=== PATIENT | male | born 1950 | race Caucasian/White ===

== ENCOUNTER 2020-06-11 17:30 | Inpatient (IN) | payer MEDICARE, SELFPAY ==
[2020-06-11 18:01] VITALS: BMI 23.7
[2020-06-11 18:13] VITALS: BMI 23.7
[2020-06-11 18:19] VITALS: BP 159/96; PULSE 84; RESP 18; TEMP 36.4; O2SAT 98
[2020-06-11 20:35] VITALS: PULSE 75; RESP 18; O2SAT 95
[2020-06-11] MEDS: Ipratropium/Albuterol Sulfate 3 ML AMPUL.NEB INHALATION (20:35)
[2020-06-11 21:30] VITALS: BP 147/93; PULSE 79; RESP 18; TEMP 37.1; O2SAT 97
[2020-06-11] MEDS: Heparin Injection (Vial) 5,000 UNIT/ML VIAL 5000 UNIT SC (21:37)
[2020-06-11] MEDS: Atorvastatin Calcium 80 MG Tablet PO (21:37)
[2020-06-11 21:43] VITALS: BP 147/93; PULSE 79
[2020-06-11] MEDS: Metoprolol Tartrate 25 MG Tablet 12.5 MG PO (21:43)
[2020-06-12] VITALS (7 sets, daily range): BP systolic 130–146; BP diastolic 87–92; PULSE 68–75; RESP 12–18; TEMP 36.5; O2SAT 94–97
[2020-06-12 05:51] LABS: Hematocrit 41.2 % (40-54); Hemoglobin 13.4 g/dL (13.0-16.5); Mean Corp Hgb Conc 32.5 g/dL (32-36); Mean Corpuscular Hgb 30.7 pg (27.0-32.0); Mean Corpuscular Volume 94.5 fL (80-94); Platelet Count 235 K/mm3 (150-450); RBC Distribution Width CV 12.1 % (11.6-14.6); RBC Distribution Width SD 41.7 fl (35.1-43.9); Red Blood Count 4.36 M/mm3 (4.6-6.2); White Blood Count 5.3 K/mm3 (4.4-11.0)
[2020-06-12] MEDS: Ipratropium/Albuterol Sulfate 3 ML AMPUL.NEB INHALATION ×3 (05:55→18:45)
[2020-06-12] MEDS: Levothyroxine 75 MCG Tablet PO (06:08)
[2020-06-12 06:25] LABS: AST(SGOT) 37 U/L (15-37); Alanine Aminotransfer ALT/SGPT 31 U/L (16-61); Albumin, Serum 2.6 g/dL (3.2-5.0); Alkaline Phosphatase 71 U/L (45-117); Anion Gap 7 (5-15); BUN 12 mg/dL (7-18); BUN/Creat Ratio 13.2 RATIO (10-20); Chloride 110 mmol/L (98-107); Creatinine, Serum 0.91 mg/dL (0.70-1.30); EST Glomerular Filtration Rate 87 mL/min (>60); Est Glom Filt Rate - Afr Amer 105 mL/min (>60); Estimated Creatinine Clearance 84.14 ml/min; Globulin 2.7 g/dL (2.2-4.2); Glucose 83 mg/dL (74-106); Magnesium 1.7 mg/dL (1.6-2.6); Phosphorus 2.7 mg/dL (2.5-4.9); Potassium 3.5 mmol/L (3.5-5.1); Protein, Total 5.3 g/dL (6.4-8.2); Sodium Level 140 mmol/L (136-145); Thyroid Stim Hormone (TSH) 7.11 uIU/mL (0.358-3.74)
[2020-06-12] MEDS: Senna/Docusate Sodium 1 Tablet PO (08:05)
[2020-06-12] MEDS: Metoprolol Tartrate 25 MG Tablet 12.5 MG PO ×2 (08:05→20:09)
[2020-06-12] MEDS: Losartan Potassium 100 MG Tablet PO (08:05)
[2020-06-12] MEDS: Multivitamins,Therapeutic Tablet 1 TABLET PO (08:05)
[2020-06-12] MEDS: Clopidogrel Bisulfate 75 MG Tablet PO (08:05)
[2020-06-12] MEDS: Heparin Injection (Vial) 5,000 UNIT/ML VIAL 5000 UNIT SC ×2 (08:06→20:12)
--- NOTE | 2020-06-12 11:44 | PCM.HP.STD ---
Problem List (1) Hypertension Status: Chronic (2) Hyperlipidemia Status: Acute (3) Chronic anticoagulation Status: Acute (4) COPD (chronic obstructive pulmonary disease) Status: Chronic (5) Left ventricular hypertrophy Status: Acute (6) Debility Status: Acute (7) Paroxysmal atrial fibrillation Status: Acute (8) Mild aortic stenosis Status: Acute (9) Coronary artery disease Status: Acute (10) History of non-ST elevation myocardial infarction (NSTEMI) Status: Chronic Comment: May 2018 (11) History of PTCA 1 Status: Chronic Comment: PTCA/OSCAR in May 2017 (12) Former smoker Status: Acute (13) Snuff user Status: Acute (14) BPH (benign prostatic hyperplasia) Status: Acute History of Present Illness Date of Admission: 06/11/20 Chief Complaint: Debility secondary to 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 Oli Correa is a 69 year old M with a past medical history of hyperlipidemia, hypertension, chronic anticoagulation with apixaban(which he was non-compliant with at the time of most recent CVA), COPD, hypothyroidism, coronary artery disease, embolic TIA in May 2017 (status post PCI) who recently presented to an ED with c/o R side weakness and right side facial droop. He received TPA in the ED and then was transferred to [facility]. Work-up showed acute infarct within the left frontal and left temporal lobes and multiple chronic lacunar infarcts within the bilateral cerebellar hemispheres. A CTA of the head and neck was concerning for possible carotid web versus dissection to the left cervical internal carotid artery. Echocardiogram showed normal left ventricular size and overall function was grossly normal. He had a transesophageal echocardiogram in May 2017 that showed a hypermobile atrial septum but was negative for shunting. LDL was high at 143 and hemoglobin A1c was 5.7. The patient was supposed to be on Eliquis and Plavix but was not taking Eliquis at the time of his most recent stroke. He was transferred to the acute inpt rehab unit at [facility] on 06/11/20 for > 3 hours of therapy daily to restore him at or near his prior level of function. I reviewed the paperwork from [facility]. He will start Apixaban on 06/13/20. Stiven tells me that he got off the Eliquis because the insurance company would not cover it and he thought Plavix did the same thing.......I explained the difference to him. He was also on a steroid inhaler at home but, insurance quit paying for that as well. He has not followed up with his fruit bar maker in quite a while because he was frustrated. His dtr told the SW she thinks he has been taking meds he had left over in the cupboard and that he was out of several medications. Past Medical History Past Medical History (Chronic Problems): Chronic Problems Hypertension (Chronic) COPD (chronic obstructive pulmonary disease) (Chronic) History of non-ST elevation myocardial infarction (NSTEMI) (Chronic) May 2018 History of PTCA 1 (Chronic) PTCA/OSCAR in May 2017 Allergies codeine Adverse Reaction (Verified 06/11/20 18:18) NEEDS FOLLOW-UP Home Medications: Ambulatory Orders Medication Instructions Recorded Albuterol Inhaler [Ventolin Hfa 2 puff INHALATION Q4H PRN PRN 06/11/20 (SP)] Atorvastatin Calcium [Lipitor] 80 mg PO QHS 06/11/20 Clopidogrel Bisulfate [Plavix] 75 mg PO DAILY 06/11/20 Ipratropium/Albuterol Sulfate 3 ml INHALATION Q4H.RT PRN 06/11/20 [Duoneb] Irbesartan [Avapro] 300 mg PO DAILY 06/11/20 Levothyroxine Sodium [Synthroid] 75 mcg PO DAILY 06/11/20 Metoprolol Tartrate [Lopressor 12.5 mg PO BID 06/11/20 (Beta Carlos)] Multivitamin 1 each PO DAILY 06/11/20 Nitroglycerin 0.4 mg SL Q5M PRN 06/11/20 Sennosides/Docusate Sodium 1 each PO BID 06/11/20 [Senna-S 8.6-50 mg Tablet] Surgical History: noncontributory Lives: Alone - private 1 story home Smoking Status: Former smoker - Quit in June 2010 Tobacco Use: Chew - occasional Alcohol: Occasional Drugs: None - *Family History Maternal History Items: No pertinent history - Maternal grandmother had hypertension. Paternal History Items: Heart Disease Review of Systems Constitutional: Denies: Chills, Fever, Weight Change Eyes: Denies: Blurred vision, Vision Change HEENT: Denies: Difficulty Hearing, Difficulty Swallowing, Head Aches, Nasal Congestion, Sinus Congestion, Sinus Drainage, Sore Throat Cardiovascular: Denies: Chest Pain, Edema, Palpitations Respiratory: Reports: Shortness of Breath, Shortness of breath upon exertion, - - he tells me he takes duonebs regularly at home and they definitely help his breathing.......he had PFT's and saw a snuff grinder and screener in the past but, not for some time. Denies: Cough, Shortness of breath at rest, Sputum production Gastrointestinal: Denies: Abdominal Pain, Nausea, Vomiting Genitourinary: Denies: Dysuria, Incontinence, Retention Musculoskeletal: Denies: Joint Pain, Joint Tenderness Skin: Denies: Jaundice, Pruritis, Rash, Wounds Neurological: Reports: Change in Speech, Slurred speech. Denies: Balance problems, Blurred vision, Double vision, Focal weakness, Headaches, Numbness, Tingling, Tremor, Seizures Psychiatric: Denies: Anxiety, Depression, Homicidal Ideations, Suicidal Ideations Endocrine: Reports: - - He has a hx of hypothyroidism. Denies: Change in Body Habitus, Heat/ Cold Intolerance Hematologic/ Lymphatic: Denies: Easy Bruising, Easy Bleeding, Hx of blood clot Unable to obtain accurate/complete ROS d/t: Speech is halting and ROS took quite a long time but I believe it to be acc VTE Information - Inpt Only VTE Present on Admission: No VTE Mechan Device Prophylaxis: Knee High ALEXANDRA Hose VTE Pharm Prophylaxis ordered?: Yes Patient Problems: Active and Suspected Problems Hyperlipidemia (Acute) Chronic anticoagulation (Acute) Left ventricular hypertrophy (Acute) Debility (Acute) Paroxysmal atrial fibrillation (Acute) Mild aortic stenosis (Acute) Coronary artery disease (Acute) Former smoker (Acute) Snuff user (Acute) BPH (benign prostatic hyperplasia) (Acute) - Physical Exam Vitals/I&O's: Vital Signs Temp Pulse Resp BP Pulse Ox 97.7 F L 68 18 146/87 H 94 06/12/20 07:38 06/12/20 08:05 06/12/20 07:38 06/12/20 08:05 06/12/20 07:38 Oxygen Delivery Method Room Air Weight: 179 lb 10.828 oz Body Mass Index (BMI) 23.7 Intake and Output for Last 24 Hours 06/10/20 06/11/20 06/12/20 23:59 23:59 23:59 Intake Total 240 / 480 600 / 600 Output Total 200 / 200 Balance 240 / 480 400 / 400 General: Alert, Cooperative, No apparent distress, Well developed, Well nourished HEENT: Atraumatic, PERRLA, EOMI, Normocephalic Oral: Moist Mucosa, No Gingival or Mucosal Lesions/ Ulcerations, - - many missing teeth Neck: Supple, No JVD, Negative Carotid Bruits, No Nodes, Trachea Midline, - - Carotids have brisk upstroke and good pulse volume bilaterally Lungs: Clear to auscultation, No rhonchi, No wheeze, No rales, Diminished, - - Not tachypneic, no respiratory distress. Cardiovascular: Regular rate, Regular Rhythm, Normal S1, Normal S2, No murmurs, No rub noted, No Gallop Abdomen: Bowel Sounds Present, Soft, Non Tender, Non-Distended, - - No guarding with palpation Extremities: No clubbing, No cyanosis, No edema, No Calf Tenderness Skin: No rashes, No breakdown Musculoskeletal: No Tenderness to Palpation of Joints or Extremities, No Muscle Wasting Neurological: Cranial nerves II-XII grossly intact, Motor Exam 5/5 strength throughout, - - Pupils are equal round reactive to light, extraocular muscles are intact, no visual field cuts. Good strength with no drift in any extremity. He has dysarthria and aphasia. The aphasia is expressive and receptive. Psych/Mental Status: Normal Affect, Appropriate Laboratory Results 06/12/20 05:33: WBC 5.3, RBC 4.36 L, Hgb 13.4, Hct 41.2, MCV 94.5 H, MCH 30.7, MCHC 32.5, RDW Std Deviation 41.7, RDW Coeff of Leyda 12.1, Plt Count 235, MPV 9.0 06/12/20 05:33: Sodium 140, Potassium 3.5, Chloride 110 H, Carbon Dioxide 23.0, Anion Gap 7, BUN 12, Creatinine 0.91, Estim Creat Clear Calc 84.14, Est GFR (MDRD) Af Amer 105, Est GFR (MDRD) Non-Af 87, BUN/Creatinine Ratio 13.2, Glucose 83, Calcium 8.0 L, Phosphorus 2.7, Magnesium 1.7, Total Bilirubin 0.70, AST 37, ALT 31, Alkaline Phosphatase 71, Total Protein 5.3 L, Albumin 2.6 L, Globulin 2.7, Albumin/Globulin Ratio 1.0, TSH 7.11 H Current Medications Acetaminophen (Acetaminophen 325 Mg Tablet) 650 mg PO Q6H PRN PRN PRN Reason: PAIN 1-10 Albuterol Sulfate (Albuterol Sulfate 8 Gm Inhaler (60 Puffs)) 2 puff INHALATION Q4H PRN PRN PRN Reason: WHEEZING Albuterol/Ipratropium (Ipratropium/Albuterol Sulfate 3 Ml Ampul.Neb) 3 ml INHALATION Q4H.RT PRN PRN Reason: WHEEZING Last Admin: 06/12/20 05:55 Dose: 3 ml Documented by: Apixaban (Apixaban 5 Mg Tablet) 5 mg PO BID [facility] Atorvastatin Calcium (Atorvastatin Calcium 80 Mg Tablet) 80 mg PO QHS [facility] Last Admin: 06/11/20 21:37 Dose: 80 mg Documented by: Bisacodyl (Bisacodyl 10 Mg Suppository) 10 mg RC .PRN X 1 PRN PRN Reason: Constipation Clopidogrel Bisulfate (Clopidogrel Bisulfate 75 Mg Tablet) 75 mg PO DAILY [facility] Last Admin: 06/12/20 08:05 Dose: 75 mg Documented by: Heparin Sodium (Porcine) (Heparin Injection (Vial) 5,000 Unit/Ml Vial) 5,000 unit SC Q12 [facility] Last Admin: 06/12/20 08:06 Dose: 5,000 unit Documented by: Levothyroxine Sodium (Levothyroxine 75 Mcg Tablet) 75 mcg PO DAILY@0600 [facility] Last Admin: 06/12/20 06:08 Dose: 75 mcg Documented by: Losartan Potassium (Losartan Potassium 100 Mg Tablet) 100 mg PO DAILY [facility] Last Admin: 06/12/20 08:05 Dose: 100 mg Documented by: Magnesium Hydroxide (Magnesium Hydroxide 30 Ml Udc) 30 ml PO .PRN X 1 PRN PRN Reason: Constipation Metoprolol Tartrate (Metoprolol Tartrate 25 Mg Tablet) 12.5 mg PO BID [facility] Last Admin: 06/12/20 08:05 Dose: 12.5 mg Documented by: Multivitamins (Multivitamins,Therapeutic Tablet) 1 tablet PO DAILY@0800 [facility] Last Admin: 06/12/20 08:05 Dose: 1 tablet Documented by: Nitroglycerin (Nitroglycerin Sl (Ed/Img/Cath) 0.4 Mg Tablet) 0.4 mg SL Q5M PRN PRN Reason: chest pain Senna/Docusate Sodium (Senna/Docusate Sodium 1 Tablet) 1 tablet PO BID [facility] Last Admin: 06/12/20 08:05 Dose: 1 tablet Documented by: Assessment/Plan All Active Problems Hyperlipidemia (Acute) Chronic anticoagulation (Acute) Left ventricular hypertrophy (Acute) Debility (Acute) Paroxysmal atrial fibrillation (Acute) Mild aortic stenosis (Acute) Coronary artery disease (Acute) Former smoker (Acute) Snuff user (Acute) BPH (benign prostatic hyperplasia) (Acute) Impression's 1. Physical debility secondary to ischemic left temporal and left frontal CVAs. He received TPA. 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 PAF 3. HTN - not adequately controlled at presentation to the rehab unit 4. HLD 5. chronic anticoagulation for AF with Eliquis (was non-compliant with eliquis at the time of the CVA because his insurance would not cover this medication.) 6. COPD 7. Hypothyroidism 8. Glucose intolerance with a HGBA1C of 5.7 recently 9. CAD with a hx of PTCA/OSCAR in May of 2017 - has not seen his fruit bar maker in a long time PLAN PT for gait stability OT for ADL's ST for evaluation Analgesics as needed Bowel protocol Fall precautions Assess for Anxiety/Depression GI prophylaxis not necessary - no hx of PUD and denies N/V/epigastric pain/heartburn DVT prophylaxis - not necessary - he is on Eliquis for PAF. Follow up with PCP, cardiology and neurology following DC from Rehab Inpatient E&M: 79535 Init Hosp L3
--- NOTE | 2020-06-12 12:14 | REHABEVAL_ITS ---
Admission Information Primary Diagnosis:: Aphasia/dysarthria and right-sided weakness secondary to recent ischemic CVA left frontal and temporal areas (left MCA distribution). Status Changes from Prescreening?: No changes Identified Actual Problem List:: Self Care Deficit, Ineffective Communication, Know.Dfct/Disease Process, BP, Hypertension, Alteration/ Air Exchange, Alteration-Leisure Activ. Potential Problem List:: DVT, Bleeding, Infection, UTI, Aspiration, Falls, Skin Integrity, Depression Risk of Complications DVT: ALEXANDRA Chisholm, - - he is on Eliquis for PAF at full dose of 5 mg BID Bleeding: Monitor Lab Values, Nursing to Teach Precautions for anti-coagulation therapy., Wound, if applicable, to be assessed every shift., Stroke patients assessed for lethargy or change in status. Infection: Clinical Staff to Monitor for S/S of infection:, S/S of infection include fever, redness, warmth, etc. Urinary Tract Infection: Monitor for frequency, burning, discomfort, or incontinence., Nursing will obtain urine sample for urinalysis and C&S when ordered. Aspiration: Clinical staff will monitor for coughing, drooling, congestion., Speech will evaluate swallowing and dsyphasia., Nursing will monitor patient swallowing during meals. Falls: Patient will be evaluated for Fall Precautions, Patient will be placed on Fall Precautions as indicated per protocol. Skin Breakdown: Nursing will assess skin daily using assessment tool., Nursing will place on Skin Breakdown Precautions as indicated. Pain: Clinical staff will assess patient's pain level per protocol., Medications will be given, if needed, and the pain level reassessed., Other methods: Mas evelyn, distraction, decrease stimulus, etc. used PRN. Plan of Care Patient requires physician specializing in physical medicine and rehab oversight to provide close medical supervision of rehab issues including: Pain Management, Sleep Problems, Bowel and Bladder, Medical and co-morbidity Management, DVT prophylaxis, Rehabilitation Leadership, Coordination of treatment team Patient needs Physical Therapy: For a minimum of 1 hour, At least 5 out of 7 days Patient needs Physical Therapy to improve:: Mobility, Mobility, Mobility, Strengthening, Transfers, Stretching, ROM, Endurance, Stairs, Gait, Balance Patient needs Occupational Therapy: For a minimum of 1 hour, At least 5 out of 7 days Patient needs Occupational Therapy to improve ADL's incl.: Eating, Grooming, Bathing, Dressing, Toileting, Toilet transfers, Community Reintegration, Higher functioning activities, Household tasks, Adaptive Equipment, Splinting, Other activities as determined Patient requires speech therapy: For a minimum of 1 hour, At least 5 out of 7 days Patient requires speech therapy for: Swallowing, Cognition, Language Skills, Compensatory Strategies Patient requires 24/ Rehabilitation Nursing for: Pain Issues, Identifying and preventing risk factors, Monitoring and reporting current medical conditions, Assisting with ambulation, transfer, and all ADL's, Teaching patients about disease process and medications, Family teaching, Providing safe environment, Bowel and Bladder Issues, Skin integrity, Medication Management Patient needs Dairy Lab Technician/ Case Management for: Discharge Planning, Arranging Home Equipment or Services, Family Interventions Patient needs Dietary and Nutrition Services for: Adequate Nutrition, Nutritional Supplements, Nutritional Education Goals Patient will remain: free from falls, or injury at time of discharge. Patient will perform bed mobility at: MOD I level of assist. Patient will complete transfers from bed to chair at: MOD I level of assist. Patient will ambulate: 100 feet, with MOD I assist, with LRD Patient will complete upper body dressing at: MOD I level of assist. Patient will complete lower body dressing at: MOD I level of assist. Patient will complete toileting at: MOD I level of assist. Patient will perform bathing at: MOD I level of assist. Patient will complete grooming at: MOD I level of assist. Patient will complete home management skills at: MOD I level of assist. Patient will achieve: 12 stairs, at MOD I assist Patient will have pain level of: of 3 or less Patient's skin will: remain intact, free from infection. Patient will receive: adequate nutrition. Discharge Planning Pt Prognosis for Sig. Practical Improv. w/in Reasonable Time: Good Estimated Length of stay (days): 14 Anticipated D/C Destination: Home with Outpt Therapy Was Preadmission Assessment Accurate?: Yes
[2020-06-12] MEDS: Potassium Chloride Oral Tablet 20 MEQ 40 MEQ PO (16:57)
[2020-06-12 17:11] LABS: T4 Free Direct 1.07 ng/dL (0.76-1.46)
[2020-06-12] MEDS: Fluticasone/Salmeterol 232-14 Inhaler 1 PUFF INHALATION (20:00)
[2020-06-12] MEDS: Atorvastatin Calcium 80 MG Tablet PO (20:09)
[2020-06-12] MEDS: Magnesium Chloride 64 MG Delay Rel.Tablet 128 MG PO (21:27)
[2020-06-13] VITALS (9 sets, daily range): BP systolic 143–158; BP diastolic 95–100; PULSE 71–89; RESP 16; TEMP 36.4–36.6; O2SAT 93–99
[2020-06-13] MEDS: 0.9% Saline Lock 10 ML Syringe IV (00:21)
[2020-06-13] MEDS: Ipratropium/Albuterol Sulfate 3 ML AMPUL.NEB INHALATION ×4 (06:45→19:15)
[2020-06-13] MEDS: Levothyroxine 75 MCG Tablet PO (06:50)
[2020-06-13] MEDS: Fluticasone/Salmeterol 232-14 Inhaler 1 PUFF INHALATION ×2 (07:40→22:42)
[2020-06-13] MEDS: Metoprolol Tartrate 25 MG Tablet 12.5 MG PO ×2 (07:41→22:40)
[2020-06-13] MEDS: APIXABAN 5 MG TABLET PO ×2 (07:44→22:42)
[2020-06-13] MEDS: Clopidogrel Bisulfate 75 MG Tablet PO (07:44)
[2020-06-13] MEDS: Senna/Docusate Sodium 1 Tablet PO ×2 (07:44→22:42)
[2020-06-13] MEDS: Potassium Chloride Oral Tablet 20 MEQ PO (07:44)
[2020-06-13] MEDS: Magnesium Chloride 64 MG Delay Rel.Tablet 128 MG PO ×2 (07:44→22:42)
[2020-06-13] MEDS: Losartan Potassium 100 MG Tablet PO (07:45)
[2020-06-13] MEDS: Heparin Injection (Vial) 5,000 UNIT/ML VIAL 5000 UNIT SC ×2 (07:45→22:42)
[2020-06-13] MEDS: Multivitamins,Therapeutic Tablet 1 TABLET PO (07:45)
--- NOTE | 2020-06-13 11:06 | NURSING ---
IV assessed at this time and noted to be red, irritated and edematous. This RN d/c's IV at this time. Area noted to be scabbed with irritation around catheter insertion site and small opening around insertion point. Area documented in shift clinical findings.
--- NOTE | 2020-06-13 14:30 | CHAPLAIN ---
Type of Pastoral Visit _x__ Initial Visit ___ Follow-up Visit ___ On-call Visit ___ General Patient Visit ___ Spiritual Assessment ___ Family Conference ___ Bereavement ___ Rapid Response ___ Code Blue ___ Other (describe below) Pastoral Care Referral From _x__ Patient ___ Family ___ Nurse ___ Physician ___ Concrete Handler ___ Social Work Msw ___ Other (describe below) Sacrament/Intervention _x__ Active listening ___ Anointing ___ Jain ___ Bereavement ___ Communion ___ Opal exploration ___ ___ Life review _x__ Prayer ___ Reconciliation ___ Sacrament of Sick _x__ Supportive presence ___ Wedding ___ Other (describe below) Pastoral Comments
--- NOTE | 2020-06-13 16:01 | CASEMGMT ---
Social Work Completed PHQ-9 with pt. Score: 10/27. Pt denied resources. Discussed antidepressant. Pt would like to have conversation with about side effects. Relayed to Explained and provided Stroke Support Group brochure to pt. Offered ongoing assistance. Pt appreciative. Margaret Marcial, LUMBER LOADER CHICKEN DRESSER
[2020-06-13] MEDS: Atorvastatin Calcium 80 MG Tablet PO (22:41)
[2020-06-14] VITALS (9 sets, daily range): BP systolic 140–159; BP diastolic 99–107; PULSE 59–88; RESP 16–18; TEMP 36.3–36.6; O2SAT 94–98
[2020-06-14] MEDS: Levothyroxine 75 MCG Tablet PO (05:00)
[2020-06-14] MEDS: Albuterol Sulfate 8 gm Inhaler (60 puffs) 2 PUFF INHALATION (05:03)
[2020-06-14] MEDS: Ipratropium/Albuterol Sulfate 3 ML AMPUL.NEB INHALATION ×4 (07:11→19:26)
[2020-06-14] MEDS: Losartan Potassium 100 MG Tablet PO (08:07)
[2020-06-14] MEDS: APIXABAN 5 MG TABLET PO ×2 (08:07→21:20)
[2020-06-14] MEDS: Fluticasone/Salmeterol 232-14 Inhaler 1 PUFF INHALATION ×2 (08:07→21:20)
[2020-06-14] MEDS: Potassium Chloride Oral Tablet 20 MEQ PO (08:07)
[2020-06-14] MEDS: Heparin Injection (Vial) 5,000 UNIT/ML VIAL 5000 UNIT SC ×2 (08:07→21:21)
[2020-06-14] MEDS: Multivitamins,Therapeutic Tablet 1 TABLET PO (08:07)
[2020-06-14] MEDS: Metoprolol Tartrate 25 MG Tablet 12.5 MG PO (08:07)
[2020-06-14] MEDS: Clopidogrel Bisulfate 75 MG Tablet PO (08:08)
[2020-06-14] MEDS: Magnesium Chloride 64 MG Delay Rel.Tablet 128 MG PO ×2 (08:08→21:22)
[2020-06-14] MEDS: amLODIPine 5 MG Tablet PO (11:34)
[2020-06-14] MEDS: Metoprolol Tartrate 25 MG Tablet PO ×2 (15:07→21:21)
[2020-06-14] MEDS: Atorvastatin Calcium 80 MG Tablet PO (21:21)
[2020-06-15] VITALS (9 sets, daily range): BP systolic 113–133; BP diastolic 59–99; PULSE 64–86; RESP 16–18; TEMP 36.5–36.6; O2SAT 92–96; BMI 23.7
--- NOTE | 2020-06-15 04:24 | NURSING ---
REVIEWED AND AGREE WITH SPINNING SUPERVISOR'S FUNCTIONAL ASSESSMENT AND HANDOFF CHARTING.
[2020-06-15] MEDS: Levothyroxine 75 MCG Tablet PO (04:58)
[2020-06-15] MEDS: Metoprolol Tartrate 25 MG Tablet PO ×3 (04:58→22:09)
[2020-06-15] MEDS: Ipratropium/Albuterol Sulfate 3 ML AMPUL.NEB INHALATION ×4 (07:00→19:50)
[2020-06-15] MEDS: Fluticasone/Salmeterol 232-14 Inhaler 1 PUFF INHALATION ×2 (07:46→22:08)
[2020-06-15] MEDS: Clopidogrel Bisulfate 75 MG Tablet PO (07:47)
[2020-06-15] MEDS: Multivitamins,Therapeutic Tablet 1 TABLET PO (07:47)
[2020-06-15] MEDS: Losartan Potassium 100 MG Tablet PO (07:47)
[2020-06-15] MEDS: Potassium Chloride Oral Tablet 20 MEQ PO (07:47)
[2020-06-15] MEDS: amLODIPine 5 MG Tablet PO (07:47)
[2020-06-15] MEDS: Heparin Injection (Vial) 5,000 UNIT/ML VIAL 5000 UNIT SC ×2 (07:47→22:09)
[2020-06-15] MEDS: Magnesium Chloride 64 MG Delay Rel.Tablet 128 MG PO ×2 (07:48→22:11)
[2020-06-15] MEDS: APIXABAN 5 MG TABLET PO ×2 (07:48→22:08)
--- NOTE | 2020-06-15 11:25 | PCM.PN.BLA ---
Progress Note Stiven was seen on team rounds today. His daughters participated in a conference call for team rounds. Afebrile VSS-blood pressures are not adequately controlled and diastolics are ranging from 92-107 over the past 3 days. Maintaining appropriate oxygen saturation on RA Oral intake is fair to adequate Discussed with nursing - no problems that need addressed Reviewed the PT/OT/ST notes the ST revealed to me that Stiven said he sometimes wakes himself up with his snoring. When he wakes up in the middle of the night snoring he feels SOB. He does not feel rested in the morning when he gets up. He has never had a sleep study. He has been depressed in the past and after the heart attack he was on an antidepressant but he later discontinued himself. He tells me that he has been reflecting on how he has been feeling and he admits that he has been depressed lately which has likely contributed to him not taking care of himself......he has not been taking his medications and not Following up with his demand planning analyst. Medication list reviewed. alert, appropriate, speech is halting and he has difficulty word finding but we were able to communicate effectively. Lungs - diminished but CTA HRRR, no gallop abd - soft and NT no edema and no calf tenderness. No GRIGGS and no CP or palpitations. Impressions 1. Embolic CVA to the L MCA with stroke in the L temporal and frontal lobes. He received TPA. He is doing very well with PT and OT. 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 2. He has in the past been on chronic anticoagulation with Eliquis but he stopped taking it when the insurance company stopped paying for it and he thought Plavix would do the job. It is not clear to me whether he has ever been diagnosed with AF. his dtr told me he was told he had a PFO but, he later had a CARY and he did not have a PFO but he had aneursymal dilation of the atrial septum. 3. CAD 4. Depression - recurrent 5. aphasia and apraxia We discussed antidepressants and I recommended zoloft because it will treat both anxiety and depression and is generally well tolerated. We discussed the side effects and then his dtr told him that she takes Zoloft and she has no adverse reactions and it helps her. He is agreeable to starting Zoloft. I then discussed MARK and how it can cause depression, chronic fatigue and AF. He is agreeable to having a sleep study post DC. will start applying oxygen at night and see if this helps with the fatigue in the AM. He has agreed to stay the entire time the insurance company has given him to get him as close to his baseline as possible prior to going home for OP ST. 30 day event monitor at [place] and he will follow up with [facility] for his cardiology care. He also requested we recommend a new PCP for him. STROKE Vital Signs/Narrative: Vital Signs Temp Pulse Resp BP Pulse Ox 06/15/20 09:26 98 F 64 16 133/99 H 94 06/15/20 07:47 64 133/99 H Inpatient E&M: 25748 Subs Hosp L2
--- NOTE | 2020-06-15 12:12 | CASEMGMT ---
Social Work IDT met with patient and three dtrs via conference call for Team meeting. Discussed patient's progress in therapy and nursing. Pt progressing well physically. Pt's major deficits are with ST with following directions, needing extra time to process, and expressive aphasia. Explained Medicare approved 14 days with EDC 06/25. The goal is for pt to DC home alone, however, discussed safety in emergency situations and being able to accurately express his speech. Pt agrees and agreeable to remain. Will ReTeam and SW to continue to follow. Margaret Marcial, SUPERVISOR AREA DIRECTOR BUSINESS TRAVEL
[2020-06-15] MEDS: Atorvastatin Calcium 80 MG Tablet PO (22:09)
[2020-06-16] VITALS (9 sets, daily range): BP systolic 117–124; BP diastolic 67–76; PULSE 68–88; RESP 16–18; TEMP 36.6–36.7; O2SAT 95–96; BMI 23.7
[2020-06-16] MEDS: Metoprolol Tartrate 25 MG Tablet PO ×3 (06:51→20:25)
[2020-06-16] MEDS: Levothyroxine 75 MCG Tablet PO (06:51)
[2020-06-16] MEDS: Losartan Potassium 100 MG Tablet PO (09:06)
[2020-06-16] MEDS: Potassium Chloride Oral Tablet 20 MEQ PO (09:06)
[2020-06-16] MEDS: Multivitamins,Therapeutic Tablet 1 TABLET PO (09:06)
[2020-06-16] MEDS: Heparin Injection (Vial) 5,000 UNIT/ML VIAL 5000 UNIT SC ×2 (09:07→20:24)
[2020-06-16] MEDS: APIXABAN 5 MG TABLET PO ×2 (09:07→20:23)
[2020-06-16] MEDS: Magnesium Chloride 64 MG Delay Rel.Tablet 128 MG PO ×2 (09:07→20:25)
[2020-06-16] MEDS: Fluticasone/Salmeterol 232-14 Inhaler 1 PUFF INHALATION ×2 (09:07→20:24)
[2020-06-16] MEDS: Clopidogrel Bisulfate 75 MG Tablet PO (09:07)
[2020-06-16] MEDS: amLODIPine 5 MG Tablet PO (09:07)
[2020-06-16] MEDS: Sertraline 50 MG Tablet PO (09:08)
[2020-06-16] MEDS: Ipratropium/Albuterol Sulfate 3 ML AMPUL.NEB INHALATION ×2 (11:37→19:54)
--- NOTE | 2020-06-16 11:43 | PCM.PN.BLA ---
Progress Note Afebrile VSS-blood pressure is well controlled now with changes in the antihypertensives. Heart rate is within normal limits. Maintaining appropriate oxygen saturation on RA Oral intake is good Discussed with nursing - no problems that need addressed Reviewed the PT/OT/ST notes Medication list reviewed. Stiven states he slept well last night. He denies headache. He started Zoloft this morning and has no complaints at this time. He denies shortness of breath, chest pain, dysuria, abdominal pain, nausea/vomiting. Alert, appropriate, appears comfortable sitting in the recliner watching TV Lungs-clear to auscultation throughout with mild decrease in air exchange Heart-regular rate and rhythm, no murmur, no gallop He has a very large resolving bruise on the lateral chest and right flank. Abdomen-soft, nontender, nondistended, no guarding with palpation No calf tenderness No peripheral edema No rashes, no skin breakdown Walking without an assistive device in the halls Impressions 1. Embolic CVA to the L MCA with stroke in the L temporal and frontal lobes. He received TPA. He is doing very well with PT and OT. 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 2. He has in the past been on chronic anticoagulation with Eliquis but he stopped taking it when the insurance company stopped paying for it and he thought Plavix would do the job. It is not clear to me whether he has ever been diagnosed with AF. his dtr told me he was told he had a PFO but, he later had a CARY and he did not have a PFO but he had aneursymal dilation of the atrial septum. 3. CAD 4. Depression - recurrent 5. aphasia and apraxia 6. snores and wakes himself up at night snoring.....SOB when he wakes up. 7. COPD Continue Zoloft He is now being on Advair every 12 hours for a few days so will discontinue scheduled DuoNeb aerosols but keep them every 4 hours as needed wheezing or shortness of breath. Continue speech therapy Needs a sleep study and PFTs/follow-up with pulmonary medicine following discharge 30-day event monitor at discharge STROKE Vital Signs/Narrative: Vital Signs Temp Pulse Resp BP Pulse Ox 06/16/20 08:07 98 F 68 18 117/76 95 Inpatient E&M: 67462 Subs Hosp L2
[2020-06-16] MEDS: Atorvastatin Calcium 80 MG Tablet PO (20:24)
[2020-06-17] VITALS (7 sets, daily range): BP systolic 135–143; BP diastolic 86–95; PULSE 60–78; RESP 16; TEMP 36.4; O2SAT 94–96; BMI 23.7
[2020-06-17] MEDS: Levothyroxine 75 MCG Tablet PO (05:59)
[2020-06-17] MEDS: Metoprolol Tartrate 25 MG Tablet PO ×3 (06:01→21:44)
[2020-06-17] MEDS: Fluticasone/Salmeterol 232-14 Inhaler 1 PUFF INHALATION ×2 (08:35→21:44)
[2020-06-17] MEDS: Potassium Chloride Oral Tablet 20 MEQ PO (08:35)
[2020-06-17] MEDS: Magnesium Chloride 64 MG Delay Rel.Tablet 128 MG PO ×2 (08:35→21:45)
[2020-06-17] MEDS: amLODIPine 5 MG Tablet PO (08:36)
[2020-06-17] MEDS: Multivitamins,Therapeutic Tablet 1 TABLET PO (08:36)
[2020-06-17] MEDS: APIXABAN 5 MG TABLET PO ×2 (08:37→21:44)
[2020-06-17] MEDS: Losartan Potassium 100 MG Tablet PO (08:37)
[2020-06-17] MEDS: Clopidogrel Bisulfate 75 MG Tablet PO (08:37)
[2020-06-17] MEDS: Sertraline 50 MG Tablet PO (08:37)
[2020-06-17] MEDS: Ipratropium/Albuterol Sulfate 3 ML AMPUL.NEB INHALATION ×2 (12:40→20:30)
[2020-06-17] MEDS: Atorvastatin Calcium 80 MG Tablet PO (21:44)
[2020-06-18] VITALS (7 sets, daily range): BP systolic 120–122; BP diastolic 63–79; PULSE 65–89; RESP 16; TEMP 35.8–37; O2SAT 95–96; BMI 23.7
--- NOTE | 2020-06-18 04:32 | NURSING ---
REVIEWED AND AGREE WITH STOCK CLIPPER'S FUNCTIONAL ASSESSMENT AND HANDOFF CHARTING.
[2020-06-18] MEDS: Levothyroxine 75 MCG Tablet PO (05:55)
[2020-06-18] MEDS: Metoprolol Tartrate 25 MG Tablet PO ×3 (05:55→21:35)
[2020-06-18] MEDS: Ipratropium/Albuterol Sulfate 3 ML AMPUL.NEB INHALATION ×2 (07:30→17:38)
[2020-06-18] MEDS: Potassium Chloride Oral Tablet 20 MEQ PO (08:57)
[2020-06-18] MEDS: Losartan Potassium 100 MG Tablet PO (08:57)
[2020-06-18] MEDS: amLODIPine 5 MG Tablet PO (08:58)
[2020-06-18] MEDS: Magnesium Chloride 64 MG Delay Rel.Tablet 128 MG PO ×2 (08:58→21:35)
[2020-06-18] MEDS: Multivitamins,Therapeutic Tablet 1 TABLET PO (08:59)
[2020-06-18] MEDS: APIXABAN 5 MG TABLET PO ×2 (08:59→21:35)
[2020-06-18] MEDS: Sertraline 50 MG Tablet PO (08:59)
[2020-06-18] MEDS: Fluticasone/Salmeterol 232-14 Inhaler 1 PUFF INHALATION ×2 (09:00→21:35)
[2020-06-18] MEDS: Clopidogrel Bisulfate 75 MG Tablet PO (09:00)
[2020-06-18] MEDS: Atorvastatin Calcium 80 MG Tablet PO (21:35)
[2020-06-19 00:04] VITALS: BMI 23.7
[2020-06-19 06:07] VITALS: BP 131/69; PULSE 66
[2020-06-19] MEDS: Metoprolol Tartrate 25 MG Tablet PO ×3 (06:07→20:48)
[2020-06-19] MEDS: Levothyroxine 75 MCG Tablet PO (06:08)
[2020-06-19] MEDS: Potassium Chloride Oral Tablet 20 MEQ PO (07:45)
[2020-06-19] MEDS: Multivitamins,Therapeutic Tablet 1 TABLET PO (07:45)
[2020-06-19] MEDS: Losartan Potassium 100 MG Tablet PO (07:45)
[2020-06-19] MEDS: Magnesium Chloride 64 MG Delay Rel.Tablet 128 MG PO ×2 (07:46→20:47)
[2020-06-19] MEDS: Clopidogrel Bisulfate 75 MG Tablet PO (07:46)
[2020-06-19] MEDS: amLODIPine 5 MG Tablet PO (07:46)
[2020-06-19] MEDS: Fluticasone/Salmeterol 232-14 Inhaler 1 PUFF INHALATION ×2 (07:46→20:46)
[2020-06-19] MEDS: Sertraline 50 MG Tablet PO (07:48)
[2020-06-19] MEDS: APIXABAN 5 MG TABLET PO ×2 (07:48→20:47)
[2020-06-19 08:36] VITALS: BP 131/69; PULSE 66; RESP 17; TEMP 36.6; O2SAT 95
[2020-06-19 10:00] VITALS: PULSE 71; RESP 16
[2020-06-19] MEDS: Ipratropium/Albuterol Sulfate 3 ML AMPUL.NEB INHALATION (10:00)
--- NOTE | 2020-06-19 10:09 | CASEMGMT ---
Social Work Left message with dtr to discuss DC plans. IDT recommending 23/09 supervision and pt to DC 06/25. Will continue to follow. Margaret Marcial, STAFF CERTIFIED NURSE MIDWIFE POWER EQUIPMENT MECHANICS INSTRUCTOR
--- NOTE | 2020-06-19 13:51 | CASEMGMT ---
Social Work Dtr returned phone call. Discussed DC plans. Inquired about 23/09 supervision at DC. Dtr stated she just quit her job to go back to school multimedia instructional designer, thus, the pt can DC home with her. The times she is not home or available, her sister lives close by and can assist with pt. Inquired about outpatient ST vs C. Dtr able to transport to [facility], [facility]. SW will make referral. Will ReTeam and finalize DC date and plans. Margaret Marcial ,WELDER FITTER APPRENTICE DIRECTOR FURNITURE
[2020-06-19 14:16] VITALS: BP 106/65; PULSE 70
[2020-06-19 14:44] VITALS: BMI 23.7
[2020-06-19 19:34] VITALS: BP 132/84; PULSE 57; RESP 18; TEMP 36.4; O2SAT 95
[2020-06-19] MEDS: Atorvastatin Calcium 80 MG Tablet PO (20:47)
[2020-06-19 20:48] VITALS: BP 132/84; PULSE 57
[2020-06-19 23:10] VITALS: BMI 23.7
[2020-06-20] VITALS (7 sets, daily range): BP systolic 118–129; BP diastolic 63–83; PULSE 60–86; RESP 16–18; TEMP 36.8–36.9; O2SAT 93–99; BMI 23.7
--- NOTE | 2020-06-20 04:46 | NURSING ---
Reviewed and agree with HEAVY EQUIPMENT SERVICE MANAGER documentation and charting.
[2020-06-20] MEDS: Levothyroxine 75 MCG Tablet PO (05:49)
[2020-06-20] MEDS: Metoprolol Tartrate 25 MG Tablet PO ×3 (05:49→20:50)
[2020-06-20] MEDS: Ipratropium/Albuterol Sulfate 3 ML AMPUL.NEB INHALATION ×2 (06:47→16:25)
[2020-06-20] MEDS: Clopidogrel Bisulfate 75 MG Tablet PO (09:14)
[2020-06-20] MEDS: Magnesium Chloride 64 MG Delay Rel.Tablet 128 MG PO ×2 (09:14→20:51)
[2020-06-20] MEDS: APIXABAN 5 MG TABLET PO ×2 (09:14→20:51)
[2020-06-20] MEDS: Potassium Chloride Oral Tablet 20 MEQ PO (09:14)
[2020-06-20] MEDS: Losartan Potassium 100 MG Tablet PO (09:14)
[2020-06-20] MEDS: Multivitamins,Therapeutic Tablet 1 TABLET PO (09:14)
[2020-06-20] MEDS: amLODIPine 5 MG Tablet PO (09:14)
[2020-06-20] MEDS: Fluticasone/Salmeterol 232-14 Inhaler 1 PUFF INHALATION ×2 (09:15→20:50)
[2020-06-20] MEDS: Sertraline 50 MG Tablet PO (09:22)
[2020-06-20] MEDS: Atorvastatin Calcium 80 MG Tablet PO (20:51)
[2020-06-21] VITALS (8 sets, daily range): BP systolic 105–116; BP diastolic 67–80; PULSE 62–69; RESP 16–18; TEMP 36.4–36.8; O2SAT 93–99; BMI 23.7
--- NOTE | 2020-06-21 00:53 | NURSING ---
Reviewed and agree with DIRECTOR OF REIMBURSEMENT documentation and charting.
[2020-06-21] MEDS: Metoprolol Tartrate 25 MG Tablet PO ×3 (05:11→19:47)
[2020-06-21] MEDS: Levothyroxine 75 MCG Tablet PO (05:11)
[2020-06-21] MEDS: Ipratropium/Albuterol Sulfate 3 ML AMPUL.NEB INHALATION ×2 (06:03→14:52)
[2020-06-21] MEDS: Sertraline 50 MG Tablet PO (07:56)
[2020-06-21] MEDS: Multivitamins,Therapeutic Tablet 1 TABLET PO (07:56)
[2020-06-21] MEDS: Magnesium Chloride 64 MG Delay Rel.Tablet 128 MG PO ×2 (07:56→19:48)
[2020-06-21] MEDS: APIXABAN 5 MG TABLET PO ×2 (07:56→19:48)
[2020-06-21] MEDS: Losartan Potassium 100 MG Tablet PO (07:56)
[2020-06-21] MEDS: Clopidogrel Bisulfate 75 MG Tablet PO (07:57)
[2020-06-21] MEDS: Potassium Chloride Oral Tablet 20 MEQ PO (07:57)
[2020-06-21] MEDS: Fluticasone/Salmeterol 232-14 Inhaler 1 PUFF INHALATION ×2 (07:57→19:48)
[2020-06-21] MEDS: amLODIPine 5 MG Tablet PO (07:57)
--- NOTE | 2020-06-21 09:44 | PCM.PN.BLA ---
Progress Note Afebrile VSS-blood pressure is well controlled Maintaining appropriate oxygen saturation on RA Oral intake is good Discussed with nursing - no problems that need addressed Reviewed the PT/OT/ST notes. Doing incredibly well with PT and OT. Has ambulated >2,000 ft on various surfaces with no AD and no LOB. He has ascended and descended 20 steps with no HR and no LOB. He is progressing with ST but having trouble with comprehension yet and leif with numbers per the pt. Medication list reviewed. Denies GRIGGS, N/v/lightheadedness, CP SOB, cough. Sleeping and eating well. Wants things to progress faster but, realizes he is making progress and it is going to take time. Less trouble word finding when having a conversation with me. Alert and oriented X 3. 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 snores loudly and STOP BANG score puts him at high risk for MARK 4. CAD 5. COPD 6. Depression 7. PAF - ? related to untreated sleep apnea? Continue therapy get him scheduled for an OP sleep study post discharge continue therapy Continue the Zoloft - he is tolerating without adverse side effects STROKE Vital Signs/Narrative: Vital Signs Temp Pulse Resp BP Pulse Ox 06/21/20 08:02 97.5 F L 62 16 116/80 93 06/21/20 06:04 65 16 Inpatient E&M: 68213 Subs Hosp L2
[2020-06-21] MEDS: Atorvastatin Calcium 80 MG Tablet PO (19:47)
[2020-06-22 05:22] VITALS: BP 147/82; PULSE 66
[2020-06-22] MEDS: Metoprolol Tartrate 25 MG Tablet PO (05:22)
[2020-06-22] MEDS: Levothyroxine 75 MCG Tablet PO (05:22)
[2020-06-22 06:34] VITALS: PULSE 56; RESP 12
[2020-06-22] MEDS: Ipratropium/Albuterol Sulfate 3 ML AMPUL.NEB INHALATION ×2 (06:34→13:42)
[2020-06-22] MEDS: Losartan Potassium 100 MG Tablet PO (07:50)
[2020-06-22] MEDS: Sertraline 50 MG Tablet PO (07:50)
[2020-06-22] MEDS: Multivitamins,Therapeutic Tablet 1 TABLET PO (07:50)
[2020-06-22] MEDS: Fluticasone/Salmeterol 232-14 Inhaler 1 PUFF INHALATION ×2 (07:50→21:07)
[2020-06-22] MEDS: Potassium Chloride Oral Tablet 20 MEQ PO (07:50)
[2020-06-22] MEDS: amLODIPine 5 MG Tablet PO (07:50)
[2020-06-22] MEDS: Clopidogrel Bisulfate 75 MG Tablet PO (07:50)
[2020-06-22] MEDS: Magnesium Chloride 64 MG Delay Rel.Tablet 128 MG PO ×2 (07:50→21:08)
[2020-06-22] MEDS: APIXABAN 5 MG TABLET PO ×2 (07:50→21:09)
[2020-06-22 07:54] VITALS: BP 147/82; PULSE 64; RESP 16; TEMP 36.2; O2SAT 94
[2020-06-22 09:56] VITALS: BMI 23.7
--- NOTE | 2020-06-22 11:06 | PCM.PN.BLA ---
Progress Note Stiven was seen on TEAM rounds today. His dtr Kailey was present in the room and his other daughters participated by conference call. Afebrile VSS Maintaining appropriate oxygen saturation on RA Oral intake is good He is sleeping well at night Discussed with nursing - no problems that need addressed Reviewed the PT/OT/ST notes Medication list reviewed. Stiven has no complaints today. He is smiling and talkative. He is enunciating much better and has less difficulty with word finding. Lungs - decreased but CTA HRRR - no gallop and no MM abd - soft and NT no edema no rashes and no calf pain Impressions 1. post stroke debility 2. COPD 3. anxiety/depression 4. HTN 5. CAD 6. allergic rhinitis - takes Benadryl frequently in the spring and summer Family asked about tier 2 vs tier 1 drugs......will send a med list down to the retail pharmacy and hve them check for insurance coverage. Try Atrovent nasal spray for rhinitis - I explained to him that antihistamines are a high risk drug on the Beer's criteria and I would prefer trying something topical so it does not interfere with cognition. Plan DC for Friday. He will be staying with Kailey until he is safe to go home by himself. [facility] Schedule an appt with Dr. Lanier to be his new PCP sleep study as OP STROKE Vital Signs/Narrative: Vital Signs Temp Pulse Resp BP Pulse Ox 06/22/20 07:54 97.2 F L 64 16 147/82 H 94 Inpatient E&M: [id number] Subs Hosp L2
--- NOTE | 2020-06-22 12:51 | CASEMGMT ---
Addendum entered by Margaret Marcial 06/23/20 08:49: requested Palliative consult. Referral made to [facility]. Left message with dtr to get address and notify Palliative will contact her to schedule first appt. Original Note: Social Work IDT met with patient and dtr for Team meeting. Discussed patient's progress in therapy and nursing. Pt is progressing well and focusing on ST tasks. Pt is discharging home to dtr's house where he will receive 23/09 supervision. Discussed outpatient ST - pt and dtr requesting [facility]. Referral made for ST. Provided counseling list. No DME needs. IDT agreeable to DC 06/24. Plan: DC to dtr's home 06/24, [facility]
[2020-06-22 13:42] VITALS: PULSE 89; RESP 12
[2020-06-22 21:00] VITALS: BP 101/65; PULSE 69; RESP 18; TEMP 36.1; O2SAT 100; BMI 23.7
[2020-06-22] MEDS: Ipratropium Bromide 0.06% NASAL SPRAY 2 SPRAY NASAL (21:07)
[2020-06-22 21:08] VITALS: BP 124/75; PULSE 65
[2020-06-22] MEDS: Atorvastatin Calcium 80 MG Tablet PO (21:08)
[2020-06-22] MEDS: Metoprolol(XL)Succ 50 MG Tablet PO (21:08)
[2020-06-23] MEDS: Levothyroxine 75 MCG Tablet PO (05:12)
[2020-06-23 05:26] VITALS: PULSE 64; RESP 16
[2020-06-23] MEDS: Ipratropium/Albuterol Sulfate 3 ML AMPUL.NEB INHALATION ×2 (05:26→16:32)
[2020-06-23 05:57] LABS: Anion Gap 6 (5-15); BUN 24 mg/dL (7-18); BUN/Creat Ratio 21.6 RATIO (10-20); Calcium,Total 8.3 mg/dL (8.5-10.1); Chloride 108 mmol/L (98-107); Creatinine, Serum 1.11 mg/dL (0.70-1.30); EST Glomerular Filtration Rate 69 mL/min (>60); Est Glom Filt Rate - Afr Amer 84 mL/min (>60); Estimated Creatinine Clearance 68.98 ml/min; Glucose 88 mg/dL (74-106); Potassium 4.4 mmol/L (3.5-5.1); Sodium Level 137 mmol/L (136-145)
[2020-06-23] MEDS: Clopidogrel Bisulfate 75 MG Tablet PO (07:29)
[2020-06-23] MEDS: Fluticasone/Salmeterol 232-14 Inhaler 1 PUFF INHALATION ×2 (07:29→22:34)
[2020-06-23] MEDS: APIXABAN 5 MG TABLET PO ×2 (07:29→22:36)
[2020-06-23] MEDS: Sertraline 50 MG Tablet 100 MG PO (07:29)
[2020-06-23] MEDS: Potassium Chloride Oral Tablet 20 MEQ PO (07:30)
[2020-06-23] MEDS: Magnesium Chloride 64 MG Delay Rel.Tablet 128 MG PO ×2 (07:30→22:35)
[2020-06-23] MEDS: Ipratropium Bromide 0.06% NASAL SPRAY 2 SPRAY NASAL ×2 (07:30→22:33)
[2020-06-23] MEDS: amLODIPine 5 MG Tablet PO (07:30)
[2020-06-23] MEDS: Multivitamins,Therapeutic Tablet 1 TABLET PO (07:30)
[2020-06-23] MEDS: Losartan Potassium 100 MG Tablet PO (07:30)
[2020-06-23 08:02] VITALS: BP 119/72; PULSE 59; RESP 16; TEMP 37.1; O2SAT 95
[2020-06-23 08:38] VITALS: BMI 23.7
--- NOTE | 2020-06-23 12:48 | PCM.DC ---
- Discharge Diagnoses Current Active Problems: Current Active and Chronic Problems Hypertension (Chronic) Hyperlipidemia (Acute) Chronic anticoagulation (Acute) COPD (chronic obstructive pulmonary disease) (Chronic) Left ventricular hypertrophy (Acute) Debility (Acute) Paroxysmal atrial fibrillation (Acute) Mild aortic stenosis (Acute) Coronary artery disease (Acute) History of non-ST elevation myocardial infarction (NSTEMI) (Chronic) May 2018 History of PTCA 1 (Chronic) PTCA/OSCAR in May 2017 Former smoker (Acute) Snuff user (Acute) BPH (benign prostatic hyperplasia) (Acute) You will use the following diet at home:: Cardiac - low fat and low salt Your food should be the consistency of: Regular Your liquids should be the consistency of: Regular/Thin Discharge Activity: May Not Drive, May Shower, - - Do not operate any heavy machinery or anything that can injure you......like a [employer]. May resume sexual activity in: No Restrictions Weight Bearing Status: Full weight bearing Call your doctor if you observe: Fever of 101 or Higher, Shortness of breath, Dizziness, Fainting spells, Swelling in the ankles, Chest pain, Increased palpitations (irregular heartbeat), Calf discomfort, - - Call your family doctor if any unusual bleeding such as bleeding from the gums, blood from the anus, blood in the urine, nose bleeds, large bruises or bleeding from the vagina if female. Instructions: What Is Atrial Flutter/Atrial Fibrillation?, Mood Swings and Depression After a Stroke, Depression Affects Your Mind and Body, Counseling for Depression, Depression: Tips to Help Yourself, Rivaroxaban Oral tablet Additional Instructions: 1. Do not do anything your daughters consider dangerous....including bungee jumping, hang gliding, parachuting, operating a [employer], etc. If you have any doubt about whether an activity is safe ask Kailey! Consider golfing and fishing more often! 2. It is very important to keep your BP controlled. If you think you are having an adverse reaction to a medication do not stop it.......call your doctor and discuss it. If your insurance quits paying for a medication call your doctor and talk about alternatives. 3. Take the Xarelto at the same time every day. You have to take a loading dose for the first couple weeks and you will be taking 1 pill every 12 hours. After the Loading period is done you will take it once a day. 4. Take care of yourself.....you have a very supportive family who want to see you be around for a long time. You have now had 2 strokes.......let's shoot for no more OK. 5. Drink more water. your lab on Friday shows you are dehydrated and this will decrease the blood flow to the brain and make you feel tired. you have to drink enough water everyday to keep your urine pale yellow. 6. It has been a pleasure getting to know you Ray. If you have any questions after you leave the rehab unit please do not hesitate to call me at [phone] (cell) or [phone] (office). Enjoy life.......you do NOT always have to be productive......go catch fish. I will send a copy of the discharge summary I do to Dr. Lanier. Pending Tests on Discharge: none Allergies/Adverse Reactions: Allergies codeine Adverse Reaction (Verified 06/11/20 18:18) NEEDS FOLLOW-UP Medications to take at Discharge Multivitamin 1 each PO DAILY 06/11/20 Acetaminophen [Tylenol Tablet] 650 mg PO Q6H PRN PRN tablet 06/22/20 Albuterol Inhaler [Ventolin Hfa] 2 puff INHALATION Q4H PRN PRN 30 Days #1 udc 06/22/20 Amlodipine [Norvasc] 5 mg PO DAILY #30 tablet 06/22/20 Atorvastatin Calcium [Lipitor] 80 mg PO QHS #30 tablet 06/22/20 Budesonide/Formoterol 160/4.5 [Symbicort 160-4.5 Mcg Inhaler] 10.2 gm IH Q12H #1 hfa.aer.ad 06/22/20 Clopidogrel Bisulfate [Plavix] 75 mg PO DAILY #30 tablet 06/22/20 Ipratropium [place] 0.06% [ATROVENT NASAL SPRAY (g)] 2 spray NASAL TID #1 bottle 06/22/20 Ipratropium/Albuterol Sulfate [Duoneb] 3 ml INHALATION Q4H.RT PRN #90 06/22/20 Levothyroxine Sodium [Synthroid] 75 mcg PO DAILY #30 tablet 06/22/20 Losartan Potassium [Cozaar] 100 mg PO DAILY #30 tablet 06/22/20 Magnesium Chloride [Slow-Mag] 71.5 mg PO BID #60 tablet.dr 06/22/20 Metoprolol(XL)Succ [Toprol Xl (Beta Carlos)] 50 mg PO QHS #30 tab 06/22/20 Nitroglycerin 0.4 mg SL Q5M PRN #1 bottle 06/22/20 Potassium Chloride Oral Tablet [K-Dur] 20 meq PO DAILYCM #30 tablet 06/22/20 Rivaroxaban [Xarelto] 1 each PO UD #1 tab.ds.pk 06/22/20 Sertraline HCl 100 mg PO DAILY #30 tablet 06/22/20 The following prescriptions were given: Ipratropium [place] 0.06% [ATROVENT NASAL SPRAY (g)] 2 spray NASAL TID #1 bottle Transmission Status: Received by [facility] Losartan Potassium [Cozaar] 100 mg PO DAILY #30 tablet Transmission Status: Received by [facility] Ipratropium/Albuterol Sulfate [Duoneb] 3 ml INHALATION Q4H.RT PRN #90 PRN Reason: Wheezing Potassium Chloride Oral Tablet [K-Dur] 20 meq PO DAILYCM #30 tablet Transmission Status: Received by [facility] Atorvastatin Calcium [Lipitor] 80 mg PO QHS #30 tablet Transmission Status: Received by [facility] Nitroglycerin 0.4 mg SL Q5M PRN #1 bottle PRN Reason: chest pain Transmission Status: Received by [facility] Amlodipine [Norvasc] 5 mg PO DAILY #30 tablet Transmission Status: Received by [facility] Clopidogrel Bisulfate [Plavix] 75 mg PO DAILY #30 tablet Transmission Status: Received by [facility] Sertraline HCl 100 mg PO DAILY #30 tablet Transmission Status: Received by [facility] Magnesium Chloride [Slow-Mag] 71.5 mg PO BID #60 tablet.dr Transmission Status: Received by [facility] Budesonide/Formoterol 160/4.5 [Symbicort 160-4.5 Mcg Inhaler] 10.2 gm IH Q12H #1 hfa.aer.ad Transmission Status: Received by [facility] Levothyroxine Sodium [Synthroid] 75 mcg PO DAILY #30 tablet Transmission Status: Received by [facility] Metoprolol(XL)Succ [Toprol Xl (Beta Carlos)] 50 mg PO QHS #30 tab Transmission Status: Received by [facility] Albuterol Inhaler [Ventolin Hfa] 2 puff INHALATION Q4H PRN PRN 30 Days #1 udc PRN Reason: Wheezing Transmission Status: Received by [facility] Rivaroxaban [Xarelto] 1 each PO UD #1 tab.ds.pk Transmission Status: Received by [facility] Orders to be completed after discharge: Polysomnography [SL] Time Frame: 1 Week, Facility: [facility], Location: [facility] Primary Care Physician: Miquel Chapman MD [Primary Care Provider] - Test Results: Test results from this visit will be discussed in further detail at your follow-up appointment, if applicable. Please Follow Up With: Dr Lanier-PCP When: Friday Please Follow Up With: Dr Ocampo-Pulmonary When: Friday Please Follow Up With: Mark Philip MD (Classifier Tender) When: Friday Please Follow Up With: Dr. Oli Garcia When: Friday Please Follow Up With: Sleep Study When: Friday When: [facility]-Speech therapy Proposed Discharge Date: 06/24/20
--- NOTE | 2020-06-23 13:15 | DS.PCM_ITS ---
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 He received TPA. He has persistent aphasia. Depression Borderline low potassium and magnesium Elevated TSH with a normal T4 Suspected Problems: Obstructive sleep apnea - Secondary Discharge Diagnosis Chronic Problems: Chronic Problems Hypertension (Chronic) COPD (chronic obstructive pulmonary disease) (Chronic) History of non-ST elevation myocardial infarction (NSTEMI) (Chronic) May 2018 History of PTCA 1 (Chronic) PTCA/OSCAR in May 2017 Hyperlipidemia Chronic anticoagulation Left ventricular hypertrophy Paroxysmal atrial fibrillation Mild aortic stenosis Coronary artery disease Former smoker Snuff user BPH (benign prostatic hyperplasia) Hospital Course and Treatment Imaging Results: Laboratory Last Values WBC 5.3 K/mm3 (4.4-11.0) 06/12/20 05:33 RBC 4.36 M/mm3 (4.6-6.2) L 06/12/20 05:33 Hgb 13.4 g/dL (13.0-16.5) 06/12/20 05:33 Hct 41.2 % (40-54) 06/12/20 05:33 MCV 94.5 fL (80-94) H 06/12/20 05:33 MCH 30.7 pg (27.0-32.0) 06/12/20 05:33 MCHC 32.5 g/dL (32-36) 06/12/20 05:33 RDW Std Deviation 41.7 fl (35.1-43.9) 06/12/20 05:33 RDW Coeff of Leyda 12.1 % (11.6-14.6) 06/12/20 05:33 Plt Count 235 K/mm3 (150-450) 06/12/20 05:33 MPV 9.0 fl (6.2-12.0) 06/12/20 05:33 Sodium 137 mmol/L (136-145) 06/23/20 05:30 Potassium 4.4 mmol/L (3.5-5.1) 06/23/20 05:30 Chloride 108 mmol/L (98-107) H 06/23/20 05:30 Carbon Dioxide 23.0 mmol/L (21.0-32.0) 06/23/20 05:30 Anion Gap 6 (5-15) 06/23/20 05:30 BUN 24 mg/dL (7-18) H 06/23/20 05:30 Creatinine 1.11 mg/dL (0.70-1.30) 06/23/20 05:30 Estim Creat Clear Calc 68.98 ml/min 06/23/20 05:30 Est GFR (MDRD) Af Amer 84 mL/min (>60) 06/23/20 05:30 Est GFR (MDRD) Non-Af 69 mL/min (>60) 06/23/20 05:30 BUN/Creatinine Ratio 21.6 RATIO (10-20) H 06/23/20 05:30 Glucose 88 mg/dL (74-106) 06/23/20 05:30 Calcium 8.3 mg/dL (8.5-10.1) L 06/23/20 05:30 Phosphorus 2.7 mg/dL (2.5-4.9) 06/12/20 05:33 Magnesium 2.0 mg/dL (1.6-2.6) 06/23/20 05:30 Total Bilirubin 0.70 mg/dL (0.20-1.00) 06/12/20 05:33 AST 37 U/L (15-37) 06/12/20 05:33 ALT 31 U/L (16-61) 06/12/20 05:33 Alkaline Phosphatase 71 U/L (45-117) 06/12/20 05:33 Total Protein 5.3 g/dL (6.4-8.2) L 06/12/20 05:33 Albumin 2.6 g/dL (3.2-5.0) L 06/12/20 05:33 Globulin 2.7 g/dL (2.2-4.2) 06/12/20 05:33 Albumin/Globulin Ratio 1.0 RATIO (0.9-2.4) 06/12/20 05:33 TSH 7.11 uIU/mL (0.358-3.74) H 06/12/20 05:33 Free T4 1.07 ng/dL (0.76-1.46) 06/12/20 05:33 Palliative care Operations: None Procedures: None Summary of Care Provided: Oli Correa is a 69 year old M with a past medical history of hyperlipidemia, hypertension, chronic anticoagulation with apixaban(which he was non-compliant with at the time of most recent CVA), COPD, hypothyroidism, coronary artery disease, embolic TIA in May 2017 (status post PCI) who recently presented to an ED with c/o R side weakness and right side facial droop. He received TPA in the ED and then was transferred to [facility]. Work-up sh owed acute infarct within the left frontal and left temporal lobes and multiple chronic lacunar infarcts within the bilateral cerebellar hemispheres. A CTA of the head and neck was concerning for possible carotid web versus dissection to the left cervical internal carotid artery. Echocardiogram showed normal left ventricular size and overall function was grossly normal. He had a transesophageal echocardiogram in May 2017 that showed a hypermobile atrial septum but was negative for shunting. LDL was high at 143 and hemoglobin A1c was 5.7. The patient was supposed to be on Eliquis and Plavix but was not taking Eliquis at the time of his most recent stroke because the insurance company would not pay for the Eliquis. He also quit using Advair because insurance did not cover. He was transferred to the acute inpt rehab unit at [facility] on 06/11/20 for > 3 hours of therapy daily to restore him at or near his prior level of function. Stiven had no significant defects in strength on the R side and he did very well with PT/OT from the beginning. His primary deficit is with speech/cognition. 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 He has difficulty reading and with numbers. He will need assistance for medications and for managing his finances at least initially following discharge. He will be staying with his dtr Kailey when he dis charges. Stiven admitted to me that he was feeling depressed prior to the stroke and this certainly may have contributed to non-compliance with medications and with physician follow up. He feels anxious and overwhelmed at times and has trouble venting. He holds everything inside. He went through depression after his NC and was on medication for a brief time but, he never had counselling. He feels driven to be productive and is still working at the age of 69. He was agreeable to starting a medication and he was started on Sertraline 50 mg which he tolerated well. The dose was increased to 100 mg prior to DC. He thinks he will follow up for counselling post DC. Stiven's daughter told me that he snores loudly and Stiven himself says he wakes himself up snoring. His STOP BANG score puts him at high risk for MARK. A requisition for a sleep study was put in for him prior to DC and he is going to follow up with Dr. Oskar Ocampo for COPD and suspected MARK. Stiven is going to follow up with Dr. Sarah Lanier for primary care and with Dr. Garcia for neurology. He will continue to follow up with Dr. Philip for cardiology. Stiven was discharged on 06/24/20 in good condition. He is ambulating > 2,000 feet on various surfaces with no assistive device and no LOB. He can ascend and descend 20 steps in a reciprocal fashion with no hand rails. He is independent with ADL's. Adjusting the Levothyroxine dose to keep the TSH < 3 was deferred to his PCP. I was not sure at admission whether he was consistently taking the thyroid supplement and thought it best to recheck the TSH in 6 weeks after he had consistently been taking the medication to see if the TSH is still elevated. Alert, cooperative, no apparent distress, well-developed, well-nourished, making good eye contact. Mucous membranes are dry and the patient was encouraged to increase his water intake to keep his urine a pale yellow Negative carotid bruits, no JVD Lungs - diminished but CTA H - RRR, no MM appreciated and no gallop abd - soft and NT with no bruits no edema, no cyanosis, no calf tenderness no rashes and no skin breakdown 5/5 strength in all extremities, no ataxia, no visual field cuts, no neglect, + trouble word finding This note was generated with SphereUpation software. It may contain incorrect words, spelling, and punctuation that were not noted in checking the note before signing. Patient Problems: Active and Suspected Problems Hyperlipidemia (Acute) Chronic anticoagulation (Acute) Left ventricular hypertrophy (Acute) Debility (Acute) Paroxysmal atrial fibrillation (Acute) Mild aortic stenosis (Acute) Coronary artery disease (Acute) Former smoker (Acute) Snuff user (Acute) BPH (benign prostatic hyperplasia) (Acute) - Physical Exam Vitals/I&O's: Vital Signs Temp Pulse Resp BP Pulse Ox 98.7 F 59 L 16 119/72 95 06/23/20 08:02 06/23/20 08:02 06/23/20 08:02 06/23/20 08:02 06/23/20 08:02 Oxygen Delivery Method Room Air Weight: 176 lb 2.389 oz Body Mass Index (BMI) 23.7 Intake and Output for Last 24 Hours 06/21/20 06/22/20 06/23/20 23:59 23:59 23:59 Intake Total 1360 / 1360 1340 / 1340 120 / 120 Output Total 350 / 350 250 / 250 Balance 1010 / 1010 1090 / 1090 120 / 120 Laboratory Results 06/23/20 05:30: Sodium 137, Potassium 4.4, Chloride 108 H, Carbon Dioxide 23.0, Anion Gap 6, BUN 24 H, Creatinine 1.11, Estim Creat Clear Calc 68.98, Est GFR (MDRD) Af Amer 84, Est GFR (MDRD) Non-Af 69, BUN/Creatinine Ratio 21.6 H, Glucose 88, Calcium 8.3 L, Magnesium 2.0 Current Medications Acetaminophen (Acetaminophen 325 Mg Tablet) 650 mg PO Q6H PRN PRN PRN Reason: PAIN 1-10 Albuterol/Ipratropium (Ipratropium/Albuterol Sulfate 3 Ml Ampul.Neb) 3 ml INHALATION Q4H PRN PRN PRN Reason: wheeZing/SOB Last Admin: 06/23/20 05:26 Dose: 3 ml Documented by: Amlodipine Besylate (Amlodipine 5 Mg Tablet) 5 mg PO DAILY [facility] Last Admin: 06/23/20 07:30 Dose: 5 mg Documented by: Apixaban (Apixaban 5 Mg Tablet) 5 mg PO BID [facility] Last Admin: 06/23/20 07:29 Dose: 5 mg Documented by: Atorvastatin Calcium (Atorvastatin Calcium 80 Mg Tablet) 80 mg PO QHS [facility] Last Admin: 06/22/20 21:08 Dose: 80 mg Documented by: Bisacodyl (Bisacodyl 10 Mg Suppository) 10 mg RC .PRN X 1 PRN PRN Reason: Constipation Clopidogrel Bisulfate (Clopidogrel Bisulfate 75 Mg Tablet) 75 mg PO DAILY [facility] Last Admin: 06/23/20 07:29 Dose: 75 mg Documented by: Hydralazine HCl (Hydralazine 25 Mg Tablet) 25 mg PO Q4H PRN PRN PRN Reason: systolic >160 diastolic>85 Ipratropium [place] (Ipratropium [place] 0.06% Nasal [place]) 2 spray NASAL BID [facility] Last Admin: 06/23/20 07:30 Dose: 2 spray Documented by: Levothyroxine Sodium (Levothyroxine 75 Mcg Tablet) 75 mcg PO DAILY@0600 [facility] Last Admin: 06/23/20 05:12 Dose: 75 mcg Documented by: Losartan Potassium (Losartan Potassium 100 Mg Tablet) 100 mg PO DAILY [facility] Last Admin: 06/23/20 07:30 Dose: 100 mg Documented by: Magnesium Chloride (Magnesium Chloride 64 Mg Delay Rel.Tablet) 128 mg PO BID [facility] Last Admin: 06/23/20 07:30 Dose: 128 mg Documented by: Magnesium Hydroxide (Magnesium Hydroxide 30 Ml Udc) 30 ml PO .PRN X 1 PRN PRN Reason: Constipation Metoprolol Succinate (Metoprolol(Xl)Succ 50 Mg Tablet) 50 mg PO QHS [facility] Last Admin: 06/22/20 21:08 Dose: 50 mg Documented by: Multivitamins (Multivitamins,Therapeutic Tablet) 1 tablet PO DAILY@0800 [facility] Last Admin: 06/23/20 07:30 Dose: 1 tablet Documented by: Nitroglycerin (Nitroglycerin Sl (Ed/Img/Cath) 0.4 Mg Tablet) 0.4 mg SL Q5M PRN PRN Reason: chest pain Potassium Chloride (Potassium Chloride Oral Tablet 20 Meq) 20 meq PO DAILYCM [facility] Last Admin: 06/23/20 07:30 Dose: 20 meq Documented by: Fluticasone/Salmeterol (Fluticasone/Salmeterol 232-14 Inhaler) 1 puff INHALATION Q12 [facility] Last Admin: 06/23/20 07:29 Dose: 1 puff Documented by: Senna/Docusate Sodium (Senna/Docusate Sodium 1 Tablet) 1 tablet PO BID [facility] Last Admin: 06/23/20 07:34 Dose: Not Given Documented by: Sertraline HCl (Sertraline 50 Mg Tablet) 100 mg PO DAILY [facility] Last Admin: 06/23/20 07:29 Dose: 100 mg Documented by: Sodium Chloride (0.9% Saline Lock 10 Ml Syringe) 10 - 40 ml IV UD PRN PRN Reason: SALINE FLUSH Last Admin: 06/13/20 00:21 Dose: 10 ml Documented by: Discharge Activity: May Not Drive, May Shower, - - Do not operate any heavy machinery or anything that can injure you......like a chain saw. May resume sexual activity in: No Restrictions Weight Bearing Status: Full weight bearing Call your doctor if you observe: Fever of 101 or Higher, Shortness of breath, Dizziness, Fainting spells, Swelling in the ankles, Chest pain, Increased palpitations (irregular heartbeat), Calf discomfort, - - Call your family doctor if any unusual bleeding such as bleeding from the gums, blood from the anus, blood in the urine, nose bleeds, large bruises or bleeding from the vagina if female. Home Medications: Medications to take at Discharge Multivitamin 1 each PO DAILY 06/11/20 Acetaminophen [Tylenol Tablet] 650 mg PO Q6H PRN PRN tablet 06/22/20 Albuterol Inhaler [Ventolin Hfa] 2 puff INHALATION Q4H PRN PRN 30 Days #1 udc 06/22/20 Amlodipine [Norvasc] 5 mg PO DAILY #30 tablet 06/22/20 Atorvastatin Calcium [Lipitor] 80 mg PO QHS #30 tablet 06/22/20 Budesonide/Formoterol 160/4.5 [Symbicort 160-4.5 Mcg Inhaler] 10.2 gm IH Q12H #1 hfa.aer.ad 06/22/20 Clopidogrel Bisulfate [Plavix] 75 mg PO DAILY #30 tablet 06/22/20 Ipratropium [place] 0.06% [ATROVENT NASAL SPRAY (g)] 2 spray NASAL TID #1 bottle 06/22/20 Ipratropium/Albuterol Sulfate [Duoneb] 3 ml INHALATION Q4H.RT PRN #90 06/22/20 Levothyroxine Sodium [Synthroid] 75 mcg PO DAILY #30 tablet 06/22/20 Losartan Potassium [Cozaar] 100 mg PO DAILY #30 tablet 06/22/20 Magnesium Chloride [Slow-Mag] 71.5 mg PO BID #60 tablet.dr 06/22/20 Metoprolol(XL)Succ [Toprol Xl (Beta Carlos)] 50 mg PO QHS #30 tab 06/22/20 Nitroglycerin 0.4 mg SL Q5M PRN #1 bottle 06/22/20 Potassium Chloride Oral Tablet [K-Dur] 20 meq PO DAILYCM #30 tablet 06/22/20 Rivaroxaban [Xarelto] 1 each PO UD #1 tab.ds.pk 06/22/20 Sertraline HCl 100 mg PO DAILY #30 tablet 06/22/20 Following Prescriptions Were Given to Patient: Ipratropium [place] 0.06% [ATROVENT NASAL SPRAY (g)] 2 spray NASAL TID #1 bottle Transmission Status: Received by [facility] Losartan Potassium [Cozaar] 100 mg PO DAILY #30 tablet Transmission Status: Received by [facility] Ipratropium/Albuterol Sulfate [Duoneb] 3 ml INHALATION Q4H.RT PRN #90 PRN Reason: Wheezing Potassium Chloride Oral Tablet [K-Dur] 20 meq PO DAILYCM #30 tablet Transmission Status: Received by [facility] Atorvastatin Calcium [Lipitor] 80 mg PO QHS #30 tablet Transmission Status: Received by [facility] Nitroglycerin 0.4 mg SL Q5M PRN #1 bottle PRN Reason: chest pain Transmission Status: Received by [facility] Amlodipine [Norvasc] 5 mg PO DAILY #30 tablet Transmission Status: Received by [facility] Clopidogrel Bisulfate [Plavix] 75 mg PO DAILY #30 tablet Transmission Status: Received by [facility] Sertraline HCl 100 mg PO DAILY #30 tablet Transmission Status: Received by [facility] Magnesium Chloride [Slow-Mag] 71.5 mg PO BID #60 tablet.dr Transmission Status: Received by [facility] Budesonide/Formoterol 160/4.5 [Symbicort 160-4.5 Mcg Inhaler] 10.2 gm IH Q12H #1 hfa.aer.ad Transmission Status: Received by [facility] Levothyroxine Sodium [Synthroid] 75 mcg PO DAILY #30 tablet Transmission Status: Received by [facility] Metoprolol(XL)Succ [Toprol Xl (Beta Carlos)] 50 mg PO QHS #30 tab Transmission Status: Received by [facility] Albuterol Inhaler [Ventolin Hfa] 2 puff INHALATION Q4H PRN PRN 30 Days #1 udc PRN Reason: Wheezing Transmission Status: Received by [facility] Rivaroxaban [Xarelto] 1 each PO UD #1 tab.ds.pk Transmission Status: Received by [facility] Other Amb Orders: Polysomnography [SL] Time Frame: 1 Week, Facility: [facility], Location: [facility] Primary Care Physician: Miquel Chapman MD [Primary Care Provider] - Please Follow Up With: Dr Lanier-PCP When: Friday Please Follow Up With: Dr Ocampo-Pulmonary When: Friday Please Follow Up With: Mark Philip MD (Assistant Manager Bilingual) When: Friday Please Follow Up With: Dr. Oli Garcia When: Friday Please Follow Up With: Sleep Study When: Friday When: [facility] [place]-Speech therapy Patient Instructions: Rivaroxaban Oral tablet, What Is Atrial Flutter/Atrial Fibrillation?, Mood Swings and Depression After a Stroke, Depression Affects Your Mind and Body, Counseling for Depression, Depression: Tips to Help Yourself Disposition: Home - With outpatient speech therapy at [facility]. No DME needed Minutes spent on discharge:: 40 Patient Condition:: Good Medical Necessity - Tobacco Use Smoking Status: Former smoker Tobacco Use: Cigarettes, - - he now chews Meaningful Use Info Meaningful Use Diagnoses (Choose all that apply): Ischemic CVA - CVA Therapy Assessed for PT,OT and/or ST?: Yes - Ischemic Stroke Antithrombotic order at d/c?: Yes Dx of Atrial fib/flutter?: Yes Anticoagulant at discharge?: Yes Statins at discharge?: Yes Primary Dx Acute Ischemic CVA?: Yes IV tPA ordered during stay?: No Reason IV t-PA not ordered: Treatment not Indicated - he had TPA at initial presentation to ED. Inpatient E&M: 06990 Disch Hosp
[2020-06-23 16:32] VITALS: PULSE 56; RESP 16; O2SAT 95
[2020-06-23 19:36] VITALS: BP 125/64; PULSE 63; RESP 16; TEMP 36.1; O2SAT 97
[2020-06-23 22:35] VITALS: BP 125/64; PULSE 63
[2020-06-23] MEDS: Metoprolol(XL)Succ 50 MG Tablet PO (22:35)
[2020-06-23] MEDS: Atorvastatin Calcium 80 MG Tablet PO (22:36)
[2020-06-24] MEDS: Levothyroxine 75 MCG Tablet PO (06:43)
[2020-06-24 08:01] VITALS: PULSE 75; RESP 12
[2020-06-24] MEDS: Ipratropium/Albuterol Sulfate 3 ML AMPUL.NEB INHALATION (08:01)
[2020-06-24 08:33] VITALS: BP 130/76; PULSE 68; RESP 16; TEMP 36.8; O2SAT 96
[2020-06-24] MEDS: Sertraline 50 MG Tablet 100 MG PO (08:48)
[2020-06-24] MEDS: Clopidogrel Bisulfate 75 MG Tablet PO (08:48)
[2020-06-24] MEDS: Losartan Potassium 100 MG Tablet PO (08:48)
[2020-06-24] MEDS: APIXABAN 5 MG TABLET PO (08:48)
[2020-06-24] MEDS: Magnesium Chloride 64 MG Delay Rel.Tablet 128 MG PO (08:48)
[2020-06-24] MEDS: Fluticasone/Salmeterol 232-14 Inhaler 1 PUFF INHALATION (08:50)
[2020-06-24] MEDS: Potassium Chloride Oral Tablet 20 MEQ PO (08:50)
[2020-06-24] MEDS: Multivitamins,Therapeutic Tablet 1 TABLET PO (08:50)
[2020-06-24] MEDS: amLODIPine 5 MG Tablet PO (08:51)
[2020-06-24] MEDS: Ipratropium Bromide 0.06% NASAL SPRAY 2 SPRAY NASAL (08:53)
--- NOTE | 2020-06-24 10:53 | CASEMGMT ---
SOCIAL WORK Call from Seth with [facility]. Seth reports will be in at 11am to meet with patient. Farhana Lugo, MANAGER [employer], EXECUTIVE ACCOUNT MANAGER
[2020-06-24 11:30] VITALS: BP 130/76; PULSE 68; RESP 16; TEMP 36.8; O2SAT 96; BMI 23.7
--- NOTE | 2020-06-24 11:30 | NURSING ---
Daughter here and patient and her aware of discharge instruct and verbalized understanding. Printed med sheet provided for Xarelto. TERRY at this time.
== END 2020-06-24 11:30 | disposition home or self-care (01) | DRG 57 ==
PROVIDERS: Admitting Provider Internal Medicine; PCP Family Medicine; Visit Provider Internal Medicine
DX: I69.320 Aphasia following cerebral infarction (principal); I69.390 Apraxia following cerebral infarction; I25.2 Old myocardial infarction; I25.10 Atherosclerotic heart disease of native coronary artery without angina pectoris; N40.0 Benign prostatic hyperplasia without lower urinary tract symptoms; E78.5 Hyperlipidemia, unspecified; I10 Essential (primary) hypertension; J44.9 Chronic obstructive pulmonary disease, unspecified; I48.0 Paroxysmal atrial fibrillation; E03.9 Hypothyroidism, unspecified; F17.220 Nicotine dependence, chewing tobacco, uncomplicated; E74.39 Other disorders of intestinal carbohydrate absorption; F32.9 Major depressive disorder, single episode, unspecified; F41.9 Anxiety disorder, unspecified; Z91.14 Patient's other noncompliance with medication regimen; Z79.02 Long term (current) use of antithrombotics/antiplatelets; Z79.899 Other long term (current) drug therapy
CPT/HCPCS: 80048; 80053; 83735; 84100; 84439; 84443; 85027; 92507; 92523; 94640; 97110; 97112; 97116; 97129; 97162; 97166; 97530; 97535; 97803; A4216

== ENCOUNTER → 2020-06-27 20:35 | Outpatient (CLI) | payer MEDICARE, OTHER, SELFPAY ==
[2020-06-21 10:09] VITALS: BMI 23.7
[2020-06-24 11:30] VITALS: BMI 23.7
== END ==
PROVIDERS: PCP Family Medicine; Visit Provider Internal Medicine
DX: R06.83 Snoring (principal); G47.30 Sleep apnea, unspecified; I48.0 Paroxysmal atrial fibrillation; I63.9 Cerebral infarction, unspecified
CPT/HCPCS: 95810

== ENCOUNTER 2020-07-26 11:30 | Outpatient (RCR) | payer MEDICARE, OTHER, SELFPAY ==
[2020-07-04 06:17] VITALS: BMI 23.6
--- NOTE | 2020-07-06 08:34 | HP.SP.AD_ITS ---
History - History Date of Eval: 07/04/20 Date of Onset of Diagnosis: May 2020 Previous speech therapy: Yes Other Relevant Medical History/Diagnoses/Surgery: Patient is a 69 year old M with a past medical history of hyperlipidemia, hypertension, chronic anticoagulation with apixaban(which he was non-compliant with at the time of most recent CVA), COPD, hypothyroidism, coronary artery disease, embolic TIA in May 2017 (status post PCI) who recently presented to an ED with c/o R side weakness and right side facial droop. He received TPA in the ED and then was transferred to [facility]. Work-up showed acute infarct within the left frontal and left temporal lobes and multiple chronic lacunar infarcts within the bilateral cerebellar hemispheres. A CTA of the head and neck was concerning for possible carotid web versus dissection to the left cervical internal carotid artery. Echocardiogram showed normal left ventricular size and overall function was grossly normal. He had a transesophageal echocardiogram in May 2017 that showed a hypermobile atrial septum but was negative for shunting. LDL was high at 143 and hemoglobin A1c was 5.7. The patient was supposed to be on Eliquis and Plavix but was not taking Eliquis at the time of his most recent stroke. He was transferred to the acute inpt rehab unit at [facility] on 06/11/20 for > 3 hours of therapy daily to restore him at or near his prior level of function. Pt. lives at home w/ daughter. Smoking Status: Former smoker Hx Smoking: Yes Hx Smoking Cessation Date: 06/11/10 Hx Tobacco Use: No - Pain Is pain an issue with your current prescribed condition?: No - Personal Visual Assistive Devices: Glasses Patients Living Arrangements: With Family Patient Allergies - Allergies Allergies codeine Adverse Reaction (Verified 07/04/20 12:37) NEEDS FOLLOW-UP Other Impressions - Comments Additional comments -: Patient was accompanied by his daughter. He stated he has made improvement since he was first hospitalized. With management of medication at home, he stated that the first time, his daughter helped him put medication in his pill box. The second time, he did it by himself with his daughter overseeing him. Patient has purchased the computer program for aphasia Advance language therapy and stated some parts he can do and some parts are more difficult. He gets the most frustrated with not being able to get words out, reading comprehension, and his ability to write. Patient stated that he was writing a check and it took him quite awhile how to figure out how to write the word ten. Previous to hospitalization, patient kept his own financial dealings. Daughter is now helping him. He stated he pays most bill by check but pays his phone bill by phone using a credit card. Patient was asked if he is using any of the compensatory strategies for word recall. Patient was able to recall rehearsal strategies independently. He was able to give an example of using one of the strategies. He stated he was having difficulty saying his phone number when trying to leave a phone message so he used his business card to read his phone number off of when he was leaving a message for someone to call him back. History -: Patient participated in one week of skilled ST intervention at [facility] Rehab unit from 06/12/20-06/23/20. Therapy was targeting expressive and receptive aphasia and apraxia of speech. Education re: aphasia vs. apraxia completed ? reviewed cordova features and treatment for each. Handout provided to share w/ family when visiting. The pt was further assessed in cognitive-linguistic abilities for medication and finance management. recommended for the pt for 1:1 supervision for medication management, as well as family supervision for finance management tasks upon discharge home. Pt and family was agreeable. Recommend continued speech therapy to address remaining deficits related to apraxia, expressive and receptive aphasia (reading comprehension and word retrieval), and cognitive linguistic impairments, including medication and finance management (numerical processing). Plan - Plan Plan: Recommend continued skilled speech therapy to address remaining deficits related to apraxia, expressive and receptive aphasia (reading comprehension and word retrieval), and cognitive linguistic impairments, including medication and finance management (numerical processing). - Frequency Frequency: 1x/Week Duration: 6 Months - Prognosis Prognosis: Good - Goal #1-5 Goal #1: Continue to assess expressive receptive aphasia (reading comprehension and word retrieval) and cognitive linguistic impairments. Goal #2: Will utilize learned compensatory strategies (circumlocution, visualization) to assist word retrieval during conversational spech with minimal cueing. Goal #3: Will demonstrate reading comprehension at the sentence and short paragraph level with 80% Goal #4: Will be able to manage medication and banking/financial needs with minimal support from family. Education - Patient has Indicated that the Following Identified Educational Needs: None The Patient has indicated that they have no educational or learning abilities that may effect their care.: Yes - Patient Instruction Patient Education: Treatment Plan Person Taught: Patient, Family Teaching Method: Discussion Response to teaching: Verbalize understanding
--- NOTE | 2020-12-19 16:02 | HP.SP.DC_ITS ---
ST Discharge Summary - Discharged: Discharge: Oli Correa is discharged from [facility] as of October as no further visits were schedule by the patient. He was evaluated on 07/04/20 with a diagnosis of CVA and completed only two visits. Therapy was addressing word finding deficits as well as reading deficits. He was able to read phrases 100%. Sentences were verbally read at 80%. When given a 2-5 sentence paragraph he demonstrated difficulty in reading verbally as well as comprehension issues. He was able to answer basic yes no questions with 70% accuracy. He often had to look at material again (possible recall deficits). Reading is very slow and effortful. Stiven did very well with using strategies independently for word finding deficits. When he hesitates to find a word, it seems a natural pause in conversation. The patient stated he had made good progress since his stroke. Thank you for allowing me to participate in the care of this patient.
== END 2020-07-26 19:00 | disposition home or self-care (01) ==
LOC: SP 11:30
PROVIDERS: PCP Internal Medicine; Referring Provider Internal Medicine; Visit Provider Internal Medicine
DX: I69.320 Aphasia following cerebral infarction (principal); I69.390 Apraxia following cerebral infarction; I10 Essential (primary) hypertension
CPT/HCPCS: 92507; 92523

== ENCOUNTER → 2020-07-26 13:00 | Outpatient (CLI) | payer MEDICARE, OTHER, SELFPAY ==
[2020-07-04 06:17] VITALS: BMI 23.6
[2020-07-11 09:03] VITALS: BMI 23.6
--- NOTE | 2020-07-26 14:10 | PFTCOMP ---
COMPLETE PULMONARY FUNCTION TEST INTERPRETATION Brief HPI: Patient is a 69 year old male, currently under the care of myself, who presents to [facility] for complete pulmonary function tests secondary to diagnosis of COPD. Respiratory therapist reports good effort and reproducible results. Interpretation: Forced expiration spirometry shows a very severe large airways obstructive ventilatory defect with an FEV1 of 35% predicted. There is no significant bronchodilator response by strict ATS criteria. Spirograms are of good quality and plateau slowly, indicating slowly emptying areas of the lungs. The respiratory flow volume loop shows decreased expiratory flow rates at all lung volumes consistent with airway obstruction. Lung volumes by body plethysmography show a decreased total lung capacity at 4.93 L, 68% predicted. All other lung volumes are reduced symmetrically. Diffusion capacity by carbon monoxide is decreased at 69% predicted. The airway resistance is elevated. No previous pulmonary function tests were available for review. Impression: Irreversible very severe mixed ventilatory defect with symmetric reduction diffusing capacity
== END ==
PROVIDERS: PCP Internal Medicine; Referring Provider Internal Medicine Critical Care Medicine; Visit Provider Internal Medicine Critical Care Medicine
DX: J44.9 Chronic obstructive pulmonary disease, unspecified (principal)
CPT/HCPCS: 94060; 94726; 94729

== ENCOUNTER → 2020-08-02 12:16 | Outpatient (CLI) | payer MEDICARE, OTHER, SELFPAY ==
[2020-07-04 06:17] VITALS: BMI 23.6
[2020-07-11 09:03] VITALS: BMI 23.6
[2020-08-02 12:40] VITALS: PULSE 64; PULSE 67; PULSE 75; PULSE 77; PULSE 78; PULSE 79; O2SAT 93; O2SAT 94; O2SAT 95; O2SAT 96; O2SAT 98
--- NOTE | 2020-08-03 07:14 | PCM.PSN.6M ---
PSN 6 Minute Walk Test 6 Minute Walk Test 6 Minute Walk Test: 6 Minute Walk Test PSN:6-Minute Walk Test Start: 08/02/20 12:40 Freq: Status: Active Protocol: [id number].[id number] Document 08/02/20 12:40 NAVNEET (Rec: 08/02/20 12:42 NAVNEET [id number]) 6 Minute Walk Test Date Performed 08/02/20 Time Performed 12:30 Height 6 ft 1 in Weight: 180 lb Weight in Pounds 180.[address]: Oskar Ocampo Assistive device used: None Pre-test Oxygen Delivery Method Room Air Pulse Ox (%) 95 Pulse Rate (60-100 beats/min) 64 Dyspnea Dax Scale (0-10) 0 Exertion Dax Scale (6-20) 6 1st minute Oxygen Delivery Method Room Air Pulse Ox (%) 94 Pulse Rate (60-100 beats/min) 75 2nd minute Oxygen Delivery Method Room Air Pulse Ox (%) 94 Pulse Rate (60-100 beats/min) 77 3rd minute Oxygen Delivery Method Room Air Pulse Ox (%) 98 Pulse Rate (60-100 beats/min) 78 4th minute Oxygen Delivery Method Room Air Pulse Ox (%) 94 Pulse Rate (60-100 beats/min) 79 5th minute Oxygen Delivery Method Room Air Pulse Ox (%) 93 Pulse Rate (60-100 beats/min) 79 6th minute Oxygen Delivery Method Room Air Pulse Ox (%) 95 Pulse Rate (60-100 beats/min) 79 Dyspnea Dax Scale (0-10) 2 Exertion Dax Scale (6-20) 12 Post-test Oxygen Delivery Method Room Air Pulse Ox (%) 96 Pulse Rate (60-100 beats/min) 67 Full Laps Walked 18 Partial Lap, Number of Tiles Walked 28 Total Distance Walked (ft) 1090 Interpretation Interpretation: The patient ambulated 1090 feet over the course of 6 minutes beginning on room air without assistive devices. Pretesting oxygen saturation was noted to be 95% on room air. With ambulation, the mer oxygen saturation was 93%. There was no significant exertional oxygen desaturation. Recommendations Recommendations: There is no indication for the use of supplemental oxygen at this time.
== END ==
PROVIDERS: PCP Internal Medicine; Referring Provider Internal Medicine Critical Care Medicine; Visit Provider Internal Medicine Critical Care Medicine
DX: J44.9 Chronic obstructive pulmonary disease, unspecified (principal)
CPT/HCPCS: 94618

== ENCOUNTER → 2020-10-09 11:18 | Outpatient (CLI) | payer MEDICARE, OTHER, SELFPAY ==
[2020-10-09 10:47] VITALS: BMI 23.8
[2020-10-09 12:04] LABS: Absolute Lymphocyte Count 1.43 X10^3/uL (0.83-4.51); Absolute Neutrophil Count 4.7 X10^3/uL (2.0-7.7); Basophil# 0.04 X10^3/uL; Basophil% 0.6 % (0-1); Eosinophil# 0.11 X10^3/uL; Eosinophils% 1.6 % (0-5); Hematocrit 49.9 % (40-54); Lymphocyte # 1.43 X10^3/ul (0.83-4.51); Lymphocyte % 20.6 % (19-41); Mean Corp Hgb Conc 32.1 g/dL (32-36); Mean Corpuscular Hgb 30.5 pg (27.0-32.0); Mean Platelet Vol. 8.8 fl (6.2-12.0); Monocyte# 0.64 X10^3/uL; Monocyte% 9.2 % (0-10); NRBC Flagged by Analyzer 0 % (0-5); Neutrophil # 4.68 X10^3/uL (2.7-7.7); Neutrophil % 67.6 % (47-70); Platelet Count 252 K/mm3 (150-450); RBC Distribution Width CV 11.8 % (11.6-14.6); RBC Distribution Width SD 40.9 fl (35.1-43.9); Red Blood Count 5.25 M/mm3 (4.6-6.2); White Blood Count 6.9 K/mm3 (4.4-11.0)
[2020-10-09 12:38] LABS: Vitamin D,25 Hydroxy 49.2 ng/mL
[2020-10-09 12:43] LABS: ALB/GLOB Ratio 1.1 RATIO (0.9-2.4); AST(SGOT) 24 U/L (15-37); Alanine Aminotransfer ALT/SGPT 33 U/L (16-61); Albumin, Serum 3.7 g/dL (3.2-5.0); Alkaline Phosphatase 90 U/L (45-117); Anion Gap 3 (5-15); BUN 17 mg/dL (7-18); BUN/Creat Ratio 14.8 RATIO (10-20); Calcium,Total 8.9 mg/dL (8.5-10.1); Chloride 106 mmol/L (98-107); Cholesterol 152 mg/dL (200); Creatinine, Serum 1.15 mg/dL (0.70-1.30); EST Glomerular Filtration Rate 67 mL/min (>60); Est Glom Filt Rate - Afr Amer 80 mL/min (>60); Free T3 2.2 pg/mL (2.18-3.98); Globulin 3.5 g/dL (2.2-4.2); Glucose 93 mg/dL (74-106); High Density Lipoprotein 44 mg/dL; Potassium 4.8 mmol/L (3.5-5.1); Protein, Total 7.2 g/dL (6.4-8.2); Sodium Level 139 mmol/L (136-145); T4 Free Direct 1.03 ng/dL (0.76-1.46); Thyroid Stim Hormone (TSH) 2.45 uIU/mL (0.358-3.74); Triglycerides 113 mg/dL; Very Low Density Lipoprotein 23 mg/dL (5-40)
== END ==
PROVIDERS: PCP Internal Medicine; Referring Provider Internal Medicine; Visit Provider Internal Medicine
DX: E55.9 Vitamin D deficiency, unspecified (principal); N40.0 Benign prostatic hyperplasia without lower urinary tract symptoms; I25.10 Atherosclerotic heart disease of native coronary artery without angina pectoris; I48.0 Paroxysmal atrial fibrillation; J44.9 Chronic obstructive pulmonary disease, unspecified; I10 Essential (primary) hypertension; E78.5 Hyperlipidemia, unspecified; Z12.5 Encounter for screening for malignant neoplasm of prostate
CPT/HCPCS: 36415; 80053; 80061; 82306; 84153; 84439; 84443; 84481; 85025; G0103

== ENCOUNTER → 2020-12-08 12:51 | Outpatient (CLI) | payer MEDICARE, OTHER, SELFPAY ==
[2020-08-08 08:24] VITALS: BMI 23.8
--- NOTE | 2020-12-08 12:53 | CDU_ITS ---
Reason For Study: Report of L ICA web or dissection on D/C summary Rt. Velocities/BP Lt. Velocities/BP Prox CCA 68.2/17.3 cm/sec. Prox CCA 68.4/14.6 cm/sec. Mid CCA 57.8/10.8 cm/sec. Mid CCA 84.9/23.4 cm/sec. Dist CCA 72.1/21.3 cm/sec. Dist CCA 64/17.9 cm/sec. Prox ICA 45.4/16.8 cm/sec. Prox ICA 32.5/10.7 cm/sec. Mid ICA 65.1/24.5 cm/sec. Mid ICA 71.8/28.2 cm/sec. Dist ICA 93.8/33.3 cm/sec. Dist ICA 81.5/28.6 cm/sec. Rt. ICA/CCA = 1.38. Lt. ICA/CCA = 1.19. Prox ECA 72.1/10.8 cm/sec. Prox ECA 50.9/9.1 cm/sec. Rt. Vert. 42.1/10.2 cm/sec. Lt. Vert. 41.9/14.5 cm/sec. Right Extracranial There is heterogeneous, smooth atherosclerotic plaque noted in the right common carotid artery. There is heterogeneous, irregular atherosclerotic plaque noted in the right internal carotid artery. There is intimal thickening but no significant atherosclerotic plaque noted in the right external carotid artery. Antegrade flow is noted in the right vertebral artery. Left Extracranial There is heterogeneous, smooth atherosclerotic plaque noted in the left common carotid artery. There is heterogeneous, irregular atherosclerotic plaque noted in the left internal carotid artery. There is intimal thickening but no significant atherosclerotic plaque noted in the left external carotid artery. Antegrade flow is noted in the left vertebral artery. Procedure This is a Carotid Duplex examination using B-mode, color flow and specral Doppler. Carotid Duplex [id number]. Exam performed in department. VL/Carotid Duplex Ultrasound Interpretation Summary Minimal calcific plaque in the proximal right internal carotid artery with less than 50% stenosis. Less than 50% stenosis right external carotid artery Minimal irregular plaque at the proximal left internal carotid artery with less than 50% stenosis. Less than 50% stenosis left external carotid artery Patent antegrade vertebral arteries bilaterally No left internal carotid web or dissection identified. Ordering Physician: Oli Garcia Referring Physician: Sarah Lanier Performed By: Key Michael RVT
--- NOTE | 2020-12-08 14:17 | CT_ITS ---
STUDY: CT Chest W/O Contrast Injection 12/08/2020 2:58 PM REASON FOR EXAM: Male, 70 years old. restriction on PFT -- please include HRCT images Individualized dose optimization techniques were used for this CT. TECHNIQUE: Transaxial imaging was performed withoutIV contrast material. COMPARISON: None. FINDINGS: There are degenerative changes of the shoulders. There is no pneumothorax. There are scattered blebs and bullae. This can be seen in pulmonary emphysema. There is a 6 mm right lower lobe subpleural nodule. SE:4 IM: 98. Right upper lobe calcified granuloma. There are calcifications of the coronary arteries. Normal mediastinum. Normal hilar regions. Normal pulmonary arteries. There is atherosclerotic calcification of the aortic arch with tortuosity and elongation of the aortic arch and descending thoracic aorta. There are multi-level degenerative changes of the thoracic spine. 15 mm lymph node along the right thalia. CT/Chest without Contrast IMPRESSION: There is a 6 mm right lower lobe subpleural nodule. Fleischner Society Guidelines (MacMahon, et al. Radiology 2017; 284(1):228-43) suggest that no further follow-up is necessary for patients with low or high risk of malignancy. Mild pulmonary emphysema Electronically Signed: Sarabjit Casiano MD at 15:01 EDT , Service support ,
== END ==
PROVIDERS: PCP Internal Medicine; Referring Provider Psychiatry & Neurology Neurology; Visit Provider Psychiatry & Neurology Neurology
DX: I63.512 Cerebral infarction due to unspecified occlusion or stenosis of left middle cerebral artery (principal); I69.322 Dysarthria following cerebral infarction
CPT/HCPCS: 71250; 93880

== ENCOUNTER → 2020-12-20 20:00 | Outpatient (CLI) | payer MEDICARE, OTHER, SELFPAY ==
[2020-07-04 06:17] VITALS: BMI 23.6
== END ==
PROVIDERS: PCP Internal Medicine; Visit Provider Internal Medicine Critical Care Medicine
DX: G47.33 Obstructive sleep apnea (adult) (pediatric) (principal)
CPT/HCPCS: 95811

== ENCOUNTER → 2021-02-16 13:49 | Outpatient (CLI) | payer MEDICARE, OTHER, SELFPAY | PROVIDERS: PCP Internal Medicine; Referring Provider Nurse Practitioner Acute Care; Visit Provider Nurse Practitioner Acute Care | DX: Z46.89 Encounter for fitting and adjustment of other specified devices (principal) | CPT/HCPCS: 94667 ==

== ENCOUNTER 2021-04-09 15:17 | Outpatient (CLI) | payer MEDICARE, OTHER, SELFPAY ==
[2021-04-09 16:55] LABS: Absolute Lymphocyte Count 1.76 X10^3/uL (0.83-4.51); Basophil# 0.04 X10^3/uL; Basophil% 0.5 % (0-1); Eosinophil# 0.07 X10^3/uL; Eosinophils% 0.9 % (0-5); Hematocrit 35.1 % (40-54); Hemoglobin 11.1 g/dL (13.0-16.5); Lymphocyte # 1.76 X10^3/ul (0.83-4.51); Lymphocyte % 23.1 % (19-41); Mean Corp Hgb Conc 31.6 g/dL (32-36); Mean Corpuscular Volume 94.9 fL (80-94); Mean Platelet Vol. 9.2 fl (6.2-12.0); Monocyte# 0.73 X10^3/uL; Monocyte% 9.6 % (0-10); NRBC Flagged by Analyzer 0 % (0-5); Neutrophil # 4.98 X10^3/uL (2.7-7.7); Neutrophil % 65.2 % (47-70); Platelet Count 239 K/mm3 (150-450); RBC Distribution Width CV 13.3 % (11.6-14.6); White Blood Count 7.6 K/mm3 (4.4-11.0)
[2021-04-09 17:04] LABS: Vitamin D,25 Hydroxy 18.7 ng/mL
[2021-04-09 17:14] LABS: AST(SGOT) 35 U/L (15-37); Alanine Aminotransfer ALT/SGPT 36 U/L (16-61); Albumin, Serum 3.3 g/dL (3.2-5.0); Alkaline Phosphatase 81 U/L (45-117); Anion Gap 5 (5-15); BUN 22 mg/dL (7-18); BUN/Creat Ratio 16.5 RATIO (10-20); Calcium,Total 8.6 mg/dL (8.5-10.1); Chloride 106 mmol/L (98-107); Cholesterol 134 mg/dL (200); Creatinine, Serum 1.33 mg/dL (0.70-1.30); EST Glomerular Filtration Rate 56 mL/min (>60); Est Glom Filt Rate - Afr Amer 68 mL/min (>60); Globulin 3.3 g/dL (2.2-4.2); Glucose 87 mg/dL (74-106); High Density Lipoprotein 39 mg/dL; PSA,Total- Diagnostic 6.62 ng/mL (0.0-4.0); Potassium 4.9 mmol/L (3.5-5.1); Protein, Total 6.6 g/dL (6.4-8.2); Sodium Level 138 mmol/L (136-145); Thyroid Stim Hormone (TSH) 3.51 uIU/mL (0.358-3.74); Triglycerides 132 mg/dL; Very Low Density Lipoprotein 26 mg/dL (5-40)
[2021-04-09 17:18] LABS: BNP,B-Type NATRIURETIC PEPTIDE 87.6 pg/mL (0-100)
== END 2021-04-09 23:59 | disposition home or self-care (01) ==
LOC: BIMLAB 15:18
PROVIDERS: PCP Internal Medicine; Referring Provider Internal Medicine; Visit Provider Internal Medicine
DX: I10 Essential (primary) hypertension (principal); J44.9 Chronic obstructive pulmonary disease, unspecified; I77.9 Disorder of arteries and arterioles, unspecified; R97.20 Elevated prostate specific antigen [PSA]; I25.10 Atherosclerotic heart disease of native coronary artery without angina pectoris; I51.7 Cardiomegaly; I35.0 Nonrheumatic aortic (valve) stenosis; E78.5 Hyperlipidemia, unspecified; E03.9 Hypothyroidism, unspecified; Z79.01 Long term (current) use of anticoagulants; Z87.891 Personal history of nicotine dependence
CPT/HCPCS: 36415; 80053; 80061; 82306; 83880; 84153; 84443; 85025

== ENCOUNTER 2021-04-11 12:29 | Outpatient (CLI) | payer MEDICARE, OTHER, SELFPAY ==
--- NOTE | 2021-04-11 12:31 | RAD_ITS ---
EXAM: XR CHEST, 2 VIEWS : 1950 CLINICAL INDICATION: dyspnea TECHNIQUE: Frontal and lateral views of the chest. This report was created using [employer] report generation technology. COMPARISON: None. FINDINGS: LUNGS AND PLEURAL SPACES: Lungs are hyperinflated. No pneumothorax. No effusion. HEART: Unremarkable. Cardiac silhouette not enlarged. MEDIASTINUM: Central airways and mediastinal contour are unremarkable. BONES/JOINTS: Unremarkable. SOFT TISSUES: Unremarkable. RAD/Chest PA and Lateral IMPRESSION: Pulmonary hyperinflation with no acute pulmonary abnormality. at 0248 Reported and signed by: Dami Bee MD Electronically Signed: Dami Bee MD at 2:47 EST ,
== END 2021-04-11 23:59 | disposition home or self-care (01) ==
LOC: MTRAD 12:30
PROVIDERS: PCP Internal Medicine; Referring Provider Internal Medicine; Visit Provider Internal Medicine
DX: I77.9 Disorder of arteries and arterioles, unspecified (principal); J44.9 Chronic obstructive pulmonary disease, unspecified; R97.20 Elevated prostate specific antigen [PSA]; I25.10 Atherosclerotic heart disease of native coronary artery without angina pectoris; I35.0 Nonrheumatic aortic (valve) stenosis; I51.7 Cardiomegaly; E78.5 Hyperlipidemia, unspecified; E03.9 Hypothyroidism, unspecified; R06.00 Dyspnea, unspecified; I11.9 Hypertensive heart disease without heart failure; Z87.891 Personal history of nicotine dependence; Z79.01 Long term (current) use of anticoagulants
CPT/HCPCS: 71046

== ENCOUNTER → 2021-08-24 | Outpatient (CLI) | payer MEDICARE, OTHER, SELFPAY ==
[2021-08-24 10:13] LABS: Absolute Lymphocyte Count 1.39 X10^3/uL (0.83-4.51); Absolute Neutrophil Count 4.4 X10^3/uL (2.0-7.7); Basophil# 0.04 X10^3/uL; Basophil% 0.6 % (0-1); Eosinophils% 1.5 % (0-5); Hematocrit 46.5 % (40-54); Hemoglobin 14.2 g/dL (13.0-16.5); Lymphocyte # 1.39 X10^3/ul (0.83-4.51); Lymphocyte % 20.9 % (19-41); Mean Corp Hgb Conc 30.5 g/dL (32-36); Mean Corpuscular Hgb 25.8 pg (27.0-32.0); Mean Corpuscular Volume 84.4 fL (80-94); Mean Platelet Vol. 8.8 fl (6.2-12.0); Monocyte# 0.66 X10^3/uL; Monocyte% 9.9 % (0-10); NRBC Flagged by Analyzer 0 % (0-5); Neutrophil # 4.44 X10^3/uL (2.7-7.7); Neutrophil % 66.6 % (47-70); Platelet Count 252 K/mm3 (150-450); RBC Distribution Width CV 17.2 % (11.6-14.6); RBC Distribution Width SD 51.9 fl (35.1-43.9); Red Blood Count 5.51 M/mm3 (4.6-6.2); White Blood Count 6.7 K/mm3 (4.4-11.0)
[2021-08-30 22:06] LABS: Aspirgillus flavus Negative (Neg:<1:1); Aspirgillus fumigatus Negative (Neg:<1:1); Aspirgillus niger Negative (Neg:<1:1); Cytoplasmic Ab (C-ANCA) <1:20 titer (Neg:<1:20)
[2021-08-31 02:07] LABS: Alternaria alternata 0.21 kU/L (Class 0/I); Bermuda Grass <0.10 kU/L (Class 0); Bluegrass, Kentucky <0.10 kU/L (Class 0); Cat Hair/Dander, Standard <0.10 kU/L (Class 0); D farinae Mite <0.10 kU/L (Class 0); D pteronyssinus <0.10 kU/L (Class 0); Dog Epithelia <0.10 kU/L (Class 0); Elm, American White <0.10 kU/L (Class 0); Oak, White <0.10 kU/L (Class 0); Plantain, English <0.10 kU/L (Class 0); Ragweed, Short/Common <0.10 kU/L (Class 0)
[2021-08-31 10:09] LABS: Immunoglobulin E 136 IU/mL (6-495); Perinuclear Ab (P-ANCA) <1:20 titer (Neg:<1:20)
[2021-09-01 15:38] LABS: Mouse Urine <0.10 kU/L (Class 0)
== END | disposition home or self-care (01) ==
LOC: PAVLAB 09:28
PROVIDERS: PCP Internal Medicine; Referring Provider Nurse Practitioner Acute Care; Visit Provider Nurse Practitioner Acute Care
DX: J30.9 Allergic rhinitis, unspecified (principal); J44.9 Chronic obstructive pulmonary disease, unspecified; I10 Essential (primary) hypertension
CPT/HCPCS: 36415; 82785; 85025; 86003; 86256; 86606

== ENCOUNTER 2022-02-11 13:48 | Emergency (ER) | payer MEDICARE, OTHER, SELFPAY ==
[2022-02-11 13:50] VITALS: BP 148/101; PULSE 73; RESP 18; TEMP 36.6; O2SAT 98; BMI 26.4
--- NOTE | 2022-02-11 16:17 | RAD_ITS ---
INDICATION: COUGH EXAMINATION/TECHNIQUE: X-RAY - XR Chest 2 Views COMPARISON: 04/11/2021 FINDINGS: LINES/DEVICES: None. LUNGS: No consolidation, edema or effusion. No pneumothorax. MEDIASTINUM AND CARDIOVASCULAR STRUCTURES: Cardiac silhouette not enlarged. Central airways and mediastinal contour are unremarkable. BONES AND SOFT TISSUES: Unremarkable. RAD/Chest PA and Lateral IMPRESSION: No radiographic evidence of acute cardiopulmonary disease. Electronically Signed: Go Sarah MD at 16:43 EST ,
[2022-02-11 16:36] VITALS: PULSE 94; RESP 20; O2SAT 95
--- NOTE | 2022-02-11 16:53 | ED.VIS.DYS ---
HPI <LUCILA Vasquez - Last Filed: 02/11/22 21:57> History of Present Illness Chief Complaint: Cold Sx Narrative Narrative: Patient presents with chest congestion that he has had for the past month. He has a history of COPD. He states his band instrument maker has put him on antibiotics twice but he has found no relief of symptoms. The only relief of symptoms he had was when he was on double the amount of prednisone that he usually is on but his symptoms quickly returned when he resumed his normal dose of prednisone. Patient states he often feels short of breath and he has been frequently coughing up thick white sputum. Patient denies fever, chills, hemoptysis, and chest pain. [facility] <LUCILA Vasquez - Last Filed: 02/11/22 21:57> [facility] Medical History BPH (benign prostatic hyperplasia) Carotid artery disease Cerebrovascular disease Chronic anticoagulation COPD (chronic obstructive pulmonary disease) Coronary artery disease Debility Former smoker History of non-ST elevation myocardial infarction (NSTEMI) History of PTCA 1 Hyperlipidemia Hypertension Left ventricular hypertrophy Mild aortic stenosis Paroxysmal atrial fibrillation Snuff user Stroke Home Medications multivitamin 1 each PO DAILY vitamin 06/11/20 [History Last Taken Unknown] acetaminophen 325 mg tablet 650 mg PO Q6H PRN PRN PAIN 1-10 06/22/20 [Rx Last Taken Unknown] nitroglycerin 0.4 mg sublingual tablet 0.4 mg sublingual Q5M PRN chest pain #1 BOTTLE 06/22/20 [Rx Last Taken Unknown] ipratropium bromide 21 mcg (0.03 %) nasal spray 2 spray intranasal BID 06/29/20 [History Last Taken Unknown] magnesium chloride 71.5 mg (magnesium chloride) tablet,delayed release 71.5 mg PO BID #180 tabs 07/11/20 [Rx Last Taken Unknown] potassium chloride 20 mEq tablet,extended release(part/cryst) 20 meq PO DAILYCM #90 tabs 07/11/20 [Rx Last Taken Unknown] guaifenesin 1,200 mg tablet, extended release 12 hr 1,200 mg PO Q12H #60 tabs 11/22/20 [Rx Last Taken Unknown] PEP device #1 ea 02/16/21 [Rx Last Taken Unknown] benzonatate 100 mg capsule 100 mg PO Q8H PRN 05/22/21 [History Last Taken Unknown] ipratropium 0.5 mg-albuterol 3 mg (2.5 mg base)/3 mL nebulization soln 3 ml inhalation Q4H.RT PRN Wheezing #180 mL 08/23/21 [Rx Last Taken Unknown] fluticasone fur. 100 mcg-umeclid 62.5 mcg-vilant 25 mcg inhalat.powder (Trelegy Ellipta) 1 inh inhalation DAILY #60 ea 09/18/21 [Rx Last Taken Unknown] prednisone 20 mg tablet 60 mg PO QDAY #15 tabs 11/21/21 [Rx Last Taken Unknown] montelukast 10 mg tablet 10 mg PO QPM #90 tabs 11/23/21 [Rx Last Taken Unknown] amoxicillin 875 mg-potassium clavulanate 125 mg tablet 1 tab PO BID #20 tabs 12/20/21 [Rx Last Taken Unknown] amlodipine 5 mg tablet 5 mg PO DAILY #90 tabs 12/24/21 [Rx Last Taken Unknown] atorvastatin 80 mg tablet 80 mg PO QHS cholesterol #90 tabs 12/24/21 [Rx Last Taken Unknown] clopidogrel 75 mg tablet 75 mg PO DAILY blood thinner #90 tabs 12/24/21 [Rx Last Taken Unknown] levothyroxine 75 mcg tablet 75 mcg PO DAILY thyroid #90 tabs 12/24/21 [Rx Last Taken Unknown] losartan 100 mg tablet 100 mg PO DAILY #90 tabs 12/24/21 [Rx Last Taken Unknown] metoprolol succinate 50 mg tablet,extended release 24 hr 50 mg PO QHS #90 TABLETS 12/24/21 [Rx Last Taken Unknown] rivaroxaban 20 mg tablet 20 mg PO DAILY #90 tabs 12/24/21 [Rx Last Taken Unknown] sertraline 100 mg tablet (Zoloft) 100 mg PO DAILY #90 tabs 12/24/21 [Rx Last Taken Unknown] prednisone 10 mg tablet 10 mg PO DAILY #90 tabs 12/28/21 [Rx Last Taken Unknown] albuterol sulfate 90 mcg/actuation aerosol inhaler 2 inh inhalation Q4H PRN PRN Wheezing #8.5 grams 01/16/22 [Rx Last Taken Unknown] prednisone 20 mg tablet 40 mg PO DAILY 7 days #14 tabs 02/11/22 [Rx Last Taken Unknown] Allergy/AdvReac Type Severity Reaction Status Date / Time codeine AdvReac NEEDS Verified 02/11/22 13:50 FOLLOW-UP Family History Other Heart disease Hypertension Surgical History History of heart artery stent Social History Smoking Status: Former smoker quit date: 03/03/05 pack-years: 30 Tobacco: How many years used: 20 alcohol intake: current alcohol intake frequency: holidays/special occasions only substance use type: does not use what type of physical activity do you participate in: none ROS <LUCILA Vasquez - Last Filed: 02/11/22 21:57> ROS ED Constitutional Constitutional ED: Denies chills, fever(s) or sweats Eyes Eyes: Denies blurry vision, change in vision or diplopia ENT ENT ED: Denies nasal congestion, rhinorrhea or sore throat Cardiovascular Cardiovascular: Denies chest pain, palpitations or racing heartbeat Respiratory/Chest Respiratory/Chest: Reports cough, dyspnea and dyspnea on exertion; Denies tachypnea Gastrointestinal Gastrointestinal: Denies abdominal pain, constipation, nausea or vomiting Genitourinary Genitourinary ED: Denies dysuria, hematuria or urinary frequency Musculoskeletal Musculoskeletal: Denies arthralgias, back pain or myalgias Integumentary Denies abscess, Abrasions or rash Neurologic Neurologic: Denies headache(s), paresthesias or weakness Psychiatric Psychiatric: Denies anxiety, depression or suicidal ideation Allergic/Immunologic Allergic/Immunologic ED: Denies mouth swelling or tongue swelling EXAM <LUCILA Vasquez - Last Filed: 02/11/22 21:57> Physical Exam Const Vital Signs: 02/11/22 13:50 02/11/22 16:36 02/11/22 16:38 Temperature 98 F Temperature Source Temporal Pulse Rate 73 94 Respiratory Rate 18 20 H Respiratory Effort Normal Non-Labored Respiratory Depth Normal Respiratory Pattern Tachypnea Blood Pressure 148/101 H Blood Pressure Mean 116 Pulse Ox 98 95 Oxygen Delivery Method Room Air Room Air 02/11/22 17:49 02/11/22 18:53 Temperature Temperature Source Pulse Rate 70 Respiratory Rate 16 Respiratory Effort Respiratory Depth Respiratory Pattern Blood Pressure Blood Pressure Mean Pulse Ox 94 95 Oxygen Delivery Method Room Air Positive well nourished and well developed General Appearance ED: well developed and NAD HEENT Reports moist mucous membranes atraumatic; Negative for tenderness Eyes PERRL and EOMs intact bilaterally Neck no lymphadenopathy, supple, no meningeal signs and no JVD Resp normal respiratory effort and clear to auscultation bilaterally Cardio regular rate and regular rhythm GI non-tender, non-distended and no masses Palpation: soft Back/Spine normal to inspection Extremity normal to inspection Neuro oriented x3, CN's II-XII intact bilaterally and no sensory deficits noted Sensorium / Orientation: alert Speech: speech normal Gait (Neuro): normal gait Motor Exam: strength 5/5 throughout Psych mental status grossly normal Thought Process: normal thought process Skin no wounds and skin turgor normal Lesions: no lesions Rashes: no rashes <Dr. Westley Delcid MD - Last Filed: 02/11/22 18:49> Physical Exam Const Vital Signs: 02/11/22 13:50 02/11/22 16:36 02/11/22 16:38 Temperature 98 F Temperature Source Temporal Pulse Rate 73 94 Respiratory Rate 18 20 H Respiratory Effort Normal Non-Labored Respiratory Depth Normal Respiratory Pattern Tachypnea Blood Pressure 148/101 H Blood Pressure Mean 116 Pulse Ox 98 95 Oxygen Delivery Method Room Air Room Air 02/11/22 17:49 02/11/22 18:53 Temperature Temperature Source Pulse Rate 70 Respiratory Rate 16 Respiratory Effort Respiratory Depth Respiratory Pattern Blood Pressure Blood Pressure Mean Pulse Ox 94 95 Oxygen Delivery Method Room Air MDM <LUCILA Vasquez - Last Filed: 02/11/22 21:57> [facility] Narrative Medical decision making narrative: I have personally performed a face to face assessment of the patient and have reviewed the MODE Note. I performed a substantive portion of the visit including all aspects of the following. My cordova findings include: History is [71-year-old male evaluated with our physician litigation assistant. History of COPD. Complaining of URI symptoms.] Exam is [H EENT exam unremarkable. Moist Riis members. Neck nontender no JVD. Lungs clear to auscultation. No rales, rhonchi or wheezing at this time. Heart regular rhythm no murmur. Abdomen soft nontender. Moving all 4 extremities. Calves are nontender without edema or cords. Neurologically is awake and alert. History and exam consistent with viral syndrome.] Medical Decision Making [viral syndrome. COPD.] Other additions or changes: [None] Patient has been sent home with a prescription for higher dosage of prednisone for his COPD exacerbation. Patient's O2 sat has remained above 95%. He is afebrile and in no acute distress. He is having no respiratory difficulty. I am comfortable with patient discharging home with PCP follow-up. Patient is comfortable with plan. Lab Data Labs: Laboratory Results - last 24 hr 02/11/22 02/11/22 16:55 16:55 WBC 10.2 RBC 5.12 Hgb 15.8 Hct 48.9 MCV 95.5 H MCH 30.9 MCHC 32.3 RDW Std Deviation 46.8 H RDW Coeff of Leyda 13.3 Plt Count 226 MPV 8.7 Immature Gran % (Auto) 1.100 H Neut % (Auto) 84.0 H Lymph % (Auto) 10.4 L [place] % (Auto) 4.2 Eos % (Auto) 0.1 Baso % (Auto) 0.2 Absolute Neuts (auto) 8.6 H Absolute Lymphs (auto) 1.06 Nucleated RBC % 0 Sodium 141 Potassium 3.8 Chloride 106 Carbon Dioxide 28.0 Anion Gap 7 BUN 21 H Creatinine 1.22 Estim Creat Clear Calc 60.94 Est GFR (MDRD) Af Amer 75 Est GFR (MDRD) Non-Af 62 BUN/Creatinine Ratio 17.2 Glucose 77 Calcium 8.9 Radiography Diagnostic Testing: Clinical Impression(s) from Imaging Studies Chest X-Ray 02/11/22 16:17 IMPRESSION: No radiographic evidence of acute cardiopulmonary disease. Electronically Signed: Go Sarah MD at 16:43 EST , Chest x-ray, portable, single view interpreted by attending ED physician and the radiologist shows no acute abnormality. <Dr. Westley Delcid MD - Last Filed: 02/11/22 18:49> MDM MDM Narrative Medical decision making narrative: I have personally performed a face to face assessment of the patient and have reviewed the MODE Note. I performed a substantive portion of the visit including all aspects of the following. My cordova findings include: History is [71-year-old male evaluated with our physician litigation assistant. History of COPD. Complaining of URI symptoms.] Exam is [H EENT exam unremarkable. Moist Riis members. Neck nontender no JVD. Lungs clear to auscultation. No rales, rhonchi or wheezing at this time. Heart regular rhythm no murmur. Abdomen soft nontender. Moving all 4 extremities. Calves are nontender without edema or cords. Neurologically is awake and alert. History and exam consistent with viral syndrome.] Medical Decision Making [viral syndrome. COPD.] Other additions or changes: [None] Lab Data Attestation: I reviewed the patient's lab results. Lab results narrative: CBC unremarkable. White count of 10. H&H of 15 and 48. Electrolytes unremarkable gap of 7 BUN 21 creatinine 1.2. Glucose 77. Chest x-ray negative. Labs: Laboratory Results - last 24 hr 02/11/22 02/11/22 16:55 16:55 WBC 10.2 RBC 5.12 Hgb 15.8 Hct 48.9 MCV 95.5 H MCH 30.9 MCHC 32.3 RDW Std Deviation 46.8 H RDW Coeff of Leyda 13.3 Plt Count 226 MPV 8.7 Immature Gran % (Auto) 1.100 H Neut % (Auto) 84.0 H Lymph % (Auto) 10.4 L [place] % (Auto) 4.2 Eos % (Auto) 0.1 Baso % (Auto) 0.2 Absolute Neuts (auto) 8.6 H Absolute Lymphs (auto) 1.06 Nucleated RBC % 0 Sodium 141 Potassium 3.8 Chloride 106 Carbon Dioxide 28.0 Anion Gap 7 BUN 21 H Creatinine 1.22 Estim Creat Clear Calc 60.94 Est GFR (MDRD) Af Amer 75 Est GFR (MDRD) Non-Af 62 BUN/Creatinine Ratio 17.2 Glucose 77 Calcium 8.9 Radiography Chest X-Ray - ED: 1 View, Read by ED Physician, Read by Radiologist, Heart, Lungs, Mediastinum, Bony Structures, No Acute Disease and Chronic Changes Diagnostic Testing: Clinical Impression(s) from Imaging Studies Chest X-Ray 02/11/22 16:17 IMPRESSION: No radiographic evidence of acute cardiopulmonary disease. Electronically Signed: Go Sarah MD at 16:43 EST Reading Location ID and State: [facility] / [place] Tel , Service support , Chest x-ray, portable, single view interpreted by myself and the radiologist shows no acute abnormality. Discharge Plan Triage Chief Complaint: Cold Sx Other Complaint: Chest Other ED Midlevel Provider: Tabatha Puentes ED Provider: Westley Delcid Dx/Rx/DC Orders Clinical Impression: COPD exacerbation, Viral URI Instructions: COPD: Chronic Coughing Prescriptions: New prednisone 20 mg tablet 40 mg PO DAILY 7 Days Qty: 14 0RF No Action ipratropium bromide 21 mcg (0.03 %) spray,non-aerosol 2 spray intranasal BID Rx Instructions: administer into each nostril guaifenesin 1,200 mg tablet extended release 12hr 1,200 mg PO Q12H Qty: 60 3RF (DME) PEP device See Rx Instructions .ROUTE .MEDSUPPLY Qty: 1 0RF Rx Instructions: with training benzonatate 100 mg capsule 100 mg PO Q8H PRN Label Comments: TAKE 1 TO 2 CAPSULES BY MOUTH EVERY 8 HOURS NEEDED for cough prednisone 20 mg tablet 60 mg PO QDAY Qty: 15 0RF Rx Instructions: administer with food or milk multivitamin 1 EACH tablet 1 each PO DAILY acetaminophen 325 MG tablet 650 mg PO Q6H PRN PRN (Reason: PAIN 1-10) 0RF nitroglycerin 0.4 MG tablet, sublingual 0.4 mg SL Q5M PRN (Reason: chest pain) Qty: 1 0RF potassium chloride 20 mEq tablet,ER particles/crystals 20 meq PO DAILYCM Qty: 90 1RF magnesium chloride 71.5 mg tablet,delayed release (DR/EC) 71.5 mg PO BID Qty: 180 1RF ipratropium-albuterol 0.5 mg-3 mg(2.5 mg base)/3 mL solution for nebulization 3 ml INHALATION Q4H.RT PRN (Reason: Wheezing) Qty: 180 0RF Trelegy Ellipta 100-62.5-25 mcg blister with device 1 inh inhalation DAILY Qty: 60 5RF montelukast 10 mg tablet 10 mg PO QPM Qty: 90 3RF amoxicillin-pot clavulanate 875-125 mg tablet 1 tab PO BID Qty: 20 0RF amlodipine 5 mg tablet 5 mg PO DAILY Qty: 90 3RF atorvastatin 80 mg tablet 80 mg PO QHS Qty: 90 3RF clopidogrel 75 mg tablet 75 mg PO DAILY Qty: 90 3RF levothyroxine 75 mcg tablet 75 mcg PO DAILY Qty: 90 3RF losartan 100 mg tablet 100 mg PO DAILY Qty: 90 3RF metoprolol succinate 50 mg tablet extended release 24 hr 50 mg PO QHS Qty: 90 3RF rivaroxaban 20 mg tablet 20 mg PO DAILY Qty: 90 3RF Rx Instructions: must administer with evening meal sertraline [Zoloft] 100 mg tablet 100 mg PO DAILY Qty: 90 3RF prednisone 10 mg tablet 10 mg PO DAILY Qty: 90 3RF albuterol sulfate 90 mcg/actuation HFA aerosol inhaler 2 inh INHALATION Q4H PRN PRN (Reason: Wheezing) Qty: 8.5 6RF Primary Care Provider: Sarah Lanier Referrals: Sarah Lanier MD [Primary Care Provider] - 5-7 Days Activity Restrictions/Additional Instructions: Please follow-up with band instrument maker. Please return if symptoms worsen. Disposition Disposition: Home, Self Care Discharge Date/Time: 02/11/22 18:58
[2022-02-11 17:07] LABS: Absolute Lymphocyte Count 1.06 X10^3/uL (0.83-4.51); Absolute Neutrophil Count 8.6 X10^3/uL (2.0-7.7); Basophil# 0.02 X10^3/uL; Basophil% 0.2 % (0-1); Eosinophil# 0.01 X10^3/uL; Eosinophils% 0.1 % (0-5); Hematocrit 48.9 % (40-54); Hemoglobin 15.8 g/dL (13.0-16.5); Lymphocyte # 1.06 X10^3/ul (0.83-4.51); Lymphocyte % 10.4 % (19-41); Mean Corp Hgb Conc 32.3 g/dL (32-36); Mean Corpuscular Hgb 30.9 pg (27.0-32.0); Mean Corpuscular Volume 95.5 fL (80-94); Mean Platelet Vol. 8.7 fl (6.2-12.0); Monocyte# 0.43 X10^3/uL; Monocyte% 4.2 % (0-10); NRBC Flagged by Analyzer 0 % (0-5); Neutrophil # 8.59 X10^3/uL (2.7-7.7); Platelet Count 226 K/mm3 (150-450); RBC Distribution Width CV 13.3 % (11.6-14.6); RBC Distribution Width SD 46.8 fl (35.1-43.9); Red Blood Count 5.12 M/mm3 (4.6-6.2); White Blood Count 10.2 K/mm3 (4.4-11.0)
[2022-02-11 17:19] LABS: Anion Gap 7 (5-15); BUN 21 mg/dL (7-18); BUN/Creat Ratio 17.2 RATIO (10-20); Calcium,Total 8.9 mg/dL (8.5-10.1); Chloride 106 mmol/L (98-107); Creatinine, Serum 1.22 mg/dL (0.70-1.30); EST Glomerular Filtration Rate 62 mL/min (>60); Est Glom Filt Rate - Afr Amer 75 mL/min (>60); Estimated Creatinine Clearance 60.94 ml/min; Glucose 77 mg/dL (74-106); Potassium 3.8 mmol/L (3.5-5.1); Sodium Level 141 mmol/L (136-145)
[2022-02-11 17:49] VITALS: PULSE 70; RESP 16; O2SAT 94
[2022-02-11 18:53] VITALS: O2SAT 95
== END 2022-02-11 18:58 | disposition home or self-care (01) ==
PROVIDERS: Physician Assistant; Emergency Provider Emergency Medicine; PCP Internal Medicine; Visit Provider Emergency Medicine
DX: J44.1 Chronic obstructive pulmonary disease with (acute) exacerbation (principal); J06.9 Acute upper respiratory infection, unspecified; I25.10 Atherosclerotic heart disease of native coronary artery without angina pectoris; I25.2 Old myocardial infarction; Z95.5 Presence of coronary angioplasty implant and graft; Z87.891 Personal history of nicotine dependence
CPT/HCPCS: 71046; 80048; 85025; 87428; 99282

== ENCOUNTER → 2022-04-23 | Outpatient (CLI) | payer MEDICARE, OTHER, SELFPAY ==
--- NOTE | 2022-04-23 13:30 | US_ITS ---
INDICATION: Urinary retention -- Need post void residual please EXAMINATION: US Kidney(s) complete (eg, kidneys and bladder) TECHNIQUE: Barragan scale and color doppler images were obtained of the kidneys. COMPARISON: None. FINDINGS: RIGHT KIDNEY: Measures 10.4 cm in length.. There is no hydronephrosis. No shadowing calculus, focal lesion or perinephric collection is demonstrated. LEFT KIDNEY: Measures 10.5 cm in length.. There is no hydronephrosis. No shadowing calculus, focal lesion or perinephric collection is demonstrated. URINARY BLADDER: Trabeculated with multiple diverticula. Postvoid residual of 100 cc. US/Kidney and Bladder IMPRESSION: Trabeculated bladder with multiple diverticuli and a post void residual of 100 cc. This is concerning for chronic bladder outlet obstruction. Electronically Signed: Baron Montes MD at 17:57 EST ,
--- NOTE | 2022-04-23 13:30 | CT_ITS ---
EXAM: CT CHEST WITHOUT INTRAVENOUS CONTRAST CLINICAL INDICATION: 40 pack year history quit 2018 TECHNIQUE: Helically acquired images were obtained of the chest without intravenous contrast. This CT exam was performed using one or more of the following dose reduction techniques: automated exposure control, adjustment of the mA and/or kV according to patient size, and/or use of iterative reconstruction technique. This report was created using [employer] report generation technology. COMPARISON: 12/08/2020 FINDINGS: LUNGS AND PLEURAL SPACES: Benign calcified granuloma in the right upper lobe. Mild diffuse emphysematous changes. 6 mm subpleural nodule in the right lower lobe. No pneumothorax. HEART: Unremarkable. Heart size is normal. No pericardial effusion. Coronary artery calcifications. MEDIASTINUM: Unremarkable. No mediastinal or hilar adenopathy. Esophagus is unremarkable. No hiatal hernia. THYROID: Unremarkable. No thyroid lesions. BONES/JOINTS: Degenerative changes of the spine. No suspicious lytic or blastic abnormality. VASCULATURE: Unremarkable. Thoracic aorta is non-dilated. CT/Low Dose CT Lung Screening IMPRESSION: 1. There is a 6 mm subpleural nodule in the right lower lobe, unchanged compared with 12/08/[address] Screening Reporting T Data System (Lung-RADS) score: 2 - Benign Appearance or Behavior. Recommend continued annual screening with low-dose CT (LDCT) in 12 months. 2. Coronary artery calcifications. Electronically Signed: Sarabjit Humphries MD at 5:41 EST ,
== END | disposition home or self-care (01) ==
LOC: CT 13:27
PROVIDERS: PCP Internal Medicine; Referring Provider Nurse Practitioner Acute Care; Visit Provider Nurse Practitioner Acute Care
DX: Z87.891 Personal history of nicotine dependence (principal); R97.0 Elevated carcinoembryonic antigen [CEA]; R33.9 Retention of urine, unspecified
CPT/HCPCS: 71271; 76770

== ENCOUNTER → 2023-04-16 | Outpatient (CLI) | payer MEDICARE, OTHER, SELFPAY ==
[2023-04-16 16:22] LABS: Absolute Lymphocyte Count 1.54 X10^3/uL (0.83-4.51); Absolute Neutrophil Count 7.7 X10^3/uL (2.0-7.7); Basophil# 0.07 X10^3/uL; Basophil% 0.7 % (0-1); Eosinophil# 0.12 X10^3/uL; Eosinophils% 1.1 % (0-5); Hematocrit 44.8 % (40-54); Hemoglobin 13.8 g/dL (13.0-16.5); Lymphocyte # 1.54 X10^3/ul (0.83-4.51); Lymphocyte % 14.8 % (19-41); Mean Corp Hgb Conc 30.8 g/dL (32-36); Mean Corpuscular Hgb 30.4 pg (27.0-32.0); Mean Corpuscular Volume 98.7 fL (80-94); Monocyte# 0.86 X10^3/uL; Monocyte% 8.2 % (0-10); NRBC Flagged by Analyzer 0 % (0-5); Neutrophil # 7.72 X10^3/uL (2.7-7.7); Platelet Count 272 K/mm3 (150-450); RBC Distribution Width CV 13.7 % (11.6-14.6); RBC Distribution Width SD 49.6 fl (35.1-43.9); Red Blood Count 4.54 M/mm3 (4.6-6.2); White Blood Count 10.4 K/mm3 (4.4-11.0)
[2023-04-16 16:55] LABS: Vitamin B12 303 pg/mL (211-911); Vitamin D,25 Hydroxy 27.3 ng/mL
[2023-04-16 17:03] LABS: ALB/GLOB Ratio 0.8 RATIO (0.9-2.4); AST(SGOT) 34 U/L (15-37); Alanine Aminotransfer ALT/SGPT 54 U/L (16-61); Alkaline Phosphatase 90 U/L (45-117); Anion Gap 6 (5-15); BUN 32 mg/dL (7-18); BUN/Creat Ratio 26.7 RATIO (10-20); Calcium,Total 9.1 mg/dL (8.5-10.1); Chloride 109 mmol/L (98-107); EST Glomerular Filtration Rate 63 mL/min (>60); Est Glom Filt Rate - Afr Amer 76 mL/min (>60); Free T3 2.1 pg/mL (2.18-3.98); Globulin 3.8 g/dL (2.2-4.2); Glucose 82 mg/dL (74-106); Magnesium 2.1 mg/dL (1.6-2.6); PSA,Total - Annual Screen 3.86 ng/mL (0.00-4.00); Potassium 3.8 mmol/L (3.5-5.1); Protein, Total 6.8 g/dL (6.4-8.2); Sodium Level 141 mmol/L (136-145); T4 Free Direct 0.83 ng/dL (0.76-1.46); Thyroid Stim Hormone (TSH) 1.95 uIU/mL (0.358-3.74)
[2023-04-16 17:22] LABS: Hemoglobin A1c 5.7 % (3.8-5.6)
== END | disposition home or self-care (01) ==
LOC: LAB 15:09
PROVIDERS: PCP Internal Medicine; Referring Provider Internal Medicine; Visit Provider Internal Medicine
DX: R33.9 Retention of urine, unspecified (principal); J44.9 Chronic obstructive pulmonary disease, unspecified; I77.9 Disorder of arteries and arterioles, unspecified; J47.9 Bronchiectasis, uncomplicated; E03.9 Hypothyroidism, unspecified; Z87.891 Personal history of nicotine dependence; E78.5 Hyperlipidemia, unspecified; Z79.01 Long term (current) use of anticoagulants; I10 Essential (primary) hypertension; I25.10 Atherosclerotic heart disease of native coronary artery without angina pectoris; Z12.5 Encounter for screening for malignant neoplasm of prostate; E53.8 Deficiency of other specified B group vitamins; E55.9 Vitamin D deficiency, unspecified; R73.9 Hyperglycemia, unspecified
CPT/HCPCS: 36415; 80053; 82306; 82607; 83036; 83735; 84153; 84439; 84443; 84481; 85025; G0103

== ENCOUNTER → 2024-03-31 | Outpatient (CLI) | payer MEDICARE, OTHER, SELFPAY ==
--- NOTE | 2024-03-31 19:02 | CT_ITS ---
PROCEDURE: CHEST WITHOUT CONTRAST REASON FOR EXAM: Cough. Shortness of breath. Chest pain. TECHNIQUE: Chest CT without intravenous contrast at 2.5 mm slice thicknesses. Sagittal and coronal reconstructed images were also obtained. : COMPARISON: CT chest dated 03/17/2023. FINDINGS: CHEST: Lines and tubes: None. Mediastinum: No evidence of mediastinal hemorrhage. Heart: Normal heart size. No pericardial effusion. Mild coronary artery calcifications. Thoracic Aorta: No evidence of acute traumatic aortic injury. Ascending aortic artery diameter measures 4.3 cm. Atherosclerotic calcifications of the aorta. Pulmonary arteries: Unremarkable. Lungs and Airways: Diffuse centrilobular emphysematous changes. 8.5 cm noncalcified micronodule, left lower lobe, axial image 111. 8.5 cm calcified granuloma in the right upper lobe, axial image 43. A noncalcified subpleural micronodule in the right lower lobe, axial image 82. Pleura: No pleural effusion. No pneumothorax. Bones: Multilevel spondylosis. Mild anterior wedging of the T11 and T12 vertebra. Upper abdomen: Small cortical cysts, right kidney. CT/Chest without Contrast IMPRESSION: Severe diffuse centrilobular emphysematous changes. Noncalcified micronodule in the left lower lobe, slightly more prominent when c ompared to the previous study. Consider six-month follow-up for surveillance. Right upper lobe calcified granuloma. Noncalcified subpleural micronodule in the right lower lobe. Fusiform aneurysm of the ascending aorta. Old compression abnormalities of T11 and T12. Small cortical cysts, right kidney. Other nonacute findings detailed above. One or more dose reduction techniques were used (e.g., Automated exposure contr ol, adjustment of the mA and/or kV according to patient size, use of iterative reconstruction technique). Reading Location: [facility]
== END | disposition home or self-care (01) ==
LOC: CT 18:59
PROVIDERS: PCP Internal Medicine; Referring Provider Nurse Practitioner Acute Care; Visit Provider Nurse Practitioner Acute Care
DX: R91.1 Solitary pulmonary nodule (principal)
CPT/HCPCS: 71250

== ENCOUNTER 2024-06-24 11:24 | Outpatient (CLI) | payer MEDICARE, OTHER, SELFPAY ==
[2024-06-24 12:19] LABS: Absolute Lymphocyte Count 1.36 X10^3/uL (0.83-4.51); Absolute Neutrophil Count 4.3 X10^3/uL (2.0-7.7); Basophil# 0.02 X10^3/uL; Basophil% 0.3 % (0-1); Eosinophil# 0.03 X10^3/uL; Eosinophils% 0.5 % (0-5); Hematocrit 45.7 % (40-54); Hemoglobin 14.8 g/dL (13.0-16.5); Lymphocyte # 1.36 X10^3/ul (0.83-4.51); Lymphocyte % 21.6 % (19-41); Mean Corp Hgb Conc 32.4 g/dL (32-36); Mean Corpuscular Hgb 30.4 pg (27.0-32.0); Mean Corpuscular Volume 93.8 fL (80-94); Monocyte# 0.54 X10^3/uL; Monocyte% 8.6 % (0-10); NRBC Flagged by Analyzer 0 % (0-5); Neutrophil # 4.31 X10^3/uL (2.7-7.7); Neutrophil % 68.2 % (47-70); Platelet Count 254 K/mm3 (150-450); RBC Distribution Width CV 13.1 % (11.6-14.6); RBC Distribution Width SD 44.7 fl (35.1-43.9); Red Blood Count 4.87 M/mm3 (4.6-6.2); White Blood Count 6.3 K/mm3 (4.4-11.0)
[2024-06-24 13:13] LABS: ALB/GLOB Ratio 1.3 RATIO (0.9-2.4); AST(SGOT) 21 U/L (<=37); Alanine Aminotransfer ALT/SGPT 13 U/L (<=46); Albumin, Serum 3.5 g/dL (3.4-4.8); Alkaline Phosphatase 89 U/L (40-129); Anion Gap 11 (5-15); BUN 16 mg/dL (4-19); BUN/Creat Ratio 12.8 RATIO (10-20); Calcium,Total 8.6 mg/dL (7.6-11.0); Carbon Dioxide 21.8 mmol/L (21.0-32.0); Chloride 106 mmol/L (98-108); Cholesterol 205 mg/dL (<=200); Creatinine, Serum 1.23 mg/dL (0.70-1.20); EST Glomerular Filtration Rate 61 (>60); Globulin 2.7 g/dL (2.2-4.2); Glucose 93 mg/dL (70-99); High Density Lipoprotein 39 mg/dL; Low Density Lipoprotein Calc. 140 mg/dL; Magnesium 1.9 mg/dL (1.5-2.2); Potassium 4.1 mmol/L (3.3-5.1); Protein, Total 6.2 g/dL (5.9-8.4); Sodium Level 139 mmol/L (133-145); Triglycerides 130 mg/dL; Very Low Density Lipoprotein 26 mg/dL (5-40); cholesterol:hdl ratio screen 5.23
[2024-06-24 13:16] LABS: Free T3 1.9 pg/mL (2.18-3.98); PSA,Total - Annual Screen 2.58 ng/mL (0.02-4.00); Vitamin D,25 Hydroxy 26.3 ng/mL (30-100)
== END 2024-06-24 23:59 | disposition home or self-care (01) ==
LOC: LAB 11:25
PROVIDERS: PCP Internal Medicine; Referring Provider Internal Medicine; Visit Provider Internal Medicine
DX: I48.0 Paroxysmal atrial fibrillation (principal); Z12.5 Encounter for screening for malignant neoplasm of prostate; E55.9 Vitamin D deficiency, unspecified; Z13.220 Encounter for screening for lipoid disorders; E78.5 Hyperlipidemia, unspecified
CPT/HCPCS: 36415; 80053; 80061; 82306; 83735; 84153; 84439; 84443; 84481; 85025; G0103

== ENCOUNTER 2024-10-13 19:58 | Inpatient (IN) | payer MEDICARE, OTHER, SELFPAY ==
--- NOTE | 2024-10-13 20:26 | HP.PCM_ITS ---
HPI - General General Date of Admission: 10/13/24 Date of Service: 10/14/24 Chief Complaint: Here for rehabilitation. HPI Narrative CHERYL DE LA FUENTE, is a 73 Male who presents with followin09/27/[address] [facility]. COPD on 2 liters oxygen at home, HTN, atrial fibrillation on Xarelto, CAD (cath 03/2022) on Plavix, history of CVA. Shortness of breath, lower abdominal pain for 2-3 days, he went to OSH ED and was found to have an infrarenal ruptured AAA. He was transferred to directly to OR for EVAR. Percutaneous closure of right common femoral access and left femoral cutdown and patch angioplasty for repair of left common femoral artery. Patient presented to SICU s/p EVAR, Arrived to the ICU off vasopressors. 09/27/2024 CTA chest/abdomen/pelvis negative for pulmonary embolism. Subsegmental atelectasis in the right middle lobe with volume loss. No pleural effusion. Moderate aortic valve atherosclerotic calcifications and coronary artery atherosclerotic calcifications. Clinical correlation for bicuspid valve or aortic stenosis recommended. . Marked irregularity and outpouching of the infrarenal abdominal aorta measuring 8.0 x 5.2cm axillay with surrounding left retroperitoneal low density hematoma compatible with infrarenal abdominal aortic aneurysm rupture. Small amount of low density free fluid in the dependent portion of the pelvis. Vascular consultation recommended. Prostatomegaly and trabeculated bladder compatible with bladder outlet obstruction. Hydromorphone prn for pain control. Lidoderm patches surrounding surgical incision. PT/OT. NG tube placed for dark red blood emesis. 09/28/2024 Hypotension treated with albumin, 2 units PRBC, and Levo. Endoleak. Indwelling baldwin for bladder outlet obstruction. 09/29/2024 Emergent intubation for acute respiratory failure. 10/02/2024 Extubated. 10/06/2024 C. Diff negative. 10/07/2024 Doppler ultrasound positive right lower extremity dvt, treated with bivalrudin. 10/12/2024 No issues over night, tolerated CPAP overnight. PT/OT for SNF. Start Plavix today, wait to start Xarelto. Lasix 40mg IV for pulmonary edema, weight increase. 10/13/2024 Admit to TCU with debility, here for rehabilitation, strengthening, prior to discharge home alone. PFSH Medical History (Updated 10/13/24 @ 20:[address] Norris Olmedo MD) Cellulitis of right lower extremity Carotid artery disease Cerebrovascular disease Stroke BPH (benign prostatic hyperplasia) Snuff user Former smoker History of PTCA 1 History of non-ST elevation myocardial infarction (NSTEMI) Coronary artery disease Mild aortic stenosis Paroxysmal atrial fibrillation Debility Left ventricular hypertrophy COPD (chronic obstructive pulmonary disease) Chronic anticoagulation Hyperlipidemia Hypertension Home Medications ?Medication ?Instructions ?Recorded ?Last Taken ?Type multivitamin 1 each PO DAILY vitamin 06/01 03/23 Unknown History acetaminophen 325 mg tablet 650 mg (2 x 325 mg) PO Q6H PRN PRN 06/22/20 Unknown Rx PAIN 1-10 nitroglycerin 0.4 mg sublingual 0.4 mg sublingual Q5M PRN chest 06/22/20 Unknown Rx tablet pain #1 BOTTLE PEP device #1 ea 02/16/21 Unknown Rx benzonatate 100 mg capsule 100 mg PO Q8H PRN 05/22/21 Unknown History spironolactone 25 mg tablet 12.5 mg PO DAILY blood pre ssure 04/14/23 Unknown History amlodipine 5 mg tablet 5 mg PO DAILY blood pressure #90 01/20/24 Unknown Rx tabs atorvastatin 80 mg tablet 80 mg PO QHS cholesterol #90 tabs 01/20/24 Unknown Rx clopidogrel 75 mg tablet 75 mg PO DAILY blood thinner #90 01/20/24 Unknown Rx tabs furosemide 20 mg tablet 10 mg (1/2 x 20 mg) PO Q OTH ER DAY 01/20/24 Unknown Rx hypertension #60 tabs levothyroxine 75 mcg tablet 75 mcg PO DAILY thyroid #9 0 tabs 01/20/24 Unknown Rx losartan 100 mg tablet 100 mg PO DAILY #90 tabs Unknown Rx magnesium chloride 71.5 mg 71.5 mg PO BID #180 tabs Unknown Rx (magnesium chloride) tablet,delayed release rivaroxaban 20 mg tablet 20 mg PO DAILY DVT prophylax is #90 01/20/24 Unknown Rx tabs sertraline 100 mg tablet (Zoloft) 100 mg PO DAILY depr ession #90 tabs 01/20/24 Unknown Rx montelukast 10 mg tablet 10 mg PO QPM asthma #90 tabs 03/16/24 Unknown Rx albuterol sulfate 90 mcg/actuation 2 inh inhalation Q4 H PRN PRN 05/24/24 Unknown Rx aerosol inhaler Wheezing #8.5 grams omalizumab 300 mg/2 mL 300 mg (2 mL) subcut Q4W #2 mL 07/14/24 Unknown Rx subcutaneous auto-injector (Xolair) budesonide 1 mg/2 mL suspension 1 mg (2 mL) inhalation BID COPD 08/11/24 Unknown Rx for nebulization #60 mL bisacodyl 5 mg tablet,delayed 10 mg PO DAILY PRN const ipation 10/13/24 Unknown History release (Dulcolax (bisacodyl)) clopidogrel 75 mg tablet (Plavix) 75 mg PO DAILY blood thinner 10/13/24 Unknown History ipratropium 0.5 mg-albuterol 3 mg 3 ml inhalation Q6H PRN wheezing 10/13/24 Unknown History (2.5 mg base)/3 mL nebulization soln metoprolol succinate 50 mg 50 mg PO DAILY blood pressu re 10/13/24 Unknown History tablet,extended release 24 hr pantoprazole 40 mg tablet,delayed 40 mg PO DAILY stoma ch acid 10/13/24 Unknown History release potassium chloride 20 mEq 20 meq PO DAILY supplement 0 10/13/24 Unknown History tablet,extended release(part/cryst) prednisone 10 mg tablet 5 mg PO DAILY COPD 10/13/24 Unknown History tamsulosin 0.4 mg capsule (Flomax) 0.4 mg PO DAILY pro state 10/13/24 Unknown History Allergy/AdvReac Type Severity Reaction Status Date / Time Seasonal Allergies: Uncoded Allergy Congestion Verified 07/14/24 14:56 codeine AdvReac NEEDS Verified 07/14/24 14:56 FOLLOW-UP Family History Other Heart disease Hypertension Surgical History History of sinus surgery History of heart artery stent Social History household members: none Smoking Status: Former smoker quit date: 03/03/05 pack-years: 30 Tobacco: How many years used: 20 alcohol intake: former substance use type: does not use what type of physical activity do you participate in: none ROS Constitutional Constitutional: Reports weakness; Denies chills, fever(s) or weight gain ENT HEENT: Denies headache(s), nasal congestion or nasal discharge Cardiovascular Cardiovascular: Denies chest pain or palpitations Respiratory/Chest Respiratory/Chest: Reports dyspnea, dyspnea on exertion, shortness of breath at rest and shortness of breath with exertion; Denies cough or excessive phlegm production Gastrointestinal Gastrointestinal: Denies abdominal pain, nausea or vomiting Genitourinary Genitourinary: Denies dysuria Musculoskeletal Musculoskeletal: Denies joint pain or joint swelling Integumentary Integumentary: Denies rash or wounds Neurologic Neurologic: Denies focal weakness, numbness or tingling Psychiatric Psychiatric: Denies anxiety, auditory hallucinations, depression, homicidal ideation or suicidal ideation Physical Exam Const alert General Appearance: cooperative HEENT normocephalic Eyes PERRL and EOMs intact bilaterally Neck supple, no JVD and no carotid bruits Resp Auscultation: crackles bilateral and diminished lung sounds bilateral Cardio regular rate and regular rhythm GI normal to inspection, nondistended, normoactive bowel sounds, non-tender and non-distended Extremity normal capillary refill General Extremity: Negative for edema Skin no rashes or lesions noted General Skin Exam: no breakdown Psych affect normal Appearance: appropriate Results Lab / Micro Data 10/14/24 05:15 10/14/24 05:15 Assessment & Plan Assessment/Plan (1) Debility: (2) Ruptured abdominal aortic aneurysm: (3) 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): (4) Acute respiratory failure with hypoxia: (5) Postoperative ileus: (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): (7) DVT (deep venous thrombosis): (8) Atrial fibrillation: (9) COPD (chronic obstructive pulmonary disease): (10) Coronary artery disease: (11) Hypertension: (12) Chronic heart failure with preserved ejection fraction (HFpEF): (13) Hypothyroidism: (14) Asthma: (15) Depression: (16) BPH (benign prostatic hyperplasia): PLAN: Plan 73 year old male with below past medical history hospitalized for ruptured abdominal aortic aneurysm, underwent EVAR, complicated by endoleak, acute respiratory failure requiring reintubation, postoperative ileus, heparin induced thrombocytopenia, right lower extremity dvt, admitted to TCU with debility, here for rehabilitation, strengthening, prior to discharge home alone. * Debility - PT/OT. * Pain - Tylenol 1000mg q6 prn pain (1-10). * Bowel - senna/colace 1 tablet bid, Magnesium citrate 300mL daily prn, Dulcolax 10mg daily prn. * Adult immunization - Administer pneumonia vaccine, covid vaccine, flu vaccine as appropriate. * DVT prophylaxis - Xarelto. * Acute respiratory failure with hypoxia - Chest X-ray. * COPD - Budesonide 1mg neb bid, Duoneb 3mL neb q6 prn, Albuterol 2 puffs q4 prn, Prednisone 5mg daily. * Hypertension - Metoprolol succinate 50mg daily, Amlodipine 5mg daily. * Hyperlipidemia - Atorvastatin 80mg qhs. * Coronary artery disease - Metoprolol succinate 50mg daily, Plavix 75mg daily, NTG 0.4mg sl q5m prn. * Chronic HFpEF - Metoprolol succinate 50mg daily, Aldactone 12.5mg daily, Furosemide 10mg every other day. * Hypothyroidism - Levothyroxine 75mcg daily. * Asthma - Budesonide 1mg neb bid, Duoneb 3mL neb q6 prn, Albuterol 2 puffs q4 prn, Prednisone 5mg daily, Singulair 10mg daily. * GERD - Pantoprazole 40mg daily. * Hypokalemia - KCL 20meq daily. * Atrial fibrillation - Metoprolol succinate 50mg daily, Xarelto 20mg daily. * Right lower extremity dvt - Xarelto 20mg daily. * BPH/urinary retention - Increase Tamsulosin 0.4mg twice daily, add Finasteride 5mg daily, straight cath as needed, indwelling baldwin if straight cath x 3. The following psychotropic medication was present on admission: Sertraline 100mg daily. Psychotropic medication therapy is indicated for a diagnosis of: Major Depression. Based on my clinical evaluation, continuation of the medication is necessary at this time. Gradual dose reduction plan (select one): ____ GDR will be attempted. Will monitor patient symptoms and behaviors in response to GDR. __x__ GRD contraindicated. Reason contraindicated: stable chronic alf use.
[2024-10-13 20:48] VITALS: BMI 23.5
[2024-10-13 21:00] VITALS: BP 123/79; PULSE 82; RESP 18; RESP 21; TEMP 36.5; O2SAT 97; BMI 23.5
[2024-10-13 22:07] VITALS: PULSE 87; RESP 20; O2SAT 92
[2024-10-13 22:59] VITALS: PULSE 84; O2SAT 92
[2024-10-14] VITALS (8 sets, daily range): BP systolic 120; BP diastolic 76; PULSE 71–89; RESP 18–24; TEMP 36.6; O2SAT 93–98
--- NOTE | 2024-10-14 02:10 | NURSING ---
PATIENT ARRIVED ON TCU FLOOR @ 194, PATIENT IS A/O X3, FAMILY (DAUGHTER) AT BEDSIDE. PATIENT HAS NO COMPLAINTS AT THIS TIME. ADMISSION ASSESSMENT COMPLETE AND EVENING MEDICATIONS ADMINISTERED AT APPROX 2200, RESPIRATORY CAME TO FLOOR PER PATIENT AND FAMILY REQUEST FOR BREATHING TREATMENT. BREATHING TREATMENT ADMINISTERED BY RESPIRATORY. VITALS STABLE AND FOLLOWED PULSE 82, O2 97% ON 3L, BP, 123/79, RR 16 NON LABORED BREATHING OR DIFFICULTY BREATHING AT THIS TIME. RESPIRATORY ALSO PROVIDED PATIENT WITH CPAP AND TO BE WORN @HS WITH 3L OF O2 BLED INTO LINE. PATIENT ARRIVED W/ L UPPER PICC AND L WRIST SL, L WRIST SL PULLED, DUE TO BLEEDING CONTINUOUSLY AFTER FLUSH, PRESSURE APPLIED IN ATTEMPT TO STOP THE BLEEDING, THIS NURSE PULLED THE SL IN L WRIST DUE TO BLEEDING, WHEN PRESSURE APPLIED BLEEDING STOPPED, DRY DRESSING APPLIED. ANDER PICC IN PLACE AND FLUSHED, WITH GOOD BLOOD RETURN. PATIENTS DAUGHTER EXPRESSED CONCERNS FOLLOWS:URINARY RETENTION, PATIENT MEDICATIONS, AND 02. ALL CONCERNS ADDRESSED WITH CARE TEAM, AND NOTIFIED. PATIENT HAS WOUNDS TO ANDER PATIENT, PATIENT ASKED THAT DRESSING NOT TO BE REMOVED AND KEPT IN PLACE AT THIS TIME, MEPALEX ON BOTTOM THIS NURSE REMOVED MEPOLEX THERE WAS NO WOUND PRESENT. NO OTHER COMPLAINTS FROM PATIENT AT THIS TIME, PATIENT RESTING IN BED, 3L OF O2 WITH CPAP APPLIED. WILL CONTINUE TO MONITOR.
[2024-10-14 05:52] LABS: Hematocrit 32.1 % (40-54); Hemoglobin 10.2 g/dL (13.0-16.5); Immature Granulocytes Count 0.180 X10^3/uL (0.0-0.0); Mean Corp Hgb Conc 31.8 g/dL (32-36); Mean Corpuscular Volume 91.5 fL (80-94); Mean Platelet Vol. 9.4 fl (6.2-12.0); NRBC Flagged by Analyzer 0 % (0-5); Platelet Count 318 K/mm3 (150-450); RBC Distribution Width CV 16.7 % (11.6-14.6); RBC Distribution Width SD 55.5 fl (35.1-43.9); Red Blood Count 3.51 M/mm3 (4.6-6.2); White Blood Count 7.9 K/mm3 (4.4-11.0)
[2024-10-14 06:20] LABS: Anion Gap 11 (5-15); BUN 20 mg/dL (4-19); BUN/Creat Ratio 23.1 RATIO (10-20); Calcium,Total 8.5 mg/dL (7.6-11.0); Carbon Dioxide 24.5 mmol/L (21.0-32.0); Chloride 103 mmol/L (98-108); Estimated Creatinine Clearance 81.05 ml/min (50-250); Glucose 92 mg/dL (70-99); Potassium 3.7 mmol/L (3.3-5.1)
--- NOTE | 2024-10-14 08:03 | NURSING ---
THIS NURSE PERFORMED A BLADDER SCAN ON PATIENT DUE TO HISTORY OF BLADDER RETENTION AND NO VOIDING THIS SHIFT, BLADDER SCAN RESULT OF 422cc, THIS NURSE AND J[employer] TB PERFORMED A STANDING ORDER OF STRAIGHT CATH WITH AN OUTPUT OF 300cc, PATIENT WAS ALSO INCONTINENT OF URINE PRIOR TO STRAIGHT CATH PROCEDURE. WILL CONTINUE TO MONITOR AND PASSED ALONG IN REPORT TO CONTINUE BLADDER TRIALS.
--- NOTE | 2024-10-14 09:52 | MDS.RN ---
Entry Tracker MDS completed. Resident denies pain.
[2024-10-14] MEDS: Potassium Chloride Oral Tablet 20 MEQ PO (10:07)
[2024-10-14] MEDS: Senna/Docusate Sodium 1 Tablet PO (10:09)
[2024-10-14] MEDS: Metoprolol(XL)Succ 50 MG Tablet PO (10:09)
--- NOTE | 2024-10-14 11:34 | NURSING ---
Reviewed CTA results with Dr. Olmedo via telephone, orders for IS and medrol dose pack. Hold daily dose of prednisone while on dose pack, resume once completed.
[2024-10-14] MEDS: Tuberculin,Purif.prot.deriv. 50 TU/ML Vial 0.1 ML ID (11:37)
[2024-10-14] MEDS: 0.9% Saline Lock 10 ML Syringe IV (11:39)
[2024-10-14] MEDS: MethylPREDNISolone DosePak 4 MG BOX PO ×3 (12:49→21:43)
--- NOTE | 2024-10-14 14:36 | CHAPLAIN ---
Type of Pastoral Visit _x__ Initial Visit ___ Follow-up Visit ___ On-call Visit ___ General Patient Visit ___ Spiritual Assessment ___ Family Conference ___ Bereavement ___ Rapid Response ___ Code Blue ___ Other (describe below) Pastoral Care Referral From _x__ Patient ___ Family ___ Nurse ___ Physician ___ Hematology Oncology Consultant ___ Desktop Support Engineer ___ Other (describe below) Sacrament/Intervention ___ Active listening ___ Anointing ___ Bahai ___ Bereavement ___ Communion ___ Opal exploration ___ ___ Life review _x__ Prayer ___ Reconciliation ___ Sacrament of Sick _x__ Supportive presence ___ Wedding ___ Other (describe below) Pastoral Comments patient was admitted yesterday to TCU; pt is trying to nap and states that he does not feel well; offer of support and making it a brief visit welcomed; pt says for now just say a prayer; offer to return another day for a longer visit
[2024-10-14] MEDS: Albuterol IH (6.7 GM) 1 PUFF INHALER 2 PUFF INHALATION (15:00)
--- NOTE | 2024-10-14 15:54 | NURSING ---
PT DAUGHTER VASILIY ASKING TO SPEAK WITH THE MOUNTER SOUSAPHONES AND . THIS NURSE NOTIFIED BOTH. THIS NURSE ALSO UPDATED DAUGHTER ON TODAYS TESTS AND RESULTS AND HOW PT HAS BEEN DOING THREW THE DAY AND ANSWERED HER QUESTIONS.
--- NOTE | 2024-10-14 16:46 | CASEMGMT ---
Addendum entered by Margaret Marcial 10/14/24 17:02: Addendum: also discussed was pt's advance directives. Dtr provided HCPOA on her phone and this worker reviewed named agents. Pt's dtr Kailey is primary and dtr Ashtyn is secondary. Ashtyn requested clarification to order of decision making since she was in town and Kailey was out of state. SW explained that if there a healthcare decision that needed made when the pt could not make it himself, Kailey would be making that decision. Kailey can defer to Ashtyn d/t Ashtyn being local or more involved in pt's medical care, but legally, that is how the document is written. However, pt elected Ashtyn as primary contact during stay for updates, etc. SW offered if pt elects to complete new advance directives to name Ashtyn as primary agent, this worker can assist. Ashtyn expressed interest in this and agreed for SW to follow up with pt once he is more stable. SW noted. Original Note: Social Work SW met with patient approximately 1030, to complete initial assessment. Introduced self and role, though, pt known to this worker from previous stay. Verified/updated contacts. SW and pt discussed code status and pt wishes to be a full code. SW educated to Medicare benefit and copay coverage. Pt's goal is to return home alone. - Dtr, Ashtyn, present and requested to speak with this worker. SW spoke with dtr 1:1. SW answered multiple questions. Dtr inquired about TCU's ability to properly care for pt's needs. SW educated that pt would not be admitted if TCU cannot care for pt's needs, though, if pt's needs do change and TCU is unable to properly meet pt's needs, this worker will discuss with pt and dtr a transfer to another location that can. SW explained at any time if pt has a change in condition, Dr. Olmedo can order pt to the ED, then the ED Physician would decide if pt needs to be admitted to acute or can return to TCU. Dtr appreciative of that explanation knowing pt has access to a different LOC. SW explored if dtr has concerns currently. Dtr expressed concerns with pt's respiratory status. SW educated that there are respiratory therapists on staff and assisting with pt's care as appropriate. Dtr then inquired about housekeeping and laundry. SW educated that housekeeping cleans the patient's room daily and as needed, and family completes pt's laundry. Dtr inquired about Medicare coverage, which also lead into options for DC and insurance coverage for those options, along with estimated LOS and issuance of DC. SW educated extensively to Medicare coverage, days 1-20 covered at 100%, days 21-100 have a $209.50/copay, that would be billed to the pt at the conclusion of his TCU stay, if the secondary insurance does not cover the copays. Encouraged dtr to contact secondary insurance to inquire about copay coverage. Explained pt must meet skilled criteria with nursing or therapy, noting a decline or plateau are means for DC. If pt is unable to safely return home, i.e. nursing needs, rose mary lift or x2 assist, a SNF is likely recommended and that is an OOP cost, with part B therapies. If pt elects to DC home or recommended to go home, i.e. x1 assist, private duty aides can be hired at an OOP cost, and SW to coordinate skilled HHC or OP therapy, and DME needs. Offered to assist with Medicaid eligibility, but dtr stated pt would be over resources. PORTER discussed refusals with therapy or nursing care, as means for DC. Medicare requires a 3-day notice at minimum for DC, but IDT goal is open communication and ample notice for DC. SW to assist with navigation of DC plans. Dtr appreciative of time and information as she wrote notes of all this worker's explanation. PORTER provided dtr with direct contact information for further assistance. Margaret Marcial MSW ONCOLOGY REGISTRAR
[2024-10-15] VITALS (8 sets, daily range): BP systolic 113; BP diastolic 70; PULSE 79–117; RESP 17–28; TEMP 35.8; O2SAT 90–96
[2024-10-15] MEDS: 0.9% Saline Lock 10 ML Syringe IV ×2 (06:15→15:54)
[2024-10-15] MEDS: Potassium Chloride Oral Tablet 20 MEQ PO (09:28)
[2024-10-15] MEDS: MethylPREDNISolone DosePak 4 MG BOX PO ×4 (09:28→20:25)
[2024-10-15] MEDS: Senna/Docusate Sodium 1 Tablet PO ×2 (09:31→20:29)
[2024-10-15] MEDS: Metoprolol(XL)Succ 50 MG Tablet PO (09:31)
[2024-10-15] MEDS: Albuterol IH (6.7 GM) 1 PUFF INHALER 2 PUFF INHALATION ×2 (11:53→19:31)
--- NOTE | 2024-10-15 12:02 | PHA.CONS_ITS ---
Documented by User: Dyan Holden 10/15/24 12:45 TCU RX Drug Regimen Review Subjective/Objective Subjective/Objective Subjective: TCU Admission. 73 YOM presented to outside ER with SOB and abdominal pain. Hospitalized for ruptured abdominal aortic aneurysm, underwent EVAR, complicated by endoleak, acute respiratory failure requiring reintubation, postoperative ileus, heparin induced thrombocytopenia, right lower extremity dvt. Admitted to TCU with debility for strengthening and rehabilitation. Objective: Allergies Seasonal Allergies: Uncoded Allergy (Verified 07/14/24 14:56) Congestion codeine Adverse Reaction (Verified 07/14/24 14:56) NEEDS FOLLOW-UP Current Medications Generic Name Dose Route Start Last Admin Trade Name Freq PRN Reason Stop Dose Admin Acetaminophen 1,000 mg 10/13/24 21:03 Acetaminophen 500 Mg Tablet PO Q6H PRN PRN PAIN 1-10 Albuterol Sulfate 2 puff 10/13/24 20:36 10/15/24 11:53 Albuterol Ih (6.7 Gm) 1 Puff Inhaler INHALATION 2 puff Q4H PRN PRN Administration Wheezing Albuterol/Ipratropium 3 ml 10/14/24 17:30 10/14/24 19:03 Ipratropium/Albuterol Sulfate 3 Ml Ampul.Neb INHALATION 3 ml Q6H.RT EDILIA Administration Amlodipine Besylate 5 mg 10/14/24 10:00 10/15/24 09:30 Amlodipine 5 Mg Tablet PO 5 mg DAILY EDILIA Administration Protocol Atorvastatin Calcium 80 mg 10/13/24 22:00 10/14/24 21:43 Atorvastatin Calcium 80 Mg Tablet PO 80 mg QHS EDILIA Administration Bisacodyl 10 mg 10/13/24 20:45 Bisacodyl 5 Mg Tablet PO DAILY PRN PRN constipation Budesonide 0.5 mg 10/19/24 17:30 Budesonide Respules 0.5 Mg/2 Ml Ampul.Neb. INHALATION BID.RT EDILIA Calamine/Phenol 1 applic 10/14/24 10:00 10/15/24 09:29 Menthol/Lanolin/Calamine/Znox 113 Gm Tube TOPICAL 1 applic BID EDILIA Administration Protocol Clopidogrel Bisulfate 75 mg 10/14/24 10:00 10/15/24 12:00 Clopidogrel Bisulfate 75 Mg Tablet PO 75 mg DAILY EDILIA Administration Finasteride 5 mg 10/14/24 10:00 10/15/24 09:30 Finasteride 5 Mg Tablet PO 5 mg DAILY EDILIA Administration Furosemide 10 mg 10/15/24 10:00 10/15/24 09:30 Furosemide 20 Mg Tablet PO 10 mg QODAY EDILIA Administration Protocol Levothyroxine Sodium 75 mcg 10/14/24 06:00 10/15/24 06:09 Levothyroxine 75 Mcg Tablet PO 75 mcg DAILY@0600 EDILIA Administration Magnesium Citrate 300 ml 10/13/24 21:02 Magnesium Citrate 300 Ml PO DAILY PRN Constipation Methylprednisolone 4 mg 10/14/24 12:00 10/15/24 12:00 Methylprednisolone Dosepak 4 Mg Box PO 10/19/24 04:59 4 mg 0800,1200,1700 EDILIA Administration Taper Metoprolol Succinate 50 mg 10/14/24 10:00 10/15/24 09:31 Metoprolol(Xl)Succ 50 Mg Tablet PO 50 mg DAILY EDILIA Administration Protocol Montelukast Sodium 10 mg 10/13/24 21:00 10/14/24 21:42 Montelukast 10 Mg Tablet PO 10 mg QPM EDILIA Administration Nitroglycerin 0.4 mg 10/13/24 20:41 Nitroglycerin (Inpatient Use) 0.4 Mg Tab.Subl SL Q5M PRN chest pain Pantoprazole Sodium 40 mg 10/14/24 10:00 10/15/24 09:30 Pantoprazole Sodium 40 Mg Tablet PO 40 mg DAILY EDILIA Administration Potassium Chloride 20 meq 10/14/24 08:00 10/15/24 09:28 Potassium Chloride Oral Tablet 20 Meq PO 20 meq DAILYCM EDILIA Administration Prednisone 5 mg 10/14/24 08:00 10/14/24 10:07 Prednisone 5 Mg Tablet PO 5 mg DAILYCM EDILIA Administration Rivaroxaban 20 mg 10/14/24 17:00 10/14/24 18:06 Rivaroxaban 20 Mg Tablet PO 20 mg DINNER EDILIA Administration Senna/Docusate Sodium 1 tablet 10/13/24 22:00 10/15/24 09:31 Senna/Docusate Sodium 1 Tablet PO 1 tablet BID EDILIA Administration Sertraline HCl 100 mg 10/14/24 10:00 10/15/24 09:31 Sertraline 100 Mg Tablet PO 100 mg DAILY EDILIA Administration Sodium Chloride 10 - 40 ml 10/14/24 10:28 10/15/24 06:15 0.9% Saline Lock 10 Ml Syringe IV 10 ml UD PRN Administration SALINE FLUSH Spironolactone 12.5 mg 10/14/24 08:00 10/15/24 09:27 Spironolactone 25 Mg Tablet PO 12.5 mg DAILYCM EDILIA Administration Protocol Tamsulosin HCl 0.4 mg 10/14/24 10:00 10/15/24 09:29 Tamsulosin Hcl 0.4 Mg Capsule PO 0.4 mg BID EDILIA Administration Tuberculin PPD 0.1 ml 10/21/24 10:00 Tuberculin,Purif.Prot.Deriv. 50 Tu/Ml Vial ID 10/21/24 10:01 X1 ONE Problem List Depression (Acute) Asthma (Acute) Chronic heart failure with preserved ejection fraction (HFpEF) (Acute) Atrial fibrillation (Acute) DVT (deep venous thrombosis) (Acute) Heparin induced thrombocytopenia (HIT) (Acute) Postoperative ileus (Acute) Acute respiratory failure with hypoxia (Acute) 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) (Acute) Ruptured abdominal aortic aneurysm (Acute) Hypothyroidism (Acute) BPH (benign prostatic hyperplasia) (Chronic) Coronary artery disease (Chronic) Debility (Chronic) COPD (chronic obstructive pulmonary disease) (Chronic) Hypertension (Chronic) Vital Signs Temp Pulse Resp BP Pulse Ox O2 Del Method O2 Flow Rate 96.4 F L 80 17 113/70 95 Nasal Cannula 3 10/15/24 09:26 10/15/24 09:31 10/15/24 09:26 10/15/24 09:31 10/15/24 09:26 10/15/24 09:26 10/15/24 09:26 FiO2 32 10/15/24 04:00 Oxygen Flow Rate (L/min) 3 Oxygen Delivery Method Nasal Cannula Weight: 80.853 kg Body Mass Index (BMI) 23.5 Sodium 138 mmol/L (133-145) 10/14/24 05:15 Potassium 3.7 mmol/L (3.3-5.1) 10/14/24 05:15 Chloride 103 mmol/L (98-108) 10/14/24 05:15 Carbon Dioxide 24.5 mmol/L (21.0-32.0) 10/14/24 05:15 Anion Gap 11 (5-15) 10/14/24 05:15 BUN 20 mg/dL (4-19) H 10/14/24 05:15 Creatinine 0.89 mg/dL (0.70-1.20) 10/14/24 05:15 Est GFR (MDRD) Non-Af 90 (>60) 10/14/24 05:15 BUN/Creatinine Ratio 23.1 RATIO (10-20) H 10/14/24 05:15 Glucose 92 mg/dL (70-99) 10/14/24 05:15 Assessment/Plan: 1. Pain: acetaminophen 1000mg PO Q6H PRN pain 1-10. No PRN doses have been given. Last LFTs:06/24/24. Check LFTs if resident develops symptoms of hepatoxicity. Consider monitoring LFTs if patient using > 3 gm/day of acetaminophen for prolonged period. Do not exceed 4000 mg in 24 hours. Please continue to monitor for increased pain and PRN usage. 2. Bowel: senna/docusate 1T PO BID, magnesium citrate 300mL PO daily PRN constipation and bisacodyl 10mg RC daily PRN constipation. No PRN doses have b een given. Last document bowel movement: 10/13/24. Monitor for usage of prn medications, abdominal pain, frequency of bowel movements, diarrhea. Recommend holding bowel regimen if resident develops diarrhea. 3. Hypertension/CAD/chronic HFpEF/atrial fibrillation/RLE DVT: metoprolol succinate 50mg PO daily, clopidogrel 75mg PO daily, amlodipine 5mg PO daily, spironolactone 12.5mg PO daily, rivaroxaban 20mg PO dinner, furosemide 10mg PO every other day and nitroglycerin 0.4mg SL Q5M PRN chest pain. No PRN doses have been given. Please continue to monitor BP (range 113/70-123/79), HR (range 78/89), S/S of bleeding, hemoglobin (last 10.2g/dL), swelling, potassium (last 3.7mmol/L), renal function, chest pain and PRN usage. Unclear if resident should be on typical Xarelto DVT dosing of 15mg BID x 3 weeks followed by 20mg daily. Per H&P resident had bivalrudin in the hospital. 4. Hyperlipidemia: atorvastatin 80mg PO QHS. Please continue to monitor for lipid panel (last 06/24/24), LFTs (last 06/24/24) and muscle pain. 5. Hypothyroidism: levothyroxine 75mcg PO daily. Please continue to monitor TSH (last 06/24/24) and S/S of hypo/hyperthyroidism. 6. Asthma/COPD: budesonide 0.5mg nebulized solution BID (starting after Medrol dose pack complete), Duoneb 3mL nebulized solution Q6H.RT, albuterol MDI 2 puffs Q4H PRN wheezing (2 doses given), Medrol dose pack, prednisone 5mg PO daily (on hold, on Medrol dose pack) and montelukast 10mg PO daily. Please continue to monitor for PRN usage, wheezing, HR, S/S of infection, WBC (last 7.9K/mm3), glucose (last 92mg/dL), increased hunger, agitation. 7. GERD: pantoprazole 40mg PO daily. Monitor for diarrhea (consider possibility of C. diff if develops). Consider serum magnesium level and B12 level with long- term use if indicated. If clinically appropriate, consider dose reduction/weaning of medication due to skilled nursing risks of C. diff and fractures ([place]). 8. Hypokalemia: potassium chloride 20mEq PO daily. Please continue to monitor potassium (last 3.7mmol/L). 9. BPH/urinary retention: tamsulosin 0.4mg PO BID and finasteride 5mg PO daily. Please continue to monitor BP, S/S of BPH/urinary retention, dizziness, GI upset. Assessment/Plan for indications treated with psychotropic medications: 1. Major depression: sertraline 100mg PO daily. Please see physician note regarding GDR. Monitor for diarrhea, nausea, headache, anxiety or drowsiness, suicidal thoughts or behaviors (Boxed Warning), symptoms of bleeding, symptoms of serotonin syndrome (including agitation, confusion, hyperreflexia, rigidity/myoclonus, tremor, tachycardia, tachypnea), sodium levels (last Na =138mmol/L). Monitor for efficacy including resident symptoms, behaviors and indications of distress. Monitor for tolerability including mental status, cognition, excessive sleepiness, withdrawal or decreased participation in activities and decline in physical functioning. Maximize use of nonpharmacologic/behavioral interventions to facilitate dose reduction or discontinuation as appropriate. Please evaluate the appropriateness of GDR unless contraindicated. If appropriate, GDR should be attempted in 2 separate quarters within the first year of use or admission to TCU. If GDR attempted, monitor resident symptoms/behaviors. Medical chart and medication regimen reviewed. The following medication irregularities or issues were identified: None Date Date of Note: 10/15/24 Documented by User: Dr. Norris Olmedo MD 10/15/24 13:06 TCU RX Drug Regimen Review Provider Comments Provider responsibility Provider Comments to Recommendations by Pharmacy Agree
--- NOTE | 2024-10-15 12:03 | NURSING ---
pt up with aides to shower, got very SOB with extertion & care. pt assisted back to room. rescue inhaler given to patient, o2 increased to 6l , pt SPO2 reading 82, RT in room to give breathing treatment, applied c-pap and will come back in about an Hr. to do breathing treatment. O2 increased to 96
--- NOTE | 2024-10-15 15:29 | NURSING ---
pt continues to feel SOB after breathing treatment, pt pulse ox at 3L was 76 increased to 5L pt up to 96% oxygen saturation. belly distended, pt has no complaints. daughter at bedside states pt seems to be struggling to breath, aware. new orders placed. vital signs at this time 92/59 temp 98.2 respirations 20
--- NOTE | 2024-10-15 15:30 | RAD_ITS ---
PROCEDURE: CHEST PA AND LATERAL 10/15/2024 REASON FOR EXAM: SHORTNESS OF BREATH TECHNIQUE: CHEST PA AND LATERAL COMPARISON: Chest x-ray 02/11/2022 FINDINGS: Hardware: Partially visualized endovascular stent graft. Surgical clips are visualized within Heart: Mild stable cardiomegaly. Coronary stents are visualized Mediastinum: There are atherosclerotic calcifications of the thoracic aorta. Lungs: Patchy opacity within right lung base. Calcified granulomas scattered throughout the lungs. Bones: Degenerative changes are identified within the thoracic spine. RAD/Chest PA and Lateral IMPRESSION: Patchy opacity within right lung base concerning for underlying infectious/infl ammatory process. Bilateral pulmonary vascular congestion. Reading Location: [id number]
--- NOTE | 2024-10-15 15:30 | RAD_ITS ---
PROCEDURE: ABDOMEN SINGLE VIEW 10/15/2024 REASON FOR EXAM: ABDOMINAL DISTENTION TECHNIQUE: ABDOMEN SINGLE VIEW FINDINGS: Bowel gas: Mild gaseous distention of small and large bowel loops. Bowel gas pattern appears more suggestive of an abdominal ileus than obstruction. Calcifications: No suspicious calcifications. Bones: There are degenerative changes of the spine. Other: Aortoiliac vascular stent present. RAD/Abdomen Single View IMPRESSION: BOWEL GAS PATTERN MOST SUGGESTIVE OF ILEUS. Reading Location: [facility]
[2024-10-15] MEDS: 0.9% Normal Saline (1000mL) 1,000 ML 999 ML IV (15:54)
[2024-10-15] MEDS: Piperacil/Tazobactam 3.375 GM in 0.9% Normal Saline (50mL MB+) 50 ML IV ×2 (17:12→22:46)
[2024-10-15] MEDS: 0.9% Normal Saline 250 ML IV.SOLN. IV (17:23)
[2024-10-15 17:37] LABS: Hematocrit 32.3 % (40-54); Hemoglobin 10.3 g/dL (13.0-16.5); Immature Granulocytes Count 0.180 X10^3/uL (0.0-0.0); Mean Corp Hgb Conc 31.9 g/dL (32-36); Mean Corpuscular Volume 92.3 fL (80-94); Mean Platelet Vol. 9.0 fl (6.2-12.0); NRBC Flagged by Analyzer 0 % (0-5); POSITIVE DIFFERENTIAL YES; Platelet Count 343 K/mm3 (150-450); RBC Distribution Width CV 16.9 % (11.6-14.6); RBC Distribution Width SD 56.9 fl (35.1-43.9); Red Blood Count 3.50 M/mm3 (4.6-6.2); White Blood Count 19.4 K/mm3 (4.4-11.0)
[2024-10-15 17:58] LABS: Pro- Brain NATRIURETIC PEPTIDE 833 pg/mL (<=1800)
[2024-10-15 18:55] LABS: AST(SGOT) 61 U/L (<=37); Alanine Aminotransfer ALT/SGPT 40 U/L (<=46); Albumin, Serum 3.3 g/dL (3.4-4.8); Alkaline Phosphatase 88 U/L (40-129); Anion Gap 14 (5-15); BUN 24 mg/dL (4-19); BUN/Creat Ratio 21.7 RATIO (10-20); Calcium,Total 8.6 mg/dL (7.6-11.0); Carbon Dioxide 21.0 mmol/L (21.0-32.0); Chloride 103 mmol/L (98-108); Estimated Creatinine Clearance 64.98 ml/min (50-250); Globulin 2.9 g/dL (2.2-4.2); Glucose 108 mg/dL (70-99); Potassium 4.5 mmol/L (3.3-5.1)
[2024-10-15 19:08] LABS: Magnesium 1.9 mg/dL (1.5-2.2)
[2024-10-15] MEDS: 0.9% Normal Saline (1000mL) 1,000 ML 60 ML IV (20:30)
[2024-10-16] VITALS (7 sets, daily range): BP systolic 113–118; BP diastolic 66–70; PULSE 72–86; RESP 18–20; TEMP 36.9–37.1; O2SAT 91–96
[2024-10-16] MEDS: Piperacil/Tazobactam 3.375 GM in 0.9% Normal Saline (50mL MB+) 50 ML IV ×3 (05:41→21:31)
--- NOTE | 2024-10-16 06:37 | CPS ---
Pt declined aerosol & vest, says he is fine this morning.
[2024-10-16 07:37] LABS: Hematocrit 29.3 % (40-54); Hemoglobin 9.3 g/dL (13.0-16.5); Immature Granulocytes Count 0.110 X10^3/uL (0.0-0.0); Mean Corp Hgb Conc 31.7 g/dL (32-36); Mean Corpuscular Volume 91.8 fL (80-94); Mean Platelet Vol. 8.9 fl (6.2-12.0); NRBC Flagged by Analyzer 0 % (0-5); Platelet Count 326 K/mm3 (150-450); RBC Distribution Width CV 16.6 % (11.6-14.6); RBC Distribution Width SD 55.0 fl (35.1-43.9); Red Blood Count 3.19 M/mm3 (4.6-6.2); White Blood Count 15.3 K/mm3 (4.4-11.0)
[2024-10-16 08:03] LABS: Anion Gap 10 (5-15); BUN 24 mg/dL (4-19); BUN/Creat Ratio 23.4 RATIO (10-20); Calcium,Total 8.4 mg/dL (7.6-11.0); Carbon Dioxide 21.5 mmol/L (21.0-32.0); Chloride 105 mmol/L (98-108); Estimated Creatinine Clearance 70.03 ml/min (50-250); Glucose 104 mg/dL (70-99); Potassium 4.1 mmol/L (3.3-5.1)
[2024-10-16] MEDS: MethylPREDNISolone DosePak 4 MG BOX PO ×4 (08:03→20:17)
[2024-10-16] MEDS: Metoprolol(XL)Succ 50 MG Tablet PO (08:05)
[2024-10-16] MEDS: Potassium Chloride Oral Tablet 20 MEQ PO (08:06)
[2024-10-16] MEDS: Na Biphos/Potassium Phosphate PACKET 1 PACKET PO ×2 (12:23→20:19)
[2024-10-16] MEDS: 0.9% Normal Saline (1000mL) 1,000 ML 60 ML IV (12:35)
[2024-10-16] MEDS: Albuterol IH (6.7 GM) 1 PUFF INHALER 2 PUFF INHALATION (13:02)
[2024-10-16] MEDS: Budesonide Respules 0.5 MG/2 ML AMPUL.NEB. INHALATION ×2 (13:15→18:40)
--- NOTE | 2024-10-16 13:44 | NURSING ---
Addendum entered by Radha Jarquin 10/16/24 16:23: Pt had medium, soft bowel movement this afternoon. Received lactulose enema, tolerated well, medium liquid/stool output result. Pt continues with firm, rounded abdomen, reports stomach feels a little better. Original Note: Pt's dtr at bedside, states pt's abdomen appears more distended than yesterday. pt has not had a bowel movement since receiving enema yesterday. Respiratory therapy restarted pt's budesonide nebulized treatments this morning, dtr is stating that pt gets very wheezy if they are not given. Pt continues with incontinent urine episodes, bladder scan 142mL. Continuing void trials. Pt denies pain/discomfort to abdomen and bladder. Called and updated Dr. Olmedo of above information, TORB for lactulose enema, see orders.
[2024-10-16] MEDS: 0.9% Saline Lock 10 ML Syringe IV (17:25)
[2024-10-16] MEDS: Senna/Docusate Sodium 1 Tablet PO (20:16)
--- NOTE | 2024-10-16 22:45 | CPS ---
Pt is refusing to wear his BIPAP for tonight.
[2024-10-17] VITALS (7 sets, daily range): BP systolic 125; BP diastolic 71; PULSE 74–80; RESP 18–24; TEMP 36.6; O2SAT 93–98
[2024-10-17] MEDS: Piperacil/Tazobactam 3.375 GM in 0.9% Normal Saline (50mL MB+) 50 ML IV ×2 (04:55→13:21)
[2024-10-17] MEDS: 0.9% Normal Saline (1000mL) 1,000 ML 60 ML IV (04:55)
[2024-10-17] MEDS: Budesonide Respules 0.5 MG/2 ML AMPUL.NEB. INHALATION ×2 (07:17→18:55)
--- NOTE | 2024-10-17 07:27 | CPS ---
Pt declined doing his Vest Therapy.
[2024-10-17] MEDS: MethylPREDNISolone DosePak 4 MG BOX PO ×3 (08:53→23:56)
[2024-10-17] MEDS: Potassium Chloride Oral Tablet 20 MEQ PO (08:54)
[2024-10-17] MEDS: Senna/Docusate Sodium 1 Tablet PO (09:01)
[2024-10-17] MEDS: Na Biphos/Potassium Phosphate PACKET 1 PACKET PO (09:02)
[2024-10-17] MEDS: Metoprolol(XL)Succ 50 MG Tablet PO (09:03)
--- NOTE | 2024-10-17 11:25 | RAD_ITS ---
PROCEDURE: ABDOMEN SINGLE VIEW 10/17/2024 REASON FOR EXAM: ILEUS TECHNIQUE: ABDOMEN SINGLE VIEW COMPARISON: 10/14/2024 CT. 10/15/2024 radiograph. FINDINGS: Dilated loops of bowel throughout the abdomen which may represent ileus or obstruction. No subdiaphragmatic free air. Aorto bi-iliac stent grafts. RAD/Abdomen Single View IMPRESSION: Diffusely dilated loops of small bowel which may represent ileus versus obstruc tion. Reading Location: [id number]
[2024-10-17] MEDS: Senna/Docusate Sodium 1 Tablet 2 TABLET PO ×2 (11:59→23:57)
[2024-10-17] MEDS: Polyethylene Glycol 3350 17 GM PACKET PO (11:59)
--- NOTE | 2024-10-17 18:30 | NURSING ---
This nurse updated Dr. Olmedo on pt having a large liquid stool. Per Dr. Olmedo wanted a update on patients status. Updated Dr. Olmedo that pt is having abdomen distended, drowsy and per pt he feels like crap. Per Dr. Olmedo send pt to [facility] for Ileus Daughter in room and updated.
[2024-10-18] VITALS (7 sets, daily range): BP systolic 123–156; BP diastolic 76–91; PULSE 72–85; RESP 16–24; TEMP 36.7; O2SAT 94–98; BMI 23.6
[2024-10-18] MEDS: 0.9% Normal Saline (1000mL) 1,000 ML 60 ML IV ×2 (00:05→10:28)
--- NOTE | 2024-10-18 00:18 | NURSING ---
Pt returned from ED at 2340 with no paper work. Nurse from ED called at 2320 to report patient has an UTI, now on Vancomycin. Vanc will be running when patient returns to floor. Patient states he is tired, assessment done on patient. Partial medications were given due to patient being exhausted. Patient denies any other needs ATT. Nurse will administer Zosyn when Vanc is complete
--- NOTE | 2024-10-18 01:00 | CPS ---
Pt refused to wear BIPAP for tonight.
--- NOTE | 2024-10-18 03:49 | NURSING ---
metal fence erector found pt had pulled out his IV and opened a skin tear in his left wrist. Other nurse dressed skin tear wound with DSD. This nurse placed new IV in ANDER. Flushed with 10cc. IV intact, patent and flushed well. Saline locked ATT. Pt changed, repositioned, and resting with eyes closed. Call light and personal belongings within reach.
[2024-10-18] MEDS: Piperacil/Tazobactam 3.375 GM in 0.9% Normal Saline (50mL MB+) 50 ML IV ×3 (05:30→21:43)
--- NOTE | 2024-10-18 08:49 | NURSING ---
Offered covid vaccine, VIS provided. Resident declines.
[2024-10-18] MEDS: MethylPREDNISolone DosePak 4 MG BOX PO ×2 (10:04→21:12)
[2024-10-18] MEDS: Potassium Chloride Oral Tablet 20 MEQ PO (10:04)
[2024-10-18] MEDS: Na Biphos/Potassium Phosphate PACKET 1 PACKET PO ×2 (10:06→21:10)
[2024-10-18] MEDS: Senna/Docusate Sodium 1 Tablet 2 TABLET PO ×2 (10:07→21:11)
[2024-10-18] MEDS: Metoprolol(XL)Succ 50 MG Tablet PO (10:08)
[2024-10-18] MEDS: Albuterol IH (6.7 GM) 1 PUFF INHALER 2 PUFF INHALATION (10:32)
--- NOTE | 2024-10-18 12:46 | NURSING ---
Play Leader Note; Activity Asset: Complete Oli prefers to be called Stiven. Stiven is independent in his choice of daily activities. At this time he prefers family and in room only activities due to his health and his family will bring him items when they visits. He has his smartphone, tv and will read when not resting. Staff will remind him of weekly activities and respect his right to say no.
--- NOTE | 2024-10-18 17:45 | NURSING ---
CALLED AND UPDATED DAUGHTER VASILIY ON NEW ORDERS.
[2024-10-18] MEDS: Budesonide Respules 0.5 MG/2 ML AMPUL.NEB. INHALATION (19:50)
[2024-10-19] VITALS (8 sets, daily range): BP systolic 107; BP diastolic 68; PULSE 67–86; RESP 14–20; TEMP 36.5; O2SAT 94–99
[2024-10-19] MEDS: Piperacil/Tazobactam 3.375 GM in 0.9% Normal Saline (50mL MB+) 50 ML IV ×3 (05:06→21:05)
[2024-10-19] MEDS: Budesonide Respules 0.5 MG/2 ML AMPUL.NEB. INHALATION ×2 (06:50→19:15)
[2024-10-19] MEDS: Potassium Chloride Oral Tablet 20 MEQ PO (10:12)
[2024-10-19] MEDS: Na Biphos/Potassium Phosphate PACKET 1 PACKET PO (10:14)
[2024-10-19] MEDS: Senna/Docusate Sodium 1 Tablet 2 TABLET PO (10:15)
[2024-10-19] MEDS: Metoprolol(XL)Succ 50 MG Tablet PO (10:16)
[2024-10-19] MEDS: 0.9% Saline Lock 10 ML Syringe IV (14:28)
--- NOTE | 2024-10-19 14:29 | NURSING ---
NURSE CALLED TO PT ROOM BY PT DAUGHTER. DAUGHTER STATED HER DAD ELBOW WAS BLEEDING AND THINKS HE HIT IT ON SOME THING. PT ELBOW BLEEDING WITH SMALL SKIN TEAR. ASKED PT WHAT HAPPENED PT STATED HE WASN'T SURE. CLEANED AREA AND APPLIED STERI STRIPS AND DRY DRESSING. RN AWARE.
--- NOTE | 2024-10-19 14:51 | CHAPLAIN ---
Type of Pastoral Visit ___ Initial Visit _x__ Follow-up Visit ___ On-call Visit ___ General Patient Visit ___ Spiritual Assessment ___ Family Conference ___ Bereavement ___ Rapid Response ___ Code Blue ___ Other (describe below) Pastoral Care Referral From _x__ Patient ___ Family ___ Nurse ___ Physician ___ [employer] Manager ___ Pharmacy Clerk ___ Other (describe below) Sacrament/Intervention _x__ Active listening ___ Anointing ___ Yarsani ___ Bereavement ___ Communion ___ Opal exploration ___ ___ Life review _x__ Prayer ___ Reconciliation ___ Sacrament of Sick _x__ Supportive presence ___ Wedding ___ Other (describe below) Pastoral Comments patient is more alert and able to converse since first seen last week; pt is welcoming even though he was having a breathing treatment; pt is also supported by a daughter at this time; pt states that his concerns are about his family and that God would watch over them and keep them; pt asks for prayer;
[2024-10-20] VITALS (8 sets, daily range): BP systolic 103; BP diastolic 70; PULSE 67–86; RESP 16–18; TEMP 36.7; O2SAT 96–98
[2024-10-20] MEDS: Piperacil/Tazobactam 3.375 GM in 0.9% Normal Saline (50mL MB+) 50 ML IV ×2 (05:19→17:42)
[2024-10-20] MEDS: Potassium Chloride Oral Tablet 20 MEQ PO (08:38)
[2024-10-20] MEDS: Metoprolol(XL)Succ 50 MG Tablet PO (08:40)
--- NOTE | 2024-10-20 13:40 | CASEMGMT ---
Social Work IDT met with patient and two dtrs at bedside for care plan meeting. Discussed patient's progress in PT/OT/ST/SN/RDN. Educated to Medicare benefit. Provided pt/family with written communication of insurance process and copay coverage during stay. Pt has been medically compromised and limiting therapy progress. Pt is on new O2 and on IV ATB for asp PNA. Pt continues to meet skilled criteria for ongoing care and educated family to that, per their concerns. SW will continue to assist with DC planning and support. Family very appreciative of care. Margaret Marcial BANKING PIN ADJUSTER ALARM FIELD TECHNICIAN
[2024-10-20] MEDS: Budesonide Respules 0.5 MG/2 ML AMPUL.NEB. INHALATION (19:42)
--- NOTE | 2024-10-20 20:09 | NURSING ---
1400 dose Zosyn administered at 1742, spoke with Allyson in pharmacy. Per Allyson hold 2200 dose and administer next dose of Zosyn at 0600.
[2024-10-20] MEDS: 0.9% Saline Lock 10 ML Syringe IV (23:53)
[2024-10-21] VITALS (8 sets, daily range): BP systolic 107; BP diastolic 68; PULSE 70–80; RESP 14–20; TEMP 36.9; O2SAT 93–99
[2024-10-21] MEDS: 0.9% Saline Lock 10 ML Syringe IV ×2 (05:03→13:23)
[2024-10-21] MEDS: 0.9% Normal Saline 250 ML IV.SOLN. IV (05:03)
[2024-10-21] MEDS: Piperacil/Tazobactam 3.375 GM in 0.9% Normal Saline (50mL MB+) 50 ML IV ×3 (05:14→23:03)
[2024-10-21] MEDS: Budesonide Respules 0.5 MG/2 ML AMPUL.NEB. INHALATION ×2 (06:36→18:55)
[2024-10-21 07:39] LABS: Hematocrit 32.5 % (40-54); Hemoglobin 10.3 g/dL (13.0-16.5); Immature Granulocytes Count 0.210 X10^3/uL (0.0-0.0); Mean Corp Hgb Conc 31.7 g/dL (32-36); Mean Corpuscular Volume 92.1 fL (80-94); Mean Platelet Vol. 8.6 fl (6.2-12.0); NRBC Flagged by Analyzer 0 % (0-5); Platelet Count 244 K/mm3 (150-450); RBC Distribution Width CV 17.1 % (11.6-14.6); RBC Distribution Width SD 56.7 fl (35.1-43.9); Red Blood Count 3.53 M/mm3 (4.6-6.2); White Blood Count 5.3 K/mm3 (4.4-11.0)
[2024-10-21] MEDS: Metoprolol(XL)Succ 50 MG Tablet PO (08:00)
[2024-10-21] MEDS: Potassium Chloride Oral Tablet 20 MEQ PO (08:01)
[2024-10-21 08:14] LABS: Anion Gap 11 (5-15); BUN 12 mg/dL (4-19); BUN/Creat Ratio 13.2 RATIO (10-20); Calcium,Total 7.9 mg/dL (7.6-11.0); Carbon Dioxide 22.1 mmol/L (21.0-32.0); Chloride 106 mmol/L (98-108); Estimated Creatinine Clearance 78.40 ml/min (50-250); Glucose 90 mg/dL (70-99); Potassium 3.4 mmol/L (3.3-5.1)
[2024-10-21] MEDS: Tuberculin,Purif.prot.deriv. 50 TU/ML Vial 0.1 ML ID (09:51)
[2024-10-21] MEDS: Polyethylene Glycol 3350 17 GM PACKET PO (22:46)
[2024-10-21] MEDS: Senna/Docusate Sodium 1 Tablet 2 TABLET PO (22:46)
[2024-10-22] VITALS (8 sets, daily range): BP systolic 127; BP diastolic 83; PULSE 63–79; RESP 16–20; TEMP 36.8; O2SAT 93–99
[2024-10-22] MEDS: Piperacil/Tazobactam 3.375 GM in 0.9% Normal Saline (50mL MB+) 50 ML IV ×2 (06:12→13:42)
[2024-10-22] MEDS: Budesonide Respules 0.5 MG/2 ML AMPUL.NEB. INHALATION (07:50)
--- NOTE | 2024-10-22 09:44 | NURSING ---
WENT INTO PT ROOM AND FOUND PT IV TUBING DISCONNECTED FROM PUMP AND A LARGE AMOUNT OF FLUID ON FLOOR. ASKED PT IF HE KNEW WHAT HAPPENED PT STATED NO. NOTIFIED YOLANDA AND RN. CALLED BOY IN PHARMACY TO SEE IF WE NEEDED TO GIVE ANOTHER DOSE OF ZOSYN BUT DIDNT KNOW HOW MUCH HE GOT FROM THIS LAST ONE. BOY STATED NO JUST GIVE HIS LAST DOSE TODAY. RN AWARE
[2024-10-22] MEDS: 0.9% Saline Lock 10 ML Syringe IV (09:53)
[2024-10-22] MEDS: Potassium Chloride Oral Tablet 20 MEQ PO (10:00)
[2024-10-22] MEDS: Senna/Docusate Sodium 1 Tablet 2 TABLET PO (10:02)
[2024-10-22] MEDS: Metoprolol(XL)Succ 50 MG Tablet PO (10:02)
--- NOTE | 2024-10-22 11:13 | MDS.RN ---
Information for the MDS was obtained from review of the clinical record, interview of resident, staff, and direct observation of resident?s care.
[2024-10-23] VITALS (8 sets, daily range): BP systolic 132; BP diastolic 73; PULSE 64–92; RESP 14–22; TEMP 36.6; O2SAT 93–97
--- NOTE | 2024-10-23 06:41 | CPS ---
Pt declined vest therapy and aerosol, wants to stay on BIPAP.
[2024-10-23] MEDS: Potassium Chloride Oral Tablet 20 MEQ PO (08:34)
[2024-10-23] MEDS: Metoprolol(XL)Succ 50 MG Tablet PO (08:36)
--- NOTE | 2024-10-23 13:22 | CPS ---
Pt decline vest therapy.
--- NOTE | 2024-10-23 19:34 | CPS ---
pt refusing his own vest at this time, pt stated not feeling well today
[2024-10-23] MEDS: Polyethylene Glycol 3350 17 GM PACKET PO (22:52)
[2024-10-23] MEDS: Senna/Docusate Sodium 1 Tablet 2 TABLET PO (22:53)
[2024-10-24] VITALS (8 sets, daily range): BP systolic 125; BP diastolic 80; PULSE 63–72; RESP 16; TEMP 36.8; O2SAT 93–97
[2024-10-24] MEDS: Budesonide Respules 0.5 MG/2 ML AMPUL.NEB. INHALATION ×2 (06:10→20:54)
[2024-10-24] MEDS: Potassium Chloride Oral Tablet 20 MEQ PO (09:09)
[2024-10-24] MEDS: Metoprolol(XL)Succ 50 MG Tablet PO (09:10)
[2024-10-24] MEDS: 0.9% Saline Lock 10 ML Syringe IV (18:17)
[2024-10-25] VITALS (7 sets, daily range): BP systolic 133; BP diastolic 82; PULSE 63–82; RESP 16–21; TEMP 36.9; O2SAT 95–98
[2024-10-25] MEDS: Potassium Chloride Oral Tablet 20 MEQ PO (08:43)
[2024-10-25] MEDS: Metoprolol(XL)Succ 50 MG Tablet PO (08:45)
[2024-10-25] MEDS: Senna/Docusate Sodium 1 Tablet 2 TABLET PO (08:45)
[2024-10-25] MEDS: Budesonide Respules 0.5 MG/2 ML AMPUL.NEB. INHALATION (18:40)
[2024-10-26] VITALS (9 sets, daily range): BP systolic 105; BP diastolic 65; PULSE 68–81; RESP 15–22; TEMP 36.8–37.3; O2SAT 94–97; BMI 22.2
[2024-10-26] MEDS: Budesonide Respules 0.5 MG/2 ML AMPUL.NEB. INHALATION ×2 (07:30→19:44)
[2024-10-26] MEDS: Potassium Chloride Oral Tablet 20 MEQ PO (08:39)
[2024-10-26] MEDS: Metoprolol(XL)Succ 50 MG Tablet PO (08:42)
--- NOTE | 2024-10-27 03:30 | NURSING ---
pt found out of bed standing over trash can urinating into medication cup; urinal was located in trash can. nasal cannula was placed back on patients face and pt was assisted back to bed. pt provided with a new urinal within reach. call light verified to be within reach; education provided to pt regarding use of call light. pt found to be A & O x 1 with baseline being 1 - 2, VSS. PA on and functioning.
[2024-10-27 06:59] VITALS: PULSE 71; RESP 18; O2SAT 97
--- NOTE | 2024-10-27 07:28 | RAD_ITS ---
PROCEDURE: CHEST PA AND LATERAL 10/27/2024 REASON FOR EXAM: COUGH. TECHNIQUE: CHEST PA AND LATERAL COMPARISON: Prior study dated October 15, 2024. FINDINGS: Hardware: None Heart: The heart is nonenlarged. Mediastinum: The mediastinal contour is stable. Lungs: Hyperinflation. There is evidence of patchy density in the right lower lobe with findings suggestive of bronchiectasis and possible chronic scarring. Follow-up recommended. Bones: Degenerative changes are identified within the thoracic spine. RAD/Chest PA and Lateral IMPRESSION: Hyperinflation. Patchy infiltrate in the right lower lobe with evidence of scarring and bronchi ectasis. Reading Location: [facility]
[2024-10-27 07:56] VITALS: BP 127/75; PULSE 77; RESP 17; TEMP 36.7; O2SAT 96
[2024-10-27] MEDS: Potassium Chloride Oral Tablet 20 MEQ PO (08:00)
[2024-10-27 08:02] VITALS: BP 127/75; PULSE 77
[2024-10-27] MEDS: Metoprolol(XL)Succ 50 MG Tablet PO (08:02)
--- NOTE | 2024-10-27 08:26 | CASEMGMT ---
Social Work SW received a VM from dtr, Ashtyn, inquiring about POC meeting time. SW returned phone call to notify the POC is held one time after the patient admits, as explained in the POC meeting last week. However, offered to assist with answering questions. Dtr inquired about updates for pt. Dtr noted she is back to work and only sees pt in the evening. SW explained dtr can call for updates or with questions at anytime. Acknowledged difficulty with change in work schedule. Dtr works for the [employer] system. SW provided updates from PT/OT/ST shared at [facility] yesterday. Pt remains winded after steps and physical activity; 3L of O2 at rest, 5-6L with exertion. ModA for ADLs, CGA for transfers. INPATIENT PHARMACIST explained pt cognitively presents at a higher function than what his abilities truly are, and has difficulty following directions. Dtr agreed she has noticed pt covers things up well. SW confirmed. Dtr stated his cognition is impairment from his previous stroke. SW confirmed, and it is difficult to gauge how much will continue to improve. SW explained although IDT is not ready to set a DC date, currently, the recommendation is 23/09 care for cognitive and physical assistance. Dtr stated although she is back to work, her is at home. SW encouraged dtr to begin having those discussions with pt and family on the DC plan, if pt continues to need assistance at DC. Dtr agreed and appreciative of time and update from this worker. SW will continue to follow. Margaret Marcial [employer] BU[employer]ER [employer] LOAN PROCESSOR
[2024-10-27 17:15] VITALS: O2SAT 99
[2024-10-27 18:33] VITALS: PULSE 83; RESP 18
[2024-10-27] MEDS: Budesonide Respules 0.5 MG/2 ML AMPUL.NEB. INHALATION (18:33)
[2024-10-27] MEDS: Senna/Docusate Sodium 1 Tablet 2 TABLET PO (22:31)
--- NOTE | 2024-10-27 23:00 | CPS ---
Pt refused to wear BiPAP tonight.
[2024-10-28] VITALS (7 sets, daily range): BP systolic 128; BP diastolic 80; PULSE 64–79; RESP 18; TEMP 36.9; O2SAT 94–98
[2024-10-28 05:47] LABS: Hematocrit 35.9 % (40-54); Hemoglobin 11.2 g/dL (13.0-16.5); Immature Granulocytes Count 0.070 X10^3/uL (0.0-0.0); Mean Corp Hgb Conc 31.2 g/dL (32-36); Mean Corpuscular Volume 93.7 fL (80-94); Mean Platelet Vol. 8.9 fl (6.2-12.0); NRBC Flagged by Analyzer 0 % (0-5); Platelet Count 217 K/mm3 (150-450); RBC Distribution Width CV 18.1 % (11.6-14.6); RBC Distribution Width SD 62.2 fl (35.1-43.9); Red Blood Count 3.83 M/mm3 (4.6-6.2); White Blood Count 9.1 K/mm3 (4.4-11.0)
[2024-10-28 06:23] LABS: Anion Gap 8 (5-15); BUN 17 mg/dL (4-19); BUN/Creat Ratio 15.4 RATIO (10-20); Calcium,Total 8.6 mg/dL (7.6-11.0); Carbon Dioxide 26.7 mmol/L (21.0-32.0); Chloride 106 mmol/L (98-108); Estimated Creatinine Clearance 62.47 ml/min (50-250); Glucose 87 mg/dL (70-99); Potassium 3.9 mmol/L (3.3-5.1)
[2024-10-28] MEDS: Budesonide Respules 0.5 MG/2 ML AMPUL.NEB. INHALATION ×2 (06:50→19:25)
[2024-10-28] MEDS: Potassium Chloride Oral Tablet 20 MEQ PO (09:21)
[2024-10-28] MEDS: Metoprolol(XL)Succ 50 MG Tablet PO (09:23)
--- NOTE | 2024-10-28 13:11 | NURSING ---
PT AND DAUGHTER UPDATED ON THE RESULTS OF THE CHEST X-RAY AND NEW ORDER TO START LEVAQUIN PO TILL 11/05/24 DUE TO START OF PNEUMONIA IN RT LOWER LOBE. RN AWARE
--- NOTE | 2024-10-28 16:18 | NURSING ---
THIS NURSE IN [place] HEARD PT ALARM GOING OFF,WENT TO ROOM AND PT JUST MOVING AROUND IN BED. THIS NURSE THEN SAW A LARGE AMOUNT OF BLOOD ON PT GREEN BED PAD AND FITTED SHEET. FOUND PT HAD RETORE OPEN SCAB ON RT ELBOW, ASKED PT WHAT HAPPENED PT STATED HE DIDNT KNOW. CLEANED ELBOW AND APPLIED NEW DRESSING. WITH HELP OF AID CHANGED PT LINEN. RN AWARE,WILL CONTINUE TO MONITOR.
--- NOTE | 2024-10-28 18:59 | NURSING ---
DAUGHTER REQUESTING A GERMAN FOR PT FOR Friday10/30/24 JUST TO GET OUT AND DRIVE PT AROUND AND THEN MAYBE LUNCH. AND PROVIDER EDUCATION SPECIALIST AT 9AM. NOTE LEFT FOR .DAUGHTER ALSO ASKED IF SHE COULD SWITCH THERE OXYGEN TANK FOR ONE OF OURS. THIS NURSE STATED WE WOULD HAVE TO CHECK. RN AWARE
[2024-10-28] MEDS: Senna/Docusate Sodium 1 Tablet 2 TABLET PO (22:29)
[2024-10-29] VITALS (7 sets, daily range): BP systolic 93–136; BP diastolic 64–85; PULSE 72–90; RESP 16–24; TEMP 36.7; O2SAT 82–98
[2024-10-29] MEDS: Potassium Chloride Oral Tablet 20 MEQ PO (09:10)
[2024-10-29] MEDS: Metoprolol(XL)Succ 50 MG Tablet PO (10:18)
--- NOTE | 2024-10-29 12:39 | CPS ---
Pt declined his home Vest therapy.
[2024-10-29] MEDS: Albuterol IH (6.7 GM) 1 PUFF INHALER 2 PUFF INHALATION (19:37)
[2024-10-29] MEDS: Budesonide Respules 0.5 MG/2 ML AMPUL.NEB. INHALATION (19:46)
[2024-10-30 01:44] VITALS: PULSE 72; RESP 16
[2024-10-30] MEDS: Budesonide Respules 0.5 MG/2 ML AMPUL.NEB. INHALATION ×2 (07:20→19:05)
[2024-10-30 07:38] VITALS: PULSE 77; RESP 16; O2SAT 96
[2024-10-30] MEDS: Potassium Chloride Oral Tablet 20 MEQ PO (08:07)
[2024-10-30 08:11] VITALS: BP 107/73; PULSE 77
[2024-10-30] MEDS: Metoprolol(XL)Succ 50 MG Tablet PO (08:11)
[2024-10-30 08:26] VITALS: BP 107/73; PULSE 77; RESP 18; TEMP 36.5; O2SAT 95
--- NOTE | 2024-10-30 08:40 | RAD_ITS ---
PROCEDURE: CHEST PA AND LATERAL 10/30/2024 REASON FOR EXAM: DRY COUGH, MUCOUS. TECHNIQUE: Procedure Code: RADCXR Modality: DX Procedure: CHEST PA AND LATERAL COMPARISON: Chest x-ray 10/27/2024. CTA chest abdominopelvic 10/14/2024. FINDINGS: Hardware: None. Heart: No cardiomegaly. Mediastinum: Unremarkable. Lungs: Persistent airspace opacities in the right lower lobe superior on CT scan. No pleural effusion or pneumothorax. Bones: No acute bony abnormalities. RAD/Chest PA and Lateral IMPRESSION: Again seen is airspace opacity in the right lower lobe similar to CT scan perfo rmed 10/14/2024 which can represent pneumonia or lung cancer. Reading Location: [id number]
[2024-10-30] MEDS: guaiFENesin/D-Methorphan TAB.SR.12H 1 TABLET PO ×2 (08:54→20:44)
--- NOTE | 2024-10-30 10:02 | NURSING ---
Addendum entered by Raquel Marte 10/30/24 10:43: dr olmedo ordered CT scan chest w/out contrast to f/u possible cancer or pneumonia per this AM chest xray results Original Note: Dr Car called requesting that DR Olmedo call him, message sent regarding CXR results. Dr Olmedo aware.
--- NOTE | 2024-10-30 10:38 | NURSING ---
PT LEFT FLOOR AT 1030 BY WHEEL CHAIR AND OXYGEN WITH DAUGHTER FOR GERMAN.
--- NOTE | 2024-10-30 14:13 | NURSING ---
PT RETURNED AT 1400 TO FLOOR BY WHEEL CHAIR WITH OXYGEN AND DAUGHTER. PT STATED HE TOLERATED WELL.
[2024-10-30 14:20] VITALS: PULSE 75; RESP 16
--- NOTE | 2024-10-30 16:00 | NURSING ---
UPDATED PT AND DAUGHTER ON NEW MED CHANGE AND CHEST X-RAY/CT SCAN.
[2024-10-30 19:10] VITALS: PULSE 80; RESP 22; O2SAT 96
[2024-10-31] VITALS (7 sets, daily range): BP systolic 94–107; BP diastolic 57–59; PULSE 62–107; RESP 12–24; TEMP 36.1; O2SAT 91–97
[2024-10-31] MEDS: Budesonide Respules 0.5 MG/2 ML AMPUL.NEB. INHALATION ×2 (07:15→19:08)
[2024-10-31] MEDS: Potassium Chloride Oral Tablet 20 MEQ PO (08:58)
[2024-10-31] MEDS: guaiFENesin/D-Methorphan TAB.SR.12H 1 TABLET PO ×2 (09:02→20:07)
[2024-10-31] MEDS: Metoprolol(XL)Succ 50 MG Tablet PO (10:40)
[2024-11-01] VITALS (8 sets, daily range): BP systolic 86–112; BP diastolic 53–74; PULSE 67–101; RESP 16–18; TEMP 36.4; O2SAT 91–97
[2024-11-01] MEDS: Budesonide Respules 0.5 MG/2 ML AMPUL.NEB. INHALATION ×2 (07:35→19:33)
--- NOTE | 2024-11-01 09:50 | NURSING ---
Addendum entered by Angie Britt 11/01/24 10:15: made aware, ok to hold, plavix, lasix, metoprolol. Original Note: pt had bloody nose while up to bathroom, pt bp reading this am is 86/57.will continue to monitor patient.
[2024-11-01] MEDS: Potassium Chloride Oral Tablet 20 MEQ PO (09:51)
[2024-11-01] MEDS: guaiFENesin/D-Methorphan TAB.SR.12H 1 TABLET PO ×2 (09:53→20:08)
--- NOTE | 2024-11-01 19:36 | CPS ---
Pt refusing vest treatment at this time
[2024-11-02] VITALS (8 sets, daily range): BP systolic 96–109; BP diastolic 67–74; PULSE 77–96; RESP 16–24; TEMP 36.8; O2SAT 93–95; BMI 21.6
[2024-11-02] MEDS: Budesonide Respules 0.5 MG/2 ML AMPUL.NEB. INHALATION ×2 (07:05→18:38)
[2024-11-02] MEDS: Potassium Chloride Oral Tablet 20 MEQ PO (09:15)
[2024-11-02] MEDS: guaiFENesin/D-Methorphan TAB.SR.12H 1 TABLET PO (09:18)
[2024-11-02] MEDS: Metoprolol(XL)Succ 50 MG Tablet PO (11:17)
[2024-11-02] MEDS: Albuterol IH (6.7 GM) 1 PUFF INHALER 2 PUFF INHALATION (11:21)
--- NOTE | 2024-11-02 18:51 | NURSING ---
UPDATED PT AND DAUGHTER ON RESULTS ON THE CT SCAN OF THE CHEST. DAUGHTER HAD QUESTIONS AND THIS NURSE ANSWERED WHAT SHE COULD AND THE REST THIS NURSE STATED TO DAUGHTER THAT HOWIEPLATE PUT IN WORKER WOULD BE ABLE TO HELP HER WITH THE REST OF QUESTIONS. THIS NURSE GAVE THE DAUGHTER SALOME CARD. RN AWARE
--- NOTE | 2024-11-02 22:25 | CPS ---
[2214] Pt. politely refused use of BiPAP tonight. Pt. resting comfortably on 3L NC at this time.
[2024-11-03] VITALS (7 sets, daily range): BP systolic 88–109; BP diastolic 59–70; PULSE 62–90; RESP 16–21; TEMP 36.6; O2SAT 91–98
[2024-11-03] MEDS: Budesonide Respules 0.5 MG/2 ML AMPUL.NEB. INHALATION (07:39)
[2024-11-03] MEDS: Potassium Chloride Oral Tablet 20 MEQ PO (08:31)
[2024-11-03] MEDS: guaiFENesin/D-Methorphan TAB.SR.12H 1 TABLET PO ×2 (08:33→22:04)
--- NOTE | 2024-11-03 08:41 | NURSING ---
pt BP this am os did not give lasix or metoprolol, aware.
[2024-11-03] MEDS: Senna/Docusate Sodium 1 Tablet 2 TABLET PO (22:05)
--- NOTE | 2024-11-04 01:42 | NURSING ---
Written communication left for Dr. Olmedo regarding blood observed in pt's stool.
--- NOTE | 2024-11-04 03:54 | CPS ---
Patient did not want to do his home vest treatment when asked by this FISH FLIPPER
[2024-11-04 07:35] VITALS: PULSE 78; RESP 16; O2SAT 98
[2024-11-04] MEDS: Budesonide Respules 0.5 MG/2 ML AMPUL.NEB. INHALATION ×2 (07:35→18:35)
[2024-11-04 08:52] VITALS: BP 92/60; RESP 18; TEMP 36.7; O2SAT 93
[2024-11-04 08:55] LABS: Hematocrit 33.1 % (40-54); Hemoglobin 10.4 g/dL (13.0-16.5); Immature Granulocytes Count 0.070 X10^3/uL (0.0-0.0); Mean Corp Hgb Conc 31.4 g/dL (32-36); Mean Corpuscular Volume 93.8 fL (80-94); Mean Platelet Vol. 9.1 fl (6.2-12.0); NRBC Flagged by Analyzer 0 % (0-5); Platelet Count 222 K/mm3 (150-450); RBC Distribution Width CV 17.2 % (11.6-14.6); RBC Distribution Width SD 59.0 fl (35.1-43.9); Red Blood Count 3.53 M/mm3 (4.6-6.2); White Blood Count 5.6 K/mm3 (4.4-11.0)
[2024-11-04] MEDS: Potassium Chloride Oral Tablet 20 MEQ PO (09:00)
[2024-11-04] MEDS: guaiFENesin/D-Methorphan TAB.SR.12H 1 TABLET PO ×2 (09:01→21:24)
[2024-11-04 09:02] VITALS: PULSE 78
[2024-11-04 09:23] LABS: Anion Gap 11 (5-15); BUN 18 mg/dL (4-19); BUN/Creat Ratio 17.6 RATIO (10-20); Calcium,Total 8.5 mg/dL (7.6-11.0); Carbon Dioxide 24.4 mmol/L (21.0-32.0); Chloride 106 mmol/L (98-108); Estimated Creatinine Clearance 64.84 ml/min (50-250); Glucose 84 mg/dL (70-99); Potassium 3.6 mmol/L (3.3-5.1)
[2024-11-04 09:54] LABS: Iron 51 ug/dL (65-175); Iron Binding Capacity,Unsat 130 ug/dL (228-428)
[2024-11-04 09:56] LABS: Iron Binding Capacity,Total 181 ug/dL (250-450)
[2024-11-04 13:28] VITALS: PULSE 102; RESP 18
[2024-11-04 18:40] VITALS: PULSE 92; RESP 18; O2SAT 99
[2024-11-05] VITALS (7 sets, daily range): BP systolic 102; BP diastolic 59; PULSE 68–79; RESP 17–20; TEMP 36.7; O2SAT 95–99
[2024-11-05] MEDS: Budesonide Respules 0.5 MG/2 ML AMPUL.NEB. INHALATION ×2 (07:42→19:01)
[2024-11-05 09:22] LABS: Hematocrit 34.3 % (40-54); Hemoglobin 11.1 g/dL (13.0-16.5)
[2024-11-05] MEDS: Potassium Chloride Oral Tablet 20 MEQ PO (09:47)
[2024-11-05] MEDS: Metoprolol(XL)Succ 50 MG Tablet PO (09:49)
[2024-11-05] MEDS: guaiFENesin/D-Methorphan TAB.SR.12H 1 TABLET PO ×2 (09:49→20:06)
--- NOTE | 2024-11-05 13:47 | CASEMGMT ---
Social Work SW received call from dtr, Ashtyn, requesting updates on pt's progress and DC timeframe, along with questions of needs at DC. SW provided update from Kristian a few days ago. Noted pt fatigues greatly with activity, uses 6L of O2 with exertion, mind-modA with toileting and LE care more d/t the fatigue factor. Dtr confirmed nursing notified her of pt having emphysema and pt will need to be on O2 indefinitely. SW to coordinate at time of DC. Dt inquired about need for CPAP or sleep study. SW relayed to nursing to follow up. SW explained to dtr that SHELF STOCKER repeated MOCA and pt scored 15/30, which is an increase from admission score of 8/30, though, still having moderate cognitive impairment and needs assistance with meds/finances and continuous supervision. Dtr confirmed the DC plan is for pt to DC to her house and although she works, her will be home and available to assist. Other family members have offered to assist daily as well. SW explained if pt is set up and toileted, he can be alone for about an hour at a time, so not a true 24/7 care, but nursing reports pt is more confused in the evenings () and pt does need supervision and CGA for physical tasks. Dtr expressed understanding and has no concerns for DC. Dtr is requesting a transport w/c at DC and a more portable O2 tank. SW to investigate and coordinate eligible needs at DC, along with skilled HHC. Dtr appreciative. SW will provide update and DC timeframe next week. Dtr appreciative. SW will continue to follow. Margaret Marcial MSW RIGGER CHIEF
[2024-11-05] MEDS: Albuterol IH (6.7 GM) 1 PUFF INHALER 2 PUFF INHALATION (17:50)
[2024-11-06] VITALS (7 sets, daily range): BP systolic 102; BP diastolic 69; PULSE 68–92; RESP 16–20; TEMP 36.8; O2SAT 92–96
[2024-11-06] MEDS: Budesonide Respules 0.5 MG/2 ML AMPUL.NEB. INHALATION ×2 (07:02→19:01)
[2024-11-06 07:25] LABS: Hematocrit 31.8 % (40-54); Hemoglobin 10.0 g/dL (13.0-16.5)
[2024-11-06] MEDS: Potassium Chloride Oral Tablet 20 MEQ PO (08:52)
[2024-11-06] MEDS: guaiFENesin/D-Methorphan TAB.SR.12H 1 TABLET PO (08:55)
[2024-11-06] MEDS: Metoprolol(XL)Succ 50 MG Tablet PO (08:56)
[2024-11-07] MEDS: Budesonide Respules 0.5 MG/2 ML AMPUL.NEB. INHALATION ×2 (07:18→19:03)
[2024-11-07 07:19] VITALS: PULSE 64; RESP 18; O2SAT 91
[2024-11-07 09:31] VITALS: BP 104/64; PULSE 71; RESP 19; TEMP 36.9; O2SAT 97
[2024-11-07 09:41] VITALS: BP 104/64; PULSE 71
[2024-11-07] MEDS: Metoprolol(XL)Succ 50 MG Tablet PO (09:41)
[2024-11-07] MEDS: Potassium Chloride Oral Tablet 20 MEQ PO (09:41)
[2024-11-07 12:51] VITALS: PULSE 66; RESP 18; O2SAT 96
[2024-11-07 19:03] VITALS: PULSE 79; RESP 20
[2024-11-08 07:40] VITALS: PULSE 65; RESP 18
[2024-11-08] MEDS: Budesonide Respules 0.5 MG/2 ML AMPUL.NEB. INHALATION ×2 (07:40→19:05)
[2024-11-08 08:48] LABS: Hematocrit 33.6 % (40-54); Hemoglobin 10.8 g/dL (13.0-16.5)
[2024-11-08 09:45] VITALS: BP 97/68; PULSE 77; RESP 18; TEMP 36.7; O2SAT 97
[2024-11-08] MEDS: Potassium Chloride Oral Tablet 20 MEQ PO (09:47)
[2024-11-08 13:40] VITALS: PULSE 70; RESP 18
[2024-11-08 16:44] VITALS: O2SAT 94
[2024-11-08 19:05] VITALS: PULSE 80; RESP 18; O2SAT 96
[2024-11-08 20:55] VITALS: RESP 16
--- NOTE | 2024-11-08 20:59 | PN.TCU_ITS ---
Subjective Subjective Patient seen, examined for regulatory visit. His only complaint is dry cough, but I think it is related to his astma/copd. Objective Data Objective Data Vital Signs: Vital Signs Temp Pulse Resp BP Pulse Ox O2 Del Method O2 Flow Rate 98.0 F 70 16 97/68 94 Nasal Cannula 3 11/08/24 09:45 11/08/24 13:40 11/08/24 20:55 11/08/24 09:45 11/08/24 16:44 11/08/24 20:55 11/08/24 20:55 FiO2 32 10/28/24 01:10 Oxygen Flow Rate (L/min) 3 Oxygen Delivery Method Nasal Cannula Weight: 73.981 kg Body Mass Index (BMI) 21.6 Intake & Output: Intake and Output for Last 24 Hours 11/06/24 11/07/24 11/08/24 23:59 23:59 23:59 Intake Total 720 / 720 760 / 760 402 / 402 Balance 720 / 720 760 / 760 402 / 402 Lab / Micro Data 11/08/24 08:15 11/04/24 07:26 Labs: Laboratory Results - last 24 hr 11/08/24 08:15: Hgb 10.8 L, Hct 33.6 L Micro: Microbiology 11/04/24 08:40 Stool Stool Occult Blood (NORMAN) - Final Occult Blood Positive 10/27/24 11:50 Mucosa - Nasopharyngeal Respiratory Panel (PCR) - Final 10/27/24 08:09 Nasal Secretion SARS-CoV-2 Antigen (Rapid) - Final 10/25/24 06:11 Nasal Secretion SARS-CoV-2 Antigen (Rapid) - Final 10/23/24 05:31 Nasal Secretion SARS-CoV-2 Antigen (Rapid) - Final 10/21/24 04:52 Nasal Secretion SARS-CoV-2 Antigen (Rapid) - Final Physical Exam Const alert General Appearance: cooperative HEENT normocephalic Eyes PERRL and EOMs intact bilaterally Neck supple, no JVD and no carotid bruits Resp Auscultation: crackles bilateral and diminished lung sounds bilateral Cardio regular rate and regular rhythm GI normal to inspection, nondistended, normoactive bowel sounds, non-tender and non-distended Extremity normal capillary refill General Extremity: Negative for edema Skin no rashes or lesions noted General Skin Exam: no breakdown Psych affect normal Appearance: appropriate Assessment & Plan Assessment/Plan (1) Debility: (2) Ruptured abdominal aortic aneurysm: (3) 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): (4) Acute respiratory failure with hypoxia: (5) Postoperative ileus: (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): (7) DVT (deep venous thrombosis): (8) Atrial fibrillation: (9) COPD (chronic obstructive pulmonary disease): (10) Coronary artery disease: (11) Hypertension: (12) Chronic heart failure with preserved ejection fraction (HFpEF): (13) Hypothyroidism: (14) Asthma: (15) Depression: (16) BPH (benign prostatic hyperplasia): PLAN: Plan 73 year old male with below past medical history hospitalized for ruptured abdominal aortic aneurysm, underwent EVAR, complicated by endoleak, acute respiratory failure requiring reintubation, postoperative ileus, heparin induced thrombocytopenia, right lower extremity dvt, admitted to TCU with debility, here for rehabilitation, strengthening, prior to discharge home alone. * Debility - PT/OT. * Dysphagia - ST. * Pain - Tylenol 1000mg q6 prn pain (1-10). * Bowel - Miralax 17gm bid, senna/colace 2 tablet bid, Magnesium citrate 300mL daily prn, Dulcolax 10mg daily prn. * Adult immunization - Administer pneumonia vaccine, covid vaccine, flu vaccine as appropriate. * DVT prophylaxis - Xarelto. * COPD - Budesonide 0.5mg neb bid, Duoneb 3mL neb q6 prn, Albuterol 2 puffs q4 prn, Prednisone 5mg daily. * Hypertension - Metoprolol succinate 50mg daily. * Hyperlipidemia - Atorvastatin 80mg qhs. * Coronary artery disease - Metoprolol succinate 50mg daily, Plavix 75mg daily, NTG 0.4mg sl q5m prn. * Chronic HFpEF - Metoprolol succinate 50mg daily, Furosemide 20mg daily. * Hypothyroidism - Levothyroxine 75mcg daily. * Asthma - Budesonide 0.5mg neb bid, Duoneb 3mL neb q6 prn, Albuterol 2 puffs q4 prn, Prednisone 5mg daily, Singulair 10mg daily. * GERD - Pantoprazole 40mg twice daily. * Hypokalemia - KCL 20meq daily. * Atrial fibrillation - Metoprolol succinate 50mg daily, Xarelto 20mg daily. * Right lower extremity dvt - Xarelto 20mg daily. * BPH/urinary retention - Tamsulosin 0.4mg twice daily, Finasteride 5mg daily. * Iron deficiency anemia - Ferrex 150mg daily, Vitamin C 500mg daily. * Skin irritation - Calmoseptine topical bid. The following psychotropic medication was present on admission: Sertraline 100mg daily. Psychotropic medication therapy is indicated for a diagnosis of: Major Depression. Based on my clinical evaluation, continuation of the medication is necessary at this time. Gradual dose reduction plan (select one): ____ GDR will be attempted. Will monitor patient symptoms and behaviors in response to GDR. __x__ GRD contraindicated. Reason contraindicated: stable chronic longterm use. The following psychotropic medication is being started or the dose in being increased: Mirtazapine 7.5mg qhs. Psychotropic medication therapy is indicated for a diagnosis of: Appetite loss. In my professional judgement, medication is necessary because the resident?s symptoms cause significant distress to the resident or a danger to the resident or others. Evaluation for underlying causes including medical illness and pain has been considered. The benefits of the medication are felt to outweigh potential harm. Nonpharmacologic/behavior interventions have been attempted but have not been effective or nonpharmacologic interventions are contraindicated for this patient. Potential benefits and risks of treatment and alternatives have been reviewed with resident/family and the resident/family have accepted psychotropic medication treatment. Please see nursing documentation.
[2024-11-09] VITALS (9 sets, daily range): BP systolic 124; BP diastolic 80; PULSE 70–90; RESP 13–22; TEMP 36.7; O2SAT 93–98; BMI 21.7
[2024-11-09] MEDS: Budesonide Respules 0.5 MG/2 ML AMPUL.NEB. INHALATION ×2 (07:35→19:10)
[2024-11-09] MEDS: Potassium Chloride Oral Tablet 20 MEQ PO (08:55)
[2024-11-09] MEDS: Metoprolol(XL)Succ 50 MG Tablet PO (08:59)
--- NOTE | 2024-11-09 13:12 | RAD_ITS ---
PROCEDURE: CHEST PA AND LATERAL 11/09/2024 REASON FOR EXAM: DRY PAROXYSMAL COUGH. TECHNIQUE: Procedure Code: RADCXR Modality: DX Procedure: CHEST PA AND LATERAL COMPARISON: Available priors FINDINGS: Heart and mediastinum are within normal limits. The lungs are hyperinflated. There is no focal consolidation. A calcified granuloma seen in the right upper lobe. No effusion or pneumothorax seen. Multilevel degenerative changes through the spine. RAD/Chest PA and Lateral IMPRESSION: Hyperinflated lungs. No acute cardiopulmonary process. Reading Location: [facility]
--- NOTE | 2024-11-09 15:19 | CASEMGMT ---
Social Work SW phoned dtr to update that IDT is agreeable to set a DC date for pt next week, pending dtr attending therapy training 11/11 as scheduled to ensure dtr can care for pt at home. Dtr agreeable. Discussed DC needs: skilled HHC PT/OT/ST/SN/GRIGGS/SW. SW offered list of skilled HHC agencies within geographical area, INN with insurance, that include quality and resource data via [employer] guide. Dtr agreed and will be visiting this evening. SW to leave list in pt's room. Dtr requesting transport w/c as she will purchase FWW. SW to also coordinate O2. Pt will follow up with policy change clerks supervisor if a sleep study or CPAP is needed. Dtr expressed understanding and will contact this worker after training to set a DC date. Margaret Marcial MSW WORLD RENOWNED CHEF AND RESTAURANT OWNER
--- NOTE | 2024-11-09 17:35 | NURSING ---
UPDATED PT AND DAUGHTER ON NEW MED ORDERS AND OK FOR GERMAN ON 11/11/24 AT 1600.
[2024-11-09] MEDS: Senna/Docusate Sodium 1 Tablet 2 TABLET PO (20:11)
[2024-11-10] VITALS (7 sets, daily range): BP systolic 109; BP diastolic 69; PULSE 62–89; RESP 16–24; TEMP 36.4; O2SAT 93–97
[2024-11-10] MEDS: Potassium Chloride Oral Tablet 20 MEQ PO (10:16)
[2024-11-10] MEDS: Metoprolol(XL)Succ 50 MG Tablet PO (10:21)
[2024-11-10] MEDS: Budesonide Respules 0.5 MG/2 ML AMPUL.NEB. INHALATION (18:56)
[2024-11-10] MEDS: Senna/Docusate Sodium 1 Tablet 2 TABLET PO (20:01)
[2024-11-11] MEDS: Budesonide Respules 0.5 MG/2 ML AMPUL.NEB. INHALATION ×2 (07:12→21:13)
[2024-11-11 07:35] VITALS: PULSE 72; RESP 18; O2SAT 95
[2024-11-11 07:55] LABS: Hematocrit 34.2 % (40-54); Hemoglobin 10.7 g/dL (13.0-16.5); Immature Granulocytes Count 0.070 X10^3/uL (0.0-0.0); Mean Corp Hgb Conc 31.3 g/dL (32-36); Mean Corpuscular Volume 93.4 fL (80-94); Mean Platelet Vol. 8.7 fl (6.2-12.0); NRBC Flagged by Analyzer 0 % (0-5); Platelet Count 245 K/mm3 (150-450); RBC Distribution Width CV 16.7 % (11.6-14.6); RBC Distribution Width SD 57.3 fl (35.1-43.9); Red Blood Count 3.66 M/mm3 (4.6-6.2); White Blood Count 6.1 K/mm3 (4.4-11.0)
[2024-11-11 08:55] VITALS: BP 99/60; PULSE 70; RESP 17; TEMP 36.9; O2SAT 95
[2024-11-11] MEDS: Potassium Chloride Oral Tablet 20 MEQ PO (09:03)
[2024-11-11 09:04] VITALS: PULSE 70
[2024-11-11] MEDS: Metoprolol(XL)Succ 50 MG Tablet PO (09:04)
[2024-11-11 09:19] LABS: Anion Gap 10 (5-15); BUN 16 mg/dL (4-19); BUN/Creat Ratio 17.8 RATIO (10-20); Calcium,Total 8.3 mg/dL (7.6-11.0); Carbon Dioxide 26.1 mmol/L (21.0-32.0); Chloride 105 mmol/L (98-108); Estimated Creatinine Clearance 72.05 ml/min (50-250); Glucose 84 mg/dL (70-99); Potassium 3.7 mmol/L (3.3-5.1)
[2024-11-11 13:23] VITALS: PULSE 98; RESP 22
[2024-11-11 21:13] VITALS: PULSE 93; RESP 20
[2024-11-12] VITALS (7 sets, daily range): BP systolic 102; BP diastolic 69; PULSE 64–89; RESP 17–20; TEMP 36.8; O2SAT 93–94
[2024-11-12] MEDS: Budesonide Respules 0.5 MG/2 ML AMPUL.NEB. INHALATION (07:40)
[2024-11-12] MEDS: Potassium Chloride Oral Tablet 20 MEQ PO (09:27)
[2024-11-12] MEDS: Metoprolol(XL)Succ 50 MG Tablet PO (09:31)
--- NOTE | 2024-11-12 14:11 | CASEMGMT ---
Social Work SW received a call from dtr requesting to set a DC date for pt. SW inquired about therapy training. Dtr stated it went well and she feels comfortable caring for pt. SW discussed DC date and dtr agreed to 11/18. Discussed DME and HHC needs. Dtr requested transport w/c, hospital bed and O2 through [facility] SW to coordinate and dtr prefers to have DME delivered to her home. SW confirmed skilled HHC needs. Dtr requested another list of options. SW printed and will provide to pt. Dtr to transport after work. - SW spoke with pt to discuss DC 11/18. Pt agreeable. SW issued NOMNC and explained appeal rights. Pt denied appeal. provided skilled HHC list. SW also discussed palliative services as pt has several dx and meets criteria. Educated to services. Pt agreed to speak with dtr on services. SW provided list of providers to choose from if he elects. Pt to notify this worker. - SW sent referral to [facility] via [employer]. Plan: DC to dtr's house 11/18, HHC PT/OT/ST/SN/GRIGGS/PORTER, transport w/c, hospital bed, O2, palliative care Margaret Marcial PSYCHOTHERAPIST COUNSELOR DIRECTOR OF GLOBAL TALENT
--- NOTE | 2024-11-12 14:14 | DS.PCM_ITS ---
Providers Date of Admission: 10/13/24 Primary Care Physician: Dr. Sarah Lanier MD Reason For Visit: COPD, REPTURED INFRARENAL ABDOMINAL AORTIC Diagnosis Discharge Diagnosis (1) Debility: Status: Chronic Code(s): R53.81 - Other malaise (2) Ruptured abdominal aortic aneurysm: Status: Acute Code(s): I71.30 - Abdominal aortic aneurysm, ruptured, unspecified (3) 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): Status: Acute (4) Acute respiratory failure with hypoxia: Status: Acute Code(s): J96.01 - Acute respiratory failure with hypoxia (5) Postoperative ileus: Status: Acute Code(s): K91.89 - Other postprocedural complications and disorders of digestive system; K56.7 - Ileus, unspecified (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): Status: Acute Code(s): D75.829 - Heparin-induced thrombocytopenia, unspecified (7) DVT (deep venous thrombosis): Status: Acute Code(s): I82.409 - Acute embolism and thrombosis of unspecified deep veins of unspecified lower extremity (8) Atrial fibrillation: Status: Acute Code(s): I48.91 - Unspecified atrial fibrillation (9) COPD (chronic obstructive pulmonary disease): Status: Chronic Code(s): J44.9 - Chronic obstructive pulmonary disease, unspecified (10) Coronary artery disease: Status: Chronic Code(s): I25.10 - Atherosclerotic heart disease of [place] coronary artery without angina pectoris (11) Hypertension: Status: Chronic Code(s): I10 - Essential (primary) hypertension (12) Chronic heart failure with preserved ejection fraction (HFpEF): Status: Acute Code(s): I50.32 - Chronic diastolic (congestive) heart failure (13) Hypothyroidism: Status: Acute Code(s): E03.9 - Hypothyroidism, unspecified (14) Asthma: Status: Acute Code(s): J45.909 - Unspecified asthma, uncomplicated (15) Depression: Status: Acute Code(s): F32.A - Depression, unspecified (16) BPH (benign prostatic hyperplasia): Status: Chronic Code(s): N40.0 - Benign prostatic hyperplasia without lower urinary tract symptoms Plan 73 year old male with below past medical history hospitalized for ruptured abdominal aortic aneurysm, underwent EVAR, complicated by endoleak, acute respiratory failure requiring reintubation, postoperative ileus, heparin induced thrombocytopenia, right lower extremity dvt, admitted to TCU with debility, here for rehabilitation, strengthening, prior to discharge home alone. * Debility - PT/OT. * Dysphagia - ST. * Pain - Tylenol 1000mg q6 prn pain (1-10). * Bowel - Miralax 17gm bid, senna/colace 2 tablet bid, Magnesium citrate 300mL daily prn, Dulcolax 10mg daily prn. * Adult immunization - Administer pneumonia vaccine, covid vaccine, flu vaccine as appropriate. * DVT prophylaxis - Xarelto. * COPD - Budesonide 0.5mg neb bid, Duoneb 3mL neb q6 prn, Albuterol 2 puffs q4 prn, Prednisone 5mg daily. * Hypertension - Metoprolol succinate 50mg daily. * Hyperlipidemia - Atorvastatin 80mg qhs. * Coronary artery disease - Metoprolol succinate 50mg daily, Plavix 75mg daily, NTG 0.4mg sl q5m prn. * Chronic HFpEF - Metoprolol succinate 50mg daily, Furosemide 20mg daily. * Hypothyroidism - Levothyroxine 75mcg daily. * Asthma - Budesonide 0.5mg neb bid, Duoneb 3mL neb q6 prn, Albuterol 2 puffs q4 prn, Prednisone 5mg daily, Singulair 10mg daily. * GERD - Pantoprazole 40mg twice daily. * Hypokalemia - KCL 20meq daily. * Atrial fibrillation - Metoprolol succinate 50mg daily, Xarelto 20mg daily. * Right lower extremity dvt - Xarelto 20mg daily. * BPH/urinary retention - Tamsulosin 0.4mg twice daily, Finasteride 5mg daily. * Iron deficiency anemia - Ferrex 150mg daily, Vitamin C 500mg daily. * Skin irritation - Calmoseptine topical bid. The following psychotropic medication was present on admission: Sertraline 100mg daily. Psychotropic medication therapy is indicated for a diagnosis of: Major Depression. Based on my clinical evaluation, continuation of the medication is necessary at this time. Gradual dose reduction plan (select one): ____ GDR will be attempted. Will monitor patient symptoms and behaviors in response to GDR. __x__ GRD contraindicated. Reason contraindicated: stable chronic director long term care use. The following psychotropic medication is being started or the dose in being increased: Mirtazapine 7.5mg qhs. Psychotropic medication therapy is indicated for a diagnosis of: Appetite loss. In my professional judgement, medication is necessary because the resident?s symptoms cause significant distress to the resident or a danger to the resident or others. Evaluation for underlying causes including medical illness and pain has been considered. The benefits of the medication are felt to outweigh potential harm. Nonpharmacologic/behavior interventions have been attempted but have not been effective or nonpharmacologic interventions are contraindicated for this patient. Potential benefits and risks of treatment and alternatives have been reviewed with resident/family and the resident/family have accepted psychotropic medication treatment. Please see nursing documentation. Medications at Discharge Home Medications multivitamin 1 each PO DAILY vitamin 06/11/20 nitroglycerin 0.4 mg sublingual tablet 0.4 mg sublingual Q5M PRN chest pain #1 BOTTLE 06/22/20 PEP device #1 ea 02/16/21 atorvastatin 80 mg tablet 80 mg PO QHS cholesterol #90 tabs 01/20/24 levothyroxine 75 mcg tablet 75 mcg PO DAILY thyroid #90 tabs 01/20/24 magnesium chloride 71.5 mg (magnesium chloride) tablet,delayed release 71.5 mg PO BID #180 tabs 01/20/24 rivaroxaban 20 mg tablet 20 mg PO DAILY DVT prophylaxis #90 tabs 01/20/24 sertraline 100 mg tablet (Zoloft) 100 mg PO DAILY depression #90 tabs 01/20/24 montelukast 10 mg tablet 10 mg PO QPM asthma #90 tabs 03/16/24 albuterol sulfate 90 mcg/actuation aerosol inhaler 2 inh inhalation Q4H PRN PRN Wheezing #8.5 grams 05/24/24 omalizumab 300 mg/2 mL subcutaneous auto-injector (Xolair) 300 mg (2 mL) subcut Q4W #2 mL 07/14/24 clopidogrel 75 mg tablet (Plavix) 75 mg PO DAILY blood thinner 10/13/24 ipratropium 0.5 mg-albuterol 3 mg (2.5 mg base)/3 mL nebulization soln 3 ml inhalation Q6H PRN wheezing 10/13/24 metoprolol succinate 50 mg tablet,extended release 24 hr 50 mg PO DAILY blood pressure 10/13/24 potassium chloride 20 mEq tablet,extended release(part/cryst) 20 meq PO DAILY supplement 10/13/24 prednisone 10 mg tablet 5 mg PO DAILY COPD 10/13/24 OXYGEN - Supplemental ([facility] INFORMATIONAL USE ONLY) 10/20/24 ascorbic acid (vitamin C) 500 mg tablet 500 mg PO 1000 #0 tabs 11/12/24 benzonatate 100 mg capsule 100 mg PO TID #0 caps 11/12/24 budesonide 0.5 mg/2 mL suspension for nebulization 0.5 mg (2 mL) inhalation BID.RT #0 mL 11/12/24 finasteride 5 mg tablet 5 mg PO DAILY 30 days #30 tabs 11/12/24 furosemide 20 mg tablet 20 mg PO DAILY 30 days #30 tabs 11/12/24 mirtazapine 15 mg tablet 7.5 mg (1/2 x 15 mg) PO QHS 30 days #15 tabs 11/12/24 pantoprazole 40 mg tablet,delayed release 40 mg PO BID 30 days #60 tabs 11/12/24 polysaccharide iron complex 150 mg iron capsule (Ferrex) 150 mg PO DAILY 30 days #30 caps 11/12/24 tamsulosin 0.4 mg capsule 0.4 mg PO BID 30 days #60 caps 11/12/24 Hospital Course Operations - (See below.) Procedures None Summary of Care Provided Minutes Spent on Discharge: 35 Hospital Course: 73 year old male with below past medical history hospitalized for ruptured abdominal aortic aneurysm, underwent EVAR, complicated by endoleak, acute respiratory failure requiring reintubation, postoperative ileus, heparin induced thrombocytopenia, right lower extremity dvt, admitted to TCU with debility, here for rehabilitation, strengthening, prior to discharge home alone. Discharge home alone 11/18/2024, [facility] PT/OT/ST/SN/SW/GRIGGS, hospital bed, transport wheelchair. Hospital Bed: Patient requires a hospital bed d/t needing frequent changes in position to alleviate pain, prevent ongoing pressure areas, assist in healing of current pressure areas, prevent aspiration or d/t respiratory condition. DX: COPD, Chronic respiratory failure with hypoxia. Transport Wheelchair: Patient has a mobility limitation that cannot be sufficiently resolved by using a cane or walker. Use of a w/c will improve the participating of ADLs on a regular basis in the home. A caregiver can propel patient safely. Physical Exam Const alert General Appearance: cooperative HEENT normocephalic Eyes PERRL and EOMs intact bilaterally Neck supple, no JVD and no carotid bruits Resp normal respiratory effort, normal air movement and clear to auscultation bilaterally Cardio regular rate and regular rhythm GI normal to inspection, nondistended, normoactive bowel sounds, non-tender and non-distended Extremity normal capillary refill General Extremity: Negative for edema Skin no rashes or lesions noted General Skin Exam: no breakdown Psych affect normal Appearance: appropriate Weight / BMI Weight Weight: 74.571 kg Body Mass Index (BMI) 21.7 ABG / Lab / Microbiology Data 11/11/24 07:06 11/11/24 07:06 Microbiology: Microbiology 11/04/24 08:40 Stool Stool Occult Blood (NORMAN) - Final Occult Blood Positive 10/27/24 11:50 Mucosa - Nasopharyngeal Respiratory Panel (PCR) - Final 10/27/24 08:09 Nasal Secretion SARS-CoV-2 Antigen (Rapid) - Final 10/25/24 06:11 Nasal Secretion SARS-CoV-2 Antigen (Rapid) - Final 10/23/24 05:31 Nasal Secretion SARS-CoV-2 Antigen (Rapid) - Final 10/21/24 04:52 Nasal Secretion SARS-CoV-2 Antigen (Rapid) - Final D/C Instructions Discharge Activity: Return to Normal Activity, May Shower and Use Walker Weight Bearing Status: Weight bearing as tolerated Call your doctor if you observe: Fever of 101 or Higher, Inability to urinate, Inability to have a bowel movement, Shortness of breath, Dizziness, Fainting spells, Swelling in the ankles, Chest pain and Uncontrolled pain DC O2, CPAP, BIPAP Needs Home O2 Discharge instructions: No Additional Instructions: Discharge home alone 11/18/2024, [facility] PT/OT/ST/SN/SW/GRIGGS, hospital bed, transport wheelchair. Hospital Bed: Patient requires a hospital bed d/t needing frequent changes in position to alleviate pain, prevent ongoing pressure areas, assist in healing of current pressure areas, prevent aspiration or d/t respiratory condition. DX: COPD, Chronic respiratory failure with hypoxia. Transport Wheelchair: Patient has a mobility limitation that cannot be sufficiently resolved by using a cane or walker. Use of a w/c will improve the participating of ADLs on a regular basis in the home. A caregiver can propel patient safely. Please Follow Up With: Sarah Lanier When: Within 1 week for TCM. Meaningful Use Info Meaningful Use Meaningful Use Diagnoses (Choose all that apply): None applicable Discharge Plan Admission Admit Date/Time: 10/13/24 19:58 Primary Reason for Your Visit: Debility. Attending Provider: Norris Olmedo Chi Primary Care Provider: Sarah Lanier Instructions Additional Instructions / Restrictions: Discharge home alone 11/18/2024, [facility] PT/OT/ST/SN/SW/GRIGGS, hospital bed, transport wheelchair. Hospital Bed: Patient requires a hospital bed d/t needing frequent changes in position to alleviate pain, prevent ongoing pressure areas, assist in healing of current pressure areas, prevent aspiration or d/t respiratory condition. DX: COPD, Chronic respiratory failure with hypoxia. Transport Wheelchair: Patient has a mobility limitation that cannot be sufficiently resolved by using a cane or walker. Use of a w/c will improve the participating of ADLs on a regular basis in the home. A caregiver can propel patient safely. Discharge Orders/Prescriptions Prescriptions: New ascorbic acid (vitamin C) 500 mg Tablet 500 mg PO 1000 Qty: 0 0RF benzonatate 100 mg Capsule 100 mg PO TID Qty: 0 0RF polysaccharide iron complex [Ferrex 150] 150 mg iron Capsule 150 mg PO DAILY 30 Days Qty: 30 0RF tamsulosin 0.4 mg Capsule 0.4 mg PO BID 30 Days Qty: 60 0RF pantoprazole 40 mg Tablet,Delayed Release (Dr/Ec) 40 mg PO BID 30 Days Qty: 60 0RF budesonide 0.5 mg/2 mL Suspension For Nebulization 0.5 mg inhalation BID.RT Qty: 0 0RF furosemide 20 mg Tablet 20 mg PO DAILY 30 Days Qty: 30 0RF mirtazapine 15 mg Tablet 7.5 mg PO QHS 30 Days Qty: 15 0RF finasteride 5 mg Tablet 5 mg PO DAILY 30 Days Qty: 30 0RF Continued montelukast 10 mg tablet 10 mg PO QPM Qty: 90 3RF Xolair 300 mg/2 mL auto-injector 300 mg subcut Q4W Qty: 2 11RF multivitamin 1 EACH tablet 1 each PO DAILY nitroglycerin 0.4 MG tablet, sublingual 0.4 mg SL Q5M PRN (Reason: chest pain) Qty: 1 0RF clopidogrel [Plavix] 75 mg tablet 75 mg PO DAILY prednisone 10 mg tablet 5 mg PO DAILY ipratropium-albuterol 0.5 mg-3 mg(2.5 mg base)/3 mL solution for nebulization 3 ml inhalation Q6H PRN metoprolol succinate 50 mg tablet extended release 24 hr 50 mg PO DAILY potassium chloride 20 mEq tablet,ER particles/crystals 20 meq PO DAILY Rx Instructions: TAKE 1 TABLET BY MOUTH ONCE DAILY WITH a meal. atorvastatin 80 mg tablet 80 mg PO QHS Qty: 90 3RF levothyroxine 75 mcg tablet 75 mcg PO DAILY Qty: 90 3RF magnesium chloride 71.5 mg tablet,delayed release (DR/EC) 71.5 mg PO BID Qty: 180 1RF rivaroxaban 20 mg tablet 20 mg PO DAILY Qty: 90 3RF Rx Instructions: must administer with evening meal sertraline [Zoloft] 100 mg tablet 100 mg PO DAILY Qty: 90 3RF albuterol sulfate 90 mcg/actuation HFA aerosol inhaler 2 inh INHALATION Q4H PRN PRN (Reason: Wheezing) Qty: 8.5 6RF Discontinued benzonatate 100 mg capsule 100 mg PO Q8H PRN Patient Comments: TAKE 1 TO 2 CAPSULES BY MOUTH EVERY 8 HOURS NEEDED for cough spironolactone 25 mg tablet 12.5 mg PO DAILY acetaminophen 325 MG tablet 650 mg PO Q6H PRN PRN (Reason: PAIN 1-10) 0RF tamsulosin [Flomax] 0.4 mg capsule 0.4 mg PO DAILY bisacodyl [Dulcolax (bisacodyl)] 5 mg tablet,delayed release (DR/EC) 10 mg PO DAILY PRN pantoprazole 40 mg tablet,delayed release (DR/EC) 40 mg PO DAILY amlodipine 5 mg tablet 5 mg PO DAILY Qty: 90 3RF clopidogrel 75 mg tablet 75 mg PO DAILY Qty: 90 3RF furosemide 20 mg tablet 10 mg PO Q OTHER DAY Qty: 60 1RF losartan 100 mg tablet 100 mg PO DAILY Qty: 90 3RF budesonide 1 mg/2 mL suspension for nebulization 1 mg inhalation BID Qty: 60 6RF No Action (DME) PEP device See Rx Instructions .ROUTE .MEDSUPPLY Qty: 1 0RF Rx Instructions: with training (DME) OXYGEN - Supplemental ([facility] INFORMATIONAL USE ONLY) Gas See Rx Instructions .ROUTE Rx Instructions: 2L at rest can increase with exertion Referrals / Follow Up: darnell mosqueda [Other] (pt to go for ct scan at at 130pm needs to be on clear liquid diet 3 hrs prior to test then go to vascular follow up appointment at 2:20 pm ) Sarah Lanier MD [Primary Care Provider] - Within 1 Week (Transition Care Management appointment.) Jyothi Lowery NP, SECONDARY EDUCATION PROFESSOR-C [Med Staff - Adv Practice Prof] - 11/23/24 2:15 pm Disposition Disposition (needs filled in before D/C Order can be placed): Home Health Service
[2024-11-12] MEDS: Albuterol IH (6.7 GM) 1 PUFF INHALER 2 PUFF INHALATION (21:26)
--- NOTE | 2024-11-12 22:42 | CPS ---
[2238] Pt. politely refused use of BiPAP tonight. Pt. resting comfortably on 4L NC.
[2024-11-13] MEDS: Budesonide Respules 0.5 MG/2 ML AMPUL.NEB. INHALATION ×2 (07:40→19:06)
[2024-11-13 11:07] VITALS: BP 105/75; PULSE 69; RESP 17; TEMP 36.3; O2SAT 99
[2024-11-13] MEDS: Potassium Chloride Oral Tablet 20 MEQ PO (11:09)
[2024-11-13 11:12] VITALS: BP 105/75; PULSE 69
[2024-11-13] MEDS: Metoprolol(XL)Succ 50 MG Tablet PO (11:12)
[2024-11-13 13:30] VITALS: PULSE 65; RESP 16; O2SAT 97
--- NOTE | 2024-11-13 13:30 | CPS ---
Patient ready to eat lunch, vest therapy not done.
[2024-11-13 19:06] VITALS: PULSE 85; RESP 22
[2024-11-13 21:26] VITALS: PULSE 71; RESP 18; O2SAT 97
--- NOTE | 2024-11-14 00:22 | NURSING ---
Respiratory therapy approached this nurse reporting moderate amount of blood noted on pt's sheets. Upon assessment, skin tear to R elbow measuring 0.2 cm x 1 cm noted. Skin tear is bleeding. Covered skin tear with gauze. Educated pt to alert staff if gauze becomes saturated with blood. Bed linens changed. Reported incident to pt's primary nurse. Repositioned pt for comfort. Bed pad alarms on and functioning. Pt denies needs for further assistance at this time. Call light within reach.
[2024-11-14] MEDS: Budesonide Respules 0.5 MG/2 ML AMPUL.NEB. INHALATION ×2 (07:30→19:00)
[2024-11-14 10:00] VITALS: PULSE 72; RESP 17; O2SAT 98
[2024-11-14] MEDS: Potassium Chloride Oral Tablet 20 MEQ PO (11:57)
[2024-11-14 12:02] VITALS: BP 105/62; PULSE 72
[2024-11-14] MEDS: Metoprolol(XL)Succ 50 MG Tablet PO (12:02)
[2024-11-14 12:13] VITALS: BP 105/62; PULSE 72; RESP 17; TEMP 36.7; O2SAT 98
[2024-11-14 12:45] VITALS: PULSE 73; RESP 16; O2SAT 95
[2024-11-14 19:00] VITALS: PULSE 74; RESP 22
[2024-11-15] VITALS (8 sets, daily range): BP systolic 136; BP diastolic 79; PULSE 69–92; RESP 16–20; TEMP 36.6; O2SAT 84–99
--- NOTE | 2024-11-15 03:52 | CPS ---
Patient stated he did not want to wear his Bipap tonight
[2024-11-15] MEDS: Budesonide Respules 0.5 MG/2 ML AMPUL.NEB. INHALATION ×2 (06:30→19:05)
[2024-11-15] MEDS: Potassium Chloride Oral Tablet 20 MEQ PO (09:48)
[2024-11-15] MEDS: Metoprolol(XL)Succ 50 MG Tablet PO (09:51)
[2024-11-15] MEDS: Senna/Docusate Sodium 1 Tablet 2 TABLET PO (09:54)
--- NOTE | 2024-11-15 15:06 | CASEMGMT ---
Discharge Planning HH referral sent to [facility], [facility], and [facility]. Jessie Duran DC Planning Asst.
--- NOTE | 2024-11-15 15:29 | CASEMGMT ---
[facility] - PORTER phoned dtr to notify of AOC. PORTER educated HHC agency will contact pt for SOC date date, but typically 2-3 days after DC, pending PCP signing orders. PORTER inquired about palliative care agency. Dtr requested additional explanation. SW provided. Dtr agreed and selected [facility] as AOC. Answered dtr's additional questions. No other needs noted. - PORTER sent email referral to palliative. Margaret Marcial MSW ATTENDANCE OFFICER
[2024-11-16] VITALS (8 sets, daily range): BP systolic 111; BP diastolic 68; PULSE 69–88; RESP 16–24; TEMP 36.8; O2SAT 91–96; BMI 21.8
[2024-11-16] MEDS: Budesonide Respules 0.5 MG/2 ML AMPUL.NEB. INHALATION ×2 (06:50→19:21)
--- NOTE | 2024-11-16 07:06 | CPS ---
Patient refused vest at this time.
[2024-11-16] MEDS: Potassium Chloride Oral Tablet 20 MEQ PO (09:39)
[2024-11-16] MEDS: Metoprolol(XL)Succ 50 MG Tablet PO (09:42)
[2024-11-16] MEDS: Senna/Docusate Sodium 1 Tablet 2 TABLET PO (09:44)
--- NOTE | 2024-11-16 14:13 | NURSING ---
PT DAUGHTER WANTS ON 11/23/24 TO BE CLOSER IN TIME DUE TO TRAVEL AND PT ON OXYGEN AND ASKED TO HAVE TIME CHANGED. THIS NURSE CALLED OFFICE AND GOT VOICE MAIL,LEFT MESSAGE FOR THEM TO CALL TCU.
--- NOTE | 2024-11-16 15:58 | NURSING ---
OFFICE CALLED BACK AND STATED THAT HE IS ONLY IN IN THE MORNINGS AND COULD NOT MAKE HIS APPOINTMENT TIME ANY LATER. WILL UPDATE FAMILY AND PT.
--- NOTE | 2024-11-16 19:38 | NURSING ---
WHILE DOING PT ASSESSMENT THIS NURSE FOUND PT HAD A BRUISE ON HIS RT FOOT. ASKED PT WHAT HAPPENED PT STATED ON HIS GERMAN HE HIT HIS FOOT ON HIS TRUCK. RN AWARE
[2024-11-17] VITALS (7 sets, daily range): BP systolic 102; BP diastolic 66; PULSE 68–85; RESP 16–20; TEMP 36.8; O2SAT 95–98
[2024-11-17] MEDS: Budesonide Respules 0.5 MG/2 ML AMPUL.NEB. INHALATION ×2 (06:45→19:10)
[2024-11-17] MEDS: Potassium Chloride Oral Tablet 20 MEQ PO (08:46)
[2024-11-17] MEDS: Metoprolol(XL)Succ 50 MG Tablet PO (08:47)
[2024-11-17] MEDS: Senna/Docusate Sodium 1 Tablet 2 TABLET PO ×2 (08:52→20:07)
--- NOTE | 2024-11-17 09:31 | CPS ---
patient chose not to do vest
[2024-11-17] MEDS: Albuterol IH (6.7 GM) 1 PUFF INHALER 2 PUFF INHALATION (12:45)
--- NOTE | 2024-11-17 20:24 | CPS ---
Patient refused vest treatment at this time
[2024-11-18 06:50] VITALS: PULSE 75; RESP 20; O2SAT 96
[2024-11-18] MEDS: Budesonide Respules 0.5 MG/2 ML AMPUL.NEB. INHALATION (06:50)
[2024-11-18 07:55] LABS: Hematocrit 36.1 % (40-54); Hemoglobin 11.5 g/dL (13.0-16.5); Immature Granulocytes Count 0.050 X10^3/uL (0.0-0.0); Mean Corp Hgb Conc 31.9 g/dL (32-36); Mean Corpuscular Volume 93.5 fL (80-94); Mean Platelet Vol. 8.6 fl (6.2-12.0); NRBC Flagged by Analyzer 0 % (0-5); Platelet Count 275 K/mm3 (150-450); RBC Distribution Width CV 16.2 % (11.6-14.6); RBC Distribution Width SD 55.7 fl (35.1-43.9); Red Blood Count 3.86 M/mm3 (4.6-6.2); White Blood Count 5.9 K/mm3 (4.4-11.0)
[2024-11-18] MEDS: Potassium Chloride Oral Tablet 20 MEQ PO (07:58)
[2024-11-18 08:00] VITALS: PULSE 92
[2024-11-18] MEDS: Metoprolol(XL)Succ 50 MG Tablet PO (08:00)
[2024-11-18 08:42] LABS: Anion Gap 9 (5-15); BUN 18 mg/dL (4-19); BUN/Creat Ratio 17.3 RATIO (10-20); Calcium,Total 8.6 mg/dL (7.6-11.0); Carbon Dioxide 27.4 mmol/L (21.0-32.0); Chloride 107 mmol/L (98-108); Estimated Creatinine Clearance 64.79 ml/min (50-250); Glucose 93 mg/dL (70-99); Potassium 4.2 mmol/L (3.3-5.1)
--- NOTE | 2024-11-18 11:58 | CASEMGMT ---
Social Work SW completed BIMS () and PHQ-2 () for MDS assessment. Margaret Marcial STEAM SETTER SALES OFFICE COORDINATOR
[2024-11-18 12:12] VITALS: PULSE 79; RESP 18
[2024-11-18 15:48] VITALS: BP 99/62; PULSE 71; RESP 18; TEMP 37; O2SAT 99
== END 2024-11-18 15:52 | disposition home health service (06) | DRG 949 ==
PROVIDERS: Admitting Provider Family Medicine Geriatric Medicine; PCP Internal Medicine; Visit Provider Family Medicine Geriatric Medicine
DX: Z48.812 Encounter for surgical aftercare following surgery on the circulatory system (principal); I71.33 Infrarenal abdominal aortic aneurysm, ruptured; J96.21 Acute and chronic respiratory failure with hypoxia; J18.9 Pneumonia, unspecified organism; E44.1 Mild protein-calorie malnutrition; I82.401 Acute embolism and thrombosis of unspecified deep veins of right lower extremity; J44.0 Chronic obstructive pulmonary disease with (acute) lower respiratory infection; I50.32 Chronic diastolic (congestive) heart failure; K56.7 Ileus, unspecified; J44.1 Chronic obstructive pulmonary disease with (acute) exacerbation; D75.829 Heparin-induced thrombocytopenia, unspecified; I11.0 Hypertensive heart disease with heart failure; E03.9 Hypothyroidism, unspecified; F32.9 Major depressive disorder, single episode, unspecified; I35.0 Nonrheumatic aortic (valve) stenosis; D50.9 Iron deficiency anemia, unspecified; I48.0 Paroxysmal atrial fibrillation; J44.89 Other specified chronic obstructive pulmonary disease; I25.10 Atherosclerotic heart disease of native coronary artery without angina pectoris; K21.9 Gastro-esophageal reflux disease without esophagitis; E78.5 Hyperlipidemia, unspecified; E87.6 Hypokalemia; I95.9 Hypotension, unspecified; Z87.891 Personal history of nicotine dependence; N40.1 Benign prostatic hyperplasia with lower urinary tract symptoms; R33.8 Other retention of urine; Z79.899 Other long term (current) drug therapy; Z79.01 Long term (current) use of anticoagulants; Z79.02 Long term (current) use of antithrombotics/antiplatelets; Z79.890 Hormone replacement therapy; Z68.21 Body mass index [BMI] 21.0-21.9, adult
CPT/HCPCS: 36415; 71046; 74018; 80048; 80053; 82274; 82962; 83540; 83550; 83735; 83880; 84100; 85014; 85018; 85025; 87633; 87811; 92507; 92523; 92526; 92610; 94003; 94640; 94660; 94668; 97110; 97116; 97129; 97162; 97166; 97530; 97535; A4216

== ENCOUNTER → 2024-10-14 | Outpatient (CLI) | payer MEDICARE, OTHER, SELFPAY ==
--- NOTE | 2024-10-14 08:15 | CT_ITS ---
PROCEDURE: CTA CHST, ABD, PEL W AND/OR WO 10/14/2024 REASON FOR EXAM: AAA RUPTURE, ABD DISTENSION, HYPOXIA TECHNIQUE: CTA CHST, ABD, PEL W AND/OR WO coronal and Sagittal reconstruction series were provided. One or more dose reduction techniques were used (e.g., Automated exposure control, adjustment of the mA and/or kV according to patient size, use of iterative reconstruction technique. CONTRAST: Isovue 370 VOLUME: 100 mL RADIATION DOSE SUMMARY: CTDlvol: 13.5 mGy DLP: 1084.25 mGycm COMPARISON: Prior study dated March 31, 2024. FINDINGS: CHEST: Lines and tubes: None Mediastinum: Unremarkable Heart: Coronary artery calcification. Thoracic Aorta: The ascending thoracic aorta as a transverse dimension of 39.5 mm. This measures upper limits of normal. No evidence of pericardial effusion. Lungs and Airways: Hyperinflation. Emphysematous changes. Chronic scarring with bronchiectasis in the right lower lobe. Pleura: Small left pleural effusion with left basilar atelectasis. Bones: Degenerative changes of the spine. ABDOMEN AND PELVIS: Liver: Diffuse fatty infiltration. Gallbladder: Gallbladder is unremarkable. Spleen: Normal size. Pancreas: Normal size without evidence of mass surrounding inflammation or ductal dilation. Adrenals: The adrenal glands are unremarkable. Kidneys: Normal renal sizes. No hydronephrosis. Bladder: Diffuse bladder wall thickening. There is evidence of trabeculation of the bladder wall as well as right-sided diverticula. Prostatic enlargement. Bowel: Colonic diverticulosis without diverticulitis. Vasculature: There is evidence of an infrarenal abdominal aortic aneurysm. There is evidence of prior endoluminal stent grafting. The [place] abdominal aorta measures 7.5 cm in transverse dimension. There is evidence of a large left retroperitoneal hematoma. Rupture of the aortic aneurysm is highly suspected. The endoluminal stent graft is patent. No evidence of endoluminal leak at this time. Bones: Degenerative changes of the spine. Right inguinal hernia containing fat. CT/CTA Chst, Abd, Pel W and/or WO IMPRESSION: Findings suggestive of ruptured infrarenal abdominal aortic aneurysm with a lar ge left retroperitoneal hematoma. Findings as discussed above. Reading Location: [facility]
== END | disposition home or self-care (01) ==
LOC: CT 08:15
PROVIDERS: PCP Internal Medicine; Referring Provider Family Medicine Geriatric Medicine; Visit Provider Family Medicine Geriatric Medicine
DX: I71.30 Abdominal aortic aneurysm, ruptured, unspecified (principal); R09.02 Hypoxemia; R14.0 Abdominal distension (gaseous); R06.02 Shortness of breath
CPT/HCPCS: 71275; 74174; Q9967; A4216

== ENCOUNTER 2024-10-17 19:18 | Emergency (ER) | payer MEDICARE, OTHER, SELFPAY ==
[2024-10-17 19:20] VITALS: BP 125/75; PULSE 71; RESP 16; TEMP 36.7; O2SAT 100
--- NOTE | 2024-10-17 20:32 | CT_ITS ---
PROCEDURE: CT ABDOMEN/PELVIS W IV CONT ONLY 10/17/2024 REASON FOR EXAM: ABDOMINAL PAIN TECHNIQUE: CT ABDOMEN/PELVIS W IV CONT ONLY Coronal and Sagittal reconstruction series were provided. CONTRAST: Isovue 370 VOLUME: 89 mL One or more dose reduction techniques were used (e.g., Automated exposure control, adjustment of the mA and/or kV according to patient size, use of iterative reconstruction technique. RADIATION DOSE SUMMARY: DLP: 1284.5 mGycm COMPARISON: CTA abdomen/pelvis 10/14/2024. FINDINGS: Since 10/14/2024, no significant interval change in the findings of a ruptured infrarenal abdominal aortic aneurysm with a large heterogeneous hematoma collection in the left lower abdominal quadrant/retroperitoneum. Somewhat heterogeneous blood products within the ruptured aneurysm sac and hematoma collection, but no evidence for active arterial contrast extravasation. Prior endovascular stent graft repair which traverses the ruptured aneurysm sac without evidence for active leakage. Patchy areas of dense consolidation in the imaged right posterior lung base likely reflecting pneumonia, similar to prior exam as visualized. Trace bibasilar pleural effusions. Hepatic steatosis. Unremarkable gallbladder. No biliary ductal dilatation. Normal sized spleen. Unremarkable pancreas. Normal adrenal glands. Kidneys are normal in size with symmetric enhancement. No hydronephrosis. Multifocal cortical scarring and/or tiny simple appearing renal cysts. Urinary bladder is irregularly thickened with innumerable bladder wall diverticuli suggestive of chronic infection or neurogenic bladder. Prostate is mildly enlarged and heterogeneous. No evidence of bowel obstruction. Appendix is not definitively identified but there are no pericecal inflammatory changes appreciated. Distal colonic diverticulosis. Wall thickening versus underdistention of the distal rectosigmoid colon may represent colitis. No enlarged abdominopelvic lymph nodes appreciated. No pneumoperitoneum. No acute or aggressive osseous abnormality. Multilevel degenerative changes of the spine. Qualitative osteopenia. Mild generalized subcutaneous edema along the flanks. CT/Abdomen/Pelvis W IV Cont ONLY IMPRESSION: 1. Since 10/14/2024, no significant change in the ruptured infrarenal abdominal aortic aneurysm sac previously repaired with endovascular stent graft, with large left lower quadrant/retroperitoneal hemato ma collection. No evidence for active arterial contrast extravasation. Recommend vascular surgery consult if not already obtai zackary. 2. Patchy airspace consolidation in the right lung base, may represent pneumoni a. Trace bibasilar pleural effusions. 3. Wall thickening versus underdistention of the rectosigmoid colon may represe nt colitis. 4. Marked irregular bladder wall thickening with numerous diverticuli, likely s equelae of either chronic infection or neurogenic bladder. Reading Location: [id number]
--- NOTE | 2024-10-17 20:32 | EDS_ITS ---
HPI HPI - GI History of Present Illness Chief Complaint: Constipation Informant: patient and family Abdominal Pain/Flank Pain Context: Gradual Onset Timing: Continuous Location: Diffuse Worsened by: Nothing Relieved by: Nothing Nausea/Vomiting/Emesis GI Symptom: Negative for Nausea or Vomiting Diarrhea/Melena/Hematochezia GI Symptom: Negative for Diarrhea, Melena or Hematochezia Associated Symptoms Associated Symptoms: Negative for Dysuria, Frequency or Hematuria Narrative Narrative: Patient presents with possible ileus versus bowel obstruction that has been getting progressively worse. Patient had recent abdominal aortic aneurysm repair at [facility]. Patient had a ruptured abdominal aortic aneurysm that was repaired with an endovascular graft. Patient was then transferred to the TCU here at [place] for rehab. Family states the patient has been constipated. Family states patient has been able to have bowel movements with laxatives. Family states that patient's bowel movements have been watery. Patient denies any melena or hematochezia. Patient denies any fevers or chills. PFSH PFS Medical History Cellulitis of right lower extremity Carotid artery disease Cerebrovascular disease Stroke BPH (benign prostatic hyperplasia) Snuff user Former smoker History of PTCA 1 History of non-ST elevation myocardial infarction (NSTEMI) Coronary artery disease Mild aortic stenosis Paroxysmal atrial fibrillation Debility Left ventricular hypertrophy COPD (chronic obstructive pulmonary disease) Chronic anticoagulation Hyperlipidemia Hypertension Home Medications ?Medication ?Instructions ?Recorded ?Last Taken ?Type multivitamin 1 each PO DAILY vitamin 06/01 03/23 Unknown History acetaminophen 325 mg tablet 650 mg (2 x 325 mg) PO Q6H PRN PRN 06/22/20 Unknown Rx PAIN 1-10 nitroglycerin 0.4 mg sublingual 0.4 mg sublingual Q5M PRN chest 06/22/20 Unknown Rx tablet pain #1 BOTTLE PEP device #1 ea 02/16/21 Unknown Rx benzonatate 100 mg capsule 100 mg PO Q8H PRN 05/22/21 Unknown History spironolactone 25 mg tablet 12.5 mg PO DAILY blood pre ssure 04/14/23 Unknown History amlodipine 5 mg tablet 5 mg PO DAILY blood pressure #90 01/20/24 Unknown Rx tabs atorvastatin 80 mg tablet 80 mg PO QHS cholesterol #90 tabs 01/20/24 Unknown Rx clopidogrel 75 mg tablet 75 mg PO DAILY blood thinner #90 01/20/24 Unknown Rx tabs furosemide 20 mg tablet 10 mg (1/2 x 20 mg) PO Q OTH ER DAY 01/20/24 Unknown Rx hypertension #60 tabs levothyroxine 75 mcg tablet 75 mcg PO DAILY thyroid #9 0 tabs 01/20/24 Unknown Rx losartan 100 mg tablet 100 mg PO DAILY #90 tabs Unknown Rx magnesium chloride 71.5 mg 71.5 mg PO BID #180 tabs Unknown Rx (magnesium chloride) tablet,delayed release rivaroxaban 20 mg tablet 20 mg PO DAILY DVT prophylax is #90 01/20/24 Unknown Rx tabs sertraline 100 mg tablet (Zoloft) 100 mg PO DAILY depr ession #90 tabs 01/20/24 Unknown Rx montelukast 10 mg tablet 10 mg PO QPM asthma #90 tabs 03/16/24 Unknown Rx albuterol sulfate 90 mcg/actuation 2 inh inhalation Q4 H PRN PRN 05/24/24 Unknown Rx aerosol inhaler Wheezing #8.5 grams omalizumab 300 mg/2 mL 300 mg (2 mL) subcut Q4W #2 mL 07/14/24 Unknown Rx subcutaneous auto-injector (Xolair) budesonide 1 mg/2 mL suspension 1 mg (2 mL) inhalation BID COPD 08/11/24 Unknown Rx for nebulization #60 mL bisacodyl 5 mg tablet,delayed 10 mg PO DAILY PRN const ipation 10/13/24 Unknown History release (Dulcolax (bisacodyl)) clopidogrel 75 mg tablet (Plavix) 75 mg PO DAILY blood thinner 10/13/24 Unknown History ipratropium 0.5 mg-albuterol 3 mg 3 ml inhalation Q6H PRN wheezing 10/13/24 Unknown History (2.5 mg base)/3 mL nebulization soln metoprolol succinate 50 mg 50 mg PO DAILY blood pressu re 10/13/24 Unknown History tablet,extended release 24 hr pantoprazole 40 mg tablet,delayed 40 mg PO DAILY stoma ch acid 10/13/24 Unknown History release potassium chloride 20 mEq 20 meq PO DAILY supplement 0 10/13/24 Unknown History tablet,extended release(part/cryst) prednisone 10 mg tablet 5 mg PO DAILY COPD 10/13/24 Unknown History tamsulosin 0.4 mg capsule (Flomax) 0.4 mg PO DAILY pro state 10/13/24 Unknown History Allergy/AdvReac Type Severity Reaction Status Date / Time Seasonal Allergies: Uncoded Allergy Congestion Verified 07/14/24 14:56 heparin AdvReac Unknown PT UNSURE Verified 10/17/24 19:29 OF REACTION codeine AdvReac NEEDS Verified 07/14/24 14:56 FOLLOW-UP Family History Other Heart disease Hypertension Surgical History S/P AAA repair History of sinus surgery History of heart artery stent Social History household members: none Smoking Status: Former smoker quit date: 03/03/05 pack-years: 30 Tobacco: How many years used: 20 alcohol intake: former substance use type: does not use what type of physical activity do you participate in: none ROS ROS ED Constitutional Constitutional ED: Denies chills or fever(s) Eyes Eyes: Denies blurry vision or change in vision ENT ENT ED: Denies rhinorrhea or sore throat Cardiovascular Cardiovascular: Denies chest pain or palpitations Respiratory/Chest Respiratory/Chest: Reports dyspnea; Denies cough Gastrointestinal Gastrointestinal: Denies nausea or vomiting Genitourinary Genitourinary ED: Denies dysuria or hematuria Musculoskeletal Musculoskeletal: Reports back pain; Denies neck pain Integumentary Denies abscess or rash Neurologic Neurologic: Denies headache(s) or weakness Allergic/Immunologic Allergic/Immunologic ED: Denies mouth swelling or urticaria EXAM Physical Exam Const Vital Signs: 10/17/24 19:20 10/17/24 21:20 Temperature 98.1 F Temperature Source Oral Pulse Rate 71 72 Respiratory Rate 16 16 Blood Pressure 125/75 H 120/68 Blood Pressure Mean 91 85 Pulse Ox 100 97 Oxygen Delivery Method Nasal Cannula Oxygen Flow Rate (L/min) 2 Positive well nourished and well developed General Appearance ED: well developed and NAD HEENT Reports moist mucous membranes Neck supple and no JVD Resp normal respiratory effort and clear to auscultation bilaterally Cardio regular rate Rhythm: abnormal rhythm irregularly irregular GI Palpation: soft and tender epigastric, LLQ, RLQ, LUQ, RUQ, periumbilical and suprapubic; Negative for guarding or rebound tenderness present Neuro CN's II-XII intact bilaterally, moves all extremities and no sensory deficits noted Sensorium / Orientation: alert Motor Exam: strength 5/5 throughout Psych mental status grossly normal and thought process normal Skin no wounds Skin Narrative: Ankle incisions are healing well. There is no erythema or warmth. There is no signs of any infection. MDM MDM MDM Narrative Medical decision making narrative: Differential diagnosis includes bowel obstruction, perforation, ileus, pneumonia, urinary tract infection, sepsis, colitis, and electrolyte abnormality. CT scan of the abdomen pelvis will be obtained to assess for bowel obstruction, perforation, and ileus. CBC will be obtained to assess for leukocytosis and anemia. Comprehensive metabolic profile will be obtained to assess for hepatic function, renal function, and electrolyte abnormality. Lipase will be obtained to assess for pancreatitis. Serum lactate will be obtained to assess for sepsis. Urinalysis will be obtained to assess for urinary tract infection and hematuria. History & Record Review Additional record(s) reviewed:: Prior outpatient record and Prior labs Lab Data Attestation: I reviewed the patient's lab results. Lab results narrative: CBC was reviewed. There is a mild anemia with a hemoglobin of 9.8 and hematocrit 31.7. This is consistent with previous results. Comprehensive metabolic profile was reviewed and was within normal limits. Serum lactate was reviewed and was less than 1.0. Lipase was reviewed and was slightly elevated at 182. Urinalysis was reviewed. Leukocyte esterase was 500. There are 50-100 white blood cells. There is 3+ bacteria. Labs: Laboratory Results - last 24 hr 10/17/24 10/17/24 20:45 21:25 WBC 8.1 RBC 3.41 L Hgb 9.8 L Hct 31.7 L MCV 93.0 MCH 28.7 MCHC 30.9 L RDW Std Deviation 55.7 H RDW Coeff of Leyda 16.4 H Plt Count 320 MPV 8.7 Immature Gran % (Auto) 0.900 Neut % (Auto) 83.5 H Lymph % (Auto) 7.7 L Boundary % (Auto) 6.6 Eos % (Auto) 1.2 Baso % (Auto) 0.1 Absolute Neuts (auto) 6.8 Absolute Lymphs (auto) 0.62 L Nucleated RBC % 0 Sodium 139 Potassium 4.0 Chloride 107 Carbon Dioxide 21.7 Anion Gap 11 BUN 20 H Creatinine 0.94 Estim Creat Clear Calc 76.74 Est GFR (MDRD) Non-Af 84 BUN/Creatinine Ratio 21.3 H Glucose 91 Lactic Acid < 1.0 Calcium 8.6 Total Bilirubin 1.27 AST 82 H ALT 63 H Alkaline Phosphatase 85 Total Protein 5.7 L Albumin 3.0 L Globulin 2.7 Albumin/Globulin Ratio 1.1 Lipase 182 H Urine Color Yellow Urine Clarity Cloudy Urine pH 6.0 Ur Specific [place] 1.020 Urine Protein 30 H Urine Glucose (UA) Normal Urine Ketones Negative Urine Occult Blood 150 H Urine Nitrite Negative Urine Bilirubin Negative Urine Urobilinogen Normal Ur Leukocyte Esterase 500 H Urine RBC 10-25 SEEN Urine WBC 50-100 SEEN Ur Squamous Epith Cells 0-5 SEEN Ur Renal Epithelial Cell 0-5 SEEN Amorphous Sediment 1+ Urine Bacteria 3+ Urine Mucus 0 SEEN Radiography Diagnostic Testing: Clinical Impression(s) from Imaging Studies Abdomen/Pelvis CT 10/17/24 20:32 IMPRESSION: 1. Since 10/14/2024, no significant change in the ruptured infrarenal abdominal aortic aneurysm sac previously repaired with endovascular stent graft, with large left lower quadrant/retroperitoneal hematoma collection. No evidence for active arterial contrast extravasation. Recommend vascular surgery consult if not already obtained. 2. Patchy airspace consolidation in the right lung base, may represent pneumonia. Trace bibasilar pleural effusions. 3. Wall thickening versus underdistention of the rectosigmoid colon may represent colitis. 4. Marked irregular bladder wall thickening with numerous diverticuli, likely sequelae of either chronic infection or neurogenic bladder. Reading Location: [facility] CT scan of the abdomen and pelvis was obtained. There is no significant change in the ruptured infrarenal abdominal aortic aneurysm that was repaired with endovascular graft, with large left lower quadrant/retroperitoneal hematoma. There is no evidence for active arterial extravasation. There is patchy airspace consolidation in the right lung base. There are trace bilateral pleural effusions. There is wall thickening versus underdistention of the rectosigmoid colon which may represent colitis. There is bladder wall thickening with numerous diverticuli. This was interpreted by the radiologist was also independently reviewed by myself. Treatment and Re-Evaluation :: Patient was given IV fluids. Patient was advised of his findings. Patient is currently on Zosyn for pneumonia. Patient was given a dose of vancomycin here. Urine culture was ordered. Patient was instructed to follow-up with his primary care physician in 3 to 5 days. Patient was instructed to return if worse in any way. Patient understood and was agreeable with the plan. All questions were answered. Discharge Plan Triage Chief Complaint: Constipation ED Provider: Poncho Lira Dx/Rx/DC Orders Clinical Impression: Abdominal pain, Urinary tract infection Prescriptions: No Action (DME) PEP device See Rx Instructions .ROUTE .MEDSUPPLY Qty: 1 0RF Rx Instructions: with training benzonatate 100 mg capsule 100 mg PO Q8H PRN Patient Comments: TAKE 1 TO 2 CAPSULES BY MOUTH EVERY 8 HOURS NEEDED for cough spironolactone 25 mg tablet 12.5 mg PO DAILY montelukast 10 mg tablet 10 mg PO QPM Qty: 90 3RF Xolair 300 mg/2 mL auto-injector 300 mg subcut Q4W Qty: 2 11RF multivitamin 1 EACH tablet 1 each PO DAILY acetaminophen 325 MG tablet 650 mg PO Q6H PRN PRN (Reason: PAIN 1-10) 0RF nitroglycerin 0.4 MG tablet, sublingual 0.4 mg SL Q5M PRN (Reason: chest pain) Qty: 1 0RF tamsulosin [Flomax] 0.4 mg capsule 0.4 mg PO DAILY bisacodyl [Dulcolax (bisacodyl)] 5 mg tablet,delayed release (DR/EC) 10 mg PO DAILY PRN pantoprazole 40 mg tablet,delayed release (DR/EC) 40 mg PO DAILY clopidogrel [Plavix] 75 mg tablet 75 mg PO DAILY prednisone 10 mg tablet 5 mg PO DAILY ipratropium-albuterol 0.5 mg-3 mg(2.5 mg base)/3 mL solution for nebulization 3 ml inhalation Q6H PRN metoprolol succinate 50 mg tablet extended release 24 hr 50 mg PO DAILY potassium chloride 20 mEq tablet,ER particles/crystals 20 meq PO DAILY Rx Instructions: TAKE 1 TABLET BY MOUTH ONCE DAILY WITH a meal. amlodipine 5 mg tablet 5 mg PO DAILY Qty: 90 3RF atorvastatin 80 mg tablet 80 mg PO QHS Qty: 90 3RF clopidogrel 75 mg tablet 75 mg PO DAILY Qty: 90 3RF furosemide 20 mg tablet 10 mg PO Q OTHER DAY Qty: 60 1RF levothyroxine 75 mcg tablet 75 mcg PO DAILY Qty: 90 3RF losartan 100 mg tablet 100 mg PO DAILY Qty: 90 3RF magnesium chloride 71.5 mg tablet,delayed release (DR/EC) 71.5 mg PO BID Qty: 180 1RF rivaroxaban 20 mg tablet 20 mg PO DAILY Qty: 90 3RF Rx Instructions: must administer with evening meal sertraline [Zoloft] 100 mg tablet 100 mg PO DAILY Qty: 90 3RF albuterol sulfate 90 mcg/actuation HFA aerosol inhaler 2 inh INHALATION Q4H PRN PRN (Reason: Wheezing) Qty: 8.5 6RF budesonide 1 mg/2 mL suspension for nebulization 1 mg inhalation BID Qty: 60 6RF Primary Care Provider: Sarah Lanier Referrals: Sarah Lanier MD [Primary Care Provider] - 3-5 Days Norris Olmedo Chi, MD [Med Staff - Active Staff] - 3-5 Days Print Language: Albanian Disposition Disposition: [facility] Facility Discharge Location: [facility] Transitional Care Unit
[2024-10-17 20:39] VITALS: BMI 24.7
--- OUTSIDE RECORDS SUMMARY | 2024-10-17 20:42 | XMS RPT_ITS | CCD ---
Author Organization [facility] CliniSymi Care Team Providers Care Biomass Plant Manager Name Role Phone AIDANMELQUIADES Huang Ava Unavailable Unavailable Surso, Azul Unavailable Unavailable Surso, Azul Unavailable Unavailable Newbill, Sarabjit Jay Admitting Unavailable Newbill, Sarabjit Jay Attending Unavailable Surso, Alejo Primary Care Unavailable Newbill, Sarabjit Jay Admitting Unavailable Newbill, Sarabjit Jay Attending Unavailable Surso, Alejo Primary Care Unavailable Newbill, Sarabjit Jay Admitting Unavailable Newbill, Sarabjit Jay Attending Unavailable Surso, Alejo Primary Care Unavailable Newbill, Sarabjit Jay Admitting Unavailable Newbill, Sarabjit Jay Attending Unavailable Surso, Alejo Primary Care Unavailable Newbill, Sarabjit Jay Admitting Unavailable Newbill, Sarabjit Jay Attending Unavailable Surso, Alejo Primary Care Unavailable Newbill, Sarabjit Jay Admitting Unavailable Newbill, Sarabjit Jay Attending Unavailable Surso, Alejo Primary Care Unavailable Surso, Alejo Unavailable Rivera, Viktoria Unavailable Unavailable Dr. Ashlee Lanier Primary Care Provider Dr. Oskar Ocampo Attending Provider [phone] Dr. Oskar Ocampo Referring Provider Dr. Ashlee Lanier Referring Provider Sebastián COLLECTIONS MANAGER, COLLECTIONS MANAGER-C Jyothi Attending Provider Dr. Ashlee Lanier Primary Care Provider Dr. Ashlee Lanier Referring Provider Sebastián COLLECTIONS MANAGER, COLLECTIONS MANAGER-C Jyothi Attending Provider [phone] Surso, Alejo Primary Care Provider [phone] SURSO, ALEJO Primary Care Unavailable SLEIK, NUBIALEANA ROXANNANURIA Attending Unavailable RENEE NBUIALEANA DACOSTA Admitting Unavailable Azlu Chapman MD Primary Care Provider Yolande SALINAS, Ashlee Preciado [facility] Care Provider Dr. Ashlee Lanier Primary Care Provider Dr. Ashlee Lanier Attending Provider [phone] Dr. Ashlee Lanier Referring Provider Sebastián COLLECTIONS MANAGER, COLLECTIONS MANAGER-C Jyothi Attending Provider Ashlee Lanier MD Primary Care Provider Oskar Ocampo MD Unavailable IDANIA FRAIRE Attending Unavailab ASHLEE Elise Primary Care Unavailable IDANIA FRAIRE Referring Unavailab ASHLEE Elise Primary Care Unavailable IDANIA FRAIRE Referring Unavailab IDANIA Ferreira Attending Unavailab ASHLEE Elise Primary Care Unavailable Ashlee Lanier MD [facility] Care Provider ASHLEE LANIER Primary Care Unavailable IDANIA FRAIRE Attending Unavailab ASHLEE Elise Primary Care Unavailable IDANIA FRAIRE Referring Unavailab Dr. Ashlee Elise MD Primary Care Provider Dr. Ashlee Lanier MD Referring Provider Sebastián ODEN-CJyothi Attending Provider Sebastián ODEN-CJyothi Referring Provider Dr. sAhlee Lanier MD Attending Provider ASHLEE LANIER Primary Care Unavaila MARCIO Dior Attending Unavailable ASHLEE LANIER Primary Care Unavaila ble QUINCY ABEBE Attending Unavailable ASHLEE LANIER Primary Care Unavaila ble VIKTORIA THACKER Attending Unavailable PEREZ, MRINALINI Admitting Unavailable PEREZ, MRINALINI Attending Unavailable MARCIO AHN Referring Unavailable ASHLEE LANIER Primary Care Unavaila Ashlee Gusman Attending Unavailable Yolande, Ashlee Primary Care Unavailable Yolande, Ashlee Referring Unavailable Honorio, Norris Chi Referring Unavailable Honorio, Norris Chi Attending Unavailable Yolande, Ashlee Primary Care Unavailable Yolande, Ashlee Primary Care Unavailable Yolande, Ashlee Referring Unavailable Sebastián COLLECTIONS MANAGER, Jyothi Attending Unavailable Yolande, Ashlee Primary Care Unavailable Yolande, Ashlee Referring Unavailable Sebastián COLLECTIONS MANAGER, Jyothi Attending Unavailable Yolande, Ashlee Referring Unavailable Yolande, Ashlee Primary Care Unavailable Sebastián COLLECTIONS MANAGER, Jyothi Attending Unavailable Yolande, Ashlee Attending Unavailable Yolande, Ashlee Primary Care Unavailable Honorio, Norris Chi Attending Unavailable Honorio, Norris Chi Admitting Unavailable Yolande, Ashlee Primary Care Unavailable Yolande, Ashlee Primary Care Unavailable Sebastián COLLECTIONS MANAGERJyothi Referring Unavailable Sebastián COLLECTIONS MANAGER, Jyothi Attending Unavailable Allergies Allergy Classification Reported Allergen(s) Allergy Type Date of Onset Reaction(s) Facility Opioid Agonists (1 source) Codeine Drug Allergy 8 [facility] (20 sources) Codeine; Translations: [codeine] Drug Allergy 5 Unknown, Other [facility] Repository (4 sources) Seasonal Allergies: Uncoded; Translations: [Seasonal Allergies: Uncoded] Allergy to substance 4 [facility] (1 source) heparin; Translations: [HEPARIN] Drug Allergy 5 [facility] Repository Medications Current Medications Medication Drug Class(es) Dates Sig (Normalized) Sig (Original) acetaminophen 325 mg oral tablet (5 sources) Start: 06-22-2020 take 2 tablets by mouth every six hours as needed for pain Acetaminophen 325 MG tablet Active 650 mg PO EVERY 6 HOURS NEEDED as needed for PAIN -June 22, 2020 12:00am Start: 06-22-2020 take 650 mg by mouth every six hours as needed Acetaminophen Active 650 MG PO EVERY 6 HOURS NEEDED June 21, 2020 11:00pm albuterol 0.83 mg/ml inhalation solution (20 sources) beta2-Adrenergic Agonist Start: 05-24-2022 End: 07-25-2023 albuterol 2.5 mg /3 mL (0.083 %) nebulizer solution USE 1 VIAL VIA NEBULIZER EVERY 4 HOURS NEEDED for SHORTNESS OF BREATH or FOR WHEEZING 02/14/2023 Active Start: 08-23-2021 End: 03-17-2023 Albuterol Sulfate Active 2 I NH INHALATION EVERY 4 HOURS NEEDED 8.5 March 17, 2023 8:50am Start: 03-17-2021 End: 08-03-2022 take 2 puff(s) by inhalation every four hours as needed for wheezing Albuterol (Eqv-ProAir HFA) 90 mcg/inh inhalation aerosol ; 2 puff(s) inhaled every 4 hours, As Needed for wheezing/shortness of breath Quantity: 1 Refills: 4 Ordered: 17-Mar-2021 Viktoria Thacker Start: 17-Mar-2021 End: 03-Aug-2022 Generic Substitution Allowed Comments: Source=Surescripts, Medication=albuterol sulfate HFA 90 mcg/actuation aerosol inhaler, OriginatingSource=[employer] #[id number], OriginatingProvider=Padma Recinos, Duration=17, Refills=4, Date Last Modified/Filled=21-May-2020 Start: 06-11-2020 End: 05-24-2024 Albuterol Sulfate 90 mcg/act uation HFA aerosol inhaler Discontinued 2 NMA INHALATION EVERY 4 HOURS NEEDED as needed for Wheezing 8.5 October 20, 2023 11:37am March 16, 2024 4:23pm Start: 06-11-2020 End: 08-23-2021 take 1 puff(s) by inhalation every four hours as needed Albuterol Sulfate Discontinued 2 PUFF INHALATION EVERY 4 HOURS NEEDED 1 July 11, 2020 3:28pm August 23, 2021 1:40pm Start: 08-18-2009 take 2 puff(s) by in halation every four hours as needed albuterol sulfate(VENTOLIN HFA 90 MCG/ACTUATION AEROSOL INHALER) 2 puffs every 4 hours as needed 0 08/18/2009 Active albuterol Quanti ty: 0 Refills: 0 Ordered: 07-Jan-2019 Ric Melanic Status: Discontinued Generic Substitution Allowed Comment on above: Source=Surescripts, Medication=albuterol sulfate HFA 90 mcg/actuation aerosol inhaler, OriginatingSource=[employer] #[id number], OriginatingProvider=Padma Recinos, Duration=17, Refills=4, Date Last Modified/Filled=21-May-2020 2 puffs every 4 hour s as needed albuterol 0.833 mg/ml / ipratropium bromide 0.167 mg/ml inhalation solution (20 sources) Anticholinergic, beta2-Adrenergic Agonist Start: 3 mL, nebulization, Once, On 09/26/24 at 2320, For 1 dose Start: 09-26-2024 Starting on Amaya n 09/26/24 at 2316, For 1 dose, Created by cabinet override Start: 04-16-2023 End: 05-31-2024 take 1 mL by inhalation every four hours as needed Ipratropium-Albuterol 0.5 mg-3 mg(2.5 mg base)/3 mL solution for nebulization Discontinued 3 mL INHALATION EVERY 4 HOURS NEEDED 180 October 13, 2023 10:12am March 16, 2024 4:23pm Start: 04-16-2023 take 1 mL by inhalat ion every four hours as needed Ipratropium-Albuterol Active 3 ML INHALATION EVERY 4 HOURS NEEDED 180 April 16, 2023 12:00am Start: 03-17-2023 ipratropium-al buteroL (Duo-Neb) nebulizer solution - [employer] Override Pull Start: 03-17-2023 End: 03-18-2023 ipratropium-albuteroL (Duo-N eb) 0.5-2.5 mg/3 mL nebulizer solution 3 mL Start: 03-10-2023 End: 03-09-2024 ipratropium-albuteroL (Duo-N eb) 0.5-2.5 mg/3 mL nebulizer solution Indications: Acute bronchitis, unspecified organism Take 3 mL by nebulization every 6 hours if needed for wheezing. 180 mL 03/10/2023 Active Start: 06-11-2020 End: 05-24-2022 take 1 mL by inhalation every four hours as needed for wheezing Ipratropium-Albuterol 0.5 mg-3 mg(2.5 mg base)/3 mL solution for nebulization Discontinued 3 mL INHALATION EVERY 4 HOURS as needed for Wheezing 180 August 23, 2021 2:40pm May 24, 2022 1:59pm Start: 06-11-2020 End: 05-24-2022 take 1 mL by inhalation every four hours Ipratropium-Albuterol Discontinued 3 ML INHALATION EVERY 4 HOURS 180 August 23, 2021 1:40pm May 24, 2022 12:59pm Comment on above: Inhale 3 mL as instr ucted every 4 hours as needed. amLODIPine 5 mg oral tablet (20 sources) Dihydropyridine Calcium Channel Carlos Start: 06-23-19 End: 01-20-20 amLODIPine (NORVASC) 5 mg tablet Take by mouth. 06/22/2020 Active Comment on above: Take by mouth. amoxicillin 875 mg / clavulanate 125 mg oral tablet (7 sources) Penicillin-class Antibacterial Start: 03-21-19 End: 04-04-19 take 1 tablet by mouth twice daily amoxicillin-pot clavulanate (Augmentin) 875-125 mg tablet Indications: Cellulitis of right lower extremity Take 1 tablet (875 mg) by mouth 2 times a day for 14 days. 28 tablet 0 03/21/2023 04/04/2023 Active Start: 12-20-2021 End: 02-28-2022 Amoxicillin-Pot Clavulanate 875-125 mg tablet Discontinued 1 {tbl} PO TWICE A DAY December 20, 2021 12:00am February 28, 2022 9:14am Start: 12-13-2019 End: 12-19-2019 take 1 tablet by mouth every twelve hours Augmentin 875 mg-125 mg oral tablet ; 1 tab(s) orally every 12 hours Quantity: 14 Refills: 0 Ordered: 13-Dec-2019 Allyson Lomax Start: 13-Dec-2019 End: 19-Dec-2019 Status: Other Generic Substitution Allowed Comments: Finish all this medication unless otherwise directed by prescriber.Take with food or milk. Start: 05-17-2019 End: 05-26-2019 take 1 tablet by mouth twice daily at mealtime amoxicillin-clavulanate 875 mg-125 mg oral tablet ; 875 milligram(s) orally 2 times a day Quantity: 20 Refills: 0 Ordered: 17-May-2019 Sarabjit Oliveira Start: 17-May-2019 End: 26-May-2019 Status: Discontinued Generic Substitution Allowed Comments: Finish all this medication unless otherwise directed by prescriber.Take with food or milk. Comment on above: Finish all this medi cation unless otherwise directed by prescriber.Take with food or milk. atorvastatin 80 mg oral tablet (20 sources) HMG-CoA Reductase Inhibitor Start: 06-12-19 take 1 tablet by mouth once daily at bedtime atorvastatin (LIPITOR) 80 mg tablet 1 tablet by ORAL/FEEDING TUBE route daily at bedtime. 06/11/2020 Active Start: 06-11-2020 End: 01-20-2024 atorvastatin (Lipitor) 80 mg tablet 03/10/2023 Active Comment on above: 1 tablet by ORAL/FEE DING TUBE route daily at bedtime. bacitracin 0.5 unt/mg topical ointment (1 source) Start: 4 bacitracin ointment benzonatate 100 mg oral capsule (6 sources) Non-narcotic Antitussive Start: 2 take 1 capsule by mouth every eight hours as needed Benzonatate 100 mg capsule Active 100 mg PO Q8H as needed May 22, 2021 12:00am Start: 03-17-2021 End: 03-26-2021 take 2 capsules by mouth every eight hours as needed benzonatate 100 mg oral capsule ; 1-2 cap(s) orally every 8 hours, As Needed for cough Quantity: 60 Refills: 0 Ordered: 17-Mar-2021 Viktoria Thacker Start: 17-Mar-2021 End: 26-Mar-2021 Generic Substitution Allowed Comments: May cause drowsiness. Alcohol may intensify this effect. Use care when operating dangerous machinery.Swallow whole. Do not crush. Comment on above: May cause drowsiness . Alcohol may intensify this effect. Use care when operating dangerous machinery.Swallow whole. Do not crush. budesonide 0.125 mg/ml inhalation suspension (17 sources) Corticosteroid Start: 03-05-2024 budesonide (PULMICORT) 0.25 mg/2 mL nebulizer solution Use 2 mL via nebulizer two times a day. 03/05/2024 Active Start: 04-16-2023 End: 03-16-2024 take 1 mg by inhalation twice daily Budesonide 1 mg/2 mL suspension for nebulization Discontinued 1 mg INHALATION TWICE A DAY 120 October 22, 2023 9:53am November 27, 2023 2:28pm Start: 03-18-2023 budesonide (Pu lmicort) 0.5 mg/2 mL nebulizer solution 0.5 mg Start: 04-02-2021 End: 04-13-2021 take 1 mg by inhalation twice daily Budesonide 1 mg/2 mL suspension for nebulization Discontinued 1 mg INHALATION TWICE A DAY 60 April 02, 2021 1:00am April 13, 2021 5:01pm cefTRIAXone 2000 mg injection (2 sources) Cephalosporin Antibacterial Start: 03-21-2023 cefTRIAXone (Rocephin) 2 g IV in dextrose 5% 50 mL Start: 03-17-2023 End: 03-17-2023 cefTRIAXone (Rocephin) 2 g I V in dextrose 5% 50 mL clopidogrel 75 mg oral tablet (20 sources) P2Y12 Platelet Inhibitor Start: 06-15-2018 End: 01-20-2024 take 1 tablet by mouth once daily clopidogrel (PLAVIX) 75 mg tablet Take 1 tablet by mouth once daily. Do NOT stop taking without talking to your blind cleaner. 30 tablet 11 06/15/2018 Active Plavix Quantity: 0 Refills: 0 Ordered: 07-Jan-2019 Bowling, Melanic Status: Discontinued Generic Substitution Allowed Comment on above: Take 1 tablet by richmond once daily. Do NOT stop taking without talking to your blind cleaner. docusate sodium 50 mg / sennosides, correction 8.6 mg oral tablet (19 sources) Start: 06-11-2020 take 1 tablet by mouth twice daily senna-docusate (SENNA-S) 8.6-50 mg per tablet 1 tablet by ORAL/FEEDING TUBE route twice daily. 06/11/2020 Active Start: 06-11-2020 End: 06-22-2020 Sennosides-Docusate Sodium 1 EACH tablet Discontinued 1 NMA PO TWICE A DAY June 11, 2020 12:00am June 22, 2020 11:42am Start: 06-11-2020 End: 06-22-2020 Sennosides-Docusate Sodium D iscontinued 1 EACH PO TWICE A DAY June 10, 2020 11:00pm June 22, 2020 10:42am Comment on above: 1 tablet by ORAL/FEE DING TUBE route twice daily. doxycycline monohydrate 100 mg oral tablet (10 sources) Tetracycline-class Drug Start: End: take 1 tablet by mouth twice daily doxycycline (Adoxa) 100 mg tablet Indications: COPD with exacerbation (Multi) Take 1 tablet (100 mg) by mouth 2 times a day for 7 days. Take with a full glass of water and do not lie down for at least 30 minutes after 14 tablet 11/17/2023 11/24/2023 Active Start: 03-10-2023 End: 03-21-2023 take 1 tablet by mouth twice daily doxycycline (Adoxa) 100 mg tablet Indications: Acute bronchitis, unspecified organism , Cellulitis of left upper extremity Take 1 tablet (100 mg) by mouth 2 times a day for 10 days. Take with a full glass of water and do not lie down for at least 30 minutes after 20 tablet 0 03/10/2023 03/21/2023 Discontinued (Stop Taking at Discharge) Start: 03-08-2022 End: 04-10-2022 take 1 tablet by mouth twice daily Doxycycline Hyclate 100 mg tablet Discontinued 100 mg PO TWICE A DAY March 08, 2022 1:00am April 10, 2022 3:55pm Start: 03-17-2021 End: 03-26-2021 take 1 tablet by mouth twice daily doxycycline monohydrate 100 mg oral tablet ; 1 tab(s) orally 2 times a day x 10 days Quantity: 20 Refills: 0 Ordered: 17-Mar-2021 Viktoria Thacker Start: 17-Mar-2021 End: 26-Mar-2021 Generic Substitution Allowed Comments: Avoid prolonged or excessive exposure to direct and/or artificial sunlight while taking this medication.Do not take this drug if you are .Finish all this medication unless otherwise directed by prescriber.Medication should be taken with plenty of water. Start: 05-04-2020 End: 05-13-2020 take 1 tablet by mouth twice daily doxycycline hyclate 100 mg oral tablet ; 1 tab(s) orally 2 times a day Quantity: 20 Refills: 0 Ordered: 04-May-2020 Mely Ramirez Start: 04-May-2020 End: 13-May-2020 Status: Discontinued Generic Substitution Allowed Comments: Avoid prolonged or excessive exposure to direct and/or artificial sunlight while taking this medication.Do not take this drug if you are .Finish all this medication unless otherwise directed by prescriber.Medication should be taken with plenty of water. Start: 02-23-2020 End: 03-03-2020 take 1 tablet by mouth twice daily doxycycline hyclate 100 mg oral tablet ; 1 tab(s) orally 2 times a day Quantity: 20 Refills: 0 Ordered: 23-Feb-2020 Mely Ramirez Start: 23-Feb-2020 End: 03-Mar-2020 Status: Discontinued Generic Substitution Allowed Comments: Avoid prolonged or excessive exposure to direct and/or artificial sunlight while taking this medication.Do not take this drug if you are .Finish all this medication unless otherwise directed by prescriber.Medication should be taken with plenty of water. Comment on above: Avoid prolonged or e xcessive exposure to direct and/or artificial sunlight while taking this medication.Do not take this drug if you are .Finish all this medication unless otherwise directed by prescriber.Medication should be taken with plenty of water. fluticasone propionate 0.05 mg/actuat metered dose nasal spray (6 sources) Corticosteroid Start: 04-27-2019 fluticasone (Flonase Allergy Relief) 50 mcg/actuation nasal spray Administer into affected nostril(s). 04/27/2019 Active Start: 04-27-2019 fluticasone (F lonase Allergy Relief) 50 mcg/actuation nasal spray Administer into affected nostril(s). 0 04/27/2019 Active formoterol fumarate 0.01 mg/ml inhalation solution (1 source) beta2-Adrenergic Agonist Start: 03-18-2023 formoterol (Perforomist) 20 mcg/2 mL nebulizer solution 20 mcg four factor human prothrombin complex concentrate (Kcentra) 2,134 Units in 80 mL infusion (1 source) Start: 09-27-2024 2,134 Units, intravenous, at 320 mL/hr, Administer over 15 Minutes, Once, On Fri09/27/24 at 0135, For 1 dose, Dose will be adjusted by Pharmacy to within 15% based on the actual factor IX potency of each vial which is variable. Administer at a rate of 0.12 mL/kg/minute (~3 units/kg/min) to a maximum of 8.4 mL/minute (200 units/min)., Provider specialty/service type: Emergency Medicine, Indication for use: DOAC reversal for life-threatening bleed furosemide 20 mg oral tablet (20 sources) Loop Diuretic Start: 02-08-2023 take 0.5 tablet by mouth every other day furosemide (Lasix) 20 mg tablet TAKE ONE-HALF TABLET (10mg) BY MOUTH EVERY OTHER DAY 02/08/2023 Active Start: 05-24-2022 End: 01-20-2024 take 10 mg by mouth every other day Furosemide 20 mg tablet Discontinued 10 mg PO every other day 60 January 17, 2023 4:28pm January 20, 2024 10:35am Start: 05-24-2022 End: 01-17-2023 take 10 mg by mouth every other day Furosemide Active 10 MG PO every other day 60 January 17, 2023 3:28pm Start: 03-29-2022 take 1 tablet by richmond th once daily furosemide (LASIX) 20 mg tablet Take 1 tablet by mouth once daily. 30 tablet 4 03/29/2022 Active Comment on above: Take 1 tablet by richmond th once daily. guaiFENesin 20 mg/ml oral solution (9 sources) Start: 03-19-2023 take 200 mg by mouth every four hours as needed guaiFENesin (Robitussin) 100 mg/5 mL syrup 200 mg Start: 05-24-2022 End: 04-12-2024 take 200 mg by mouth every four hours Guaifenesin 200 mg/5 mL liquid Discontinued 200 mg PO Q4H 473 May 24, 2022 12:00am April 12, 2024 2:32pm Start: 11-22-2020 End: 05-24-2022 take 1 tablet by mouth every twelve hours Guaifenesin 1,200 mg tablet extended release 12hr Discontinued 1200 mg PO Q12H 60 November 22, 2020 12:00am May 24, 2022 2:14pm ipratropium bromide 0.2 mg/ml inhalation solution (18 sources) Anticholinergic Start: 05-24-2022 End: 04-16-2023 ipratropium (Atrovent) 0.02 % nebulizer solution USe contents OF 1 (ONE) vial via nebulizer EVERY 6 HOURS NEEDED for SHORTNESS OF BREATH or FOR WHEEZING 02/14/2023 Active Start: 06-29-2020 End: 04-10-2022 Ipratropium Hooker 21 mcg ( 0.03 %) spray,non-aerosol Discontinued 2 NMA INTRANASAL TWICE A DAY June 29, 2020 12:00am April 10, 2022 3:55pm administer into each nostril Start: 06-29-2020 End: 04-10-2022 take 1 spray(s) nasal route twice daily Ipratropium Hooker Discontinued 2 SPRAY INTRANASAL TWICE A DAY June 28, 2020 11:00pm April 10, 2022 2:55pm administer into each nostril Start: 06-22-2020 End: 06-29-2020 Ipratropium Hooker 1 SPRAY spray,non-aerosol Discontinued 2 NMA NASAL THREE TIMES A DAY June 22, 2020 12:00am June 29, 2020 1:57pm Start: 06-22-2020 End: 06-29-2020 Ipratropium Hooker Disconti nued 2 SPRAY NASAL THREE TIMES A DAY June 21, 2020 11:00pm June 29, 2020 12:57pm lactobacillus acidophilus [id number] unt / pectin 100 mg oral capsule (2 sources) Start: 03-22-2023 End: 04-21-2023 take 1 capsule by mouth once daily lactobacillus acidophilus capsule Indications: Cellulitis of right lower extremity Take 1 capsule by mouth once daily. Do not start before March 22, 2023. 30 capsule 0 03/22/2023 04/21/2023 Active Start: 03-18-2023 lactobacillus acidophilus capsule 1 capsule levothyroxine sodium 0.075 mg oral tablet (20 sources) l-Thyroxine Start: 04-27-2019 End: 01-20-2024 take 1 tablet by mouth once daily levothyroxine (Synthroid, Levoxyl) 75 mcg tablet Take 1 tablet (75 mcg) by mouth once daily. 04/27/2019 Active take 1 tablet by mouth once shameka y levothyroxine 75 mcg (0.075 mg) oral tablet ; 1 tab(s) orally once a day Quantity: 0 Refills: 0 Ordered: 22-Sep-2019 Selma Bland Generic Substitution Allowed levothyroxine Qu antity: 0 Refills: 0 Ordered: 07-Jan-2019 Rajinderling, Melanic Status: Discontinued Generic Substitution Allowed Comment on above: Take 75 mcg by mouth daily before breakfast. losartan potassium 100 mg oral tablet (20 sources) Angiotensin 2 Receptor Carlos Start: 06-22-2020 End: 01-20-2024 losartan (COZAAR) 100 mg tablet 11/16/2020 Active metoprolol tartrate 25 mg oral tablet (20 sources) beta-Adrenergic Carlos Start: 06-06-2022 take 0.5 tablet by mouth once daily metoprolol tartrate, short acting, (LOPRESSOR) 25 mg tablet 0.5 tablets by ORAL/FEEDING TUBE route once daily. 06/06/2022 Active Start: 06-06-2022 take 0.5 tablet by m outh once daily metoprolol tartrate, short acting, (LOPRESSOR) 25 mg tablet 0.5 tablets by ORAL/FEEDING TUBE route once daily. 0 06/06/2022 Active Start: 06-22-2020 End: 01-17-2023 take 50 mg by mouth at bedtime Metoprolol Succinate Ac tive 50 MG PO AT BEDTIME January 17, 2023 3:28pm Start: 06-22-2020 End: 01-20-2024 take 1 tablet by mouth every twenty-four hours at bedtime Metoprolol Succinate 50 mg tablet extended release 24 hr Discontinued 50 mg PO AT BEDTIME January 17, 2023 4:28pm January 20, 2024 10:35am Start: 06-11-2020 End: 06-06-2022 take 0.5 tablet by mouth every twelve hours metoprolol tartrate, short acting, (LOPRESSOR) 25 mg tablet 0.5 tablets by ORAL/FEEDING TUBE route every 12 hours. 0 06/11/2020 06/06/2022 Discontinued Start: 06-11-2020 End: 06-22-2020 Metoprolol Tartrate 25 MG ta blet Discontinued 12.5 mg PO TWICE A DAY June 11, 2020 12:00am June 22, 2020 11:41am Start: 06-11-2020 End: 06-22-2020 take 12.5 mg by mouth twice daily Metoprolol Tartrate Discontinued 12.5 MG PO TWICE A DAY June 10, 2020 11:00pm June 22, 2020 10:41am Comment on above: 0.5 tablets by ORAL/ FEEDING TUBE route every 12 hours. 0.5 tablets by ORAL/ FEEDING TUBE route once daily. montelukast 10 mg oral tablet (20 sources) Leukotriene Receptor Antagonist Start: 04-02-19 End: 03-16-19 25 take 1 tablet by mouth once daily at bedtime montelukast (SINGULAIR) 10 mg tablet Take 10 mg by mouth daily at bedtime. 02/14/2022 Active Comment on above: Take 10 mg by mouth daily at bedtime. Multivitamin 1 EACH tablet (2 sources) Start: 06-12-19 Multivitamin 1 EACH tablet Active 1 NMA PO DAILY June 11, 2020 12:00am Multivitamin preparation (3 sources) Start: 06-12-19 Multivitamin Active 1 EACH PO DAILY June 10, 2020 11:00pm Start: 06-11-2020 Multivitamin A ctive 1 EACH PO DAILY June 11, 2020 12:00am MULTIVITAMIN TAB (14 sources) Start: 08-18-2009 MULTIVITAMIN T AB Take one(1) tablet daily. 0 08/18/2009 Suspended Start: 08-18-2009 MULTIVITAMIN T AB Take one(1) tablet daily. 0 08/18/2009 Active Comment on above: Take one(1) tablet d aily. Omalizumab (Xolair) 300 mg/2 mL auto-injector (1 source) Start: 07-15-19 Omalizumab (Xolair) 300 mg/2 mL auto-injector Active 300 mg SC every 4 weeks 2 July 14, 2024 12:00am 2 ml ondansetron 2 mg/ml injection (1 source) Serotonin-3 Receptor Antagonist Start: 03-19-19 24 take 4 mg intravenously every four hours as needed ondansetron (Zofran) injection 4 mg oxygen (O2) therapy (2 sources) Start: 09-27-19 25 1 Dose, inhalation, As needed, oxygen, Starting on 09/26/24 at 2321, May use oxymask if needed, Device: Nasal Cannula, Rate in liters per minute: 2 LPM, Keep O2 Sat Above: 90% Start: 03-17-2023 oxygen (O2) th erapy PEP device (5 sources) Start: 02-16-2021 PEP device Act sruthi 0 .ROUTE .MEDSUPPLY February 16, 2021 12:00am with training Start: 02-16-2021 PEP device Act sruthi 0 .ROUTE .MEDSUPPLY February 16, 2021 1:00am with training polyethylene glycol 3350 24292 mg powder for oral solution (1 source) Osmotic Laxative Start: 03-18-2023 17 g, oral, D aily, First dose on Fri03/18/23 at 0900 Bowel Regimen - for prevention of constipation. microencapsulated potassium chloride 20 meq extended release oral tablet (20 sources) Start: 06-22-2020 End: 01-20-2024 potassium chloride CR 20 mEq ER tablet 03/10/2023 Active povidone-iodine 75 mg/ml topical solution (2 sources) Antiseptic Start: 03-19-2023 End: 03-28-2023 povidone-iodine (Betadine) 7.5 % solution Indications: Cellulitis of right lower extremity Apply 1 Application topically 4 times a day for 7 days. 14 mL 0 03/21/2023 03/28/2023 Active predniSONE 10 mg oral tablet (20 sources) Start: 07-14-2024 Prednisone 10 mg tablet Active 10 mg PO daily 30 July 14, 2024 12:00am July 25, 2024 12:00am take 4 tabs for three days, then 3 tabs for three days, then 2 tabs for three days, then 1 tab for 3 days Start: 11-17-2023 End: 11-22-2023 take 6 tablets by mouth once daily, then take 5 tablets by mouth once daily, then take 4 tablets by mouth once daily, then take 3 tablets by mouth once daily, then take 2 tablets by mouth once daily, then take 1 tablet by mouth once daily predniSONE (Deltasone) 10 mg tablet Indications: COPD with exacerbation (Multi) Take 6 tablets (60 mg) by mouth once daily for 1 day, THEN 5 tablets (50 mg) once daily for 1 day, THEN 4 tablets (40 mg) once daily for 1 day, THEN 3 tablets (30 mg) once daily for 1 day, THEN 2 tablets (20 mg) once daily for 1 day, THEN 1 tablet (10 mg) once daily for 1 day. 21 tablet 11/17/2023 11/22/2023 Active Start: 03-21-2023 End: 03-29-2023 take 4 tablets by mouth once daily, then take 2 tablets by mouth once daily, then take 1 tablet by mouth once daily predniSONE (Deltasone) 10 mg tablet Indications: COPD (chronic obstructive pulmonary disease) ([facility]) Take 4 tablets (40 mg) by mouth once daily for 3 days, THEN 2 tablets (20 mg) once daily for 3 days, THEN 1 tablet (10 mg) once daily for 3 days. 21 tablet 0 03/21/2023 03/29/2023 Active Start: 03-18-2023 predniSONE (De ltasone) tablet 40 mg Start: 03-10-2023 End: 03-21-2023 take 6 tablets by mouth once daily, then take 5 tablets by mouth once daily, then take 4 tablets by mouth once daily, then take 3 tablets by mouth once daily, then take 2 tablets by mouth once daily, then take 1 tablet by mouth once daily predniSONE (Deltasone) 10 mg tablet Indications: Acute bronchitis, unspecified organism Take 6 tablets (60 mg) by mouth once daily for 1 day, THEN 5 tablets (50 mg) once daily for 1 day, THEN 4 tablets (40 mg) once daily for 1 day, THEN 3 tablets (30 mg) once daily for 1 day, THEN 2 tablets (20 mg) once daily for 1 day, THEN 1 tablet (10 mg) once daily for 1 day. 21 tablet 0 03/10/2023 03/21/2023 Discontinued (Stop Taking at Discharge) Start: 02-11-2022 End: 02-28-2022 take 2 tablets by mouth once daily Prednisone 20 mg tablet Discontinued 40 mg PO DAILY 13 09February 11, 2022 1:00am February 28, 2022 9:15am Start: 02-11-2022 End: 02-28-2022 take 40 mg by mouth once daily Prednisone Discontinued 40 MG PO DAILY 13 09February 11, 2022 12:00am February 28, 2022 8:15am Start: 11-21-2021 End: 02-28-2022 take 3 tablets by mouth once daily at mealtime Prednisone 20 mg tablet Discontinued 60 mg PO daily November 21, 2021 12:00am February 28, 2022 9:15am administer with food or milk Start: 11-21-2021 End: 02-28-2022 take 60 mg by mouth once daily at mealtime Prednisone Discontinued 60 MG PO daily November 20, 2021 11:00pm February 28, 2022 8:15am administer with food or milk Start: 09-20-2021 End: 03-16-2024 take 1 tablet by mouth once daily predniSONE (DELTASONE) 10 mg tablet Take 10 mg by mouth once daily. 12/28/2021 Active Start: 05-22-2021 End: 09-20-2021 take 4 tablets by mouth once daily, then take 3 tablets by mouth once daily, then take 2 tablets by mouth once daily, then take 1 tablet by mouth once daily Prednisone 10 mg tablet Discontinued 10 mg PO DAILY May 22, 2021 12:00am September 20, 2021 11:18am Take 4 tabs PO daily for 3 days, then 3 tabs daily for 3 days, then 2 tabs daily for 3 days, then 1 tab daily for 3 days Start: 03-17-2021 End: 03-19-2021 take 1 tablet by mouth once daily at mealtime predniSONE 20 mg oral tablet ; 1 tab(s) orally once a day x 3 days. Take with food. Quantity: 3 Refills: 0 Ordered: 17-Mar-2021 Viktoria Thacker Start: 17-Mar-2021 End: 19-Mar-2021 Generic Substitution Allowed Comments: It is very important that you take or use this exactly as directed. Do not skip doses or discontinue unless directed by your doctor.Obtain medical advice before taking any non-prescription drugs as some may affect the action of this medication.Take with food or milk. Start: 05-04-2020 End: 05-21-2020 take 1 tablet by mouth once daily at mealtime predniSONE 10 mg oral tablet ; 1 tab(s) orally once a day Quantity: 18 Refills: 0 Ordered: 04-May-2020 Mely Ramirez Start: 04-May-2020 End: 21-May-2020 Status: Other Generic Substitution Allowed Comments: It is very important that you take or use this exactly as directed. Do not skip doses or discontinue unless directed by your doctor.Obtain medical advice before taking any non-prescription drugs as some may affect the action of this medication.Take with food or milk. Start: 12-13-2019 End: 12-17-2019 take 2 tablets by mouth once daily at mealtime predniSONE 20 mg oral tablet ; 2 tab(s) orally once a day Quantity: 10 Refills: 0 Ordered: 13-Dec-2019 Allyson Lomax Start: 13-Dec-2019 End: 17-Dec-2019 Status: Other Generic Substitution Allowed Comments: It is very important that you take or use this exactly as directed. Do not skip doses or discontinue unless directed by your doctor.Obtain medical advice before taking any non-prescription drugs as some may affect the action of this medication.Take with food or milk. Comment on above: It is very important that you take or use this exactly as directed. Do not skip doses or discontinue unless directed by your doctor.Obtain medical advice before taking any non-prescription drugs as some may affect the action of this medication.Take with food or milk. Take 10 mg by mouth once daily. rivaroxaban 20 mg oral tablet (20 sources) Factor Xa Inhibitor Start: 03-18-2023 20 mg, oral, Daily with evening meal, First dose on Fri03/18/23 at 1700 Best administered with food or immediately before tube feedings. If ordered via NG or G-tube route, crush and mix with 50 mL water; give within 4 hours of mixing. Start: 07-11-2020 End: 01-20-2024 take 1 tablet by mouth once daily at dinner rivaroxaban (XARELTO) 20 mg tablet Take 1 tablet by mouth daily with dinner. 11/20/2020 Active Start: 06-22-2020 End: 07-11-2020 Rivaroxaban 1 EACH tablets,d ose pack Discontinued 1 NMA PO DIRECTED June 22, 2020 12:00am July 11, 2020 12:16pm Start: 06-22-2020 End: 07-11-2020 Rivaroxaban Discontinued 1 E ACH PO DIRECTED June 21, 2020 11:00pm July 11, 2020 11:16am Start: 06-22-2020 End: 07-11-2020 Rivaroxaban Discontinued 1 E ACH PO DIRECTED June 22, 2020 12:00am July 11, 2020 12:16pm Comment on above: Take 1 tablet by richmond th daily with dinner. rosuvastatin calcium 20 mg oral tablet (1 source) HMG-CoA Reductase Inhibitor take 1 tablet by mouth once daily rosuvastatin 20 mg oral tablet ; 1 tab(s) orally once a day Quantity: 0 Refills: 0 Ordered: 07-Jan-2019 Vannessa Larios Generic Substitution Allowed sertraline 100 mg oral tablet (20 sources) Serotonin Reuptake Inhibitor Start: 06-23-19 End: 01-20-20 24 sertraline (ZOLOFT) 100 mg tablet 11/16/2020 Active spironolactone 25 mg oral tablet (18 sources) Aldosterone Antagonist Start: 04-14-19 Spironolactone 25 mg tablet Active 12.5 mg PO DAILY April 14, 2023 1:00am Start: 04-14-2023 take 12.5 mg by mout h once daily Spironolactone Active 12.5 MG PO DAILY April 14, 2023 12:00am Start: 03-10-2023 spironolactone (Aldactone) 25 mg tablet 03/10/2023 Active Start: 06-06-2022 End: 09-24-2024 take 0.5 tablet by mouth once daily spironolactone (ALDACTONE) 25 mg tablet Indications: Chronic diastolic CHF (congestive heart failure) (HCC) Take 0.5 tablets by mouth once daily. 45 tablet 3 09/25/2024 Active Comment on above: Take 0.5 tablets by mouth once daily. valsartan 320 mg oral tablet (1 source) Angiotensin 2 Receptor Carlos take 1 tablet by mouth once daily valsartan 320 mg oral tablet ; 1 tab(s) orally once a day Quantity: 0 Refills: 0 Ordered: 22-Sep-2019 Selma Bland Status: Other Generic Substitution Allowed Completed/Discontinued Medications Medication Drug Class(es) Dates Sig (Normalized) Sig (Original) amoxicillin 875 mg oral tablet (1 source) Penicillin-class Antibacterial Start: 01-25-2020 End: 01-31-2020 take 1 tablet by mouth twice daily amoxicillin 875 mg oral tablet ; 1 tab(s) orally 2 times a day Quantity: 14 Refills: 0 Ordered: 25-Jan-2020 Sarabjit Oliveira Start: 25-Jan-2020 End: 31-Jan-2020 Status: Other Generic Substitution Allowed Comments: Finish all this medication unless otherwise directed by prescriber. Comment on above: Finish all this medi cation unless otherwise directed by prescriber. apixaban 5 mg oral tablet (5 sources) Factor Xa Inhibitor Start: 06-29-2020 End: 07-11-2020 take 1 tablet by mouth twice daily Apixaban (Eliquis) 5 mg tablet Discontinued 5 mg PO TWICE A DAY June 29, 2020 12:00am July 11, 2020 12:15pm aspirin 650 mg delayed release oral tablet (2 sources) Platelet Aggregation Inhibitor, Nonsteroidal Anti-inflammatory Drug Start: 03-29-2022 End: 03-29-2022 Aspirin 650 mg EC tablet Take 81 mg by mouth one time only. 0 03/29/2022 03/29/2022 Comment on above: Take 81 mg by mouth one time only. azithromycin 250 mg oral tablet (11 sources) Macrolide Antimicrobial Start: 04-12-2024 End: 04-17-2024 take 1 tablet by mouth once daily Azithromycin 250 mg tablet Discontinued 250 mg PO daily 5 5 April 12, 2024 1:00am April 16, 2024 1:00am April 17, 2024 1:19am Start: 04-03-2024 azithromycin ( Zithromax Z-Jatin) 250 mg tablet Indications: Acute bronchitis, unspecified organism Take 2 tablets by mouth at once on day 1, then 1 tablet once a day on days 2-5. Take with a meal. 6 tablet 04/03/2024 Active Start: 11-21-2021 End: 12-20-2021 take 2-5 tablets by mouth once daily Azithromycin 250 mg tablet Discontinued 0 PO .COMPLEX 6 November 21, 2021 12:00am December 20, 2021 1:47pm take 500 mg today (day 1), then 250 mg for 4 days (days 2-5) PO Start: 01-14-2020 Zithromax Z-Pa k 250 mg oral tablet ; as directed on packeage Quantity: 1 Refills: 0 Ordered: 14-Jan-2020 Sarabjit Oliveira Start: 14-Jan-2020 Status: Other Generic Substitution Allowed Comments: Do not take dairy products, antacids, or iron preparations within one hour of this medication.Finish all this medication unless otherwise directed by prescriber. Start: 12-13-2019 take 1 tablet by richmond once daily Azithromycin 5 Day Dose Pack 250 mg oral tablet ; 1 packet(s) orally once a day Quantity: 1 Refills: 0 Ordered: 13-Dec-2019 Allyson Lomax Start: 13-Dec-2019 Status: Discontinued Generic Substitution Allowed Comments: Do not take dairy products, antacids, or iron preparations within one hour of this medication.Finish all this medication unless otherwise directed by prescriber. Start: 01-07-2019 End: 01-11-2019 Azithromycin 5 Day Dose Pack 250 mg oral tablet ; 250 milligram(s) orally once a day Quantity: 1 Refills: 0 Ordered: 07-Jan-2019 Kimberly Khoury Start: 07-Jan-2019 End: 11-Jan-2019 Status: Discontinued Generic Substitution Allowed Comments: Do not take dairy products, antacids, or iron preparations within one hour of this medication.Finish all this medication unless otherwise directed by prescriber. Comment on above: Do not take dairy pr oducts, antacids, or iron preparations within one hour of this medication.Finish all this medication unless otherwise directed by prescriber. azithromycin (Zithromax) in dextrose 5 % in water (D5W) 250 mL IV 500 mg (1 source) Start: End: azithromycin (Zithromax) in dextrose 5 % in water (D5W) 250 mL IV 500 mg bisacodyl 10 mg rectal suppository (5 sources) Stimulant Laxative Start: End: Bisacodyl 10 mg suppository Discontinued 10 mg RC DAILY as needed June 29, 2020 12:00am July 11, 2020 9:08am brompheniramine maleate 0.4 mg/ml / dextromethorphan hydrobromide 2 mg/ml / pseudoephedrine hydrochloride 6 mg/ml oral solution (1 source) alpha-Adrenergic Agonist, Uncompetitive R-azhnrq-O-aspartate Receptor Antagonist, Sigma-1 Agonist Start: End: take 5 mL by mouth every six hours brompheniramine/pse udoephedrine/dextro methorphan [id number]/5 mL oral syrup ; 5 milliliter(s) orally every 6 hours Quantity: 120 Refills: 0 Ordered: 23-Feb-2020 Mely Ramirez Start: 23-Feb-2020 End: 27-Feb-2020 Status: Other Generic Substitution Allowed Comments: May cause drowsiness. Alcohol may intensify this effect. Use care when operating dangerous machinery.Obtain medical advice before taking any non-prescription drugs as some may affect the action of this medication. Comment on above: May cause drowsiness . Alcohol may intensify this effect. Use care when operating dangerous machinery.Obtain medical advice before taking any non-prescription drugs as some may affect the action of this medication. Budesonide-Formoterol (20 sources) Corticosteroid, beta2-Adrenergic Agonist Start: End: Budesonide-Formoter ol (Symbicort) 160-4.5 mcg/actuation HFA aerosol inhaler Discontinued 2 NMA INHALATION TWICE A DAY 1 April 13, 2021 1:00am April 21, 2021 6:45am administer with spacer, rinse mouth after each use Start: 04-13-2021 End: 04-21-2021 take 1 puff(s) by mouth twice daily Budesonide-Formoterol (Symbicort) 160-4.5 mcg/actuation HFA aerosol inhaler Discontinued 2 PUFF INHALATION TWICE A DAY 1 April 13, 2021 12:00am April 21, 2021 5:45am administer with spacer, rinse mouth after each use Start: 04-13-2021 End: 04-21-2021 take 1 puff(s) by mouth twice daily Budesonide-Formoterol (Symbicort) 160-4.5 mcg/actuation HFA aerosol inhaler Discontinued 2 PUFF INHALATION TWICE A DAY 1 April 13, 2021 1:00am April 21, 2021 6:45am administer with spacer, rinse mouth after each use Start: 03-29-2021 End: 04-02-2021 Budesonide-Formoterol (Symbi leon) 160-4.5 mcg/actuation HFA aerosol inhaler Discontinued 2 NMA INHALATION TWICE A DAY 1 March 29, 2021 4:11pm April 02, 2021 4:00pm administer with spacer, rinse mouth after each use Start: 03-29-2021 End: 04-02-2021 take 1 puff(s) by mouth twice daily Budesonide-Formoterol (Symbicort) 160-4.5 mcg/actuation HFA aerosol inhaler Discontinued 2 PUFF INHALATION TWICE A DAY 1 March 29, 2021 3:11pm April 02, 2021 3:00pm administer with spacer, rinse mouth after each use Start: 03-29-2021 End: 04-02-2021 take 1 puff(s) by mouth twice daily Budesonide-Formoterol (Symbicort) 160-4.5 mcg/actuation HFA aerosol inhaler Discontinued 2 PUFF INHALATION TWICE A DAY 1 March 29, 2021 4:11pm April 02, 2021 4:00pm administer with spacer, rinse mouth after each use Start: 03-20-2021 End: 03-29-2021 Budesonide-Formoterol (Symbi leon) 160-4.5 mcg/actuation HFA aerosol inhaler Discontinued 2 NMA INHALATION TWICE A DAY 1 March 20, 2021 1:00am March 29, 2021 4:12pm administer with spacer, rinse mouth after each use Start: 03-20-2021 End: 03-29-2021 take 1 puff(s) by mouth twice daily Budesonide-Formoterol (Symbicort) 160-4.5 mcg/actuation HFA aerosol inhaler Discontinued 2 PUFF INHALATION TWICE A DAY 1 March 20, 2021 12:00am March 29, 2021 3:12pm administer with spacer, rinse mouth after each use Start: 03-20-2021 End: 03-29-2021 take 1 puff(s) by mouth twice daily Budesonide-Formoterol (Symbicort) 160-4.5 mcg/actuation HFA aerosol inhaler Discontinued 2 PUFF INHALATION TWICE A DAY 1 March 20, 2021 1:00am March 29, 2021 4:12pm administer with spacer, rinse mouth after each use Start: 12-12-2020 End: 02-16-2021 Budesonide-Formoterol 160-4. 5 mcg/actuation HFA aerosol inhaler Discontinued 2 NMA INHALATION December 12, 2020 12:00am February 16, 2021 2:20pm Start: 12-12-2020 End: 02-16-2021 Budesonide-Formoterol Discon tinued 2 INH INHALATION December 11, 2020 11:00pm February 16, 2021 1:20pm Start: 07-11-2020 End: 11-22-2020 Budesonide-Formoterol 160-4. 5 mcg/actuation HFA aerosol inhaler Discontinued 2 NMA INHALATION Q12H 10.2 July 11, 2020 4:29pm November 22, 2020 1:10pm Start: 07-11-2020 End: 11-22-2020 Budesonide-Formoterol Discon tinued 2 INH INHALATION Q12H 10.2 July 11, 2020 3:29pm November 22, 2020 12:10pm Start: 07-11-2020 End: 11-22-2020 Budesonide-Formoterol Discon tinued 2 INH INHALATION Q12H 10.2 July 11, 2020 4:29pm November 22, 2020 1:10pm Start: 06-22-2020 End: 07-11-2020 Budesonide-Formoterol 1 PUFF inhaler Discontinued 10.2 g IH Q12H 1 June 22, 2020 12:00am July 11, 2020 4:32pm Start: 12-13-2019 take 2 puff(s) by [facility] twice daily budesonide-formoterol 160 mcg-4.5 mcg/inh inhalation aerosol ; 2 puff(s) inhaled 2 times a day Quantity: 1 Refills: 0 Ordered: 13-Dec-2019 Allyson Lomax Start: 13-Dec-2019 Status: Other Generic Substitution Allowed Comments: Check with your doctor before becoming .For inhalation only.Rinse mouth thoroughly after use. Comment on above: Check with your doct or before becoming .For inhalation only.Rinse mouth thoroughly after use. Budesonide-Glycopyr- Formoterol (5 sources) Corticosteroid, beta2-Adrenergic Agonist Start: 02-16-2021 End: 03-20-2021 Ontqiblivg-Iqfgcghq-Dohvz terol (Breztri Aerosphere) 160-9-4.8 mcg/actuation HFA aerosol inhaler Discontinued 2 NMA INHALATION TWICE A DAY 10.7 February 16, 2021 1:00am March 20, 2021 9:56am Start: 02-16-2021 End: 03-20-2021 Zsyijavifl-Mtfwjaun-Fxyjolnz ol (Breztri Aerosphere) 160-9-4.8 mcg/actuation HFA aerosol inhaler Discontinued 2 INH INHALATION TWICE A DAY 10.7 February 16, 2021 12:00am March 20, 2021 8:56am Start: 02-16-2021 End: 03-20-2021 Srjcozzgoe-Tdphkqdg-Rokvwpph ol (Breztri Aerosphere) 160-9-4.8 mcg/actuation HFA aerosol inhaler Discontinued 2 INH INHALATION TWICE A DAY 10.7 February 16, 2021 1:00am March 20, 2021 9:56am doxycycline (Vibramycin) in dextrose 5 % in water (D5W) 100 mL IV 100 mg (1 source) Start: 03-18-2023 End: 03-18-2023 take 100 mg intravenously every twelve hours doxycycline (Vibramycin) in dextrose 5 % in water (D5W) 100 mL IV 100 mg 2 ml dupilumab 150 mg/ml auto-injector (5 sources) Interleukin-4 Receptor alpha Antagonist Start: 04-16-2023 End: 03-16-2024 Dupilumab (Dupixent Pen) 300 mg/2 mL pen injector Discontinued 300 mg SC every 2 weeks 4 December 02, 2023 8:46am March 16, 2024 4:22pm Dupilumab 300 mg/2 mL pen injector (2 sources) Start: 12-04-2023 End: 03-16-2024 Dupilumab 300 mg/2 mL pen injector Discontinued 600 mg SC ONCE 4 December 04, 2023 12:00am March 16, 2024 4:22pm as a single dose Fluticasone-Umecli din-Vilanter (20 sources) Anticholinergic, Corticosteroid, beta2-Adrenergic Agonist Start: 04-16-2023 End: 04-16-2023 Fluticasone-Umecl idin-Vilanter (Trelegy Ellipta) 100-62.5-25 mcg blister with device Discontinued 1 NMA INHALATION DAILY 60 April 16, 2023 3:11pm April 16, 2023 3:27pm Start: 04-16-2023 End: 04-16-2023 Tztjiskqkcv-Dwekcyuuy-Jvcyhp er (Trelegy Ellipta) 100-62.5-25 mcg blister with device Discontinued 1 INH INHALATION DAILY 60 April 16, 2023 2:11pm April 16, 2023 2:27pm Start: 04-09-2023 End: 04-16-2023 Vmyfgvycxok-Aqdpbbcjm-Hqbaqf er (Trelegy Ellipta) 100-62.5-25 mcg blister with device Discontinued 1 NMA INHALATION DAILY 60 April 09, 2023 12:44pm April 16, 2023 3:12pm Start: 04-09-2023 End: 04-16-2023 Vwlpqbsuyjv-Hyvstzezb-Oxyusf er (Trelegy Ellipta) 100-62.5-25 mcg blister with device Discontinued 1 INH INHALATION DAILY 60 April 09, 2023 11:44am April 16, 2023 2:12pm Start: 03-10-2023 Trelegy Ellipt a 100-62.5-25 mcg blister with device 03/10/2023 Active Start: 10-08-2022 End: 04-09-2023 Bmxopdrtbth-Qbsbrhwse-Fpqcwk er (Trelegy Ellipta) 100-62.5-25 mcg blister with device Discontinued 1 NMA INHALATION DAILY 60 October 08, 2022 2:00pm April 09, 2023 12:44pm Start: 10-08-2022 End: 04-09-2023 Cupzmergnqu-Gpmhdrcgu-Qgxbpf er (Trelegy Ellipta) 100-62.5-25 mcg blister with device Discontinued 1 INH INHALATION DAILY 60 October 08, 2022 1:00pm April 09, 2023 11:44am Start: 04-11-2022 End: 10-08-2022 Fgbjrhdmaip-Godsuptst-Gkfcdr er (Trelegy Ellipta) 100-62.5-25 mcg blister with device Discontinued 1 NMA INHALATION DAILY 60 April 11, 2022 10:05am October 08, 2022 2:01pm Start: 04-11-2022 End: 10-08-2022 Zlvktujwbbr-Itccxafgi-Nwmcrd er (Trelegy Ellipta) 100-62.5-25 mcg blister with device Discontinued 1 INH INHALATION DAILY 60 April 11, 2022 9:05am October 08, 2022 1:01pm Start: 02-14-2022 End: 03-05-2024 take 1 puff(s) by inhalation once daily TRELEGY ELLIPTA 100-62.5-25 mcg inhalati on powder INHALE 1 PUFF DAILY DIRECTED 02/14/2022 03/05/2024 Discontinued Start: 09-18-2021 End: 04-11-2022 Fxpgslhutrk-Nxlikulyw-Qtkeao er (Trelegy Ellipta) 100-62.5-25 mcg blister with device Discontinued 1 NMA INHALATION DAILY 60 September 18, 2021 8:42am April 11, 2022 10:06am Start: 09-18-2021 End: 04-11-2022 Flovwsuwpwn-Qmvaylkrt-Mkimgr er (Trelegy Ellipta) 100-62.5-25 mcg blister with device Discontinued 1 INH INHALATION DAILY 60 September 18, 2021 7:42am April 11, 2022 9:06am Start: 09-18-2021 Fluticasone-Um eclidin-Vilanter (Trelegy Ellipta) 100-62.5-25 mcg blister with device Active 1 INH INHALATION DAILY 60 September 18, 2021 7:42am Start: 08-23-2021 End: 09-18-2021 Ouxnefkdnin-Jclrmizrs-Cbguue er (Trelegy Ellipta) 100-62.5-25 mcg blister with device Discontinued 1 NMA INHALATION DAILY 60 August 23, 2021 2:40pm September 18, 2021 8:43am Start: 08-23-2021 End: 09-18-2021 Vpozkywehox-Evxxzeiys-Fvivcq er (Trelegy Ellipta) 100-62.5-25 mcg blister with device Discontinued 1 INH INHALATION DAILY 60 August 23, 2021 1:40pm September 18, 2021 7:43am Start: 08-23-2021 Fluticasone-Um eclidin-Vilanter (Trelegy Ellipta) 100-62.5-25 mcg blister with device Active 1 INH INHALATION DAILY 60 August 23, 2021 2:40pm Start: 04-21-2021 End: 08-23-2021 Ybbjamkssxi-Xckykxnvy-Ecsmtb er (Trelegy Ellipta) 100-62.5-25 mcg blister with device Discontinued 1 NMA INHALATION DAILY 60 April 21, 2021 1:00am August 23, 2021 2:40pm Start: 04-21-2021 End: 08-23-2021 Xktdwsyuwsy-Zujqndmet-Xntcmw er (Trelegy Ellipta) 100-62.5-25 mcg blister with device Discontinued 1 INH INHALATION DAILY 60 April 21, 2021 12:00am August 23, 2021 1:40pm Start: 04-21-2021 End: 08-23-2021 Ylapxjkirzc-Lwrfosbhr-Gyhtfw er (Trelegy Ellipta) 100-62.5-25 mcg blister with device Discontinued 1 INH INHALATION DAILY 60 April 21, 2021 1:00am August 23, 2021 2:40pm Comment on above: INHALE 1 PUFF DAILY DIRECTED glycopyrrolate 0.025 mg/ml inhalation solution (5 sources) Start: 04-02-19 End: 04-13-19 take 25 ug by inhalation once daily in the morning Glycopyrrol-Nebuliz er-Accessor (Lonhala Magnair Starter) 25 mcg/mL solution for nebulization Discontinued 1 mL INHALATION TWICE A DAY April 02, 2021 1:00am April 13, 2021 5:01pm administer in the morning and evening at the same times each day hydrALAZINE hydrochloride 25 mg oral tablet (5 sources) Arteriolar Vasodilator Start: 06-30-19 21 End: 07-12-19 21 take 1 tablet by mouth every four hours as needed Hydralazine 25 mg tablet Discontinued 25 mg PO Q4H as needed June 29, 2020 12:00am July 11, 2020 2:52pm hydrogen peroxide 30 mg/ml topical solution (1 source) Start: 03-19-19 24 End: 03-19-19 hydrogen peroxide external solution - Omnicell Override Pull iohexol (OMNIPaque) 350 mg iodine/mL solution 69 mL (1 source) Start: 09-28-19 End: 09-28-19 69 mL, intravenous, Once in imaging, Starting on Fri09/27/24 at 0036, For 1 dose iohexol (OMNIPaque) 350 mg iodine/mL solution 70 mL (1 source) Start: 03-18-19 End: 03-18-19 iohexol (OMNIPaque) 350 mg iodine/mL solution 70 mL iohexol (OMNIPaque) 350 mg iodine/mL solution 74 mL (1 source) Start: 03-17-19 End: 03-17-19 iohexol (OMNIPaque) 350 mg iodine/mL solution 74 mL irbesartan 300 mg oral tablet (7 sources) Angiotensin 2 Receptor Carlos Start: 06-12-19 End: 06-23-19 take 1 tablet by mouth once daily Irbesartan 300 MG tablet Discontinued 300 mg PO DAILY June 11, 2020 12:00am June 22, 2020 11:39am irbesartan Quant ity: 0 Refills: 0 Ordered: 07-Jan-2019 Ric, Melanic Status: Discontinued Generic Substitution Allowed levoFLOXacin 500 mg oral tablet (5 sources) Quinolone Antimicrobial Start: 05-22-2021 End: 09-20-2021 take 1 tablet by mouth every twenty-four hours Levofloxacin 500 mg tablet Discontinued 500 mg PO Q24H May 22, 2021 12:00am September 20, 2021 11:18am magnesium chloride 598 mg delayed release oral tablet (12 sources) Start: 06-22-2020 End: 01-20-2024 take 1 tablet by mouth twice daily Magnesium Chloride 71.5 mg tablet,delayed release (DR/EC) Discontinued 71.5 mg PO TWICE A DAY July 11, 2020 4:31pm January 20, 2024 10:35am magnesium hydroxide 80 mg/ml oral suspension (5 sources) Start: 06-29-2020 End: 07-11-2020 take 1 mL by mouth twice daily as needed Magnesium Hydroxide (Milk Of Magnesia) 400 mg/5 mL suspension Discontinued 15 mL PO TWICE A DAY as needed June 29, 2020 12:00am July 11, 2020 9:08am Start: 06-29-2020 End: 07-11-2020 take 1 mL by mouth twice daily Magnesium Hydroxide (Mi lk Of Magnesia) 400 mg/5 mL suspension Discontinued 15 ML PO TWICE A DAY June 28, 2020 11:00pm May 11th, 2021 8:08am methylPREDNISolone 125 mg injection (1 source) Corticosteroid Start: 03-17-2023 End: 03-17-2023 methylPREDNISolone sod succinate (SOLU-Medrol) injection 125 mg nitroglycerin 0.4 mg sublingual tablet (20 sources) Nitrate Vasodilator Start: 05-28-2017 End: 09-02-2023 Nitroglycerin 0.4 MG tablet, sublingual Discontinued 0.4 mg SL Q5M as needed for chest pain June 11, 2020 12:00am June 22, 2020 11:48am nitroglycerin (N itrostat) 0.4 mg SL tablet DISSOLVE 1 TABLET UNDER THE TONGUE NEEDED FOR CHEST PAIN- MAY REPEAT EVERY 5 MINUTES IF NEEDED ( MAX 3 DOSES.- IF NO RELIEF CALL 911) Active Comment on above: Dissolve 1 tablet un sharon the tongue every 5 minutes as needed. norepinephrine (Levophed) 8 mg in dextrose 5% 250 mL (0.032 mg/mL) infusion (premix) (1 source) Start: 03-18-2023 End: 03-18-2023 norepinephrine (Levophed) 8 mg in dextrose 5% 250 mL (0.032 mg/mL) infusion (premix) perflutren lipid microspheres (Definity) injection 1 mL of dilution (1 source) Start: 03-18-2023 End: 03-18-2023 perflutren lipid microspheres (Definity) injection 1 mL of dilution piperacillin 4000 mg / tazobactam 500 mg injection (2 sources) Penicillin-class Antibacterial, beta Lactamase Inhibitor Start: 09-26-2024 End: 09-27-2024 4.5 g, intravenous, Administer over 0.5 Hours, Once, On 09/26/24 at 2355, For 1 dose, premix bag, Dosing of this medication varies based on severity of illness. Does this patient have sepsis or concern for sepsis (probable or documented infection plus systemic manifestations of infection)? Yes, Suspected Indication (Select all that apply): Pneumonia, Type of Therapy: Empiric, Indications: Pneumonia Start: 03-18-2023 End: 03-21-2023 take 4.5 g intravenously every six hours mxfximocwcyu-wkjzojqkah-gzzixprd (Zosyn) IV 4.5 g sennosides, correction 8.6 mg oral capsule (5 sources) Start: 06-29-2020 End: 07-11-2020 take 1 capsule by mouth twice daily Sennosides (Senna) 8.6 mg capsule Discontinued 8.6 mg PO TWICE A DAY June 29, 2020 12:00am July 11, 2020 9:09am 1000 ml sodium chloride 9 mg/ml injection (7 sources) Start: 09-26-2024 End: 09-27-2024 500 mL, intravenous, at 500 mL/hr, Administer over 1 Hours, Once, On Fri09/27/24 at 0015, For 1 dose Start: 03-17-2023 End: 03-19-2023 sodium chloride 0.9% infusio n Start: 03-17-2023 End: 03-18-2023 sodium chloride 0.9 % bolus 1,000 mL 60 actuat tiotropium 0.0025 mg/actuat inhalation spray (10 sources) Anticholinergic Start: 03-29-2021 End: 04-02-2021 take 2.5 ug by inhalation once daily Tiotropium Hooker (Spiriva Respimat) 2.5 mcg/actuation mist Discontinued 2 NMA INHALATION DAILY March 29, 2021 4:11pm April 02, 2021 4:01pm Start: 03-29-2021 End: 04-02-2021 take 1 puff(s) by inhalation once daily Tiotropium Hooker (Spiriva Respimat) 2.5 mcg/actuation mist Discontinued 2 PUFF INHALATION DAILY March 29, 2021 3:11pm April 02, 2021 3:01pm Start: 03-20-2021 End: 03-29-2021 take 2.5 ug by inhalation once daily Tiotropium Hooker (Spiriva Respimat) 2.5 mcg/actuation mist Discontinued 2 NMA INHALATION DAILY March 20, 2021 1:00am March 29, 2021 4:12pm Start: 03-20-2021 End: 03-29-2021 take 1 puff(s) by inhalation once daily Tiotropium Hooker (Spiriva Respimat) 2.5 mcg/actuation mist Discontinued 2 PUFF INHALATION DAILY March 20, 2021 12:00am March 29, 2021 3:12pm Start: 03-20-2021 End: 01-27-2022 take 1 puff(s) by inhalation once daily Tiotropium Hooker (Spiriva Respimat) 2.5 mcg/actuation mist Discontinued 2 PUFF INHALATION DAILY 4 March 20, 2021 1:00am March 29, 2021 4:12pm Umeclidinium-Vilanterol (5 sources) Anticholinergic, beta2-Adrenergic Agonist Start: 11-22-2020 End: 02-16-2021 Umeclidinium-Vilanterol (Anoro Ellipta) 62.5-25 mcg/actuation blister with device Discontinued 1 NMA INHALATION DAILY 60 November 22, 2020 12:00am February 16, 2021 2:20pm Start: 11-22-2020 End: 02-16-2021 Umeclidinium-Vilanterol (Ano ro Ellipta) 62.5-25 mcg/actuation blister with device Discontinued 1 INH INHALATION DAILY 60 November 21, 2020 11:00pm February 16, 2021 1:20pm Start: 11-22-2020 End: 02-16-2021 Umeclidinium-Vilanterol (Ano ro Ellipta) 62.5-25 mcg/actuation blister with device Discontinued 1 INH INHALATION DAILY 60 November 22, 2020 12:00am February 16, 2021 2:20pm vancomycin (Vancocin) 1,750 mg in dextrose 5 % in water (D5W) 500 mL IV (1 source) Start: 03-20-2023 End: 03-21-2023 vancomycin (Vancocin) 1,750 mg in dextrose 5 % in water (D5W) 500 mL IV vancomycin (Vancocin) in dextrose 5 % water (D5W) 500 mL IV 1,500 mg (1 source) Start: 03-18-2023 End: 03-20-2023 vancomycin (Vancocin) in dextrose 5 % water (D5W) 500 mL IV 1,500 mg Problems Active Problems Problem Classification Problem Date Documented Date Episodic/Chronic Acute bronchitis (2 sources) Acute bronchitis; Translations: [Acute bronchitis, unspecified] 03-10-2023 Episodic Acute cerebrovascular disease (20 sources) Left sided cerebral hemisphere cerebrovascular accident; Translations: [Cerebral infarction due to unspecified occlusion or stenosis of left middle cerebral artery] Onset: 05-30-2017 06-11-2020 Chronic Acute myocardial infarction (20 sources) Myocardial infarction; Translations: [Non-ST elevation (NSTEMI) myocardial infarction] Onset: 05-28-2017 Resolved: 05-28-2017 Chronic Aortic; peripheral; and visceral artery aneurysms (12 sources) Ascending aorta dilatation; Translations: [Thoracic aortic ectasia] Onset: 09-02-2023 09-02-2023 Chronic Asthma (11 sources) Asthma-chronic obstructive pulmonary disease overlap syndrome; Translations: [Asthma-chronic obstructive pulmonary disease overlap syndrome] 02-16-2021 Chronic Comment on above: Chronic prednisone Cardiac and circulatory congenital anomalies (2 sources) Congenital insufficiency of aortic valve; Translations: [Congenital insufficiency of aortic valve] Onset: 05-01-2017 Chronic Cardiac dysrhythmias (20 sources) Paroxysmal atrial fibrillation; Translations: [Paroxysmal atrial fibrillation] Onset: 11-20-2020 Chronic Chronic obstructive pulmonary disease and bronchiectasis (20 sources) Pulmonary emphysema; Translations: [Other emphysema] Onset: 08-18-2009 Resolved: 03-21-2023 03-17-2021 Chronic Comment on above: CT scan of the chest completed on December 08, 2020. Noted is a 6 mm right lower lobe subpleural nodule. Mild pulmonary emphysema. Images were personally reviewed and consistent with bronchiectasis mid to lower lobes. Congestive heart failure; nonhypertensive (20 sources) Diastolic heart failure; Translations: [Unspecified diastolic (congestive) heart failure] Onset: 03-11-2022 Chronic Coronary atherosclerosis and other heart disease (20 sources) History of non-ST segment elevation myocardial infarction; Translations: [Old myocardial infarction] Onset: 06-06-2020 Chronic Comment on above: May 2018 Disorders of lipid metabolism (20 sources) Hyperlipidemia; Translations: [Hyperlipidemia, unspecified] Onset: 05-28-2017 Chronic Essential hypertension (20 sources) Hypertensive disorder; Translations: [Essential (primary) hypertension] Onset: 11-20-2020 Chronic Heart valve disorders (14 sources) Nonrheumatic aortic (valve) insufficiency; Translations: [Nonrheumatic aortic (valve) stenosis] Onset: 05-01-2017 06-29-2020 Chronic Hyperplasia of prostate (6 sources) Benign prostatic hyperplasia; Translations: [Benign prostatic hyperplasia without lower urinary tract symptoms] 06-29-2020 Chronic Malaise and fatigue (7 sources) Asthenia; Translations: [Other malaise] 06-29-2020 Episodic Nutritional deficiencies (1 source) Vitamin D deficiency, unspecified; Translations: [Vitamin D deficiency, unspecified] Onset: 04-12-2024 Chronic Other aftercare (1 source) Encounter for surgical aftercare following surgery on the circulatory system; Translations: [Encounter for surgical aftercare following surgery on the circulatory system] Onset: 10-14-2024 Episodic Other and ill-defined cerebrovascular disease (7 sources) Cerebrovascular disease; Translations: [Cerebrovascular disease, unspecified] 12-12-2020 Chronic Comment on above: Left MCA distributio n stroke 06/2020 Other and ill-defined heart disease (5 sources) Left ventricular hypertrophy; Translations: [Cardiomegaly] 06-29-2020 Chronic Other circulatory disease (5 sources) Disorder of carotid artery; Translations: [Disorder of arteries and arterioles, unspecified] 12-12-2020 Chronic Other circulatory disease (1 source) Disorder of arteries and arterioles, unspecified; Translations: [Disorder of arteries and arterioles, unspecified] Onset: 04-12-2024 Chronic Other circulatory disease (2 sources) Hypotension, unspecified; Translations: [Hypotension, unspecified] Onset: 09-27-2024 Episodic Other lower respiratory disease (1 source) Dyspnea on exertion; Translations: [Shortness of breath] Episodic Other lower respiratory disease (6 sources) Nodule of lung; Translations: [Solitary pulmonary nodule] 03-17-2024 Episodic Other lower respiratory disease (4 sources) Hypoxia; Translations: [Hypoxemia] 07-25-2023 Episodic Other lower respiratory disease (1 source) Hypoxemia; Translations: [Hypoxemia] Onset: 10-14-2024 Episodic Other nervous system disorders (1 source) Difficulty walking; Translations: [Difficulty in walking, not elsewhere classified] 03-21-2023 Chronic Frannie-; endo-; and myocarditis; cardiomyopathy (except that caused by tuberculosis or sexually transmitted disease) (1 source) Cardiomyopathy; Translations: [Other cardiomyopathies] Chronic Peripheral and visceral atherosclerosis (2 sources) Peripheral vascular disease; Translations: [Peripheral vascular disease, unspecified] 03-21-2023 Chronic Residual codes; unclassified (9 sources) Obstructive sleep apnea syndrome; Translations: [Obstructive sleep apnea (adult) (pediatric)] 09-20-2021 Chronic Comment on above: Noncompliant Residual codes; unclassified (4 sources) Obstructive sleep apnea (adult) (pediatric); Translations: [Obstructive sleep apnea (adult)(pediatric)] Onset: 09-27-2024 Chronic Residual codes; unclassified (5 sources) Snuff user; Translations: [Tobacco use] 06-29-2020 Episodic Residual codes; unclassified (2 sources) Localized edema; Translations: [Localized edema] Onset: 09-27-2024 Episodic Respiratory failure; insufficiency; arrest (adult) (2 sources) Acute respiratory failure, unspecified whether with hypoxia or hypercapnia; Translations: [Acute respiratory failure, unspecified whether with hypoxia or hypercapnia] Onset: 09-27-2024 Episodic Septicemia (except in labor) (1 source) Septic shock; Translations: [Sepsis, unspecified organism] 03-18-2023 Episodic Shock (1 source) Shock; Translations: [Shock, unspecified] 03-18-2023 Episodic Skin and subcutaneous tissue infections (6 sources) Cellulitis of left upper limb; Translations: [Cellulitis of left upper limb] 03-10-2023 Episodic Thyroid disorders (7 sources) Hypothyroidism; Translations: [Hypothyroidism, unspecified] Onset: 04-12-2024 04-09-2021 Chronic Unclassified (1 source) Infrarenal abdominal aortic aneurysm, ruptured; Translations: [Infrarenal abdominal aortic aneurysm, ruptured] Onset: 09-27-2024 Unclassified (1 source) Pararenal abdominal aortic aneurysm, ruptured (Multi); Translations: [Pararenal abdominal aortic aneurysm, ruptured (Multi)] Onset: 09-26-2024 Unclassified (1 source) Abdominal aortic aneurysm, without rupture, unspecified; Translations: [Abdominal aortic aneurysm, without rupture, unspecified] Onset: 09-27-2024 Unclassified (1 source) Heparin-induced thrombocytopenia, unspecified (Multi); Translations: [Heparin-induced thrombocytopenia, unspecified (Multi)] Onset: 09-27-2024 Unclassified (1 source) Abdominal aortic aneurysm, ruptured, unspecified; Translations: [Abdominal aortic aneurysm, ruptured, unspecified] Onset: 10-14-2024 Viral infection (1 source) Disease caused by nCoV; Translations: [Other specified viral infection] 03-17-2021 Episodic Viral infection (4 sources) Disease caused by 2018-nCoV 03-17-2021 Comment on above: WORSENING COVID SYMP TOMS Past or Other Problems Problem Classification Problem Date Documented Da te Episodic/Chronic Coronary atherosclerosis and other heart disease (20 sources) Post percutaneous transluminal coronary angioplasty; Translations: [Coronary angioplasty status] Onset: 11-20-2020 11-20-2020 Episodic Diabetes mellitus without complication (1 source) Hyperglycemia, unspecified; Translations: [Hyperglycemia, unspecified] Onset: 04-12-2024 Episodic Genitourinary symptoms and ill-defined conditions (18 sources) Delay when starting to pass urine; Translations: [Hesitancy of micturition] Onset: 05-30-2017 05-30-2017 Episodic Nonspecific chest pain (5 sources) Chest pain; Translations: [Chest pain, unspecified] Onset: 05-27-2017 Resolved: 05-28-2017 05-28-2017 Episodic Other aftercare (14 sources) Long-term current use of anticoagulant; Translations: [USP (current) use of anticoagulants] Onset: 03-04-2023 06-29-2020 Episodic Other aftercare (4 sources) USP (current) use of anticoagulants; Translations: [Long-term (current) use of anticoagulants] Onset: 03-04-2023 04-14-2023 Episodic Other lower respiratory disease (15 sources) Dyspnea; Translations: [Shortness of breath] Onset: 03-11-2022 Episodic Other lower respiratory disease (3 sources) Other forms of dyspnea; Translations: [Dyspnea on exertion] Onset: 03-29-2022 Episodic Other lower respiratory disease (2 sources) Cough; Translations: [Cough] Onset: 04-03-2024 Episodic Other lower respiratory disease (1 source) Solitary pulmonary nodule; Translations: [Solitary pulmonary nodule] Onset: 04-20-2024 Episodic Other screening for suspected conditions (not mental disorders or infectious disease) (6 sources) Raised prostate specific antigen; Translations: [Elevated prostate specific antigen [PSA]] Onset: 04-12-2024 10-13-2020 Episodic Other upper respiratory infections (7 sources) Viral upper respiratory tract infection; Translations: [Acute upper respiratory infection, unspecified] Onset: 11-17-2023 02-19-2022 Episodic Screening and history of mental health and substance abuse codes (7 sources) Ex-smoker; Translations: [Personal history of nicotine dependence] Onset: 04-12-2024 05-24-2022 Episodic Comment on above: 40 pack years quit 1 Unclassified (1 source) Infrarenal abdominal aortic aneurysm, ruptured; Translations: [Infrarenal abdominal aortic aneurysm, ruptured] Onset: 09-26-2024 Unclassified (1 source) Pararenal abdominal aortic aneurysm, ruptured (Multi); Translations: [Pararenal abdominal aortic aneurysm, ruptured (Multi)] Onset: 09-26-2024 Unclassified (1 source) Abdominal aortic aneurysm, without rupture, unspecified; Translations: [Abdominal aortic aneurysm, without rupture, unspecified] Onset: 09-27-2024 Unclassified (1 source) Heparin-induced thrombocytopenia, unspecified (Multi); Translations: [Heparin-induced thrombocytopenia, unspecified (Multi)] Onset: 09-27-2024 Urinary tract infections (14 sources) Urinary tract infectious disease; Translations: [Urinary tract infection, site not specified] Onset: 05-28-2017 05-30-2017 Episodic Results Test Name Value Interpretation Reference Range Facility Abdomen Single Viewon 2024 Abdomen Single View [facility] [address] [place] [id number] Abdomen Single View MR#: [id number] Acct: [id number] Name: CHERYL DE LA FUENTE Jr. Rep #: [id number] : 1950 M 73 From: Galen Schrader MD PCP: Dr. Ashlee Lanier MD Status: ADM IN Study: Abdomen Single View Date of Exam: 10/17/24 Exam# [id number] Ordering Dr: Norris Olmedo MD PROCEDURE: ABDOMEN SINGLE VIEW 10/17/2024 REASON FOR EXAM: ILEUS TECHNIQUE: ABDOMEN SINGLE VIEW COMPARISON: 10/14/2024 CT. 10/15/2024 radiograph. FINDINGS: Dilated loops of bowel throughout the abdomen which may represent ileus or obstruction. No subdiaphragmatic free air. Aorto bi-iliac stent grafts. RAD/Abdomen Single View IMPRESSION: Diffusely dilated loops of small bowel which may represent ileus versus obstruction. Reading Location: [facility] CC: Dr. Ashlee Lanier MD; Dr. Norris Olmedo MD Fiber Locking Supervisor: Signed Normal [facility] Basic Metabolic Profile (BMP )on 10-16-2024 BUN/CRE 23.4 RATIO High 10-20 [facility] Comment on above: Performed By: #### L 100.0100, L500.2500 ####[facility] [address] [place], [address] Calcium [Mass/Vol] 8.4 mg/dL Normal 7.6-11.0 [facility] Comment on above: Performed By: #### L 100.0100, L500.2500 ####[facility] [address] [place], [address] Chloride [Moles/Vol] 105 mmol/L Normal 98-108 [facility] Comment on above: Performed By: #### L 100.0100, L500.2500 ####[facility] [address] [place], [address] CO2 [Moles/Vol] 21.5 mmol/L Normal 21.0-32.0 [facility] Comment on above: Performed By: #### L 100.0100, L500.2500 ####[facility] [address] [place], [address] Creatinine [Mass/Vol] 1.03 mg/dL Normal 0.70-1.20 [facility] Comment on above: Performed By: #### L 100.0100, L500.2500 ####[facility] [address] [place], [address] ECRCL 70.03 ml/min Normal 50-250 [facility] Comment on above: Performed By: #### L 100.0100, L500.2500 ####[facility] [address] [place], [address] GAP 10 Normal 5-15 [facility] Comment on above: Performed By: #### L 100.0100, L500.2500 ####[facility] [address] [place], [address] GFR/1.73 sq M.predicted among non-blacks MDRD (S/P/Bld) [Vol rate/Area] 76 mL/min/{1.73_m2} Normal >60 [facility] Comment on above: Result Comment: mL/m in/1.73m2 CKD-EPI Creatinine Equation (2020) Performed By: #### L 100.0100, L500.2500 ####[facility] [address] [place], [address] Glucose [Mass/Vol] 104 mg/dL High 70-99 [facility] Comment on above: Performed By: #### L 100.0100, L500.2500 ####[facility] [address] [place], [address] Potassium [Moles/Vol] 4.1 mmol/L Normal 3.3-5.1 [facility] Comment on above: Performed By: #### L 100.0100, L500.2500 ####[facility] [address] [place], [address] Sodium [Moles/Vol] 137 mmol/L Normal 133-145 [facility] Comment on above: Performed By: #### L 100.0100, L500.2500 ####[facility] [address] [place], [address] Urea nitrogen [Mass/Vol] 24 mg/dL High -19 [facility] Comment on above: Performed By: #### L 100.0100, L500.2500 ####[facility] [address] [place], [address] CBC W/Diff, Automatedon 10-01 Absolute Lymph 0.80 X10 3/uL Low 0.83-4.51 [facility] Comment on above: Performed By: #### L 100.0100, L500.2500 ####[facility] [address] [place], [address] Absolute Neut 13.5 X10 3/uL High 2.0-7.7 [facility] Comment on above: Performed By: #### L 100.0100, L500.2500 ####[facility] [address] [place], [address] Basophils/100 WBC (Bld) 0.2 % Normal 0-1 [facility] Comment on above: Performed By: #### L 100.0100, L500.2500 ####[facility] [address] [place], [address] Eosinophils/100 WBC (Bld) 0.2 % Normal 0-5 [facility] Comment on above: Performed By: #### L 100.0100, L500.2500 ####[facility] [address] [place], [address] Erythrocyte distribution width (RBC) [Ratio] 16.6 % High 11.6-14.6 [facility] Comment on above: Performed By: #### L 100.0100, L500.2500 ####[facility] [address] [place], [address] Hematocrit (Bld) [Volume fraction] 29.3 % Low 40-54 [facility] Comment on above: Performed By: #### L 100.0100, L500.2500 ####[facility] [address] [place], [address] Hemoglobin (Bld) [Mass/Vol] 9.3 g/dL Low 13.0-16.5 [facility] Comment on above: Performed By: #### L 100.0100, L500.2500 ####[facility] [address] [place], [address] IG% 0.700 Normal 0.0-0.9 [facility] Comment on above: Result Comment: IG% - Immature Granulocytes (promyelocytes, myelocytes and metamyelocytes) > 1% indicates that a LEFT SHIFT is Present. Performed By: #### L 100.0100, L500.2500 ####[facility] [address] [place], [address] Lymphocytes/100 WBC (Bld) 5.2 % Low 19-41 [facility] Comment on above: Performed By: #### L 100.0100, L500.2500 ####[facility] [address] [place], [address] MCH (RBC) [Entitic mass] 29.2 pg Normal 27.0-32.0 [facility] Comment on above: Performed By: #### L 100.0100, L500.2500 ####[facility] [address] [place], [address] MCHC (RBC) [Mass/Vol] 31.7 g/dL Low 32-36 [facility] Comment on above: Performed By: #### L 100.0100, L500.2500 ####[facility] [address] [place], [address] MCV (RBC) [Entitic vol] 91.8 fL Normal 80-94 [facility] Comment on above: Performed By: #### L 100.0100, L500.2500 ####[facility] [address] [place], [address] Monocytes/100 WBC (Bld) 5.3 % Normal 0-10 [facility] Comment on above: Performed By: #### L 100.0100, L500.2500 ####[facility] [address] [place], [address] Neutrophils/100 WBC (Bld) 88.4 % High 47-70 [facility] Comment on above: Performed By: #### L 100.0100, L500.2500 ####[facility] [address] [place], [address] Nucleated RBC (Bld) [#/Vol] 0 10*3/uL Normal 0-5 [facility] Comment on above: Performed By: #### L 100.0100, L500.2500 ####[facility] [address] [place], [address] Platelet mean volume (Bld) [Entitic vol] 8.9 fL Normal 6.2-12.0 [facility] Comment on above: Performed By: #### L 100.0100, L500.2500 ####[facility] [address] [place], [address] Platelets (Bld) [#/Vol] 326 10*3/uL Normal 150-450 [facility] Comment on above: Performed By: #### L 100.0100, L500.2500 ####[facility] [address] [place], [address] RBC (Bld) [#/Vol] 3.19 10*6/uL Low 4.6-6.2 [facility] [facility] Comment on above: Performed By: #### L 100.0100, L500.2500 ####[facility] [address] [place], [address] RDW SD 55.0 fl High 35.1-43.9 [facility] Comment on above: Performed By: #### L 100.0100, L500.2500 ####[facility] [address] [place], [address] WBC (Bld) [#/Vol] 15.3 10*3/uL High 4.4-11.0 [facility] Comment on above: Performed By: #### L 100.0100, L500.2500 ####[facility] [address] [place], [place], [address] Abdomen Single Viewon 2024 Abdomen Single View [facility] Imaging Services [address] [place], [place] [address] Abdomen Single View MR#: [id number] Acct: [id number] Name: CHERYL DE LA FUENTE Jr. Rep #: [id number] : 1950 M 73 From: Stanley Hyatt MD PCP: Dr. Ashlee Lanier MD Status: ADM IN Study: Abdomen Single View Date of Exam: 10/15/24 Exam# [id number] Ordering Dr: Norris Olmedo MD PROCEDURE: ABDOMEN SINGLE VIEW 10/15/2024 REASON FOR EXAM: ABDOMINAL DISTENTION TECHNIQUE: ABDOMEN SINGLE VIEW FINDINGS: Bowel gas: Mild gaseous distention of small and large bowel loops. Bowel gas pattern appears more suggestive of an abdominal ileus than obstruction. Calcifications: No suspicious calcifications. Bones: There are degenerative changes of the spine. Other: Aortoiliac vascular stent present. RAD/Abdomen Single View IMPRESSION: BOWEL GAS PATTERN MOST SUGGESTIVE OF ILEUS. Reading Location: [facility] CC: Dr. Ashlee Lanier MD; Dr. Norris Olmedo MD [employer] Supervisor: Signed Normal [facility] CBC W/Diff, Automatedon 10-01 Absolute Lymph 0.48 X10 3/uL Low 0.83-4.51 [facility] Comment on above: Performed By: #### L 100.0100 ####[facility] [address] [place], [place], [id number] Absolute Neut 17.7 X10 3/uL High 2.0-7.7 [facility] Comment on above: Performed By: #### L 100.0100 ####[facility] [address] [place], [place], [id number] Basophils/100 WBC (Bld) 0.2 % Normal 0-1 [facility] Comment on above: Performed By: #### L 100.0100 ####[facility] [address] [place], [address] Eosinophils/100 WBC (Bld) 0.1 % Normal 0-5 [facility] Comment on above: Performed By: #### L 100.0100 ####[facility] [address] [place], [address] Erythrocyte distribution width (RBC) [Ratio] 16.9 % High 11.6-14.6 [facility] Comment on above: Performed By: #### L 100.0100 ####[facility] [address] [place], [address] Hematocrit (Bld) [Volume fraction] 32.3 % Low 40-54 [facility] Comment on above: Performed By: #### L 100.0100 ####[facility] [address] [place], [address] Hemoglobin (Bld) [Mass/Vol] 10.3 g/dL Low 13.0-16.5 [facility] Comment on above: Performed By: #### L 100.0100 ####[facility] [address] [place], [address] IG% 0.900 Normal 0.0-0.9 [facility] Comment on above: Result Comment: IG% - Immature Granulocytes (promyelocytes, myelocytes and metamyelocytes) > 1% indicates that a LEFT SHIFT is Present. Performed By: #### L 100.0100 ####[facility] [address] [place], [address] Lymphocytes/100 WBC (Bld) 2.5 % Low 19-41 [facility] Comment on above: Performed By: #### L 100.0100 ####[facility] [address] [place], [address] MCH (RBC) [Entitic mass] 29.4 pg Normal 27.0-32.0 [facility] Comment on above: Performed By: #### L 100.0100 ####[facility] [address] [place], [address] MCHC (RBC) [Mass/Vol] 31.9 g/dL Low 32-36 [facility] Comment on above: Performed By: #### L 100.0100 ####[facility] [address] [place], [address] MCV (RBC) [Entitic vol] 92.3 fL Normal 80-94 [facility] Comment on above: Performed By: #### L 100.0100 ####[facility] [address] [place], [address] Monocytes/100 WBC (Bld) 5.0 % Normal 0-10 [facility] Comment on above: Performed By: #### L 100.0100 ####[facility] [address] [place], [address] Neutrophils/100 WBC (Bld) 91.3 % High 47-70 [facility] Comment on above: Performed By: #### L 100.0100 ####[facility] [address] [place], [address] Nucleated RBC (Bld) [#/Vol] 0 10*3/uL Normal 0-5 [facility] Comment on above: Performed By: #### L 100.0100 ####[facility] [address] [place], [address] Platelet mean volume (Bld) [Entitic vol] 9.0 fL Normal 6.2-12.0 [facility] Comment on above: Performed By: #### L 100.0100 ####[facility] [address] [place], [address] Platelets (Bld) [#/Vol] 343 10*3/uL Normal 150-450 [facility] Comment on above: Performed By: #### L 100.0100 ####[facility] [address] [place], [address] RBC (Bld) [#/Vol] 3.50 10*6/uL Low 4.6-6.2 [facility] Comment on above: Performed By: #### L 100.0100 ####[facility] [address] [place], [address] RDW SD 56.9 fl High 35.1-43.9 [facility] Comment on above: Performed By: #### L 100.0100 ####[facility] [address] [place], [address] WBC (Bld) [#/Vol] 19.4 10*3/uL High 4.4-11.0 [facility] Comment on above: Performed By: #### L 100.0100 ####[facility] [address] [place], [address] Absolute Neut Normal 2.0-7.7 [facility] Comment on above: Result Comment: Canc elled via OM: MD Ordered Performed By: #### L 100.0100 ####[facility] [address] [place], [address] HCT Normal 40-54 [facility] Comment on above: Result Comment: Canc elled via OM: MD Ordered Performed By: #### L 100.0100 ####[facility] [address] [place], [address] HGB Normal 13.0-16.5 [facility] Comment on above: Result Comment: Canc mattyed via OM: MD Ordered Performed By: #### L 100.0100 ####[facility] [address] [place], [address] MCH Normal 27.0-32.0 [facility] Comment on above: Result Comment: Canc elled via OM: MD Ordered Performed By: #### L 100.0100 ####[facility] [address] [place], [address] MCHC Normal 32-36 [facility] Comment on above: Result Comment: Canc elled via OM: MD Ordered Performed By: #### L 100.0100 ####[facility] [address] [place], [address] MCV Normal 80-94 [facility] Comment on above: Result Comment: Canc elled via OM: MD Ordered Performed By: #### L 100.0100 ####[facility] [address] [place], [address] NEUT% Normal 47-70 [facility] Comment on above: Result Comment: Canc elled via OM: MD Ordered Performed By: #### L 100.0100 ####[facility] [address] [place], [address] PLT Normal 150-450 [facility] Comment on above: Result Comment: Canc elled via OM: MD Ordered Performed By: #### L 100.0100 ####[facility] [address] [place], [address] RBC Normal 4.6-6.2 [facility] Comment on above: Result Comment: Canc elled via OM: MD Ordered Performed By: #### L 100.0100 ####[facility] [address] [place], [address] RDW CV Normal 11.6-14.6 [facility] Comment on above: Result Comment: Canc elled via OM: MD Ordered Performed By: #### L 100.0100 ####[facility] [address] [place], [address] RDW SD Normal 35.1-43.9 [facility] Comment on above: Result Comment: Canc elled via OM: MD Ordered Performed By: #### L 100.0100 ####[facility] [address] [place], [address] WBC Normal 4.4-11.0 [facility] Comment on above: Result Comment: Canc elled via OM: MD Ordered Performed By: #### L 100.0100 ####[facility] [address] [place], [address] Absolute Neut Normal 2.0-7.7 [facility] Comment on above: Result Comment: Canc elled via OM: Order edited - Discontinuing original order Performed By: #### L 500.4050, L100.0100 ####[facility] [address] [place], [address] HCT Normal 40-54 [facility] Comment on above: Result Comment: Canc elled via OM: Order edited - Discontinuing original order Performed By: #### L 500.4050, L100.0100 ####[facility] [address] [place], [address] HGB Normal 13.0-16.5 [facility] Comment on above: Result Comment: Canc elled via OM: Order edited - Discontinuing original order Performed By: #### L 500.4050, L100.0100 ####[facility] [address] [place], [address] MCH Normal 27.0-32.0 [facility] Comment on above: Result Comment: Canc elled via OM: Order edited - Discontinuing original order Performed By: #### L 500.4050, L100.0100 ####[facility] [address] [place], [address] MCHC Normal 32-36 [facility] Comment on above: Result Comment: Canc elled via OM: Order edited - Discontinuing original order Performed By: #### L 500.4050, L100.0100 ####[facility] [address] [place], [address] MCV Normal 80-94 [facility] Comment on above: Result Comment: Canc elled via OM: Order edited - Discontinuing original order Performed By: #### L 500.4050, L100.0100 ####[facility] [address] [place], [address] NEUT% Normal 47-70 [facility] Comment on above: Result Comment: Canc elled via OM: Order edited - Discontinuing original order Performed By: #### L 500.4050, L100.0100 ####[facility] [address] [place], [address] PLT Normal 150-450 [facility] Comment on above: Result Comment: Canc elled via OM: Order edited - Discontinuing original order Performed By: #### L 500.4050, L100.0100 ####[facility] [address] [place], [address] RBC Normal 4.6-6.2 [facility] Comment on above: Result Comment: Canc elled via OM: Order edited - Discontinuing original order Performed By: #### L 500.4050, L100.0100 ####[facility] [address] [place], [address] RDW CV Normal 11.6-14.6 [facility] Comment on above: Result Comment: Canc elled via OM: Order edited - Discontinuing original order Performed By: #### L 500.4050, L100.0100 ####[facility] [address] [place], [address] RDW SD Normal 35.1-43.9 [facility] Comment on above: Result Comment: Canc elled via OM: Order edited - Discontinuing original order Performed By: #### L 500.4050, L100.0100 ####[facility] [address] [place], [address] WBC Normal 4.4-11.0 [facility] Comment on above: Result Comment: Canc elled via OM: Order edited - Discontinuing original order Performed By: #### L 500.4050, L100.0100 ####[facility] [address] [place], [address] Chest PA and Lateralon 10-15 Chest PA and Lateral [facility] Imaging Services [address] [place] [address] Chest PA and Lateral MR#: [id number] Acct: [id number] Name: CHERYL DE LA FUENTE Jr. Rep #: [id number] : 1950 M 73 From: Carlos Echevarria MD PCP: Dr. Ashlee Lanier MD Status: ADM IN Study: Chest PA and Lateral Date of Exam: 10/15/24 Exam# [id number] Ordering Dr: Norris Olmedo MD PROCEDURE: CHEST PA AND LATERAL 10/15/2024 REASON FOR EXAM: SHORTNESS OF BREATH TECHNIQUE: CHEST PA AND LATERAL COMPARISON: Chest x-ray 02/11/2022 FINDINGS: Hardware: Partially visualized endovascular stent graft. Surgical clips are visualized within Heart: Mild stable cardiomegaly. Coronary stents are visualized Mediastinum: There are atherosclerotic calcifications of the thoracic aorta. Lungs: Patchy opacity within right lung base. Calcified granulomas scattered throughout the lungs. Bones: Degenerative changes are identified within the thoracic spine. RAD/Chest PA and Lateral IMPRESSION: Patchy opacity within right lung base concerning for underlying infectious/inflammato ry process. Bilateral pulmonary vascular congestion. Reading Location: [id number] CC: Dr. Ashlee Lanier MD; Dr. Norris Olmedo MD [employer] Supervisor: Signed Normal [facility] Comprehensive Metabolic Prof ilon 10-15-2024 Albumin [Mass/Vol] 3.3 g/dL Low 3.4-4.8 [facility] Comment on above: Performed By: #### L 501.5200, L501.2300, L500.4050 ####[facility] [address] [place], [address] Albumin/Globulin [Mass ratio] 1.1 {ratio} Normal 0.9-2.4 [facility] Comment on above: Performed By: #### L 501.5200, L501.2300, L500.4050 ####[facility] [address] [place], [address] ALK PHOS 88 U/L Normal 40-129 [facility] Comment on above: Performed By: #### L 501.5200, L501.2300, L500.4050 ####[facility] [address] [place], [address] ALT [Catalytic activity/Vol] 40 U/L Normal <=46 [facility] Comment on above: Performed By: #### L 501.5200, L501.2300, L500.4050 ####[facility] [address] [place], [address] AST [Catalytic activity/Vol] 61 U/L High <=37 [facility] Comment on above: Performed By: #### L 501.5200, L501.2300, L500.4050 ####[facility] [address] [place], [address] Bilirubin [Mass/Vol] 1.53 mg/dL High 0.00-1.30 [facility] Comment on above: Performed By: #### L 501.5200, L501.2300, L500.4050 ####[facility] [address] [place], [address] BUN/CRE 21.7 RATIO High 10-20 [facility] Comment on above: Performed By: #### L 501.5200, L501.2300, L500.4050 ####[facility] [address] [place], [address] Calcium [Mass/Vol] 8.6 mg/dL Normal 7.6-11.0 [facility] Comment on above: Performed By: #### L 501.5200, L501.2300, L500.4050 ####[facility] [address] [place], [address] Chloride [Moles/Vol] 103 mmol/L Normal 98-108 [facility] Comment on above: Performed By: #### L 501.5200, L501.2300, L500.4050 ####[facility] [address] [place], [address] CO2 [Moles/Vol] 21.0 mmol/L Normal 21.0-32.0 [facility] Comment on above: Performed By: #### L 501.5200, L501.2300, L500.4050 ####[facility] [address] [place], [address] Creatinine [Mass/Vol] 1.11 mg/dL Normal 0.70-1.20 [facility] Comment on above: Performed By: #### L 501.5200, L501.2300, L500.4050 ####[facility] [address] [place], [address] ECRCL 64.98 ml/min Normal 50-250 [facility] Comment on above: Performed By: #### L 501.5200, L501.2300, L500.4050 ####[facility] [address] [place], [address] GAP 14 Normal 5-15 [facility] Comment on above: Performed By: #### L 501.5200, L501.2300, L500.4050 ####[facility] [address] [place], [address] GFR/1.73 sq M.predicted among non-blacks MDRD (S/P/Bld) [Vol rate/Area] 69 mL/min/{1.73_m2} Normal >60 [facility] Comment on above: Result Comment: mL/m in/1.73m2 CKD-EPI Creatinine Equation (2020) Performed By: #### L 501.5200, L501.2300, L500.4050 ####[facility] [address] [place], [address] Globulin (S) [Mass/Vol] 2.9 g/dL Normal 2.2-4.2 [facility] Comment on above: Performed By: #### L 501.5200, L501.2300, L500.4050 ####[facility] [address] [place], [address] Glucose [Mass/Vol] 108 mg/dL High 70-99 [facility] Comment on above: Performed By: #### L 501.5200, L501.2300, L500.4050 ####[facility] [address] [place], [address] Potassium [Moles/Vol] 4.5 mmol/L Normal 3.3-5.1 [facility] Comment on above: Performed By: #### L 501.5200, L501.2300, L500.4050 ####[facility] [address] [place], [address] Sodium [Moles/Vol] 138 mmol/L Normal 133-145 [facility] Comment on above: Performed By: #### L 501.5200, L501.2300, L500.4050 ####[facility] [address] [place], [address] T PROT 6.2 g/dL Normal 5.9-8.4 [facility] Comment on above: Performed By: #### L 501.5200, L501.2300, L500.4050 ####[facility] [address] [place], [address] Urea nitrogen [Mass/Vol] 24 mg/dL High 4-19 [facility] Comment on above: Performed By: #### L 501.5200, L501.2300, L500.4050 ####[facility] [address] [place], [address] ALB Normal 3.4-4.8 [facility] Comment on above: Result Comment: DUPL ICATE Performed By: #### L 500.4050 ####[facility] [address] [place], [address] ALK PHOS Normal 40-129 [facility] Comment on above: Result Comment: DUPL ICATE Performed By: #### L 500.4050 ####[facility] [address] [place], [address] ALT Normal <=46 [facility] Comment on above: Result Comment: DUPL ICATE Performed By: #### L 500.4050 ####[facility] [address] [place], [address] AST Normal <=37 [facility] Comment on above: Result Comment: DUPL ICATE Performed By: #### L 500.4050 ####[facility] [address] [place], [address] BUN Normal 4-19 [facility] Comment on above: Result Comment: DUPL ICATE Performed By: #### L 500.4050 ####[facility] [address] [place], [address] BUN/CRE Normal 10-20 [facility] Comment on above: Result Comment: DUPL ICATE Performed By: #### L 500.4050 ####[facility] [address] [place], [address] Calcium Normal 7.6-11.0 [facility] Comment on above: Result Comment: DUPL ICATE Performed By: #### L 500.4050 ####[facility] [address] [place], [address] CL Normal 98-108 [facility] Comment on above: Result Comment: DUPL ICATE Performed By: #### L 500.4050 ####[facility] [address] [place], [address] CO2 Normal 21.0-32.0 [facility] Comment on above: Result Comment: DUPL ICATE Performed By: #### L 500.4050 ####[facility] [address] [place], [address] CREAT,SERUM Normal 0.70-1.20 [facility] Comment on above: Result Comment: DUPL ICATE Performed By: #### L 500.4050 ####[facility] [address] [place], [address] eGFR Normal >60 [facility] Comment on above: Result Comment: DUPL ICATE Performed By: #### L 500.4050 ####[facility] [address] [place], [address] GAP Normal 5-15 [facility] Comment on above: Result Comment: DUPL ICATE Performed By: #### L 500.4050 ####[facility] [address] [place], [address] GLU Normal 70-99 [facility] Comment on above: Result Comment: DUPL ICATE Performed By: #### L 500.4050 ####[facility] [address] [place], [address] Potassium Normal 3.3-5.1 [facility] Comment on above: Result Comment: DUPL ICATE Performed By: #### L 500.4050 ####[facility] [address] [place], [address] T BILI Normal 0.00-1.30 [facility] Comment on above: Result Comment: DUPL ICATE Performed By: #### L 500.4050 ####[facility] [address] [place], [address] T PROT Normal 5.9-8.4 [facility] Comment on above: Result Comment: DUPL ICATE Performed By: #### L 500.4050 ####[facility] [address] [place], [address] Comprehensive Metabolic Profil Normal 133-145 [facility] Comment on above: Result Comment: DUPL ICATE Performed By: #### L 500.4050 ####[facility] [address] [place], [address] ALB Normal 3.4-4.8 [facility] Comment on above: Result Comment: Canc elled via OM: Order edited - Discontinuing original order Performed By: #### L 500.4050, L100.0100 ####[facility] [address] [place], [address] ALK PHOS Normal 40-129 [facility] Comment on above: Result Comment: Canc elled via OM: Order edited - Discontinuing original order Performed By: #### L 500.4050, L100.0100 ####[facility] [address] [place], [address] ALT Normal <=46 [facility] Comment on above: Result Comment: Canc elled via OM: Order edited - Discontinuing original order Performed By: #### L 500.4050, L100.0100 ####[facility] [address] [place], [address] AST Normal <=37 [facility] Comment on above: Result Comment: Canc elled via OM: Order edited - Discontinuing original order Performed By: #### L 500.4050, L100.0100 ####[facility] [address] [place], [address] BUN Normal 4-19 [facility] Comment on above: Result Comment: Canc elled via OM: Order edited - Discontinuing original order Performed By: #### L 500.4050, L100.0100 ####[facility] [address] [place], [address] BUN/CRE Normal 10-20 [facility] Comment on above: Result Comment: Canc elled via OM: Order edited - Discontinuing original order Performed By: #### L 500.4050, L100.0100 ####[facility] [address] [place], [address] Calcium Normal 7.6-11.0 [facility] Comment on above: Result Comment: Canc elled via OM: Order edited - Discontinuing original order Performed By: #### L 500.4050, L100.0100 ####[facility] [address] [place], [address] CL Normal 98-108 [facility] Comment on above: Result Comment: Canc elled via OM: Order edited - Discontinuing original order Performed By: #### L 500.4050, L100.0100 ####[facility] [address] [place], [address] CO2 Normal 21.0-32.0 [facility] Comment on above: Result Comment: Canc elled via OM: Order edited - Discontinuing original order Performed By: #### L 500.4050, L100.0100 ####[facility] [address] [place], [address] CREAT,SERUM Normal 0.70-1.20 [facility] Comment on above: Result Comment: Canc elled via OM: Order edited - Discontinuing original order Performed By: #### L 500.4050, L100.0100 ####[facility] [address] [place], [address] eGFR Normal >60 [facility] Comment on above: Result Comment: Canc elled via OM: Order edited - Discontinuing original order Performed By: #### L 500.4050, L100.0100 ####[facility] [address] [place], [address] GAP Normal 5-15 [facility] Comment on above: Result Comment: Canc elled via OM: Order edited - Discontinuing original order Performed By: #### L 500.4050, L100.0100 ####[facility] [address] [place], [address] GLU Normal 70-99 [facility] Comment on above: Result Comment: Canc elled via OM: Order edited - Discontinuing original order Performed By: #### L 500.4050, L100.0100 ####[facility] [address] [place], [address] Potassium Normal 3.3-5.1 [facility] Comment on above: Result Comment: Canc elled via OM: Order edited - Discontinuing original order Performed By: #### L 500.4050, L100.0100 ####[facility] [address] [place], [address] T BILI Normal 0.00-1.30 [facility] Comment on above: Result Comment: Canc elled via OM: Order edited - Discontinuing original order Performed By: #### L 500.4050, L100.0100 ####[facility] [address] [place], [address] T PROT Normal 5.9-8.4 [facility] Comment on above: Result Comment: Canc elled via OM: Order edited - Discontinuing original order Performed By: #### L 500.4050, L100.0100 ####[facility] [address] [place], [address] Comprehensive Metabolic Profil Normal 133-145 [facility] Comment on above: Result Comment: Canc elled via OM: Order edited - Discontinuing original order Performed By: #### L 500.4050, L100.0100 ####[facility] [address] [place], [address] Magnesiumon 10-15-2024 Magnesium [Mass/Vol] 1.9 mg/dL Normal 1.5-2.2 [facility] Comment on above: Performed By: #### L 501.5200, L501.2300, L500.4050 ####[facility] [address] [place], [address] Phosphoruson 10-15-2024 Phosphate [Mass/Vol] 2.2 mg/dL Low 2.7-4.5 [facility] Comment on above: Performed By: #### L 501.5200, L501.2300, L500.4050 ####[facility] [address] [place], [address] Pro- Brain NATRIURETIC PEPTI Mirna 10-15-2024 Natriuretic peptide B (Bld) [Mass/Vol] 833 pg/mL Normal <=1800 [facility] Comment on above: Result Comment: Hear t Failure Unlikely: < 300 pg/mL Heart Failure Likely < 50 Years: > 450 pg/mL 50-75 Years: > 900 pg/mL >75 Years: > 1800 pg/mL Performed By: #### L 503.7505 ####[facility] [address] [place], [address] Basic Metabolic Profile (BMP )on 10-14-2024 BUN/CRE 23.1 RATIO High 10-20 [facility] Comment on above: Performed By: #### L 100.0100, L500.2500 #### [facility] [address] [place], [address] Calcium [Mass/Vol] 8.5 mg/dL Normal 7.6-11.0 [facility] Comment on above: Performed By: #### L 100.0100, L500.2500 #### [facility] [address] [place], [address] Chloride [Moles/Vol] 103 mmol/L Normal 98-108 [facility] Comment on above: Performed By: #### L 100.0100, L500.2500 #### [facility] [address] [place], [address] CO2 [Moles/Vol] 24.5 mmol/L Normal 21.0-32.0 [facility] Comment on above: Performed By: #### L 100.0100, L500.2500 #### [facility] [address] [place], [address] Creatinine [Mass/Vol] 0.89 mg/dL Normal 0.70-1.20 [facility] Comment on above: Performed By: #### L 100.0100, L500.2500 #### [facility] [address] [place], [address] ECRCL 81.05 ml/min Normal 50-250 [facility] Comment on above: Performed By: #### L 100.0100, L500.2500 #### [facility] [address] [place], [address] GAP 11 Normal 5-15 [facility] Comment on above: Performed By: #### L 100.0100, L500.2500 #### [facility] [address] [place], [address] GFR/1.73 sq M.predicted among non-blacks MDRD (S/P/Bld) [Vol rate/Area] 90 mL/min/{1.73_m2} Normal >60 [facility] Comment on above: Result Comment: mL/m in/1.73m2 CKD-EPI Creatinine Equation (2020) Performed By: #### L 100.0100, L500.2500 #### [facility] [address] [place], [address] Glucose [Mass/Vol] 92 mg/dL Normal 70-99 [facility] Comment on above: Performed By: #### L 100.0100, L500.2500 #### [facility] [address] [place], [address] Potassium [Moles/Vol] 3.7 mmol/L Normal 3.3-5.1 [facility] Comment on above: Performed By: #### L 100.0100, L500.2500 #### [facility] [address] [place], [address] Sodium [Moles/Vol] 138 mmol/L Normal 133-145 [facility] Comment on above: Performed By: #### L 100.0100, L500.2500 #### [facility] [address] [place], [address] Urea nitrogen [Mass/Vol] 20 mg/dL High 4-19 [facility] Comment on above: Performed By: #### L 100.0100, L500.2500 #### [facility] [address] [place], [address] CBC W/Diff, Automatedon 10-01 Absolute Lymph 1.22 X10 3/uL Normal 0.83-4.51 [facility] Comment on above: Performed By: #### L 100.0100, L500.2500 #### [facility] [address] [place], [address] Absolute Neut 5.5 X10 3/uL Normal 2.0-7.7 [facility] Comment on above: Performed By: #### L 100.0100, L500.2500 #### [facility] [address] [place], [address] Basophils/100 WBC (Bld) 0.5 % Normal 0-1 [facility] Comment on above: Performed By: #### L 100.0100, L500.2500 #### [facility] [address] [place], [address] Eosinophils/100 WBC (Bld) 1.9 % Normal 0-5 [facility] Comment on above: Performed By: #### L 100.0100, L500.2500 #### [facility] [address] [place], [address] Erythrocyte distribution width (RBC) [Ratio] 16.7 % High 11.6-14.6 [facility] Comment on above: Performed By: #### L 100.0100, L500.2500 #### [facility] [address] [place], [address] Hematocrit (Bld) [Volume fraction] 32.1 % Low 40-54 [facility] Comment on above: Performed By: #### L 100.0100, L500.2500 #### [facility] [address] [place], [address] Hemoglobin (Bld) [Mass/Vol] 10.2 g/dL Low 13.0-16.5 [facility] Comment on above: Performed By: #### L 100.0100, L500.2500 #### [facility] [address] [place], [address] IG% 2.300 High 0.0-0.9 [facility] Comment on above: Result Comment: IG% - Immature Granulocytes (promyelocytes, myelocytes and metamyelocytes) > 1% indicates that a LEFT SHIFT is Present. Performed By: #### L 100.0100, L500.2500 #### [facility] [address] [place], [address] Lymphocytes/100 WBC (Bld) 15.4 % Low 19-41 [facility] Comment on above: Performed By: #### L 100.0100, L500.2500 #### [facility] [address] [place], [address] MCH (RBC) [Entitic mass] 29.1 pg Normal 27.0-32.0 [facility] Comment on above: Performed By: #### L 100.0100, L500.2500 #### [facility] [address] [place], [address] MCHC (RBC) [Mass/Vol] 31.8 g/dL Low 32-36 [facility] Comment on above: Performed By: #### L 100.0100, L500.2500 #### [facility] [address] [place], [address] MCV (RBC) [Entitic vol] 91.5 fL Normal 80-94 [facility] Comment on above: Performed By: #### L 100.0100, L500.2500 #### [facility] [address] [place], [address] Monocytes/100 WBC (Bld) 10.5 % High 0-10 [facility] Comment on above: Performed By: #### L 100.0100, L500.2500 #### [facility] [address] [place], [address] Neutrophils/100 WBC (Bld) 69.4 % Normal 47-70 [facility] Comment on above: Performed By: #### L 100.0100, L500.2500 #### [facility] [address] [place], [address] Nucleated RBC (Bld) [#/Vol] 0 10*3/uL Normal 0-5 [facility] Comment on above: Performed By: #### L 100.0100, L500.2500 #### [facility] [address] [place], [address] Platelet mean volume (Bld) [Entitic vol] 9.4 fL Normal 6.2-12.0 [facility] Comment on above: Performed By: #### L 100.0100, L500.2500 #### [facility] [address] [place], [address] Platelets (Bld) [#/Vol] 318 10*3/uL Normal 150-450 [facility] Comment on above: Performed By: #### L 100.0100, L500.2500 #### [facility] [address] [place], [address] RBC (Bld) [#/Vol] 3.51 10*6/uL Low 4.6-6.2 [facility] Comment on above: Performed By: #### L 100.0100, L500.2500 #### [facility] [address] [place], [address] RDW SD 55.5 fl High 35.1-43.9 [facility] Comment on above: Performed By: #### L 100.0100, L500.2500 #### [facility] [address] [place], [address] WBC (Bld) [#/Vol] 7.9 10*3/uL Normal 4.4-11.0 [facility] Comment on above: Performed By: #### L 100.0100, L500.2500 #### [facility] [address] [place], [address] CTA Chst, Abd, Pel W and/or WOon 10-14-2024 CTA Chst, Abd, Pel W and/or WO [facility] [address] [place] [address] CTA Chst, Abd, Pel W and/or WO MR#: [id number] Acct: [id number] Name: CHERYL DE LA FUENTE Jr. Rep #: [id number] : 1950 M 73 From: Hal martin MD PCP: Dr. Ashlee Lanier MD Status: REG CLI Study: CTA Chst, Abd, Pel W and/or WO Date of Exam: 0 10/14/24 Exam# [id number] Ordering Dr: Norris Olmedo MD PROCEDURE: CTA CHST, ABD, PEL W AND/OR WO 10/14/2024 REASON FOR EXAM: AAA RUPTURE, ABD DISTENSION, HYPOXIA TECHNIQUE: CTA CHST, ABD, PEL W AND/OR WO coronal and Sagittal reconstruction series were provided. One or more dose reduction techniques were used (e.g., Automated exposure control, adjustment of the mA and/or kV according to patient size, use of iterative reconstruction technique. CONTRAST: Isovue 370 VOLUME: 100 mL RADIATION DOSE SUMMARY: CTDlvol: 13.5 mGy DLP: 1084.25 mGycm COMPARISON: Prior study dated March 31, 2024. FINDINGS: CHEST: Lines and tubes: None Mediastinum: Unremarkable Heart: Coronary artery calcification. Thoracic Aorta: The ascending thoracic aorta as a transverse dimension of 39.5 mm. This measures upper limits of normal. No evidence of pericardial effusion. Lungs and Airways: Hyperinflation. Emphysematous changes. Chronic scarring with bronchiectasis in the right lower lobe. Pleura: Small left pleural effusion with left basilar atelectasis. Bones: Degenerative changes of the spine. ABDOMEN AND PELVIS: Liver: Diffuse fatty infiltration. Gallbladder: Gallbladder is unremarkable. Spleen: Normal size. Pancreas: Normal size without evidence of mass surrounding inflammation or ductal dilation. Adrenals: The adrenal glands are unremarkable. Kidneys: Normal renal sizes. No hydronephrosis. Bladder: Diffuse bladder wall thickening. There is evidence of trabeculation of the bladder wall as well as right-sided diverticula. Prostatic enlargement. Bowel: Colonic diverticulosis without diverticulitis. Vasculature: There is evidence of an infrarenal abdominal aortic aneurysm. There is evidence of prior endoluminal stent grafting. The kaibab abdominal aorta measures 7.5 cm in transverse dimension. There is evidence of a large left retroperitoneal hematoma. Rupture of the aortic aneurysm is highly suspected. The endoluminal stent graft is patent. No evidence of endoluminal leak at this time. Bones: Degenerative changes of the spine. Right inguinal hernia containing fat. CT/CTA Chst, Abd, Pel W and/or WO IMPRESSION: Findings suggestive of ruptured infrarenal abdominal aortic aneurysm with a large left retroperitoneal hematoma. Findings as discussed above. Reading Location: [facility] CC: Dr. Ashlee Lanier MD; Dr. Norris Olmedo MD [employer] Supervisor: Signed Normal [facility] CBC panel Auto (Bld)on 10-13 Erythrocyte distribution width (RBC) [Ratio] 16.7 % High 11.5-14.5 [facility] Comment on above: Performed By: #### 5 8410-2 ####ANNETTE RAMSEYTZVISHNU L ([id number])[facility] ([facility])[address] [place] [address] Hematocrit (Bld) [Volume fraction] 36.3 % Low 41.0-52.0 [facility] Comment on above: Performed By: #### 5 8410-2 ####ANNETTE SCHMOTZER L ([id number])[facility] ([facility])[address] [place] [address] Hemoglobin (Bld) [Mass/Vol] 10.9 g/dL Low 13.5-17.5 [facility] Comment on above: Performed By: #### 5 8410-2 ####ANNETTE YEBOAHMOTZER L ([id number])[facility] ([facility])[address] [place] [address] MCH (RBC) [Entitic mass] 29.3 pg Normal 26.0-34.0 [facility] Comment on above: Performed By: #### 5 8410-2 ####ANNTETE YEBOAHMOTZER L ([id number])[facility] ([facility])[address] [place] [address] MCHC (RBC) [Mass/Vol] 30.0 g/dL Low 32.0-36.0 [facility] Comment on above: Performed By: #### 5 8410-2 ####ANNETTE YEBOAHMOTZER L ([id number])[facility] ([facility])[address] [place] [address] MCV (RBC) [Entitic vol] 98 fL Normal 80-100 [facility] Comment on above: Performed By: #### 5 8410-2 ####ANNETTE Castle ([id number])[facility] ([facility])[id number] [place] [address] Nucleated RBC/100 WBC (Bld) [Ratio] 0.0 /100 WBCs Normal 0.0-0.0 [facility] Comment on above: Performed By: #### 5 8410-2 ####ANNETTE Castle ([id number])[facility] ([facility])[address] [place] [address] Platelets (Bld) [#/Vol] 273 x10*3/uL Normal 150-450 [facility] Comment on above: Performed By: #### 5 8410-2 ####ANNETTE Castle ([id number])[facility] ([facility])[address] [place] [address] RBC (Bld) [#/Vol] 3.72 x10*6/uL Low 4.50-5.90 [facility] Comment on above: Performed By: #### 5 8410-2 ####ANNETTE Castle ([id number])[facility] ([facility])[address] [place] [address] WBC (Bld) [#/Vol] 7.7 x10*3/uL Normal 4.4-11.3 [facility] Comment on above: Performed By: #### 5 8410-2 ####ANNETTE Castle ([id number])[facility] ([facility])[address] [place] [address] Coagulation surface inducedo n 10-13-2024 aPTT Coag (PPP) [Time] 58 s High 26-36 [facility] Comment on above: Order Comment: When two (2) consecutive Activated Partial Thromboplastin Times results obtained 2 hours apart are therapeutic, obtain STAT Activated Partial Thromboplastin Time every a.m. Nursing to release order.The APTT is no longer used for monitoring Unfractionated Heparin Therapy. For monitoring Heparin Therapy, use the Heparin Assay. Performed By: #### 1 4979-9 ####ANNETTE Castle ([id number])[facility] ([facility])[address] [place] [address] Glucose Test strip manual (B ld) [Mass/Vol]on 10-13-2024 Glucose [Mass/Vol] 92 mg/dL Normal 74-99 [facility] Comment on above: Performed By: #### 2 341-6 ####ANNETTE Castle ([id number])[facility] ([facility])[address] [place] [address] Glucose [Mass/Vol] 74 mg/dL Normal 74-99 [facility] Comment on above: Performed By: #### 2 341-6 ####ANNETTE Castle ([id number])[facility] ([facility])[address] [place] [address] Glucose [Mass/Vol] 96 mg/dL Normal 74-99 [facility] Comment on above: Performed By: #### 2 341-6 ####ANNETTE Castle ([id number])[facility] ([facility])[address] [place] [address] Magnesiumon 10-13-2024 Magnesium [Mass/Vol] 2.17 mg/dL Normal 1.60-2.40 [facility] Comment on above: Performed By: #### 1 9123-9 ####ANNETTE Castle ([id number])[facility] ([facility])[address] [place] [address] Renal function 2000 panelon 10-13-2024 Albumin BCP dye [Mass/Vol] 3.3 g/dL Low 3.4-5.0 [facility] Comment on above: Performed By: #### 2 4362-6 ####ANNETTE Castle ([id number])[facility] ([facility])[id number] [place] [address] Anion gap [Moles/Vol] 9 mmol/L Low 10-20 [facility] Comment on above: Performed By: #### 2 4362-6 ####ANNETTE GARCIA L ([id number])[facility] ([facility])[address] [place] [address] Calcium [Mass/Vol] 8.7 mg/dL Normal 8.6-10.6 [facility] Comment on above: Performed By: #### 2 4362-6 ####ANNETTE GARCIA L ([id number])[facility] ([facility])[address] [place] [address] Chloride [Moles/Vol] 103 mmol/L Normal 98-107 [facility] Comment on above: Performed By: #### 2 4362-6 ####ANNETTE GARCIA L ([id number])[facility] ([facility])[address] [place] [address] CO2 [Moles/Vol] 32 mmol/L Normal 21-32 [facility] Comment on above: Performed By: #### 2 4362-6 ####ANNETTE GARCIA L ([id number])[facility] ([facility])[address] [place] [address] Creatinine [Mass/Vol] 0.90 mg/dL Normal 0.50-1.30 [facility] Comment on above: Performed By: #### 2 4362-6 ####ANNETTE GARCIA L ([id number])[facility] ([facility])[address] [place] [address] Glomerular filtration rate 89 mL/min/1.73m*2 Normal >60 [facility] Comment on above: Result Comment: Calc ulations of estimated GFR are performed using the 2020 CKD-EPI Study Refit equation without the race variable for the IDMS-Traceable creatinine methods.https://jasn.asnjournals.org/content// ASN.2040194396 Performed By: #### 2 4362-6 ####ANNETTE GARCIA L ([id number])[facility] ([facility])[address] [place] [address] Glucose [Mass/Vol] 124 mg/dL High 74-99 [facility] Comment on above: Performed By: #### 2 4362-6 ####ANNETTE Castle ([id number])[facility] ([facility])[address] [place] [address] Phosphate [Mass/Vol] 2.1 mg/dL Low 2.5-4.9 [facility] Comment on above: Result Comment: MILD HEMOLYSIS DETECTED. The result may be falsely elevated due to hemolysis or other interferents. Clinical correlation is recommended. Repeat testing may be considered. Performed By: #### 2 4362-6 ####ANNETTE Castle ([id number])[facility] ([facility])[address] [place] [address] Potassium [Moles/Vol] 3.7 mmol/L Normal 3.5-5.3 [facility] Comment on above: Result Comment: MILD HEMOLYSIS DETECTED. The result may be falsely elevated due to hemolysis or other interferents. Clinical correlation is recommended. Repeat testing may be considered. Performed By: #### 2 4362-6 ####ANNETTE Castle ([id number])[facility] ([facility])[address] [place] [address] Sodium [Moles/Vol] 140 mmol/L Normal 136-145 [facility] Comment on above: Performed By: #### 2 4362-6 ####ANNETTE Castle ([id number])[facility] ([facility])[address] [place] [address] Urea nitrogen [Mass/Vol] 22 mg/dL Normal 6-23 [facility] Comment on above: Performed By: #### 2 4362-6 ####ANNETTE Castle ([id number])[facility] ([facility])[address] [place] [address] CBC panel Auto (Bld)on 10-12 Erythrocyte distribution width (RBC) [Ratio] 16.7 % High 11.5-14.5 [facility] Comment on above: Performed By: #### 5 8410-2 ####ANNETTE Castle ([id number])[facility] ([facility])[address] [place] [address] Hematocrit (Bld) [Volume fraction] 33.4 % Low 41.0-52.0 [facility] Comment on above: Performed By: #### 5 8410-2 ####ANNETTE Castle ([id number])[facility] ([facility])[address] [place] [address] Hemoglobin (Bld) [Mass/Vol] 10.4 g/dL Low 13.5-17.5 [facility] Comment on above: Performed By: #### 5 8410-2 ####ANNETTE Castle ([id number])[facility] ([facility])[address] [place] [address] 22904 MCH (RBC) [Entitic mass] 28.8 pg Normal 26.0-34.0 [facility] Comment on above: Performed By: #### 5 8410-2 ####ANNETTE Castle ([id number])[facility] ([facility])[address] [place] [address]328 MCHC (RBC) [Mass/Vol] 31.1 g/dL Low 32.0-36.0 [facility] Comment on above: Performed By: #### 5 8410-2 ####ANNETTE Castle ([id number])[facility] ([facility])[address] [place] [address]20 MCV (RBC) [Entitic vol] 93 fL Normal 80-100 U [facility] Comment on above: Performed By: #### 5 8410-2 ####ANNETTE Castle ([id number])[facility] ([facility])[address] [place] [address] 23628 Nucleated RBC/100 WBC (Bld) [Ratio] 0.0 /100 WBCs Normal 0.0-0.0 [facility] Comment on above: Performed By: #### 5 8410-2 ####ANNETTE Castle ([id number])[facility] ([facility])[address] [place] [address] Platelets (Bld) [#/Vol] 223 x10*3/uL Normal 150-450 [facility] Comment on above: Performed By: #### 5 8410-2 ####ANNETTE Castle ([id number])[facility] ([facility])[address] [place] [address] RBC (Bld) [#/Vol] 3.61 x10*6/uL Low 4.50-5.90 [facility] Comment on above: Performed By: #### 5 8410-2 ####ANNETTE Castle ([id number])[facility] ([facility])[address] [place] [address]005 WBC (Bld) [#/Vol] 9.6 x10*3/uL Normal 4.4-11.3 [facility] Comment on above: Performed By: #### 5 8410-2 ####ANNETTE Castle ([id number])[facility] ([facility])[address] [place] [address]07 Calcium.ionizedon 10-12-2024 Calcium.ionized (Bld) [Moles/Vol] 1.17 mmol/L Normal 1.1-1.33 [facility] Comment on above: Result Comment: The performance characteristics of ionized calcium testedin heparinized plasma or serum have been validated [facility] where testing [facility].Testing on heparinized plasma or serum is not approved bythe FDA; however, such approval is not necessary. Performed By: #### 1 994-3 ####ANNETTE Castle ([id number])[facility] ([facility])[address] [place] [address] 15314 Glucose Test strip manual (B ld) [Mass/Vol]on 10-12-2024 Glucose [Mass/Vol] 106 mg/dL High 74-99 [facility] [facility] Comment on above: Performed By: #### 2 341-6 ####ANNETTE Castle ([id number])[facility] ([facility])[address] [facility] [place] [address] Glucose [Mass/Vol] 80 mg/dL Normal 74-99 [facility] Comment on above: Performed By: #### 2 341-6 ####ANNETTE Castle ([id number])[facility] ([facility])[address] [facility] [place] [address] Glucose [Mass/Vol] 114 mg/dL High 74-99 [facility] Comment on above: Performed By: #### 2 341-6 ####ANNETTE Castle ([id number])[facility] ([facility])[address] [place] [address] Glucose [Mass/Vol] 77 mg/dL Normal 74-99 [facility] Comment on above: Performed By: #### 2 341-6 ####ANNETTE Castle ([id number])[facility] ([facility])[address] [facility] [place] [address] Glucose [Mass/Vol] 88 mg/dL Normal 74-99 [facility] Comment on above: Performed By: #### 2 341-6 ####ANNETTE Castle ([id number])[facility] ([facility])[address] [place] [address] Glucose [Mass/Vol] 97 mg/dL Normal 74-99 [facility] Comment on above: Performed By: #### 2 341-6 ####ANNETTE Castle ([id number])[facility] ([facility])[address] [place] [address] Magnesiumon 10-12-2024 Magnesium [Mass/Vol] 2.03 mg/dL Normal 1.60-2.40 [facility] Comment on above: Performed By: #### 1 9123-9 ####ANNETTE Castle ([id number])[facility] ([facility])[address] [place] [address] PT and aPTT panel Coag (PPP) on 10-12-2024 aPTT Coag (PPP) [Time] 54 s High 26-36 [facility] Comment on above: Order Comment: The A PTT is no longer used for monitoring Unfractionated Heparin Therapy. For monitoring Heparin Therapy, use the Heparin Assay. Performed By: #### 3 4529-8 ####ANNETTE Castle ([id number])[facility] ([facility])[address] [place] [address] INR Coag (PPP) [Relative time] 1.9 High 0.9-1.1 [facility] Comment on above: Order Comment: The A PTT is no longer used for monitoring Unfractionated Heparin Therapy. For monitoring Heparin Therapy, use the Heparin Assay. Performed By: #### 3 4529-8 ####ANNETTE Castle ([id number])[facility] ([facility])[address] [place] [address] PT Coag (PPP) [Time] 20.7 s High 9.8-12.4 [facility] Comment on above: Order Comment: The A PTT is no longer used for monitoring Unfractionated Heparin Therapy. For monitoring Heparin Therapy, use the Heparin Assay. Performed By: #### 3 4529-8 ####ANNETTE Castle ([id number])[facility] ([facility])[address] [place] [address] Renal function 2000 panelon 10-12-2024 Albumin BCP dye [Mass/Vol] 3.1 g/dL Low 3.4-5.0 [facility] Comment on above: Performed By: #### 2 4362-6 ####ANNETTE Castle ([id number])[facility] ([facility])[address] [place] [address] Anion gap [Moles/Vol] 9 mmol/L Low 10-20 [facility] Comment on above: Performed By: #### 2 4362-6 ####ANNETTE Castle ([id number])[facility] ([facility])[address] [place] [address] Calcium [Mass/Vol] 8.3 mg/dL Low 8.6-10.6 [facility] Comment on above: Performed By: #### 2 4362-6 ####ANNETTE GARCIA L ([id number])[facility] ([facility])[address]84 [place] [address] Chloride [Moles/Vol] 103 mmol/L Normal 98-107 [facility] Comment on above: Performed By: #### 2 4362-6 ####ANNETTE RAMSEYTZER L ([id number])[facility] ([facility])[address]761 [place] [address] CO2 [Moles/Vol] 31 mmol/L Normal 21-32 [facility] Comment on above: Performed By: #### 2 4362-6 ####ANNETTE Castle ([id number])[facility] ([facility])[address]66 [place] [address] Creatinine [Mass/Vol] 0.80 mg/dL Normal 0.50-1.30 [facility] Comment on above: Performed By: #### 2 4362-6 ####ANNETTE GARCIA L ([id number])[facility] ([facility])[address]16 [place] [address] Glomerular filtration rate >90 Normal >60 [facility] Comment on above: Result Comment: Calc ulations of estimated GFR are performed using the 2020 CKD-EPI Study Refit equation without the race variable for the IDMS-Traceable creatinine methods.https://jasn.asnjournals.org/content// ASN.2517112475 Performed By: #### 2 4362-6 ####ANNETTE RAMSEYTZVISHNU L ([id number])[facility] ([facility])[address]73 [place] [address] Glucose [Mass/Vol] 91 mg/dL Normal 74-99 [facility] Comment on above: Performed By: #### 2 4362-6 ####ANNETTE YEBOAHMOTZVISHNU L ([id number])[facility] ([facility])[address] [place] [address] Phosphate [Mass/Vol] 2.9 mg/dL Normal 2.5-4.9 [facility] Comment on above: Result Comment: MILD HEMOLYSIS DETECTED. The result may be falsely elevated due to hemolysis or other interferents. Clinical correlation is recommended. Repeat testing may be considered. Performed By: #### 2 4362-6 ####ANNETTE Castle (60796)[facility] ([facility])[address]124 [place] [address] Potassium [Moles/Vol] 3.9 mmol/L Normal 3.5-5.3 [facility] Comment on above: Result Comment: MILD HEMOLYSIS DETECTED. The result may be falsely elevated due to hemolysis or other interferents. Clinical correlation is recommended. Repeat testing may be considered. Performed By: #### 2 4362-6 ####ANNETTE GARCIA L ([id number])[facility] ([facility])[address]85 [place] [address] Sodium [Moles/Vol] 139 mmol/L Normal 136-145 [facility] Comment on above: Performed By: #### 2 4362-6 ####ANNETTE GARCIA L ([id number])[facility] ([facility])[address]193 [place] [address] Urea nitrogen [Mass/Vol] 25 mg/dL High 6-23 [facility] Comment on above: Performed By: #### 2 4362-6 ####ANNETTE GARCIA L ([id number])[facility] ([facility])33071 [place] [address] XR CHEST 1 VIEWon 10-12-2024 XR CHEST 1 VIEW Normal [facility] CBC panel Auto (Bld)on 10-11 Erythrocyte distribution width (RBC) [Ratio] 16.7 % High 11.5-14.5 [facility] Comment on above: Performed By: #### 5 8410-2 ####ANNETTE GARCIA L ([id number])[facility] ([facility])[address]12 [place] [address] Hematocrit (Bld) [Volume fraction] 35.0 % Low 41.0-52.0 [facility] Comment on above: Performed By: #### 5 8410-2 ####ANNETTE Castle (72122)[facility] ([facility])[address]87 [place] [address] Hemoglobin (Bld) [Mass/Vol] 10.7 g/dL Low 13.5-17.5 [facility] Comment on above: Performed By: #### 5 8410-2 ####ANNETTE Castle ([id number])[facility] ([facility])[address]433 [place] [address] MCH (RBC) [Entitic mass] 28.0 pg Normal 26.0-34.0 [facility] Comment on above: Performed By: #### 5 8410-2 ####ANNETTE Castle ([id number])[facility] ([facility])[address] [place] [address] MCHC (RBC) [Mass/Vol] 30.6 g/dL Low 32.0-36.0 [facility] Comment on above: Performed By: #### 5 8410-2 ####ANNETTE Castle (96514)[facility] ([facility])[address]47 [place] [address] MCV (RBC) [Entitic vol] 92 fL Normal 80-100 U [facility] Comment on above: Performed By: #### 5 8410-2 ####ANNETTE Castle ([id number])[facility] ([facility])[address]70 [place] [address] Nucleated RBC/100 WBC (Bld) [Ratio] 0.0 /100 WBCs Normal 0.0-0.0 [facility] Comment on above: Performed By: #### 5 8410-2 ####ANNETTE Castle ([id number])[facility] ([facility])[address]99 [place] [address] Platelets (Bld) [#/Vol] 158 x10*3/uL Normal 150-450 [facility] Comment on above: Performed By: #### 5 8410-2 ####ANNETTE Castle ([id number])[facility] ([facility])[address]83 [place] [address] RBC (Bld) [#/Vol] 3.82 x10*6/uL Low 4.50-5.90 [facility] Comment on above: Performed By: #### 5 8410-2 ####ANNETTE Castle ([id number])[facility] ([facility])[address] [place] [address] WBC (Bld) [#/Vol] 12.3 x10*3/uL High 4.4-11.3 [facility] Comment on above: Performed By: #### 5 8410-2 ####ANNETTE Castle ([id number])[facility] ([facility])[address] [place] [address] Calcium.ionizedon 10-11-2024 Calcium.ionized (Bld) [Moles/Vol] 1.11 mmol/L Normal 1.1-1.33 [facility] Comment on above: Result Comment: The performance characteristics of ionized calcium testedin heparinized plasma or serum have been validated [facility] where [facility].Testing on heparinized plasma or serum is not approved bythe FDA; however, such approval is not necessary. Performed By: #### 1 994-3 ####ANNETTE Castle ([id number])[facility] ([facility])[address] [place] [address] Coagulation surface inducedo n 10-11-2024 aPTT Coag (PPP) [Time] 51 s High 26-36 [facility] Comment on above: Order Comment: Obtai n two hours after any Bivalrudin or Argatroban dosage change. Nursing to release order.The APTT is no longer used for monitoring Unfractionated Heparin Therapy. For monitoring Heparin Therapy, use the Heparin Assay. Performed By: #### 1 4979-9 ####ANNETTE Castle ([id number])[facility] ([facility])[address] [place] [address] aPTT Coag (PPP) [Time] 48 s High 26-36 [facility] Comment on above: Order Comment: Obtai n two hours after any Bivalrudin or Argatroban dosage change. Nursing to release order.The APTT is no longer used for monitoring Unfractionated Heparin Therapy. For monitoring Heparin Therapy, use the Heparin Assay. Performed By: #### 1 4979-9 ####ANNETTE Castle ([id number])[facility] ([facility])[address] [place] [address] Glucose Test strip manual (B ld) [Mass/Vol]on 10-11-2024 Glucose [Mass/Vol] 101 mg/dL High [address] [place] [address] Comment on above: Performed By: #### 2 341-6 ####ANNETTE Castle ([id number])[facility] ([facility])[address] [place] [address] Glucose [Mass/Vol] 100 mg/dL High [address] [place] [address] Comment on above: Performed By: #### 2 341-6 ####ANNETTE Castle ([id number])[facility] ([facility])[address] [place] [address] Glucose [Mass/Vol] 106 mg/dL High [address] [place] [address] Comment on above: Performed By: #### 2 341-6 ####ANNETTE Castle ([id number])[facility] ([facility])[address] [place] [address] Glucose [Mass/Vol] 67 mg/dL Low [address] [place] [address] Comment on above: Performed By: #### 2 341-6 ####ANNETTE Castle ([id number])[facility] ([facility])[address] [place] [address] Glucose [Mass/Vol] 66 mg/dL Low [address] [place] [address] Comment on above: Performed By: #### 2 341-6 ####ANNETTE Castle ([id number])[facility] ([facility])[address]319 [place] [address] Glucose [Mass/Vol] 105 mg/dL High 74-99 [facility] Comment on above: Performed By: #### 2 341-6 ####ANNETTE Castle ([id number])[facility] ([facility])[address]32 [facility] [address] Glucose [Mass/Vol] 109 mg/dL High 74-99 [facility] Comment on above: Performed By: #### 2 341-6 ####ANNETTE Castle ([id number])[facility] ([facility])[address]405 [place] [address] Magnesiumon 10-11-2024 Magnesium [Mass/Vol] 2.07 mg/dL Normal 1.60-2.40 [facility] Comment on above: Performed By: #### 1 9123-9 ####ANNETTE Castle ([id number])[facility] ([facility])[address] [place] [address] PT and aPTT panel Coag (PPP) on 10-11-2024 aPTT Coag (PPP) [Time] 40 s High 26-36 [facility] Comment on above: Order Comment: The A PTT is no longer used for monitoring Unfractionated Heparin Therapy. For monitoring Heparin Therapy, use the Heparin Assay. Performed By: #### 3 4529-8 ####ANNETTE Castle ([id number])[facility] ([facility])[address]841 [place] [address] INR Coag (PPP) [Relative time] 1.8 High 0.9-1.1 [facility] Comment on above: Order Comment: The A PTT is no longer used for monitoring Unfractionated Heparin Therapy. For monitoring Heparin Therapy, use the Heparin Assay. Performed By: #### 3 4529-8 ####ANNETTE Castle ([id number])[facility] ([facility])[address]39 [place] [address] PT Coag (PPP) [Time] 20.1 s High 9.8-12.4 [facility] Comment on above: Order Comment: The A PTT is no longer used for monitoring Unfractionated Heparin Therapy. For monitoring Heparin Therapy, use the Heparin Assay. Performed By: #### 3 4529-8 ####ANNETTE Castle ([id number])[facility] ([facility])[address]93 [place] [address] Renal function 2000 panelon 10-11-2024 Albumin BCP dye [Mass/Vol] 3.2 g/dL Low 3.4-5.0 [facility] Comment on above: Performed By: #### 2 4362-6 ####ANNETTE Castle ([id number])[facility] ([facility])[address]81 [place] [address] Anion gap [Moles/Vol] 11 mmol/L Normal 10-20 [facility] Comment on above: Performed By: #### 2 4362-6 ####ANNETTE Castle ([id number])[facility] ([facility])[address]275 [place] [address] Calcium [Mass/Vol] 8.2 mg/dL Low 8.6-10.6 [facility] Comment on above: Performed By: #### 2 4362-6 ####ANNETTE Castle ([id number])[facility] ([facility])[address]63 [place] [address] Chloride [Moles/Vol] 105 mmol/L Normal 98-107 [facility] Comment on above: Performed By: #### 2 4362-6 ####ANNETTE GARCIA L ([id number])[facility] ([facility])[address]71 [place] [address] CO2 [Moles/Vol] 29 mmol/L Normal 21-32 [facility] Comment on above: Performed By: #### 2 4362-6 ####ANNETTE GARCIA L ([id number])[facility] ([facility])[address]76 [place] [address] Creatinine [Mass/Vol] 0.90 mg/dL Normal 0.50-1.30 [facility] Comment on above: Performed By: #### 2 4362-6 ####ANNETTE Castle ([id number])[facility] ([facility])[address]375 [place] [address] Glomerular filtration rate 89 mL/min/1.73m*2 Normal >60 [facility] Comment on above: Result Comment: Calc ulations of estimated GFR are performed using the 2020 CKD-EPI Study Refit equation without the race variable for the IDMS-Traceable creatinine methods.https://jasn.asnjournals.org/content/early// ASN.9546704056 Performed By: #### 2 4362-6 ####ANNETTE Castle ([id number])[facility] ([facility])59682 [place] [address] Glucose [Mass/Vol] 109 mg/dL High 74-99 [facility] Comment on above: Performed By: #### 2 4362-6 ####ANNETTE Castle ([id number])[facility] ([facility])[address]1944 [place] [address] Phosphate [Mass/Vol] 4.3 mg/dL Normal 2.5-4.9 [facility] Comment on above: Result Comment: MILD HEMOLYSIS DETECTED. The result may be falsely elevated due to hemolysis or other interferents. Clinical correlation is recommended. Repeat testing may be considered. Performed By: #### 2 4362-6 ####ANNETTE Castle ([id number])[facility] ([facility])[address]154 [place] [address] Potassium [Moles/Vol] 4.1 mmol/L Normal 3.5-5.3 [facility] Comment on above: Result Comment: MILD HEMOLYSIS DETECTED. The result may be falsely elevated due to hemolysis or other interferents. Clinical correlation is recommended. Repeat testing may be considered. Performed By: #### 2 4362-6 ####ANNETTE GARCIA L ([id number])[facility] ([facility])[address]89 [place] [address] Sodium [Moles/Vol] 141 mmol/L Normal 136-145 [facility] Comment on above: Performed By: #### 2 4362-6 ####ANNETTE Castle ([id number])[facility] ([facility])[address]216 [place] [address] Urea nitrogen [Mass/Vol] 33 mg/dL High 6-23 [facility] Comment on above: Performed By: #### 2 4362-6 ####ANNETTE Castle ([id number])[facility] ([facility])[address]34 [place] [address] XR CHEST 1 VIEWon 10-11-2024 XR CHEST 1 VIEW Normal [facility] Blood type and Indirect anti body screen panel (Bld)on 10-10-2024 ABO group Nom (Bld) A Normal [facility] Comment on above: Performed By: #### 3 4532-2 ####ANNETTE Castle ([id number])[facility] ([facility])[address] [place] [address] Blood group antibody screen Ql Negative Normal [facility] Comment on above: Performed By: #### 3 4532-2 ####ANNETTE Castle ([id number])[facility] ([facility])[address] [place] [address] D Ag Ql (Bld) Positive Normal [facility] Comment on above: Performed By: #### 3 4532-2 ####ANNETTE Castle ([id number])[facility] ([facility])[address] [place] [address] CBC panel Auto (Bld)on 10-10 Erythrocyte distribution width (RBC) [Ratio] 16.6 % High 11.5-14.5 [facility] Comment on above: Performed By: #### 5 8410-2 ####ANNETTE Castle ([id number])[facility] ([facility])[address]375 [place] [address] Hematocrit (Bld) [Volume fraction] 35.3 % Low 41.0-52.0 [facility] Comment on above: Performed By: #### 5 8410-2 ####ANNETTE Castle ([id number])[facility] ([facility])[address] [place] [address] Hemoglobin (Bld) [Mass/Vol] 11.4 g/dL Low 13.5-17.5 [facility] Comment on above: Performed By: #### 5 8410-2 ####ANNETTE Castle ([id number])[facility] ([facility])[address] [place] [address]489 MCH (RBC) [Entitic mass] 28.9 pg Normal 26.0-34.0 [facility] Comment on above: Performed By: #### 5 8410-2 ####ANNETTE Castle ([id number])[facility] ([facility])[address] [place] [address]85 MCHC (RBC) [Mass/Vol] 32.3 g/dL Normal 32.0-36.0 [facility] Comment on above: Performed By: #### 5 8410-2 ####ANNETTE Castle ([id number])[facility] ([facility])[address] [place] [address] MCV (RBC) [Entitic vol] 90 fL Normal 80-100 U [facility] Comment on above: Performed By: #### 5 8410-2 ####ANNETTE Castle ([id number])[facility] ([facility])[address] [place] [address] 43061 Nucleated RBC/100 WBC (Bld) [Ratio] 0.0 /100 WBCs Normal 0.0-0.0 [facility] Comment on above: Performed By: #### 5 8410-2 ####ANNETTE Castle ([id number])[facility] ([facility])[address] [place] [address] 47265 Platelets (Bld) [#/Vol] 156 x10*3/uL Normal 150-450 [facility] Comment on above: Performed By: #### 5 8410-2 ####ANNETTE Castle ([id number])[facility] ([facility])[address]409 [place] [address] RBC (Bld) [#/Vol] 3.94 x10*6/uL Low 4.50-5.90 [facility] Comment on above: Performed By: #### 5 8410-2 ####ANNETTE Castle ([id number])[facility] ([facility])[address]91 [place] [address] WBC (Bld) [#/Vol] 14.2 x10*3/uL High 4.4-11.3 [facility] Comment on above: Performed By: #### 5 8410-2 ####ANNETTE Castle ([id number])[facility] ([facility])[address] [place] [address]1837 Erythrocyte distribution width (RBC) [Ratio] 16.4 % High 11.5-14.5 [facility] Comment on above: Performed By: #### 5 8410-2 ####ANNETTE Castle ([id number])[facility] ([facility])[address]168 [place] [address] Hematocrit (Bld) [Volume fraction] 34.5 % Low 41.0-52.0 [facility] Comment on above: Performed By: #### 5 8410-2 ####ANNETTE Castle ([id number])[facility] ([facility])[address]31 [place] [address] Hemoglobin (Bld) [Mass/Vol] 10.8 g/dL Low 13.5-17.5 [facility] Comment on above: Performed By: #### 5 8410-2 ####ANNETTE Castle ([id number])[facility] ([facility])18850 [place] [address] MCH (RBC) [Entitic mass] 28.4 pg Normal 26.0-34.0 [facility] Comment on above: Performed By: #### 5 8410-2 ####ANNETTE Castle ([id number])[facility] ([facility])[address]368 [place] [address] MCHC (RBC) [Mass/Vol] 31.3 g/dL Low 32.0-36.0 [facility] Comment on above: Performed By: #### 5 8410-2 ####ANNETTE Castle ([id number])[facility] ([facility])[address]29 [place] [address] MCV (RBC) [Entitic vol] 91 fL Normal 80-100 U [facility] Comment on above: Performed By: #### 5 8410-2 ####ANNETTE Castle ([id number])[facility] ([facility])[address] [place] [address] Nucleated RBC/100 WBC (Bld) [Ratio] 0.0 /100 WBCs Normal 0.0-0.0 [facility] Comment on above: Performed By: #### 5 8410-2 ####ANNETTE Castle ([id number])[facility] ([facility])[address] [place] [address] Platelets (Bld) [#/Vol] 150 x10*3/uL Normal 150-450 [facility] Comment on above: Performed By: #### 5 8410-2 ####ANNETTE Castle ([id number])[facility] [place] [place] [address] RBC (Bld) [#/Vol] 3.80 x10*6/uL Low 4.50-5.90 [facility] Comment on above: Performed By: #### 5 8410-2 ####ANNETTE Castle ([id number])[facility] ([facility] [place])[address] [place] [address] WBC (Bld) [#/Vol] 14.7 x10*3/uL High 4.4-11.3 [facility] Comment on above: Performed By: #### 5 8410-2 ####ANNETTE Castle ([id number])[facility] ([facility] [place])[address] [place] [address] Calcium.ionizedon 10-10-2024 Calcium.ionized (Bld) [Moles/Vol] 1.12 mmol/L Normal 1.1-1.33 [facility] Comment on above: Result Comment: The performance characteristics of ionized calcium testedin heparinized plasma or serum have [facility] where [facility] is performed.Testing on heparinized plasma or serum is not approved bythe FDA; however, such approval is not necessary. Performed By: #### 1 994-3 ####ANNETTE Castle ([id number])[facility] ([facility] [place])[address] [place] [address] Glucose Test strip manual (B ld) [Mass/Vol]on 10-10-2024 Glucose [Mass/Vol] 82 mg/dL Normal 74-99 [facility] Comment on above: Performed By: #### 2 341-6 ####ANNETTE Castle ([id number])[facility] ([facility] [place])[address] [place] [address] Glucose [Mass/Vol] 71 mg/dL Low 74-99 [facility] Comment on above: Performed By: #### 2 341-6 ####ANNETTE Castle ([id number])[facility] ([facility] [place])[address] [place] [address] Glucose [Mass/Vol] 87 mg/dL Normal 7499 [facility] Comment on above: Performed By: #### 2 341-6 ####ANNETTE Castle ([id number])[facility] ([facility] [place])[address] [place] [address] Glucose [Mass/Vol] 123 mg/dL High 74-99 [facility] Comment on above: Performed By: #### 2 341-6 ####ANNETTE Castle ([id number])[facility] ([facility] [place])[address] [place] [address] Glucose [Mass/Vol] 67 mg/dL Low 74-99 [facility] Comment on above: Performed By: #### 2 341-6 ####ANNETTE Castle ([id number])[facility] ([facility] [place])[address] [place] [address] Glucose [Mass/Vol] 100 mg/dL High 74-99 [facility] Comment on above: Performed By: #### 2 341-6 ####ANNETTE Castle ([id number])[facility] ([facility] [place])[address] [place] [address] Glucose [Mass/Vol] 82 mg/dL Normal 74-99 [facility] Comment on above: Performed By: #### 2 341-6 ####ANNETTE Castle ([id number])[facility] ([facility] [place])[address] [place] [address] Magnesiumon 10-10-2024 Magnesium [Mass/Vol] 2.12 mg/dL Normal 1.60-2.40 [facility] Comment on above: Performed By: #### 1 9123-9 ####ANNETTE Castle ([id number])[facility] ([facility] [place])[address] [place] [address] Magnesium [Mass/Vol] 2.19 mg/dL Normal 1.60-2.40 [facility] Comment on above: Performed By: #### 1 9123-9 ####ANNETTE Castle ([id number])[facility] ([facility] [place])[address] [place] [address] PT and aPTT panel Coag (PPP) on 10-10-2024 aPTT Coag (PPP) [Time] 61 s High 26-36 [facility] Comment on above: Order Comment: The A PTT is no longer used for monitoring Unfractionated Heparin Therapy. For monitoring Heparin Therapy, use the Heparin Assay. Performed By: #### 3 4529-8 ####ANNETTE Castle ([id number])[facility] ([facility] [place])[address] [place] [address] INR Coag (PPP) [Relative time] 2.1 High 0.9-1.1 [facility] Comment on above: Order Comment: The A PTT is no longer used for monitoring Unfractionated Heparin Therapy. For monitoring Heparin Therapy, use the Heparin Assay. Performed By: #### 3 4529-8 ####ANNETTE Castle ([id number])[facility] ([facility] [place])[address] [place] [address] PT Coag (PPP) [Time] 22.8 s High 9.8-12.4 [facility] Comment on above: Order Comment: The A PTT is no longer used for monitoring Unfractionated Heparin Therapy. For monitoring Heparin Therapy, use the Heparin Assay. Performed By: #### 3 4529-8 ####ANNETTE Castle ([id number])[facility] ([facility] [place])[address] [place] [address] Renal function 2000 panelon 10-10-2024 Albumin BCP dye [Mass/Vol] 3.4 g/dL Normal 3.4-5.0 [facility] Comment on above: Performed By: #### 2 4362-6 ####ANNETTE GARCIA L ([id number])[facility] ([facility] [place])[address] [place] [address] Anion gap [Moles/Vol] 10 mmol/L Normal 10-20 [facility] Comment on above: Performed By: #### 2 4362-6 ####ANNETTE Castle ([id number])[facility] ([facility] [place])[address] [place] [address] Calcium [Mass/Vol] 7.9 mg/dL Low 8.6-10.6 [facility] Comment on above: Performed By: #### 2 4362-6 ####ANNETTE GARCIA L ([id number])[facility] ([facility] [place])[address] [place] [address] Chloride [Moles/Vol] 106 mmol/L Normal 98-107 [facility] Comment on above: Performed By: #### 2 4362-6 ####ANNETTE GARCIA L ([id number])[facility] ([facility] [place])[address] [place] [address] CO2 [Moles/Vol] 30 mmol/L Normal 21-32 [facility] Comment on above: Performed By: #### 2 4362-6 ####ANNETET GARCIA L ([id number])[facility] ([facility] [place])[address] [place] [address] Creatinine [Mass/Vol] 0.79 mg/dL Normal 0.50-1.30 [facility] Comment on above: Performed By: #### 2 4362-6 ####ANNETTE ELIZABETHER L ([id number])[facility] ([facility] [place])[address] [place] [address] Glomerular filtration rate >90 Normal >60 [facility] Comment on above: Result Comment: Calc ulations of estimated GFR are performed using the 2020 CKD-EPI Study Refit equation without the race variable for the IDMS-Traceable creatinine methods.https://jasn.asnjournals.org/content/early// ASN.3786123960 Performed By: #### 2 4362-6 ####ANNETTE GARCIA L ([id number])[facility] ([facility] [place])[address] [place] [address] Glucose [Mass/Vol] 71 mg/dL Low 74-99 [facility] Comment on above: Performed By: #### 2 4362-6 ####ANNETTE GARCIA L ([id number])[facility] ([facility] [place])[address] [place] [address] Phosphate [Mass/Vol] 2.0 mg/dL Low 2.5-4.9 [facility] Comment on above: Result Comment: MILD HEMOLYSIS DETECTED. The result may be falsely elevated due to hemolysis or other interferents. Clinical correlation is recommended. Repeat testing may be considered. Performed By: #### 2 4362-6 ####ANNETTE YEBOAHMORENATE L ([id number])[facility] ([facility] [place])[address] [place] [address] Potassium [Moles/Vol] 3.7 mmol/L Normal 3.5-5.3 [facility] Comment on above: Result Comment: MILD HEMOLYSIS DETECTED. The result may be falsely elevated due to hemolysis or other interferents. Clinical correlation is recommended. Repeat testing may be considered. Performed By: #### 2 4362-6 ####ANNETTE Castle ([id number])[facility] ([facility] [place])[address] [place] [address] Sodium [Moles/Vol] 142 mmol/L Normal 136-145 [facility] Comment on above: Performed By: #### 2 4362-6 ####ANNETTE Castle ([id number])[facility] ([facility] [place])[address] [place] [address] Urea nitrogen [Mass/Vol] 37 mg/dL High 6-23 [facility] Comment on above: Performed By: #### 2 4362-6 ####ANNETTE Castle ([id number])[facility] ([facility] [place])[address] [place] [address] Albumin BCP dye [Mass/Vol] 3.5 g/dL Normal 3.4-5.0 [facility] Comment on above: Performed By: #### 2 4362-6 ####ANNETTE GARCIA L ([id number])[facility] ([facility] [place])[address] [place] [address] Anion gap [Moles/Vol] 9 mmol/L Low 10-20 [facility] Comment on above: Performed By: #### 2 4362-6 ####ANNETTE GARCIA L ([id number])[facility] ([facility] [place])[address] [place] [address] Calcium [Mass/Vol] 8.2 mg/dL Low 8.6-10.6 [facility] Comment on above: Performed By: #### 2 4362-6 ####ANNETTE GARCIA L ([id number])[facility] ([facility] [place])[address] [place] [address] Chloride [Moles/Vol] 105 mmol/L Normal 98-107 [facility] Comment on above: Performed By: #### 2 4362-6 ####ANNETTE Castle ([id number])[facility] ([facility] [place])[address] [place] [address] CO2 [Moles/Vol] 31 mmol/L Normal 21-32 [facility] Comment on above: Performed By: #### 2 4362-6 ####ANNETTE GARCIA L ([id number])[facility] ([facility] [place])[address] [place] [address] Creatinine [Mass/Vol] 0.99 mg/dL Normal 0.50-1.30 [facility] Comment on above: Performed By: #### 2 4362-6 ####ANNETTE GARCIA L ([id number])[facility] ([facility] [place])[address] [place] [address] Glomerular filtration rate 79 mL/min/1.73m*2 Normal >60 [facility] Comment on above: Result Comment: Calc ulations of estimated GFR are performed using the 2020 CKD-EPI Study Refit equation without the race variable for the IDMS-Traceable creatinine methods.https://jasn.asnjournals.org/content// ASN.0788647909 Performed By: #### 2 4362-6 ####ANNETTE GARCIA L ([id number])[facility] ([facility] [place])[address] [place] [address] Glucose [Mass/Vol] 99 mg/dL Normal 74-99 [facility] Comment on above: Performed By: #### 2 4362-6 ####ANNETTE GARCIA L (53451)[facility] ([facility] [place])[address] [place] [address] Phosphate [Mass/Vol] 2.6 mg/dL Normal 2.5-4.9 [facility] Comment on above: Result Comment: MILD HEMOLYSIS DETECTED. The result may be falsely elevated due to hemolysis or other interferents. Clinical correlation is recommended. Repeat testing may be considered. Performed By: #### 2 4362-6 ####ANNETTE Castle ([id number])[facility] ([facility] [place])[address] [place] [address] Potassium [Moles/Vol] 3.9 mmol/L Normal 3.5-5.3 [facility] Comment on above: Result Comment: MILD HEMOLYSIS DETECTED. The result may be falsely elevated due to hemolysis or other interferents. Clinical correlation is recommended. Repeat testing may be considered. Performed By: #### 2 4362-6 ####ANNETTE Castle ([id number])[facility] ([facility] [place])[address] [place] [address] Sodium [Moles/Vol] 141 mmol/L Normal 136-145 [facility] Comment on above: Performed By: #### 2 4362-6 ####ANNETTE Castle ([id number])[facility] ([facility] [place])[address] [place] [address] Urea nitrogen [Mass/Vol] 39 mg/dL High 6-23 [facility] Comment on above: Performed By: #### 2 4362-6 ####ANNETTE Castle ([id number])[facility] ([facility] [place])[address] [place] [address] CBC panel Auto (Bld)on 10-09 Erythrocyte distribution width (RBC) [Ratio] 16.4 % High 11.5-14.5 [facility] Comment on above: Performed By: #### 5 8410-2 ####ANNETTE Castle ([id number])[facility] ([facility] [place])[address] [place] [address] Hematocrit (Bld) [Volume fraction] 34.1 % Low 41.0-52.0 [facility] Comment on above: Performed By: #### 5 8410-2 ####ANNETTE Castle (86830)[facility] ([facility] [place])[address]69 [place] [address] Hemoglobin (Bld) [Mass/Vol] 10.9 g/dL Low 13.5-17.5 [facility] Comment on above: Performed By: #### 5 8410-2 ####ANNETTE Castle ([id number])[facility] ([facility] [place])[address] [place] [address] MCH (RBC) [Entitic mass] 29.1 pg Normal 26.0-34.0 [facility] Comment on above: Performed By: #### 5 8410-2 ####NANETTE Castle ([id number])[facility] ([facility] [place])[address]84 [place] [address] MCHC (RBC) [Mass/Vol] 32.0 g/dL Normal 32.0-36.0 [facility] Comment on above: Performed By: #### 5 8410-2 ####ANNETTE Castle ([id number])[facility] ([facility] [place])[address] [place] [address] MCV (RBC) [Entitic vol] 91 fL Normal 80-100 [facility] Comment on above: Performed By: #### 5 8410-2 ####ANNETTE Castle (63554)[facility] ([facility] [place])[address] [place] [address] Nucleated RBC/100 WBC (Bld) [Ratio] 0.0 /100 WBCs Normal 0.0-0.0 [facility] Comment on above: Performed By: #### 5 8410-2 ####ANNETTE Castle ([id number])[facility] ([facility] [place])[address]406 [place] [address] Platelets (Bld) [#/Vol] 101 x10*3/uL Low 150-450 [facility] Comment on above: Performed By: #### 5 8410-2 ####ANNETTE Castle ([id number])[facility] ([facility] [place])[address] [place] [address] RBC (Bld) [#/Vol] 3.75 x10*6/uL Low 4.50-5.90 [facility] Comment on above: Performed By: #### 5 8410-2 ####ANNETTE Castle ([id number])[facility] ([facility] [place])[address] [place] [address] WBC (Bld) [#/Vol] 12.2 x10*3/uL High 4.4-11.3 [facility] Comment on above: Performed By: #### 5 8410-2 ####ANNETTE Castle ([id number])[facility] ([facility] [place])[address] [place] [address] Erythrocyte distribution width (RBC) [Ratio] 16.1 % High 11.5-14.5 [facility] Comment on above: Performed By: #### 5 8410-2 ####ANNETTE Castle (24527)[facility] ([facility] [place])[address] [place] [address] Hematocrit (Bld) [Volume fraction] 36.4 % Low 41.0-52.0 [facility] Comment on above: Performed By: #### 5 8410-2 ####ANNETTE Castle (12571)[facility] ([facility] [place])[address] [place] [address] Hemoglobin (Bld) [Mass/Vol] 11.4 g/dL Low 13.5-17.5 [facility] Comment on above: Performed By: #### 5 8410-2 ####ANNETTE Castle ([id number])[facility] ([facility] [place])[address] [place] [address] MCH (RBC) [Entitic mass] 28.9 pg Normal 26.0-34.0 [facility] Comment on above: Performed By: #### 5 8410-2 ####ANNETTE Castle ([id number])[facility] ([facility] [place])[address] [place] [address] MCHC (RBC) [Mass/Vol] 31.3 g/dL Low 32.0-36.0 [facility] Comment on above: Performed By: #### 5 8410-2 ####ANNETTE Castle ([id number])[facility] ([facility] [place])[address] [place] [address] MCV (RBC) [Entitic vol] 92 fL Normal 80-100 U [facility] Comment on above: Performed By: #### 5 8410-2 ####ANNETTE Castle ([id number])[facility] ([facility] [place])[address] [place] [address] 690[address] Nucleated RBC/100 WBC (Bld) [Ratio] 0.0 /100 WBCs Normal 0.0-0.0 [facility] Comment on above: Performed By: #### 5 8410-2 ####ANNETTE Castle ([id number])[facility] ([facility] [place])[address] [place] [address] Platelets (Bld) [#/Vol] 92 x10*3/uL Low 150-450 [facility] Comment on above: Performed By: #### 5 8410-2 ####ANNETTE Castle ([id number])[facility] ([facility] [place])[address] [place] [address] RBC (Bld) [#/Vol] 3.95 x10*6/uL Low 4.50-5.90 [facility] Comment on above: Performed By: #### 5 8410-2 ####ANNETTE Castle ([id number])[facility] ([facility] [place])[address] [place] [address] WBC (Bld) [#/Vol] 13.1 x10*3/uL High 4.4-11.3 [facility] Comment on above: Performed By: #### 5 8410-2 ####ANNETTE Castle ([id number])[facility] ([facility] [place])[address] [place] [address] Calcium.ionizedon 10-09-2024 Calcium.ionized (Bld) [Moles/Vol] 1.16 mmol/L Normal 1.1-1.33 [facility] Comment on above: Result Comment: The performance characteristics of ionized calcium testedin heparinized plasma or serum have [facility].Testing on heparinized plasma or serum is not approved bythe FDA; however, such approval is not necessary. Performed By: #### 1 994-3 ####ANNETTE Castle (14453)[facility] ([facility] [place])[address] [place] [address] Coagulation surface inducedo n 10-09-2024 aPTT Coag (PPP) [Time] 48 s High 26-36 [facility] Comment on above: Order Comment: Obtai n two hours after any Bivalrudin or Argatroban dosage change. Nursing to release order.The APTT is no longer used for monitoring Unfractionated Heparin Therapy. For monitoring Heparin Therapy, use the Heparin Assay. Performed By: #### 1 4979-9 ####ANNETTE Castle ([id number])[facility] ([facility] [place])[address] [place] [address] aPTT Coag (PPP) [Time] 51 s High 26-36 [facility] Comment on above: Order Comment: Obtai n two hours after any Bivalrudin or Argatroban dosage change. Nursing to release order.The APTT is no longer used for monitoring Unfractionated Heparin Therapy. For monitoring Heparin Therapy, use the Heparin Assay. Performed By: #### 1 4979-9 ####ANNETTE Castle ([id number])[facility] ([facility] [place])[address]87 [place] [address] aPTT Coag (PPP) [Time] 46 s High 26-36 [facility] Comment on above: Order Comment: Obtai n two hours after any Bivalrudin or Argatroban dosage change. Nursing to release order.The APTT is no longer used for monitoring Unfractionated Heparin Therapy. For monitoring Heparin Therapy, use the Heparin Assay. Performed By: #### 1 4979-9 ####ANNETTE Castle ([id number])[facility] ([facility])[address]31 [place] [address] aPTT Coag (PPP) [Time] 31 s Normal 26-36 [facility] Comment on above: Order Comment: Obtai n two hours after any Bivalrudin or Argatroban dosage change. Nursing to release order.The APTT is no longer used for monitoring Unfractionated Heparin Therapy. For monitoring Heparin Therapy, use the Heparin Assay. Performed By: #### 1 4979-9 ####ANNETTE Castle ([id number])[facility] ([facility])[address]38 [place] [address] Glucose Test strip manual (B ld) [Mass/Vol]on 10-09-2024 Glucose [Mass/Vol] 134 mg/dL High -[address] [place] [address] Comment on above: Performed By: #### 2 341-6 ####ANNETTE Castle (50536)[facility] ([facility])[address]67 [place] [address] Glucose [Mass/Vol] 121 mg/dL High [address] [place] [address] Comment on above: Performed By: #### 2 341-6 ####ANNETTE Castle ([id number])[facility] ([facility])[address]993 [place] [address] Glucose [Mass/Vol] 123 mg/dL High [address] [place] [address] Comment on above: Performed By: #### 2 341-6 ####ANNETTE Castle ([id number])[facility] ([facility])[address]12 [place] [address] Glucose [Mass/Vol] 93 mg/dL Normal [address] [place] [address] Comment on above: Performed By: #### 2 341-6 ####ANNETTE Castle ([id number])[facility] ([facility])[address]66 [place] [address] Glucose [Mass/Vol] 86 mg/dL Normal [address] [place] [address] Comment on above: Performed By: #### 2 341-6 ####ANNETTE Castle ([id number])[facility] ([facility])[address]606 [place] [address] Magnesiumon 10-09-2024 Magnesium [Mass/Vol] 2.32 mg/dL Normal 1.60-2.40 [facility] Comment on above: Performed By: #### 1 9123-9 ####ANNETTE Castle ([id number])[facility] ([facility])[address]39 [place] [address] Magnesium [Mass/Vol] 2.28 mg/dL Normal 1.60-2.40 [facility] Comment on above: Performed By: #### 1 9123-9 ####ANNETTE Castle ([id number])[facility] ([facility])[address] [place] [address] PT and aPTT panel Coag (PPP) on 10-09-2024 aPTT Coag (PPP) [Time] 33 s Normal 26-36 [facility] Comment on above: Order Comment: The A PTT is no longer used for monitoring Unfractionated Heparin Therapy. For monitoring Heparin Therapy, use the Heparin Assay. Performed By: #### 3 4529-8 ####ANNETTE Castle ([id number])[facility] ([facility])[address] [place] [address] INR Coag (PPP) [Relative time] 1.6 High 0.9-1.1 [facility] Comment on above: Order Comment: The A PTT is no longer used for monitoring Unfractionated Heparin Therapy. For monitoring Heparin Therapy, use the Heparin Assay. Performed By: #### 3 4529-8 ####ANNETTE Castle ([id number])[facility] ([facility])[address] [place] [address]20 PT Coag (PPP) [Time] 18.1 s High 9.8-12.4 [facility] Comment on above: Order Comment: The A PTT is no longer used for monitoring Unfractionated Heparin Therapy. For monitoring Heparin Therapy, use the Heparin Assay. Performed By: #### 3 4529-8 ####ANNETTE Castle ([id number])[facility] ([facility])[address] [place] [address] 52476 Renal function 2000 panelon 10-09-2024 Albumin BCP dye [Mass/Vol] 3.3 g/dL Low 3.4-5.0 [facility] Comment on above: Performed By: #### 2 4362-6 ####ANNETTE Castle ([id number])[facility] ([facility])[address] [place] [address] Anion gap [Moles/Vol] 10 mmol/L Normal 10-20 [facility] Comment on above: Performed By: #### 2 4362-6 ####ANNETTE GARCIA L ([id number])[facility] ([facility])[address] [place] [address] Calcium [Mass/Vol] 8.4 mg/dL Low 8.6-10.6 [facility] Comment on above: Performed By: #### 2 4362-6 ####ANNETTE Castle ([id number])[facility] ([facility])[address] [place], [place] [address] Chloride [Moles/Vol] 104 mmol/L Normal 98-107 [facility] Comment on above: Performed By: #### 2 4362-6 ####ANNETTE GARCIA L ([id number])[facility] ([facility])[address] [place] [address] CO2 [Moles/Vol] 31 mmol/L Normal 21-32 [facility] Comment on above: Performed By: #### 2 4362-6 ####ANNETTE GARCIA L ([id number])[facility] ([facility])[address] [place] [address] Creatinine [Mass/Vol] 1.04 mg/dL Normal 0.50-1.30 [facility] Comment on above: Performed By: #### 2 4362-6 ####ANNETTE RAMSEYTZVISHNU L ([id number])[facility] ([facility])[address] [place] [address] Glomerular filtration rate 75 mL/min/1.73m*2 Normal >60 [facility] Comment on above: Result Comment: Calc ulations of estimated GFR are performed using the 2020 CKD-EPI Study Refit equation without the race variable for the IDMS-Traceable creatinine methods.https://jasn.asnjournals.org/content// ASN.6269079490 Performed By: #### 2 4362-6 ####ANNETTE Castle ([id number])[facility] ([facility])[address] [place] [address] Glucose [Mass/Vol] 131 mg/dL High 74-99 [facility] Comment on above: Performed By: #### 2 4362-6 ####ANNETTE GARCIA L (51061)[facility] ([facility])[address] [place] [address] Phosphate [Mass/Vol] 2.8 mg/dL Normal 2.5-4.9 [facility] Comment on above: Result Comment: MILD HEMOLYSIS DETECTED. The result may be falsely elevated due to hemolysis or other interferents. Clinical correlation is recommended. Repeat testing may be considered. Performed By: #### 2 4362-6 ####ANNETTE Castle ([id number])[facility] ([facility])[address] [place] [address] Potassium [Moles/Vol] 3.9 mmol/L Normal 3.5-5.3 [facility] Comment on above: Result Comment: MILD HEMOLYSIS DETECTED. The result may be falsely elevated due to hemolysis or other interferents. Clinical correlation is recommended. Repeat testing may be considered. Performed By: #### 2 4362-6 ####ANNETTE GARCIA L ([id number])[facility] ([facility])[address] [place] [address] Sodium [Moles/Vol] 141 mmol/L Normal 136-145 [facility] Comment on above: Performed By: #### 2 4362-6 ####ANNETTE GARCIA L ([id number])[facility] ([facility])[address] [place] [address] Urea nitrogen [Mass/Vol] 40 mg/dL High 6-23 [facility] Comment on above: Performed By: #### 2 4362-6 ####ANNETTE Castle (85149)[facility] ([facility])[address] [place] [address] Albumin BCP dye [Mass/Vol] 3.5 g/dL Normal 3.4-5.0 [facility] Comment on above: Performed By: #### 2 4362-6 ####ANNETTE GARCIA L ([id number])[facility] ([facility])[address]63 [place] [address] Anion gap [Moles/Vol] 12 mmol/L Normal 10-20 [facility] Comment on above: Performed By: #### 2 4362-6 ####ANNETTE GARCIA L ([id number])[facility] ([facility])[address] [place] [address] Calcium [Mass/Vol] 8.6 mg/dL Normal 8.6-10.6 [facility] Comment on above: Performed By: #### 2 4362-6 ####ANNETTE GARCIA L (73615)[facility] ([facility])[address] [place] [address] Chloride [Moles/Vol] 104 mmol/L Normal 98-107 [facility] Comment on above: Performed By: #### 2 4362-6 ####ANNETTE GARCIA L ([id number])[facility] ([facility])[address] [place] [address] CO2 [Moles/Vol] 30 mmol/L Normal 21-32 [facility] Comment on above: Performed By: #### 2 4362-6 ####ANNETTE GARCIA L ([id number])[facility] ([facility])[address]88 [place] [address] Creatinine [Mass/Vol] 1.10 mg/dL Normal 0.50-1.30 [facility] Comment on above: Performed By: #### 2 4362-6 ####ANNETTE GARCIA L ([id number])[facility] ([facility])[address] [place] [address] Glomerular filtration rate 70 mL/min/1.73m*2 Normal >60 [facility] Comment on above: Result Comment: Calc ulations of estimated GFR are performed using the 2020 CKD-EPI Study Refit equation without the race variable for the IDMS-Traceable creatinine methods.https://jasn.asnjournals.org/content// ASN.2878850877 Performed By: #### 2 4362-6 ####ANNETTE Castle (84253)[facility] ([facility])[address] [place] [address] Glucose [Mass/Vol] 96 mg/dL Normal 74-99 [facility] Comment on above: Performed By: #### 2 4362-6 ####ANNETTE Castle ([id number])[facility] ([facility])[address]205 [place] [address] Phosphate [Mass/Vol] 3.2 mg/dL Normal 2.5-4.9 [facility] Comment on above: Result Comment: MILD HEMOLYSIS DETECTED. The result may be falsely elevated due to hemolysis or other interferents. Clinical correlation is recommended. Repeat testing may be considered. Performed By: #### 2 4362-6 ####ANNETTE Castle ([id number])[facility] ([facility])[address] [place] [address] Potassium [Moles/Vol] 3.9 mmol/L Normal 3.5-5.3 [facility] Comment on above: Result Comment: MILD HEMOLYSIS DETECTED. The result may be falsely elevated due to hemolysis or other interferents. Clinical correlation is recommended. Repeat testing may be considered. Performed By: #### 2 4362-6 ####ANNETTE Castle ([id number])[facility] ([facility])[address]40 [place] [address] Sodium [Moles/Vol] 142 mmol/L Normal 136-145 [facility] Comment on above: Performed By: #### 2 4362-6 ####ANNETTE Castle (17247)[facility] ([facility])[address]268 [place] [address] Urea nitrogen [Mass/Vol] 43 mg/dL High 6-23 [facility] Comment on above: Performed By: #### 2 4362-6 ####ANNETTE Castle ([id number])[facility] ([facility])[address]551 [place] [address] XR ABDOMEN 1 VIEWon 10-10-19 XR ABDOMEN 1 VIEW Normal [facility] XR CHEST 1 VIEWon 10-09-2024 XR CHEST 1 VIEW Normal [facility] CBC panel Auto (Bld)on 10-08 Erythrocyte distribution width (RBC) [Ratio] 16.3 % High 11.5-14.5 [facility] Comment on above: Performed By: #### 5 8410-2 ####ANNETTE Castle ([id number])[facility] ([facility])[address]31 [place] [address] Hematocrit (Bld) [Volume fraction] 36.3 % Low 41.0-52.0 [facility] Comment on above: Performed By: #### 5 8410-2 ####ANNETTE Castle ([id number])[facility] ([facility])[address]19 [place] [address] Hemoglobin (Bld) [Mass/Vol] 11.5 g/dL Low 13.5-17.5 [facility] Comment on above: Performed By: #### 5 8410-2 ####ANNETTE Castle ([id number])[facility] ([facility])[address]67 [place] [address] MCH (RBC) [Entitic mass] 28.8 pg Normal 26.0-34.0 [facility] Comment on above: Performed By: #### 5 8410-2 ####ANNETTE Castle ([id number])[facility] ([facility])[address]073 [place] [address] MCHC (RBC) [Mass/Vol] 31.7 g/dL Low 32.0-36.0 [facility] Comment on above: Performed By: #### 5 8410-2 ####ANNETTE Castle (01170)[facility] ([facility])[address]17 [place] [address] MCV (RBC) [Entitic vol] 91 fL Normal 80-100 [facility] Comment on above: Performed By: #### 5 8410-2 ####ANNETTE Castle ([id number])[facility] ([facility])[address]003 [place] [address] Nucleated RBC/100 WBC (Bld) [Ratio] 0.0 /100 WBCs Normal 0.0-0.0 [facility] Comment on above: Performed By: #### 5 8410-2 ####ANNETTE Castle (85410)[facility] ([facility])[address] [place] [address] Platelets (Bld) [#/Vol] 71 x10*3/uL Low 150-450 [facility] Comment on above: Performed By: #### 5 8410-2 ####ANNETTE Castle ([id number])[facility] ([facility])[address]207 [place] [address] RBC (Bld) [#/Vol] 3.99 x10*6/uL Low 4.50-5.90 [facility] Comment on above: Performed By: #### 5 8410-2 ####ANNETTE Castle ([id number])[facility] ([facility])[address]35 [place] [address] WBC (Bld) [#/Vol] 13.0 x10*3/uL High 4.4-11.3 [facility] Comment on above: Performed By: #### 5 8410-2 ####ANNETTE Castle ([id number])[facility] ([facility])[address]18 [place] [address] Erythrocyte distribution width (RBC) [Ratio] 16.7 % High 11.5-14.5 [facility] Comment on above: Performed By: #### 5 8410-2 ####ANNETTE Castle (30928)[facility] ([facility])[address]34 [place] [address] Hematocrit (Bld) [Volume fraction] 34.2 % Low 41.0-52.0 [facility] Comment on above: Performed By: #### 5 8410-2 ####ANNETTE Castle ([id number])[facility] ([facility])[address] [place] [address] Hemoglobin (Bld) [Mass/Vol] 10.7 g/dL Low 13.5-17.5 [facility] Comment on above: Performed By: #### 5 8410-2 ####ANNETTE Castle ([id number])[facility] ([facility])[address] [place] [address] MCH (RBC) [Entitic mass] 28.0 pg Normal 26.0-34.0 [facility] Comment on above: Performed By: #### 5 8410-2 ####ANNETTE Castle ([id number])[facility] ([facility])[address] [place] [address] MCHC (RBC) [Mass/Vol] 31.3 g/dL Low 32.0-36.0 [facility] Comment on above: Performed By: #### 5 8410-2 ####ANNETTE Castle (49943)[facility] ([facility])[address] [place] [address] MCV (RBC) [Entitic vol] 90 fL Normal 80-100 [facility] Comment on above: Performed By: #### 5 8410-2 ####ANNETTE Castle (31125)[facility] ([facility])[address] [place] [address] Nucleated RBC/100 WBC (Bld) [Ratio] 0.0 /100 WBCs Normal 0.0-0.0 [facility] Comment on above: Performed By: #### 5 8410-2 ####ANNETTE Castle (32361)[facility] ([facility])[address]476 [place] [address] Platelets (Bld) [#/Vol] 59 x10*3/uL Low 150-450 [facility] Comment on above: Performed By: #### 5 8410-2 ####ANNETTE Castle (91551)[facility] ([facility])[address]13 [place] [address] RBC (Bld) [#/Vol] 3.82 x10*6/uL Low 4.50-5.90 [facility] Comment on above: Performed By: #### 5 8410-2 ####ANNETTE Castle (13729)[facility] ([facility])[address]891 [place] [address] WBC (Bld) [#/Vol] 11.0 x10*3/uL Normal 4.4-11.3 [facility] Comment on above: Performed By: #### 5 8410-2 ####ANNETTE Castle ([id number])[facility] ([facility])[address]425 [place] [address] Calcium.ionizedon 10-08-2024 Calcium.ionized (Bld) [Moles/Vol] 1.15 mmol/L Normal 1.1-1.33 [facility] Comment on above: Result Comment: The performance characteristics of ionized calcium testedin heparinized plasma or serum have been [facility].Testing on heparinized plasma or serum is not [facility] FDA; however, such approval is not necessary. Performed By: #### 1 994-3 ####ANNETTE Castle (35403)[facility] ([facility])[address]77 [place] [address] Calcium.ionized (Bld) [Moles/Vol] 1.16 mmol/L Normal 1.1-1.33 [facility] Comment on above: Result Comment: The performance characteristics of ionized calcium testedin heparinized plasma or serum have been validated by [facility] where [facility] is performed.Testing on heparinized plasma or serum is not approved [facility] FDA; however, such approval is not necessary. Performed By: #### 1 994-3 ####ANNETTE Castle ([id number])[facility] ([facility])[address]059 [place] [address] Glucose Test strip manual (B ld) [Mass/Vol]on 10-08-2024 Glucose [Mass/Vol] 139 mg/dL High [address] [place] [address] Comment on above: Performed By: #### 2 341-6 ####ANNETTE GARCIA L ([id number])[facility] ([facility])[address]85 [place] [address] Glucose [Mass/Vol] 109 mg/dL High [address] [place] [address] Comment on above: Performed By: #### 2 341-6 ####ANNETTE GARCIA L (39118)[facility] ([facility])[address]60 [place] [address] Glucose [Mass/Vol] 104 mg/dL High [address] [place] [address] Comment on above: Performed By: #### 2 341-6 ####ANNETTE GARCIA L (52021)[facility] ([facility])[address]54 [place] [address] Glucose [Mass/Vol] 201 mg/dL High [address] [place] [address] Comment on above: Performed By: #### 2 341-6 ####ANNETTE GARCIA L ([id number])[facility] ([facility])[address]131 [place] [address] Glucose [Mass/Vol] 83 mg/dL Normal [address] [place] [address] Comment on above: Performed By: #### 2 341-6 ####ANNETTE GARCIA L ([id number])[facility] ([facility])[address]998 [place] [address] Glucose [Mass/Vol] 84 mg/dL Normal [address] [place] [address] Comment on above: Performed By: #### 2 341-6 ####ANNETTE GARCIA L ([id number])[facility] ([facility])[address]20 [place] [address] Glucose [Mass/Vol] 99 mg/dL Normal 74-99 [facility] Comment on above: Performed By: #### 2 341-6 ####ANNETTE Castle ([id number])[facility] ([facility])[address]21 [place] [address] Magnesiumon 10-08-2024 Magnesium [Mass/Vol] 2.29 mg/dL Normal 1.60-2.40 [facility] Comment on above: Result Comment: MILD HEMOLYSIS DETECTED. The result may be falsely elevated due to hemolysis or other interferents. Clinical correlation is recommended. Repeat testing may be considered. Performed By: #### 1 9123-9 ####ANNETTE Castle (54043)[facility] ([facility])[address]386 [place] [address] Magnesium [Mass/Vol] 2.25 mg/dL Normal 1.60-2.40 [facility] Comment on above: Performed By: #### 1 9123-9 ####ANNETTE Castle (26327)[facility] ([facility])[address] [place] [address] PT and aPTT panel Coag (PPP) on 10-08-2024 aPTT Coag (PPP) [Time] 47 s High 26-36 [facility] Comment on above: Order Comment: The A PTT is no longer used for monitoring Unfractionated Heparin Therapy. For monitoring Heparin Therapy, use the Heparin Assay. Performed By: #### 3 4529-8 ####ANNETTE Castle ([id number])[facility] ([facility])[address]19 [place] [address] INR Coag (PPP) [Relative time] 1.8 High 0.9-1.1 [facility] Comment on above: Order Comment: The A PTT is no longer used for monitoring Unfractionated Heparin Therapy. For monitoring Heparin Therapy, use the Heparin Assay. Performed By: #### 3 4529-8 ####ANNETTE Castle ([id number])[facility] ([facility])[address] [place] [address] PT Coag (PPP) [Time] 20.2 s High 9.8-12.4 [facility] Comment on above: Order Comment: The A PTT is no longer used for monitoring Unfractionated Heparin Therapy. For monitoring Heparin Therapy, use the Heparin Assay. Performed By: #### 3 4529-8 ####ANNETTE Castle ([id number])[facility] ([facility])[address] [place] [address] Renal function 2000 panelon 10-08-2024 Albumin BCP dye [Mass/Vol] 3.7 g/dL Normal 3.4-5.0 [facility] Comment on above: Performed By: #### 2 4362-6 ####ANNETTE Castle ([id number])[facility] ([facility])[address] [place] [address] Anion gap [Moles/Vol] 13 mmol/L Normal 10-20 [facility] Comment on above: Performed By: #### 2 4362-6 ####ANNETTE Castle ([id number])[facility] ([facility])[address] [place] [address] Calcium [Mass/Vol] 8.4 mg/dL Low 8.6-10.6 [facility] Comment on above: Performed By: #### 2 4362-6 ####ANNETTE Castle ([id number])[facility] ([facility])[address] [place] [address] Chloride [Moles/Vol] 107 mmol/L Normal 98-107 [facility] Comment on above: Performed By: #### 2 4362-6 ####ANNETTE Castle ([id number])[facility] ([facility])[address] [place] [address] CO2 [Moles/Vol] 27 mmol/L Normal 21-32 [facility] Comment on above: Performed By: #### 2 4362-6 ####ANNETTE Castle ([id number])[facility] ([facility])[address]88 [place] [address] Creatinine [Mass/Vol] 1.01 mg/dL Normal 0.50-1.30 [facility] Comment on above: Performed By: #### 2 4362-6 ####ANNETTE Castle ([id number])[facility] ([facility])[address]23 [place] [address] Glomerular filtration rate 78 mL/min/1.73m*2 Normal >60 [facility] Comment on above: Result Comment: Calc ulations of estimated GFR are performed using the 2020 CKD-EPI Study Refit equation without the race variable for the IDMS-Traceable creatinine methods.https://jasn.asnjournals.org/content// ASN.4598242976 Performed By: #### 2 4362-6 ####ANNETTE Castle ([id number])[facility] ([facility])[address]33 [place] [address] Glucose [Mass/Vol] 189 mg/dL High 74-99 [facility] Comment on above: Performed By: #### 2 4362-6 ####ANNETTE Castle (90926)[facility] ([facility])[address]398 [place] [address] Phosphate [Mass/Vol] 2.5 mg/dL Normal 2.5-4.9 [facility] Comment on above: Result Comment: MILD HEMOLYSIS DETECTED. The result may be falsely elevated due to hemolysis or other interferents. Clinical correlation is recommended. Repeat testing may be considered. Performed By: #### 2 4362-6 ####ANNETTE Castle (09277)[facility] ([facility])[address]20 [place] [address] Potassium [Moles/Vol] 4.5 mmol/L Normal 3.5-5.3 [facility] Comment on above: Result Comment: MILD HEMOLYSIS DETECTED. The result may be falsely elevated due to hemolysis or other interferents. Clinical correlation is recommended. Repeat testing may be considered. Performed By: #### 2 4362-6 ####ANNETTE Castle (59748)[facility] ([facility])[address]366 [place] [address] Sodium [Moles/Vol] 142 mmol/L Normal 136-145 [facility] Comment on above: Performed By: #### 2 4362-6 ####ANNETTE Castle (64509)[facility] ([facility])[address]20 [place] [address] Urea nitrogen [Mass/Vol] 44 mg/dL High 6-23 [facility] Comment on above: Performed By: #### 2 4362-6 ####ANNETTE Castle (58790)[facility] ([facility])[address]998 [place] [address] Albumin BCP dye [Mass/Vol] 3.4 g/dL Normal 3.4-5.0 [facility] Comment on above: Performed By: #### 2 4362-6 ####ANNETTE Castle ([id number])[facility] ([facility])[address]018 [place] [address] Anion gap [Moles/Vol] 12 mmol/L Normal 10-20 [facility] Comment on above: Performed By: #### 2 4362-6 ####ANNETTE Castle ([id number])[facility] ([facility])[address]64 [place] [address] Calcium [Mass/Vol] 8.4 mg/dL Low 8.6-10.6 [facility] Comment on above: Performed By: #### 2 4362-6 ####ANNETTE Castle (65331)[facility] ([facility])[address]167 [place] [address] Chloride [Moles/Vol] 108 mmol/L High 98-107 [facility] Comment on above: Performed By: #### 2 4362-6 ####ANNETTE Castle (85003)[facility] ([facility])[address]244 [place] [address] CO2 [Moles/Vol] 30 mmol/L Normal 21-32 [facility] Comment on above: Performed By: #### 2 4362-6 ####ANNETTE ELIZABETHER L (93060)[facility] ([facility])[address]44 [place] [address] Creatinine [Mass/Vol] 1.06 mg/dL Normal 0.50-1.30 [facility] Comment on above: Performed By: #### 2 4362-6 ####ANNETTE ELIZABETHER L ([id number])[facility] ([facility])[address]66 [place] [address] Glomerular filtration rate 73 mL/min/1.73m*2 Normal >60 [facility] Comment on above: Result Comment: Calc ulations of estimated GFR are performed using the 2020 CKD-EPI Study Refit equation without the race variable for the IDMS-Traceable creatinine methods.https://jasn.asnjournals.org/content// ASN.6636617294 Performed By: #### 2 4362-6 ####ANNETTE GARCIA L ([id number])[facility] ([facility])[address]478 [place] [address] Glucose [Mass/Vol] 91 mg/dL Normal 74-99 [facility] Comment on above: Performed By: #### 2 4362-6 ####ANNETTE YEBOAHMOTZER L (69363)[facility] ([facility])[address]22 [place] [address] Phosphate [Mass/Vol] 3.3 mg/dL Normal 2.5-4.9 [facility] Comment on above: Performed By: #### 2 4362-6 ####ANNETTE ELIZABETHER L (70407)[facility] ([facility])[address]64 [place] [address] Potassium [Moles/Vol] 3.5 mmol/L Normal 3.5-5.3 [facility] Comment on above: Performed By: #### 2 4362-6 ####ANNETTE YEBOAHMOTZER L ([id number])[facility] ([facility])[address] [place] [address] Sodium [Moles/Vol] 146 mmol/L High 136-145 [facility] Comment on above: Performed By: #### 2 4362-6 ####ANNETTE Castle ([id number])[facility] ([facility])[address] [address] [place] [address] Urea nitrogen [Mass/Vol] 48 mg/dL High 6-23 [facility] [facility] Comment on above: Performed By: #### 2 4362-6 ####ANNETTE Castle ([id number])[facility] ([facility])[address] [facility] [place] [address] VASC US LOWER EXTREMITY VENO US DUPLEX BILATERALon 10-08-2024 VASC US LOWER EXTREMITY VENOUS DUPLEX BILATERAL Normal [facility] VASC US UPPER EXTREMITY VENO US DUPLEX BILATERALon 10-08-2024 VASC US UPPER EXTREMITY VENOUS DUPLEX BILATERAL Normal [facility] XR ABDOMEN 1 VIEWon 10-09-19 25 XR ABDOMEN 1 VIEW Normal [facility] Blood type and Indirect anti body screen panel (Bld)on 10-07-2024 ABO group Nom (Bld) A Normal [facility] Comment on above: Performed By: #### 3 4532-2 ####ANNETTE Castle ([id number])[facility] ([facility])[address] [place] [address] Blood group antibody screen Ql Negative [facility] Comment on above: Performed By: #### 3 4532-2 ####ANNETTE Castle ([id number])[facility] ([facility])[address] [facility] [address] D Ag Ql (Bld) Positive [facility] Comment on above: Performed By: #### 3 4532-2 ####ANNETET Castle ([id number])[facility] ([facility])[address] [place] [address] CBC panel Auto (Bld)on 10-07 Erythrocyte distribution width (RBC) [Ratio] 16.6 % High 11.5-14.5 [facility] Comment on above: Performed By: #### 5 8410-2 ####ANNETTE Castle ([id number])[facility] ([facility])[address] [place] [address] Hematocrit (Bld) [Volume fraction] 37.7 % Low 41.0-52.0 [facility] Comment on above: Performed By: #### 5 8410-2 ####ANNETTE Castle ([id number])[facility] ([facility])[address] [place] [address] Hemoglobin (Bld) [Mass/Vol] 11.6 g/dL Low 13.5-17.5 [facility] Comment on above: Performed By: #### 5 8410-2 ####ANNETTE Castle ([id number])[facility] ([facility])[address] [place] [address] MCH (RBC) [Entitic mass] 28.2 pg Normal 26.0-34.0 [facility] Comment on above: Performed By: #### 5 8410-2 ####ANNETTE Castle ([id number])[facility] ([facility])[address] [place] [address] MCHC (RBC) [Mass/Vol] 30.8 g/dL Low 32.0-36.0 [facility] Comment on above: Performed By: #### 5 8410-2 ####ANNETTE Castle ([id number])[facility] ([facility])[address] [place] [address] MCV (RBC) [Entitic vol] 92 fL Normal 80-100 U [facility] Comment on above: Performed By: #### 5 8410-2 ####ANNETTE Castle ([id number])[facility] ([facility])[address] [place] [address] Nucleated RBC/100 WBC (Bld) [Ratio] 0.0 /100 WBCs Normal 0.0-0.0 [facility] Comment on above: Performed By: #### 5 8410-2 ####ANNETTE Castle ([id number])[facility] ([facility])[address] [place] [address] Platelets (Bld) [#/Vol] 54 x10*3/uL Low 150-450 [facility] Comment on above: Performed By: #### 5 8410-2 ####ANNETTE Castle ([id number])[facility] ([facility])[address] [place] [address] RBC (Bld) [#/Vol] 4.11 x10*6/uL Low 4.50-5.90 [facility] Comment on above: Performed By: #### 5 8410-2 ####ANNETTE Castle ([id number])[facility] ([facility])[address] [place] [address] WBC (Bld) [#/Vol] 10.8 x10*3/uL Normal 4.4-11.3 [facility] Comment on above: Performed By: #### 5 8410-2 ####ANNETTE Castle ([id number])[facility] ([facility])[address] [place] [address] Erythrocyte distribution width (RBC) [Ratio] 16.7 % High 11.5-14.5 [facility] Comment on above: Performed By: #### 5 8410-2 ####ANNETTE Castle ([id number])[facility] ([facility])[address] [place] [address] Hematocrit (Bld) [Volume fraction] 35.4 % Low 41.0-52.0 [facility] Comment on above: Performed By: #### 5 8410-2 ####ANNETTE GARCIA L ([id number])[facility] ([facility])[address] [place] [address] Hemoglobin (Bld) [Mass/Vol] 10.6 g/dL Low 13.5-17.5 [facility] Comment on above: Performed By: #### 5 8410-2 ####ANNETTE Castle ([id number])[facility] ([facility])[address]276 [place] [address] MCH (RBC) [Entitic mass] 28.0 pg Normal 26.0-34.0 [facility] Comment on above: Performed By: #### 5 8410-2 ####ANNETTE Castle ([id number])[facility] ([facility])[address]70 [place] [address] MCHC (RBC) [Mass/Vol] 29.9 g/dL Low 32.0-36.0 [facility] Comment on above: Performed By: #### 5 8410-2 ####ANNETTE Castle ([id number])[facility] ([facility])[address]37 [place] [address] MCV (RBC) [Entitic vol] 94 fL Normal 80-100 U [facility] Comment on above: Performed By: #### 5 8410-2 ####ANNETTE Castle ([id number])[facility] ([facility])[address]16 [place] [address] Nucleated RBC/100 WBC (Bld) [Ratio] 0.0 /100 WBCs Normal 0.0-0.0 [facility] Comment on above: Performed By: #### 5 8410-2 ####ANNETTE Castle ([id number])[facility] ([facility])[address] [place] [address] Platelets (Bld) [#/Vol] 49 x10*3/uL Low 150-450 [facility] Comment on above: Performed By: #### 5 8410-2 ####ANNETTE Castle ([id number])[facility] ([facility])[address]26 [place] [address] RBC (Bld) [#/Vol] 3.78 x10*6/uL Low 4.50-5.90 [facility] Comment on above: Performed By: #### 5 8410-2 ####ANNETTE Castle ([id number])[facility] ([facility])[address] [place] [address] WBC (Bld) [#/Vol] 11.3 x10*3/uL Normal 4.4-11.3 [facility] Comment on above: Performed By: #### 5 8410-2 ####ANNETTE Castle ([id number])[facility] ([facility])[address] [place] [address] Calcium.ionizedon 10-07-2024 Calcium.ionized (Bld) [Moles/Vol] 1.18 mmol/L Normal 1.1-1.33 [facility] Comment on above: Result Comment: The performance characteristics of ionized calcium testedin heparinized plasma or serum have been validated [facility] where [facility].Testing on heparinized plasma or serum is not approved bythe FDA; however, such approval is not necessary. Performed By: #### 1 994-3 ####ANNETTE Castle (24527)[facility] ([facility])[address] [place] [address] Coagulation surface inducedo n 10-07-2024 aPTT Coag (PPP) [Time] 36 s Normal 26-36 [facility] Comment on above: Order Comment: Obtai n two hours after initiation of Bivalrudin or Argatroban. Nursing to release order.The APTT is no longer used for monitoring Unfractionated Heparin Therapy. For monitoring Heparin Therapy, use the Heparin Assay. Performed By: #### 1 4979-9 ####ANNETTE Castle ([id number])[facility] ([facility])[address] [place] [address] Fibrin D-dimeron 10-07-2024 Fibrin D-dimer FEU (PPP) [Mass/Vol] 778936 ng/mL FEU High <=500 [facility] Comment on above: Order Comment: The D -Dimer assay is reported in ng/mL Fibrinogen Equivalent Units (FEU). The results of this assay should NOT be used for the exclusion of Deep Vein Thrombosis and/or Pulmonary Embolism. Performed By: #### 4 8065-7 ####ANNETTE Castle ([id number])[facility] ([facility])[address] [place] [address] Fibrinogenon 10-07-2024 Fibrinogen Coag (PPP) [Mass/Vol] 259 mg/dL Normal 200-400 [facility] Comment on above: Performed By: #### 3 255-7 ####ANNETTE Castle ([id number])[facility] ([facility])[address] [place] [address] Glucose Test strip manual (B ld) [Mass/Vol]on 10-07-2024 Glucose [Mass/Vol] 142 mg/dL High 74-99 [facility] Comment on above: Performed By: #### 2 341-6 ####ANNETTE Castle ([id number])[facility] ([facility])[address] [place] [address] Glucose [Mass/Vol] 126 mg/dL High [address] [place] [address] Comment on above: Performed By: #### 2 341-6 ####ANNETTE Castle ([id number])[facility] ([facility])[address]779 [place] [address] Glucose [Mass/Vol] 123 mg/dL High [address] [place] [address] Comment on above: Performed By: #### 2 341-6 ####ANNETTE Castle ([id number])[facility] ([facility])[address]242 [place] [address] Glucose [Mass/Vol] 152 mg/dL High [address] [place] [address] Comment on above: Performed By: #### 2 341-6 ####ANNETTE Castle ([id number])[facility] ([facility])[address]893 [place] [address] Glucose [Mass/Vol] 126 mg/dL High [address] [place] [address] Comment on above: Performed By: #### 2 341-6 ####ANNETTE Castle ([id number])[facility] ([facility])[address]74 [place] [address] Glucose [Mass/Vol] 80 mg/dL Normal 74-99 [facility] Comment on above: Performed By: #### 2 341-6 ####ANNETTE Castle ([id number])[facility] ([facility])[address]71 [place] [address] Glucose [Mass/Vol] 142 mg/dL High 74-99 [facility] Comment on above: Performed By: #### 2 341-6 ####ANNETTE Castle ([id number])[facility] ([facility])[address]32 [place] [address] Magnesiumon 10-07-2024 Magnesium [Mass/Vol] 2.27 mg/dL Normal 1.60-2.40 [facility] Comment on above: Performed By: #### 1 9123-9 ####ANNETTE Castle ([id number])[facility] ([facility])[address] [place] [address] PT and aPTT panel Coag (PPP) on 10-07-2024 aPTT Coag (PPP) [Time] 23 s Low 26-36 [facility] Comment on above: Order Comment: The A PTT is no longer used for monitoring Unfractionated Heparin Therapy. For monitoring Heparin Therapy, use the Heparin Assay. Performed By: #### 3 4529-8 ####ANNETTE Castle ([id number])[facility] ([facility])[address] [place] [address] INR Coag (PPP) [Relative time] 1.4 High 0.9-1.1 [facility] Comment on above: Order Comment: The A PTT is no longer used for monitoring Unfractionated Heparin Therapy. For monitoring Heparin Therapy, use the Heparin Assay. Performed By: #### 3 4529-8 ####ANNETTE Castle ([id number])[facility] ([facility])[address]605 [place] [address] PT Coag (PPP) [Time] 15.6 s High 9.8-12.4 [facility] Comment on above: Order Comment: The A PTT is no longer used for monitoring Unfractionated Heparin Therapy. For monitoring Heparin Therapy, use the Heparin Assay. Performed By: #### 3 4529-8 ####ANNETTE Castle ([id number])[facility] ([facility])[address] [place] [address] Renal function 2000 panelon 10-07-2024 Albumin BCP dye [Mass/Vol] 3.4 g/dL Normal 3.4-5.0 [facility] Comment on above: Performed By: #### 2 4362-6 ####ANNETTE Castle ([id number])[facility] ([facility])[address]668 [place] [address] Anion gap [Moles/Vol] 10 mmol/L Normal 10-20 [facility] Comment on above: Performed By: #### 2 4362-6 ####ANNETTE Castle ([id number])[facility] ([facility])[address] [place] [address] Calcium [Mass/Vol] 8.3 mg/dL Low 8.6-10.6 [facility] Comment on above: Performed By: #### 2 4362-6 ####ANNETTE Castle ([id number])[facility] ([facility])[address]66 [place] [address] Chloride [Moles/Vol] 108 mmol/L High 98-107 [facility] Comment on above: Performed By: #### 2 4362-6 ####ANNETTE Castle ([id number])[facility] ([facility])[address]56 [place] [address] CO2 [Moles/Vol] 31 mmol/L Normal 21-32 [facility] Comment on above: Performed By: #### 2 4362-6 ####ANNETTE Castle ([id number])[facility] ([facility])[address]246 [place] [address] Creatinine [Mass/Vol] 0.98 mg/dL Normal 0.50-1.30 [facility] Comment on above: Performed By: #### 2 4362-6 ####ANNETTE Castle ([id number])[facility] ([facility])[address]90 [place] [address] Glomerular filtration rate 80 mL/min/1.73m*2 Normal >60 [facility] Comment on above: Result Comment: Calc ulations of estimated GFR are performed using the 2020 CKD-EPI Study Refit equation without the race variable for the IDMS-Traceable creatinine methods.https://jasn.asnjournals.org/content/early// ASN.0182545003 Performed By: #### 2 4362-6 ####ANNETTE Castle ([id number])[facility] ([facility])[address]24 [place] [address] Glucose [Mass/Vol] 141 mg/dL High 74-99 [facility] Comment on above: Performed By: #### 2 4362-6 ####ANNETTE GARCIA L (90196)[facility] ([facility])[address]33 [place] [address] Phosphate [Mass/Vol] 3.4 mg/dL Normal 2.5-4.9 [facility] Comment on above: Performed By: #### 2 4362-6 ####ANNETTE GARCIA L (24653)[facility] ([facility])[address] [place] [address] Potassium [Moles/Vol] 3.7 mmol/L Normal 3.5-5.3 [facility] Comment on above: Performed By: #### 2 4362-6 ####ANNETTE GARCIA L (75023)[facility] ([facility])[address]076 [place] [address] Sodium [Moles/Vol] 145 mmol/L Normal 136-145 [facility] Comment on above: Performed By: #### 2 4362-6 ####ANNETTE GARCIA L ([id number])[facility] ([facility])[address]24 [place] [address] Urea nitrogen [Mass/Vol] 50 mg/dL High 6-23 [facility] Comment on above: Performed By: #### 2 4362-6 ####ANNETTE Castle ([id number])[facility] ([facility])[address] [place] [address] XR ABDOMEN 1 VIEWon 10-08-19 XR ABDOMEN 1 VIEW Normal [facility] XR CHEST 1 VIEWon 10-07-2024 XR CHEST 1 VIEW Normal [facility] CBC panel Auto (Bld)on 10-06 Erythrocyte distribution width (RBC) [Ratio] 16.4 % High 11.5-14.5 [facility] Comment on above: Performed By: #### 5 8410-2 ####ANNETTE Castle ([id number])[facility] ([facility])[address] [place] [address] Hematocrit (Bld) [Volume fraction] 37.1 % Low 41.0-52.0 [facility] Comment on above: Performed By: #### 5 8410-2 ####ANNETTE Castle ([id number])[facility] ([facility])[address] [place] [address] Hemoglobin (Bld) [Mass/Vol] 11.3 g/dL Low 13.5-17.5 [facility] Comment on above: Performed By: #### 5 8410-2 ####ANNETTE Castle ([id number])[facility] ([facility])[address] [place] [address] 12889 MCH (RBC) [Entitic mass] 28.8 pg Normal 26.0-34.0 [facility] Comment on above: Performed By: #### 5 8410-2 ####ANNETTE Castle ([id number])[facility] ([facility])[address] [place] [address] 13417 MCHC (RBC) [Mass/Vol] 30.5 g/dL Low 32.0-36.0 [facility] Comment on above: Performed By: #### 5 8410-2 ####ANNETTE Castle ([id number])[facility] ([facility])[address]102 [place] [address] MCV (RBC) [Entitic vol] 94 fL Normal 80-100 U [facility] Comment on above: Performed By: #### 5 8410-2 ####ANNETTE Castle ([id number])[facility] ([facility])[address]88 [place] [address] Nucleated RBC/100 WBC (Bld) [Ratio] 0.0 /100 WBCs Normal 0.0-0.0 [facility] Comment on above: Performed By: #### 5 8410-2 ####ANNETTE Caslte (54465)[facility] ([facility])[address] [place] [address] Platelets (Bld) [#/Vol] 50 x10*3/uL Low 150-450 [facility] Comment on above: Performed By: #### 5 8410-2 ####ANNETTE Castle ([id number])[facility] ([facility])[address] [place] [address]90 RBC (Bld) [#/Vol] 3.93 x10*6/uL Low 4.50-5.90 [facility] Comment on above: Performed By: #### 5 8410-2 ####ANNETTE Castle ([id number])[facility] ([facility])[address] [place] [address] 92155 WBC (Bld) [#/Vol] 12.6 x10*3/uL High 4.4-11.3 [facility] Comment on above: Performed By: #### 5 8410-2 ####ANNETTE Castle (03439)[facility] ([facility])[address]098 [place] [address] Erythrocyte distribution width (RBC) [Ratio] 16.7 % High 11.5-14.5 [facility] Comment on above: Performed By: #### 5 8410-2 ####ANNETTE Castle ([id number])[facility] ([facility])[address] [place] [address] Hematocrit (Bld) [Volume fraction] 36.6 % Low 41.0-52.0 [facility] Comment on above: Performed By: #### 5 8410-2 ####ANNETTE Castle (68968)[facility] ([facility])[address]51 [place] [address] Hemoglobin (Bld) [Mass/Vol] 11.2 g/dL Low 13.5-17.5 [facility] Comment on above: Performed By: #### 5 8410-2 ####ANNETTE Castle ([id number])[facility] ([facility])[address]11 [place] [address] MCH (RBC) [Entitic mass] 28.6 pg Normal 26.0-34.0 [facility] Comment on above: Performed By: #### 5 8410-2 ####ANNETTE Castle (23874)[facility] ([facility])[address]38 [place] [address] MCHC (RBC) [Mass/Vol] 30.6 g/dL Low 32.0-36.0 [facility] Comment on above: Performed By: #### 5 8410-2 ####ANNETTE Castle ([id number])[facility] ([facility])[address]80 [place] [address] MCV (RBC) [Entitic vol] 94 fL Normal 80-100 U [facility] Comment on above: Performed By: #### 5 8410-2 ####ANNETTE Castle ([id number])[facility] ([facility])[address]34 [place] [address] Nucleated RBC/100 WBC (Bld) [Ratio] 0.0 /100 WBCs Normal 0.0-0.0 [facility] Comment on above: Performed By: #### 5 8410-2 ####ANNETTE Castle ([id number])[facility] ([facility])[address]63 [place] [address] Platelets (Bld) [#/Vol] 54 x10*3/uL Low 150-450 [facility] Comment on above: Performed By: #### 5 8410-2 ####ANNETTE Castle (31512)[facility] ([facility])[address]44 [place] [address] RBC (Bld) [#/Vol] 3.91 x10*6/uL Low 4.50-5.90 [facility] Comment on above: Performed By: #### 5 8410-2 ####ANNETTE Castle ([id number])[facility] ([facility])[address]371 [place] [address] WBC (Bld) [#/Vol] 11.9 x10*3/uL High 4.4-11.3 [facility] Comment on above: Performed By: #### 5 8410-2 ####ANNETTE Castle (30592)[facility] ([facility])[address]66 [place] [address] Erythrocyte distribution width (RBC) [Ratio] 16.7 % High 11.5-14.5 [facility] Comment on above: Performed By: #### 5 8410-2 ####ANNETTE Castle (98594)[facility] ([facility])[address]367 [place] [address] Hematocrit (Bld) [Volume fraction] 37.3 % Low 41.0-52.0 [facility] Comment on above: Performed By: #### 5 8410-2 ####ANNETTE Castle (78901)[facility] ([facility])[address] [place] [address]190 Hemoglobin (Bld) [Mass/Vol] 11.5 g/dL Low 13.5-17.5 [facility] Comment on above: Performed By: #### 5 8410-2 ####ANNETTE Castle (64691)[facility] ([facility])[address]204 [place] [address] MCH (RBC) [Entitic mass] 28.6 pg Normal 26.0-34.0 [facility] Comment on above: Performed By: #### 5 8410-2 ####ANNETTE Castle (50596)[facility] ([facility])[address]392 [place] [address] MCHC (RBC) [Mass/Vol] 30.8 g/dL Low 32.0-36.0 [facility] Comment on above: Performed By: #### 5 8410-2 ####ANNETTE Castle ([id number])[facility] ([facility])[address]88 [place] [address] MCV (RBC) [Entitic vol] 93 fL Normal 80-100 U [facility] Comment on above: Performed By: #### 5 8410-2 ####ANNETTE Castle ([id number])[facility] ([facility])[address]37 [place] [address] Nucleated RBC/100 WBC (Bld) [Ratio] 0.2 /100 WBCs High 0.0-0.0 [facility] Comment on above: Performed By: #### 5 8410-2 ####ANNETTE Castle ([id number])[facility] ([facility])[address] [place] [address] Platelets (Bld) [#/Vol] Normal U [facility] Comment on above: Result Comment: 54; Platelet count verified by smear review Performed By: #### 5 8410-2 ####ANNETTE Castle ([id number])[facility] ([facility])[address] [place] [address] RBC (Bld) [#/Vol] 4.02 x10*6/uL Low 4.50-5.90 [facility] Comment on above: Performed By: #### 5 8410-2 ####ANNETTE Castle ([id number])[facility] ([facility])[address] [place] [address] WBC (Bld) [#/Vol] 12.3 x10*3/uL High 4.4-11.3 [facility] Comment on above: Performed By: #### 5 8410-2 ####ANNETTE Castle ([id number])[facility] ([facility])[id number] [place] [address] Calcium.ionizedon 10-06-2024 Calcium.ionized (Bld) [Moles/Vol] 1.16 mmol/L Normal 1.1-1.33 [facility] Comment on above: Result Comment: The performance characteristics of ionized calcium testedin heparinized plasma or serum [facility].Testing on heparinized plasma or serum is not [facility] FDA; however, such approval is not necessary. Performed By: #### 1 994-3 ####ANNETTE Castle ([id number])[facility] ([facility])[address] [place] [address] Calcium.ionized (Bld) [Moles/Vol] 1.13 mmol/L Normal 1.1-1.33 [facility] Comment on above: Result Comment: The performance characteristics of ionized calcium testedin heparinized plasma or serum have been [facility].Testing on heparinized plasma or serum is not approved bythe FDA; however, such approval is not necessary. Performed By: #### 1 994-3 ####ANNETTE Castle ([id number])[facility] ([facility])[address] [place] [address] 15582 Clostridioides difficile tox in A+B tcdA+tcdB geneson 10-06-2024 C. difficile toxin A+B tcdA+tcdB genes LOGAN+probe Ql (Stl) Clostridioides difficile toxin A+B tcdA+tcdB genes Not Detected Normal Not Detected [facility] Comment on above: Order Comment: This test is an FDA-cleared real-time PCR assay for detection of toxigenic C. difficile DNA from unprocessed liquid or unformed stool specimens that have not undergone nucleic acid extraction in symptomatic patients with potential C. difficile infection (CDI). A positive result may indicate colonization, and clinical assessment is required for the diagnosis of CDI. This test cannot be performed on formed stools or used as a test of cure, and should not be performed more than once per 7 days. Performed By: #### 8 0685-1 ####ANNETTE GARCIA L ([id number])[facility] ([facility])[address] [place] [address] Glucose Test strip manual (B ld) [Mass/Vol]on 10-06-2024 Glucose [Mass/Vol] 170 mg/dL High [address] [place] [address] Comment on above: Performed By: #### 2 341-6 ####ANNETTE GARCIA L ([id number])[facility] ([facility])[address] [place] [address] Glucose [Mass/Vol] 127 mg/dL High [address] [place] [address] Comment on above: Performed By: #### 2 341-6 ####ANNETTE GARCIA L ([id number])[facility] ([facility])[address] [place] [address] Glucose [Mass/Vol] 197 mg/dL High [address] [place] [address] Comment on above: Performed By: #### 2 341-6 ####ANNETTE GARCIA L ([id number])[facility] ([facility])[address] [place] [address] Glucose [Mass/Vol] 114 mg/dL High [address] [place] [address] Comment on above: Performed By: #### 2 341-6 ####ANNETTE YEBOAHMOTZER L ([id number])[facility] ([facility])[address] [place] [address] Glucose [Mass/Vol] 99 mg/dL Normal -[address] [place] [address] Comment on above: Performed By: #### 2 341-6 ####ANNETTE RAMSEYTZVISHNU L (72211)[facility] ([facility])[address] [place] [address] Glucose [Mass/Vol] 136 mg/dL High [address] [place] [address] Comment on above: Performed By: #### 2 341-6 ####ANNETTE YEBOAHMOTZVISHNU L ([id number])[facility] ([facility])[address] [place] [address] Heparin induced platelet Ab Qn (S)on 10-06-2024 INTERPRETATION FOR ANTI-PLATELET FACTOR 4 ANTIBODY Positive Critically abnormal Negative [facility] Comment on above: Performed By: #### 4 5155-9 ####ANNETTE Castle ([id number])[facility] ([facility])[address] [place] [address] PERCENT INHIBITION 103 Normal [facility] Comment on above: Performed By: #### 4 5155-9 ####ANNETTE GARCIA L ([id number])[facility] ([facility])[address] [place] [address] SERUM AND HI DOSE HEPARIN 0.100 OD Units Normal [facility] Comment on above: Performed By: #### 4 5155-9 ####ANNETTE Castle ([id number])[facility] ([facility])[address] [place] [address] SERUM AND PLATELET FACTOR 4 2.857 OD Units High <0.400 [facility] Comment on above: Performed By: #### 4 5155-9 ####ANNETTE YEBOAHMORENATE Castle (61236)[facility] ([facility])[address] [place] [address] Heparin.unfractionatedon Heparin unfractionated Chromogenic method Qn (PPP) 0.3 IU/mL Normal See Comment Below for Therapeutic Ranges [facility] Comment on above: Order Comment: Obtai n 4 hours after any Heparin dosage change. Nursing to release order.The therapeutic reference range for UFH may be either 0.3-0.6 IU/mL or 0.3-0.7 IU/mL based on the clinical setting for anticoagulant therapy and the associated nomogram used. For Heparin dosing guidelines based on clinical scenario and Heparin Assay results, please refer to local Pharmacy and the [facility] Guidelines for Anticoagulation Therapy available on the [facility] intranet at: [email or web address] Performed By: #### 3 274-8 ####ANNETTE Castle ([id number])[facility] ([facility])[address] [place] [address] Heparin unfractionated Chromogenic method Qn (PPP) 0.4 IU/mL Normal See Comment Below for Therapeutic Ranges [facility] Comment on above: Order Comment: Obtai n 4 hours after any Heparin dosage change. Nursing to release order.The therapeutic reference range for UFH may be either 0.3-0.6 IU/mL or 0.3-0.7 IU/mL based on the clinical setting for anticoagulant therapy and the associated nomogram used. For Heparin dosing guidelines based on clinical scenario and Heparin Assay results, please refer to local Pharmacy and [facility] Guidelines for Anticoagulation Therapy available on the [facility] intranet at: [email or web address] Performed By: #### 3 274-8 ####ANNETTE Castle ([id number])[facility] ([facility])[address] [place] [address] Heparin unfractionated Chromogenic method Qn (PPP) 0.6 IU/mL Normal See Comment Below for Therapeutic Ranges [facility] Comment on above: Order Comment: Obtai n 4 hours after any Heparin dosage change. Nursing to release order.The therapeutic reference range for UFH may be either 0.3-0.6 IU/mL or 0.3-0.7 IU/mL based on the clinical setting for anticoagulant therapy and the associated nomogram used. For Heparin dosing guidelines based on clinical scenario and Heparin Assay results, please refer to local Pharmacy and [facility] Guidelines for Anticoagulation Therapy available on the [facility] intranet at: [email or web address]_Guidelines_[email or web address].aspx Performed By: #### 3 274-8 ####ANNETTE Castle ([id number])[facility] ([facility])[address] [place] [address] Magnesiumon 10-06-2024 Magnesium [Mass/Vol] 2.38 mg/dL Normal 1.60-2.40 [facility] Comment on above: Performed By: #### 1 9123-9 ####ANNETTE Castle ([id number])[facility] ([facility])[address] [place] [address] Magnesium [Mass/Vol] 2.39 mg/dL Normal 1.60-2.40 [facility] Comment on above: Result Comment: MILD HEMOLYSIS DETECTED. The result may be falsely elevated due to hemolysis or other interferents. Clinical correlation is recommended. Repeat testing may be considered. Performed By: #### 1 9123-9 ####ANNETTE Castle ([id number])[facility] ([facility])[address] [place] [address] Observationon 10-06-2024 Osmolality [Osmolality] 316 mosm/kg High 280-300 [facility] Comment on above: Performed By: #### 2 692-2 ####ANNETTE Castle ([id number])[facility] ([facility])[address] [place] [address] PATH REVIEW-ANTI PF4on 10-06 PATH REVIEW-HIT ASSAY SEE COMMENT Normal [facility] Comment on above: Order Comment: Revie wed and approved by LEVON HECK on 10/07/24 at 3:32 PM. Result Comment: Anti -Platelet Factor 4 Antibody is detected by LUIS assay. While a positive reaction obtained using this assay may indicate the presence of a heparin-associated antibody, the detection of such antibodies, however, does not confirm the diagnosis of heparin-induced thrombocytopenia (HIT). If the clinical suspicion for heparin induced thrombocytopenia is high, consider performing the serotonin release assay. These results should be used in conjunction with clinical findings. Clinical correlation is recommended. Performed By: #### P R31 ####ANNETTE Castle ([id number])[facility] ([facility])[address] [place] [address] PT and aPTT panel Coag (PPP) on 10-06-2024 aPTT Coag (PPP) [Time] 39 s High 26-36 [facility] Comment on above: Order Comment: The A PTT is no longer used for monitoring Unfractionated Heparin Therapy. For monitoring Heparin Therapy, use the Heparin Assay. Performed By: #### 3 4529-8 ####ANNETTE Castle ([id number])[facility] ([facility])[address] [place] [address] 18679 INR Coag (PPP) [Relative time] 1.4 High 0.9-1.1 [facility] Comment on above: Order Comment: The A PTT is no longer used for monitoring Unfractionated Heparin Therapy. For monitoring Heparin Therapy, use the Heparin Assay. Performed By: #### 3 4529-8 ####ANNETTE Castle ([id number])[facility] ([facility])[address] [place] [address] PT Coag (PPP) [Time] 15.7 s High 9.8-12.4 [facility] Comment on above: Order Comment: The A PTT is no longer used for monitoring Unfractionated Heparin Therapy. For monitoring Heparin Therapy, use the Heparin Assay. Performed By: #### 3 4529-8 ####ANNETTE Castle ([id number])[facility] ([facility])[address] [place] [address] 21553 Renal function 2000 panelon 10-06-2024 Albumin BCP dye [Mass/Vol] 3.6 g/dL Normal 3.4-5.0 [facility] Comment on above: Performed By: #### 2 4362-6 ####ANNETTE Castle ([id number])[facility] ([facility])[address] [place] [address] Anion gap [Moles/Vol] 11 mmol/L Normal 10-20 [facility] Comment on above: Performed By: #### 2 4362-6 ####ANNETTE Castle ([id number])[facility] ([facility])[address] [place] [address] Calcium [Mass/Vol] 8.7 mg/dL Normal 8.6-10.6 [facility] Comment on above: Performed By: #### 2 4362-6 ####ANNETTE Castle ([id number])[facility] ([facility])[address] [place] [address], [place] [address] Chloride [Moles/Vol] 108 mmol/L High 98-107 [facility] Comment on above: Performed By: #### 2 4362-6 ####ANNETTE Castle ([id number])[facility] ([facility])[address] [place] [address] CO2 [Moles/Vol] 30 mmol/L Normal 21-32 [facility] Comment on above: Performed By: #### 2 4362-6 ####ANNETTE Castle ([id number])[facility] ([facility])[address] [place] [address] Creatinine [Mass/Vol] 1.09 mg/dL Normal 0.50-1.30 [facility] Comment on above: Performed By: #### 2 4362-6 ####ANNETTE Castle ([id number])[facility] ([facility])[address] [place] [address] Glomerular filtration rate 71 mL/min/1.73m*2 Normal >60 [facility] Comment on above: Result Comment: Calc ulations of estimated GFR are performed using the 2020 CKD-EPI Study Refit equation without the race variable for the IDMS-Traceable creatinine methods.https://jasn.asnjournals.org/content// ASN.7836359839 Performed By: #### 2 4362-6 ####ANNETTE Castle ([id number])[facility] ([facility])[address] [place] [address] Glucose [Mass/Vol] 190 mg/dL High 74-99 [facility] Comment on above: Performed By: #### 2 4362-6 ####ANNETTE Castle ([id number])[facility] ([facility])[address] [place] [address] Phosphate [Mass/Vol] 2.8 mg/dL Normal 2.5-4.9 [facility] Comment on above: Performed By: #### 2 4362-6 ####ANNETTE Castle (59101)[facility] ([facility])[address] [place] [address] Potassium [Moles/Vol] 3.8 mmol/L Normal 3.5-5.3 [facility] Comment on above: Performed By: #### 2 4362-6 ####ANNETTE Castle ([id number])[facility] ([facility])[address] [place] [address] Sodium [Moles/Vol] 145 mmol/L Normal 136-145 [facility] Comment on above: Performed By: #### 2 4362-6 ####ANNETTE Castle ([id number])[facility] ([facility])[address] [place] [address] Urea nitrogen [Mass/Vol] 51 mg/dL High 6-23 [facility] Comment on above: Performed By: #### 2 4362-6 ####ANNETTE Castle ([id number])[facility] ([facility])[address] [place] [address] Albumin BCP dye [Mass/Vol] 3.3 g/dL Low 3.4-5.0 [facility] Comment on above: Performed By: #### 2 4362-6 ####ANNETTE Castle ([id number])[facility] ([facility])[address]67 [place] [address] Anion gap [Moles/Vol] 12 mmol/L Normal 10-20 [facility] Comment on above: Performed By: #### 2 4362-6 ####ANNETTE Castle ([id number])[facility] ([facility])[address] [place] [address] Calcium [Mass/Vol] 8.3 mg/dL Low 8.6-10.6 [facility] Comment on above: Performed By: #### 2 4362-6 ####ANNETTE Castle ([id number])[facility] ([facility])[address] [place] [address] Chloride [Moles/Vol] 106 mmol/L Normal 98-107 [facility] Comment on above: Performed By: #### 2 4362-6 ####ANNETTE GARCIA L ([id number])[facility] ([facility])[address] [place] [address] CO2 [Moles/Vol] 31 mmol/L Normal 21-32 [facility] Comment on above: Performed By: #### 2 4362-6 ####ANNETTE GARCIA L ([id number])[facility] ([facility])[address] [place] [address] Creatinine [Mass/Vol] 0.94 mg/dL Normal 0.50-1.30 [facility] Comment on above: Performed By: #### 2 4362-6 ####ANNETTE Castle (68098)[facility] ([facility])[address] [place] [address] Glomerular filtration rate 85 mL/min/1.73m*2 Normal >60 [facility] Comment on above: Result Comment: Calc ulations of estimated GFR are performed using the 2020 CKD-EPI Study Refit equation without the race variable for the IDMS-Traceable creatinine methods.https://jasn.asnjournals.org/content/early/ ASN.0580028207 Performed By: #### 2 4362-6 ####ANNETTE Castle ([id number])[facility] ([facility])[address] [place] [address] Glucose [Mass/Vol] 101 mg/dL High 74-99 [facility] Comment on above: Performed By: #### 2 4362-6 ####ANNETTE GARCIA L ([id number])[facility] ([facility])[address]47 [place] [address] Phosphate [Mass/Vol] 3.9 mg/dL Normal 2.5-4.9 [facility] Comment on above: Result Comment: MILD HEMOLYSIS DETECTED. The result may be falsely elevated due to hemolysis or other interferents. Clinical correlation is recommended. Repeat testing may be considered. Performed By: #### 2 4362-6 ####ANNETTE RAMSEYTZER L ([id number])[facility] ([facility])[address] [place] [address] Potassium [Moles/Vol] 4.9 mmol/L Normal 3.5-5.3 [facility] Comment on above: Result Comment: MILD HEMOLYSIS DETECTED. The result may be falsely elevated due to hemolysis or other interferents. Clinical correlation is recommended. Repeat testing may be considered. Performed By: #### 2 4362-6 ####ANNETTE GARCIA L ([id number])[facility] ([facility])[address] [place] [address] Sodium [Moles/Vol] 144 mmol/L Normal 136-145 [facility] Comment on above: Performed By: #### 2 4362-6 ####ANNETTE RAMSEYTZVISHNU L ([id number])[facility] ([facility])[address] [place] [address] Urea nitrogen [Mass/Vol] 47 mg/dL High 6-23 [facility] Comment on above: Performed By: #### 2 4362-6 ####ANNETTE GARCIA L ([id number])[facility] ([facility])[address] [place] [address] SEROTONIN RELEASE ASSAYon SCAN RESULT See Scanned Result Normal [facility] Comment on above: Performed By: #### S EROR ####EXT NON INTERFACED LABS (BEAKER) (EXLAB)84241 [place] [address] Serotonin release 0.1 IU/mL heparin.unfractionated Qn (S) 100 % [facility] Comment on above: Performed By: #### S EROR ####EXT NON INTERFACED LABS (BEAKER) (EXLAB)58992 [place] [address] Serotonin release 100 IU/mL heparin.unfractionated Qn (S) 1 % Normal [facility] Comment on above: Performed By: #### S EROR ####EXT NON INTERFACED LABS (BEAKER) (EXLAB)[address]81 [place] [address] Serotonin release.heparin.porcine (S) [Interp] Positive Abnormal Negative [facility] Comment on above: Performed By: #### S EROR ####EXT NON INTERFACED LABS (BEAKER) (EXLAB)[address]678 [place] [address] Bacteriaon 10-05-2024 Bacteria identified Cx Nom (U) Abnormal [facility] Comment on above: Performed By: #### 6 30-4 ####ANNETTE Castle ([id number])[facility] ([facility])[address] [place] [address] CBC panel Auto (Bld)on 10-05 Erythrocyte distribution width (RBC) [Ratio] 16.6 % High 11.5-14.5 [facility] Comment on above: Performed By: #### 5 8410-2 ####ANNETTE Castle ([id number])[facility] ([facility])[address] [place] [address] Hematocrit (Bld) [Volume fraction] 42.6 % Normal 41.0-52.0 [facility] Comment on above: Performed By: #### 5 8410-2 ####ANNETTE Castle ([id number])[facility] ([facility])[address] [place] [address] Hemoglobin (Bld) [Mass/Vol] 13.7 g/dL Normal 13.5-17.5 [facility] Comment on above: Performed By: #### 5 8410-2 ####ANNETTE Castle ([id number])[facility] ([facility])[address]186 [place] [address] MCH (RBC) [Entitic mass] 29.0 pg Normal 26.0-34.0 [facility] Comment on above: Performed By: #### 5 8410-2 ####ANNETTE Castle (46645)[facility] ([facility])[address]115 [place] [address] MCHC (RBC) [Mass/Vol] 32.2 g/dL Normal 32.0-36.0 [facility] Comment on above: Performed By: #### 5 8410-2 ####ANNETTE Castle ([id number])[facility] ([facility])[address] [place] [address] MCV (RBC) [Entitic vol] 90 fL Normal 80-100 U [facility] Comment on above: Performed By: #### 5 8410-2 ####ANNETTE Castle ([id number])[facility] ([facility])[address] [place] [address] Nucleated RBC/100 WBC (Bld) [Ratio] 0.1 /100 WBCs High 0.0-0.0 [facility] Comment on above: Performed By: #### 5 8410-2 ####ANNETTE Castle ([id number])[facility] ([facility])[address]81 [place] [address] Platelets (Bld) [#/Vol] 124 x10*3/uL Low 150-450 [facility] Comment on above: Performed By: #### 5 8410-2 ####ANNETTE Castle (75420)[facility] ([facility])[address]71 [place] [address] RBC (Bld) [#/Vol] 4.73 x10*6/uL Normal 4.50-5.90 [facility] Comment on above: Performed By: #### 5 8410-2 ####ANNETTE Castle ([id number])[facility] ([facility])[address]70 [place] [address] WBC (Bld) [#/Vol] 18.4 x10*3/uL High 4.4-11.3 [facility] Comment on above: Performed By: #### 5 8410-2 ####ANNETTE Castle (41503)[facility] ([facility])[address] [place] [address] Erythrocyte distribution width (RBC) [Ratio] 17.0 % High 11.5-14.5 [facility] Comment on above: Performed By: #### 5 8410-2 ####ANNETTE Castle ([id number])[facility] ([facility])[address] [place] [address] Hematocrit (Bld) [Volume fraction] 36.2 % Low 41.0-52.0 [facility] Comment on above: Performed By: #### 5 8410-2 ####ANNETTE Castle ([id number])[facility] ([facility])[address] [place] [address] Hemoglobin (Bld) [Mass/Vol] 11.1 g/dL Low 13.5-17.5 [facility] Comment on above: Performed By: #### 5 8410-2 ####ANNETTE Castle (43999)[facility] ([facility])[address] [place] [address] 28377 MCH (RBC) [Entitic mass] 28.3 pg Normal 26.0-34.0 [facility] Comment on above: Performed By: #### 5 8410-2 ####ANNETTE Castle ([id number])[facility] ([facility])[address] [place] [address] 83931 MCHC (RBC) [Mass/Vol] 30.7 g/dL Low 32.0-36.0 [facility] Comment on above: Performed By: #### 5 8410-2 ####ANNETTE Castle ([id number])[facility] ([facility])[address] [place] [address] MCV (RBC) [Entitic vol] 92 fL Normal 80-100 U [facility] Comment on above: Performed By: #### 5 8410-2 ####ANNETTE Castle ([id number])[facility] ([facility])[address] [place] [address]84[address] Nucleated RBC/100 WBC (Bld) [Ratio] 0.0 /100 WBCs Normal 0.0-0.0 [facility] Comment on above: Performed By: #### 5 8410-2 ####ANNETTE Castle ([id number])[facility] ([facility])[address] [place] [address] Platelets (Bld) [#/Vol] 134 x10*3/uL Low 150-450 [facility] Comment on above: Performed By: #### 5 8410-2 ####ANNETTE Castle ([id number])[facility] ([facility] [facility] [place] [address] RBC (Bld) [#/Vol] 3.92 x10*6/uL Low 4.50-5.90 [facility] Comment on above: Performed By: #### 5 8410-2 ####ANNETTE Castle ([id number])[facility] ([facility])[address] [place] [address] WBC (Bld) [#/Vol] 12.7 x10*3/uL High 4.4-11.3 [facility] Comment on above: Performed By: #### 5 8410-2 ####ANNETTE Castle ([id number])[facility] ([facility])[address] [place] [address] Calcium.ionizedon 10-05-2024 Calcium.ionized (Bld) [Moles/Vol] 1.16 mmol/L Normal 1.1-1.33 [facility] Comment on above: Result Comment: The performance characteristics of ionized calcium testedin heparinized plasma or serum have [facility].Testing on heparinized plasma or serum is not [facility] FDA; however, such approval is not necessary. Performed By: #### 1 994-3 ####ANNETTE Castle ([id number])[facility] ([facility])[address] [place] [address] Calcium.ionized (Bld) [Moles/Vol] 1.18 mmol/L Normal 1.1-1.33 [facility] Comment on above: Result Comment: The performance characteristics of ionized calcium testedin heparinized plasma or serum have been validated [facility] where [facility].Testing on heparinized plasma or serum is not approved bythe FDA; however, such approval is not necessary. Performed By: #### 1 994-3 ####ANNETTE Castle ([id number])[facility] ([facility])[address] [place] [address]171 Coagulation surface inducedo n 10-05-2024 aPTT Coag (PPP) [Time] 30 s Normal 26-36 [facility] Comment on above: Order Comment: Prior to initiating heparin if not obtained in prior 48 hours. Nursing to release order.The APTT is no longer used for monitoring Unfractionated Heparin Therapy. For monitoring Heparin Therapy, use the Heparin Assay. Performed By: #### 1 4979-9 ####ANNETTE Castle ([id number])[facility] ([facility])[address] [place] [address]39[address] Coagulation tissue factor in ducedon 10-05-2024 PT Coag (PPP) [Time] 17.0 s High 9.8-12.4 [facility] Comment on above: Order Comment: If keaton gomez has not had PT + INR in the last 24 hours. Nursing to release order. Performed By: #### 5 902-2 ####ANNETTE Castle ([id number])[facility] ([facility])[address] [place] [address]162 Glucose Test strip manual (B ld) [Mass/Vol]on 10-05-2024 Glucose [Mass/Vol] 197 mg/dL High 74-99 [facility] Comment on above: Performed By: #### 2 341-6 ####ANNETTE Castle ([id number])[facility] ([facility])[address] [place] [address] 39582 Glucose [Mass/Vol] 121 mg/dL High 74-99 [facility] Comment on above: Performed By: #### 2 341-6 ####ANNETTE Castle ([id number])[facility] ([facility])[address] [place] [address] 89482 Glucose [Mass/Vol] 117 mg/dL High 74-99 [facility] Comment on above: Performed By: #### 2 341-6 ####ANNETTE Castle ([id number])[facility] ([facility])[address] [place] [address] Glucose [Mass/Vol] 102 mg/dL High 74-99 [facility] Comment on above: Performed By: #### 2 341-6 ####ANNETTE GARCIA L ([id number])[facility] ([facility])[address] [place] [address] Glucose [Mass/Vol] 102 mg/dL High 74-99 [facility] Comment on above: Performed By: #### 2 341-6 ####ANNETTE Castle ([id number])[facility] ([facility])[address] [place] [address] Heparin.unfractionatedon Heparin unfractionated Chromogenic method Qn (PPP) 0.9 IU/mL Normal See Comment Below for Therapeutic Ranges [facility] Comment on above: Order Comment: Obtai n 4 hours after initiation of heparin infusion. Nursing to release order.The therapeutic reference range for UFH may be either 0.3-0.6 IU/mL or 0.3-0.7 IU/mL based on the clinical setting for anticoagulant therapy and the associated nomogram used. For Heparin dosing guidelines based on clinical scenario and Heparin Assay results, please refer to local Pharmacy and the [facility] Guidelines for Anticoagulation Therapy available on the [facility] intranet at: [email or web address] Performed By: #### 3 274-8 ####ANNETTE Castle ([id number])[facility] ([facility])[address] [place] [address] Magnesiumon 10-05-2024 Magnesium [Mass/Vol] 2.43 mg/dL High 1.60-2.40 [facility] Comment on above: Performed By: #### 1 9123-9 ####ANNETTE Castle ([id number])[facility] ([facility])[address] [place] [address] Magnesium [Mass/Vol] 2.31 mg/dL Normal 1.60-2.40 [facility] Comment on above: Performed By: #### 1 9123-9 ####ANNETTE Castle ([id number])[facility] ([facility])[address] [place] [address] PT Coag (PPP) [Time]on 10-05 INR Coag (PPP) [Relative time] 1.5 High 0.9-1.1 [facility] Comment on above: Order Comment: If keaton gomez has not had PT + INR in the last 24 hours. Nursing to release order. Performed By: #### 5 902-2 ####ANNETTE Castle ([id number])[facility] ([facility])[address] [place] [address] 80044 Renal function 2000 panelon 10-05-2024 Albumin BCP dye [Mass/Vol] 4.0 g/dL Normal 3.4-5.0 [facility] Comment on above: Performed By: #### 2 4362-6 ####ANNETTE Castle ([id number])[facility] ([facility])[address] [place] [address] 75606 Anion gap [Moles/Vol] 15 mmol/L Normal 10-20 [facility] Comment on above: Performed By: #### 2 4362-6 ####ANNETTE Castle ([id number])[facility] ([facility])[address] [place] [address] 38407 Calcium [Mass/Vol] 9.1 mg/dL Normal 8.6-10.6 [facility] Comment on above: Performed By: #### 2 4362-6 ####ANNETTE Castle ([id number])[facility] ([facility])[address] [place] [address] 30006 Chloride [Moles/Vol] 103 mmol/L Normal 98-107 [facility] Comment on above: Performed By: #### 2 4362-6 ####ANNETTE Castle ([id number])[facility] ([facility])[address] [place] [address] CO2 [Moles/Vol] 28 mmol/L Normal 21-32 [facility] Comment on above: Performed By: #### 2 4362-6 ####ANNETTE Castle ([id number])[facility] ([facility])[address] [place] [address] Creatinine [Mass/Vol] 0.83 mg/dL Normal 0.50-1.30 [facility] Comment on above: Performed By: #### 2 4362-6 ####ANNETTE Castle ([id number])[facility] ([facility])[address] [place] [address] Glomerular filtration rate >90 Normal >60 [facility] Comment on above: Result Comment: Calc ulations of estimated GFR are performed using the 2020 CKD-EPI Study Refit equation without the race variable for the IDMS-Traceable creatinine methods.https://jasn.asnjournals.org/content/early// ASN.3859708717 Performed By: #### 2 4362-6 ####ANNETTE Castle ([id number])[facility] ([facility])[address] [place] [address] Glucose [Mass/Vol] 121 mg/dL High 74-99 [facility] Comment on above: Performed By: #### 2 4362-6 ####ANNETTE Castle ([id number])[facility] ([facility])[address] [place] [address] Phosphate [Mass/Vol] 3.3 mg/dL Normal 2.5-4.9 [facility] Comment on above: Performed By: #### 2 4362-6 ####ANNETTE Castle ([id number])[facility] ([facility])[address] [place] [address] Potassium [Moles/Vol] 4.3 mmol/L Normal 3.5-5.3 [facility] Comment on above: Performed By: #### 2 4362-6 ####ANNETTE Castle ([id number])[facility] ([facility])[address] [place] [address] Sodium [Moles/Vol] 142 mmol/L Normal 136-145 [facility] Comment on above: Performed By: #### 2 4362-6 ####ANNETTE Castle ([id number])[facility] ([facility])[address] [place] [address] Urea nitrogen [Mass/Vol] 39 mg/dL High 6-23 [facility] Comment on above: Performed By: #### 2 4362-6 ####ANNETTE Castle ([id number])[facility] ([facility])[address] [place] [address] 77274 Albumin BCP dye [Mass/Vol] 3.4 g/dL Normal 3.4-5.0 [facility] Comment on above: Performed By: #### 2 4362-6 ####ANNETTE Castle ([id number])[facility] ([facility])[address] [place] [address] 09092 Anion gap [Moles/Vol] 13 mmol/L Normal 10-20 [facility] Comment on above: Performed By: #### 2 4362-6 ####ANNETTE GARCIA L ([id number])[facility] ([facility])[address] [place] [address] Calcium [Mass/Vol] 8.7 mg/dL Normal 8.6-10.6 [facility] Comment on above: Performed By: #### 2 4362-6 ####ANNETTE Castle ([id number])[facility] ([facility])[address] [place] [address] 28446 Chloride [Moles/Vol] 106 mmol/L Normal 98-107 [facility] Comment on above: Performed By: #### 2 4362-6 ####ANNETTE GARCIA L ([id number])[facility] ([facility])[address] [place] [address] 48946 CO2 [Moles/Vol] 29 mmol/L Normal 21-32 [facility] Comment on above: Performed By: #### 2 4362-6 ####ANNETTE Castle ([id number])[facility] ([facility])[address] [place] [address] Creatinine [Mass/Vol] 0.78 mg/dL Normal 0.50-1.30 [facility] Comment on above: Performed By: #### 2 4362-6 ####ANNETTE Castle ([id number])[facility] ([facility])[address] [place] [address] Glomerular filtration rate >90 Normal >60 [facility] Comment on above: Result Comment: Calc ulations of estimated GFR are performed using the 2020 CKD-EPI Study Refit equation without the race variable for the IDMS-Traceable creatinine methods.https://jasn.asnjournals.org/content/early// ASN.9039815589 Performed By: #### 2 4362-6 ####ANNETTE Castle ([id number])[facility] ([facility])[address] [place] [address] Glucose [Mass/Vol] 90 mg/dL Normal 74-99 [facility] Comment on above: Performed By: #### 2 4362-6 ####ANNETTE Castle ([id number])[facility] ([facility])[address] [place] [address] Phosphate [Mass/Vol] 2.8 mg/dL Normal 2.5-4.9 [facility] Comment on above: Performed By: #### 2 4362-6 ####ANNETTE Castle (81035)[facility] ([facility])[address] [place] [address] Potassium [Moles/Vol] 3.9 mmol/L Normal 3.5-5.3 [facility] Comment on above: Performed By: #### 2 4362-6 ####ANNETTE Castle ([id number])[facility] ([facility])[address] [place] [address] Sodium [Moles/Vol] 144 mmol/L Normal 136-145 [facility] Comment on above: Performed By: #### 2 4362-6 ####ANNETTE GARCIA L ([id number])[facility] ([facility])[address] [place] [address] Urea nitrogen [Mass/Vol] 40 mg/dL High 6-23 [facility] Comment on above: Performed By: #### 2 4362-6 ####ANNETTE GARCIA L ([id number])[facility] ([facility])[address] [place] [address] Urinalysis complete W Reflex Culture panel (U)on 10-05-2024 Appearance (U) Ex.Turbid Normal Clear [facility] Comment on above: Order Comment: OVER is reported when the result is greater than the clinically reportable range. Performed By: #### 5 8077-9 ####ANNETTE Castle ([id number])[facility] ([facility])[address] [place] [address] Bilirubin (U) [Mass/Vol] Negative Normal NEGATIVE [facility] Comment on above: Order Comment: OVER is reported when the result is greater than the clinically reportable range. Performed By: #### 5 8077-9 ####ANNETTE Castle ([id number])[facility] ([facility])[address] [place] [address] Color (U) Light-[place]ton Normal Light-Yellow, Yellow, Dark-Yellow [facility] Comment on above: Order Comment: OVER is reported when the result is greater than the clinically reportable range. Performed By: #### 5 8077-9 ####ANNETTE GARCIA L ([id number])[facility] ([facility])[address] [place] [address] Glucose Auto test strip (U) [Mass/Vol] Normal Normal Normal [facility] Comment on above: Order Comment: OVER is reported when the result is greater than the clinically reportable range. Performed By: #### 5 8077-9 ####ANNETTE Castle ([id number])[facility] ([facility])[address] [place] [address] Ketones (U) [Mass/Vol] Negative Normal NEGATIVE [facility] on above: Order Comment: OVER is reported when the result is greater than the clinically reportable range. Performed By: #### 5 8077-9 ####ANNETTE GARCIA L ([id number])[facility] ([facility])[address] [place] [address] Leukocyte esterase Auto test strip Ql (U) 500 [place]/uL Abnormal NEGATIVE [facility] Comment on above: Order Comment: OVER is reported when the result is greater than the clinically reportable range. Performed By: #### 5 8077-9 ####ANNETTE Castle ([id number])[facility] ([facility])[address] [place] [address] Nitrite Auto test strip Ql (U) 2+ Abnormal NEGATIVE [facility] Comment on above: Order Comment: OVER is reported when the result is greater than the clinically reportable range. Performed By: #### 5 8077-9 ####ANNETTE Castle ([id number])[facility] ([facility])[address] [place] [address] 39083 pH (U) 6.5 [pH] Normal 5.0, 5.5, 6.0, 6.5, 7.0, 7.5, 8.0 [facility] Comment on above: Order Comment: OVER is reported when the result is greater than the clinically reportable range. Performed By: #### 5 8077-9 ####ANNETTE Castle (65334)[facility] ([facility])[address] [place] [address] Protein (U) [Mass/Vol] 300 (3+) Abnormal NEGAT SRUTHI, 10 (TRACE), 20 (TRACE) [facility] Comment on above: Order Comment: OVER is reported when the result is greater than the clinically reportable range. Performed By: #### 5 8077-9 ####ANNETTE Castle ([id number])[facility] ([facility])[address] [place] [address] RBC (U) [#/Vol] OVER (3+) Abnormal NEGATIVE [facility] Comment on above: Order Comment: OVER is reported when the result is greater than the clinically reportable range. Performed By: #### 5 8077-9 ####ANNETTE Castle (61997)[facility] ([facility])[address] [place] [address] Specific gravity (U) [Rel density] 1.024 Normal 1.005-1.035 [facility] Comment on above: Order Comment: OVER is reported when the result is greater than the clinically reportable range. Performed By: #### 5 8077-9 ####ANNETTE Castle (69003)[facility] ([facility])[address] [place] [address] Urobilinogen (U) [Mass/Vol] Normal Normal Normal [facility] Comment on above: Order Comment: OVER is reported when the result is greater than the clinically reportable range. Performed By: #### 5 8077-9 ####ANNETTE Castle ([id number])[facility] ([facility])[address] [place] [address] Urinalysis microscopic panel Auto Ql (U)on 10-05-2024 Bacteria Auto (Urine sed) [#/Area] 2+ /HPF Abnormal NONE SEEN [facility] Comment on above: Performed By: #### 5 3315-8 ####ANNETTE Castle ([id number])[facility] ([facility])[address] [place] [address] Leukocyte clumps Auto (Urine sed) [#/Area] MANY Normal Reference range not established. [facility] Comment on above: Performed By: #### 5 3315-8 ####ANNETTE Castle ([id number])[facility] ([facility])[address] [place] [address] Mucus Auto (Urine sed) [#/Area] 4+ /LPF Normal Reference range not established. [facility] Comment on above: Performed By: #### 5 3315-8 ####ANNETTE Castle ([id number])[facility] ([facility])[address] [place] [address] 13221 RBC Auto (Urine sed) [#/Area] >20 Abnormal NONE, 1-2, 3-5 [facility] Comment on above: Performed By: #### 5 3315-8 ####ANNETTE Castle ([id number])[facility] ([facility])[address] [place] [address] 00386 WBC Auto (Urine sed) [#/Area] >50 Abnormal 1-5, NONE [facility] Comment on above: Performed By: #### 5 3315-8 ####ANNETTE Castle (65951)[facility] ([facility])[address] [place] [address] 11838 XR ABDOMEN 1 VIEWon 10-06-19 XR ABDOMEN 1 VIEW Normal [facility] XR CHEST 1 VIEWon 10-05-2024 XR CHEST 1 VIEW Normal [facility] CBC panel Auto (Bld)on 10-04 Erythrocyte distribution width (RBC) [Ratio] 17.1 % High 11.5-14.5 [facility] Comment on above: Performed By: #### 5 8410-2 ####ANNETTE Castle ([id number])[facility] ([facility])[address] [place] [address] 96686 Hematocrit (Bld) [Volume fraction] 36.2 % Low 41.0-52.0 [facility] Comment on above: Performed By: #### 5 8410-2 ####ANNETTE Castle ([id number])[facility] ([facility])[address] [place] [address] 89982 Hemoglobin (Bld) [Mass/Vol] 11.6 g/dL Low 13.5-17.5 [facility] Comment on above: Performed By: #### 5 8410-2 ####ANNETTE Castle ([id number])[facility] ([facility])[address] [place] [address] MCH (RBC) [Entitic mass] 28.6 pg Normal 26.0-34.0 [facility] Comment on above: Performed By: #### 5 8410-2 ####ANNETTE Castle ([id number])[facility] ([facility])[address] [place] [address] MCHC (RBC) [Mass/Vol] 32.0 g/dL Normal 32.0-36.0 [facility] Comment on above: Performed By: #### 5 8410-2 ####ANNETTE Castle (64863)[facility] ([facility])[address] [place] [address] MCV (RBC) [Entitic vol] 89 fL Normal 80-100 U [facility] Comment on above: Performed By: #### 5 8410-2 ####ANNETTE Castle ([id number])[facility] ([facility])[address] [place] [address] Nucleated RBC/100 WBC (Bld) [Ratio] 0.2 /100 WBCs High 0.0-0.0 [facility] Comment on above: Performed By: #### 5 8410-2 ####ANNETTE Castle ([id number])[facility] ([facility])[address]44 [place] [address] Platelets (Bld) [#/Vol] 155 x10*3/uL Normal 150-450 [facility] Comment on above: Performed By: #### 5 8410-2 ####ANNETTE Castle ([id number])[facility] ([facility])[address]70 [place] [address] RBC (Bld) [#/Vol] 4.06 x10*6/uL Low 4.50-5.90 [facility] Comment on above: Performed By: #### 5 8410-2 ####ANNETTE Castle (09422)[facility] ([facility])[address]67 [place] [address] WBC (Bld) [#/Vol] 14.3 x10*3/uL High 4.4-11.3 [facility] Comment on above: Performed By: #### 5 8410-2 ####ANNETTE Castle ([id number])[facility] ([facility])[address] [place] [address] Erythrocyte distribution width (RBC) [Ratio] 17.2 % High 11.5-14.5 [facility] Comment on above: Performed By: #### 5 8410-2 ####ANNETTE Castle ([id number])[facility] ([facility])[address] [place] [address] Hematocrit (Bld) [Volume fraction] 31.2 % Low 41.0-52.0 [facility] Comment on above: Performed By: #### 5 8410-2 ####ANNETTE Castle ([id number])[facility] ([facility])[address] [place] [address] 62393 Hemoglobin (Bld) [Mass/Vol] 10.2 g/dL Low 13.5-17.5 [facility] Comment on above: Performed By: #### 5 8410-2 ####ANNETTE Castle (51541)[facility] ([facility])[address] [place] [address] MCH (RBC) [Entitic mass] 28.7 pg Normal 26.0-34.0 [facility] Comment on above: Performed By: #### 5 8410-2 ####ANNETTE Castle ([id number])[facility] ([facility])[address]58 [place] [address] MCHC (RBC) [Mass/Vol] 32.7 g/dL Normal 32.0-36.0 [facility] Comment on above: Performed By: #### 5 8410-2 ####ANNETTE Castle ([id number])[facility] ([facility])[address] [place] [address] MCV (RBC) [Entitic vol] 88 fL Normal 80-100 U [facility] Comment on above: Performed By: #### 5 8410-2 ####ANENTTE Castle ([id number])[facility] ([facility])[address] [place] [address] 30651 Nucleated RBC/100 WBC (Bld) [Ratio] 0.3 /100 WBCs High 0.0-0.0 [facility] Comment on above: Performed By: #### 5 8410-2 ####ANNETTE Castle ([id number])[facility] ([facility])[address] [place] [address] 38798 Platelets (Bld) [#/Vol] 168 x10*3/uL Normal 150-450 [facility] Comment on above: Performed By: #### 5 8410-2 ####ANNETTE Castle ([id number])[facility] ([facility])[address] [place] [address] 32824 RBC (Bld) [#/Vol] 3.55 x10*6/uL Low 4.50-5.90 [facility] Comment on above: Performed By: #### 5 8410-2 ####ANNETTE Castle ([id number])[facility] ([facility])[address] [place] [address] 30833 WBC (Bld) [#/Vol] 10.2 x10*3/uL Normal 4.4-11.3 [facility] Comment on above: Performed By: #### 5 8410-2 ####ANNETTE Castle ([id number])[facility] ([facility])[address] [place] [address]19 Calcium.ionizedon 10-04-2024 Calcium.ionized (Bld) [Moles/Vol] 1.15 mmol/L Normal 1.1-1.33 [facility] Comment on above: Result Comment: The performance characteristics of ionized calcium testedin heparinized plasma or serum have [facility].Testing on heparinized plasma or serum is not approved [facility]; however, such approval is not necessary. Performed By: #### 1 994-3 ####ANNETTE Castle ([id number])[facility] ([facility])[address] [place] [address] Calcium.ionized (Bld) [Moles/Vol] 1.18 mmol/L Normal 1.1-1.33 [facility] Comment on above: Result Comment: The performance characteristics of ionized calcium testedin heparinized plasma or serum have been validated [facility].Testing on heparinized plasma or serum is not approved bythe FDA; however, such approval is not necessary. Performed By: #### 1 994-3 ####ANNETTE Castle ([id number])[facility] ([facility])[address] [place] [address] Gas and Carbon monoxide and Electrolytes panel (BldA)on 10-04-2024 Anion gap 4 (BldA) [Moles/Vol] 12 mmo/L Normal 10-25 [facility] Comment on above: Performed By: #### 9 3685-6 ####ANNETTE Castle ([id number])[facility] ([facility])[address] [place] [address] Base excess Calc (Bld) [Moles/Vol] 1.9 mmol/L Normal -2.0-3.0 [facility] Comment on above: Performed By: #### 9 3685-6 ####ANNETTE Castle ([id number])[facility] ([facility])[address] [place] [address] Calcium.ionized (BldA) [Moles/Vol] 1.19 mmol/L Normal 1.10-1.33 [facility] Comment on above: Performed By: #### 9 3685-6 ####ANNETTE Castle ([id number])[facility] ([facility])[address] [place] [address] Chloride (BldA) [Moles/Vol] 104 mmol/L Normal 98-107 [facility] Comment on above: Performed By: #### 9 3685-6 ####ANNETTE Castle ([id number])[facility] ([facility])[address] [place] [address] CO2 (Bld) [Partial pressure] 41 mm Hg Normal 38-42 [facility] Comment on above: Performed By: #### 9 3685-6 ####ANNETTE Castle ([id number])[facility] ([facility])[address] [place] [address] Glucose [Mass/Vol] 130 mg/dL High 74-99 [facility] Comment on above: Performed By: #### 9 3685-6 ####ANNETTE Castle ([id number])[facility] ([facility])[address] [place] [address] HCO3 (Bld) [Moles/Vol] 26.6 mmol/L High 22.0-26.0 [facility] Comment on above: Performed By: #### 9 3685-6 ####ANNETTE Castle ([id number])[facility] ([facility])[address] [place] [address] Hematocrit Est (Bld) [Volume fraction] 38.0 % Low 41.0-52.0 [facility] Comment on above: Performed By: #### 9 7695-6 ####ANNETTE Castle ([id number])[facility] ([facility])[address] [place] [address] Hemoglobin (Bld) [Mass/Vol] 12.8 g/dL Low 13.5-17.5 [facility] Comment on above: Performed By: #### 9 3685-6 ####ANNETTE Castle ([id number])[facility] ([facility])[address] [place] [address] Inhaled oxygen concentration 40 % Normal [facility] Comment on above: Performed By: #### 9 3685-6 ####ANNETTE Castle ([id number])[facility] ([facility])[address] [place] [address] Lactate (BldA) [Moles/Vol] 0.9 mmol/L Normal 0.4-2.0 [facility] Comment on above: Performed By: #### 9 3685-6 ####ANNETTE Castle ([id number])[facility] ([facility])[address] [place] [address] Oxygen (Bld) [Partial pressure] 65 mm Hg Low 85-95 [facility] Comment on above: Performed By: #### 9 3685-6 ####ANNETTE Castle ([id number])[facility] ([facility])[address] [place] [address]183 Oxyhemoglobin (BldA) [Mass fraction] 91.0 % Low 94.0-98.0 [facility] Comment on above: Performed By: #### 9 3685-6 ####ANNETTE Castle ([id number])[facility] ([facility])[address] [place] [address] pH (Bld) 7.42 [pH] Normal 7.38-7.42 [facility] Comment on above: Performed By: #### 9 3685-6 ####ANNETTE Castle ([id number])[facility] ([facility])[address] [place] [address] 23960 Potassium (BldA) [Moles/Vol] 4.3 mmol/L Normal 3.5-5.3 [facility] Comment on above: Performed By: #### 9 3685-6 ####ANNETTE Castle ([id number])[facility] ([facility])[address] [place] [address] 87322 Sodium (BldA) [Moles/Vol] 138 mmol/L Normal 136-145 [facility] Comment on above: Performed By: #### 9 3685-6 ####ANNETTE Castle ([id number])[facility] ([facility])[address] [place] [address] 87124 Glucose Test strip manual (B ld) [Mass/Vol]on 10-04-2024 Glucose [Mass/Vol] 143 mg/dL High 74-99 [facility] Comment on above: Performed By: #### 2 341-6 ####ANNETTE Castle ([id number])[facility] ([facility])[address] [facility] [address] Glucose [Mass/Vol] 103 mg/dL High 74-99 [facility] Comment on above: Performed By: #### 2 341-6 ####ANNETTE Castle ([id number])[facility] ([facility])[address] [place] [address] Glucose [Mass/Vol] 114 mg/dL High 74-99 [facility] Comment on above: Performed By: #### 2 341-6 ####ANNETTE Castle ([id number])[facility] ([facility])[address] [place] [address] Glucose [Mass/Vol] 96 mg/dL Normal 74-99 [facility] Comment on above: Performed By: #### 2 341-6 ####ANNETTE Castle ([id number])[facility] ([facility])[address] [place] [address] Glucose [Mass/Vol] 85 mg/dL Normal 74-99 [facility] Comment on above: Performed By: #### 2 341-6 ####ANNETTE Castle ([id number])[facility] ([facility])[address] [place] [address] Magnesiumon 10-04-2024 Magnesium [Mass/Vol] 2.50 mg/dL High 1.60-2.40 [facility] Comment on above: Performed By: #### 1 9123-9 ####ANNETTE Castle ([id number])[facility] ([facility])[address] [place] [address] Magnesium [Mass/Vol] 2.52 mg/dL High 1.60-2.40 [facility] Comment on above: Performed By: #### 1 9123-9 ####ANNETTE Castle ([id number])[facility] ([facility])[address] [place] [address] PT and aPTT panel Coag (PPP) on 10-04-2024 aPTT Coag (PPP) [Time] 24 s Low 26-36 [facility] Comment on above: Order Comment: The A PTT is no longer used for monitoring Unfractionated Heparin Therapy. For monitoring Heparin Therapy, use the Heparin Assay. Performed By: #### 3 4529-8 ####ANNETTE Castle ([id number])[facility] ([facility])[address] [place] [address]448 INR Coag (PPP) [Relative time] 1.4 High 0.9-1.1 [facility] Comment on above: Order Comment: The A PTT is no longer used for monitoring Unfractionated Heparin Therapy. For monitoring Heparin Therapy, use the Heparin Assay. Performed By: #### 3 4529-8 ####ANNETTE Castle ([id number])[facility] ([facility])[address] [place] [address] 75863 PT Coag (PPP) [Time] 15.1 s High 9.8-12.4 [facility] Comment on above: Order Comment: The A PTT is no longer used for monitoring Unfractionated Heparin Therapy. For monitoring Heparin Therapy, use the Heparin Assay. Performed By: #### 3 4529-8 ####ANNETTE Castle ([id number])[facility] ([facility])[address] [place] [address] 79349 Renal function 2000 panelon 10-04-2024 Albumin BCP dye [Mass/Vol] 3.9 g/dL Normal 3.4-5.0 [facility] Comment on above: Performed By: #### 2 4362-6 ####ANNETTE Castle ([id number])[facility] ([facility])[address] [place] [address] 94365 Anion gap [Moles/Vol] 14 mmol/L Normal 10-20 [facility] Comment on above: Performed By: #### 2 4362-6 ####ANNETTE Castle ([id number])[facility] ([facility])[address] [place] [address]27[address] Calcium [Mass/Vol] 8.9 mg/dL Normal 8.6-10.6 [facility] Comment on above: Performed By: #### 2 4362-6 ####ANNETTE Castle ([id number])[facility] ([facility])[address] [place] [address] Chloride [Moles/Vol] 104 mmol/L Normal 98-107 [facility] Comment on above: Performed By: #### 2 4362-6 ####ANNETTE GARCIA L ([id number])[facility] ([facility])[address] [place] [address] CO2 [Moles/Vol] 29 mmol/L Normal 21-32 [facility] Comment on above: Performed By: #### 2 4362-6 ####ANNETTE Castle ([id number])[facility] ([facility])[address] [place] [address] Creatinine [Mass/Vol] 0.86 mg/dL Normal 0.50-1.30 [facility] Comment on above: Performed By: #### 2 4362-6 ####ANNETTE Castle ([id number])[facility] ([facility])[address] [place] [address] Glomerular filtration rate 90 mL/min/1.73m*2 Normal >60 [facility] Comment on above: Result Comment: Calc ulations of estimated GFR are performed using the 2020 CKD-EPI Study Refit equation without the race variable for the IDMS-Traceable creatinine methods.https://jasn.asnjournals.org/content/early/ ASN.2559655047 Performed By: #### 2 4362-6 ####ANNETTE Castle (55043)[facility] ([facility])[address] [place] [address] Glucose [Mass/Vol] 88 mg/dL Normal 74-99 [facility] Comment on above: Performed By: #### 2 4362-6 ####ANNETTE Castle ([id number])[facility] ([facility])[address] [place] [address] Phosphate [Mass/Vol] 2.9 mg/dL Normal 2.5-4.9 [facility] Comment on above: Performed By: #### 2 4362-6 ####ANNETTE Castle ([id number])[facility] ([facility])[address] [place] [address] Potassium [Moles/Vol] 3.8 mmol/L Normal 3.5-5.3 [facility] Comment on above: Performed By: #### 2 4362-6 ####ANNETTE Castle ([id number])[facility] ([facility])[address] [place] [address] Sodium [Moles/Vol] 143 mmol/L Normal 136-145 [facility] Comment on above: Performed By: #### 2 4362-6 ####ANNETTE Castle ([id number])[facility] ([facility])[address] [place] [address] Urea nitrogen [Mass/Vol] 40 mg/dL High 6-23 [facility] Comment on above: Performed By: #### 2 4362-6 ####ANNETTE Castle ([id number])[facility] ([facility])[address] [place] [address] Albumin BCP dye [Mass/Vol] 3.5 g/dL Normal 3.4-5.0 [facility] Comment on above: Performed By: #### 2 4362-6 ####ANNETTE Castle ([id number])[facility] ([facility])[address] [place] [address] Anion gap [Moles/Vol] 13 mmol/L Normal 10-20 [facility] Comment on above: Performed By: #### 2 4362-6 ####ANNETTE Castle ([id number])[facility] ([facility])[address] [place] [address] Calcium [Mass/Vol] 8.8 mg/dL Normal 8.6-10.6 [facility] Comment on above: Performed By: #### 2 4362-6 ####ANNETTE RAMSEYTZER L ([id number])[facility] ([facility])[address] [place] [address] Chloride [Moles/Vol] 106 mmol/L Normal 98-107 [facility] Comment on above: Performed By: #### 2 4362-6 ####ANNETTE YEBOAHMOTZER L ([id number])[facility] ([facility])[address] [place] [address] CO2 [Moles/Vol] 30 mmol/L Normal 21-32 [facility] Comment on above: Performed By: #### 2 4362-6 ####ANNETTE GARCIA L ([id number])[facility] ([facility])[address] [place] [address] Creatinine [Mass/Vol] 0.87 mg/dL Normal 0.50-1.30 [facility] Comment on above: Performed By: #### 2 4362-6 ####ANNETTE GARCIA L ([id number])[facility] ([facility])[address]67 [place] [address] Glomerular filtration rate 90 mL/min/1.73m*2 Normal >60 [facility] Comment on above: Result Comment: Calc ulations of estimated GFR are performed using the 2020 CKD-EPI Study Refit equation without the race variable for the IDMS-Traceable creatinine methods.https://jasn.asnjournals.org/content// ASN.4946775790 Performed By: #### 2 4362-6 ####ANNETTE RAMSEYTZVISHNU L ([id number])[facility] ([facility])[address] [place] [address] Glucose [Mass/Vol] 80 mg/dL Normal 74-99 [facility] Comment on above: Performed By: #### 2 4362-6 ####ANNETTE YEBOAHMOTZER L ([id number])[facility] ([facility])[address] [place] [address] Phosphate [Mass/Vol] 3.2 mg/dL Normal 2.5-4.9 [facility] Comment on above: Performed By: #### 2 4362-6 ####ANNETTE GARCIA L (43501)[facility] ([facility])[address] [place] [address] Potassium [Moles/Vol] 3.8 mmol/L Normal 3.5-5.3 [facility] Comment on above: Performed By: #### 2 4362-6 ####ANNETTE GARCIA L (43525)[facility] ([facility])[address] [place] [address]326 Sodium [Moles/Vol] 145 mmol/L Normal 136-145 [facility] Comment on above: Performed By: #### 2 4362-6 ####ANNETTE Castle ([id number])[facility] ([facility])[address] [place] [address] 38188 Urea nitrogen [Mass/Vol] 45 mg/dL High 6-23 [facility] Comment on above: Performed By: #### 2 4362-6 ####ANNETTE Castle ([id number])[facility] ([facility])[address] [place] [address] 16395 Urinalysis complete panel (U )on 10-04-2024 Appearance (U) Ex.Turbid Normal Clear [facility] Comment on above: Performed By: #### 2 4356-8 ####ANNETTE GARCIA L ([id number])[facility] ([facility])[address] [place] [address] 15360 Bilirubin (U) [Mass/Vol] Negative Normal NEGATIVE [facility] Comment on above: Performed By: #### 2 4356-8 ####ANNETTE GARCIA L ([id number])[facility] ([facility])[address] [place] [address] 44661 Color (U) Yellow Normal Light-Yellow, Yellow, Dark-Yellow [facility] Comment on above: Performed By: #### 2 4356-8 ####ANNETTE GARCIA L ([id number])[facility] ([facility])[address] [place] [address] Glucose Auto test strip (U) [Mass/Vol] Normal Normal Normal [facility] Comment on above: Performed By: #### 2 4356-8 ####ANNETTE Castle ([id number])[facility] ([facility])[address] [place] [address] Ketones (U) [Mass/Vol] Negative Normal NEGATIVE [facility] on above: Performed By: #### 2 4356-8 ####ANNETTE Castle ([id number])[facility] ([facility])[address] [place] [address] Leukocyte esterase Auto test strip Ql (U) 500 [place]ow/uL Abnormal NEGATIVE [facility] Comment on above: Performed By: #### 2 4356-8 ####ANNETTE Castle ([id number])[facility] ([facility])[address] [place] [address] Nitrite Auto test strip Ql (U) Negative Normal NEGATIVE [facility] Comment on above: Performed By: #### 2 4356-8 ####ANNETTE Castle ([id number])[facility] ([facility])[address]344 [place] [address] pH (U) 5.5 [pH] Normal 5.0, 5.5, 6.0, 6.5, 7.0, 7.5, 8.0 [facility] Comment on above: Performed By: #### 2 4356-8 ####ANNETTE Castle (55551)[facility] ([facility])[address] [place] [address] Protein (U) [Mass/Vol] 50 (1+) Abnormal NEGAT SRUTHI, 10 (TRACE), 20 (TRACE) [facility] Comment on above: Performed By: #### 2 4356-8 ####ANNETTE Castle ([id number])[facility] ([facility])[address] [place] [address] RBC (U) [#/Vol] 1.0 (3+) Abnormal NEGATIVE [facility] Comment on above: Performed By: #### 2 4356-8 ####ANNETTE Castle ([id number])[facility] ([facility])[address] [place] [address] 21787 Specific gravity (U) [Rel density] 1.019 Normal 1.005-1.035 [facility] Comment on above: Performed By: #### 2 4356-8 ####ANNETTE Castle ([id number])[facility] ([facility])[address] [place] [address] 45373 Urobilinogen (U) [Mass/Vol] 2 (1+) Abnormal Normal [facility] Comment on above: Result Comment: Due to a manufacturing issue, low positive urobilinogen results may be falsely positive. Correlate with urine bilirubin and additional clinical/laboratory findings to assess the risk of hemolytic anemia or liver disease. If clinically indicated, repeat testing with an alternate method is available by contacting the laboratory within 24 hours.Some pigments and medications may cause a false positive urobilinogen. Performed By: #### 2 4356-8 ####ANNETTE Castle ([id number])[facility] ([facility])[address] [place] [address] 28709 Urinalysis microscopic panel Auto Ql (U)on 10-04-2024 Hyaline casts Auto (Urine sed) [#/Area] 1+ /LPF Abnormal NONE [facility] Comment on above: Performed By: #### 5 3315-8 ####ANNETTE Castle ([id number])[facility] ([facility])[address] [place] [address] 39746 Leukocyte clumps Auto (Urine sed) [#/Area] OCCASIONAL Normal Reference range not established. [facility] Comment on above: Performed By: #### 5 3315-8 ####ANNETTE Castle ([id number])[facility] ([facility])[address]85 [place] [address] Mucus Auto (Urine sed) [#/Area] 2+ /LPF Normal Reference range not established. [facility] Comment on above: Performed By: #### 5 3315-8 ####ANNETTE Castle (42001)[facility] ([facility])[address]26 [place] [address] RBC Auto (Urine sed) [#/Area] >20 Abnormal NONE, 1-2, 3-5 [facility] Comment on above: Performed By: #### 5 3315-8 ####ANNETTE Castle ([id number])[facility] ([facility])[address] [place] [address] 30821 WBC Auto (Urine sed) [#/Area] >50 Abnormal 1-5, NONE [facility] Comment on above: Performed By: #### 5 3315-8 ####ANNETTE Castle (25593)[facility] ([facility])[address] [place] [address] 56690 CBC panel Auto (Bld)on 10-03 Erythrocyte distribution width (RBC) [Ratio] 17.6 % High 11.5-14.5 [facility] Comment on above: Performed By: #### 5 8410-2 ####ANNETTE Castle (25286)[facility] ([facility])[address] [place] [address] 25074 Hematocrit (Bld) [Volume fraction] 31.9 % Low 41.0-52.0 [facility] Comment on above: Performed By: #### 5 8410-2 ####ANNETTE Castle ([id number])[facility] ([facility])[address] [place] [address] 32037 Hemoglobin (Bld) [Mass/Vol] 10.2 g/dL Low 13.5-17.5 [facility] Comment on above: Performed By: #### 5 8410-2 ####ANNETTE Castle ([id number])[facility] ([facility])[address] [place] [address] 28307 MCH (RBC) [Entitic mass] 28.2 pg Normal 26.0-34.0 [facility] Comment on above: Performed By: #### 5 8410-2 ####ANNETTE Castle (45757)[facility] ([facility])[address]47 [place] [address] MCHC (RBC) [Mass/Vol] 32.0 g/dL Normal 32.0-36.0 [facility] Comment on above: Performed By: #### 5 8410-2 ####ANNETTE Castle ([id number])[facility] ([facility])[address] [place] [address] MCV (RBC) [Entitic vol] 88 fL Normal 80-100 U [facility] Comment on above: Performed By: #### 5 8410-2 ####ANNETTE Castle ([id number])[facility] ([facility])[address]27 [place] [address] Nucleated RBC/100 WBC (Bld) [Ratio] 0.2 /100 WBCs High 0.0-0.0 [facility] Comment on above: Performed By: #### 5 8410-2 ####ANNETTE Castle (21021)[facility] ([facility])[address]34 [place] [address] Platelets (Bld) [#/Vol] 190 x10*3/uL Normal 150-450 [facility] Comment on above: Performed By: #### 5 8410-2 ####ANNETTE Castle ([id number])[facility] ([facility])[address] [place] [address] RBC (Bld) [#/Vol] 3.62 x10*6/uL Low 4.50-5.90 [facility] Comment on above: Performed By: #### 5 8410-2 ####ANNETTE Castle ([id number])[facility] ([facility])[address] [place] [address] WBC (Bld) [#/Vol] 10.3 x10*3/uL Normal 4.4-11.3 [facility] Comment on above: Performed By: #### 5 8410-2 ####ANNETTE Castle ([id number])[facility] ([facility])[id number] [place] [address] Erythrocyte distribution width (RBC) [Ratio] 17.8 % High 11.5-14.5 [facility] Comment on above: Performed By: #### 5 8410-2 ####ANNETTE Castle ([id number])[facility] ([facility])[address] [place] [address] Hematocrit (Bld) [Volume fraction] 30.8 % Low 41.0-52.0 [facility] Comment on above: Performed By: #### 5 8410-2 ####ANNETTE Castle ([id number])[facility] [facility] ([facility])[address] [place] [address]141 Hemoglobin (Bld) [Mass/Vol] 9.6 g/dL Low 13.5-17.5 [facility] Comment on above: Performed By: #### 5 8410-2 ####ANNETTE Castle ([id number])[facility] ([facility])[address] [place] [address] MCH (RBC) [Entitic mass] 28.8 pg Normal 26.0-34.0 [facility] Comment on above: Performed By: #### 5 8410-2 ####ANNETTE Castle ([id number])[facility] ([facility])[address] [place] [address] MCHC (RBC) [Mass/Vol] 31.2 g/dL Low 32.0-36.0 [facility] Comment on above: Performed By: #### 5 8410-2 ####ANNETTE Castle ([id number])[facility] ([facility])[address] [place] [address] MCV (RBC) [Entitic vol] 93 fL Normal 80-100 [facility] Comment on above: Performed By: #### 5 8410-2 ####ANNETTE Castle ([id number])[facility] ([facility])[address] [place] [address] Nucleated RBC/100 WBC (Bld) [Ratio] 0.4 /100 WBCs High 0.0-0.0 [facility] Comment on above: Performed By: #### 5 8410-2 ####ANNETTE Castle ([id number])[facility] ([facility])[address] [place] [address] Platelets (Bld) [#/Vol] 176 x10*3/uL Normal 150-450 [facility] Comment on above: Performed By: #### 5 8410-2 ####ANNETTE Castle (86247)[facility] ([facility])[address] [place] [address] RBC (Bld) [#/Vol] 3.33 x10*6/uL Low 4.50-5.90 [facility] Comment on above: Performed By: #### 5 8410-2 ####ANNETTE Castle ([id number])[facility] ([facility])[address] [place] [address] 79481 WBC (Bld) [#/Vol] 9.4 x10*3/uL Normal 4.4-11.3 [facility] Comment on above: Performed By: #### 5 8410-2 ####ANNETTE Castle ([id number])[facility] ([facility])[address] [place] [address] 46150 Calcium.ionizedon 10-03-2024 Calcium.ionized (Bld) [Moles/Vol] 1.17 mmol/L Normal 1.1-1.33 [facility] Comment on above: Result Comment: The performance characteristics of ionized calcium testedin heparinized plasma or serum have been [facility].Testing on heparinized plasma or serum is not approved bythe FDA; however, such approval is not necessary. Performed By: #### 1 994-3 ####ANNETTE Castle ([id number])[facility] ([facility])[address] [place] [address] Calcium.ionized (Bld) [Moles/Vol] 1.17 mmol/L Normal 1.1-1.33 [facility] Comment on above: Result Comment: The performance characteristics of ionized calcium testedin heparinized plasma or serum have been validated [facility].Testing on heparinized plasma or serum is not [facility]; however, such approval is not necessary. Performed By: #### 1 994-3 ####ANNETTE Castle ([id number])[facility] ([facility])[address] [place] [address] 68258 Gas and Carbon monoxide and Electrolytes panel (BldA)on 10-03-2024 Anion gap 4 (BldA) [Moles/Vol] 10 mmo/L Normal 10-25 [facility] Comment on above: Performed By: #### 9 3685-6 ####ANNETTE Castle ([id number])[facility] ([facility])[address] [place] [address] Base excess Calc (Bld) [Moles/Vol] 1.0 mmol/L Normal -2.0-3.0 [facility] Comment on above: Performed By: #### 9 3685-6 ####ANNETTE Castle ([id number])[facility] ([facility])[address] [place] [address] 89656 Calcium.ionized (BldA) [Moles/Vol] 1.19 mmol/L Normal 1.10-1.33 [facility] Comment on above: Performed By: #### 9 3685-6 ####ANNETTE Castle (60301)[facility] ([facility])[address] [place] [address]12 Chloride (BldA) [Moles/Vol] 110 mmol/L High 98-107 [facility] Comment on above: Performed By: #### 9 3685-6 ####ANNETTE Castle ([id number])[facility] ([facility])[address] [place] [address] 58384 CO2 (Bld) [Partial pressure] 37 mm Hg Low 38-42 [facility] Comment on above: Performed By: #### 9 3685-6 ####ANNETTE Castle ([id number])[facility] ([facility])[address] [place] [address] Glucose [Mass/Vol] 110 mg/dL High 74-99 [facility] Comment on above: Performed By: #### 9 3685-6 ####ANNETTE Castle ([id number])[facility] ([facility])[address]443 [place] [address] HCO3 (Bld) [Moles/Vol] 25.1 mmol/L Normal 22.0-26.0 [facility] Comment on above: Performed By: #### 9 3685-6 ####ANNETTE Castle (20511)[facility] ([facility])[address]051 [place] [address] Hematocrit Est (Bld) [Volume fraction] 30.0 % Low 41.0-52.0 [facility] Comment on above: Performed By: #### 9 3685-6 ####ANNETTE Castle (35206)[facility] ([facility])[address]25 [place] [address] Hemoglobin (Bld) [Mass/Vol] 10.1 g/dL Low 13.5-17.5 [facility] Comment on above: Performed By: #### 9 3685-6 ####ANNETTE Castle ([id number])[facility] ([facility])[address] [place] [address] Inhaled oxygen concentration 40 % Normal [facility] Comment on above: Performed By: #### 9 3685-6 ####ANNETTE Castle ([id number])[facility] ([facility])[address]23 [place] [address] Lactate (BldA) [Moles/Vol] 0.8 mmol/L Normal 0.4-2.0 [facility] Comment on above: Performed By: #### 9 3685-6 ####ANNETTE Castle ([id number])[facility] ([facility])[address]32 [place] [address] Oxygen (Bld) [Partial pressure] 111 mm Hg High 85-95 [facility] Comment on above: Performed By: #### 9 3685-6 ####ANNETTE Castle ([id number])[facility] ([facility])[address]68 [place] [address] Oxyhemoglobin (BldA) [Mass fraction] 97.4 % Normal 94.0-98.0 [facility] Comment on above: Performed By: #### 9 3685-6 ####ANNETTE Castle ([id number])[facility] ([facility])[address]2020 [place] [address] pH (Bld) 7.44 [pH] High 7.38-7.42 [facility] Comment on above: Performed By: #### 9 3685-6 ####ANNETTE Castle ([id number])[facility] ([facility])[address] [place] [address] 45071 Potassium (BldA) [Moles/Vol] 3.8 mmol/L Normal 3.5-5.3 [facility] Comment on above: Performed By: #### 9 3685-6 ####ANNETTE Castle ([id number])[facility] ([facility])[address] [place] [address] 83599 Sodium (BldA) [Moles/Vol] 141 mmol/L Normal 136-145 [facility] Comment on above: Performed By: #### 9 3685-6 ####ANNETTE Castle ([id number])[facility] ([facility])[address] [place] [address] 40205 Glucose Test strip manual (B ld) [Mass/Vol]on 10-03-2024 Glucose [Mass/Vol] 116 mg/dL High 74-99 [facility] Comment on above: Performed By: #### 2 341-6 ####ANNETTE Castle ([id number])[facility] ([facility])[address]324 [place] [address] Glucose [Mass/Vol] 103 mg/dL High 74-99 [facility] Comment on above: Performed By: #### 2 341-6 ####ANNETTE Castle ([id number])[facility] ([facility])[address] [facility] [address] Glucose [Mass/Vol] 102 mg/dL High 74-99 [facility] Comment on above: Performed By: #### 2 341-6 ####ANNETTE Castle ([id number])[facility] ([facility])[address]11 [place] [address] Glucose [Mass/Vol] 91 mg/dL Normal 74-99 [facility] Comment on above: Performed By: #### 2 341-6 ####ANNETTE Castle ([id number])[facility] ([facility])[address]56 [place] [address] Glucose [Mass/Vol] 98 mg/dL Normal 74-99 [facility] Comment on above: Performed By: #### 2 341-6 ####ANNETTE Castle ([id number])[facility] ([facility])[address]807 [place] [address] Magnesiumon 10-03-2024 Magnesium [Mass/Vol] 2.52 mg/dL High 1.60-2.40 [facility] Comment on above: Performed By: #### 1 9123-9 ####ANNETTE Castle (17634)[facility] ([facility])[address]41 [place] [address] Magnesium [Mass/Vol] 2.66 mg/dL High 1.60-2.40 [facility] Comment on above: Performed By: #### 1 9123-9 ####ANNETTE Castle (48183)[facility] ([facility])[address]38 [place] [address] PT and aPTT panel Coag (PPP) on 10-03-2024 aPTT Coag (PPP) [Time] 24 s Low 26-36 [facility] Comment on above: Order Comment: The A PTT is no longer used for monitoring Unfractionated Heparin Therapy. For monitoring Heparin Therapy, use the Heparin Assay. Performed By: #### 3 4529-8 ####ANNETTE Castle ([id number])[facility] ([facility])[address] [place] [address] 32616 INR Coag (PPP) [Relative time] 1.2 High 0.9-1.1 [facility] Comment on above: Order Comment: The A PTT is no longer used for monitoring Unfractionated Heparin Therapy. For monitoring Heparin Therapy, use the Heparin Assay. Performed By: #### 3 4529-8 ####ANNETTE Castle ([id number])[facility] ([facility])[address] [place] [address] 80268 PT Coag (PPP) [Time] 13.0 s High 9.8-12.4 [facility] Comment on above: Order Comment: The A PTT is no longer used for monitoring Unfractionated Heparin Therapy. For monitoring Heparin Therapy, use the Heparin Assay. Performed By: #### 3 4529-8 ####ANNETTE Castle ([id number])[facility] ([facility])[address] [place] [address] 49150 Renal function 2000 panelon 10-03-2024 Albumin BCP dye [Mass/Vol] 3.7 g/dL Normal 3.4-5.0 [facility] Comment on above: Performed By: #### 2 4362-6 ####ANNETTE Castle ([id number])[facility] ([facility])[address] [place] [address] 99370 Anion gap [Moles/Vol] 16 mmol/L Normal 10-20 [facility] Comment on above: Performed By: #### 2 4362-6 ####ANNETTE Castle ([id number])[facility] ([facility])[address] [place] [address] 28960 Calcium [Mass/Vol] 8.7 mg/dL Normal 8.6-10.6 [facility] Comment on above: Performed By: #### 2 4362-6 ####ANNETTE Castle ([id number])[facility] ([facility])[address]131 [place] [address] Chloride [Moles/Vol] 106 mmol/L Normal 98-107 [facility] Comment on above: Performed By: #### 2 4362-6 ####ANNETTE Castle ([id number])[facility] ([facility])[address] [place] [address] CO2 [Moles/Vol] 27 mmol/L Normal 21-32 [facility] Comment on above: Performed By: #### 2 4362-6 ####ANNETTE Castle ([id number])[facility] ([facility])[address]82 [place] [address] Creatinine [Mass/Vol] 0.97 mg/dL Normal 0.50-1.30 [facility] Comment on above: Performed By: #### 2 4362-6 ####ANNETTE Castle ([id number])[facility] ([facility])[address]32 [place] [address] Glomerular filtration rate 81 mL/min/1.73m*2 Normal >60 [facility] Comment on above: Result Comment: Calc ulations of estimated GFR are performed using the 2020 CKD-EPI Study Refit equation without the race variable for the IDMS-Traceable creatinine methods.https://jasn.asnjournals.org/content// ASN.3682150811 Performed By: #### 2 4362-6 ####ANNETTE Castle ([id number])[facility] ([facility])[address]70 [place] [address] Glucose [Mass/Vol] 95 mg/dL Normal 74-99 [facility] Comment on above: Performed By: #### 2 4362-6 ####ANNETTE Castle (58852)[facility] ([facility])[address]18 [place] [address] Phosphate [Mass/Vol] 3.3 mg/dL Normal 2.5-4.9 [facility] Comment on above: Performed By: #### 2 4362-6 ####ANNETTE Castle (27536)[facility] ([facility])[address]679 [place] [address] Potassium [Moles/Vol] 4.3 mmol/L Normal 3.5-5.3 [facility] Comment on above: Performed By: #### 2 4362-6 ####ANNETTE Castle (03927)[facility] ([facility])[address]243 [place] [address] Sodium [Moles/Vol] 145 mmol/L Normal 136-145 [facility] Comment on above: Performed By: #### 2 436-6 ####ANNETTE Castle ([id number])[facility] ([facility])[address] [place] [address] 81062 Urea nitrogen [Mass/Vol] 44 mg/dL High 6-23 [facility] Comment on above: Performed By: #### 2 436-6 ####ANNETTE Castle (60062)[facility] ([facility])[address]803 [place] [address] Albumin BCP dye [Mass/Vol] 3.6 g/dL Normal 3.4-5.0 [facility] Comment on above: Performed By: #### 2 4362-6 ####ANNETTE Castle (69920)[facility] ([facility])[address]347 [place] [address] Anion gap [Moles/Vol] 14 mmol/L Normal 10-20 [facility] Comment on above: Performed By: #### 2 4362-6 ####ANNETTE Castle ([id number])[facility] ([facility])[address]956 [place] [address] Calcium [Mass/Vol] 8.8 mg/dL Normal 8.6-10.6 [facility] Comment on above: Performed By: #### 2 4362-6 ####ANNETTE Castle (36713)[facility] ([facility])[address]33 [place] [address] Chloride [Moles/Vol] 106 mmol/L Normal 98-107 [facility] Comment on above: Performed By: #### 2 4362-6 ####ANNETTE Castle ([id number])[facility] ([facility])[address]282 [place] [address] CO2 [Moles/Vol] 30 mmol/L Normal 21-32 [facility] Comment on above: Performed By: #### 2 4362-6 ####ANNETTE GARCIA L ([id number])[facility] ([facility])28063 [place] [address] Creatinine [Mass/Vol] 0.95 mg/dL Normal 0.50-1.30 [facility] Comment on above: Performed By: #### 2 4362-6 ####ANNETTE Castle (73761)[facility] ([facility])[address]10 [place] [address] Glomerular filtration rate 83 mL/min/1.73m*2 Normal >60 [facility] Comment on above: Result Comment: Calc ulations of estimated GFR are performed using the 2020 CKD-EPI Study Refit equation without the race variable for the IDMS-Traceable creatinine methods.https://jasn.asnjournals.org/content/early// ASN.2250610411 Performed By: #### 2 4362-6 ####ANNETTE Castle (58384)[facility] ([facility])[address]908 [place] [address] Glucose [Mass/Vol] 94 mg/dL Normal 74-99 [facility] Comment on above: Performed By: #### 2 4362-6 ####ANNETTE Castle (57436)[facility] ([facility])[address]15 [place] [address] Phosphate [Mass/Vol] 3.4 mg/dL Normal 2.5-4.9 [facility] Comment on above: Performed By: #### 2 4362-6 ####ANNETTE Castle (44753)[facility] ([facility])[address]649 [place] [address] Potassium [Moles/Vol] 3.9 mmol/L Normal 3.5-5.3 [facility] Comment on above: Performed By: #### 2 4362-6 ####ANNETTE Castle (04371)[facility] ([facility])[address]18 [facility] [address] Sodium [Moles/Vol] 146 mmol/L High 136-145 [facility] Comment on above: Performed By: #### 2 4362-6 ####ANNETTE Castle (49301)[facility] ([facility])[address]205 [place] [address] Urea nitrogen [Mass/Vol] 44 mg/dL High 6-23 [facility] Comment on above: Performed By: #### 2 4362-6 ####ANNETTE Castle (14991)[facility] ([facility])[address]71 [place] [address] Albumin BCP dye [Mass/Vol] 3.5 g/dL Normal 3.4-5.0 [facility] Comment on above: Performed By: #### 2 4362-6 ####ANNETTE Castle (58984)[facility] ([facility])[address]15 [place] [address] Anion gap [Moles/Vol] 13 mmol/L Normal 10-20 [facility] Comment on above: Performed By: #### 2 4362-6 ####ANNETTE Castle (23491)[facility] ([facility])[address]25 [place] [address] Calcium [Mass/Vol] 9.0 mg/dL Normal 8.6-10.6 [facility] Comment on above: Performed By: #### 2 4362-6 ####ANNETTE Castle (79113)[facility] ([facility])[address]184 [place] [address] Chloride [Moles/Vol] 108 mmol/L High 98-107 [facility] Comment on above: Performed By: #### 2 4362-6 ####ANNETTE Castle (38863)[facility] ([facility])[address]133 [place] [address] CO2 [Moles/Vol] 28 mmol/L Normal 21-32 [facility] Comment on above: Performed By: #### 2 4362-6 ####ANNETTE Castle (17004)[facility] ([facility])[address]32 [place] [address] Creatinine [Mass/Vol] 0.94 mg/dL Normal 0.50-1.30 [facility] Comment on above: Performed By: #### 2 4362-6 ####ANNETTE Castle ([id number])[facility] ([facility])[address]14 [place] [address] Glomerular filtration rate 85 mL/min/1.73m*2 Normal >60 [facility] Comment on above: Result Comment: Calc ulations of estimated GFR are performed using the 2020 CKD-EPI Study Refit equation without the race variable for the IDMS-Traceable creatinine methods.https://jasn.asnjournals.org/content// ASN.4555621025 Performed By: #### 2 4362-6 ####ANNETTE Castle (80975)[facility] ([facility])[address]783 [place] [address] Glucose [Mass/Vol] 110 mg/dL High 74-99 [facility] Comment on above: Performed By: #### 2 4362-6 ####ANNETTE GARCIA L ([id number])[facility] ([facility])[address] [place] [address] Phosphate [Mass/Vol] 3.5 mg/dL Normal 2.5-4.9 [facility] Comment on above: Performed By: #### 2 4362-6 ####ANNETTE GARCIA L (24353)[facility] ([facility])[address]179 [place] [address] Potassium [Moles/Vol] 4.0 mmol/L Normal 3.5-5.3 [facility] Comment on above: Performed By: #### 2 4362-6 ####ANNETTE Castle (90694)[facility] ([facility])[address]32 [place] [address] Sodium [Moles/Vol] 145 mmol/L Normal 136-145 [facility] Comment on above: Performed By: #### 2 4362-6 ####ANNETTE Castle (26990)[facility] ([facility])[address]24 [place] [address] Urea nitrogen [Mass/Vol] 42 mg/dL High 6-23 [facility] Comment on above: Performed By: #### 2 4362-6 ####ANNETTE Castle (27391)[facility] ([facility])[address]26 [place] [address] XR ABDOMEN 1 VIEWon 10-04-19 XR ABDOMEN 1 VIEW Normal [facility] XR CHEST 1 VIEWon 10-03-2024 XR CHEST 1 VIEW Normal [facility] CBC panel Auto (Bld)on 10-02 Erythrocyte distribution width (RBC) [Ratio] 17.9 % High 11.5-14.5 [facility] Comment on above: Performed By: #### 5 8410-2 ####ANNETTE Castle ([id number])[facility] ([facility])[address]873 [place] [address] Hematocrit (Bld) [Volume fraction] 31.2 % Low 41.0-52.0 [facility] Comment on above: Performed By: #### 5 8410-2 ####ANNETTE Castle (20839)[facility] ([facility])[address]21 [place] [address] Hemoglobin (Bld) [Mass/Vol] 9.8 g/dL Low 13.5-17.5 [facility] Comment on above: Performed By: #### 5 8410-2 ####ANNETTE Castle (34304)[facility] ([facility])[address]20 [place] [address] MCH (RBC) [Entitic mass] 28.7 pg Normal 26.0-34.0 [facility] Comment on above: Performed By: #### 5 8410-2 ####ANNETTE Castle (53884)[facility] ([facility])[address]761 [place] [address] MCHC (RBC) [Mass/Vol] 31.4 g/dL Low 32.0-36.0 [facility] Comment on above: Performed By: #### 5 8410-2 ####ANNETTE Castle (34454)[facility] ([facility])[address]957 [place] [address] MCV (RBC) [Entitic vol] 91 fL Normal 80-100 [facility] Comment on above: Performed By: #### 5 8410-2 ####ANNETTE Castle (67661)[facility] ([facility])[address]289 [place] [address] Nucleated RBC/100 WBC (Bld) [Ratio] 0.3 /100 WBCs High 0.0-0.0 [facility] Comment on above: Performed By: #### 5 8410-2 ####ANNETTE Castle ([id number])[facility] ([facility])[address]451 [place] [address] Platelets (Bld) [#/Vol] 172 x10*3/uL Normal 150-450 [facility] Comment on above: Performed By: #### 5 8410-2 ####ANNETTE Castle ([id number])[facility] ([facility])[address] [place] [address] RBC (Bld) [#/Vol] 3.42 x10*6/uL Low 4.50-5.90 [facility] Comment on above: Performed By: #### 5 8410-2 ####ANNETTE Castle ([id number])[facility] ([facility])[address] [place] [address] WBC (Bld) [#/Vol] 8.9 x10*3/uL Normal 4.4-11.3 [facility] Comment on above: Performed By: #### 5 8410-2 ####ANNETTE Castle ([id number])[facility] ([facility])[id number] [place] [id number] Erythrocyte distribution width (RBC) [Ratio] 17.7 % High 11.5-14.5 [facility] Comment on above: Performed By: #### 5 8410-2 ####ANNETTE Castle ([id number])[facility] ([facility])[address] [place] [id number] Hematocrit (Bld) [Volume fraction] 29.0 % Low 41.0-52.0 [facility] Comment on above: Performed By: #### 5 8410-2 ####ANNETTE Castle ([id number])[facility] ([facility])[address] [place] [address] 77929 Hemoglobin (Bld) [Mass/Vol] 9.7 g/dL Low 13.5-17.5 [facility] Comment on above: Performed By: #### 5 8410-2 ####ANNETTE Castle ([id number])[facility] ([facility])[address] [place] [address] 03993 MCH (RBC) [Entitic mass] 28.6 pg Normal 26.0-34.0 [facility] Comment on above: Performed By: #### 5 8410-2 ####ANNETTE Castle ([id number])[facility] ([facility])[address] [place] [address] 78334 MCHC (RBC) [Mass/Vol] 33.4 g/dL Normal 32.0-36.0 [facility] Comment on above: Performed By: #### 5 8410-2 ####ANNETTE Castle ([id number])[facility] ([facility])[address] [place] [address] 83652 MCV (RBC) [Entitic vol] 86 fL Normal 80-100 [facility] Comment on above: Performed By: #### 5 8410-2 ####ANNETTE Castle ([id number])[facility] ([facility])[address] [place] [address] Nucleated RBC/100 WBC (Bld) [Ratio] 0.3 /100 WBCs High 0.0-0.0 [facility] Comment on above: Performed By: #### 5 8410-2 ####ANNETTE Castle ([id number])[facility] ([facility])[address] [place] [address] 45450 Platelets (Bld) [#/Vol] 154 x10*3/uL Normal 150-450 [facility] Comment on above: Performed By: #### 5 8410-2 ####ANNETTE Castle ([id number])[facility] ([facility])[address]80 [place] [address] RBC (Bld) [#/Vol] 3.39 x10*6/uL Low 4.50-5.90 [facility] Comment on above: Performed By: #### 5 8410-2 ####ANNETTE Castle ([id number])[facility] ([facility])[address] [place] [address] 08157 WBC (Bld) [#/Vol] 8.9 x10*3/uL Normal 4.4-11.3 [facility] Comment on above: Performed By: #### 5 8410-2 ####ANNETTE Castle ([id number])[facility] ([facility])[address]66 [place] [address] Erythrocyte distribution width (RBC) [Ratio] 17.9 % High 11.5-14.5 [facility] Comment on above: Performed By: #### 5 8410-2 ####ANNETTE Castle ([id number])[facility] ([facility])67366 [place] [address] Hematocrit (Bld) [Volume fraction] 27.5 % Low 41.0-52.0 [facility] Comment on above: Performed By: #### 5 8410-2 ####ANNETTE Castle ([id number])[facility] ([facility])[address]370 [place] [address] Hemoglobin (Bld) [Mass/Vol] 9.1 g/dL Low 13.5-17.5 [facility] Comment on above: Performed By: #### 5 8410-2 ####ANNETTE Castle ([id number])[facility] ([facility])[address]38 [place] [address] MCH (RBC) [Entitic mass] 28.6 pg Normal 26.0-34.0 [facility] Comment on above: Performed By: #### 5 8410-2 ####ANNETTE Castle ([id number])[facility] ([facility])[address] [place] [address] 43753 MCHC (RBC) [Mass/Vol] 33.1 g/dL Normal 32.0-36.0 [facility] Comment on above: Performed By: #### 5 8410-2 ####ANNETTE Castle ([id number])[facility] ([facility])[address] [place] [address] 02633 MCV (RBC) [Entitic vol] 87 fL Normal 80-100 [facility] Comment on above: Performed By: #### 5 8410-2 ####ANNETTE Castle ([id number])[facility] ([facility])[address]178 [place] [address] Nucleated RBC/100 WBC (Bld) [Ratio] 0.4 /100 WBCs High 0.0-0.0 [facility] Comment on above: Performed By: #### 5 8410-2 ####ANNETTE Castle ([id number])[facility] ([facility])[address]32 [place] [address] Platelets (Bld) [#/Vol] 153 x10*3/uL Normal 150-450 [facility] Comment on above: Performed By: #### 5 8410-2 ####ANNETTE Castle ([id number])[facility] ([facility])87473 [place] [address] RBC (Bld) [#/Vol] 3.18 x10*6/uL Low 4.50-5.90 [facility] Comment on above: Performed By: #### 5 8410-2 ####ANNETTE Castle ([id number])[facility] ([facility])[address]69 [place] [address] WBC (Bld) [#/Vol] 8.1 x10*3/uL Normal 4.4-11.3 [facility] Comment on above: Performed By: #### 5 8410-2 ####ANNETTE Castle ([id number])[facility] ([facility])[address] [place] [address] 81592 Erythrocyte distribution width (RBC) [Ratio] 17.7 % High 11.5-14.5 [facility] Comment on above: Performed By: #### 5 8410-2 ####ANNETTE Castle ([id number])[facility] ([facility])[address] [place] [address] 95060 Hematocrit (Bld) [Volume fraction] 28.0 % Low 41.0-52.0 [facility] Comment on above: Performed By: #### 5 8410-2 ####ANNETTE Castle ([id number])[facility] ([facility])21084 [place] [address] Hemoglobin (Bld) [Mass/Vol] 9.4 g/dL Low 13.5-17.5 [facility] Comment on above: Performed By: #### 5 8410-2 ####ANNETET Castle ([id number])[facility] ([facility])[address] [place] [address] 72462 MCH (RBC) [Entitic mass] 28.7 pg Normal 26.0-34.0 [facility] Comment on above: Performed By: #### 5 8410-2 ####ANNETTE Castle ([id number])[facility] ([facility])[address]3471 [place] [address] MCHC (RBC) [Mass/Vol] 33.6 g/dL Normal 32.0-36.0 [facility] Comment on above: Performed By: #### 5 8410-2 ####ANNETTE Castle ([id number])[facility] ([facility])[address]448 [place] [address] MCV (RBC) [Entitic vol] 86 fL Normal 80-100 [facility] Comment on above: Performed By: #### 5 8410-2 ####ANNETTE Castle (83293)[facility] ([facility])[address]81 [place] [address] Nucleated RBC/100 WBC (Bld) [Ratio] 0.5 /100 WBCs High 0.0-0.0 [facility] Comment on above: Performed By: #### 5 8410-2 ####ANNETTE Castle ([id number])[facility] ([facility])[address]88 [place] [address] Platelets (Bld) [#/Vol] 144 x10*3/uL Low 150-450 [facility] Comment on above: Performed By: #### 5 8410-2 ####ANNETTE Castle ([id number])[facility] ([facility])47403 [place] [address] RBC (Bld) [#/Vol] 3.27 x10*6/uL Low 4.50-5.90 [facility] Comment on above: Performed By: #### 5 8410-2 ####ANNETTE Castle ([id number])[facility] ([facility])85397 [place] [address] WBC (Bld) [#/Vol] 9.4 x10*3/uL Normal 4.4-11.3 [facility] Comment on above: Performed By: #### 5 8410-2 ####ANNETTE Castle ([id number])[facility] ([facility])[address]73 [place] [address] Calcium.ionizedon 10-02-2024 Calcium.ionized (Bld) [Moles/Vol] 1.19 mmol/L Normal 1.1-1.33 [facility] Comment on above: Result Comment: The performance characteristics of ionized calcium testedin heparinized plasma or serum have been [facility] where [facility].Testing on heparinized plasma or serum is not approved bythe FDA; however, such approval is not necessary. Performed By: #### 1 994-3 ####ANNETTE Castle ([id number])[facility] ([facility])[address] [place] [address] 78905 Gas and Carbon monoxide and Electrolytes panel (BldA)on 10-02-2024 Anion gap 4 (BldA) [Moles/Vol] 10 mmo/L Normal 10-25 [facility] Comment on above: Performed By: #### 9 3685-6 ####ANNETTE Castle ([id number])[facility] ([facility])40532 [place] [address] Base excess Calc (Bld) [Moles/Vol] 1.0 mmol/L Normal -2.0-3.0 [facility] Comment on above: Performed By: #### 9 3685-6 ####ANNETTE Castle ([id number])[facility] ([facility])73716 [place] [address] Calcium.ionized (BldA) [Moles/Vol] 1.19 mmol/L Normal 1.10-1.33 [facility] Comment on above: Performed By: #### 9 3685-6 ####ANNETTE Castle ([id number])[facility] ([facility])06492 [place] [address] Chloride (BldA) [Moles/Vol] 109 mmol/L High 98-107 [facility] Comment on above: Performed By: #### 9 3685-6 ####ANNETTE Castle ([id number])[facility] ([facility])50509 [place] [address] CO2 (Bld) [Partial pressure] 37 mm Hg Low 38-42 [facility] Comment on above: Performed By: #### 9 3685-6 ####ANNETTE Castle ([id number])[facility] ([facility])90271 [place] [address] Glucose [Mass/Vol] 116 mg/dL High 74-99 [facility] Comment on above: Performed By: #### 9 3685-6 ####ANNETTE Castle ([id number])[facility] ([facility])86370 [place] [address] HCO3 (Bld) [Moles/Vol] 25.1 mmol/L Normal 22.0-26.0 [facility] Comment on above: Performed By: #### 9 3685-6 ####ANNETTE Castle ([id number])[facility] ([facility])88417 [place] [address] Hematocrit Est (Bld) [Volume fraction] 31.0 % Low 41.0-52.0 [facility] Comment on above: Performed By: #### 9 3685-6 ####ANNETTE Castle ([id number])[facility] ([facility])66880 [place] [address] Hemoglobin (Bld) [Mass/Vol] 10.3 g/dL Low 13.5-17.5 [facility] Comment on above: Performed By: #### 9 3685-6 ####ANNETTE Castle ([id number])[facility] ([facility])88753 [place] [address] Inhaled oxygen concentration 40 % Normal [facility] Comment on above: Performed By: #### 9 3685-6 ####ANNETTE Castle ([id number])[facility] ([facility])28953 [place] [address] Lactate (BldA) [Moles/Vol] 0.8 mmol/L Normal 0.4-2.0 [facility] Comment on above: Performed By: #### 9 3685-6 ####ANNETTE Castle ([id number])[facility] ([facility])97489 [place] [address] Oxygen (Bld) [Partial pressure] 100 mm Hg High 85-95 [facility] Comment on above: Performed By: #### 9 3685-6 ####ANNETTE Castle ([id number])[facility] ([facility])[address] [place] [address] 66748 Oxyhemoglobin (BldA) [Mass fraction] 96.7 % Normal 94.0-98.0 [facility] Comment on above: Performed By: #### 9 3685-6 ####ANNETTE Castle ([id number])[facility] ([facility])[address] [place] [address] 30950 pH (Bld) 7.44 [pH] High 7.38-7.42 [facility] Comment on above: Performed By: #### 9 3685-6 ####ANNETTE Castle ([id number])[facility] ([facility])85341 [place] [address] Potassium (BldA) [Moles/Vol] 4.2 mmol/L Normal 3.5-5.3 [facility] Comment on above: Performed By: #### 9 3685-6 ####ANNETTE Castle ([id number])[facility] ([facility])06242 [place] [address] Sodium (BldA) [Moles/Vol] 140 mmol/L Normal 136-145 [facility] Comment on above: Performed By: #### 9 3685-6 ####ANNETTE Castle ([id number])[facility] ([facility])[address] [place] [address] 05854 Anion gap 4 (BldA) [Moles/Vol] 10 mmo/L Normal 10-25 [facility] Comment on above: Performed By: #### 9 7855-6 ####ANNETTE Castle ([id number])[facility] ([facility])33989 [place] [address] Base excess Calc (Bld) [Moles/Vol] -0.3000 mmol/L Normal -2.0-3.0 [facility] Comment on above: Performed By: #### 9 3685-6 ####ANNETTE Castle (91824)[facility] ([facility])02396 [place] [address] Calcium.ionized (BldA) [Moles/Vol] 1.13 mmol/L Normal 1.10-1.33 [facility] Comment on above: Performed By: #### 9 3685-6 ####ANNETTE Castle (32835)[facility] ([facility])[address] [place] [address] 28020 Chloride (BldA) [Moles/Vol] 107 mmol/L Normal 98-107 [facility] Comment on above: Performed By: #### 9 3685-6 ####ANNETTE Castle ([id number])[facility] ([facility])[address] [place] [address] 87398 CO2 (Bld) [Partial pressure] 37 mm Hg Low 38-42 [facility] Comment on above: Performed By: #### 9 3685-6 ####ANNETTE Castle ([id number])[facility] ([facility])99747 [place] [address] Glucose [Mass/Vol] 111 mg/dL High 74-99 [facility] Comment on above: Performed By: #### 9 3685-6 ####ANNETTE Castle ([id number])[facility] ([facility])[address] [place] [address] 51916 HCO3 (Bld) [Moles/Vol] 24.0 mmol/L Normal 22.0-26.0 [facility] Comment on above: Performed By: #### 9 3685-6 ####ANNETTE Castle (75532)[facility] ([facility])[address] [place] [address] 45882 Hematocrit Est (Bld) [Volume fraction] 34.0 % Low 41.0-52.0 [facility] Comment on above: Performed By: #### 9 8205-6 ####ANNETTE Castle (65278)[facility] ([facility])[address] [place] [address] 96799 Hemoglobin (Bld) [Mass/Vol] 11.4 g/dL Low 13.5-17.5 [facility] Comment on above: Performed By: #### 9 9525-6 ####ANNETTE Castle ([id number])[facility] ([facility])[address] [place] [address] 23902 Inhaled oxygen concentration 35 % Normal [facility] Comment on above: Performed By: #### 9 5875-6 ####ANNETTE Castle (96581)[facility] ([facility])[address] [place] [address] 14454 Lactate (BldA) [Moles/Vol] 1.3 mmol/L Normal 0.4-2.0 [facility] Comment on above: Performed By: #### 9 7745-6 ####ANNETTE Castle ([id number])[facility] ([facility])[address] [place] [address] 99866 Oxygen (Bld) [Partial pressure] 81 mm Hg Low 85-95 [facility] Comment on above: Performed By: #### 9 9155-6 ####ANNETTE Castle ([id number])[facility] ([facility])[address] [place] [address] 98653 Oxyhemoglobin (BldA) [Mass fraction] 95.1 % Normal 94.0-98.0 [facility] Comment on above: Performed By: #### 9 0688-6 ####ANNETTE Castle ([id number])[facility] ([facility])[address] [place] [address] 82150 pH (Bld) 7.42 [pH] Normal 7.38-7.42 [facility] Comment on above: Performed By: #### 9 2723-6 ####ANNETTE Castle ([id number])[facility] ([facility])20291 [place] [address] Potassium (BldA) [Moles/Vol] 3.9 mmol/L Normal 3.5-5.3 [facility] Comment on above: Performed By: #### 9 3685-6 ####ANNETTE Castle (16369)[facility] ([facility])96997 [place] [address] Sodium (BldA) [Moles/Vol] 137 mmol/L Normal 136-145 [facility] Comment on above: Performed By: #### 9 3685-6 ####ANNETTE Castle ([id number])[facility] ([facility])65661 [place] [address] Glucose Test strip manual (B ld) [Mass/Vol]on 10-02-2024 Glucose [Mass/Vol] 122 mg/dL High [address] [place] [address] Comment on above: Performed By: #### 2 341-6 ####ANNETTE Castle (85352)[facility] ([facility])43729 [place] [address] Glucose [Mass/Vol] 116 mg/dL High [address] [place] [address] Comment on above: Performed By: #### 2 341-6 ####ANNETTE Castle (72612)[facility] ([facility])81861 [place] [address] Glucose [Mass/Vol] 128 mg/dL High [address] [place] [address] Comment on above: Performed By: #### 2 341-6 ####ANNETTE Castle ([id number])[facility] ([facility])48629 [place] [address] Glucose [Mass/Vol] 107 mg/dL High [address] [place] [address] Comment on above: Performed By: #### 2 341-6 ####ANNETTE Castle ([id number])[facility] ([facility])39751 [place] [address] Glucose [Mass/Vol] 111 mg/dL High 74-99 [facility] Comment on above: Performed By: #### 2 341-6 ####ANNETTE Castle (94950)[facility] ([facility])60348 [place] [address] Glucose [Mass/Vol] 107 mg/dL High 74-99 [facility] Comment on above: Performed By: #### 2 341-6 ####ANNETTE Castle (06857)[facility] ([facility])81685 [place] [address] Magnesiumon 10-02-2024 Magnesium [Mass/Vol] 2.69 mg/dL High 1.60-2.40 [facility] Comment on above: Performed By: #### 1 9123-9 ####ANNETTE Castle ([id number])[facility] ([facility])[address] [place] [address] 86605 PT and aPTT panel Coag (PPP) on 10-02-2024 aPTT Coag (PPP) [Time] 23 s Low 26-36 [facility] Comment on above: Order Comment: The A PTT is no longer used for monitoring Unfractionated Heparin Therapy. For monitoring Heparin Therapy, use the Heparin Assay. Performed By: #### 3 4529-8 ####ANNETTE Castle (25771)[facility] ([facility])[address]95 [place] [address] INR Coag (PPP) [Relative time] 1.1 Normal 0.9-1.1 [facility] Comment on above: Order Comment: The A PTT is no longer used for monitoring Unfractionated Heparin Therapy. For monitoring Heparin Therapy, use the Heparin Assay. Performed By: #### 3 4529-8 ####ANNETTE Castle ([id number])[facility] ([facility])87503 [place] [address] PT Coag (PPP) [Time] 12.3 s Normal 9.8-12.4 [facility] Comment on above: Order Comment: The A PTT is no longer used for monitoring Unfractionated Heparin Therapy. For monitoring Heparin Therapy, use the Heparin Assay. Performed By: #### 3 4529-8 ####ANNETTE Castle ([id number])[facility] ([facility])49132 [place] [address] Renal function 2000 panelon 10-02-2024 Albumin BCP dye [Mass/Vol] 3.7 g/dL Normal 3.4-5.0 [facility] Comment on above: Performed By: #### 2 4362-6 ####ANNETTE Castle (05905)[facility] ([facility])08045 [place] [address] Anion gap [Moles/Vol] 14 mmol/L Normal 10-20 [facility] Comment on above: Performed By: #### 2 4362-6 ####ANNETTE Castle (68950)[facility] ([facility])22146 [place] [address] Calcium [Mass/Vol] 8.9 mg/dL Normal 8.6-10.6 [facility] Comment on above: Performed By: #### 2 4362-6 ####ANNETTE Castle (84391)[facility] ([facility])19101 [place] [address] Chloride [Moles/Vol] 107 mmol/L Normal 98-107 [facility] Comment on above: Performed By: #### 2 4362-6 ####ANNETTE GARCIA L ([id number])[facility] ([facility])27638 [place] [address] CO2 [Moles/Vol] 25 mmol/L Normal 21-32 [facility] Comment on above: Performed By: #### 2 4362-6 ####ANNETTE GARCIA L ([id number])[facility] ([facility])[address]277 [place] [address] Creatinine [Mass/Vol] 0.91 mg/dL Normal 0.50-1.30 [facility] Comment on above: Performed By: #### 2 4362-6 ####ANNETTE Castle ([id number])[facility] ([facility])[address]82 [place] [address] Glomerular filtration rate 88 mL/min/1.73m*2 Normal >60 [facility] Comment on above: Result Comment: Calc ulations of estimated GFR are performed using the 2020 CKD-EPI Study Refit equation without the race variable for the IDMS-Traceable creatinine methods.https://jasn.asnjournals.org/content/early/ ASN.9334358187 Performed By: #### 2 4362-6 ####ANNETTE Castle ([id number])[facility] ([facility])[address]37 [place] [address] Glucose [Mass/Vol] 105 mg/dL High 74-99 [facility] Comment on above: Performed By: #### 2 4362-6 ####ANNETTE GARCIA L ([id number])[facility] ([facility])[address]25 [place] [address] Phosphate [Mass/Vol] 2.8 mg/dL Normal 2.5-4.9 [facility] Comment on above: Performed By: #### 2 4362-6 ####ANNETTE GARCIA L ([id number])[facility] ([facility])[address] [place] [address] Potassium [Moles/Vol] 4.0 mmol/L Normal 3.5-5.3 [facility] Comment on above: Performed By: #### 2 4362-6 ####ANNETTE GARCIA L ([id number])[facility] ([facility])[address] [place] [address] Sodium [Moles/Vol] 142 mmol/L Normal 136-145 [facility] Comment on above: Performed By: #### 2 4362-6 ####ANNETTE GARCIA L ([id number])[facility] ([facility])[address] [place] [address] Urea nitrogen [Mass/Vol] 32 mg/dL High 6-23 [facility] Comment on above: Performed By: #### 2 4362-6 ####ANNETTE Castle ([id number])[facility] ([facility])[address] [place] [address] XR ABDOMEN 1 VIEWon 10-03-19 XR ABDOMEN 1 VIEW Normal [facility] XR CHEST 1 VIEWon 10-02-2024 XR CHEST 1 VIEW Normal [facility] Blood type and Indirect anti body screen panel (Bld)on 10-01-2024 ABO group Nom (Bld) A Normal [facility] Comment on above: Performed By: #### 3 4532-2 ####ANNETTE Castle ([id number])[facility] ([facility])[id number] [place] [id number] Blood group antibody screen Ql Negative Normal [facility] [facility] Comment on above: Performed By: #### 3 4532-2 ####ANNETTE Castle ([id number])[facility] ([facility])[id number] [place] [address] D Ag Ql (Bld) Positive Normal [facility] Comment on above: Performed By: #### 3 4532-2 ####ANNETTE Castle ([id number])[facility] ([facility])[address] [place] [address] 91157 CBC panel Auto (Bld)on 10-01 Erythrocyte distribution width (RBC) [Ratio] 17.3 % High 11.5-14.5 [facility] Comment on above: Performed By: #### 5 8410-2 ####ANNETTE Castle ([id number])[facility] ([facility])[address] [place] [address] Hematocrit (Bld) [Volume fraction] 27.1 % Low 41.0-52.0 [facility] Comment on above: Performed By: #### 5 8410-2 ####ANNETTE Castle ([id number])[facility] ([facility])[address] [place] [address] Hemoglobin (Bld) [Mass/Vol] 9.4 g/dL Low 13.5-17.5 [facility] Comment on above: Performed By: #### 5 8410-2 ####ANNETTE Castle ([id number])[facility] ([facility])[address] [place] [address] MCH (RBC) [Entitic mass] 29.4 pg Normal 26.0-34.0 [facility] Comment on above: Performed By: #### 5 8410-2 ####ANNETTE Castle ([id number])[facility] ([facility])[address] [place] [address] MCHC (RBC) [Mass/Vol] 34.7 g/dL Normal 32.0-36.0 [facility] Comment on above: Performed By: #### 5 8410-2 ####ANNETTE Castle ([id number])[facility] ([facility])[address] [place] [address] MCV (RBC) [Entitic vol] 85 fL Normal 80-100 [facility] Comment on above: Performed By: #### 5 8410-2 ####ANNETTE Castle ([id number])[facility] ([facility])[address]196 [place] [address] Nucleated RBC/100 WBC (Bld) [Ratio] 0.3 /100 WBCs High 0.0-0.0 [facility] Comment on above: Performed By: #### 5 8410-2 ####ANNETTE Castle ([id number])[facility] ([facility])[address] [place] [address] Platelets (Bld) [#/Vol] 133 x10*3/uL Low 150-450 [facility] Comment on above: Performed By: #### 5 8410-2 ####ANNETTE Castle ([id number])[facility] ([facility])[address] [place] [address] RBC (Bld) [#/Vol] 3.20 x10*6/uL Low 4.50-5.90 [facility] Comment on above: Performed By: #### 5 8410-2 ####ANNETTE Castle ([id number])[facility] ([facility])[address]24 [place] [address] WBC (Bld) [#/Vol] 9.0 x10*3/uL Normal 4.4-11.3 [facility] Comment on above: Performed By: #### 5 8410-2 ####ANNETTE Castle ([id number])[facility] ([facility])[address]368 [place] [address] Erythrocyte distribution width (RBC) [Ratio] 17.8 % High 11.5-14.5 [facility] Comment on above: Performed By: #### 5 8410-2 ####ANNETTE Castle ([id number])[facility] ([facility])[address]84 [place] [address] Hematocrit (Bld) [Volume fraction] 28.2 % Low 41.0-52.0 [facility] Comment on above: Performed By: #### 5 8410-2 ####ANNETTE Castle ([id number])[facility] ([facility])[address] [place] [address] Hemoglobin (Bld) [Mass/Vol] 9.2 g/dL Low 13.5-17.5 [facility] Comment on above: Performed By: #### 5 8410-2 ####ANNETTE Castle ([id number])[facility] ([facility])[address]440 [place] [address] MCH (RBC) [Entitic mass] 28.9 pg Normal 26.0-34.0 [facility] Comment on above: Performed By: #### 5 8410-2 ####ANNETTE Castle ([id number])[facility] ([facility])[address]80 [place] [address] MCHC (RBC) [Mass/Vol] 32.6 g/dL Normal 32.0-36.0 [facility] Comment on above: Performed By: #### 5 8410-2 ####ANNETTE Castle ([id number])[facility] ([facility])[address]19 [place] [address] MCV (RBC) [Entitic vol] 89 fL Normal 80-100 [facility] Comment on above: Performed By: #### 5 8410-2 ####ANNETTE Castle ([id number])[facility] ([facility])[address]23 [place] [address] Nucleated RBC/100 WBC (Bld) [Ratio] 0.4 /100 WBCs High 0.0-0.0 [facility] Comment on above: Performed By: #### 5 8410-2 ####ANNETTE Castle ([id number])[facility] ([facility])[address]559 [place] [address] Platelets (Bld) [#/Vol] 124 x10*3/uL Low 150-450 [facility] Comment on above: Performed By: #### 5 8410-2 ####ANNETTE Castle ([id number])[facility] ([facility])30893 [place] [address] RBC (Bld) [#/Vol] 3.18 x10*6/uL Low 4.50-5.90 [facility] Comment on above: Performed By: #### 5 8410-2 ####ANNETTE Castle ([id number])[facility] ([facility])[address]13 [place] [address] WBC (Bld) [#/Vol] 8.9 x10*3/uL Normal 4.4-11.3 [facility] Comment on above: Performed By: #### 5 8410-2 ####ANNETTE Castle ([id number])[facility] ([facility])[address]309 [place] [address] Erythrocyte distribution width (RBC) [Ratio] 17.5 % High 11.5-14.5 [facility] Comment on above: Performed By: #### 5 8410-2 ####ANNETTE Castle ([id number])[facility] ([facility])34345 [place] [address] Hematocrit (Bld) [Volume fraction] 28.2 % Low 41.0-52.0 [facility] Comment on above: Performed By: #### 5 8410-2 ####ANNETTE Castle ([id number])[facility] ([facility])[address] [place] [address] 18127 Hemoglobin (Bld) [Mass/Vol] 9.1 g/dL Low 13.5-17.5 [facility] Comment on above: Performed By: #### 5 8410-2 ####ANNETTE Castle ([id number])[facility] ([facility])[address] [place] [address] 536[address] MCH (RBC) [Entitic mass] 29.0 pg Normal 26.0-34.0 [facility] Comment on above: Performed By: #### 5 8410-2 ####ANNETTE Castle ([id number])[facility] ([facility])[address] [place] [address]1976 MCHC (RBC) [Mass/Vol] 32.3 g/dL Normal 32.0-36.0 [facility] Comment on above: Performed By: #### 5 8410-2 ####ANNETTE Castle ([id number])[facility] ([facility])[address] [place] [address] 97392 MCV (RBC) [Entitic vol] 90 fL Normal 80-100 [facility] Comment on above: Performed By: #### 5 8410-2 ####ANNETTE Castle ([id number])[facility] ([facility])[address] [place] [address] 80498 Nucleated RBC/100 WBC (Bld) [Ratio] 0.2 /100 WBCs High 0.0-0.0 [facility] Comment on above: Performed By: #### 5 8410-2 ####ANNETTE Castle ([id number])[facility] ([facility])[address]19 [place] [address] Platelets (Bld) [#/Vol] 121 x10*3/uL Low 150-450 [facility] Comment on above: Performed By: #### 5 8410-2 ####ANNETTE Castle ([id number])[facility] ([facility])[address]98 [place] [address] RBC (Bld) [#/Vol] 3.14 x10*6/uL Low 4.50-5.90 [facility] Comment on above: Performed By: #### 5 8410-2 ####ANNETTE Castle ([id number])[facility] ([facility])70647 [place] [address] WBC (Bld) [#/Vol] 8.4 x10*3/uL Normal 4.4-11.3 [facility] Comment on above: Performed By: #### 5 8410-2 ####ANNETTE Castle ([id number])[facility] ([facility])42097 [place] [address] Erythrocyte distribution width (RBC) [Ratio] 17.7 % High 11.5-14.5 [facility] Comment on above: Performed By: #### 5 8410-2 ####ANNETTE Castle ([id number])[facility] ([facility])65469 [place] [address] Hematocrit (Bld) [Volume fraction] 25.4 % Low 41.0-52.0 [facility] Comment on above: Performed By: #### 5 8410-2 ####ANNETTE Castle (19676)[facility] ([facility])[address]74 [place] [address] Hemoglobin (Bld) [Mass/Vol] 7.8 g/dL Low 13.5-17.5 [facility] Comment on above: Performed By: #### 5 8410-2 ####ANNETTE Castle ([id number])[facility] ([facility])32673 [place] [address] MCH (RBC) [Entitic mass] 28.5 pg Normal 26.0-34.0 [facility] Comment on above: Performed By: #### 5 8410-2 ####ANNETTE Castle ([id number])[facility] ([facility])47447 [place] [address] MCHC (RBC) [Mass/Vol] 30.7 g/dL Low 32.0-36.0 [facility] Comment on above: Performed By: #### 5 8410-2 ####ANNETTE Castle ([id number])[facility] ([facility])[address]69 [place] [address] MCV (RBC) [Entitic vol] 93 fL Normal 80-100 [facility] Comment on above: Performed By: #### 5 8410-2 ####ANNETTE Castle ([id number])[facility] ([facility])54274 [place] [address] Nucleated RBC/100 WBC (Bld) [Ratio] 0.0 /100 WBCs Normal 0.0-0.0 [facility] Comment on above: Performed By: #### 5 8410-2 ####ANNETTE Castle (53956)[facility] ([facility])65902 [place] [address] Platelets (Bld) [#/Vol] 107 x10*3/uL Low 150-450 [facility] Comment on above: Performed By: #### 5 8410-2 ####ANNETTE Castle ([id number])[facility] ([facility])28073 [place] [address] RBC (Bld) [#/Vol] 2.74 x10*6/uL Low 4.50-5.90 [facility] Comment on above: Performed By: #### 5 8410-2 ####ANNETTE Castle ([id number])[facility] ([facility])43205 [place] [address] WBC (Bld) [#/Vol] 8.2 x10*3/uL Normal 4.4-11.3 [facility] Comment on above: Performed By: #### 5 8410-2 ####ANNETTE Castle ([id number])[facility] ([facility])[address] [place] [address] ABDOMEN PELVIS WO IV CONT RASTon 10-01-2024 CT ABDOMEN PELVIS WO IV CONTRAST Normal [facility] Calcium.ionizedon 10-01-2024 Calcium.ionized (Bld) [Moles/Vol] 1.21 mmol/L Normal 1.1-1.33 [facility] Comment on above: Result Comment: The performance characteristics of ionized calcium testedin heparinized plasma or serum have [facility].Testing on heparinized plasma or serum is not [facility] FDA; however, such approval is not necessary. Performed By: #### 1 994-3 ####ANNETTE Castle ([id number])[facility] ([facility])[address] [place] [address] 25532 Calcium.ionized (Bld) [Moles/Vol] 1.06 mmol/L Low 1.1-1.33 [facility] Comment on above: Result Comment: The performance characteristics of ionized calcium testedin heparinized plasma or serum have been validated [facility] where [facility] is performed.Testing on heparinized plasma or serum is not approved [facility] FDA; however, such approval is not necessary. Performed By: #### 1 994-3 ####ANNETTE Castle ([id number])[facility] ([facility])[address] [place] [address] 23699 Creatine kinaseon 10-01-2024 CK [Catalytic activity/Vol] 76 U/L Normal 0-325 [facility] Comment on above: Performed By: #### 2 157-6 ####ANNETTE Castle ([id number])[facility] ([facility])[address] [place] [address] 62312 Gas and Carbon monoxide and Electrolytes panel (BldA)on 10-01-2024 Anion gap 4 (BldA) [Moles/Vol] 11 mmo/L Normal 10-25 [facility] Comment on above: Performed By: #### 9 3685-6 ####ANNETTE Castle ([id number])[facility] ([facility])[address]59 [place] [address] Base excess Calc (Bld) [Moles/Vol] 0.6 mmol/L Normal -2.0-3.0 [facility] Comment on above: Performed By: #### 9 3685-6 ####ANNETTE Castle ([id number])[facility] ([facility])66540 [place] [address] Calcium.ionized (BldA) [Moles/Vol] 1.24 mmol/L Normal 1.10-1.33 [facility] Comment on above: Performed By: #### 9 3685-6 ####ANNETTE Castle ([id number])[facility] ([facility])95636 [place] [address] Chloride (BldA) [Moles/Vol] 105 mmol/L Normal 98-107 [facility] Comment on above: Performed By: #### 9 3685-6 ####ANNETTE Castle (77832)[facility] ([facility])[address]99 [place] [address] CO2 (Bld) [Partial pressure] 34 mm Hg Low 38-42 [facility] Comment on above: Performed By: #### 9 3685-6 ####ANNETTE Castle ([id number])[facility] ([facility])42798 [place] [address] Glucose [Mass/Vol] 114 mg/dL High 74-99 [facility] Comment on above: Performed By: #### 9 3685-6 ####ANNETTE Castle ([id number])[facility] ([facility])54015 [place] [address] HCO3 (Bld) [Moles/Vol] 24.2 mmol/L Normal 22.0-26.0 [facility] Comment on above: Performed By: #### 9 3685-6 ####ANNETTE Castle ([id number])[facility] ([facility])22496 [place] [address] Hematocrit Est (Bld) [Volume fraction] 30.0 % Low 41.0-52.0 [facility] Comment on above: Performed By: #### 9 3685-6 ####ANNETTE Castle (96812)[facility] ([facility])13517 [place] [address] Hemoglobin (Bld) [Mass/Vol] 9.9 g/dL Low 13.5-17.5 [facility] Comment on above: Performed By: #### 9 3685-6 ####ANNETTE Castle (35391)[facility] ([facility])[address] [place] [address] 45975 Inhaled oxygen concentration 35 % Normal [facility] Comment on above: Performed By: #### 9 3685-6 ####ANNETTE Castle ([id number])[facility] ([facility])[address] [place] [address] 54947 Lactate (BldA) [Moles/Vol] 1.1 mmol/L Normal 0.4-2.0 [facility] Comment on above: Performed By: #### 9 3685-6 ####ANNETTE Castle (55397)[facility] ([facility])[address] [place] [address] 43567 Oxygen (Bld) [Partial pressure] 78 mm Hg Low 85-95 [facility] Comment on above: Performed By: #### 9 3685-6 ####ANNETTE Castle ([id number])[facility] ([facility])75325 [place] [address] Oxyhemoglobin (BldA) [Mass fraction] 95.6 % Normal 94.0-98.0 [facility] Comment on above: Performed By: #### 9 3685-6 ####ANNETTE Castle ([id number])[facility] ([facility])[address] [place] [address] pH (Bld) 7.46 [pH] High 7.38-7.42 [facility] Comment on above: Performed By: #### 9 3685-6 ####ANNETTE Castle ([id number])[facility] ([facility])[address] [place] [address] 48761 Potassium (BldA) [Moles/Vol] 3.7 mmol/L Normal 3.5-5.3 [facility] Comment on above: Performed By: #### 9 3685-6 ####ANNETTE Castle ([id number])[facility] ([facility])[address] [place] [address] 98910 Sodium (BldA) [Moles/Vol] 136 mmol/L Normal 136-145 [facility] Comment on above: Performed By: #### 9 3685-6 ####ANNETTE Castle ([id number])[facility] ([facility])[address] [place] [address] 45808 Anion gap 4 (BldA) [Moles/Vol] 11 mmo/L Normal 10-25 [facility] Comment on above: Performed By: #### 9 3685-6 ####ANNETTE Castle ([id number])[facility] ([facility])[address] [place] [address] 01549 Base excess Calc (Bld) [Moles/Vol] -1.4000 mmol/L Normal -2.0-3.0 [facility] Comment on above: Performed By: #### 9 3685-6 ####ANNETTE Castle ([id number])[facility] ([facility])[address] [place] [address] 03520 Calcium.ionized (BldA) [Moles/Vol] 1.12 mmol/L Normal 1.10-1.33 [facility] Comment on above: Performed By: #### 9 3685-6 ####ANNETTE Castle ([id number])[facility] ([facility])[address] [place] [address] 28064 Chloride (BldA) [Moles/Vol] 105 mmol/L Normal 98-107 [facility] Comment on above: Performed By: #### 9 3685-6 ####ANNETTE Castle ([id number])[facility] ([facility])99181 [place] [address] CO2 (Bld) [Partial pressure] 34 mm Hg Low 38-42 [facility] Comment on above: Performed By: #### 9 3685-6 ####ANNETTE Castle ([id number])[facility] ([facility])33724 [place] [address] Glucose [Mass/Vol] 144 mg/dL High 74-99 [facility] Comment on above: Performed By: #### 9 3685-6 ####ANNETTE Castle (10268)[facility] ([facility])32391 [place] [address] HCO3 (Bld) [Moles/Vol] 22.6 mmol/L Normal 22.0-26.0 [facility] Comment on above: Performed By: #### 9 3685-6 ####ANNETTE Castle ([id number])[facility] ([facility])44939 [place] [address] Hematocrit Est (Bld) [Volume fraction] 26.0 % Low 41.0-52.0 [facility] Comment on above: Performed By: #### 9 3685-6 ####ANNETTE Castle (09356)[facility] ([facility])22087 [place] [address] Hemoglobin (Bld) [Mass/Vol] 8.5 g/dL Low 13.5-17.5 [facility] Comment on above: Performed By: #### 9 3685-6 ####ANNETTE Castle ([id number])[facility] ([facility])22201 [place] [address] Inhaled oxygen concentration 40 % Normal [facility] Comment on above: Performed By: #### 9 4965-6 ####ANNETTE Castle ([id number])[facility] ([facility])48822 [place] [address] Lactate (BldA) [Moles/Vol] 0.9 mmol/L Normal 0.4-2.0 [facility] Comment on above: Performed By: #### 9 3685-6 ####ANNETTE Castle ([id number])[facility] ([facility])[address] [place] [address] 61992 Oxygen (Bld) [Partial pressure] 87 mm Hg Normal 85-95 [facility] Comment on above: Performed By: #### 9 3685-6 ####ANNETTE Castle ([id number])[facility] ([facility])[address] [place] [address] 22298 Oxyhemoglobin (BldA) [Mass fraction] 96.5 % Normal 94.0-98.0 [facility] Comment on above: Performed By: #### 9 3685-6 ####ANNETTE Castle ([id number])[facility] ([facility])[address] [place] [address] 48426 pH (Bld) 7.43 [pH] High 7.38-7.42 [facility] Comment on above: Performed By: #### 9 7575-6 ####ANNETTE Castle ([id number])[facility] ([facility])[address] [place] [address] 96658 Potassium (BldA) [Moles/Vol] 3.8 mmol/L Normal 3.5-5.3 [facility] Comment on above: Performed By: #### 9 3685-6 ####ANNETTE Castle (47575)[facility] ([facility])[address] [place] [address] 55001 Sodium (BldA) [Moles/Vol] 135 mmol/L Low 136-145 [facility] Comment on above: Performed By: #### 9 3685-6 ####ANNETTE Castle ([id number])[facility] ([facility])[address] [place] [address] 60550 Glucose Test strip manual (B ld) [Mass/Vol]on 10-01-2024 Glucose [Mass/Vol] 104 mg/dL High 74-99 [facility] Comment on above: Performed By: #### 2 341-6 ####ANNETTE Castle ([id number])[facility] ([facility])[address]315 [place] [address] Glucose [Mass/Vol] 110 mg/dL High 74-99 [facility] Comment on above: Performed By: #### 2 341-6 ####ANNETTE Castle ([id number])[facility] ([facility])[address]73 [place] [address] Glucose [Mass/Vol] 112 mg/dL High 74-99 [facility] Comment on above: Performed By: #### 2 341-6 ####ANNETTE Castle (90438)[facility] ([facility])[address]67 [place] [address] Glucose [Mass/Vol] 97 mg/dL Normal 74-99 [facility] Comment on above: Performed By: #### 2 341-6 ####ANNETTE Castle ([id number])[facility] ([facility])[address] [place] [address] Hepatic function 2000 panelo n 10-01-2024 ALP [Catalytic activity/Vol] 33 U/L Normal 33-136 [facility] Comment on above: Performed By: #### 2 4325-3 ####ANNETTE Castle ([id number])[facility] ([facility])[address] [place] [address] ALT With P-5'-P [Catalytic activity/Vol] 11 U/L Normal 10-52 [facility] Comment on above: Result Comment: Jaqueline ents treated with Sulfasalazine may generate falsely decreased results for ALT. Performed By: #### 2 4325-3 ####ANNETTE Castle ([id number])[facility] ([facility])[address] [place] [address] AST With P-5'-P [Catalytic activity/Vol] 14 U/L Normal 9-39 [facility] Comment on above: Performed By: #### 2 4325-3 ####ANNETTE Castle ([id number])[facility] ([facility])[address] [place] [address] Bilirubin [Mass/Vol] 1.3 mg/dL High 0.0-1.2 [facility] Comment on above: Performed By: #### 2 4325-3 ####ANNETTE Castle ([id number])[facility] ([facility])[id number] [place] [id number] Bilirubin.direct [Mass/Vol] 0.5 mg/dL High 0.0-0.3 [facility] Comment on above: Performed By: #### 2 4325-3 ####ANNETTE Castle ([id number])[facility] ([facility])[address] [place] [address] 84765 Protein [Mass/Vol] 5.1 g/dL Low 6.4-8.2 [facility] Comment on above: Performed By: #### 2 4325-3 ####ANNETTE Castle ([id number])[facility] ([facility])[address] [place] [address] Magnesiumon 10-01-2024 Magnesium [Mass/Vol] 2.47 mg/dL High 1.60-2.40 [facility] Comment on above: Performed By: #### 1 9123-9 ####ANNETTE Castle ([id number])[facility] ([facility])[address] [place] [address] Magnesium [Mass/Vol] 2.30 mg/dL Normal 1.60-2.40 [facility] Comment on above: Performed By: #### 1 9123-9 ####ANNETTE Castle ([id number])[facility] ([facility])[address] [place] [address] 97964 PT and aPTT panel Coag (PPP) on 10-01-2024 aPTT Coag (PPP) [Time] 24 s Low 26-36 [facility] Comment on above: Order Comment: The A PTT is no longer used for monitoring Unfractionated Heparin Therapy. For monitoring Heparin Therapy, use the Heparin Assay. Performed By: #### 3 4529-8 ####ANNETTE Castle ([id number])[facility] ([facility])[address] [place] [address] 85834 INR Coag (PPP) [Relative time] 1.3 High 0.9-1.1 [facility] Comment on above: Order Comment: The A PTT is no longer used for monitoring Unfractionated Heparin Therapy. For monitoring Heparin Therapy, use the Heparin Assay. Performed By: #### 3 4529-8 ####ANNETTE Castle ([id number])[facility] ([facility])[address] [place] [address] 48117 PT Coag (PPP) [Time] 14.4 s High 9.8-12.4 [facility] Comment on above: Order Comment: The A PTT is no longer used for monitoring Unfractionated Heparin Therapy. For monitoring Heparin Therapy, use the Heparin Assay. Performed By: #### 3 4529-8 ####ANNETTE Castle ([id number])[facility] ([facility])[address] [place] [address] 25082 Renal function 2000 panelon 10-01-2024 Albumin BCP dye [Mass/Vol] 3.8 g/dL Normal 3.4-5.0 [facility] Comment on above: Performed By: #### 2 4362-6 ####ANNETTE Castle ([id number])[facility] ([facility])[address] [place] [address] 07024 Anion gap [Moles/Vol] 16 mmol/L Normal 10-20 [facility] Comment on above: Performed By: #### 2 4362-6 ####ANNETTE Castle ([id number])[facility] ([facility])[address] [place] [address] 46184 Calcium [Mass/Vol] 8.9 mg/dL Normal 8.6-10.6 [facility] Comment on above: Performed By: #### 2 4362-6 ####ANNETTE Castle ([id number])[facility] ([facility])[address] [place] [address] Chloride [Moles/Vol] 105 mmol/L Normal 98-107 [facility] Comment on above: Performed By: #### 2 4362-6 ####ANNETTE GARCIA L ([id number])[facility] ([facility])[address]83 [place] [address] CO2 [Moles/Vol] 25 mmol/L Normal 21-32 [facility] Comment on above: Performed By: #### 2 4362-6 ####ANNETTE Castle ([id number])[facility] ([facility])[address]99 [place] [address] Creatinine [Mass/Vol] 0.82 mg/dL Normal 0.50-1.30 [facility] Comment on above: Performed By: #### 2 4362-6 ####ANNETTE Castle ([id number])[facility] ([facility])[address]23 [place] [address] Glomerular filtration rate >90 Normal >60 [facility] Comment on above: Result Comment: Calc ulations of estimated GFR are performed using the 2020 CKD-EPI Study Refit equation without the race variable for the IDMS-Traceable creatinine methods.https://jasn.asnjournals.org/content// ASN.2761195224 Performed By: #### 2 4362-6 ####ANNETTE Castle ([id number])[facility] ([facility])[address]35 [place] [address] Glucose [Mass/Vol] 109 mg/dL High 74-99 [facility] Comment on above: Performed By: #### 2 4362-6 ####ANNETTE GARCIA L ([id number])[facility] ([facility])[address] [place] [address] Phosphate [Mass/Vol] 2.3 mg/dL Low 2.5-4.9 [facility] Comment on above: Performed By: #### 2 4362-6 ####ANNETTE Castle ([id number])[facility] ([facility])[address]99 [place] [address] Potassium [Moles/Vol] 3.7 mmol/L Normal 3.5-5.3 [facility] Comment on above: Performed By: #### 2 4362-6 ####ANNETTE Castle ([id number])[facility] ([facility])[address]64 [place] [address] Sodium [Moles/Vol] 142 mmol/L Normal 136-145 [facility] Comment on above: Performed By: #### 2 4362-6 ####ANNETTE Castle ([id number])[facility] ([facility])[address]697 [place] [address] Urea nitrogen [Mass/Vol] 31 mg/dL High 6-23 [facility] Comment on above: Performed By: #### 2 4362-6 ####ANNETTE Castle ([id number])[facility] ([facility])[address]209 [place] [address] Albumin BCP dye [Mass/Vol] 3.7 g/dL Normal 3.4-5.0 [facility] Comment on above: Performed By: #### 2 4362-6 ####ANNETTE Castle ([id number])[facility] ([facility])[address]305 [place] [address] Performed By: #### 2 4325-3 ####ANNETTE Castle ([id number])[facility] ([facility])39546 [place] [address] Anion gap [Moles/Vol] 15 mmol/L Normal 10-20 [facility] Comment on above: Performed By: #### 2 4362-6 ####ANNETTE Castle (65550)[facility] ([facility])[address]69 [place] [address] Calcium [Mass/Vol] 8.2 mg/dL Low 8.6-10.6 [facility] Comment on above: Performed By: #### 2 4362-6 ####ANNETTE Castle ([id number])[facility] ([facility])30251 [place] [address] Chloride [Moles/Vol] 103 mmol/L Normal 98-107 [facility] Comment on above: Performed By: #### 2 4362-6 ####ANNETTE RAMSEYTZVISHNU L (67095)[facility] ([facility])40473 [place] [address] CO2 [Moles/Vol] 23 mmol/L Normal 21-32 [facility] Comment on above: Performed By: #### 2 4362-6 ####ANNETTE Castle ([id number])[facility] ([facility])12282 [place] [address] Creatinine [Mass/Vol] 0.84 mg/dL Normal 0.50-1.30 [facility] Comment on above: Performed By: #### 2 4362-6 ####ANNETTE GARCIA L ([id number])[facility] ([facility])[address]77 [place] [address] Glomerular filtration rate >90 Normal >60 [facility] Comment on above: Result Comment: Calc ulations of estimated GFR are performed using the 2020 CKD-EPI Study Refit equation without the race variable for the IDMS-Traceable creatinine methods.https://jasn.asnjournals.org/content// ASN.4954040253 Performed By: #### 2 4362-6 ####ANNETTE RAMSEYTZVISHNU L (66302)[facility] ([facility])[address]016 [place] [address] Glucose [Mass/Vol] 151 mg/dL High 74-99 [facility] Comment on above: Performed By: #### 2 4362-6 ####ANNETTE YEBOAHMOTZVISHNU L (42607)[facility] ([facility])[address]420 [place] [address] Phosphate [Mass/Vol] 2.5 mg/dL Normal 2.5-4.9 [facility] Comment on above: Performed By: #### 2 4362-6 ####ANNETTE Castle (88660)[facility] ([facility])[address] [place] [address] 25042 Potassium [Moles/Vol] 3.8 mmol/L Normal 3.5-5.3 [facility] Comment on above: Performed By: #### 2 4362-6 ####ANNETTE Castle ([id number])[facility] ([facility])[address] [place] [address] 24388 Sodium [Moles/Vol] 137 mmol/L Normal 136-145 [facility] Comment on above: Performed By: #### 2 4362-6 ####ANNETTE Castle ([id number])[facility] ([facility])[address] [place] [address] 13598 Urea nitrogen [Mass/Vol] 31 mg/dL High 6-23 [facility] Comment on above: Performed By: #### 2 4362-6 ####ANNETTE Castle (37539)[facility] ([facility])[address] [place] [address] 81664 XR CHEST 1 VIEWon 10-01-2024 XR CHEST 1 VIEW Normal [facility] Bacteriaon 09-30-2024 Bacteria identified Respiratory culture Nom (Unsp spec) Abnormal [facility] Comment on above: Performed By: #### 3 2355-0 ####ANNETTE Castle ([id number])[facility] ([facility])[address] [place] [address] 33916 CBC panel Auto (Bld)on 09-30 Erythrocyte distribution width (RBC) [Ratio] 17.2 % High 11.5-14.5 [facility] Comment on above: Performed By: #### 5 8410-2 ####ANNETTE Castle (07007)[facility] ([facility])[address] [place] [address] 28964 Hematocrit (Bld) [Volume fraction] 23.2 % Low 41.0-52.0 [facility] Comment on above: Performed By: #### 5 8410-2 ####ANNETTE Castle ([id number])[facility] ([facility])16902 [place] [address] Hemoglobin (Bld) [Mass/Vol] 7.7 g/dL Low 13.5-17.5 [facility] Comment on above: Performed By: #### 5 8410-2 ####ANNETTE Castle (82712)[facility] ([facility])[address]20 [place] [address] MCH (RBC) [Entitic mass] 28.2 pg Normal 26.0-34.0 [facility] Comment on above: Performed By: #### 5 8410-2 ####ANNETTE Castle ([id number])[facility] ([facility])[address] [place] [address] 72869 MCHC (RBC) [Mass/Vol] 33.2 g/dL Normal 32.0-36.0 [facility] Comment on above: Performed By: #### 5 8410-2 ####ANNETTE Castle ([id number])[facility] ([facility])[address] [place] [address] 09496 MCV (RBC) [Entitic vol] 85 fL Normal 80-100 [facility] Comment on above: Performed By: #### 5 8410-2 ####ANNETTE Castle ([id number])[facility] ([facility])[address] [place] [address] 80057 Nucleated RBC/100 WBC (Bld) [Ratio] 0.3 /100 WBCs High 0.0-0.0 [facility] Comment on above: Performed By: #### 5 8410-2 ####ANNETTE Castle (48599)[facility] ([facility])[address]232 [place] [address] Platelets (Bld) [#/Vol] 132 x10*3/uL Low 150-450 [facility] Comment on above: Performed By: #### 5 8410-2 ####ANNETTE Castle ([id number])[facility] ([facility])[address] [place] [address] 05328 RBC (Bld) [#/Vol] 2.73 x10*6/uL Low 4.50-5.90 [facility] Comment on above: Performed By: #### 5 8410-2 ####ANNETTE Castle (07491)[facility] ([facility])[address] [place] [address] 05852 WBC (Bld) [#/Vol] 10.9 x10*3/uL Normal 4.4-11.3 [facility] Comment on above: Performed By: #### 5 8410-2 ####ANNETTE Castle (85868)[facility] ([facility])[address] [place] [address] 88543 Erythrocyte distribution width (RBC) [Ratio] 18.4 % High 11.5-14.5 [facility] Comment on above: Performed By: #### 5 8410-2 ####ANNETTE Castle ([id number])[facility] ([facility])[address] [place] [address] 90072 Hematocrit (Bld) [Volume fraction] 23.6 % Low 41.0-52.0 [facility] Comment on above: Performed By: #### 5 8410-2 ####ANNETTE Castle ([id number])[facility] ([facility])[address] [place] [address] 79130 Hemoglobin (Bld) [Mass/Vol] 7.6 g/dL Low 13.5-17.5 [facility] Comment on above: Performed By: #### 5 8410-2 ####ANNETTE Castle (67943)[facility] ([facility])[address] [place] [address] 09381 MCH (RBC) [Entitic mass] 28.5 pg Normal 26.0-34.0 [facility] Comment on above: Performed By: #### 5 8410-2 ####ANNETTE Castle (53815)[facility] ([facility])[address]287 [place] [address] MCHC (RBC) [Mass/Vol] 32.2 g/dL Normal 32.0-36.0 [facility] Comment on above: Performed By: #### 5 8410-2 ####ANNETTE Castle (13206)[facility] ([facility])[address]91 [place] [address] MCV (RBC) [Entitic vol] 88 fL Normal 80-100 [facility] Comment on above: Performed By: #### 5 8410-2 ####ANNETTE Castle (77015)[facility] ([facility])[address] [place] [address] 18164 Nucleated RBC/100 WBC (Bld) [Ratio] 0.3 /100 WBCs High 0.0-0.0 [facility] Comment on above: Performed By: #### 5 8410-2 ####ANNETTE Castle (06215)[facility] ([facility])21114 [place] [address] Platelets (Bld) [#/Vol] 139 x10*3/uL Low 150-450 [facility] Comment on above: Performed By: #### 5 8410-2 ####ANNETTE Castle (96715)[facility] ([facility])[address]54 [place] [address] RBC (Bld) [#/Vol] 2.67 x10*6/uL Low 4.50-5.90 [facility] Comment on above: Performed By: #### 5 8410-2 ####ANNETTE Castle (59096)[facility] ([facility])[address]15 [place] [address] WBC (Bld) [#/Vol] 13.2 x10*3/uL High 4.4-11.3 [facility] Comment on above: Performed By: #### 5 8410-2 ####ANNETTE Castle (25397)[facility] ([facility])99164 [place] [address] Erythrocyte distribution width (RBC) [Ratio] 18.3 % High 11.5-14.5 [facility] Comment on above: Performed By: #### 5 8410-2 ####ANNETTE Castle (72453)[facility] ([facility])91996 [place] [address] Hematocrit (Bld) [Volume fraction] 25.2 % Low 41.0-52.0 [facility] Comment on above: Performed By: #### 5 8410-2 ####ANNETTE Castle (87129)[facility] ([facility])[address]65 [place] [address] Hemoglobin (Bld) [Mass/Vol] 8.2 g/dL Low 13.5-17.5 [facility] Comment on above: Performed By: #### 5 8410-2 ####ANNETTE Castle (51998)[facility] ([facility])80305 [place] [address] MCH (RBC) [Entitic mass] 29.3 pg Normal 26.0-34.0 [facility] Comment on above: Performed By: #### 5 8410-2 ####ANNETTE Castle (51106)[facility] ([facility])71096 [place] [address] MCHC (RBC) [Mass/Vol] 32.5 g/dL Normal 32.0-36.0 [facility] Comment on above: Performed By: #### 5 8410-2 ####ANNETTE Castle ([id number])[facility] ([facility])[address]82 [place] [address] MCV (RBC) [Entitic vol] 90 fL Normal 80-100 [facility] Comment on above: Performed By: #### 5 8410-2 ####ANNETTE Castle (23394)[facility] ([facility])[address]66 [place] [address] Nucleated RBC/100 WBC (Bld) [Ratio] 0.2 /100 WBCs High 0.0-0.0 [facility] Comment on above: Performed By: #### 5 8410-2 ####ANNETTE Castle (17244)[facility] ([facility])35096 [place] [address] Platelets (Bld) [#/Vol] 143 x10*3/uL Low 150-450 [facility] Comment on above: Performed By: #### 5 8410-2 ####ANNETTE Castle (48783)[facility] ([facility])24759 [place] [address] RBC (Bld) [#/Vol] 2.80 x10*6/uL Low 4.50-5.90 [facility] Comment on above: Performed By: #### 5 8410-2 ####ANNETTE Castle ([id number])[facility] ([facility])[address]201 [place] [address] WBC (Bld) [#/Vol] 14.3 x10*3/uL High 4.4-11.3 [facility] Comment on above: Performed By: #### 5 8410-2 ####ANNETTE Castle ([id number])[facility] ([facility])[address]01 [place] [address] Calcium.ionizedon 09-30-2024 Calcium.ionized (Bld) [Moles/Vol] 1.11 mmol/L Normal 1.1-1.33 [facility] Comment on above: Result Comment: The performance characteristics of ionized calcium testedin heparinized plasma or serum have been [facility] where [facility].Testing on heparinized plasma or serum is not approved bythe FDA; however, such approval is not necessary. Performed By: #### 1 994-3 ####ANNETTE Castle (22009)[facility] ([facility])[address]452 [place] [address] Gas and Carbon monoxide and Electrolytes panel (BldA)on 09-30-2024 Anion gap 4 (BldA) [Moles/Vol] 10 mmo/L Normal 10-25 [facility] Comment on above: Performed By: #### 9 3685-6 ####ANNETTE Castle ([id number])[facility] ([facility])[address]24 [place] [address] Base excess Calc (Bld) [Moles/Vol] 0.4 mmol/L Normal -2.0-3.0 [facility] Comment on above: Performed By: #### 9 3685-6 ####ANNETTE Castle (81279)[facility] ([facility])62692 [place] [address] Calcium.ionized (BldA) [Moles/Vol] 1.12 mmol/L Normal 1.10-1.33 [facility] Comment on above: Performed By: #### 9 3685-6 ####ANNETTE Castle (09083)[facility] ([facility])38715 [place] [address] Chloride (BldA) [Moles/Vol] 104 mmol/L Normal 98-107 [facility] Comment on above: Performed By: #### 9 3685-6 ####ANNETTE Castle (11889)[facility] ([facility])50187 [place] [address] CO2 (Bld) [Partial pressure] 35 mm Hg Low 38-42 [facility] Comment on above: Performed By: #### 9 3685-6 ####ANNETTE Castle (85814)[facility] ([facility])22282 [place] [address] Glucose [Mass/Vol] 146 mg/dL High 74-99 [facility] Comment on above: Performed By: #### 9 3685-6 ####ANNETTE Castle (12443)[facility] ([facility])[address]24 [place] [address] HCO3 (Bld) [Moles/Vol] 24.3 mmol/L Normal 22.0-26.0 [facility] Comment on above: Performed By: #### 9 3685-6 ####ANNETTE Castle ([id number])[facility] ([facility])[address] [place] [address] 67615 Hematocrit Est (Bld) [Volume fraction] 25.0 % Low 41.0-52.0 [facility] Comment on above: Performed By: #### 9 3685-6 ####ANNETTE Castle ([id number])[facility] ([facility])[address] [place] [address] 72775 Hemoglobin (Bld) [Mass/Vol] 8.3 g/dL Low 13.5-17.5 [facility] Comment on above: Performed By: #### 9 3685-6 ####ANNETTE Castle ([id number])[facility] ([facility])[address] [place] [address] 21931 Inhaled oxygen concentration 40 % Normal [facility] Comment on above: Performed By: #### 9 4905-6 ####ANNETTE Castle ([id number])[facility] ([facility])[address] [place] [address] 30806 Lactate (BldA) [Moles/Vol] 1.0 mmol/L Normal 0.4-2.0 [facility] Comment on above: Performed By: #### 9 3685-6 ####ANNETTE Castle ([id number])[facility] ([facility])[address] [place] [address] 10500 Oxygen (Bld) [Partial pressure] 74 mm Hg Low 85-95 [facility] Comment on above: Performed By: #### 9 3685-6 ####ANNETTE Castle ([id number])[facility] ([facility])[address] [place] [address] 21973 Oxyhemoglobin (BldA) [Mass fraction] 95.8 % Normal 94.0-98.0 [facility] Comment on above: Performed By: #### 9 9785-6 ####ANNETTE Castle ([id number])[facility] ([facility])12267 [place] [address] pH (Bld) 7.45 [pH] High 7.38-7.42 [facility] Comment on above: Performed By: #### 9 3685-6 ####ANNETTE Castle (40702)[facility] ([facility])43719 [place] [address] Potassium (BldA) [Moles/Vol] 3.8 mmol/L Normal 3.5-5.3 [facility] Comment on above: Performed By: #### 9 3685-6 ####ANNETTE Castle ([id number])[facility] ([facility])20709 [place] [address] Sodium (BldA) [Moles/Vol] 134 mmol/L Low 136-145 [facility] Comment on above: Performed By: #### 9 3685-6 ####ANNETTE Castle ([id number])[facility] ([facility])[address] [place] [address] 77506 Glucose Test strip manual (B ld) [Mass/Vol]on 09-30-2024 Glucose [Mass/Vol] 134 mg/dL High [address] [place] [address] Comment on above: Performed By: #### 2 341-6 ####ANNETTE Castle ([id number])[facility] ([facility])[address] [place] [address] Glucose [Mass/Vol] 140 mg/dL High [address] [place] [address] Comment on above: Performed By: #### 2 341-6 ####ANNETTE Castle ([id number])[facility] ([facility])[address] [place] [address] Glucose [Mass/Vol] 135 mg/dL High [address] [place] [address] Comment on above: Performed By: #### 2 341-6 ####ANNETTE Castle ([id number])[facility] ([facility])[address] [place] [address] Glucose [Mass/Vol] 133 mg/dL High 74-99 [facility] Comment on above: Performed By: #### 2 341-6 ####ANNETTE Castle ([id number])[facility] ([facility])[id number] [place] [address] Glucose [Mass/Vol] 146 mg/dL High 74-99 [facility] Comment on above: Performed By: #### 2 341-6 ####ANNETTE Castle ([id number])[facility] ([facility])[id number] [place] [id number] HbA1c (Bld) [Mass fraction]o n 09-30-2024 Average glucose Estimated from glycated hemoglobin (Bld) [Mass/Vol] 100 mg/dL Normal Not Established [facility] Comment on above: Order Comment: Diagn osis of Ifomxhsw-VtifoiJvy-Smsmfunl: < or = 5.6%Increased risk for developing diabetes: 5.7-6.4%Diagnostic of diabetes: > or = 6.5% Performed By: #### 4 548-4 ####ANNETTE Castle ([id number])[facility] ([facility])[address] [place] [address] 83736 Hemoglobin A1c/Hemoglobin.to tiki 09-30-2024 HbA1c (Bld) [Mass fraction] 5.1 % Normal See comment [facility] Comment on above: Order Comment: Diagn osis of Stiiyojm-GdjrhmWnq-Nyovecsh: < or = 5.6%Increased risk for developing diabetes: 5.7-6.4%Diagnostic of diabetes: > or = 6.5% Performed By: #### 4 548-4 ####ANNETTE Castle ([id number])[facility] ([facility])[address] [place] [address] 59384 Magnesiumon 09-30-2024 Magnesium [Mass/Vol] 2.20 mg/dL Normal 1.60-2.40 [facility] Comment on above: Performed By: #### 1 9123-9 ####ANNETTE Castle ([id number])[facility] ([facility])[address] [place] [address] PT and aPTT panel Coag (PPP) on 09-30-2024 aPTT Coag (PPP) [Time] 25 s Low 26-36 [facility] Comment on above: Order Comment: The A PTT is no longer used for monitoring Unfractionated Heparin Therapy. For monitoring Heparin Therapy, use the Heparin Assay. Performed By: #### 3 4529-8 ####ANNETTE Castle ([id number])[facility] ([facility])[address] [place] [address] 17498 INR Coag (PPP) [Relative time] 1.3 High 0.9-1.1 [facility] Comment on above: Order Comment: The A PTT is no longer used for monitoring Unfractionated Heparin Therapy. For monitoring Heparin Therapy, use the Heparin Assay. Performed By: #### 3 4529-8 ####ANNETTE Castle ([id number])[facility] ([facility])[address] [place] [address] 53891 PT Coag (PPP) [Time] 14.0 s High 9.8-12.4 [facility] Comment on above: Order Comment: The A PTT is no longer used for monitoring Unfractionated Heparin Therapy. For monitoring Heparin Therapy, use the Heparin Assay. Performed By: #### 3 4529-8 ####ANNETTE Castle ([id number])[facility] ([facility])[address] [place] [address], [place] [address] aPTT Coag (PPP) [Time] 25 s Low 26-36 [facility] Comment on above: Order Comment: The A PTT is no longer used for monitoring Unfractionated Heparin Therapy. For monitoring Heparin Therapy, use the Heparin Assay. Performed By: #### 3 4529-8 ####ANNETTE RAMSEYTZVISHNU Castle ([id number])[facility] ([facility])[address] [place] [address] 88573 INR Coag (PPP) [Relative time] 1.3 High 0.9-1.1 [facility] Comment on above: Order Comment: The A PTT is no longer used for monitoring Unfractionated Heparin Therapy. For monitoring Heparin Therapy, use the Heparin Assay. Performed By: #### 3 4529-8 ####ANNETTE Castle ([id number])[facility] ([facility])[address] [place] [address] PT Coag (PPP) [Time] 14.6 s High 9.8-12.4 [facility] Comment on above: Order Comment: The A PTT is no longer used for monitoring Unfractionated Heparin Therapy. For monitoring Heparin Therapy, use the Heparin Assay. Performed By: #### 3 4529-8 ####ANNETTE Castle ([id number])[facility] ([facility])[address] [place] [address] Renal function 2000 panelon 09-30-2024 Albumin BCP dye [Mass/Vol] 3.8 g/dL Normal 3.4-5.0 [facility] Comment on above: Performed By: #### 2 4362-6 ####ANNETTE Castle ([id number])[facility] ([facility])[address] [place] [address] Anion gap [Moles/Vol] 13 mmol/L Normal 10-20 [facility] Comment on above: Performed By: #### 2 4362-6 ####ANNETTE Castle ([id number])[facility] ([facility])[address] [place] [address] Calcium [Mass/Vol] 8.5 mg/dL Low 8.6-10.6 [facility] Comment on above: Performed By: #### 2 4362-6 ####ANNETTE Castle ([id number])[facility] ([facility])[address] [place] [address] Chloride [Moles/Vol] 103 mmol/L Normal 98-107 [facility] Comment on above: Performed By: #### 2 4362-6 ####ANNETTE Castle ([id number])[facility] ([facility])[address] [place] [address] CO2 [Moles/Vol] 25 mmol/L Normal 21-32 [facility] Comment on above: Performed By: #### 2 4362-6 ####ANNETTE Castle ([id number])[facility] ([facility])[address] [place] [address] Creatinine [Mass/Vol] 0.89 mg/dL Normal 0.50-1.30 [facility] Comment on above: Performed By: #### 2 4362-6 ####ANNETTE Castle ([id number])[facility] ([facility])[address] [place] [address] Glomerular filtration rate 89 mL/min/1.73m*2 Normal >60 [facility] Comment on above: Result Comment: Calc ulations of estimated GFR are performed using the 2020 CKD-EPI Study Refit equation without the race variable for the IDMS-Traceable creatinine methods.https://jasn.asnjournals.org/content// ASN.0233599347 Performed By: #### 2 4362-6 ####ANNETTE Castle ([id number])[facility] ([facility])[address] [place] [address] Glucose [Mass/Vol] 147 mg/dL High 74-99 [facility] Comment on above: Performed By: #### 2 4362-6 ####ANNETTE Castle ([id number])[facility] ([facility])[address] [place] [address] Phosphate [Mass/Vol] 2.0 mg/dL Low 2.5-4.9 [facility] Comment on above: Performed By: #### 2 4362-6 ####ANNETTE Castle ([id number])[facility] ([facility])[address] [place] [address] Potassium [Moles/Vol] 3.7 mmol/L Normal 3.5-5.3 [facility] Comment on above: Performed By: #### 2 4362-6 ####ANNETTE GARCIA L ([id number])[facility] ([facility])[address]137 [place] [address] Sodium [Moles/Vol] 137 mmol/L Normal 136-145 [facility] Comment on above: Performed By: #### 2 4362-6 ####ANNETTE Castle ([id number])[facility] ([facility])[address]25 [place] [address] Urea nitrogen [Mass/Vol] 29 mg/dL High 6-23 [facility] Comment on above: Performed By: #### 2 4362-6 ####ANNETTE Castle ([id number])[facility] ([facility])[address] [place] [address] Staphylococcus aureus.methic illin resistant isolateon 09-30-2024 MRSA isol Org specific cx Ql (Nose) [facility] Comment on above: Performed By: #### 5 2969-3 ####ANNETTE Castle ([id number])[facility] ([facility])[address] [place] [address] XR ABDOMEN 1 VIEWon 10-01-19 XR ABDOMEN 1 VIEW Normal [facility] Comment on above: Order Comment: RN to release order via task on Brain when patient is ready for x-ray confirmation of NG tube placement. XR CHEST 1 VIEWon 09-30-2024 XR CHEST 1 VIEW Normal [facility] Blood type and Indirect anti body screen panel (Bld)on 09-29-2024 ABO group Nom (Bld) A Normal [facility] Comment on above: Performed By: #### 3 4532-2 ####ANNETTE Castle ([id number])[facility] ([facility])[address] [place] [address] Blood group antibody screen Ql Negative [facility] Comment on above: Performed By: #### 3 4532-2 ####ANNETTE Castle ([id number])[facility] [place] [address] D Ag Ql (Bld) Positive [facility] Comment on above: Performed By: #### 3 4532-2 ####ANNETTE Castle ([id number])[facility] ([facility] [place] [address] CBC panel Auto (Bld)on 09-29 Erythrocyte distribution width (RBC) [Ratio] 18.1 % High 11.5-14.5 [facility] Comment on above: Performed By: #### 5 8410-2 ####ANNETTE Castle ([id number])[facility] ([facility])[address]252 [place] [address] Hematocrit (Bld) [Volume fraction] 24.9 % Low 41.0-52.0 [facility] Comment on above: Performed By: #### 5 8410-2 ####ANNETTE Castle ([id number])[facility] ([facility])[address] [place] [address] 42124 Hemoglobin (Bld) [Mass/Vol] 8.2 g/dL Low 13.5-17.5 [facility] Comment on above: Performed By: #### 5 8410-2 ####ANNETTE Castle ([id number])[facility] ([facility])[address]105 [place] [address] MCH (RBC) [Entitic mass] 28.8 pg Normal 26.0-34.0 [facility] Comment on above: Performed By: #### 5 8410-2 ####ANNETTE Castle ([id number])[facility] ([facility])[address] [place] [address] MCHC (RBC) [Mass/Vol] 32.9 g/dL Normal 32.0-36.0 [facility] Comment on above: Performed By: #### 5 8410-2 ####ANNTETE Castle ([id number])[facility] ([facility])[address]33 [place] [address] MCV (RBC) [Entitic vol] 87 fL Normal 80-100 U [facility] Comment on above: Performed By: #### 5 8410-2 ####ANNETTE Castle ([id number])[facility] ([facility])[address]89 [place] [address] Nucleated RBC/100 WBC (Bld) [Ratio] 0.2 /100 WBCs High 0.0-0.0 [facility] Comment on above: Performed By: #### 5 8410-2 ####ANNETTE Castle ([id number])[facility] ([facility])[address] [place] [address] 14980 Platelets (Bld) [#/Vol] 152 x10*3/uL Normal 150-450 [facility] Comment on above: Performed By: #### 5 8410-2 ####ANNETTE Castle ([id number])[facility] ([facility])[address] [place] [address] 48545 RBC (Bld) [#/Vol] 2.85 x10*6/uL Low 4.50-5.90 [facility] Comment on above: Performed By: #### 5 8410-2 ####ANNETTE Castle ([id number])[facility] ([facility])[address] [place] [address] 61593 WBC (Bld) [#/Vol] 12.6 x10*3/uL High 4.4-11.3 [facility] Comment on above: Performed By: #### 5 8410-2 ####ANNETTE Castle ([id number])[facility] ([facility])[address] [place] [address] 78785 Erythrocyte distribution width (RBC) [Ratio] 17.3 % High 11.5-14.5 [facility] Comment on above: Performed By: #### 5 8410-2 ####ANNETTE Castle ([id number])[facility] ([facility])[address] [place] [address] 27234 Hematocrit (Bld) [Volume fraction] 25.8 % Low 41.0-52.0 [facility] Comment on above: Performed By: #### 5 8410-2 ####ANNETTE Castle ([id number])[facility] ([facility])[address] [place] [address] 93817 Hemoglobin (Bld) [Mass/Vol] 8.4 g/dL Low 13.5-17.5 [facility] Comment on above: Performed By: #### 5 8410-2 ####ANNETTE Castle ([id number])[facility] ([facility])[address]555 [place] [address] MCH (RBC) [Entitic mass] 28.7 pg Normal 26.0-34.0 [facility] Comment on above: Performed By: #### 5 8410-2 ####ANNETTE Castle ([id number])[facility] ([facility])[address] [place] [address] MCHC (RBC) [Mass/Vol] 32.6 g/dL Normal 32.0-36.0 [facility] Comment on above: Performed By: #### 5 8410-2 ####ANNETTE Castle ([id number])[facility] ([facility])[address] [place] [address] 78229 MCV (RBC) [Entitic vol] 88 fL Normal 80-100 U [facility] Comment on above: Performed By: #### 5 8410-2 ####ANNETTE Castle ([id number])[facility] ([facility])[address] [place] [address] 17175 Nucleated RBC/100 WBC (Bld) [Ratio] 0.1 /100 WBCs High 0.0-0.0 [facility] Comment on above: Performed By: #### 5 8410-2 ####ANNETTE Castle ([id number])[facility] ([facility])[address]64 [place] [address] Platelets (Bld) [#/Vol] 140 x10*3/uL Low 150-450 [facility] Comment on above: Performed By: #### 5 8410-2 ####ANNETTE Castle ([id number])[facility] ([facility])[address]697 [place] [address] RBC (Bld) [#/Vol] 2.93 x10*6/uL Low 4.50-5.90 [facility] Comment on above: Performed By: #### 5 8410-2 ####ANNETTE Castle ([id number])[facility] ([facility])[address]863 [place] [address] WBC (Bld) [#/Vol] 15.4 x10*3/uL High 4.4-11.3 [facility] Comment on above: Performed By: #### 5 8410-2 ####ANNETTE Castle ([id number])[facility] ([facility])[address]121 [place] [address] Erythrocyte distribution width (RBC) [Ratio] 15.1 % High 11.5-14.5 [facility] Comment on above: Performed By: #### 5 8410-2 ####ANNETTE Castle ([id number])[facility] ([facility])[address]150 [place] [address] Hematocrit (Bld) [Volume fraction] 23.9 % Low 41.0-52.0 [facility] Comment on above: Performed By: #### 5 8410-2 ####ANNETTE Castle ([id number])[facility] ([facility])[address]97 [place] [address] Hemoglobin (Bld) [Mass/Vol] 7.6 g/dL Low 13.5-17.5 [facility] Comment on above: Performed By: #### 5 8410-2 ####ANNETTE Castle ([id number])[facility] ([facility])[address]193 [place] [address] MCH (RBC) [Entitic mass] 29.7 pg Normal 26.0-34.0 [facility] Comment on above: Performed By: #### 5 8410-2 ####ANNETTE Castle ([id number])[facility] ([facility])[address]82 [place] [address] MCHC (RBC) [Mass/Vol] 31.8 g/dL Low 32.0-36.0 [facility] Comment on above: Performed By: #### 5 8410-2 ####ANNETTE Castle ([id number])[facility] ([facility])[address]409 [place] [address] MCV (RBC) [Entitic vol] 93 fL Normal 80-100 U [facility] Comment on above: Performed By: #### 5 8410-2 ####ANNETTE Castle ([id number])[facility] ([facility])[address] [place] [address] Nucleated RBC/100 WBC (Bld) [Ratio] 0.1 /100 WBCs High 0.0-0.0 [facility] Comment on above: Performed By: #### 5 8410-2 ####ANNETTE Castle ([id number])[facility] ([facility])[address]39 [place] [address] Platelets (Bld) [#/Vol] 162 x10*3/uL Normal 150-450 [facility] Comment on above: Performed By: #### 5 8410-2 ####ANNETTE Castle ([id number])[facility] ([facility])[address]82 [place] [address] RBC (Bld) [#/Vol] 2.56 x10*6/uL Low 4.50-5.90 [facility] Comment on above: Performed By: #### 5 8410-2 ####ANNETTE Castle ([id number])[facility] ([facility])[address]172 [place] [address] WBC (Bld) [#/Vol] 21.4 x10*3/uL High 4.4-11.3 [facility] Comment on above: Performed By: #### 5 8410-2 ####ANNETTE Castle ([id number])[facility] ([facility])[address]251 [place] [address] Erythrocyte distribution width (RBC) [Ratio] 14.7 % High 11.5-14.5 [facility] Comment on above: Performed By: #### 5 8410-2 ####ANNETTE Castle ([id number])[facility] ([facility])[address]04 [place] [address] Hematocrit (Bld) [Volume fraction] 26.3 % Low 41.0-52.0 [facility] Comment on above: Performed By: #### 5 8410-2 ####ANNETTE Castle ([id number])[facility] ([facility])[address] [place] [address] 10753 Hemoglobin (Bld) [Mass/Vol] 8.5 g/dL Low 13.5-17.5 [facility] Comment on above: Performed By: #### 5 8410-2 ####ANNETTE Castle ([id number])[facility] ([facility])[address] [place] [address] 14273 MCH (RBC) [Entitic mass] 29.8 pg Normal 26.0-34.0 [facility] Comment on above: Performed By: #### 5 8410-2 ####ANNETTE Castle ([id number])[facility] ([facility])[address] [place] [address] 12296 MCHC (RBC) [Mass/Vol] 32.3 g/dL Normal 32.0-36.0 [facility] Comment on above: Performed By: #### 5 8410-2 ####ANNETTE Castle ([id number])[facility] ([facility])[address] [place] [address] MCV (RBC) [Entitic vol] 92 fL Normal 80-100 U [facility] Comment on above: Performed By: #### 5 8410-2 ####ANNETTE Castle ([id number])[facility] ([facility])[address] [place] [address] 60297 Nucleated RBC/100 WBC (Bld) [Ratio] 0.0 /100 WBCs Normal 0.0-0.0 [facility] Comment on above: Performed By: #### 5 8410-2 ####ANNETTE Castle ([id number])[facility] ([facility])[address]242 [place] [address] Platelets (Bld) [#/Vol] 156 x10*3/uL Normal 150-450 [facility] Comment on above: Performed By: #### 5 8410-2 ####ANNETTE Castle ([id number])[facility] ([facility])[address]76 [place] [address] RBC (Bld) [#/Vol] 2.85 x10*6/uL Low 4.50-5.90 [facility] Comment on above: Performed By: #### 5 8410-2 ####ANNETTE Castle ([id number])[facility] ([facility])[address]19 [place] [address] WBC (Bld) [#/Vol] 12.1 x10*3/uL High 4.4-11.3 [facility] Comment on above: Performed By: #### 5 8410-2 ####ANNETTE Castle ([id number])[facility] ([facility])[address] [place] [address] CT ANGIO CHEST ABDOMEN PELVI Son 09-29-2024 CT ANGIO CHEST ABDOMEN PELVIS Normal [facility] Calcium.ionizedon 09-29-2024 Calcium.ionized (Bld) [Moles/Vol] 1.07 mmol/L Low 1.1-1.33 [facility] Comment on above: Result Comment: The performance characteristics of ionized calcium testedin heparinized plasma or serum have [facility].Testing on heparinized plasma or serum is not approved bythe FDA; however, such approval is not necessary. Performed By: #### 1 994-3 ####ANNETTE Castle ([id number])[facility] ([facility])[address] [place] [address] Calcium.ionized (Bld) [Moles/Vol] 1.09 mmol/L Low 1.1-1.33 [facility] Comment on above: Result Comment: The performance characteristics of ionized calcium testedin heparinized plasma or serum have been validated [facility].Testing on heparinized plasma or serum is not [facility]; however, such approval is not necessary. Performed By: #### 1 994-3 ####ANNETTE Castle ([id number])[facility] ([facility])[address] [place] [address] 89068 Calcium.ionized (Bld) [Moles/Vol] 1.14 mmol/L Normal 1.1-1.33 [facility] Comment on above: Result Comment: The performance characteristics of ionized calcium testedin heparinized plasma or serum have been validated [facility] is performed.Testing on heparinized plasma or serum is not [facility] FDA; however, such approval is not necessary. Performed By: #### 1 994-3 ####ANNETTE Castle ([id number])[facility] ([facility])[address] [place] [address]376 Fibrinogenon 09-29-2024 Fibrinogen Coag (PPP) [Mass/Vol] 336 mg/dL Normal 200-400 [facility] Comment on above: Performed By: #### 3 255-7 ####ANNETTE Castle ([id number])[facility] ([facility])[address] [place] [address] 62685 Gas and Carbon monoxide and Electrolytes panel (BldA)on 09-29-2024 Anion gap 4 (BldA) [Moles/Vol] 12 mmo/L Normal 10-25 [facility] Comment on above: Performed By: #### 9 3685-6 ####ANNETTE Castle ([id number])[facility] ([facility])[address] [place] [address]9317 Base excess Calc (Bld) [Moles/Vol] -2.0000 mmol/L Normal -2.0-3.0 [facility] Comment on above: Performed By: #### 9 3685-6 ####ANNETTE Castle ([id number])[facility] ([facility])[address] [place] [address] 74284 Calcium.ionized (BldA) [Moles/Vol] 1.07 mmol/L Low 1.10-1.33 [facility] Comment on above: Performed By: #### 9 3685-6 ####ANNETTE Castle ([id number])[facility] ([facility])[address]42 [place] [address] Chloride (BldA) [Moles/Vol] 106 mmol/L Normal 98-107 [facility] Comment on above: Performed By: #### 9 3685-6 ####ANNETTE Castle ([id number])[facility] ([facility])[address]0 [place] [address] CO2 (Bld) [Partial pressure] 34 mm Hg Low 38-42 [facility] Comment on above: Performed By: #### 9 3685-6 ####ANNETTE Castle ([id number])[facility] ([facility])[address] [place] [address] 09081 Glucose [Mass/Vol] 169 mg/dL High 74-99 [facility] Comment on above: Performed By: #### 9 3685-6 ####ANNETTE Castle ([id number])[facility] ([facility])[address]49 [place] [address] HCO3 (Bld) [Moles/Vol] 22.1 mmol/L Normal 22.0-26.0 [facility] Comment on above: Performed By: #### 9 3685-6 ####ANNETTE Castle ([id number])[facility] ([facility])[address] [place] [address] Hematocrit Est (Bld) [Volume fraction] 26.0 % Low 41.0-52.0 [facility] Comment on above: Performed By: #### 9 3685-6 ####ANNETTE Castle ([id number])[facility] ([facility])[address] [place] [address] Hemoglobin (Bld) [Mass/Vol] 8.5 g/dL Low 13.5-17.5 [facility] Comment on above: Performed By: #### 9 3685-6 ####ANNETTE Castle ([id number])[facility] ([facility])[address] [place] [address] Inhaled oxygen concentration 50 % Normal [facility] Comment on above: Performed By: #### 9 3685-6 ####ANNETTE Castle ([id number])[facility] ([facility])[address] [place] [address] Lactate (BldA) [Moles/Vol] 1.2 mmol/L Normal 0.4-2.0 [facility] Comment on above: Performed By: #### 9 3685-6 ####ANNETTE Castle ([id number])[facility] ([facility])[id number] [place] [address] 53645 Oxygen (Bld) [Partial pressure] 96 mm Hg High 85-95 [facility] Comment on above: Performed By: #### 9 3685-6 ####ANNETTE Castle ([id number])[facility] ([facility])[address] [place] [address] 53375 Oxyhemoglobin (BldA) [Mass fraction] 97.2 % Normal 94.0-98.0 [facility] Comment on above: Performed By: #### 9 3685-6 ####ANNETTE Castle ([id number])[facility] ([facility])[address] [place] [address] 63899 pH (Bld) 7.42 [pH] Normal 7.38-7.42 [facility] Comment on above: Performed By: #### 9 7585-6 ####ANNETTE Castle ([id number])[facility] ([facility])[address] [place] [address] 30171 Potassium (BldA) [Moles/Vol] 3.8 mmol/L Normal 3.5-5.3 [facility] Comment on above: Performed By: #### 9 3685-6 ####ANNETTE Castle ([id number])[facility] ([facility])[address] [place] [address] Sodium (BldA) [Moles/Vol] 136 mmol/L Normal 136-145 [facility] Comment on above: Performed By: #### 9 3685-6 ####ANNETTE Castle ([id number])[facility] ([facility])[address] [place] [address] 01396 Anion gap 4 (BldA) [Moles/Vol] 11 mmo/L Normal 10-25 [facility] Comment on above: Performed By: #### 9 3685-6 ####ANNETTE Castle ([id number])[facility] ([facility])[address] [place] [address] 78947 Base excess Calc (Bld) [Moles/Vol] -1.6000 mmol/L Normal -2.0-3.0 [facility] Comment on above: Performed By: #### 9 3685-6 ####ANNETTE Castle ([id number])[facility] ([facility])[address] [place] [address] 68119 Calcium.ionized (BldA) [Moles/Vol] 1.06 mmol/L Low 1.10-1.33 [facility] Comment on above: Performed By: #### 9 3685-6 ####ANNETTE Castle ([id number])[facility] ([facility])[address] [place] [address] 60180 Chloride (BldA) [Moles/Vol] 105 mmol/L Normal 98-107 [facility] Comment on above: Performed By: #### 9 3685-6 ####ANNETTE Castle ([id number])[facility] ([facility])[address] [place] [address] 65353 CO2 (Bld) [Partial pressure] 36 mm Hg Low 38-42 [facility] Comment on above: Performed By: #### 9 3685-6 ####ANNETTE Castle ([id number])[facility] ([facility])[address] [place] [address] 57698 Glucose [Mass/Vol] 169 mg/dL High 74-99 [facility] Comment on above: Performed By: #### 9 3685-6 ####ANNETTE Castle ([id number])[facility] ([facility])[address] [place] [address] HCO3 (Bld) [Moles/Vol] 22.8 mmol/L Normal 22.0-26.0 [facility] Comment on above: Performed By: #### 9 3685-6 ####ANNETTE Castle ([id number])[facility] ([facility])[address] [place] [address] 32259 Hematocrit Est (Bld) [Volume fraction] 25.0 % Low 41.0-52.0 [facility] Comment on above: Performed By: #### 9 3685-6 ####ANNETTE Castle ([id number])[facility] ([facility])[address] [place] [address] 44778 Hemoglobin (Bld) [Mass/Vol] 8.4 g/dL Low 13.5-17.5 [facility] Comment on above: Performed By: #### 9 3685-6 ####ANNETTE Castle ([id number])[facility] ([facility])[address] [place] [address] 79816 Inhaled oxygen concentration 60 % Normal [facility] Comment on above: Performed By: #### 9 3685-6 ####ANNETTE Castle ([id number])[facility] ([facility])[address] [place] [address] 74035 Lactate (BldA) [Moles/Vol] 1.1 mmol/L Normal 0.4-2.0 [facility] Comment on above: Performed By: #### 9 3685-6 ####ANNETTE Castle ([id number])[facility] ([facility])[address] [place] [address] 95634 Oxygen (Bld) [Partial pressure] 163 mm Hg High 85-95 [facility] Comment on above: Performed By: #### 9 3685-6 ####ANNETTE Castle ([id number])[facility] ([facility])[address] [place] [address] 99849 Oxyhemoglobin (BldA) [Mass fraction] 97.7 % Normal 94.0-98.0 [facility] Comment on above: Performed By: #### 9 3685-6 ####ANNETTE Castle ([id number])[facility] ([facility])[address] [place] [address] pH (Bld) 7.41 [pH] Normal 7.38-7.42 [facility] Comment on above: Performed By: #### 9 3685-6 ####ANNETTE Castle ([id number])[facility] ([facility])[address] [place] [address] 61428 Potassium (BldA) [Moles/Vol] 4.0 mmol/L Normal 3.5-5.3 [facility] Comment on above: Performed By: #### 9 3685-6 ####ANNETTE Castle ([id number])[facility] ([facility])[address] [place] [address] 43625 Sodium (BldA) [Moles/Vol] 135 mmol/L Low 136-145 [facility] Comment on above: Performed By: #### 9 3685-6 ####ANNETTE Castle ([id number])[facility] ([facility])[address] [place] [address] 18201 Anion gap 4 (BldA) [Moles/Vol] 13 mmo/L Normal 10-25 [facility] Comment on above: Performed By: #### 9 3685-6 ####ANNETTE Castle ([id number])[facility] ([facility])[address] [place] [address] 64013 Base excess Calc (Bld) [Moles/Vol] -2.5000 mmol/L Low -2.0-3.0 [facility] Comment on above: Performed By: #### 9 3685-6 ####ANNETTE Castle ([id number])[facility] ([facility])[address] [place] [address] 46864 Calcium.ionized (BldA) [Moles/Vol] 1.06 mmol/L Low 1.10-1.33 [facility] Comment on above: Performed By: #### 9 3685-6 ####ANNETTE Castle ([id number])[facility] ([facility])[address] [place] [address] Chloride (BldA) [Moles/Vol] 104 mmol/L Normal 98-107 [facility] Comment on above: Performed By: #### 9 3685-6 ####ANNETTE Castle ([id number])[facility] ([facility])[address] [place] [address] CO2 (Bld) [Partial pressure] 39 mm Hg Normal 38-42 [facility] Comment on above: Performed By: #### 9 3685-6 ####ANNETTE Castle ([id number])[facility] ([facility])[address] [place] [address] Glucose [Mass/Vol] 205 mg/dL High 74-99 [facility] Comment on above: Performed By: #### 9 3685-6 ####ANNETTE Castle ([id number])[facility] ([facility])[address] [place] [address] HCO3 (Bld) [Moles/Vol] 22.5 mmol/L Normal 22.0-26.0 [facility] Comment on above: Performed By: #### 9 3685-6 ####ANNETTE Castle ([id number])[facility] ([facility])[address] [place] [address] Hematocrit Est (Bld) [Volume fraction] 27.0 % Low 41.0-52.0 [facility] Comment on above: Performed By: #### 9 6415-6 ####ANNETTE Castle ([id number])[facility] ([facility])[address] [place] [address] Hemoglobin (Bld) [Mass/Vol] 9.1 g/dL Low 13.5-17.5 [facility] Comment on above: Performed By: #### 9 5325-6 ####ANNETET Castle ([id number])[facility] ([facility])[address] [place] [address] Inhaled oxygen concentration 50 % Normal [facility] Comment on above: Performed By: #### 9 8225-6 ####ANNETTE Castle ([id number])[facility] ([facility])[address] [place] [address] Lactate (BldA) [Moles/Vol] 1.3 mmol/L Normal 0.4-2.0 [facility] Comment on above: Performed By: #### 9 3685-6 ####ANNETTE Castle ([id number])[facility] ([facility])[address] [place] [address] Oxygen (Bld) [Partial pressure] 154 mm Hg High 85-95 [facility] Comment on above: Performed By: #### 9 7475-6 ####ANNETTE Castle ([id number])[facility] ([facility])[address] [place] [address] 70454 Oxyhemoglobin (BldA) [Mass fraction] 97.2 % Normal 94.0-98.0 [facility] Comment on above: Performed By: #### 9 8485-6 ####ANNETTE Castle ([id number])[facility] ([facility])[address] [place] [address] pH (Bld) 7.37 [pH] Low 7.38-7.42 [facility] Comment on above: Performed By: #### 9 1005-6 ####ANNETTE Castle ([id number])[facility] ([facility])[address] [place] [address] Potassium (BldA) [Moles/Vol] 4.1 mmol/L Normal 3.5-5.3 [facility] Comment on above: Performed By: #### 9 8365-6 ####ANNETTE Castle ([id number])[facility] ([facility])[address] [place] [address] Sodium (BldA) [Moles/Vol] 135 mmol/L Low 136-145 [facility] Comment on above: Performed By: #### 9 3685-6 ####ANNETTE Castle ([id number])[facility] ([facility])[address] [place] [address] 56429 Anion gap 4 (BldA) [Moles/Vol] 13 mmo/L Normal 10-25 [facility] Comment on above: Performed By: #### 9 3685-6 ####ANNETTE Castle ([id number])[facility] ([facility])[address] [place] [address] 06560 Base excess Calc (Bld) [Moles/Vol] -4.3000 mmol/L Low -2.0-3.0 [facility] Comment on above: Performed By: #### 9 3685-6 ####ANNETTE Castle ([id number])[facility] ([facility])[address] [place] [address] 98190 Calcium.ionized (BldA) [Moles/Vol] 1.10 mmol/L Normal 1.10-1.33 [facility] Comment on above: Performed By: #### 9 3685-6 ####ANNETTE Castle ([id number])[facility] ([facility])[address] [place] [address] 33297 Chloride (BldA) [Moles/Vol] 105 mmol/L Normal 98-107 [facility] Comment on above: Performed By: #### 9 3685-6 ####ANNETTE Castle ([id number])[facility] ([facility])[address] [place] [address] 59749 CO2 (Bld) [Partial pressure] 49 mm Hg High 38-42 [facility] Comment on above: Performed By: #### 9 3685-6 ####ANNETTE Castle ([id number])[facility] ([facility])[address] [place] [address] 62457 Glucose [Mass/Vol] 204 mg/dL High 74-99 [facility] Comment on above: Performed By: #### 9 3685-6 ####ANNETTE Castle ([id number])[facility] ([facility])[address] [place] [address] HCO3 (Bld) [Moles/Vol] 22.5 mmol/L Normal 22.0-26.0 [facility] Comment on above: Performed By: #### 9 3685-6 ####ANNETTE Castle ([id number])[facility] ([facility])[address] [place] [address] 61353 Hematocrit Est (Bld) [Volume fraction] 25.0 % Low 41.0-52.0 [facility] Comment on above: Performed By: #### 9 3685-6 ####ANNETTE Castle ([id number])[facility] ([facility])[address] [place] [address] 53599 Hemoglobin (Bld) [Mass/Vol] 8.2 g/dL Low 13.5-17.5 [facility] Comment on above: Performed By: #### 9 3685-6 ####ANNETTE Castle ([id number])[facility] ([facility])[address] [place] [address] 59006 Inhaled oxygen concentration 50 % Normal [facility] Comment on above: Performed By: #### 9 3685-6 ####ANNETTE Castle ([id number])[facility] ([facility])[address] [place] [address] 72013 Lactate (BldA) [Moles/Vol] 2.2 mmol/L High 0.4-2.0 [facility] Comment on above: Performed By: #### 9 3685-6 ####ANNETTE Castle ([id number])[facility] ([facility])[address] [place] [address] 19870 Oxygen (Bld) [Partial pressure] 73 mm Hg Low 85-95 [facility] Comment on above: Performed By: #### 9 3685-6 ####ANNETTE Castle ([id number])[facility] ([facility])[address] [place] [address] 77425 Oxyhemoglobin (BldA) [Mass fraction] 94.3 % Normal 94.0-98.0 [facility] Comment on above: Performed By: #### 9 3685-6 ####ANNETTE Castle ([id number])[facility] ([facility])[address] [place] [address] 20539 pH (Bld) 7.27 [pH] Low 7.38-7.42 [facility] Comment on above: Performed By: #### 9 3685-6 ####ANNETTE Castle ([id number])[facility] ([facility])[address] [place] [address] 51063 Potassium (BldA) [Moles/Vol] 4.9 mmol/L Normal 3.5-5.3 [facility] Comment on above: Performed By: #### 9 3685-6 ####ANNETTE Castle ([id number])[facility] ([facility])[address] [place] [address] 38288 Sodium (BldA) [Moles/Vol] 136 mmol/L Normal 136-145 [facility] Comment on above: Performed By: #### 9 3685-6 ####ANNETTE Castle ([id number])[facility] ([facility])[address] [place] [address] 21601 Anion gap 4 (BldA) [Moles/Vol] 17 mmo/L Normal 10-25 [facility] Comment on above: Performed By: #### 9 3685-6 ####ANNETTE Castle ([id number])[facility] ([facility])[address] [place] [address] 57094 Base excess Calc (Bld) [Moles/Vol] -10.71269 mmol/L Low -2.0-3.0 [facility] Comment on above: Performed By: #### 9 3685-6 ####ANNETTE Castle ([id number])[facility] ([facility])[address] [place] [address] 59927 Calcium.ionized (BldA) [Moles/Vol] 1.17 mmol/L Normal 1.10-1.33 [facility] Comment on above: Performed By: #### 9 3685-6 ####ANNETTE Castle ([id number])[facility] ([facility])[address] [place] [address] Chloride (BldA) [Moles/Vol] 106 mmol/L Normal 98-107 [facility] Comment on above: Performed By: #### 9 3685-6 ####ANNETTE Castle ([id number])[facility] ([facility])[address]54 [place] [address] CO2 (Bld) [Partial pressure] 56 mm Hg High 38-42 [facility] Comment on above: Performed By: #### 9 3685-6 ####ANNETTE Castle ([id number])[facility] ([facility])[address] [place] [address] 02558 Glucose [Mass/Vol] 189 mg/dL High 74-99 [facility] Comment on above: Performed By: #### 9 3685-6 ####ANNETTE Castle ([id number])[facility] ([facility])[address]331 [place] [address] HCO3 (Bld) [Moles/Vol] 18.6 mmol/L Low 22.0-26.0 [facility] Comment on above: Performed By: #### 9 3685-6 ####ANNETTE Castle ([id number])[facility] ([facility])[address]77 [place] [address] Hematocrit Est (Bld) [Volume fraction] 26.0 % Low 41.0-52.0 [facility] Comment on above: Performed By: #### 9 3685-6 ####ANNETTE Castle ([id number])[facility] ([facility])[address] [place] [address] 92658 Hemoglobin (Bld) [Mass/Vol] 8.6 g/dL Low 13.5-17.5 [facility] Comment on above: Performed By: #### 9 3685-6 ####ANNETTE Castle ([id number])[facility] ([facility])[address]991 [place] [address] Inhaled oxygen concentration 100 % Normal [facility] Comment on above: Performed By: #### 9 3685-6 ####ANNETTE Castle ([id number])[facility] ([facility])[address]311 [place] [address] Lactate (BldA) [Moles/Vol] 5.4 mmol/L Critically high 0.4-2.0 [facility] Comment on above: Performed By: #### 9 3685-6 ####ANNETTE Castle ([id number])[facility] ([facility])[address]40 [place] [address] Oxygen (Bld) [Partial pressure] 150 mm Hg High 85-95 [facility] Comment on above: Performed By: #### 9 3685-6 ####ANNETTE Castle ([id number])[facility] ([facility])[address] [place] [address] 45837 Oxyhemoglobin (BldA) [Mass fraction] 97.7 % Normal 94.0-98.0 [facility] Comment on above: Performed By: #### 9 2695-6 ####ANNETTE Castle ([id number])[facility] ([facility])[address]505 [place] [address] pH (Bld) 7.13 [pH] Critically low 7.38-7.42 [facility] Comment on above: Performed By: #### 9 3855-6 ####ANNETTE Castle ([id number])[facility] ([facility])[address]78 [place] [address] Potassium (BldA) [Moles/Vol] 4.8 mmol/L Normal 3.5-5.3 [facility] Comment on above: Performed By: #### 9 1015-6 ####ANNETTE Castle ([id number])[facility] ([facility])[address]692 [place] [address] Sodium (BldA) [Moles/Vol] 137 mmol/L Normal 136-145 [facility] Comment on above: Performed By: #### 9 3685-6 ####ANNETTE Castle ([id number])[facility] ([facility])[address] [place] [address] 58457 Anion gap 4 (BldA) [Moles/Vol] 15 mmo/L Normal 10-25 [facility] Comment on above: Performed By: #### 9 3685-6 ####ANNETTE Castle ([id number])[facility] ([facility])[address] [place] [address] 53053 Base excess Calc (Bld) [Moles/Vol] -5.6000 mmol/L Low -2.0-3.0 [facility] Comment on above: Performed By: #### 9 3685-6 ####ANNETTE Castle ([id number])[facility] ([facility])[address] [place] [address] 39760 Calcium.ionized (BldA) [Moles/Vol] 1.17 mmol/L Normal 1.10-1.33 [facility] Comment on above: Performed By: #### 9 3685-6 ####ANNETTE Castle ([id number])[facility] ([facility])[address] [place] [address] 06425 Chloride (BldA) [Moles/Vol] 106 mmol/L Normal 98-107 [facility] Comment on above: Performed By: #### 9 3685-6 ####ANNETTE Castle ([id number])[facility] ([facility])[address] [place] [address] 38719 CO2 (Bld) [Partial pressure] 46 mm Hg High 38-42 [facility] Comment on above: Performed By: #### 9 3685-6 ####ANNETTE Castle ([id number])[facility] ([facility])[address] [place] [address] 41997 Glucose [Mass/Vol] 137 mg/dL High 74-99 [facility] Comment on above: Performed By: #### 9 3685-6 ####ANNETTE Castle ([id number])[facility] ([facility])[address]36 [place] [address] HCO3 (Bld) [Moles/Vol] 21.1 mmol/L Low 22.0-26.0 [facility] Comment on above: Performed By: #### 9 3685-6 ####ANNETTE Castle ([id number])[facility] ([facility])[address] [place] [address] 40411 Hematocrit Est (Bld) [Volume fraction] 27.0 % Low 41.0-52.0 [facility] Comment on above: Performed By: #### 9 3685-6 ####ANNETTE Castle ([id number])[facility] ([facility])[address] [place] [address] 00848 Hemoglobin (Bld) [Mass/Vol] 9.1 g/dL Low 13.5-17.5 [facility] Comment on above: Performed By: #### 9 3685-6 ####ANNETTE Castle ([id number])[facility] ([facility])[address] [place] [address] 03170 Inhaled oxygen concentration 45 % Normal [facility] Comment on above: Performed By: #### 9 3685-6 ####ANNETTE Castle ([id number])[facility] ([facility])[address] [place] [address] 22559 Lactate (BldA) [Moles/Vol] 3.8 mmol/L High 0.4-2.0 [facility] Comment on above: Performed By: #### 9 3685-6 ####ANNETTE GARCIA L ([id number])[facility] ([facility])[address] [place] [address] 21185 Oxygen (Bld) [Partial pressure] 77 mm Hg Low 85-95 [facility] Comment on above: Performed By: #### 9 3685-6 ####ANNETTE Castle ([id number])[facility] ([facility])[address] [place] [address] Oxyhemoglobin (BldA) [Mass fraction] 94.7 % Normal 94.0-98.0 [facility] Comment on above: Performed By: #### 9 3685-6 ####ANNETTE Castle ([id number])[facility] ([facility])[id number] [place] [address] 64840 pH (Bld) 7.27 [pH] Low 7.38-7.42 [facility] Comment on above: Performed By: #### 9 3685-6 ####ANNETTE Castle ([id number])[facility] ([facility])[id number] [place] [address]5579 Potassium (BldA) [Moles/Vol] 4.8 mmol/L Normal 3.5-5.3 [facility] Comment on above: Performed By: #### 9 3685-6 ####ANNETTE Castle ([id number])[facility] ([facility])[id number] [place] [address] 56860 Sodium (BldA) [Moles/Vol] 137 mmol/L Normal 136-145 [facility] Comment on above: Performed By: #### 9 3685-6 ####ANNETTE Castle ([id number])[facility] ([facility])[address] [place] [id number] Anion gap 4 (BldA) [Moles/Vol] 10 mmo/L Normal 10-25 [facility] Comment on above: Performed By: #### 9 3685-6 ####ANNETTE Castle ([id number])[facility] ([facility])[id number] [place] [address]246 Base excess Calc (Bld) [Moles/Vol] -0.8000 mmol/L Normal -2.0-3.0 [facility] [facility] Comment on above: Performed By: #### 9 3685-6 ####ANNETTE Castle ([id number])[facility] ([facility])[address] [place] [address] Calcium.ionized (BldA) [Moles/Vol] 1.13 mmol/L Normal 1.10-1.33 [facility] Comment on above: Performed By: #### 9 3685-6 ####ANNETTE Castle ([id number])[facility] ([facility])[address] [place] [address] Chloride (BldA) [Moles/Vol] 107 mmol/L Normal 98-107 [facility] Comment on above: Performed By: #### 9 3685-6 ####ANNETTE Castle ([id number])[facility] ([facility])[address] [place] [address] CO2 (Bld) [Partial pressure] 34 mm Hg Low 38-42 [facility] Comment on above: Performed By: #### 9 3685-6 ####ANNETTE Castle ([id number])[facility] ([facility])[address] [place] [address]343 Glucose [Mass/Vol] 119 mg/dL High 74-99 [facility] Comment on above: Performed By: #### 9 3685-6 ####ANNETTE Castle ([id number])[facility] ([facility])[address] [place] [address] HCO3 (Bld) [Moles/Vol] 23.1 mmol/L Normal 22.0-26.0 [facility] Comment on above: Performed By: #### 9 3685-6 ####ANNETTE Castle ([id number])[facility] ([facility])[address] [place] [address] Hematocrit Est (Bld) [Volume fraction] 27.0 % Low 41.0-52.0 [facility] Comment on above: Performed By: #### 9 3685-6 ####ANNETTE Castle ([id number])[facility] ([facility])[address] [place] [address]2784 Hemoglobin (Bld) [Mass/Vol] 9.0 g/dL Low 13.5-17.5 [facility] Comment on above: Performed By: #### 9 3685-6 ####ANNETTE Castle ([id number])[facility] ([facility])[address]335 [place] [address] Inhaled oxygen concentration 36 % Normal [facility] Comment on above: Performed By: #### 9 3685-6 ####ANNETTE Csatle ([id number])[facility] ([facility])[address] [place] [address] Lactate (BldA) [Moles/Vol] 0.7 mmol/L Normal 0.4-2.0 [facility] Comment on above: Performed By: #### 9 3685-6 ####ANNETTE Castle ([id number])[facility] ([facility])[address] [place] [address] Oxygen (Bld) [Partial pressure] 66 mm Hg Low 85-95 [facility] Comment on above: Performed By: #### 9 3685-6 ####ANNETTE Castle ([id number])[facility] ([facility])[address]93 [place] [address] Oxyhemoglobin (BldA) [Mass fraction] 93.4 % Low 94.0-98.0 [facility] Comment on above: Performed By: #### 9 2345-6 ####ANNETTE Castle ([id number])[facility] ([facility])[address]332 [place] [address] pH (Bld) 7.44 [pH] High 7.38-7.42 [facility] Comment on above: Performed By: #### 9 4935-6 ####ANNETTE Castle ([id number])[facility] ([facility])[address]992 [place] [address] Potassium (BldA) [Moles/Vol] 3.8 mmol/L Normal 3.5-5.3 [facility] Comment on above: Performed By: #### 9 9845-6 ####ANNETTE Castle ([id number])[facility] ([facility])[address]66 [place] [address] Sodium (BldA) [Moles/Vol] 136 mmol/L Normal 136-145 [facility] Comment on above: Performed By: #### 9 3685-6 ####ANNETTE Castle ([id number])[facility] ([facility])[address]15 [place] [address] Glucose Test strip manual (B ld) [Mass/Vol]on 09-29-2024 Glucose [Mass/Vol] 178 mg/dL High 74-99 [facility] Comment on above: Performed By: #### 2 341-6 ####ANNETTE Castle ([id number])[facility] ([facility])[address]655 [place] [address] Hepatic function 2000 panelo n 09-29-2024 ALP [Catalytic activity/Vol] 38 U/L Normal 33-136 [facility] Comment on above: Performed By: #### 2 4325-3 ####ANNETTE Castle ([id number])[facility] ([facility])[address]503 [place] [address] ALT With P-5'-P [Catalytic activity/Vol] 18 U/L Normal 10-52 [facility] Comment on above: Result Comment: Jaqueline ents treated with Sulfasalazine may generate falsely decreased results for ALT. Performed By: #### 2 4325-3 ####ANNETTE Castle ([id number])[facility] ([facility])[address]878 [place] [address] AST With P-5'-P [Catalytic activity/Vol] 38 U/L Normal 9-39 [facility] Comment on above: Performed By: #### 2 4325-3 ####ANNETTE Castle ([id number])[facility] ([facility])[address]209 [place] [address] Bilirubin [Mass/Vol] 1.6 mg/dL High 0.0-1.2 [facility] Comment on above: Performed By: #### 2 4325-3 ####ANNETTE Castle ([id number])[facility] ([facility])[address]69 [place] [address] Bilirubin.direct [Mass/Vol] 0.7 mg/dL High 0.0-0.3 [facility] Comment on above: Performed By: #### 2 4325-3 ####ANNETTE Castle ([id number])[facility] ([facility])[address]900 [place] [address] Protein [Mass/Vol] 5.3 g/dL Low 6.4-8.2 [facility] Comment on above: Performed By: #### 2 4325-3 ####ANNETTE Castle ([id number])[facility] ([facility])[address] [place] [address] 26266 Magnesiumon 09-29-2024 Magnesium [Mass/Vol] 2.05 mg/dL Normal 1.60-2.40 [facility] Comment on above: Performed By: #### 1 9123-9 ####ANNETTE Castle ([id number])[facility] ([facility])[address] [place] [address] Magnesium [Mass/Vol] 2.12 mg/dL Normal 1.60-2.40 [facility] Comment on above: Performed By: #### 1 9123-9 ####ANNETTE Castle ([id number])[facility] ([facility])[address] [place] [address] 99408 Magnesium [Mass/Vol] 2.03 mg/dL Normal 1.60-2.40 [facility] Comment on above: Performed By: #### 1 9123-9 ####ANNETTE Castle ([id number])[facility] ([facility])[address] [place] [address] PT and aPTT panel Coag (PPP) on 09-29-2024 aPTT Coag (PPP) [Time] 25 s Low 26-36 [facility] Comment on above: Order Comment: The A PTT is no longer used for monitoring Unfractionated Heparin Therapy. For monitoring Heparin Therapy, use the Heparin Assay. Performed By: #### 3 4529-8 ####ANNETTE Castle ([id number])[facility] ([facility])[address] [place] [address] INR Coag (PPP) [Relative time] 1.2 High 0.9-1.1 [facility] Comment on above: Order Comment: The A PTT is no longer used for monitoring Unfractionated Heparin Therapy. For monitoring Heparin Therapy, use the Heparin Assay. Performed By: #### 3 4529-8 ####ANNETTE Castle ([id number])[facility] ([facility])[address] [facility] [address] PT Coag (PPP) [Time] 13.5 s High 9.8-12.4 [facility] Comment on above: Order Comment: The A PTT is no longer used for monitoring Unfractionated Heparin Therapy. For monitoring Heparin Therapy, use the Heparin Assay. Performed By: #### 3 4529-8 ####ANNETTE Castle ([id number])[facility] ([facility])[address] [place] [address] aPTT Coag (PPP) [Time] 24 s Low 26-36 [facility] Comment on above: Order Comment: The A PTT is no longer used for monitoring Unfractionated Heparin Therapy. For monitoring Heparin Therapy, use the Heparin Assay. Performed By: #### 3 4529-8 ####ANNETTE Castle ([id number])[facility] ([facility])[address] [place] [address] INR Coag (PPP) [Relative time] 1.7 High 0.9-1.1 [facility] Comment on above: Order Comment: The A PTT is no longer used for monitoring Unfractionated Heparin Therapy. For monitoring Heparin Therapy, use the Heparin Assay. Performed By: #### 3 4529-8 ####ANNETTE Castle ([id number])[facility] ([facility])[address]65 [place] [address] PT Coag (PPP) [Time] 18.3 s High 9.8-12.4 [facility] Comment on above: Order Comment: The A PTT is no longer used for monitoring Unfractionated Heparin Therapy. For monitoring Heparin Therapy, use the Heparin Assay. Performed By: #### 3 4529-8 ####ANNETTE Castle ([id number])[facility] ([facility])[address] [place] [address] 722[address] aPTT Coag (PPP) [Time] 24 s Low 26-36 [facility] Comment on above: Order Comment: The A PTT is no longer used for monitoring Unfractionated Heparin Therapy. For monitoring Heparin Therapy, use the Heparin Assay. Performed By: #### 3 4529-8 ####ANNETTE RAMSEYTZER L ([id number])[facility] ([facility])[address] [place] [address], [place] [address] INR Coag (PPP) [Relative time] 1.5 High 0.9-1.1 [facility] Comment on above: Order Comment: The A PTT is no longer used for monitoring Unfractionated Heparin Therapy. For monitoring Heparin Therapy, use the Heparin Assay. Performed By: #### 3 4529-8 ####ANNETTE GARCIA L ([id number])[facility] ([facility])[address] [place] [address]127 PT Coag (PPP) [Time] 16.9 s High 9.8-12.4 [facility] Comment on above: Order Comment: The A PTT is no longer used for monitoring Unfractionated Heparin Therapy. For monitoring Heparin Therapy, use the Heparin Assay. Performed By: #### 3 4529-8 ####ANNETTE GARCIA L ([id number])[facility] ([facility])[address]369 [place] [address] aPTT Coag (PPP) [Time] 27 s Normal 26-36 [facility] Comment on above: Order Comment: The A PTT is no longer used for monitoring Unfractionated Heparin Therapy. For monitoring Heparin Therapy, use the Heparin Assay. Performed By: #### 3 4529-8 ####ANNETTE YEBOAHMOTZER L ([id number])[facility] ([facility])[address]1992 [place] [address] INR Coag (PPP) [Relative time] 1.6 High 0.9-1.1 [facility] Comment on above: Order Comment: The A PTT is no longer used for monitoring Unfractionated Heparin Therapy. For monitoring Heparin Therapy, use the Heparin Assay. Performed By: #### 3 4529-8 ####ANNETTE Castle ([id number])[facility] ([facility])[address] [place] [address] 93206 PT Coag (PPP) [Time] 17.7 s High 9.8-12.4 [facility] Comment on above: Order Comment: The A PTT is no longer used for monitoring Unfractionated Heparin Therapy. For monitoring Heparin Therapy, use the Heparin Assay. Performed By: #### 3 4529-8 ####ANNETTE Castle ([id number])[facility] ([facility])[address] [place] [address] Renal function 2000 panelon 09-29-2024 Albumin BCP dye [Mass/Vol] 3.9 g/dL Normal 3.4-5.0 [facility] Comment on above: Performed By: #### 2 4362-6 ####ANNETTE Castle ([id number])[facility] ([facility])[address] [place] [address]647 Anion gap [Moles/Vol] 16 mmol/L Normal 10-20 [facility] Comment on above: Performed By: #### 2 4362-6 ####ANNETTE Castle ([id number])[facility] ([facility])[address] [place] [address] 75560 Calcium [Mass/Vol] 8.2 mg/dL Low 8.6-10.6 [facility] Comment on above: Performed By: #### 2 4362-6 ####ANNETTE Castle ([id number])[facility] ([facility])[address] [place] [address] 93541 Chloride [Moles/Vol] 104 mmol/L Normal 98-107 [facility] Comment on above: Performed By: #### 2 4362-6 ####ANNETTE Castle ([id number])[facility] ([facility])[address] [place] [address] 11886 CO2 [Moles/Vol] 23 mmol/L Normal 21-32 [facility] Comment on above: Performed By: #### 2 4362-6 ####ANNETTE Castle ([id number])[facility] ([facility])[address]503 [place] [address] Creatinine [Mass/Vol] 1.08 mg/dL Normal 0.50-1.30 [facility] Comment on above: Performed By: #### 2 4362-6 ####ANNETTE Castle ([id number])[facility] ([facility])[address]222 [place] [address] Glomerular filtration rate 72 mL/min/1.73m*2 Normal >60 [facility] Comment on above: Result Comment: Calc ulations of estimated GFR are performed using the 2020 CKD-EPI Study Refit equation without the race variable for the IDMS-Traceable creatinine methods.https://jasn.asnjournals.org/content/early/ ASN.3755567158 Performed By: #### 2 4362-6 ####ANNETTE Castle ([id number])[facility] ([facility])[address]45 [place] [address] Glucose [Mass/Vol] 168 mg/dL High 74-99 [facility] Comment on above: Performed By: #### 2 4362-6 ####ANNETTE Castle ([id number])[facility] ([facility])59145 [place] [address] Phosphate [Mass/Vol] 2.8 mg/dL Normal 2.5-4.9 [facility] Comment on above: Performed By: #### 2 4362-6 ####ANNETTE Castle ([id number])[facility] ([facility])[address]804 [place] [address] Potassium [Moles/Vol] 3.9 mmol/L Normal 3.5-5.3 [facility] Comment on above: Performed By: #### 2 4362-6 ####ANNETTE Castle (21035)[facility] ([facility])[address]246 [place] [address] Sodium [Moles/Vol] 139 mmol/L Normal 136-145 [facility] Comment on above: Performed By: #### 2 436-6 ####ANNETTE Castle ([id number])[facility] ([facility])23693 [place] [address] Urea nitrogen [Mass/Vol] 24 mg/dL High 6-23 [facility] Comment on above: Performed By: #### 2 4362-6 ####ANNETTE Castle ([id number])[facility] ([facility])[address]666 [place] [address] Albumin BCP dye [Mass/Vol] 4.0 g/dL Normal 3.4-5.0 [facility] Comment on above: Performed By: #### 2 436-6 ####ANNETTE Castle ([id number])[facility] ([facility])[address]59 [place] [address] Performed By: #### 2 4325-3 ####ANNETTE Castle ([id number])[facility] ([facility])[address]169 [place] [address] Anion gap [Moles/Vol] 17 mmol/L Normal 10-20 [facility] Comment on above: Performed By: #### 2 4362-6 ####ANNETTE Castle ([id number])[facility] ([facility])10975 [place] [address] Calcium [Mass/Vol] 8.0 mg/dL Low 8.6-10.6 [facility] Comment on above: Performed By: #### 2 4362-6 ####ANNETTE Castle ([id number])[facility] ([facility])[address]12 [place] [address] Chloride [Moles/Vol] 103 mmol/L Normal 98-107 [facility] Comment on above: Performed By: #### 2 4362-6 ####ANNETTE Castle ([id number])[facility] ([facility])[address] [facility] [place] [address] CO2 [Moles/Vol] 24 mmol/L Normal 21-32 [facility] Comment on above: Performed By: #### 2 4362-6 ####ANNETTE Castle ([id number])[facility] ([facility])[address] [facility] [address] Creatinine [Mass/Vol] 1.08 mg/dL Normal 0.50-1.30 [facility] Comment on above: Performed By: #### 2 4362-6 ####ANNETTE Castle ([id number])[facility] ([facility])[address] [place] [address] Glomerular filtration rate 72 mL/min/1.73m*2 Normal >60 [facility] Comment on above: Result Comment: Calc ulations of estimated GFR are performed using the 2020 CKD-EPI Study Refit equation without the race variable for the IDMS-Traceable creatinine methods.https://jasn.asnjournals.org/content/early// ASN.3100085281 Performed By: #### 2 4362-6 ####ANNETTE Castle ([id number])[facility] ([facility])[address] [place] [address] Glucose [Mass/Vol] 207 mg/dL High 74-99 [facility] Comment on above: Performed By: #### 2 4362-6 ####ANNETTE Castle ([id number])[facility] ([facility])[address] [facility] [address] Phosphate [Mass/Vol] 4.9 mg/dL Normal 2.5-4.9 [facility] Comment on above: Performed By: #### 2 4362-6 ####ANNETTE Castle ([id number])[facility] ([facility])[address] [facility] [place] [address] Potassium [Moles/Vol] 4.5 mmol/L Normal 3.5-5.3 [facility] Comment on above: Performed By: #### 2 4362-6 ####ANNETTE Castle ([id number])[facility] ([facility])[address]793 [place] [address] Sodium [Moles/Vol] 139 mmol/L Normal 136-145 [facility] Comment on above: Performed By: #### 2 4362-6 ####ANNETTE Castle ([id number])[facility] ([facility])54930 [place] [address] Urea nitrogen [Mass/Vol] 21 mg/dL Normal 6-23 [facility] Comment on above: Performed By: #### 2 4362-6 ####ANNETTE Castle ([id number])[facility] ([facility])[address]89 [place] [address] Albumin BCP dye [Mass/Vol] 3.9 g/dL Normal 3.4-5.0 [facility] Comment on above: Performed By: #### 2 4362-6 ####ANNETTE Castle ([id number])[facility] ([facility])[address]44 [place] [address] Anion gap [Moles/Vol] 13 mmol/L Normal 10-20 [facility] Comment on above: Performed By: #### 2 4362-6 ####ANNETTE Castle ([id number])[facility] ([facility])23770 [place] [address] Calcium [Mass/Vol] 8.3 mg/dL Low 8.6-10.6 [facility] Comment on above: Performed By: #### 2 4362-6 ####ANNETTE Castle ([id number])[facility] ([facility])[address]44 [place] [address] Chloride [Moles/Vol] 105 mmol/L Normal 98-107 [facility] Comment on above: Performed By: #### 2 4362-6 ####ANNETTE Castle ([id number])[facility] ([facility])[address] [place] [address] CO2 [Moles/Vol] 25 mmol/L Normal 21-32 [facility] Comment on above: Performed By: #### 2 4362-6 ####ANNETTE Castle ([id number])[facility] ([facility])[address] [place] [address] Creatinine [Mass/Vol] 0.82 mg/dL Normal 0.50-1.30 [facility] Comment on above: Performed By: #### 2 4362-6 ####ANNETTE Castle ([id number])[facility] ([facility])[address]10 [place] [address] Glomerular filtration rate >90 Normal >60 [facility] Comment on above: Result Comment: Calc ulations of estimated GFR are performed using the 2020 CKD-EPI Study Refit equation without the race variable for the IDMS-Traceable creatinine methods.https://jasn.asnjournals.org/content/early// ASN.8665906957 Performed By: #### 2 4362-6 ####ANNETTE Castle ([id number])[facility] ([facility])[address]175 [place] [address] Glucose [Mass/Vol] 120 mg/dL High 74-99 [facility] Comment on above: Performed By: #### 2 4362-6 ####ANNETTE Castle ([id number])[facility] ([facility])[address]185 [place] [address] Phosphate [Mass/Vol] 1.8 mg/dL Low 2.5-4.9 [facility] Comment on above: Performed By: #### 2 4362-6 ####ANNETTE Castle ([id number])[facility] ([facility])[address]86 [place] [address] Potassium [Moles/Vol] 3.8 mmol/L Normal 3.5-5.3 [facility] Comment on above: Performed By: #### 2 4362-6 ####ANNETTE GARCIA L ([id number])[facility] ([facility])[address]371 [place] [address] Sodium [Moles/Vol] 139 mmol/L Normal 136-145 [facility] Comment on above: Performed By: #### 2 4362-6 ####ANNETTE ELIZABETHER L ([id number])[facility] ([facility])[address]763 [place] [address] Urea nitrogen [Mass/Vol] 18 mg/dL Normal 6-23 [facility] Comment on above: Performed By: #### 2 4362-6 ####ANNETTE GARCIA L ([id number])[facility] ([facility])[address] [place] [address]8623 THROMBOELASTOGRAPH CLOTTING GLOBAL PROFILEon 09-29-2024 Clot angle.kaolin induced 73.0 deg Normal 63.0-78.0 [facility] Comment on above: Performed By: #### P OCTEGLO ####ANNETTE YEBOAHMOTZER L ([id number])[facility] ([facility])[address]62 [place] [address] Clot formation.kaolin induced 1.4 min Normal 0.8-2.1 [facility] Comment on above: Performed By: #### P OCTEGLO ####ANNETTE YEBOAHMOTZER L ([id number])[facility] ([facility])[address]50 [place] [address] Clot initiation.kaolin induced 4.1 min Low 4.6-9.1 [facility] Comment on above: Performed By: #### P OCTEGLO ####ANNETTE YEBOAHMOTZER L ([id number])[facility] ([facility])[address]1993 [place] [address] Clot initiation.kaolin induced^post heparin neutralization 4.1 min Low 4.3-8.3 [facility] Comment on above: Performed By: #### P OCTEGLO ####ANNETTE YEBOAHMOTZER L ([id number])[facility] ([facility])[address]58 [place] [address] Fibrinogen 318 mg/dL Normal 278-581 [facility] Comment on above: Performed By: #### P OCTEGLO ####ANNETTE GARCIA L ([id number])[facility] ([facility])[address]10 [place] [address] Maximum clot strength amplitude.kaolin induced 55.0 mm Normal 52.0-69.0 [facility] Comment on above: Performed By: #### P OCTEGLO ####ANNETTE YEBOAHMOTZER L ([id number])[facility] ([facility])[address] [place] [address] Maximum clot strength amplitude.kaolin+tissue factor induced 57.0 mm Normal 52.0-70.0 [facility] Comment on above: Performed By: #### P OCTEGLO ####ANNETTE YEBOAHMOTZER L ([id number])[facility] ([facility])[address] [place] [address] Maximum clot strength amplitude.tissue factor induced+platelet glycoprotein IIb-IIIa receptor inhibited 17.0 mm Normal 15.0-32.0 [facility] Comment on above: Performed By: #### P OCTEGLO ####ANNETTE Castle ([id number])[facility] ([facility])[address] [place] [address] THROMBOELASTOGRAPH CLOTTING LYSIS PROFILEon 09-29-2024 Clot initiation.kaolin induced 5.5 min Normal 4.6-9.1 [facility] Comment on above: Performed By: #### P OCTEGLY ####ANNETTE GARCIA L ([id number])[facility] ([facility])[address] [place] [address] Maximum clot strength amplitude.kaolin+tissue factor induced 61.0 mm Normal 52.0-70.0 [facility] Comment on above: Performed By: #### P OCTEGLY ####ANNETTE YEBOAHMOTZER L ([id number])[facility] ([facility])[address] [place] [address] Maximum clot strength amplitude.tissue factor induced+platelet glycoprotein IIb-IIIa receptor inhibited 19.0 mm Normal 15.0-32.0 [facility] Comment on above: Performed By: #### P OCTEGLY ####ANNETTE Castle ([id number])[facility] ([facility])[address] [place] [address] Reduction in clot strength.kaolin induced^30M post maximum clot amplitude 2.0 % Normal 0.0-2.6 [facility] Comment on above: Performed By: #### P OCTEGLY ####ANNETTE Castle ([id number])[facility] ([facility])[address] [place] [address] TRANSTHORACIC ECHO (TTE) MONROY ITEDon 09-29-2024 TRANSTHORACIC ECHO (TTE) LIMITED Normal [facility] TSH WITH REFLEX TO FREE T4 I F ABNORMALon 09-29-2024 TSH Qn 0.51 m[IU]/L Normal 0.44-3.98 [facility] Comment on above: Order Comment: TSH t esting is performed using different testing methodology at [facility] than at formerly [facility]. Direct result comparisons should only be made within the same method. Performed By: #### T HYDS ####ANNETTE Castle ([id number])[facility] ([facility])[address] [place] [address]893 XR CHEST 1 VIEWon 09-29-2024 XR CHEST 1 VIEW Normal [facility] CBC panel Auto (Bld)on 09-28 Erythrocyte distribution width (RBC) [Ratio] 14.5 % Normal 11.5-14.5 [facility] Comment on above: Performed By: #### 5 8410-2 ####ANNETTE Castle ([id number])[facility] ([facility])[address] [place] [address] Hematocrit (Bld) [Volume fraction] 28.0 % Low 41.0-52.0 [facility] Comment on above: Performed By: #### 5 8410-2 ####ANNETTE Castle ([id number])[facility] ([facility])[address] [place] [address] Hemoglobin (Bld) [Mass/Vol] 9.1 g/dL Low 13.5-17.5 [facility] Comment on above: Performed By: #### 5 8410-2 ####ANNETTE Castle ([id number])[facility] ([facility])[address] [place] [address] MCH (RBC) [Entitic mass] 29.7 pg Normal 26.0-34.0 [facility] Comment on above: Performed By: #### 5 8410-2 ####ANNETTE Castle ([id number])[facility] ([facility])[address] [place] [address] MCHC (RBC) [Mass/Vol] 32.5 g/dL Normal 32.0-36.0 [facility] Comment on above: Performed By: #### 5 8410-2 ####ANNETTE Castle ([id number])[facility] ([facility])[address] [place] [address] MCV (RBC) [Entitic vol] 92 fL Normal 80-100 U [facility] Comment on above: Performed By: #### 5 8410-2 ####ANNETTE Castle ([id number])[facility] ([facility])[address] [place] [address] Nucleated RBC/100 WBC (Bld) [Ratio] 0.0 /100 WBCs Normal 0.0-0.0 [facility] Comment on above: Performed By: #### 5 8410-2 ####ANNETTE Castle ([id number])[facility] ([facility])[address] [place] [address] Platelets (Bld) [#/Vol] 158 x10*3/uL Normal 150-450 [facility] Comment on above: Performed By: #### 5 8410-2 ####ANNETTE Castle ([id number])[facility] ([facility])[address] [place] [address] RBC (Bld) [#/Vol] 3.06 x10*6/uL Low 4.50-5.90 [facility] Comment on above: Performed By: #### 5 8410-2 ####ANNETTE Castle ([id number])[facility] ([facility])[address] [place] [address] 24432 WBC (Bld) [#/Vol] 13.5 x10*3/uL High 4.4-11.3 [facility] Comment on above: Performed By: #### 5 8410-2 ####ANNETTE Castle ([id number])[facility] ([facility])[address] [place] [address]60 Erythrocyte distribution width (RBC) [Ratio] 14.6 % High 11.5-14.5 [facility] Comment on above: Performed By: #### 5 8410-2 ####ANNETTE Castle ([id number])[facility] ([facility])[address] [place] [address] 29492 Hematocrit (Bld) [Volume fraction] 25.3 % Low 41.0-52.0 [facility] Comment on above: Performed By: #### 5 8410-2 ####ANNETTE Castle ([id number])[facility] ([facility])[address] [place] [address] 96787 Hemoglobin (Bld) [Mass/Vol] 8.4 g/dL Low 13.5-17.5 [facility] Comment on above: Performed By: #### 5 8410-2 ####ANNETTE Castle ([id number])[facility] ([facility])[address] [place] [address] 08625 MCH (RBC) [Entitic mass] 30.1 pg Normal 26.0-34.0 [facility] Comment on above: Performed By: #### 5 8410-2 ####ANNETTE Castle ([id number])[facility] ([facility])[address] [place] [address] 11112 MCHC (RBC) [Mass/Vol] 33.2 g/dL Normal 32.0-36.0 [facility] Comment on above: Performed By: #### 5 8410-2 ####ANNETTE Castle ([id number])[facility] ([facility])[address] [place] [address] MCV (RBC) [Entitic vol] 91 fL Normal 80-100 U [facility] Comment on above: Performed By: #### 5 8410-2 ####ANNETTE Castle ([id number])[facility] ([facility])[address] [place] [address] 59436 Nucleated RBC/100 WBC (Bld) [Ratio] 0.0 /100 WBCs Normal 0.0-0.0 [facility] Comment on above: Performed By: #### 5 8410-2 ####ANNETTE Castle ([id number])[facility] ([facility])[address] [place] [address] 64068 Platelets (Bld) [#/Vol] 142 x10*3/uL Low 150-450 [facility] Comment on above: Performed By: #### 5 8410-2 ####ANNETTE Castle ([id number])[facility] ([facility])[address] [place] [address] 38411 RBC (Bld) [#/Vol] 2.79 x10*6/uL Low 4.50-5.90 [facility] Comment on above: Performed By: #### 5 8410-2 ####ANNETTE Castle ([id number])[facility] ([facility])[address] [place] [address] 32602 WBC (Bld) [#/Vol] 10.7 x10*3/uL Normal 4.4-11.3 [facility] Comment on above: Performed By: #### 5 8410-2 ####ANNETTE GARCIA L ([id number])[facility] ([facility])[address] [place] [address] ANGIO ABDOMEN PELVIS W AN D/OR WO IV IV CONTRASTon 09-28-2024 CT ANGIO ABDOMEN PELVIS W AND/OR WO IV IV CONTRAST Normal [facility] Calcium.ionizedon 09-28-2024 Calcium.ionized (Bld) [Moles/Vol] 1.11 mmol/L Normal 1.1-1.33 [facility] Comment on above: Result Comment: The performance characteristics of ionized calcium testedin heparinized plasma or serum have been validated [facility] where testing is performed.Testing on heparinized plasma or serum is not approved [facility]; however, such approval is not necessary. Performed By: #### 1 994-3 ####ANNETTE Castle ([id number])[facility] ([facility])[address] [place] [address] Glucose Test strip manual (B ld) [Mass/Vol]on 09-28-2024 Glucose [Mass/Vol] 129 mg/dL High [address] [place] [address] Comment on above: Performed By: #### 2 341-6 ####ANNETTE Castle ([id number])[facility] ([facility])[address] [place] [address] Glucose [Mass/Vol] 93 mg/dL Normal [address] [place] [address] Comment on above: Performed By: #### 2 341-6 ####ANNETTE Castle ([id number])[facility] ([facility])[address] [place] [address] Glucose [Mass/Vol] 113 mg/dL High [address] [place] [address] Comment on above: Performed By: #### 2 341-6 ####ANNETTE Castle ([id number])[facility] ([facility])[address]43 [place] [address] Glucose [Mass/Vol] 104 mg/dL High [address] [place] [address] Comment on above: Performed By: #### 2 341-6 ####ANNETTE Castle ([id number])[facility] ([facility])[address]292 [place] [address] Glucose [Mass/Vol] 106 mg/dL High [address] [place] [address] Comment on above: Performed By: #### 2 341-6 ####ANNETTE Castle ([id number])[facility] ([facility])[address] [place] [address] Glucose [Mass/Vol] 83 mg/dL Normal 74-99 [facility] Comment on above: Performed By: #### 2 341-6 ####ANNETTE Castle ([id number])[facility] ([facility])[address]698 [place] [address] Magnesiumon 09-28-2024 Magnesium [Mass/Vol] 2.06 mg/dL Normal 1.60-2.40 [facility] Comment on above: Performed By: #### 1 9123-9 ####ANNETTE Castle ([id number])[facility] ([facility])[address] [place] [address]6047 PT and aPTT panel Coag (PPP) on 09-28-2024 aPTT Coag (PPP) [Time] 28 s Normal 26-36 [facility] Comment on above: Order Comment: The A PTT is no longer used for monitoring Unfractionated Heparin Therapy. For monitoring Heparin Therapy, use the Heparin Assay. Performed By: #### 3 4529-8 ####ANNETTE Castle ([id number])[facility] ([facility])[address] [place] [address] 23917 INR Coag (PPP) [Relative time] 1.7 High 0.9-1.1 [facility] Comment on above: Order Comment: The A PTT is no longer used for monitoring Unfractionated Heparin Therapy. For monitoring Heparin Therapy, use the Heparin Assay. Performed By: #### 3 4529-8 ####ANNETTE Castle ([id number])[facility] ([facility])[address] [place] [address] PT Coag (PPP) [Time] 19.2 s High 9.8-12.4 [facility] Comment on above: Order Comment: The A PTT is no longer used for monitoring Unfractionated Heparin Therapy. For monitoring Heparin Therapy, use the Heparin Assay. Performed By: #### 3 4529-8 ####ANNETTE Castle ([id number])[facility] ([facility])[address]75 [place] [address] Renal function 2000 panelon 09-28-2024 Albumin BCP dye [Mass/Vol] 3.7 g/dL Normal 3.4-5.0 [facility] Comment on above: Performed By: #### 2 4362-6 ####ANNETTE Castle ([id number])[facility] ([facility])[address] [place] [address] Anion gap [Moles/Vol] 14 mmol/L Normal 10-20 [facility] Comment on above: Performed By: #### 2 4362-6 ####ANNETTE Castle (13602)[facility] ([facility])[address]36 [place] [address] Calcium [Mass/Vol] 8.1 mg/dL Low 8.6-10.6 [facility] Comment on above: Performed By: #### 2 4362-6 ####ANNETTE Castle ([id number])[facility] ([facility])[address]17 [place] [address] Chloride [Moles/Vol] 104 mmol/L Normal 98-107 [facility] Comment on above: Performed By: #### 2 4362-6 ####ANNETTE Castle ([id number])[facility] ([facility])[address] [place] [address] CO2 [Moles/Vol] 23 mmol/L Normal 21-32 [facility] Comment on above: Performed By: #### 2 4362-6 ####ANNETTE GARCIA L ([id number])[facility] ([facility])[address]60 [place] [address] Creatinine [Mass/Vol] 0.86 mg/dL Normal 0.50-1.30 [facility] Comment on above: Performed By: #### 2 4362-6 ####ANNETTE Castle ([id number])[facility] ([facility])[address] [place] [address] Glomerular filtration rate 90 mL/min/1.73m*2 Normal >60 [facility] Comment on above: Result Comment: Calc ulations of estimated GFR are performed using the 2020 CKD-EPI Study Refit equation without the race variable for the IDMS-Traceable creatinine methods.https://jasn.asnjournals.org/content// ASN.2587462688 Performed By: #### 2 4362-6 ####ANNETTE Castle ([id number])[facility] ([facility])[address]655 [place] [address] Glucose [Mass/Vol] 111 mg/dL High 74-99 [facility] Comment on above: Performed By: #### 2 4362-6 ####ANNETTE Castle ([id number])[facility] ([facility])[address]149 [place] [address] Phosphate [Mass/Vol] 1.5 mg/dL Low 2.5-4.9 [facility] Comment on above: Performed By: #### 2 4362-6 ####ANNETTE GARCIA L ([id number])[facility] ([facility])[address]91 [place] [address] Potassium [Moles/Vol] 3.8 mmol/L Normal 3.5-5.3 [facility] Comment on above: Performed By: #### 2 4362-6 ####ANNETTE RAMSEYTZVISHNU L ([id number])[facility] ([facility])[address]111 [place] [address] Sodium [Moles/Vol] 137 mmol/L Normal 136-145 [facility] Comment on above: Performed By: #### 2 4362-6 ####ANNETTE GARCIA L ([id number])[facility] ([facility])[address]23 [place] [address] Urea nitrogen [Mass/Vol] 19 mg/dL Normal 6-23 [facility] Comment on above: Performed By: #### 2 4362-6 ####ANNETTE GARCIA L ([id number])[facility] ([facility])[address]56 [place] [address] Albumin BCP dye [Mass/Vol] 3.1 g/dL Low 3.4-5.0 [facility] Comment on above: Performed By: #### 2 4362-6 ####ANNETTE Castle ([id number])[facility] ([facility])[address]77 [place] [address] Anion gap [Moles/Vol] 13 mmol/L Normal 10-20 [facility] Comment on above: Performed By: #### 2 4362-6 ####ANNETTE Castle ([id number])[facility] ([facility])[address]401 [place] [address] Calcium [Mass/Vol] 7.8 mg/dL Low 8.6-10.6 [facility] Comment on above: Performed By: #### 2 4362-6 ####ANNETTE Castle ([id number])[facility] ([facility])[address]57 [place] [address] Chloride [Moles/Vol] 105 mmol/L Normal 98-107 [facility] Comment on above: Performed By: #### 2 4362-6 ####ANNETTE Castle (60289)[facility] ([facility])[address]49 [place] [address] CO2 [Moles/Vol] 24 mmol/L Normal 21-32 [facility] Comment on above: Performed By: #### 2 4362-6 ####ANNETTE Castle ([id number])[facility] ([facility])[address]192 [place] [address] Creatinine [Mass/Vol] 1.03 mg/dL Normal 0.50-1.30 [facility] Comment on above: Performed By: #### 2 4362-6 ####ANNETTE Castle ([id number])[facility] ([facility])[address]651 [place] [address] Glomerular filtration rate 76 mL/min/1.73m*2 Normal >60 [facility] Comment on above: Result Comment: Calc ulations of estimated GFR are performed using the 2020 CKD-EPI Study Refit equation without the race variable for the IDMS-Traceable creatinine methods.https://jasn.asnjournals.org/content// ASN.9730184487 Performed By: #### 2 4362-6 ####ANNETTE Castle (97655)[facility] ([facility])[address]163 [place] [address] Glucose [Mass/Vol] 109 mg/dL High 74-99 [facility] Comment on above: Performed By: #### 2 4362-6 ####ANNETTE Castle (85607)[facility] ([facility])[address]61 [place] [address] Phosphate [Mass/Vol] 2.6 mg/dL Normal 2.5-4.9 [facility] Comment on above: Performed By: #### 2 4362-6 ####ANNETTE GARCIA L ([id number])[facility] ([facility])[address]23 [place] [address] Potassium [Moles/Vol] 3.6 mmol/L Normal 3.5-5.3 [facility] Comment on above: Performed By: #### 2 4362-6 ####ANNETTE GARCIA L ([id number])[facility] ([facility])[address] [place] [address] Sodium [Moles/Vol] 138 mmol/L Normal 136-145 [facility] Comment on above: Performed By: #### 2 4362-6 ####ANNETTE YEBOAHMOTZVISHNU L (81661)[facility] ([facility])[address]323 [place] [address] Urea nitrogen [Mass/Vol] 25 mg/dL High 6-23 [facility] Comment on above: Performed By: #### 2 4362-6 ####ANNETTE YEBOAHMOTZVISHNU L ([id number])[facility] ([facility])[address] [facility] [address] XR CHEST 1 VIEWon 09-28-2024 XR CHEST 1 VIEW Normal [facility] Activated clotting timeon ACT Coag (Bld) 126 s Normal 83-199 [facility] Comment on above: Result Comment: Targ et ACT range will vary based on the patient population, clinical status, and surgical intervention occurring. Performed By: #### 3 184-9 ####ANNETTE Castle ([id number])[facility] ([facility])[address]93 [place] [address] ACT Coag (Bld) 237 s [facility] [address] Comment on above: Result Comment: Targ et ACT range will vary based on the patient population, clinical status, and surgical intervention occurring. Performed By: #### 3 184-9 ####ANNETTE Castle ([id number])[facility] ([facility])[address] [place] [address] ACT Coag (Bld) [address] Comment on above: Result Comment: Targ et ACT range will vary based on the patient population, clinical status, and surgical intervention occurring. Performed By: #### 3 184-9 ####ANNETTE Castle ([id number])[facility] ([facility])[address]857 [place] [address] ACT Coag (Bld) [address] Comment on above: Result Comment: Targ et ACT range will vary based on the patient population, clinical status, and surgical intervention occurring. Performed By: #### 3 184-9 ####ANNETTE GARCIA L ([id number])[facility] ([facility])[address]51 [place] [address] ACT Coag (Bld) [address] Comment on above: Result Comment: Targ et ACT range will vary based on the patient population, clinical status, and surgical intervention occurring. Performed By: #### 3 184-9 ####ANNETTE YEBOAHMOERNATE L ([id number])[facility] ([facility])[address]114 [place] [address] ACT Coag (Bld) 271 s High [address] Comment on above: Result Comment: Targ et ACT range will vary based on the patient population, clinical status, and surgical intervention occurring. Performed By: #### 3 184-9 ####ANNETTE Castle ([id number])[facility] ([facility])[address] [place] [address] ACT Coag (Bld) [address] Comment on above: Result Comment: Targ et ACT range will vary based on the patient population, clinical status, and surgical intervention occurring. Performed By: #### 3 184-9 ####ANNETTE Castle ([id number])[facility] ([facility])[address] [place] [address] ACT Coag (Bld) [address] Comment on above: Result Comment: Targ et ACT range will vary based on the patient population, clinical status, and surgical intervention occurring. Performed By: #### 3 184-9 ####ANNETTE Castle ([id number])[facility] ([facility])[address] [place] [address] 38784 Bacteriaon 09-27-2024 Bacteria identified Cx Nom (Bld) Test: Blood Culture Specimen Source: Peripheral Venipuncture Specimen Type: Blood culture Specimen Date: 09/27/2024 0058 Result Date: 10/01/2024 1200 Result Status: Final result Abnormal: No Resulting Lab: [facility] [address] [place] [address] CULTURE No growth at 4 days - FINAL REPORT Normal [facility] Comment on above: Performed By: #### 4 8065-7 #### VISHNU LEE ([id number]) [facility] ([facility]) [address] [place] [address] Bacteria identified Cx Nom (U) Test: Urine Culture Specimen Source: Clean Catch/Voided Specimen Type: Urine Specimen Date: 09/27/2024 0034 Result Date: 09/28/2024 0806 Result Status: Final result Abnormal: No Resulting Lab: [facility] [address] [facility] [address] CULTURE Growth indicates contamination with periurethral juan a. Repeat culture if clinically indicated. [facility] Comment on above: Performed By: #### 2 4323-8 #### VISHNU LEE ([id number]) [facility] ([facility]) [address] [place] [address] Blood type and Indirect anti body screen panel (Bld)on 09-27-2024 ABO group Nom (Bld) A [facility] Comment on above: Performed By: #### 3 4532-2 ####ANNETTE Castle ([id number])[facility] ([facility])[address] [place] [address] Blood group antibody screen Ql Negative [facility] Comment on above: Performed By: #### 3 4532-2 ####ANNETTE Castle ([id number])[facility] ([facility])[address]355 [place] [address] D Ag Ql (Bld) Positive [facility] Comment on above: Performed By: #### 3 4532-2 ####ANNETTE Castle ([id number])[facility] ([facility])[address] [place] [address] ABO group Nom (Bld) A [facility] Blood group antibody screen Ql Negative [facility] D Ag Ql (Bld) Positive [facility] ABO group Nom (Bld) A [facility] Comment on above: Performed By: #### 4 8065-7 #### VISHNU LEE ([id number]) [facility] ([facility]) [address] [place], [place] [address] Blood group antibody screen Ql Negative [facility] Comment on above: Performed By: #### 4 8065-7 #### VISHNU LEE ([id number]) [facility] ([facility]) [address] [place] [address] D Ag Ql (Bld) Positive Normal [facility] Comment on above: Performed By: #### 4 8065-7 #### VISHNU LEE ([id number]) [facility] HOSPITAL LAB ([facility]) [facility] [place] [address] CBC panel Auto (Bld)on 09-27 Erythrocyte distribution width (RBC) [Ratio] 13.8 % Normal 11.5-14.5 [facility] Comment on above: Performed By: #### 5 8410-2 ####ANNETTE Castle ([id number])[facility] ([facility])[id number] [place] [address] Hematocrit (Bld) [Volume fraction] 27.5 % Low 41.0-52.0 [facility] Comment on above: Performed By: #### 5 8410-2 ####ANNETTE Castle ([id number])[facility] ([facility])[address] [place] [address] Hemoglobin (Bld) [Mass/Vol] 9.3 g/dL Low 13.5-17.5 [facility] Comment on above: Performed By: #### 5 8410-2 ####ANNETTE Castle ([id number])[facility] ([facility])[address] [place] [address] MCH (RBC) [Entitic mass] 30.7 pg Normal 26.0-34.0 [facility] Comment on above: Performed By: #### 5 8410-2 ####ANNETTE Castle ([id number])[facility] ([facility])[address] [place] [address] MCHC (RBC) [Mass/Vol] 33.8 g/dL Normal 32.0-36.0 [facility] Comment on above: Performed By: #### 5 8410-2 ####ANNETTE Castle ([id number])[facility] ([facility])[address] [place] [address] MCV (RBC) [Entitic vol] 91 fL Normal 80-100 U [facility] Comment on above: Performed By: #### 5 8410-2 ####ANNETTE Castle ([id number])[facility] ([facility])[address] [place] [address] Nucleated RBC/100 WBC (Bld) [Ratio] 0.0 /100 WBCs Normal 0.0-0.0 [facility] Comment on above: Performed By: #### 5 8410-2 ####ANNETTE Castle ([id number])[facility] ([facility])[address] [place] [address] Platelets (Bld) [#/Vol] 154 x10*3/uL Normal 150-450 [facility] Comment on above: Performed By: #### 5 8410-2 ####ANNETTE Castle ([id number])[facility] ([facility])[address] [place] [address] RBC (Bld) [#/Vol] 3.03 x10*6/uL Low 4.50-5.90 [facility] Comment on above: Performed By: #### 5 8410-2 ####ANNETTE Castle ([id number])[facility] ([facility])[address] [place] [address] WBC (Bld) [#/Vol] 11.8 x10*3/uL High 4.4-11.3 [facility] Comment on above: Performed By: #### 5 8410-2 ####ANNETTE Castle ([id number])[facility] ([facility])[address] [place] [address] Erythrocyte distribution width (RBC) [Ratio] 14.0 % Normal 11.5-14.5 [facility] Comment on above: Performed By: #### 5 8410-2 ####ANNETTE Castle ([id number])[facility] ([facility])[address] [place] [address] Hematocrit (Bld) [Volume fraction] 24.7 % Low 41.0-52.0 [facility] Comment on above: Performed By: #### 5 8410-2 ####ANNETTE Castle ([id number])[facility] ([facility])[address] [place] [address] Hemoglobin (Bld) [Mass/Vol] 7.8 g/dL Low 13.5-17.5 [facility] Comment on above: Performed By: #### 5 8410-2 ####ANNETTE Castle ([id number])[facility] ([facility])[address] [place] [address] MCH (RBC) [Entitic mass] 29.1 pg Normal 26.0-34.0 [facility] Comment on above: Performed By: #### 5 8410-2 ####ANNETTE Castle ([id number])[facility] ([facility])[address] [place] [address] MCHC (RBC) [Mass/Vol] 31.6 g/dL Low 32.0-36.0 [facility] Comment on above: Performed By: #### 5 8410-2 ####ANNETTE Castle ([id number])[facility] ([facility])[address] [place] [address] MCV (RBC) [Entitic vol] 92 fL Normal 80-100 U [facility] Comment on above: Performed By: #### 5 8410-2 ####ANNETTE Castle ([id number])[facility] ([facility])[address] [place] [address] Nucleated RBC/100 WBC (Bld) [Ratio] 0.0 /100 WBCs Normal 0.0-0.0 [facility] Comment on above: Performed By: #### 5 8410-2 ####ANNETTE Castle ([id number])[facility] ([facility])[address] [place] [address] Platelets (Bld) [#/Vol] 176 x10*3/uL Normal 150-450 [facility] Comment on above: Performed By: #### 5 8410-2 ####ANNETTE Castle ([id number])[facility] ([facility])[address] [place] [address] RBC (Bld) [#/Vol] 2.68 x10*6/uL Low 4.50-5.90 [facility] Comment on above: Performed By: #### 5 8410-2 ####ANNETTE Castle ([id number])[facility] ([facility])[address] [place] [address] WBC (Bld) [#/Vol] 16.0 x10*3/uL High 4.4-11.3 [facility] Comment on above: Performed By: #### 5 8410-2 ####ANNETTE Castle ([id number])[facility] ([facility])[address] [place] [address] Erythrocyte distribution width (RBC) [Ratio] 13.4 % 11.5 - 14.5 % [facility] Hematocrit (Bld) [Volume fraction] 33.5 % Low 41.0 - 52.0 % [facility] Hemoglobin (Bld) [Mass/Vol] 10.5 g/dL Low 13.5 - 17.5 g/dL [facility] Interpretation and review of laboratory results Abnormal [facility] MCH (RBC) [Entitic mass] 29.7 pg 26.0 - 34.0 pg [facility] MCHC (RBC) [Mass/Vol] 31.3 g/dL Low 32.0 - 36.0 g/dL [facility] MCV (RBC) [Entitic vol] 95 fL 80 - 100 fL [facility] Nucleated RBC/100 WBC (Bld) [Ratio] 0.0 % [facility] Platelets (Bld) [#/Vol] 267 10*3/uL [facility] RBC (Bld) [#/Vol] 3.53 10*6/uL Low [facility] WBC (Bld) [#/Vol] 14.9 10*3/uL High [facility] Erythrocyte distribution width (RBC) [Ratio] 13.4 % Normal 11.5-14.5 [facility] Comment on above: Performed By: #### 4 8065-7 #### VISHNU LEE ([id number]) [facility] ([facility]) [address] [place] [address] Hematocrit (Bld) [Volume fraction] 33.5 % Low 41.0-52.0 [facility] Comment on above: Performed By: #### 4 8065-7 #### VISHNU LEE ([id number]) [facility] ([facility]) [address] [place] [address] Hemoglobin (Bld) [Mass/Vol] 10.5 g/dL Low 13.5-17.5 [facility] Comment on above: Performed By: #### 4 8065-7 #### VISHNU LEE ([id number]) [facility] ([facility]) [address] [place] [address] MCH (RBC) [Entitic mass] 29.7 pg Normal 26.0-34.0 [facility] Comment on above: Performed By: #### 4 8065-7 #### VISHNU LEE ([id number]) [facility] ([facility]) [address] [place] [address] MCHC (RBC) [Mass/Vol] 31.3 g/dL Low 32.0-36.0 [facility] Comment on above: Performed By: #### 4 8065-7 #### VISHNU LEE ([id number]) [facility] ([facility]) [address] [place] [address] MCV (RBC) [Entitic vol] 95 fL Normal 80-100 U [facility] Comment on above: Performed By: #### 4 8065-7 #### VISHNU LEE ([id number]) [facility] ([facility]) [address] [place] [address] Nucleated RBC/100 WBC (Bld) [Ratio] 0.0 /100 WBCs Normal 0.0-0.0 [facility] Comment on above: Performed By: #### 4 8065-7 #### VISHNU LEE ([id number]) [facility] ([facility]) [address] [place] [address] Platelets (Bld) [#/Vol] 267 x10*3/uL Normal 150-450 [facility] Comment on above: Performed By: #### 4 8065-7 #### VISNHU VERONICAREJI ([id number]) [facility] ([facility]) [facility] [place] [address] RBC (Bld) [#/Vol] 3.53 x10*6/uL Low 4.50-5.90 [facility] Comment on above: Performed By: #### 4 8065-7 #### VISHNU MARTINREJI ([id number]) [facility] ([facility]) [address] [place] [address] WBC (Bld) [#/Vol] 14.9 x10*3/uL High 4.4-11.3 [facility] Comment on above: Performed By: #### 4 8065-7 #### VISHNU VERONICAREJI ([id number]) [facility] ([facility]) [address] [place] [address] CT ABDOMEN PELVIS W IV CONTR Darnell 09-27-2024 CT ABDOMEN PELVIS W IV CONTRAST Interpreted By: Pavel Blum, STUDY: CT ANGIO CHEST FOR PULMONARY EMBOLISM; CT ABDOMEN PELVIS W IV CONTRAST; 09/27/2024 12:36 am INDICATION: Signs/Symptoms:SOB, elevated D-dimer; Signs/Symptoms:Lower abdominal pain. COMPARISON: Chest CT 03/17/2023. ACCESSION NUMBER(S): [id number]; [id number] ORDERING CLINICIAN: MARCIO AHN TECHNIQUE: Helical data acquisition of the chest was obtained after administration of intravenous contrast as part of pulmonary CT angiography protocol. Subsequently CT abdomen pelvis was obtained in the portal venous phase. Axial contiguous images were reformatted in coronal and sagittal planes. Axial and coronal MIP images were created and reviewed. FINDINGS: POTENTIAL LIMITATIONS OF THE STUDY: Motion and mixing artifact which limits evaluation of the distal branch vessels. HEART AND VESSELS: No discrete filling defects within the main pulmonary artery or its branches. Main pulmonary artery and its branches are normal in caliber. The thoracic aorta is ectatic measuring 3.9 cellular at the level of pulmonary trunk similar to prior. There are moderate aortic valve atherosclerotic calcifications. [id number] coronary artery calcifications are seen.The study is not optimized for evaluation of coronary arteries. The cardiac chambers are not enlarged. No evidence of pericardial effusion. MEDIASTINUM AND BENNY, LOWER NECK AND AXILLA: The visualized thyroid gland is within normal limits. No evidence of thoracic lymphadenopathy by CT criteria. Esophagus appears within normal limits as seen. LUNGS AND AIRWAYS: The trachea and central airways are patent. No endobronchial lesion. There is subsegmental atelectasis in right middle lobe. There is no pleural effusion or pneumothorax. ABDOMEN: There is extensive retroperitoneal fat stranding visualized in the left upper quadrant suspicious for left retroperitoneal hematoma. There is aneurysm and marked irregularity of the abdominal aorta which starts just below the level of the renal arteries and extends caudally, measuring 8.0 cm transversely and 5.6 cm in AP dimension with surrounding retroperitoneal hematoma compatible with aneurysm rupture. Liver, spleen, and pancreas demonstrate normal size and enhancement. No radiopaque gallbladder calculi. No biliary dilatation. Mild cortical scarring of the left kidney. Kidneys otherwise demonstrate normal enhancement. No hydronephrosis or nephrolithiasis. Normal adrenals. Enlarged prostate measuring 5.2 cm transversely. Trabeculated bladder consistent with chronic bladder outlet obstruction. No bowel dilatation or bowel wall thickening. Small hiatal hernia. Normal appendix. Scattered sigmoid diverticulosis without diverticulitis. No lymphadenopathy. Small amount of hypodense free fluid in the dependent portion of the pelvis. No free air. CHEST WALL AND OSSEOUS STRUCTURES: There are no suspicious osseous lesions. There is osteopenia. Mild chronic compression deformities of T12 and T11 vertebral bodies, unchanged. IMPRESSION: 1. No evidence of pulmonary emboli. Subsegmental atelectasis in the right middle lobe with volume loss. No pleural effusion. Moderate aortic valve atherosclerotic calcifications and coronary artery atherosclerotic calcifications. Clinical correlation for bicuspid valve or aortic stenosis recommended. 2. Marked irregularity and outpouching of the infrarenal abdominal aorta measuring 8.0 x 5.2 cm axially with surrounding left retroperitoneal low-density hematoma compatible with infrarenal abdominal aortic aneurysm rupture. Small amount of low-density free fluid in the dependent portion of the pelvis. Vascular consultation recommended. 3. Prostatomegaly and trabeculated bladder compatible with bladder outlet obstruction. Pavel Blum discussed the significance and urgency of this critical finding by EPIC secure chat with MARCIO AHN on 09/27/2024 at 12:59 am. (-RCF-) Findings: See findings. Signed by: Pavel Blum 09/27/2024 1:06 AM Dictation workstation: [id number] [facility] CT ANGIO CHEST FOR PULMONARY EMBOLISMon 09-27-2024 CT ANGIO CHEST FOR PULMONARY EMBOLISM Interpreted By: Pavel Blum, STUDY: CT ANGIO CHEST FOR PULMONARY EMBOLISM; CT ABDOMEN PELVIS W IV CONTRAST; 09/27/2024 12:36 am INDICATION: Signs/Symptoms:SOB, elevated D-dimer; Signs/Symptoms:Lower abdominal pain. COMPARISON: Chest CT 03/17/2023. ACCESSION NUMBER(S): [id number]; [id number] ORDERING CLINICIAN: MARCIO AHN TECHNIQUE: Helical data acquisition of the chest was obtained after administration of intravenous contrast as part of pulmonary CT angiography protocol. Subsequently CT abdomen pelvis was obtained in the portal venous phase. Axial contiguous images were reformatted in coronal and sagittal planes. Axial and coronal MIP images were created and reviewed. FINDINGS: POTENTIAL LIMITATIONS OF THE STUDY: Motion and mixing artifact which limits evaluation of the distal branch vessels. HEART AND VESSELS: No discrete filling defects within the main pulmonary artery or its branches. Main pulmonary artery and its branches are normal in caliber. The thoracic aorta is ectatic measuring 3.9 cellular at the level of pulmonary trunk similar to prior. There are moderate aortic valve atherosclerotic calcifications. [id number] coronary artery calcifications are seen.The study is not optimized for evaluation of coronary arteries. The cardiac chambers are not enlarged. No evidence of pericardial effusion. MEDIASTINUM AND BENNY, LOWER NECK AND AXILLA: The visualized thyroid gland is within normal limits. No evidence of thoracic lymphadenopathy by CT criteria. Esophagus appears within normal limits as seen. LUNGS AND AIRWAYS: The trachea and central airways are patent. No endobronchial lesion. There is subsegmental atelectasis in right middle lobe. There is no pleural effusion or pneumothorax. ABDOMEN: There is extensive retroperitoneal fat stranding visualized in the left upper quadrant suspicious for left retroperitoneal hematoma. There is aneurysm and marked irregularity of the abdominal aorta which starts just below the level of the renal arteries and extends caudally, measuring 8.0 cm transversely and 5.6 cm in AP dimension with surrounding retroperitoneal hematoma compatible with aneurysm rupture. Liver, spleen, and pancreas demonstrate normal size and enhancement. No radiopaque gallbladder calculi. No biliary dilatation. Mild cortical scarring of the left kidney. Kidneys otherwise demonstrate normal enhancement. No hydronephrosis or nephrolithiasis. Normal adrenals. Enlarged prostate measuring 5.2 cm transversely. Trabeculated bladder consistent with chronic bladder outlet obstruction. No bowel dilatation or bowel wall thickening. Small hiatal hernia. Normal appendix. Scattered sigmoid diverticulosis without diverticulitis. No lymphadenopathy. Small amount of hypodense free fluid in the dependent portion of the pelvis. No free air. CHEST WALL AND OSSEOUS STRUCTURES: There are no suspicious osseous lesions. There is osteopenia. Mild chronic compression deformities of T12 and T11 vertebral bodies, unchanged. IMPRESSION: 1. No evidence of pulmonary emboli. Subsegmental atelectasis in the right middle lobe with volume loss. No pleural effusion. Moderate aortic valve atherosclerotic calcifications and coronary artery atherosclerotic calcifications. Clinical correlation for bicuspid valve or aortic stenosis recommended. 2. Marked irregularity and outpouching of the infrarenal abdominal aorta measuring 8.0 x 5.2 cm axially with surrounding left retroperitoneal low-density hematoma compatible with infrarenal abdominal aortic aneurysm rupture. Small amount of low-density free fluid in the dependent portion of the pelvis. Vascular consultation recommended. 3. Prostatomegaly and trabeculated bladder compatible with bladder outlet obstruction. Pavel Blum discussed the significance and urgency of this critical finding by EPIC secure chat with MARCIO AHN on 09/27/2024 at 12:59 am. (-RCF-) Findings: See findings. Signed by: Pavel Blum 09/27/2024 1:06 AM Dictation workstation: [id number] [facility] Calcium.ionizedon 09-27-2024 Calcium.ionized (Bld) [Moles/Vol] 1.04 mmol/L Low 1.1-1.33 [facility] Comment on above: Result Comment: The performance characteristics of ionized calcium testedin heparinized plasma or serum have been validated by [facility] [place] [facility] site where testing is performed.Testing on heparinized plasma or serum is not approved bythe FDA; however, such approval is not necessary. Performed By: #### 1 994-3 ####ANNETTE Castle ([id number])[facility] ([facility])[address] [place] [address] Calcium.ionized (Bld) [Moles/Vol] 1.02 mmol/L Low 1.1-1.33 [facility] Comment on above: Result Comment: The performance characteristics of ionized calcium testedin heparinized plasma or serum have been validated by theindividual laboratory site where testing is performed.Testing on heparinized plasma or serum is not approved bythe FDA; however, such approval is not necessary. Performed By: #### 1 994-3 ####ANNETTE Castle ([id number])[facility] ([facility])[address] [place] [address] FL FLUORO IMAGES NO CHARGEon 09-27-2024 FL FLUORO IMAGES NO CHARGE These images are not reportable by radiology and will not be interpreted by Radiologists. Normal [facility] Fibrinogenon 09-27-2024 Fibrinogen Coag (PPP) [Mass/Vol] 322 mg/dL Normal 200-400 [facility] Comment on above: Performed By: #### 3 255-7 ####ANNETTE Castle ([id number])[facility] ([facility])[address] [place] [address] Gas and Carbon monoxide and Electrolytes panel (BldA)on 09-27-2024 Anion gap 4 (BldA) [Moles/Vol] 11 mmo/L Normal 10-25 [facility] Comment on above: Performed By: #### 9 3685-6 ####ANNETTE Castle ([id number])[facility] ([facility])[address] [place] [address] Base excess Calc (Bld) [Moles/Vol] -0.3000 mmol/L Normal -2.0-3.0 [facility] Comment on above: Performed By: #### 9 3685-6 ####ANNETTE Castle ([id number])[facility] ([facility])[address] [place] [address] Calcium.ionized (BldA) [Moles/Vol] 1.09 mmol/L Low 1.10-1.33 [facility] Comment on above: Performed By: #### 9 3685-6 ####ANNETTE Castle ([id number])[facility] ([facility])[address] [place] [address] Chloride (BldA) [Moles/Vol] 105 mmol/L Normal 98-107 [facility] Comment on above: Performed By: #### 9 3685-6 ####ANNETTE Castle ([id number])[facility] ([facility])[address] [place] [address] CO2 (Bld) [Partial pressure] 37 mm Hg Low 38-42 [facility] Comment on above: Performed By: #### 9 5385-6 ####ANNETTE Castle ([id number])[facility] ([facility])[address] [place] [address] Glucose [Mass/Vol] 86 mg/dL Normal 74-99 [facility] Comment on above: Performed By: #### 9 6305-6 ####ANNETTE Castle ([id number])[facility] ([facility])[address] [place] [address] HCO3 (Bld) [Moles/Vol] 24.0 mmol/L Normal 22.0-26.0 [facility] Comment on above: Performed By: #### 9 4815-6 ####ANNETTE Castle ([id number])[facility] ([facility])[address] [place] [address] Hematocrit Est (Bld) [Volume fraction] 29.0 % Low 41.0-52.0 [facility] Comment on above: Performed By: #### 9 1175-6 ####ANNETTE Castle ([id number])[facility] ([facility])[address] [place] [address] Hemoglobin (Bld) [Mass/Vol] 9.6 g/dL Low 13.5-17.5 [facility] Comment on above: Performed By: #### 9 9385-6 ####ANNETTE Castle ([id number])[facility] ([facility])[address] [place] [address] Inhaled oxygen concentration 37 % Normal [facility] Comment on above: Performed By: #### 9 3685-6 ####ANNETTE Castle ([id number])[facility] ([facility])[address] [place] [address] Lactate (BldA) [Moles/Vol] 0.9 mmol/L Normal 0.4-2.0 [facility] Comment on above: Performed By: #### 9 3685-6 ####ANNETTE Castle ([id number])[facility] ([facility])[address] [place] [address]156 Oxygen (Bld) [Partial pressure] 64 mm Hg Low 85-95 [facility] Comment on above: Performed By: #### 9 3685-6 ####ANNETTE Castle ([id number])[facility] ([facility])[address] [place] [address]994 Oxyhemoglobin (BldA) [Mass fraction] 92.4 % Low 94.0-98.0 [facility] Comment on above: Performed By: #### 9 3685-6 ####ANNETTE Castle ([id number])[facility] ([facility])[address] [place] [address]695 pH (Bld) 7.42 [pH] Normal 7.38-7.42 [facility] Comment on above: Performed By: #### 9 3685-6 ####ANNETTE aCstle ([id number])[facility] ([facility])[address] [place] [address] Potassium (BldA) [Moles/Vol] 3.9 mmol/L Normal 3.5-5.3 [facility] Comment on above: Performed By: #### 9 3685-6 ####ANNETTE Castle ([id number])[facility] ([facility])[address] [place] [address]67[address] Sodium (BldA) [Moles/Vol] 136 mmol/L Normal 136-145 [facility] Comment on above: Performed By: #### 9 3685-6 ####ANNETTE Castle ([id number])[facility] ([facility])[address] [place] [address] Anion gap 4 (BldA) [Moles/Vol] 12 mmo/L Normal 10-25 [facility] Comment on above: Performed By: #### 9 3685-6 ####ANNETTE Castle ([id number])[facility] ([facility])[address] [place] [address] Base excess Calc (Bld) [Moles/Vol] -5.3000 mmol/L Low -2.0-3.0 [facility] Comment on above: Performed By: #### 9 3685-6 ####ANNETTE Castle ([id number])[facility] ([facility])[address] [place] [address] Calcium.ionized (BldA) [Moles/Vol] 1.06 mmol/L Low 1.10-1.33 [facility] Comment on above: Performed By: #### 9 3685-6 ####ANNETTE Castle ([id number])[facility] ([facility])[address] [place] [address] Chloride (BldA) [Moles/Vol] 105 mmol/L Normal 98-107 [facility] Comment on above: Performed By: #### 9 3685-6 ####ANNETTE Castle ([id number])[facility] [place])[address] [place] [address] CO2 (Bld) [Partial pressure] 41 mm Hg Normal 38-42 [facility] Comment on above: Performed By: #### 9 3685-6 ####ANNETTE Castle ([id number])[facility] ([facility] [place])[address] [place] [address] Glucose [Mass/Vol] 183 mg/dL High 74-99 [facility] Comment on above: Performed By: #### 9 3685-6 ####ANNETTE Castle ([id number])[facility] ([facility] [place])[address] [place] [address] HCO3 (Bld) [Moles/Vol] 20.6 mmol/L Low 22.0-26.0 [facility] Comment on above: Performed By: #### 9 3685-6 ####ANNETTE Castle ([id number])[facility] ([facility] [place])[address] [place] [address] Hematocrit Est (Bld) [Volume fraction] 26.0 % Low 41.0-52.0 [facility] Comment on above: Performed By: #### 9 3685-6 ####ANNETTE Castle ([id number])[facility] ([facility] [place])[address] [place] [address] Hemoglobin (Bld) [Mass/Vol] 8.5 g/dL Low 13.5-17.5 [facility] Comment on above: Performed By: #### 9 3685-6 ####ANNETTE Castle ([id number])[facility] ([facility] [place])[address] [place] [address] Inhaled oxygen concentration 52 % Normal [facility] Comment on above: Performed By: #### 9 3685-6 ####ANNETTE Castle ([id number])[facility] ([facility] [place])[address] [place] [address] Lactate (BldA) [Moles/Vol] 2.5 mmol/L High 0.4-2.0 [facility] Comment on above: Performed By: #### 9 3685-6 ####ANNETTE Castle ([id number])[facility] ([facility] [place])[address] [place] [address] Oxygen (Bld) [Partial pressure] 109 mm Hg High 85-95 [facility] Comment on above: Performed By: #### 9 3685-6 ####ANNETTE Castle ([id number])[facility] ([facility] [place])[address] [place] [address] Oxyhemoglobin (BldA) [Mass fraction] 96.8 % Normal 94.0-98.0 [facility] Comment on above: Performed By: #### 9 3685-6 ####ANNETTE Castle ([id number])[facility] ([facility] [place])[address] [place] [address] pH (Bld) 7.31 [pH] Low 7.38-7.42 [facility] Comment on above: Performed By: #### 9 3685-6 ####ANNETTE Castle ([id number])[facility] ([facility] [place])[address] [place] [address] Potassium (BldA) [Moles/Vol] 5.6 mmol/L High 3.5-5.3 [facility] Comment on above: Performed By: #### 9 3685-6 ####ANNETTE Castle ([id number])[facility] ([facility] [place])[address] [place] [address] Sodium (BldA) [Moles/Vol] 132 mmol/L Low 136-145 [facility] Comment on above: Performed By: #### 9 3685-6 ####ANNETTE Castle ([id number])[facility] ([facility] [place])[address] [place] [address] Anion gap 4 (BldA) [Moles/Vol] 10 mmo/L Normal 10-25 [facility] Comment on above: Performed By: #### 9 3685-6 ####ANNETTE Castle ([id number])[facility] ([facility] [place])[address] [place] [address] Base excess Calc (Bld) [Moles/Vol] -7.1000 mmol/L Low -2.0-3.0 [facility] Comment on above: Performed By: #### 9 3685-6 ####ANNETTE Castle ([id number])[facility] ([facility] [place])[address] [place] [address] Calcium.ionized (BldA) [Moles/Vol] 1.07 mmol/L Low 1.10-1.33 [facility] Comment on above: Performed By: #### 9 3685-6 ####ANNETTE Castle ([id number])[facility] ([facility] [place])[address] [place] [address] Chloride (BldA) [Moles/Vol] 106 mmol/L Normal 98-107 [facility] Comment on above: Performed By: #### 9 3685-6 ####ANNETTE Castle ([id number])[facility] ([facility] [place])[address] [place] [address] CO2 (Bld) [Partial pressure] 55 mm Hg High 38-42 [facility] Comment on above: Performed By: #### 9 3685-6 ####ANNETTE Castle ([id number])[facility] ([facility] [place])[address] [place] [address] Glucose [Mass/Vol] 180 mg/dL High 74-99 [facility] Comment on above: Performed By: #### 9 4565-6 ####ANNETTE Castle ([id number])[facility] ([facility] [place])[address] [place] [address] HCO3 (Bld) [Moles/Vol] 20.5 mmol/L Low 22.0-26.0 [facility] Comment on above: Performed By: #### 9 3685-6 ####ANNETTE Castle ([id number])[facility] ([facility] [place])[address] [place] [address] Hematocrit Est (Bld) [Volume fraction] 17.0 % Low 41.0-52.0 [facility] Comment on above: Performed By: #### 9 4085-6 ####ANNETTE Castle (48029)[facility] ([facility] [place])[address]132 [place] [address] Hemoglobin (Bld) [Mass/Vol] 5.6 g/dL Critically low 13.5-17.5 [facility] Comment on above: Performed By: #### 9 0075-6 ####ANNETTE Castle ([id number])[facility] ([facility] [place])[address] [place] [address] Inhaled oxygen concentration 40 % Normal [facility] Comment on above: Performed By: #### 9 3685-6 ####ANNETTE Castle ([id number])[facility] ([facility] [place])[address] [place] [address] Lactate (BldA) [Moles/Vol] 2.4 mmol/L High 0.4-2.0 [facility] Comment on above: Performed By: #### 9 3685-6 ####ANNETTE Castle ([id number])[facility] ([facility] [place])[address] [place] [address] Oxygen (Bld) [Partial pressure] 127 mm Hg High 85-95 [facility] Comment on above: Performed By: #### 9 3685-6 ####ANNETTE Castle ([id number])[facility] ([facility] [place])[address] [place] [address] Oxyhemoglobin (BldA) [Mass fraction] 97.8 % Normal 94.0-98.0 [facility] Comment on above: Performed By: #### 9 3685-6 ####ANNETTE Castle ([id number])[facility] ([facility] [place])[address] [place] [address] pH (Bld) 7.18 [pH] Critically low 7.38-7.42 [facility] Comment on above: Performed By: #### 9 3685-6 ####ANNETTE Castle ([id number])[facility] ([facility] [place])[address] [place] [address] Potassium (BldA) [Moles/Vol] 5.7 mmol/L High 3.5-5.3 [facility] Comment on above: Performed By: #### 9 3685-6 ####ANNETTE Castle ([id number])[facility] ([facility] [place])[address] [place] [address]67 Sodium (BldA) [Moles/Vol] 131 mmol/L Low 136-145 [facility] Comment on above: Performed By: #### 9 3685-6 ####ANNETTE Castle ([id number])[facility] ([facility] [place])[address] [place] [address] Anion gap 4 (BldA) [Moles/Vol] 9 mmo/L Low 10-25 [facility] Comment on above: Performed By: #### 9 3685-6 ####ANNETTE Castle (55843)[facility] ([facility] [place])[address] [place] [address] Base excess Calc (Bld) [Moles/Vol] -3.9000 mmol/L Low -2.0-3.0 [facility] Comment on above: Performed By: #### 9 3685-6 ####ANNETTE Castle (74225)[facility] ([facility] [place])[address] [place] [address]71 Calcium.ionized (BldA) [Moles/Vol] 1.17 mmol/L Normal 1.10-1.33 [facility] Comment on above: Performed By: #### 9 3685-6 ####ANNETTE Castle ([id number])[facility] ([facility] [place])[address] [place] [address]39[address] Chloride (BldA) [Moles/Vol] 107 mmol/L Normal 98-107 [facility] Comment on above: Performed By: #### 9 3685-6 ####ANNETTE Castle (92143)[facility] ([facility] [place])[address]95 [place] [address] CO2 (Bld) [Partial pressure] 34 mm Hg Low 38-42 [facility] Comment on above: Performed By: #### 9 3685-6 ####ANNETTE Castle ([id number])[facility] ([facility] [place])[address] [place] [address]30 Glucose [Mass/Vol] 124 mg/dL High 74-99 [facility] Comment on above: Performed By: #### 9 3685-6 ####ANNETTE Castle ([id number])[facility] ([facility] [place])[address] [place] [address] HCO3 (Bld) [Moles/Vol] 20.6 mmol/L Low 22.0-26.0 [facility] Comment on above: Performed By: #### 9 3685-6 ####ANNETTE Castle ([id number])[facility] ([facility] [place])[address]19 [place] [address] Hematocrit Est (Bld) [Volume fraction] 27.0 % Low 41.0-52.0 [facility] Comment on above: Performed By: #### 9 3685-6 ####ANNETTE Castle ([id number])[facility] ([facility] [place])[address]23 [place] [address] Hemoglobin (Bld) [Mass/Vol] 8.9 g/dL Low 13.5-17.5 [facility] Comment on above: Performed By: #### 9 9485-6 ####ANNETTE Castle ([id number])[facility] ([facility] [place])[address] [place] [address] Lactate (BldA) [Moles/Vol] 1.4 mmol/L Normal 0.4-2.0 [facility] Comment on above: Performed By: #### 9 3685-6 ####ANNETTE Castle (44077)[facility] ([facility] [place])[address] [place] [address] Oxygen (Bld) [Partial pressure] 131 mm Hg High 85-95 [facility] Comment on above: Performed By: #### 9 3685-6 ####ANNETTE Castle (80447)[facility] ([facility] [place])[address] [place] [address] Oxyhemoglobin (BldA) [Mass fraction] 98.0 % Normal 94.0-98.0 [facility] Comment on above: Performed By: #### 9 3685-6 ####ANNETTE Castle ([id number])[facility] ([facility] [place])[address] [place] [address] pH (Bld) 7.39 [pH] Normal 7.38-7.42 [facility] Comment on above: Performed By: #### 9 3685-6 ####ANNETTE Castle (55850)[facility] ([facility] [place])[address]164 [place] [address] Potassium (BldA) [Moles/Vol] 4.6 mmol/L Normal 3.5-5.3 [facility] Comment on above: Performed By: #### 9 3685-6 ####ANNETTE Castle ([id number])[facility] ([facility] [place])[address]99 [place] [address] Sodium (BldA) [Moles/Vol] 132 mmol/L Low 136-145 [facility] Comment on above: Performed By: #### 9 3685-6 ####ANNETTE Castle (70298)[facility] ([facility] [place])[address]016 [place] [address] Glucose Test strip manual (B ld) [Mass/Vol]on 09-27-2024 Glucose [Mass/Vol] 105 mg/dL High 74-99 [facility] Comment on above: Performed By: #### 2 341-6 ####ANNETTE Castle (11149)[facility] ([facility] [place])[address] [place] [address] Glucose [Mass/Vol] 110 mg/dL High 74-99 [facility] Comment on above: Performed By: #### 2 341-6 ####ANNETTE Castle (29943)[facility] ([facility] [place])[address] [place] [address] Lactateon 09-27-2024 Lactate [Moles/Vol] 3.5 mmol/L High 0.4 - 2. 0 mmol/L [facility] Lactate [Moles/Vol] 3.5 mmol/L High 0.4-2.0 [facility] Comment on above: Order Comment: The V TE Exclusion D-Dimer assay is reported in ng/mL Fibrinogen Equivalent Units (FEU). Per assistant child care teacher's instructions for use, a value of less than 500 ng/mL (FEU) may help to exclude DVT or PE in outpatients when the assay is used with a clinical pretest probability assessment.(AEMR must utilize and document eCalc 'Wells Score Deep Vein Thrombosis Risk' for DVT exclusion only. Emergency Department should utilize Guidelines for Emergency Department Use of the VTE Exclusion D-Dimer and Clinical Pretest probability assessment model for DVT or PE exclusion.) Performed By: #### 4 8065-7 #### VISHNU LEE ([id number]) [facility] ([facility]) [address] [place] [address] Lactate [Moles/Vol]on 2024 Interpretation and review of laboratory results Abnormal [facility] Venipuncture immediately after or during the administration of Metamizole may lead to falsely low results. Testing should be performed immediately prior to Metamizole dosing. [facility] Magnesiumon 09-27-2024 Magnesium [Mass/Vol] 2.53 mg/dL High 1.60-2.40 [facility] Comment on above: Performed By: #### 1 9123-9 ####ANNETTE Castle ([id number])[facility] ([facility] [place])[address] [place] [address] Magnesium [Mass/Vol] 1.74 mg/dL Normal 1.60-2.40 [facility] Comment on above: Performed By: #### 1 9123-9 ####ANNETTE Castle ([id number])[facility] ([facility] [place])[address] [place] [address] Natriuretic peptide B [Mass/ Vol]on 09-27-2024 Interpretation and review of laboratory results Normal [facility] Natriuretic peptide B (Bld) [Mass/Vol] 44 pg/mL 0 - 99 pg/mL [facility] <100 pg/mL - Heart failure unlikely 100-299 pg/mL - Intermediate probability of acute heart failure exacerbation. Correlate with clinical context and patient history. >=300 pg/mL - Heart Failure likely. Correlate with clinical context and patient history. BNP testing is performed using different testing methodology at [facility] than at other university [facility]. Direct result comparisons should only be made within the same method. [facility] No Panel Informationon 09-27 1. No evidence of pulmonary emboli. Subsegmental atelectasis in the right middle lobe with volume loss. No pleural effusion. Moderate aortic valve atherosclerotic calcifications and coronary artery atherosclerotic calcifications. Clinical correlation for bicuspid valve or aortic stenosis recommended. 2. Marked irregularity and outpouching of the infrarenal abdominal aorta measuring 8.0 x 5.2 cm axially with surrounding left retroperitoneal low-density hematoma compatible with infrarenal abdominal aortic aneurysm rupture. Small amount of low-density free fluid in the dependent portion of the pelvis. Vascular consultation recommended. 3. Prostatomegaly and trabeculated bladder compatible with bladder outlet obstruction. Pavel Blum discussed the significance and urgency of this critical finding by EPIC secure chat with MARCIO AHN on 09/27/2024 at 12:59 am. (-RCF-) Findings: See findings. Signed by: Pavel Blum 09/27/2024 1:06 AM Dictation workstation: [id number] Interpreted By: Pavel Blum, STUDY: CT ANGIO CHEST FOR PULMONARY EMBOLISM; CT ABDOMEN PELVIS W IV CONTRAST; 09/27/2024 12:36 am INDICATION: Signs/Symptoms:SOB, elevated D-dimer; Signs/Symptoms:Lower abdominal pain. COMPARISON: Chest CT 03/17/2023. ACCESSION NUMBER(S): [id number]; [id number] ORDERING CLINICIAN: MARCIO AHN TECHNIQUE: Helical data acquisition of the chest was obtained after administration of intravenous contrast as part of pulmonary CT angiography protocol. Subsequently CT abdomen pelvis was obtained in the portal venous phase. Axial contiguous images were reformatted in coronal and sagittal planes. Axial and coronal MIP images were created and reviewed. FINDINGS: POTENTIAL LIMITATIONS OF THE STUDY: Motion and mixing artifact which limits evaluation of the distal branch vessels. HEART AND VESSELS: No discrete filling defects within the main pulmonary artery or its branches. Main pulmonary artery and its branches are normal in caliber. The thoracic aorta is ectatic measuring 3.9 cellular at the level of pulmonary trunk similar to prior. There are moderate aortic valve atherosclerotic calcifications. Fonv-co-uxmitihp coronary artery calcifications are seen.The study is not optimized for evaluation of coronary arteries. The cardiac chambers are not enlarged. No evidence of pericardial effusion. MEDIASTINUM AND BENNY, LOWER NECK AND AXILLA: The visualized thyroid gland is within normal limits. No evidence of thoracic lymphadenopathy by CT criteria. Esophagus appears within normal limits as seen. LUNGS AND AIRWAYS: The trachea and central airways are patent. No endobronchial lesion. There is subsegmental atelectasis in right middle lobe. There is no pleural effusion or pneumothorax. ABDOMEN: There is extensive retroperitoneal fat stranding visualized in the left upper quadrant suspicious for left retroperitoneal hematoma. There is aneurysm and marked irregularity of the abdominal aorta which starts just below the level of the renal arteries and extends caudally, measuring 8.0 cm transversely and 5.6 cm in AP dimension with surrounding retroperitoneal hematoma compatible with aneurysm rupture. Liver, spleen, and pancreas demonstrate normal size and enhancement. No radiopaque gallbladder calculi. No biliary dilatation. Mild cortical scarring of the left kidney. Kidneys otherwise demonstrate normal enhancement. No hydronephrosis or nephrolithiasis. Normal adrenals. Enlarged prostate measuring 5.2 cm transversely. Trabeculated bladder consistent with chronic bladder outlet obstruction. No bowel dilatation or bowel wall thickening. Small hiatal hernia. Normal appendix. Scattered sigmoid diverticulosis without diverticulitis. No lymphadenopathy. Small amount of hypodense free fluid in the dependent portion of the pelvis. No free air. CHEST WALL AND OSSEOUS STRUCTURES: There are no suspicious osseous lesions. There is osteopenia. Mild chronic compression deformities of T12 and T11 vertebral bodies, unchanged. [facility] Work Phone: Interpretation and review of laboratory results Abnormal [facility] Radiology Study observation (narrative) [facility] Work Phone: PT and aPTT panel Coag (PPP) on 09-27-2024 aPTT Coag (PPP) [Time] 27 s Normal 26-36 [facility] Comment on above: Order Comment: The A PTT is no longer used for monitoring Unfractionated Heparin Therapy. For monitoring Heparin Therapy, use the Heparin Assay. Performed By: #### 3 4529-8 ####ANNETTE Castle ([id number])[facility] ([facility] [place])[address] [place] [address] INR Coag (PPP) [Relative time] 1.6 High 0.9-1.1 [facility] Comment on above: Order Comment: The A PTT is no longer used for monitoring Unfractionated Heparin Therapy. For monitoring Heparin Therapy, use the Heparin Assay. Performed By: #### 3 4529-8 ####ANNETTE Castle ([id number])[facility] ([facility] [place])[address] [place] [address]20 PT Coag (PPP) [Time] 17.4 s High 9.8-12.4 [facility] Comment on above: Order Comment: The A PTT is no longer used for monitoring Unfractionated Heparin Therapy. For monitoring Heparin Therapy, use the Heparin Assay. Performed By: #### 3 4529-8 ####ANNETTE Castle ([id number])[facility] ([facility] [place])[address] [place] [address] 645[address] aPTT Coag (PPP) [Time] 28 s Normal 26-36 [facility] Comment on above: Order Comment: The A PTT is no longer used for monitoring Unfractionated Heparin Therapy. For monitoring Heparin Therapy, use the Heparin Assay. Performed By: #### 3 4529-8 ####ANNETTE Castle ([id number])[facility] ([facility] [place])[address] [place] [address] 99683 INR Coag (PPP) [Relative time] 1.8 High 0.9-1.1 [facility] Comment on above: Order Comment: The A PTT is no longer used for monitoring Unfractionated Heparin Therapy. For monitoring Heparin Therapy, use the Heparin Assay. Performed By: #### 3 4529-8 ####ANNETTE Castle ([id number])[facility] ([facility])[address] [place] [address] PT Coag (PPP) [Time] 20.3 s High 9.8-12.4 [facility] Comment on above: Order Comment: The A PTT is no longer used for monitoring Unfractionated Heparin Therapy. For monitoring Heparin Therapy, use the Heparin Assay. Performed By: #### 3 4529-8 ####ANNETTE RAMSEYTZVISHNU Castle ([id number])[facility] ([facility])[address] [place] [address] Renal function 2000 panelon 09-27-2024 Albumin BCP dye [Mass/Vol] 3.4 g/dL Normal 3.4-5.0 [facility] Comment on above: Performed By: #### 2 4362-6 ####ANNETTE Castle ([id number])[facility] ([facility])[address] [place] [address] Anion gap [Moles/Vol] 14 mmol/L Normal 10-20 [facility] Comment on above: Performed By: #### 2 4362-6 ####ANNETTE Castle ([id number])[facility] ([facility] [place])[address] [place] [address] Calcium [Mass/Vol] 8.0 mg/dL Low 8.6-10.6 [facility] Comment on above: Performed By: #### 2 4362-6 ####ANNETTE Castle ([id number])[facility] ([facility] [place])[address] [place] [address] Chloride [Moles/Vol] 103 mmol/L Normal 98-107 [facility] Comment on above: Performed By: #### 2 4362-6 ####ANNETTE GARCIA L ([id number])[facility] ([facility])[address] [place] [address] CO2 [Moles/Vol] 25 mmol/L Normal 21-32 [facility] Comment on above: Performed By: #### 2 4362-6 ####ANNETTE GARCIA L ([id number])[facility] ([facility])[address] [place] [address] Creatinine [Mass/Vol] 1.32 mg/dL High 0.50-1.30 [facility] Comment on above: Performed By: #### 2 4362-6 ####ANNETTE Castle ([id number])[facility] ([facility])[address] [place] [address] Glomerular filtration rate 56 mL/min/1.73m*2 Low >60 [facility] Comment on above: Result Comment: Calc ulations of estimated GFR are performed using the 2020 CKD-EPI Study Refit equation without the race variable for the IDMS-Traceable creatinine methods.https://jasn.asnjournals.org/content// ASN.5824647346 Performed By: #### 2 4362-6 ####ANNETTE Castle ([id number])[facility] ([facility])[address] [place] [address] Glucose [Mass/Vol] 90 mg/dL Normal 74-99 [facility] Comment on above: Performed By: #### 2 4362-6 ####ANNETTE GARCIA L ([id number])[facility] ([facility])[address] [place] [address] Phosphate [Mass/Vol] 2.8 mg/dL Normal 2.5-4.9 [facility] Comment on above: Performed By: #### 2 4362-6 ####ANNETTE GARCIA L ([id number])[facility] ([facility])[address] [place] [address] Potassium [Moles/Vol] 3.9 mmol/L Normal 3.5-5.3 [facility] Comment on above: Performed By: #### 2 4362-6 ####ANNETTE GARCIA L ([id number])[facility] ([facility])[address] [place] [address] Sodium [Moles/Vol] 138 mmol/L Normal 136-145 [facility] Comment on above: Performed By: #### 2 4362-6 ####ANNETTE GARCIA L ([id number])[facility] ([facility])[address] [place] [address] Urea nitrogen [Mass/Vol] 24 mg/dL High 6-23 [facility] Comment on above: Performed By: #### 2 4362-6 ####ANNETTE YEBOAHMORENATE L ([id number])[facility] ([facility])[address] [place] [address] Albumin BCP dye [Mass/Vol] 2.6 g/dL Low 3.4-5.0 [facility] Comment on above: Performed By: #### 2 4362-6 ####ANNETTE Castle ([id number])[facility] ([facility])[address] [place] [address] Anion gap [Moles/Vol] 13 mmol/L Normal 10-20 [facility] Comment on above: Performed By: #### 2 4362-6 ####ANNETTE Castle ([id number])[facility] ([facility])[address] [place] [address] Calcium [Mass/Vol] 7.3 mg/dL Low 8.6-10.6 [facility] Comment on above: Performed By: #### 2 4362-6 ####ANNETTE Castle ([id number])[facility] ([facility])[address] [place] [address] Chloride [Moles/Vol] 105 mmol/L Normal 98-107 [facility] Comment on above: Performed By: #### 2 4362-6 ####ANNETTE Castle ([id number])[facility] ([facility])[address] [place] [address] CO2 [Moles/Vol] 22 mmol/L Normal 21-32 [facility] Comment on above: Performed By: #### 2 4362-6 ####ANNETTE Castle ([id number])[facility] ([facility])[address] [place] [address] Creatinine [Mass/Vol] 1.49 mg/dL High 0.50-1.30 [facility] Comment on above: Performed By: #### 2 4362-6 ####ANNETTE Castle ([id number])[facility] ([facility])[address] [place] [address] Glomerular filtration rate 49 mL/min/1.73m*2 Low >60 [facility] Comment on above: Result Comment: Calc ulations of estimated GFR are performed using the 2020 CKD-EPI Study Refit equation without the race variable for the IDMS-Traceable creatinine methods.https://jasn.asnjournals.org/content// ASN.4347584834 Performed By: #### 2 4362-6 ####ANNETTE Castle ([id number])[facility] ([facility])[address] [place] [address] Glucose [Mass/Vol] 173 mg/dL High 74-99 [facility] Comment on above: Performed By: #### 2 4362-6 ####ANNETTE Castle ([id number])[facility] ([facility])[address] [place] [address] Phosphate [Mass/Vol] 5.0 mg/dL High 2.5-4.9 [facility] Comment on above: Performed By: #### 2 4362-6 ####ANNETTE GARCIA L ([id number])[facility] ([facility])[address] [place] [address] Potassium [Moles/Vol] 5.3 mmol/L Normal 3.5-5.3 [facility] Comment on above: Performed By: #### 2 4362-6 ####ANNETTE GARCIA L ([id number])[facility] ([facility])[address] [place] [address] Sodium [Moles/Vol] 135 mmol/L Low 136-145 [facility] Comment on above: Performed By: #### 2 4362-6 ####ANNETTE GARCIA L ([id number])[facility] ([facility])[address] [place] [address] Urea nitrogen [Mass/Vol] 25 mg/dL High 6-23 [facility] Comment on above: Performed By: #### 2 4362-6 ####ANNETTE RAMSEYTZVISHNU L ([id number])[facility] ([facility])[address] [facility] [address] TRANSTHORACIC ECHO (TTE) COM PLETEon 09-27-2024 TRANSTHORACIC ECHO (TTE) COMPLETE Normal [facility] Tropinin I.cardiac panel Hig h sensitivity methodon 09-27-2024 Interpretation and review of laboratory results Normal [facility] Less than 99th percentile of normal range cutoff- Female and children under 18 years old <14 ng/L; Male <21 ng/L: Negative Repeat testing should be performed if clinically indicated. Female and children under 18 years old 14-50 ng/L; Male 21-50 ng/L: Consistent with possible cardiac damage and possible increased clinical risk. Serial measurements may help to assess extent of myocardial damage. >50 ng/L: Consistent with cardiac damage, increased clinical risk and myocardial infarction. Serial measurements may help assess extent of myocardial damage. NOTE: Children less than 1 year old may have higher baseline troponin levels and results should be interpreted in conjunction with the overall clinical context. NOTE: Troponin I testing is performed using a different testing methodology at [facility] than at other [facility]. Direct result comparisons should only be made within the same method. [facility] Interpretation and review of laboratory results Normal [facility] Less than 99th percentile of normal range cutoff- Female and children under 18 years old <14 ng/L; Male <21 ng/L: Negative Repeat testing should be performed if clinically indicated. Female and children under 18 years old 14-50 ng/L; Male 21-50 ng/L: Consistent with possible cardiac damage and possible increased clinical risk. Serial measurements may help to assess extent of myocardial damage. >50 ng/L: Consistent with cardiac damage, increased clinical risk and myocardial infarction. Serial measurements may help assess extent of myocardial damage. NOTE: Children less than 1 year old may have higher baseline troponin levels and results should be interpreted in conjunction with the overall clinical context. NOTE: Troponin I testing is performed using a different testing methodology at [facility] than at other [facility]. Direct result comparisons should only be made within the same method. [facility] Troponin I, High Sensitivity , Initialon 09-27-2024 Tropinin I.cardiac panel High sensitivity method 12 ng/L 0 - 20 ng/L [facility] Troponin I.cardiac panelon 0 09-27-2024 Tropinin I.cardiac panel High sensitivity method 11 ng/L Normal 0-20 [facility] Comment on above: Order Comment: The V TE Exclusion D-Dimer assay is reported in ng/mL Fibrinogen Equivalent Units (FEU). Per assistant child care teacher's instructions for use, a value of less than 500 ng/mL (FEU) may help to exclude DVT or PE in outpatients when the assay is used with a clinical pretest probability assessment.(AEMR must utilize and document eCalc 'Wells Score Deep Vein Thrombosis Risk' for DVT exclusion only. Emergency Department should utilize Guidelines for Emergency Department Use of the VTE Exclusion D-Dimer and Clinical Pretest probability assessment model for DVT or PE exclusion.) Performed By: #### 4 8065-7 #### MARES JESUS ([id number]) [facility] ([facility]) [address] [place] [address] Troponin, High Sensitivity, 1 Houron 09-27-2024 Tropinin I.cardiac panel High sensitivity method 11 ng/L 0 - 20 ng/L [facility] Urinalysis complete W Reflex Culture panel (U)on 09-27-2024 Appearance (U) Turbid Abnormal Clear [facility] Bilirubin (U) [Mass/Vol] Negative NEGATIVE mg/dL [facility] Color (U) Yellow Light-Yellow, Yellow, Dark-Yellow [facility] Glucose Auto test strip (U) [Mass/Vol] Normal Normal mg/dL [facility] Ketones (U) [Mass/Vol] Negative NEGAT SRUTHI mg/dL [facility] Leukocyte esterase Auto test strip Ql (U) 25 Willow/uL Abnormal NEGATIVE [facility] Nitrite Auto test strip Ql (U) Negative NEGATIVE [facility] pH (U) 6.0 [pH] 5.0, 5.5, 6.0, 6.5, 7.0, 7.5, 8.0 [facility] Protein (U) [Mass/Vol] 10 (TRACE) NEGAT SRUTHI, 10 (TRACE), 20 (TRACE) mg/dL [facility] RBC (U) [#/Vol] Negative NEGATIVE mg/dL [facility] Specific gravity (U) [Rel density] 1.025 1.005 - 1.035 [facility] Urobilinogen (U) [Mass/Vol] Normal Normal mg/dL [facility] Appearance (U) Turbid Normal Clear [facility] Comment on above: Performed By: #### 5 8077-9 #### VISHNU LEE ([id number]) [facility] ([facility]) [address] [place] [address] Bilirubin (U) [Mass/Vol] Negative Normal NEGATIVE [facility] Comment on above: Performed By: #### 5 8077-9 #### VISHNU LEE ([id number]) [facility] ([facility]) [address] [place] [address] Color (U) Yellow Normal Light-Yellow, Yellow, Dark-Yellow [facility] Comment on above: Performed By: #### 5 8077-9 #### VISHNU LEE ([id number]) [facility] ([facility]) [address] [place] [address] Glucose Auto test strip (U) [Mass/Vol] Normal Normal Normal [facility] Comment on above: Performed By: #### 5 8077-9 #### VISHNU LEE ([id number]) [facility] ([facility]) [address] [place] [address] Ketones (U) [Mass/Vol] Negative Normal NEGATIVE [facility] Comment on above: Performed By: #### 5 8077-9 #### VISHNU LEE ([id number]) [facility] ([facility]) [address] [place] [address] Leukocyte esterase Auto test strip Ql (U) 25 Willow/uL Abnormal NEGATIVE [facility] Comment on above: Performed By: #### 5 8077-9 #### VISHNU LEE ([id number]) [facility] ([facility]) [address] [place] [address] Nitrite Auto test strip Ql (U) Negative Normal NEGATIVE [facility] Comment on above: Performed By: #### 5 8077-9 #### VISHNU LEE ([id number]) [facility] ([facility]) [address] [place] [address] pH (U) 6.0 [pH] Normal 5.0, 5.5, 6.0, 6.5, 7.0, 7.5, 8.0 [facility] Comment on above: Performed By: #### 5 8077-9 #### VISHNU LEE ([id number]) [facility] ([facility]) [address] [place] [address] Protein (U) [Mass/Vol] 10 (TRACE) Normal NEGAT SRUTHI, 10 (TRACE), 20 (TRACE) [facility] Comment on above: Performed By: #### 5 8077-9 #### VISHNU LEE ([id number]) [facility] ([facility]) [address] [place] [address] RBC (U) [#/Vol] Negative Normal NEGATIVE [facility] Comment on above: Performed By: #### 5 8077-9 #### VISHNU LEE ([id number]) [facility] ([facility]) [address] [place] [address] Specific gravity (U) [Rel density] 1.025 Normal 1.005-1.035 [facility] Comment on above: Performed By: #### 5 8077-9 #### VISHNU LEE ([id number]) [facility] ([facility]) [address] [place] [address] Urobilinogen (U) [Mass/Vol] Normal Normal Normal [facility] Comment on above: Performed By: #### 5 8077-9 #### VISHNU LEE ([id number]) [facility] ([facility]) [address] [place] [address] Urinalysis microscopic panel Auto Ql (U)on 09-27-2024 Bacteria Auto (Urine sed) [#/Area] 1+ Abnormal NONE SEEN /HPF [facility] Crystals.amorphous Computer assisted (U) [#/Area] 1+ NONE, 1+, 2+ /HPF [facility] Hyaline casts Auto (Urine sed) [#/Area] OCCASIONAL Abnormal NONE /LPF [facility] Mucus Auto (Urine sed) [#/Area] FEW Reference range not established. /LPF [facility] RBC Auto (Urine sed) [#/Area] NONE NONE, 1-2, 3-5 /HPF [facility] WBC Auto (Urine sed) [#/Area] 1-5 1-5, NONE /HPF [facility] Bacteria Auto (Urine sed) [#/Area] 1+ /HPF Abnormal NONE SEEN [facility] Comment on above: Performed By: #### 4 8065-7 #### VISHNU LEE ([id number]) [facility] ([facility]) [address] [place] [address] Crystals.amorphous Computer assisted (U) [#/Area] 1+ /HPF Normal NONE, 1+, 2+ [facility] Comment on above: Performed By: #### 4 8065-7 #### VISHNU LEE ([id number]) [facility] ([facility]) [address] [place] [address] Hyaline casts Auto (Urine sed) [#/Area] OCCASIONAL Abnormal NONE [facility] Comment on above: Performed By: #### 4 8065-7 #### VISHNU LEE ([id number]) [facility] ([facility]) [address] [place] [address] Mucus Auto (Urine sed) [#/Area] FEW Normal Reference range not established. [facility] Comment on above: Performed By: #### 4 8065-7 #### VISHNU LEE ([id number]) [facility] ([facility]) [address] [place] [address] RBC Auto (Urine sed) [#/Area] NONE Normal NONE, 1-2, 3-5 [facility] Comment on above: Performed By: #### 4 8065-7 #### VISHNU LEE ([id number]) [facility] ([facility]) [address] [place] [address] WBC Auto (Urine sed) [#/Area] 1-5 Normal 1-5, NONE [facility] Comment on above: Performed By: #### 4 8065-7 #### VISHNU LEE ([id number]) [facility] ([facility]) [address] [place] [address] VERAB/VERIFY ABORHon 025 ABO group Nom (Bld) A Normal [facility] Comment on above: Performed By: #### V ERAB ####ANNETTE Castle ([id number])[facility] ([facility])[address] [place] [address] D Ag Ql (Bld) Positive [facility] Comment on above: Performed By: #### V ERAB ####ANNETTE Castle ([id number])[facility] ([facility])[address] [place] [facility] [address] ABO group Nom (Bld) A Normal [facility] Comment on above: Order Comment: The V TE Exclusion D-Dimer assay is reported in ng/mL Fibrinogen Equivalent Units (FEU). Per assistant child care teacher's instructions for use, a value of less than 500 ng/mL (FEU) may help to exclude DVT or PE in outpatients when the assay is used with a clinical pretest probability assessment.(AEMR must utilize and document eCalc 'Wells Score Deep Vein Thrombosis Risk' for DVT exclusion only. Emergency Department should utilize Guidelines for Emergency Department Use of the VTE Exclusion D-Dimer and Clinical Pretest probability assessment model for DVT or PE exclusion.) Performed By: #### 4 8065-7 #### VISHNU LEE ([id number]) [facility] ([facility]) [address] [place] [address] D Ag Ql (Bld) Positive [facility] Comment on above: Order Comment: The V TE Exclusion D-Dimer assay is reported in ng/mL Fibrinogen Equivalent Units (FEU). Per assistant child care teacher's instructions for use, a value of less than 500 ng/mL (FEU) may help to exclude DVT or PE in outpatients when the assay is used with a clinical pretest probability assessment.(AEMR must utilize and document eCalc 'Wells Score Deep Vein Thrombosis Risk' for DVT exclusion only. Emergency Department should utilize Guidelines for Emergency Department Use of the VTE Exclusion D-Dimer and Clinical Pretest probability assessment model for DVT or PE exclusion.) Performed By: #### 4 8065-7 #### VISHNU LEE ([id number]) [facility] ([facility]) [address] [place] [address] VERIFY ABO/Rh Group Teston 0 09-27-2024 ABO group Nom (Bld) A [facility] D Ag Ql (Bld) Positive [facility] XR ABDOMEN 1 VIEWon 09-28-19 25 XR ABDOMEN 1 VIEW Normal [facility] XR Chest Single viewon 09-27 1. No evidence of acute cardiopulmonary process. Signed by: Pavel Blum 09/27/2024 12:10 AM Dictation workstation: [employer] [id number] Interpreted By: Pavel Blum, STUDY: XR CHEST 1 VIEW; 09/26/2024 11:26 pm INDICATION: Signs/Symptoms:SOB. COMPARISON: Chest radiograph 03/17/2023. ACCESSION NUMBER(S): [id number] ORDERING CLINICIAN: MARCIO AHN FINDINGS: CARDIOMEDIASTINAL SILHOUETTE: Cardiomediastinal silhouette is normal in size and configuration. LUNGS/PLEURA: Unchanged calcified granuloma in the right upper lobe. There are no consolidations.There are no pleural effusions. There is no demonstrated pneumothorax. BONES: No evidence of acute osseous abnormality. [facility] MMODAL Pavel Blum, DO - 09/27/2024 Interpreted By: Pavel Blum, STUDY: XR CHEST 1 VIEW; 09/26/2024 11:26 pm INDICATION: Signs/Symptoms:SOB. COMPARISON: Chest radiograph 03/17/2023. ACCESSION NUMBER(S): [id number] ORDERING CLINICIAN: MARCIO AHN FINDINGS: CARDIOMEDIASTINAL SILHOUETTE: Cardiomediastinal silhouette is normal in size and configuration. LUNGS/PLEURA: Unchanged calcified granuloma in the right upper lobe. There are no consolidations.There are no pleural effusions. There is no demonstrated pneumothorax. BONES: No evidence of acute osseous abnormality. IMPRESSION: 1. No evidence of acute cardiopulmonary process. Signed by: Pavel Blum 09/27/2024 12:10 AM Dictation workstation: [id number] [facility] Work Phone: XR Chest Single viewOrdered By: Pavel Blum on 09-27-2024 [facility] Work Phone: CBC W Auto Differential pane l (Bld)on 09-26-2024 Basophils (Bld) [#/Vol] 0.04 10*3/uL [facility] Basophils/100 WBC (Bld) 0.3 % 0.0 - 2.0 % [facility] Eosinophils (Bld) [#/Vol] 0.07 10*3/uL [facility] Eosinophils/100 WBC (Bld) 0.5 % 0.0 - 6.0 % [facility] Erythrocyte distribution width (RBC) [Ratio] 13.3 % 11.5 - 14.5 % [facility] Hematocrit (Bld) [Volume fraction] 37.5 % Low 41.0 - 52.0 % [facility] Hemoglobin (Bld) [Mass/Vol] 11.7 g/dL Low 13.5 - 17.5 g/dL [facility] Immature granulocytes (Bld) [#/Vol] 0.16 10*3/uL [facility] Immature granulocytes/100 WBC (Bld) 1.1 % High 0.0 - 0.9 % [facility] Comment on above: Immature Granulocyte Count (IG) includes promyelocytes, myelocytes and metamyelocytes but does not include bands. Percent differential counts (%) should be interpreted in the context of the absolute cell counts (cells/UL). Interpretation and review of laboratory results Abnormal [facility] Lymphocytes (Bld) [#/Vol] 1.24 10*3/uL [facility] Lymphocytes/100 WBC (Bld) 8.2 % 13.0 - 44.0 % [facility] MCH (RBC) [Entitic mass] 29.6 pg 26.0 - 34.0 pg [facility] MCHC (RBC) [Mass/Vol] 31.2 g/dL Low 32.0 - 36.0 g/dL [facility] MCV (RBC) [Entitic vol] 95 fL 80 - 100 fL [facility] Monocytes (Bld) [#/Vol] 1.44 10*3/uL High [facility] Monocytes/100 WBC (Bld) 9.5 % 2.0 - 10.0 % [facility] Neutrophils (Bld) [#/Vol] 12.18 10*3/uL High [facility] Comment on above: Percent differential counts (%) should be interpreted in the context of the absolute cell counts (cells/uL). Neutrophils/100 WBC (Bld) 80.4 % 40.0 - 80.0 % [facility] Nucleated RBC/100 WBC (Bld) [Ratio] 0.0 % [facility] Platelets (Bld) [#/Vol] 290 10*3/uL [facility] RBC (Bld) [#/Vol] 3.95 10*6/uL Low [facility] WBC (Bld) [#/Vol] 15.1 10*3/uL [facility] Basophils (Bld) [#/Vol] 0.04 x10*3/uL Normal 0.00-0.10 [facility] Comment on above: Performed By: #### 5 7021-8 #### VISHNU LEE ([id number]) [facility] ([facility]) [address] [place] [address] Basophils/100 WBC (Bld) 0.3 % Normal 0.0-2.0 U [facility] Comment on above: Performed By: #### 5 7021-8 #### VISHNU LEE ([id number]) [facility] ([facility]) [address] [place] [address] Eosinophils (Bld) [#/Vol] 0.07 x10*3/uL Normal 0.00-0.40 [facility] Comment on above: Performed By: #### 5 7021-8 #### VISHNU LEE ([id number]) [facility] ([facility]) [address] [place] [address] 05962 Eosinophils/100 WBC (Bld) 0.5 % Normal 0.0-6.0 [facility] Comment on above: Performed By: #### 5 7021-8 #### VISHNU LEE ([id number]) [facility] ([facility]) [address] [place] [address] 57261 Erythrocyte distribution width (RBC) [Ratio] 13.3 % Normal 11.5-14.5 [facility] Comment on above: Performed By: #### 5 7021-8 #### VISHNU LEE ([id number]) [facility] ([facility]) [address] [place] [address]74 Hematocrit (Bld) [Volume fraction] 37.5 % Low 41.0-52.0 [facility] Comment on above: Performed By: #### 5 7021-8 #### VISHNU ELE ([id number]) [facility] ([facility]) [address] [place] [address] 25594 Hemoglobin (Bld) [Mass/Vol] 11.7 g/dL Low 13.5-17.5 [facility] Comment on above: Performed By: #### 5 7021-8 #### VISHNU LEE ([id number]) [facility] ([facility]) [address] [place] [address] 21139 Immature granulocytes (Bld) [#/Vol] 0.16 x10*3/uL Normal 0.00-0.50 [facility] Comment on above: Performed By: #### 5 7021-8 #### VISHNU LEE ([id number]) [facility] ([facility]) [address] [place] [address] 39053 Immature granulocytes/100 WBC (Bld) 1.1 % High 0.0-0.9 [facility] Comment on above: Result Comment: Cynthia ture Granulocyte Count (IG) includes promyelocytes, myelocytes and metamyelocytes but does not include bands. Percent differential counts (%) should be interpreted in the context of the absolute cell counts (cells/UL). Performed By: #### 5 7021-8 #### VISHNU LEE ([id number]) [facility] ([facility]) [address] [place] [address] 98302 Lymphocytes (Bld) [#/Vol] 1.24 x10*3/uL Normal 0.80-3.00 [facility] Comment on above: Performed By: #### 5 7021-8 #### VISHNU LEE ([id number]) [facility] ([facility]) [address] [place] [address] 00892 Lymphocytes/100 WBC (Bld) 8.2 % Normal 13.0-44.0 [facility] Comment on above: Performed By: #### 5 7021-8 #### VISHNU LEE ([id number]) [facility] ([facility]) [address] [place] [address] 92385 MCH (RBC) [Entitic mass] 29.6 pg Normal 26.0-34.0 [facility] Comment on above: Performed By: #### 5 7021-8 #### VISHNU LEE ([id number]) [facility] ([facility]) [address] [place] [address] 55407 MCHC (RBC) [Mass/Vol] 31.2 g/dL Low 32.0-36.0 [facility] Comment on above: Performed By: #### 5 7021-8 #### VISHNU LEE ([id number]) [facility] ([facility]) [address] [place] [address] 78752 MCV (RBC) [Entitic vol] 95 fL Normal 80-100 U [facility] Comment on above: Performed By: #### 5 7021-8 #### VISHNU LEE ([id number]) [facility] ([facility]) [address] [place] [address] 71779 Monocytes (Bld) [#/Vol] 1.44 x10*3/uL High 0.05-0.80 [facility] Comment on above: Performed By: #### 5 7021-8 #### VISHNU LEE ([id number]) [facility] ([facility]) [address] [place] [address] 56453 Monocytes/100 WBC (Bld) 9.5 % Normal 2.0-10.0 U [facility] Comment on above: Performed By: #### 5 7021-8 #### VISHNU LEE ([id number]) [facility] ([facility]) [address] [place] [address] 62467 Neutrophils (Bld) [#/Vol] 12.18 x10*3/uL High 1.60-5.50 [facility] Comment on above: Result Comment: Perc ent differential counts (%) should be interpreted in the context of the absolute cell counts (cells/uL). Performed By: #### 5 7021-8 #### VISHNU LEE ([id number]) [facility] ([facility]) [address] [place] [address] 22960 Neutrophils/100 WBC (Bld) 80.4 % Normal 40.0-80.0 [facility] Comment on above: Performed By: #### 5 7021-8 #### VISHNU LEE ([id number]) [facility] ([facility]) [address] [place] [address] 32748 Nucleated RBC/100 WBC (Bld) [Ratio] 0.0 /100 WBCs Normal 0.0-0.0 [facility] Comment on above: Performed By: #### 5 7021-8 #### VISHNU LEE ([id number]) [facility] ([facility]) [address] [place] [address] 80192 Platelets (Bld) [#/Vol] 290 x10*3/uL Normal 150-450 [facility] Comment on above: Performed By: #### 5 7021-8 #### VISHNU LEE ([id number]) [facility] ([facility]) [address] [place] [address] 94125 RBC (Bld) [#/Vol] 3.95 x10*6/uL Low 4.50-5.90 [facility] Comment on above: Performed By: #### 5 7021-8 #### VISHNU LEE ([id number]) [facility] ([facility]) [address] [place] [address] 29530 WBC (Bld) [#/Vol] 15.1 x10*3/uL High 4.4-11.3 [facility] Comment on above: Performed By: #### 5 7021-8 #### VISHNU LEE ([id number]) [facility] ([facility]) [address] [place] [address] 76594 Comprehensive metabolic 2000 panelon 09-26-2024 Albumin BCP dye [Mass/Vol] 3.5 g/dL 3.4 - 5.0 g/dL [facility] ALP [Catalytic activity/Vol] 68 U/L 33 - 136 U/L [facility] ALT With P-5'-P [Catalytic activity/Vol] 7 U/L Low 10 - 52 U/L [facility] Comment on above: Patients treated wit h Sulfasalazine may generate falsely decreased results for ALT. Anion gap [Moles/Vol] 16 mmol/L 10 - 2 0 mmol/L [facility] AST With P-5'-P [Catalytic activity/Vol] 11 U/L 9 - 39 U/L [facility] Bilirubin [Mass/Vol] 0.9 mg/dL 0.0 - 1 .2 mg/dL [facility] Calcium [Mass/Vol] 8.7 mg/dL 8.6 - 10. 3 mg/dL [facility] Chloride [Moles/Vol] 102 mmol/L 98 - 10 7 mmol/L [facility] CO2 [Moles/Vol] 22 mmol/L 21 - 32 mmol/L [facility] Creatinine [Mass/Vol] 1.39 mg/dL High 0.50 - 1.30 mg/dL [facility] GFR/1.73 sq M.predicted among non-blacks MDRD (S/P/Bld) [Vol rate/Area] 53 mL/min/{1.73_m2} Low - PINF [facility] Comment on above: Calculations of etelvina mated GFR are performed using the 2020 CKD-EPI Study Refit equation without the race variable for the IDMS-Traceable creatinine methods. https://jasn.asnjournals.org/content/early/ASN.2020 516113 Glucose [Mass/Vol] 173 mg/dL High 74 - 99 mg/dL [facility] Potassium [Moles/Vol] 4.5 mmol/L 3.5 - 5.3 mmol/L [facility] Protein [Mass/Vol] 6.0 g/dL Low 6.4 - 8.2 g/dL [facility] Sodium [Moles/Vol] 135 mmol/L Low 136 - 145 mmol/L [facility] Urea nitrogen [Mass/Vol] 22 mg/dL 6 - 23 mg/dL [facility] Albumin BCP dye [Mass/Vol] 3.5 g/dL Normal 3.4-5.0 [facility] Comment on above: Performed By: #### 2 4323-8 #### VISHNU LEE ([id number]) [facility] ([facility]) [address] [place] [address] ALP [Catalytic activity/Vol] 68 U/L Normal 33-136 [facility] Comment on above: Performed By: #### 2 4323-8 #### VISHNU LEE ([id number]) [facility] ([facility]) [address] [place] [address] ALT With P-5'-P [Catalytic activity/Vol] 7 U/L Low 10-52 [facility] Comment on above: Result Comment: Jaqueline ents treated with Sulfasalazine may generate falsely decreased results for ALT. Performed By: #### 2 4323-8 #### VISHNU LEE ([id number]) [facility] ([facility]) [address] [place] [address] Anion gap [Moles/Vol] 16 mmol/L Normal 10-20 [facility] Comment on above: Performed By: #### 2 432-8 #### VISHNU LEE ([id number]) [facility] ([facility]) [address] [place] [address] AST With P-5'-P [Catalytic activity/Vol] 11 U/L Normal 9-39 [facility] Comment on above: Performed By: #### 2 4323-8 #### VISHNU LEE ([id number]) [facility] ([facility]) [address] [place] [address] Bilirubin [Mass/Vol] 0.9 mg/dL Normal 0.0-1.2 [facility] Comment on above: Performed By: #### 2 4323-8 #### VISHNU LEE ([id number]) [facility] ([facility]) [address] [place] [address] Calcium [Mass/Vol] 8.7 mg/dL Normal 8.6-10.3 [facility] Comment on above: Performed By: #### 2 4323-8 #### VISHNU LEE ([id number]) [facility] ([facility]) [address] [place] [address] Chloride [Moles/Vol] 102 mmol/L Normal 98-107 [facility] Comment on above: Performed By: #### 2 4323-8 #### VISHNU LEE ([id number]) [facility] ([facility]) [address] [place] [address] CO2 [Moles/Vol] 22 mmol/L Normal 21-32 [facility] Comment on above: Performed By: #### 2 4323-8 #### VISHNU LEE ([id number]) [facility] ([facility]) [facility] [place] [address] Creatinine [Mass/Vol] 1.39 mg/dL High 0.50-1.30 [facility] Comment on above: Performed By: #### 2 4323-8 #### VISHNU LEE ([id number]) [facility] ([facility]) [address] [place] [address] 74738 Glomerular filtration rate 53 mL/min/1.73m*2 Low >60 [facility] Comment on above: Result Comment: Calc ulations of estimated GFR are performed using the 2020 CKD-EPI Study Refit equation without the race variable for the IDMS-Traceable creatinine methods. https://jasn.asnjournals.org/content/early//ASN.2020 217669 Performed By: #### 2 4323-8 #### VISHNU LEE ([id number]) [facility] ([facility]) [address] [place] [address] 01740 Glucose [Mass/Vol] 173 mg/dL High 74-99 [facility] Comment on above: Performed By: #### 2 4323-8 #### VISHNU LEE ([id number]) [facility] ([facility]) [address] [place] [address] 58152 Potassium [Moles/Vol] 4.5 mmol/L Normal 3.5-5.3 [facility] Comment on above: Performed By: #### 2 4323-8 #### VISHNU LEE ([id number]) [facility] ([facility]) [address] [place] [address] 74084 Protein [Mass/Vol] 6.0 g/dL Low 6.4-8.2 [facility] Comment on above: Performed By: #### 2 4323-8 #### VISHNU LEE ([id number]) [facility] ([facility]) [address] [place] [address] 27693 Sodium [Moles/Vol] 135 mmol/L Low 136-145 [facility] Comment on above: Performed By: #### 2 4323-8 #### VISHNU LEE ([id number]) [facility] ([facility]) [address] [place] [address] 22614 Urea nitrogen [Mass/Vol] 22 mg/dL Normal 6-23 [facility] Comment on above: Performed By: #### 2 4323-8 #### VISHNU LEE ([id number]) [facility] ([facility]) [address] [place] [address] 41895 D-Dimer, VTE Exclusionon Fibrin D-dimer FEU (PPP) [Mass/Vol] 6938 [facility] ECG 12-LEADon 09-26-2024 ECG 12-LEAD Ventricular Rate 104 Atrial Rate 104 P-R Interval 164 QRS Duration 96 Q-T Interval 320 QTC Calculation(Bazett) 420 P [place] 70 R [place] 32 T [place] 84 QRS Count 18 Q Onset 224 P Onset 142 P Offset 195 T Offset 384 QTC Fredericia 384 Diagnosis Sinus tachycardia Otherwise normal ECG When compared with ECG of 23-SEP-2024 15:52, QRS axis Shifted right Nonspecific T wave abnormality, improved in Anterolateral leads See ED provider note for full interpretation and clinical correlation Confirmed by Talia Causey ([id number]) on 09/27/2024 10:42:30 AM Normal [facility] Fibrin D-dimeron 09-26-2024 Fibrin D-dimer FEU (PPP) [Mass/Vol] 6938 ng/mL FEU High <=500 [facility] Comment on above: Order Comment: The V TE Exclusion D-Dimer assay is reported in ng/mL Fibrinogen Equivalent Units (FEU). Per assistant child care teacher's instructions for use, a value of less than 500 ng/mL (FEU) may help to exclude DVT or PE in outpatients when the assay is used with a clinical pretest probability assessment.(AEMR must utilize and document eCalc 'Wells Score Deep Vein Thrombosis Risk' for DVT exclusion only. Emergency Department should utilize Guidelines for Emergency Department Use of the VTE Exclusion D-Dimer and Clinical Pretest probability assessment model for DVT or PE exclusion.) Performed By: #### 4 8065-7 #### VISHNU LEE ([id number]) [facility] ([facility]) [address] [place] [address] 26471 Fibrin D-dimer FEU (PPP) [Ma ss/Vol]on 09-26-2024 Interpretation and review of laboratory results Abnormal [facility] The VTE Exclusion D-Dimer assay is reported in ng/mL Fibrinogen Equivalent Units (FEU). Per assistant child care teacher's instructions for use, a value of less than 500 ng/mL (FEU) may help to exclude DVT or PE in outpatients when the assay is used with a clinical pretest probability assessment.(AEMR must utilize and document eCalc 'Wells Score Deep Vein Thrombosis Risk' for DVT exclusion only. Emergency Department should utilize Guidelines for Emergency Department Use of the VTE Exclusion D-Dimer and Clinical Pretest probability assessment model for DVT or PE exclusion.) [facility] Lactateon 09-26-2024 Lactate [Moles/Vol] 3.4 mmol/L High 0.4 - 2. 0 mmol/L [facility] Lactate [Moles/Vol] 3.4 mmol/L High 0.4-2.0 [facility] Comment on above: Order Comment: Venip uncture immediately after or during the administration of Metamizole may lead to falsely low results. Testing should be performed immediately prior to Metamizole dosing. Performed By: #### 2 524-7 #### VISHNU LEE ([id number]) [facility] ([facility]) [address] [place] [id number] Lactate [Moles/Vol]on 2024 Venipuncture immediately after or during the administration of Metamizole may lead to falsely low results. Testing should be performed immediately prior to Metamizole dosing. [facility] Lipaseon 09-26-2024 Lipase [Catalytic activity/Vol] 16 U/L 9 - 82 U/L [facility] Lipase [Catalytic activity/V ol]on 09-26-2024 Venipuncture immediately after or during the administration of Metamizole may lead to falsely low results. Testing should be performed immediately prior to Metamizole dosing. [facility] Magnesiumon 09-26-2024 Magnesium [Mass/Vol] 1.98 mg/dL 1.60 - 2.40 mg/dL [facility] Magnesium [Mass/Vol] 1.98 mg/dL Normal 1.60-2.40 [facility] Comment on above: Performed By: #### 1 9123-9 #### VISNHU LEE ([id number]) [facility] ([facility]) [address] [place] [address] Natriuretic peptide B [Mass/ Vol]on 09-26-2024 Natriuretic peptide B (Bld) [Mass/Vol] 44 pg/mL Normal 0-99 [facility] Comment on above: Order Comment: <100 pg/mL - Heart failure unlikely 100-299 pg/mL - Intermediate probability of acute heart failure exacerbation. Correlate with clinical context and patient history. >=300 pg/mL - Heart Failure likely. Correlate with clinical context and patient history. BNP testing is performed using different testing methodology at [facility] than at other [facility]. Direct result comparisons should only be made within the same method. Performed By: #### 3 0934-4 #### VISHNU LEE ([id number]) [facility] ([facility]) [address] [place], [place] [id number] No Panel Informationon 09-26 Interpretation and review of laboratory results Normal [facility] Interpretation and review of laboratory results Abnormal [facility] Triacylglycerol lipaseon Lipase [Catalytic activity/Vol] 16 U/L Normal 9-82 [facility] Comment on above: Order Comment: Venip uncture immediately after or during the administration of Metamizole may lead to falsely low results. Testing should be performed immediately prior to Metamizole dosing. Performed By: #### 3 040-3 #### VISHNU LEE ([id number]) [facility] ([facility]) [address] [place], [place] [id number] Troponin I.cardiac panelon 0 09-26-2024 Tropinin I.cardiac panel High sensitivity method 12 ng/L Normal 0-20 [facility] Comment on above: Order Comment: Less than 99th percentile of normal range cutoff- Female and children under 18 years old <14 ng/L; Male <21 ng/L: Negative Repeat testing should be performed if clinically indicated. Female and children under 18 years old 14-50 ng/L; Male 21-50 ng/L: Consistent with possible cardiac damage and possible increased clinical risk. Serial measurements may help to assess extent of myocardial damage. >50 ng/L: Consistent with cardiac damage, increased clinical risk and myocardial infarction. Serial measurements may help assess extent of myocardial damage. NOTE: Children less than 1 year old may have higher baseline troponin levels and results should be interpreted in conjunction with the overall clinical context. NOTE: Troponin I testing is performed using a different testing methodology at [facility] than at other [facility]. Direct result comparisons should only be made within the same method. Performed By: #### 8 9577-1 #### VISHNU LEE ([id number]) [facility] ([facility]) [address] [place] [address] 56279 XR CHEST 1 VIEWon 09-26-2024 XR CHEST 1 VIEW Interpreted By: Pavel Blum, STUDY: XR CHEST 1 VIEW; 09/26/2024 11:26 pm INDICATION: Signs/Symptoms:SOB. COMPARISON: Chest radiograph 03/17/2023. ACCESSION NUMBER(S): [id number] ORDERING CLINICIAN: MARCIO AHN FINDINGS: CARDIOMEDIASTINAL SILHOUETTE: Cardiomediastinal silhouette is normal in size and configuration. LUNGS/PLEURA: Unchanged calcified granuloma in the right upper lobe. There are no consolidations.There are no pleural effusions. There is no demonstrated pneumothorax. BONES: No evidence of acute osseous abnormality. IMPRESSION: 1. No evidence of acute cardiopulmonary process. Signed by: Pavel Blum 09/27/2024 12:10 AM Dictation workstation: [id number] [facility] XR Chest Single viewon 09-26 Radiology Study observation (narrative) [facility] Work Phone: Pulmonary Visit Reporton Pulmonary Visit Report [facility] [address] [place] [address] OFFICE VISIT Date of Service: 07/14/24 MR#: [id number] Acct: [id number] Name: CHERYL DE LA FUENTE Rep #: [id number] : 1950 Provider: DAVID Lowery Age/Sex: 73/M Location: [facility] [place] Status: Signed Assessment and Plan Assessment and Plan (1) Severe persistent allergic asthma: Status: Acute Plan: Chronically dependent on steroids in addition to nebulized budesonide. He is compliant with Claritin and Singulair. He was previously approved for [employer], however it was too expensive, even with foundation assistance. In reviewing his chart, I noticed that he also has an elevated IgE level with a positive RAST test. I explained to him that placing him on Xolair would reduce the reaction to allergic triggers, ultimately blocking some of the cascade that is causing mucus production. This would be beneficial. Once we get him on Xolair we could slowly wean him off of prednisone. Return to the office in 3 months to evaluate response to therapy. Laboratory Tests 08/24/21 09:50 Alternar. alternata IgE 0.21 H IgE 136 (2) Pulmonary nodule: Status: Chronic Plan: New 5 mm micronodule left lower lobe. Will repeat diagnostic CT of the chest in 3 months. Return to the office after test results are available for review. (3) Asthma-COPD overlap syndrome: Status: Chronic Comment: Chronic prednisone Plan: Stable, no signs of exacerbation of severe asthma/COPD today. No change in maintenance medications, including triple therapy with the use of budesonide and DuoNebs as well as chronic low-dose prednisone. No additional testing at this time. Contact the office with any signs of new or worsening symptoms. Follow-up in 4 months. (4) MARK (obstructive sleep apnea): Status: Chronic Comment: Noncompliant Plan: Noncompliant (5) Bronchiectasis: Status: Chronic Qualifiers: Bronchiectasis type: with acute exacerbation Qualified Code(s): J47.1 - Bronchiectasis with (acute) exacerbation Comment: CT scan of the chest completed on December 08, 2020. Noted is a 6 mm right lower lobe subpleural nodule. Mild pulmonary emphysema. Images were personally reviewed and consistent with bronchiectasis mid to lower lobes. Plan: Continue the use of Acapella. (6) Hypoxia: Status: Chronic Plan: He is using and benefiting from supplemental oxygen. No additional testing at this time. Orders: Orders Chest without Contrast 3 Months R91.1 - Solitary pulmonary nodule Medications: New omalizumab (Xolair) 300 mg (2 mL) subcut Q4W 2 mL 11RF prednisone take 4 tabs for three days, then 3 tabs for three days, then 2 tabs for three days, then 1 tab for 3 days 10 mg PO QDAY 12 days 30 tabs 0RF Plan Details Additional Comments: This note was generated with THE MELT dictation software. It may contain incorrect words, spelling, and punctuation that were not noted in checking the note before signing. Follow Up: 4 Months ([facility]) HPI 4-6 M FU Chief Complaint: Mucus production HPI Comments Details: This patient presents to the office today for follow-up of his asthma/COPD overlap syndrome. He is ambulatory and currently on room air. He is accompanied today by his daughter. He was recently treated for an exacerbation of his COPD by his primary care doctor. He was treated with azithromycin and prednisone taper. He is compliant with budesonide nebulized twice daily. He denies any medication side effect such as sore throat or thrush. He is using DuoNebs twice daily. He is is using Mucinex as needed and Singulair Claritin daily. He is on chronic 10 mg of prednisone daily. He does have shortness of breath that is worse with exertion. He continues with chronic wheezing. He has a cough that is sometimes productive of occasionally but mostly thin clear-colored sputum. Sputum is not thick. It is often copious. He has chest tightness and chest congestion but denies any chest pain or palpitations. He has not had any fever, chills or body aches. He is compliant with supplemental oxygen, using 2 L/min with sleep. He sometimes utilizes supplemental oxygen during the day. Saturations are typically 95%. If you recall, he is a previous smoker. He reports that he quit smoking back in 2007. Test results personally viewed the patient: CT scan of the chest without contrast completed on March 31, 2024 diffuse central lobar emphysema. 0.5 cm noncalcified nodule left lower lobe. 8.5 cm calcified granuloma in the right upper lobe. A noncalcified subpleural micronodule in the right lower lobe. Intake Vital Signs 03/16/24 07:53 07/14/24 08:29 Height 6 ft 1 in 6 ft 1 in Weight: 180 lb BMI 23.7 BP 96/62 Blood Pressure Location Lt brachial Position Sitting R (more content not included)... Normal [facility] Absolute lymphocyte countOrd ered By: Ashlee Lanier on 06-24-2024 Lymphocytes Auto (Unsp spec) [#/Vol] 1.36 10*3/uL 0.83-4.51 [facility] Absolute neutrophil countOrd ered By: Ashlee Lanier on 06-24-2024 Neutrophils (Bld) [#/Vol] 4.3 10*3/uL 2.0-7.7 [facility] Anion gap in Serum or Plasma Ordered By: Ashlee Lanier on 06-24-2024 Anion gap [Moles/Vol] 11 mmol/L 5-15 [facility] Automated lymphocyte count a s percentage of total leukocytesOrdered By: Ashlee Lanier on 06-24-2024 Lymphocytes/100 WBC Auto (Unsp spec) 21.6 % 19-41 [facility] BUN/creatinine ratioOrdered By: Ashlee Lanier on 06-24-2024 Urea nitrogen/Creatinine [Mass ratio] 12.8 mg/mg 10-20 [facility] Basophil percentageOrdered B y: Ashlee Lanier on 06-24-2024 Basophils/100 WBC (Bld) 0.3 % 0-1 [facility] Bilirubin, totalOrdered By: Ashlee Lanier on 06-24-2024 Bilirubin [Mass/Vol] 0.40 mg/dL 0.00-1.30 [facility] CBC W/Diff, Automatedon 04-2 -2024 Absolute Lymph 1.36 X10 3/uL Normal 0.83-4.51 [facility] Comment on above: Performed By: #### L 501.9520, L500.4100, L501.9910, L506.1001, L501.76345, L501.5200, L506.0400, L100.0100, L500.4050 #### [facility] [address] [place], [address] Absolute Neut 4.3 X10 3/uL Normal 2.0-7.7 [facility] Comment on above: Performed By: #### L 501.9520, L500.4100, L501.9910, L506.1001, L501.04678, L501.5200, L506.0400, L100.0100, L500.4050 #### [facility] [address] [place], [place], [id number] (307) Basophils/100 WBC (Bld) 0.3 % Normal 0-1 [facility] Comment on above: Performed By: #### L 501.9520, L500.4100, L501.9910, L506.1001, L501.59701, L501.5200, L506.0400, L100.0100, L500.4050 #### [facility] [address] [place], [place], [phone] ([phone]) Eosinophils/100 WBC (Bld) 0.5 % Normal 0-5 [facility] Comment on above: Performed By: #### L 501.9520, L500.4100, L501.9910, L506.1001, L501.20440, L501.5200, L506.0400, L100.0100, L500.4050 #### [facility] [address] [place], [place], [phone] (396) Erythrocyte distribution width (RBC) [Ratio] 13.1 % Normal 11.6-14.6 [facility] Comment on above: Performed By: #### L 501.9520, L500.4100, L501.9910, L506.1001, L501.03518, L501.5200, L506.0400, L100.0100, L500.4050 #### [facility] [address] [place], [place], [id number] (228) Hematocrit (Bld) [Volume fraction] 45.7 % Normal 40-54 [facility] Comment on above: Performed By: #### L 501.9520, L500.4100, L501.9910, L506.1001, L501.90603, L501.5200, L506.0400, L100.0100, L500.4050 #### [facility] [address] [facility] [place], [place], [phone] (359) Hemoglobin (Bld) [Mass/Vol] 14.8 g/dL Normal 13.0-16.5 [facility] Comment on above: Performed By: #### L 501.9520, L500.4100, L501.9910, L506.1001, L501.86641, L501.5200, L506.0400, L100.0100, L500.4050 #### [facility] [address] [facility] [place], [place], [phone] (737) IG% 0.800 Normal 0.0-0.9 [facility] Comment on above: Result Comment: IG% - Immature Granulocytes (promyelocytes, myelocytes and metamyelocytes) > 1% indicates that a LEFT SHIFT is Present. Performed By: #### L 501.9520, L500.4100, L501.9910, L506.1001, L501.06584, L501.5200, L506.0400, L100.0100, L500.4050 #### [facility] [address] [facility] [place], [place], [phone] (389) Lymphocytes/100 WBC (Bld) 21.6 % Normal 19-41 [facility] Comment on above: Performed By: #### L 501.9520, L500.4100, L501.9910, L506.1001, L501.73023, L501.5200, L506.0400, L100.0100, L500.4050 #### [facility] [address] [place], [address] MCH (RBC) [Entitic mass] 30.4 pg Normal 27.0-32.0 [facility] Comment on above: Performed By: #### L 501.9520, L500.4100, L501.9910, L506.1001, L501.90652, L501.5200, L506.0400, L100.0100, L500.4050 #### [facility] [address] [place], [address] MCHC (RBC) [Mass/Vol] 32.4 g/dL Normal 32-36 [facility] Comment on above: Performed By: #### L 501.9520, L500.4100, L501.9910, L506.1001, L501.24409, L501.5200, L506.0400, L100.0100, L500.4050 #### [facility] [address] [place], [address] MCV (RBC) [Entitic vol] 93.8 fL Normal 80-94 [facility] Comment on above: Performed By: #### L 501.9520, L500.4100, L501.9910, L506.1001, L501.29456, L501.5200, L506.0400, L100.0100, L500.4050 #### [facility] [address] [place], [address] Monocytes/100 WBC (Bld) 8.6 % Normal 0-10 [facility] Comment on above: Performed By: #### L 501.9520, L500.4100, L501.9910, L506.1001, L501.76504, L501.5200, L506.0400, L100.0100, L500.4050 #### [facility] [address] [place], [address] Neutrophils/100 WBC (Bld) 68.2 % Normal 47-70 [facility] Comment on above: Performed By: #### L 501.9520, L500.4100, L501.9910, L506.1001, L501.52408, L501.5200, L506.0400, L100.0100, L500.4050 #### [facility] [address] [facility] [place], [address] Nucleated RBC (Bld) [#/Vol] 0 10*3/uL Normal 0-5 [facility] Comment on above: Performed By: #### L 501.9520, L500.4100, L501.9910, L506.1001, L501.01727, L501.5200, L506.0400, L100.0100, L500.4050 #### [facility] [address] [facility] [place], [address] Platelet mean volume (Bld) [Entitic vol] 9.0 fL Normal 6.2-12.0 [facility] Comment on above: Performed By: #### L 501.9520, L500.4100, L501.9910, L506.1001, L501.96178, L501.5200, L506.0400, L100.0100, L500.4050 #### [facility] [address] [facility] [place], [address] Platelets (Bld) [#/Vol] 254 10*3/uL Normal 150-450 [facility] Comment on above: Performed By: #### L 501.9520, L500.4100, L501.9910, L506.1001, L501.17735, L501.5200, L506.0400, L100.0100, L500.4050 #### [facility] [address] [place], [address] RBC (Bld) [#/Vol] 4.87 10*6/uL Normal 4.6-6.2 [facility] Comment on above: Performed By: #### L 501.9520, L500.4100, L501.9910, L506.1001, L501.96927, L501.5200, L506.0400, L100.0100, L500.4050 #### [facility] [address] [facility] [place], [address] RDW SD 44.7 fl High 35.1-43.9 [facility] Comment on above: Performed By: #### L 501.9520, L500.4100, L501.9910, L506.1001, L501.40240, L501.5200, L506.0400, L100.0100, L500.4050 #### [facility] [address] [facility] [place], [address] WBC (Bld) [#/Vol] 6.3 10*3/uL Normal 4.4-11.0 [facility] Comment on above: Performed By: #### L 501.9520, L500.4100, L501.9910, L506.1001, L501.73982, L501.5200, L506.0400, L100.0100, L500.4050 #### [facility] [address] [facility] [place], [address] Calculated very low density lipoprotein (VLDL) cholesterol measurementOrdered By: Ashlee Lanier on 06-24-2024 Calculated very low density lipoprotein (VLDL) cholesterol measurement 26 mg/dL - [facility] VLDL Cholesterol 26 mg/dL - [facility] Carbon dioxide, total [Moles /volume] in Central venous bloodOrdered By: Ashlee Lanier on 06-24-2024 CO2 [Moles/Vol] 21.8 mmol/L 21.0-32.0 [facility] Chloride assayOrdered By: Marleny Lanier on 06-24-2024 Chloride [Moles/Vol] 106 mmol/L 98-108 [facility] Comprehensive Metabolic Prof ilon 06-24-2024 Albumin [Mass/Vol] 3.5 g/dL Normal 3.4-4.8 [facility] Comment on above: Performed By: #### L 501.9520, L500.4100, L501.9910, L506.1001, L501.55331, L501.5200, L506.0400, L100.0100, L500.4050 #### [facility] [address] [place], [place], [id number] Albumin/Globulin [Mass ratio] 1.3 {ratio} Normal 0.9-2.4 [facility] Comment on above: Performed By: #### L 501.9520, L500.4100, L501.9910, L506.1001, L501.90956, L501.5200, L506.0400, L100.0100, L500.4050 #### [facility] [address] [place], [place], [id number] ALK PHOS 89 U/L Normal 40-129 [facility] Comment on above: Performed By: #### L 501.9520, L500.4100, L501.9910, L506.1001, L501.22995, L501.5200, L506.0400, L100.0100, L500.4050 #### [facility] [address] [place], [address] ALT [Catalytic activity/Vol] 13 U/L Normal <=46 [facility] Comment on above: Performed By: #### L 501.9520, L500.4100, L501.9910, L506.1001, L501.18914, L501.5200, L506.0400, L100.0100, L500.4050 #### [facility] [address] [place], [place], [id number] AST [Catalytic activity/Vol] 21 U/L Normal <=37 [facility] Comment on above: Performed By: #### L 501.9520, L500.4100, L501.9910, L506.1001, L501.29397, L501.5200, L506.0400, L100.0100, L500.4050 #### [facility] [address] [place], [place], [id number] Bilirubin [Mass/Vol] 0.40 mg/dL Normal 0.00-1.30 [facility] Comment on above: Performed By: #### L 501.9520, L500.4100, L501.9910, L506.1001, L501.84742, L501.5200, L506.0400, L100.0100, L500.4050 #### [facility] [address] [place], [place], [id number] BUN/CRE 12.8 RATIO Normal 10-20 [facility] Comment on above: Performed By: #### L 501.9520, L500.4100, L501.9910, L506.1001, L501.13770, L501.5200, L506.0400, L100.0100, L500.4050 #### [facility] [address] [place], [address] Calcium [Mass/Vol] 8.6 mg/dL Normal 7.6-11.0 [facility] Comment on above: Performed By: #### L 501.9520, L500.4100, L501.9910, L506.1001, L501.73819, L501.5200, L506.0400, L100.0100, L500.4050 #### [facility] [address] [place], [address] Chloride [Moles/Vol] 106 mmol/L Normal 98-108 [facility] Comment on above: Performed By: #### L 501.9520, L500.4100, L501.9910, L506.1001, L501.45747, L501.5200, L506.0400, L100.0100, L500.4050 #### [facility] [address] [place], [address] CO2 [Moles/Vol] 21.8 mmol/L Normal 21.0-32.0 [facility] Comment on above: Performed By: #### L 501.9520, L500.4100, L501.9910, L506.1001, L501.48905, L501.5200, L506.0400, L100.0100, L500.4050 #### [facility] [address] [place], [address] Creatinine [Mass/Vol] 1.23 mg/dL High 0.70-1.20 [facility] Comment on above: Performed By: #### L 501.9520, L500.4100, L501.9910, L506.1001, L501.46162, L501.5200, L506.0400, L100.0100, L500.4050 #### [facility] [address] [place], [address] GAP 11 Normal 5-15 [facility] Comment on above: Performed By: #### L 501.9520, L500.4100, L501.9910, L506.1001, L501.13454, L501.5200, L506.0400, L100.0100, L500.4050 #### [facility] [address] [place], [address] GFR/1.73 sq M.predicted among non-blacks MDRD (S/P/Bld) [Vol rate/Area] 61 mL/min/{1.73_m2} Normal >60 [facility] Comment on above: Result Comment: mL/m in/1.73m2 CKD-EPI Creatinine Equation (2020) Performed By: #### L 501.9520, L500.4100, L501.9910, L506.1001, L501.19518, L501.5200, L506.0400, L100.0100, L500.4050 #### [facility] [address] [place], [address] Globulin (S) [Mass/Vol] 2.7 g/dL Normal 2.2-4.2 [facility] Comment on above: Performed By: #### L 501.9520, L500.4100, L501.9910, L506.1001, L501.16242, L501.5200, L506.0400, L100.0100, L500.4050 #### [facility] [address] [place], [address] Glucose [Mass/Vol] 93 mg/dL Normal 70-99 [facility] Comment on above: Performed By: #### L 501.9520, L500.4100, L501.9910, L506.1001, L501.52448, L501.5200, L506.0400, L100.0100, L500.4050 #### [facility] [address] [place], [address] Potassium [Moles/Vol] 4.1 mmol/L Normal 3.3-5.1 [facility] Comment on above: Performed By: #### L 501.9520, L500.4100, L501.9910, L506.1001, L501.53911, L501.5200, L506.0400, L100.0100, L500.4050 #### [facility] [address] [place], [address] Sodium [Moles/Vol] 139 mmol/L Normal 133-145 [facility] Comment on above: Performed By: #### L 501.9520, L500.4100, L501.9910, L506.1001, L501.33533, L501.5200, L506.0400, L100.0100, L500.4050 #### [facility] [address] [place], [place], [id number] T PROT 6.2 g/dL Normal 5.9-8.4 [facility] Comment on above: Performed By: #### L 501.9520, L500.4100, L501.9910, L506.1001, L501.87817, L501.5200, L506.0400, L100.0100, L500.4050 #### [facility] [address] [place], [place], [id number] Urea nitrogen [Mass/Vol] 16 mg/dL Normal 4-19 [facility] Comment on above: Performed By: #### L 501.9520, L500.4100, L501.9910, L506.1001, L501.85639, L501.5200, L506.0400, L100.0100, L500.4050 #### [facility] [address] [place], [place], [id number] Eosinophil percentageOrdered By: Ashlee Lanier on 06-24-2024 Eosinophils/100 WBC (Bld) 0.5 % 0-5 [facility] Erythrocyte distribution wid th (RBC) [Ratio]Ordered By: Ashlee aLnier on 06-24-2024 Erythrocyte distribution width (RBC) [Entitic vol] 44.7 fL High 35.1-43.9 [facility] Erythrocyte distribution wid th ratioOrdered By: Ashlee Lanier on 06-24-2024 Erythrocyte distribution width (RBC) [Ratio] 13.1 % 11.6-14.6 [facility] Erythrocyte distribution wid th standard deviationOrdered By: Ashlee Lanier on 06-24-2024 Erythrocyte distribution width (RBC) [Ratio] 44.7 fl High 35.1-43.9 [facility] Free T3on 06-24-2024 Free T3 [Mass/Vol] 1.9 pg/mL Low 2.18-3.98 [facility] Comment on above: Performed By: #### L 501.9520, L500.4100, L501.9910, L506.1001, L501.14489, L501.5200, L506.0400, L100.0100, L500.4050 #### [facility] [address] [place], [place], [id number] Free B3Smomxbl By: Ashlee lux on 06-24-2024 Free T3 [Mass/Vol] 1.9 pg/mL Low 2.18-3.98 [facility] Free Triiodothyronine (T3) pg/dL 1.9 pg/mL Low 2.18-3.98 [facility] GFR/1.73 sq M.predicted fredy g non-blacks MDRD (S/P/Bld) [Vol rate/Area]Ordered By: Ashlee Lanier on 06-24-2024 Estimated GFR (MDRD) Non-Af Amer 61 >60 [facility] Comment on above: mL/min/1.73m2 CKD-EP I Creatinine Equation (2020) Glomerular filtration rate ( GFR) estimation/1.73 sq m using serum, plasma, or whole bOrdered By: Ashlee Lanier on 06-24-2024 GFR/1.73 sq M.predicted among non-blacks MDRD (S/P/Bld) [Vol rate/Area] 61 mL/min/{1.73_m2} >60 [facility] Comment on above: mL/min/1.73m2 CKD-EP I Creatinine Equation (2020) Hematocrit Auto (Bld) [Volum e fraction]Ordered By: Ashlee Lanier on 06-24-2024 Hematocrit (Bld) [Volume fraction] 45.7 % 40-54 [facility] Hemoglobin measurementOrdere d By: Ashlee Lanier on 06-24-2024 Hemoglobin (Bld) [Mass/Vol] 14.8 g/dL 13.0-16.5 [facility] Immature granulocytes/100 WB C Auto (Bld)Ordered By: Ashlee Lanier on 06-24-2024 Immature granulocytes/100 WBC (Bld) 0.800 % 0.0-0.9 [facility] Comment on above: IG% - Immature Granu locytes (promyelocytes, myelocytes and metamyelocytes) > 1% indicates that a LEFT SHIFT is Present. LDL calc ser/plasOrdered By: Ashlee Lanier on 06-24-2024 Cholesterol in LDL [Mass/Vol] 140 mg/dL [facility] Comment on above: Ksltqcpxwr=955-748 m g/dL & Higher Kivc=460 mg/dL or greater LDL Cholesterol, Calculated 140 mg/dL [facility] Comment on above: Yboucekhus=419-783 m g/dL & Higher Fxbr=578 mg/dL or greater Laboratory - Chemistry and C hemistry - challengeOrdered By: Ashlee Lanier on 06-24-2024 AST [Catalytic activity/Vol] 21 U/L <38 [facility] Lipid Profileon 06-24-2024 CHOL:HDL 5.23 Normal [facility] Comment on above: Performed By: #### L 501.9520, L500.4100, L501.9910, L506.1001, L501.24933, L501.5200, L506.0400, L100.0100, L500.4050 #### [facility] [address] [place], [place], [id number] Cholesterol [Mass/Vol] 205 mg/dL High <=200 [facility] Comment on above: Result Comment: Chol esterol level, Desirable <200 mg/dL Borderline high cholesterol 200-239 mg/dL High cholesterol >=240 mg/dL Recommendations of the NCEP Adult Treatment Panel for the following risk-cutoff thresholds for the [place] population. Performed By: #### L 501.9520, L500.4100, L501.9910, L506.1001, L501.89988, L501.5200, L506.0400, L100.0100, L500.4050 #### [facility] [address] [place], [address] Cholesterol in HDL [Mass/Vol] 39 mg/dL Low [facility] Comment on above: Result Comment: Lucila onal Cholesterol Education Program (NCEP) guidelines: <40 mg/dL: Low HDL-cholesterol (major risk factor for CHD) >= 60 mg/dL: High HDL-cholesterol (negative risk factor for CHD) HDL-cholesterol is affected by a number of factors, e.g. smoking, exercise, hormones, sex and age. Performed By: #### L 501.9520, L500.4100, L501.9910, L506.1001, L501.97888, L501.5200, L506.0400, L100.0100, L500.4050 #### [facility] [address] [place], [address] Cholesterol in LDL [Mass/Vol] 140 mg/dL Normal [facility] Comment on above: Result Comment: Bord cjnjoz=863-866 mg/dL Higher Ccwg=321 mg/dL or greater Performed By: #### L 501.9520, L500.4100, L501.9910, L506.1001, L501.88876, L501.5200, L506.0400, L100.0100, L500.4050 #### [facility] [address] [place], [address] Cholesterol in VLDL [Mass/Vol] 26 mg/dL Normal 5-40 [facility] Comment on above: Performed By: #### L 501.9520, L500.4100, L501.9910, L506.1001, L501.51206, L501.5200, L506.0400, L100.0100, L500.4050 #### [facility] [address] [place], [address] Triglyceride [Mass/Vol] 130 mg/dL Normal [facility] Comment on above: Result Comment: The drugs N-Acetylcysteine and Metamizole may falsely depress this assay. Normal range: <150 mg/dL Borderline High: 150-199 mg/dL High: 200-499 mg/dL Very High: >500 mg/dL Performed By: #### L 501.9520, L500.4100, L501.9910, L506.1001, L501.73272, L501.5200, L506.0400, L100.0100, L500.4050 #### [facility] [address] [place], [address] Lymphocytes Auto (Unsp spec) [#/Vol]Ordered By: Ashlee Lanier on 06-24-2024 Lymphocytes (Bld) [#/Vol] 1.36 10*3/uL 0.83-4.51 [facility] Lymphocytes/100 WBC Auto (Un sp spec)Ordered By: Ashlee Lanier on 06-24-2024 Lymphocytes/100 WBC (Bld) 21.6 % 19-41 [facility] MCV (mean corpuscular volume ) determinationOrdered By: Ashlee Lanier on 06-24-2024 MCV (RBC) [Entitic vol] 93.8 fL 80-94 [facility] Magnesiumon 06-24-2024 Magnesium [Mass/Vol] 1.9 mg/dL Normal 1.5-2.2 [facility] Comment on above: Performed By: #### L 501.9520, L500.4100, L501.9910, L506.1001, L501.20362, L501.5200, L506.0400, L100.0100, L500.4050 #### [facility] [address] [place], [place], [id number] Magnesium (Unsp spec) [Mass/ Vol]Ordered By: Ashlee Lanier on 06-24-2024 Magnesium [Mass/Vol] 1.9 mg/dL 1.5-2.2 [facility] Magnesium measurement (mass/ volume)Ordered By: Ashlee Lanier on 06-24-2024 Magnesium (Unsp spec) [Mass/Vol] 1.9 mg/dL 1.5-2.2 [facility] Mean corpuscular hemoglobin (MCH) determinationOrdered By: Ashlee Lanier on 06-24-2024 MCH (RBC) [Entitic mass] 30.4 pg 27.0-32.0 [facility] Mean corpuscular hemoglobin concentration (MCHC) determinationOrdered By: Ashlee Lanier on 06-24-2024 MCHC (RBC) [Mass/Vol] 32.4 g/dL 32-36 [facility] Mean platelet volume determi nationOrdered By: Ashlee Lanier on 06-24-2024 Platelet mean volume (Bld) [Entitic vol] 9.0 fL 6.2-12.0 [facility] Monocyte percentageOrdered B y: Ashlee Lanier on 06-24-2024 Monocytes/100 WBC (Bld) 8.6 % 0-10 [facility] Neutrophil percentageOrdered By: Ashlee Lanier on 06-24-2024 Neutrophils/100 WBC (Bld) 68.2 % 47-70 [facility] Nucleated red blood cell per centageOrdered By: Ashlee Lanier on 06-24-2024 Nucleated RBC/100 WBC (Bld) [Ratio] 0 % 0-5 [facility] PSA, total screeningOrdered By: Ashlee Lanier on 06-24-2024 Prostate Specific Antigen Screen 2.58 ng/mL 0.02-4.00 [facility] Comment on above: This test was perfor med using the [employer] tPSA method. Measured values of a patient sample can vary depending on the testing procedure used. PSA values determined on patient samples by different testing procedures cannot be used interchangeably. If there is a change in PSA assays while monitoring therapy, sequential testing should be performed to confirm baseline values. PSA,Total - Annual Screenon 06-24-2024 PSA,TOT SCREEN 2.58 ng/mL Normal 0.02-4.00 [facility] Comment on above: Result Comment: This test was performed using the [employer] tPSA method. Measured values of a patient??sample can vary depending on the testing procedure used. PSA values determined on patient samples by different testing procedures cannot be used interchangeably. If there is a change in PSA assays while monitoring therapy, sequential testing should be performed to confirm baseline values. Performed By: #### L 501.9520, L500.4100, L501.9910, L506.1001, L501.70700, L501.5200, L506.0400, L100.0100, L500.4050 ####[facility] [id number] [place], [address] Platelet countOrdered By: Marleny Lanier on 06-24-2024 Platelets (Bld) [#/Vol] 254 10*3/uL 150-450 [facility] Potassium (Unsp spec) [Mass/ Vol]Ordered By: Ashlee Lanier on 06-24-2024 Potassium [Moles/Vol] 4.1 mmol/L 3.3-5.1 [facility] Potassium measurement (mass/ volume)Ordered By: Ashlee Lanier on 06-24-2024 Potassium (Unsp spec) [Mass/Vol] 4.1 mmol/L 3.3-5.1 [facility] RBC Auto (Bld) [#/Vol]Ordere d By: Ashlee Lanier on 06-24-2024 RBC (Bld) [#/Vol] 4.87 10*6/uL 4.6-6.2 [facility] Screening total cholesterol/ high density lipoprotein (HDL) cholesterol ratioOrdered By: Ashlee Lanier on 06-24-2024 Cholesterol.total/Amalia sterol in HDL [Mass ratio] 5.23 {ratio} [facility] Serum creatinine measurement (mass/volume)Ordered By: Ashlee Lanier on 06-24-2024 Creatinine [Mass/Vol] 1.23 mg/dL High 0.70-1.20 [facility] Serum globulin measurementOr dered By: Ashlee Lanier on 06-24-2024 Globulin (S) [Mass/Vol] 2.7 g/dL 2.2-4.2 [facility] Serum glucose measurement (m ass/volume)Ordered By: Ashlee Lanier on 06-24-2024 Glucose [Mass/Vol] 93 mg/dL 70-99 [facility] Serum or plasma alanine malloy otransferase (ALT) measurementOrdered By: Ashlee Lanier on 06-24-2024 ALT [Catalytic activity/Vol] 13 U/L <47 [facility] Serum or plasma albumin lida urement (mass/volume)Ordered By: Ashlee Lanier on 06-24-2024 Albumin [Mass/Vol] 3.5 g/dL 3.4-4.8 [facility] Serum or plasma albumin/glob ulin mass ratioOrdered By: Ashlee Lanier on 06-24-2024 Albumin/Globulin [Mass ratio] 1.3 {ratio} 0.9-2.4 [facility] Serum or plasma alkaline ramin sphatase measurementOrdered By: Ashlee Lanier on 06-24-2024 ALP [Catalytic activity/Vol] 89 U/L 40-129 [facility] Serum or plasma calcium lida urement (mass/volume)Ordered By: Ashlee Lanier on 06-24-2024 Calcium [Mass/Vol] 8.6 mg/dL 7.6-11.0 [facility] Serum or plasma cholesterol in HDL measurement (mass/volume)Ordered By: Ashlee Lanier on 06-24-2024 Cholesterol in HDL [Mass/Vol] 39 mg/dL Low >40 [facility] Comment on above: National Cholesterol Education Program (NCEP) guidelines:<40 mg/dL: Low HDL-cholesterol (major risk factor for CHD)>= 60 mg/dL: High HDL-cholesterol (negative risk factor for CHD)HDL-cholesterol is affected by a number of factors, e.g. smoking, exercise, hormones, sex and age. Serum or plasma cholesterol measurement (mass/volume)Ordered By: Ashlee Lanier on 06-24-2024 Cholesterol [Mass/Vol] 205 mg/dL High <201 [facility] Comment on above: Cholesterol level, D esirable <200 mg/dLBorderline high cholesterol 200-239 mg/dLHigh cholesterol >=240 mg/dLRecommendations of the NCEP Adult Treatment Panel for the following risk-cutoff thresholds for the [place] population. Serum or plasma urea nitroge n measurement (mass/volume)Ordered By: Ashlee Lanier on 06-24-2024 Urea nitrogen [Mass/Vol] 16 mg/dL 4-19 [facility] Sodium levelOrdered By: Page Lanier on 06-24-2024 Sodium [Moles/Vol] 139 mmol/L 133-145 [facility] T4 Free Directon 06-24-2024 T4 FREE DIRECT 1.10 ng/dL Normal 0.76-1.46 [facility] Comment on above: Performed By: #### L 501.9520, L500.4100, L501.9910, L506.1001, L501.69343, L501.5200, L506.0400, L100.0100, L500.4050 ####[facility] [id number] [place], [address] T4 freeOrdered By: Ashlee lux on 06-24-2024 Free T4 [Mass/Vol] 1.10 ng/dL 0.76-1.46 [facility] TSH DL <= 0.005 mIU/L QnOrde red By: Ashlee Lanier on 06-24-2024 Thyroid Stimulating Hormone (TSH) 1.090 uIU/mL 0.300-4.200 [facility] TSH Qn 1.090 uIU/mL 0.300-4.200 [facility] Thyroid Stim Hormone (TSH)on 06-24-2024 TSH 1.090 uIU/mL Normal 0.300-4.200 [facility] Comment on above: Performed By: #### L 501.9520, L500.4100, L501.9910, L506.1001, L501.32427, L501.5200, L506.0400, L100.0100, L500.4050 ####[facility] [id number] [place], [address] Total proteinOrdered By: Nova Lanier on 06-24-2024 Protein [Mass/Vol] 6.2 g/dL 5.9-8.4 [facility] Triglycerides measurementOrd ered By: Ashlee Lanier on 06-24-2024 Triglyceride [Mass/Vol] 130 mg/dL <199 [facility] Comment on above: The drugs N-Acetylcy steine and Metamizole may falsely depress this assay. Normal range: <150 mg/dLBorderline High: 150-199 mg/dLHigh: 200-499 mg/dLVery High: >500 mg/dL Vitamin D, 25-hydroxyOrdered By: Ashlee Lanier on 06-24-2024 Vitamin D 25-Hydroxy 26.3 ng/mL Low 30-100 [facility] Comment on above: Vitamin D StatusDefi ciency: <20 ng/mL (50nmol/L)Insufficiency: 20-30 ng/mL (50-75 nmol/L)Sufficiency: 30-100 ng/mL (75-250 nmol/L)Toxicity: >100 ng/mL (>250 nmol/L) Vitamin D,25 Hydroxyon 06-24 Vitamin D 25-OH 26.3 ng/mL Low 30-100 [facility] Comment on above: Result Comment: Nasrin min D Status Deficiency: <20 ng/mL (50nmol/L) Insufficiency: 20-30 ng/mL (50-75 nmol/L) Sufficiency: 30-100 ng/mL (75-250 nmol/L) Toxicity: >100 ng/mL (>250 nmol/L) Performed By: #### L 501.9520, L500.4100, L501.9910, L506.1001, L501.80158, L501.5200, L506.0400, L100.0100, L500.4050 ####[facility] [id number] [place], [address] White blood cell (WBC) count Ordered By: Ashlee Lanier on 06-24-2024 WBC (Bld) [#/Vol] 6.3 10*3/uL 4.4-11.0 [facility] CNCOon 05-20-2024 CNCO Letter Text Normal [facility] MR/BMS.Lisbeth 04-12-2024 MR/BMS.DENNYS [facility] [address] [place] [address] OFFICE VISIT Date of Service: 04/12/24 MR#: [id number] Acct: [id number] Name: CHERYL DE LA FUENTE Jr. Rep #: [id number] : 1950 Provider: Dr. 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 Accompanied by: Daughter Is patient in pain?: No Allergies Seasonal Allergies: Uncoded Allergy (Verified 04/12/24 13:29) Congestion codeine Adverse Reaction (Verified 04/12/24 13:29) NEEDS FOLLOW-UP Medications ???Medication ???Instructions ???Recorded ???Confirmed ???Type multivitamin 1 each PO DAILY vitamin 06/11/20 0 04/12/24 History acetaminophen 325 mg tablet 650 mg (2 x 325 mg) PO Q6H PRN PRN 06/22/20 04/12/24 Rx PAIN 1-10 nitroglycerin 0.4 mg sublingual 0.4 mg sublingual Q5M PRN chest 04/12/24 Rx tablet pain #1 BOTTLE PEP device #1 ea 02/16/21 04/12/24 Rx benzonatate 100 mg capsule 100 mg PO Q8H PRN 05/22/21 5 History spironolactone 25 mg tablet 12.5 mg PO DAILY 04/14/23 04/12/24 History amlodipine 5 mg tablet 5 mg PO DAILY #90 tabs 01/20/24 Rx atorvastatin 80 mg tablet 80 mg PO QHS cholesterol #90 tabs 01/20/24 04/12/24 Rx clopidogrel 75 mg tablet 75 mg PO DAILY blood thinner #90 1 03/21/23 04/12/24 Rx tabs furosemide 20 mg tablet 10 mg (1/2 x 20 mg) PO Q OTHER DAY 01/20/24 04/12/24 Rx #60 tabs levothyroxine 75 mcg tablet 75 mcg PO DAILY thyroid #90 tabs 1 03/21/23 04/12/24 Rx losartan 100 mg tablet 100 mg PO DAILY #90 tabs 01/20/24 04/12/24 Rx magnesium chloride 71.5 mg 71.5 mg PO BID #180 tabs 01/20/24 04/12/24 Rx (magnesium chloride) tablet,delayed release metoprolol succinate 50 mg 50 mg PO QHS #90 TABLETS 01/20/24 04/12/24 Rx tablet,extended release 24 hr potassium chloride 20 mEq See Rx Instructions .Route 4 04/12/24 Rx tablet,extended release(part/cryst) .COMPLEX #90 tabs rivaroxaban 20 mg tablet 20 mg PO DAILY #90 tabs 01/20/24 0 04/12/24 Rx sertraline 100 mg tablet (Zoloft) 100 mg PO DAILY #90 tabs 01/20/24 04/12/24 Rx albuterol sulfate 90 mcg/actuation 2 inh inhalation Q4H PRN PRN 04/12/24 Rx aerosol inhaler Wheezing #8.5 grams budesonide 1 mg/2 mL suspension 1 mg (2 mL) inhalation BID #60 mL 03/16/24 04/12/24 Rx for nebulization ipratropium 0.5 mg-albuterol 3 mg 3 ml inhalation Q4H PRN #180 mL 0 03/16/24 04/12/24 Rx (2.5 mg base)/3 mL nebulization soln montelukast 10 mg tablet 10 mg PO QPM #90 tabs 03/16/2412/25 Rx prednisone 10 mg tablet 10 mg PO DAILY #90 tabs 03/16/24 0 04/12/24 Rx azithromycin 250 mg tablet 250 mg PO QDAY 5 days #5 tabs 04/0304/12/24 Rx Have you fallen in the past year?: No [facility] History Cellulitis of right lower extremity Carotid artery disease Cerebrovascular disease Stroke BPH (benign prostatic hyperplasia) Snuff user Former smoker History of PTCA 1 History of non-ST elevation myocardial infarction (NSTEMI) Coronary artery disease Mild aortic stenosis Paroxysmal atrial fibrillation Debility Left ventricular hypertrophy COPD (chronic obstructive pulmonary disease) Chronic anticoagulation Hyperlipidemia Hypertension Surgical History History of heart artery stent Family History Other Heart disease Hypertension Social History (Updated 04/12/24 @ 13:34 by Mag Browne RN) Smoking Status: Former smoker quit date: 03/03/05 pack-years: 30 Tobacco: How many years used: 20 alcohol intake: former substance use type: does not use what type of physical activity do you participate in: none HPI HPI Chief Complaint: 1 Y FU Details: CHERYL DE LA FUENTE, is a 73 M who presents to the office today for annual follow-up. 73-year-old gentleman who has a history of COPD, centrilobular emphysema, asthma/COPD overlap syndrome, and follows routinely with pulmonary medicine. He also has CAD, and follows with cardiology regularly at the [facility]. He has hypertension, hyperlipidemia and is on chronic anticoagulation. He has been on long-term prednisone, at 10 mg daily. It has been suggested 80 potentially look at alternatives however he has been re (more content not included)... Normal [facility] Chest without Contraston Chest without Contrast [facility] [address] [place] [address] Chest without Contrast MR#: [id number] Acct: [id number] Name: CHERYL DE LA FUENTE Jr. Rep #: [id number] : 1950 M 73 From: Poncho Stallings MD PCP: Dr. Ashlee Lanier MD Status: REG CLI Study: Chest without Contrast Date of Exam: 03/31/24 Exam# [id number] Ordering Dr: Jyothi Lowery COLLECTIONS MANAGER COLLECTIONS MANAGER-C ADDENDUM by Dr. Poncho Stallings MD on 04/02/24 at 1509 Lungs and airways: Diffuse centrilobular emphysematous changes. A 0.5 cm noncalcified micronodule, left lower lobe, axial image 111. A 0.5 cm calcified granuloma in the right upper lobe, axial image 43. Reading Location: [facility] 04/02/24 1509 Date cc: DAVID Lowery; Dr. Ashlee Lanier MD * Signed PROCEDURE: CHEST WITHOUT CONTRAST REASON FOR EXAM: Cough. Shortness of breath. Chest pain. TECHNIQUE: Chest CT without intravenous contrast at 2.5 mm slice thicknesses. Sagittal and coronal reconstructed images were also obtained. : COMPARISON: CT chest dated 03/17/2023. FINDINGS: CHEST: Lines and tubes: None. Mediastinum: No evidence of mediastinal hemorrhage. Heart: Normal heart size. No pericardial effusion. Mild coronary artery calcifications. Thoracic Aorta: No evidence of acute traumatic aortic injury. Ascending aortic artery diameter measures 4.3 cm. Atherosclerotic calcifications of the aorta. Pulmonary arteries: Unremarkable. Lungs and Airways: Diffuse centrilobular emphysematous changes. 8.5 cm noncalcified micronodule, left lower lobe, axial image 111. 8.5 cm calcified granuloma in the right upper lobe, axial image 43. A noncalcified subpleural micronodule in the right lower lobe, axial image 82. Pleura: No pleural effusion. No pneumothorax. Bones: Multilevel spondylosis. Mild anterior wedging of the T11 and T12 vertebra. Upper abdomen: Small cortical cysts, right kidney. CT/Chest without Contrast IMPRESSION: Severe diffuse centrilobular emphysematous changes. Noncalcified micronodule in the left lower lobe, slightly more prominent when compared to the previous study. Consider six-month follow-up for surveillance. Right upper lobe calcified granuloma. Noncalcified subpleural micronodule in the right lower lobe. Fusiform aneurysm of the ascending aorta. Old compression abnormalities of T11 and T12. Small cortical cysts, right kidney. Other nonacute findings detailed above. One or more dose reduction techniques were used (e.g., Automated exposure control, adjustment of the mA and/or kV according to patient size, use of iterative reconstruction technique). Reading Location: [facility] CC: DAVID Lowery; Dr. Ashlee Lanier MD Fiber Locking Supervisor: Signed Normal [facility] Pulmonary Visit Reporton Pulmonary Visit Report [facility] [place] [address] [place] [address] OFFICE VISIT Date of Service: 03/16/24 MR#: [id number] Acct: [id number] Name: CHERYL DE LA FUENTE Jr. Rep #: [id number] : 1950 Provider: DAVID Lowery Age/Sex: 73/M Location: [facility] Status: Signed Assessment and Plan Assessment and Plan (1) Pulmonary nodule: Status: Chronic Plan: Previously noted 6 mm nodule in the right lower lobe and a high risk patient with a history of smoking. Plan to proceed by monitoring with a diagnostic CT of the chest. If there has been no change, this may be reported to the patient's daughter by phone. If there is increase in size and an additional image or intervention is necessary the patient will be contacted to move up his follow-up visit. (2) Asthma-COPD overlap syndrome: Status: Chronic Comment: Chronic prednisone Plan: Stable, no signs of exacerbation of severe asthma/COPD today. No change in maintenance medications, including triple therapy with the use of budesonide and DuoNebs as well as chronic low-dose prednisone. No additional testing at this time. Contact the office with any signs of new or worsening symptoms. Follow-up in 4 to 6 months. (3) Bronchiectasis: Status: Chronic Qualifiers: Bronchiectasis type: with acute exacerbation Qualified Code(s): J47.1 - Bronchiectasis with (acute) exacerbation Comment: CT scan of the chest completed on December 08, 2020. Noted is a 6 mm right lower lobe subpleural nodule. Mild pulmonary emphysema. Images were personally reviewed and consistent with bronchi ectasis mid to lower lobes. Plan: Continue the use of Acapella. (4) MARK (obstructive sleep apnea): Status: Chronic Comment: Noncompliant Plan: Noncompliant (5) Hypoxia: Status: Chronic Plan: He is using and benefiting from supplemental oxygen. No additional testing at this time. Orders: Orders Chest without Contrast 03/16/24 R91.1 - Solitary pulmonary nodule Medications: Refilled albuterol sulfate 90 mcg/actuation 2 inhalations inhalation Q4H PRN PRN 8.5 grams 6RF Wheezing budesonide 1 mg (2 mL) inhalation BID 60 mL 6RF J44.9 - Chronic obstructive pulmonary disease, unspecified ipratropium-albuterol 0.5 mg-3 mg(2.5 mg base)/3 mL 3 mL inhalation Q4H PRN 180 mL 6RF J44.9 - Chronic obstructive pulmonary disease, unspecified montelukast 10 mg PO QPM 90 tabs 3RF prednisone 10 mg PO DAILY 90 tabs 3RF J44.1 - Chronic obstructive pulmonary disease with (acute) exacerbation Discontinued dupilumab (Dupixent) Discontinued Reason: Pt refuses the test 300 mg (2 mL) subcut Q2W 4 mL 12RF Z87.891 - Personal history of nicotine dependence dupilumab as a single dose Discontinued Reason: Pt refuses the test 600 mg (4 mL) subcut ONCE 4 mL 0RF Plan Details Follow Up: 4 Months ([facility]) HPI 4 M FU Chief Complaint: Routine follow-up HPI Comments Details: This patient presents to the office today for follow-up of his asthma/COPD overlap syndrome. He is ambulatory and currently on room air. He is accompanied today by his daughter. He has not recently been seen in the ED or urgent care for any respiratory illness. He is not required any antibiotics or prednisone for any breathing problems. He is compliant with budesonide nebulized twice daily. He denies any medication side effect such as sore throat or thrush. He is using DuoNebs twice daily. He is is using Mucinex as needed and Singulair daily. He does have shortness of breath that is worse with exertion. He continues with chronic wheezing. He has a cough that is sometimes productive of occasionally but mostly thin clear-colored sputum. He has chest tightness and chest congestion but denies any chest pain or palpitations. He has not had any fever, chills or body aches. He is compliant with supplemental oxygen, using 2 L/min with sleep. If you recall, he is a previous smoker. He reports that he quit smoking back in 2005. If you recall, he was previously ordered Dupixent. Once again, the patient was given thorough instructions on how to set up his first injection. He and his daughter were agreeable with this plan. However, they did not move forward with the responsibilities necessary to get this approved. He prefers to treat his severe asthma with low-dose prednisone. If you recall, this patient had a 6 mm right lower lobe nodule noted on an LDCT from April 23, 2022. Intake Vital Signs 11/27/23 08:25 03/16/24 07:53 Height 6 ft 1 in 6 ft 1 in Weight: 182 lb 180 lb BMI 24.0 23.7 BP 111/78 109/73 Blood Pressure Location Lt brachial Lt brachial Position Sitting Sitting Respiration 16 20 H Pulse 78 71 Pulse Source Monitor Monitor Temp 97.6 F L 97.2 F L Temperature Source Temporal Artery Temporal Artery (more content not included)... Normal [facility] CNOVon 03-05-2024 [facility] Office Visit ([facility] ) CHERYL DE LA FUENTE ([id number]) 1950 Date Time Provider Department 03/05/24 10:20 AM IDANIA FRAIRE During your visit today, we recorded the following information about you: Pulse Blood pressure Weight Height 73/minute 110/66 82.6 kg 1.829 m Idania Fraire DO 03/05/2024 11:05 AM Signed [facility] OUTPATIENT VISIT DATE March 05, 2024 PRIMARY CARE PHYSICIAN: Ashlee Lanier [address] [place] [id number] HISTORY OF PRESENT ILLNESS: Mr. De La Fuente is a 73 year old male. The patient returns for follow-up secondary history of chronic diastolic heart failure, coronary artery disease with previous stenting of the left circumflex, paroxysmal atrial fibrillation on long-term anticoagulation with Xarelto, hypertension, hyperlipidemia, mild aortic stenosis with mild ascending aortic dilatation. He denies chest discomfort, dyspnea proportion usual, orthopnea, paroxysmal after dyspnea, palpitations, near-syncope or syncope. He continues to have dyspnea as result he believes of his COPD. PLAN AND RECOMMENDATIONS: The patient overall appears stable without apparent symptoms that would suggest angina or cardiac decompensation on his current optimal medical therapy. Heart rate, blood pressure and recent cholesterol profile are favorable and the same. We have therefore made no additions or changes. Dietary and lifestyle modification was reemphasized to facilitate risk factor reduction and heart failure prevention. We will look forward to reevaluating him in 6 months time. Vitals: BP 110/66 Pulse 73 Ht 182.9 cm (6') Wt 82.6 kg (182 lb) SpO2 95% BMI 24.68 kg/m? Physical Exam Vitals reviewed. Constitutional: General: He is not in acute distress. Appearance: Normal appearance. He is well-developed. He is not diaphoretic. HENT: Head: Normocephalic and atraumatic. Right Ear: External ear normal. Left Ear: External ear normal. Nose: Nose normal. Eyes: General: No scleral icterus. Right eye: No discharge. Left eye: No discharge. Pupils: Pupils are equal, round, and reactive to light. Neck: Thyroid: No thyromegaly. Vascular: No carotid bruit or JVD. Cardiovascular: Rate and Rhythm: Normal rate and regular rhythm. Heart sounds: Murmur heard. Crescendo decrescendo systolic murmur is present with a grade of 1/6. No friction rub. No gallop. Pulmonary: Effort: Pulmonary effort is normal. No respiratory distress. Breath sounds: Normal breath sounds. No wheezing or rales. Abdominal: General: Bowel sounds are normal. Palpations: Abdomen is soft. Musculoskeletal: General: Normal range of motion. Cervical back: Neck supple. Skin: General: Skin is warm and dry. Capillary Refill: Capillary refill takes less than 2 seconds. Coloration: Skin is not pale. Neurological: Mental Status: He is alert and oriented to person, place, and time. Cranial Nerves: No cranial nerve deficit. Psychiatric: Mood and Affect: Mood normal. Mood is not anxious or depressed. Behavior: Behavior normal. Thought Content: Thought content normal. Judgment: Judgment normal. Review of Systems Constitutional: Negative for activity change, appetite change, fatigue and unexpected weight change. HENT: Negative for ear pain and trouble swallowing. Eyes: Negative for pain and visual disturbance. Respiratory: Positive for cough and shortness of breath. Negative for chest tightness. Cardiovascular: Negative for chest pain, palpitations and leg swelling. Gastrointestinal: Negative for abdominal pain and blood in stool. Endocrine: Negative for cold intolerance and heat intolerance. Genitourinary: Negative for dysuria, hematuria and scrotal swelling. Musculoskeletal: Negative for arthralgias and myalgias. Skin: Negative for pallor and rash. Allergic/Immunologic: Negative for immunocompromised state. Neurological: Negative for dizziness, syncope and light-headedness. Hematological: Negative for adenopathy. Does not bruise/bleed easily. Psychiatric/Behaviora l: Negative for sleep disturbance. The patient is not nervous/anxious. PAST MEDICAL HISTORY Diagnosis Date Asthma CAD (coronary artery disease) Chronic obstructive pulmonary disease (COPD) ([facility]) Diastolic congestive heart failure ([facility]) 03/11/2022 Dyslipidemia Flutter-fibrillation ([facility]) Heart attack ([facility]) Hypertension NSTEMI (non-ST elevated myocardial infarction) ([facility]) 05/2018 Stroke ([facility]) Thyroid disease TIA (transient ischemic attack) PAST SURGICAL HISTORY Procedure Laterality Date CARDIAC CATHETERIZATION HX 05/2017 1 stent Social History Tobacco Use Smoking status: Former Current packs/day: 0.00 Types: Cigarettes Quit date: 03/03/2005 Years since (more content not included)... Normal [facility] Pulmonary Visit Reporton Pulmonary Visit Report [facility] [address] [place] [address] OFFICE VISIT Date of Service: 11/27/23 MR#: [id number] Acct: [id number] Name: CHERYL DE LA FUENTE Jr. Rep #: [id number] : 1950 Provider: DAVID Lowery Age/Sex: 73/M Location: [facility] [place] Status: Signed Assessment and Plan Assessment and Plan (1) Asthma-COPD overlap syndrome: Status: Chronic Plan: I do not believe the patient is a continued exacerbation of his asthma/COPD overlap syndrome. Highly encouraged the patient and his daughter to set up Dupixent injections. I do believe that he would benefit from setting up that initial Dupixent injection and getting compliant with the medication schedule, as discussed at his last office visit. I would ideally like to get him off of chronic prednisone once we can get the Dupixent scheduled and started. Unfortunately, it has been such a long time since this was ordered and approved that the process may need to be repeated. Follow-up in the office in 4 months to evaluate response to therapy. No change in maintenance medications. I do not believe that the patient requires a prednisone burst at this time. The patient requested antibiotics, I explained that there is no indication for antibiotics at this time. (2) Bronchiectasis: Status: Chronic Qualifiers: Bronchiectasis type: with acute exacerbation Qualified Code(s): J47.1 - Bronchiectasis with (acute) exacerbation Comment: CT scan of the chest completed on December 08, 2020. Noted is a 6 mm right lower lobe subpleural nodule. Mild pulmonary emphysema. Images were personally reviewed and consistent with bronchi ectasis mid to lower lobes. Plan: Continue the use of Acapella. (3) MARK (obstructive sleep apnea): Status: Chronic Comment: Noncompliant Plan: Noncompliant (4) Former smoker: Status: Chronic Comment: 40 pack years quit 12/2007 Plan: Does not qualify for LDCT. (5) Hypoxia: Status: Chronic Plan: He is using and benefiting from supplemental oxygen. No additional testing at this time. Medications: Refilled prednisone 10 mg PO DAILY 90 tabs 3RF J44.1 - Chronic obstructive pulmonary disease with (acute) exacerbation budesonide 1 mg (2 mL) inhalation BID 60 mL 6RF J44.9 - Chronic obstructive pulmonary disease, unspecified Plan Details Follow Up: 4 Months ([facility]) HPI 4 M FU Chief Complaint: Routine follow-up HPI Comments Details: This patient presents to the office today for follow-up of his asthma/COPD overlap syndrome. He is ambulatory and currently on room air. He is accompanied today by his daughter. He was recently been seen in the urgent care for any respiratory illness, he was treated with antibiotics and steroids. He was treated with Doxy for 7 days and prednisone for 5 days. If you recall, he is on chronic prednisone taking 10 mg daily. He is compliant with budesonide nebulized twice daily. He denies any medication side effect such as sore throat or thrush. He is using DuoNebs twice daily. He is compliant with Mucinex twice daily and Singulair daily. He continues with albuterol. He does have shortness of breath that is worse with exertion. He has frequent wheezing. He has a cough that is sometimes productive of thick white to clear-colored sputum. He has chest tightness and chest congestion but denies any chest pain or palpitations. He has not had any fever, chills or body aches. He is compliant with supplemental oxygen, using 2 L/min with sleep. If you recall, he is a previous smoker. He reports that he quit smoking back in 2005. If you recall, he was previously ordered Dupixent. On at least 2 occasions it was discussed at length the importance and the benefit of this medication. They have yet to set up his first injection and delivery of additional injections. Intake Vital Signs 07/25/23 08:31 11/27/23 08:25 Height 6 ft 1 in 6 ft 1 in Weight: 182 lb BMI 24.0 BP 111/78 Blood Pressure Location Lt brachial Position Sitting Respiration 16 Pulse 78 Pulse Source Monitor Temp 97.6 F L Temperature Source Temporal Artery Pulse Oximetry (%) 98 Oxygen Delivery Method room air Intake Visit Reasons: 4 M FU Chief Complaint: discuss hospital stay and oxygen DME Vendor: [employer] Accompanied by: Daughter Allergies Seasonal Allergies: Uncoded Allergy (Verified 11/27/23 14:08) Congestion codeine Adverse Reaction (Verified 11/27/23 14:08) NEEDS FOLLOW-UP Medications ???Medication ???Instructions ???Recorded ???Confirmed ???Type multivitamin 1 each PO DAILY vitamin 06/11/20 11/27/23 History acetaminophen 325 mg tablet 650 mg (2 x 325 mg) PO Q6H PRN PRN 06/22/20 11/27/23 Rx PAIN 1-10 nitroglycerin 0.4 mg sublingual 0.4 mg sublingual Q5M PRN chest 06/22/20 11/27/23 Rx (more content not included)... Normal [facility] POCT SARS-COV-2/FLU/RSV PCR SYMPTOMATIC manually resultedon 11-17-2023 FLUAV RNA LOGAN+probe Ql (Resp) Not detected Not Detected [facility] Work Phone: FLUBV RNA LOGAN+probe Ql (Resp) Not detected Not Detected [facility] Work Phone: RSV RNA LOGAN+probe Ql (Resp) Not detected Not Detected [facility] Work Phone: SARS-CoV-2 (COVID-19) RNA LOGAN+probe Ql (Resp) Not detected Not Detected [facility] Work Phone: [facility] Work Phone: CNOVon 09-02-2023 CNOV Office Visit ([facility] ) LEISACHERYL Krystin ([id number]) 1950 Date Time Provider Department 09/02/23 11:20 AM IDANIA FRAIRE During your visit today, we recorded the following information about you: Pulse Blood pressure Weight Height 71/minute 102/68 81.1 kg 1.829 m Idania Fraire DO 09/02/2023 3:55 PM Signed [facility] OUTPATIENT VISIT DATE September 02, 2023 PRIMARY CARE PHYSICIAN: Ashlee Lanier [facility] [place] [id number] HISTORY OF PRESENT ILLNESS: Mr. De La Fuente is a 72 year old male. The patient returns for follow-up secondary history of chronic diastolic heart failure, coronary artery disease with previous stenting of the left circumflex, paroxysmal atrial fibrillation on long-term anticoagulation with Xarelto, hypertension, hyperlipidemia, mild aortic stenosis with mild ascending aortic dilatation. He denies chest discomfort, dyspnea orthopnea, paroxysmal nocturnal dyspnea, palpitations, near-syncope or syncope. He denies GI/ bleeding or melena. PLAN AND RECOMMENDATIONS: The patient remained stable without apparent symptoms that would suggest angina or cardiac decompensation. Heart rate, blood pressure and recent cholesterol profile are favorable his current off medical therapy. We have therefore made no additions or changes. Dietary and lifestyle modification was reemphasized to facilitate risk factor reduction. We will look forward to reevaluating him in 6 months time. Vitals: BP 102/68 Pulse 71 Ht 182.9 cm (6') Wt 81.1 kg (178 lb 12.7 oz) SpO2 99% BMI 24.25 kg/m? Physical Exam Vitals reviewed. Constitutional: General: He is not in acute distress. Appearance: Normal appearance. He is well-developed. He is not diaphoretic. HENT: Head: Normocephalic and atraumatic. Right Ear: External ear normal. Left Ear: External ear normal. Nose: Nose normal. Eyes: General: No scleral icterus. Right eye: No discharge. Left eye: No discharge. Pupils: Pupils are equal, round, and reactive to light. Neck: Thyroid: No thyromegaly. Vascular: No carotid bruit or JVD. Cardiovascular: Rate and Rhythm: Normal rate and regular rhythm. Heart sounds: Murmur heard. Crescendo decrescendo systolic murmur is present with a grade of 1/6. No friction rub. No gallop. Pulmonary: Effort: Pulmonary effort is normal. No respiratory distress. Breath sounds: Normal breath sounds. No wheezing or rales. Abdominal: General: Bowel sounds are normal. Palpations: Abdomen is soft. Musculoskeletal: General: Normal range of motion. Cervical back: Neck supple. Skin: General: Skin is warm and dry. Capillary Refill: Capillary refill takes less than 2 seconds. Coloration: Skin is not pale. Neurological: Mental Status: He is alert and oriented to person, place, and time. Cranial Nerves: No cranial nerve deficit. Psychiatric: Mood and Affect: Mood normal. Mood is not anxious or depressed. Behavior: Behavior normal. Thought Content: Thought content normal. Judgment: Judgment normal. Review of Systems Constitutional: Negative for activity change, appetite change, fatigue and unexpected weight change. HENT: Negative for ear pain and trouble swallowing. Eyes: Negative for pain and visual disturbance. Respiratory: Positive for cough and shortness of breath. Negative for chest tightness. Cardiovascular: Negative for chest pain, palpitations and leg swelling. Gastrointestinal: Negative for abdominal pain and blood in stool. Endocrine: Negative for cold intolerance and heat intolerance. Genitourinary: Negative for dysuria, hematuria and scrotal swelling. Musculoskeletal: Negative for arthralgias and myalgias. Skin: Negative for pallor and rash. Allergic/Immunologic: Negative for immunocompromised state. Neurological: Negative for dizziness, syncope and light-headedness. Hematological: Negative for adenopathy. Does not bruise/bleed easily. Psychiatric/Behaviora l: Negative for sleep disturbance. The patient is not nervous/anxious. PAST MEDICAL HISTORY Diagnosis Date Asthma CAD (coronary artery disease) Chronic obstructive pulmonary disease (COPD) ([facility]) Diastolic congestive heart failure (HCC) 03/11/2022 Dyslipidemia Flutter-fibrillation (HCC) Heart attack (HCC) Hypertension NSTEMI (non-ST elevated myocardial infarction) ([facility]) 05/2018 Stroke ([facility]) Thyroid disease TIA (transient ischemic attack) PAST SURGICAL HISTORY Procedure Laterality Date CARDIAC CATHETERIZATION HX 05/2017 1 stent Social History Tobacco Use Smoking status: Former Types: Cigarettes Quit date: 03/03/2005 Years since quittin.5 Smokeless tobacco: Current Types: Snuff Vaping Use Vaping Use: Never used Substance Use Topics Alc (more content not included)... [facility] 09-02-2023 [facility] Telephone (CARMED) CHERYL DE LA FUENTE ([id number]) 1950 M Date Time Provider Department 09/02/23 IDANIA FRAIRE During your visit today, we recorded the following information about you: Arslan Radford LPN 09/02/2023 1:54 PM Signed Please call daughter Ashtyn, at [phone], to schedule his 6 mo f/u. Lo Disla 09/03/2023 10:23 AM Signed First Attempt- Called pts daughter and left vm to call back to schedule Narda Arias 09/03/2023 10:38 AM Signed Daughter called back and patient was scheduled for 03/08/[address] Fraire. Allergies As of Date: 09/02/2023 Noted Allergy Reaction CODEINE 05/26/2017 16 - Unknown Date Reviewed: 09/02/2023 Reviewed by: Idania Fraire DO - Fully Assessed Reason for Visit: Appointment [[id number]] Cmt: 6 mo f/u Prescriptions as of 09/03/2023 - spironolactone (ALDACTONE) 25 mg tablet Take 0.5 tablets by mouth once daily. - metoprolol tartrate, short acting, (LOPRESSOR) 25 mg tablet 0.5 tablets by ORAL/FEEDING TUBE route once daily. - furosemide (LASIX) 20 mg tablet Take 1 tablet by mouth once daily. - TRELEGY ELLIPTA 100-62.5-25 mcg inhalation powder INHALE 1 PUFF DAILY DIRECTED - montelukast (SINGULAIR) 10 mg tablet Take 10 mg by mouth daily at bedtime. - predniSONE (DELTASONE) 10 mg tablet Take 10 mg by mouth once daily. - amLODIPine (NORVASC) 5 mg tablet Take by mouth. - losartan (COZAAR) 100 mg tablet - sertraline (ZOLOFT) 100 mg tablet - rivaroxaban (XARELTO) 20 mg tablet Take 1 tablet by mouth daily with dinner. - atorvastatin (LIPITOR) 80 mg tablet 1 tablet by ORAL/FEEDING TUBE route daily at bedtime. - senna-docusate (SENNA-S) 8.6-50 mg per tablet 1 tablet by ORAL/FEEDING TUBE route twice daily. - ipratropium-albuterol (DUONEB) 0.5 mg-3 mg(2.5 mg base)/3 mL nebu Inhale 3 mL as instructed every 4 hours as needed. - clopidogrel (PLAVIX) 75 mg tablet Take 1 tablet by mouth once daily. Do NOT stop taking without talking to your blind cleaner. - levothyroxine (SYNTHROID) 75 mcg tablet Take 75 mcg by mouth daily before breakfast. - MULTIVITAMIN TAB Take one(1) tablet daily. - albuterol sulfate(VENTOLIN HFA 90 MCG/ACTUATION AEROSOL INHALER) 2 puffs every 4 hours as needed Problem List As Of Date 09/02/2023 Noted Resolved COPD (chronic obstructive pulmonary disease) (H*08/18/2009 05/28/2017 Stroke (HCC) [I63.9] Primary hypertension [I10] Heart attack (HCC) [I21.9] 05/28/2017 Chronic obstructive pulmonary disease (COPD) (H* 05/28/2017 Chest pain [R07.9] 05/27/2017 05/28/2017 NSTEMI (non-ST elevated myocardial infarction) *05/28/2017 UTI (urinary tract infection) [N39.0] 05/28/2017 HLD (hyperlipidemia) [E78.5] 05/28/2017 CAD (coronary artery disease) [I25.10] Acute CVA (cerebrovascular accident) (HCC) [I63*05/30/2017 Urinary hesitancy [R39.11] 05/30/2017 Paroxysmal atrial fibrillation (HCC) [I48.0] 11/20/2020 Post PTCA [Z98.61] 11/20/2020 SOB (shortness of breath) [R06.02] 03/11/2022 Diastolic congestive heart failure (HCC) [I50.3*03/11/2022 Presence of drug coated stent in left circumfle*03/04/2023 USP current use of anticoagulant [Z79.01] 03/04/2023 Nonrheumatic aortic valve stenosis [I35.0] 09/02/2023 Ascending aorta dilatation (HCC) [I77.810] 09/02/2023 Encounter Status:Closed by LO DISLA on 09/03/23 [facility] ECHOon 07-09-2023 Echocardiography Echocardiography Report: Transthoracic Echo [facility] Date of service: 07/09/2023 1:13:30 PM REPROCESSING ASSOCIATE Ordering physician: IDANIA FRAIRE Indication: Evaluation of known heart failure to guide therapy Technologist: Selma Aguilar Interpreting physician: Nicole Arthur DO PATIENT: Name: MR. CHERYL DE LA FUENTE : 1950 Age: 72 years Gender: M History of coronary artery disease, hypertension, dyslipidemia and arrhythmia. Previous cardiovascular interventions: PCI (2020) Primary rhythm: sinus. Height: 182.90 cm BSA: 2.12 m Weight: 88.70 kg BMI: 26.5 kg/m Heart rate 62 bpm Blood pressure 112/68 mmHg Technically difficult exam due to body habitus. Color Doppler was utilized to interrogate the cardiac valves assessed and spectral Doppler was utilized to determine the flow velocities and pressure gradients reported in this exam. Myocardial strain analysis was performed in this exam to aid in the assessment of cardiac function. MEASUREMENTS: Value Indexed Normal Max aortic dimension 3.9 cm Ao < 3.8 Left atrial volume 34 ml (4ch A-L) 16 ml/m Patricia <= 34 LV ID (diastole) 4.6 cm (2D) 2.19 cm/m LV ID (systole) 3.5 cm (2D) 1.63 cm/m IVS, leaflet tips 1.0 cm (2D) Posterior wall thickness 1.0 cm (2D) Left ventricular mass 163 g (2D) 77 g/m Global peak long strain -15.0 % LV stroke volume 43 ml (2D biplane) LVOT stroke volume 79 ml 37 ml/m LV end diastolic volume 80 ml (2D biplane) 37.7 ml/m 34<=EDVi<75 LV end systolic volume 37 ml (2D biplane) 17.4 ml/m Ejection Fraction 54 % (2D biplane) EF > 52 FINDINGS: LEFT VENTRICLE The left ventricle is normal in size. Left ventricular systolic function is normal. Global LV myocardial strain is borderline abnormal. Grade I left ventricular diastolic dysfunction. Mitral annular lateral E/e': 5.7. Mitral annular septal E/e': 11.6. Wall Motion: The basal inferolateral segment, basal inferior segment, and basal inferoseptal segment are mildly hypokinetic. All remaining scored segments are normal. RIGHT VENTRICLE The right ventricle is normal in size. Right ventricular systolic function is normal. RV systolic tissue Doppler velocity is 10.3 cm/s. Tricuspid annular displacement is 2.0 cm. Estimated right ventricular systolic pressure is likely underestimated due to a weak or incomplete tricuspid regurgitation signal and is, at least, 34 mmHg consistent with normal pulmonary artery pressures. Estimated right atrial pressure is 8 mmHg based on IVC assessment. LEFT ATRIUM The left atrial cavity is normal in size. Pulmonary Veins: The pulmonary venous pattern showed normal systolic flow. RIGHT ATRIUM The right atrial cavity is normal in size. Inferior Vena Cava: The inferior vena cava appears normal measuring 1.7 cm. The vessel decreases less than 50 percent with inspiration. MITRAL VALVE There is mild mitral annular calcification observed posterior. There is mild (1+) mitral valve regurgitation. There is no thickening. The pressure half time is 66 msec. The peak mitral E/A ratio is 0.67. The average mitral E/e' ratio is 8.6. The mitral flow deceleration time is 228 msec. TRICUSPID VALVE The tricuspid valve leaflets are structurally normal. There is trace tricuspid valve regurgitation. AORTIC VALVE There is mild aortic valve stenosis caused by calcified valve and restricted opening. There is mild (1+ - 2+) aortic valve regurgitation. There is moderate thickening. There is moderate calcification. The peak gradient is 23 mmHg (peak velocity = 242.0 cm/s). The mean gradient is 13 mmHg. The LVOT mean velocity is 46.8 cm/s. The LVOT diameter is 2.4 cm. The aortic VTI is 48.1 cm. The mean velocity in the aortic valve is 167.0 cm/s. The dimensionless valve index is 0.36. AV area is 1.64 cm (0.77 cm /m ) by continuity, VTI. The LVOT stroke volume index is 37 ml/m . PULMONIC VALVE The pulmonic valve was not seen or not interrogated. AORTA The visualized aorta is borderline dilated. Measurements - Aortic valve annulus 2.5 cm. Sinus: 3.9 cm. PULMONARY ARTERIES The pulmonary arteries are unseen or not interrogated. INTERATRIAL SEPTUM There is no evidence of intracardiac shunting as detected by Doppler. INTERVENTRICULAR SEPTUM There is no flow through the interventricular septum as detected by Doppler. PERICARDIUM There is no pericardial effusion. There is an epicardial fat pad. CONCLUSIONS: - Technically difficult exam due to body habitus. - Exam indication: Evaluation of known heart failure to guide therapy - The left ventricle is normal in size. Left ventricular systolic function is normal. EF = 54 5% (2D biplane) Grade I left ventricular diastolic dysfunction. - The right ventricle is normal in size. Right ventricular systolic function is normal. - The visualized aorta is borderline dilated with a maximal dimensio (more content not included)... Normal [facility] Absolute lymphocyte countOrd ered By: Ashlee Lanier on 04-16-2023 Lymphocytes Auto (Unsp spec) [#/Vol] 1.54 10*3/uL 0.83-4.51 [facility] Automated lymphocyte count a s percentage of total leukocytesOrdered By: Ashlee Lanier on 04-16-2023 Lymphocytes/100 WBC Auto (Unsp spec) 14.8 % 19-41 [facility] Basophil percentageOrdered B y: Aslhee Lanier on 04-16-2023 Basophils/100 WBC (Bld) 0.7 % 0-1 [facility] Bilirubin [Mass/Vol] 0.40 mg/dL 0.20-1.00 [facility] Comment on above: For patients on eltr ombopag therapy, use of Dimension [place] TBIL is not recommended. Chloride [Moles/Vol] 109 mmol/L 98-107 [facility] Eosinophils/100 WBC (Bld) 1.1 % 0-5 [facility] Glucose [Mass/Vol] 82 mg/dL 74-106 [facility] Hemoglobin (Bld) [Mass/Vol] 13.8 g/dL 13.0-16.5 [facility] Monocytes/100 WBC (Bld) 8.2 % 0-10 [facility] Neutrophils (Bld) [#/Vol] 7.7 10*3/uL 2.0-7.7 [facility] Neutrophils/100 WBC (Bld) 74.0 % 47-70 [facility] Potassium [Moles/Vol] 3.8 mmol/L 3.5-5.1 [facility] Protein [Mass/Vol] 6.8 g/dL 6.4-8.2 [facility] Sodium [Moles/Vol] 141 mmol/L 136-145 [facility] WBC (Bld) [#/Vol] 10.4 10*3/uL 4.4-11.0 [facility] Determination of erythrocyte mean corpuscular volume (MCV)Ordered By: Ashlee Lanier on 04-16-2023 MCV (RBC) [Entitic vol] 98.7 fL 80-94 [facility] Erythrocyte distribution wid th ratioOrdered By: Ashlee Lanier on 04-16-2023 Erythrocyte distribution width (RBC) [Ratio] 13.7 % 11.6-14.6 [facility] Erythrocyte distribution wid th standard deviationOrdered By: Ashlee Lanier on 04-16-2023 Erythrocyte distribution width (RBC) [Entitic vol] 49.6 fL 35.1-43.9 [facility] Hematocrit Auto (Bld) [Volum e fraction]Ordered By: Ashlee Lanier on 04-16-2023 Hematocrit (Bld) [Volume fraction] 44.8 % 40-54 [facility] Immature granulocytes/100 WB C Auto (Bld)Ordered By: Ashlee Lanier on 04-16-2023 Immature granulocytes/100 WBC (Bld) 1.200 % 0.0-0.9 [facility] Comment on above: IG% - Immature Granu locytes (promyelocytes, myelocytes and metamyelocytes) > 1% indicates that a LEFT SHIFT is Present. Laboratory - Chemistry and C hemistry - challengeOrdered By: Ashlee Lanier on 04-16-2023 Albumin/Globulin [Mass ratio] 0.8 {ratio} 0.9-2.4 [facility] ALP [Catalytic activity/Vol] 90 U/L 45-117 [facility] ALT [Catalytic activity/Vol] 54 U/L 16-61 [facility] CO2 [Moles/Vol] 26.0 mmol/L 21.0-32.0 [facility] Cobalamin (Vitamin B12) [Mass/Vol] 303 pg/mL 211-911 [facility] Globulin (S) [Mass/Vol] 3.8 g/dL 2.2-4.2 [facility] Magnesium [Mass/Vol] 2.1 mg/dL 1.6-2.6 [facility] Urea nitrogen/Creatinine [Mass ratio] 26.7 mg/mg 10-20 [facility] Laboratory - Hematology and Cell countsOrdered By: Ashlee Lanier on 04-16-2023 MCH (RBC) [Entitic mass] 30.4 pg 27.0-32.0 [facility] MCHC (RBC) [Mass/Vol] 30.8 g/dL 32-36 [facility] Nucleated RBC/100 WBC (Bld) [Ratio] 0 % 0-5 [facility] Platelet mean volume (Bld) [Entitic vol] 9.0 fL 6.2-12.0 [facility] Platelets (Bld) [#/Vol] 272 10*3/uL 150-450 [facility] No Panel InformationOrdered By: Ashlee Lanier on 04-16-2023 Estimated GFR (MDRD) Amer 76 mL/min >60 [facility] Comment on above: GFR Calc Estimated GFR (MDRD) Non-Af Amer 63 mL/min >60 [facility] Comment on above: Non- GFR Calc Free Triiodothyronine (T3) pg/dL 2.1 pg/mL 2.18-3.98 [facility] Prostate Specific Antigen Screen 3.86 ng/mL 0.00-4.00 [facility] Comment on above: This test was perfor med using the TPSA assay method for the[facility] chemistry system. Values obtained with differentassay methods cannot be used interchangably.When changing PSA assays in the course of monitoring apatient, additional sequential testing should be carriedout to confirm baseline values. Vitamin D 25-Hydroxy 27.3 ng/mL [facility] Comment on above: Vitamin D 25(OH) Sta tus Range Deficiency <20 ng/mL (50nmol/L) Insufficiency 20 - 30 ng/mL (50 - 75 nmol/L) Sufficiency 30 - 100 ng/mL (75 - 250 nmol/L) Toxicity >100 ng/mL (>250 nmol/L) RBC Auto (Bld) [#/Vol]Ordere d By: Ashlee Lanier on 04-16-2023 RBC (Bld) [#/Vol] 4.54 10*6/uL 4.6-6.2 [facility] Serum or plasma calcium lida urement (mass/volume)Ordered By: Ashlee Lanier on 04-16-2023 Calcium [Mass/Vol] 9.1 mg/dL 8.5-10.1 [facility] Serum or plasma creatinine m easurement (mass/volume)Ordered By: Ashlee Lanier on 04-16-2023 Creatinine [Mass/Vol] 1.20 mg/dL 0.70-1.30 [facility] Comment on above: The validity of the calculated GFR & GFRAA in patients over 70 years has not been determined. Clinical correlation is essential. Serum or plasma thyroid stim ulating hormone (TSH) measurement (units/volume)Ordered By: Ashlee Lanier on 04-16-2023 TSH Qn 1.95 uIU/mL 0.358-3.74 [facility] Serum or plasma urea nitroge n measurement (mass/volume)Ordered By: Ashlee Lanier on 04-16-2023 Urea nitrogen [Mass/Vol] 32 mg/dL 7-18 [facility] Thin prep Papanicolaou smear with manual screeningOrdered By: Ashlee Lanier on 04-16-2023 Thin prep Papanicolaou smear with manual screening 3.0 g/dL 3.2-5.0 [facility] Thin prep Papanicolaou smear with manual screening 34 U/L 15-37 [facility] Thin prep Papanicolaou smear with manual screening 6 5-15 [facility] Thin prep Papanicolaou smear with manual screening 0.83 ng/dL 0.76-1.46 [facility] Whole blood hemoglobin A1c/t otal hemoglobin ratio (mass fraction)Ordered By: Ashlee Lanier on 04-16-2023 HbA1c (Bld) [Mass fraction] 5.7 % 3.8-5.6 [facility] Comment on above: Normal < 5.7 % Predi abetic 5.7 - 6.4 % Diabetic >or= 6.5 % Please note range changes. Bacteria identified Cx Nom ( Unsp spec)Ordered By: Krnual Mcdonald on 03-21-2023 Interpretation and review of laboratory results Abnormal [facility] Microscopic observation Gram stain Nom (Unsp spec) No polymorphonuclear leukocytes seen [facility] Microscopic observation Gram stain Nom (Unsp spec) No organisms seen [facility] Routine susceptibility testing is not performed. Streptococcus pyogenes is uniformly susceptible to beta-lactam antibiotics and vancomycin. [facility] Basic metabolic 2000 panelon 03-21-2023 Anion gap [Moles/Vol] 13 mmol/L 10 - 2 0 mmol/L [facility] Calcium [Mass/Vol] 8.4 mg/dL Low 8.6 - 10. 3 mg/dL [facility] Chloride [Moles/Vol] 108 mmol/L High 98 - 10 7 mmol/L [facility] CO2 [Moles/Vol] 22 mmol/L 21 - 32 mmol/L [facility] Creatinine [Mass/Vol] 1.20 mg/dL 0.50 - 1.30 mg/dL [facility] GFR/1.73 sq M.predicted among non-blacks MDRD (S/P/Bld) [Vol rate/Area] 63 mL/min/{1.73_m2} - PINF [facility] Comment on above: Calculations of etelvina mated GFR are performed using the 2021 CKD-EPI Study Refit equation without the race variable for the IDMS-Traceable creatinine methods. https://jasn.asnjournals.org/content/ASN 377797 Glucose [Mass/Vol] 85 mg/dL 74 - 99 mg/dL [facility] Interpretation and review of laboratory results Abnormal [facility] Potassium [Moles/Vol] 3.5 mmol/L 3.5 - 5.3 mmol/L [facility] Sodium [Moles/Vol] 139 mmol/L 136 - 145 mmol/L [facility] Urea nitrogen [Mass/Vol] 23 mg/dL 6 - 23 mg/dL [facility] CBC panel Auto (Bld)on 03-21 Erythrocyte distribution width (RBC) [Ratio] 12.6 % 11.5 - 14.5 % [facility] Hematocrit (Bld) [Volume fraction] 36.2 % Low 41.0 - 52.0 % [facility] Hemoglobin (Bld) [Mass/Vol] 11.3 g/dL Low 13.5 - 17.5 g/dL [facility] Interpretation and review of laboratory results Abnormal [facility] MCH (RBC) [Entitic mass] 30.4 pg 26.0 - 34.0 pg [facility] MCHC (RBC) [Mass/Vol] 31.2 g/dL Low 32.0 - 36.0 g/dL [facility] MCV (RBC) [Entitic vol] 97 fL 80 - 100 fL [facility] Nucleated RBC/100 WBC (Bld) [Ratio] 0.0 % [facility] Platelets (Bld) [#/Vol] 297 10*3/uL [facility] RBC (Bld) [#/Vol] 3.72 10*6/uL Low Unive [facility] WBC (Bld) [#/Vol] 12.6 10*3/uL High [facility] Tissue/Wound Culture/SmearOr dered By: Krunal Mcdonald on 03-21-2023 Bacteria identified Cx Nom (Unsp spec) (1+) Rare Streptococcus pyogenes (Group A Streptococcus) Abnormal [facility] Basic metabolic 2000 panelon 03-20-2023 Anion gap [Moles/Vol] 10 mmol/L 10 - 2 0 mmol/L [facility] Calcium [Mass/Vol] 8.2 mg/dL Low 8.6 - 10. 3 mg/dL [facility] Chloride [Moles/Vol] 110 mmol/L High 98 - 10 7 mmol/L [facility] CO2 [Moles/Vol] 23 mmol/L 21 - 32 mmol/L [facility] Creatinine [Mass/Vol] 0.97 mg/dL 0.50 - 1.30 mg/dL [facility] GFR/1.73 sq M.predicted among non-blacks MDRD (S/P/Bld) [Vol rate/Area] 82 mL/min/{1.73_m2} - PINF [facility] Comment on above: Calculations of etelvina mated GFR are performed using the 2020 CKD-EPI Study Refit equation without the race variable for the IDMS-Traceable creatinine methods. https://jasn.asnjournals.org/content/early//ASN.2020 260422 Glucose [Mass/Vol] 98 mg/dL 74 - 99 mg/dL [facility] Interpretation and review of laboratory results Abnormal [facility] Potassium [Moles/Vol] 3.7 mmol/L 3.5 - 5.3 mmol/L [facility] Sodium [Moles/Vol] 139 mmol/L 136 - 145 mmol/L [facility] Urea nitrogen [Mass/Vol] 24 mg/dL High 6 - 23 mg/dL [facility] CBC panel Auto (Bld)on 03-20 Erythrocyte distribution width (RBC) [Ratio] 12.8 % 11.5 - 14.5 % [facility] Hematocrit (Bld) [Volume fraction] 34.5 % Low 41.0 - 52.0 % [facility] Hemoglobin (Bld) [Mass/Vol] 10.6 g/dL Low 13.5 - 17.5 g/dL [facility] Interpretation and review of laboratory results Abnormal [facility] MCH (RBC) [Entitic mass] 30.1 pg 26.0 - 34.0 pg [facility] MCHC (RBC) [Mass/Vol] 30.7 g/dL Low 32.0 - 36.0 g/dL [facility] MCV (RBC) [Entitic vol] 98 fL 80 - 100 fL [facility] Nucleated RBC/100 WBC (Bld) [Ratio] 0.0 % [facility] Platelets (Bld) [#/Vol] 291 10*3/uL [facility] RBC (Bld) [#/Vol] 3.52 10*6/uL Low [facility] WBC (Bld) [#/Vol] 14.1 10*3/uL High [facility] No Panel Informationon 03-20 [facility] Vancomycin trough [Mass/Vol] on 03-20-2023 Interpretation and review of laboratory results Normal [facility] Vancomycin, Troughon 024 Vancomycin trough [Mass/Vol] 13.3 ug/mL 5.0 - 20.0 ug/mL [facility] Comment on above: Therapeutic Ranges: Peak (all ages): 30.0-40.0 ug/mL Trough (all ages): 10.0-20.0 ug/mL Vancomycin trough concentrations drawn immediately prior to the next dose at steady-state are preferred for concentration-guided monitoring of patients treated with vancomycin. Reference: Am J Health-Syst Pharm. 2020; 77(11):835-864. CBC panel Auto (Bld)on 03-19 Erythrocyte distribution width (RBC) [Ratio] 12.7 % 11.5 - 14.5 % [facility] Hematocrit (Bld) [Volume fraction] 36.0 % Low 41.0 - 52.0 % [facility] Hemoglobin (Bld) [Mass/Vol] 11.4 g/dL Low 13.5 - 17.5 g/dL [facility] Interpretation and review of laboratory results Abnormal [facility] MCH (RBC) [Entitic mass] 30.6 pg 26.0 - 34.0 pg [facility] MCHC (RBC) [Mass/Vol] 31.7 g/dL Low 32.0 - 36.0 g/dL [facility] MCV (RBC) [Entitic vol] 97 fL 80 - 100 fL [facility] Nucleated RBC/100 WBC (Bld) [Ratio] 0.0 % [facility] [facility] Plate[facility] (Bld) [#/Vol] 306 10*3/uL [facility] RBC (Bld) [#/Vol] 3.72 10*6/uL [facility] [#/Vol] 18.8 10*3/uL [facility] 2000 panelon 03-19-2023 Albumin BCP dye [Mass/Vol] 2.9 g/dL Low 3.4 - 5.0 g/dL [facility] ALP [Catalytic activity/Vol] 69 U/L 33 - 136 U/L [facility] ALT With P-5'-P [Catalytic activity/Vol] 26 U/L 10 - 52 U/L [facility] Comment on above: Patients treated wit h Sulfasalazine may generate falsely decreased results for ALT. Anion gap [Moles/Vol] 14 mmol/L 10 - 2 0 mmol/L [facility] AST With P-5'-P [Catalytic activity/Vol] 36 U/L 9 - 39 U/L [facility] Bilirubin [Mass/Vol] 0.5 mg/dL 0.0 - 1 .2 mg/dL [facility] Calcium [Mass/Vol] 8.6 mg/dL 8.6 - 10. 3 mg/dL [facility] Chloride [Moles/Vol] 107 mmol/L 98 - 10 7 mmol/L [facility] CO2 [Moles/Vol] 22 mmol/L 21 - 32 mmol/L [facility] Creatinine [Mass/Vol] 1.17 mg/dL 0.50 - 1.30 mg/dL [facility] GFR/1.73 sq M.predicted among non-blacks MDRD (S/P/Bld) [Vol rate/Area] 65 mL/min/{1.73_m2} - PINF [facility] Comment on above: Calculations of etelvina mated GFR are performed using the 2020 CKD-EPI Study Refit equation without the race variable for the IDMS-Traceable creatinine methods. https://jasn.asnjournals.org/content/early/ASN.2020 744869 Glucose [Mass/Vol] 123 mg/dL High 74 - 99 mg/dL [facility] Interpretation and review of laboratory results Abnormal [facility] Potassium [Moles/Vol] 3.5 mmol/L 3.5 - 5.3 mmol/L [facility] Protein [Mass/Vol] 5.7 g/dL Low 6.4 - 8.2 g/dL [facility] Sodium [Moles/Vol] 139 mmol/L 136 - 145 mmol/L [facility] Urea nitrogen [Mass/Vol] 30 mg/dL High 6 - 23 mg/dL [facility] No Panel Informationon 03-19 1. Areas of subcutaneous edema extends along the lateral aspect of the calf as well as the proximal medial aspect of the calf and along the medial malleolus. No localized collection suggestive of abscess is noted. No underlying bony abnormality suggestive of osteomyelitis are noted. 2. Right popliteal cyst containing multiple loose bodies. MACRO: None Signed by: Jose Juan De Leon 03/19/2023 1:51 PM Dictation workstation: [id number] [facility] Interpreted By: Jose Juan De Leon, STUDY: CT FOOT RIGHT W IV CONTRAST; CT TIBIA FIBULA RIGHT W IV CONTRAST; ; 03/18/2023 4:38 pm INDICATION: Signs/Symptoms:eval infection; Signs/Symptoms:infect ion. Right lower extremity wound with concern for infection, dog scratch dim 3 weeks ago, wound became painful in red 10 days ago. Skin discontinuity along medial posterior right ankle COMPARISON: None. ACCESSION NUMBER(S): [id number]; [id number] ORDERING CLINICIAN: PALOMO FARNSWORTH TECHNIQUE: Intravenous contrast enhanced CT images of the right leg/foot were obtained using 70 mL Omnipaque 350. FINDINGS: The lateral aspect of the right leg has edema/inflammation in the subcutaneous tissue extending inferiorly from the knee joint to the lateral malleolus. The medial aspect of the left lower extremity has ill-defined areas of edema versus cellulitis proximally from the knee to the mid calf with additional area of edema/inflammation in the subcutaneous tissues along the medial malleolus extending nearly to the plantar aspect of the foot. No localized fluid collections within the areas of edema/inflammation suggestive of abscess are noted. The medial aspect of the right knee joint has a 2 cm diameter 5.7 cm length popliteal cyst containing for and possibly 5 calcified loose bodies, the largest 1.3 cm. No intramuscular mass/abscess is noted. The popliteal artery has mixed density plaque with less than 20% stenosis. Three-vessel runoff is present distally with the anterior tibial and posterior tibial vessels crossing into the foot. No fractures or dislocations of the tibia/fibula/foot are noted. No bony erosions suggestive of osteomyelitis are noted. [facility] Jose Juan De Leon MD - 03/19/2023 Interpreted By: Jose Juan De Leon, STUDY: CT FOOT RIGHT W IV CONTRAST; CT TIBIA FIBULA RIGHT W IV CONTRAST; ; 03/18/2023 4:38 pm INDICATION: Signs/Symptoms:eval infection; Signs/Symptoms:infect ion. Right lower extremity wound with concern for infection, dog scratch dim 3 weeks ago, wound became painful in red 10 days ago. Skin discontinuity along medial posterior right ankle COMPARISON: None. ACCESSION NUMBER(S): [id number]; [id number] ORDERING CLINICIAN: PALOMO FARNSWORTH TECHNIQUE: Intravenous contrast enhanced CT images of the right leg/foot were obtained using 70 mL Omnipaque 350. FINDINGS: The lateral aspect of the right leg has edema/inflammation in the subcutaneous tissue extending inferiorly from the knee joint to the lateral malleolus. The medial aspect of the left lower extremity has ill-defined areas of edema versus cellulitis proximally from the knee to the mid calf with additional area of edema/inflammation in the subcutaneous tissues along the medial malleolus extending nearly to the plantar aspect of the foot. No localized fluid collections within the areas of edema/inflammation suggestive of abscess are noted. The medial aspect of the right knee joint has a 2 cm diameter 5.7 cm length popliteal cyst containing for and possibly 5 calcified loose bodies, the largest 1.3 cm. No intramuscular mass/abscess is noted. The popliteal artery has mixed density plaque with less than 20% stenosis. Three-vessel runoff is present distally with the anterior tibial and posterior tibial vessels crossing into the foot. No fractures or dislocations of the tibia/fibula/foot are noted. No bony erosions suggestive of osteomyelitis are noted. IMPRESSION: 1. Areas of subcutaneous edema extends along the lateral aspect of the calf as well as the proximal medial aspect of the calf and along the medial malleolus. No localized collection suggestive of abscess is noted. No underlying bony abnormality suggestive of osteomyelitis are noted. 2. Right popliteal cyst containing multiple loose bodies. MACRO: None Signed by: Jose Juan De Leon 03/19/2023 1:51 PM Dictation workstation: [id number] [facility] Work Phone: 1. No evidence of acute fracture or dislocation. MACRO: None. Signed by: Tariq Zamora 03/19/2023 11:37 AM Dictation workstation: [id number] [facility] Interpreted By: Tariq Zamora, STUDY: XR ANKLE RIGHT 3+ VIEWS; XR TIBIA FIBULA RIGHT 2 VIEWS; XR FOOT RIGHT 3+ VIEWS; 03/18/2023 10:22 pm INDICATION: Signs/Symptoms:infect ion wound , injury; Signs/Symptoms:infect ion. COMPARISON: None. ACCESSION NUMBER(S): [id number]; [id number]; [id number] ORDERING CLINICIAN: LIBERTAD BERKOWITZ TECHNIQUE: Three views each of the right foot and ankle including AP , oblique and lateral projections and four views of the right tibia/fibula including AP and lateral projections were obtained. FINDINGS: Mild soft tissue swelling is seen throughout the right lower leg. There is no evidence of acute fracture or dislocation identified. The joint spaces are well preserved without significant degenerative changes. [facility] Tariq Zamora MD - 03/19/2023 Interpreted By: Tariq Zamora, STUDY: XR ANKLE RIGHT 3+ VIEWS; XR TIBIA FIBULA RIGHT 2 VIEWS; XR FOOT RIGHT 3+ VIEWS; 03/18/2023 10:22 pm INDICATION: Signs/Symptoms:infect ion wound , injury; Signs/Symptoms:infect ion. COMPARISON: None. ACCESSION NUMBER(S): [id number]; [id number]; [id number] ORDERING CLINICIAN: LIBERTAD BERKOWITZ TECHNIQUE: Three views each of the right foot and ankle including AP , oblique and lateral projections and four views of the right tibia/fibula including AP and lateral projections were obtained. FINDINGS: Mild soft tissue swelling is seen throughout the right lower leg. There is no evidence of acute fracture or dislocation identified. The joint spaces are well preserved without significant degenerative changes. IMPRESSION: 1. No evidence of acute fracture or dislocation. MACRO: None. Signed by: Tariq Zamora 03/19/2023 11:37 AM Dictation workstation: [id number] [facility] Work Phone: [facility] No Panel InformationOrdered By: Jose Juan De Leon on 03-19-2023 [facility] Work Phone: No Panel InformationOrdered By: Tariq Zamora on 03-19-2023 [facility] Work Phone: Vancomycin trough [Mass/Vol] on 03-19-2023 Interpretation and review of laboratory results Normal [facility] Vancomycin, Troughon 024 Vancomycin trough [Mass/Vol] 11.5 ug/mL 5.0 - 20.0 ug/mL [facility] Comment on above: Therapeutic Ranges: Peak (all ages): 30.0-40.0 ug/mL Trough (all ages): 10.0-20.0 ug/mL Vancomycin trough concentrations drawn immediately prior to the next dose at steady-state are preferred for concentration-guided monitoring of patients treated with vancomycin. Reference: Am J Health-Syst Pharm. 2020; 77(11):835-864. Vascular US PVR without exer ciseon 03-19-2023 [place] [address] [phone], Vascular Lab Report [facility] US PVR WITHOUT EXERCISE Patient Name: CHERYL DE LA FUENTE [place] Physician: [id number] Terell Odom MD Study Date: 03/19/2023 Ordering Provider: [id number] PALOMO FARNSWORTH MRN/PID: [id number] Fellow: Technologist: James Mandel RVT Date of /Age: 9 1950 / 72 years Technologist 2: Camille Underwood RVT/AB Gender: M Admission Status: Inpatient Location Performed: [facility] Diagnosis/ICD: Peripheral vascular disease, unspecified-I73.9 CPT Codes: 52107 Peripheral artery MARISSA Only CONCLUSIONS: Right Lower PVR: No evidence of arterial occlusive disease in the right lower extremity at rest. Normal digital perfusion noted. Triphasic flow is noted in the right posterior tibial artery, right dorsalis pedis artery and right common femoral artery. Left Lower PVR: No evidence of arterial occlusive disease in the left lower extremity at rest. Normal digital perfusion noted. Triphasic flow is noted in the left dorsalis pedis artery, left common femoral artery and left posterior tibial artery. Imaging & Doppler Findings: RIGHT Lower PVR Pressures Ratios Right Posterior Tibial (Ankle) 176 mmHg 1.26 Right Dorsalis Pedis (Ankle) 178 mmHg 1.27 Right Digit (Great Toe) 111 mmHg 0.79 LEFT Lower PVR Pressures Ratios Left Posterior Tibial (Ankle) 159 mmHg 1.14 Left Dorsalis Pedis (Ankle) 151 mmHg 1.08 Left Digit (Great Toe) 110 mmHg 0.79 Right Left Brachial Pressure 140 mmHg 140 mmHg [id number] Odom MD Final SYNGO Terell Babin MD - 03/19/2023 [place] [address] [phone], Vascular Lab Report VASC US PVR WITHOUT EXERCISE Patient Name: CHERYL Wade Physician: [id number] Terell Odom MD Study Date: 03/19/2023 Ordering Provider: [id number] PALOMO FARNSWORTH MRN/PID: [id number] Fellow: Technologist: James Mandel RVT Date of /Age: 9 1950 / 72 years Technologist 2: Camille Underwood RVPedro/AB Gender: M Admission Status: Inpatient Location Performed: [facility] Diagnosis/ICD: Peripheral vascular disease, unspecified-I73.9 CPT Codes: 42007 Peripheral artery MARISSA Only CONCLUSIONS: Right Lower PVR: No evidence of arterial occlusive disease in the right lower extremity at rest. Normal digital perfusion noted. Triphasic flow is noted in the right posterior tibial artery, right dorsalis pedis artery and right common femoral artery. Left Lower PVR: No evidence of arterial occlusive disease in the left lower extremity at rest. Normal digital perfusion noted. Triphasic flow is noted in the left dorsalis pedis artery, left common femoral artery and left posterior tibial artery. Imaging & Doppler Findings: RIGHT Lower PVR Pressures Ratios Right Posterior Tibial (Ankle) 176 mmHg 1.26 Right Dorsalis Pedis (Ankle) 178 mmHg 1.27 Right Digit (Great Toe) 111 mmHg 0.79 LEFT Lower PVR Pressures Ratios Left Posterior Tibial (Ankle) 159 mmHg 1.14 Left Dorsalis Pedis (Ankle) 151 mmHg 1.08 Left Digit (Great Toe) 110 mmHg 0.79 Right Left Brachial Pressure 140 mmHg 140 mmHg [id number] Terell Odom MD Final [facility] Work Phone: Radiology Study observation (narrative) [facility] Work Phone: Vascular US PVR without exer ciseOrdered By: Terell Schultz on 03-19-2023 [facility] Work Phone: XR Hand - right 3 Viewson 1. No fracture or dislocation. 2. Degenerative changes, as described above. MACRO: None. Signed by: Tariq Zamora 03/19/2023 3:42 PM Dictation workstation: [id number] [facility] Interpreted By: Tariq Zamora, STUDY: XR HAND RIGHT 3+ VIEWS 03/19/2023 1:43 pm INDICATION: Signs/Symptoms:Index finger paranychion COMPARISON: None. ACCESSION NUMBER(S): [id number] ORDERING CLINICIAN: NICOLE REAVES TECHNIQUE: Three views of the right hand including AP, oblique and lateral projections were obtained. FINDINGS: There is no evidence of acute fracture or dislocation identified. Moderate to severe hypertrophic degenerative changes are seen in the 2nd distal interphalangeal joint. [id number] degenerative changes are seen in the 3rd distal interphalangeal joint. Mild degenerative changes are seen in the remaining interphalangeal joints. [facility] Tariq Zamora MD - 03/19/2023 Interpreted By: Tariq Zamora, STUDY: XR HAND RIGHT 3+ VIEWS 03/19/2023 1:43 pm INDICATION: Signs/Symptoms:Index finger paranychion COMPARISON: None. ACCESSION NUMBER(S): [id number] ORDERING CLINICIAN: NICOLE REAVES TECHNIQUE: Three views of the right hand including AP, oblique and lateral projections were obtained. FINDINGS: There is no evidence of acute fracture or dislocation identified. Moderate to severe hypertrophic degenerative changes are seen in the 2nd distal interphalangeal joint. Yfga-[id number]-beixhhqy degenerative changes are seen in the 3rd distal interphalangeal joint. Mild degenerative changes are seen in the remaining interphalangeal joints. IMPRESSION: 1. No fracture or dislocation. 2. Degenerative changes, as described above. MACRO: None. Signed by: Tariq Zamora 03/19/2023 3:42 PM Dictation workstation: [id number] [facility] Work Phone: [facility] Work Phone: Radiology Study observation (narrative) [facility] Work Phone: C-reactive proteinon 024 CRP [Mass/Vol] 15.43 mg/dL High NINF - 1.00 mg/dL [facility] CRP [Mass/Vol]on 03-18-2023 Interpretation and review of laboratory results Abnormal [facility] ECG 12 leadOrdered By: Peace Kramer on 03-18-2023 Atrial Rate 101 BPM [facility] Work Phone: P [place] 55 degrees [facility] Work Phone: P Offset 184 ms [facility] Work Phone: P Onset 134 ms [facility] Work Phone: MN Interval 142 ms [facility] Work Phone: Q Onset 205 ms [facility] Work Phone: QRS Count 17 beats [facility] Work Phone: QRS Duration 108 ms [facility] Work Phone: QT Interval 338 ms [facility] Work Phone: QTC Calculation(Bazett) 438 ms [facility] Work Phone: QTC Fredericia 402 ms [facility] Work Phone: R [place] -4 degrees [facility] Work Phone: T [place] 92 degrees [facility] Work Phone: T Offset 374 ms [facility] Work Phone: Ventricular Rate 101 BPM [facility] Work Phone: [facility] Work Phone: ECG 12 leadon 03-18-2023 Sinus tachycardia Inferior infarct , age undetermined Abnormal ECG When compared with ECG of 06-JUN-2020 10:21, Previous ECG has undetermined rhythm, needs review Inferior infarct is now Present Nonspecific T wave abnormality no longer evident in Inferior leads Nonspecific T wave abnormality has replaced inverted T waves in Lateral leads See ED provider note for full interpretation and clinical correlation Confirmed by Josie Kramer ([id number]) on 03/18/2023 7:08:27 PM [place] Brandi Kramer, WOOD CUTTER-PIPE BENDER - 03/18/2023 Sinus tachycardia Inferior infarct , age undetermined Abnormal ECG When compared with ECG of 06-JUN-2020 10:21, Previous ECG has undetermined rhythm, needs review Inferior infarct is now Present Nonspecific T wave abnormality no longer evident in Inferior leads Nonspecific T wave abnormality has replaced inverted T waves in Lateral leads See ED provider note for full interpretation and clinical correlation Confirmed by Josie Kramer ([id number]) on 03/18/2023 7:08:27 PM [facility] Work Phone: ESR Westergren method (Bld) [Velocity]on 03-18-2023 ESR (Bld) [Velocity] 67 mm/h High 0 - 20 mm/h [facility] Interpretation and review of laboratory results Abnormal [facility] Lactateon 03-18-2023 Lactate [Moles/Vol] 1.0 mmol/L 0.4 - 2. 0 mmol/L [facility] Lactate [Moles/Vol] 2.1 mmol/L High 0.4 - 2. 0 mmol/L [facility] Lactate [Moles/Vol]on 2023 Interpretation and review of laboratory results Normal [facility] Venipuncture immediately after or during the administration of Metamizole may lead to falsely low results. Testing should be performed immediately prior to Metamizole dosing. [facility] Interpretation and review of laboratory results Abnormal [facility] Venipuncture immediately after or during the administration of Metamizole may lead to falsely low results. Testing should be performed immediately prior to Metamizole dosing. [facility] No Panel Informationon 03-18 Radiology Study observation (narrative) [facility] Work Phone: Radiology Study observation (narrative) [facility] Work Phone: ProcalcitoninOrdered By: Thao Bernal on 03-18-2023 Procalcitonin [Mass/Vol] 0.21 ng/mL High NINF - 0.07 ng/mL [facility] Procalcitonin [Mass/Vol]Orde red By: Felipe Bernal on 03-18-2023 Interpretation and review of laboratory results Abnormal [facility] Procalcitonin (PCT) results measured serially can aid in decision-making for antibiotic discontinuation in patients with suspected or confirmed sepsis in conjunction with additional clinical information. Antibiotic discontinuation may be considered with a change in PCT of >80% from the peak result or when PCT falls below 0.50 ng/mL. Procalcitonin results should not be used in isolation but should be interpreted in conjunction with additional clinical and laboratory findings. Procalcitonin results should not be used to guide the initiation of antibiotic therapy. Falsely low PCT values in the presence of bacterial infection may occur in early infection, with atypical pathogens, localized infections, and subacute infectious endocarditis. Falsely elevated results outside of severe bacterial infection/sepsis may be seen in patients with renal failure or insufficiency, severe trauma or padron, recent major abdominal/cardiac surgery, acute multi-organ failure, rarely in patients with medullary thyroid carcinoma and rare neuroendocrine tumors, and non-specific interfering antibodies (heterophile antibodies, rheumatoid factor, human anti-mouse antibodies (HAMA), etc). Performance of the PCT test in pediatric patients (<18yo), women, immunocompromised patients, and patients on immunomodulatory medications has not been evaluated. [facility] Heart TransthoracicOrdere d By: Arnold Otero on 03-18-2023 AV mn grad 3.0 [facility] Work Phone: AV pk grad 5.4 [facility] Work Phone: AV pk siddhartha 1.16 [facility] Work Phone: MV E/A ratio 0.48 [facility] Work Phone: Tricuspid annular plane systolic excursion 2.5 [facility] Work Phone: [facility] Work Phone: [place] [address] [phone], TRANSTHORACIC ECHOCARDIOGRAM REPORT Patient Name: CHERYL Wade Physician: [id number] Arnold Otero MD Study Date: 03/18/2023 Ordering Provider: [id number] PALOMO FARNSWORTH MRN/PID: [id number] Fellow: Nurse: Mariana Zamudio RN Date of /Age: 9 1950 / 72 years 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 No previous echo. Study Detail: The following Echo studies were performed: M-Mode, 2D, Doppler and color flow. Technically challenging study due to poor acoustic windows, patient lying in supine position and body habitus. Definity used as a contrast agent for endocardial border definition. Total contrast used for this procedure was 2 mL via IV push. A bubble study was not performed. The patient was awake. PHYSICIAN INTERPRETATION: Left Ventricle: Left ventricular systolic function was not well visualized. The left ventricular cavity size was not assessed. Left ventricular diastolic filling was not assessed. Left Atrium: The left atrium was not well visualized. Right Ventricle: The right ventricle was not well visualized. Unable to determine right ventricular systolic function. Right Atrium: The right atrium was not well visualized. Aortic Valve: The aortic valve was not well visualized. Aortic valve regurgitation was not assessed. The peak instantaneous gradient of the aortic valve is 5.4 mmHg. The mean gradient of the aortic valve is 3.0 mmHg. Mitral Valve: The mitral valve was not well visualized. Mitral valve regurgitation was not assessed. Tricuspid Valve: The tricuspid valve was not well visualized. Tricuspid regurgitation was not assessed. Pulmonic Valve: The pulmonic valve is not well visualized. The pulmonic valve regurgitation was not well visualized. Pericardium: There is no pericardial effusion noted. Aorta: The aortic root was not well visualized. CONCLUSIONS: 1. Non-diagnostic echocardiogram due to suboptimal image quality. 2. Left ventricular systolic function was not well visualized. QUANTITATIVE DATA SUMMARY: LV DIASTOLIC FUNCTION: Normal Ranges: MV Peak E: 0.54 m/s (0.7-1.2 m/s) MV Peak A: 1.13 m/s (0.42-0.7 m/s) E/A Ratio: 0.48 (1.0-2.2) MITRAL VALVE: Normal Ranges: MV DT: 194 msec (150-240msec) AORTIC VALVE: Normal Ranges: AoV Vmax: 1.16 m/s (<=1.7m/s) AoV Peak P.4 mmHg (<20mmHg) AoV Mean P.0 mmHg (1.7-11.5mmHg) LVOT Max Siddhartha: 0.95 m/s (<=1.1m/s) AoV VTI: 19.90 cm (18-25cm) LVOT VTI: 15.10 cm AoV Dimensionless Index: 0.76 RIGHT VENTRICLE: RV Basal 4.22 cm RV Mid 3.07 cm RV Major 9.0 cm TAPSE: 25.3 mm [id number] Arnold Otero MD Electronically signed on 03/18/2023 at 1:15:53 PM Final Arnold Mitchell MD - 03/18/2023 [place] [address] [phone], TRANSTHORACIC ECHOCARDIOGRAM REPORT Patient Name: CHERYL DE LA FUENTE [place] Physician: [id number] Arnold Otero MD Study Date: 03/18/2023 Ordering Provider: [id number] PALOMO FARNSWORTH MRN/PID: [id number] Fellow: Nurse: Mariana Zamudio RN Date of /Age: 9 1950 / 72 years 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 No previous echo. Study Detail: The following Echo studies were performed: M-Mode, 2D, Doppler and color flow. Technically challenging study due to poor acoustic windows, patient lying in supine position and body habitus. Definity used as a contrast agent for endocardial border definition. Total contrast used for this procedure was 2 mL via IV push. A bubble study was not performed. The patient was awake. PHYSICIAN INTERPRETATION: Left Ventricle: Left ventricular systolic function was not well visualized. The left ventricular cavity size was not assessed. Left ventricular diastolic filling was not assessed. Left Atrium: The left atrium was not well visualized. Right Ventricle: The right ventricle was not well visualized. Unable to determine right ventricular systolic function. Right Atrium: The right atrium was not well visualized. Aortic Valve: The aortic valve was not well visualized. Aortic valve regurgitation was not assessed. The peak instantaneous gradient of the aortic valve is 5.4 mmHg. The mean gradient of the aortic valve is 3.0 mmHg. Mitral Valve: The mitral valve was not well visualized. Mitral valve regurgitation was not assessed. Tricuspid Valve: The tricuspid valve was not well visualized. Tricuspid regurgitation was not assessed. Pulmonic Valve: The pulmonic valve is not well visualized. The pulmonic valve regurgitation was not well visualized. Pericardium: There is no pericardial effusion noted. Aorta: The aortic root was not well visualized. CONCLUSIONS: 1. Non-diagnostic echocardiogram due to suboptimal image quality. 2. Left ventricular systolic function was not well visualized. QUANTITATIVE DATA SUMMARY: LV DIASTOLIC FUNCTION: Normal Ranges: MV Peak E: 0.54 m/s (0.7-1.2 m/s) MV Peak A: 1.13 m/s (0.42-0.7 m/s) E/A Ratio: 0.48 (1.0-2.2) MITRAL VALVE: Normal Ranges: MV DT: 194 msec (150-240msec) AORTIC VALVE: Normal Ranges: AoV Vmax: 1.16 m/s (<=1.7m/s) AoV Peak P.4 mmHg (<20mmHg) AoV Mean P.0 mmHg (1.7-11.5mmHg) LVOT Max Siddhartha: 0.95 m/s (<=1.1m/s) AoV VTI: 19.90 cm (18-25cm) LVOT VTI: 15.10 cm AoV Dimensionless Index: 0.76 RIGHT VENTRICLE: RV Basal 4.22 cm RV Mid 3.07 cm RV Major 9.0 cm TAPSE: 25.3 mm [id number] Arnold Otero MD Electronically signed on 03/18/2023 at 1:15:53 PM Final [facility] Work Phone: CBC W Auto Differential pane l (Brittney)on 03-17-2023 Basophils (Bld) [#/Vol] 0.03 10*3/uL [facility] Basophils/100 WBC (Bld) 0.2 % 0.0 - 2.0 % [facility] Eosinophils (Bld) [#/Vol] 0.01 10*3/uL [facility] Eosinophils/100 WBC (Bld) 0.1 % 0.0 - 6.0 % [facility] Erythrocyte distribution width (RBC) [Ratio] 12.6 % 11.5 - 14.5 % [facility] Hematocrit (Bld) [Volume fraction] 43.8 % 41.0 - 52.0 % [facility] Hemoglobin (Bld) [Mass/Vol] 13.8 g/dL 13.5 - 17.5 g/dL [facility] Immature granulocytes (Bld) [#/Vol] 0.40 10*3/uL [facility] Immature granulocytes/100 WBC (Bld) 2.3 % High 0.0 - 0.9 % [facility] Comment on above: Immature Granulocyte Count (IG) includes promyelocytes, myelocytes and metamyelocytes but does not include bands. Percent differential counts (%) should be interpreted in the context of the absolute cell counts (cells/UL). Interpretation and review of laboratory results Abnormal [facility] Lymphocytes (Bld) [#/Vol] 0.92 10*3/uL [facility] Lymphocytes/100 WBC (Bld) 5.3 % 13.0 - 44.0 % [facility] MCH (RBC) [Entitic mass] 31.0 pg 26.0 - 34.0 pg [facility] MCHC (RBC) [Mass/Vol] 31.5 g/dL Low 32.0 - 36.0 g/dL [facility] MCV (RBC) [Entitic vol] 98 fL 80 - 100 fL [facility] Monocytes (Bld) [#/Vol] 1.06 10*3/uL High [facility] Monocytes/100 WBC (Bld) 6.1 % 2.0 - 10.0 % [facility] Neutrophils (Bld) [#/Vol] 14.82 10*3/uL High [facility] Comment on above: Percent differential counts (%) should be interpreted in the context of the absolute cell counts (cells/uL). Neutrophils/100 WBC (Bld) 86.0 % 40.0 - 80.0 % [facility] Nucleated RBC/100 WBC (Bld) [Ratio] 0.1 % [facility] Platelets (Bld) [#/Vol] 298 10*3/uL [facility] RBC (Bld) [#/Vol] 4.45 10*6/uL [facility] WBC (Bld) [#/Vol] 17.2 10*3/uL [facility] Chest W contrast IV and C T angiogram Pulmonary arteries for pulmonary embolus W contrast Moshe 03-17-2023 No acute pulmonary embolus to the segmental level. Moderate centrilobular emphysematous changes diffusely throughout the lungs Age-indeterminate height loss of the T11 and T12 vertebral bodies. Correlate with point tenderness. Calcifications scattered throughout the spleen which may be seen with sequela of granulomatous disease. 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 MACRO: None. Signed by: Rubén Waller 03/17/2023 11:02 PM Dictation workstation: [id number] [facility]AL Interpreted By: Rubén Waller, STUDY: CT ANGIO CHEST FOR PULMONARY EMBOLISM; 03/17/2023 10:31 pm INDICATION: Signs/Symptoms:dyspne a. COMPARISON: Chest radiograph 03/17/2023 ACCESSION NUMBER(S): [id number] ORDERING CLINICIAN: QUINN CAMARILLO TECHNIQUE: Axial CTA images of the chest after intravenous administration of 74 mL Omnipaque [address] angiographic technique. Coronal and sagittal images are reconstructed. MIP images were created and reviewed. FINDINGS: CHEST WALL AND LOWER NECK: Within normal limits. ABDOMEN: Calcifications scattered throughout the spleen. VASCULAR: AORTA: No aortic aneurysm or dissection. Mild atherosclerotic disease. 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 PULMONARY ARTERY: Normal caliber. No pulmonary embolus to the segmental level. CHEST: HEART: Normal size. No pericardial effusion. There are coronary artery calcifications. MEDIASTINUM AND BENNY: No pathologically enlarged thoracic lymph nodes. LUNG, PLEURA, LARGE AIRWAYS: Moderate centrilobular emphysematous changes diffusely throughout the lungs. Dependent atelectasis. BONES: Age-indeterminate height loss of the T11 and T12 vertebral bodies. [facility] Rubén Waller MD - 03/17/2023 Interpreted By: Rubén Waller, STUDY: CT ANGIO CHEST FOR PULMONARY EMBOLISM; 03/17/2023 10:31 pm INDICATION: Signs/Symptoms:dyspne a. COMPARISON: Chest radiograph 03/17/2023 ACCESSION NUMBER(S): [id number] ORDERING CLINICIAN: QUINN CAMARILLO TECHNIQUE: Axial CTA images of the chest after intravenous administration of 74 mL Omnipaque [address] angiographic technique. Coronal and sagittal images are reconstructed. MIP images were created and reviewed. FINDINGS: CHEST WALL AND LOWER NECK: Within normal limits. ABDOMEN: Calcifications scattered throughout the spleen. VASCULAR: AORTA: No aortic aneurysm or dissection. Mild atherosclerotic disease. 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 PULMONARY ARTERY: Normal caliber. No pulmonary embolus to the segmental level. CHEST: HEART: Normal size. No pericardial effusion. There are coronary artery calcifications. MEDIASTINUM AND BENNY: No pathologically enlarged thoracic lymph nodes. LUNG, PLEURA, LARGE AIRWAYS: Moderate centrilobular emphysematous changes diffusely throughout the lungs. Dependent atelectasis. BONES: Age-indeterminate height loss of the T11 and T12 vertebral bodies. IMPRESSION: No acute pulmonary embolus to the segmental level. Moderate centrilobular emphysematous changes diffusely throughout the lungs Age-indeterminate height loss of the T11 and T12 vertebral bodies. Correlate with point tenderness. Calcifications scattered throughout the spleen which may be seen with sequela of granulomatous disease. 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 MACRO: None. Signed by: Rubén Waller 03/17/2023 11:02 PM Dictation workstation: [id number] [facility] Work Phone: Radiology Study observation (narrative) [facility] Work Phone: CT Chest W contrast IV and C T angiogram Pulmonary arteries for pulmonary embolus W contrast IVOrdered By: Rubén Waller on 03-17-2023 [facility] Work Phone: Comprehensive metabolic 2000 panelon 03-17-2023 Albumin BCP dye [Mass/Vol] 3.3 g/dL Low 3.4 - 5.0 g/dL [facility] ALP [Catalytic activity/Vol] 80 U/L 33 - 136 U/L [facility] ALT With P-5'-P [Catalytic activity/Vol] 18 U/L 10 - 52 U/L [facility] Comment on above: Patients treated wit h Sulfasalazine may generate falsely decreased results for ALT. Anion gap [Moles/Vol] 17 mmol/L 10 - 2 0 mmol/L [facility] AST With P-5'-P [Catalytic activity/Vol] 25 U/L 9 - 39 U/L [facility] Bilirubin [Mass/Vol] 0.7 mg/dL 0.0 - 1 .2 mg/dL [facility] Calcium [Mass/Vol] 9.3 mg/dL 8.6 - 10. 3 mg/dL [facility] Chloride [Moles/Vol] 101 mmol/L 98 - 10 7 mmol/L [facility] CO2 [Moles/Vol] 24 mmol/L 21 - 32 mmol/L [facility] Creatinine [Mass/Vol] 1.38 mg/dL High 0.50 - 1.30 mg/dL [facility] GFR/1.73 sq M.predicted among non-blacks MDRD (S/P/Bld) [Vol rate/Area] 54 mL/min/{1.73_m2} Low - PINF [facility] Comment on above: Calculations of etelvina mated GFR are performed using the 2020 CKD-EPI Study Refit equation without the race variable for the IDMS-Traceable creatinine methods. https://jasn.asnjournals.org/content//ASN.2020 120816 Glucose [Mass/Vol] 111 mg/dL High 74 - 99 mg/dL [facility] Interpretation and review of laboratory results Abnormal [facility] Potassium [Moles/Vol] 3.9 mmol/L 3.5 - 5.3 mmol/L [facility] Protein [Mass/Vol] 6.7 g/dL 6.4 - 8.2 g/dL [facility] Sodium [Moles/Vol] 138 mmol/L 136 - 145 mmol/L [facility] Urea nitrogen [Mass/Vol] 33 mg/dL High 6 - 23 mg/dL [facility] Critical Careon 03-17-2023 Quinn Camarillo DO 03/18/2023 8:01 AM Critical Care Performed by: Qunin Camarillo DO Authorized by: Quinn Camarillo DO Critical care provider statement: Critical care time (minutes): 85 Critical care time was exclusive of: Separately billable procedures and treating other patients Critical care was necessary to treat or prevent imminent or life-threatening deterioration of the following conditions: Sepsis and shock Critical care was time spent personally by me on the following activities: Development of treatment plan with patient or surrogate, obtaining history from patient or surrogate, ordering and performing treatments and interventions, ordering and review of radiographic studies, ordering and review of laboratory studies and re-evaluation of patient's condition I assumed direction of critical care for this patient from another provider in my specialty: no Care discussed with: admitting provider [facility] Work Phone: [facility] Work Phone: FLUAV and FLUBV RNA LOGAN+prob e Nom (Unsp spec)on 03-17-2023 FLUAV RNA LOGAN+probe Ql (Resp) Not detected Not Detected [facility] FLUBV RNA LOGAN+probe Ql (Resp) Not detected Not Detected [facility] This assay is an in vitro diagnostic multiplex nucleic acid amplification test for the detection and discrimination of Influenza A & B from nasopharyngeal specimens, and has been validated for use at [place]. Negative results do not preclude Influenza A/B infections, and should not be used as the sole basis for diagnosis, treatment, or other management decisions. If Influenza A/B and RSV PCR results are negative, testing for Parainfluenza virus, Adenovirus and Metapneumovirus is routinely performed for [facility] pediatric oncology and intensive care inpatients, and is available on other patients by placing an add-on request. [facility] Lactateon 03-17-2023 Lactate [Moles/Vol] 3.4 mmol/L High 0.4 - 2. 0 mmol/L [facility] Lactate [Moles/Vol] 5.1 mmol/L Critically high 0.4 - 2.0 mmol/L [facility] Lactate [Moles/Vol]on 2023 Interpretation and review of laboratory results Abnormal [facility] Venipuncture immediately after or during the administration of Metamizole may lead to falsely low results. Testing should be performed immediately prior to Metamizole dosing. [facility] Interpretation and review of laboratory results Abnormal [facility] Venipuncture immediately after or during the administration of Metamizole may lead to falsely low results. Testing should be performed immediately prior to Metamizole dosing. [facility] Natriuretic peptide B [Mass/ Vol]on 03-17-2023 Interpretation and review of laboratory results Abnormal [facility] Natriuretic peptide B (Bld) [Mass/Vol] 202 pg/mL High 0 - 99 pg/mL [facility] <100 pg/mL - Heart failure unlikely 100-299 pg/mL - Intermediate probability of acute heart failure exacerbation. Correlate with clinical context and patient history. >=300 pg/mL - Heart Failure likely. Correlate with clinical context and patient history. BNP testing is performed using different testing methodology at [facility] than at other [facility]. Direct result comparisons should only be made within the same method. [facility] No Panel Informationon 03-17 Extra Tube Hold for add-ons. [facility] Comment on above: Auto resulted. [facility] Interpretation and review of laboratory results Normal [facility] SARS-CoV-2 (COVID-19) RNA NA A+probe Ql (Resp)on 03-17-2023 This assay has received FDA Emergency Use Authorization (EUA) and is only authorized for the duration of time that circumstances exist to justify the authorization of the emergency use of in vitro diagnostic tests for the detection of SARS-CoV-2 virus and/or diagnosis of COVID-19 infection under section 564(b)(1) of the Act, 21 U.S.C. 360bbb-3(b)(1). This assay is an in vitro diagnostic nucleic acid amplification test for the qualitative detection of SARS-CoV-2 from nasopharyngeal specimens and has been validated for use at [place]. Negative results do not preclude COVID-19 infections and should not be used as the sole basis for diagnosis, treatment, or other management decisions. [facility] SARS-CoV-2 RT PCRon 03-17-19 SARS-CoV-2 (COVID-19) RNA LOGAN+probe Ql (Resp) Not detected Not Detected [facility] Tropinin I.cardiac panel Hig h sensitivity methodon 03-17-2023 Interpretation and review of laboratory results Abnormal [facility] Less than 99th percentile of normal range cutoff- Female and children under 18 years old <14 ng/L; Male <21 ng/L: Negative Repeat testing should be performed if clinically indicated. Female and children under 18 years old 14-50 ng/L; Male 21-50 ng/L: Consistent with possible cardiac damage and possible increased clinical risk. Serial measurements may help to assess extent of myocardial damage. >50 ng/L: Consistent with cardiac damage, increased clinical risk and myocardial infarction. Serial measurements may help assess extent of myocardial damage. NOTE: Children less than 1 year old may have higher baseline troponin levels and results should be interpreted in conjunction with the overall clinical context. NOTE: Troponin I testing is performed using a different testing methodology at [facility] than at [facility]. Direct result comparisons should only be made within the same method. [facility] Interpretation and review of laboratory results Abnormal [facility] Less than 99th percentile of normal range cutoff- Female and children under 18 years old <14 ng/L; Male <21 ng/L: Negative Repeat testing should be performed if clinically indicated. Female and children under 18 years old 14-50 ng/L; Male 21-50 ng/L: Consistent with possible cardiac damage and possible increased clinical risk. Serial measurements may help to assess extent of myocardial damage. >50 ng/L: Consistent with cardiac damage, increased clinical risk and myocardial infarction. Serial measurements may help assess extent of myocardial damage. NOTE: Children less than 1 year old may have higher baseline troponin levels and results should be interpreted in conjunction with the overall clinical context. NOTE: Troponin I testing is performed using a different testing methodology at [facility] than at other [facility]. Direct result comparisons should only be made within the same method. [facility] Troponin I, High Sensitivity on 03-17-2023 Tropinin I.cardiac panel High sensitivity method 33 ng/L High 0 - 20 ng/L [facility] Tropinin I.cardiac panel High sensitivity method 38 ng/L High 0 - 20 ng/L [facility] Urinalysis complete W Reflex Culture panel (U)on 03-17-2023 Appearance (U) Clear Clear [facility] Bilirubin (U) [Mass/Vol] Negative NEGATIVE [facility] Color (U) Straw Straw, Yellow [facility] Glucose Auto test strip (U) [Mass/Vol] Negative NEGATIVE mg/dL [facility] Interpretation and review of laboratory results Abnormal [facility] Interpretation and review of laboratory results Normal [facility] Ketones (U) [Mass/Vol] Negative NEGAT SRUTHI mg/dL [facility] Leukocyte esterase Auto test strip Ql (U) Negative NEGATIVE [facility] Nitrite Auto test strip Ql (U) Negative NEGATIVE [facility] pH (U) 6.0 [pH] 5.0, 5.5, 6.0, 6.5, 7.0, 7.5, 8.0 [facility] Protein (U) [Mass/Vol] Negative NEGAT SRUTHI mg/dL [facility] RBC (U) [#/Vol] SMALL (1+) Abnormal NEGATIVE [facility] RBC Auto (Urine sed) [#/Area] 1-2 NONE, 1-2, 3-5 /HPF [facility] Specific gravity (U) [Rel density] 1.029 1.005 - 1.035 [facility] Urobilinogen (U) [Mass/Vol] mg/dL NINF - 2.0 mg/dL [facility] WBC Auto (Urine sed) [#/Area] NONE 1-5, NONE /HPF [facility] XR Chest Single viewon 03-17 No airspace consolidation or pleural effusion. MACRO: None Signed by: Thanh Paulino 03/17/2023 8:39 PM Dictation workstation: [id number] MMODAL Interpreted By: Thanh Paulino, STUDY: XR CHEST 1 VIEW; 03/17/2023 8:15 pm INDICATION: Signs/Symptoms:cough. COMPARISON: 06/06/2020 ACCESSION NUMBER(S): [id number] ORDERING CLINICIAN: QUINN CAMARILLO FINDINGS: The cardiac silhouette is normal in size. No focal airspace consolidation or pleural effusion. No pneumothorax. MMODAL Thanh Paulino MD - 03/17/2023 Interpreted By: Thanh Paulino, STUDY: XR CHEST 1 VIEW; 03/17/2023 8:15 pm INDICATION: Signs/Symptoms:cough. COMPARISON: 06/06/2020 ACCESSION NUMBER(S): [id number] ORDERING CLINICIAN: QUINN CAMARILLO FINDINGS: The cardiac silhouette is normal in size. No focal airspace consolidation or pleural effusion. No pneumothorax. IMPRESSION: No airspace consolidation or pleural effusion. MACRO: None Signed by: Thanh Paulino 03/17/2023 8:39 PM Dictation workstation: [id number] [facility] Work Phone: Radiology Study observation (narrative) [facility] Work Phone: XR Chest Single viewOrdered By: Thanh Paulino on 03-17-2023 [facility] Work Phone: Basic metabolic 2000 panelon 03-04-2023 Anion gap [Moles/Vol] 14 mmol/L Normal 9-18 [facility] Comment on above: Order Comment: Speci men Type: BLOOD SPECIMEN Ordering Facility: [facility] Address: [address] [place] [address] Performed By: #### 2 4321-2, 30049-9 #### [facility] CLIA [id number] [address] [place] [address] [place] Calcium [Mass/Vol] 9.8 mg/dL Normal 8.5-10.2 [facility] Comment on above: Order Comment: Speci men Type: BLOOD SPECIMEN Ordering Facility: [facility] Address: [address] [place] [address] Performed By: #### 2 4321-2, 97578-4 #### [facility] CLIA [id number] [address] Chloride [Moles/Vol] 103 mmol/L Normal 97-105 [facility] Comment on above: Order Comment: Tila perez Type: BLOOD SPECIMEN Ordering Facility: [facility] Address: [address] [place] [address] Performed By: #### 2 4321-2, 97145-2 #### [facility] CLIA [id number] [address] [place] CO2 [Moles/Vol] 26 mmol/L Normal 22-30 [facility] Comment on above: Order Comment: Tila perez Type: BLOOD SPECIMEN Ordering Facility: [facility] Address: [address] [place] [address] Performed By: #### 2 4321-2, 30072-1 #### [facility] CLIA [id number] [address] Creatinine [Mass/Vol] 1.29 mg/dL High 0.73-1.22 [facility] Comment on above: Order Comment: Tila perez Type: BLOOD SPECIMEN Ordering Facility: [facility] Address: [address] [place] [address] Performed By: #### 2 4321-2, 62521-9 #### [facility] CLIA [id number] [address] Creatinine and Glomerular filtration rate.predicted panel (S/P/Bld) 58 mL/min/1.73m??? Low >=60 [facility] Comment on above: Order Comment: Tila perez Type: BLOOD SPECIMEN Ordering Facility: [facility] Address: [address] [place] [address] Result Comment: Etelvina mated Glomerular Filtration Rate (eGFR) is calculated using the 2020 CKD-EPI creatinine equation. This equation utilizes serum creatinine, sex, and age as parameters. The creatinine assay has traceable calibration to isotope dilution-mass spectrometry. Refer to KDIGO guidelines for clinical interpretation. In patients with unstable renal function, e.g. those with acute kidney injury, the eGFR may not accurately reflect actual GFR. Performed By: #### 2 4321-2, 77064-8 #### [facility] CLIA [id number] [address] [place] [address] [place] Glucose [Mass/Vol] 83 mg/dL Normal 74-99 [facility] Comment on above: Order Comment: Tila perez Type: BLOOD SPECIMEN Ordering Facility: [facility] Address: [address] [place] [address] Result Comment: The [place] [employer] (ADA) provides guidance for cutoff values for fasting glucose and random glucose. The ADA defines fasting as no caloric intake for at least 8 hours. Fasting plasma glucose results between 100 to 125 mg/dL indicate increased risk for diabetes (prediabetes). Fasting plasma glucose results greater than or equal to 126 mg/dL meet the criteria for diagnosis of diabetes. In the absence of unequivocal hyperglycemia, results should be confirmed by repeat testing. In a patient with classic symptoms of hyperglycemia or hyperglycemic crisis, random plasma glucose results greater than or equal to 200 mg/dL meet the criteria for diagnosis of diabetes. Reference: Standards of Medical Care in Diabetes 2016, [place] [employer]. Diabetes Care. 2016.39(Suppl 1). Performed By: #### 2 4321-2, 38365-2 #### [facility] CLIA [id number] [address] [place] [address] [place] Potassium [Moles/Vol] 4.8 mmol/L Normal 3.7-5.1 [facility] Comment on above: Order Comment: Tila perez Type: BLOOD SPECIMEN Ordering Facility: [facility] Address: [address] [place] [address] Performed By: #### 2 4321-2, 62256-8 #### [facility] CLIA [id number] [address] [place] [address] [place] Sodium [Moles/Vol] 143 mmol/L Normal 136-144 [facility] Comment on above: Order Comment: Tila perez Type: BLOOD SPECIMEN Ordering Facility: [facility] Address: [address] [place] [address] Performed By: #### 2 4321-2, 32705-9 #### [facility] CLIA [id number] [address] [place] [address] [place] Urea nitrogen [Mass/Vol] 27 mg/dL High 9-24 [facility] Comment on above: Order Comment: Tila perez Type: BLOOD SPECIMEN Ordering Facility: [facility] Address: [address], [place] [address] Performed By: #### 2 4321-2, 74213-5 #### [facility] CLIA [id number] [address] [place] [address] [place] [facility] CNOVon 03-04-2023 CNOV Office Visit (CARMED ) LEISACHERYL Krystin ([id number]) 1950 M Date Time Provider Department 03/04/23 1:40 PM IDANIA FRAIRE During your visit today, we recorded the following information about you: Pulse Blood pressure Weight 73/minute 112/68 88.7 kg Idania Fraire DO 03/04/2023 2:46 PM Signed [facility] SECTION [facility] CARDIOLOGY [facility] OUTPATIENT VISIT DATE March 04, 2023 HISTORY OF PRESENT ILLNESS: Mr. De La Fuente is a 72 year old male. The patient [facility] due to history of coronary disease and chronic diastolic heart failure. He has prior history of multi-infarct stroke at which time he was found to have atrial fibrillation for which he is now on long-term oral anticoagulation with Xarelto. He presents with his daughter today. He has a chronic cough and dyspnea since his stroke. He has been followed through the heart failure clinic. He denies chest discomfort orthopnea, paroxysmal nocturnal dyspnea, palpitations, near-syncope, syncope, GI/ bleeding or melena. The patient is and lives at home alone. He has grown children and grandchildren. 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 He is a non-smoker, rare drinker. Cardiac risk factors: Age, gender, hypertension, hyperlipidemia, previous tobacco abuse, known CAD Impression: 1. Chronic diastolic heart failure 2. Dyspnea exertion 3. Coronary disease 4. Paroxysmal atrial fibrillation 5. Hypertension 6. Hyperlipidemia 7. Status post drug-eluting stent to the left circumflex 8. Long-term anticoagulation with Xarelto 9. History of COPD PLAN AND RECOMMENDATIONS: The patient appears overall stable from a cardiovascular standpoint but does have a cough and dyspnea occurring with exertion. Catheterization in the past year demonstrated patency of the stent and no significant progression of his coronary disease in other areas. LV systolic function noninvasively was normal but invasively was mildly reduced. Will therefore perform an echocardiogram to reevaluate heart structure and function. We did state that he may double up on his furosemide for a couple days as he notes his dry weight is closer to 180 and he is way past that. Will check labs today in the form of a BMP and BNP. Recent cholesterol profile was not at goal for which we discussed rechecking which we will leave your discretion. If his cholesterol is not to goal, we would recommend either changing to a higher potency statin such as Crestor versus adding Zetia 10 mg daily to his medical regimen. Dietary and lifestyle modification was otherwise reemphasized to facilitate risk factor reduction and heart failure prevention. Will look forward to reevaluating him in 6 months time. Vitals: BP 112/68 Pulse 73 Wt 88.7 kg (195 lb 8.8 oz) SpO2 96% BMI 26.52 kg/m? Physical Exam Vitals reviewed. Constitutional: General: He is not in acute distress. Appearance: Normal appearance. He is well-developed. He is not diaphoretic. HENT: Head: Normocephalic and atraumatic. Right Ear: External ear normal. Left Ear: External ear normal. Nose: Nose normal. Eyes: General: No scleral icterus. Right eye: No discharge. Left eye: No discharge. Pupils: Pupils are equal, round, and reactive to light. Neck: Thyroid: No thyromegaly. Vascular: No carotid bruit or JVD. Cardiovascular: Rate and Rhythm: Normal rate and regular rhythm. Heart sounds: No murmur heard. No friction rub. No gallop. Pulmonary: Effort: Pulmonary effort is normal. No respiratory distress. Breath sounds: Normal breath sounds. No wheezing or rales. Abdominal: General: Bowel sounds are normal. Palpations: Abdomen is soft. Musculoskeletal: General: Normal range of motion. Cervical back: Neck supple. Skin: General: Skin is warm and dry. Capillary Refill: Capillary refill takes less than 2 seconds. Coloration: Skin is not pale. Neurological: Mental Status: He is alert and oriented to person, place, and time. Cranial Nerves: No cranial nerve deficit. Psychiatric: Mood and Affect: Mood normal. Mood is not anxious or depressed. Behavior: Behavior normal. Thought Content: Thought content normal. Judgment: Judgment normal. Review of Systems Constitutional: Negative for activity change, appetite change, fatigue and unexpected weight change. HENT: Negative for ear pain and trouble swallowing. Eyes: Negative for pain and visual disturbance. Respiratory: Positive for cough and shortness of breath. Negative for chest tightness. Cardiovascular: Negative for chest pain, palpitations and leg swelling. Gastrointestinal: Negative for abdominal pain and blood in stool. Endocrine: Negative for cold intolerance and heat intolerance. Genitourinary: Negative for dysuria, hematur (more content not included)... Normal [facility] EKGon 03-04-2023 Electrocardiogram Ventricular Rate : 6 9 BPM Atrial Rate : 69 BPM P-R Interval : 172 ms QRS Duration : 100 ms Q-T Interval : 368 ms QTC Calculation(Bazett) : 394 ms Calculated P [place] : 69 degrees Calculated R [place] : 26 degrees Calculated T [place] : 111 degrees NORMAL SINUS RHYTHM INFERIOR INFARCT , AGE UNDETERMINED ST and T WAVE ABNORMALITY, CONSIDER LATERAL ISCHEMIA ABNORMAL ECG WHEN COMPARED WITH ECG OF 12-NOV-1999 08:45, INFERIOR INFARCT IS NOW PRESENT T WAVE INVERSION NOW EVIDENT IN LATERAL LEADS Confirmed by MD FRAIRE GREGORY () on 03/10/2023 10:37:21 AM Also confirmed by MD FRAIRE GREGORY (), assistant production editor LEIGHTON TOLBERT ([id number]) on 12/18/2023 8:08:08 AM NAME : CHERYL DE LA FUENTE PID : [id number] : 1950 Gender : Male Race : ORD : Procedure Date : Mar 04 2023 13:44:46 Edit Date : Dec 18 2023 08:08:12 Diagnosis: NORMAL SINUS RHYTHM INFERIOR INFARCT , AGE UNDETERMINED ST and T WAVE ABNORMALITY, CONSIDER LATERAL ISCHEMIA ABNORMAL ECG WHEN COMPARED WITH ECG OF 12-NOV-1999 08:45, INFERIOR INFARCT IS NOW PRESENT T WAVE INVERSION NOW EVIDENT IN LATERAL LEADS Confirmed by MD FRAIRE GREGORY () on 03/10/2023 10:37:21 AM Also confirmed by MD FRAIRE GREGORY (), assistant production editor LEIGHTON TOLBERT ([id number]) on 12/18/2023 8:08:08 AM Test Reason : [facility] Overread By : MD FRAIRE GREGORY Edited By : LEIGHTON TOLBERT Referred By : IDANIA FRAIRE Acquired by : , [facility] NT-proBNP SerPl-ncon 03-04 Natriuretic peptide.B prohormone N-Terminal [Mass/Vol] 545 pg/mL High <125 [facility] Comment on above: Order Comment: Speci men Type: BLOOD SPECIMEN Ordering Facility: [facility] Address: [address] [place] [address] Performed By: #### 2 4321-2, 44248-0 #### [facility] CLIA [id number] [address] [place] [address] [place] Progress Noteon 04-18-2022 Progress Note This is the nurse calling from [facility] on behalf of Radha Rooney MD. Upon reviewing your chart, your last Blood pressure reading was BP Readings from Last 1 Encounters: 12/23/19 (!) 170/110 We would like to schedule you for follow up appointment, please call the office back to schedule. If the patient returns the call, please assist in scheduling an appointment within the next 30 days. Patient is not Mychart active. [facility] 04-17-2022 [facility] Telephone (AGCARDHWG ) CHERYL DE LA FUENTE ([id number]) 1950 M Date Time Provider Department 04/17/22 MARK PHILIP AGCARDHWG During your visit today, we recorded the following information about you: Deidre Russo LPN 04/17/2022 2:56 PM Signed Patient's daughter called [facility] to ask that the basic metabolic panel from 04/15/2022 be reviewed? Any recommendations? Deidre Russo, AMBER Sandoval RN 04/23/2022 11:58 AM Signed Daughter Ashtyn calls to report pt is short of breath with and without exertion. She reports increase in abd girth. Pt is unsure of weight gain. Pt's lasix has been on hold since 04/08/22 due to renal insufficiency. BUN and Cr have normalized on 04/15/22 BMP. MURIEL Gonsales APRN.PIPE BENDER 04/23/2022 2:55 PM Addendum I recommend taking 10 lasix mg once daily as needed for shortness of breath, weight gain, abdominal distention. I recommend establishing with the heart failure clinic for lifestyle management of volume: salt restriction, fluid restriction, daily weights, instructions on how to take Lasix as needed, so that we can avoid fluid gain without stressing kidneys. Thank you, Kailey Snow APRN.PIPE BENDER Antoinette Diaz RN 04/23/2022 3:24 PM Signed Spoke to daughter and informed of below. Reviewed CHF diet/ restrictions with her. Voiced understanding. States she will call [facility] and set up appt for CHF clinic. Antoinette Diaz RN Allergies As of Date: 04/17/2022 Noted Allergy Reaction CODEINE 05/26/2017 16 - Unknown Date Reviewed: 03/11/2022 Reviewed by: Mark Philip MD - Fully Assessed Reason for Visit: Patient Question [3889] Primary Visit Diagnosis:NICM (nonischemic cardiomyopathy) ([facility]) [I42.8] Order(s):CONSULT TO CHRONIC CARE [[id number]] Order #: [id number]: 1 Prescriptions as of 04/23/2022 - furosemide (LASIX) 20 mg tablet Take 1 tablet by mouth once daily. - TRELEGY ELLIPTA 100-62.5-25 mcg inhalation powder INHALE 1 PUFF DAILY DIRECTED - montelukast (SINGULAIR) 10 mg tablet Take 10 mg by mouth daily at bedtime. - predniSONE (DELTASONE) 10 mg tablet Take 10 mg by mouth once daily. - nitroglycerin sublingual (NITROSTAT) 0.4 mg SL tablet Dissolve 1 tablet under the tongue every 5 minutes as needed. - amLODIPine (NORVASC) 5 mg tablet Take by mouth. - losartan (COZAAR) 100 mg tablet - sertraline (ZOLOFT) 100 mg tablet - rivaroxaban (XARELTO) 20 mg tablet Take 1 tablet by mouth daily with dinner. - atorvastatin (LIPITOR) 80 mg tablet 1 tablet by ORAL/FEEDING TUBE route daily at bedtime. - senna-docusate (SENNA-S) 8.6-50 mg per tablet 1 tablet by ORAL/FEEDING TUBE route twice daily. - metoprolol tartrate, short acting, (LOPRESSOR) 25 mg tablet 0.5 tablets by ORAL/FEEDING TUBE route every 12 hours. - ipratropium-albuterol (DUONEB) 0.5 mg-3 mg(2.5 mg base)/3 mL nebu Inhale 3 mL as instructed every 4 hours as needed. - clopidogrel (PLAVIX) 75 mg tablet Take 1 tablet by mouth once daily. Do NOT stop taking without talking to your blind cleaner. - levothyroxine (SYNTHROID) 75 mcg tablet Take 75 mcg by mouth daily before breakfast. - MULTIVITAMIN TAB Take one(1) tablet daily. - albuterol sulfate(VENTOLIN HFA 90 MCG/ACTUATION AEROSOL INHALER) 2 puffs every 4 hours as needed Problem List As Of Date 04/17/2022 Noted Resolved COPD (chronic obstructive pulmonary disease) (H*08/18/2009 05/28/2017 Stroke (HCC) [I63.9] Primary hypertension [I10] Heart attack (HCC) [I21.9] 05/28/2017 Chronic obstructive pulmonary disease (COPD) (H* 05/28/2017 Chest pain [R07.9] 05/27/2017 05/28/2017 NSTEMI (non-ST elevated myocardial infarction) *05/28/2017 UTI (urinary tract infection) [N39.0] 05/28/2017 HLD (hyperlipidemia) [E78.5] 05/28/2017 CAD (coronary artery disease) [I25.10] Acute CVA (cerebrovascular accident) ([facility]) [I63*05/30/2017 Urinary hesitancy [R39.11] 05/30/2017 Paroxysmal atrial fibrillation (HCC) [I48.0] 11/20/2020 Post PTCA [Z98.61] 11/20/2020 SOB (shortness of breath) [R06.02] 03/11/2022 Diastolic congestive heart failure (HCC) [I50.3*03/11/2022 Encounter Status:Closed by KAILEY SNOW on 04/23/22 [facility] Tele[facility] (AGCARDPOB ) CHERYL DE LA FUENTE ([id number]) 1950 M Date Time Provider Department 04/08/22 MARK PHILIP AGCARDELIDIA During your visit today, we recorded the following information about you: Destini Sandoval RN 04/08/2022 8:15 AM Signed ----- Message from Mark Philip MD sent at 04/08/2022 8:07 AM EST ----- Call the patient to stop the lasix and BMP in one week renee Sandoval RN 04/08/2022 8:16 AM Signed Spoke with pt. Notified of test results and Dr Philip's recommendations. Pt voices understanding. Destini Sandoval RN Allergies As of Date: 04/08/2022 Noted Allergy Reaction CODEINE 05/26/2017 16 - Unknown Date Reviewed: 03/11/2022 Reviewed by: Mark Philip MD - Fully Assessed Reason for Visit: Results [95] Prescriptions as of 04/08/2022 - furosemide (LASIX) 20 mg tablet Take 1 tablet by mouth once daily. - TRELEGY ELLIPTA 100-62.5-25 mcg inhalation powder INHALE 1 PUFF DAILY DIRECTED - montelukast (SINGULAIR) 10 mg tablet Take 10 mg by mouth daily at bedtime. - predniSONE (DELTASONE) 10 mg tablet Take 10 mg by mouth once daily. - nitroglycerin sublingual (NITROSTAT) 0.4 mg SL tablet Dissolve 1 tablet under the tongue every 5 minutes as needed. - amLODIPine (NORVASC) 5 mg tablet Take by mouth. - losartan (COZAAR) 100 mg tablet - sertraline (ZOLOFT) 100 mg tablet - rivaroxaban (XARELTO) 20 mg tablet Take 1 tablet by mouth daily with dinner. - atorvastatin (LIPITOR) 80 mg tablet 1 tablet by ORAL/FEEDING TUBE route daily at bedtime. - senna-docusate (SENNA-S) 8.6-50 mg per tablet 1 tablet by ORAL/FEEDING TUBE route twice daily. - metoprolol tartrate, short acting, (LOPRESSOR) 25 mg tablet 0.5 tablets by ORAL/FEEDING TUBE route every 12 hours. - ipratropium-albuterol (DUONEB) 0.5 mg-3 mg(2.5 mg base)/3 mL nebu Inhale 3 mL as instructed every 4 hours as needed. - clopidogrel (PLAVIX) 75 mg tablet Take 1 tablet by mouth once daily. Do NOT stop taking without talking to your blind cleaner. - levothyroxine (SYNTHROID) 75 mcg tablet Take 75 mcg by mouth daily before breakfast. - MULTIVITAMIN TAB Take one(1) tablet daily. - albuterol sulfate(VENTOLIN HFA 90 MCG/ACTUATION AEROSOL INHALER) 2 puffs every 4 hours as needed Problem List As Of Date 04/08/2022 Noted Resolved COPD (chronic obstructive pulmonary disease) (H*08/18/2009 05/28/2017 Stroke ([facility]) [I63.9] Primary hypertension [I10] Heart attack (HCC) [I21.9] 05/28/2017 Chronic obstructive pulmonary disease (COPD) (H* 05/28/2017 Chest pain [R07.9] 05/27/2017 05/28/2017 NSTEMI (non-ST elevated myocardial infarction) *05/28/2017 UTI (urinary tract infection) [N39.0] 05/28/2017 HLD (hyperlipidemia) [E78.5] 05/28/2017 CAD (coronary artery disease) [I25.10] Acute CVA (cerebrovascular accident) ([facility]) [I63*05/30/2017 Urinary hesitancy [R39.11] 05/30/2017 Paroxysmal atrial fibrillation ([facility]) [I48.0] 11/20/2020 Post PTCA [Z98.61] 11/20/2020 SOB (shortness of breath) [R06.02] 03/11/2022 Diastolic congestive heart failure (HCC) [I50.3*03/11/2022 Encounter Status:Closed by DESTINI SANDOVAL on 04/08/22 Normal [facility] CARD CATH DIAGNOSTICon 03-29 CARD CATH DIAGNOSTIC Site Id: [facility] Lab #: DEFAULT Study Date: 03/29/2022 Start Time: End Time: Name Duty Mark Philip MD PROC MD 1 Key Bryant PROC SCRUB 1 Zane Ochoa RN PROC CIRC 1 Gideon Robertson RN PROC RECORD 1 Daniel Valencia RT PROC MANAGER MANAGING 1 + + PATIENT INFORMATION + + Name: CHERYL DE LA FUENTE [facility] : 1950 Age: 71 years Gender: Height: 72 in / 183 cm Weight: 182.16 lb / 82.63 kg BMI: 24.71 kg/m BSA: 2.05 m + --------+ CLINICAL HISTORY/INDICATIONS + --------+ Dyspnea and Abnormal ECG. Procedural Status: Elective CAD Presentation: Symptoms Unlikely to be Ischemic Angina Classification (within 2 weeks): No Angina No Heart Failure Clinical History: 71 male with shortness of breath with history of Circumflex stent. for left and right heart cath + + DIAGNOSTIC FINDINGS + + Coronary Anatomy: Left Dominant Injection Site(s): Coronary Artery LMT: _ The LMT is normal. LAD: _ The LAD has mild luminal irregularities. LCX: _ The Circumflex has mild luminal irregularities. Additional Comment: Patent proximal and mid stent. RAMUS: _ Ramus Status: Not Applicable. RCA: _ The RCA has mild luminal irregularities. Additional Comment: non selective angiography small non dominant. Left Ventriculogram:Low normal LV systolic dysfunction with inferior wall hypokinesis LVEF= 50% + + IMPRESSION/PLAN + + Impression:1. Patent Circumflex stent. 2. Mild diffuse CAD. 3. Low normal LV systolic dysfunction . 4. Normal Pulmonary pressure. Recommended Treatment: Medical Therapy. Plan: Medical therapy + + HEMODYNAMICS - XPER + + + +--- ---+-----+-------+--- ---+------+------+ Measurement Name Sys Windy End Windy Mean A Wave V Wave + +--- ---+-----+-------+--- ---+------+------+ AO 162.00 85.00 119.00 + +--- ---+-----+-------+--- ---+------+------+ AO 164.00 81.00 119.00 + +--- ---+-----+-------+--- ---+------+------+ AO 162.00 95.00 117.00 + +--- ---+-----+-------+--- ---+------+------+ AO 160.00 81.00 113.00 + +--- ---+-----+-------+--- ---+------+------+ AO 170.00 91.00 118.00 + +--- ---+-----+-------+--- ---+------+------+ LV 143.00 8.00 21.00 + +--- ---+-----+-------+--- ---+------+------+ LVp 165.00 14.00 26.00 + +--- ---+-----+-------+--- ---+------+------+ AOp 150.00 84.00 110.00 + +--- ---+-----+-------+--- ---+------+------+ RA 8.00 13.00 9.00 + +--- ---+-----+-------+--- ---+------+------+ RV 39.00 6.00 15.00 + +--- ---+-----+-------+--- ---+------+------+ PW 16.00 21.00 19.00 + +--- ---+-----+-------+--- ---+------+------+ PA 35.00 9.00 23.00 + +--- ---+-----+-------+--- ---+------+------+ Oximetry: + -+----+ + -----+---+-----+ Time Site O2 Saturation O2 PO2 HB + -+----+ + -----+---+-----+ 03/29/2022 11:04:38 AM AO 96.00 19.06 14.60 + -+----+ + -----+---+-----+ 03/29/2022 11:04:38 AM RA 65.00 12.91 14.60 + -+----+ + -----+---+-----+ 03/29/2022 11:04:38 AM AO 96.00 19.06 14.60 + -+----+ + -----+---+-----+ 03/29/2022 11:04:38 AM PA 62.00 12.31 14.60 + -+----+ + -----+---+-----+ Cardiac Outputs: +--------+-----+ KEY SV 68.00 +--------+-----+ KEY CO 4.42 +--------+-----+ KEY CI 2.16 +--------+-----+ KEY HR +--------+-----+ MAN CO +--------+-----+ MAN CI +--------+-----+ TD SV 60.60 +--------+-----+ TD CO 3.94 +--------+-----+ TD CI 1.92 +--------+-----+ ANGIO SV +--------+-----+ ANGIO CO +--------+-----+ ANGIO CI +--------+-----+ + + ADVERSE OUTCOME(s)/COMPLICATI ON(s) + + None + + PROCEDURAL & TECHNICAL DETAILS + + Date Time Description 03/29/2022 12:00:00 AM Left Heart Cath 03/29/2022 12:00:00 AM Right Heart Cath *MEDICAL HISTORY* CAD Presentation: Symptoms Unlikely to be Ischemic Angina Classification (within 2 weeks): No Angina No Heart Failure Family History of CAD: Yes Congenital Heart Disease: No Coronary Artery Disease: Yes Dyslipidemia: Yes Hypertension: Yes Myocarditis: No Pericarditis: No Syncope: No Arrhythmia: None Diabetes Mellitu (more content not included)... Normal [facility] HISTORY PHYSICALon HISTORY PHYSICAL HNO ID: [id number] Author: Mark Philip MD Service: Cardiovascular Surgery Author Type: Physician Type: HANDP Filed: 03/29/2022 10:40 AM Note Text: UPDATED HANDP PRE-CARDIAC CATHETERIZATION SERVICE DATE: 03/29/2022 SERVICE TIME: 10:38 PHYSICAL EXAM MUST BE COMPLETED ON ADMISSION The History and Physical (completed in the past 30 days) has been reviewed and the patient has been examined. The contents accurately reflect the patient's condition with the following additions or revisions since the HANDP was completed. Examination indicates no changes. Planned Procedure: Right and Left Heart Cath + Possible PCI Primary Indication for Procedure: Congestive Heart Failure High Risk Features: History of Prior CABG: No History of Prior PCI: Yes: > 12 months Cardiomyopathy: No Anti-ischemic Meds in Past 2 Weeks: Beta blockers Ejection Fraction: 60% from Previous Echo Risk Appropriateness: Angina Class in Past 2 Weeks: Class III - Marked limitation of ordinary physical activity Cardiogenic Shock: NoHeart Failure: None Stress Test Performed: None EKG Assessment: Normal Family History of Premature CAD: Father, age 60 Evaluation for Preop Clearance: Non-Cardiac Surgery, Functional Capacity; >= 4 METS with symptoms, Surgical Risk; Low HISTORY OF BLEEDING: No This HANDP can be found in the attached. SIGNATURE: Mark Philip MD PATIENT NAME: Cheryl De La Fuente DATE: March 29, 2022 TIME: 10:37 AM Normal [facility] No Panel Informationon 03-29 Additional Comments (POCT) Venous 60%-85%; Arterial 95%-98% [facility] Comment (POCT) No anatomical site given %HBO2 ref range [facility] O2 SATURATION (POC)on 2022 %HbO2 (Oxyhemoglobin)(POCT) 96.2 % [facility] Hemoglobin (Bld) [Mass/Vol] 13.2 g/dL Abnormal 13.5 - 17.5 g/dL [facility] %HbO2 (Oxyhemoglobin)(POCT) 62.1 % [facility] Hemoglobin (Bld) [Mass/Vol] 12.5 g/dL Abnormal 13.5 - 17.5 g/dL [facility] %HbO2 (Oxyhemoglobin)(POCT) 17.1 % [facility] Additional Comments (POCT) Venous 60%-85%; Arterial 95%-98% [facility] Comment (POCT) No anatomical site given %HBO2 ref range [facility] Hemoglobin (Bld) [Mass/Vol] 10.0 g/dL Abnormal 13.5 - 17.5 g/dL [facility] %HbO2 (Oxyhemoglobin)(POCT) 64.6 % [facility] Additional Comments (POCT) Venous 60%-85%; Arterial 95%-98% [facility] Comment (POCT) No anatomical site given %HBO2 ref range [facility] Hemoglobin (Bld) [Mass/Vol] 13.2 g/dL Abnormal 13.5 - 17.5 g/dL [facility] Basic metabolic 2000 panelon 03-11-2022 Anion gap [Moles/Vol] 12 mmol/L 9 - 18 mmol/L [facility] Calcium [Mass/Vol] 8.8 mg/dL 8.5 - 10. 2 mg/dL [facility] Chloride [Moles/Vol] 104 mmol/L 97 - 10 5 mmol/L [facility] CO2 [Moles/Vol] 21 mmol/L Low 22 - 30 mmol/L [facility] Creatinine [Mass/Vol] 1.02 mg/dL 0.73 - 1.22 mg/dL [facility] Estimated Glomerular Filtration Rate 78 mL/min/1.73m >=60 mL/min/1.73m [facility] Glucose [Mass/Vol] 90 mg/dL 74 - 99 mg/dL [facility] Potassium [Moles/Vol] 4.1 mmol/L 3.7 - 5.1 mmol/L [facility] Sodium [Moles/Vol] 137 mmol/L 136 - 144 mmol/L [facility] Urea nitrogen [Mass/Vol] 19 mg/dL 9 - 24 mg/dL [facility] CBC panel Auto (Bld)on 03-11 Erythrocyte distribution width (RBC) [Ratio] 12.5 % 11.5 - 15.0 % [facility] Hematocrit (Bld) [Volume fraction] 45.5 % 39.0 - 51.0 % [facility] Hemoglobin (Bld) [Mass/Vol] 14.6 g/dL 13.0 - 17.0 g/dL [facility] MCH (RBC) [Entitic mass] 30.7 pg 26.0 - 34.0 pg [facility] MCHC (RBC) [Mass/Vol] 32.1 g/dL 30.5 - 36.0 g/dL [facility] MCV (RBC) [Entitic vol] 95.6 fL 80.0 - 100.0 fL [facility] Nucleated RBC (Bld) [#/Vol] <0.01 k/uL [facility] Platelet mean volume (Bld) [Entitic vol] 8.5 fL Low 9.0 - 12.7 fL [facility] Platelets (Bld) [#/Vol] 261 10*3/uL 150 - 400 k/uL [facility] RBC (Bld) [#/Vol] 4.76 10*6/uL 4.20 - 6.0 0 m/uL [facility] WBC (Bld) [#/Vol] 6.98 10*3/uL 3.70 - 11. 00 k/uL [facility] CNPNon 03-11-2022 CNPN Telephone [facility] CHERYL DE LA FUENTE ([id number]) 1950 M Date Time Provider Department 03/11/22 MARK PHILIP During your visit today, we recorded the following information about you: Cira Helms [facility] 03/11/2022 11:33 AM Addendum [facility] Renee Sandoval RN 03/11/2022 11:[address] Philip's office visit note: Patient recommended to hold the Xarelto 2 days prior to his procedure MURIEL Gonsales RN 03/11/2022 12:00 PM Signed Called pt. No answer; per recording voicemail full. MURIEL Gonsales RN 03/12/2022 8:30 AM Signed Spoke with pt. He is agreeable to cath 03/29/22. He reports his daughter will call back to go over instructions. MURIEL Gonsales RN 03/13/2022 11:24 AM Signed Spoke with daughter Kailey. She writes down, voices understanding and is agreeable to notify pt of the following instructions: You have been scheduled for a heart cath on fr 03/29/22. Instructions: -You are to report to the Heart and Vascular Entrance at [facility] at the time assigned in a 03/28/22 phone call from the cardiac catheterization technologist staff. Call will be between 2:00-5:00 pm. Arrival time will be between 7:00-9:00 am. -You are to increase water intake day prior to heart cath. You may eat a light snack and drink clear liquids until 3 hours prior to procedure arrival time. -With a sip of water on 03/29/22 morning take: Aspirin 81 mg along with usual morning BP meds- plavix, metoprolol, losartan and amlodipine. Pt may take MDIs. -Hold Xarelto 03/27, 03/28 and 03/29 morning. -Labs done 03/11/22. - You must have someone drive you home from your procedure. You are allowed visitors to come in with you. Everyone is expected to arrive wearing masks. -dental laboratory manager policy is you are not to be alone the first evening. -Any questions or concerns please contact our office at [phone] (opt #3 Nursing). Destini Sandoval RN Allergies As of Date: 03/11/2022 Noted Allergy Reaction CODEINE 05/26/2017 16 - Unknown Date Reviewed: 03/11/2022 Reviewed by: Mark Philip MD - Fully Assessed Reason for Visit: Preparations For Procedures [899] Prescriptions as of 03/13/2022 - TRELEGY ELLIPTA 100-62.5-25 mcg inhalation powder INHALE 1 PUFF DAILY DIRECTED - montelukast (SINGULAIR) 10 mg tablet Take 10 mg by mouth daily at bedtime. - predniSONE (DELTASONE) 10 mg tablet Take 10 mg by mouth once daily. - nitroglycerin sublingual (NITROSTAT) 0.4 mg SL tablet Dissolve 1 tablet under the tongue every 5 minutes as needed. - amLODIPine (NORVASC) 5 mg tablet Take by mouth. - losartan (COZAAR) 100 mg tablet - sertraline (ZOLOFT) 100 mg tablet - rivaroxaban (XARELTO) 20 mg tablet Take 1 tablet by mouth daily with dinner. - atorvastatin (LIPITOR) 80 mg tablet 1 tablet by ORAL/FEEDING TUBE route daily at bedtime. - senna-docusate (SENNA-S) 8.6-50 mg per tablet 1 tablet by ORAL/FEEDING TUBE route twice daily. - metoprolol tartrate, short acting, (LOPRESSOR) 25 mg tablet 0.5 tablets by ORAL/FEEDING TUBE route every 12 hours. - ipratropium-albuterol (DUONEB) 0.5 mg-3 mg(2.5 mg base)/3 mL nebu Inhale 3 mL as instructed every 4 hours as needed. - clopidogrel (PLAVIX) 75 mg tablet Take 1 tablet by mouth once daily. Do NOT stop taking without talking to your blind cleaner. - levothyroxine (SYNTHROID) 75 mcg tablet Take 75 mcg by mouth daily before breakfast. - MULTIVITAMIN TAB Take one(1) tablet daily. - albuterol sulfate(VENTOLIN HFA 90 MCG/ACTUATION AEROSOL INHALER) 2 puffs every 4 hours as needed Problem List As Of Date 03/11/2022 Noted Resolved COPD (chronic obstructive pulmonary disease) (H*08/18/2009 05/28/2017 Stroke (HCC) [I63.9] Primary hypertension [I10] Heart attack (HCC) [I21.9] 05/28/2017 Chronic obstructive pulmonary disease (COPD) (H* 05/28/2017 Chest pain [R07.9] 05/27/2017 05/28/2017 NSTEMI (non-ST elevated myocardial infarction) *05/28/2017 UTI (urinary tract infection) [N39.0] 05/28/2017 HLD (hyperlipidemia) [E78.5] 05/28/2017 CAD (coronary artery disease) [I25.10] Acute CVA (cerebrovascular accident) ([facility]) [I63*05/30/2017 Urinary hesitancy [R39.11] 05/30/2017 Paroxysmal atrial fibrillation (HCC) [I48.0] 11/20/2020 Post PTCA [Z98.61] 11/20/2020 SOB (shortness of breath) [R06.02] 03/11/2022 Diastolic congestive heart failure (HCC) [I50.3*03/11/2022 Encounter Status:Closed by CLAUDIA NAPIER on 03/12/22 [facility] Absolute lymphocyte counton 02-11-2022 Lymphocytes Auto (Unsp spec) [#/Vol] 1.06 10*3/uL 0.83-4.51 [facility] Work Phone: Basophil percentageon 2021 Basophils/100 WBC (Bld) 0.2 % 0-1 [facility] Work Phone: Chloride [Moles/Vol] 106 mmol/L 98-107 [facility] Work [facility]: Eosinophils/100 WBC (Bld) 0.1 % 0-5 [facility] Work Phone: Glucose [Mass/Vol] 77 mg/dL 74-106 [facility] Work Phone: Neutrophils (Bld) [#/Vol] 8.6 10*3/uL 2.0-7.7 [facility] Work Phone: Neutrophils/100 WBC (Bld) 84.0 % 47-70 [facility] Work Phone: Potassium [Moles/Vol] 3.8 mmol/L 3.5-5.1 [facility] Work Phone: Sodium [Moles/Vol] 141 mmol/L 136-145 [facility]: WBC (Bld) [#/Vol] 10.2 10*3/uL 4.4-11.0 [facility] Work Phone: Blood erythrocytes count (nu mber/volume)on 02-11-2022 RBC (Bld) [#/Vol] 5.12 10*6/uL 4.6-6.2 [facility] Work Phone: Blood hemoglobin measurement (mass/volume)on 02-11-2022 Hemoglobin (Bld) [Mass/Vol] 15.8 g/dL 13.0-16.5 [facility] Work Phone: Blood lymphocytes/100 leukoc yteson 02-11-2022 Lymphocytes/100 WBC (Bld) 10.4 % 19-41 [facility] Work Phone: [phone] Blood monocytes/100 leukocyt eson 02-11-2022 Monocytes/100 WBC (Bld) 4.2 % 0-10 [facility] Work Phone: Blood platelet mean volumeon 02-11-2022 Platelet mean volume (Bld) [Entitic vol] 8.7 fL 6.2-12.0 [facility] Work Phone: Determination of erythrocyte mean corpuscular volume (MCV)on 02-11-2022 MCV (RBC) [Entitic vol] 95.5 fL 80-94 [facility] Work Phone: Hematocrit Auto (Bld) [Volum e fraction]on 02-11-2022 Hematocrit (Bld) [Volume fraction] 48.9 % 40-54 [facility] Work Phone: Laboratory - Chemistry and C hemistry - challengeon 02-11-2022 CO2 [Moles/Vol] 28.0 mmol/L 21.0-32.0 [facility] Work Phone: Urea nitrogen/Creatinine [Mass ratio] 17.2 mg/mg 10-20 [facility] Work Phone: Laboratory - Hematology and Cell countson 02-11-2022 Erythrocyte distribution width (RBC) [Entitic vol] 46.8 fL 35.1-43.9 [facility] Work Phone: [phone] Erythrocyte distribution width (RBC) [Ratio] 13.3 % 11.6-14.6 [facility] Work Phone: [phone] Immature granulocytes/100 WBC (Bld) 1.100 % 0.0-0.9 [facility] Work Phone: [phone] Comment on above: IG% - Immature Granu locytes (promyelocytes, myelocytes and metamyelocytes) > 1% indicates that a LEFT SHIFT is Present. MCH (RBC) [Entitic mass] 30.9 pg 27.0-32.0 [facility] Work Phone: Nucleated RBC/100 WBC (Bld) [Ratio] 0 % 0-5 [facility] Work Phone: [phone] MCHC Auto (RBC) [Mass/Vol]on 02-11-2022 MCHC (RBC) [Mass/Vol] 32.3 g/dL 32-36 [facility] Work Phone: No Panel Informationon 02-11 Estimated Creatinine Clearance Calc 60.94 ml/min [facility] Work Phone: [phone] Estimated GFR (MDRD) Amer 75 mL/min >60 [facility] Work Phone: [phone] Comment on above: GFR Calc Estimated GFR (MDRD) Non-Af Amer 62 mL/min >60 [facility] Work Phone: [phone] Comment on above: Non- GFR Calc Platelets bldon 02-11-2022 Platelets (Bld) [#/Vol] 226 10*3/uL 150-450 [facility] Work Phone: [phone] Serum or plasma calcium lida urement (mass/volume)on 02-11-2022 Calcium [Mass/Vol] 8.9 mg/dL 8.5-10.1 [facility] Work Phone: [phone] Serum or plasma creatinine m easurement (mass/volume)on 02-11-2022 Creatinine [Mass/Vol] 1.22 mg/dL 0.70-1.30 [facility] Work Phone: Comment on above: The validity of the calculated GFR & GFRAA in patients over 70 years has not been determined. Clinical correlation is essential. Serum or plasma urea nitroge n measurement (mass/volume)on 02-11-2022 Urea nitrogen [Mass/Vol] 21 mg/dL 7-18 [facility] Work Phone: Thin prep Papanicolaou smear with manual screeningon 02-11-2022 Thin prep Papanicolaou smear with manual screening 7 5-15 [facility] Work Phone: CNPNon 08-27-2021 CNPN Telephone ([facility] ) CHERYL DE LA FUENTE ([id number]) 1950 M Date Time Provider Department 08/27/21 MARK PHILIP AGCARDPORamiro During your visit today, we recorded the following information about you: Silvia Casas 08/27/2021 1:19 PM Signed Rec'd vm from pt - pt's appt w/ Dr. Philip @ [facility] canceled and rescheduled to next March, called for sooner appt @ [facility]. Called pt - nothing sooner @ [facility] available Pt advised he will call [facility] again to see about cancelations Silvia Casas August 27, 2021 1:18 PM Allergies As of Date: 08/27/2021 Noted Allergy Reaction CODEINE 05/26/2017 16 - Unknown Date Reviewed: 01/22/2021 Reviewed by: Dyan Fleming, RT(R) - Partially Assessed Reason for Visit: Appointment [186] Prescriptions as of 08/27/2021 - amLODIPine (NORVASC) 5 mg tablet Take by mouth. - losartan (COZAAR) 100 mg tablet - sertraline (ZOLOFT) 100 mg tablet - rivaroxaban (XARELTO) 20 mg tablet Take 1 tablet by mouth daily with dinner. - atorvastatin (LIPITOR) 80 mg tablet 1 tablet by ORAL/FEEDING TUBE route daily at bedtime. - senna-docusate (SENNA-S) 8.6-50 mg per tablet 1 tablet by ORAL/FEEDING TUBE route twice daily. - metoprolol tartrate, short acting, (LOPRESSOR) 25 mg tablet 0.5 tablets by ORAL/FEEDING TUBE route every 12 hours. - ipratropium-albuterol (DUONEB) 0.5 mg-3 mg(2.5 mg base)/3 mL nebu Inhale 3 mL as instructed every 4 hours as needed. - clopidogrel (PLAVIX) 75 mg tablet Take 1 tablet by mouth once daily. Do NOT stop taking without talking to your blind cleaner. - nitroglycerin sublingual (NITROSTAT) 0.4 mg SL tablet Dissolve 1 tablet under the tongue every 5 minutes as needed. - levothyroxine (SYNTHROID) 75 mcg tablet Take 75 mcg by mouth daily before breakfast. - MULTIVITAMIN TAB Take one(1) tablet daily. - albuterol sulfate(VENTOLIN HFA 90 MCG/ACTUATION AEROSOL INHALER) 2 puffs every 4 hours as needed Problem List As Of Date 08/27/2021 Noted Resolved COPD (chronic obstructive pulmonary disease) (H*08/18/2009 05/28/2017 Stroke (HCC) [I63.9] Primary hypertension [I10] Heart attack (HCC) [I21.9] 05/28/2017 Chronic obstructive pulmonary disease (COPD) (H* 05/28/2017 Chest pain [R07.9] 05/27/2017 05/28/2017 NSTEMI (non-ST elevated myocardial infarction) *05/28/2017 UTI (urinary tract infection) [N39.0] 05/28/2017 HLD (hyperlipidemia) [E78.5] 05/28/2017 CAD (coronary artery disease) [I25.10] Acute CVA (cerebrovascular accident) ([facility]) [I63*05/30/2017 Urinary hesitancy [R39.11] 05/30/2017 Paroxysmal atrial fibrillation (HCC) [I48.0] 11/20/2020 Post PTCA [Z98.61] 11/20/2020 Encounter Status:Closed by SILVIA CASAS on 08/27/21 [facility] Absolute lymphocyte counton 08-24-2021 Lymphocytes Auto (Unsp spec) [#/Vol] 1.39 10*3/uL 0.83-4.51 [facility] Work Phone: Basophil percentageon 2021 Basophils/100 WBC (Bld) 0.6 % 0-1 [facility] Work Phone: Eosinophils/100 WBC (Bld) 1.5 % 0-5 [facility] Work Phone: Neutrophils (Bld) [#/Vol] 4.4 10*3/uL 2.0-7.7 [facility] Work Phone: Neutrophils/100 WBC (Bld) 66.6 % 47-70 [facility] Work Phone: WBC (Bld) [#/Vol] 6.7 10*3/uL 4.4-11.0 [facility] Work Phone: Blood erythrocytes count (nu mber/volume)on 08-24-2021 RBC (Bld) [#/Vol] 5.51 10*6/uL 4.6-6.2 [facility] Work Phone: Blood hemoglobin measurement (mass/volume)on 08-24-2021 Hemoglobin (Bld) [Mass/Vol] 14.2 g/dL 13.0-16.5 [facility] Work Phone: Blood lymphocytes/100 leukoc yteson 08-24-2021 Lymphocytes/100 WBC (Bld) 20.9 % 19-41 [facility] Work Phone: Blood monocytes/100 leukocyt eson 08-24-2021 Monocytes/100 WBC (Bld) 9.9 % 0-10 [facility] Work Phone: Blood platelet mean volumeon 08-24-2021 Platelet mean volume (Bld) [Entitic vol] 8.8 fL 6.2-12.0 [facility] Work Phone: Determination of erythrocyte mean corpuscular volume (MCV)on 08-24-2021 MCV (RBC) [Entitic vol] 84.4 fL 80-94 [facility] Work Phone: Hematocrit Auto (Bld) [Volum e fraction]on 08-24-2021 Hematocrit (Bld) [Volume fraction] 46.5 % 40-54 [facility] Work Phone: Laboratory - Hematology and Cell countson 08-24-2021 Erythrocyte distribution width (RBC) [Entitic vol] 51.9 fL 35.1-43.9 [facility] Work Phone: Erythrocyte distribution width (RBC) [Ratio] 17.2 % 11.6-14.6 [facility] Work Phone: Immature granulocytes/100 WBC (Bld) 0.500 % 0.0-0.9 [facility] Work Phone: Comment on above: IG% - Immature Granu locytes (promyelocytes, myelocytes and metamyelocytes) > 1% indicates that a LEFT SHIFT is Present. MCH (RBC) [Entitic mass] 25.8 pg 27.0-32.0 [facility] Work Phone: Nucleated RBC/100 WBC (Bld) [Ratio] 0 % 0-5 [facility] Work Phone: MCHC Auto (RBC) [Mass/Vol]on 08-24-2021 MCHC (RBC) [Mass/Vol] 30.5 g/dL 32-36 [facility] Work Phone: [phone] Platelets bldon 08-24-2021 Platelets (Bld) [#/Vol] 252 10*3/uL 150-450 [facility] Work Phone: Provider Note - ED v3on 03-03 Provider Note - ED v3 Provider Note: Chart Review: HISTORY OF PRESENTING ILLNESS CHERYL is a 70 year old Male and was seen by me at 17-Mar-2021 15:17. The historian is the patientspouse. Triage Information: Most recent Vital Sign Value Date PAST MEDICAL HISTORY ALLERGIES/INTOLERANCE S: Allergy Allergen: codeine Type: Drug Reaction: Unknown HEALTH HISTORY: History of COPD, HTN, Hypothyroidism, Hyperlipidemia, and CVD. Family history: no pertinent history. Social history: former smoker. Retired. OUTPATIENT MEDICATIONS: Home Medications Review Status for Reconciliation: Complete Med Status: Patient Currently Takes Medications Drug Name: rosuvastatin 20 mg oral tablet Instructions: 1 tab(s) orally once a day Drug Name: levothyroxine 75 mcg (0.075 mg) oral tablet Instructions: 1 tab(s) orally once a day Drug Name: Plavix 75 mg oral tablet Instructions: 1 tab(s) orally once a day Drug Name: Flonase 50 mcg/inh nasal spray Instructions: 1 spray(s) in each nostril once a day Drug Name: irbesartan 300 mg oral tablet Instructions: 1 tab(s) orally once a day Drug Name: metoprolol succinate 50 mg oral tablet, extended release Instructions: 1 tab(s) orally once a day Drug Name: Xarelto 20 mg oral tablet Instructions: 1 tab(s) orally once a day (in the evening) Drug Name: amLODIPine 5 mg oral tablet Instructions: 1 tab(s) orally once a day Drug Name: Albuterol (Eqv-ProAir HFA) 90 mcg/inh inhalation aerosol Instructions: 2 puff(s) inhaled every 4 hours, As Needed for wheezing/shortness of breath Drug Name: doxycycline monohydrate 100 mg oral tablet Instructions: 1 tab(s) orally 2 times a day x 10 days Drug Name: benzonatate 100 mg oral capsule Instructions: 1-2 cap(s) orally every 8 hours, As Needed for cough Drug Name: predniSONE 20 mg oral tablet Instructions: 1 tab(s) orally once a day x 3 days. Take with food. SIGNIFICANT EVENTS: Past Medical History Description:HYPERTENS ION/HYPERCHOLESTEROLE JAUN Description:INACTIVE THYROID Description:CVA Description:COPD Past Surgical History Description:HEART STENTS / SINUS SURGERY Reports also has history of 3 CVAs -last CVA was in 05/2020. CRITICAL CARE VITAL SIGNS: T PRBP SpO2O2(LPM) %FiO2 Method 17-Mar-2021 14:27:[id number] RR 16. Initial SpO2 91%; recheck 97% x2. MDM MDM/ED COURSE: This note was generated with voice recognition software and may contain errors including spelling, grammar, syntax, and misrecognization of what was dictated CHIEF COMPLAINT + home COVID test, cough/wheezing/shortn ess of breath HISTORY OF PRESENT ILLNESS Patient presents today with complaints of fatigue, a sometimes severe productive cough (clear phlegm), wheezing/shortness of breath, nasal congestion/pressure (L side >R), fevers/chills, body aches, and mild diarrhea (no blood or mucus in stool) - sxs started last Friday. He reports he took a home COVID test on Friday and it was positive; is concerned because his symptoms are getting worse and he has a history of emphysema - reports his oxygen typically is 94-95%. He denies any sore throat, ear pain, chest pain, rashes, urinary symptoms, and nausea/vomiting. Denies any current dizziness/lightheaded ness (although he reports has had lightheadedness with changes in position a few days ago); no changes in mental status. No new swelling in legs. Appetite is poor but is able to drink fluids without difficulty; denies any loss of sense of taste/smell. Has been taking Robitussin, Mucinex, hot tea, and albuterol with some temporary improvement in sxs; no other [id number] medications or home remedies for symptom management. Has not received the COVID-19 vaccine. Is a former smoker. His daughter tested + for COVID ~16 days ago. REVIEW OF SYSTEMS 10 systems reviewed negative with exception of history of present illness listed above PHYSICAL EXAMINATION General: Pleasant, well nourished male; alert and oriented; in no acute distress. Appears to be feeling somewhat unwell, but non-toxic appearing. Sitting comfortably on exam table. Non-dyspneic. Eyes: Pupils equal, round and reactive to light. No conjunctival erythema; no scleral icterus. HENT: + frontal, ethmoid, and maxillary sinus tenderness (L>R); + audible nasal congestion. Airway patent, TMs and ear canals clear bilaterally. Nasal mucosa injected and edematous. Oral mucosa moist. Posterior pharynx pink but without vesicles or oropharyngeal exudate aside from PND. Uvula is midline. Managing oral secretions without difficulty. Neck: Supple. Mildly tender, mobile anterior cervical lymphadenopathy bilat. Trachea is midline. Respiratory: Respirations easy and unlabored, Breath sounds equal. Lungs slightly diminished throughout, with few scattered wheezes and rhonchi that do not completely clear with cough; no rales. + harsh, semi-product (more content not included)... Normal [facility] APTTon 06-06-2020 aPTT Coag (Bld) [Time] 28 s Normal 25 - 35 [facility] Comment on above: Result Comment: THE APTT IS NO LONGER USED FOR MONITORING UNFRACTIONATED HEPARIN THERAPY. FOR MONITORING HEPARIN THERAPY, USE THE HEPARIN ASSAY. Performed By: #### A PTT ####[address] [address] CBC AND DIFFERENTIALon 06-06 Basophils (Bld) [#/Vol] 0.00 10*3/uL Normal 0.00 - 0.1 0 [facility] Comment on above: Performed By: #### C BCDF #### [address] [address] Basophils/100 WBC (Bld) 0.6 % Normal 0.0 - 2.0 [facility] Comment on above: Performed By: #### C BCDF #### [address] [address] Eosinophils (Bld) [#/Vol] 0.20 10*3/uL Normal 0.00 - 0.40 [facility] Comment on above: Performed By: #### C BCDF #### [address] [address] Eosinophils/100 WBC (Bld) 3.6 % Normal 0.0 - 6.0 [facility] Comment on above: Performed By: #### C BCDF #### [address] [address] Erythrocyte distribution width (RBC) [Ratio] 13.2 % Normal 11.5 - 14.5 [facility] Comment on above: Performed By: #### C BCDF #### [address] [address] Hematocrit (Bld) [Volume fraction] 46.7 % Normal 41.0 - 52.0 [facility] Comment on above: Performed By: #### C BCDF #### [address] [address] Hemoglobin (Bld) [Mass/Vol] 15.3 g/dL Normal 13.5 - 17.5 [facility] Comment on above: Performed By: #### C BCDF #### [address] [address] Lymphocytes (Bld) [#/Vol] 1.00 10*3/uL Normal 0.80 - 3.00 [facility] Comment on above: Performed By: #### C BCDF #### [address] [address] Lymphocytes/100 WBC (Bld) 19.6 % Normal 13.0 - 44.0 [facility] Comment on above: Performed By: #### C BCDF #### [address] [address] MCHC (RBC) [Mass/Vol] 32.6 g/dL Normal 32.0 - 36.0 [facility] Comment on above: Performed By: #### C BCDF #### [address] [address] MCV (RBC) [Entitic vol] 94 fL Normal 80 - 100 [facility] Comment on above: Performed By: #### C BCDF #### [address] [address] Monocytes (Bld) [#/Vol] 0.50 10*3/uL Normal 0.05 - 0.8 0 [facility] Comment on above: Performed By: #### C BCDF #### [address] [address] Monocytes/100 WBC (Bld) 9.1 % Normal 2.0 - 10.0 [facility] Comment on above: Performed By: #### C BCDF #### [address] [address] Neutrophils (Bld) [#/Vol] 3.60 10*3/uL Normal 1.60 - 5.50 [facility] Comment on above: Result Comment: Perc ent differential counts (%) should be interpreted in the context of the absolute cell counts (cells/L). Performed By: #### C BCDF #### [address] [address] Neutrophils/100 WBC (Bld) 67.1 % Normal 40.0 - 80.0 [facility] Comment on above: Performed By: #### C BCDF #### [address] [address] NUCLEATED RBC 0.2 /100 WBC Normal [facility] Comment on above: Performed By: #### C BCDF #### [address] [address] Platelets (Bld) [#/Vol] 236 10*3/uL Normal 150 - 450 [facility] Comment on above: Performed By: #### C BCDF #### [address] [address] RBC 4.98 x10E12/L Normal 4.50 - 5.90 [facility] Comment on above: Performed By: #### C BCDF #### [address] [address] WBC (Bld) [#/Vol] 5.3 10*3/uL Normal 4.4 - 11.3 [facility] Comment on above: Performed By: #### C BCDF #### [address] [address] CHEST 1 VIEWon 06-06-2020 CHEST 1 VIEW Patient Name: CHERYL DE LA FUENTE STUDY: CHEST 1 VIEW; 06/06/2020 10:56 am INDICATION: CVA. COMPARISON: 09/22/2019 ACCESSION NUMBER(S): [id number] ORDERING CLINICIAN: LATANYA ABEBE FINDINGS: Hyperinflation. Atherosclerotic calcification. No focal infiltrate. Lungs are well inflated IMPRESSION: 1. Hyperinflation. No acute infiltrate. Electronically signed by: AZUL JENKINS MD Normal [facility] COMPREHENSIVE PANELon 2020 Albumin [Mass/Vol] 3.5 g/dL Normal 3.4 - 5.0 [facility] Comment on above: Performed By: #### C MP #### [address] [address] ALP [Catalytic activity/Vol] 56 U/L Normal 33 - 136 [facility] Comment on above: Performed By: #### C MP #### [address] [address] ALT [Catalytic activity/Vol] 12 U/L Normal 10 - 52 [facility] Comment on above: Result Comment: Jaqueline ents treated with Sulfasalazine may generate falsely decreased results for ALT. Performed By: #### C MP #### [address] [address] Anion gap [Moles/Vol] 9 mmol/L Low 10 - 20 [facility] Comment on above: Performed By: #### C MP #### [address] [address] AST [Catalytic activity/Vol] 17 U/L Normal 9 - 39 [facility] Comment on above: Performed By: #### C MP #### [address] [address] Bilirubin [Mass/Vol] 0.6 mg/dL Normal 0.0 - 1.2 [facility] Comment on above: Performed By: #### C MP #### [address] [address] Calcium [Mass/Vol] 8.4 mg/dL Low 8.6 - 10.3 [facility] Comment on above: Performed By: #### C MP #### [address] [address] Chloride [Moles/Vol] 106 mmol/L Normal 98 - 107 [facility] Comment on above: Performed By: #### C MP #### [address] [address] Creatinine [Mass/Vol] 1.08 mg/dL Normal 0.50 - 1.30 [facility] Comment on above: Performed By: #### C MP #### [place] [id number] GFR- AM. >60 Normal >60 [facility] Comment on above: Result Comment: CALC ULATIONS OF ESTIMATED GFR ARE PERFORMED USING THE MDRD STUDY EQUATION FOR THE IDMS-TRACEABLE CREATININE METHODS. CLIN CHEM 2007;53:766-72 Performed By: #### C MP #### [address] [address] GFR-NON AM. >60 Normal >60 [facility] Comment on above: Performed By: #### C MP #### [address] [address] Glucose [Mass/Vol] 93 mg/dL Normal 74 - 99 [facility] Comment on above: Performed By: #### C MP #### [address] [address] HCO3 (Bld) [Moles/Vol] 25 mmol/L Normal 21 - 32 [facility] Comment on above: Performed By: #### C MP #### [address] [address] Potassium [Moles/Vol] 4.1 mmol/L Normal 3.5 - 5.3 [facility] Comment on above: Performed By: #### C MP #### [address] [address] Protein [Mass/Vol] 5.7 g/dL Low 6.4 - 8.2 [facility] Comment on above: Performed By: #### C MP #### [address] [address] Sodium [Moles/Vol] 136 mmol/L Normal 136 - 145 [facility] Comment on above: Performed By: #### C MP #### [address] [address] Urea nitrogen [Mass/Vol] 16 mg/dL Normal 6 - 23 [facility] Comment on above: Performed By: #### C MP #### [address] [address] CORONAVIRUS 2019, SCREEN ASY MPTOMATICon 06-06-2020 SARS-CoV-2 (COVID-19) RNA LOGAN+probe Ql (Unsp spec) Not detected Normal Not Detected [facility] Comment on above: Result Comment: . This test has received FDA Emergency Use Authorization (EUA) and has been verified by [facility]. This test is only authorized for the duration of time that circumstances exist to justify the authorization of the emergency use of in vitro diagnostic tests for the detection of SARS-CoV-2 virus and/or diagnosis of COVID-19 infection under section 564(b)(1) of the Act, 21 U.S.C. 360bbb-3(b)(1), unless the authorization is terminated or revoked sooner. [facility] is certified under CLIA-88 as qualified to perform high complexity testing. Testing is performed in the [facility] laboratory located at [address] [place] [address]. SARS-CoV-2/Flu/RSV Multiplex Test: Fact sheet for providers: https://www.fda.gov/media/337841/download Fact sheet for patients: https://www.fda.gov/media/592724/download Performed By: #### C OVSC #### [place] [address] Lab Specimen Source Nasal, Nasopharyngeal Normal [facility] Comment on above: Performed By: #### C OVSC #### [place] [address] Covid 19 [place] 1 SARS-CoV-2 (COVID-19) RNA LOGAN+probe Ql (Unsp spec) NEGATIVE COVID-19 Test Coronaviruses are common world-wide and are the cause of many common colds. SARS-COV2 is a new coronavirus that began circulating worldwide in 2019 so we are calling it COVID-19. It has been estimated that four out of five patients with COVID-19 will recover at home without the need for medical attention. Symptoms of COVID-19 may include cough, fever, shortness of breath, loss of taste or smell and other flu-like symptoms including chills, sore muscles, sore throat, and headache. Severe illness is more common in older people and people with other health problems such as high blood pressure, obesity, and immune system problems. If the test is positive, you have COVID-19. You will be contacted by the ordering physicians office and instructed to remain on home isolation, in accordance with CDC guidelines. You may also be contacted by the [facility] to see if any of your close contacts may have been exposed to the virus and need to quarantine. If the test is negative, you likely do not have COVID-19 at this time, but you still may have a different illness that can spread to other people (like Influenza, or the Flu) and could still be at risk for getting COVID-19. We recommend that you stay away from other people to limit the spread of illness until your symptoms are improving and you are fever-free for 24 hours without the use of fever lowering medications such as acetaminophen or ibuprofen. No test is 100% accurate so if you are still concerned you may have COVID-19, talk to your doctor about the need to continue to stay away from others. Medicines Unless your provider told you not to use the following: Acetaminophen (Tylenol and others) is generally safe. Anti-inflammatory medications, such as Ibuprofen (Advil or Motrin) or Naproxen (Aleve) can also be used. Qgvr-rln-kascxuw cough and cold medicines can be used according to the instructions on the package. Some ttxz-hgg-qihyfyv medicines also contain acetaminophen. Make sure you are not taking more than your recommended dose. For those not hospitalized, there is no specific treatment available for this illness. Antibiotics do not treat Coronaviruses. Follow-Up Follow up with your doctor by scheduling a virtual visit or consider follow-up at one of our urgent care fever clinics. If you are having difficulty breathing, or are very weak and having difficulty standing, this is a medical emergency. Call 911 or have someone take you to the nearest emergency room immediately. If possible, wear a facemask. Additional guidance from the CDC for patients who tested POSITIVE for COVID-19 How to isolate: Isolate yourself in a specific room at home and limit your contact with others. Use a separate bathroom from other members of the household, when possible. Leave home only to get essential medical care. Do not go to work, school or public areas. Avoid using public transportation, ride-sharing, or taxis. Restrict contact with pets and other animals. If you must care for your pet or be around animals while you are sick, wash your hands before and after your interaction and wear a facemask. Make sure that shared spaces in the home have good airflow, such as by an air conditioner or an opened window, weather permitting. Personal Hygiene Procedures: Wear a face mask when in the same room as other people or pets. If a face mask interferes with your breathing, others should wear a mask when sharing space with you. Frequent hand-washing: wash your hands with soap and water for at least 20 seconds. If soap and water are not available, use alcohol-based hand felt pad cutter. Avoid touching your eyes, nose, and mouth with unwashed hands. Household Hygiene Procedures: Avoid sharing personal household items such as dishes, glassware, cups, eating utensils, towels or bedding with other people or pets in your home. After use, these items should be washed with soap and hot water. Disinfect all high-touch surfaces every day with antibacterial cleaning solutions such as Lysol wipes, bleach, cleansers, etc. High-touch surfaces include tabletops, doorknobs, bathroom fixtures, toilets, phones, keyboards, tablets and bedside tables. Immediately clean any surfaces that may have blood, poop or body fluids on them, using antibacterial cleaning solutions such as Lysol wipes, bleach, cleansers, etc. If clothing or bedding come into contact with blood, poop or body fluids, they should be washed immediately. Follow the directions on the laundry detergent and clothing labels but hot water is recommended when possible. Stopping home isolation precautions: If possible, consult your doctor before stopping home isolation precautions. According to the CDC, you can discontinue home isolation precautions when you have met both of these criteria: Your fever and respiratory symptoms have been gone for 24 lianet (more content not included)... Normal [facility] GLUCOSE-POCTon 06-06-2020 Glucose [Mass/Vol] 78 mg/dL Normal 74 - 99 [facility] Comment on above: Performed By: #### G THOMAS #### [place] [id number] [place] [id number] NR CT BRAIN ATTACK ANGIO HEA D W/O-W CONTRAST AND POST PROCon 06-06-[address] BRAIN ATTACK ANGIO HEAD W/O-W CONTRAST AND POST PROC Patient Name: CHERYL DE LA FUENTE STUDY: NR CT BRAIN ATTACK ANGIO NECK W CONTRAST AND POST PROC; CT BRAIN ATTACK ANGIO HEAD W/O-W CONTRAST AND POST PROC ; 06/06/2020 10:26 am INDICATION: STROKE SX. COMPARISON: None. ACCESSION NUMBER(S): [id number]; [id number] ORDERING CLINICIAN: EVANGELISTA COOK TECHNIQUE: Unenhanced CT images of the head were obtained. Subsequently, 90 cc Omnipaque 350 was administered intravenously and axial images of the head and neck were acquired. Coronal, sagittal, and 3-D reconstructions were provided for review. FINDINGS: CTA HEAD FINDINGS: Anterior circulation: There is narrowing of the superior M2 branch, which may represent an area of stenosis. The bilateral intracranial internal carotid arteries, bilateral carotid terminals, bilateral proximal anterior cerebral arteries are normal. Posterior circulation: Bilateral intracranial vertebral arteries, vertebrobasilar junction, basilar artery and proximal posterior cerebral arteries are normal. CTA NECK FINDINGS: Right carotid vessels: The common carotid artery is normal. Calcified and noncalcified plaque at bifurcation without measurable luminal narrowing.. The internal carotid artery in the neck is normal. There is % stenosis . Left carotid vessels: The common carotid artery is normal. Calcified and noncalcified plaque at the bifurcation without measurable luminal narrowing.. The internal carotid artery in the neck is normal. There is % stenosis . Vertebral vessels: The visualized segments of the cervical vertebral arteries are normal in caliber. IMPRESSION: No measurable carotid or vertebral stenosis Incidental atherosclerotic changes at both bifurcations No evidence of intracranial aneurysm, vascular malformation or branch occlusion. No evidence for significant stenosis or large branch vessel cutoffs of the intracranial vessels. Electronically signed by: DEVIN ALMONET MD [facility] NR CT BRAIN ATTACK ANGIO NEC K W CONTRAST AND POST PROCon 06-06-[address] BRAIN ATTACK ANGIO NECK W CONTRAST AND POST PROC Patient Name: CHERYL DE LA FUENTE STUDY: NR CT BRAIN ATTACK ANGIO NECK W CONTRAST AND POST PROC; CT BRAIN ATTACK ANGIO HEAD W/O-W CONTRAST AND POST PROC ; 06/06/2020 10:26 am INDICATION: STROKE SX. COMPARISON: None. ACCESSION NUMBER(S): [id number]; [id number] ORDERING CLINICIAN: EVANGELISTA COOK TECHNIQUE: Unenhanced CT images of the head were obtained. Subsequently, 90 cc Omnipaque 350 was administered intravenously and axial images of the head and neck were acquired. Coronal, sagittal, and 3-D reconstructions were provided for review. FINDINGS: CTA HEAD FINDINGS: Anterior circulation: There is narrowing of the superior M2 branch, which may represent an area of stenosis. The bilateral intracranial internal carotid arteries, bilateral carotid terminals, bilateral proximal anterior cerebral arteries are normal. Posterior circulation: Bilateral intracranial vertebral arteries, vertebrobasilar junction, basilar artery and proximal posterior cerebral arteries are normal. CTA NECK FINDINGS: Right carotid vessels: The common carotid artery is normal. Calcified and noncalcified plaque at bifurcation without measurable luminal narrowing.. The internal carotid artery in the neck is normal. There is % stenosis . Left carotid vessels: The common carotid artery is normal. Calcified and noncalcified plaque at the bifurcation without measurable luminal narrowing.. The internal carotid artery in the neck is normal. There is % stenosis . Vertebral vessels: The visualized segments of the cervical vertebral arteries are normal in caliber. IMPRESSION: No measurable carotid or vertebral stenosis Incidental atherosclerotic changes at both bifurcations No evidence of intracranial aneurysm, vascular malformation or branch occlusion. No evidence for significant stenosis or large branch vessel cutoffs of the intracranial vessels. Electronically signed by: DEVIN ALMONTE MD Normal [facility] PT/INRon 06-06-2020 PT Coag (PPP) [Time] 14.9 s High 10.1 - 13.3 [facility] Comment on above: Performed By: #### P TINR ####[place] [id number] PT, INR 1.3 High 0.9 - 1.1 [facility] Comment on above: Performed By: #### P TINR ####[place] [id number] Provider Note - ED v2on 04-0 Provider Note - ED v2 Provider Note - ED v2: Chart Review: ED NOTES ED NOTES: Patient arrived via EMS from home with complaint of stroke symptoms. About 8:30 AM it was noted that the patient was okay. He then was found to be not able to speak and having right-sided weakness. Patient has a history of TIA and stroke in the past. He was treated with Eliquis. His last stroke was about 2 years ago. He was treated at [facility]. The patient is unable to give history as he cannot speak. He can indicate no answers. He says he is not having any pain. Daughter was able to provide some history. Apparently the nephew was in the house and found the patient to not be able to speak and have right-sided weakness. Nurse states that his NIH stroke scale was probably about 16 when he got here. On my assessment is 8. HISTORY OF PRESENTING ILLNESS CHERYL is a 69 year old Male and was seen by me at 06-Jun-2020 10:20 for a chief complaint of stroke symptoms (right side facial droop, not able to speak, right side weakness; patient fell at time of symptoms; LKW 0830 this date. STROKE ALERT CALLED DRIVER)(1). Triage Information: Most recent Vital Sign Value Date Temp (F): 97.5 06-06-2020 10:09 Temp (C): 36.3 06-06-2020 10:09 Heart Rate (beats/min): 88 06-06-2020 10:09 Respirations (breaths/min): 24 06-06-2020 10:09 SpO2 (%): 95 06-06-2020 10:09 BP Systolic (mm Hg): 169 06-06-2020 10:09 BP Diastolic (mm Hg): 121 06-06-2020 10:09 PAST MEDICAL HISTORY ATTESTATION: I have reviewed and confirmed nurse's/medic's notes for patient's medications, allergies, and medical, surgical, family and social history ALLERGIES/INTOLERANCE S: Allergy Allergen: codeine Type: Drug Reaction: Unknown HEALTH HISTORY: No documented data. OUTPATIENT MEDICATIONS: Home Medications Review Status for Reconciliation: Complete Med Status: Patient Currently Takes Medications Drug Name: rosuvastatin 20 mg oral tablet Instructions: 1 tab(s) orally once a day Drug Name: levothyroxine 75 mcg (0.075 mg) oral tablet Instructions: 1 tab(s) orally once a day Drug Name: Plavix 75 mg oral tablet Instructions: 1 tab(s) orally once a day Drug Name: Flonase 50 mcg/inh nasal spray Instructions: 1 spray(s) in each nostril once a day Drug Name: irbesartan 300 mg oral tablet Instructions: 1 tab(s) orally once a day Drug Name: Albuterol (Eqv-ProAir HFA) 90 mcg/inh inhalation aerosol Instructions: 2 puff(s) inhaled every 4 hours, As Needed to prevent COPD symptoms Drug Name: lisinopril-hydrochlor othiazide 20 mg-12.5 mg oral tablet Instructions: 1 tab(s) orally once a day Drug Name: Advair Diskus 500 mcg-50 mcg inhalation powder Instructions: 1 puff(s) inhaled 2 times a day Drug Name: Eliquis 5 mg oral tablet Instructions: 1 tab(s) orally 2 times a day SIGNIFICANT EVENTS: Past Medical History Description:HYPERTENS ION/HYPERCHOLESTEROLE JAUN Description:INACTIVE THYROID Description:CVA Description:COPD Past Surgical History Description:HEART STENTS/ SINUS SURGERY REVIEW OF SYSTEMS ROS not obtained due to patient being unable to respond. RESULTS/VITAL SIGNS RESULTS: Recent Lab Results: I have reviewed these laboratory results: Urinalysis 06-Jun-2020 12:43:00 ResultValue Color, Urine Straw Reference Range: STRAW,YELLOW Appearance, Urine CLEAR Specific [place], Urine 1.044 H pH, Urine 6.0 Protein, Urine NEGATIVE Glucose, Urine NEGATIVE Blood, Urine NEGATIVE Ketones, Urine NEGATIVE Bilirubin, Urine NEGATIVE Urobilinogen, Urine <2.0 Nitrite, Urine Negative Leukocyte Esterase, Urine NEGATIVE Coronavirus 2019, Screen Asymptomatic 06-Jun-2020 11:09:00 ResultValue Fluid Source Nasal, Nasopharyngeal Coronavirus 2019,PCR NOT DETECTED Reference Range: Not Detected . This test has received FDA Emergency Use Authorization (EUA) and has been verified by [facility]. This test is only authorized for the duration of time that circum Complete Blood Count + Differential 06-Jun-2020 10:38:00 ResultValue White Blood Cell Count 5.3 Nucleated Erythrocyte Count 0.2 Red Blood Cell Count 4.98 HGB 15.3 HCT 46.7 MCV 94 MCHC 32.6 PLT 236 RDW-CV 13.2 Neutrophil % 67.1 Lymphocyte % 19.6 Monocyte % 9.1 Eosinophil % 3.6 Basophil % 0.6 Neutrophil Count 3.60 Lymphocyte Count 1.00 Monocyte Count 0.50 Eosinophil Count 0.20 Basophil Count 0.00 Comprehensive Metabolic Panel 06-Jun-2020 10:38:00 ResultValue Glucose, Serum 93 NA 136 K 4.1 CL 106 Bicarbonate, Serum 25 Anion Gap, Serum 9 L BUN 16 CREAT 1.08 GFR-Non >60 GFR- >60 Calcium, Serum 8.4 L ALB 3.5 ALKP 56 T Pro 5.7 L T Bili 0.6 Alanine Aminotransferase, Serum 12 Aspartate Transaminase, Serum 17 PT + INR, Plasma 06-Jun-2020 10:38:00 ResultValue Prothrombin Time, Pl (more content not included)... Normal [facility] Risk Screen - Adult Emergenc yon 06-06-2020 Risk Screen - Adult Emergency Preferred Language: Preferred Language: Preferred Language for Discussing Health Care (patient/designee)Fred villa Advanced Directives: Advance Directive/DNRno Family Violence Adult: Abuse Screen: Are you or have you been threatened or abused physically, emotionally, or sexually by anyoneno Learning Assessment (Patient): Learning Assessment (Patient): Patient is Able to be Assessed for Learningno Reason Unable to Assessmentally impaired Learning Assessment (Other Learner): Learning Assessment (Other Learner): Other learner availableno Pressure Injury/TB/Substance: Pressure Injury: Pressure Injury Present on Admissionno Do you have a coughno Admission Risk Screen: Significant IndicatorsComplete CAGE: CAGE: Is this an injured patient at a Trauma Center ([facility]/[place]/[facility]/[place]): no Electronic Signatures: Carey Kapoor (MURIEL) (Signed 06-Jun-2020 10:33) Authored: Preferred Language, Advanced Directives, Family Violence Adult, Learning Assessment (Patient), Learning Assessment (Other Learner), Pressure Injury/TB/Substance, Pressure Injury, CAGE Last Updated: 06-Jun-2020 10:33 by Carey Kapoor (MURIEL) Normal [facility] TROPONIN Ion 06-06-2020 Troponin I.cardiac [Mass/Vol] ng/mL Normal 0.00 - 0.03 [facility] Comment on above: Result Comment: LESS THAN 0.04 NG/ML: NEGATIVE REPEAT TESTING IN THREE TO SIX HOURS IF CLINICALLY INDICATED. 0.04 - 0.5 NG/ML: CONSISTENT WITH POSSIBLE CARDIAC DAMAGE AND POSSIBLE INCREASED CLINICAL RISK. SERIAL MEASUREMENTS MAY HELP ASSESS EXTENT OF MYOCARDIAL DAMAGE. >0.5 NG/ML: CONSISTENT WITH CARDIAC DAMAGE, INCREASED CLINICAL RISK AND MYOCARDIAL INFARCTION. SERIAL MEASUREMENTS MAY HELP ASSESS EXTENT OF MYOCARDIAL DAMAGE. . Note: Troponin I testing is performed using different testing methodology at [facility] than at other [facility] hospitals. Direct result comparisons should only be made within the same method. Performed By: #### T ROP2 #### [place] [id number] [place] [id number] Triage - EDon 06-06-2020 Triage - ED Chart Review: PRIMARY ASSESSMENT Team Activation Team Activated: STROKE Activation Team: prior to arrival by EMS Time of Activation: 06-Jun-2020 10:00 ARRIVAL INFORMATION Mode of Arrival: ambulance Agency: [facility] Agency Name: [facility] with [facility] assist CHIEF COMPLAINT CHERYL DE LA FUENTE is a Male patient with a chief complaint of stroke symptoms (right side facial droop, not able to speak, right side weakness; patient fell at time of symptoms; LKW 0830 this date. STROKE ALERT CALLED DRIVER). Onset of the Complaint: 06-Jun-2020 08:30 Triage Date/Time: 06-Jun-2020 10:09 PREM: 2 Pain Rating (0-10): unable to assess Vital Signs: Temperature: 97.5F ( 36.3C) taken axillary Blood Pressure: 169/121 Mean: Heart Rate: 88 Respiratory Rate: 24 Pulse Oximetry: 95% on room air, no respiratory support. Height: 5 feet 10 inches. 177.8 CM Weight: 180.5 pounds. Calculated 81.9 kg. (stated) Calculated BMI (kg/m2): 25.907 Calculated BSA (m2) 2.01 Shaka Coma Scale: Best Eye Response: (E4) spontaneous Best Motor Response: (M5) localizes pain Best Verbal Response: (V2) incomprehensible speech Shaka Score: 11 Cough lasting greater than 3 weeks: no Patient immunocompromised related to: N/A Allergies: unknown Patient has homicidal thoughts: unable to assess Symptoms Are POSITIVE For: aphasia, ataxia, confusion, facial droop and numbness. Symptoms Are Negative For: diaphoresis, headache, seizure and vomiting. Last Known Well: known Time Last Known Well Date/Time: 06-Jun-2020 08:30 IV tPA administered prior to arrival here: No Brain attack / Stroke alert called: Prior to arrival by EMS Date and Time of Brain Attack / Stroke Alert: 06-Jun-2020 09:45 Stroke / BAT team arrival: 06-Jun-2020 10:[address] Patient taken directly to CT scanner: yes Risk Screens Suicide Risk Screen Scott Risk Screen: unable to assess Scott Risk Screen Del Castillo Fall Scale Screening Unable to assess unable to assess Interventions: Del Castillo Fall Interventions: HIGH INTERVENTIONS *Low and Moderate Interventions Plus: * supervised toileting at all timesoptional: hip protectors (with history of osteoporosis) and optional: floor mats TRAVEL HISTORY Travel History Coronavirus Screening: no exposure or symptoms PAIN Pain Scale Used: TERRENCE Pain Rating (0-10): unable to assess Past Medical History: Past Medical History Reviewedyes Electronic Signatures: Deepika Rhoades (EMT-P) (Signed 06-Jun-2020 10:32) Authored: Quick Triage, Risk Screens, Pain, Chart Review, Scores, Past Medical History Carey Kapoor (RN) (Signed 06-Jun-2020 12:08) Authored: Quick Triage, Pain, Chart Review Last Updated: 06-Jun-2020 12:08 by Carey Kapoor (RN) Normal [facility] URINALYSISon 06-06-2020 Appearance (U) CLEAR Normal CLEAR [facility] Comment on above: Performed By: #### U A #### [place] [address] Bilirubin Ql (U) Negative Normal NEGATIVE [facility] Comment on above: Performed By: #### U A #### [place] [address] Color (U) Straw Normal STRAW,YELLOW [facility] Comment on above: Performed By: #### U A #### [address] [address] Glucose Ql (U) Negative Normal NEGATIVE [facility] Comment on above: Performed By: #### U A #### [address] [address] Hemoglobin Ql (U) Negative [facility]GATIVE [facility] Comment on above: Performed By: #### U A #### [place] [id number] Ketones Ql (U) Negative Normal NEGATIVE [facility] Comment on above: Performed By: #### U A #### [place] [id number] Leukocyte esterase Test strip Ql (U) Negative Normal NEGATIVE [facility] Comment on above: Performed By: #### U A #### [address] [address] Nitrite Ql (U) Negative Normal NEGATIVE [facility] Comment on above: Performed By: #### U A #### [address] [address] pH (U) 6.0 [pH] Normal 5.0 - 8.0 [facility] Comment on above: Performed By: #### U A #### [address] [address] [address] Protein Ql (U) Negative Normal NEGATIVE [facility] Comment on above: Performed By: #### U A #### [address] [address] Specific gravity (U) [Rel density] 1.044 High 1.005 - 1.035 [facility] Comment on above: Performed By: #### U A #### [address] [address] Urobilinogen (U) [Mass/Vol] mg/dL Normal 0.0 - 1.9 [facility] Comment on above: Performed By: #### U A #### [address] [address] CORONAVIRUS 2019 BY PCRon SARS-CoV-2 (COVID-19) RNA LOGAN+probe Ql (Unsp spec) Not detected Normal Not Detected [facility] Comment on above: Result Comment: . This assay is designed to detect the N, ORF1ab and/or S genes of SARS-CoV-2 via nucleic acid amplification. A Negative (NOT DETECTED) result does not preclude 2019-nCoV infection since the adequacy of sample collection and/or low viral burden may result in presence of viral nucleic acids below the clinical sensitivity of this test method. Negative (NOT DETECTED) result should not be used as the sole basis for treatment or other patient management decisions. Rather negative results should be combined with clinical observations, patient history, and epidemiological information to make patient management decisions. Fact sheet for providers: https://www.fda.gov/media/398179/download Fact sheet for patients: https://www.fda.gov/media/156964/download This test has received FDA Emergency Use Authorization (EUA) and has been verified by [facility] ([facility]). This test is only authorized for the duration of time that circumstances exist to justify the authorization of the emergency use of in vitro diagnostic tests for the detection of SARS-CoV-2 virus and/or diagnosis of COVID-19 infection under section 564(b)(1) of the Act, 21 U.S.C. 360bbb-3(b)(1), unless the authorization is terminated or revoked sooner. [facility] is certified under CLIA-88 as qualified to perform high complexity testing. Testing is performed in the [facility] laboratories located at [address] [place] [address]. Performed By: #### C OV19 #### [address] [place] [address] Covid 19 Resultson 1 SARS-CoV-2 (COVID-19) RNA LOGAN+probe Ql (Unsp spec) NEGATIVE COVID-19 Test Coronaviruses are common world-wide and are the cause of many common colds. SARS-COV2 is a new coronavirus that began circulating worldwide in 2019 so we are calling it COVID-19. It has been estimated that four out of five patients with COVID-19 will recover at home without the need for medical attention. Symptoms of COVID-19 include cough, fever, shortness of breath, loss of taste or smell and other flu-like symptoms including chills, sore muscles, sore throat, and headache. Severe illness is more common in older people and people with other health problems such as high blood pressure, obesity, and immune system problems. If the test is positive, you have COVID-19. You will be contacted by the ordering physicians office and instructed to remain on home isolation, in accordance with CDC guidelines. You may also be contacted by the [facility] to see if any of your close contacts may have been exposed to the virus and need to quarantine. If the test is negative, you likely do not have COVID-19 at this time, but you still may have a different illness that can spread to other people (like Influenza, or the Flu) and could still be at risk for getting COVID-19. We recommend that you stay away from other people to limit the spread of illness until your symptoms are improving and you are fever-free for 24 hours without the use of fever lowering medications such as acetaminophen or ibuprofen. No test is 100% accurate so if you are still concerned you may have COVID-19, talk to your doctor about the need to continue to stay away from others. Medicines Acetaminophen (Tylenol and others) is generally safe. Anti-inflammatory medications, such as Ibuprofen (Advil or Motrin) or Naproxen (Aleve) can also be used. Jdxw-drr-ccictai cough and cold medicines can be used according to the instructions on the package. Some uzuu-mki-huqgyvs medicines also contain acetaminophen. Make sure you are not taking more than your recommended dose For those not hospitalized, there is no specific treatment available for this illness. Antibiotics do not treat Coronaviruses. Follow-Up Follow up with your doctor by scheduling a virtual visit or consider follow-up at one of our urgent care fever clinics. If you are having difficulty breathing, or are very weak and having difficulty standing, this is a medical emergency. Call 911 or have someone take you to the nearest emergency room immediately. If possible, wear a facemask. Additional guidance from the CDC for patients who tested POSITIVE for COVID-19 How to isolate: Isolate yourself in a specific room at home and limit your contact with others. Use a separate bathroom from other members of the household, when possible. Leave home only to get essential medical care. Do not go to work, school or public areas. Avoid using public transportation, ride-sharing, or taxis. Restrict contact with pets and other animals. If you must care for your pet or be around animals while you are sick, wash your hands before and after your interaction and wear a facemask. Make sure that shared spaces in the home have good airflow, such as by an air conditioner or an opened window, weather permitting. Personal Hygiene Procedures: Wear a face mask when in the same room as other people or pets. If a face mask interferes with your breathing, others should wear a mask when sharing space with you. Frequent hand-washing: wash your hands with soap and water for at least 20 seconds. If soap and water are not available, use alcohol-based hand felt pad cutter. Avoid touching your eyes, nose, and mouth with unwashed hands. Household Hygiene Procedures: Avoid sharing personal household items such as dishes, glassware, cups, eating utensils, towels or bedding with other people or pets in your home. After use, these items should be washed with soap and hot water. Disinfect all high-touch surfaces every day with antibacterial cleaning solutions such as Lysol wipes, bleach, cleansers, etc. High-touch surfaces include tabletops, doorknobs, bathroom fixtures, toilets, phones, keyboards, tablets and bedside tables. Immediately clean any surfaces that may have blood, poop or body fluids on them, using antibacterial cleaning solutions such as Lysol wipes, bleach, cleansers, etc. If clothing or bedding come into contact with blood, poop or body fluids, they should be washed immediately. Follow the directions on the laundry detergent and clothing labels but hot water is recommended when possible. Stopping home isolation precautions: If possible, consult your doctor before stopping home isolation precautions. According to the CDC, you can discontinue home isolation precautions when you have met both of these criteria: Your fever and respiratory symptoms have been gone for 24 hours without the use of any medicines like ibuprofen (Motrin) (more content not included)... [facility] CORONAVIRUS 2019 BY PCRon DATE OF SYMPTOM ONSET [YYYYMMDD]? [id number] [facility] Comment on above: Performed By: #### C OV19 #### [facility] [address] [place] [id number] Lab Specimen Source Nasal, Nasopharyngeal [facility] Comment on above: Performed By: #### C OV19 #### [facility] [address] [place] [address] Provider Note - ED v2on 03-0 Provider Note - ED v2 Provider Note - ED v2: Chart Review ED NOTES ED NOTES: Patient came in with complaints of head and chest congestion. He also complains of sore throat fatigue, achy body and exposure to illness from his grandson. Son was swabbed for Covid and was and tested negative. HISTORY OF PRESENTING ILLNESS CHERYL is a 69 year old Male and was seen by me at 04-May-2020 13:40. The historian is the patient. Triage Information: Most recent Vital Sign Value Date PAST MEDICAL HISTORY ATTESTATION: I have reviewed and confirmed nurse's/medic's notes for patient's medications, allergies, and medical, surgical, family and social history PSYCHOSOCIAL SCREENING: NO: concerns for safety at home, feelings of depression, feels like hurting others and feels like hurting self ALLERGIES/INTOLERANCE S: Allergy Allergen: codeine Type: Drug Reaction: Unknown HEALTH HISTORY: No documented data. OUTPATIENT MEDICATIONS: Home Medications Review Status for Reconciliation: Complete Med Status: Patient Currently Takes Medications Drug Name: rosuvastatin 20 mg oral tablet Instructions: 1 tab(s) orally once a day Drug Name: levothyroxine 75 mcg (0.075 mg) oral tablet Instructions: 1 tab(s) orally once a day Drug Name: Plavix 75 mg oral tablet Instructions: 1 tab(s) orally once a day Drug Name: Flonase 50 mcg/inh nasal spray Instructions: 1 spray(s) in each nostril once a day Drug Name: irbesartan 300 mg oral tablet Instructions: 1 tab(s) orally once a day Drug Name: doxycycline hyclate 100 mg oral tablet Instructions: 1 tab(s) orally 2 times a day Drug Name: predniSONE 10 mg oral tablet Instructions: 1 tab(s) orally once a day Drug Name: doxycycline hyclate 100 mg oral tablet Instructions: 1 tab(s) orally 2 times a day SIGNIFICANT EVENTS: Past Medical History Description:HYPERTENS ION/HYPERCHOLESTEROLE JAUN Description:INACTIVE THYROID Description:CVA Description:COPD Past Surgical History Description:HEART STENTS/ SINUS SURGERY REVIEW OF SYSTEMS CONSTITUTIONAL: POSITIVE for: malaise ENMT Nose: POSITIVE for: congestion Throat/Neck: POSITIVE for: throat pain RESPIRATORY: POSITIVE for: cough and wheezing INTEGUMENTARY: ( Pinpoint multicolored lesion located on left side of nose.) All other systems reviewed and are negative RESULTS/VITAL SIGNS VITAL SIGNS: T PRBP SpO2O2(LPM) %FiO2 Method 04-May-2020 13:11:[id number] 98 PHYSICAL EXAM CONSTITUTIONAL: Well appearing, well nourished, awake, alert, oriented to person, place, time/situation and in no apparent distress. HENMT: Airway patent, . Nasal mucosa clear. Mouth with normal mucosa. Throat has no vesicles, no oropharyngeal exudates and uvula is midline, erythema noted in back of throat.. Face with no lymph node enlargement. EYES: pupils are accommodating CARDIOVASCULAR: Normal rate, regular rhythm. RESPIRATORY: Breath sounds clear and equal bilaterally and unlabored. Expiratory wheezes noted in bilateral lower lobes. GASTROINTESTINAL: Abdomen soft, non-distended, no rebound, no guarding. Bowel sounds normal in all 4 quadrants. GENITOURINARY: No discharge, no lesions. MUSCULOSKELETAL: Spine appears normal, range of motion is not limited, no muscle or joint tenderness. NEUROLOGICAL: Alert and oriented, no focal deficits, no motor or sensory deficits. SKIN: Skin normal color for race, warm, dry and intact. No evidence of trauma. PSYCHIATRIC: Alert and oriented to person, place, time/situation. normal mood and affect. No apparent risk to self or others. HEME/LYMPH: No cervical adenopathy. CLINICAL IMPRESSION Diagnosis/Annotation: ED Dx Name:Sore throat Code:J02.9 Name:Chest congestion Code:R09.89 Disposition: discharged Type: home ATTESTATION Comments/Additional Findings: Patient was prescribed doxycycline to take twice a day for 10 days. Prescription was also electronically sent for prednisone taper. Covid swab sent. Patient was educated to not take prednisone until Covid result comes back and is negative. Patient educated on supportive therapies to take at home along with doxycycline. Educated patient to quarantine at home until Covid results come back. During assessment small pinpoint multicolored lesion noted to left nostril. 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 patient strongly encouraged to make a dermatology appointment to get lesion assessed. Patient agrees with this care plan to follow-up with drying frame operator for suspicious lesion. CRITICAL CARE TIME Is this a critically ill patient: no Electronic Signatures for Addendum Section: Yaneth Chatterjee ([place]) (Signed Addendum 05-May-2020 09:33) patient called with negative covid results, offers no further questions at this time Electronic Signatures: Sen, (more content not included)... Normal [facility] Basic Panelon 12-09-2018 Calcium [Mass/Vol] 8.7 mg/dL Normal 8.5-10.1 [facility] Comment on above: Performed By: #### L P8 #### [place] [address] CO2 Blood 26 mEq/L Normal 21-32 [facility] Comment on above: Performed By: #### L P8 #### [facility] [address] [place], [place] [address] Creatinine [Mass/Vol] 1.04 mg/dL Normal 0.67-1.17 [facility] Comment on above: Performed By: #### L P8 #### [facility] [address] [place], [place] [address] Glucose [Mass/Vol] 89 mg/dL Normal 70-99 [facility] Comment on above: Performed By: #### L P8 #### [facility] [address] [place] [address] Urea nitrogen [Mass/Vol] 18 mg/dL Normal 7-18 [facility] Comment on above: Performed By: #### L P8 #### [facility] [address] [place] [address] Chloride [Moles/Vol] 101 mmol/L Normal 98-109 [facility] Comment on above: Result Comment: Test ing performed on an Gar i-STAT. Performed By: #### L P8 #### [place] [address] Potassium [Moles/Vol] 3.3 mmol/L Low 3.5-4.9 [facility] Comment on above: Result Comment: Test ing performed on an Gar i-STAT. Performed By: #### L P8 #### [place] [address] Sodium [Moles/Vol] 138 mmol/L Normal 138-146 [facility] Comment on above: Result Comment: Test ing performed on an Gar i-STAT. Performed By: #### L P8 #### [place] [address] Hemogramon 12-09-2018 Erythrocyte distribution width (RBC) [Ratio] 12.1 % Normal 11.5-15.9 [facility] Comment on above: Performed By: #### L CBC #### [place] [address] Hematocrit (Bld) [Volume fraction] 48.7 % Normal 42.0-52.0 [facility] Comment on above: Performed By: #### L CBC #### [facility] [address] [place], [place] [address] Hemoglobin (Bld) [Mass/Vol] 16.2 g/dL Normal 14.0-18.0 [facility] Comment on above: Performed By: #### L CBC #### [facility] [address] [place], [place] [address] MCH (RBC) [Entitic mass] 31.3 pg High 27.0-31.0 [facility] Comment on above: Performed By: #### L CBC #### [facility] [address] [place] [address] MCHC (RBC) [Mass/Vol] 33.3 % Normal 32.0-36.0 [facility] Comment on above: Performed By: #### L CBC #### [facility] [address] [place] [address] MCV (RBC) [Entitic vol] 94.0 fL Normal 80.0-94.0 [facility] Comment on above: Performed By: #### L CBC #### [facility] [address] [place] [address] Platelet mean volume (Bld) [Entitic vol] 9.2 fL Normal 7.1-10.5 [facility] Comment on above: Performed By: #### L CBC #### [facility] [address] [place], [place] [address] Platelets (Bld) [#/Vol] 251 thou/cmm Normal 150-400 [facility] Comment on above: Performed By: #### L CBC #### [facility] [address] [place], [place] [address] RBC (Bld) [#/Vol] 5.18 mil/cmm Normal 4.60-6.20 [facility] Comment on above: Performed By: #### L CBC #### [facility] [address] [place], [place] [address] WBC (Bld) [#/Vol] 7.5 thou/cmm Normal 4.8-10.5 [facility] Comment on above: Performed By: #### L CBC #### [facility] [address] [place] [id number] MDRD eGFRon 12-09-2018 GFR/1.73 sq M predicted among non-blacks MDRD (S/P/Bld) [Vol rate/Area] mL/min/{1.73_m2} Normal >60mL/min/1.7 3m2 [facility] Comment on above: Result Comment: If t he patient is , multiply the result by 1.210. Performed By: #### L GFR #### [facility] [address] [place] [address] Protimeon 12-09-2018 INR Coag (PPP) [Relative time] 1.18 {INR} Normal 0.90-1.30 [facility] Comment on above: Result Comment: Nasrin min K Antagonist (VKA) Therapeutic Range: INR 2 to 3 (Target INR of 2.5) Note: For patients treated with VKA drugs, such as warfarin, the [place] [employer] 2012 Guideline recommends a therapeutic INR range of 2 to 3 (target INR of 2.5). This recommendation includes high-risk patients with antiphospholipid syndrome with previous arterial or venous thromboembolism, current-generation mechanical or bioprosthetic aortic heart valve replacement. Note: Patients with mechanical aortic valve replacement and additional risk factors for thromboembolic events (atrial fibrillation, previous thromboembolism, LV dysfunction, hypercoagulable conditions) or an older generation mechanical AVR (i.e., ball in-Cage) or any mechanical MVR should have a INR therapeutic range of 2.5 to 3.5 target INR of 3). Jg GH, et al. Chest 2012; 141:7S-47S Aundrea RA et al. JACC 2017; 70: 252-289 Performed By: #### L PT #### [facility] [address] [place] [address] PT Coag (PPP) [Time] 12.5 s Normal 9.7-13.0 [facility] Comment on above: Result Comment: . Performed By: #### L PT #### [place] [address] TSHon 12-09-2018 TSH Qn 11.05 uIU/mL High 0.34-4.82 [facility] Comment on above: Performed By: #### L TSH #### [facility] [address] [place], [place] [address] Troponin Ion 12-09-2018 Troponin I.cardiac [Mass/Vol] 0.04 ng/mL Normal <=0.07 [facility] Comment on above: Performed By: #### L TRP #### [facility] [address] [place], [place] [address] Echo Complete w/wo Contrasto n 05-01-2017 Echo Complete w/wo Contrast Patient Name: CHERYL DE LA FUENTE Ultrasound Exam Date/Time 05/01/2017 12:07:21 EST Exam Echo Complete w/wo Contrast Ordering Physician MD YEFRI., MELQUIADES COLIN Accession Number [id number] Reason For Exam bicuspid aortic valve Report TRANSTHORACIC ECHOCARDIOGRAM PATIENT: Cheryl De La Fuente STUDY DATE: 05/01/2017 : 1950 AGE: 66 HT/WT: 185.4 cm (73 86.2 kg in) (189.6 lb) GENDER: M BP: 156 / 110 LOCATION: [facility]IENT [facility] STATUS: *ORDERING PHYSICIAN: * Melquiades Mares MD, [facility] *RN: * Ching Del Angel RN *READING PHYSICIAN: * Melquiades Mares MD, [facility] *SLIP SHEETER: * Sue Benoit --- INDICATIONS: (Q23.1). --- CONCLUSIONS SUMMARY: 1. Left ventricle: Systolic function is normal by visual assessment. The estimated ejection fraction is 55%. 2. Right ventricle: Systolic function is normal. 3. Aortic valve: Not well visualized. A bicuspid morphology cannot be excluded; mildly thickened leaflets. There is no stenosis. There is trivial, less than 1+ regurgitation. --- STUDY DATA: Complete transthoracic echocardiogram. Procedure: Image quality was suboptimal. M-mode, complete 2D, complete spectral Doppler, and color flow Doppler images were acquired and archived for permanent storage and are available for subsequent review. Study status: Routine. Patient status: Outpatient. --- FINDINGS LEFT VENTRICLE: Not well visualized. The cavity size is normal. Wall thickness is mildly increased. There is mild concentric hypertrophy. Systolic function is normal by visual assessment. The estimated ejection fraction is 55%. Cardiac wall motion is otherwise normal. Regional wall motion abnormalities: Suspected hypokinesis of the basal inferior and mid inferolateral myocardium. RIGHT VENTRICLE: Well visualized. The cavity size is normal. Wall thickness is normal. Systolic function is normal. Right ventricular systolic pressure is within the normal range. VENTRICULAR SEPTUM: There is no evidence of a ventricular septal defect. LEFT ATRIUM: Not well visualized. The atrium is normal in size. RIGHT ATRIUM: Well visualized. The atrium is normal in size. ATRIAL SEPTUM: Color Doppler shows no evidence of shunt. Limited views available. MITRAL VALVE: Not well visualized. Mildly calcified annulus. Mildly thickened leaflets. Doppler: There is mild, 1+ regurgitation. AORTIC VALVE: Not well visualized. A bicuspid morphology cannot be excluded; mildly thickened leaflets. Doppler: There is no stenosis. There is trivial, less than 1+ regurgitation. Peak gradient (S): 8 mm Hg. Peak velocity (S): 1.4 m/sec. TRICUSPID VALVE: Not well visualized. Structurally normal valve. Doppler: There is mild, 1+ regurgitation. PULMONIC VALVE: Not well visualized. Structurally normal valve. Doppler: There is trivial, less than 1+ regurgitation. AORTA: The aorta is poorly visualized and normal. PULMONARY ARTERY: Main pulmonary artery: Normal. PERICARDIUM: There is no pericardial effusion. SYSTEMIC VEINS: Inferior vena cava: The vessel is normal. The IVC collapses by greater than 50% with inspiration. --- Measurements Left ventricle Value Reference LV ID, ED 4.7 cm 4.2 - 5.9 LV ID, ES 3.6 cm --------- LV PW thickness, ED (H) 1.3 cm 0.6 - 1.0 LV end-diastolic volume, 1-p A4C 128 ml 67 - 155 LV end-systolic volume, 1-p A4C 50 ml 22 - 58 LV end-diastolic volume, 2-p 126 ml 67 - 155 LV end-systolic volume, 2-p 53 ml 22 - 58 LV ejection fraction, 2-p 58 % >=55 LV E/e', lateral 8.7 --------- LV E/e', medial 14.8 --------- LV E/e', average 10.9 --------- Ventricular septum Value Reference IVS thickness, ED (H) 1.3 cm 0.6 - 1.0 LVOT Value Reference LVOT ID, A-P 2.6 cm --------- LVOT mean velocity, S 0.6 m/sec --------- LVOT VTI, S 18.2 cm --------- LVOT peak gradient, S 3 mm Hg --------- Stroke volume (SV), LVOT DP 93 ml --------- Stroke index (SV/bsa), LVOT DP 44 ml/m2 --------- Aortic valve Value Reference Aortic valve peak velocity, S 1.4 m/sec --------- Aortic peak gradient, S 8 mm Hg --------- Aortic regurg pressure half-time 662 ms --------- Aorta Value Reference Ascending aorta ID, A-P, S 3.5 cm --------- Left atrium Value Reference LA volume/bsa, ES, 2-p 24 ml/m2 --------- Mitral valve Value Reference Mitral E-wave peak velocity 0.6 m/sec --------- Mitral A-wave peak velocity 0.9 m/sec --------- Mitral deceleration time 363 ms --------- Mitral E/A ratio, peak 0.7 --------- Tricuspid valve Value Reference Tricuspid peak RV-RA gradient 27 mm Hg --------- Right atrium Value Reference RA area, ES, A4C 17 cm2 10 - 18 Right ventricle Value Reference RV ID, minor axis, ED, A4C base 2.4 cm 2.4 - 4.2 RV ID, minor axis, ED, A4C mid (H) 3.6 cm 2.0 - 3.5 TAPSE 2.5 cm --------- RV s', lateral, S 0.14 m/sec --------- Legend: (L) and (H) melquiades values outside specified reference range. Electronically signed by Melquiades Mares MD, FACC 05/01/2017 11:53 Final Dictated: 05/02/2017 9:26 am Dictating Physician: MD. MARES FACC, MARK A Signed Date and Time: 05/01/2017 11:53 am Signed by: MD. MARES FACC, MARK A [facility] Influenza virus A and B and SARS-CoV-2 (COVID-19) Ag panel - Upper respiratory specim SARS-CoV-2 (COVID-19) RNA LOGAN+probe Ql (Resp) [facility] Work Phone: Vital Signs Date Time Vital Sign Value Performing Clinician Facility 10-04-2024 17:33-0400 Body temperature 37.0 degrees Celsius [facility] Comment on above: Performed By: #### [id number] ####ANNETTE Castle ([id number])[facility] ([facility])[address] [place] [address] 10-04-2024 17:33-0400 SaO2% (BldA) [Mass fraction] 94 % [facility] Comment on above: Performed By: #### [id number] ####ANNETTE Castle ([id number])[facility] ([facility])[address] [place] [address] 10-03-2024 00:13-0400 Body temperature 37.0 degrees Celsius [facility] Comment on above: Performed By: #### [id number] ####ANNETTE Castle ([id number])[facility] ([facility])[address] [place], [place] [id number] 10-03-2024 00:13-0400 SaO2% (BldA) [Mass fraction] 100 % [facility] Comment on above: Performed By: #### [id number] ####ANNETTE Castle ([id number])[facility] ([facility])[address] [place], [place] [id number] 10-02-2024 14:54-0400 Body temperature 37.0 degrees Celsius [facility] Comment on above: Performed By: #### [id number] ####ANNETTE Castle ([id number])[facility] ([facility])[address] [place] [address] [id number] 10-02-2024 14:54-0400 SaO2% (BldA) [Mass fraction] 99 % [facility] Comment on above: Performed By: #### [id number] ####ANNETTE Castle ([id number])[facility] ([facility])[address] [place] [address] 50184 10-02-2024 12:45-0400 Body temperature 37.0 degrees Celsius [facility] Comment on above: Performed By: #### [id number] ####ANNETTE Castle ([id number])[facility] ([facility])[address] [place] [address] 53329 10-02-2024 12:45-0400 SaO2% (BldA) [Mass fraction] 97 % [facility] Comment on above: Performed By: #### [id number] ####ANNTETE Castle ([id number])[facility] ([facility])[address] [place], [place] [id number] 10-01-2024 12:13-0400 Body temperature 37.0 degrees Celsius [facility] Comment on above: Performed By: #### [id number] ####ANNETTE Castle ([id number])[facility] ([facility])[address] [place] [address] 84523 10-01-2024 12:13-0400 SaO2% (BldA) [Mass fraction] 98 % [facility] Comment on above: Performed By: #### [id number] ####ANNETTE Castle ([id number])[facility] ([facility])[address] [place] [address] 68734 10-01-2024 00:48-0400 Body temperature 37.0 degrees Celsius [facility] Comment on above: Performed By: #### [id number] ####ANNETTE Castle ([id number])[facility] ([facility])[address] [place] [address] 42037 10-01-2024 00:48-0400 SaO2% (BldA) [Mass fraction] 98 % [facility] Comment on above: Performed By: #### [id number] ####ANNETTE Castle ([id number])[facility] ([facility])[address] [place] [address] 09-30-2024 18:18-0400 Body temperature 37.0 degrees Celsius [facility] Comment on above: Performed By: #### [id number] ####ANNETTE Castle ([id number])[facility] ([facility])[address] [place] [address] 09-30-2024 18:18-0400 SaO2% (BldA) [Mass fraction] 98 % [facility] Comment on above: Performed By: #### [id number] ####ANNETTE Castle ([id number])[facility] ([facility])[address] [place] [address] 09-29-2024 23:21-0400 Body temperature 37.0 degrees Celsius [facility] Comment on above: Performed By: #### [id number] ####ANNETTE Castle ([id number])[facility] ([facility])[address] [place] [address] 09-29-2024 23:21-0400 SaO2% (BldA) [Mass fraction] 99 % [facility] Comment on above: Performed By: #### [id number] ####ANNETTE Castle ([id number])[facility] ([facility])[address] [place], [place] [id number] 09-29-2024 20:55-0400 Body temperature 37.0 degrees Celsius [facility] Comment on above: Performed By: #### [id number] ####ANNETTE Castle ([id number])[facility] ([facility])[address] [place], [place] [id number] 09-29-2024 20:55-0400 SaO2% (BldA) [Mass fraction] 100 % [facility] Comment on above: Performed By: #### [id number] ####ANNETTE Castle ([id number])[facility] ([facility])[address] [place] [address] 09-29-2024 13:20-0400 Body temperature 37.0 degrees Celsius [facility] Comment on above: Performed By: #### [id number] ####ANNETTE Castle ([id number])[facility] ([facility])[address] [place] [address] 09-29-2024 13:20-0400 SaO2% (BldA) [Mass fraction] 100 % [facility] Comment on above: Performed By: #### [id number] ####ANNETTE Castle ([id number])[facility] ([facility])[address] [place] [address] 09-29-2024 07:48-0400 Body temperature 37.0 degrees Celsius [facility] Comment on above: Performed By: #### [id number] ####ANNETTE Castle ([id number])[facility] ([facility])[address] [place] [address] 09-29-2024 07:48-0400 SaO2% (BldA) [Mass fraction] 96 % [facility] Comment on above: Performed By: #### [id number] ####ANNETTE Castle ([id number])[facility] ([facility])[address] [place], [place] [id number] 09-29-2024 06:28-0400 Body temperature 37.0 degrees Celus [facility] Comment on above: Performed By: #### [id number] ####ANNETTE Castle ([id number])[facility] ([facility])[address] [place], [place] [id number] 09-29-2024 06:28-0400 SaO2% (BldA) [Mass fraction] 100 % [facility] Comment on above: Performed By: #### [id number] ####ANNETTE Castle ([id number])[facility] ([facility])[address] [place] [address] 09-29-2024 05:57-0400 Body temperature 37.0 degrees Celsius [facility] Comment on above: Performed By: #### [id number] ####ANNETTE Castle ([id number])[facility] ([facility])[address] [place] [address] 09-29-2024 05:57-0400 SaO2% (BldA) [Mass fraction] 97 % [facility] Comment on above: Performed By: #### 24661-8 ####ANNETTE Castle ([id number])[facility] ([facility])[address] [place] [address] 09-29-2024 00:51-0400 Body temperature 37.0 degrees Celsius [facility] Comment on above: Performed By: #### [id number] ####ANNETTE Castle ([id number])[facility] ([facility])[address] [place] [address] 09-29-2024 00:51-0400 SaO2% (BldA) [Mass fraction] 96 % [facility] Comment on above: Performed By: #### [id number] ####ANNETTE Castle ([id number])[facility] ([facility])[address] [place] [address] 09-27-2024 12:53-0400 Body temperature 37.0 degrees Celsius [facility] Comment on above: Performed By: #### 24356-0 ####ANNETTE Castle ([id number])[facility] ([facility])[address] [place] [address] 09-27-2024 12:53-0400 SaO2% (BldA) [Mass fraction] 96 % [facility] Comment on above: Performed By: #### [id number] ####ANENTTE Castle ([id number])[facility] ([facility])[address] [place] [address] 09-27-2024 08:42-0400 Body temperature 37.0 degrees Celsius [facility] Comment on above: Performed By: #### [id number] ####ANNETTE Castle ([id number])[facility] ([facility])[address] [place] [address] 09-27-2024 08:42-0400 SaO2% (BldA) [Mass fraction] 99 % [facility] Comment on above: Performed By: #### [id number] ####ANNETTE Castle ([id number])[facility] ([facility])[address] [place] [address] 09-27-2024 07:34-0400 Body temperature 37.0 degrees Celsius [facility] Comment on above: Performed By: #### [id number] ####ANNETTE Castle ([id number])[facility] ([facility])[address] [place] [address] 09-27-2024 07:34-0400 SaO2% (BldA) [Mass fraction] 99 % [facility] Comment on above: Performed By: #### [id number] ####ANNETTE Castle ([id number])[facility] ([facility])[address] [place] [address] 09-27-2024 05:33-0400 Body temperature 37.0 degrees Celsius [facility] Comment on above: Result Comment: NOTE: Patient Results ar e Not Corrected for Temperature Performed By: #### 9 [id number] ####ANNETTE Castle ([id number])[facility] ([facility])[address] [place] [id number] 09-27-2024 05:33-0400 SaO2% (BldA) [Mass fraction] 100 % [facility] Comment on above: Performed By: #### 14144-4 ####ANNETTE Castle ([id number])[facility] ([facility])[address] [place] [id number] 09-27-2024 03:07-0400 Diastolic blood pressure 75 mm[Hg] Marcio Ahn MD Work Phone: [facility] 09-27-2024 03:07-0400 Heart rate 85 /min Marcio Ahn MD Work Phone: [facility] 09-27-2024 03:07-0400 Respiratory rate 16 /min Marcio Ahn MD Work Phone: [facility] 09-27-2024 03:07-0400 Systolic blood pressure 93 mm[Hg] Marcio Ahn MD Work Phone: [facility] 09-27-2024 03:00-0400 SaO2% (BldA) [Mass fraction] 98 % Marcio Ahn MD Work Phone: [facility] 09-26-2024 23:17-0400 Body height 188 cm Marcio Ahn MD Work Phone: [facility] 09-26-2024 23:17-0400 Body mass index (BMI) [Ratio] 25.04 kg/m2 Marcio Ahn MD Work Phone: [facility] 09-26-2024 23:17-0400 Body temperature 98.8 [degF] Marcio Ahn MD Work Phone: [facility] 09-26-2024 23:17-0400 Body weight 88.45 kg Marcio Ahn MD Work Phone: [facility] 07-14-2024 08:29-0400 Body mass index (BMI) [Ratio] 23.7 kg/m2 Dr. Ashlee Lanier MD Work Phone: [facility] 07-14-2024 08:29-0400 Body temperature 96.7 [degF] Dr. Ashlee Lanier MD Work Phone: [facility] 07-14-2024 08:29-0400 Body weight 81.[address] Ashlee Lanier MD Work Phone: [facility] 07-14-2024 08:29-0400 Diastolic blood pressure 62 mm[Hg] Dr. Ashlee Lanier MD Work Phone: [facility] 07-14-2024 08:29-0400 Heart rate 85 /min Dr. Ashlee Lanier MD Work Phone: [facility] 07-14-2024 08:29-0400 Respiratory rate 16 /min Dr. Ashlee Lanier MD Work Phone: [facility] 07-14-2024 08:29-0400 SaO2% (BldA) [Mass fraction] 99 % Dr. Ashlee Lanier MD Work Phone: [facility] 07-14-2024 08:29-0400 Systolic blood pressure 96 mm[Hg] Dr. Ashlee Lanier MD Work Phone: [facility] 04-12-2024 13:35-0500 Body height 185.[address] Ashlee Lanier MD Work Phone: [facility] 04-12-2024 13:35-0500 Body mass index (BMI) [Ratio] 24.4 kg/m2 Dr. Ashlee Lanier MD Work Phone: [facility] 04-12-2024 13:35-0500 Body temperature 97.8 [degF] Dr. Ashlee Lanier MD Work Phone: [facility] 04-12-2024 13:35-0500 Body weight 83.[address] Ashlee Lanier MD Work Phone: [facility] 04-12-2024 13:35-0500 Diastolic blood pressure 78 mm[Hg] Dr. Ashlee Lanier MD Work Phone: [facility] 04-12-2024 13:35-0500 Heart rate 80 /min Dr. Ashlee Lanier MD Work Phone: [facility] 04-12-2024 13:35-0500 Respiratory rate 16 /min Dr. Ashlee Lanier MD Work Phone: [facility] 04-12-2024 13:35-0500 SaO2% (BldA) [Mass fraction] 95 % Dr. Ashlee Lanier MD Work Phone: [facility] 04-12-2024 13:35-0500 Systolic blood pressure 121 mm[Hg] Dr. Ashlee Lanier MD Work Phone: [facility] 04-03-2024 14:24-0500 Body height 185.1 cm Viktoria Rivera [employer] Work Phone: [phone] [place] [address] 04-03-2024 14:24-0500 Body mass index (BMI) [Ratio] 29.79 kg/m2 Viktoria Rivera [employer] Work Phone: 1(780)865-9632[address] 04-03-2024 14:24-0500 Body temperature 97.59 [degF] Viktoria Rivera [employer] Work Phone: [facility] 04-03-2024 14:24-0500 Body weight 102.06 kg Viktoria Rivera [employer] Work Phone: [facility] 04-03-2024 14:24-0500 Diastolic blood pressure 68 mm[Hg] Viktoria Rivera [employer] Work Phone: [facility] 04-03-2024 14:24-0500 Heart rate 108 /min Viktoria Justiceta [employer] Work Phone: [facility] 04-03-2024 14:24-0500 Respiratory rate 14 /min Viktoria Thacker [employer] Work Phone: [facility] 04-03-2024 14:24-0500 SaO2% (BldA) [Mass fraction] 83 % Viktoria Thacker [employer] Work Phone: [facility] 04-03-2024 14:24-0500 Systolic blood pressure 108 mm[Hg] Viktoria Thacker [employer] Work Phone: [facility] 03-16-2024 07:53-0500 Body mass index (BMI) [Ratio] 23.7 kg/m2 Dr. Ashlee Lanier MD Work Phone: [facility] 03-16-2024 07:53-0500 Body temperature 97.2 [degF] Dr. Ashlee Lanier MD Work Phone: [facility] 03-16-2024 07:53-0500 Body weight 81.[address] Ashlee Lanier MD Work Phone: [facility] 03-16-2024 07:53-0500 Diastolic blood pressure 73 mm[Hg] Dr. Ashlee Lanier MD Work Phone: [facility] 03-16-2024 07:53-0500 Heart rate 71 /min Dr. Ashlee Lanier MD Work Phone: [facility] 03-16-2024 07:53-0500 Respiratory rate 20 /min Dr. Ashlee Lanier MD Work Phone: [facility] 03-16-2024 07:53-0500 SaO2% (BldA) [Mass fraction] 98 % Dr. Ashlee Lanier MD Work Phone: [facility] 03-16-2024 07:53-0500 Systolic blood pressure 109 mm[Hg] Dr. Ashlee Lanier MD Work Phone: [facility] 03-05-2024 10:23-0500 Body height 182.9 cm Idania Fraire DO Work Phone: [facility] 03-05-2024 10:23-0500 Body mass index (BMI) [Ratio] 24.68 kg/m2 Idania Fraire DO Work Phone: [facility] 03-05-2024 10:23-0500 Body weight 82.56 kg Idania Fraire DO Work Phone: [facility] 03-05-2024 10:23-0500 Diastolic blood pressure 66 mm[Hg] Idania Fraire DO Work Phone: [facility] 03-05-2024 10:23-0500 Heart rate 73 /min Idania Fraire DO Work Phone: [facility] 03-05-2024 10:23-0500 SaO2% (BldA) [Mass fraction] 95 % Idania Fraire DO Work Phone: [facility] 03-05-2024 10:23-0500 Systolic blood pressure 110 mm[Hg] Idania Fraire DO Work Phone: [facility] 11-17-2023 16:58-0400 Body height 185.4 cm Quincy Abebe [employer] Work Phone: [facility] 11-17-2023 16:58-0400 Body mass index (BMI) [Ratio] 29.69 kg/m2 Quincy Abebe [employer] Work Phone: [facility] 11-17-2023 16:58-0400 Body temperature 97.5 [degF] Quincy Talleyenicynthia [employer] Work Phone: [facility] 11-17-2023 16:58-0400 Body weight 102.06 kg Quincy Talleyenicynthia [employer] Work Phone: [facility] 11-17-2023 16:58-0400 Diastolic blood pressure 85 mm[Hg] Quincy Talleyenicynthia [employer] Work Phone: [facility] 11-17-2023 16:58-0400 Heart rate 70 /min Quincy Abebe [employer] Work Phone: [facility] 11-17-2023 16:58-0400 Respiratory rate 20 /min Quincy Abebe [employer] Work Phone: [facility] 11-17-2023 16:58-0400 SaO2% (BldA) [Mass fraction] 98 % Quincy Abebe [employer] Work Phone: [facility] 11-17-2023 16:58-0400 Systolic blood pressure 119 mm[Hg] Quincy Abebe [employer] Work Phone: [facility] 09-02-2023 11:45-0400 Body height 182.9 cm Idania Fraire DO Work Phone: [facility] 09-02-2023 11:45-0400 Body mass index (BMI) [Ratio] 24.25 kg/m2 Idania Fraire DO Work Phone: [facility] 09-02-2023 11:45-0400 Body weight 81.1 kg Idania Fraire DO Work Phone: [facility] 09-02-2023 11:45-0400 Diastolic blood pressure 68 mm[Hg] Idania Fraire DO Work Phone: [facility] 09-02-2023 11:45-0400 Heart rate 71 /min Idania Fraire DO Work Phone: [facility] 09-02-2023 11:45-0400 SaO2% (BldA) [Mass fraction] 99 % Idania Fraire DO Work Phone: [facility] 09-02-2023 11:45-0400 Systolic blood pressure 102 mm[Hg] Idania Fraire DO Work Phone: [facility] 04-16-2023 07:48-0500 Body height 185.[address] Ashlee Lanier Work Phone: [facility] 04-16-2023 07:48-0500 Body mass index (BMI) [Ratio] 25 kg/m2 Dr. Ashlee Lanier Work Phone: [facility] 04-16-2023 07:48-0500 Body temperature 98 [degF] Dr. Ashlee Lanier Work Phone: [facility] 04-16-2023 07:48-0500 Body weight 85.[address] Ashlee Lanier Work Phone: [facility] 04-16-2023 07:48-0500 Diastolic blood pressure 75 mm[Hg] Dr. Ashlee Lanier Work Phone: [facility] 04-16-2023 07:48-0500 Heart rate 81 /min Dr. Ashlee Lanier Work Phone: [facility] 04-16-2023 07:48-0500 Respiratory rate 18 /min Dr. Ashlee Lanier Work Phone: [facility] 04-16-2023 07:48-0500 SaO2% (BldA) [Mass fraction] 98 % Dr. Ashlee Lanier Work Phone: [facility] 04-16-2023 07:48-0500 Systolic blood pressure 111 mm[Hg] Dr. Ashlee Lanier Work Phone: [facility] 04-14-2023 08:06-0500 Body mass index (BMI) [Ratio] 25.1 kg/m2 Dr. Ashlee Lanier Work Phone: [facility] 04-14-2023 08:06-0500 Body temperature 97.8 [degF] Dr. Ashlee Lanier Work Phone: [facility] 04-14-2023 08:06-0500 Body weight 86.[address] Ashlee Lanier Work Phone: [facility] 04-14-2023 08:06-0500 Diastolic blood pressure 61 mm[Hg] Dr. Ashlee Lanier Work Phone: [facility] 04-14-2023 08:06-0500 Heart rate 79 /min Dr. Ashlee Lanier Work Phone: [facility] 04-14-2023 08:06-0500 Respiratory rate 16 /min Dr. Ashlee Lanier Work Phone: [facility] 04-14-2023 08:06-0500 SaO2% (BldA) [Mass fraction] 92 % Dr. Ashlee Lanier Work Phone: [facility] 04-14-2023 08:06-0500 Systolic blood pressure 100 mm[Hg] Dr. Ashlee Lanier Work Phone: [facility] 03-21-2023 14:06-0500 SaO2% (BldA) [Mass fraction] 95 % Quinn Camarillo DO Work Phone: [facility] 03-21-2023 07:00-0500 Body temperature 97.7 [degF] Quinn Camarillo DO Work Phone: [facility] 03-21-2023 07:00-0500 Diastolic blood pressure 61 mm[Hg] Quinn Camarillo DO Work Phone: [facility] 03-21-2023 07:00-0500 Heart rate 80 /min Quinn Camarillo DO Work Phone: [facility] 03-21-2023 07:00-0500 Respiratory rate 20 /min Quinn Camarillo DO Work Phone: [facility] 03-21-2023 07:00-0500 Systolic blood pressure 97 mm[Hg] Quinn Camarillo DO Work Phone: [facility] 03-20-2023 06:28-0500 Body mass index (BMI) [Ratio] 26.56 kg/m2 Quinn Camarillo DO Work Phone: [facility] 03-20-2023 06:28-0500 Body weight 91.3 kg Quinn Camarillo DO Work Phone: [facility] 03-18-2023 06:31-0500 Body height 185.4 cm Quinn Camarillo DO Work Phone: [facility] 03-10-2023 17:33-0500 Body height 185.4 cm Quincy Abebe [employer] Work Phone: [facility] 03-10-2023 17:33-0500 Body mass index (BMI) [Ratio] 26.12 kg/m2 Quincy Abebe [employer] Work Phone: [facility] 03-10-2023 17:33-0500 Body temperature 97.39 [degF] Quincy Abebe [employer] Work Phone: [facility] 03-10-2023 17:33-0500 Body weight 89.81 kg Quincy Abebe [employer] Work Phone: [facility] 03-10-2023 17:33-0500 Diastolic blood pressure 74 mm[Hg] Quincy Abebe [employer] Work Phone: [facility] 03-10-2023 17:33-0500 Heart rate 95 /min Quincy Abebe [employer] Work Phone: [facility] 03-10-2023 17:33-0500 Respiratory rate 14 /min Quincy Abebe [employer] Work Phone: [facility] 03-10-2023 17:33-0500 SaO2% (BldA) [Mass fraction] 96 % Quincy Abebe [employer] Work Phone: [facility] 03-10-2023 17:33-0500 Systolic blood pressure 103 mm[Hg] Quincy Abebe [employer] Work Phone: [facility] 06-06-2022 09:41-0400 Body weight 91.63 kg Viktoria Calix [employer] Work Phone: [facility] 06-06-2022 09:41-0400 Diastolic blood pressure 95 mm[Hg] Viktoria Aurin [employer] Work Phone: [facility] 06-06-2022 09:41-0400 Heart rate 65 /min Viktoria Aurin [employer] Work Phone: [facility] 06-06-2022 09:41-0400 SaO2% (BldA) [Mass fraction] 99 % Viktoria Aurin [employer] Work Phone: [facility] 06-06-2022 09:41-0400 Systolic blood pressure 157 mm[Hg] Viktoria Aurin [employer] Work Phone: [facility] 03-29-2022 08:07-0500 Diastolic blood pressure 83 mm[Hg] Mark Philip MD Work Phone: [facility] 03-29-2022 08:07-0500 Heart rate 72 /min Mark Philip MD Work Phone: [facility] 03-29-2022 08:07-0500 SaO2% (BldA) [Mass fraction] 98 % Mark Philip MD Work Phone: [facility] 03-29-2022 08:07-0500 Systolic blood pressure 140 mm[Hg] Mark Philip MD Work Phone: [facility] 02-11-2022 18:53-0500 SaO2% (BldA) [Mass fraction] 95 % Dr. Ashlee Lanier Work Phone: [facility] Work Phone: 02-11-2022 17:49-0500 Heart rate 70 /min Dr. Ashlee Lanier Work Phone: [facility] Work Phone: 02-11-2022 17:49-0500 Respiratory rate 16 /min Dr. Ashlee Lanier Work Phone: [facility] Work Phone: 02-11-2022 13:50-0500 Body height 185.[address] Ashlee Lanier Work Phone: [facility] Work Phone: 02-11-2022 13:50-0500 Body mass index (BMI) [Ratio] 26.4 kg/m2 Dr. Ashlee Lanier Work Phone: [facility] Work Phone: 02-11-2022 13:50-0500 Body temperature 98 [degF] Dr. Ashlee Lanier Work Phone: [facility] Work Phone: 02-11-2022 13:50-0500 Body weight 90.[address] Ashlee Lanier Work Phone: [facility] Work Phone: 02-11-2022 13:50-0500 Diastolic blood pressure 101 mm[Hg] Dr. Ashlee Lanier Work Phone: [facility] Work Phone: 02-11-2022 13:50-0500 Systolic blood pressure 148 mm[Hg] Dr. Ashlee Lanier Work Phone: [facility] Work Phone: 11-21-2021 10:05-0400 Body mass index (BMI) [Ratio] 25.9 kg/m2 Dr. Ashlee Lanier Work Phone: [facility] Work Phone: 11-21-2021 10:05-0400 Body temperature 98 [degF] Dr. Ashlee Lanier Work Phone: [facility] Work Phone: 11-21-2021 10:05-0400 Body weight 89.[address] Ashlee Lanier Work Phone: [facility] Work Phone: 11-21-2021 10:05-0400 Diastolic blood pressure 94 mm[Hg] Dr. Ashlee Lanier Work Phone: [facility] Work Phone: 11-21-2021 10:05-0400 Heart rate 59 /min Dr. Ashlee Lanier Work Phone: [facility] Work Phone: 11-21-2021 10:05-0400 Respiratory rate 18 /min Dr. Ashlee Lanier Work Phone: [facility] Work Phone: 11-21-2021 10:05-0400 SaO2% (BldA) [Mass fraction] 94 % Dr. Ashlee Lanier Work Phone: [facility] Work Phone: 11-21-2021 10:05-0400 Systolic blood pressure 158 mm[Hg] Dr. Ashlee Lanier Work Phone: [facility] Work Phone: 08-24-2021 08:55-0400 Body height 185.[address] Ashlee Lanier Work Phone: [facility] Work Phone: 08-24-2021 08:55-0400 Body mass index (BMI) [Ratio] 25.6 kg/m2 Dr. Ashlee Lanier Work Phone: [facility] Work Phone: 08-24-2021 08:55-0400 Body temperature 97.1 [degF] Dr. Ashlee Lanier Work Phone: [facility] Work Phone: 08-24-2021 08:55-0400 Body weight 88.[address] Ashlee Lanier Work Phone: [facility] Work Phone: 08-24-2021 08:55-0400 Diastolic blood pressure 97 mm[Hg] Dr. Ashlee Lanier Work Phone: [facility] Work Phone: 08-24-2021 08:55-0400 Heart rate 64 /min Dr. Ashlee Lanier Work Phone: [facility] Work Phone: 08-24-2021 08:55-0400 Respiratory rate 18 /min Dr. Ashlee Lanier Work Phone: [facility] Work Phone: 08-24-2021 08:55-0400 SaO2% (BldA) [Mass fraction] 98 % Dr. Ashlee Lanier Work Phone: [facility] Work Phone: 08-24-2021 08:55-0400 Systolic blood pressure 149 mm[Hg] Dr. Ashlee Lanier Work Phone: [facility] Work Phone: 05-22-2021 13:18-0400 Body mass index (BMI) [Ratio] 25.8 kg/m2 Dr. Ashlee Lanier Work Phone: [facility] Work Phone: 05-22-2021 13:18-0400 Body temperature 97.6 [degF] Dr. Ashlee Lanier Work Phone: [facility] Work Phone: 05-22-2021 13:18-0400 Body weight 88.[address] Ashlee Lanier Work Phone: [facility] Work Phone: 05-22-2021 13:18-0400 Diastolic blood pressure 90 mm[Hg] Dr. Ashlee Lanier Work Phone: [facility] Work Phone: 05-22-2021 13:18-0400 Heart rate 68 /min Dr. Ashlee Lanier Work Phone: [facility] Work Phone: 05-22-2021 13:18-0400 Respiratory rate 16 /min Dr. Ashlee Lanier Work Phone: [facility] Work Phone: 05-22-2021 13:18-0400 SaO2% (BldA) [Mass fraction] 93 % Dr. Ashlee Lanier Work Phone: [facility] Work Phone: 05-22-2021 13:18-0400 Systolic blood pressure 141 mm[Hg] Dr. 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 Ashlee Lanier MD Work Phone: [facility] Work Phone: Start: 06-24-2024 End: 06-24-[address] Ashlee Lanier MD -Laboratory Work Phone: Start: 06-24-2024 End: 06-24-[address] Ashlee Lanier MD Work Phone: [facility] Work Phone: Start: 04-12-2024 End: 04-12-[address] Ashlee Lanier MD -[facility] Work Phone: Start: 04-12-2024 End: 04-12-2024 ambulatory Ashleescout Lanier Facility:[facility] Start: 04-03-2024 End: 04-03-2024 Patient encounter procedure Viktoria Andrew Rivera WOOD CUTTER-PIPE BENDER Work Phone: [facility] Comment on above: Acute bronchitis, un specified organism (Primary Dx) Start: 04-03-2024 End: 04-03-2024 [facility] Start: 03-31-2024 End: 03-31-2024 Patient encounter procedure Jyothi HERNANDEZ -Cat Scan, [facility] Work Phone: Start: 03-31-2024 End: 03-31-2024 ambulatory Ashleescout Lanier Facility:[facility] Start: 03-16-2024 End: 03-16-2024 Patient encounter procedure Jyothi HERNANDEZ -[facility] Work Phone: Start: 03-16-2024 End: 03-16-2024 [facility] Start: 03-05-2024 End: 03-05-2024 ambulatory ASHLEE LANIER Facility:[facility] Start: 03-05-2024 End: 03-05-2024 Patient encounter procedure Idania Fraire DO Work Phone: Cardiology Comment on above: 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 (Primary Dx); Paroxysmal atrial fibrillation (HCC); Chronic diastolic CHF (congestive heart failure) (HCC); Primary hypertension; Mixed hyperlipidemia; Presence of drug coated stent in left circumflex coronary artery; 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; Nonrheumatic aortic valve stenosis; Ascending aorta dilatation (HCC) Start: 11-27-2023 End: 11-27-2023 ambulatory [facility] Facility:[facility] Start: 11-17-2023 End: 11-17-2023 Patient encounter procedure Quincy Abebe WOOD CUTTER-PIPE BENDER Work Phone: [facility] Comment on above: COPD with exacerbati on (Multi) (Primary Dx); Acute upper respiratory infection Start: 11-17-2023 End: 11-17-2023 [facility] Start: 09-02-2023 Telephone encounter Idania Fraire DO Work Phone: Cardiology Comment on above: Appointment (6 mo f/ u) Start: 09-02-2023 End: 09-02-2023 ambulatory IDANIA FRAIRE Facility:[facility] Start: 09-02-2023 End: 09-02-2023 Patient encounter procedure Idania Fraire DO Work Phone: Cardiology Comment on above: Chronic diastolic co ngestive heart failure (HCC) (Primary Dx); 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 Ashlee Lanier Work Phone: [facility] Work Phone: Start: 04-16-2023 End: 04-16-[address] Ashlee Lanier Work Phone: [facility] Work Phone: Start: 04-16-2023 End: 04-16-[address] Ashlee Lanier Work Phone: [facility] [place] Work Phone: Start: 04-14-2023 End: 04-14-[address] Ashlee Lanier Work Phone: [facility] Work Phone: Start: 03-17-2023 End: 03-21-2023 Evaluation and management of inpatient Quinn Camarillo DO Work Phone: [facility] Comment on above: COPD (chronic obstru ctive pulmonary disease) (CMS/HCC) (Primary Dx); Shock circulatory (CMS/HCC); Septic shock (CMS/HCC); Cellulitis of right lower extremity; Other specified peripheral vascular diseases (CMS/HCC); Peripheral vascular disease, unspecified (CMS/HCC); Difficulty walking Start: 03-17-2023 Critical care ill/in jured patient init 30-74 min Quinn Camarillo DO Work Phone: [facility] Work Phone: Start: 03-10-2023 End: 03-10-2023 Patient encounter procedure Quincy Abebe APRN-PIPE BENDER Work Phone: [facility] Comment on above: Acute bronchitis, un specified organism (Primary Dx); Cellulitis of left upper extremity Start: 03-04-2023 End: 03-04-2023 ambulatory ASHLEE LANIER Facility:[facility] Start: 03-04-2023 End: 03-04-2023 ambulatory IDANIA FRAIRE Facility:[facility] Start: 01-17-2023 Refill Viktoria Calix WOOD CUTTER.PIPE BENDER Work Phone: Cardiology Start: 06-06-2022 End: 06-06-2022 Patient encounter procedure Viktoria Calix WOOD CUTTER.PIPE BENDER Work Phone: Cardiology Comment on above: Diastolic congestive heart failure, unspecified HF chronicity (HCC) (Primary Dx); Paroxysmal atrial fibrillation (HCC); 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; Primary hypertension; Pure hypercholesterolemia Start: 04-29-2022 Telephone encounter Janel Wref ord WOOD CUTTER.PIPE BENDER Work Phone: Cardiology Comment on above: Appointment Start: 04-17-2022 Telephone encounter Mark Philip MD Work Phone: [facility] Comment on above: Patient Question Start: 04-08-2022 Telephone encounter Mark Philip MD Work Phone: [facility] [place] Comment on above: Results Start: 03-29-2022 End: 03-29-2022 Orders Only Mark Philip MD Work Phone: Cardiology Comment on above: Systolic congestive heart failure, unspecified HF chronicity (HCC) (Primary Dx) Dyspnea on exertion [R06.09] Start: 03-11-2022 Telephone encounter Mark Philip MD Work Phone: [place] [facility] Comment on above: Preparations For Pro cedures Start: 03-11-2022 End: 03-11-2022 Patient encounter procedure Mark Philip MD Work Phone: Cardiology Comment on above: Paroxysmal atrial fi brillation (HCC) (Primary Dx); Primary hypertension; SOB (shortness of breath); Diastolic congestive heart failure, unspecified HF chronicity (HCC); NSTEMI (non-ST elevated myocardial infarction) (HCC); Pure hypercholesterolemia; 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 Ashlee Lanier Work Phone: [facility] Start: 11-21-2021 End: 11-21-[address] Ashlee Lanier Work Phone: [facility] Start: 08-24-2021 End: 08-24-[address] Ashlee Lanier Work Phone: [facility] Start: 05-22-2021 End: 05-22-[address] Ashlee Lanier Work Phone: [facility] Start: 03-17-2021 End: 03-17-2021 Emergency department patient visit Viktoria Thacker [facility] Start: 06-23-2018 End: 06-23-2018 Patient encounter procedure Sarabjit Oliveira Facility:[facility] Start: 05-11-2018 End: 05-11-2018 [facility] Start: 05-05-2018 End: 05-05-2018 [facility] Start: 04-07-2018 End: 04-07-2018 [facility] Start: 08-21-2017 End: 08-22-2017 Patient encounter procedure [facility]it Oliveira [facility] Start: 08-12-2017 End: 08-13-2017 Patient encounter procedure Sarabjit Oliveira Facility:[facility] Start: 05-01-2017 Ambulatory MELQUIADES A ILER [facility] Procedures Date Procedure Procedure Detail Performing Clinician Start: 09-27-2024 VERAB/VERIFY ABORH Marcio Ahn MD Work Phone: Start: 09-27-2024 End: 09-27-2024 Assay of lactate Marcio Ahn MD Work Phone: Start: 09-27-2024 Blood typing serolog ic rh (d) Marcio Ahn MD Work Phone: Start: 09-27-2024 Ct abdomen & pelvis w/contrast material Marcio Ahn MD Work Phone: Start: 09-27-2024 Ct angiography chest w/contrast/noncontrast Marcio Ahn MD Work Phone: Start: 09-27-2024 Urinalysis microscop ic panel - Urine Qualitative by Automated Marcio Ahn MD Work Phone: Start: 09-27-2024 Urnls dip stick/tabl et reagent auto microscopy Marcio Ahn MD Work Phone: Start: 09-26-2024 Comprehensive metabo lic panel Marcio Ahn MD Work Phone: Start: 09-26-2024 Troponin I.cardiac p luz - Serum or Plasma by High sensitivity method Marcio Ahn MD Work Phone: Start: 09-26-2024 Radiologic exam ches t single view Marcio Ahn MD Work Phone: Start: 06-24-2024 Prostate specific an tigen measurement Dr. Ashlee Lanier MD Work Phone: Comment on above: This test was perfor med using the [employer] tPSA method. Measured values of a patient sample can vary depending on the testing procedure used. PSA values determined on patient samples by different testing procedures cannot be used interchangeably. If there is a change in PSA assays while monitoring therapy, sequential testing should be performed to confirm baseline values. Start: 06-24-2024 Vitamin D, 25-hydrox y measurement Dr. Ashlee Lanier MD Work Phone: Comment on above: Vitamin D StatusDefi ciency: <20 ng/mL (50nmol/L)Insufficiency: 20-30 ng/mL (50-75 nmol/L)Sufficiency: 30-100 ng/mL (75-250 nmol/L)Toxicity: >100 ng/mL (>250 nmol/L) Start: 03-31-2024 CT of chest without contrast Dr. Ashlee Lanier MD Work Phone: Start: 11-17-2023 POCT SARS-COV-2/FLU/ RSV PCR SYMPTOMATIC Quincy Abebe WOOD CUTTER-PIPE BENDER Work Phone: Start: 03-21-2023 Basic metabolic pane l calcium total Kelvin Garcias MD Work Phone: Start: 03-20-2023 Basic metabolic pane l calcium total Palomo Farnsworth MD Work Phone: Start: 03-20-2023 Drug screen quantita tive vancomycin Palomo Farnsworth MD Work Phone: Start: 03-19-2023 Non-invasive physiol ogic study extremity 3 levls Palomo Farnsworth MD Work Phone: Start: 03-19-2023 Radex hand minimum 3 views Nicole Reaves MD Work Phone: Start: 03-19-2023 Comprehensive metabo lic panel Palomo Farnsworth MD Work Phone: Start: 03-19-2023 Drug screen quantita tive vancomycin Mihai Barreto DO Work Phone: Start: 03-18-2023 Radiologic examinati on tibia & fibula 2 views Libertad Berkowitz DPM Work Phone: Start: 03-18-2023 Ct lower extremity w/contrast material Palomo Farnsworth MD Work Phone: Start: 03-18-2023 Cul bact xcpt urine blood/stool aerobic isol Palomo Farnsworth MD Work Phone: Start: 03-18-2023 Echo tthrc r-t 2d w/wom-mode compl spec&colr d Palomo Farnsworth MD Work Phone: Start: 03-18-2023 C-reactive protein Charlie Farnsworth MD Work Phone: Start: 03-18-2023 Sedimentation rate r bc automated Palomo Farnsworth MD Work Phone: Start: 03-18-2023 Assay of lactate Palomo Farnsworth MD Work Phone: Start: 03-18-2023 Procalcitonin (pct) Pie leliae Carmelo Garcias MD Work Phone: Start: 03-18-2023 Ecg routine ecg w/le ast 12 lds trcg only w/o i&r Quinn Camarillo DO Work Phone: Start: 03-18-2023 Assay of lactate Deb Andersenasters DO Work Phone: Start: 03-17-2023 Urinalysis complete W Reflex Culture panel - Urine Quinn Camarillo DO Work Phone: Start: 03-17-2023 Urnls dip stick/tabl et reagent auto microscopy Quinn Camarillo DO Work Phone: Start: 03-17-2023 Assay of lactate Deb Camarillo DO Work Phone: Start: 03-17-2023 Ct angiography chest w/contrast/noncontrast Quinn Camarillo DO Work Phone: Start: 03-17-2023 EXTRA TUBES Quinn Camarillo DO Work Phone: Start: 03-17-2023 LIGHT BLUE TOP Quinn Camarillo DO Work Phone: Start: 03-17-2023 SST TOP Quinn Camarillo DO Work Phone: Start: 03-17-2023 End: 03-17-2023 Comprehensive metabolic panel Quinn Camarillo DO Work Phone: Start: 03-17-2023 Culture bacterial bl ood aerobic w/id isolates Quinn Camarillo DO Work Phone: Start: 03-17-2023 Influenza virus A an d B RNA [Identifier] in Unspecified specimen by LOGAN with probe detection Quinn Camarillo DO Work Phone: Start: 03-17-2023 SARS-CoV-2 (COVID-19 ) RNA [Presence] in Respiratory specimen by LOGAN with probe detection Quinn Camarillo DO Work Phone: Start: 03-17-2023 Radiologic exam ches t single view Quinn Camarillo DO Work Phone: Start: 03-29-2022 End: 03-29-2022 O2 SATURATION (POC) Mark Philip MD Work Phone: Start: 03-11-2022 Lipid 1996 panel - S nnamdi or Plasma Viktoria Calix APRN.CNP Work Phone: Start: 02-11-2022 Plain chest X-ray Dr. Pipo Lanier Work Phone: History of percutane ous transluminal coronary angioplasty History of PTCA 1 Dr. Ashlee Lanier Work Phone: Comment on above: PTCA/OSCAR in May 20 SARS-CoV-2 & FLU Ant igen (Rapid) Dr. Ashlee Lanier Work Phone: Plan of Treatment Date Care Activity Detail Author Start: 03-11-2027 Lipid 1996 panel - S nnamdi or Plasma Lipid Screening [facility] Start: 03-11-2027 Lipid panel Lipid Screening [facility] Start: 03-11-2027 LIPID SCREEN LIPID SCREEN [facility] Start: 03-21-2026 Diabetes Screening Diabetes Screenin g [facility] Start: 09-26-2025 Creatinine measurement Creatinine Le siddhartha [facility] Start: 09-26-2025 Diabetes mellitus screening Diabetes Screening [facility] Start: 09-26-2025 Potassium measurement Potassium Leve l [facility] Start: 06-07-2025 LIPID SCREEN LIPID SCREEN [facility] Start: 04-15-2025 DIABETES SCREEN [facility] Start: 04-15-2025 Diabetes Screening Diabetes Screenin g [facility] Start: 04-05-2025 DIABETES SCREEN [facility] Start: 03-11-2025 DIABETES SCREEN [facility]EN [facility] Start: 03-05-2025 BP Controlled (<130/80) BP Controlle d (<130/80) [facility] Start: 03-04-2025 End: 03-04-2025 Patient encounter procedure 03/04/2025 9:30 AM EST Office Visit Cardiology [address] [phone] Kailey Ureña, WOOD CUTTER.PIPE BENDER [address] [id number] DX: 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 Cardiology Comment on above: DX: 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 Start: 11-01-2024 Influenza vaccination Influenza Vacc ine (#1) [facility] Start: 09-25-2024 End: 12-25-2024 Basic metabolic 2000 panel - Serum or Plasma BASIC METABOLIC PANEL Lab Routine Chronic diastolic CHF (congestive heart failure) (HCC) Expected: 09/25/2024, Expires: 12/25/2024 [facility] Work Phone: Comment on above: Expected: 09/25/2024 , Expires: 12/25/2024 Start: 09-02-2024 End: 09-02-2024 Patient encounter procedure 09/02/2024 10:00 AM EDT Office Visit Cardiology [address] [id number] Linnette Livingston, WOOD CUTTER.PIPE BENDER [address], [place] [id number] 6 month follow up Cardiology Comment on above: 6 month follow up Start: 09-01-2024 BP Controlled (<130/80) BP Controlle d (<130/80) [facility] Start: 03-21-2024 Creatinine measurement Creatinine Le siddhartha [facility] Start: 03-21-2024 Potassium measurement Potassium Leve l [facility] Start: 03-18-2024 Echocardiography Echocardiogram [facility] Start: 03-08-2024 End: 03-08-2024 Patient encounter procedure 03/08/2024 9:20 AM EST Office Visit Cardiology [address], [place] [id number] Idania Fraire, [address], [place] [phone] 6 mo follow up Cardiology Comment on above: 6 mo follow up Start: 03-04-2024 BP Controlled (<130/80) BP Controlle d (<130/80) [facility] Start: 03-03-2024 Advance Directive Discussion Advance Directive Discussion [facility] Start: 11-17-2023 End: 11-16-2024 XR Chest 2 Views XR chest 2 views Imaging STAT COPD with exacerbation (Multi) Expected: 11/17/2023, Expires: 11/16/2024 [facility] Service Area Work Phone: Comment on above: Expected: 11/17/2023 , Expires: 11/16/2024 Start: 11-12-2023 RSV High Risk: (Elde rly (60+) or Population) (1 - 1-dose 75+ series) RSV High Risk: (Elderly (60+) or Population) (1 - 1-dose 75+ series) [facility] Start: 11-12-2023 RSV Vaccine (1 - 1-d ose 75+ series) RSV Vaccine (1 - 1-dose 75+ series) [facility] Start: 11-02-2023 Covid-19 Vaccine () Covid-19 Vaccine ( season) [facility] Start: 11-02-2023 Influenza vaccination [facility] Start: 09-02-2023 End: 09-02-2023 Patient encounter procedure 09/02/2023 11:20 AM EDT Office Visit Cardiology [address], [place] [phone] Idania Fraire, [address] [place] [address] 6 months Cardiology Comment on above: 6 months Start: 03-11-2023 Hepatitis B surface antibody level LDL CHOLESTEROL [facility] Start: 03-03-2023 Advance Directive Discussion Advance Directive Discussion [facility] Start: 03-03-2023 Behavioral Health Screening Behavioral Health Screening [facility] Start: 11-01-2022 Covid-19 Vaccine ( season) Covid-19 Vaccine () [facility] Start: 11-01-2022 Influenza vaccination [facility] Start: 06-06-2022 End: 08-06-2022 Basic metabolic 2000 panel - Serum or Plasma BASIC METABOLIC PNL Lab Routine Diastolic congestive heart failure, unspecified HF chronicity (HCC) Paroxysmal atrial fibrillation (HCC) 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 Primary hypertension Expected: 06/06/2022, Expires: 08/06/2022 [facility] Work Phone: Comment on above: Expected: 06/06/2022 , Expires: 08/06/2022 Start: 04-05-2022 End: 06-05-2022 Basic metabolic 2000 panel - Serum or Plasma BASIC METABOLIC PNL Lab Routine Systolic congestive heart failure, unspecified HF chronicity (HCC) Expected: 04/05/2022, Expires: 06/05/2022 [facility] Work Phone: Comment on above: Expected: 04/05/2022 , Expires: 06/05/2022 Start: 03-11-2022 End: 05-11-2022 Lipid 1996 panel - Serum or Plasma [facility] Work Phone: Comment on above: Expected: 03/11/2022 , Expires: 05/11/2022 Start: 03-11-2022 End: 05-11-2022 Natriuretic peptide.B prohormone N-Terminal [Mass/volume] in Serum or Plasma [facility] Work Phone: Comment on above: Expected: 03/11/2022 , Expires: 05/11/2022 Start: 03-03-2022 ADVANCE DIRECTIVE DISCUSSION ADVANCE DIRECTIVE DISCUSSION [facility] Start: 03-03-2022 DEPRESSION ASSESSMENT DEPRESSION ASS ESSMENT [facility] Start: 02-11-2022 [facility] Work Phone: Start: 11-01-2021 Influenza vaccination INFLUENZA (#1) [facility] Start: 08-24-2021 IgE [Units/volume] i n Serum or Plasma [facility] Work Phone: Start: 08-24-2021 [facility] Work Phone: Start: 06-07-2021 Diabetes mellitus screening Diabetes Screening [facility] Start: 06-07-2021 Hepatitis B surface antibody level LDL CHOLESTEROL [facility] Start: 03-28-2016 Shingrix Vaccine (2 of 3) Pichardo grix Vaccine (2 of 3) [facility] Start: 03-28-2016 Zoster Vaccines (2 of 3) Zoster Vacc blu (2 of 3) [facility] Start: 01-31-2014 Medicare Annual Well ness Visit Medicare Annual Wellness Visit [facility] [facility] Start: 2013 Abdominal aortic ane urysm screening Abdominal Aortic Aneurysm (AAA) Screening [facility] Start: 2008 RSV patient s and/or patients aged 60+ years (1 - 1-dose 60+ series) RSV patients and/or patients aged 60+ years (1 - 1-dose 60+ series) [facility] Start: 2008 RSV Vaccine (1 - 1-d ose 60+ series) RSV Vaccine (1 - 1-dose 60+ series) [facility] Start: 1998 SHINGRIX VACCINE (1 of 2) PICHARDO GRIX VACCINE (1 of 2) [facility] Start: 1993 COLOGUARD (FIT-DNA) COLOGUARD (FIT-D NA) [facility] Start: 1993 Colonoscopy COLONOSCOPY [facility] Start: 1993 COLORECTAL CANCER SCREENING COLORECTAL CANCER SCREENING [facility] Start: [address] COLONOGRAPHY [facility] Start: 1993 FECAL OCCULT BLOOD FECAL OCCULT BLOO D [facility] Start: 1993 Screening for malign ant neoplasm of colon [facility] Start: 1993 SIGMOIDOSCOPY SIGMOIDOSCOPY [facility] Start: 1970 DTaP/Tdap/Td Vaccine s (1 - Tdap) DTaP/Tdap/Td Vaccines (1 - Tdap) [facility] Start: 11-12-1967 Urine microalbumin profile [facility] Start: 1966 ANNUAL PCP TEAM CIVIL PROCESS SERVER LINDSAY DISEASE VISIT ANNUAL PCP TEAM CHRONIC DISEASE VISIT [facility] Start: 1966 Anxiety Screening Anxiety Screening [facility] Start: 1966 BP CONTROLLED (<130/80) BP CONTROLLE D (<130/80) [facility] Start: 1966 Depression Screening Depression Scre ening [facility] Start: 1966 HEPATITIS C SCREENING HEPATITIS C [facility] Start: 1966 Hepatitis C screening Hepatitis C [facility] Start: 1954 PNEUMOCOCCAL: 65+ (1 - PCV) PNEUMOCOCCAL: 65+ (1 - PCV) [facility] Start: 1953 COVID-19 Vaccine (#1) COVID-19 Vacci ne (#1) [facility] Start: 05-11-1949 COVID-19 VACCINE (#1) COVID-19 VACCI NE (#1) [facility] Start: 1948 ABDOMINAL AORTIC ANE URYSM SCREENING ABDOMINAL AORTIC ANEURYSM SCREENING [facility] Start: 1948 Abdominal aortic ane urysm screening Abdominal Aortic Aneurysm Screening [facility] Start: 1948 Lipid panel Lipid Panel [facility] Start: 1948 Medicare Annual Well ness Visit Medicare Annual Wellness Visit (AWV) [facility] Start: 1948 Screening for malign ant neoplasm of colon [facility] Start: 1948 Thyroid stimulating hormone measurement TSH Level [facility] Alternaria alternata IgE Ab [Units/volume] in Serum [facility] Work Phone: [place] house dust mite IgE Ab [Units/volume] in Serum [facility] Work Phone: End: 09-27-2024 aPTT in Platelet poor plasma by Coagulation assay APTT Lab STAT STAT (Lab) for 1 Occurrences starting 09/27/2024 until 09/27/2024 [facility] Work Phone: Comment on above: STAT (Lab) for 1 Occ urrences starting 09/27/2024 until 09/27/2024 Bacteria identified in Blood by Culture Blood Culture Microbiology STAT 03/17/2023 8:26 PM EST [facility] Work Phone: End: 09-26-2024 Bacteria identified in Blood by Culture [facility] Work Phone: Comment on above: STAT (Lab) for 1 Occ urrences starting 09/26/2024 until 09/26/2024 End: 09-27-2024 Bacteria identified in Urine by Culture Urine Culture Microbiology Routine Once (Lab) for 1 Occurrences starting 09/27/2024 until 09/27/2024 [facility] Work Phone: Comment on above: Once (Lab) for 1 Occ urrences starting 09/27/2024 until 09/27/2024 Bacteria identified in Urine by Culture Urine Culture Microbiology STAT 09/27/2024 12:34 AM EDT [facility] Work Phone: [place] grass IgE Ab [Units/volume] in Serum [facility] Work Phone: Cat dander IgE Ab [Units/volume] in Serum [facility] Work Phone: Common Ragweed IgE A b [Units/volume] in Serum [facility] Work Phone: CT Chest WO contrast [facility] Dog epithelium IgE A b [Units/volume] in Serum [facility] Work Phone: End: 09-26-2024 ECG 12 lead ECG 12 lead ECG STAT Once for 1 Occurrences starting 09/26/2024 until 09/26/2024 [facility] Service [facility] Work Phone: Comment on above: Once for 1 Occurrenc es starting 09/26/2024 until 09/26/2024 End: 02-21-2023 ECG COMPLETE ECG COMPLETE ECG Routine Paroxysmal atrial fibrillation (HCC) Primary hypertension 1 Occurrences starting 02/21/2022 until 02/21/2023 [facility] Work Phone: Comment on above: 1 Occurrences starti ng 02/21/2022 until 02/21/2023 Electrocardiogram, 12-lead PRN ACS symptoms Electrocardiogram, 12-lead PRN ACS symptoms ECG Routine As needed until discontinued starting 03/18/2023 [facility] Work Phone: Comment on above: As needed until disc ontinued starting 03/18/2023 Electrocardiogram, 12-lead PRN ACS symptoms Electrocardiogram, 12-lead PRN ACS symptoms ECG Routine As needed until discontinued starting 03/18/2023 [facility] Work Phone: Comment on above: As needed until disc ontinued starting 03/18/2023 house dust mite IgE Ab [Units/volume] in Serum [facility] Work Phone: Evasc rpr dplmnt [id number] ndgft REPAIR, ANEURYSM, ENDOVASCULAR Ruptured infrarenal abdominal aortic aneurysm (AAA) Virtual [facility] [place] End: 03-17-2023 Extra Urine Barragan Tube Extra Urine Barragan Tube Lab Timed Once for 1 Occurrences starting 03/17/2023 until 03/17/2023 [facility] Work Phone: Comment on above: Once for 1 Occurrenc es starting 03/17/2023 until 03/17/2023 End: 09-26-2024 Extra Urine Barragan Tube Extra Urine Barragan Tube Lab Timed Once for 1 Occurrences starting 09/26/2024 until 09/26/2024 [facility] Work Phone: Comment on above: Once for 1 Occurrenc es starting 09/26/2024 until 09/26/2024 IgE [Units/volume] i n Serum or Plasma [facility] Work Phone: [place] blue grass IgE Ab [Units/volume] in Serum [facility] Work Phone: Measurement of Aspergillus flavus antibody [facility] Work Phone: Measurement of Aspergillus fumigatus antibody [facility] Work Phone: Measurement of Aspergillus niger antibody [facility] Work Phone: Mouse urine proteins [facility] Work Phone: Neutrophil cytoplasm ic Ab.classic [Units/volume] in Serum [facility] Work Phone: P-ANCA measurement [facility] Work Phone: Patient Education COPD: Chronic Coughing [facility] Work Phone: Patient referral [facility] Work Phone: Plantain (Vietnamese) [facility] Work Phone: End: 09-27-2024 Prothrombin time (PT) Protime-INR Lab STAT STAT (Lab) for 1 Occurrences starting 09/27/2024 until 09/27/2024 [facility] Work Phone: Comment on above: STAT (Lab) for 1 Occ urrences starting 09/27/2024 until 09/27/2024 End: 03-18-2023 Pulse oximetry, continuous Pulse oximetry, continuous Respiratory Care Routine Continuous until discontinued starting 03/18/2023 [facility] Work Phone: Comment on above: Continuous until dis continued starting 03/18/2023 End: 03-18-2023 Respiratory care eval and treat Respiratory care eval and treat Respiratory Care Routine Once for 1 Occurrences starting 03/18/2023 until 03/18/2023 [facility] Work Phone: Comment on above: Once for 1 Occurrenc es starting 03/18/2023 until 03/18/2023 End: 03-29-2022 RIGHT AND LEFT HEART CATHETERIZATION RIGHT AND LEFT HEART CATHETERIZATION BIC Routine One Time for 1 Occurrences starting 03/29/2022 until 03/29/2022 [facility] Work Phone: Comment on above: One Time for 1 Occur rences starting 03/29/2022 until 03/29/2022 End: 03-17-2023 Urinalysis complete W Reflex Culture panel - Urine [facility] Service Area Work Phone: Comment on above: Once (Lab) for 1 Occ urrences starting 03/17/2023 until 03/17/2023 End: 09-26-2024 Urinalysis complete W Reflex Culture panel - Urine [facility] Work Phone: Comment on above: Once (Lab) for 1 Occ urrences starting 09/26/2024 until 09/26/2024 [place] IgE Ab [Units/volume] in Serum [facility] Work Phone: [place] IgE Ab [Units/volume] in Serum [facility] Work Phone: [facility] Immunizations Immunization Date Immunization Notes Care Provider [facility] 12-23-2019 influenza virus vaccine, unspecified formulation Viktoria Calix APRN.CNP Work Phone: [facility] 12-02-[address] Ashlee Lanier Work Phone: [facility] Payers Date Payer Category Payer Self-pay [id number] 2023 Medicare supplementa l policy (as second payer) [employer] [id number] 2018 Unknown 2017 Private Health Insurance [id number] 2017 Unknown [id number] 2014 Medicare 2014 Medicare [id number] 1948 Unknown [id number] [id number]. 2. 1948 Unknown [id number] 2.16840.1.630747.3.579. 2. 1948 Unknown [id number] 2.16840.1.252112.3.579. 2. 1948 Unknown [id number] 2.16840.1.778552.3.579. 2. 1948 Unknown [id number] 2.16840.1.978277.3.579. 2. 1948 Unknown [id number] 2.16.840.1.471765.3.579. 2. 1948 Unknown [id number] 2.16840.1.447656.3.579. 2.1242 1948 Unknown [id number] 2.16.840.1.875009.3.579. 2.1242 1948 Unknown [id number] 2.16840.1.385149.3.579. 2.1242 1948 Unknown [id number] 2.16.840.1.616882.3.579. 2.1245 Unknown [id number] 2.16.840.1.815263.3.579. 2.462 Unknown [id number] 2.16.840.1.718669.3.579. 2.462 Unknown [id number] 2.16.840.1.926618.3.579. 2.462 Unknown [id number] 2.16.840.1.167987.3.579. 2.462 Unknown [id number] 2.16.840.1.501341.3.579. 2.462 Unknown [id number] 2.16.840.1.721120.3.579. 2.462 Unknown [id number] [id number]. 2.462 Unknown [id number] [id number]. 2.462 Social History Date Type Detail Facility [facility] Start: 08-24-2021 End: 04-16-2023 Tobacco smoking consumption unknown [facility] Start: 06-12-2020 Occasional [facility] Start: 06-12-2020 None [facility] Start: 06-12-2020 Alone [facility] Start: 06-24-2020 Cigarettes;- [facility] Start: 1950 Sex Assigned At Male [facility] Start: 03-11-2022 End: 03-05-2024 Tobacco smoking status UTIS Ex-smoker [facility] Work Phone: End: 03-03-2005 History of tobacco use Current smoker [facility] Work Phone: End: 03-03-2005 History of tobacco use Cigarette Smoker [facility] Work Phone: Start: 03-11-2022 End: 03-05-2024 Tobacco use and exposure User of smokeless tobacco [facility] Work Phone: History of tobacco use Snuff User [facility] Work Phone: Start: 03-11-2022 End: 03-05-2024 Alcohol intake Current drinker of alcohol (finding) [facility] Start: 05-26-2017 Alcohol Comment occasional [facility] Start: 1950 Sex Assigned At Not on file [facility] Start: 06-06-2022 End: 09-05-2022 History of Social function [facility] Start: 06-06-2022 End: 09-05-2022 Tobacco use panel [facility] Start: 01-25-2022 National Score (1-100), lower number is lower risk 66 [facility] Start: 03-10-2023 Tobacco smoking status NHIS Never smoked tobacco [facility] Work Phone: Start: 03-10-2023 End: 09-27-2024 Alcohol intake Lifetime non-drinker (finding) [facility] Work Phone: Start: 02-28-2023 End: 04-03-2024 Exposure to SARS-CoV-2 (event) Not sure [facility] How often to you hav e a drink containing alcohol? Never [facility] How hard is it for y ou to pay for the very basics like food, housing, medical care, and heating Not very hard [facility] In the past 12 month s, was there a time when you were not able to pay the mortgage or rent on time? No [facility] Work Phone: Start: 11-07-2023 End: 11-17-2023 Exposure to SARS-CoV-2 (event) Yes [facility] Start: 06-29-2024 Sex Male (finding) [facility] Start: 09-26-2024 Gender identity Identifies as male gender (finding) [facility] Work Phone: Start: 09-26-2024 Sexual orientation Heterosexual (finding) [facility] Work Phone: Goals Date Patient Goal Desired Activity /State Personal health goal Functional Status Date Assessment Result Facility 09-26-2024 Scott - suicide severity rating scale screener - recent [C-SSRS] [facility] Work Phone: 06-11-2020 Are you deaf, or do you have serious difficulty hearing No 06/11/2020 12:55 PM Tori Frankel RN No [facility] 06-11-2020 Are you blind, or do you have serious difficulty seeing, even when wearing glasses No 06/11/2020 12:55 PM Tori Frankel, MURIEL No [facility] 06-11-2020 Do you have serious difficulty walking or climbing stairs Yes 06/11/2020 12:55 PM Tori Frankel, MURIEL Yes [facility] 06-11-2020 Do you have difficul ty dressing or bathing Yes 06/11/2020 12:55 PM Tori Frankel, MURIEL Yes [facility] 06-11-2020 Because of a physica l, mental, or emotional condition, do you have difficulty doing errands alone such as visiting a physician's office or shopping Yes 06/11/2020 12:55 PM Tori Frankel RN Yes [facility] Mental Status Date Assessment Result Facility 06-11-2020 Because of a physica l, mental, or emotional condition, do you have serious difficulty concentrating, remembering, or making decisions Yes 06/11/2020 12:55 PM Tori Frankel RN Yes [facility] Clinical Notes 05-27-2017 to 10-13-2024 Telephone Encounter - Kailey Ureña APRN.[facility] - 09/25/2024 10:54 AM EDTTelephone Encounter - Kailey Ureña APRN.CNP - 09/25/2024 10:54 AM Alfredo Thacker APRN-PIPE BENDER - 04/03/2024 2:20 PM EST Note Date & Type Note Facility 10-13-[address] [facility] Medical Records Department [address] [place] [address] History Physical Exam 10/13/242025 MR#: [id number] Acct: [id number] Name: CHERYL DE LA FUENTE Jr. Rep #: [id number] : 1950 73 From: Norris Olmedo MD PCP: Dr. Ashlee Lanier MD Status:ADM IN Location: [id number] HPI - General General Date of Admission: 10/13/24 Date of Service: 10/14/24 Chief Complaint: Here for rehabilitation. HPI Narrative CHERYL DE LA FUENTE, is a 73 Male who presents with followin09/27/2024 Admit to [facility]. COPD on 2 liters oxygen at home, HTN, atrial fibrillation on Xarelto, CAD (cath 03/2022) on Plavix, history of CVA. Shortness of breath, lower abdominal pain for 2-3 days, he went to OSH ED and was found to have an infrarenal ruptured AAA. He was transferred to directly to OR for EVAR. Percutaneous closure of right common femoral access and left femoral cutdown and patch angioplasty for repair of left common femoral artery. Patient presented to SICU s/p EVAR, Arrived to the ICU off vasopressors. 09/27/2024 CTA chest/abdomen/pelvis negative for pulmonary embolism. Subsegmental atelectasis in the right middle lobe with volume loss. No pleural effusion. Moderate aortic valve atherosclerotic calcifications and coronary artery atherosclerotic calcifications. Clinical correlation for bicuspid valve or aortic stenosis recommended. . Marked irregularity and outpouching of the infrarenal abdominal aorta measuring 8.0 x 5.2cm axillay with surrounding left retroperitoneal low density hematoma compatible with infrarenal abdominal aortic aneurysm rupture. Small amount of low density free fluid in the dependent portion of the pelvis. Vascular consultation recommended. Prostatomegaly and trabeculated bladder compatible with bladder outlet obstruction. Hydromorphone prn for pain control. Lidoderm patches surrounding surgical incision. PT/OT. NG tube placed for dark red blood emesis. 09/28/2024 Hypotension treated with albumin, 2 units PRBC, and Levo. Endoleak. Indwelling baldwin for bladder outlet obstruction. 09/29/2024 Emergent intubation for acute respiratory failure. 10/02/2024 Extubated. 10/06/2024 C. Diff negative. 10/07/2024 Doppler ultrasound positive right lower extremity dvt, treated with bivalrudin. 10/12/2024 No issues over night, tolerated CPAP overnight. PT/OT for SNF. Start Plavix today, wait to start Xarelto. Lasix 40mg IV for pulmonary edema, weight increase. 10/13/2024 Admit to TCU with debility, here for rehabilitation, strengthening, prior to discharge home alone. [facility] Medical History (Updated 10/13/24 @ 20:[address] Norris Olmedo MD) Cellulitis of right lower extremity Carotid artery disease Cerebrovascular disease Stroke BPH (benign prostatic hyperplasia) Snuff user Former smoker History of PTCA 1 History of non-ST elevation myocardial infarction (NSTEMI) Coronary artery disease Mild aortic stenosis Paroxysmal atrial fibrillation Debility Left ventricular hypertrophy COPD (chronic obstructive pulmonary disease) Chronic anticoagulation Hyperlipidemia Hypertension Home Medications ???Medication ???Instructions ???Recorded ???Last Taken ???Type multivitamin 1 each PO DAILY vitamin 06/11/20 U nknown History acetaminophen 325 mg tablet 650 mg (2 x 325 mg) PO Q6H PRN PRN 06/22/20 Unknown Rx PAIN 1-10 nitroglycerin 0.4 mg sublingual 0.4 mg sublingual Q5M PRN chest Unknown Rx tablet pain #1 BOTTLE PEP device #1 ea 02/16/21 Unknown Rx benzonatate 100 mg capsule 100 mg PO Q8H PRN 05/22/21 Unknown History spironolactone 25 mg tablet 12.5 mg PO DAILY blood pressure Unknown History amlodipine 5 mg tablet 5 mg PO DAILY blood pressure #90 1 03/21/23 Unknown Rx tabs atorvastatin 80 mg tablet 80 mg PO QHS cholesterol #90 tabs 01/20/24 Unknown Rx clopidogrel 75 mg tablet 75 mg PO DAILY blood thinner #90 1 03/21/23 Unknown Rx tabs furosemide 20 mg tablet 10 mg (1/2 x 20 mg) PO Q OTHER DAY 01/20/24 Unknown Rx hypertension #60 tabs levothyroxine 75 mcg tablet 75 mcg PO DAILY thyroid #90 tabs 1 03/21/23 Unknown Rx losartan 100 mg tablet 100 mg PO DAILY #90 tabs 01/20/24 Unknown Rx magnesium chloride 71.5 mg 71.5 mg PO BID #180 tabs 01/20/24 Unknown Rx (magnesium chloride) tablet,delayed release rivaroxaban 20 mg tablet 20 mg PO DAILY DVT prophylaxis #90 01/20/24 Unknown Rx tabs sertraline 100 mg tablet (Zoloft) 100 mg PO DAILY depression #90 ta bs 01/20/24 Unknown Rx montelukast 10 mg tablet 10 mg PO QPM asthma #90 tabs 03/16 Unknown Rx albuterol sulfate 90 mcg/actuation 2 inh inhalation Q4H PRN PRN Unknown Rx aerosol inhaler Wheezing #8.5 grams omalizumab 300 mg/2 mL 300 mg (2 mL) subcut Q4W #2 mL Unknown Rx s (more content not included)... [facility] 09-25-2024 Telephone encounter Note Prescription was approved Please let the patient know he is due for updated kidney and potassium check. I placed these orders. These are nonfasting labs. Kailey Ureña APRN.CNP [facility] 09-25-2024 Miscellaneous Notes Prescription was approved Please let the patient know he is due for updated kidney and potassium check. I placed these orders. These are nonfasting labs. Kailey Ureña APRN.CNP [facility] 03/05/24 Darryl NOV 03/04/25 Niranjan Prescription Refill Information The patient has been identified by name and date of : Yes Caregiver verified no other encounters exist for this prescription request: Yes Caregiver confirmed with patient/requestor that no other refills are due, in the near future, with this provider at this time: Yes The last office visit in the department: 03/05/24 Does the patient have a future office visit with this provider/department: Yes Requested Prescriptions Pending Prescriptions Disp Refills spironolactone (ALDACTONE) 25 mg tablet 45 tablet 3 Sig: Take 0.5 tablets by mouth once daily. Isabel Man September 24, 2024 3:13 PM documented in this encounter [facility] 09-24-2024 Telephone encounter Note GAMAL 03/05/24 Darryl SALVADOR 03/04/25 Niranjan [facility] 09-24-2024 Telephone encounter Note Prescription Refill Information The patient has been identified by name and date of : Yes Caregiver verified no other encounters exist for this prescription request: Yes Caregiver confirmed with patient/requestor that no other refills are due, in the near future, with this provider at this time: Yes The last office visit in the department: 03/05/24 Does the patient have a future office visit with this provider/department: Yes Requested Prescriptions Pending Prescriptions Disp Refills spironolactone (ALDACTONE) 25 mg tablet 45 tablet 3 Sig: Take 0.5 tablets by mouth once daily. Isabel Man September 24, 2024 3:13 PM [facility] 04-03-2024 History of Presen t illness Narrative [facility] Viktoria Thacker APRN-PIPE BENDER Visit Note - 04/03/2024 3:18 PM This note was generated with voice recognition software and may contain errors including spelling, grammar, syntax, and misrecognization of what was dictated. Patient: Cheryl De La Fuente, , 73 y.o., male PCP: Ashlee Lanier MD ----- ALLERGIES: Allergies Allergen Reactions Codeine Other and Unknown Irritability CURRENT MEDICATIONS: Current Outpatient Medications Medication Instructions albuterol 2.5 mg /3 mL (0.083 %) nebulizer solution USE 1 VIAL VIA NEBULIZER EVERY 4 HOURS NEEDED for SHORTNESS OF BREATH or FOR WHEEZING amLODIPine (Norvasc) 5 mg tablet 1 tablet, Daily atorvastatin (Lipitor) 80 mg tablet azithromycin (Zithromax Z-Jatin) 250 mg tablet Take 2 tablets by mouth at once on day 1, then 1 tablet once a day on days 2-5. Take with a meal. fluticasone (Flonase Allergy Relief) 50 mcg/actuation nasal spray Administer into affected nostril(s). furosemide (Lasix) 20 mg tablet TAKE ONE-HALF TABLET (10mg) BY MOUTH EVERY OTHER DAY ipratropium (Atrovent) 0.02 % nebulizer solution USe contents OF 1 (ONE) vial via nebulizer EVERY 6 HOURS NEEDED for SHORTNESS OF BREATH or FOR WHEEZING ipratropium-albuteroL (Duo-Neb) 0.5-2.5 mg/3 mL nebulizer solution 3 mL, nebulization, Every 6 hours PRN levothyroxine (Synthroid, Levoxyl) 75 mcg tablet 1 tablet, Daily metoprolol succinate XL (Toprol-XL) 50 mg 24 hr tablet 1 tablet, Daily montelukast (SINGULAIR) 10 mg, Nightly nitroglycerin (Nitrostat) 0.4 mg SL tablet DISSOLVE 1 TABLET UNDER THE TONGUE NEEDED FOR CHEST PAIN- MAY REPEAT EVERY 5 MINUTES IF NEEDED ( MAX 3 DOSES.- IF NO RELIEF CALL 911) Plavix 75 mg tablet 1 tablet, Daily potassium chloride CR 20 mEq ER tablet sertraline (Zoloft) 100 mg tablet spironolactone (Aldactone) 25 mg tablet Trelegy Ellipta 100-62.5-25 mcg blister with device Xarelto 20 mg tablet Take by mouth. ----- PAST MEDICAL HX: Patient Active Problem List Diagnosis (none) - all problems resolved or deleted SURGICAL HX: Past Surgical History: Procedure Laterality Date CORONARY STENT PLACEMENT SINUS SURGERY Bilateral FAMILY HX: No pertinent history. SOCIAL HX: reports that he quit smoking about 19 years ago. His smoking use included cigarettes. His smokeless tobacco use includes snuff. ----- CHIEF COMPLAINT: Chief Complaint Patient presents with Cough Cough, wheezing and SOB x 1 week HISTORY OF PRESENT ILLNESS: The history was obtained from patientRanjan Baird is a 73 y.o. male, who presents with a chief complaint of a productive cough, wheezing, and shortness of breath x 1 week, although later states is following with pulmonology and has been sick for ~2 months. Reports pulmonology started him on a course of antibiotics when sxs initially started, and when he returned with continued symptoms, they did not want to rx additional antibiotics until they reviewed results of a chest CT, which was done earlier this week, but he has not yet received the results of - reports a recent CXR showed a nodule on his lung. Reports he is on daily prednisone (is unsure how much, and dosing not available in viewable records today) - he is requesting a Zpac, I know that's what I need. Reports has been doing home nebulizer treatments 2-3x/day - last treatment was done this AM. Denies any fever/chills, new body aches, runny nose/congestion, sore throat, ear pain, abdominal pain, chest pain, rashes, urinary symptoms, nausea/vomiting, and diarrhea. Denies any lightheadedness or dizziness; no changes in mental status. No swelling in legs. Reports symptoms have gotten worse since onset. Is a former smoker and has history of COPD. Reports he has home supplemental O2 but he only uses it at night. Of note, also has history of CHF. REVIEW OF SYSTEMS: 10 systems reviewed negative with exception of history of present illness as listed above. TODAY'S VITALS: BP 108/68 Pulse 108 Temp 36.4 C (97.6 F) (Temporal) Resp 14 Ht 1.851 m (6' 0.87) Wt 102 kg (225 lb) SpO2 (!) 83% BMI 29.79 kg/m Recheck SpO2: varying, but consistently at ~93% PHYSICAL EXAMINATION: General: Pleasant, well nourished male; alert and oriented; in no acute distress. Sitting comfortably on exam chair. Non-dyspneic. Eyes: Pupils equal, round and reactive to light. No conjunctival erythema; no scleral icterus. HENT: No sinus tenderness; no audible nasal congestion. Airway patent, Bilat TMs unremarkable, ear canals clear/unremarkable bilaterally. Nasal mucosa unremarkable. Oral mucosa moist. Posterior pharynx unremarkable. Uvula is midline. Managing oral secretions without difficulty. No JVD. Neck: Supple. Mildly tender, mobile anterior cervical lymphadenopathy bilat. Trachea is midline. Respiratory: Respirations easy and unlabored, Breath sounds diminished throughout but equal. Lungs with scattered rhonchi and wheezes that do not clear with cough; no rales. Has good air movement throughout. Harsh, semi-productive cough noted- having coughing fits during visit. Mildly-dyspneic with ambulation; able to maintain SpO2. Cardiovascular: Normal rate, Regular rhythm. Normal S1S2. + murmur; no r/g. No peripheral edema. Gastrointestinal: Soft, non-tender, non-distended; no palpable masses or organomegaly. Bowel sounds normoactive. Musculoskeletal: Grossly normal; appropriate for age. Integumentary: Tab, warm, dry, and intact. No rashes or skin discoloration appreciated. Good skin turgor. Neurologic: Alert and oriented, no gross deficits. Cognition and Speech: Oriented, Speech clear and coherent. Psychiatric: Cooperative, Appropriate mood & affect. ----- Medical Decision Making LABORATORY or RADIOLOGICAL IMAGING ORDERS/RESULTS: None IMPRESSION/PLAN: Course: Worsening; stable 1. Acute bronchitis, unspecified organism (Primary) - azithromycin (Zithromax Z-Jatin) 250 mg tablet; Take 2 tablets by mouth at once on day 1, then 1 tablet once a day on days 2-5. Take with a meal. Dispense: 6 tablet; Refill: 0 Due to severity of symptoms today and intermittently low SpO2, strongly encouraged to consider seeking care at the ER - patient not receptive. He also is not receptive to obtaining a CXR or doing a nebulizer treatment in office today. Recent CT scan results not available for review. Patient was able to verbalize clear understanding of my concerns and the risks of delaying evaluation/advanced care, but adamant in his request, I just need another antibiotic. Insists will go to ER tomorrow morning if he is not improving. Stressed importance of following through if sxs worsen at any point (or if he would reconsider). Reluctantly agreed to rx Zithromax, but advised MUST contact pulmonology first thing on Friday if his sxs are not improving and he has not gone to the ER for further evaluation. Also urged to continue respiratory medications (including nebulizer treatments and supplemental O2) as directed by pulmonology- should plan treatment as soon as he gets back home. Instructed to push fluids, rest, and to use appropriate over the counter medications as needed for management of symptoms - plain Mucinex may be helpful. Reviewed instructions for self-isolation and continued monitoring. Reviewed red flags to monitor for, counseled on potential adverse reactions of treatments, expectations for improvement in sxs, and advised to seek care immediately if worsening or if any additional concerns/red flags develop. Patient agreed with plan of care; questions were encouraged and answered. SHRUTHI Nguyen Advanced Practice Provider [facility] documented in this encounter [facility] Work Phone: 03-16-2024 Evaluation note Diagnosis Onset Date Resolution Asthma-COPD overlap syndrome chronic March 16 2:52pm Bronchiectasis chronic March 162024 2:52pm Hypoxia chronic March 16, 2024 2:52pm MARK (obstructive sleep apnea) chronic March 16 2:52pm Pulmonary nodule chronic March 16, 2024 2:52pm Cerebrovascular disease acute F 2024 1:28pm Asthma-COPD overlap syndrome chronic April 12 2 025 1:28pm Chronic anticoagulation chronic F 2024 1:28pm COPD (chronic obstructive pulmonary disease) chronic April 1:28pm Debility chronic April 12, 2024 1:28pm Hyperlipidemia chronic April 032024 1:28pm Hypertension chronic April 1:28pm MARK (obstructive sleep apnea) chronic April 12 2 025 1:28pm Paroxysmal atrial fibrillation chronic April 12 025 1:28pm Pulmonary nodule chronic April 12, 2024 1:28pm Acute exacerbation of chronic obstructive pulmonary disease noneactive April 12, 2024 1:28pm [facility] Work Phone: 1(368) 565-120901-14-2025 Evaluation note* Diagnosis Onset Date Resolution Status Admit Date Asthma-COPD overlap syndrome chronic March 16, 2024 2:52pm Bronchiectasis chronic March 162024 2:52pm Hypoxia chronic March 16, 2024 2:52pm MARK (obstructive sleep apnea) chroni c March 16, 2024 2:52pm Pulmonary nodule chronic March 16, 2024 2:52pm Cerebrovascular disease acute F 2024 1:28pm Asthma-COPD overlap syndrome chronic April 12, 2024 1:28pm Chronic anticoagulation chronic F 2024 1:28pm COPD (chronic obstructive pulmonary disease) chronic April 1:28pm Debility chronic April 12, 2024 1:28pm Hyperlipidemia chronic April 032024 1:28pm Hypertension chronic April 1:28pm MARK (obstructive sleep apnea) chroni c April 12, 2024 1:28pm Paroxysmal atrial fibrillation chron ic April 12, 2024 1:28pm Pulmonary nodule chronic April 12, 2024 1:28pm Acute exacerbation of chroni c obstructive pulmonary disease noneactive Fe 2024 1:28pm Severe persistent allergic asthma acute July 14, 2024 2 :55pm [facility] Work Phone: 1(971) 759-210701-03-2025 NoteHNO ID: [id number] Author: IDANIA FRAIRE, DO Service: ? Author Type: Physician Type: Progress Notes Filed: 03/05/2024 11:05 Note Text: [facility] CARDIOLOGY [facility] OUTPATIENT VISIT DATE March 05, 2024 PRIMARY CARE PHYSICIAN: Ashlee Lanier [address] [address] HISTORY OF PRESENT ILLNESS: Mr. De La Fuente is a 73 year old male. The patient returns for follow-up secondary history of chronic diastolic heart failure, coronary artery disease with previous stenting of the left circumflex, paroxysmal atrial fibrillation on long-term anticoagulation with Xarelto, hypertension, hyperlipidemia, mild aortic stenosis with mild ascending aortic dilatation. He denies chest discomfort, dyspnea proportion usual, orthopnea, paroxysmal after dyspnea, palpitations, near-syncope or syncope. He continues to have dyspnea as result he believes of his COPD. PLAN AND RECOMMENDATIONS: The patient overall appears stable without apparent symptoms that would suggest angina or cardiac decompensation on his current optimal medical therapy. Heart rate, blood pressure and recent cholesterol profile are favorable and the same. We have therefore made no additions or changes. Dietary and lifestyle modification was reemphasized to facilitate risk factor reduction and heart failure prevention. We will look forward to reevaluating him in 6 months time. Vitals: BP 110/66 Pulse 73 Ht 182.9 cm (6') Wt 82.6 kg (182 lb) SpO2 95% BMI 24.68 kg/m? Physical Exam Vitals reviewed. Constitutional: General: He is not in acute distress. Appearance: Normal appearance. He is well-developed. He is not diaphoretic. HENT: Head: Normocephalic and atraumatic. Right Ear: External ear normal. Left Ear: External ear normal. Nose: Nose normal. Eyes: General: No scleral icterus. Right eye: No discharge. Left eye: No discharge. Pupils: Pupils are equal, round, and reactive to light. Neck: Thyroid: No thyromegaly. Vascular: No carotid bruit or JVD. Cardiovascular: Rate and Rhythm: Normal rate and regular rhythm. Heart sounds: Murmur heard. Crescendo decrescendo systolic murmur is present with a grade of 1/6. No friction rub. No gallop. Pulmonary: Effort: Pulmonary effort is normal. No respiratory distress. Breath sounds: Normal breath sounds. No wheezing or rales. Abdominal: General: Bowel sounds are normal. Palpations: Abdomen is soft. Musculoskeletal: General: Normal range of motion. Cervical back: Neck supple. Skin: General: Skin is warm and dry. Capillary Refill: Capillary refill takes less than 2 seconds. Coloration: Skin is not pale. Neurological: Mental Status: He is alert and oriented to person, place, and time. Cranial Nerves: No cranial nerve deficit. Psychiatric: Mood and Affect: Mood normal. Mood is not anxious or depressed. Behavior: Behavior normal. Thought Content: Thought content normal. Judgment: Judgment normal. Review of Systems Constitutional: Negative for activity change, appetite change, fatigue and unexpected weight change. HENT: Negative for ear pain and trouble swallowing. Eyes: Negative for pain and visual disturbance. Respiratory: Positive for cough and shortness of breath. Negative for chest tightness. Cardiovascular: Negative for chest pain, palpitations and leg swelling. Gastrointestinal: Negative for abdominal pain and blood in stool. Endocrine: Negative for cold intolerance and heat intolerance. Genitourinary: Negative for dysuria, hematuria and scrotal swelling. Musculoskeletal: Negative for arthralgias and myalgias. Skin: Negative for pallor and rash. Allergic/Immunologic: Negative for immunocompromised state. Neurological: Negative for dizziness, syncope and light-headedness. Hematological: Negative for adenopathy. Does not bruise/bleed easily. Psychiatric/Behavioral: Negative for sleep disturbance. The patient is not nervous/anxious. PAST MEDICAL HISTORY Diagnosis Date Asthma CAD (coronary artery disease) Chronic obstructive pulmonary disease (COPD) ([facility]) Diastolic congestive heart failure ([facility]) 03/11/2022 Dyslipidemia Flutter-fibrillation ([facility]) Heart attack ([facility]) Hypertension NSTEMI (non-ST elevated myocardial infarction) ([facility]) 05/2018 Stroke ([facility]) Thyroid disease TIA (transient ischemic attack) PAST SURGICAL HISTORY Procedure Laterality Date CARDIAC CATHETERIZATION HX 05/2017 1 stent Social History Tobacco Use Smoking status: Former Current packs/day: 0.00 Types: Cigarettes Quit date: 03/03/2005 Years since quittin.0 Smokeless tobacco: Current Types: Snuff Vaping Use Vaping status: Never Used Substance Use Topics Alcohol use: Yes Comment: occasional Drug use: No FAMILY HISTORY Problem Relation Age of Onset Ischemic Heart Disease Father other (htn) Maternal (more content not included)...[facility] 03-05-2024 History of Present illness Narrative* Idania Fraire DO - 03/05/2024 10:38 AM EST Images from the original note were not included. [facility] OUTPATIENT VISIT DATE March 05, 2024 PRIMARY CARE PHYSICIAN: Ashlee Lanier [address] [address] HISTORY OF PRESENT ILLNESS: Mr. De La Fuente is a 73 year old male. The patient returns for follow-up secondary history of chronic diastolic heart failure, coronary artery disease with previous stenting of the left circumflex, paroxysmal atrial fibrillation on long-term anticoagulation with Xarelto, hypertension, hyperlipidemia, mild aortic stenosis with mild ascending aortic dilatation. He denies chest discomfort, dyspnea proportion usual, orthopnea, paroxysmal after dyspnea, palpitations, near-syncope or syncope. He continues to have dyspnea as result he believes of his COPD. PLAN AND RECOMMENDATIONS: The patient overall appears stable without apparent symptoms that would suggest angina or cardiac decompensation on his current optimal medical therapy. Heart rate, blood pressure and recent cholesterol profile are favorable and the same. We have therefore made no additions or changes. Dietary and lifestyle modification was reemphasized to facilitate risk factor reduction and heart failure prevention. We will look forward to reevaluating him in 6 months time. Vitals: BP 110/66 Pulse 73 Ht 182.9 cm (6') Wt 82.6 kg (182 lb) SpO2 95% BMI 24.68 kg/m Physical Exam Vitals reviewed. Constitutional: General: He is not in acute distress. Appearance: Normal appearance. He is well-developed. He is not diaphoretic. HENT: Head: Normocephalic and atraumatic. Right Ear: External ear normal. Left Ear: External ear normal. Nose: Nose normal. Eyes: General: No scleral icterus. Right eye: No discharge. Left eye: No discharge. Pupils: Pupils are equal, round, and reactive to light. Neck: Thyroid: No thyromegaly. Vascular: No carotid bruit or JVD. Cardiovascular: Rate and Rhythm: Normal rate and regular rhythm. Heart sounds: Murmur heard. Crescendo decrescendo systolic murmur is present with a grade of 1/6. No friction rub. No gallop. Pulmonary: Effort: Pulmonary effort is normal. No respiratory distress. Breath sounds: Normal breath sounds. No wheezing or rales. Abdominal: General: Bowel sounds are normal. Palpations: Abdomen is soft. Musculoskeletal: General: Normal range of motion. Cervical back: Neck supple. Skin: General: Skin is warm and dry. Capillary Refill: Capillary refill takes less than 2 seconds. Coloration: Skin is not pale. Neurological: Mental Status: He is alert and oriented to person, place, and time. Cranial Nerves: No cranial nerve deficit. Psychiatric: Mood and Affect: Mood normal. Mood is not anxious or depressed. Behavior: Behavior normal. Thought Content: Thought content normal. Judgment: Judgment normal. Review of Systems Constitutional: Negative for activity change, appetite change, fatigue and unexpected weight change. HENT: Negative for ear pain and trouble swallowing. Eyes: Negative for pain and visual disturbance. Respiratory: Positive for cough and shortness of breath. Negative for chest tightness. Cardiovascular: Negative for chest pain, palpitations and leg swelling. Gastrointestinal: Negative for abdominal pain and blood in stool. Endocrine: Negative for cold intolerance and heat intolerance. Genitourinary: Negative for dysuria, hematuria and scrotal swelling. Musculoskeletal: Negative for arthralgias and myalgias. Skin: Negative for pallor and rash. Allergic/Immunologic: Negative for immunocompromised state. Neurological: Negative for dizziness, syncope and light-headedness. Hematological: Negative for adenopathy. Does not bruise/bleed easily. Psychiatric/Behavioral: Negative for sleep disturbance. The patient is not nervous/anxious. PAST MEDICAL HISTORY Diagnosis Date Asthma CAD (coronary artery disease) Chronic obstructive pulmonary disease (COPD) ([facility]) Diastolic congestive heart failure ([facility]) 03/11/2022 Dyslipidemia Flutter-fibrillation ([facility]) Heart attack ([facility]) Hypertension NSTEMI (non-ST elevated myocardial infarction) ([facility]) 05/2018 Stroke ([facility]) Thyroid disease TIA (transient ischemic attack) PAST SURGICAL HISTORY Procedure Laterality Date CARDIAC CATHETERIZATION HX 05/2017 1 stent Social History Tobacco Use Smoking status: Former Current packs/day: 0.00 Types: Cigarettes Quit date: 03/03/2005 Years since quittin.0 Smokeless tobacco: Current Types: Snuff Vaping Use Vaping status: Never Used Substance Use Topics Alcohol use: Yes Comment: occasional Drug use: No FAMILY HISTORY Problem Relation Age of Onset Ischemic Heart Disease Father other (htn) Maternal Grandmother ALLERGIES Allergen Reactions Codeine Unknown CURRENT MEDICATIONS: spironolactone (ALDACTONE) 25 mg tablet Take 0.5 tablets by mouth once daily. metoprolol tartrate, short acting, (LOPRESSOR) 25 mg tablet 0.5 tablets by ORAL/FEEDING TUBE route once daily. furosemide (LASIX) 20 mg tablet Take 1 tablet by mouth once daily. TRELEGY ELLIPTA 100-62.5-25 mcg inhalation powder INHALE 1 PUFF DAILY DIRECTED montelukast (SINGULAIR) 10 mg tablet Take 10 mg by mouth daily at bedtime. predniSONE (DELTASONE) 10 mg tablet Take 10 mg by mouth once daily. amLODIPine (NORVASC) 5 mg tablet Take by mouth. losartan (COZAAR) 100 mg tablet sertraline (ZOLOFT) 100 mg tablet rivaroxaban (XARELTO) 20 mg tablet Take 1 tablet by mouth daily with dinner. atorvastatin (LIPITOR) 80 mg tablet 1 tablet by ORAL/FEEDING TUBE route daily at bedtime. senna-docusate (SENNA-S) 8.6-50 mg per tablet 1 tablet by ORAL/FEEDING TUBE route twice daily. ipratropium-albuterol (DUONEB) 0.5 mg-3 mg(2.5 mg base)/3 mL nebu Inhale 3 mL as instructed every 4hours as needed. clopidogrel (PLAVIX) 75 mg tablet Take 1 tablet by mouth once daily. Do NOT stop taking without talking to your blind cleaner. levothyroxine (SYNTHROID) 75 mcg tablet Take 75 mcg by mouth daily before breakfast. MULTIVITAMIN TAB Take one(1) tablet daily. albuterol sulfate(VENTOLIN HFA 90 MCG/ACTUATION AEROSOL INHALER) 2 puffs every 4 hours as needed Idania Fraire DO, FACC, FAC [employer] Estate Agency Licensee, [facility] Real Estate [employer] Licensee, [facility] Cardiac Rehabilitation [employer] Estate [employer] Licensee, [facility] Cardiac Rehabilitation [employer] Licensee, [facility] [employer] Estate Agency Licensee, [facility] Ambulatory Cardiology Clinical Pan Operator Prof[employer] of Medicine, [facility] of Medicine - [facility] Staff Intake Counselor, Pinky Camarena Department of Cardiovascular Medicine/Heart and Vascular [place], [facility] Please note: This note has been produced using speech recognition software and may contain errors related to that system including leonides, punctuation, spelling, words, gender and phrases that may be inappropriate. documented in this encounter[facility]09-16-[facility]24 History of Present illness Narrative* Quincy Abebe APRN-PIPE BENDER - 11/17/2023 4:55 PM EDT 73 y.o. male presents with daughter for evaluation of cough, nasal and chest congestion, and mild SOB for the past 2 weeks. Does have a history of COPD. Does have O2 at home that he has been using more for SOB. No fevers, orthopnea, chest pains, inability to catch breath with rest, n/v/d, abdominalpains or any other associated symptoms. No otc meds for symptoms. Does use daily inhalers as well as nebulizing treatments. No known ill contacts. No other complaints. Vitals: 11/17/23 1658 BP: 119/85 Pulse: 70 Resp: 20 Temp: 36.4 C (97.5 F) SpO2: 98% Allergies Allergen Reactions Codeine Other and Unknown Irritability Medication Documentation Review Audit Reviewed by Yaneth Chatterjee MA ([place]) on 11/17/23 at 1657 Medication Order Taking? Sig Documenting Provider Last Dose Status albuterol 2.5 mg /3 mL (0.083 %) nebulizer solution [id number] Yes USE 1 VIAL VIA NEBULIZER EVERY 4 HOURS NEEDED for SHORTNESS OF BREATH or FOR WHEEZING Historical Provider, Taking Active amLODIPine (Norvasc) 5 mg tablet [id number] Yes Take 1 tablet (5 mg) by mouth once daily. Historical Provider, Taking Active atorvastatin (Lipitor) 80 mg tablet [id number] Yes Historical Provider, Taking Active fluticasone (Flonase Allergy Relief) 50 mcg/actuation nasal spray [id number] Yes Administer into affected nostril(s). Historical Provider, Taking Active furosemide (Lasix) 20 mg tablet [id number] Yes TAKE ONE-HALF TABLET (10mg) BY MOUTH EVERY OTHER DAY Historical Provider, Taking Active ipratropium (Atrovent) 0.02 % nebulizer solution [id number] Yes USe contents OF 1 (ONE) vial via nebulizer EVERY 6 HOURS NEEDED for SHORTNESS OF BREATH or FOR WHEEZING Historical Provider, TakingActive ipratropium-albuteroL (Duo-Neb) 0.5-2.5 mg/3 mL nebulizer solution [id number] Yes Take 3 mL by nebulization every 6 hours if needed for wheezing. Quincy Abebe, WOOD CUTTER-PIPE BENDER Taking Active levothyroxine (Synthroid, Levoxyl) 75 mcg tablet [id number] Yes Take 1 tablet (75 mcg) by mouth once daily. Historical Provider, Taking Active metoprolol succinate XL (Toprol-XL) 50 mg 24 hr tablet [id number] Yes Take 1 tablet (50 mg) by mouth once daily. Historical Provider, Taking Active montelukast (Singulair) 10 mg tablet [id number] Yes Take 1 tablet (10 mg) by mouth once daily at bedtime. Historical Provider, Taking Active nitroglycerin (Nitrostat) 0.4 mg SL tablet [id number] Yes DISSOLVE 1 TABLET UNDER THE TONGUE NEEDED FOR CHEST PAIN- MAY REPEAT EVERY 5 MINUTES IF NEEDED ( MAX 3 DOSES.- IF NO RELIEF CALL 911) Historical Provider, Taking Active Plavix 75 mg tablet [id number] Yes Take 1 tablet (75 mg) by mouth once daily. Historical Provider, Taking Active potassium chloride CR 20 mEq ER tablet [id number] Yes Historical Provider, Taking Active sertraline (Zoloft) 100 mg tablet [id number] Yes Historical Provider, Taking Active spironolactone (Aldactone) 25 mg tablet [id number] Yes Historical Provider, Taking Active Trelegy Ellipta 100-62.5-25 mcg blister with device [id number] Yes Historical Provider, Taking Active Xarelto 20 mg tablet [id number] Yes Take by mouth. Historical Provider, Taking Active Past Medical History: Diagnosis Date Atrial fibrillation (Multi) COPD (chronic obstructive pulmonary disease) (Multi) Coronary artery disease Hypertension Hypothyroidism Stroke (Multi) Past Surgical History: Procedure Laterality Date CORONARY STENT PLACEMENT SINUS SURGERY Bilateral ROS See HPI Physical Exam Vitals and nursing note reviewed. Constitutional: Appearance: Normal appearance. HENT: Head: Normocephalic and atraumatic. Right Ear: Tympanic membrane, ear canal and external ear normal. Left Ear: Tympanic membrane, ear canal and external ear normal. Nose: Nose normal. Mouth/Throat: Mouth: Mucous membranes are moist. Pharynx: Oropharynx is clear. Eyes: Extraocular Movements: Extraocular movements intact. Conjunctiva/sclera: Conjunctivae normal. Pupils: Pupils are equal, round, and reactive to light. Cardiovascular: Rate and Rhythm: Normal rate. Pulmonary: Effort: Pulmonary effort is normal. Breath sounds: Decreased air movement present. Wheezing and rhonchi present. No rales. Skin: General: Skin is warm. Neurological: General: No focal deficit present. Mental Status: He is alert and oriented to person, place, and time. Psychiatric: Mood and Affect: Mood normal. Behavior: Behavior normal. Recent Results (from the past 1 hour(s)) POCT SARS-COV-2/FLU/RSV PCR SYMPTOMATIC manually resulted Collection Time: 11/17/23 5:51 PM Result Value Ref Range POC Coronavirus 2019, PCR Not Detected Not Detected POC Flu A Result Not Detected Not Detected POC Flu B Result Not Detected Not Detected POC RSV PCR Not Detected Not Detected Assessment/Plan/MDM Cheryl was seen today for uri. Diagnoses and all orders for this visit: COPD with exacerbation (Multi) (Primary) - doxycycline (Adoxa) 100 mg tablet; Take 1 tablet (100 mg) by mouth 2 times a day for 7 days. Takewith a full glass of water and do not lie down for at least 30 minutes after - predniSONE (Deltasone) 10 mg tablet; Take 6 tablets (60 mg) by mouth once daily for 1 day, THEN 5tablets (50 mg) once daily for 1 day, THEN 4 tablets (40 mg) once daily for 1 day, THEN 3 tablets (30 mg) once daily for 1 day, THEN 2 tablets (20 mg) once daily for 1 day, THEN 1 tablet (10 mg) oncedaily for 1 day. - XR chest 2 views; Future Acute upper respiratory infection - POCT SARS-COV-2/FLU/RSV PCR SYMPTOMATIC manually resulted Pt states he would like to wait for CXR to see if he improves with medication. Discussed worsening symptoms and when to seek higher level of care. Encouraged Duoneb at least TID if not q4-6 hours PRN. Encouraged pt to continue otc cold remedies PRN, push PO fluids and rest. Patient's clinical presentation is otherwise unremarkable at this time. Patient is discharged with instructions to follow-upwith primary care or seek emergency medical attention for worsening symptoms or any new concerns. I did personally review Cehryl's past medical history, surgical history, social history, as well as family history (when relevant). In this case, I also oversaw the his drug management by reviewing his medication list, allergy list, as well as the medications that I prescribed during the UC courseand/or recommended as an out-patient (including possible OTC medications such as acetaminophen, NSAIDs , etc). After reviewing the items above, I did look at previous medical documentation, such as recent hospitalizations, office visits, and/or recent consultations with PCP/specialist. SDOH: Another factor that I considered in Cheryl's care was his Social Determinants of Health (SDOH). During this UC encounter, he did not have social determinants of health. Those SDOH influencing Cheryl's care are: none Quincy Abebe CNP [facility] [phone] documented [facility] this [facility] Work Phone: [phone] Telephone encounter Note* Telephone Encounter - Narda Arias - 09/03/2023 10:37 AM EDT Daughter called back and patient was scheduled for 03/08/[address] Fraire. [facility]07-03-2024 Miscellaneous Notes* Telephone Encounter - Narda Arias - 09/03/2023 10:37 AM EDT Daughter called back and patient was scheduled for 03/08/[address] Fraire. * Telephone Encounter - Lo Disla - 09/03/2023 10:22 AM EDT First Attempt- Called pts daughter and left vm to call back to schedule * Telephone Encounter - Arslan Radford LPN - 09/02/2023 1:53 PM EDT Please call daughter Ashtyn, at [phone], to schedule his 6 mo f/u. documented in this encounterFire[facility] Telephone encounter Note * Telephone Encounter - Lo Disla - 09/03/2023 10:22 AM EDT First Attempt- Called pts daughter and left vm to call back to schedule [facility]07-02-2024 Telephone encounter Note* Telephone Encounter - Arslan Radford LPN - 09/02/2023 1:53 PM EDT Please call daughter Ashtyn, at [phone], to schedule his 6 mo f/u. [facility]07-02-2024 NoteHNO ID: [id number] Author: IDANIA FRAIRE, DO Service: ? Author Type: Physician Type: Progress Notes Filed: 09/02/2023 15:55 Note Text: [facility] SECTION OF [facility] CARDIOLOGY [facility] OUTPATIENT VISIT DATE September 02, 2023 PRIMARY CARE PHYSICIAN: Ashlee Lanier [address] [address] HISTORY OF PRESENT ILLNESS: Mr. De La Fuente is a 72 year old male. The patient returns for follow-up secondary history of chronic diastolic heart failure, coronary artery disease with previous stenting of the left circumflex, paroxysmal atrial fibrillation on long-term anticoagulation with Xarelto, hypertension, hyperlipidemia, mild aortic stenosis with mild ascending aortic dilatation. He denies chest discomfort, dyspnea orthopnea, paroxysmal nocturnal dyspnea, palpitations, near-syncope or syncope. He denies GI/ bleeding or melena. PLAN AND RECOMMENDATIONS: The patient remained stable without apparent symptoms that would suggest angina or cardiac decompensation. Heart rate, blood pressure and recent cholesterol profile are favorable his current off medical therapy. We have therefore made no additions or changes. Dietary and lifestyle modification was reemphasized to facilitate risk factor reduction. We will look forward to reevaluating him in 6 months time. Vitals: BP 102/68 Pulse 71 Ht 182.9 cm (6') Wt 81.1 kg (178 lb 12.7 oz) SpO2 99% BMI 24.25 kg/m? Physical Exam Vitals reviewed. Constitutional: General: He is not in acute distress. Appearance: Normal appearance. He is well-developed. He is not diaphoretic. HENT: Head: Normocephalic and atraumatic. Right Ear: External ear normal. Left Ear: External ear normal. Nose: Nose normal. Eyes: General: No scleral icterus. Right eye: No discharge. Left eye: No discharge. Pupils: Pupils are equal, round, and reactive to light. Neck: Thyroid: No thyromegaly. Vascular: No carotid bruit or JVD. Cardiovascular: Rate and Rhythm: Normal rate and regular rhythm. Heart sounds: Murmur heard. Crescendo decrescendo systolic murmur is present with a grade of 1/6. No friction rub. No gallop. Pulmonary: Effort: Pulmonary effort is normal. No respiratory distress. Breath sounds: Normal breath sounds. No wheezing or rales. Abdominal: General: Bowel sounds are normal. Palpations: Abdomen is soft. Musculoskeletal: General: Normal range of motion. Cervical back: Neck supple. Skin: General: Skin is warm and dry. Capillary Refill: Capillary refill takes less than 2 seconds. Coloration: Skin is not pale. Neurological: Mental Status: He is alert and oriented to person, place, and time. Cranial Nerves: No cranial nerve deficit. Psychiatric: Mood and Affect: Mood normal. Mood is not anxious or depressed. Behavior: Behavior normal. Thought Content: Thought content normal. Judgment: Judgment normal. Review of Systems Constitutional: Negative for activity change, appetite change, fatigue and unexpected weight change. HENT: Negative for ear pain and trouble swallowing. Eyes: Negative for pain and visual disturbance. Respiratory: Positive for cough and shortness of breath. Negative for chest tightness. Cardiovascular: Negative for chest pain, palpitations and leg swelling. Gastrointestinal: Negative for abdominal pain and blood in stool. Endocrine: Negative for cold intolerance and heat intolerance. Genitourinary: Negative for dysuria, hematuria and scrotal swelling. Musculoskeletal: Negative for arthralgias and myalgias. Skin: Negative for pallor and rash. Allergic/Immunologic: Negative for immunocompromised state. Neurological: Negative for dizziness, syncope and light-headedness. Hematological: Negative for adenopathy. Does not bruise/bleed easily. Psychiatric/Behavioral: Negative for sleep disturbance. The patient is not nervous/anxious. PAST MEDICAL HISTORY Diagnosis Date Asthma CAD (coronary artery disease) Chronic obstructive pulmonary disease (COPD) (HCC) Diastolic congestive heart failure (HCC) 03/11/2022 Dyslipidemia Flutter-fibrillation (HCC) Heart attack (HCC) Hypertension NSTEMI (non-ST elevated myocardial infarction) (HCC) 05/2018 Stroke (HCC) Thyroid disease TIA (transient ischemic attack) PAST SURGICAL HISTORY Procedure Laterality Date CARDIAC CATHETERIZATION HX 05/2017 1 stent Social History Tobacco Use Smoking status: Former Types: Cigarettes Quit date: 03/03/2005 Years since quittin.5 Smokeless tobacco: Current Types: Snuff Vaping Use Vaping Use: Never used Substance Use Topics Alcohol use: Yes Comment: occasional Drug use: No FAMILY HISTORY Problem Relation Age of Onset Ischemic Heart Disease Father other (htn) Maternal Grandmother ALLERGIES Allergen Reactions Codeine Unknown CURRENT MEDICATIONS: spironolactone (ALDACTONE) 25 mg ta (more content not included)...[facility] [id number] History of Present illness Narrative* Idania Fraire, - 09/02/2023 11:49 AM EDT Images from the original note were not included. [facility] OUTPATIENT VISIT DATE September 02, 2023 PRIMARY CARE PHYSICIAN: Ashlee Lanier [facility] [place] [address] HISTORY OF PRESENT ILLNESS: Mr. De La Fuente is a 72 year old male. The patient returns for follow-up secondary history of chronic diastolic heart failure, coronary artery disease with previous stenting of the left circumflex, paroxysmal atrial fibrillation on long-term anticoagulation with Xarelto, hypertension, hyperlipidemia, mild aortic stenosis with mild ascending aortic dilatation. He denies chest discomfort, dyspnea orthopnea, paroxysmal nocturnal dyspnea, palpitations, near- syncope or syncope. He denies GI/ bleeding or melena. PLAN AND RECOMMENDATIONS: The patient remained stable without apparent symptoms that would suggest angina or cardiac decompensation. Heart rate, blood pressure and recent cholesterol profile are favorable his current off medical therapy. We have therefore made no additions or changes. Dietary and lifestyle modification was reemphasized to facilitate risk factor reduction. We will look forward to reevaluating him in 6 months time. Vitals: BP 102/68 Pulse 71 Ht 182.9 cm (6') Wt 81.1 kg (178 lb 12.7 oz) SpO2 99% BMI 24.25 kg/m Physical Exam Vitals reviewed. Constitutional: General: He is not in acute distress. Appearance: Normal appearance. He is well-developed. He is not diaphoretic. HENT: Head: Normocephalic and atraumatic. Right Ear: External ear normal. Left Ear: External ear normal. Nose: Nose normal. Eyes: General: No scleral icterus. Right eye: No discharge. Left eye: No discharge. Pupils: Pupils are equal, round, and reactive to light. Neck: Thyroid: No thyromegaly. Vascular: No carotid bruit or JVD. Cardiovascular: Rate and Rhythm: Normal rate and regular rhythm. Heart sounds: Murmur heard. Crescendo decrescendo systolic murmur is present with a grade of 1/6. No friction rub. No gallop. Pulmonary: Effort: Pulmonary effort is normal. No respiratory distress. Breath sounds: Normal breath sounds. No wheezing or rales. Abdominal: General: Bowel sounds are normal. Palpations: Abdomen is soft. Musculoskeletal: General: Normal range of motion. Cervical back: Neck supple. Skin: General: Skin is warm and dry. Capillary Refill: Capillary refill takes less than 2 seconds. Coloration: Skin is not pale. Neurological: Mental Status: He is alert and oriented to person, place, and time. Cranial Nerves: No cranial nerve deficit. Psychiatric: Mood and Affect: Mood normal. Mood is not anxious or depressed. Behavior: Behavior normal. Thought Content: Thought content normal. Judgment: Judgment normal. Review of Systems Constitutional: Negative for activity change, appetite change, fatigue and unexpected weight change. HENT: Negative for ear pain and trouble swallowing. Eyes: Negative for pain and visual disturbance. Respiratory: Positive for cough and shortness of breath. Negative for chest tightness. Cardiovascular: Negative for chest pain, palpitations and leg swelling. Gastrointestinal: Negative for abdominal pain and blood in stool. Endocrine: Negative for cold intolerance and heat intolerance. Genitourinary: Negative for dysuria, hematuria and scrotal swelling. Musculoskeletal: Negative for arthralgias and myalgias. Skin: Negative for pallor and rash. Allergic/Immunologic: Negative for immunocompromised state. Neurological: Negative for dizziness, syncope and light-headedness. Hematological: Negative for adenopathy. Does not bruise/bleed easily. Psychiatric/Behavioral: Negative for sleep disturbance. The patient is not nervous/anxious. PAST MEDICAL HISTORY Diagnosis Date Asthma CAD (coronary artery disease) Chronic obstructive pulmonary disease (COPD) ([facility]) Diastolic congestive heart failure ([facility]) 03/11/2022 Dyslipidemia Flutter-fibrillation ([facility]) Heart attack ([facility]) Hypertension NSTEMI (non-ST elevated myocardial infarction) ([facility]) 05/2018 Stroke ([facility]) Thyroid disease TIA (transient ischemic attack) PAST SURGICAL HISTORY Procedure Laterality Date CARDIAC CATHETERIZATION HX 05/2017 1 stent Social History Tobacco Use Smoking status: Former Types: Cigarettes Quit date: 03/03/2005 Years since quittin.5 Smokeless tobacco: Current Types: Snuff Vaping Use Vaping Use: Never used Substance Use Topics Alcohol use: Yes Comment: occasional Drug use: No FAMILY HISTORY Problem Relation Age of Onset Ischemic Heart Disease Father other (htn) Maternal Grandmother ALLERGIES Allergen Reactions Codeine Unknown CURRENT MEDICATIONS: spironolactone (ALDACTONE) 25 mg tablet Take 0.5 tablets by mouth once daily. metoprolol tartrate, short acting, (LOPRESSOR) 25 mg tablet 0.5 tablets by ORAL/FEEDING TUBE route once daily. furosemide (LASIX) 20 mg tablet Take 1 tablet by mouth once daily. TRELEGY ELLIPTA 100-62.5-25 mcg inhalation powder INHALE 1 PUFF DAILY DIRECTED montelukast (SINGULAIR) 10 mg tablet Take 10 mg by mouth daily at bedtime. predniSONE (DELTASONE) 10 mg tablet Take 10 mg by mouth once daily. amLODIPine (NORVASC) 5 mg tablet Take by mouth. losartan (COZAAR) 100 mg tablet sertraline (ZOLOFT) 100 mg tablet rivaroxaban (XARELTO) 20 mg tablet Take 1 tablet by mouth daily with dinner. atorvastatin (LIPITOR) 80 mg tablet 1 tablet by ORAL/FEEDING TUBE route daily at bedtime. senna-docusate (SENNA-S) 8.6-50 mg per tablet 1 tablet by ORAL/FEEDING TUBE route twice daily. ipratropium-albuterol (DUONEB) 0.5 mg-3 mg(2.5 mg base)/3 mL nebu Inhale 3 mL as instructed every 4hours as needed. clopidogrel (PLAVIX) 75 mg tablet Take 1 tablet by mouth once daily. Do NOT stop taking without talking to your blind cleaner. levothyroxine (SYNTHROID) 75 mcg tablet Take 75 mcg by mouth daily before breakfast. MULTIVITAMIN TAB Take one(1) tablet daily. albuterol sulfate(VENTOLIN HFA 90 MCG/ACTUATION AEROSOL INHALER) 2 puffs every 4 hours as needed nitroglycerin sublingual (NITROSTAT) 0.4 mg SL tablet Dissolve 1 tablet under the tongue every 5 minutes as needed. Idania Fraire DO, FAC, FAC [employer] Licensee, [facility] Ambulatory Cardiology [employer] Licensee, [facility] Cardiac Rehabilitation [employer] Licensee, [facility] Cardiac Rehabilitation [employer] Licensee, [facility] Cong[facility]ive [facility] Failure [facility] [employer] Licensee, [facility] Ambulatory Cardiology Clinical Pan Operator Profressor of Medicine, [facility] Staff Intake Counselor, Pinky Camarena Department of Cardiovascular Medicine/Heart and Vascular [place], [facility] Please note: This note has been produced using speech recognition software and may contain errors related to that system including leonides, punctuation, spelling, words, gender and phrases that may be inappropriate. documented in this encounterFirelands [facility]01-[facility] Nurse Note* Ramila Sommers RN - 03/21/2023 1:53 PM EST Discharge Note: 03/20/2023 1340 Discharge instructions and pt responsibilities reviewed with pt, pt daughter, and copy given. COPD, cellulitis, new oxygen, education reviewed with pt, pt daughter, andinformation sheets given. Pt and daughter verbalizes understanding of instructions received, verbalizes understanding of when to seek medical attention, denies any home going or personal care needs outside of [facility]. Denies further questions or concerns. Reviewed follow up appts with pt, pt daughter, and verbalizes understanding. Catrina LLAMAS [facility]01-19-2024 Nurse Note* Ramila Sommers RN - 03/21/2023 1:53 PM EST Discharge Note: 03/20/2023 1340 Discharge instructions and pt responsibilities reviewed with pt, pt daughter, and copy given. COPD, cellulitis, new oxygen, education reviewed with pt, pt daughter, andinformation sheets given. Pt and daughter verbalizes understanding of instructions received, verbalizes understanding of when to seek medical attention, denies any home going or personal care needs outside of [facility]. Denies further questions or concerns. Reviewed follow up appts with pt, pt daughter, and verbalizes understanding. Catrina LLAMAS * Antoinette Carrera RN - 03/21/2023 11:00 AM EST Pt daughter at bedside and concerned about walking SPO2 study and wanting to include stairs. Also concerned that patient complained of sudden sharp pain in right leg just above the calf. Dr. Langfordnotified and in to see patient. * Mariana Zamudio RN - 03/20/2023 12:40 PM EST Met with Mr Cheryl De La Fuente in the ICU room 330 and his daughter related to pulmonary rehab. Explained the days and times of the program what it entailed and the length of program. Provided a pulmonary rehab folder which contained all information about the program and contact number for us. I also provided a educational booklet Living with Chronic Obstructive Pulmonary Disease COPD. Patient follows with a medicare compliance auditor Dr Ocampo in [place]. They both deny any further questions at this time. Iexplained to them we will reach out the first week of April. * Selma Gandara RRT - 03/19/2023 9:30 AM EST COPD Education Patient Characteristics: Pt. Laying in bed on and off sleeping pt is wearing 2L NC no distress noted. Comorbidities: Exacerbation last year: Moderate: >= 2 exacerbations or >= 1 exacerbation leading to hospitalization Spirometry: Not recent Date: FVC: ( %) FEV1: ( %) FEV1/FVC: ( %) Uses of Oxygen/CPAP/BIPAP: Prior to this admission pt. Was not requiring any o2 CPAP/BIPAP. Smoking status: Smoker: Former PPY: 40 Quit date: unsure Smoking cessation counseling: Booklet given: Pulmonary physician: yes Name: Dr. Ocampo Date last seen: about 6 months ago Pharmacotherapy: Maintenance medications LABA, LAMA, LABA/LAMA, ICS/LABA, ICS/LAMA, ICS/LABA/LAMA, Name of the medication: Trelegy, Albuterol inhaler, Duoneb Nebulizer's. Prednisone: No Theophylline: No Roflumilast: No Macrolides: No If not on maintenance meds: Consider LAMA or LAMA/LABA Consider ICS (if peripheral eosinophilia >300cells/microl, COPD exacerbation requiring hospitalization, >= 2 moderated COPD exacerbation, History of or concomitant asthma) If low inspiratory force or challenges with inhalers Consider Nebulizers Consider RESPIMAT COPD Education COPD patient education book: Yes Inhaled medication teach-back: Yes RENEA, other videos: Patient demonstrated understanding/teach back method: Yes Home Oxygen Evaluation: Pt. Will need a home oxygen evaluation upon discharge. Even if pt. Weaned to RA at rest Pt. Daughter would like him walked to see if he needs the oxygen with activity. Daughter feels his SOB is most when walking that is why he as been so inactive. Pulmonary Rehabilitation referral: Already attended: When: Info in COPD patient education book Vaccines Influenza: Pneumococcal: COVID 19: Pertussis: Recommendations: Follow up with pulmonary within two weeks of discharge may benefit documented in this [facility] Work Phone: 1(847) 358-444401-19-2024 History of Present illness Narrative* Azul Torres, ElliD - 03/21/2023 1:38 PM EST Medication Education Medication education for Cheryl De La Fuente was provided to the patient and family for the following medication(s): Augmentin Acidophilus Betadine Medication education provided by a Pharmacist: ADR Counseling Medication interactions Dose, frequency, storage How to take and what to do if a dose is missed Proper dose, indication, possible ADRs Benefits of taking the medication Importance of compliance Necessary labs and/or other monitoring Any drug interactions (including OTCs and herbvals)and importance of notifying a healthcare provider of any medication changes Potential duration of therapy Identified potential barriers to education: None Method(s) of Education: Verbal Written materials provided and reviewed An opportunity to ask questions and receive answers was provided. Assessment of understanding the patient and family: 2= meets goals/outcomes Additional Notes (if applicable): - Advised on patient's low BP during admission and to hold the losartan; patient's daughter expressed concern about holding it for a long period of time due to his h/o DE and heart disease --> pharmacist advised to restart tomorrow is desired and to track BP @ home with home monitor, which he will seek to obtain - Encouraged to finish full course of antibiotics so as to reduce the risk of recurrent/resistant infection - Advised to come back to the ED if he develops any worsening redness/swelling or discharge at the wound site, or systemic signs/symptoms of infection (ex. Fever/chills) - Confirmed pharmacy of choice for where new medicines are to be sent ([facility] Azul Torres PharmD, BCPS * Odette Valencia, OIL WELL CABLE TOOL OPERATOR - 03/21/2023 11:45 AM EST SpO2 on room air at rest 91-94%. Walking patient on room air SpO2 87%. Placed on 2L NC while walking SpO2 942-94%. Doctor notified. * Deepika Christianson, PT - 03/21/2023 11:02 AM EST Physical Therapy Physical Therapy Evaluation Patient Name: Cheryl De La Fuente Today's Date: 03/21/2023 Time Calculation Start Time: 945 Stop Time: 957 Time Calculation (min): 12 min Assessment/Plan Skilled PT intervention is indicated due to patient presents with deficits in transfers, gait, stair negotiation, strength, activity tolerance, and safety awareness. Patient may benefit from use of cane for ambulation due to weakness of RLE and gait impairments. Patient educated on importance of getting up and ambulating and frequently up to chair to assist with lung health. He then agreed to getting up to chair with therapy instead of back to bed. Plan to continue with skilled PT intervention to improve strength, mobility, balance and to reduce fall risk. PT Assessment PT Assessment Results: Decreased strength, Decreased endurance, Impaired balance, Decreased mobility, Decreased safety awareness, Decreased skin integrity Rehab Prognosis: Good End of Session Communication: Bedside nurse Assessment Comment: patient would likely benefit from using cane due to RLE weakness and gait deficits End of Session Patient Position: Up in chair IP OR SWING BED PT PLAN Inpatient or Swing Bed: Inpatient PT Plan Treatment/Interventions: Bed mobility, Transfer training, Gait training, Neuromuscular re-education, Strengthening, Endurance training, Therapeutic exercise, Therapeutic activity, Home exercise program PT Plan: Skilled PT PT Frequency: 5 times per week PT Discharge Recommendations: Low intensity level of continued care Equipment Recommended upon Discharge: Straight cane PT Recommended Transfer Status: Stand by assist Subjective General Visit Information: General Reason for Referral: impaired mobility Referred By: Primitivo Past Medical History Relevant to Rehab: stroke wiht R side affect, afib, COPD, CAD, HTN, hypothyroid, former smoker Family/Caregiver Present: No Co-Treatment: OT Co-Treatment Reason: co-eval with OT Jade dugan optimize patient safety Prior to Session Communication: Bedside nurse (per nurse Karen patient hasn't been OOB today) Patient Position Received: Bed, 3 rail up, Alarm on General Comment: patient awake in bed on arrival, agreeable to eval. states he would like to go back to bed after eval and sleep; Home Living: Home Living Home Living Comments: patient typically lives home alone, no device to ambulate with ; plan is for patient to stay with daughter after hospitalization in order for her to assist him wiht his needs Prior Level of Function: Prior Function Per Pt/Caregiver Report Level of [place]: Independent with ADLs and functional transfers, Independent with homemaking with ambulation Precautions: Precautions Medical Precautions: Fall precautions Precautions Comment: wound R index finger with bandaging, cellulitis R leg wiht bandaging Vital Signs: Vital Signs SpO2: 92 % (room air (after short ambulation)) Objective Pain: Pain Assessment Pain Assessment: 0-10 Pain Score: 0 - No pain Cognition: Cognition Overall Cognitive Status: Within Functional Limits General Assessments: Activity Tolerance Endurance: Decreased tolerance for upright activites (gets SOB, coughing to clear chest/throat after ambulation; ambulation in short bouts) Sensation Light Touch: No apparent deficits Strength Strength Comments: RLE: hip flexion=3-/5; knee grossly 3/5 LLE: grossly 4/5 Strength Strength Comments: RLE: hip flexion=3-/5; knee grossly 3/5 LLE: grossly 4/5 Postural Control Postural Control: Within Functional Limits Static Sitting Balance Static Sitting-Balance Support: Bilateral upper extremity supported, Feet supported Static Sitting-Level of Assistance: Independent Dynamic Standing Balance Dynamic Standing-Balance Support: No upper extremity supported Dynamic Standing-Balance: Turning Dynamic Standing-Comments: SBA Functional Assessments: Bed Mobility Bed Mobility: Yes Bed Mobility 1 Bed Mobility 1: Supine to sitting Level of Assistance 1: Independent Transfers Transfer: Yes Transfer 1 Transfer From 1: Sit to, Stand to Transfer to 1: Stand, Sit Technique 1: Sit to stand, Stand to sit Transfer Level of Assistance 1: Close supervision Ambulation/Gait Training Ambulation/Gait Training Performed: Yes Ambulation/Gait Training 1 Surface 1: Level tile Device 1: No device Assistance 1: Close supervision Quality of Gait 1: Decreased step length, Diminished heel strike (wide PATY, no heel strike initial contact or push off terminal stance RLE; weaknes RLE; no trunk rotaiton or arm swing) Comments/Distance (ft) 1: 20', 30' seated rest breaks to catch his breath and due to coughing fits with ambulation Outcome Measures: [facility] Basic Mobility Turning from your back to your side while in a flat bed without using bedrails: None Moving from lying on your back to sitting on the side of a flat bed without using bedrails: None Moving to and from bed to chair (including a wheelchair): A little Standing up from a chair using your arms (e.g. wheelchair or bedside chair): None To walk in hospital room: A little Climbing 3-5 steps with railing: A little Basic Mobility - Total Score: 21 Encounter Problems Encounter Problems (Active) PT Problem PT Goal 1 Start: 03/21/23 Expected End: 04/03/23 Cheryl De La Fuente will transfer sit to and from stand using least restrictive assistive device as appropriate and agreeable to, independently PT Goal 2 Start: 03/21/23 Expected End: 04/03/23 Cheryl De La Fuente will ambulate 150 ft with assistive device as appropriate, level surface, good balance, steady mod Indep PT Goal 3 Start: 03/21/23 Expected End: 04/03/23 Patient will participate in 30 min PT session without fatigue with 2 or less 1 min seated rest breaks Pain - Adult Education Documentation No documentation found. Education Comments No comments found. * Jade Brooks, OT - 03/21/2023 9:47 AM EST Occupational Therapy Evaluation Patient Name: Cheryl De La Fuente Today's Date: 03/21/2023 Time Calculation Start Time: 946 Stop Time: 958 Time Calculation (min): 12 min Assessment: OT Assessment: Pt is 72 year old male admitted for COPD. Pt performing mobility with SBA. Pt would benefit from skilled OT services for additional education and mobility for endurance and energy conservation. Prognosis: Good Evaluation/Treatment Tolerance: Patient limited by fatigue End of Session Communication: Bedside nurse End of Session Patient Position: Up in chair OT Assessment Results: Decreased ADL status, Decreased safe judgment during ADL, Decreased endurance, Decreased functional mobility, Decreased IADLs Prognosis: Good Evaluation/Treatment Tolerance: Patient limited by fatigue Plan: Treatment Interventions: ADL retraining, Functional transfer training, UE strengthening/ROM, Endurance training, Compensatory technique education OT Frequency: 2 times per week OT Discharge Recommendations: Low intensity level of continued care Equipment Recommended upon Discharge: Straight cane (Shower chair) OT Recommended Transfer Status: Assist of 1 Treatment Interventions: ADL retraining, Functional transfer training, UE strengthening/ROM, Endurance training, Compensatory technique education Subjective Current Problem: 1. COPD (chronic obstructive pulmonary disease) (CMS/HCC) CANCELED: Transthoracic Echo (TTE) Complete CANCELED: Transthoracic Echo (TTE) Complete 2. Shock circulatory (CMS/HCC) CANCELED: Transthoracic Echo (TTE) Complete CANCELED: Transthoracic Echo (TTE) Complete 3. Septic shock (CMS/HCC) Transthoracic Echo (TTE) Complete Transthoracic Echo (TTE) Complete 4. Cellulitis of right lower extremity Vascular US PVR without exercise Vascular US PVR without exercise 5. Other specified peripheral vascular diseases (CMS/HCC) Vascular US PVR without exercise Vascular US PVR without exercise 6. Peripheral vascular disease, unspecified (CMS/HCC) Vascular US PVR without exercise 7. Difficulty walking General: General Reason for Referral: COPD Referred By: Primitivo Past Medical History Relevant to Rehab: stroke (residual R side affected), afib, COPD, CAD, HTN, hypothyroid, former smoker Family/Caregiver Present: No Co-Treatment: PT Co-Treatment Reason: to optimize mobility and safety while focusing on discipline specific needs Prior to Session Communication: Bedside nurse Patient Position Received: Bed, 3 rail up, Alarm on General Comment: Pt supine with HOB elevated. RN cleared for OT. Pt agreeable to work with therapy. Precautions: Medical Precautions: Fall precautions Precautions Comment: wound R index finger with bandaging, cellulitis R leg with bandaging Vital Signs: SpO2: 92 % Pain: Pain Assessment Pain Assessment: 0-10 Pain Score: 0 - No pain Objective Cognition: Overall Cognitive Status: Within Functional Limits Orientation Level: Oriented X4 Home Living: Type of Home: House Lives With: Alone Home Living Comments: Planning to stay with daughter following discharge Prior Function: Level of [place]: Independent with ADLs and functional transfers, Independent with homemaking with ambulation ADL Assistance: Independent (Requiring additional time to perform) Homemaking Assistance: Independent Ambulatory Assistance: Independent (no device) IADL History: ADL: Eating Assistance: Independent Grooming Assistance: Stand by (Anticipated) Bathing Assistance: Minimal (Anticipated) UE Dressing Assistance: Stand by (Anticipated) LE Dressing Assistance: Minimal (Anticipated) Toileting Assistance with Device: Minimal (Anticipated) Activity Tolerance: Endurance: Decreased tolerance for upright activites Activity Tolerance Comments: sit>stand x2 without device. Functional mobility for household distance with SBA, incresaed SOB and coughing with mobility. spO2 92% following mobility. Bed Mobility/Transfers: Bed Mobility Bed Mobility: Yes Bed Mobility 1 Bed Mobility 1: Supine to sitting Level of Assistance 1: Independent Transfers Transfer: Yes Transfer 1 Transfer From 1: Sit to, Stand to Transfer to 1: Stand, Sit Technique 1: Sit to stand, Stand to sit Transfer Level of Assistance 1: Close supervision (SBA) Sitting Balance: Standing Balance: Static Standing Balance Static Standing-Balance Support: No upper extremity supported Static Standing-Level of Assistance: Close supervision (SBA) Dynamic Standing Balance Dynamic Standing-Balance Support: No upper extremity supported Dynamic Standing-Comments: SBA Modalities: Vision:Vision - Basic Assessment Current Vision: No visual deficits Sensation: Sensation Comment: Denies numbness or tingling Strength: Strength Comments: BUE WFL ROM; BUE grossly 4/5 Perception: Coordination: Hand Function: Gross Grasp: Functional Coordination: Functional Outcome Measures:[facility] Daily Activity Putting on and taking off regular lower body clothing: A little Bathing (including washing, rinsing, drying): A little Putting on and taking off regular upper body clothing: A little Toileting, which includes using toilet, bedpan or urinal: A little Taking care of personal grooming such as brushing teeth: A little Eating Meals: None Daily Activity - Total Score: 19 Education Documentation Precautions, taught by Jade Guy OT at 03/21/2023 11:06 AM. Learner: Patient Readiness: Acceptance Method: Explanation Response: Verbalizes Understanding ADL Training, taught by Jade Guy OT at 03/21/2023 11:06 AM. Learner: Patient Readiness: Acceptance Method: Explanation Response: Verbalizes Understanding Education Comments No comments found. OP EDUCATION: Goals: Encounter Problems Encounter Problems (Active) ADLs Patient with complete lower body dressing with modified independent level of assistance with PRN adaptive equipment (Progressing) Start: 03/21/23 Expected End: 04/04/23 Patient will complete toileting including hygiene clothing management/hygiene with modified independent level of assistance. (Progressing) Start: 03/21/23 Expected End: 04/04/23 COGNITION/SAFETY Pt able to integrate 1-2 energy conservation techniques into ADL or therapeutic activities without verbal cuing (Progressing) Start: 03/21/23 Expected End: 04/04/23 TRANSFERS Patient will complete functional transfers with least restrictive device with modified independent level of assistance. (Progressing) Start: 03/21/23 Expected End: 04/04/23 * Paige Bhardwaj MD - 03/20/2023 2:13 PM EST Cheryl De La Fuente is a 72 y.o. male on day 2 of admission presenting with COPD (chronic obstructive pulmonary disease) ([facility]). Subjective Seen in room, sitting in chair. Says there is no pain in his leg. No fevers or chills. No other complaints. Right finger is improving with no pain. He does feel generally weak. Per nursing no acute events through the night. Objective Last Recorded Vitals BP 118/77 Pulse 72 Temp 36.6 C (97.9 F) (Temporal) Resp 16 Wt 91.3 kg (201 lb 4.5 oz) SpO2 91% Intake/Output last 3 Shifts: Intake/Output Summary (Last 24 hours) at 03/20/2023 1413 Last data filed at 03/20/2023 1319 Gross per 24 hour Intake 900 ml Output 300 ml Net 600 ml Admission Weight Weight: 89.8 kg (198 lb) (03/17/232000) Daily Weight 03/20/23 : 91.3 kg (201 lb 4.5 oz) Image Results Vascular [place] [id number], Vascular Lab Report [facility] US PVR WITHOUT EXERCISE Patient Name: CHERYL Wade Physician: [id number] Odom MD Study Date: 03/19/2023 Ordering Provider: [id number] PALOMO FARNSWORTH MRN/PID: [id number] Fellow: Technologist: James Mandel RVT Date of /Age: 9 1950 / 72 years Technologist 2: Camille Underwood RVT/AB Gender: M Admission Status: Inpatient Location Performed: [facility] Diagnosis/ICD: Peripheral vascular disease, unspecified-I73.9 CPT Codes: 85956 Peripheral artery MARISSA Only CONCLUSIONS: Right Lower PVR: No evidence of arterial occlusive disease in the right lower extremity at rest. Normal digital perfusion noted. Triphasic flow is noted in the right posterior tibial artery, right dorsalis pedis artery and right common femoral artery. Left Lower PVR: No evidence of arterial occlusive disease in the left lower extremity at rest. Normal digital perfusion noted. Triphasic flow is noted in the left dorsalis pedis artery, left common femoral artery and left posterior tibial artery. Imaging & Doppler Findings: RIGHT Lower PVR Pressures Ratios Right Posterior Tibial (Ankle) 176 mmHg 1.26 Right Dorsalis Pedis (Ankle) 178 mmHg 1.27 Right Digit (Great Toe) 111 mmHg 0.79 LEFT Lower PVR Pressures Ratios Left Posterior Tibial (Ankle) 159 mmHg 1.14 Left Dorsalis Pedis (Ankle) 151 mmHg 1.08 Left Digit (Great Toe) 110 mmHg 0.79 Right Left Brachial Pressure 140 mmHg 140 mmHg [id number] Terell Odom MD Final XR hand right 3+ views Narrative: Interpreted By: Tariq Zamora, STUDY: XR HAND RIGHT 3+ VIEWS 03/19/2023 1:43 pm INDICATION: Signs/Symptoms:Index finger paranychion COMPARISON: None. ACCESSION NUMBER(S): [id number] ORDERING CLINICIAN: NICOLE REAVES TECHNIQUE: Three views of the right hand including AP, oblique and lateral projections were obtained. FINDINGS: There is no evidence of acute fracture or dislocation identified. Moderate to severe hypertrophic degenerative changes are seen in the 2nd distal interphalangeal joint. [id number]-[id number] degenerative changes are seen in the 3rd distal interphalangeal joint. Mild degenerative changes are seen in the remaining interphalangeal joints. Impression: 1. No fracture or dislocation. 2. Degenerative changes, as described above. MACRO: None. Signed by: Tariq Zamora 03/19/2023 3:42 PM Dictation workstation: [id number] CT foot right w IV contrast, CT tibia fibula right w IV contrast Narrative: Interpreted By: Jose Juan De Leon, STUDY: CT FOOT RIGHT W IV CONTRAST; CT TIBIA FIBULA RIGHT W IV CONTRAST; ; 03/18/2023 4:38 pm INDICATION: Signs/Symptoms:eval infection; Signs/Symptoms:infection. Right lower extremity wound with concern for infection, dog scratch dim 3 weeks ago, wound became painful in red 10 days ago. Skin discontinuity along medial posterior right ankle COMPARISON: None. ACCESSION NUMBER(S): [id number]; [id number] ORDERING CLINICIAN: PALOMO FARNSWORTH TECHNIQUE: Intravenous contrast enhanced CT images of the right leg/foot were obtained using 70 mL Omnipaque 350. FINDINGS: The lateral aspect of the right leg has edema/inflammation in the subcutaneous tissue extending inferiorly from the knee joint to the lateral malleolus. The medial aspect of the left lower extremity has ill-defined areas of edema versus cellulitis proximally from the knee to the mid calf with additional area of edema/inflammation in the subcutaneous tissues along the medial malleolus extending nearly to the plantar aspect of the foot. No localized fluid collections within the areas of edema/inflammation suggestive of abscess are noted. The medial aspect of the right knee joint has a 2 cm diameter 5.7 cm length popliteal cyst containing for and possibly 5 calcified loose bodies, the largest 1.3 cm. No intramuscular mass/abscess is noted. The popliteal artery has mixed density plaque with less than 20% stenosis. Three-vessel runoff is present distally with the anterior tibial and posterior tibial vessels crossing into the foot. No fractures or dislocations of the tibia/fibula/foot are noted. No bony erosions suggestive of osteomyelitis are noted. Impression: 1. Areas of subcutaneous edema extends along the lateral aspect of the calf as well as the proximal medial aspect of the calf and along the medial malleolus. No localized collection suggestive of abscess is noted. No underlying bony abnormality suggestive of osteomyelitis are noted. 2. Right popliteal cyst containing multiple loose bodies. MACRO: None Signed by: Jose Juan De Leon 03/19/2023 1:51 PM Dictation workstation: [id number] XR foot right 3+ views, XR ankle right 3+ views, XR tibia fibula right 2 views Narrative: Interpreted By: Tariq Zamora, STUDY: XR ANKLE RIGHT 3+ VIEWS; XR TIBIA FIBULA RIGHT 2 VIEWS; XR FOOT RIGHT 3+ VIEWS; 03/18/2023 10:22 pm INDICATION: Signs/Symptoms:infection wound , injury; Signs/Symptoms:infection. COMPARISON: None. ACCESSION NUMBER(S): [id number]; [id number]; [id number] ORDERING CLINICIAN: LIBERTAD BERKOWITZ TECHNIQUE: Three views each of the right foot and ankle including AP , oblique and lateral projections and four views of the right tibia/fibula including AP and lateral projections were obtained. FINDINGS: Mild soft tissue swelling is seen throughout the right lower leg. There is no evidence of acute fracture or dislocation identified. The joint spaces are well preserved without significant degenerative changes. Impression: 1. No evidence of acute fracture or dislocation. MACRO: None. Signed by: Tariq Zamora 03/19/2023 11:37 AM Dictation workstation: [id number] Physical Exam Gen: NAD, A&O x 3, Well developed HEENT: Normal size, shape; no masses noted in neck, no lymphadenopathy, no tracheal deviation, non-palpable thyroid Neck: Supple.Trachea central.No neck rigidity. Chest: chest symmetry with respirations, no wheezes, crackles CVS: RRR, no rubs Abd: soft, NT/ND, +BS Ext: Right index finger in bandage. No erythema, swelling or tenderness. No Clubbing/Cyanosis/edema, non-tender.Pulse 2+. Homans Negative. Skin: Right lower leg shows wound wrapped in bandage. No discharge. No surrounding erythema. No ecchymosis, necrosis. Neuro: grossly normal Psy: Mood and affect appropriate Assessment/Plan This patient currently has cardiac telemetry ordered; if you would like to modify or discontinue the telemetry order, click here to go to the orders activity to modify/discontinue the order. Principal Problem: COPD (chronic obstructive pulmonary disease) ([facility]/HCC) Right lower leg cellulitis with open wound Acute renal failure Acute respiratory failure with hypoxia Wounds in hands Sinus tachycardia, resolved Severe sepsis with acute renal failure, resolved Generalized weakness Right index finger Paranychion, improving Plan Wound culture shows strep, waiting final results. Can continue with vancomycin or beta-lactam. Home health care consult, wound care management, antibiotics, PT and OT. Continue with oxygen, wean as tolerated. Appreciate input from podiatry. Noninvasive flow normal. Continue on Plavix, statin. Continue on Xarelto. Appreciate orthopedic input, continue with soaking, antibiotics. Improving. Continue with prednisone, Pulmicort, DuoNebs, oxygen. PT, OT. Possible home health. DVT prophylax on Xarelto. CODE STATUS full. Disposition in 1 to 2 days. Total time spent 35 minutes. Paige Langford MD * Libertad Berkowitz DPM - 03/20/2023 1:53 PM EST Cheryl De La Fuente is a 72 y.o. male on day 2 of admission presenting with COPD (chronic obstructive pulmonary disease) ([facility]/HCC). Subjective This patient was seen bedside late this morning for follow-up of right lower extremity cellulitis and wound. Physical Exam Objective Alert and oriented, pleasant Integument: Skin turgor is thin and atrophic without infection, ecchymosis, odor or necrosis. Skin discontinuity is noted medial posterior right ankle with fibrous base. erythema intensity is nearly resolved and also no longer present to the leg. There is fading erythema to the proximal knee area. No purulence on expression. The predebridement cluster is 4.4 x 1.9 x 0.1 cm and postdebridement is 4.5 x 2 x 0.1 cm now with remaining healthy pale granular base and no deep tissue exposure. The wound is taking up approximately 45% of the measured cluster area. There is no induration, bogginess or fluctuance on palpation Vascular: Hair is not present to lower extremities. Lower extremity edema. DP and PT pulses are unknown. Edema right lower extremity is apparent And decreased Neurological: Epicritic sensation is intact via light touch to lower extremities. Negative Babinski. Negative clonus. Musculoskeletal: Active range of motion digits bilateral. Pain on palpation right lower extremity wound decreased. Rectus right ankle and foot REVIEW OF SYSTEMS denies fever, chill, nausea, vomiting Reduced pain to wound right leg denies calf pain or knee pain Last Recorded Vitals Blood pressure 118/77, pulse 72, temperature 36.6 C (97.9 F), temperature source Temporal, resp. rate 16, height 1.854 m (6' 1), weight 91.3 kg (201 lb 4.5 oz), SpO2 93 %. Intake/Output last 3 Shifts: I/O last 3 completed shifts: In: 3345.8 (36.6 mL/kg) [I.V.:2445.8 (26.8 mL/kg); IV Piggyback:900] Out: 750 (8.2 mL/kg) [Urine:750 (0.2 mL/kg/hr)] Weight: 91.[address] scan and x-ray negative for soft tissue emphysema, acute fracture dislocation, or foreign body white blood cell count downtrending to 14.1 lower extremity arterial noninvasive studies no evidence of arterial occlusive disease with normal digital perfusion noted and triphasic flow. Right digit pressure 0.79 right and left 0.79 left. MARISSA right 1.26-1.27 and left 1.14 and 1.08 wound culture: Strep Blood culture: No growth so far Assessment/Plan Principal Problem: COPD (chronic obstructive pulmonary disease) (CMS/HCC) Infection right lower extremity Wound right lower leg Edema right leg I reviewed and discussed the case including diagnostic data. The following care recommendations andintervention was performed: Debridement: Fifteen blade was used to perform excisional debridement including the subcutaneous layer of the aforementioned ulcer(s) to remove non viable, fibrous, hyperkeratotic, and biofilm tissue. Verbal consent was obtained. Hemostasis controlled with pressure. This was tolerated. Applied wound dressing and dressing orders. Continue offloading. Pre and post debridement measurements as noted.Location: right lower leg Dressing care: betadine wet to dry applied. To transition to silver aglinate Offloading: avoid direct pressure at wound Weightbearing status: as tolerated Infection management: Continue broad Spectrum AB (vanc/zosyn). leukocytosis is still noted but downtrending. Cultures with strep. It does not appear that he tissues are involved. Recommend 2 weeks oftransitional antibiotics according to wound culture results. Leukocytosis with multiple likely sources noted (ankle wound, finger wound, pneumonia, others) Vascular work-up: ordered non invasive vascular studies And there are no abnormalities noted. This was reviewed today Edema: elevate, edith wrap Healing optimization and nutrition: karyn nutritional supplement ordered Additional diagnostic data: will follow charts and test results discharge planning: His significant lower extremity clinical improvement is noted. It is okay to discharge from a podiatry standpoint. To follow-up at [facility] in [place] with Dr. Berkowitz in about 1 week after discharge: Call office at [phone]. Please contact if questions. Libertad Berkowitz DPM FACFAS [facility] Contact via [employer] * Nicole Reaves MD - 03/20/2023 7:40 AM EST Cheryl De La Fuente is a 72 y.o. male on day 2 of admission presenting with COPD (chronic obstructive pulmonary disease) ([facility]). Subjective Pt is in a chair this am. Soak had just concluded. Pain is much reduced. Swelling decreasing per patient. Objective Physical Exam Band-Aid C+D Finger less tender to palp Good cap refill distally ROM improving Last Recorded Vitals Blood pressure 118/77, pulse 72, temperature 36.6 C (97.9 F), temperature source Temporal, resp. rate 16, height 1.854 m (6' 1), weight 91.3 kg (201 lb 4.5 oz), SpO2 94 %. Intake/Output last 3 Shifts: I/O last 3 completed shifts: In: 3345.8 (36.6 mL/kg) [I.V.:2445.8 (26.8 mL/kg); IV Piggyback:900] Out: 750 (8.2 mL/kg) [Urine:750 (0.2 mL/kg/hr)] Weight: 91.3 kg Relevant Results Scheduled medications atorvastatin, 80 mg, oral, Nightly bacitracin, , Topical, TID budesonide, 0.5 mg, nebulization, BID clopidogrel, 75 mg, oral, Daily formoterol, 20 mcg, nebulization, BID ipratropium-albuteroL, 3 mL, nebulization, q4h lactobacillus acidophilus, 1 capsule, oral, Daily levothyroxine, 75 mcg, oral, Daily piperacillin-tazobactam, 4.5 g, intravenous, q6h polyethylene glycol, 17 g, oral, Daily potassium chloride CR, 20 mEq, oral, Daily povidone-iodine, 1 Application, Topical, 4x daily predniSONE, 40 mg, oral, Daily rivaroxaban, 20 mg, oral, Daily with evening meal sertraline, 100 mg, oral, Daily vancomycin (Vancocin) 1,750 mg in dextrose 5 % in water (D5W) 500 mL IV, 1,750 mg, intravenous, q24h Continuous medications PRN medications PRN medications: guaiFENesin, ipratropium-albuteroL, ondansetron, oxygen Results for orders placed or performed during the hospital encounter of 03/17/23 (from the past 24 hour(s)) Vancomycin, Trough Result Value Ref Range Vancomycin, Trough 13.3 5.0 - 20.0 ug/mL CBC Result Value Ref Range WBC 14.1 (H) 4.4 - 11.3 x10*3/uL nRBC 0.0 0.0 - 0.0 /100 WBCs RBC 3.52 (L) 4.50 - 5.90 x10*6/uL Hemoglobin 10.6 (L) 13.5 - 17.5 g/dL Hematocrit 34.5 (L) 41.0 - 52.0 % MCV 98 80 - 100 fL MCH 30.1 26.0 - 34.0 pg MCHC 30.7 (L) 32.0 - 36.0 g/dL RDW 12.8 11.5 - 14.5 % Platelets 291 150 - 450 x10*3/uL Basic metabolic panel Result Value Ref Range Glucose 98 74 - 99 mg/dL Sodium 139 136 - 145 mmol/L Potassium 3.7 3.5 - 5.3 mmol/L Chloride 110 (H) 98 - 107 mmol/L Bicarbonate 23 21 - 32 mmol/L Anion Gap 10 10 - 20 mmol/L Urea Nitrogen 24 (H) 6 - 23 mg/dL Creatinine 0.97 0.50 - 1.30 mg/dL eGFR 82 >60 mL/min/1.73m*2 Calcium 8.2 (L) 8.6 - 10.3 mg/dL This patient currently has cardiac telemetry ordered; if you would like to modify or discontinue the telemetry order, click here to go to the orders activity to modify/discontinue the order. Assessment/Plan Principal Problem: COPD (chronic obstructive pulmonary disease) (CMS/HCC) Improving Right index finger Paranychion Cont soaks and ATB's Will follow clinically, however I am out of town until Mon. Am. Please call if any problems. I spent 22 minutes in the professional and overall care of this patient. Nicole Reaves MD * Selma Morales, PharmD - 03/20/2023 7:21 AM EST Vancomycin Dosing by Pharmacy- FOLLOW UP Cheryl De La Fuente is a 72 y.o. year old male who Pharmacy has been consulted for vancomycin dosing for cellulitis, skin and soft tissue. Based on the patient's indication and renal status this patient is being dosed based on a goal AUC of 500-600. Renal function is currently improving. Current vancomycin dose: 1500 mg given every 24 hours Most recent random level: 13.3 mcg/mL Visit Vitals BP 118/77 Pulse 72 Temp 36.6 C (97.9 F) (Temporal) Resp 16 Lab Results Component Value Date CREATININE 0.97 03/20/2023 CREATININE 1.17 03/19/2023 CREATININE 1.38 (H) 03/17/2023 CREATININE 1.08 06/06/2020 CREATININE 1.12 09/22/2019 Patient weight is No results found for: PTWEIGHT No results found for: CULTURE I/O last 3 completed shifts: In: 3345.8 (36.6 mL/kg) [I.V.:2445.8 (26.8 mL/kg); IV Piggyback:900] Out: 750 (8.2 mL/kg) [Urine:750 (0.2 mL/kg/hr)] Weight: 91.3 kg @IOTHISSHIFT@ No results found for: PATIENTTEMP Assessment/Plan Below goal AUC. Orders placed for new vancomcyin regimen of 1750 mg every 24 hours to begin at 1600today. This dosing regimen is predicted by [employer] to result in the following pharmacokinetic parameters: Regimen: 1750 mg IV every 24 hours. Start time: 16:31 on 03/20/2023 Exposure target: AUC24 (range)400-600 mg/L.hr AUC24,ss: 483 mg/L.hr Probability of AUC24 > 400: 82 % Ctrough,ss: 12.8 mg/L Probability of Ctrough,ss > 20: 10 % Probability of nephrotoxicity (Lodise BEBO 2008): 8 % The next level will be not be obtained as scr improved. May be obtained sooner if scr worsens or ifclinically indicated. Will continue to monitor renal function daily while on vancomycin and order serum creatinine at least every 48 hours if not already ordered. Follow for continued vancomycin needs, clinical response, and signs/symptoms of toxicity. Selma Morales PharmD * Palomo Farnsworth MD - 03/19/2023 10:13 PM EST Cheryl De La Fuente is a 72 y.o. male on day 1 of admission presenting with COPD (chronic obstructive pulmonary disease) ([facility]). Subjective Shortness of breath somewhat better Currently hemodynamically stable maintaining vital saturations Cellulitis still improving marked borders Objective Physical Exam General Appearance: AAO x 3, not in acute distress Skin: skin color pink, warm, and dry; no suspicious rashes or lesions Eyes : PERRL, EOM's intact ENT: mucous membranes pink and moist Neck: normocephalic Respiratory: clear heart: regular rate and rhythm. telemetry shows sinus rhythm Abdomen: Nondistended, positive bowel sounds x4, soft, nontender Extremities: no edema, right lower extremity with cellulitis, ulcer, erythema, warmth, tenderness also right hand with index finger swelling with tenderness to palpation, slightly restricted motion, left hand with ulceration skin, dry skin Peripheral pulses: normal x4 extremities Neuro: alert, coherent and conversant, no focal motor deficits Last Recorded Vitals Blood pressure 134/86, pulse 88, temperature 37.1 C (98.8 F), resp. rate 25, height 1.854 m (6' 1), weight 93.5 kg (206 lb 2.1 oz), SpO2 97 %. Intake/Output last 3 Shifts: I/O last 3 completed shifts: In: 5849.3 (62.6 mL/kg) [P.O.:240; I.V.:3909.3 (41.8 mL/kg); IV Piggyback:1700] Out: 500 (5.3 mL/kg) [Urine:500 (0.1 mL/kg/hr)] Weight: 93.5 kg Relevant Results Scheduled medications atorvastatin, 80 mg, oral, Nightly bacitracin, , Topical, TID budesonide, 0.5 mg, nebulization, BID clopidogrel, 75 mg, oral, Daily formoterol, 20 mcg, nebulization, BID ipratropium-albuteroL, 3 mL, nebulization, q4h lactobacillus acidophilus, 1 capsule, oral, Daily levothyroxine, 75 mcg, oral, Daily piperacillin-tazobactam, 4.5 g, intravenous, q6h polyethylene glycol, 17 g, oral, Daily potassium chloride CR, 20 mEq, oral, Daily povidone-iodine, 1 Application, Topical, 4x daily predniSONE, 40 mg, oral, Daily rivaroxaban, 20 mg, oral, Daily with evening meal sertraline, 100 mg, oral, Daily vancomycin, 1,500 mg, intravenous, q24h Continuous medications PRN medications PRN medications: guaiFENesin, ipratropium-albuteroL, ondansetron, oxygen Vascular US PVR without exercise Result Date: 03/19/2023 [place] [id number], Vascular Lab Report VASC US PVR WITHOUT EXERCISE Patient Name: CHERYL Wade Physician: [id number] Terell Schultz MD Study Date: 03/19/2023 Ordering Provider: [id number] PALOMO FARNSWORTH MRN/PID: [id number] Fellow: Technologist: James Mandel RVT Date of /Age: 9 1950 / 72 years Technologist 2: Camille Underwood RVT/AB Gender: M Admission Status: Inpatient Location Performed: [facility] Diagnosis/ICD: Peripheral vasculardisease, 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 Normal digital perfusion noted. Triphasic flow is noted in the right posterior tibial artery, right dorsalis pedis artery and right common femoral artery. Left Lower PVR: No evidence of arterial occlusive disease in the left lower extremity at rest. Normal digital perfusion noted. Triphasic flow is noted in the left dorsalis pedis artery, left common femoral artery and left posterior tibial artery. Imaging & Doppler Findings: RIGHT Lower PVR Pressures Ratios Right Posterior Tibial (Ankle) 176 mmHg 1.26 Right Dorsalis Pedis (Ankle) 178 mmHg 1.27 Right Digit (Great Toe) 111 mmHg 0.79 LEFT Lower PVR Pressures R atios Left Posterior Tibial (Ankle) 159 mmHg 1.14 Left Dorsalis Pedis (Ankle) 151 mmHg 1.08 Left Digit (Great Toe) 110 mmHg 0.79 Right Left Brachial Pressure 140 mmHg 140 mmHg [id number] Terell Odom MD Final XR hand right 3+ views Result Date: 03/19/2023 Interpreted By: Tariq Zamora, STUDY: XR HAND RIGHT 3+ VIEWS 03/19/2023 1:43 pm INDICATION: Signs/Symptoms:Index finger paranychion COMPARISON: None. ACCESSION NUMBER(S): [id number] ORDERING CLINICIAN: NICOLE REAVES TECHNIQUE: Three views of the right hand including AP, oblique and lateral projections were obtained. FINDINGS: There is no evidence of acute fracture or dislocation identified. Moderate to severe hypertrophic degenerative changes are seen in the 2nd distal interphalangeal joint. [id number] degenerative changes are seen in the 3rd distal interphalangeal joint. Mild degenerative changes are seen in the remaining interphalangeal joints. 1. No fracture or dislocation. 2. Degenerative changes, as described above. MACRO: None. Signed by:Tariq Zamora 03/19/2023 3:42 PM Dictation workstation: [id number] CT foot right w IV contrast Result Date: 03/19/2023 Interpreted By: Jose Juan De Leon, STUDY: CT FOOT RIGHT W IV CONTRAST; CT TIBIA FIBULA RIGHT W IV CONTRAST; ; 03/18/2023 4:38 pm INDICATION: Signs/Symptoms:eval infection; Signs/Symptoms:infection. Right lower extremity wound with concern for infection, dog scratch dim 3 weeks ago, wound became painful in red 10 days ago. Skin discontinuity along medial posterior right ankle COMPARISON: None. ACCESSIONNUMBER(S): [id number]; [id number] ORDERING CLINICIAN: PALOMO FARNSWORTH TECHNIQUE: Intravenous contrast enhanced CT images of the right leg/foot were obtained using 70 mL Omnipaque 350. FINDINGS: The lateral aspect of the right leg has edema/inflammation in the subcutaneous tissue extending inferiorlyfrom the knee joint to the lateral malleolus. The medial aspect of the left lower extremity has ill-defined areas of edema versus cellulitis proximally from the knee to the mid calf with additional area of edema/inflammation in the subcutaneous tissues along the medial malleolus extending nearly tothe plantar aspect of the foot. No localized fluid collections within the areas of edema/inflammation suggestive of abscess are noted. The medial aspect of the right knee joint has a 2 cm diameter 5.7 cm length popliteal cyst containing for and possibly 5 calcified loose bodies, the largest 1.3 cm.No intramuscular mass/abscess is noted. The popliteal artery has mixed density plaque with less than 20% stenosis. Three-vessel runoff is present distally with the anterior tibial and posterior tibial vessels crossing into the foot. No fractures or dislocations of the tibia/fibula/foot are noted. No bony erosions suggestive of osteomyelitis are noted. 1. Areas of subcutaneous edema extends along the lateral aspect of the calf as well as the proximalmedial aspect of the calf and along the medial malleolus. No localized collection suggestive of abscess is noted. No underlying bony abnormality suggestive of osteomyelitis are noted. 2. Right popliteal cyst containing multiple loose bodies. MACRO: None Signed by: Jose Juan De Leon 03/19/2023 1:51 PM Dictation workstation: [id number] CT tibia fibula right w IV contrast Result Date: 03/19/2023 Interpreted By: Jose Juan De Leon, STUDY: CT FOOT RIGHT W IV CONTRAST; CT TIBIA FIBULA RIGHT W IV CONTRAST; ; 03/18/2023 4:38 pm INDICATION: Signs/Symptoms:eval infection; Signs/Symptoms:infection. Right lower extremity wound with concern for infection, dog scratch dim 3 weeks ago, wound became painful in red 10 days ago. Skin discontinuity along medial posterior right ankle COMPARISON: None. ACCESSIONNUMBER(S): [id number]; [id number] ORDERING CLINICIAN: PALOMO FARNSWORTH TECHNIQUE: Intravenous contrast enhanced CT images of the right leg/foot were obtained using 70 mL Omnipaque 350. FINDINGS: The lateral aspect of the right leg has edema/inflammation in the subcutaneous tissue extending inferiorlyfrom the knee joint to the lateral malleolus. The medial aspect of the left lower extremity has ill-defined areas of edema versus cellulitis proximally from the knee to the mid calf with additional area of edema/inflammation in the subcutaneous tissues along the medial malleolus extending nearly tothe plantar aspect of the foot. No localized fluid collections within the areas of edema/inflammation suggestive of abscess are noted. The medial aspect of the right knee joint has a 2 cm diameter 5.7 cm length popliteal cyst containing for and possibly 5 calcified loose bodies, the largest 1.3 cm.No intramuscular mass/abscess is noted. The popliteal artery has mixed density plaque with less than 20% stenosis. Three-vessel runoff is present distally with the anterior tibial and posterior tibial vessels crossing into the foot. No fractures or dislocations of the tibia/fibula/foot are noted. No bony erosions suggestive of osteomyelitis are noted. 1. Areas of subcutaneous edema extends along the lateral aspect of the calf as well as the proximalmedial aspect of the calf and along the medial malleolus. No localized collection suggestive of abscess is noted. No underlying bony abnormality suggestive of osteomyelitis are noted. 2. Right popliteal cyst containing multiple loose bodies. MACRO: None Signed by: Jose Juan De Leon 03/19/2023 1:51 PM Dictation workstation: [id number] XR foot right 3+ views Result Date: 03/19/2023 Interpreted By: Traiq Zamora, STUDY: XR ANKLE RIGHT 3+ VIEWS; XR TIBIA FIBULA RIGHT 2 VIEWS; XR FOOT RIGHT 3+ VIEWS; 03/18/2023 10:22 pm INDICATION: Signs/Symptoms:infection wound , injury; Signs/Symptoms:infection. COMPARISON: None. ACCESSION NUMBER(S): [id number]; [id number]; [id number] ORDERING CLINICIAN: LIBERTAD BERKOWITZ TECHNIQUE: Three views each of the right foot and ankle including AP , oblique and lateral projections and four views of the right tibia/fibula including AP and lateral projections were obtained. FINDINGS: Mild soft tissue swelling is seen throughout the right lower leg. There is no evidence of acute fracture or dislocation identified. The joint spaces are well preserved without significant degenerative changes. 1. No evidence of acute fracture or dislocation. MACRO: None. Signed by: Tariq Zamora 03/19/2023 11:37 AM Dictation workstation: [id number] XR ankle right 3+ views Result Date: 03/19/2023 Interpreted By: Tariq Zamora, STUDY: XR ANKLE RIGHT 3+ VIEWS; XR TIBIA FIBULA RIGHT 2 VIEWS; XR FOOT RIGHT 3+ VIEWS; 03/18/2023 10:22 pm INDICATION: Signs/Symptoms:infection wound , injury; Signs/Symptoms:infection. COMPARISON: None. ACCESSION NUMBER(S): [id number]; [id number]; [id number] ORDERING CLINICIAN: LIBERTAD BERKOWITZ TECHNIQUE: Three views each of the right foot and ankle including AP , oblique and lateral projections and four views of the right tibia/fibula including AP and lateral projections were obtained. FINDINGS: Mild soft tissue swelling is seen throughout the right lower leg. There is no evidence of acute fracture or dislocation identified. The joint spaces are well preserved without significant degenerative changes. 1. No evidence of acute fracture or dislocation. MACRO: None. Signed by: Tariq Zamora 03/19/2023 11:37 AM Dictation workstation: [id number] XR tibia fibula right 2 views Result Date: 03/19/2023 Interpreted By: Tariq Zamora, STUDY: XR ANKLE RIGHT 3+ VIEWS; XR TIBIA FIBULA RIGHT 2 VIEWS; XR FOOT RIGHT 3+ VIEWS; 03/18/2023 10:22 pm INDICATION: Signs/Symptoms:infection wound , injury; Signs/Symptoms:infection. COMPARISON: None. ACCESSION NUMBER(S): [id number]; [id number]; [id number] ORDERING CLINICIAN: LIBERTAD BERKOWITZ TECHNIQUE: Three views each of the right foot and ankle including AP , oblique and lateral projections and four views of the right tibia/fibula including AP and lateral projections were obtained. FINDINGS: Mild soft tissue swelling is seen throughout the right lower leg. There is no evidence of acute fracture or dislocation identified. The joint spaces are well preserved without significant degenerative changes. 1. No evidence of acute fracture or dislocation. MACRO: None. Signed by: Tariq Zamora 03/19/2023 11:37 AM Dictation workstation: [id number] ECG 12 lead Result Date: 03/18/2023 Sinus tachycardia Inferior infarct , age undetermined Abnormal ECG When compared with ECG of 06-JUN-2020 10:21, Previous ECG has undetermined rhythm, needs review Inferior infarct is now Present Nonspecific T wave abnormality no longer evident in Inferior leads Nonspecific T wave abnormality has replaced inverted T waves in Lateral leads See ED provider note for full interpretation and clinical correlation Confirmed by Josie Kramer ([id number]) on 03/18/2023 7:08:27 PM Transthoracic Echo (TTE) Complete Result Date: 03/18/2023 [place] [id number], TRANSTHORACIC ECHOCARDIOGRAM REPORT Patient Name: CHERYL Wade Physician: [id number] Otero MD Study Date: 03/18/2023 Ordering Provider: [id number] PALOMO FARNSWORTH MRN/PID: [id number] Fellow: Nurse: Mariana Zamudio RN Date of /Age: 9 1950 / 72 years Beef Farmer: Faye Zimmerman RVT, RCS Gender: M Additional Staff: Height: 185.42 cm Admit Date: 03/17/2023 Weight: 89.81 kg Admission Status: Inpatient - Routine BSA: 2.14 m2 Department Location: [address]-ICU Blood Pressure: 119 /74 mmHg Study Type: TRANSTHORACIC ECHO (TTE) COMPLETE Diagnosis/ICD: Sepsis, unspecified organism-A41.9; Severe sepsis with septic shock-R65.21 Indication: Septic Shock CPT Codes: Echo Limited-25882; Doppler Limited-97676 Patient History: Pertinent History: COPD. No previous echo. Study Detail: The following Echo studies were performed: M-Mode, 2D, Doppler and color flow.Technically challenging study due to poor acoustic windows, patient lying in supine position and body habitus. Definity used as a contrast agent for endocardial border definition. Total contrast usedfor this procedure was 2 mL via IV push. A bubble study was not performed. The patient was awake. PHYSICIAN INTERPRETATION: Left Ventricle: Left ventricular systolic function was not well visualized.The left ventricular cavity size was not assessed. Left ventricular diastolic filling was not assessed. Left Atrium: The left atrium was not well visualized. Right Ventricle: The right ventricle was not well visualized. Unable to determine right ventricular systolic function. Right Atrium: The right atrium was not well visualized. Aortic Valve: The aortic valve was not well visualized. Aortic valve regurgitation was not assessed. The peak instantaneous gradient of the aortic valve is 5.4 mmHg. The mean gradient of the aortic valve is 3.0 mmHg. Mitral Valve: The mitral valve was not well visualized. Mitral valve regurgitation was not assessed. Tricuspid Valve: The tricuspid valve was not well visualized. Tricuspid regurgitation was not assessed. Pulmonic Valve: The pulmonic valve is not well visualized. The pulmonic valve regurgitation was not well visualized. Pericardium: There is no pericardial effusion noted. Aorta: The aortic root was not well visualized. CONCLUSIONS: 1. Non-diagnostic echocardiogram due to suboptimal image quality. 2. Left ventricular systolic function was not well visualized. QUANTITATIVE DATA SUMMARY: LV DIASTOLIC FUNCTION: Normal Ranges: MV Peak E: 0.54 m/s(0.7-1.2 m/s) MV Peak A: 1.13 m/s (0.42-0.7 m/s) E/A Ratio: 0.48 (1.0-2.2) MITRAL VALVE: Normal Ranges: MV DT: 194 msec (150-240msec) AORTIC VALVE: Normal Ranges: AoV Vmax: 1.16 m/s (<=1.7m/s) AoVPeak P.4 mmHg (<20mmHg) AoV Mean P.0 mmHg (1.7-11.5mmHg) LVOT Max Siddhartha: 0.95 m/s (<=1.1m/s) AoV VTI: 19.90 cm (18-25cm) LVOT VTI: 15.10 cm AoV Dimensionless Index: 0.76 RIGHT VENTRICLE: RV Basal 4.22 cm RV Mid 3.07 cm RV Major 9.0 cm TAPSE: 25.3 mm [id number] Arnlod Otero MD Electronically signed on 03/18/2023 at 1:15:[address] angio chest for pulmonary embolism Result Date: 03/17/2023 Interpreted By: Rubén Waller, STUDY: CT ANGIO CHEST FOR PULMONARY EMBOLISM; 03/17/2023 10:31 pmINDICATION: Signs/Symptoms:dyspnea. COMPARISON: Chest radiograph 03/17/2023 ACCESSION NUMBER(S): [id number] ORDERING CLINICIAN: QUINN CAMARILLO TECHNIQUE: Axial CTA images of the chest after intravenous administration of 74 mL Omnip[address] angiographic technique. Coronal and sagittal images are reconstructed. MIP images were created and reviewed. FINDINGS: CHEST WALL AND LOWER NECK:Within normal limits. ABDOMEN: Calcifications scattered throughout the spleen. VASCULAR: AORTA: No aortic aneurysm or dissection. Mild atherosclerotic disease. 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 PULMONARY ARTERY: Normal caliber. No pulmonary embolus to the segmental level. CHEST: HEART: Normal size. No pericardial effusion. There are coronary artery calcifications. MEDIASTINUM AND BENNY: No pathologically enlarged thoracic lymph nodes. LUNG, PLEURA, LARGE AIRWAYS: Moderate centrilobular emphysematous changes diffusely throughout the lungs. Dependent atelectasis. BONES: Age-indeterminate height loss of the T11 and T12 vertebral bodies. No acute pulmonary embolus to the segmental level. Moderate centrilobular emphysematous changes diffusely throughout the lungs Age-indeterminate height loss of the T11 and T12 vertebral bodies. Correlate with point tenderness. Calcifications scattered throughout the spleen which may be seen with sequela of granulomatous disease. 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 MACRO: None. Signed by: Rubén Waller 03/17/2023 11:02 PM Dictation workstation: [id number] Results for orders placed or performed during the hospital encounter of 03/17/23 (from the past 24 hour(s)) CBC Result Value Ref Range WBC 18.8 (H) 4.4 - 11.3 x10*3/uL nRBC 0.0 0.0 - 0.0 /100 WBCs RBC 3.72 (L) 4.50 - 5.90 x10*6/uL Hemoglobin 11.4 (L) 13.5 - 17.5 g/dL Hematocrit 36.0 (L) 41.0 - 52.0 % MCV 97 80 - 100 fL MCH 30.6 26.0 - 34.0 pg MCHC 31.7 (L) 32.0 - 36.0 g/dL RDW 12.7 11.5 - 14.5 % Platelets 306 150 - 450 x10*3/uL Comprehensive metabolic panel Result Value Ref Range Glucose 123 (H) 74 - 99 mg/dL Sodium 139 136 - 145 mmol/L Potassium 3.5 3.5 - 5.3 mmol/L Chloride 107 98 - 107 mmol/L Bicarbonate 22 21 - 32 mmol/L Anion Gap 14 10 - 20 mmol/L Urea Nitrogen 30 (H) 6 - 23 mg/dL Creatinine 1.17 0.50 - 1.30 mg/dL eGFR 65 >60 mL/min/1.73m*2 Calcium 8.6 8.6 - 10.3 mg/dL Albumin 2.9 (L) 3.4 - 5.0 g/dL Alkaline Phosphatase 69 33 - 136 U/L Total Protein 5.7 (L) 6.4 - 8.2 g/dL AST 36 9 - 39 U/L Bilirubin, Total 0.5 0.0 - 1.2 mg/dL ALT 26 10 - 52 U/L Vancomycin, Trough Result Value Ref Range Vancomycin, Trough 11.5 5.0 - 20.0 ug/mL Assessment/Plan Principal Problem: COPD (chronic obstructive pulmonary disease) (CMS/HCC) 72-year-old male with history of hypertension, hyperlipidemia, coronary artery disease, COPD, paroxysmal A-fib, hypothyroidism, CVA presented with right lower extremity cellulitis, wound in hands, LUCAS, sepsis, dehydration, lactic acidosis, COPD exacerbation with acute hypoxemic/hypercapnic respiratory failure EKG sinus tachycardia resolved Severe sepsis with LUCAS resolving Plan Nebs treatments Supplemental oxygen to wean off as tolerated currently on 2 L Off Levophed On vancomycin and Zosyn IV Follow blood and wound cultures Neb treatments Steroids Needs to see dermatology outpatient Check imaging CT with contrast right lower extremity, no abscess and x-ray right foot, ankle and leg with no acute findings Due to hypotension, can check echocardiogram Follow podiatry for local wound care Consider orthopedic evaluation for right index finger wound for possible drainage Elevated CRP and ESR CTA chest with no pulmonary embolism. 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 and follow vascular outpatient Follow vitals and control within reasonable range Echocardiogram no acute findings as such Statins for hyperlipidemia On Plavix Also continue with Xarelto Daily CBC BMP and monitor urine output improving but white count still present Continue home medicines as tolerated Avoid hypotension and nephrotoxic medicines DVT prophylaxis addressed per policy Local skin care Peripheral vascular studies per podiatry not conclusive CT right lower extremity to evaluate any abscess Replete electrolytes as needed On Synthroid for hypothyroidism Overall clinically improving Right index finger paronychia improving on antibiotics and local skin care and no drainage Palomo Farnsworth MD * Selma Mcdonnell DPM - 03/19/2023 4:14 PM EST Reason For Consult Right lower leg wound with infection History Of Present Illness Cheryl De La Fuente is a 72 y.o. male was admitted for pneumonia and lower right extremity wound with concern of infection. He reports his dog scratched him about 3 weeks ago and then it became painful and red about 10 days ago. He denies odor. He had a CT scan done today and has elevated lab infectionmarkers. He denies h/o prior lower extremity wound, claudication, chronic limb swelling or neuropathy. Patient evaluated by telehealth yesterday by . States right lower leg is tender. Feelingtired overall. Past Medical History He has a past medical history of Atrial fibrillation (CMS/HCC), COPD (chronic obstructive pulmonarydisease) (CMS/HCC), Coronary artery disease, Hypertension, Hypothyroidism, and Stroke (CMS/HCC). Surgical History He has a past surgical history that includes Coronary stent placement and Sinus surgery (Bilateral). Social History He reports that he quit smoking about 18 years ago. His smoking use included cigarettes. His smokeless tobacco use includes snuff. He reports that he does not drink alcohol and does not use drugs. Family History Family History No family history on file. Allergies Codeine Review of Systems Denies fever, chills, nausea, vomiting. Denies calf pain Physical Exam Alert and oriented, pleasant Integument: Skin turgor is thin and atrophic without infection, ecchymosis, odor or necrosis. Skin discontinuity is noted medial posterior right ankle with granular well vascularized base and no localized purulence. Erythema is intense and hyperpigmented with increased warmth medial along ankle andmore intensely to lateral lower leg where extends to the knee level. Extension marked per nursing on admission. Vascular: Hair is not present to lower extremities. + Right lower extremity edema. DP and PT pulsesare palpable +2/4. Neurological: Epicritic sensation is intact via light touch to lower extremities equal and symmetrical and lacking with 10 g [place] Suly monofilament. Musculoskeletal: Active range of motion digits bilateral. Pain on palpation right lower extremity wound and right proximal lateral lowerleg. Rectus right ankle and foot Relevant Results CT foot and leg: IMPRESSION: 1. Areas of subcutaneous edema extends along the lateral aspect of the calf as well as the proximal medial aspect of the calf and along the medial malleolus. No localized collection suggestive of abscess is noted. No underlying bony abnormality suggestive of osteomyelitis are noted. 2. Right popliteal cyst containing multiple loose bodies Xray foot, ankle , leg: FINDINGS: Mild soft tissue swelling is seen throughout the right lower leg. There is no evidence of acute fracture or dislocation identified. The joint spaces are well preserved without significant degenerative changes. IMPRESSION: 1. No evidence of acute fracture or dislocation. PVR / MARISSA study: Right Lower PVR: No evidence of arterial occlusive disease in the right lower extremity at rest. Normal digital perfusion noted. Triphasic flow is noted in the right posterior tibialartery, right dorsalis pedis artery and right common femoral artery. Left Lower PVR: No evidence of arterial occlusive disease in the left lower extremity at rest. Normal digital perfusion noted. Triphasic flow is noted in the left dorsalis pedis artery, left common femoral artery and left posterior tibial artery. WBC 18.8, ESR 67, CRP 15.43, GFR 54, Alb 3.3, glu 111 Culture right lower leg wound results pending Blood cultures pending Assessment/Plan I reviewed and discussed the case including diagnostic data. The following care recommendations andintervention was performed: Debridement: not indicated, no concern of underlying abscess Dressing care: xeroform,mepilex border Offloading: avoid direct pressure at wound Weightbearing status: as tolerated Infection management: Continue broad Spectrum AB (vanc/zosyn). CT and XR results pending. Cultures pending. Lab trends will be followed. Leukocytosis with multiple likely sources noted (ankle wound, finger wound, pneumonia, others) Vascular work-up: ordered non invasive vascular studies Edema: elevate, edith wrap Healing optimization and nutrition: karyn nutritional supplement ordered Additional diagnostic data: will follow charts and test results * Mihai Barreto DO - 03/19/2023 12:47 PM EST Cheryl De La Fuente is a 72 y.o. male on day 1 of admission presenting with COPD (chronic obstructive pulmonary disease) ([facility]). Subjective Patient seen and examined at the bedside this morning He is resting comfortably in bed He states that he is actually feeling much improved currently His right leg is wrapped He is still on 2 L of oxygen via nasal cannula but states his breathing is feeling much better Still has some pain in his leg but also improved Objective Vitals 24HR Heart Rate: [75-105] Temp: [36.6 C (97.9 F)-37.3 C (99.1 F)] Resp: [17-22] BP: (104-137)/(73-97) Weight: [93.5 kg (206 lb 2.1 oz)] SpO2: [93 %-96 %] Intake/Output last 3 Shifts: Intake/Output Summary (Last 24 hours) at 03/19/2023 1247 Last data filed at 03/19/2023 1226 Gross per 24 hour Intake 4633.33 ml Output 450 ml Net 4183.33 ml Physical Exam Constitutional: Appearance: Normal appearance. HENT: Head: Normocephalic and atraumatic. Right Ear: External ear normal. Left Ear: External ear normal. Nose: Nose normal. Mouth/Throat: Mouth: Mucous membranes are moist. Pharynx: Oropharynx is clear. Eyes: Extraocular Movements: Extraocular movements intact. Conjunctiva/sclera: Conjunctivae normal. Pupils: Pupils are equal, round, and reactive to light. Cardiovascular: Rate and Rhythm: Normal rate and regular rhythm. Pulmonary: Effort: Pulmonary effort is normal. Breath sounds: Normal breath sounds. Abdominal: General: Abdomen is flat. Palpations: Abdomen is soft. Musculoskeletal: Comments: Right leg where wound is is wrapped Skin: General: Skin is warm and dry. Neurological: General: No focal deficit present. Mental Status: He is alert and oriented to person, place, and time. Psychiatric: Mood and Affect: Mood normal. Behavior: Behavior normal. Relevant Results Scheduled medications atorvastatin, 80 mg, oral, Nightly bacitracin, , Topical, TID budesonide, 0.5 mg, nebulization, BID clopidogrel, 75 mg, oral, Daily formoterol, 20 mcg, nebulization, BID ipratropium-albuteroL, 3 mL, nebulization, q4h lactobacillus acidophilus, 1 capsule, oral, Daily levothyroxine, 75 mcg, oral, Daily piperacillin-tazobactam, 4.5 g, intravenous, q6h polyethylene glycol, 17 g, oral, Daily potassium chloride CR, 20 mEq, oral, Daily predniSONE, 40 mg, oral, Daily rivaroxaban, 20 mg, oral, Daily with evening meal sertraline, 100 mg, oral, Daily vancomycin, 1,500 mg, intravenous, q24h Continuous medications sodium chloride 0.9%, 125 mL/hr, Last Rate: 125 mL/hr (03/19/23 1102) PRN medications PRN medications: ipratropium-albuteroL, ondansetron, oxygen Assessment/Plan This patient currently has cardiac telemetry ordered; if you would like to modify or discontinue the telemetry order, click here to go to the orders activity to modify/discontinue the order. Principal Problem: COPD (chronic obstructive pulmonary disease) ([facility]) Sepsis with source appearing to be skin especially the lower extremity Leukocytosis Acute renal failure: Improving nicely COPD with exacerbation Shortness of breath Plan: At this time his renal function has returned to pretty much normal. He is feeling much improved currently on Vanco and Zosyn White count is still positive Still following cultures and cultures not back as of yet His vitals are stable Will defer rest of management to primary team Please call with any further issues or needs Mihai Barreto DO * Thais Ramos RN - 03/19/2023 10:38 AM EST Met with pt and daughter at bedside. Provided them with the resources or [facility] and [facility] on [facility] for MOW and assistance with utility programs that they may have available also suggested that they look into the HEAP program if heating is an issue. They both denied any issues at this time and were grateful for the guidance. According to care rounds meeting it will be another 24-48hours before discharge. AMPAC24/21. CT to follow. Thais Ramos BSN/RN-TCC * Ayanna Escalante Friday Shruthi Johnston - 03/19/2023 7:29 AM EST Vancomycin Dosing by Pharmacy- FOLLOW UP Cheryl De La Fuente is a 72 y.o. year old male who Pharmacy has been consulted for vancomycin dosing for cellulitis, skin and soft tissue. Based on the patient's indication and renal status this patient is being dosed based on a goal AUC goal 400-600. Renal function is currently stable. Current vancomycin dose: 1500 mg given every 24 hours Most recent random level: 11.5 mcg/mL Visit Vitals BP 117/84 Pulse 94 Temp 36.8 C (98.2 F) (Temporal) Resp 22 Lab Results Component Value Date CREATININE 1.17 03/19/2023 CREATININE 1.38 (H) 03/17/2023 CREATININE 1.08 06/06/2020 CREATININE 1.12 09/22/2019 Patient weight is 90.6 I/O last 3 completed shifts: In: 6803.4 (72.8 mL/kg) [P.O.:240; I.V.:1463.4 (15.7 mL/kg); IV Piggyback:5100] Out: 675 (7.2 mL/kg) [Urine:675 (0.2 mL/kg/hr)] Weight: 93.5 kg @IOTHISSHIFT@ No results found for: PATIENTTEMP Assessment/Plan Within goal AUC range. Continue current vancomycin regimen. This dosing regimen is predicted by [employer] to result in the following pharmacokinetic parameters: Regimen: 1500 mg IV every 24 hours. Start time: 07:16 on 03/19/2023 Exposure target: AUC24 (range)400-600 mg/L.hr AUC24,ss: 497 mg/L.hr Probability of AUC24 > 400: 85 % Ctrough,ss: 14.2 mg/L Probability of Ctrough,ss > 20: 12 % Probability of nephrotoxicity (Lodise BEBO 2008): 9 % The next level will be obtained on 03/20 at 0600. May be obtained sooner if clinically indicated. Will continue to monitor renal function daily while on vancomycin and order serum creatinine at least every 48 hours if not already ordered. Follow for continued vancomycin needs, clinical response, and signs/symptoms of toxicity. Ayanna Johnston RPh * Ayanna Johnston RPh - 03/18/2023 3:03 PM EST Vancomycin Dosing by Pharmacy- INITIAL Cheryl De La Fuente is a 72 y.o. year old male who Pharmacy has been consulted for vancomycin dosing for cellulitis, skin and soft tissue and Sepsis. Based on the patient's indication and renal status this patient will be dosed based on a goal AUC of 500-600. Renal function is currently stable. Visit Vitals BP 125/85 Pulse 98 Temp 37.4 C (99.3 F) (Temporal) Resp (!) 29 Lab Results Component Value Date CREATININE 1.38 (H) 03/17/2023 CREATININE 1.08 06/06/2020 CREATININE 1.12 09/22/2019 Patient weight is No results found for: PTWEIGHT No results found for: CULTURE I/O last 3 completed shifts: In: 4300 (47.5 mL/kg) [IV Piggyback:4300] Out: 175 (1.9 mL/kg) [Urine:175 (0.1 mL/kg/hr)] Weight: 90.6 kg @IOTHISSHIFT@ No results found for: PATIENTTEMP Assessment/Plan Patient will not be given a loading dose. Will initiate vancomycin maintenance, 1500 mg every 24 hours. This dosing regimen is predicted by [employer] to result in the following pharmacokinetic parameters: Regimen: 1500 mg IV every 24 hours. Start time: 16:00 on 03/18/2023 Exposure target: AUC24 (range)400-600 mg/L.hr AUC24,ss: 540 mg/L.hr Probability of AUC24 > 400: 82 % Ctrough,ss: 16.5 mg/L Probability of Ctrough,ss > 20: 31 % Probability of nephrotoxicity (Lodise BEBO 2008): 12 % Follow-up level will be ordered on 03/19 at 0600 unless clinically indicated sooner. Will continue to monitor renal function daily while on vancomycin and order serum creatinine at least every 48 hours if not already ordered. Follow for continued vancomycin needs, clinical response, and signs/symptoms of toxicity. Ayanna Johnston RPh * Thais Ramos RN - 03/18/2023 10:45 AM EST 03/18/23 1050 Discharge Planning Living Arrangements Alone Support Systems Children;Friends/neighbors Assistance Needed No Type of Residence Private residence Number of Stairs to Enter Residence 3 Number of Stairs Within Residence 0 Do you have animals or pets at home? Yes Type of Animals or Pets dog Who is requesting discharge planning? Provider Home or Post Acute Services None Patient expects to be discharged to: Home Does the patient need discharge transport arranged? No Financial Resource Strain How hard is it for you to pay for the very basics like food, housing, medical care, and heating? Not very Housing Stability In the last 12 months, was there a time when you were not able to pay the mortgage or rent on time?N In the last 12 months, how many places have you lived? 1 In the last 12 months, was there a time when you did not have a steady place to sleep or slept in ashelter (including now)? N Transportation Needs In the past 12 months, has lack of transportation kept you from medical appointments or from getting medications? no In the past 12 months, has lack of transportation kept you from meetings, work, or from getting things needed for daily living? No Patient Choice Provider Choice list and CMS website (https://medicare.gov/care-compare#search) for post-acute Quality and Resource Measure Data were provided and reviewed with: Other (Comment) (NA) Patient / Family choosing to utilize agency / facility established prior to hospitalization No Met with pt at the bedside and verified address, phone number and emergency contact information. PCP is Yolande last seen in May 2022 pharmacy is [facility]. [facility]. He pays for a maid monthly. His daughter sets up his pills. Daughter asked about MOW Ne told her to contact the [facility] on aging and they could assist her with this. Pt asked about discounts for seniors on utilities and I inquired with SW and they suggested contacting [facility] [address] I them know that info. Pt is independent and lives alone and feels safe. Plans to return home at discharge. [facility] to follow. Thais Ramos BSN/RN-TCC * Quinn Camarillo DO - 03/17/2023 7:52 PM EST I examined the patient 03/17/2023 11:18 PM Vital Signs:BP 116/78 Pulse 96 Temp 36.3 C (97.3 F) (Temporal) Resp 18 Ht 1.854 m (6' 1) Wt 89.8 kg (198 lb) SpO2 96% BMI 26.12 kg/m Cardiac examination significant for: Regular rate and rhythm Pulmonary examination significant for: Clear lung [place] Capillary refill is: brisk Peripheral Pulse is: 2+ Skin is: Normal I performed a sepsis reperfusion exam at 03/17/2023 11:18 PM documented in this [facility] Work Phone: [phone]) 557-218701-19-2024 Hospital Discharge instructions* Discharge Instr - Other Orders* Ramila Sommers RN - 03/21/2023 12:03 PM EST Images from the original note were not included. Cellulitis (Skin Infection) Discharge Instructions, Adult About this topic Cellulitis is a skin infection. All people have germs on their skin. Most of the time, these germs do not cause a problem. A skin infection means the germs have gotten into the layers of your skin. Germs can enter your body from a cut, scratch, or bite. The infected part gets red, warm, painful, swollen, and irritated. You need antibiotics to treat the infection. It is important to take all of your antibiotics even if you start to feel better. If not, your infection may come back and be more serious than before. What care is needed at home? Ask your doctor what you need to do when you go home. Make sure you ask questions if you do not understand what the doctor says. This way you will know what you need to do. Prop your painful body part on pillows, keeping it above the level of your heart. This may help lessen pain and swelling. Keep your infected area clean and dry. Do not squeeze, scratch, or rub it. You can gently wash the area with soap and water or take a shower. Pat the area dry with a clean towel. Wash your hands before and after you touch your infected area. Do not put an antibiotic ointment on the infected area. Use clean, warm compresses to help ease pain and swelling. Wet a clean wash cloth or small towel with hot water. Put it on the area for 5 to 10 minutes. You can draw a line with a waterproof marker around the red area to see if it is getting bigger or smaller. What follow-up care is needed? Your doctor may ask you to make visits to the office to check on your progress. Be sure to keep these visits. If surgery was needed to drain the infection, your doctor may not stitch the area closed. Keep thisarea clean and covered. If you do have stitches or pia, you will need to have them taken out. Your doctor will often want to do this in 1 to 2 weeks. What drugs may be needed? The doctor may order drugs to: Treat the infection. Finish all of the antibiotics, even if the infection appears to have gone away. Help with pain and swelling Will physical activity be limited? Your activity may be decreased if a leg or arm is infected. It may be painful to move that part of the body. You may not feel well for a few days until the drug to treat the infection starts working. What problems could happen? Infection in the blood. This is sepsis and is very serious. Bone infection Inflammation of the lymph vessels Inflammation of the heart Meningitis Shock Tissue or gangrene What can be done to prevent this health problem? Wear proper clothing and shoes to cover your body and prevent cuts and bruises. Keep your nails trimmed to avoid scratches. Keep skin moisturized. Use lotion that does not have fragrance added to avoid dry, cracked skin. Treat athlete's foot as directed by your doctor. If you have a chronic skin condition, talk with your doctor about how to keep it under the best control. If you have chronic swelling (edema) of an arm or leg, talk with your doctor about how to lower theswelling. Your doctor may want you to wear support stockings. Practice good hygiene. Wash your hands often with soap and water. If you often have fungal infections, ask your doctor if you should be using an antifungal drug to prevent the cellulitis from occurring again. If you scratch or cut your skin, wash the area carefully with soap and water. When do I need to call the doctor? Signs of infection. These include a fever of 100.4 F (38 C) or higher, chills, or wound that will not heal. You have a fever of 100.4 F (38 C) or higher or chills. The area becomes more red, swollen, or painful. The redness or swelling spreads up your leg or arm or to a larger area. The infected area is not better after 3 days of taking antibiotics. Teach Back: Helping You Understand The Teach Back Method helps you understand the information we are giving you. After you talk with the staff, tell them in your own words what you learned. This helps to make sure the staff has described each thing clearly. It also helps to explain things that may have been confusing. Before going home, make sure you can do these: I can tell you about my condition. I can tell you about to care for my wound. I can tell you what I will do if I have swelling, redness, or warmth around my wound. Last Reviewed Date 2020-08-03 documented in this [facility] Work Phone: [phone]) 515-882301-19-2024 Hospital course Narrative* Paige Bhardwaj MD - 03/21/2023 11:39 AM EST Discharge Diagnosis COPD (chronic obstructive pulmonary disease) (CMS/HCC) Right lower leg cellulitis with open wound Acute renal failure Acute respiratory failure with hypoxia Wounds in hands Sinus tachycardia, resolved Severe sepsis with acute renal failure, resolved Generalized weakness Right index finger Paranychion, improving Issues Requiring Follow-Up Generalized weakness Cellulitis. Right lower leg. Discharge Meds Your medication list START taking these medications Instructions Last Dose Given Next Dose Due amoxicillin-pot clavulanate 875-125 mg tablet Commonly known as: Augmentin Take 1 tablet (875 mg) by mouth 2 times a day for 14 days. lactobacillus acidophilus capsule Start taking on: March 22, 2023 Take 1 capsule by mouth once daily. Do not start before March 22, 2023. povidone-iodine 7.5 % solution Commonly known as: Betadine Apply 1 Application topically 4 times a day for 7 days. CHANGE how you take these medications Instructions Last Dose Given Next Dose Due predniSONE 10 mg tablet Commonly known as: Deltasone Start taking on: March 21, 2023 What changed: See the new instructions. Another medication with the same name was removed. Continue taking this medication, and follow the directions you see here. Take 4 tablets (40 mg) by mouth once daily for 3 days, THEN 2 tablets (20 mg) once daily for 3 days, THEN 1 tablet (10 mg) once daily for 3 days. CONTINUE taking these medications Instructions Last Dose Given Next Dose Due albuterol 2.5 mg /3 mL (0.083 %) nebulizer solution amLODIPine 5 mg tablet Commonly known as: Norvasc atorvastatin 80 mg tablet Commonly known as: Lipitor Flonase Allergy Relief 50 mcg/actuation nasal spray Generic drug: fluticasone furosemide 20 mg tablet Commonly known as: Lasix ipratropium 0.02 % nebulizer solution Commonly known as: Atrovent ipratropium-albuteroL 0.5-2.5 mg/3 mL nebulizer solution Commonly known as: Duo-Neb Take 3 mL by nebulization every 6 hours if needed for wheezing. levothyroxine 75 mcg tablet Commonly known as: Synthroid, Levoxyl metoprolol succinate XL 50 mg 24 hr tablet Commonly known as: Toprol-XL montelukast 10 mg tablet Commonly known as: Singulair nitroglycerin 0.4 mg SL tablet Commonly known as: Nitrostat Plavix 75 mg tablet Generic drug: clopidogrel potassium chloride CR 20 mEq ER tablet Commonly known as: Klor-Con M20 sertraline 100 mg tablet Commonly known as: Zoloft spironolactone 25 mg tablet Commonly known as: Aldactone Trelegy Ellipta 100-62.5-25 mcg blister with device Generic drug: cjuqduqkqku-kvgcmcgrg-zgpjiodm Xarelto 20 mg tablet Generic drug: rivaroxaban STOP taking these medications doxycycline 100 mg tablet Commonly known as: Adoxa losartan 100 mg tablet Commonly known as: Cozaar Where to Get Your Medications These medications were sent to [id number] - [place], [place] [address] [id number] [facility] [address] amoxicillin-pot clavulanate 875-125 mg tablet lactobacillus acidophilus capsule povidone-iodine 7.5 % solution predniSONE 10 mg tablet Test Results Pending At Discharge Pending Labs Order Current Status Extra Urine Barragan Tube Collected (03/17/23 2873) Urinalysis with Reflex Culture and Microscopic In process Blood Culture Preliminary result Blood Culture Preliminary result Hospital Course 72 y.o. male presenting with shortness of breath, wheezing for 2 weeks and was evaluated at urgent care a week ago treated for pneumonia with doxycycline but still having cough with greenish sputum and shortness of breath found to be hypoxic on room air. No oxygen use at home. Wounds on right indexfinger, right lower extremity leg and left hand. Has been wearing gloves in hands lately may have caused friction rub to dry skin but denies any trauma or puncture nail.. Right leg was scratched by his dog but no bite and no active bleeding but has ulceration with redness pain and mild swelling. Denies any fever chills or nausea vomiting diarrhea. Patient dropped pressure was found to be hypotensive and started on Levophed after giving IV fluids. No headache focal weakness. No back pain flank pain hematuria or dysuria. Cellulitis right lower extremity. Denies any smoking currently. No claudication. Denies any exertional dyspnea or paroxysmal nocturnal dyspnea or orthopnea. No chest pain or palpitations. No joint pains as such. He was treated with IV vancomycin and Zosyn for right lower leg cellulitis with wound. Podiatry wasconsulted, seen patient, noninvasive vascular studies were normal. Wound cultures came back with Streptococcus. Blood cultures negative. Patient also had a CT with contrast of right lower extremity showed no abscess, and x-ray of the foot, ankle and leg with no acute findings. He had a vascular studies which showed no evidence of arterial occlusive disease in the right lower extremity. Also no occlusive disease on the left side. Patient already on Xarelto from home. Patient was switched to oralAugmentin 875 mg twice a day for 14 days at the time of discharge. Patient also has a wound which she has been managed by the podiatry and wound care. Patient will have a wound care continued by homehealth care. Patient also came with sepsis initially secondary due to above, improved with sepsis protocol management. His acute renal failure can be attributed to his sepsis along with his home medications including losartan. Patient was seen by nephrology, appreciate his input. Patient creatinine improved andstabilized. Patient's blood pressures have been running little on the lower side, will hold his home losartan and follow-up with primary in a clinic visit. Will continue with his amlodipine. Patient also came with acute COPD exacerbation with acute hypoxic/hypercapnic respiratory failure, was given supplemental oxygen during hospitalization. Currently he is only requiring oxygen with exertion, will set up with home oxygen as needed. Has a history of chronic A-fib, rate control with beta-blockers, will continue with Xarelto for anticoagulation. Has a history of coronary artery disease with history of CVA in the past, continue with aspirin, Plavix and high dose statins. Echocardiogram was done which showed normal preserved left ventricular function no acute wall motion abnormalities. Pertinent Physical Exam At Time of Discharge Physical Exam Gen: NAD, A&O x 3, Well developed HEENT: Normal size, shape; no masses noted in neck, no lymphadenopathy, no tracheal deviation, non-palpable thyroid Neck: Supple.Trachea central.No neck rigidity. Chest: chest symmetry with respirations, no wheezes, crackles CVS: RRR, no rubs Abd: soft, NT/ND, +BS Ext: Right index finger in bandage. No erythema, swelling or tenderness. No Clubbing/Cyanosis/edema, non-tender.Pulse 2+. Homans Negative. Skin: Right lower leg shows wound wrapped in bandage. No discharge. No surrounding erythema. No ecchymosis, necrosis. Neuro: grossly normal Psy: Mood and affect appropriate Outpatient Follow-Up Follow-up with podiatry in 2 weeks. Follow-up with PCP in 1 week. Total discharge time 35 minutes. Paige Langford MD documented in this [facility] Work Phone: 1(696) 787-919301-19-2024 Miscellaneous Notes* Care Plan - Mary Herrmann RN - 03/21/2023 11:05 AM EST Care Transitions: Patient reviewed during care round meeting this AM. Pharmacy looking into medications to discharge home with; IV ATB vs oral. Spoke to daughter Ashtyn @ [phone] and received an email from her with [facility] agency [employer]. Will send referral to [facility] per choice through [facility]. Verified patient will be discharging to daughter home @ [address] [place] [address] in [place]. Mary Herrmann RN/TCC - [phone] Per secure chat with Pharmacist Savannah Reece [facility] patient will discharge on oral ATB instead of IV ATB. Will notify [facility] and daughter. Care team to follow for [facility] acceptance. Mary Herrmann RN/TCC - [phone] Received a call from Karen Hernandez liaison for [facility]. Stated they are able to provide services. Will keep them updated for ADOD. Will update pt and daughter. Mary Herrmann RN/TCC * Care Plan - Mary Herrmann RN - 03/20/2023 1:25 PM EST Care Transitions: Patient reviewed during care round meeting this AM and is not medically ready fordischarge today. Met with patient and daughter Ashtyn Carbajal @ bedside. Discussed discharge plan andpatient possibly needing IV ATB vs oral ATB. Daughter states patient will be staying with her for ashort time after discharge. Her address is [address] [place] [id number]. Discussed going home with daughter to her house and the benefit of [facility] services. Patient and daughter agreeable. [facility] agency list provided. Daughter will let this TCC or SW know an agency choice after she reviews them. Daughter stated he also has difficulty with medication co-pays at times. Discussed the [facility] program and services they provide including medication support. Patient and daughter agreeable to a referral for the [facility] program. Internal referral placed. IMM explained, patient signed and copy given. Original in chart. Voiced understanding. Care team to follow for [facility] agency choice and referral. Mary Herrmann RN/TCC * Care Plan - Renetta Chaparro RN - 03/20/2023 6:29 AM EST The patient's goals for the shift include The clinical goals for the shift include sleep well all night, he was successful * Care Plan - Selma Marie RN - 03/19/2023 5:42 AM EST The patient's goals for the shift include The clinical goals for the shift include pt will rest comfortably during this shift * Care Plan - Carey Drake RN - 03/18/2023 6:17 PM EST Problem: Skin Goal: Decreased wound size/increased tissue granulation at next dressing change Outcome: Progressing Goal: Participates in plan/prevention/treatment measures Outcome: Progressing Goal: Prevent/manage excess moisture Outcome: Progressing Goal: Prevent/minimize sheer/friction injuries Outcome: Progressing Goal: Promote/optimize nutrition Outcome: Progressing Goal: Promote skin healing Outcome: Progressing Problem: Respiratory Goal: Minimize anxiety/maximize coping throughout shift Outcome: Progressing Goal: Minimal/no exertional discomfort or dyspnea this shift Outcome: Progressing Goal: No signs of respiratory distress (eg. Use of accessory muscles. Peds grunting) Outcome: Progressing Goal: Verbalize decreased shortness of breath this shift Outcome: Progressing Goal: Wean oxygen to maintain O2 saturation per order/standard this shift Outcome: Progressing Problem: Fall/Injury Goal: Not fall by end of shift Outcome: Progressing Goal: Be free from injury by end of the shift Outcome: Progressing Goal: Verbalize understanding of personal risk factors for fall in the hospital Outcome: Progressing Goal: Pace activities to prevent fatigue by end of the shift Outcome: Progressing The patient's goals for the shift include maintain an spo2 greater than 92% The clinical goals for the shift include tolerate weaning of levo and oxygen throughout shift Over the shift, the patient did make progress toward the following goals. * Care Plan - Terese Montez RN - 03/18/2023 6:50 AM EST The clinical goals for the shift include Wean off levophed and oxygen by the end of shift Over the shift, Pt continue to be on oxygen and levophed. Pt not in distress. Vital signs currentlystable. documented in this [facility] Work Phone: 1(356) 532-702201-19-2024 Plan of care note* Care Plan - Mary Herrmann RN - 03/21/2023 11:05 AM EST Care Transitions: Patient reviewed during care round meeting this AM. Pharmacy looking into medications to discharge home with; IV ATB vs oral. Spoke to oswald Chamorro @ [phone] and received an email from her with [facility] agency [employer]. Will send referral to [facility] per choice through [facility]. Verified patient will be discharging to daughter home @ [address] [place] [address] [address] [place]. Mary Herrmann RN/TCC - [phone] Per secure chat with Pharmacist Savannah Reece [facility] patient will discharge on oral ATB instead of IV ATB. Will notify [facility] and daughter. Care team to follow for [facility] acceptance. Mary Herrmann RN/TCC - [phone] Received a call from Karen Hernandez liaison for [facility]. Stated they are able to provide services. Will keep them updated for ADOD. Will update pt and daughter. Mary Herrmann RN/TCC [facility]01-19-2024 Nurse Note* Antoinette Carrera RN - 03/21/2023 11:00 AM EST Pt daughter at bedside and concerned about walking SPO2 study and wanting to include stairs. Also concerned that patient complained of sudden sharp pain in right leg just above the calf. Dr. Langfordnotified and in to see patient. [facility]01-18-2024 Plan of care note* Care Plan - Mary Herrmann RN - 03/20/2023 1:25 PM EST Care Transitions: Patient reviewed during care round meeting this AM and is not medically ready fordischarge today. Met with patient and daughter Ashtyn Carbajal @ bedside. Discussed discharge plan andpatient possibly needing IV ATB vs oral ATB. Daughter states patient will be staying with her for ashort time after discharge. Her address is [address] [place] [address]. Discussed going home with daughter to her house and the benefit of [facility] services. Patient and daughter agreeable. [facility] agency list provided. Daughter will let this [facility] or SW know an agency choice after she reviews them. Daughter stated he also has difficulty with medication co-pays at times. Discussed the [facility] program and services they provide including medication support. Patient and daughter agreeable to a referral for the [facility] program. Internal referral placed. IMM explained, patient signed and copy given. Original in chart. Voiced understanding. Care team to follow for [facility] agency choice and referral. Mary Herrmann RN/TCC [facility] Work Phone: [phone]) 229-667001-18-2024 Nurse Note* Mariana Zamudio RN - 03/20/2023 12:40 PM EST Met with Mr Cheryl De La Fuente in the ICU room 330 and his daughter related to pulmonary rehab. Explained the days and times of the program what it entailed and the length of program. Provided a pulmonary rehab folder which contained all information about the program and contact number for us. I also provided a educational booklet Living with Chronic Obstructive Pulmonary Disease COPD. Patient follows with a medicare compliance auditor Dr Ocampo in [place]. They both deny any further questions at this time. Iexplained to them we will reach out the first week of April. [facility]01-18-2024 Plan of care note* Care Plan - Renetta Chaparro RN - 03/20/2023 6:29 AM EST The patient's goals for the shift include The clinical goals for the shift include sleep well all night, he was successful [facility]01-17-2024 Consult note* Nicole Reaves MD - 03/19/2023 1:31 PM EST Reason For Consult Right Index finger paranychion History Of Present Illness Cheryl De La Fuente is a 72 y.o. male presenting with right index finger paranychion. Seen with his daughter helping with the H PI. They say that he developed this infection and they were treated with Epsom salts soaks. At 1 point it drained some pus. The daughter says that it is improved and the patient states that he is having less pain and it is improved. He does have swelling around the base of the nail and then on the ulnar side. There are some discoloration of the skin on the ulnar side but it does appear to be viable. He denies any history of trauma. Past Medical History He has a past medical history of Atrial fibrillation (CMS/HCC), COPD (chronic obstructive pulmonarydisease) (CMS/HCC), Coronary artery disease, Hypertension, Hypothyroidism, and Stroke (CMS/HCC). Surgical History He has a past surgical history that includes Coronary stent placement and Sinus surgery (Bilateral). Social History He reports that he quit smoking about 18 years ago. His smoking use included cigarettes. His smokeless tobacco use includes snuff. He reports that he does not drink alcohol and does not use drugs. Family History No family history on file. Allergies Codeine Review of Systems Refer to the medical H&P Physical Exam Right hand index finger Redness around the nailbed especially at the base of the bed and then on the ulnar aspect. There issome discoloration along the ulnar aspect skin next to the nailbed. This appears viable. The pulp space is supple and nontender he has good capillary refill otherwise. The flexor tendons are supple and nontender. He is able to make a full fist and straighten it properly with no pain. He has no Knievel signs. Last Recorded Vitals Blood pressure 123/78, pulse 78, temperature 36.6 C (97.9 F), temperature source Temporal, resp. rate 18, height 1.854 m (6' 1), weight 93.5 kg (206 lb 2.1 oz), SpO2 95 %. Relevant Results Scheduled medications atorvastatin, 80 mg, oral, Nightly bacitracin, , Topical, TID budesonide, 0.5 mg, nebulization, BID clopidogrel, 75 mg, oral, Daily formoterol, 20 mcg, nebulization, BID ipratropium-albuteroL, 3 mL, nebulization, q4h lactobacillus acidophilus, 1 capsule, oral, Daily levothyroxine, 75 mcg, oral, Daily piperacillin-tazobactam, 4.5 g, intravenous, q6h polyethylene glycol, 17 g, oral, Daily potassium chloride CR, 20 mEq, oral, Daily predniSONE, 40 mg, oral, Daily rivaroxaban, 20 mg, oral, Daily with evening meal sertraline, 100 mg, oral, Daily vancomycin, 1,500 mg, intravenous, q24h Continuous medications PRN medications PRN medications: ipratropium-albuteroL, ondansetron, oxygen Results for orders placed or performed during the hospital encounter of 03/17/23 (from the past 24 hour(s)) CBC Result Value Ref Range WBC 18.8 (H) 4.4 - 11.3 x10*3/uL nRBC 0.0 0.0 - 0.0 /100 WBCs RBC 3.72 (L) 4.50 - 5.90 x10*6/uL Hemoglobin 11.4 (L) 13.5 - 17.5 g/dL Hematocrit 36.0 (L) 41.0 - 52.0 % MCV 97 80 - 100 fL MCH 30.6 26.0 - 34.0 pg MCHC 31.7 (L) 32.0 - 36.0 g/dL RDW 12.7 11.5 - 14.5 % Platelets 306 150 - 450 x10*3/uL Comprehensive metabolic panel Result Value Ref Range Glucose 123 (H) 74 - 99 mg/dL Sodium 139 136 - 145 mmol/L Potassium 3.5 3.5 - 5.3 mmol/L Chloride 107 98 - 107 mmol/L Bicarbonate 22 21 - 32 mmol/L Anion Gap 14 10 - 20 mmol/L Urea Nitrogen 30 (H) 6 - 23 mg/dL Creatinine 1.17 0.50 - 1.30 mg/dL eGFR 65 >60 mL/min/1.73m*2 Calcium 8.6 8.6 - 10.3 mg/dL Albumin 2.9 (L) 3.4 - 5.0 g/dL Alkaline Phosphatase 69 33 - 136 U/L Total Protein 5.7 (L) 6.4 - 8.2 g/dL AST 36 9 - 39 U/L Bilirubin, Total 0.5 0.0 - 1.2 mg/dL ALT 26 10 - 52 U/L Vancomycin, Trough Result Value Ref Range Vancomycin, Trough 11.5 5.0 - 20.0 ug/mL Assessment/Plan Right index finger partially treated paronychia. Patient is on antibiotics. He and his daughter believe this is beginning to heal. I will start him on soaks third a third of third hydrogen peroxide, Betadine, and warm saline. Willdo this 15 to 20 minutes 4 times a day. We can get him into a light dressing in between. As long asit continues to heal clinically no intervention is necessary. The area of soft tissue swelling at the base is supple and minimally tender to palpation. There is no drainage and it does not appear to have purulence. Nicole Reaves MD [facility] Work Phone: [phone] 323-946801-17-2024 Consult note* Nicole Reaves MD - 03/19/2023 1:31 PM EST Reason For Consult Right Index finger paranychion History Of Present Illness Cheryl De La Fuente is a 72 y.o. male presenting with right index finger paranychion. Seen with his daughter helping with the H PI. They say that he developed this infection and they were treated with Epsom salts soaks. At 1 point it drained some pus. The daughter says that it is improved and the patient states that he is having less pain and it is improved. He does have swelling around the base of the nail and then on the ulnar side. There are some discoloration of the skin on the ulnar side but it does appear to be viable. He denies any history of trauma. Past Medical History He has a past medical history of Atrial fibrillation (CMS/HCC), COPD (chronic obstructive pulmonarydisease) (CMS/HCC), Coronary artery disease, Hypertension, Hypothyroidism, and Stroke (CMS/HCC). Surgical History He has a past surgical history that includes Coronary stent placement and Sinus surgery (Bilateral). Social History He reports that he quit smoking about 18 years ago. His smoking use included cigarettes. His smokeless tobacco use includes snuff. He reports that he does not drink alcohol and does not use drugs. Family History No family history on file. Allergies Codeine Review of Systems Refer to the medical H&P Physical Exam Right hand index finger Redness around the nailbed especially at the base of the bed and then on the ulnar aspect. There issome discoloration along the ulnar aspect skin next to the nailbed. This appears viable. The pulp space is supple and nontender he has good capillary refill otherwise. The flexor tendons are supple and nontender. He is able to make a full fist and straighten it properly with no pain. He has no Knievel signs. Last Recorded Vitals Blood pressure 123/78, pulse 78, temperature 36.6 C (97.9 F), temperature source Temporal, resp. rate 18, height 1.854 m (6' 1), weight 93.5 kg (206 lb 2.1 oz), SpO2 95 %. Relevant Results Scheduled medications atorvastatin, 80 mg, oral, Nightly bacitracin, , Topical, TID budesonide, 0.5 mg, nebulization, BID clopidogrel, 75 mg, oral, Daily formoterol, 20 mcg, nebulization, BID ipratropium-albuteroL, 3 mL, nebulization, q4h lactobacillus acidophilus, 1 capsule, oral, Daily levothyroxine, 75 mcg, oral, Daily piperacillin-tazobactam, 4.5 g, intravenous, q6h polyethylene glycol, 17 g, oral, Daily potassium chloride CR, 20 mEq, oral, Daily predniSONE, 40 mg, oral, Daily rivaroxaban, 20 mg, oral, Daily with evening meal sertraline, 100 mg, oral, Daily vancomycin, 1,500 mg, intravenous, q24h Continuous medications PRN medications PRN medications: ipratropium-albuteroL, ondansetron, oxygen Results for orders placed or performed during the hospital encounter of 03/17/23 (from the past 24 hour(s)) CBC Result Value Ref Range WBC 18.8 (H) 4.4 - 11.3 x10*3/uL nRBC 0.0 0.0 - 0.0 /100 WBCs RBC 3.72 (L) 4.50 - 5.90 x10*6/uL Hemoglobin 11.4 (L) 13.5 - 17.5 g/dL Hematocrit 36.0 (L) 41.0 - 52.0 % MCV 97 80 - 100 fL MCH 30.6 26.0 - 34.0 pg MCHC 31.7 (L) 32.0 - 36.0 g/dL RDW 12.7 11.5 - 14.5 % Platelets 306 150 - 450 x10*3/uL Comprehensive metabolic panel Result Value Ref Range Glucose 123 (H) 74 - 99 mg/dL Sodium 139 136 - 145 mmol/L Potassium 3.5 3.5 - 5.3 mmol/L Chloride 107 98 - 107 mmol/L Bicarbonate 22 21 - 32 mmol/L Anion Gap 14 10 - 20 mmol/L Urea Nitrogen 30 (H) 6 - 23 mg/dL Creatinine 1.17 0.50 - 1.30 mg/dL eGFR 65 >60 mL/min/1.73m*2 Calcium 8.6 8.6 - 10.3 mg/dL Albumin 2.9 (L) 3.4 - 5.0 g/dL Alkaline Phosphatase 69 33 - 136 U/L Total Protein 5.7 (L) 6.4 - 8.2 g/dL AST 36 9 - 39 U/L Bilirubin, Total 0.5 0.0 - 1.2 mg/dL ALT 26 10 - 52 U/L Vancomycin, Trough Result Value Ref Range Vancomycin, Trough 11.5 5.0 - 20.0 ug/mL Assessment/Plan Right index finger partially treated paronychia. Patient is on antibiotics. He and his daughter believe this is beginning to heal. I will start him on soaks third a third of third hydrogen peroxide, Betadine, and warm saline. Willdo this 15 to 20 minutes 4 times a day. We can get him into a light dressing in between. As long asit continues to heal clinically no intervention is necessary. The area of soft tissue swelling at the base is supple and minimally tender to palpation. There is no drainage and it does not appear to have purulence. Nicole Reaves MD * Libertad Berkowitz, ARMANDO - 03/18/2023 8:51 PM EST Consults Reason For Consult Right lower leg wound with infection History Of Present Illness Cheryl De La Fuente is a 72 y.o. male was admitted for pneumonia and lower right extremity wound with concern of infection. He reports his dog scratched him about 3 weeks ago and then it became painful and red about 10 days ago. He denies odor. He had a CT scan done today and has elevated lab infectionmarkers. He denies h/o prior lower extremity wound, claudication, chronic limb swelling or neuropathy. He consents to telehealth visit and his nurse is present during the exam on [facility]. Past Medical History He has a past medical history of Atrial fibrillation ([facility]), COPD (chronic obstructive pulmonarydisease) ([facility]), Coronary artery disease, Hypertension, Hypothyroidism, and Stroke (CMS/HCC). Surgical History He has a past surgical history that includes Coronary stent placement and Sinus surgery (Bilateral). Social History He reports that he quit smoking about 18 years ago. His smoking use included cigarettes. His smokeless tobacco use includes snuff. He reports that he does not drink alcohol and does not use drugs. Family History No family history on file. Allergies Codeine Review of Systems Denies fever, chills, nausea, vomiting. Denies calf pain Physical Exam Alert and oriented, pleasant -- telehealth exam assisted with nurse Integument: Skin turgor is thin and atrophic without infection, ecchymosis, odor or necrosis. Skin discontinuity is noted medial posterior right ankle with fibrous base and possible localized purulence. Erythema is intense and hyperpigmented to ankle and extends to the knee level. Vascular: Hair is not present to lower extremities. Lower extremity edema. DP and PT pulses are unknown. Edema right lower extremity is apparent Neurological: Epicritic sensation is intact via light touch to lower extremities equal and symmetrical and lacking with 10 g [place] Suly monofilament. Negative Babinski. Negative clonus. Musculoskeletal: Active range of motion digits bilateral. Pain on palpation right lower extremity wound. Rectus right ankle and foot Last Recorded Vitals Blood pressure 125/81, pulse 92, temperature 37.2 C (99 F), resp. rate 20, height 1.854 m (6' 1), weight 90.6 kg (199 lb 11.8 oz), SpO2 94 %. Relevant Results CT foot and leg pending Xray foot, ankle , leg right pending WBC 17.2, ESR 67, CRP 15.43, GFR 54, Alb 3.3, glu 111 Culture right lower leg wound results pending Blood cultures pending TTE non diagnostic with left ventricular function not well visualized Assessment/Plan I reviewed and discussed the case including diagnostic data. The following care recommendations andintervention was performed: Debridement: will be considered at follow up visit Dressing care: betadine wet to dry Offloading: avoid direct pressure at wound Weightbearing status: as tolerated Infection management: Continue broad Spectrum AB (vanc/zosyn). CT and XR results pending. Cultures pending. Lab trends will be followed. Leukocytosis with multiple likely sources noted (ankle wound, finger wound, pneumonia, others) Vascular work-up: ordered non invasive vascular studies Edema: elevate, edith wrap Healing optimization and nutrition: karyn nutritional supplement ordered Additional diagnostic data: will follow charts and test results Thanks for the consult. Please contact if questions. Podiatry team will follow while in house. ARMANDO Peña [facility] Contact via [employer] I performed this visit using real time telehealth tools including [email or web address] connection between my location and the patient's location. Prior to initiating the services, I obtained patient's verbal consent to perform this visit using telehealth tools and answered all the questions the patient had about the telehealth interaction. The patient has been explained that this is an interactive (audio / video) telehealth encounter and what that consists of. The patient understands and wishes to proceed. The patient understands the limitations of being examined in the remote setting. The physical exam is based on patient reported information and obtained through peripheral. Date consent obtained: 03-18-23 Reason for telehealth visit: different locations, need to place timely orders and plan Originating site (patient location): [facility] room 330 Distant site (provider location): [facility], [place] Start time of encounter: 20:58 End time of encounter: 21:06 The minutes spent with this patient are noted, over half of which was spent in counseling and coordination of care (55 min) * Mihai Barreto DO - 03/18/2023 1:57 PM ESTAssociated Order(s): IP CONSULT TO PERSONAL PROTECTION SPECIALIST; IP CONSULT TO NEPHROLOGY Reason For Consult Respiratory failure History Of Present Illness Cehryl De La Fuente is a 72 y.o. male presenting with shortness of breath. He presented to the emergency room secondary to shortness of breath that has been going on for 2 weeks. He recently saw urgent care and was diagnosed with pneumonia and was given doxycycline as an outpatient. He does have a cough. He denies fevers chills or sweats. He does have a history of COPD hedoes not use home oxygen. He was admitted to the hospital secondary to COPD with hypoxia This a.m. he states that he is feeling a little bit better currently He states that since admission he has felt fairly decent He denies cough or sputum production States that he has stopped abusing nicotine Past Medical History He has a past medical history of Atrial fibrillation ([facility]), COPD (chronic obstructive pulmonarydisease) (CMS/[facility]), Coronary artery disease, Hypertension, Hypothyroidism, and Stroke (CMS/HCC). Surgical History He has a past surgical history that includes Coronary stent placement and Sinus surgery (Bilateral). Social History He reports that he quit smoking about 18 years ago. His smoking use included cigarettes. His smokeless tobacco use includes snuff. He reports that he does not drink alcohol and does not use drugs. Family History No family history on file. Allergies Codeine Review of Systems A full 10 point review of systems was obtained is negative except HPI as above Physical Exam Physical Exam Constitutional: Appearance: Normal appearance. HENT: Head: Normocephalic and atraumatic. Right Ear: External ear normal. Left Ear: External ear normal. Nose: Nose normal. Mouth/Throat: Mouth: Mucous membranes are moist. Pharynx: Oropharynx is clear. Eyes: Extraocular Movements: Extraocular movements intact. Conjunctiva/sclera: Conjunctivae normal. Pupils: Pupils are equal, round, and reactive to light. Cardiovascular: Rate and Rhythm: Normal rate and regular rhythm. Pulmonary: Effort: Pulmonary effort is normal. Breath sounds: Wheezing and rhonchi present. Abdominal: General: Abdomen is flat. Palpations: Abdomen is soft. Skin: General: Skin is warm and dry. Findings: Erythema and lesion present. Comments: Left hand has an ulceration of the skin His right lower extremity also has an ulceration with redness and erythema Neurological: General: No focal deficit present. Mental Status: He is alert and oriented to person, place, and time. Psychiatric: Mood and Affect: Mood normal. Behavior: Behavior normal. I&O 24HR Intake/Output Summary (Last 24 hours) at 03/18/2023 1357 Last data filed at 03/18/2023 1340 Gross per 24 hour Intake 4665.94 ml Output 225 ml Net 4440.94 ml Vitals 24HR Heart Rate: [75-105] Temp: [36.3 C (97.3 F)-37.4 C (99.3 F)] Resp: [16-29] BP: (85-138)/(52-104) Height: [185.4 cm (6' 1)] Weight: [89.8 kg (198 lb)-90.6 kg (199 lb 11.8 oz)] SpO2: [94 %-97 %] Scheduled medications atorvastatin, 80 mg, oral, Nightly bacitracin, , Topical, TID budesonide, 0.5 mg, nebulization, BID clopidogrel, 75 mg, oral, Daily doxycycline, 100 mg, intravenous, q12h formoterol, 20 mcg, nebulization, BID ipratropium-albuteroL, 3 mL, nebulization, q4h levothyroxine, 75 mcg, oral, Daily piperacillin-tazobactam, 4.5 g, intravenous, q6h polyethylene glycol, 17 g, oral, Daily potassium chloride CR, 20 mEq, oral, Daily predniSONE, 40 mg, oral, Daily rivaroxaban, 20 mg, oral, Daily with evening meal sertraline, 100 mg, oral, Daily Continuous medications norepinephrine, 0.01-1 mcg/kg/min, Last Rate: Stopped (03/18/23 1230) sodium chloride 0.9%, 125 mL/hr, Last Rate: 125 mL/hr (03/18/23 1317) PRN medications PRN medications: ipratropium-albuteroL, oxygen Relevant Results Reviewed lab results and imaging studies Assessment/Plan Sepsis with source appearing to be skin especially the lower extremity Leukocytosis Acute renal failure COPD with exacerbation Shortness of breath Lactic acidosis that has now resolved Plan: At this time he has blood cultures and wound cultures pending He is currently on Zosyn and doxycycline I am going to change the doxycycline to vancomycin until we have cultures back He has evidence of sepsis he was already on doxycycline as an outpatient so we will change to vancomycin He is on breathing treatments Continue breathing treatments as he is on for now We will have to watch cultures closely He is on oral prednisone which I will leave He does have evidence of elevated inflammatory markers We will continue to follow wounds and cultures closely Thanks for the consult Principal Problem: COPD (chronic obstructive pulmonary disease) ([facility]) Mihai Barreto DO documented in this [facility] Work Phone: [phone] 103-153001-17-2024 Nurse Note* Selma Gandara RRT - 03/19/2023 9:30 AM EST COPD Education Patient Characteristics: Pt. Laying in bed on and off sleeping pt is wearing 2L NC no distress noted. Comorbidities: Exacerbation last year: Moderate: >= 2 exacerbations or >= 1 exacerbation leading to hospitalization Spirometry: Not recent Date: FVC: ( %) FEV1: ( %) FEV1/FVC: ( %) Uses of Oxygen/CPAP/BIPAP: Prior to this admission pt. Was not requiring any o2 CPAP/BIPAP. Smoking status: Smoker: Former PPY: 40 Quit date: unsure Smoking cessation counseling: Booklet given: Pulmonary physician: yes Name: Dr. Ocampo Date last seen: about 6 months ago Pharmacotherapy: Maintenance medications LABA, LAMA, LABA/LAMA, ICS/LABA, ICS/LAMA, ICS/LABA/LAMA, Name of the medication: Trelegy, Albuterol inhaler, Duoneb Nebulizer's. Prednisone: No Theophylline: No Roflumilast: No Macrolides: No If not on maintenance meds: Consider LAMA or LAMA/LABA Consider ICS (if peripheral eosinophilia >300cells/microl, COPD exacerbation requiring hospitalization, >= 2 moderated COPD exacerbation, History of or concomitant asthma) If low inspiratory force or challenges with inhalers Consider Nebulizers Consider RESPIMAT COPD Education COPD patient education book: Yes Inhaled medication teach-back: Yes RENEA, other videos: Patient demonstrated understanding/teach back method: Yes Home Oxygen Evaluation: Pt. Will need a home oxygen evaluation upon discharge. Even if pt. Weaned to RA at rest Pt. Daughter would like him walked to see if he needs the oxygen with activity. Daughter feels his SOB is most when walking that is why he as been so inactive. Pulmonary Rehabilitation referral: Already attended: When: Info in COPD patient education book Vaccines Influenza: Pneumococcal: COVID 19: Pertussis: Recommendations: Follow up with pulmonary within two weeks of discharge may benefit [facility]01-17-2024 Plan of care note* Care Plan - Selma Marie RN - 03/19/2023 5:42 AM EST The patient's goals for the shift include The clinical goals for the shift include pt will rest comfortably during this shift [facility]01-16-2024 History and physical note* Palomo Farnsworth MD - 03/18/2023 10:25 PM EST History Of Present Illness Cheryl De La Fuente is a 72 y.o. male presenting with shortness of breath, wheezing for 2 weeks and wasevaluated at urgent care a week ago treated for pneumonia with doxycycline but still having cough with greenish sputum and shortness of breath found to be hypoxic on room air. No oxygen use at home. Wounds on right index finger, right lower extremity leg and left hand. Has been wearing gloves in hands lately may have caused friction rub to dry skin but denies any trauma or puncture nail.. Right leg was scratched by his dog but no bite and no active bleeding but has ulceration with redness pain and mild swelling. Denies any fever chills or nausea vomiting diarrhea. Patient dropped pressure wasfound to be hypotensive and started on Levophed after giving IV fluids. No headache focal weakness.No back pain flank pain hematuria or dysuria. Cellulitis right lower extremity. Denies any smoking currently. No claudication. Denies any exertional dyspnea or paroxysmal nocturnal dyspnea or orthopnea. No chest pain or palpitations. No joint pains as such. Past Medical History Past Medical History: Diagnosis Date Atrial fibrillation (CMS/HCC) COPD (chronic obstructive pulmonary disease) (CMS/HCC) Coronary artery disease Hypertension Hypothyroidism Stroke (CMS/HCC) Hyperlipidemia And as above Surgical History Past Surgical History: Procedure Laterality Date CORONARY STENT PLACEMENT SINUS SURGERY Bilateral Social History He reports that he quit smoking about 18 years ago. His smoking use included cigarettes. His smokeless tobacco use includes snuff. He reports that he does not drink alcohol and does not use drugs. Family History Coronary artery disease and CVA Allergies Codeine Review of Systems All other 12 point review of systems negative except HPI Physical Exam General Appearance: AAO x 3, not in acute distress Skin: skin color pink, warm, and dry; no suspicious rashes or lesions Eyes : PERRL, EOM's intact ENT: mucous membranes pink and moist Neck: normocephalic Respiratory: Wheezing heart: regular rate and rhythm. telemetry shows sinus rhythm Abdomen: Nondistended, positive bowel sounds x4, soft, nontender Extremities: no edema, right lower extremity with cellulitis, electrolyte, ulcer, erythema, warmth,tenderness also right hand with index finger swelling with tenderness to palpation, slightly restricted motion, left hand with ulceration skin, dry skin Peripheral pulses: normal x4 extremities Neuro: alert, coherent and conversant, no focal motor deficits Last Recorded Vitals Blood pressure 125/81, pulse 92, temperature 37.2 C (99 F), resp. rate 20, height 1.854 m (6' 1), weight 90.6 kg (199 lb 11.8 oz), SpO2 94 %. Relevant Results Scheduled medications atorvastatin, 80 mg, oral, Nightly bacitracin, , Topical, TID budesonide, 0.5 mg, nebulization, BID clopidogrel, 75 mg, oral, Daily formoterol, 20 mcg, nebulization, BID ipratropium-albuteroL, 3 mL, nebulization, q4h lactobacillus acidophilus, 1 capsule, oral, Daily levothyroxine, 75 mcg, oral, Daily piperacillin-tazobactam, 4.5 g, intravenous, q6h polyethylene glycol, 17 g, oral, Daily potassium chloride CR, 20 mEq, oral, Daily predniSONE, 40 mg, oral, Daily rivaroxaban, 20 mg, oral, Daily with evening meal sertraline, 100 mg, oral, Daily vancomycin, 1,500 mg, intravenous, q24h Continuous medications sodium chloride 0.9%, 125 mL/hr, Last Rate: 125 mL/hr (03/18/231815) PRN medications PRN medications: ipratropium-albuteroL, oxygen ECG 12 lead Result Date: 03/18/2023 Sinus tachycardia Inferior infarct , age undetermined Abnormal ECG When compared with ECG of 06-JUN-2020 10:21, Previous ECG has undetermined rhythm, needs review Inferior infarct is now Present Nonspecific T wave abnormality no longer evident in Inferior leads Nonspecific T wave abnormality has replaced inverted T waves in Lateral leads See ED provider note for full interpretation and clinical correlation Confirmed by Josie Kramer ([id number]) on 03/18/2023 7:08:27 PM Transthoracic Echo (TTE) Complete Result Date: 03/18/2023 [place] [address] [phone], TRANSTHORACIC ECHOCARDIOGRAM REPORT Patient Name: CHERYL Wade Physician: [id number] Otero MD Study Date: 03/18/2023 Ordering Provider: [id number] PALOMO FARNSWORTH MRN/PID: [id number] Fellow: Nurse: Mariana Zamudio RN Date of /Age: 9 1950 / 72 years Beef Farmer: Faye Zimmerman RVT, RCS Gender: M Additional Staff: Height: 185.42 cm Admit Date: 03/17/2023 Weight: 89.81 kg Admission Status: Inpatient - Routine BSA: 2.14 m2 Department Location: [address]-ICU Blood Pressure: 119 /74 mmHg Study Type: TRANSTHORACIC ECHO (TTE) COMPLETE Diagnosis/ICD: Sepsis, unspecified organism-A41.9; Severe sepsis with septic shock-R65.21 Indication: Septic Shock CPT Codes: Echo Limited-82312; Doppler Limited-62078 Patient History: Pertinent History: COPD. No previous echo. Study Detail: The following Echo studies were performed: M-Mode, 2D, Doppler and color flow.Technically challenging study due to poor acoustic windows, patient lying in supine position and body habitus. Definity used as a contrast agent for endocardial border definition. Total contrast usedfor this procedure was 2 mL via IV push. A bubble study was not performed. The patient was awake. PHYSICIAN INTERPRETATION: Left Ventricle: Left ventricular systolic function was not well visualized.The left ventricular cavity size was not assessed. Left ventricular diastolic filling was not assessed. Left Atrium: The left atrium was not well visualized. Right Ventricle: The right ventricle was not well visualized. Unable to determine right ventricular systolic function. Right Atrium: The right atrium was not well visualized. Aortic Valve: The aortic valve was not well visualized. Aortic valve regurgitation was not assessed. The peak instantaneous gradient of the aortic valve is 5.4 mmHg. The mean gradient of the aortic valve is 3.0 mmHg. Mitral Valve: The mitral valve was not well visualized. Mitral valve regurgitation was not assessed. Tricuspid Valve: The tricuspid valve was not well visualized. Tricuspid regurgitation was not assessed. Pulmonic Valve: The pulmonic valve is not well visualized. The pulmonic valve regurgitation was not well visualized. Pericardium: There is no pericardial effusion noted. Aorta: The aortic root was not well visualized. CONCLUSIONS: 1. Non-diagnostic echocardiogram due to suboptimal image quality. 2. Left ventricular systolic function was not well visualized. QUANTITATIVE DATA SUMMARY: LV DIASTOLIC FUNCTION: Normal Ranges: MV Peak E: 0.54 m/s(0.7-1.2 m/s) MV Peak A: 1.13 m/s (0.42-0.7 m/s) E/A Ratio: 0.48 (1.0-2.2) MITRAL VALVE: Normal Ranges: MV DT: 194 msec (150-240msec) AORTIC VALVE: Normal Ranges: AoV Vmax: 1.16 m/s (<=1.7m/s) AoVPeak P.4 mmHg (<20mmHg) AoV Mean P.0 mmHg (1.7-11.5mmHg) LVOT Max Siddhartha: 0.95 m/s (<=1.1m/s) AoV VTI: 19.90 cm (18-25cm) LVOT VTI: 15.10 cm AoV Dimensionless Index: 0.76 RIGHT VENTRICLE: RV Basal 4.22 cm RV Mid 3.07 cm RV Major 9.0 cm TAPSE: 25.3 mm [id number] Arnold Otero MD Electronically signed on 03/18/2023 at 1:15:53 PM Final MN-XR CHEST 1 VIEW IMPORT Result Date: 03/18/2023 Images were obtained outside of [facility] CT-CT ANGIO CHEST FOR PULMONARY EMBOLISM IMPORT Result Date: 03/18/2023 Images were obtained outside of [facility] CT angio chest for pulmonary embolism Result Date: 03/17/2023 Interpreted By: Rubén Waller, STUDY: CT ANGIO CHEST FOR PULMONARY EMBOLISM; 03/17/2023 10:31 pmINDICATION: Signs/Symptoms:dyspnea. COMPARISON: Chest radiograph 03/17/2023 ACCESSION NUMBER(S): [id number] ORDERING CLINICIAN: QUINN CAMARILLO TECHNIQUE: Axial CTA images of the chest after intravenous administration of 74 mL Omnipaque [address] angiographic technique. Coronal and sagittal images are reconstructed. MIP images were created and reviewed. FINDINGS: CHEST WALL AND LOWER NECK:Within normal limits. ABDOMEN: Calcifications scattered throughout the spleen. VASCULAR: AORTA: No aortic aneurysm or dissection. Mild atherosclerotic disease. 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 PULMONARY ARTERY: Normal caliber. No pulmonary embolus to the segmental level. CHEST: HEART: Normal size. No pericardial effusion. There are coronary artery calcifications. MEDIASTINUM AND BENNY: No pathologically enlarged thoracic lymph nodes. LUNG, PLEURA, LARGE AIRWAYS: Moderate centrilobular emphysematous changes diffusely throughout the lungs. Dependent atelectasis. BONES: Age-indeterminate height loss of the T11 and T12 vertebral bodies. No acute pulmonary embolus to the segmental level. Moderate centrilobular emphysematous changes diffusely throughout the lungs Age-indeterminate height loss of the T11 and T12 vertebral bodies. Correlate with point tenderness. Calcifications scattered throughout the spleen which may be seen with sequela of granulomatous disease. 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 MACRO: None. Signed by: Rubén Waller 03/17/2023 11:02 PM Dictation workstation: [id number] XR chest 1 view Result Date: 03/17/2023 Interpreted By: Thanh Paulino, STUDY: XR CHEST 1 VIEW; 03/17/2023 8:15 pm INDICATION: Signs/Symptoms:cough. COMPARISON: 06/06/2020 ACCESSION NUMBER(S): [id number] ORDERING CLINICIAN: QUINN CAMARILLOFINDINGS: The cardiac silhouette is normal in size. No focal airspace consolidation or pleural effus ion. No pneumothorax. No airspace consolidation or pleural effusion. MACRO: None Signed by: Thanh Paulino 03/17/2023 8:39 PM Dictation workstation: [id number] Results for orders placed or performed during the hospital encounter of 03/17/23 (from the past 24 hour(s)) Lactate Result Value Ref Range Lactate 3.4 (H) 0.4 - 2.0 mmol/L Urinalysis with Reflex Culture and Microscopic Result Value Ref Range Color, Urine Straw Straw, Yellow Appearance, Urine Clear Clear Specific [place], Urine 1.029 1.005 - 1.035 pH, Urine 6.0 5.0, 5.5, 6.0, 6.5, 7.0, 7.5, 8.0 Protein, Urine NEGATIVE NEGATIVE mg/dL Glucose, Urine NEGATIVE NEGATIVE mg/dL Blood, Urine SMALL (1+) (A) NEGATIVE Ketones, Urine NEGATIVE NEGATIVE mg/dL Bilirubin, Urine NEGATIVE NEGATIVE Urobilinogen, Urine <2.0 <2.0 mg/dL Nitrite, Urine NEGATIVE NEGATIVE Leukocyte Esterase, Urine NEGATIVE NEGATIVE Urinalysis Microscopic Result Value Ref Range WBC, Urine NONE 1-5, NONE /HPF RBC, Urine 1-2 NONE, 1-2, 3-5 /HPF Lactate Result Value Ref Range Lactate 2.1 (H) 0.4 - 2.0 mmol/L ECG 12 lead Result Value Ref Range Ventricular Rate 101 BPM Atrial Rate 101 BPM MN Interval 142 ms QRS Duration 108 ms QT Interval 338 ms QTC Calculation(Bazett) 438 ms P [place] 55 degrees R [place] -4 degrees T [place] 92 degrees QRS Count 17 beats Q Onset 205 ms P Onset 134 ms P Offset 184 ms T Offset 374 ms QTC Fredericia 402 ms Procalcitonin Result Value Ref Range Procalcitonin 0.21 (H) <=0.07 ng/mL Lactate Result Value Ref Range Lactate 1.0 0.4 - 2.0 mmol/L Sedimentation rate, automated Result Value Ref Range Sedimentation Rate 67 (H) 0 - 20 mm/h C-reactive protein Result Value Ref Range C-Reactive Protein 15.43 (H) <1.00 mg/dL Transthoracic Echo (TTE) Complete Result Value Ref Range MV E/A ratio 0.48 AV pk siddhartha 1.16 AV mn grad 3.0 Tricuspid annular plane systolic excursion 2.5 AV pk grad 5.4 Assessment/Plan Principal Problem: COPD (chronic obstructive pulmonary disease) ([facility]) 72-year-old male with history of hypertension, hyperlipidemia, coronary artery disease, COPD, paroxysmal A-fib, hypothyroidism, CVA presented with right lower extremity cellulitis, wound in hands, LUCAS, sepsis, dehydration, lactic acidosis, COPD exacerbation with acute hypoxemic/hypercapnic respiratory failure EKG sinus tachycardia Severe sepsis with LUCAS Plan Nebs treatments Supplemental oxygen to wean off as tolerated On Levophed and keep MAP above 65 On vancomycin and Zosyn IV Follow blood and wound cultures Neb treatments Steroids Needs to see dermatology outpatient Check imaging CT with contrast right lower extremity Due to hypotension, can check echocardiogram Follow podiatry for local wound care Consider orthopedic evaluation for right index finger wound for possible drainage ESR CRP CTA chest with no pulmonary embolism. 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 and follow vascular outpatient Follow vitals and control within reasonable range Echocardiogram Trend lactate until normal Hold pressure medicines Statins for hyperlipidemia On Plavix Also continue with Xarelto Daily CBC BMP and monitor urine output Continue home medicines as tolerated Avoid hypotension and nephrotoxic medicines DVT prophylaxis addressed per policy Local skin care Peripheral vascular studies per podiatry CT right lower extremity to evaluate any abscess Critical care time spent in managing patient excluding billable procedures greater than 50 minutes High risk of clinical deterioration during cardiopulmonary arrest and multiorgan failure due to aforementioned reasons Cardiopulmonary monitoring and follow vitals Monitor clinical response Replete electrolytes as needed On Synthroid for hypothyroidism Palomo Farnsworth MD [facility] Work Phone: [phone] History and physical note* Palomo Farnsworth MD - 03/18/2023 10:25 PM EST History Of Present Illness Cheryl De La Fuente is a 72 y.o. male presenting with shortness of breath, wheezing for 2 weeks and wasevaluated at urgent care a week ago treated for pneumonia with doxycycline but still having cough with greenish sputum and shortness of breath found to be hypoxic on room air. No oxygen use at home. Wounds on right index finger, right lower extremity leg and left hand. Has been wearing gloves in hands lately may have caused friction rub to dry skin but denies any trauma or puncture nail.. Right leg was scratched by his dog but no bite and no active bleeding but has ulceration with redness pain and mild swelling. Denies any fever chills or nausea vomiting diarrhea. Patient dropped pressure wasfound to be hypotensive and started on Levophed after giving IV fluids. No headache focal weakness.No back pain flank pain hematuria or dysuria. Cellulitis right lower extremity. Denies any smoking currently. No claudication. Denies any exertional dyspnea or paroxysmal nocturnal dyspnea or orthopnea. No chest pain or palpitations. No joint pains as such. Past Medical History Past Medical History: Diagnosis Date Atrial fibrillation (CMS/HCC) COPD (chronic obstructive pulmonary disease) (CMS/HCC) Coronary artery disease Hypertension Hypothyroidism Stroke (CMS/HCC) Hyperlipidemia And as above Surgical History Past Surgical History: Procedure Laterality Date CORONARY STENT PLACEMENT SINUS SURGERY Bilateral Social History He reports that he quit smoking about 18 years ago. His smoking use included cigarettes. His smokeless tobacco use includes snuff. He reports that he does not drink alcohol and does not use drugs. Family History Coronary artery disease and CVA Allergies Codeine Review of Systems All other 12 point review of systems negative except HPI Physical Exam General Appearance: AAO x 3, not in acute distress Skin: skin color pink, warm, and dry; no suspicious rashes or lesions Eyes : PERRL, EOM's intact ENT: mucous membranes pink and moist Neck: normocephalic Respiratory: Wheezing heart: regular rate and rhythm. telemetry shows sinus rhythm Abdomen: Nondistended, positive bowel sounds x4, soft, nontender Extremities: no edema, right lower extremity with cellulitis, electrolyte, ulcer, erythema, warmth,tenderness also right hand with index finger swelling with tenderness to palpation, slightly restricted motion, left hand with ulceration skin, dry skin Peripheral pulses: normal x4 extremities Neuro: alert, coherent and conversant, no focal motor deficits Last Recorded Vitals Blood pressure 125/81, pulse 92, temperature 37.2 C (99 F), resp. rate 20, height 1.854 m (6' 1), weight 90.6 kg (199 lb 11.8 oz), SpO2 94 %. Relevant Results Scheduled medications atorvastatin, 80 mg, oral, Nightly bacitracin, , Topical, TID budesonide, 0.5 mg, nebulization, BID clopidogrel, 75 mg, oral, Daily formoterol, 20 mcg, nebulization, BID ipratropium-albuteroL, 3 mL, nebulization, q4h lactobacillus acidophilus, 1 capsule, oral, Daily levothyroxine, 75 mcg, oral, Daily piperacillin-tazobactam, 4.5 g, intravenous, q6h polyethylene glycol, 17 g, oral, Daily potassium chloride CR, 20 mEq, oral, Daily predniSONE, 40 mg, oral, Daily rivaroxaban, 20 mg, oral, Daily with evening meal sertraline, 100 mg, oral, Daily vancomycin, 1,500 mg, intravenous, q24h Continuous medications sodium chloride 0.9%, 125 mL/hr, Last Rate: 125 mL/hr (03/18/231815) PRN medications PRN medications: ipratropium-albuteroL, oxygen ECG 12 lead Result Date: 03/18/2023 Sinus tachycardia Inferior infarct , age undetermined Abnormal ECG When compared with ECG of 06-JUN-2020 10:21, Previous ECG has undetermined rhythm, needs review Inferior infarct is now Present Nonspecific T wave abnormality no longer evident in Inferior leads Nonspecific T wave abnormality has replaced inverted T waves in Lateral leads See ED provider note for full interpretation and clinical correlation Confirmed by Josie Kramer ([id number]) on 03/18/2023 7:08:27 PM Transthoracic Echo (TTE) Complete Result Date: 03/18/2023 [place] [id number], TRANSTHORACIC ECHOCARDIOGRAM REPORT Patient Name: CHERYL DE LA FUENTE Reading Physician: [id number] Otero MD Study Date: 03/18/2023 Ordering Provider: [id number] PALOMO FARNSWORTH MRN/PID: [id number] Fellow: Nurse: Mariana Zamudio RN Date of /Age: 9 1950 / 72 years 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 No previous echo. Study Detail: The following Echo studies were performed: M-Mode, 2D, Doppler and color flow.Technically challenging study due to poor acoustic windows, patient lying in supine position and body habitus. Definity used as a contrast agent for endocardial border definition. Total contrast usedfor this procedure was 2 mL via IV push. A bubble study was not performed. The patient was awake. PHYSICIAN INTERPRETATION: Left Ventricle: Left ventricular systolic function was not well visualized.The left ventricular cavity size was not assessed. Left ventricular diastolic filling was not assessed. Left Atrium: The left atrium was not well visualized. Right Ventricle: The right ventricle was not well visualized. Unable to determine right ventricular systolic function. Right Atrium: The right atrium was not well visualized. Aortic Valve: The aortic valve was not well visualized. Aortic valve regurgitation was not assessed. The peak instantaneous gradient of the aortic valve is 5.4 mmHg. The mean gradient of the aortic valve is 3.0 mmHg. Mitral Valve: The mitral valve was not well visualized. Mitral valve regurgitation was not assessed. Tricuspid Valve: The tricuspid valve was not well visualized. Tricuspid regurgitation was not assessed. Pulmonic Valve: The pulmonic valve is not well visualized. The pulmonic valve regurgitation was not well visualized. Pericardium: There is no pericardial effusion noted. Aorta: The aortic root was not well visualized. CONCLUSIONS: 1. Non-diagnostic echocardiogram due to suboptimal image quality. 2. Left ventricular systolic function was not well visualized. QUANTITATIVE DATA SUMMARY: LV DIASTOLIC FUNCTION: Normal Ranges: MV Peak E: 0.54 m/s(0.7-1.2 m/s) MV Peak A: 1.13 m/s (0.42-0.7 m/s) E/A Ratio: 0.48 (1.0-2.2) MITRAL VALVE: Normal Ranges: MV DT: 194 msec (150-240msec) AORTIC VALVE: Normal Ranges: AoV Vmax: 1.16 m/s (<=1.7m/s) AoVPeak P.4 mmHg (<20mmHg) AoV Mean P.0 mmHg (1.7-11.5mmHg) LVOT Max Siddhartha: 0.95 m/s (<=1.1m/s) AoV VTI: 19.90 cm (18-25cm) LVOT VTI: 15.10 cm AoV Dimensionless Index: 0.76 RIGHT VENTRICLE: RV Basal 4.22 cm RV Mid 3.07 cm RV Major 9.0 cm TAPSE: 25.3 mm [id number] Arnold Otero MD Electronically signed on 03/18/2023 at 1:15:53 PM Final MN-XR CHEST 1 VIEW IMPORT Result Date: 03/18/2023 Images were obtained outside of [facility] CT-CT ANGIO CHEST FOR PULMONARY EMBOLISM IMPORT Result Date: 03/18/2023 Images were obtained outside of [facility] CT angio chest for pulmonary embolism Result Date: 03/17/2023 Interpreted By: Rubén Waller, STUDY: CT ANGIO CHEST FOR PULMONARY EMBOLISM; 03/17/2023 10:31 pmINDICATION: Signs/Symptoms:dyspnea. COMPARISON: Chest radiograph 03/17/2023 ACCESSION NUMBER(S): [id number] ORDERING CLINICIAN: QUINN CAMARILLO TECHNIQUE: Axial CTA images of the chest after intravenous administration of 74 mL Omnipaque [address] angiographic technique. Coronal and sagittal images are reconstructed. MIP images were created and reviewed. FINDINGS: CHEST WALL AND LOWER NECK:Within normal limits. ABDOMEN: Calcifications scattered throughout the spleen. VASCULAR: AORTA: No aortic aneurysm or dissection. Mild atherosclerotic disease. 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 PULMONARY ARTERY: Normal caliber. No pulmonary embolus to the segmental level. CHEST: HEART: Normal size. No pericardial effusion. There are coronary artery calcifications. MEDIASTINUM AND BENNY: No pathologically enlarged thoracic lymph nodes. LUNG, PLEURA, LARGE AIRWAYS: Moderate centrilobular emphysematous changes diffusely throughout the lungs. Dependent atelectasis. BONES: Age-indeterminate height loss of the T11 and T12 vertebral bodies. No acute pulmonary embolus to the segmental level. Moderate centrilobular emphysematous changes diffusely throughout the lungs Age-indeterminate height loss of the T11 and T12 vertebral bodies. Correlate with point tenderness. Calcifications scattered throughout the spleen which may be seen with sequela of granulomatous disease. 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 MACRO: None. Signed by: Rubén Waller 03/17/2023 11:02 PM Dictation workstation: [id number] XR chest 1 view Result Date: 03/17/2023 Interpreted By: Thanh Paulino, STUDY: XR CHEST 1 VIEW; 03/17/2023 8:15 pm INDICATION: Signs/Symptoms:cough. COMPARISON: 06/06/2020 ACCESSION NUMBER(S): [id number] ORDERING CLINICIAN: QUINN LING: The cardiac silhouette is normal in size. No focal airspace consolidation or pleural effus ion. No pneumothorax. No airspace consolidation or pleural effusion. MACRO: None Signed by: Thanh Paulino 03/17/2023 8:39 PM Dictation workstation: [id number] Results for orders placed or performed during the hospital encounter of 03/17/23 (from the past 24 hour(s)) Lactate Result Value Ref Range Lactate 3.4 (H) 0.4 - 2.0 mmol/L Urinalysis with Reflex Culture and Microscopic Result Value Ref Range Color, Urine Straw Straw, Yellow Appearance, Urine Clear Clear Specific [place], Urine 1.029 1.005 - 1.035 pH, Urine 6.0 5.0, 5.5, 6.0, 6.5, 7.0, 7.5, 8.0 Protein, Urine NEGATIVE NEGATIVE mg/dL Glucose, Urine NEGATIVE NEGATIVE mg/dL Blood, Urine SMALL (1+) (A) NEGATIVE Ketones, Urine NEGATIVE NEGATIVE mg/dL Bilirubin, Urine NEGATIVE NEGATIVE Urobilinogen, Urine <2.0 <2.0 mg/dL Nitrite, Urine NEGATIVE NEGATIVE Leukocyte Esterase, Urine NEGATIVE NEGATIVE Urinalysis Microscopic Result Value Ref Range WBC, Urine NONE 1-5, NONE /HPF RBC, Urine 1-2 NONE, 1-2, 3-5 /HPF Lactate Result Value Ref Range Lactate 2.1 (H) 0.4 - 2.0 mmol/L ECG 12 lead Result Value Ref Range Ventricular Rate 101 BPM Atrial Rate 101 BPM MN Interval 142 ms QRS Duration 108 ms QT Interval 338 ms QTC Calculation(Bazett) 438 ms P [place] 55 degrees R [place] -4 degrees T [place] 92 degrees QRS Count 17 beats Q Onset 205 ms P Onset 134 ms P Offset 184 ms T Offset 374 ms QTC Fredericia 402 ms Procalcitonin Result Value Ref Range Procalcitonin 0.21 (H) <=0.07 ng/mL Lactate Result Value Ref Range Lactate 1.0 0.4 - 2.0 mmol/L Sedimentation rate, automated Result Value Ref Range Sedimentation Rate 67 (H) 0 - 20 mm/h C-reactive protein Result Value Ref Range C-Reactive Protein 15.43 (H) <1.00 mg/dL Transthoracic Echo (TTE) Complete Result Value Ref Range MV E/A ratio 0.48 AV pk siddhartha 1.16 AV mn grad 3.0 Tricuspid annular plane systolic excursion 2.5 AV pk grad 5.4 Assessment/Plan Principal Problem: COPD (chronic obstructive pulmonary disease) ([facility]) 72-year-old male with history of hypertension, hyperlipidemia, coronary artery disease, COPD, paroxysmal A-fib, hypothyroidism, CVA presented with right lower extremity cellulitis, wound in hands, LUCAS, sepsis, dehydration, lactic acidosis, COPD exacerbation with acute hypoxemic/hypercapnic respiratory failure EKG sinus tachycardia Severe sepsis with LUCAS Plan Nebs treatments Supplemental oxygen to wean off as tolerated On Levophed and keep MAP above 65 On vancomycin and Zosyn IV Follow blood and wound cultures Neb treatments Steroids Needs to see dermatology outpatient Check imaging CT with contrast right lower extremity Due to hypotension, can check echocardiogram Follow podiatry for local wound care Consider orthopedic evaluation for right index finger wound for possible drainage ESR CRP CTA chest with no pulmonary embolism. 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 and follow vascular outpatient Follow vitals and control within reasonable range Echocardiogram Trend lactate until normal Hold pressure medicines Statins for hyperlipidemia On Plavix Also continue with Xarelto Daily CBC BMP and monitor urine output Continue home medicines as tolerated Avoid hypotension and nephrotoxic medicines DVT prophylaxis addressed per policy Local skin care Peripheral vascular studies per podiatry CT right lower extremity to evaluate any abscess Critical care time spent in managing patient excluding billable procedures greater than 50 minutes High risk of clinical deterioration during cardiopulmonary arrest and multiorgan failure due to aforementioned reasons Cardiopulmonary monitoring and follow vitals Monitor clinical response Replete electrolytes as needed On Synthroid for hypothyroidism Palomo Farnsworth MD * Kelvin Garcias MD - 03/18/2023 7:34 AM EST History Of Present Illness Cheryl De La Fuente is a 72 y.o. male Was called by the EMS to the emergency room for 2 weeks history of progressively worsening shortness of breath. When the squad arrived, it was noted that patient hada saturation oxygen of 83%. On presentation to the ER; blood pressure 135/87, respiratory rate 16, afebrile, and heart rate 85. Pertinent findings on blood workup; WBC count 17,200, creatinine 1.38, BUN 33, albumin 3.3, lactic acid 5.1. BNP 202. Urinalysis did not show any significant findings. COVID-19 and influenza came back negative. 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 While in the emergency room, patient's blood pressure startedto drop requiring IV fluids followed by initiation of Levophed. Patient was also given Solu-Medrol,DuoNebs, ceftriaxone, azithromycin, and then admitted to the medical service for further investigation and management. Upon encounter now, patient reports feeling better. Still having a cough. No fever or chills. Stillhaving shortness of breath but not as severe as before. No nausea or vomiting. On 03/10/2023, patient went to the urgent care and was given a prescription of doxycycline for pneumonia. He did take the medication but without clinical improvement. Still feeling chest congestion. ROS 10 systems were reviewed and were negative except for those noted in the history of present illness. Past Medical History Past Medical History: Diagnosis Date Atrial fibrillation (CMS/HCC) COPD (chronic obstructive pulmonary disease) (CMS/HCC) Coronary artery disease Hypertension Hypothyroidism Stroke (CMS/[facility]) Pertinent medical history also documented in my below narrative Surgical History Past Surgical History: Procedure Laterality Date CORONARY STENT PLACEMENT SINUS SURGERY Bilateral Pertinent surgical history also documented in my below narrative Social History He reports that he quit smoking about 18 years ago. His smoking use included cigarettes. His smokeless tobacco use includes snuff. He reports that he does not drink alcohol and does not use drugs. Family History No family history on file. Allergies Codeine Medications Prior to Admission Medication Sig Dispense Refill Last Dose albuterol 2.5 mg /3 mL (0.083 %) nebulizer solution USE 1 VIAL VIA NEBULIZER EVERY 4 HOURS NEEDED for SHORTNESS OF BREATH or FOR WHEEZING Unknown amLODIPine (Norvasc) 5 mg tablet Take 1 tablet (5 mg) by mouth once daily. 03/17/2023 at 1600 atorvastatin (Lipitor) 80 mg tablet 03/17/2023 at 2345 doxycycline (Adoxa) 100 mg tablet Take 1 tablet (100 mg) by mouth 2 times a day for 10 days. Take with a full glass of water and do not lie down for at least 30 minutes after 20 tablet 0 03/17/2023 [id number] fluticasone (Flonase Allergy Relief) 50 mcg/actuation nasal spray Administer into affected nostril(s). Unknown furosemide (Lasix) 20 mg tablet TAKE ONE-HALF TABLET (10mg) BY MOUTH EVERY OTHER DAY 03/17/2023 at 1600 ipratropium (Atrovent) 0.02 % nebulizer solution USe contents OF 1 (ONE) vial via nebulizer EVERY 6HOURS NEEDED for SHORTNESS OF BREATH or FOR WHEEZING Unknown ipratropium-albuteroL (Duo-Neb) 0.5-2.5 mg/3 mL nebulizer solution Take 3 mL by nebulization every 6 hours if needed for wheezing. 180 mL 0 Unknown levothyroxine (Synthroid, Levoxyl) 75 mcg tablet Take 1 tablet (75 mcg) by mouth once daily. 03/17/2023 at 1600 losartan (Cozaar) 100 mg tablet 03/17/2023 at 1600 metoprolol succinate XL (Toprol-XL) 50 mg 24 hr tablet Take 1 tablet (50 mg) by mouth once daily. Unknown montelukast (Singulair) 10 mg tablet Take 1 tablet (10 mg) by mouth once daily at bedtime. 03/17/2023 at 2345 nitroglycerin (Nitrostat) 0.4 mg SL tablet DISSOLVE 1 TABLET UNDER THE TONGUE NEEDED FOR CHEST PAIN- MAY REPEAT EVERY 5 MINUTES IF NEEDED ( MAX 3 DOSES.- IF NO RELIEF CALL 911) Unknown Plavix 75 mg tablet Take 1 tablet (75 mg) by mouth once daily. 03/17/2023 at 1600 potassium chloride CR 20 mEq ER tablet Unknown predniSONE (Deltasone) 10 mg tablet Take 1 tablet (10 mg) by mouth once daily. 03/17/2023 at 1600 [] predniSONE (Deltasone) 10 mg tablet Take 6 tablets (60 mg) by mouth once daily for 1 day,THEN 5 tablets (50 mg) once daily for 1 day, THEN 4 tablets (40 mg) once daily for 1 day, THEN 3 tablets (30 mg) once daily for 1 day, THEN 2 tablets (20 mg) once daily for 1 day, THEN 1 tablet (10 mg) once daily for 1 day. 21 tablet 0 sertraline (Zoloft) 100 mg tablet 03/17/2023 at 1600 spironolactone (Aldactone) 25 mg tablet 03/17/2023 at 1600 Trelegy Ellipta 100-62.5-25 mcg blister with device Unknown Xarelto 20 mg tablet Take by mouth. 03/17/2023 at 2345 Last Recorded Vitals Blood pressure 110/71, pulse 82, temperature 36.3 C (97.3 F), temperature source Temporal, resp. rate 20, height 1.854 m (6' 1), weight 90.6 kg (199 lb 11.8 oz), SpO2 97 %. Physical Exam Constitutional: General: He is not in acute distress. Appearance: He is ill-appearing. Comments: Awake alert and oriented x3 HENT: Mouth/Throat: Pharynx: Oropharynx is clear. Eyes: Pupils: Pupils are equal, round, and reactive to light. Cardiovascular: Rate and Rhythm: Normal rate and regular rhythm. Heart sounds: Normal heart sounds. Pulmonary: Effort: No respiratory distress. Breath sounds: Wheezing and rhonchi present. Abdominal: General: Abdomen is flat. Bowel sounds are normal. There is no distension. Palpations: Abdomen is soft. Tenderness: There is no abdominal tenderness. Musculoskeletal: General: No swelling. Skin: Comments: Left dorsal hand skin ulceration. ight lower extremity erythema with warmth and tenderness and ulceration. Neurological: General: No focal deficit present. Psychiatric: Mood and Affect: Mood normal. Behavior: Behavior normal. Thought Content: Thought content normal. Judgment: Judgment normal. Relevant Results Results for orders placed or performed during the hospital encounter of 03/17/23 (from the past 24 hour(s)) Influenza A, and B PCR Result Value Ref Range Flu A Result Not Detected Not Detected Flu B Result Not Detected Not Detected SARS-CoV-2 RT PCR Result Value Ref Range Coronavirus 2019, PCR Not Detected Not Detected CBC and Auto Differential Result Value Ref Range WBC 17.2 (H) 4.4 - 11.3 x10*3/uL nRBC 0.1 (H) 0.0 - 0.0 /100 WBCs RBC 4.45 (L) 4.50 - 5.90 x10*6/uL Hemoglobin 13.8 13.5 - 17.5 g/dL Hematocrit 43.8 41.0 - 52.0 % MCV 98 80 - 100 fL MCH 31.0 26.0 - 34.0 pg MCHC 31.5 (L) 32.0 - 36.0 g/dL RDW 12.6 11.5 - 14.5 % Platelets 298 150 - 450 x10*3/uL Neutrophils % 86.0 40.0 - 80.0 % Immature Granulocytes %, Automated 2.3 (H) 0.0 - 0.9 % Lymphocytes % 5.3 13.0 - 44.0 % Monocytes % 6.1 2.0 - 10.0 % Eosinophils % 0.1 0.0 - 6.0 % Basophils % 0.2 0.0 - 2.0 % Neutrophils Absolute 14.82 (H) 1.60 - 5.50 x10*3/uL Immature Granulocytes Absolute, Automated 0.40 0.00 - 0.50 x10*3/uL Lymphocytes Absolute 0.92 0.80 - 3.00 x10*3/uL Monocytes Absolute 1.06 (H) 0.05 - 0.80 x10*3/uL Eosinophils Absolute 0.01 0.00 - 0.40 x10*3/uL Basophils Absolute 0.03 0.00 - 0.10 x10*3/uL Comprehensive Metabolic Panel Result Value Ref Range Glucose 111 (H) 74 - 99 mg/dL Sodium 138 136 - 145 mmol/L Potassium 3.9 3.5 - 5.3 mmol/L Chloride 101 98 - 107 mmol/L Bicarbonate 24 21 - 32 mmol/L Anion Gap 17 10 - 20 mmol/L Urea Nitrogen 33 (H) 6 - 23 mg/dL Creatinine 1.38 (H) 0.50 - 1.30 mg/dL eGFR 54 (L) >60 mL/min/1.73m*2 Calcium 9.3 8.6 - 10.3 mg/dL Albumin 3.3 (L) 3.4 - 5.0 g/dL Alkaline Phosphatase 80 33 - 136 U/L Total Protein 6.7 6.4 - 8.2 g/dL AST 25 9 - 39 U/L Bilirubin, Total 0.7 0.0 - 1.2 mg/dL ALT 18 10 - 52 U/L Lactate Result Value Ref Range Lactate 5.1 (HH) 0.4 - 2.0 mmol/L Blood Culture Specimen: Peripheral Venipuncture; Blood culture Result Value Ref Range Blood Culture Loaded on Instrument - Culture in progress Blood Culture Specimen: Peripheral Venipuncture; Blood culture Result Value Ref Range Blood Culture Loaded on Instrument - Culture in progress Troponin I, High Sensitivity Result Value Ref Range Troponin I, High Sensitivity 38 (H) 0 - 20 ng/L B-Type Natriuretic Peptide Result Value Ref Range BNP 202 (H) 0 - 99 pg/mL Light Blue Top Result Value Ref Range Extra Tube Hold for add-ons. SST TOP Result Value Ref Range Extra Tube Hold for add-ons. Troponin I, High Sensitivity Result Value Ref Range Troponin I, High Sensitivity 33 (H) 0 - 20 ng/L Lactate Result Value Ref Range Lactate 3.4 (H) 0.4 - 2.0 mmol/L Urinalysis with Reflex Culture and Microscopic Result Value Ref Range Color, Urine Straw Straw, Yellow Appearance, Urine Clear Clear Specific [place], Urine 1.029 1.005 - 1.035 pH, Urine 6.0 5.0, 5.5, 6.0, 6.5, 7.0, 7.5, 8.0 Protein, Urine NEGATIVE NEGATIVE mg/dL Glucose, Urine NEGATIVE NEGATIVE mg/dL Blood, Urine SMALL (1+) (A) NEGATIVE Ketones, Urine NEGATIVE NEGATIVE mg/dL Bilirubin, Urine NEGATIVE NEGATIVE Urobilinogen, Urine <2.0 <2.0 mg/dL Nitrite, Urine NEGATIVE NEGATIVE Leukocyte Esterase, Urine NEGATIVE NEGATIVE Urinalysis Microscopic Result Value Ref Range WBC, Urine NONE 1-5, NONE /HPF RBC, Urine 1-2 NONE, 1-2, 3-5 /HPF Lactate Result Value Ref Range Lactate 2.1 (H) 0.4 - 2.0 mmol/L ECG 12 lead Result Value Ref Range Ventricular Rate 101 BPM Atrial Rate 101 BPM MN Interval 142 ms QRS Duration 108 ms QT Interval 338 ms QTC Calculation(Bazett) 438 ms P [place] 55 degrees R [place] -4 degrees T [place] 92 degrees QRS Count 17 beats Q Onset 205 ms P Onset 134 ms P Offset 184 ms T Offset 374 ms QTC Fredericia 402 ms ECG 12 lead Result Date: 03/18/2023 Sinus tachycardia Inferior infarct , age undetermined Abnormal ECG When compared with ECG of 06-JUN-2020 10:21, Previous ECG has undetermined rhythm, needs review Inferior infarct is now Present Nonspecific T wave abnormality no longer evident in Inferior leads Nonspecific T wave abnormality has replaced inverted T waves in Lateral leads CT angio chest for pulmonary embolism Result Date: 03/17/2023 Interpreted By: Rubén Waller, STUDY: CT ANGIO CHEST FOR PULMONARY EMBOLISM; 03/17/2023 10:31 pmINDICATION: Signs/Symptoms:dyspnea. COMPARISON: Chest radiograph 03/17/2023 ACCESSION NUMBER(S): [id number] ORDERING CLINICIAN: QUINN CAMARILLO TECHNIQUE: Axial CTA images of the chest after intravenous administration of 74 mL Omnipaque [address] angiographic technique. Coronal and sagittal images are reconstructed. MIP images were created and reviewed. FINDINGS: CHEST WALL AND LOWER NECK:Within normal limits. ABDOMEN: Calcifications scattered throughout the spleen. VASCULAR: AORTA: No aortic aneurysm or dissection. Mild atherosclerotic disease. 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 PULMONARY ARTERY: Normal caliber. No pulmonary embolus to the segmental level. CHEST: HEART: Normal size. No pericardial effusion. There are coronary artery calcifications. MEDIASTINUM AND BENNY: No pathologically enlarged thoracic lymph nodes. LUNG, PLEURA, LARGE AIRWAYS: Moderate centrilobular emphysematous changes diffusely throughout the lungs. Dependent atelectasis. BONES: Age-indeterminate height loss of the T11 and T12 vertebral bodies. No acute pulmonary embolus to the segmental level. Moderate centrilobular emphysematous changes diffusely throughout the lungs Age-indeterminate height loss of the T11 and T12 vertebral bodies. Correlate with point tenderness. Calcifications scattered throughout the spleen which may be seen with sequela of granulomatous disease. 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 MACRO: None. Signed by: Rubén Waller 03/17/2023 11:02 PM Dictation workstation: [id number] XR chest 1 view Result Date: 03/17/2023 Interpreted By: Thanh Paulino, STUDY: XR CHEST 1 VIEW; 03/17/2023 8:15 pm INDICATION: Signs/Symptoms:cough. COMPARISON: 06/06/2020 ACCESSION NUMBER(S): [id number] ORDERING CLINICIAN: QUINN LING: The cardiac silhouette is normal in size. No focal airspace consolidation or pleural effus ion. No pneumothorax. No airspace consolidation or pleural effusion. MACRO: None Signed by: Thanh Paulino 03/17/2023 8:39 PM Dictation workstation: [id number] Assessment/Plan 72-year-old male, smoker, with a past medical history of coronary artery disease s/p cardiac stentsplacement, right lower extremity cellulitis, nicotine dependence, diastolic CHF, paroxysmal atrial fibrillation, hypertension, hyperlipidemia, CVA, TIA, and COPD and who was diagnosed with pneumonia around a week ago and given a prescription of doxycycline, now presenting to the emergency room for progressively worsening shortness of breath despite taking the antibiotics. Patient was found to have an acute hypoxemic respiratory failure associated with leukocytosis, hypotension, lactic acidosis.On physical exam, he was noted to have a left hand skin ulceration. And he has right lower extremity erythema with warmth and tenderness and ulceration. Admit patient to the intensive care unit. Telemetry and vital signs monitoring. Continue treating with the IV Zosyn and IV doxycycline. Consult critical care. Continue with IV fluids. Continue with the Levophed. Nebulizer treatments. Continue with the current dose of oral prednisone. Resume home medications SCDs for DVT prophylaxis Full code I have reviewed and evaluated the most recent data and results, personally examined the patient, and formulated the plan of care as presented above. Patient is at-risk for clinically significant deterioration / failure due to the above mentioned dysfunctional, unstable organ systems and requires continued critical care treatment. I have personally identified and managed all complex critical care issues to prevent aforementioned clinical deterioration. 60 minutes were spent in the critical care management of the patient excluding billable procedures (This note was generated with voice recognition software and may contain errors including spelling,grammar, syntax and misrecognition of what was dictated, that are not fully corrected) Kelvin Garcias MD [facility] Work Phone: [phone] Consult note* Libertad Berkowitz DPM - 03/18/2023 8:51 PM EST Consults Reason For Consult Right lower leg wound with infection History Of Present Illness Cheryl De La Fuente is a 72 y.o. male was admitted for pneumonia and lower right extremity wound with concern of infection. He reports his dog scratched him about 3 weeks ago and then it became painful and red about 10 days ago. He denies odor. He had a CT scan done today and has elevated lab infectionmarkers. He denies h/o prior lower extremity wound, claudication, chronic limb swelling or neuropathy. He consents to telehealth visit and his nurse is present during the exam on [facility]. Past Medical History He has a past medical history of Atrial fibrillation ([facility]), COPD (chronic obstructive pulmonarydisease) (CMS/[facility]), Coronary artery disease, Hypertension, Hypothyroidism, and Stroke (CMS/HCC). Surgical History He has a past surgical history that includes Coronary stent placement and Sinus surgery (Bilateral). Social History He reports that he quit smoking about 18 years ago. His smoking use included cigarettes. His smokeless tobacco use includes snuff. He reports that he does not drink alcohol and does not use drugs. Family History No family history on file. Allergies Codeine Review of Systems Denies fever, chills, nausea, vomiting. Denies calf pain Physical Exam Alert and oriented, pleasant -- telehealth exam assisted with nurse Integument: Skin turgor is thin and atrophic without infection, ecchymosis, odor or necrosis. Skin discontinuity is noted medial posterior right ankle with fibrous base and possible localized purulence. Erythema is intense and hyperpigmented to ankle and extends to the knee level. Vascular: Hair is not present to lower extremities. Lower extremity edema. DP and PT pulses are unknown. Edema right lower extremity is apparent Neurological: Epicritic sensation is intact via light touch to lower extremities equal and symmetrical and lacking with 10 g [place] Suly monofilament. Negative Babinski. Negative clonus. Musculoskeletal: Active range of motion digits bilateral. Pain on palpation right lower extremity wound. Rectus right ankle and foot Last Recorded Vitals Blood pressure 125/81, pulse 92, temperature 37.2 C (99 F), resp. rate 20, height 1.854 m (6' 1), weight 90.6 kg (199 lb 11.8 oz), SpO2 94 %. Relevant Results CT foot and leg pending Xray foot, ankle , leg right pending WBC 17.2, ESR 67, CRP 15.43, GFR 54, Alb 3.3, glu 111 Culture right lower leg wound results pending Blood cultures pending TTE non diagnostic with left ventricular function not well visualized Assessment/Plan I reviewed and discussed the case including diagnostic data. The following care recommendations andintervention was performed: Debridement: will be considered at follow up visit Dressing care: betadine wet to dry Offloading: avoid direct pressure at wound Weightbearing status: as tolerated Infection management: Continue broad Spectrum AB (vanc/zosyn). CT and XR results pending. Cultures pending. Lab trends will be followed. Leukocytosis with multiple likely sources noted (ankle wound, finger wound, pneumonia, others) Vascular work-up: ordered non invasive vascular studies Edema: elevate, edith wrap Healing optimization and nutrition: karyn nutritional supplement ordered Additional diagnostic data: will follow charts and test results Thanks for the consult. Please contact if questions. Podiatry team will follow while in house. ARMANDO Peña [facility] Contact via [employer] I performed this visit using real time telehealth tools including [email or web address] connection between my location and the patient's location. Prior to initiating the services, I obtained patient's verbal consent to perform this visit using telehealth tools and answered all the questions the patient had about the telehealth interaction. The patient has been explained that this is an interactive (audio / video) telehealth encounter and what that consists of. The patient understands and wishes to proceed. The patient understands the limitations of being examined in the remote setting. The physical exam is based on patient reported information and obtained through peripheral. Date consent obtained: 03-18-23 Reason for telehealth visit: different locations, need to place timely orders and plan Originating site (patient location): [facility] room 330 Distant site (provider location): [facility], [place] Start time of encounter: 20:58 End time of encounter: 21:06 The minutes spent with this patient are noted, over half of which was spent in counseling and coordination of care (55 min) [facility] Work Phone: [phone]) 517-748201-16-2024 Plan of care note* Care Plan - Carey Drake RN - 03/18/2023 6:17 PM EST Problem: Skin Goal: Decreased wound size/increased tissue granulation at next dressing change Outcome: Progressing Goal: Participates in plan/prevention/treatment measures Outcome: Progressing Goal: Prevent/manage excess moisture Outcome: Progressing Goal: Prevent/minimize sheer/friction injuries Outcome: Progressing Goal: Promote/optimize nutrition Outcome: Progressing Goal: Promote skin healing Outcome: Progressing Problem: Respiratory Goal: Minimize anxiety/maximize coping throughout shift Outcome: Progressing Goal: Minimal/no exertional discomfort or dyspnea this shift Outcome: Progressing Goal: No signs of respiratory distress (eg. Use of accessory muscles. Peds grunting) Outcome: Progressing Goal: Verbalize decreased shortness of breath this shift Outcome: Progressing Goal: Wean oxygen to maintain O2 saturation per order/standard this shift Outcome: Progressing Problem: Fall/Injury Goal: Not fall by end of shift Outcome: Progressing Goal: Be free from injury by end of the shift Outcome: Progressing Goal: Verbalize understanding of personal risk factors for fall in the hospital Outcome: Progressing Goal: Pace activities to prevent fatigue by end of the shift Outcome: Progressing The patient's goals for the shift include maintain an spo2 greater than 92% The clinical goals for the shift include tolerate weaning of levo and oxygen throughout shift Over the shift, the patient did make progress toward the following goals. [facility]01-16-2024 Consult note* Mihai Barreto, - 03/18/2023 1:57 PM ESTAssociated Order(s): IP CONSULT TO PERSONAL PROTECTION SPECIALIST; IP CONSULT TO NEPHROLOGY Reason For Consult Respiratory failure History Of Present Illness Cheryl De La Fuente is a 72 y.o. male presenting with shortness of breath. He presented to the emergency room secondary to shortness of breath that has been going on for 2 weeks. He recently saw urgent care and was diagnosed with pneumonia and was given doxycycline as an outpatient. He does have a cough. He denies fevers chills or sweats. He does have a history of COPD hedoes not use home oxygen. He was admitted to the hospital secondary to COPD with hypoxia This a.m. he states that he is feeling a little bit better currently He states that since admission he has felt fairly decent He denies cough or sputum production States that he has stopped abusing nicotine Past Medical History He has a past medical history of Atrial fibrillation ([facility]), COPD (chronic obstructive pulmonarydisease) ([facility]), Coronary artery disease, Hypertension, Hypothyroidism, and Stroke ([facility]). Surgical History He has a past surgical history that includes Coronary stent placement and Sinus surgery (Bilateral). Social History He reports that he quit smoking about 18 years ago. His smoking use included cigarettes. His smokeless tobacco use includes snuff. He reports that he does not drink alcohol and does not use drugs. Family History No family history on file. Allergies Codeine Review of Systems A full 10 point review of systems was obtained is negative except HPI as above Physical Exam Physical Exam Constitutional: Appearance: Normal appearance. HENT: Head: Normocephalic and atraumatic. Right Ear: External ear normal. Left Ear: External ear normal. Nose: Nose normal. Mouth/Throat: Mouth: Mucous membranes are moist. Pharynx: Oropharynx is clear. Eyes: Extraocular Movements: Extraocular movements intact. Conjunctiva/sclera: Conjunctivae normal. Pupils: Pupils are equal, round, and reactive to light. Cardiovascular: Rate and Rhythm: Normal rate and regular rhythm. Pulmonary: Effort: Pulmonary effort is normal. Breath sounds: Wheezing and rhonchi present. Abdominal: General: Abdomen is flat. Palpations: Abdomen is soft. Skin: General: Skin is warm and dry. Findings: Erythema and lesion present. Comments: Left hand has an ulceration of the skin His right lower extremity also has an ulceration with redness and erythema Neurological: General: No focal deficit present. Mental Status: He is alert and oriented to person, place, and time. Psychiatric: Mood and Affect: Mood normal. Behavior: Behavior normal. I&O 24HR Intake/Output Summary (Last 24 hours) at 03/18/2023 1357 Last data filed at 03/18/2023 1340 Gross per 24 hour Intake 4665.94 ml Output 225 ml Net 4440.94 ml Vitals 24HR Heart Rate: [75-105] Temp: [36.3 C (97.3 F)-37.4 C (99.3 F)] Resp: [16-29] BP: (85-138)/(52-104) Height: [185.4 cm (6' 1)] Weight: [89.8 kg (198 lb)-90.6 kg (199 lb 11.8 oz)] SpO2: [94 %-97 %] Scheduled medications atorvastatin, 80 mg, oral, Nightly bacitracin, , Topical, TID budesonide, 0.5 mg, nebulization, BID clopidogrel, 75 mg, oral, Daily doxycycline, 100 mg, intravenous, q12h formoterol, 20 mcg, nebulization, BID ipratropium-albuteroL, 3 mL, nebulization, q4h levothyroxine, 75 mcg, oral, Daily piperacillin-tazobactam, 4.5 g, intravenous, q6h polyethylene glycol, 17 g, oral, Daily potassium chloride CR, 20 mEq, oral, Daily predniSONE, 40 mg, oral, Daily rivaroxaban, 20 mg, oral, Daily with evening meal sertraline, 100 mg, oral, Daily Continuous medications norepinephrine, 0.01-1 mcg/kg/min, Last Rate: Stopped (03/18/23 1230) sodium chloride 0.9%, 125 mL/hr, Last Rate: 125 mL/hr (03/18/23 1317) PRN medications PRN medications: ipratropium-albuteroL, oxygen Relevant Results Reviewed lab results and imaging studies Assessment/Plan Sepsis with source appearing to be skin especially the lower extremity Leukocytosis Acute renal failure COPD with exacerbation Shortness of breath Lactic acidosis that has now resolved Plan: At this time he has blood cultures and wound cultures pending He is currently on Zosyn and doxycycline I am going to change the doxycycline to vancomycin until we have cultures back He has evidence of sepsis he was already on doxycycline as an outpatient so we will change to vancomycin He is on breathing treatments Continue breathing treatments as he is on for now We will have to watch cultures closely He is on oral prednisone which I will leave He does have evidence of elevated inflammatory markers We will continue to follow wounds and cultures closely Thanks for the consult Principal Problem: COPD (chronic obstructive pulmonary disease) ([facility]) Mihai Barreto DO [facility] Work Phone: [phone] History and physical note* Kelvin Garcias MD - 03/18/2023 7:34 AM EST History Of Present Illness Cheryl De La Fuente is a 72 y.o. male Was called by the EMS to the emergency room for 2 weeks history of progressively worsening shortness of breath. When the squad arrived, it was noted that patient hada saturation oxygen of 83%. On presentation to the ER; blood pressure 135/87, respiratory rate 16, afebrile, and heart rate 85. Pertinent findings on blood workup; WBC count 17,200, creatinine 1.38, BUN 33, albumin 3.3, lactic acid 5.1. BNP 202. Urinalysis did not show any significant findings. COVID-19 and influenza came back negative. 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 While in the emergency room, patient's blood pressure startedto drop requiring IV fluids followed by initiation of Levophed. Patient was also given Solu-Medrol,DuoNebs, ceftriaxone, azithromycin, and then admitted to the medical service for further investigation and management. Upon encounter now, patient reports feeling better. Still having a cough. No fever or chills. Stillhaving shortness of breath but not as severe as before. No nausea or vomiting. On 03/10/2023, patient went to the urgent care and was given a prescription of doxycycline for pneumonia. He did take the medication but without clinical improvement. Still feeling chest congestion. ROS 10 systems were reviewed and were negative except for those noted in the history of present illness. Past Medical History Past Medical History: Diagnosis Date Atrial fibrillation ([facility]) COPD (chronic obstructive pulmonary disease) ([facility]) Coronary artery disease Hypertension Hypothyroidism Stroke ([facility]) Pertinent medical history also documented in my below narrative Surgical History Past Surgical History: Procedure Laterality Date CORONARY STENT PLACEMENT SINUS SURGERY Bilateral Pertinent surgical history also documented in my below narrative Social History He reports that he quit smoking about 18 years ago. His smoking use included cigarettes. His smokeless tobacco use includes snuff. He reports that he does not drink alcohol and does not use drugs. Family History No family history on file. Allergies Codeine Medications Prior to Admission Medication Sig Dispense Refill Last Dose albuterol 2.5 mg /3 mL (0.083 %) nebulizer solution USE 1 VIAL VIA NEBULIZER EVERY 4 HOURS NEEDED for SHORTNESS OF BREATH or FOR WHEEZING Unknown amLODIPine (Norvasc) 5 mg tablet Take 1 tablet (5 mg) by mouth once daily. 03/17/2023 at 1600 atorvastatin (Lipitor) 80 mg tablet 03/17/2023 at 2345 doxycycline (Adoxa) 100 mg tablet Take 1 tablet (100 mg) by mouth 2 times a day for 10 days. Take with a full glass of water and do not lie down for at least 30 minutes after 20 tablet 0 03/17/2023 [id number] fluticasone (Flonase Allergy Relief) 50 mcg/actuation nasal spray Administer into affected nostril(s). Unknown furosemide (Lasix) 20 mg tablet TAKE ONE-HALF TABLET (10mg) BY MOUTH EVERY OTHER DAY 03/17/2023 at 1600 ipratropium (Atrovent) 0.02 % nebulizer solution USe contents OF 1 (ONE) vial via nebulizer EVERY 6HOURS NEEDED for SHORTNESS OF BREATH or FOR WHEEZING Unknown ipratropium-albuteroL (Duo-Neb) 0.5-2.5 mg/3 mL nebulizer solution Take 3 mL by nebulization every 6 hours if needed for wheezing. 180 mL 0 Unknown levothyroxine (Synthroid, Levoxyl) 75 mcg tablet Take 1 tablet (75 mcg) by mouth once daily. 03/17/2023 at 1600 losartan (Cozaar) 100 mg tablet 03/17/2023 at 1600 metoprolol succinate XL (Toprol-XL) 50 mg 24 hr tablet Take 1 tablet (50 mg) by mouth once daily. Unknown montelukast (Singulair) 10 mg tablet Take 1 tablet (10 mg) by mouth once daily at bedtime. 03/17/2023 at 2345 nitroglycerin (Nitrostat) 0.4 mg SL tablet DISSOLVE 1 TABLET UNDER THE TONGUE NEEDED FOR CHEST PAIN- MAY REPEAT EVERY 5 MINUTES IF NEEDED ( MAX 3 DOSES.- IF NO RELIEF CALL 911) Unknown Plavix 75 mg tablet Take 1 tablet (75 mg) by mouth once daily. 03/17/2023 at 1600 potassium chloride CR 20 mEq ER tablet Unknown predniSONE (Deltasone) 10 mg tablet Take 1 tablet (10 mg) by mouth once daily. 03/17/2023 at 1600 [] predniSONE (Deltasone) 10 mg tablet Take 6 tablets (60 mg) by mouth once daily for 1 day,THEN 5 tablets (50 mg) once daily for 1 day, THEN 4 tablets (40 mg) once daily for 1 day, THEN 3 tablets (30 mg) once daily for 1 day, THEN 2 tablets (20 mg) once daily for 1 day, THEN 1 tablet (10 mg) once daily for 1 day. 21 tablet 0 sertraline (Zoloft) 100 mg tablet 03/17/2023 at 1600 spironolactone (Aldactone) 25 mg tablet 03/17/2023 at 1600 Trelegy Ellipta 100-62.5-25 mcg blister with device Unknown Xarelto 20 mg tablet Take by mouth. 03/17/2023 at 2345 Last Recorded Vitals Blood pressure 110/71, pulse 82, temperature 36.3 C (97.3 F), temperature source Temporal, resp. rate 20, height 1.854 m (6' 1), weight 90.6 kg (199 lb 11.8 oz), SpO2 97 %. Physical Exam Constitutional: General: He is not in acute distress. Appearance: He is ill-appearing. Comments: Awake alert and oriented x3 HENT: Mouth/Throat: Pharynx: Oropharynx is clear. Eyes: Pupils: Pupils are equal, round, and reactive to light. Cardiovascular: Rate and Rhythm: Normal rate and regular rhythm. Heart sounds: Normal heart sounds. Pulmonary: Effort: No respiratory distress. Breath sounds: Wheezing and rhonchi present. Abdominal: General: Abdomen is flat. Bowel sounds are normal. There is no distension. Palpations: Abdomen is soft. Tenderness: There is no abdominal tenderness. Musculoskeletal: General: No swelling. Skin: Comments: Left dorsal hand skin ulceration. ight lower extremity erythema with warmth and tenderness and ulceration. Neurological: General: No focal deficit present. Psychiatric: Mood and Affect: Mood normal. Behavior: Behavior normal. Thought Content: Thought content normal. Judgment: Judgment normal. Relevant Results Results for orders placed or performed during the hospital encounter of 03/17/23 (from the past 24 hour(s)) Influenza A, and B PCR Result Value Ref Range Flu A Result Not Detected Not Detected Flu B Result Not Detected Not Detected SARS-CoV-2 RT PCR Result Value Ref Range Coronavirus 2019, PCR Not Detected Not Detected CBC and Auto Differential Result Value Ref Range WBC 17.2 (H) 4.4 - 11.3 x10*3/uL nRBC 0.1 (H) 0.0 - 0.0 /100 WBCs RBC 4.45 (L) 4.50 - 5.90 x10*6/uL Hemoglobin 13.8 13.5 - 17.5 g/dL Hematocrit 43.8 41.0 - 52.0 % MCV 98 80 - 100 fL MCH 31.0 26.0 - 34.0 pg MCHC 31.5 (L) 32.0 - 36.0 g/dL RDW 12.6 11.5 - 14.5 % Platelets 298 150 - 450 x10*3/uL Neutrophils % 86.0 40.0 - 80.0 % Immature Granulocytes %, Automated 2.3 (H) 0.0 - 0.9 % Lymphocytes % 5.3 13.0 - 44.0 % Monocytes % 6.1 2.0 - 10.0 % Eosinophils % 0.1 0.0 - 6.0 % Basophils % 0.2 0.0 - 2.0 % Neutrophils Absolute 14.82 (H) 1.60 - 5.50 x10*3/uL Immature Granulocytes Absolute, Automated 0.40 0.00 - 0.50 x10*3/uL Lymphocytes Absolute 0.92 0.80 - 3.00 x10*3/uL Monocytes Absolute 1.06 (H) 0.05 - 0.80 x10*3/uL Eosinophils Absolute 0.01 0.00 - 0.40 x10*3/uL Basophils Absolute 0.03 0.00 - 0.10 x10*3/uL Comprehensive Metabolic Panel Result Value Ref Range Glucose 111 (H) 74 - 99 mg/dL Sodium 138 136 - 145 mmol/L Potassium 3.9 3.5 - 5.3 mmol/L Chloride 101 98 - 107 mmol/L Bicarbonate 24 21 - 32 mmol/L Anion Gap 17 10 - 20 mmol/L Urea Nitrogen 33 (H) 6 - 23 mg/dL Creatinine 1.38 (H) 0.50 - 1.30 mg/dL eGFR 54 (L) >60 mL/min/1.73m*2 Calcium 9.3 8.6 - 10.3 mg/dL Albumin 3.3 (L) 3.4 - 5.0 g/dL Alkaline Phosphatase 80 33 - 136 U/L Total Protein 6.7 6.4 - 8.2 g/dL AST 25 9 - 39 U/L Bilirubin, Total 0.7 0.0 - 1.2 mg/dL ALT 18 10 - 52 U/L Lactate Result Value Ref Range Lactate 5.1 (HH) 0.4 - 2.0 mmol/L Blood Culture Specimen: Peripheral Venipuncture; Blood culture Result Value Ref Range Blood Culture Loaded on Instrument - Culture in progress Blood Culture Specimen: Peripheral Venipuncture; Blood culture Result Value Ref Range Blood Culture Loaded on Instrument - Culture in progress Troponin I, High Sensitivity Result Value Ref Range Troponin I, High Sensitivity 38 (H) 0 - 20 ng/L B-Type Natriuretic Peptide Result Value Ref Range BNP 202 (H) 0 - 99 pg/mL Light Blue Top Result Value Ref Range Extra Tube Hold for add-ons. SST TOP Result Value Ref Range Extra Tube Hold for add-ons. Troponin I, High Sensitivity Result Value Ref Range Troponin I, High Sensitivity 33 (H) 0 - 20 ng/L Lactate Result Value Ref Range Lactate 3.4 (H) 0.4 - 2.0 mmol/L Urinalysis with Reflex Culture and Microscopic Result Value Ref Range Color, Urine Straw Straw, Yellow Appearance, Urine Clear Clear Specific [place], Urine 1.029 1.005 - 1.035 pH, Urine 6.0 5.0, 5.5, 6.0, 6.5, 7.0, 7.5, 8.0 Protein, Urine NEGATIVE NEGATIVE mg/dL Glucose, Urine NEGATIVE NEGATIVE mg/dL Blood, Urine SMALL (1+) (A) NEGATIVE Ketones, Urine NEGATIVE NEGATIVE mg/dL Bilirubin, Urine NEGATIVE NEGATIVE Urobilinogen, Urine <2.0 <2.0 mg/dL Nitrite, Urine NEGATIVE NEGATIVE Leukocyte Esterase, Urine NEGATIVE NEGATIVE Urinalysis Microscopic Result Value Ref Range WBC, Urine NONE 1-5, NONE /HPF RBC, Urine 1-2 NONE, 1-2, 3-5 /HPF Lactate Result Value Ref Range Lactate 2.1 (H) 0.4 - 2.0 mmol/L ECG 12 lead Result Value Ref Range Ventricular Rate 101 BPM Atrial Rate 101 BPM MN Interval 142 ms QRS Duration 108 ms QT Interval 338 ms QTC Calculation(Bazett) 438 ms P [place] 55 degrees R [place] -4 degrees T [place] 92 degrees QRS Count 17 beats Q Onset 205 ms P Onset 134 ms P Offset 184 ms T Offset 374 ms QTC Fredericia 402 ms ECG 12 lead Result Date: 03/18/2023 Sinus tachycardia Inferior infarct , age undetermined Abnormal ECG When compared with ECG of 06-JUN-2020 10:21, Previous ECG has undetermined rhythm, needs review Inferior infarct is now Present Nonspecific T wave abnormality no longer evident in Inferior leads Nonspecific T wave abnormality has replaced inverted T waves in Lateral leads CT angio chest for pulmonary embolism Result Date: 03/17/2023 Interpreted By: Rubén Waller, STUDY: CT ANGIO CHEST FOR PULMONARY EMBOLISM; 03/17/2023 10:31 pmINDICATION: Signs/Symptoms:dyspnea. COMPARISON: Chest radiograph 03/17/2023 ACCESSION NUMBER(S): [id number] ORDERING CLINICIAN: QUINN CAMARILLO TECHNIQUE: Axial CTA images of the chest after intravenous administration of 74 mL Omnipaque [address] angiographic technique. Coronal and sagittal images are reconstructed. MIP images were created and reviewed. FINDINGS: CHEST WALL AND LOWER NECK:Within normal limits. ABDOMEN: Calcifications scattered throughout the spleen. VASCULAR: AORTA: No aortic aneurysm or dissection. Mild atherosclerotic disease. 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 PULMONARY ARTERY: Normal caliber. No pulmonary embolus to the segmental level. CHEST: HEART: Normal size. No pericardial effusion. There are coronary artery calcifications. MEDIASTINUM AND BENNY: No pathologically enlarged thoracic lymph nodes. LUNG, PLEURA, LARGE AIRWAYS: Moderate centrilobular emphysematous changes diffusely throughout the lungs. Dependent atelectasis. BONES: Age-indeterminate height loss of the T11 and T12 vertebral bodies. No acute pulmonary embolus to the segmental level. Moderate centrilobular emphysematous changes diffusely throughout the lungs Age-indeterminate height loss of the T11 and T12 vertebral bodies. Correlate with point tenderness. Calcifications scattered throughout the spleen which may be seen with sequela of granulomatous disease. 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 MACRO: None. Signed by: Rubén Waller 03/17/2023 11:02 PM Dictation workstation: [id number] XR chest 1 view Result Date: 03/17/2023 Interpreted By: Thanh Paulino, STUDY: XR CHEST 1 VIEW; 03/17/2023 8:15 pm INDICATION: Signs/Symptoms:cough. COMPARISON: 06/06/2020 ACCESSION NUMBER(S): [id number] ORDERING CLINICIAN: QUINN LING: The cardiac silhouette is normal in size. No focal airspace consolidation or pleural effus ion. No pneumothorax. No airspace consolidation or pleural effusion. MACRO: None Signed by: Thanh Paulino 03/17/2023 8:39 PM Dictation workstation: [id number] Assessment/Plan 72-year-old male, smoker, with a past medical history of coronary artery disease s/p cardiac stentsplacement, right lower extremity cellulitis, nicotine dependence, diastolic CHF, paroxysmal atrial fibrillation, hypertension, hyperlipidemia, CVA, TIA, and COPD and who was diagnosed with pneumonia around a week ago and given a prescription of doxycycline, now presenting to the emergency room for progressively worsening shortness of breath despite taking the antibiotics. Patient was found to have an acute hypoxemic respiratory failure associated with leukocytosis, hypotension, lactic acidosis.On physical exam, he was noted to have a left hand skin ulceration. And he has right lower extremity erythema with warmth and tenderness and ulceration. Admit patient to the intensive care unit. Telemetry and vital signs monitoring. Continue treating with the IV Zosyn and IV doxycycline. Consult critical care. Continue with IV fluids. Continue with the Levophed. Nebulizer treatments. Continue with the current dose of oral prednisone. Resume home medications SCDs for DVT prophylaxis Full code I have reviewed and evaluated the most recent data and results, personally examined the patient, and formulated the plan of care as presented above. Patient is at-risk for clinically significant deterioration / failure due to the above mentioned dysfunctional, unstable organ systems and requires continued critical care treatment. I have personally identified and managed all complex critical care issues to prevent aforementioned clinical deterioration. 60 minutes were spent in the critical care management of the patient excluding billable procedures (This note was generated with voice recognition software and may contain errors including spelling,grammar, syntax and misrecognition of what was dictated, that are not fully corrected) Kelvin Garcias MD [facility] Work Phone: [phone] 106-517901-16-2024 Plan of care note* Care Plan - Terese Montez RN - 03/18/2023 6:50 AM EST The clinical goals for the shift include Wean off levophed and oxygen by the end of shift Over the shift, Pt continue to be on oxygen and levophed. Pt not in distress. Vital signs currentlystable. [facility] Work Phone: [phone]) 591-899601-15-2024 Emergency department Note* Quinn Camarillo DO - 03/17/2023 7:52 PM ESTAssociated Order(s): ECG 12 lead; Critical Care HPI Chief Complaint Patient presents with Shortness of Breath Patient to ED via wheelchair with c/o shortness of breath x 2 weeks. Evaluated at Urgent Care on 03/10/23, dx pneumonia and Rx doxycycline. 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 + cough. Denies fever. Hx COPD, does not have home oxygen. Also c/o wounds right index finger, right lower leg and left hand. Limitations to History: None HPI: 72-year-old male presents with concern for cough and shortness of breath. Patient was seen 1 week ago at urgent care and treated with doxycycline secondary to concern for pneumonia. Patient alsohas a cellulitis to his right lower extremity that extends to his knee. Patient also has a wound tohis left hand. Patient does have a history of COPD which is not oxygen dependent. States his cough has been productive of greenish sputum. Denies any chest pain, nausea, vomiting, abdominal pain, urinary symptoms. Additional History Obtained from: Family at the bedside. Physical Exam: VS: As documented in the triage note and EMR flowsheet from this visit were reviewed. Appearance: Alert. cooperative, in no acute distress. Skin: Purulent drainage from ulceration with surrounding cellulitis to the right lower extremity. Ulceration to left dorsal hand. Eyes: PERRLA, EOMs intact, Conjunctiva pink with no redness or exudates. HENT: Normocephalic, atraumatic. Nares patent. No intraoral lesions. Neck: Supple, without meningismus. Trachea at midline. No lymphadenopathy. Pulmonary: Clear bilaterally with good chest wall excursion. No rales, rhonchi or wheezing. No accessory muscle use or stridor. Cardiac: Tachycardic and regular rhythm, no rubs, murmurs, or gallops. Abdomen: Abdomen is soft, nontender, and nondistended. No palpable organomegaly. No rebound or guarding. No CVA tenderness. Nonsurgical abdomen Genitourinary: Exam deferred. Musculoskeletal: Full range of motion. Pulses full and equal. No cyanosis, clubbing, or edema. Neurological: Cranial nerves are grossly intact, grossly normal sensation, no weakness, no focal findings identified. Psychiatric: Appropriate mood and affect. Briscoe Coma Scale Score: 15 Patient History No past medical history on file. No past surgical history on file. No family history on file. Social History Tobacco Use Smoking status: Never Smokeless tobacco: Current Types: Snuff Substance Use Topics Alcohol use: Never Drug use: Never Physical Exam ED Triage Vitals [03/17/232000] Temp Heart Rate Resp BP 36.3 C (97.3 F) 102 26 107/74 SpO2 Temp Source Heart Rate Source Patient Position 95 % Temporal Monitor Lying BP Location FiO2 (%) Left arm -- Physical Exam ED Course & [facility] ED Course as of 03/18/23 08FriMar 18, 2023 0024 Patient accepted to [facility] by Dr. Guevara. Awaiting bed. [CL] 0337 Persistent hypotension following 4 L NS. Peripheral levophed will be started to manage blood pressure. [CL] ED Course User Index [CL] Quinn Camarillo DO Diagnoses as of 03/18/23 0801 COPD (chronic obstructive pulmonary disease) ([facility]) Septic shock ([facility]) Cellulitis of right lower extremity Medical Decision Making Labs Reviewed CBC WITH AUTO DIFFERENTIAL - Abnormal WBC 17.2 (*) nRBC 0.1 (*) RBC 4.45 (*) Hemoglobin 13.8 Hematocrit 43.8 MCV 98 MCH 31.0 MCHC 31.5 (*) RDW 12.6 Platelets 298 Neutrophils % 86.0 Immature Granulocytes %, Automated 2.3 (*) Lymphocytes % 5.3 Monocytes % 6.1 Eosinophils % 0.1 Basophils % 0.2 Neutrophils Absolute 14.82 (*) Immature Granulocytes Absolute, Au* 0.40 Lymphocytes Absolute 0.92 Monocytes Absolute 1.06 (*) Eosinophils Absolute 0.01 Basophils Absolute 0.03 COMPREHENSIVE METABOLIC PANEL - Abnormal Glucose 111 (*) Sodium 138 Potassium 3.9 Chloride 101 Bicarbonate 24 Anion Gap 17 Urea Nitrogen 33 (*) Creatinine 1.38 (*) eGFR 54 (*) Calcium 9.3 Albumin 3.3 (*) Alkaline Phosphatase 80 Total Protein 6.7 AST 25 Bilirubin, Total 0.7 ALT 18 LACTATE - Abnormal Lactate 5.1 (*) Narrative: Venipuncture immediately after or during the administration of Metamizole may lead to falsely low results. Testing should be performed immediately prior to Metamizole dosing. TROPONIN I, HIGH SENSITIVITY - Abnormal Troponin I, High Sensitivity 38 (*) Narrative: Less than 99th percentile of normal range cutoff- Female and children under 18 years old <14 ng/L; Male <21 ng/L: Negative Repeat testing should be performed if clinically indicated. Female and children under 18 years old 14-50 ng/L; Male 21-50 ng/L: Consistent with possible cardiac damage and possible increased clinical risk. Serial measurements may help to assess extent of myocardial damage. >50 ng/L: Consistent with cardiac damage, increased clinical risk and myocardial infarction. Serial measurements may help assess extent of myocardial damage. NOTE: Children less than 1 year old may have higher baseline troponin levels and results should be interpreted in conjunction with the overall clinical context. NOTE: Troponin I testing is performed using a different testing methodology at [facility] than at other [facility]. Direct result comparisons should only be made within the same method. B-TYPE NATRIURETIC PEPTIDE - Abnormal BNP 202 (*) Narrative: <100 pg/mL - Heart failure unlikely 100-299 pg/mL - Intermediate probability of acute heart failure exacerbation. Correlate with clinical context and patient history. >=300 pg/mL - Heart Failure likely. Correlate with clinical context and patient history. BNP testing is performed using different testing methodology at [facility] than at other [facility]. Direct result comparisons should only be made within the same method. LACTATE - Abnormal Lactate 3.4 (*) Narrative: Venipuncture immediately after or during the administration of Metamizole may lead to falsely low results. Testing should be performed immediately prior to Metamizole dosing. TROPONIN I, HIGH SENSITIVITY - Abnormal Troponin I, High Sensitivity 33 (*) Narrative: Less than 99th percentile of normal range cutoff- Female and children under 18 years old <14 ng/L; Male <21 ng/L: Negative Repeat testing should be performed if clinically indicated. Female and children under 18 years old 14-50 ng/L; Male 21-50 ng/L: Consistent with possible cardiac damage and possible increased clinical risk. Serial measurements may help to assess extent of myocardial damage. >50 ng/L: Consistent with cardiac damage, increased clinical risk and myocardial infarction. Serial measurements may help assess extent of myocardial damage. NOTE: Children less than 1 year old may have higher baseline troponin levels and results should be interpreted in conjunction with the overall clinical context. NOTE: Troponin I testing is performed using a different testing methodology at [facility] than at formerly [facility]. Direct result comparisons should only be made within the same method. INFLUENZA A AND B PCR - Normal Flu A Result Flu B Result Narrative: This assay is an in vitro diagnostic multiplex nucleic acid amplification test for the detection and discrimination of Influenza A & B from nasopharyngeal specimens, and has been validated for use at [place]. Negative results do not preclude Influenza A/B infections, and should not be used as the sole basis for diagnosis, treatment, or other management decisions. If Influenza A/B and RSV PCR results are negative, testing for Parainfluenza virus, Adenovirus and Metapneumovirus is routinely performed for [facility] pediatric oncology and intensive care inpatients, and is available on other patients by placing an add-on request. SARS-COV-2 PCR, SYMPTOMATIC - Normal Coronavirus 2019, PCR Narrative: This assay has received FDA Emergency Use Authorization (EUA) and is only authorized forthe duration of time that circumstances exist to justify the authorization of the emergency use of in vitro diagnostic tests for the detection of SARS-CoV-2 virus and/or diagnosis of COVID-19 infection under section 564(b)(1) of the Act, 21 U.S.C. 360bbb-3(b)(1). This assay is an in vitro diagnostic nucleic acid amplification test for the qualitative detection of SARS-CoV-2 from nasopharyngeal specimens and has been validated for use at [place]. Negative results do not preclude COVID-19 infections and should not be used as the sole basis for diagnosis, treatment, or other management decisions. BLOOD CULTURE BLOOD CULTURE URINALYSIS WITH REFLEX CULTURE AND MICROSCOPIC Narrative: The following orders were created for panel order Urinalysis with Reflex Culture and Microscopic. Procedure Abnormality Status --------- ------ Urinalysis with Reflex C...[[id number]] Extra Urine Barragan Tube[[id number]] Please view results for these tests on the individual orders. URINALYSIS WITH REFLEX CULTURE AND MICROSCOPIC EXTRA URINE BARRAGAN TUBE LACTATE CT angio chest for pulmonary embolism Final Result No acute pulmonary embolus to the segmental level. Moderate centrilobular emphysematous changes diffusely throughout the lungs Age-indeterminate height loss of the T11 and T12 vertebral bodies. Correlate with point tenderness. Calcifications scattered throughout the spleen which may be seen with sequela of granulomatous disease. 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 MACRO: None. Signed by: Rubén Waller 03/17/2023 11:02 PM Dictation workstation: [id number] XR chest 1 view Final Result No airspace consolidation or pleural effusion. MACRO: None Signed by: Thanh Paulino 03/17/2023 8:39 PM Dictation workstation: [id number] Medical Decision Making: Patient appears well nontoxic. No respiratory distress. Chest x-ray clear. 17,000 white blood cell count. Lactate elevated at 5.1. CTA performed which shows no evidence of pulmonary embolism or pneumonia. Evidence of acute renal insufficiency with a creatinine of 1.38. Patient treated with broad-spectrum antibiotics as well as 30 mL/kg fluid bolus. A total of 3 L were given to meet the requirement of 2700 mL. Lactate improved to 3.4. Patient will be started on maintenance fluids. Patient also was treated with aerosol breathing treatment as well as intravenous Solu-Medrol. Patient again becamehypotensive and treated with another 1 L of normal saline. Blood pressure improved for short periodand became hypotensive again. Peripheral Levophed started. Blood pressure improved. Patient initially planned for transfer to [facility] given lack of bed capacity at [facility]. However ICU bed is available and given the patient's vasopressor requirement he will be admitted to our intensive care unit. Stable at time of admission. Differential Diagnoses Considered: COPD exacerbation, volume depletion, pneumonia, ACS, electrolyteabnormality Independent Interpretation of Studies: I independently interpreted: Chest x-ray shows no evidence of pneumothorax or pneumonia. CTA without central pulmonary embolism. Escalation of Care: Appropriate for admission to the intensive care unit. Discussion of Management with Other Providers: I discussed the patient/results with: Admitting hospitalist. Procedure ECG 12 lead Performed by: Quinn Camarillo DO Authorized by: Quinn Camarillo DO ECG interpreted by ED Physician in the absence of a blind cleaner: yes Comments: EKG interpreted by Dr. Quinn Camarillo: Sinus tachycardia at a rate of 101 bpm. MN interval 142 ms. QTc of [address] changes. Critical Care Performed by: Quinn Camarillo DO Authorized by: Quinn Camarillo DO Critical care provider statement: Critical care time (minutes): 85 Critical care time was exclusive of: Separately billable procedures and treating other patients Critical care was necessary to treat or prevent imminent or life-threatening deterioration of the following conditions: Sepsis and shock Critical care was time spent personally by me on the following activities: Development of treatmentplan with patient or surrogate, obtaining history from patient or surrogate, ordering and performing treatments and interventions, ordering and review of radiographic studies, ordering and review of laboratory studies and re-evaluation of patient's condition I assumed direction of critical care for this patient from another provider in my specialty: no Care discussed with: admitting provider Quinn Camarillo DO 03/18/23 0801 documented in this [facility] Work Phone: [phone] Physician Emergency department Note* Quinn Camarillo DO - 03/17/2023 7:52 PM ESTAssociated Order(s): ECG 12 lead; Critical Care HPI Chief Complaint Patient presents with Shortness of Breath Patient to ED via wheelchair with c/o shortness of breath x 2 weeks. Evaluated at Urgent Care on 03/10/23, dx pneumonia and Rx doxycycline. 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 + cough. Denies fever. Hx COPD, does not have home oxygen. Also c/o wounds right index finger, right lower leg and left hand. Limitations to History: None HPI: 72-year-old male presents with concern for cough and shortness of breath. Patient was seen 1 week ago at urgent care and treated with doxycycline secondary to concern for pneumonia. Patient alsohas a cellulitis to his right lower extremity that extends to his knee. Patient also has a wound tohis left hand. Patient does have a history of COPD which is not oxygen dependent. States his cough has been productive of greenish sputum. Denies any chest pain, nausea, vomiting, abdominal pain, urinary symptoms. Additional History Obtained from: Family at the bedside. Physical Exam: VS: As documented in the triage note and EMR flowsheet from this visit were reviewed. Appearance: Alert. cooperative, in no acute distress. Skin: Purulent drainage from ulceration with surrounding cellulitis to the right lower extremity. Ulceration to left dorsal hand. Eyes: PERRLA, EOMs intact, Conjunctiva pink with no redness or exudates. HENT: Normocephalic, atraumatic. Nares patent. No intraoral lesions. Neck: Supple, without meningismus. Trachea at midline. No lymphadenopathy. Pulmonary: Clear bilaterally with good chest wall excursion. No rales, rhonchi or wheezing. No accessory muscle use or stridor. Cardiac: Tachycardic and regular rhythm, no rubs, murmurs, or gallops. Abdomen: Abdomen is soft, nontender, and nondistended. No palpable organomegaly. No rebound or guarding. No CVA tenderness. Nonsurgical abdomen Genitourinary: Exam deferred. Musculoskeletal: Full range of motion. Pulses full and equal. No cyanosis, clubbing, or edema. Neurological: Cranial nerves are grossly intact, grossly normal sensation, no weakness, no focal findings identified. Psychiatric: Appropriate mood and affect. Briscoe Coma Scale Score: 15 Patient History No past medical history on file. No past surgical history on file. No family history on file. Social History Tobacco Use Smoking status: Never Smokeless tobacco: Current Types: Snuff Substance Use Topics Alcohol use: Never Drug use: Never Physical Exam ED Triage Vitals [03/17/232000] Temp Heart Rate Resp BP 36.3 C (97.3 F) 102 26 107/74 SpO2 Temp Source Heart Rate Source Patient Position 95 % Temporal Monitor Lying BP Location FiO2 (%) Left arm -- Physical Exam ED Course & [facility] ED Course as of 03/18/23 08FriMar 18, 2023 0024 Patient accepted to [facility] by Dr. Guevara. Awaiting bed. [CL] 0337 Persistent hypotension following 4 L NS. Peripheral levophed will be started to manage blood pressure. [CL] ED Course User Index [CL] Quinn D Lemnay, Diagnoses as of 03/18/23 0801 COPD (chronic obstructive pulmonary disease) (CMS/HCC) Septic shock (CMS/[facility]) Cellulitis of right lower extremity Medical Decision Making Labs Reviewed CBC WITH AUTO DIFFERENTIAL - Abnormal WBC 17.2 (*) nRBC 0.1 (*) RBC 4.45 (*) Hemoglobin 13.8 Hematocrit 43.8 MCV 98 MCH 31.0 MCHC 31.5 (*) RDW 12.6 Platelets 298 Neutrophils % 86.0 Immature Granulocytes %, Automated 2.3 (*) Lymphocytes % 5.3 Monocytes % 6.1 Eosinophils % 0.1 Basophils % 0.2 Neutrophils Absolute 14.82 (*) Immature Granulocytes Absolute, Au* 0.40 Lymphocytes Absolute 0.92 Monocytes Absolute 1.06 (*) Eosinophils Absolute 0.01 Basophils Absolute 0.03 COMPREHENSIVE METABOLIC PANEL - Abnormal Glucose 111 (*) Sodium 138 Potassium 3.9 Chloride 101 Bicarbonate 24 Anion Gap 17 Urea Nitrogen 33 (*) Creatinine 1.38 (*) eGFR 54 (*) Calcium 9.3 Albumin 3.3 (*) Alkaline Phosphatase 80 Total Protein 6.7 AST 25 Bilirubin, Total 0.7 ALT 18 LACTATE - Abnormal Lactate 5.1 (*) Narrative: Venipuncture immediately after or during the administration of Metamizole may lead to falsely low results. Testing should be performed immediately prior to Metamizole dosing. TROPONIN I, HIGH SENSITIVITY - Abnormal Troponin I, High Sensitivity 38 (*) Narrative: Less than 99th percentile of normal range cutoff- Female and children under 18 years old <14 ng/L; Male <21 ng/L: Negative Repeat testing should be performed if clinically indicated. Female and children under 18 years old 14-50 ng/L; Male 21-50 ng/L: Consistent with possible cardiac damage and possible increased clinical risk. Serial measurements may help to assess extent of myocardial damage. >50 ng/L: Consistent with cardiac damage, increased clinical risk and myocardial infarction. Serial measurements may help assess extent of myocardial damage. NOTE: Children less than 1 year old may have higher baseline troponin levels and results should be interpreted in conjunction with the overall clinical context. NOTE: Troponin I testing is performed using a different testing methodology at [facility] than at [facility]. Direct result comparisons should only be made within the same method. B-TYPE NATRIURETIC PEPTIDE - Abnormal BNP 202 (*) Narrative: <100 pg/mL - Heart failure unlikely 100-299 pg/mL - Intermediate probability of acute heart failure exacerbation. Correlate with clinical context and patient history. >=300 pg/mL - Heart Failure likely. Correlate with clinical context and patient history. BNP testing is performed using different testing methodology at [facility] than at other [facility]. Direct result comparisons should only be made within the same method. LACTATE - Abnormal Lactate 3.4 (*) Narrative: Venipuncture immediately after or during the administration of Metamizole may lead to falsely low results. Testing should be performed immediately prior to Metamizole dosing. TROPONIN I, HIGH SENSITIVITY - Abnormal Troponin I, High Sensitivity 33 (*) Narrative: Less than 99th percentile of normal range cutoff- Female and children under 18 years old <14 ng/L; Male <21 ng/L: Negative Repeat testing should be performed if clinically indicated. Female and children under 18 years old 14-50 ng/L; Male 21-50 ng/L: Consistent with possible cardiac damage and possible increased clinical risk. Serial measurements may help to assess extent of myocardial damage. >50 ng/L: Consistent with cardiac damage, increased clinical risk and myocardial infarction. Serial measurements may help assess extent of myocardial damage. NOTE: Children less than 1 year old may have higher baseline troponin levels and results should be interpreted in conjunction with the overall clinical context. NOTE: Troponin I testing is performed using a different testing methodology at [facility] than at other [facility]. Direct result comparisons should only be made within the same method. INFLUENZA A AND B PCR - Normal Flu A Result Flu B Result Narrative: This assay is an in vitro diagnostic multiplex nucleic acid amplification test for the detection and discrimination of Influenza A & B from nasopharyngeal specimens, and has been validated for use at [place]. Negative results do not preclude Influenza A/B infections, and should not be used as the sole basis for diagnosis, treatment, or other management decisions. If Influenza A/B and RSV PCR results are negative, testing for Parainfluenza virus, Adenovirus and Metapneumovirus is routinely performed for [facility] pediatric oncology and intensive care inpatients, and is available on other patients by placing an add-on request. SARS-COV-2 PCR, SYMPTOMATIC - Normal Coronavirus 2019, PCR Narrative: This assay has received FDA Emergency Use Authorization (EUA) and is only authorized forthe duration of time that circumstances exist to justify the authorization of the emergency use of in vitro diagnostic tests for the detection of SARS-CoV-2 virus and/or diagnosis of COVID-19 infection under section 564(b)(1) of the Act, 21 U.S.C. 360bbb-3(b)(1). This assay is an in vitro diagnostic nucleic acid amplification test for the qualitative detection of SARS-CoV-2 from nasopharyngeal specimens and has been validated for use at [place]. Negative results do not preclude COVID-19 infections and should not be used as the sole basis for diagnosis, treatment, or other management decisions. BLOOD CULTURE BLOOD CULTURE URINALYSIS WITH REFLEX CULTURE AND MICROSCOPIC Narrative: The following orders were created for panel order Urinalysis with Reflex Culture and Microscopic. Procedure Abnormality Status --------- ------ Urinalysis with Reflex C...[[id number]] Extra Urine Barragan Tube[[id number]] Please view results for these tests on the individual orders. URINALYSIS WITH REFLEX CULTURE AND MICROSCOPIC EXTRA URINE BARRAGAN TUBE LACTATE CT angio chest for pulmonary embolism Final Result No acute pulmonary embolus to the segmental level. Moderate centrilobular emphysematous changes diffusely throughout the lungs Age-indeterminate height loss of the T11 and T12 vertebral bodies. Correlate with point tenderness. Calcifications scattered throughout the spleen which may be seen with sequela of granulomatous disease. 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 MACRO: None. Signed by: Rubén Waller 03/17/2023 11:02 PM Dictation workstation: [id number] XR chest 1 view Final Result No airspace consolidation or pleural effusion. MACRO: None Signed by: Thanh Paulino 03/17/2023 8:39 PM Dictation workstation: [id number] Medical Decision Making: Patient appears well nontoxic. No respiratory distress. Chest x-ray clear. 17,000 white blood cell count. Lactate elevated at 5.1. CTA performed which shows no evidence of pulmonary embolism or pneumonia. Evidence of acute renal insufficiency with a creatinine of 1.38. Patient treated with broad-spectrum antibiotics as well as 30 mL/kg fluid bolus. A total of 3 L were given to meet the requirement of 2700 mL. Lactate improved to 3.4. Patient will be started on maintenance fluids. Patient also was treated with aerosol breathing treatment as well as intravenous Solu-Medrol. Patient again becamehypotensive and treated with another 1 L of normal saline. Blood pressure improved for short periodand became hypotensive again. Peripheral Levophed started. Blood pressure improved. Patient initially planned for transfer to [facility] given lack of bed capacity at [facility]. However ICU bed is available and given the patient's vasopressor requirement he will be admitted to our intensive care unit. Stable at time of admission. Differential Diagnoses Considered: COPD exacerbation, volume depletion, pneumonia, ACS, electrolyteabnormality Independent Interpretation of Studies: I independently interpreted: Chest x-ray shows no evidence of pneumothorax or pneumonia. CTA without central pulmonary embolism. Escalation of Care: Appropriate for admission to the intensive care unit. Discussion of Management with Other Providers: I discussed the patient/results with: Admitting hospitalist. Procedure ECG 12 lead Performed by: Quinn Camarillo DO Authorized by: Quinn Camarillo DO ECG interpreted by ED Physician in the absence of a blind cleaner: yes Comments: EKG interpreted by Dr. Quinn Camarillo: Sinus tachycardia at a rate of 101 bpm. MN interval 142 ms. QTc of [address] changes. Critical Care Performed by: Quinn Camarillo DO Authorized by: Quinn Camarillo DO Critical care provider statement: Critical care time (minutes): 85 Critical care time was exclusive of: Separately billable procedures and treating other patients Critical care was necessary to treat or prevent imminent or life-threatening deterioration of the following conditions: Sepsis and shock Critical care was time spent personally by me on the following activities: Development of treatmentplan with patient or surrogate, obtaining history from patient or surrogate, ordering and performing treatments and interventions, ordering and review of radiographic studies, ordering and review of laboratory studies and re-evaluation of patient's condition I assumed direction of critical care for this patient from another provider in my specialty: no Care discussed with: admitting provider Quinn Camarillo DO 03/18/23 08 [facility] Work Phone: 1(336) 655-137401-08-2024 History of Present illness Narrative* Quincy Abebe, WOOD CUTTER-PIPE BENDER - 03/10/2023 5:20 PM EST 72 y.o. male presents with daughter for evaluation of cough, chest congestion, wheezing for the past month. Also bumped left hand and right ankle while walking and has noticed progressing wound that is not healing. Has a history of COPD. Takes prednisone and Trelegy inhaler daily. Has been using albuterol nebulizer without much improvement. Denies fever, chest pains, n/v/d. Has been cleansing wound with betadine solution. Vitals: 03/10/23 1733 BP: 103/74 Pulse: 95 Resp: 14 Temp: 36.3 C (97.4 F) SpO2: 96% Allergies Allergen Reactions Codeine Other and Unknown Irritability Medication Documentation Review Audit Reviewed by Kailey Ballard MA ([place]) on 03/10/23 at 1730 Medication Order Taking? Sig Documenting Provider Last Dose Status albuterol 2.5 mg /3 mL (0.083 %) nebulizer solution [id number] Yes USE 1 VIAL VIA NEBULIZER EVERY 4 HOURS NEEDED for SHORTNESS OF BREATH or FOR WHEEZING Historical Provider, Taking Active amLODIPine (Norvasc) 5 mg tablet [id number] Yes Take 1 tablet (5 mg) by mouth once daily. Historical Provider, Taking Active atorvastatin (Lipitor) 80 mg tablet [id number] Yes Historical Provider, Taking Active fluticasone (Flonase Allergy Relief) 50 mcg/actuation nasal spray [id number] Yes Administer into affected nostril(s). Historical Provider, Taking Active furosemide (Lasix) 20 mg tablet [id number] Yes TAKE ONE-HALF TABLET (10mg) BY MOUTH EVERY OTHER DAY Historical Provider, Taking Active ipratropium (Atrovent) 0.02 % nebulizer solution [id number] Yes USe contents OF 1 (ONE) vial via nebulizer EVERY 6 HOURS NEEDED for SHORTNESS OF BREATH or FOR WHEEZING Historical Provider, TakingActive levothyroxine (Synthroid, Levoxyl) 75 mcg tablet [id number] Yes Take 1 tablet (75 mcg) by mouth once daily. Historical Provider, Taking Active losartan (Cozaar) 100 mg tablet [id number] Yes Historical Provider, Taking Active metoprolol succinate XL (Toprol-XL) 50 mg 24 hr tablet [id number] Yes Take 1 tablet (50 mg) by mouth once daily. Historical Provider, Taking Active nitroglycerin (Nitrostat) 0.4 mg SL tablet [id number] Yes DISSOLVE 1 TABLET UNDER THE TONGUE NEEDED FOR CHEST PAIN- MAY REPEAT EVERY 5 MINUTES IF NEEDED ( MAX 3 DOSES.- IF NO RELIEF CALL 911) Historical Provider, Taking Active Plavix 75 mg tablet [id number] Yes Take 1 tablet (75 mg) by mouth once daily. Historical Provider, Taking Active potassium chloride CR 20 mEq ER tablet [id number] Yes Historical Provider, Taking Active predniSONE (Deltasone) 10 mg tablet [id number] Yes Take 1 tablet (10 mg) by mouth once daily. Historical Provider, Taking Active sertraline (Zoloft) 100 mg tablet [id number] Yes Historical Provider, Taking Active spironolactone (Aldactone) 25 mg tablet [id number] Yes Historical Provider, Taking Active Trelegy Ellipta 100-62.5-25 mcg blister with device [id number] Yes Historical Provider, Taking Active Xarelto 20 mg tablet [id number] Yes Take by mouth. Historical Provider, Taking Active History reviewed. No pertinent past medical history. History reviewed. No pertinent surgical history. ROS See HPI Physical Exam Vitals reviewed. Constitutional: General: He is not in acute distress. Appearance: He is ill-appearing (mildly). He is not toxic-appearing or diaphoretic. HENT: Head: Normocephalic and atraumatic. Right Ear: Tympanic membrane, ear canal and external ear normal. Left Ear: Tympanic membrane, ear canal and external ear normal. Nose: Congestion present. Mouth/Throat: Mouth: Mucous membranes are moist. Pharynx: Oropharynx is clear. Eyes: Conjunctiva/sclera: Conjunctivae normal. Pupils: Pupils are equal, round, and reactive to light. Cardiovascular: Rate and Rhythm: Normal rate. Pulmonary: Breath sounds: Wheezing and rhonchi present. Comments: Decreased air movement bilaterally, moist cough during exam Lymphadenopathy: Cervical: No cervical adenopathy. Skin: General: Skin is warm and dry. Findings: Lesion (paryonchia to right first finger medial aspect of nail bed) and wound (left dorsal aspect of hand abrasion with surrounding erythema and mild serous drainage, right medial lower legwith abrasion with surrounding erythema, mild edema and serous drainage, no streaking.) present. Neurological: General: No focal deficit present. Mental Status: He is alert and oriented to person, place, and time. Psychiatric: Mood and Affect: Mood normal. Behavior: Behavior normal. Assessment/Plan/MDM Cheryl was seen today for uri and wound check. Diagnoses and all orders for this visit: Acute bronchitis, unspecified organism (Primary) - Discontinue: doxycycline (Adoxa) 100 mg tablet; Take 1 tablet (100 mg) by mouth 2 times a day for7 days. Take with a full glass of water and do not lie down for at least 30 minutes after - predniSONE (Deltasone) 10 mg tablet; Take 6 tablets (60 mg) by mouth once daily for 1 day, THEN 5tablets (50 mg) once daily for 1 day, THEN 4 tablets (40 mg) once daily for 1 day, THEN 3 tablets (30 mg) once daily for 1 day, THEN 2 tablets (20 mg) once daily for 1 day, THEN 1 tablet (10 mg) oncedaily for 1 day. - ipratropium-albuteroL (Duo-Neb) 0.5-2.5 mg/3 mL nebulizer solution; Take 3 mL by nebulization every 6 hours if needed for wheezing. - doxycycline (Adoxa) 100 mg tablet; Take 1 tablet (100 mg) by mouth 2 times a day for 10 days. Take with a full glass of water and do not lie down for at least 30 minutes after Cellulitis of left upper extremity - Discontinue: doxycycline (Adoxa) 100 mg tablet; Take 1 tablet (100 mg) by mouth 2 times a day for7 days. Take with a full glass of water and do not lie down for at least 30 minutes after - doxycycline (Adoxa) 100 mg tablet; Take 1 tablet (100 mg) by mouth 2 times a day for 10 days. Take with a full glass of water and do not lie down for at least 30 minutes after Encouraged pt to follow up with PCP to ensure improvement in symptoms and wound check. Encouraged to continue cleansing wounds with betadine solution once daily and apply DSD for protection with activity. Patient's clinical presentation is otherwise unremarkable at this time. Patient is discharged with instructions to follow-up with primary care or seek emergency medical attention for worsening sy mptoms or any new concerns. Quincy Abebe CNP [facility] [phone] documented in this [facility] Work Phone: 1(649) 217-616601-02-2024 NoteHNO ID: [id number] Author: Idania Fraire, DO Service: ? Author Type: Physician Type: Progress Notes Filed: 03/04/2023 2:46 PM Note Text: [facility] CARDIOLOGY [facility] OUTPATIENT VISIT DATE March 04, 2023 HISTORY OF PRESENT ILLNESS: Mr. De La Fuente is a 72 year old male. The patient presents to [facility] care due to history of coronary disease and chronic diastolic heart failure. He has prior history of multi-infarct stroke at which time he was found to have atrial fibrillation for which he is now on long-term oral anticoagulation with Xarelto. He presents with his daughter today. He has a chronic cough and dyspnea since his stroke. He has been followed through the heart failure clinic. He denies chest discomfort orthopnea, paroxysmal nocturnal dyspnea, palpitations, near-syncope, syncope, GI/ bleeding or melena. The patient is and lives at home alone. He has grown children and grandchildren. 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 He is a non-smoker, rare drinker. Cardiac risk factors: Age, gender, hypertension, hyperlipidemia, previous tobacco abuse, known CAD Impression: 1. Chronic diastolic heart failure 2. Dyspnea exertion 3. Coronary disease 4. Paroxysmal atrial fibrillation 5. Hypertension 6. Hyperlipidemia 7. Status post drug-eluting stent to the left circumflex 8. Long-term anticoagulation with Xarelto 9. History of COPD PLAN AND RECOMMENDATIONS: The patient appears overall stable from a cardiovascular standpoint but does have a cough and dyspnea occurring with exertion. Catheterization in the past year demonstrated patency of the stent and no significant progression of his coronary disease in other areas. LV systolic function noninvasively was normal but invasively was mildly reduced. Will therefore perform an echocardiogram to reevaluate heart structure and function. We did state that he may double up on his furosemide for a couple days as he notes his dry weight is closer to 180 and he is way past that. Will check labs today in the form of a BMP and BNP. Recent cholesterol profile was not at goal for which we discussed rechecking which we will leave your discretion. If his cholesterol is not to goal, we would recommend either changing to a higher potency statin such as Crestor versus adding Zetia 10 mg daily to his medical regimen. Dietary and lifestyle modification was otherwise reemphasized to facilitate risk factor reduction and heart failure prevention. Will look forward to reevaluating him in 6 months time. Vitals: BP 112/68 Pulse 73 Wt 88.7 kg (195 lb 8.8 oz) SpO2 96% BMI 26.52 kg/m? Physical Exam Vitals reviewed. Constitutional: General: He is not in acute distress. Appearance: Normal appearance. He is well-developed. He is not diaphoretic. HENT: Head: Normocephalic and atraumatic. Right Ear: External ear normal. Left Ear: External ear normal. Nose: Nose normal. Eyes: General: No scleral icterus. Right eye: No discharge. Left eye: No discharge. Pupils: Pupils are equal, round, and reactive to light. Neck: Thyroid: No thyromegaly. Vascular: No carotid bruit or JVD. Cardiovascular: Rate and Rhythm: Normal rate and regular rhythm. Heart sounds: No murmur heard. No friction rub. No gallop. Pulmonary: Effort: Pulmonary effort is normal. No respiratory distress. Breath sounds: Normal breath sounds. No wheezing or rales. Abdominal: General: Bowel sounds are normal. Palpations: Abdomen is soft. Musculoskeletal: General: Normal range of motion. Cervical back: Neck supple. Skin: General: Skin is warm and dry. Capillary Refill: Capillary refill takes less than 2 seconds. Coloration: Skin is not pale. Neurological: Mental Status: He is alert and oriented to person, place, and time. Cranial Nerves: No cranial nerve deficit. Psychiatric: Mood and Affect: Mood normal. Mood is not anxious or depressed. Behavior: Behavior normal. Thought Content: Thought content normal. Judgment: Judgment normal. Review of Systems Constitutional: Negative for activity change, appetite change, fatigue and unexpected weight change. HENT: Negative for ear pain and trouble swallowing. Eyes: Negative for pain and visual disturbance. Respiratory: Positive for cough and shortness of breath. Negative for chest tightness. Cardiovascular: Negative for chest pain, palpitations and leg swelling. Gastrointestinal: Negative for abdominal pain and blood in stool. Endocrine: Negative for cold intolerance and heat intolerance. Genitourinary: Negative for dysuria, hematuria and scrotal swelling. Musculoskeletal: Negative for arthralgias and myalgias. Skin: Negative for pallor and rash. Allergic/Immunologic: Negative for immunocompromised state. Neurological: Negative for dizziness, syncope and light-heade (more content not included)...[id number] Instructions* Patient Instructions* Viktoria Calix APRN.CNP - 06/06/2022 9:24 AM EDT Continue current medications as prescribed. Please start taking 12.5 mg spironolactone (1/2 tablet)in the morning once a day. Continue taking lasix 10 mg every other day. Repeat BMP 2 weeks. Please record blood pressure and heart rate 2-3 hours after morning medications. Weigh yourself every day in the morning. Will reach out to cardiology to schedule future appt. 2. Weigh yourself daily. Call me if your weight increases by 3-4 pounds in a 1-4 day period of time. 3. Continue low salt (2000 mg per day) diet. 4. Be as active as you are able. If you get tired, just stop and rest for a while. 5. Come back and see me on September 05 at 1000. If you have any question or concern, you can call me at [phone]. My colleague is Janel Aldair and she can be reached at [phone]. I am out of the office from 06/07-06/18. documented in this [facility]Fire[facility] History of Present illness Narrative* Viktoria Calix APRN.CNP - 06/06/2022 9:00 AM EDT Images from the original note were not included. [facility] Failure [facility] OUTPATIENT VISIT DATE June 06, 2022 OUTPATIENT VISIT TYPE NEW PRIMARY CARE PHYSICIAN: Azul Chapman MD REFERRING PHYSICIAN: No referring provider defined for this encounter. CHIEF COMPLAINT: Patient presents with: Breathing Problem Leg Edema HISTORY OF PRESENT ILLNESS: Cheryl De La Fuente is a 71 year old male who presents today for an initial visit to the Heart Failure Clinic. The patient is established with Dr. Philip and was last seen in office 03/11. Past medical history is significant for TIA, thyroid disease, NSTEMI, stroke, hypertension, congestive heart failure, coronary artery disease, asthma, chronic obstructive pulmonary disease. The patient has had 1 hospital admissions in the past 12 months. Admission was on 03/14 for diagnostic heart cath. Was seen by Dr. Philip in office on 03/11 for management of atrial fibrillation. Patient reported feeling short of breath on exertion along with experiencing collin swelling. Furthermore, reported exertional angina suggested to be from progressing coronary artery disease. He was scheduled for diagnostic heart cath to further explore vascular status. He underwent diagnostic cath on 03/14 which showed lownormal LV systolic dysfunction, mild diffuse coronary artery disease and normal pulmonary pressures. Medical management was recommended. Today, the patient reports feeling short of breath mostly on exertion. He presents to appt with family member. He often experiences wheezing. Feels unsteady when walking. This occurs all of the time.Denies falling. Denies dizziness or lightheadedness. Denies chest pain. Reports palpitations that occur a couple of times a day and last a few seconds. States he also feels increased shortness of breath during episodes of palpitations. Daughter states she was told to give her father only 10 mg of lasix as needed. After his heart cathwith Dr. Philip, he was instructed to hold lasix; however, he was restarted on this due to symptoms but at the 10 mg dose. His daughter started giving this to him every other day. This was started endoapril. The patient states he did feel better on the 20 mg lasix however, new medications havebeen added to his regimen. Uses his albuterol inhaler 3-4 times a day that he says does help him feel better. He does take prednisone daily for inflammation in his lungs. Takes 10 mg prednisone daily. Follows with his Telephone Information Supervisor regularly. States he has also worn the same size of pants since he was 14. After his stroke, his pants do not fit the same and has had to increase size. His stroke was 2 years ago. Has trouble looking numbers, expressive aphasia and unsteady gait since stroke. States his blood pressure was high at the time. Of note, has not followed with neurology for some time. IMPRESSION: NYHA Functional Class: I Stage: C heart failure Cheryl De La Fuente is a 71 year-old male who presents to the heart failure clinic to establish care. He appears minimally hypervolemic on examination. Will add 12.5 mg spironolactone once a day to regimen to optimize GDMT. Will also have him take 12.5 mg metoprolol twice a day instead of in the morning together. Instructed patient to monitor BP and HR along with weights daily. Educated on low sodiumdiet and fluid restriction. Advised the patient to call the office with any questions or concerns. Reviewed plan of care with patient and family member. All questions answered at this time. PLAN AND RECOMMENDATIONS: ASSESSMENT/PLAN: 1. Diastolic congestive heart failure, unspecified HF chronicity (HCC) - ICD9: 428.30, 428.0, ICD10: I50.30 (primary diagnosis) - daily weights, call office if weight increases 3-4 lbs in a 1-4 day period -2 gm low sodium diet -activity as tolerated, rest breaks as needed -continue 10 mg lasix every other day -start 12.5 mg spironolactone once a day -repeat BMP in 2 weeks -schedule appt with cardiology -follow up in HF Clinic in August 2. Paroxysmal atrial fibrillation (HCC) - ICD9: 427.31, ICD10: I48.0 -CHADSVASc 6 (age, HTN, HF, CAD, TIA) -continue metoprolol for rate control -HR 65 bpm during office visit -continue xarelto for stroke prophylaxis 3. 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- ICD9: 414.01, ICD10: I25.10 4. Primary hypertension - ICD9: 401.9, ICD10: I10 -BP suboptimal during visit 157/95 mmHg (has not taken morning meds) -encourage DASH/low sodium diet -encourage exercise with rest breaks as needed -goal BP <130/80 mmHg -continue home BP monitoring 5. Pure hypercholesterolemia - ICD9: 272.0, ICD10: E78.00 -continue atorvastatin Follow up appointment with to be scheduled PAST MEDICAL HISTORY Diagnosis Date Asthma CAD (coronary artery disease) Chronic obstructive pulmonary disease (COPD) ([facility]) Diastolic congestive heart failure (HCC) 03/11/2022 Dyslipidemia Flutter-fibrillation Heart attack (HCC) Hypertension NSTEMI (non-ST elevated myocardial infarction) ([facility]) 05/2018 Stroke ([facility]) Thyroid disease TIA (transient ischemic attack) PAST SURGICAL HISTORY Procedure Laterality Date CARDIAC CATHETERIZATION HX 05/2017 1 stent Social History Tobacco Use Smoking status: Former Types: Cigarettes Quit date: 03/03/2005 Years since quittin.2 Smokeless tobacco: Current Types: Snuff Substance Use Topics Alcohol use: Yes Comment: occasional Drug use: No FAMILY HISTORY Problem Relation Age of Onset Ischemic Heart Disease Father other (htn) Maternal Grandmother ALLERGIES Allergen Reactions Codeine Unknown CURRENT MEDICATIONS: Current Outpatient Medications Medication Sig Dispense Refill furosemide (LASIX) 20 mg tablet Take 1 tablet by mouth once daily. 30 tablet 4 TRELEGY ELLIPTA 100-62.5-25 mcg inhalation powder INHALE 1 PUFF DAILY DIRECTED montelukast (SINGULAIR) 10 mg tablet Take 10 mg by mouth daily at bedtime. predniSONE (DELTASONE) 10 mg tablet Take 10 mg by mouth once daily. nitroglycerin sublingual (NITROSTAT) 0.4 mg SL tablet Dissolve 1 tablet under the tongue every 5 minutes as needed. 25 tablet 1 amLODIPine (NORVASC) 5 mg tablet Take by mouth. losartan (COZAAR) 100 mg tablet sertraline (ZOLOFT) 100 mg tablet rivaroxaban (XARELTO) 20 mg tablet Take 1 tablet by mouth daily with dinner. atorvastatin (LIPITOR) 80 mg tablet 1 tablet by ORAL/FEEDING TUBE route daily at bedtime. senna-docusate (SENNA-S) 8.6-50 mg per tablet 1 tablet by ORAL/FEEDING TUBE route twice daily. (Patient not taking: Reported on 11/20/2020 ) metoprolol tartrate, short acting, (LOPRESSOR) 25 mg tablet 0.5 tablets by ORAL/FEEDING TUBE route every 12 hours. ipratropium-albuterol (DUONEB) 0.5 mg-3 mg(2.5 mg base)/3 mL nebu Inhale 3 mL as instructed every 4hours as needed. clopidogrel (PLAVIX) 75 mg tablet Take 1 tablet by mouth once daily. Do NOT stop taking without talking to your blind cleaner. 30 tablet 11 levothyroxine (SYNTHROID) 75 mcg tablet Take 75 mcg by mouth daily before breakfast. MULTIVITAMIN TAB Take one(1) tablet daily. 0 albuterol sulfate(VENTOLIN HFA 90 MCG/ACTUATION AEROSOL INHALER) 2 puffs every 4 hours as needed 0 No current facility-administered medications for this visit. REVIEW OF SYSTEMS: GENERAL: Negative for: Weight loss or gain, Fever or Chills, Weakness and Sleep difficulties. HEENT: Negative for: Headache, Impaired Vision, Glasses, Hearing Impairment, Ringing in Ears, Nosebleeds, Poor Dental Care, Bleeding Gums and Dentures. NECK: Negative for: Swelling, Pain, Stiffness RESPIRATORY: Positive for: Cough and Shortness of breath GASTROINTESTINAL: Negative for: Trouble swallowing, Heartburn, Change in bowel habits, Blood in stool, Dark black stools MUSCULOSKELETAL: Negtive for: Muscle or joint pain, stiffness, Joint swelling NEUROLOGIC/PSYCHIATRIC: Negative for: Weakness, Paralysis, Numbness, Tingling, Tremor, Nervousness or anxiety, Depressed mood, Memory loss SKIN: Negative for: Rash, Itching HEMATOLOGICAL/LYMPHATIC: Positive for: Easy bruising and Easy bleeding ENDOCRINE: Negative for: Heat or Cold Intolerance, Excessive Sweating, Frequent Urination, FrequentThirst PHYSICAL EXAMINATION: BP 157/95 Pulse 65 Wt 91.6 kg (202 lb) SpO2 99% BMI 27.40 kg/m General: Normal exam, no distress, accompanied by family Skin: No clubbing, no cyanosis. Eyes: Extra ocular movements intact Neck: Neck veins are not distended Lungs: Chest clear to auscultation; diminished BL Heart: Rhythm: regular rate and rhythm, Rate: bradycardia, no murmur Abdomen: Normal, Bowel Sounds: Present Extremities: Normal exam of the extremities Peripheral Pulses: Normal CARDIOVASCULAR MEDICINE TESTING: LABS 04/15/2022: Latest Reference Range & Units 04/15/22 16:26 Sodium 136 - 144 mmol/L 136 Potassium 3.7 - 5.1 mmol/L 4.0 Chloride 97 - 105 mmol/L 103 CO2 22 - 30 mmol/L 21 (L) BUN 9 - 24 mg/dL 23 Creatinine 0.73 - 1.22 mg/dL 1.06 Glucose 74 - 99 mg/dL 91 Calcium 8.5 - 10.2 mg/dL 8.4 (L) Anion Gap 9 - 18 mmol/L 12 eGFR >=60 mL/min/1.73m 74 (L): Data is abnormally low ECHO 06/07/2020: CONCLUSIONS: - Technically difficult exam due to suboptimal positioning and body habitus. - Exam indication: Sustained atrial fibrillation - The left ventricle is normal in size. There is mild concentric left ventricular hypertrophy. Definity contrast used for endocardial border detection. Indeterminate left ventricular diastolic dysfunction due to inconsistent or technically suboptimal data. Technically difficult study despite the use of LV contrast. Overall function appears grossly normal. - The right ventricle is normal in size. Right ventricular systolic function is normal. - AV cusp anatomy not well visualized. Limited images. There is mild aortic valve stenosis. - Exam was compared with the prior echocardiographic exam performed on 06/02/17 ([facility]). Stress Test Pharm 01/22/2021: CONCLUSIONS: 1. SPECT Perfusion Study: Abnormal. 2. There is no scintigraphic evidence for inducible ischemia. 3. There is a large (>20%) fixed perfusion defect in the LCX territory. 4. Left ventricle is normal in size. The left ventricle systolic function is normal. 5. Right ventricle is normal in size. The right ventricle systolic function is normal. 6. This is a low risk scan. Gated Stress FBP LVEF % 57 I have personally reviewed the Laboratory Testing and Echocardiogram. COUNSELING: We discussed the following non-pharmacological measures during this visit: Smoking and alcohol abstinence/cessation, if applicable Dietary and medication compliance Monitoring daily weights and blood pressures Exercise regimen When to call our office Heart Failure Education Booklet: HF education reviewed today and materials given to patient. Reviewed HF Zones sheet and patient was given all contact information for HF Clinic. Discussed etiology ofheart failure, importance of daily weights, fluid and fluid management, signs and symptoms of heartfailure exacerbation, and activity guidelines. Reviewed 2g low sodium diet and the role sodium plays in the management of heart failure. Reviewed all current medications and the importance these medications play in management of heart failure. Discussed when to call clinic and when ED visit would be warranted. Patient states understanding of education. All questions were answered. Medications reconciled at end of visit: yes I spent 60 minutes in this visit, with more than 50% of the time devoted to patient counseling. SIGNATURE: Viktoria Calix APRN.CNP PATIENT NAME: Cheryl De La Fuente DATE: June 06, 2022 TIME: 8:18 AM documented in this encounterFirelands Regional [facility]02-27-2023 Miscellaneous Notes* Telephone Encounter - Janel Quinetros APRN.CNP - 04/29/2022 12:41 PM EST Called and spoke with Mr. De La Fuente. He states that he could not make an appointment for HF Clinic atthis time. He wrote down contact information and reports he will call to schedule once he talks with family. Janel Quinteros APRN.CNP documented in this encounterFirelands Regional Medical [facility]02-21-2023 Miscellaneous Notes* Telephone Encounter - Antoinette Diaz RN - 04/23/2022 3:22 PM EST Spoke to daughter and informed of below. Reviewed CHF diet/ restrictions with her. Voiced understanding. States she will call [facility] and set up appt for CHF clinic. Antoinette Diaz RN * Telephone Encounter - Kailey Snow APRN.CNP - 04/23/2022 2:50 PM EST I recommend taking 10 lasix mg once daily as needed for shortness of breath, weight gain, abdominaldistention. I recommend establishing with the heart failure clinic for lifestyle management of volume: salt restriction, fluid restriction, daily weights, instructions on how to take Lasix as needed,so that we can avoid fluid gain without stressing kidneys. Thank you, Kailey E. Hannah, WOOD CUTTER.PIPE BENDER * Telephone Encounter - Destini Sandoval RN - 04/23/2022 11:52 AM EST Daughter Ashtyn calls to report pt is short of breath with and without exertion. She reports increase in abd girth. Pt is unsure of weight gain. Pt's lasix has been on hold since 04/08/22 due to renal insufficiency. BUN and Cr have normalized on 04/15/22 BMP. Destini Sandoval RN * Telephone Encounter - Deidre Russo LPN - 04/17/2022 2:54 PM EST Patient's daughter called [facility] to ask that the basic metabolic panel from 04/15/2022 be reviewed? Any recommendations? Deidre Russo LPN documented in this encounterFirelands [facility]02-06-2023 Miscellaneous Notes* Telephone Encounter - Destini Sandoval RN - 04/08/2022 8:16 AM EST Spoke with pt. Notified of test results and Dr Philip's recommendations. Pt voices understanding. Destini Sandoval RN * Telephone Encounter - Destini Sandoval RN - 04/08/2022 8:15 AM EST ----- Message from Mark Philip MD sent at 04/08/2022 8:07 AM EST ----- Call the patient to stop the lasix and BMP in one week renee documented in this encounterFirelands Regional Medical [facility]01-27-2023 NoteHNO ID: [id number] Author: Mark Philip MD Service: Cardiovascular Surgery Author Type: Physician Type: Procedures Filed: 03/29/2022 12:55 PM Note Text: LEFT HEART CATHETERIZATION PROCEDURE NOTE Surgery/Procedure Date: 03/29/2022 Referring Physician: Clinical History: This is a 71 year old male with history of Circumflex stent for coronary angiography and right heart cath. Consent: Informed consent was obtained after the risks, benefits, and alternatives to and of this procedure were discussed in detail with the patient. Procedure in Detail: The patient was brought to the cardiac catheterization laboratory, prepped and draped in the usual sterile fashion. Anxiolysis was achieved with intravenous and intravenous benadryl. Local anesthesia was achieved over the groin with 1% lidocaine. A pre-flushed 6-Cameroonian sheath was inserted into the femoral artery via the Seldinger technique without complications. Retrograde percutaneous diagnostic coronary angiography and left ventriculography were performed using a Cynthia left 4 catheter, a 3-D RC catheter, and an angled pigtail catheter. There were no complications of the procedure. Findings: Angiography: LEFT MAIN: Normal . LEFT CIRCUMFLEX: Patent Stent with mild disease. Dominant LEFT ANTERIOR DESCENDING: Mild disease. RIGHT CORONARY ARTERY: Small non dominant. LEFT VENTRICULOGRAPHY: Mild to moderate LVD LVEF 40% Inferior wall severe hypokinesis . Right heart cath : RA 13/9 mean 8 RV 39/8 mean 15 PW 21/19 mean 16 PA 35/9 mean 23 Impression: Moderate LV systolic dysfunction Patent Circumflex stent. Diffuse CAD. Mildly elevated LVEDP At this point, the procedure was terminated. All diagnostic wires and catheters were removed. Recommendations: 1. Daily aspirin indefinitely 2. DAPT. 3. Statin use 4. Secondary cardiac prevention measures. 5. Add lasix. SIGNATURE: Mark Philip MD PATIENT NAME: Cheryl De La Fuente DATE: March 29, 2022 TIME: 12:34 [facility]01-27-2023 Procedure note* Mark Philip MD - 03/29/2022 12:34 PM EST LEFT HEART CATHETERIZATION PROCEDURE NOTE Surgery/Procedure Date: 03/29/2022 Referring Physician: Clinical History: This is a 71 year old male with history of Circumflex stent for coronary angiography and right heart cath. Consent: Informed consent was obtained after the risks, benefits, and alternatives to and of this procedure were discussed in detail with the patient. Procedure in Detail: The patient was brought to the cardiac catheterization laboratory, prepped anddraped in the usual sterile fashion. Anxiolysis was achieved with intravenous and intravenous benadryl. Local anesthesia was achieved over the groin with 1% lidocaine. A pre-flushed 6-Cameroonian sheath was inserted into the femoral artery via the Seldinger technique without complications. Retrograde percutaneous diagnostic coronary angiography and left ventriculography were performed using a Cynthia left 4 catheter, a 3-D RC catheter, and an angled pigtail catheter. There were no complications of the procedure. Findings: Angiography: LEFT MAIN: Normal . LEFT CIRCUMFLEX: Patent Stent with mild disease. Dominant LEFT ANTERIOR DESCENDING: Mild disease. RIGHT CORONARY ARTERY: Small non dominant. LEFT VENTRICULOGRAPHY: Mild to moderate LVD LVEF 40% Inferior wall severe hypokinesis . Right heart cath : RA 13/9 mean 8 RV 39/8 mean 15 PW 21/19 mean 16 PA 35/9 mean 23 Impression: Moderate LV systolic dysfunction Patent Circumflex stent. Diffuse CAD. Mildly elevated LVEDP At this point, the procedure was terminated. All diagnostic wires and catheters were removed. Recommendations: 1. Daily aspirin indefinitely 2. DAPT. 3. Statin use 4. Secondary cardiac prevention measures. 5. Add lasix. SIGNATURE: Mark Philip MD PATIENT NAME: Cheryl De La Fuente DATE: March 29, 2022 TIME: 12:34 PM documented in this encounterFirelands Regional Medical [facility]01-27-2023 History and physical note * Mark Philip MD - 03/29/2022 10:37 AM EST UPDATED H&P PRE-CARDIAC CATHETERIZATION SERVICE DATE: 03/29/2022 SERVICE TIME: 10:38 PHYSICAL EXAM MUST BE COMPLETED ON ADMISSION The History and Physical (completed in the past 30 days) has been reviewed and the patient has beenexamined. The contents accurately reflect the patient's condition with the following additions or revisions since the H&P was completed. Examination indicates no changes. Planned Procedure: Right and Left Heart Cath + Possible PCI Primary Indication for Procedure: Congestive Heart Failure High Risk Features: History of Prior CABG: No History of Prior PCI: Yes: > 12 months Cardiomyopathy: No Anti-ischemic Meds in Past 2 Weeks: Beta blockers Ejection Fraction: 60% from Previous Echo Risk Appropriateness: Angina Class in Past 2 Weeks: Class III - Marked limitation of ordinary physical activity Cardiogenic Shock: NoHeart Failure: None Stress Test Performed: None EKG Assessment: Normal Family History of Premature CAD: Father, age 60 Evaluation for Preop Clearance: Non-Cardiac Surgery, Functional Capacity; >= 4 METS with symptoms, Surgical Risk; Low HISTORY OF BLEEDING: No This H&P can be found in the attached. SIGNATURE: Mark Philip MD PATIENT NAME: Cheryl De La Fuente DATE: March 29, 2022 TIME: 10:37 AM documented in this encounterFirelands Regional Medical [facility]01-10-2023 Miscellaneous Notes* Telephone Encounter - Destini Sandoval RN - 03/12/2022 8:27 AM EST Spoke with pt. He is agreeable to cath 03/29/22. He reports his daughter will call back to go over instructions. Destini Sandoval RN * Telephone Encounter - Destini Sandoval RN - 03/11/2022 11:59 AM EST Called pt. No answer; per recording voicemail full. Destini Sandoval RN * Telephone Encounter - Destini Sandoval RN - 03/11/2022 11:[address] Philip's office visit note: Patient recommended to hold the Xarelto 2 days prior to his procedure Destini Sandoval RN * Telephone Encounter - Cira Helms [facility] - 03/11/2022 11:31 AM EST Schedule R&LHC on 03/29/[address] Philip documented in this encounterFirelands Regional Medical [facility]01-09-2023 History of Present illness Narrative* Mark Philip MD - 03/11/2022 10:01 AM EST Images from the original note were not included. Mark Philip MD Interventional Cardiology [facility] [address] [place], [place] [address] [phone] Chief Complaint Patient presents with: Follow Up HISTORY OF PRESENT ILLNESS: Mr. De La uFente is a 71 year old male seen in my office today for assessment management of coronary artery disease patient had longstanding history of chronic obstructive airway disease with prior history of non-ST segment elevation myocardial infarction's with angioplasty of the circumflex with drug-eluting stent in 2012 He comes in today he is not feeling very well worsening shortness of breath with exertion with swelling in both legs with weight gain Symptoms suggestive congestive heart failure possible exertional angina due to progression of his coronary artery disease and his COPD Last stress test was done January 2021 shows large circumflex defect scar with preserved LV function Cardiac Risk Factors age (male over 45, female over 55), hyperlipidemia, history of smoking, hypertension, family history of CAD PAST MEDICAL HISTORY Diagnosis Date Asthma CAD (coronary artery disease) Chronic obstructive pulmonary disease (COPD) ([facility]) Diastolic congestive heart failure (HCC) 03/11/2022 Dyslipidemia Flutter-fibrillation Heart attack ([facility]) Hypertension NSTEMI (non-ST elevated myocardial infarction) ([facility]) 05/2018 Stroke ([facility]) Thyroid disease TIA (transient ischemic attack) PAST SURGICAL HISTORY Procedure Laterality Date CARDIAC CATHETERIZATION HX 05/2017 1 stent FAMILY HISTORY Problem Relation Age of Onset Ischemic Heart Disease Father other (htn) Maternal Grandmother Social History Tobacco Use Smoking status: Former Types: Cigarettes Quit date: 03/03/2005 Years since quittin.0 Smokeless tobacco: Current Types: Snuff Substance Use Topics Alcohol use: Yes Comment: occasional Drug use: No ALLERGIES Allergen Reactions Codeine Unknown Medications: Current Outpatient Medications Medication Sig Dispense Refill TRELEGY ELLIPTA 100-62.5-25 mcg inhalation powder INHALE 1 PUFF DAILY DIRECTED montelukast (SINGULAIR) 10 mg tablet Take 10 mg by mouth daily at bedtime. predniSONE (DELTASONE) 10 mg tablet Take 10 mg by mouth once daily. amLODIPine (NORVASC) 5 mg tablet Take by mouth. losartan (COZAAR) 100 mg tablet sertraline (ZOLOFT) 100 mg tablet rivaroxaban (XARELTO) 20 mg tablet Take 1 tablet by mouth daily with dinner. atorvastatin (LIPITOR) 80 mg tablet 1 tablet by ORAL/FEEDING TUBE route daily at bedtime. metoprolol tartrate, short acting, (LOPRESSOR) 25 mg tablet 0.5 tablets by ORAL/FEEDING TUBE route every 12 hours. ipratropium-albuterol (DUONEB) 0.5 mg-3 mg(2.5 mg base)/3 mL nebu Inhale 3 mL as instructed every 4hours as needed. clopidogrel (PLAVIX) 75 mg tablet Take 1 tablet by mouth once daily. Do NOT stop taking without talking to your blind cleaner. 30 tablet 11 levothyroxine (SYNTHROID) 75 mcg tablet Take 75 mcg by mouth daily before breakfast. MULTIVITAMIN TAB Take one(1) tablet daily. 0 albuterol sulfate(VENTOLIN HFA 90 MCG/ACTUATION AEROSOL INHALER) 2 puffs every 4 hours as needed 0 nitroglycerin sublingual (NITROSTAT) 0.4 mg SL tablet Dissolve 1 tablet under the tongue every 5 minutes as needed. 25 tablet 1 senna-docusate (SENNA-S) 8.6-50 mg per tablet 1 tablet by ORAL/FEEDING TUBE route twice daily. (Patient not taking: Reported on 11/20/2020 ) No current facility-administered medications for this visit. Review of Systems Constitutional: Negative for chills, diaphoresis, fever, malaise/fatigue and weight loss. HENT: Negative for congestion, ear discharge, ear pain, hearing loss, nosebleeds, sinus pain, sore throat and tinnitus. Eyes: Negative for blurred vision, double vision, photophobia, pain, discharge and redness. Respiratory: Positive for shortness of breath. Negative for cough, hemoptysis, sputum production, wheezing and stridor. Cardiovascular: Positive for chest pain and leg swelling. Negative for palpitations, orthopnea, claudication and PND. Gastrointestinal: Negative for abdominal pain, blood in stool, constipation, diarrhea, heartburn, melena, nausea and vomiting. Genitourinary: Negative for dysuria, flank pain, frequency, hematuria and urgency. Musculoskeletal: Negative for back pain, falls, joint pain, myalgias and neck pain. Skin: Negative for itching and rash. Neurological: Negative for dizziness, tingling, tremors, sensory change, speech change, focal weakness, seizures, loss of consciousness, weakness and headaches. Endo/Heme/Allergies: Negative for environmental allergies and polydipsia. Does not bruise/bleed easily. Psychiatric/Behavioral: Negative for depression, hallucinations, memory loss, substance abuse and suicidal ideas. The patient is not nervous/anxious and does not have insomnia. Physical Examination: Vitals:There were no vitals taken for this visit. Last 2 Encounter Wt Readings: Date: Wt: 11/20/2020 82.6 kg (182 lb) 06/06/2020 82 kg (180 lb 12.4 oz) Physical Exam Constitutional: General: He is not in acute distress. Appearance: He is not diaphoretic. HENT: Head: Normocephalic and atraumatic. Right Ear: External ear normal. Left Ear: External ear normal. Nose: Nose normal. Mouth/Throat: Pharynx: Oropharynx is clear. Eyes: General: Right eye: No discharge. Left eye: No discharge. Conjunctiva/sclera: Conjunctivae normal. Pupils: Pupils are equal, round, and reactive to light. Cardiovascular: Rate and Rhythm: Normal rate and regular rhythm. Heart sounds: Normal heart sounds, S1 normal and S2 normal. No murmur heard. No friction rub. No gallop. No S3 or S4 sounds. Pulmonary: Effort: Pulmonary effort is normal. No respiratory distress. Breath sounds: Normal breath sounds. No wheezing or rales. Chest: Chest wall: No tenderness. Musculoskeletal: General: Normal range of motion. Cervical back: Normal range of motion and neck supple. Skin: General: Skin is warm and dry. Neurological: Mental Status: He is alert and oriented to person, place, and time. Psychiatric: Mood and Affect: Mood normal. Behavior: Behavior normal. Thought Content: Thought content normal. Judgment: Judgment normal. Pertinent Labs: CBC: Hemoglobin (g/dL) Date Value 06/11/2020 13.0 02/24/2013 15.1 HGB (g/dL) Date Value 12/09/2018 16.2 Hematocrit (%) Date Value 06/11/2020 40.0 12/09/2018 48.7 WBC Date Value 06/11/2020 5.02 k/uL 12/09/2018 7.5 thou/cmm Platelet Count Date Value 06/11/2020 220 k/uL 12/09/2018 251 thou/cmm BMP: Glucose (mg/dL) Date Value 06/11/2020 92 12/09/2018 89 Potassium Date Value 06/11/2020 3.5 mmol/L 12/09/2018 3.3 mEq/L Sodium Date Value 06/11/2020 140 mmol/L 12/09/2018 138 mEq/L Chloride Date Value 06/11/2020 109 mmol/L 12/09/2018 101 mEq/L CO2 Date Value 06/11/2020 22 mmol/L 12/09/2018 26 mEq/L Creatinine (mg/dL) Date Value 06/11/2020 0.96 12/09/2018 1.04 BUN (mg/dL) Date Value 06/11/2020 11 12/09/2018 18 Anion Gap Date Value 06/11/2020 9 mmol/L 06/01/2017 9 Calcium (mg/dL) Date Value 12/09/2018 8.7 Calcium, Total (mg/dL) Date Value 06/11/2020 7.8 INR: Lipid Profile: Cholesterol, Total Date Value Ref Range Status 06/07/2020 204 (H) <200 mg/dL Final Comment: <200 mg/dL, Desirable 200-239 mg/dL, Borderline high >239 mg/dL, High HDL Cholesterol Date Value Ref Range Status 06/07/2020 39 (L) >39 mg/dL Final Comment: 40-59 mg/dL, Acceptable >59 mg/dL, High: Negative risk factor for coronary heart disease <40 mg/dL, Low: Positive risk factor for coronary heart disease LDL Cholesterol Date Value Ref Range Status 06/07/2020 143 (H) <100 mg/dL Final Comment: <100 mg/dL, Optimal 100-129 mg/dL, Near optimal/above optimal 130-159 mg/dL, Borderline high 160-189 mg/dL, High >189 mg/dL, Very high Secondary prevention optimal LDL Cholesterol levels are recommended to be < 70 mg/dL Triglyceride Date Value Ref Range Status 06/07/2020 109 <150 mg/dL Final Comment: <150 mg/dL, Normal 150-199 mg/dL, Borderline high 200-499 mg/dL, High >499 mg/dL, Very high Hemoglobin A1C: No results found for: HGBA1C TSH: No results found for: TSHREFL Prior Cardiac Testing EKG Assessment and Plan: 71 years old gentleman with worsening exertional dyspnea with prior history of COPD and coronary artery disease with angioplasty Coronary artery disease Status post angioplasty of the circumflex in 2012 his exertional shortness of breath potentially could be due to angina equivalent progression of his coronary artery disease and recommending proceeding with left and right heart cath for assessment of his pulmonary pressures and the coronary anatomyand patency of the stent 2. Congestive heart failure Symptoms developed over the last couple of few months including swelling of the legs shortness of breath exertional dyspnea and weight gain suggest of diastolic congestive heart failure Proceed with right heart cath Patient recommended to hold the Xarelto 2 days prior to his procedure We will proceed with a left and right heart cath risk-benefit alternative this procedure was explained to the patient agreeable to proceed right radial access for left heart cath right antecubital for his right heart cath Follow up plannin months Electronically signed by Mark Philip MD on March 11, 2022, 10:01 AM The above note was partially created using a dictation recognition software. A reasonable attempt has been made to correct any errors. documented in this encounterFirelands Regional Medical [facility]03-27-2018 History of Past illness Narrative* Problem Noted Date Resolved Date Chest pain 05/27/2017 05/28/2017 COPD (chronic obstructive pulmonary disease) 05/28/2017 Heart attack 05/28/2017 Chronic obstructive pulmonary disease (COPD) 05/28/2017 documented as of this encounter (statuses as of 03/11/2022) [facility] History of Past illness Narrative* Problem Noted Date Resolved Date Chest pain 05/27/2017 05/28/2017 COPD (chronic obstructive pulmonary disease) 05/28/2017 Heart attack 05/28/2017 Chronic obstructive pulmonary disease (COPD) 05/28/2017 documented as of this encounter (statuses as of 03/12/2022) [place] [id number] History of Past illness Narrative* Problem Noted Date Resolved Date Chest pain 05/27/2017 05/28/2017 COPD (chronic obstructive pulmonary disease) 05/28/2017 Heart attack 05/28/2017 Chronic obstructive pulmonary disease (COPD) 05/28/2017 documented as of this encounter (statuses as of 03/29/2022) [address] History of Past illness Narrative* Problem Noted Date Resolved Date Chest pain 05/27/2017 05/28/2017 COPD (chronic obstructive pulmonary disease) 05/28/2017 Heart attack 05/28/2017 Chronic obstructive pulmonary disease (COPD) 05/28/2017 documented as of this encounter (statuses as of 03/30/2022) [address]27[address]2018 History of Past illness Narrative* Problem Noted Date Resolved Date Chest pain 05/27/2017 05/28/2017 COPD (chronic obstructive pulmonary disease) 05/28/2017 Heart attack 05/28/2017 Chronic obstructive pulmonary disease (COPD) 05/28/2017 documented as of this encounter (statuses as of 04/08/2022) [address]2018 History of Past illness Narrative* Problem Noted Date Resolved Date Chest pain 05/27/2017 05/28/2017 COPD (chronic obstructive pulmonary disease) 05/28/2017 Heart attack 05/28/2017 Chronic obstructive pulmonary disease (COPD) 05/28/2017 documented as of this encounter (statuses as of 04/23/2022) [address] History of Past illness Narrative* Problem Noted Date Resolved Date Chest pain 05/27/2017 05/28/2017 COPD (chronic obstructive pulmonary disease) 05/28/2017 Heart attack 05/28/2017 Chronic obstructive pulmonary disease (COPD) 05/28/2017 documented as of this encounter (statuses as of 04/29/2022) [address] History of Past illness Narrative* Problem Noted Date Resolved Date Chest pain 05/27/2017 05/28/2017 COPD (chronic obstructive pulmonary disease) 05/28/2017 Heart attack 05/28/2017 Chronic obstructive pulmonary disease (COPD) 05/28/2017 documented as of this encounter (statuses as of 06/06/2022) [facility] History of Past illness Narrative* Problem Noted Date Diagnosed Date Resolved Date Chest pain 05/27/2017 05/28/2017 COPD (chronic obstructive pulmonary disease) 0 05/28/2017 Heart attack 05/28/2017 Chronic obstructive pulmonary disease (COPD) 05/28/2017 documented as of this encounter (statuses as of 01/17/2023) [facility] CampusEvalunemours foundation [facility]* Diagnosis Onset Date Resolution Status Bronchiectasis acute MARK (obstructive sleep apnea) acute Asthma-COPD overlap syndrome chronic Asthma-COPD overlap syndrome [facility] Work Phone: evaluation note* Diagnosis Onset Date Resolution Status Bronchiectasis acute Asthma-COPD overlap syndrome [facility] Work Phone: evaluation note* Diagnosis Paroxysmal atrial fibrillation (HCC)- Primary Atrial fibrillation Primary hypertension Unspecified essential hypertension SOB (shortness of breath) Shortness of breath Diastolic congestive heart failure, unspecified HF chronicity ([facility]) NSTEMI (non-ST elevated myocardial infarction) ([facility]) Acute myocardial infarction, subendocardial infarction, episode of care unspecified Pure hypercholesterolemia 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 Dyspnea on exertion Other dyspnea and respiratory abnormality [facility] Diagnosis Systolic congestive heart failure, unspecified HF chronicity (HCC)- Primary [facility] in this encounter [facility]* Diagnosis Short of breath on exertion [R06.02 (ICD-10-CM)]- Primary Shortness of breath [facility]* Diagnosis NICM (nonischemic cardiomyopathy) ([facility])- Primary Other primary cardiomyopathies documented in this encounter [facility]* Diagnosis Diastolic congestive heart failure, unspecified HF chronicity (HCC)- Primary Paroxysmal atrial fibrillation (HCC) Atrial fibrillation 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 Primary hypertension Unspecified essential hypertension Pure hypercholesterolemia documented in this [facility]* Diagnosis Acute bronchitis, unspecified organism- Primary Cellulitis of left upper extremity documented in this encounter [facility] Work Phone: Evaluation note* Diagnosis COPD (chronic obstructive pulmonary disease) ([facility]/HCC)- Primary Chronic airway obstruction, not elsewhere classified COPD (chronic obstructive pulmonary disease) ([facility]/HCC) Chronic airway obstruction, not elsewhere classified Shock circulatory ([facility]) Unspecified shock Septic shock (CMS/HCC) Cellulitis of right lower extremity Other specified peripheral vascular diseases ([facility]) Peripheral vascular disease, unspecified ([facility]) Peripheral vascular disease, unspecified Difficulty walking Difficulty in walking documented in this encounter [facility] Work Phone: Evaluation note* Diagnosis Onset Date Resolution Status Cellulitis of right lower extremity acute Hypothyroidism acute MARK (obstructive sleep apnea) acute Asthma-COPD overlap syndrome chronic BPH (benign prostatic hyperplasia) chronic Bronchiectasis chronic 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 COPD (chronic obstructive pulmonary disease) chronic Coronary artery disease 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 Former smoker chronic Hyperlipidemia chronic Hypertension chronic Asthma-COPD overlap syndrome chronic Bronchiectasis [facility] Work Phone: Evaluation note* Diagnosis Chronic diastolic congestive heart failure (HCC)- Primary Chronic diastolic heart failure 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 Paroxysmal atrial fibrillation (HCC) Atrial fibrillation Primary hypertension Unspecified essential hypertension Mixed hyperlipidemia Presence of drug coated stent in left circumflex coronary artery Postsurgical percutaneous transluminal coronary angioplasty status USP current use of anticoagulant Long-term (current) use of anticoagulants Nonrheumatic aortic valve stenosis Aortic valve disorders Ascending aorta dilatation (HCC) Thoracic aortic ectasia [facility]* Diagnosis COPD with exacerbation (Multi)- Primary Acute upper respiratory infection Acute upper respiratory infections of unspecified site documented in this encounter [facility] Work Phone: Evaluation note* Diagnosis Stroke (HCC)- Primary Unspecified cerebral artery occlusion with cerebral infarction Cerebrovascular accident (CVA) due to embolism of cerebral artery (HCC) 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 HLD (hyperlipidemia) Other and unspecified hyperlipidemia CAD (coronary artery disease) Coronary atherosclerosis of unspecified type of vessel, kaibab or graft 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- Primary Paroxysmal atrial fibrillation (HCC) Atrial fibrillation Chronic diastolic CHF (congestive heart failure) (HCC) Chronic diastolic heart failure Primary hypertension Unspecified essential hypertension Mixed hyperlipidemia Presence of drug coated stent in left circumflex coronary artery Postsurgical percutaneous transluminal coronary angioplasty 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 Long-term (current) use of anticoagulants Nonrheumatic aortic valve stenosis Aortic valve disorders Ascending aorta dilatation (HCC) Thoracic aortic ectasia documented [facility] this encounter [facility]* Diagnosis Acute bronchitis, unspecified organism- Primary documented in this encounter [facility] Work Phone: Evaluation note* Diagnosis Ruptured infrarenal abdominal aortic aneurysm (AAA)- Primary Ruptured pararenal abdominal aortic aneurysm (AAA) (Multi) documented in this encounter [facility] Work Phone: Evaluation note* Diagnosis Stroke (HCC)- Primary Unspecified cerebral artery occlusion with cerebral infarction Cerebrovascular accident (CVA) due to embolism of cerebral artery (HCC) 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 HLD (hyperlipidemia) Other and unspecified hyperlipidemia CAD (coronary artery disease) Coronary atherosclerosis of unspecified type of vessel, kaibab or graft 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- Primary Chronic diastolic CHF (congestive heart failure) (HCC) Chronic diastolic heart failure [facility] Additional Instructions Please follow-up with medicare compliance auditor. Please return if symptoms worsen.[facility] Work Phone: Reason for referral (narrative)* Outpatient Procedure (Routine) - Closed Specialty Diagnoses / Procedures Referred By Contac t [facility]erred [facility] Diagnoses Paroxysmal atrial fibrillation (HCC) Primary hypertension Procedures ECG COMPLETE ECG ROUTINE ECG W/LEAST 12 LDS W/I&R Mark Philip MD [address] [place] [address] [facility] [address] [place] [address] Referral ID Status Reason Start Date Expiration Date V isits Requested Visits Authorized [id number] Closed Auto-Generate d Referral 02/21/2022 02/21/2023 1 1 [facility] for referral (narrative)No reason for referral information availableWMiddletown [facility] Work Phone: Summary Purpose Family History No Family History Records Found Relationship Condition Age at Onset Recorded Date/T elaine Not Specified Cardiac disease Unknown Hypertension Unknown Advance Directives No Advanced Directives Records Found Advance Directive Response Recorded Date/ Time Living Will Yes June 12, 2020 4:34pm Power of Heavy Forging Machine Operator Yes June 12 4:34pm Advance Directive Response Recorded Date/ Time Name of Medical Power of Heavy Forging Machine Operator recalled February 11, 2022 4:37pm Living Will Yes February 11 4:37pm Power of Heavy Forging Machine Operator Yes February 11, 2022 4:37pm Latest Code Status on File Code Status Date Activated Date Inactivated Comments Full Code 03/18/2023 8:49 AM Question Answer Comments Plan of Care: Code Status Discussion Not Compl eted Decision Maker: Provider Rationale: Patient condition do es not warrant discussion Advance Directive Response Recorded Date/ Time Living Will Yes February 11 4:37pm Power of Heavy Forging Machine Operator Yes February 11, 2022 4:37pm Date Activated Date Inactivated Comments 03/18/2023 8:49 AM Question Answer Comments Plan of Care: Code Status Discussion Not Compl eted Decision Maker: Provider Rationale: Patient condition does not warra nt discussion Date Activated Date Inactivated Comments 03/18/2023 8:49 AM Question Answer Comments Plan of Care: Code Status Discussion Not Compl eted Decision Maker: Provider Rationale: Patient condition does not warra nt discussion Advance Directive Response Recorded Date/ Time Living Will Yes February 11 5:37pm Do you have a Healthcare Power of Heavy Forging Machine Operator? Yes February 11, 2022 5:37pm Chief Complaint and Reason for Visit Chief Complaint 3 M FU 6 M FU Reason for Visit Bronchiectasis MARK (obstructive sleep apnea) Asthma-COPD overlap syndrome Asthma-COPD overlap syndrome Chief Complaint 2 M FU congestion Reason for Visit Bronchiectasis Asthma-COPD overlap syndrome Chief Complaint 1 Y FU 6 M FU Reason for Visit Cellulitis of right lower extremity Hypothyroidism MARK (obstructive sleep apnea) Asthma-COPD overlap syndrome BPH (benign prostatic hyperplasia) Bronchiectasis Chronic anticoagulation COPD (chronic obstructive pulmonary disease) Coronary artery disease Former smoker Hyperlipidemia Hypertension Asthma-COPD overlap syndrome Bronchiectasis Chief Complaint Admit Date 4 M FU March 16, 2024 2 :52pm Solitary pulmonary nodule March 31, 2024 6:55pm 1 Y FU April 12, 2024 1:28pm Reason for Visit Admit Date Asthma-COPD overlap syndrome March 2:52pm Bronchiectasis March 16, 2024 2 :52pm Hypoxia March 16, 2024 2 :52pm MARK (obstructive sleep apnea) March 162024 2:52pm Pulmonary nodule March 16, 2024 2 :52pm Cerebrovascular disease April 12 2 025 1:28pm Asthma-COPD overlap syndrome April 122024 1:28pm Chronic anticoagulation April 12 2 025 1:28pm COPD (chronic obstructive pulmonary dise ase) April 12, 2024 1:28pm Debility April 12, 2024 1:28pm Hyperlipidemia April 12, 2024 1:28pm Hypertension April 12, 2024 1:28pm MARK (obstructive sleep apnea) April 032024 1:28pm Paroxysmal atrial fibrillation April 12, 2024 1:28pm Pulmonary nodule April 12, 2024 1:28pm Acute exacerbation of chroni c obstructive pulmonary disease April 12, 2024 1:28pm Chief Complaint Admit Date 4 M FU March 16, 2024 2 :52pm Solitary pulmonary nodule March 31, 2024 6:55pm 1 Y FU April 12, 2024 1:28pm 4-6 M FU July 14, 2024 2:55p m Reason for Visit Admit Date Asthma-COPD overlap syndrome March 2:52pm Bronchiectasis March 16, 2024 2 :52pm Hypoxia March 16, 2024 2 :52pm MARK (obstructive sleep apnea) March 162024 2:52pm Pulmonary nodule March 16, 2024 2 :52pm Cerebrovascular disease April 12 2 025 1:28pm Asthma-COPD overlap syndrome April 122024 1:28pm Chronic anticoagulation April 12 2 025 1:28pm COPD (chronic obstructive pulmonary dise ase) April 12, 2024 1:28pm Debility April 12, 2024 1:28pm Hyperlipidemia April 12, 2024 1:28pm Hypertension April 12, 2024 1:28pm MARK (obstructive sleep apnea) April 032024 1:28pm Paroxysmal atrial fibrillation April 12, 2024 1:28pm Pulmonary nodule April 12, 2024 1:28pm Acute exacerbation of chroni c obstructive pulmonary disease April 12, 2024 1:28pm Severe persistent allergic asthma July 142024 2:55pm Medications Administered Section Inactive Administered Medications - up to 3 most recent administrations Medication Order MAR Action Action Date Dose Rate Site heparin 1,000 Units in D5W 250 mL 1,000 Units, INTRA-ARTERIAL, ONE TIME, 1 dose, Starting on Fri03/29/22 at 0801, Until 03/30/22 at 0303, NOW (EMERGENT PROCEDURE) FOR MENTAL HEALTH WORKER USE ONLY, Intraprocedure heparin 3,000 Units in NaCl 0.9% 500 mL irrigation 3,000 Units, IRRIGATION, ONE TIME, 1 dose, Starting on Fri03/29/22 at 0801, Until 03/30/22 at 0303, NOW (EMERGENT PROCEDURE) FOR MENTAL HEALTH WORKER USE ONLY For Irrigation Use Only, Intraprocedure Reason for Referral Specialty Diagnoses / Procedures Referred By Anika soria Referred To Contact Home Health Services Diagnoses COPD (chronic obstructive pulmonary disease) ([facility]) Cellulitis of right lower extremity Difficulty walking Paige Langford MD [address] [place] [address] Non-Certified [facility] [place] [address] Referral ID Status Reason Start Date Expiration Date Visits Requested Visits Authorized [id number] Canceled Specialty Services Required 03/21/2023 03/20/2024 999 999 Specialty Diagnoses / Procedures Referred By Anika soria Referred To Contact Radiology Diagnoses COPD with exacerbation (Multi) Procedures XR chest 2 views Quincy Abebe, WOOD CUTTER-PIPE BENDER [address] [place] [address] Referral ID Status Reason Start Date Expiration Date Visits Requested Visits Authorized [id number] Authorized Perform Procedure 11/17/2023 11/16/2024 1 1 Additional Source Comments (unrecognized sect ion and content) No Status Records FoundNo Status Records FoundNo Status Records FoundNo Status Records FoundNo Status Records FoundNo Status Records FoundNo Status Records FoundNo Status Records FoundNo Status Records FoundNo Status Records FoundNo Status Records FoundNo Status Records Found INFORMATION SOURCE (unrecogn ized section and content) DATE CREATED AUTHOR 08/22/2017 [facility] DATE CREATED AUTHOR AUTHOR'S ORGANIZ ATION 06/24/2018 [facility] DATE CREATED AUTHOR AUTHOR'S ORGANIZ ATION 12/09/2018 [facility] DATE CREATED AUTHOR AUTHOR'S ORGANIZ ATION 03/21/2021 [facility] DATE CREATED AUTHOR AUTHOR'S ORGANIZ ATION 04/19/2022 [facility] DATE CREATED AUTHOR AUTHOR'S ORGANIZ ATION 04/24/2022 [facility] DATE CREATED AUTHOR AUTHOR'S ORGANIZ ATION 12/20/2023 [facility] DATE CREATED AUTHOR AUTHOR'S ORGANIZ ATION 05/22/2024 [facility] DATE CREATED AUTHOR AUTHOR'S ORGANIZ ATION 09/28/2024 [facility] DATE CREATED AUTHOR AUTHOR'S ORGANIZ ATION 10/01/2024 [facility] DATE CREATED AUTHOR AUTHOR'S ORGANIZ ATION 10/14/2024 [facility] DATE CREATED AUTHOR AUTHOR'S ORGANIZ ATION 10/17/2024 [facility] <item> Privacy Markings (unrecogniz ed section and content) Section Author: Karen Abraham PROHIBITION ON REDISCLOSURE OF CONFIDENTIAL INFORMATION This notice accompanies a disclosure of information concerning a client made to you with the consent of such client. Goals (unrecognized section and content) Goals may be documented in a n alternate sectionGoals may be documented in an alternate sectionGoals may be documented in an alternate sectionGoals may be documented in an alternate sectionGoals may be documented in an alternate section Source Comments (unrecognize d section and content) In the event this informatio n is protected by the Federal Confidentiality of Alcohol and Drug Abuse Patient Records regulations: The Federal rules restrict any use of the information to criminally investigate or prosecute any alcohol or drug abuse patient.[facility] the event this information is protected by the Federal Confidentiality of Alcohol and Drug Abuse Patient Records regulations: The Federal rules restrict any use of the information to criminally investigate or prosecute any alcohol or drug abuse patient.[facility] the event this information is protected by the Federal Confidentiality of Alcohol and Drug Abuse Patient Records regulations: The Federal rules restrict any use of the information to criminally investigate or prosecute any alcohol or drug abuse patient.[facility] the event this information is protected by the Federal Confidentiality of Alcohol and Drug Abuse Patient Records regulations: The Federal rules restrict any use of the information to criminally investigate or prosecute any alcohol or drug abuse patient.[facility] the event this information is protected by the Federal Confidentiality of Alcohol and Drug Abuse Patient Records regulations: The Federal rules restrict any use of the information to criminally investigate or prosecute any alcohol or drug abuse patient.[facility] the event this information is protected by the Federal Confidentiality of Alcohol and Drug Abuse Patient Records regulations: The Federal rules restrict any use of the information to criminally investigate or prosecute any alcohol or drug abuse patient.[facility] the event this information is protected by the Federal Confidentiality of Alcohol and Drug Abuse Patient Records regulations: The Federal rules restrict any use of the information to criminally investigate or prosecute any alcohol or drug abuse patient.[facility] Campus[facility] the event this information is protected by the Federal Confidentiality of Alcohol and Drug Abuse Patient Records regulations: The Federal rules restrict any use of the information to criminally investigate or prosecute any alcohol or drug abuse patient.[facility] the event this information is protected by the Federal Confidentiality of Alcohol and Drug Abuse Patient Records regulations: The Federal rules restrict any use of the information to criminally investigate or prosecute any alcohol or drug abuse patient.[facility] Campus[facility] the event this information is protected by the Federal Confidentiality of Alcohol and Drug Abuse Patient Records regulations: The Federal rules restrict any use of the information to criminally investigate or prosecute any alcohol or drug abuse patient.[facility] the event this information is protected by the Federal Confidentiality of Alcohol and Drug Abuse Patient Records regulations: The Federal rules restrict any use of the information to criminally investigate or prosecute any alcohol or drug abuse patient.[facility] Campus[facility] the event this information is protected by the Federal Confidentiality of Alcohol and Drug Abuse Patient Records regulations: The Federal rules restrict any use of the information to criminally investigate or prosecute any alcohol or drug abuse patient.[facility] Campus[facility] the event this information is protected by the Federal Confidentiality of Alcohol and Drug Abuse Patient Records regulations: The Federal rules restrict any use of the information to criminally investigate or prosecute any alcohol or drug abuse patient.[facility] Campus[facility] the event this information is protected by the Federal Confidentiality of Alcohol and Drug Abuse Patient Records regulations: The Federal rules restrict any use of the information to criminally investigate or prosecute any alcohol or drug abuse patient.[facility] Reason for Visit (unrecogniz ed section and content) Reason Comments Follow Up Reason Onset Date Comments Preparations For Procedures 03/11/2022 Reason Comments Results Reason Comments Patient Question Reason Comments Appointment Reason Comments Breathing Problem Leg Edema Reason Comments URI Wound Check WOUND CHECK ON LEFT HAND AND RIGHT FINGER AND LEG X 1 WEEK, TROUBLE BREATHING CONGESTION, SINUS PRESSURE, COUGH X 2 WEEK Reason Comments Shortness of [facility]ath [facility]ness of breath x 2 weeks. Evaluated at Urgent Care on 03/10/23, dx pneumonia and Rx doxycycline. 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 + cough. Denies fever. Hx COPD, does not have home oxygen. Also c/o wounds right index finger, right lower leg and left hand. Specialty Diagnoses / Procedures Referred By Contac t Referred To Contact Diagnoses COPD (chronic obstructive pulmonary disease) ([facility]) Procedures Inpatient Admission Kelvin Stern MD [address] [place] [address] [facility] [address] [place] [address] Referral ID Status Reason Start Date Expiration Date Visits Re quested Visits Authorized 1 1 Reason Comments Follow Up Room 1 Reason Comments Appointment 6 mo f/u Reason Comments URI COUGH,SOB, WATERY CH EST, CHEST CONGESTION x 10 DAYS Reason Comments Follow Up Follow upHx of strok e, HTN, NSTEMI, HLD, CAD, CVA, PAF, CHF, LCA stent, ascending aorta dilatationECHO 07/09/2023ECG 03/17/2023No current cardiac concerns Reason Comments Cough Cough, wheezing and SOB x 1 week Reason Comments Shortness of Breath Abdominal Pain 2-3 days of SOB not relieved with home duonebs, Hx COPD (Nocturnal 2L chronically) Additionally states he's had lower abd. Pain x1 day with increased frequency Reason Comments Refill Request Care Teams (unrecognized sec tion and content) Biomass Plant Manager Relationship Specialty Start Date End Date Azul Chapman PCP - General Family Medicine 05/26/17 Biomass Plant Manager Relationship Specialty Start Date End Date Azul Chapman PCP - General Family Medicine 05/26/17 Biomass Plant Manager Relationship Specialty Start Date End Date Azul Chapman PCP - General Family Medicine 05/26/17 Biomass Plant Manager Relationship Specialty Start Date End Date Azul Chapman PCP - General Family Medicine 05/26/17 Biomass Plant Manager Relationship Specialty Start Date End Date Azul Chapman PCP - General Family Medicine 05/26/17 Biomass Plant Manager Relationship Specialty Start Date End Date Azul Chapman PCP - General Family Medicine 05/26/17 Biomass Plant Manager Relationship Specialty Start Date End Date Azul Chapman PCP - General Family Medicine 05/26/17 Biomass Plant Manager Relationship Specialty Start Date End Date Azul Chapman PCP - General Family Medicine 05/26/17 Biomass Plant Manager Relationship Specialty Start Date End Date Azul Chapman MD [address] [place] [address] PCP - General 03/03/18 Biomass Plant Manager Relationship Specialty Start Date End Date Ashlee Lanier MD [address] [facility] [address] [place] [address] PCP - General Internal Medicine 03/17/23 Team Status: Active Member Role Status Dates Dr. Ashlee Lanier MD Primary Care Provider Active Team Status: Inactive Member Role Status Dates Dr. Ashlee Lanier MD Primary Care Provider, Attendi ng Provider Active Team Status: Inactive Member Role Status Dates Dr. Ashlee Lanier MD Primary Care Provider, Referri ng Provider Active Jyothi Lowery COLLECTIONS MANAGER, COLLECTIONS MANAGER-C Attending Provider Active Team Status: Inactive Member Role Status Dates Dr. Ashlee Lanier MD Primary Care Pro vider, Attending Provider, Referring Provider Active Biomass Plant Manager Relationship Specialty Start Date End Date Ashlee Lanier MD [address] [facility] [address] [place] [address] PCP - General Internal Medicine 03/04/23 Oskar Ocampo MD [address] [facility] [place] [address] Pulmonary Disease 03/04/23 Biomass Plant Manager Relationship Specialty Start Date End Date Ashlee Lanier MD [address] [facility] [address] [place] [address] PCP - General Internal Medicine 03/04/23 Oskar Ocampo MD [address] [place] [address] Pulmonary Disease 03/04/23 Biomass Plant Manager Relationship Specialty Start Date End Date Ashlee Lanier MD [address] [facility] [address] [place] [address] PCP - General Internal Medicine 03/04/23 Oskar Ocampo MD [address] [place] [address] Pulmonary Disease 03/04/23 Biomass Plant Manager Relationship Specialty Start Date End Date Ashlee Lanier MD [address] [place] [address] PCP - General Internal Medicine 11/17/23 Biomass Plant Manager Relationship Specialty Start Date End Date Ashlee Lanier MD [address] [address] [place] [address] PCP - General Internal Medicine 03/04/23 Oskar Ocampo MD [address] [place] [address] Pulmonary Disease 03/04/23 Biomass Plant Manager Relationship Specialty Start Date End Date Ashlee Lanier MD [address] [place] [address] PCP - General Internal Medicine 11/17/23 Team Status: Inactive Member Role Status Dates Dr. Ashlee Lanier MD Primary Care Provider Active Start: March 16, 2024 End: March 16, 2024 Dr. Ashlee Lanier MD Referring Provider Active Start: March 16, 2024 End: March 16, 2024 Jyothi Lowery COLLECTIONS MANAGER, COLLECTIONS MANAGER-C Attending Provider Active Start: March 16, 2024 End: March 16, 2024 Team Status: Inactive Member Role Status Dates Dr. Ashlee Lanier MD Primary Care Provider Active Start: March 31, 2024 End: March 31, 2024 Jyothi Lowery COLLECTIONS MANAGER, COLLECTIONS MANAGER-C Attending Provider Active Start: March 31, 2024 End: March 31, 2024 Jyothi Lowery COLLECTIONS MANAGER, COLLECTIONS MANAGER-C Referring Provider Active Start: March 31, 2024 End: March 31, 2024 Team Status: Inactive Member Role Status Dates Dr. Ashlee Lanier MD Primary Care Provider Active Start: April 12, 2024 End: April 12, 2024 Dr. Ashlee Lanier MD Attending Provider Active Start: April 12, 2024 End: April 12, 2024 Team Status: Inactive Member Role Status Dates Dr. Ashlee Lanier MD Primary Care Provider Active Start: June 24, 2024 End: June 24, 2024 Dr. Ashlee Lanier MD Attending Provider Active Start: June 24, 2024 End: June 24, 2024 Dr. Ashlee Lanier MD Referring Provider Active Start: June 24, 2024 End: June 24, 2024 Team Status: Inactive Member Role Status Dates Dr. Ashlee Lanier MD Primary Care Provider Active Start: July 14, 2024 End: July 14, 2024 Dr. Ashlee Lanier MD Referring Provider Active Start: July 14, 2024 End: July 14, 2024 Jyothi Lowery COLLECTIONS MANAGER, COLLECTIONS MANAGER-C Attending Provider Active Start: July 14, 2024 End: July 14, 2024 Biomass Plant Manager Relationship Specialty Start Date End Date Ashlee Lanier MD [address] [place], [place] [id number] PCP - General Internal Medicine 11/17/23 Biomass Plant Manager Relationship Specialty Start Date End Date Ashlee Lanier MD [address] [id number] PCP - General Internal Medicine 03/04/23 Oskar Ocampo MD [address] [facility] [place] [address] Pulmonary Disease 03/04/23 Scheduled Active and Recently Administ ered Medications (unrecognized section and content) Medication Order 03/27/2022 03/28/2022 03/29/2022 heparin 1,000 Units in D5W 250 mL 1,000 Units, INTRA-ARTERIAL, ONE TIME, 1 dose, Starting on Fri03/29/22 at 0801, Until 03/30/22 at 0303, NOW (EMERGENT PROCEDURE) FOR MENTAL HEALTH WORKER USE ONLY, Intraprocedure heparin 3,000 Units in NaCl 0.9% 500 mL irrigation 3,000 Units, IRRIGATION, ONE TIME, 1 dose, Starting on Fri03/29/22 at 0801, Until 03/30/22 at 0303, NOW (EMERGENT PROCEDURE) FOR MENTAL HEALTH WORKER USE ONLY For Irrigation Use Only, Intraprocedure Scheduled Medication Order 03/19/2023 03/20/2023 03/21/2023 atorvastatin (Lipitor) tablet 80 mg 80 mg, oral, Nightly, First dose on Fri03/18/23 at 2100 2044 (Given - Provider: Key Perera RN) 1839 (MAR Hold - Provider: Automatic Transfer Provider - Reason: Unreviewed Transfer Orders)2013 (MAR Unhold - Provider: Kelvin Garcias MD)2030 (Given - Provider: Claudia Warren RN) 2100 (Due) bacitracin ointment Topical, 3 times daily, First dose on Fri03/18/23 at 1145, Apply to wounds 0950 (Given - Provider: Renetta Zapata RN)1631 (Given - Provider: Renetta Zapata RN - Comment: workflow)2044 (Given - Provider: Key Perera RN) 0906 (Given - Provider: Renetta Zapata RN)1611 (Given - Provider: Renetta Zapata RN)2030 (Given - Provider: Claudia Warren RN) 0917 (Given - Provider: Antoinette Carrera RN)1500 (Due)2100 (Due) budesonide (Pulmicort) 0.5 mg/2 mL nebulizer solution 0.5 mg 0.5 mg, nebulization, 2 times daily RT, First dose on Fri03/18/23 at 0900, Rinse mouth with water after use to reduce aftertaste and incidence of candidiasis. Do not swallow. 0757 (Given - Provider: Janet Hutton RRT)1905 (Given - Provider: Any Potter RRT) 0801 (Given - Provider: Janet Hutton RRT - Comment: given)1815 (Given - Provider: Any Potter RRT)183 (MAR Hold - Provider: Automatic Transfer Provider - Reason: Unreviewed Transfer Orders)2013 ([facility] Unhold - Provider: Kelvin Garcias MD) 0559 (Given - Provider: Odette Valencia RRT)1800 (Due - Provider: Odette Valencia RRT) cefTRIAXone (Rocephin) 2 g IV in dextrose 5% 50 mL 2 g, intravenous, at 100 mL/hr, Administer over 30 Minutes, Every 24 hours, First dose on Fri03/21/23 at 1200, premix bag, Suspected Indication (Select all that apply): Cellulitis, Skin and Soft Tissue, Type of Therapy: Definitive, Based on Culture, Coverage (Select all that apply): Streptococcus 1251 (New Bag - Provider: Antoinette Carrera RN)1321 (Stopped - Provider: Antoinette Carrera RN) clopidogrel (Plavix) tablet 75 mg 75 mg, oral, Daily, First dose on Fri03/18/23 at 0900 0950 (Given - Provider: Renetta Zapata RN) 0904 (Given - Provider: Renetta Zapata RN)183 (MAR Hold - Provider: Automatic Transfer Provider - Reason: Unreviewed Transfer Orders)2013 ([facility] Unhold - Provider: Kelvin Garcias MD) 0917 (Given - Provider: Antoinette Carrera RN) formoterol (Perforomist) 20 mcg/2 mL nebulizer solution 20 mcg 20 mcg, nebulization, 2 times daily RT, First dose on Fri03/18/23 at 0900 1019 (Given - Provider: Janet Hutton RRT - Comment: give this med seperate from duoneb)1915 (Given - Provider: Any Potter RRT) 0759 (Given - Provider: Janet Hutton RRT)1807 (Given - Provider: Any Potter OIL WELL CABLE TOOL OPERATOR)1839 (MAY Hold - Provider: Automatic Transfer Provider - Reason: Unreviewed Transfer Orders)2013 ([facility]Y Unhold - Provider: Kelvin Garcias MD) 0559 (Given - Provider: Odette Valencia, HIMANSHU)1800 (Due - Provider: Odette Valencia, HIMANSHU) ipratropium-albuteroL (Duo-Neb) 0.5-2.5 mg/3 mL nebulizer solution 3 mL 3 mL, nebulization, Every 4 hours RT, First dose (after last modification) on Fri03/18/23 at 1500 0214 (Given - Provider: Idania Cadet, HIMANSHU)0743 (Given - Provider: Janet Hutton OIL WELL CABLE TOOL OPERATOR)1125 (Given - Provider: Daina Mcbride RN)1546 (Given - Provider: Janet Hutton OIL WELL CABLE TOOL OPERATOR)2000 (Not Given - Provider: Any Potter RRT - Reason: Other - Comment: perforomist given instead)2234 (Given - Provider: Any Potter RRT) 0215 (Given - Provider: Kajal An RRT)0626 (Given - Provider: Janet Hutton OIL WELL CABLE TOOL OPERATOR)1017 (Given - Provider: Janet Hutton OIL WELL CABLE TOOL OPERATOR)1406 (Given - Provider: Janet Hutton RRT)1800 (Not Given - Provider: Any Potter RRT - Reason: Contraindicated - Comment: perforomist given instead)1839 (MAY Hold - Provider: Automatic Transfer Provider - Reason: Unreviewed Transfer Orders)2013 (MAY Unhold - Provider: Kelvin Garcias MD)2229 (Given - Provider: Lj Germain RRT) 0208 (Given - Provider: Lj Germain RRT)0600 (Not Given - Provider: Odette Valencia RRT - Reason: Other - Comment: perforomist and pulmicort given in place of)0931 (Given - Provider: Odette Valencia RRT)1406 (Given - Provider: Odette Valencia RRT)1800 (Due - Provider: Any Potter RRT)2200 (Due - Provider: Any Potter RRT) lactobacillus acidophilus capsule 1 capsule 1 capsule, oral, Daily, First dose on Fri03/18/23 at 1715 0950 (Given - Provider: Renetta Zapata RN) 0904 (Given - Provider: Renetta Zapata RN)183 (MAY Hold - Provider: Automatic Transfer Provider - Reason: Unreviewed Transfer Orders)2013 ([facility] Unhold - Provider: Kelvin Garcias MD) 0917 (Given - Provider: Antoinette Carrera RN) levothyroxine (Synthroid, Levoxyl) tablet 75 mcg 75 mcg, oral, Daily, First dose on Fri03/18/23 at 0900 0950 (Given - Provider: Renetta Zapata RN) 0904 (Given - Provider: Renetta Zapata RN)183 (MAY Hold - Provider: Automatic Transfer Provider - Reason: Unreviewed Transfer Orders)2013 (MAY Unhold - Provider: Kelvin Garcias MD) 09 (Given - Provider: Antoinette Carrera RN) piperacillin-tazobactam -dextrose (Zosyn) IV 4.5 g (CANCELED) 4.5 g, intravenous, at 200 mL/hr, Administer over 0.5 Hours, Every 6 hours, First dose on Fri03/18/23 at 1145, premix bag, Dosing of this medication varies based on severity of illness. Does this patient have sepsis or concern for sepsis (probable or documented infection plus systemic manifestations of infection)? Yes, Suspected Indication (Select all that apply): Cellulitis, Skin and Soft Tissue 0007 (New Bag - Provider: Selma Marie RN)0037 (Stopped - Provider: Selma Marie RN)0456 (New Bag - Provider: Selma Marie RN)0526 (Stopped - Provider: Selma Marie RN)1226 (New Bag - Provider: Renetta Zapata RN)1256 (Stopped - Provider: Renetta Zapata RN)1826 (New Bag - Provider: Renetta Zapata, MURIEL)1856 (Stopped - Provider: Renetta Zapata, MURIEL)2304 (New Bag - Provider: Renetta Chaparro, MURIEL)2334 (Stopped - Provider: Renetta Chaparro, MURIEL) 0457 (New Bag - Provider: Renetta Chaparro, MURIEL)0527 (Stopped - Provider: Renetta Chaparro RN)1249 (New Bag - Provider: Renetta Zapata RN - Comment: workflow)1319 (Stopped - Provider: Renetta Zapata RN)1830 (New Bag - Provider: Renetta Zapata RN)1900 (Stopped - Provider: Renetta Zapata RN)2344 (New Bag - Provider: Claudia Warren RN) 0014 (Stopped - Provider: Claudia Warren RN)0535 (New Bag - Provider: Claudia Warren RN)0605 (Stopped - Provider: Claduia Warren RN) polyethylene glycol (Glycolax, Miralax) packet 17 g 17 g, oral, Daily, First dose on Fri03/18/23 at 0900, Bowel Regimen - for prevention of constipation. 0900 (Not Given - Provider: Renetta Zapata RN - Reason: Patient/family refused) 0900 (Not Given - Provider: Renetta Zapata RN - Reason: Patient/family refused)183 (MAR Hold - Provider: Automatic Transfer Provider - Reason: Unreviewed Transfer Orders)2013 ([facility] Unhold - Provider: Kelvin Garcias MD) 0900 (Not Given - Provider: Antoinette Carrera RN - Reason: Patient/family refused) potassium chloride CR (Klor-Con M20) ER tablet 20 mEq 20 mEq, oral, Daily, First dose on Fri03/18/23 at 0900, Best given with food and plenty of water to minimize gastric irritation. Do not crush or chew. 0950 (Given - Provider: Renetta Zapata RN) 0904 (Given - Provider: Renetta Zapata RN)183 (MAR Hold - Provider: Automatic Transfer Provider - Reason: Unreviewed Transfer Orders)2013 (MAR Unhold - Provider: Kelvin Garcias MD) 0917 (Given - Provider: Antoinette Carrera RN) povidone-iodine (Betadine) 7.5 % soap 1 Application 1 Application, Topical, 4 times daily, First dose on Fri03/19/23 at 1700, Right Index Finger Soaks 1/3 H2O2, 1/3 Betadine, 1/3 warm saline. Soak and swish for 20 minutes. QID. Light dry sterile dressing. 182 (Given - Provider: Renetta Zapata RN)2043 (Given - Provider: Key Perera RN) 0700 (Given - Provider: Renetta Zapata RN)1250 (Given - Provider: Renetta Zapata RN)1800 (Given - Provider: Renetta Zapata RN)2030 (Given - Provider: Claudia Warren RN) 0617 (Given - Provider: Claudia Warren RN)1426 (Given - Provider: Antoinette Carrera RN)1700 (Due)2100 (Due) predniSONE (Deltasone) tablet 40 mg 40 mg, oral, Daily, First dose on Fri03/18/23 at 0900 0950 (Given - Provider: Renetta Zapata RN) 0904 (Given - Provider: Renetta Zapata RN) 0916 (Given - Provider: Antoinette Carrera RN) rivaroxaban (Xarelto) tablet 20 mg 20 mg, oral, Daily with evening meal, First dose on Fri03/18/23 at 1700, Best administered with food or immediately before tube feedings. If ordered via NG or G-tube route, crush and mix with 50 mL water; give within 4 hours of mixing. 1658 (Given - Provider: Renetta Zapata RN) 1712 (Given - Provider: Renetta Zapata RN)1839 (MAY Hold - Provider: Automatic Transfer Provider - Reason: Unreviewed Transfer Orders)2013 (MAY Unhold - Provider: Kelvin Garcias MD) 1700 (Due) sertraline (Zoloft) tablet 100 mg 100 mg, oral, Daily, First dose on Fri03/18/23 at 0900 0950 (Given - Provider: Renetta Zapata RN) 0904 (Given - Provider: Renetta Zapata RN)1839 (MAY Hold - Provider: Automatic Transfer Provider - Reason: Unreviewed Transfer Orders)2013 (MAY Unhold - Provider: Kelvin Garcias MD) 0917 (Given - Provider: Antoinette Carrera RN) vancomycin (Vancocin) 1,750 mg in dextrose 5 % in water (D5W) 500 mL IV (CANCELED) 1,750 mg, intravenous, at 285.7 mL/hr, Administer over 105 Minutes, Every 24 hours, First dose on Roxann 03/20/23 at 1600, Dosing of this medication varies based on severity of illness. Does this patient have sepsis or concern for sepsis (probable or documented infection plus systemic manifestations of infection)? Yes, Suspected Indication (Select all that apply): Cellulitis, Skin and Soft Tissue 1615 (New Bag - Provider: Renetta Zapata RN)1800 (Stopped - Provider: Renetta Zapata RN) vancomycin (Vancocin) in dextrose 5 % water (D5W) 500 mL IV 1,500 mg (CANCELED) 1,500 mg, intravenous, at 333.3 mL/hr, Administer over 90 Minutes, Every 24 hours, First dose on Fri03/18/23 at 1600, Suspected Indication (Select all that apply): Cellulitis, Skin and Soft Tissue, Type of Therapy: Empiric 1631 (New Bag - Provider: Renetta Zapata RN)1801 (Stopped - Provider: Renetta Zapata RN) Continuous Medication Order 03/19/2023 03/20/2023 03/21/2023 sodium chloride 0.9% infusion (CANCELED) 125 mL/hr, intravenous, Continuous, Starting on Fri03/17/23 at 2320 1102 (New Bag - Provider: Renetta Zapata RN)1350 (Stopped - Provider: Renetta Zapata RN) PRN Medication Order 03/19/2023 03/20/2023 03/21/2023 guaiFENesin (Robitussin) 100 mg/5 mL syrup 200 mg 200 mg, oral, Every 4 hours PRN, congestion, Starting on Fri03/19/23 at 1642 1658 (Given - Provider: Renetta Zapata RN) 1224 (Given - Provider: Abner Garcia RN)1839 (MAY Hold - Provider: Automatic Transfer Provider - Reason: Unreviewed Transfer Orders)2013 ([facility] Unhold - Provider: Kelvin Garcias MD)2046 (Given - Provider: Claudia Warren, MURIEL) 0418 (Given - Provider: Claudia Warren RN) ipratropium-albuteroL (Duo-Neb) 0.5-2.5 mg/3 mL nebulizer solution 3 mL 3 mL, nebulization, Every 2 hour PRN, wheezing, shortness of breath, Starting on Fri03/18/23 at 1348 1839 (MAY Hold - Provider: Automatic Transfer Provider - Reason: Unreviewed Transfer Orders)2013 ([facility] Unhold - Provider: Kelvin Garcias MD) 0031 (Given - Provider: Lj Germain, OIL WELL CABLE TOOL OPERATOR)1206 (Given - Provider: Odette Valencia, OIL WELL CABLE TOOL OPERATOR) ondansetron (Zofran) injection 4 mg 4 mg, intravenous, Every 4 hours PRN, nausea/vomiting, first line, Starting on Fri03/19/23 at 0125, When administering via IV Push, administer over 3-5 minutes. 0142 (Given - Provider: Selma Marie RN) 1839 (MAR Hold - Provider: Automatic Transfer Provider - Reason: Unreviewed Transfer Orders)2013 (MAR Unhold - Provider: Kelvin Garcias MD) oxygen (O2) therapy inhalation, Continuous PRN - O2/gases, other, Starting on Fri03/17/23 at 2227, Device: Nasal Cannula, Rate in liters per minute: Other, Custom Value: 1-6 0216 (Start - Provider: Idania Cadet, OIL WELL CABLE TOOL OPERATOR)0745 (Rate/Dose Verify - Provider: Janet Hutton RRT)1023 (Rate/Dose Verify - Provider: Janet Hutton RRT)1129 (Rate/Dose Verify - Provider: Daina Mcbride RN)1130 (Rate/Dose Verify - Provider: Daina Mcbride RN)1933 (Rate/Dose Verify - Provider: Any Potter, OIL WELL CABLE TOOL OPERATOR) 0215 (Rate/Dose Verify - Provider: Kajal An, OIL WELL CABLE TOOL OPERATOR)0628 (Rate/Dose Verify - Provider: Janet Hutton, OIL WELL CABLE TOOL OPERATOR)1017 (Rate/Dose Verify - Provider: Janet Hutton, OIL WELL CABLE TOOL OPERATOR)1409 (Rate/Dose Verify - Provider: Janet Hutton RRT) 0559 (Stopped - Provider: Odette Valencia, OIL WELL CABLE TOOL OPERATOR) No Frequency Medication Order 03/19/2023 03/20/2023 03/21/2023 hydrogen peroxide external solution - Omnicell Override Pull (COMPLETED) Starting on Fri03/19/23 at 1608, For 1 dose, Created by cabinet override 183 (Given - Provider: Renetta Zapata RN - Comment: given with wound care per orders from Dr. Reaves) Scheduled Medication Order 09/25/2024 09/26/2024 09/27/2024 four factor human prothrombin complex concentrate (Kcentra) 2,134 Units in 80 mL infusion 2,134 Units, intravenous, at 320 mL/hr, Administer over 15 Minutes, Once, On Fri09/27/24 at 0135, For 1 dose, Dose will be adjusted by Pharmacy to within 15% based on the actual factor IX potency of each vial which is variable. Administer at a rate of 0.12 mL/kg/minute (~3 units/kg/min) to a maximum of 8.4 mL/minute (200 units/min)., Provider specialty/service type: Emergency Medicine, Indication for use: DOAC reversal for life-threatening bleed 013 (Due)0205 (Rate/Dose Verify - Provider: Melquiades Juárez RN)0249 (Stopped - Provider: Margarito Felton RN) iohexol (OMNIPaque) 350 mg iodine/mL solution 69 mL (COMPLETED) 69 mL, intravenous, Once in imaging, Starting on Fri09/27/24 at 0036, For 1 dose 0039 (Given - Provid er: Melissa Brewer) ipratropium-albuteroL (Duo-Neb) 0.5-2.5 mg/3 mL nebulizer solution 3 mL (COMPLETED) 3 mL, nebulization, Once, On Fri09/26/24 at 2320, For 1 dose 2318 (Given - Provider: Lj Germain, OIL WELL CABLE TOOL OPERATOR) piperacillin-tazobactam (Zosyn) 4.5 g in dextrose (iso) IV 100 mL (COMPLETED) 4.5 g, intravenous, Administer over 0.5 Hours, Once, On Fri09/26/24 at 2355, For 1 dose, premix bag, Dosing of this medication varies based on severity of illness. Does this patient have sepsis or concern for sepsis (probable or documented infection plus systemic manifestations of infection)? Yes, Suspected Indication (Select all that apply): Pneumonia, Type of Therapy: Empiric, Indications: Pneumonia 005 (New Bag - Provider: Kiera Murillo RN - Comment: was in CT then issues getting cultures)005 (Restarted - Provider: Kiera Murillo RN)014 (Stopped - Provider: Kiera Murillo RN) sodium chloride 0.9 % bolus 500 mL (COMPLETED) 500 mL, intravenous, at 500 mL/hr, Administer over 1 Hours, Once, On 7/27/25 at 2320, For 1 dose 2327 (New Bag - Provider: Kiera Murillo, MURIEL) 0100 (Stopped - Provider: Kiera Murillo RN) sodium chloride 0.9 % bolus 500 mL (COMPLETED) 500 mL, intravenous, at 500 mL/hr, Administer over 1 Hours, Once, On Fri09/27/24 at 0015, For 1 dose 0102 (New Bag - Provider: Kiera Murillo, RN)0143 (Stopped - Provider: Kiera Murillo RN) PRN Medication Order 09/25/2024 09/26/2024 09/27/2024 oxygen (O2) therapy 1 Dose, inhalation, As needed, oxygen, Starting on Fri09/26/24 at 2321, May use oxymask if needed, Device: Nasal Cannula, Rate in liters per minute: 2 LPM, Keep O2 Sat Above: 90% 232 (Start - Provider: Lj Germain, OIL WELL CABLE TOOL OPERATOR) No Frequency Medication Order 09/25/2024 09/26/2024 09/27/2024 four factor human prothrombin complex concentrate (Kcentra) inj 1,000 unit (800-1240 unit) - Omnicell Override Pull Starting on Fri09/27/24 at 0115, For 1 dose, Created by cabinet override 0120 (Due) FOR RECORDS PERTAINING TO PATIENTS WHO ARE OR HAVE BEEN ENROLLED IN A CHEMICAL DEPENDENCY/SUBSTANCEABUSE PROGRAM, SOME INFORMATION MAY BE OMITTED. This clinical summary was aggregated from multiple sources. Caution should be exercised in using it in the provision of clinical care. This summary normalizes information from multiple sources, and as a consequence, information in this document may materially change the coding, format and clinical context of patient data. In addition, data may be omitted in some cases. CLINICAL DECISIONS SHOULD BE BASED ON THE PRIMARY CLINICAL RECORDS. Recommend [facility]. provides no warranty or guarantee of the accuracy or completeness of information in this document.
[2024-10-17] MEDS: 0.9% Normal Saline (1000mL) 1,000 ML 999 ML IV (20:50)
[2024-10-17 21:02] LABS: Hematocrit 31.7 % (40-54); Hemoglobin 9.8 g/dL (13.0-16.5); Immature Granulocytes Count 0.070 X10^3/uL (0.0-0.0); Mean Corp Hgb Conc 30.9 g/dL (32-36); Mean Corpuscular Volume 93.0 fL (80-94); Mean Platelet Vol. 8.7 fl (6.2-12.0); NRBC Flagged by Analyzer 0 % (0-5); Platelet Count 320 K/mm3 (150-450); RBC Distribution Width CV 16.4 % (11.6-14.6); RBC Distribution Width SD 55.7 fl (35.1-43.9); Red Blood Count 3.41 M/mm3 (4.6-6.2); White Blood Count 8.1 K/mm3 (4.4-11.0)
[2024-10-17 21:20] VITALS: BP 120/68; PULSE 72; RESP 16; O2SAT 97
[2024-10-17 21:24] LABS: AST(SGOT) 82 U/L (<=37); Alanine Aminotransfer ALT/SGPT 63 U/L (<=46); Albumin, Serum 3.0 g/dL (3.4-4.8); Alkaline Phosphatase 85 U/L (40-129); Anion Gap 11 (5-15); BUN 20 mg/dL (4-19); BUN/Creat Ratio 21.3 RATIO (10-20); Calcium,Total 8.6 mg/dL (7.6-11.0); Carbon Dioxide 21.7 mmol/L (21.0-32.0); Chloride 107 mmol/L (98-108); Estimated Creatinine Clearance 76.74 ml/min (50-250); Globulin 2.7 g/dL (2.2-4.2); Glucose 91 mg/dL (70-99); Lipase 182 U/L (13-75); Potassium 4.0 mmol/L (3.3-5.1)
[2024-10-17 21:30] LABS: Mucous, Urine 0 SEEN /hpf (<or=2+)
[2024-10-17 21:36] LABS: Color, Urine Yellow (Yellow); Glucose, Dipstick Normal (Normal); Ketone-Dipstick Negative (Negative); Leukocyte Esterase-Dipstick 500 /ul (Negative); Nitrite-Dipstick Negative (Negative); Occult Blood-Urine 150 /ul (Negative); Protein-Dipstick 30 mg/dl (Negative); Specific Gravity, Urine 1.020 (1.002-1.030); Urine Bilirubin Dipstick Negative (Negative)
[2024-10-17 21:51] LABS: Red Blood Cells-Urine 10-25 SEEN /hpf (0-5); Squamous Epithelial Cells - UA 0-5 SEEN /hpf (0-5)
[2024-10-17 23:00] VITALS: BP 138/78; PULSE 77; RESP 16; O2SAT 98
[2024-10-17] MEDS: Vancomycin HCl 2,000 MG in 0.9% Normal Saline (500mL Bag) 500 ML 250 MG IV (23:15)
[2024-10-17 23:19] VITALS: BP 132/88; PULSE 76; RESP 16; TEMP 36.6; O2SAT 98
== END 2024-10-17 23:32 | disposition skilled nursing facility (03) ==
PROVIDERS: Emergency Provider Emergency Medicine; PCP Internal Medicine; Visit Provider Emergency Medicine
DX: N39.0 Urinary tract infection, site not specified (principal); J44.9 Chronic obstructive pulmonary disease, unspecified; I48.0 Paroxysmal atrial fibrillation; R10.84 Generalized abdominal pain; I10 Essential (primary) hypertension; Z79.02 Long term (current) use of antithrombotics/antiplatelets; Z79.899 Other long term (current) drug therapy; Z87.891 Personal history of nicotine dependence
CPT/HCPCS: 74177; 80053; 81001; 83605; 83690; 85025; 87086; 87088; 96361; 96365; 99282; Q9967; A4216

== ENCOUNTER → 2024-10-30 | Outpatient (CLI) | payer MEDICARE, OTHER, SELFPAY ==
--- OUTSIDE RECORDS SUMMARY | 2024-10-30 10:53 | XMS RPT_ITS | CCD ---
Author Organization [facility] Care Team Providers Care Event Staff Name Role Phone AIDANMELQUIADES Huang Ava Unavailable Unavailable Surso, Miquel Unavailable Unavailable Surso, Miquel Unavailable Unavailable Newbill, Sarabjit Jay Admitting Unavailable [...] Care Provider Dr. Oskar Ocampo Attending Provider Dr. Oskar Ocampo Referring Provider Dr. Ashlee Lanier Referring Provider Sebastián BOWLING ALLEY MECHANIC, BOWLING ALLEY MECHANIC-C Jyothi Attending Provider Dr. Ashlee Lanier Primary Care Provider Dr. Ashlee Lanier Referring Provider Sebastián BOWLING ALLEY MECHANIC, BOWLING ALLEY MECHANIC-C Jyothi Attending Provider Surso, Alejo Primary Care Provider [phone] SURSO, ALEJO Primary Care Unavailable SLEIK, KHALED MELNURIA Attending Unavailable TRINYRODOLFOMARKNURIA Admitting Unavailable Miquel Chapman MD Primary Care Provider Chaya SALINAS, Ashlee Pichardo Primary Care Provider Dr. Ashlee Lanier Primary Care Provider Dr. Ashlee Lanier Attending Provider Dr. Ashlee Lanier Referring Provider Sebastián BOWLING ALLEY MECHANIC, BOWLING ALLEY MECHANIC-C Jyothi Attending Provider Ashlee Lanier MD Primary Care Provider Oskar Ocampo MD Unavailable IDANIA FRAIRE Attending Unavailab ASHLEE Elise Primary Care Unavailable IDANIA FRAIRE Referring Unavailab ASHLEE Elise Primary Care Unavailable IDANIA FRAIRE Referring Unavailab IDANIA Ferreira Attending Unavailab ASHLEE Elise Primary Care Unavailable Ashlee Lanier MD Primary Care Provider ASHLEE LANIER Primary Care Unavailable IDANIA FRAIRE Attending Unavailab ASHLEE Elise Primary Care Unavailable IDANIA FRAIRE Referring Unavailab Dr. Ashlee Elise MD Primary Care Provider Dr. Ashlee Lanier MD Referring Provider Sebastián BOWLING ALLEY MECHANIC-CJyothi Attending Provider Sebastián ODEN-CJyothi Referring Provider Dr. Ashlee Lanier MD Attending Provider ASHLEE LANIER Primary Care Unavaila MATTHEW Dior Attending Unavailable ASHLEE LANIER Primary Care Unavaila ble MANUEL ABEBE Attending Unavailable ASHLEE LANIER Primary Care Unavaila ble VIKTORIA THACKER Attending Unavailable Dr. Ashlee Lanier MD Primary Care Provider [phone] Dr. Ashlee Lanier MD Attending Provider Dr. Ashlee Lanier MD Referring Provider Sebastián BOWLING ALLEY MECHANIC-C, Jyothi Attending Provider Honorio SALINAS, Dr. Norris Ortiz Admit Provider Honorio SALINAS, Dr. Norris Ortiz Attending Provider Dr. Norris Olmedo MD, Chi Referring Provider Dr. Poncho Lira DO Emergency Provider [phone] PEREZ, MRINALINI Admitting Unavailable PEREZ, MRINALINI Attending Unavailable ARTURO, MATTHEW W Referring Unavailable CHAYA, ASHLEE KYLEE Primary Care Unavaila ble Chaya, Ashlee Referring Unavailable Lowery BOWLING ALLEY MECHANIC, Jyothi Attending Unavailable Chaya, Ashlee Primary Care Unavailable Chaya, Ashlee Primary Care Unavailable Chaya, Ashlee Attending Unavailable Chaya, Ashlee Referring Unavailable Lowery BOWLING ALLEY MECHANIC, Jyothi Attending Unavailable Chaya, Ashlee Primary Care Unavailable Lowery BOWLING ALLEY MECHANIC, Jyothi Attending Unavailable Chaya, Ashlee Referring Unavailable Chaya, Ashlee Primary Care Unavailable Chaya, Ashlee Primary Care Unavailable Honorio, Norris Chi Admitting Unavailable Honorio, Norris Chi Attending Unavailable Chaya, Ashlee Primary Care Unavailable Honorio, Norris Chi Attending Unavailable Honorio, Norris Chi Referring Unavailable Lowery BOWLING ALLEY MECHANIC, Jyothi Attending Unavailable Lowery BOWLING ALLEY MECHANIC, Jyothi Referring Unavailable Chaya, Ashlee Primary Care Unavailable Chaya, Ashlee Referring Unavailable Chaya, Ashlee Primary Care Unavailable Chaya, Ashlee Attending Unavailable Chaya, Ashlee Primary Care Unavailable Poncho Lira Attending Unavailable Allergies Allergy Classification Reported Allergen(s) Allergy Type Date of Onset Reaction(s) Facility Opioid Agonists (1 source) Codeine Drug Allergy 05-27-19 18 Unknown [facility] (20 sources) Codeine; Translations: [codeine] Drug Allergy 09-08-19 15 Unknown, Other [facility] (6 sources) Seasonal Allergies: Uncoded; Translations: [Seasonal Allergies: Uncoded] Allergy to substance 04-16-19 24 Congestion [facility] (3 sources) heparin; Translations: [HEPARIN] Drug Allergy 10-08-19 25 PT UNSURE OF REACTION [facility] Comment on above: heparin induced thro mbocytopenia (1 source) heparin Drug Allergy 10-18-19 [facility] Repository Medications Current Medications Medication Drug Class(es) Dates Sig (Normalized) Sig (Original) acetaminophen 325 mg oral tablet (7 sources) Start: 06-22-2020 take 2 tablets by mouth every six hours as needed for pain Acetaminophen 325 MG tablet Active 650 mg PO EVERY 6 HOURS NEEDED as needed for PAIN 1-10 0 June 22, 2020 12:00am Start: 06-22-2020 take 650 mg by mouth every six hours as needed Acetaminophen Active 650 MG PO EVERY 6 HOURS NEEDED June 21, 2020 11:00pm albuterol 0.833 mg/ml / ipratropium bromide 0.167 mg/ml inhalation solution (20 sources) Anticholinergic, beta2-Adrenergic Agonist Start: 10-13-2024 take 1 mL by inhalation every six hours as needed Ipratropium-Albuterol 0.5 mg-3 mg(2.5 mg base)/3 mL solution for nebulization Active 3 mL INHALATION EVERY 6 HOURS NEEDED October 13, 2024 12:00am wheezing Start: 09-26-2024 3 mL, nebuliza tion, Once, On 09/26/24 at 2320, For 1 dose Start: 09-26-2024 Starting on Amaya n 09/26/24 at 2316, For 1 dose, Created by cabinet override Start: 04-16-2023 End: 10-13-2024 take 1 mL by inhalation every four hours as needed Ipratropium-Albuterol 0.5 mg-3 mg(2.5 mg base)/3 mL solution for nebulization Discontinued 3 mL INHALATION EVERY 4 HOURS NEEDED 180 May 31, 2024 9:46am October 13, 2024 8:36pm Asthma-chronic obstructive pulmonary disease overlap syndrome Chronic obstructive pulmonary disease, unspecified Start: 04-16-2023 take 1 mL by inhalat [...] 4 HOURS as needed for Wheezing 180 0 August 23, 2021 2:40pm May 24, 2022 1:59pm Start: 06-11-2020 End: 05-24-2022 take 1 mL by inhalation every four hours Ipratropium-Albuterol Discontinued 3 ML INHALATION EVERY 4 HOURS 180 August 23, 2021 1:40pm May 24, 2022 12:59pm Comment on above: Inhale 3 mL as instr ucted every 4 hours as needed. amoxicillin 875 mg / clavulanate 125 mg oral tablet (9 sources) Penicillin-class Antibacterial Start: 4 End: 4 take 1 tablet by mouth twice daily amoxicillin-pot clavulanate (Augmentin) 875-125 mg tablet Indications: Cellulitis of right lower extremity Take 1 tablet (875 mg) by mouth 2 times a day for 14 days. 28 tablet 0 03/21/2023 04/04/2023 Active Start: 12-20-2021 End: 02-28-2022 Amoxicillin-Pot Clavulanate 875-125 mg tablet Discontinued 1 {tbl} PO TWICE A DAY 20 December 20, 2021 12:00am February 28, 2022 [...] day Quantity: 20 Refills: 0 Ordered: 17-May-2019 KamleshOsmel juniorn Start: 17-May-2019 End: 26-May-2019 Status: Discontinued Generic Substitution Allowed Comments: Finish all this medication unless otherwise directed by prescriber.Take with food or milk. Comment on above: Finish all this medi cation unless otherwise directed by prescriber.Take with food or milk. bacitracin 0.5 unt/mg topical ointment (1 source) Start: 03-18-19 bacitracin ointment benzonatate 100 mg oral capsule (8 sources) Non-narcotic Antitussive Start: 05-23-19 take 1 capsule by mouth every eight hours as needed Benzonatate 100 mg capsule Active 100 mg PO Q8H as needed May 22, 2021 12:00am Start: 03-17-2021 End: 03-26-2021 take 2 capsules by mouth every eight hours as needed benzonatate 100 mg oral capsule ; 1-2 cap(s) orally every 8 hours, As Needed for cough Quantity: 60 Refills: 0 Ordered: 17-Mar-2021 Matt Thackern Start: 17-Mar-2021 End: 26-Mar-2021 Generic Substitution Allowed Comments: May cause drowsiness. Alcohol may intensify this effect. Use care when operating dangerous machinery.Swallow whole. Do not crush. Comment on above: May cause drowsiness . Alcohol may intensify this effect. Use care when operating dangerous machinery.Swallow whole. Do not crush. bisacodyl 5 mg delayed release oral tablet (9 sources) Stimulant Laxative Start: 10-14-19 take 2 tablets by mouth once daily as needed Bisacodyl (Dulcolax (Bisacodyl)) 5 mg tablet,delayed release (DR/EC) Active 10 mg PO DAILY NEEDED October 13, 2024 12:00am constipation Start: 06-29-2020 End: 07-11-2020 Bisacodyl 10 mg suppository Discontinued 10 mg RC DAILY as needed June 29, 2020 12:00am July 11, 2020 9:08am cefTRIAXone 2000 mg injection (2 sources) Cephalosporin Antibacterial Start: 03-21-2023 cefTRIAXone (Rocephin) 2 g IV in dextrose 5% 50 mL Start: 03-17-2023 End: 03-17-2023 cefTRIAXone (Rocephin) 2 g I V in dextrose 5% 50 mL docusate sodium 50 mg / sennosides, [facility] 8.6 mg oral tablet (20 sources) Start: 06-11-2020 take 1 tablet by mouth twice daily senna-docusate (SENNA-S) 8.6-50 mg per tablet 1 tablet by ORAL/FEEDING TUBE route twice daily. 06/11/2020 Active Start: 06-11-2020 End: 06-22-2020 Sennosides-Docusate Sodium 1 EACH tablet Discontinued 1 NMA PO TWICE A DAY June 11, 2020 12:00am June 22, 2020 11:42am stool softener Start: 06-11-2020 End: 06-22-2020 Sennosides-Docusate Sodium D iscontinued 1 EACH PO TWICE A DAY June 10, 2020 11:00pm June 22, 2020 10:42am Comment on above: 1 tablet by ORAL/FEE DING TUBE route twice daily. doxycycline monohydrate 100 mg oral tablet (12 sources) Tetracycline-class Drug Start: End: take 1 [...] Discontinued 100 mg PO TWICE A DAY 20 0 March 08, 2022 1:00am April 10, 2022 [...] 10 mg PO every other day 60 1 January 17, 2023 4:28pm January 20, 2024 [...] once daily. guaiFENesin 20 mg/ml oral solution (13 sources) Start: 03-19-2023 take 200 mg by [...] 22, 2020 12:00am May 24, 2022 2:14pm lactobacillus acidophilus [id number] unt / pectin 100 mg oral capsule (2 sources) Start: 03-22-2023 End: 04-21-2023 take 1 capsule by mouth once daily lactobacillus acidophilus capsule Indications: Cellulitis of right lower extremity Take 1 capsule by mouth once daily. Do not start before March 22, 2023. 30 capsule 0 03/22/2023 04/21/2023 Active Start: 03-18-2023 lactobacillus acidophilus capsule 1 capsule 24 hr metoprolol succinate 50 mg extended release oral tablet (20 sources) beta-Adrenergic Carlos Start: 10-13-2024 take 1 tablet by mouth once daily Metoprolol Succinate 50 mg tablet extended release 24 hr Active 50 mg PO DAILY October 13, 2024 12:00am blood pressure Start: 06-06-2022 take 0.5 tablet by m outh once daily metoprolol tartrate, short acting, (LOPRESSOR) 25 mg tablet 0.5 tablets by ORAL/FEEDING TUBE route once daily. 06/06/2022 Active Start: 06-06-2022 take 0.5 tablet by m outh once daily metoprolol tartrate, short acting, (LOPRESSOR) 25 mg tablet 0.5 tablets by ORAL/FEEDING TUBE route once daily. 0 06/06/2022 Active Start: 06-22-2020 End: 01-17-2023 take 1 tablet by mouth at bedtime Metoprolol Succinate 50 MG tablet Discontinued 50 mg PO AT BEDTIME 30 0 June 22, 2020 12:00am July 11, 2020 4:32pm Start: 06-22-2020 End: 10-13-2024 take 1 tablet by mouth every twenty-four hours at bedtime Metoprolol Succinate 50 mg tablet extended release 24 hr Discontinued 50 mg PO AT BEDTIME 90 3 January 20, 2024 10:34am October 13, 2024 8:36pm Start: 06-11-2020 End: 06-06-2022 take 0.5 tablet by mouth every twelve hours metoprolol tartrate, short acting, (LOPRESSOR) 25 mg tablet 0.5 tablets by ORAL/FEEDING TUBE route every 12 hours. 0 06/11/2020 06/06/2022 Discontinued Start: 06-11-2020 End: 06-22-2020 Metoprolol Tartrate 25 MG ta blet Discontinued 12.5 mg PO TWICE A DAY June 11, 2020 12:00am June 22, 2020 11:41am bp Start: 06-11-2020 End: 06-22-2020 take 12.5 mg by mouth twice daily Metoprolol Tartrate Discontinued 12.5 MG PO TWICE A DAY June 10, 2020 11:00pm June 22, 2020 10:41am Comment on above: 0.5 tablets by ORAL/ FEEDING TUBE route every 12 hours. 0.5 tablets by ORAL/ FEEDING TUBE route once daily. Multivitamin 1 EACH tablet (4 sources) Start: 06-11-2020 Multivitamin 1 EACH tablet Active 1 NMA PO DAILY June 11, 2020 12:00am vitamin Start: 06-11-2020 Multivitamin 1 EACH tablet Active 1 NMA PO DAILY June 11, 2020 12:00am Multivitamin preparation (3 sources) Start: 06-11-2020 Multivitamin A ctive 1 EACH PO DAILY June 10, 2020 11:00pm Start: 06-11-2020 Multivitamin A ctive 1 EACH PO DAILY June 11, 2020 12:00am MULTIVITAMIN TAB (14 sources) Start: 08-18-2009 MULTIVITAMIN T AB Take one(1) tablet daily. 0 08/18/2009 Suspended Start: 08-18-2009 MULTIVITAMIN T AB Take one(1) tablet daily. 0 08/18/2009 Active Comment on above: Take one(1) tablet d aily. Omalizumab (Xolair) 300 mg/2 mL auto-injector (3 sources) Start: 07-14-2024 Omalizumab (Xolair) 300 mg/2 mL auto-injector Active 300 mg SC every 4 weeks 2 July 14, 2024 12:00am Start: 07-14-2024 Omalizumab (Xo lair) 300 mg/2 mL auto-injector Active 300 mg SC every 4 weeks July 14, 2024 12:00am 2 ml ondansetron 2 mg/ml injection (1 source) Serotonin-3 Receptor Antagonist Start: 03-19-2023 take 4 mg intravenously every four hours as needed ondansetron (Zofran) injection 4 mg oxygen (O2) therapy (2 sources) Start: 09-26-2024 1 Dose, inhalation, As needed, oxygen, Starting on 09/26/24 at 2321, May use oxymask if needed, Device: Nasal Cannula, Rate in liters per minute: 2 LPM, Keep O2 Sat Above: 90% Start: 03-17-2023 oxygen (O2) th erapy Oxygen - Supplemental ([facility] Use Only) gas (1 source) Start: 10-20-2024 Oxygen - Supplemental ([facility] Use Only) gas Active 0 .ROUTE October 20, 2024 12:00am copd 2L at rest can increase with exertion pantoprazole 40 mg delayed release oral tablet (2 sources) Proton Pump Inhibitor Start: 10-13-2024 take 1 tablet by mouth once daily Pantoprazole 40 mg tablet,delayed release (DR/EC) Active 40 mg PO DAILY October 13, 2024 12:00am stomach acid PEP device (7 sources) Start: 02-16-2021 PEP device Act seun 0 .ROUTE .MEDSUPPLY 1 0 February 16, 2021 1:00am Bronchiectasis, uncomplicated with training Start: 02-16-2021 PEP device Act seun 0 .ROUTE .MEDSUPPLY 1 February 16, 2021 12:00am with training Start: 02-16-2021 PEP device Act seun 0 .ROUTE .MEDSUPPLY February 16, 2021 1:00am with training polyethylene glycol [id number] mg powder for oral solution (1 source) Osmotic Laxative Start: 03-18-2023 17 g, oral, D qianay, First dose on Fri03/18/23 at 0900 Bowel Regimen - for prevention of constipation. povidone-iodine 75 mg/ml topical solution (2 sources) Antiseptic Start: 03-19-2023 End: 03-28-2023 povidone-iodine (Betadine) 7.5 % solution Indications: Cellulitis of right lower extremity Apply 1 Application topically 4 times a day for 7 days. 14 mL 0 03/21/2023 03/28/2023 Active predniSONE 10 mg oral tablet (20 sources) Start: 10-13-2024 take 5 mg by mouth once daily Prednisone 10 mg tablet Active 5 mg PO DAILY October 13, 2024 12:00am COPD Start: 07-14-2024 End: 07-26-2024 Prednisone 10 mg tablet Discontinued 10 mg PO daily 30 12 July 14, 2024 12:00am July 25, 2024 12:00am July 26, 2024 12:07am take 4 tabs for three days, then [...] tablet Indications: COPD (chronic obstructive pulmonary disease) ([facility]) Take 4 tablets (40 mg) by mouth [...] mg tablet Discontinued 40 mg PO DAILY 14 February 11, 2022 1:00am February 28, 2022 9:15am [...] with food or milk Start: 09-20-2021 End: 10-13-2024 take 1 tablet by mouth once daily Prednisone 10 mg tablet Discontinued 10 mg PO DAILY 90 November 19, 2022 8:26am November 27, 2023 2:28pm Obstructive chronic bronchitis with exacerbation Chronic obstructive pulmonary disease with (acute) exacerbation Start: 05-22-2021 End: 09-20-2021 take 4 tablets by mouth once daily, then take 3 tablets by mouth once daily, then take 2 tablets by mouth once daily, then take 1 tablet by mouth once daily Prednisone 10 mg tablet Discontinued 10 mg PO DAILY 30 May 22, 2021 12:00am September 20, 2021 11:18am Asthma-chronic obstructive pulmonary disease overlap syndrome Obstructive chronic bronchitis with exacerbation Chronic obstructive pulmonary disease, unspecified Chronic obstructive pulmonary disease with (acute) exacerbation Take 4 tabs PO daily for 3 [...] tablet by mouth once daily at dinner Rivaroxaban 20 mg tablet Discontinued 20 mg PO DAILY 90 3 January 17, 2023 4:29pm January 20, 2024 10:35am must administer with evening meal Start: 06-22-2020 End: 07-11-2020 Rivaroxaban 1 EACH tablets,d ose pack Discontinued 1 NMA PO DIRECTED June 22, 2020 12:00am July 11, 2020 12:16pm Start: 06-22-2020 End: 07-11-2020 Rivaroxaban 1 EACH [...] Ordered: 07-Jan-2019 Vannessa Larios Generic Substitution Allowed spironolactone 25 mg oral tablet (20 sources) Aldosterone Antagonist Start: 04-14-19 Spironolactone 25 mg tablet Active 12.5 mg PO DAILY April 14, 2023 1:00am blood pressure Start: 04-14-2023 take 12.5 mg by mout [...] Take 0.5 tablets by mouth once daily. tamsulosin hydrochloride 0.4 mg oral capsule (2 sources) alpha-Adrenergic Carlos Start: 10-14-19 take 1 capsule by mouth once daily Tamsulosin (Flomax) 0.4 mg capsule Active 0.4 mg PO DAILY October 13, 2024 12:00am prostate valsartan 320 mg oral tablet (1 source) Angiotensin 2 Receptor Carlos take 1 tablet by mouth once daily valsartan 320 mg oral tablet ; 1 tab(s) orally once a day Quantity: 0 Refills: 0 Ordered: 22-Sep-2019 Selma Bland Status: Other Generic Substitution Allowed Completed/Discontinued Medications Medication Drug Class(es) Dates Sig (Normalized) Sig (Original) [id number] 200 actuat albuterol 0.09 mg/actuat metered dose inhaler (20 sources) beta2-Adrenergic Agonist Start: 05-24-2022 End: 07-25-2023 take 2.5 mg by inhalation every four hours as needed for wheezing Albuterol Sulfate 2.5 mg /3 mL (0.083 %) solution for nebulization Discontinued 2.5 mg INHALATION Q4H as needed for Sob &/Or Wheezing 180 3 May 15, 2023 11:14am July 25, 2023 2:29pm Start: 08-23-2021 End: 03-17-2023 Albuterol Sulfate Active [...] Medication=albuterol sulfate HFA 90 mcg/actuation aerosol inhaler, OriginatingSource=[employer] #[employer], OriginatingProvider=Padma Recinos, Duration=17, Refills=4, Date [...] PUFF INHALATION EVERY 4 HOURS NEEDED 1 30 July 11, 2020 3:28pm August 23, 2021 1:40pm Start: 08-18-2009 take 2 puff(s) by in halation every four hours as needed albuterol sulfate(VENTOLIN HFA 90 MCG/ACTUATION AEROSOL INHALER) 2 puffs every 4 hours as needed 0 08/18/2009 Active albuterol Quanti ty: 0 Refills: 0 Ordered: 07-Jan-2019 Flavio Lariossteve Status: Discontinued Generic Substitution Allowed Comment on above: Source=[employer], Medication=albuterol sulfate HFA 90 mcg/actuation aerosol inhaler, OriginatingSource=[employer] [facility], OriginatingProvider=Padma Recinos, Duration=17, Refills=4, Date Last Modified/Filled=21-May-2020 2 puffs every 4 hour s as needed amLODIPine 5 mg oral tablet (20 sources) Dihydropyridine Calcium Channel Carlos Start : 06-22 End: 01-19 take 1 tablet by mouth once daily Amlodipine 5 mg tablet Discontinued 5 mg PO DAILY 90 3 January 17, 2023 4:28pm January 20, 2024 10:35am Comment on above: Take by mouth. amoxicillin 875 mg oral tablet (1 source) Penicillin-class Antibacterial Start : 01-24 End: 01-30 take 1 tablet by mouth twice daily amoxicillin 875 mg oral tablet ; 1 tab(s) orally 2 times a day Quantity: 14 Refills: 0 Ordered: 25-Jan-2020 TeeOsmeln Start: 25-Jan-2020 End: 31-Jan-2020 Status: Other Generic Substitution Allowed Comments: Finish all this medication unless otherwise directed by prescriber. Comment on above: Finish all this medi cation unless otherwise directed by prescriber. apixaban 5 mg oral tablet (7 sources) Factor Xa Inhibitor Start : 06-29 End: 07-11 take 1 tablet by mouth twice daily Apixaban (Eliquis) 5 mg tablet Discontinued 5 mg PO TWICE A DAY June 29, 2020 12:00am July 11, 2020 12:15pm aspirin 650 mg delayed release oral tablet (2 sources) Platelet Aggregation Inhibitor, Nonsteroidal Anti-inflammatory Drug Start : 03-29 End: 03-29 Aspirin 650 mg EC tablet Take 81 mg by mouth one time only. 0 03/29/2022 03/29/2022 Comment on above: Take 81 mg by mouth one time only. atorvastatin 80 mg oral tablet (20 sources) HMG-CoA Reductase Inhibitor Start : 06-11 take 1 tablet by mouth once daily at bedtime atorvastatin (LIPITOR) 80 mg tablet 1 tablet by ORAL/FEEDING TUBE route daily at bedtime. 06/11/2020 Active Start: 06-11-2020 End: 01-20-2024 take 1 tablet by mouth at bedtime Atorvastatin 80 mg tablet Discontinued 80 mg PO AT BEDTIME 90 3 January 17, 2023 4:28pm January 20, 2024 10:35am cholesterol Comment on above: 1 tablet by ORAL/FEE DING TUBE route daily at bedtime. azithromycin 250 mg oral tablet (15 sources) Macrolide Antimicrobial Start: 04-12-19 End: 04-17-19 take 1 tablet by mouth once daily Azithromycin 250 mg tablet Discontinued 250 mg PO daily 5 5 0 April 12, 2024 1:00am April 16, 2024 1:00am April 17, 2024 1:19am Acute exacerbation of chronic obstructive pulmonary disease Chronic obstructive pulmonary disease with (acute) exacerbation Start: 04-03-2024 azithromycin ( Zithromax Z-Jatin) 250 mg tablet Indications: Acute bronchitis, unspecified organism Take 2 tablets by mouth at once on day 1, then 1 tablet once a day on days 2-5. Take with a meal. 6 tablet 04/03/2024 Active Start: 11-21-2021 End: 12-20-2021 take 2-5 tablets by mouth once daily Azithromycin 250 mg tablet Discontinued 0 PO .COMPLEX 6 0 November 21, 2021 12:00am December 20, 2021 [...] water (D5W) 250 mL IV 500 mg brompheniramine maleate 0.4 mg/ml / dextromethorphan hydrobromide 2 mg/ml / pseudoephedrine hydrochloride 6 mg/ml oral solution (1 source) alpha-Adrenergic Agonist, Uncompetitive D-avxtwg-Y-aspartate Receptor Antagonist, Sigma-1 Agonist Start: End: take 5 mL by mouth every six hours brompheniramine/pse udoephedrine/dextro methorphan [id number]/5 mL oral syrup ; 5 milliliter(s) orally [...] may affect the action of this medication. budesonide 0.5 mg/ml inhalation suspension (20 sources) Corticosteroid Start: budesonide (PULMICORT) 0.25 mg/2 mL nebulizer solution Use 2 mL via nebulizer two times a day. 03/05/2024 Active Start: 04-16-2023 End: 08-11-2024 take 1 mg by inhalation twice daily Budesonide 1 mg/2 mL suspension for nebulization Discontinued 1 mg INHALATION TWICE A DAY 120 6 October 22, 2023 9:53am November 27, 2023 2:28pm Chronic obstructive pulmonary disease, unspecified Start: 03-18-2023 budesonide (Pu lmicort) 0.5 mg/2 mL nebulizer solution 0.5 mg Start: 04-02-2021 End: 04-13-2021 take 1 mg by inhalation twice daily Budesonide 1 mg/2 mL suspension for nebulization Discontinued 1 mg INHALATION TWICE A DAY 60 6 April 02, 2021 1:00am April 13, 2021 5:01pm Chronic obstructive pulmonary disease, unspecified Budesonide-Formoterol (20 sources) Corticosteroid, beta2-Adrenergic Agonist Start: 04-13-2021 End: 04-21-2021 Budesonide-Formoterol (Symbicort) 160-4.5 mcg/actuation HFA aerosol inhaler Discontinued 2 NMA INHALATION TWICE A DAY 1 3 April 13, 2021 1:00am April 21, 2021 6:45am administer with spacer, rinse mouth after each use Start: 04-13-2021 End: 04-21-2021 Budesonide-Formoterol (Symbi leon) 160-4.5 mcg/actuation HFA aerosol inhaler Discontinued 2 NMA INHALATION TWICE A DAY 1 April 13, 2021 1:00am April 21, 2021 6:45am administer with spacer, rinse mouth after each use Start: 04-13-2021 End: 04-21-2021 take 1 puff(s) by mouth twice daily Budesonide-Formoterol (Symbicort) 160-4. 5 mcg/actuation HFA aerosol inhaler Discontinued 2 PUFF INHALATION TWICE A DAY 1 April 13, 2021 12:00am April 21, 2021 5:45am administer with spacer, rinse mouth after each use Start: 04-13-2021 End: 04-21-2021 take 1 puff(s) by mouth twice daily Budesonide-Formoterol (Symbicort) 160-4. 5 mcg/actuation HFA aerosol inhaler Discontinued 2 PUFF [...] puff(s) by mouth twice daily Budesonide-Formoterol (Symbicort) 160-4. 5 mcg/actuation HFA aerosol inhaler Discontinued 2 PUFF INHALATION TWICE A DAY 1 March 29, 2021 3:11pm April 02, 2021 3:00pm administer with spacer, rinse mouth after each use Start: 03-29-2021 End: 04-02-2021 take 1 puff(s) by mouth twice daily Budesonide-Formoterol (Symbicort) 160-4. 5 mcg/actuation HFA aerosol inhaler Discontinued 2 PUFF INHALATION TWICE A DAY 1 March 29, 2021 4:11pm April 02, 2021 4:00pm administer with spacer, rinse mouth after each use Start: 03-20-2021 End: 03-29-2021 Budesonide-Formoterol (Symbi leon) 160-4.5 mcg/actuation HFA aerosol inhaler Discontinued 2 NMA INHALATION TWICE A DAY 1 3 March 20, 2021 1:00am March 29, 2021 [...] puff(s) by mouth twice daily Budesonide-Formoterol (Symbicort) 160-4. 5 mcg/actuation HFA aerosol inhaler Discontinued 2 PUFF INHALATION TWICE A DAY 1 March 20, 2021 12:00am March 29, 2021 3:12pm administer with spacer, rinse mouth after each use Start: 03-20-2021 End: 03-29-2021 take 1 puff(s) by mouth twice daily Budesonide-Formoterol (Symbicort) 160-4. 5 mcg/actuation HFA aerosol inhaler Discontinued 2 PUFF INHALATION TWICE A DAY 1 March 20, 2021 1:00am March 29, 2021 4:12pm administer with spacer, rinse mouth after each use Start: 12-12-2020 End: 02-16-2021 Budesonide-Formoterol 160-4. 5 mcg/actuation HFA aerosol inhaler Discontinued 2 NMA INHALATION Q12H December 12, 2020 12:00am February 16, 2021 2:20pm Start: 12-12-2020 End: 02-16-2021 Budesonide-Formoterol Discon tinued 2 INH INHALATION Q12H December 11, 2020 11:00pm February 16, 2021 1:20pm Start: 07-11-2020 End: 11-22-2020 Budesonide-Formoterol 160-4. 5 mcg/actuation HFA aerosol inhaler Discontinued 2 NMA INHALATION Q12H 10.2 5 July 11, 2020 4:29pm November 22, 2020 1:10pm Start: 07-11-2020 End: 11-22-2020 Budesonide-Formoterol 160-4. 5 [...] inhaler Discontinued 10.2 g IH Q12H 1 0 June 22, 2020 12:00am July 11, 2020 4:32pm Start: 12-13-2019 take 2 puff[facility] daily budesonide-formoterol 160 mcg-4.5 mcg/in h inhalation aerosol ; 2 puff(s) inhaled 2 times a day Quantity: 1 Refills: 0 Ordered: 13-Dec-2019 Allyson Lomax Start: 13-Dec-2019 Status: Other Generic Substitution Allowed Comments: Check with your doctor before becoming .For inhalation only.Rinse mouth thoroughly after use. Comment on above: Check with your doct or before becoming .For inhalation only.Rinse mouth thoroughly after use. Budesonide-Glycopyr- Formoterol (7 sources) Corticosteroid, beta2-Adrenergic Agonist Start: 02-16-2021 End: 03-20-2021 Ohhupayfis-Xaxvmduq-Ocdii terol (Breztri Aerosphere) 160-9-4.8 mcg/actuation HFA aerosol inhaler Discontinued 2 NMA INHALATION TWICE A DAY 10.7 6 February 16, 2021 1:00am March 20, 2021 9:56am Start: 02-16-2021 End: 03-20-2021 Gefutanspd-Rqrcspzn-Upqznqco ol (Breztri Aerosphere) 160-9-4.8 mcg/actuation HFA aerosol inhaler Discontinued 2 NMA INHALATION TWICE A DAY 10.7 February 16, 2021 1:00am March 20, 2021 9:56am Start: 02-16-2021 End: 03-20-2021 Rnaqllieoc-Okxmsgap-Hgzeyqer ol (Breztri Aerosphere) 160-9-4.8 mcg/actuation HFA aerosol inhaler Discontinued 2 INH INHALATION TWICE A DAY 10.7 February 16, 2021 12:00am March 20, 2021 8:56am Start: 02-16-2021 End: 03-20-2021 Vydvsgeosp-Ofjpufzr-Cqexwtmj ol (Breztri Aerosphere) 160-9-4.8 mcg/actuation HFA aerosol inhaler Discontinued 2 INH INHALATION TWICE A DAY 10.7 February 16, 2021 1:00am March 20, 2021 9:56am clopidogrel 75 mg oral tablet (20 sources) [id number] Platelet Inhibitor Start: 06-15-2018 End: 01-20-2024 take 1 tablet by mouth once daily Clopidogrel 75 mg tablet Discontinued 75 mg PO DAILY 90 January 17, 2023 4:28pm January 20, 2024 10:35am blood thinner Plavix Quantity: 0 Refills: 0 Ordered: 07-Jan-2019 Ric Melansteve Status: Discontinued Generic Substitution Allowed Comment on above: Take 1 tablet by richmond th once daily. 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 doxycycline (Vibramycin) in dextrose 5 % in water (D5W) 100 mL IV 100 mg (1 source) Start: End: take 100 mg intravenously every twelve hours doxycycline (Vibramycin) in dextrose 5 % in water (D5W) 100 mL IV 100 mg 2 ml dupilumab 150 mg/ml auto-injector (9 sources) Interleukin-4 Receptor alpha Antagonist Start: End: Dupilumab (Dupixent Pen) 300 mg/2 mL pen injector Discontinued 300 mg SC every 2 weeks 4 December 02, 2023 8:46am March 16, 2024 4:22pm Former smoker Personal history of nicotine dependence Dupilumab 300 mg/2 mL pen injector (4 sources) Start: 024 End: Dupilumab 300 mg/2 mL pen injector Discontinued 600 mg SC ONCE 4 December 04, 2023 12:00am March 16, 2024 4:22pm as a single dose Start: 12-04-2023 End: 03-16-2024 Dupilumab 300 mg/2 mL pen in jector Discontinued 600 mg SC ONCE December 04, 2023 12:00am March 16, 2024 4:22pm as a single dose Racslmannjq-Zeudfrwid-Xixwrv er (20 sources) Anticholinergic, Corticosteroid, beta2-Adrenergic Agonist Start: 04-16-2023 End: 04-16-2023 Ennuglpbugf-Jmzrajhyc-Gblpeb er (Trelegy Ellipta) 100-62.5-25 mcg blister with device Discontinued 1 NMA INHALATION DAILY 60 5 April 16, 2023 3:11pm April 16, 2023 3:27pm Start: 04-16-2023 End: 04-16-2023 Enlavftopyu-Yestihcws-Otyklr er (Trelegy Ellipta) 100-62.5-25 mcg blister with device Discontinued 1 NMA INHALATION DAILY 60 April 16, 2023 3:11pm April 16, 2023 3:27pm Start: 04-16-2023 End: 04-16-2023 Pfnhlodyijf-Qxpqhztnh-Nzpjwt er (Trelegy Ellipta) 100-62.5-25 mcg blister with device Discontinued 1 INH INHALATION DAILY 60 April 16, 2023 2:11pm April 16, 2023 2:27pm Start: 04-09-2023 End: 04-16-2023 Uzlptisxicn-Hzvpjtfyv-Mypexl er (Trelegy Ellipta) 100-62.5-25 mcg blister with device Discontinued 1 NMA INHALATION DAILY 60 5 April 09, 2023 12:44pm April 16, 2023 3:12pm Start: 04-09-2023 End: 04-16-2023 Qslxkkampdd-Aoabzwebg-Xkexms er (Trelegy Ellipta) 100-62.5-25 mcg blister with device Discontinued 1 NMA INHALATION DAILY 60 April 09, 2023 12:44pm April 16, 2023 3:12pm Start: 04-09-2023 End: 04-16-2023 Jrkcvxujkan-Faqlnnrob-Ltcbfo er (Trelegy Ellipta) 100-62.5-25 mcg blister with device Discontinued 1 INH INHALATION DAILY 60 April 09, 2023 11:44am April 16, 2023 2:12pm Start: 03-10-2023 Trelegy Ellipt a 100-62.5-25 mcg blister with device 03/10/2023 Active Start: 10-08-2022 End: 04-09-2023 Nfrsavpxhpg-Tgsyuspza-Nhxpee er (Trelegy Ellipta) 100-62.5-25 mcg blister with device Discontinued 1 NMA INHALATION DAILY 60 5 October 08, 2022 2:00pm April 09, 2023 12:44pm Start: 10-08-2022 End: 04-09-2023 Oxodipjpbzl-Klnnqltkt-Kddlpm er (Trelegy Ellipta) 100-62.5-25 mcg blister with device Discontinued 1 NMA INHALATION DAILY 60 October 08, 2022 2:00pm April 09, 2023 12:44pm Start: 10-08-2022 End: 04-09-2023 Xyzjhlinsmp-Exemoflur-Dbguow er (Trelegy Ellipta) 100-62.5-25 mcg blister with device Discontinued 1 INH INHALATION DAILY 60 October 08, 2022 1:00pm April 09, 2023 11:44am Start: 04-11-2022 End: 10-08-2022 Ahwlnvvfmhe-Zgrzgapng-Xvgrxs er (Trelegy Ellipta) 100-62.5-25 mcg blister with device Discontinued 1 NMA INHALATION DAILY 60 April 11, 2022 10:05am October 08, 2022 2:01pm Start: 04-11-2022 End: 10-08-2022 Ksttspabiqh-Sxeuadlcj-Ucddun er (Trelegy Ellipta) 100-62.5-25 mcg blister with device Discontinued 1 NMA INHALATION DAILY 60 April 11, 2022 10:05am October 08, 2022 2:01pm Start: 04-11-2022 End: 10-08-2022 Yeoneoeszsv-Tapqdmppm-Qikuez er (Trelegy Ellipta) 100-62.5-25 mcg blister with device Discontinued 1 INH INHALATION DAILY 60 April 11, 2022 9:05am October 08, 2022 1:01pm Start: 02-14-2022 End: 03-05-2024 take 1 puff(s) by inhalation once daily TRELEGY ELLIPTA 100-62.5-25 mcg inhalati on powder INHALE 1 PUFF DAILY DIRECTED 02/14/2022 03/05/2024 Discontinued Start: 09-18-2021 End: 04-11-2022 Xbqksnzrcuj-Qdaxnxiax-Wzghhg er (Trelegy Ellipta) 100-62.5-25 mcg blister with device Discontinued 1 NMA INHALATION DAILY 60 5 September 18, 2021 8:42am April 11, 2022 10:06am Start: 09-18-2021 End: 04-11-2022 Mduzhuzxmit-Bcfnosafj-Hpboby er (Trelegy Ellipta) 100-62.5-25 mcg blister with device Discontinued 1 NMA INHALATION DAILY 60 September 18, 2021 8:42am April 11, 2022 10:06am Start: 09-18-2021 End: 04-11-2022 Uuwhwovczkx-Buwqsubfo-Xqcwbc er (Trelegy Ellipta) 100-62.5-25 mcg blister with device Discontinued 1 INH INHALATION DAILY 60 September 18, 2021 7:42am April 11, 2022 9:06am Start: 09-18-2021 Fluticasone-Um eclidin-Vilanter (Trelegy Ellipta) 100-62.5-25 mcg blister with device Active 1 INH INHALATION DAILY 60 September 18, 2021 7:42am Start: 08-23-2021 End: 09-18-2021 Enyhkdytshy-Ryozpkhii-Iaavvl er (Trelegy Ellipta) 100-62.5-25 mcg blister with device Discontinued 1 NMA INHALATION DAILY 60 0 August 23, 2021 2:40pm September 18, 2021 8:43am Start: 08-23-2021 End: 09-18-2021 Wqwfglfquzf-Mrykhohya-Qorzid er (Trelegy Ellipta) 100-62.5-25 mcg blister with device Discontinued 1 NMA INHALATION DAILY 60 August 23, 2021 2:40pm September 18, 2021 8:43am Start: 08-23-2021 End: 09-18-2021 Kcpvwlermdn-Vrvwobxfg-Uulrtq er (Trelegy Ellipta) 100-62.5-25 mcg blister with device Discontinued 1 INH INHALATION DAILY 60 August 23, 2021 1:40pm September 18, 2021 7:43am Start: 08-23-2021 Fluticasone-Um eclidin-Vilanter (Trelegy Ellipta) 100-62.5-25 mcg blister with device Active 1 INH INHALATION DAILY 60 August 23, 2021 2:40pm Start: 04-21-2021 End: 08-23-2021 Ubibitspvqq-Ephpgpmlr-Khvyzo er (Trelegy Ellipta) 100-62.5-25 mcg blister with device Discontinued 1 NMA INHALATION DAILY 60 3 April 21, 2021 1:00am August 23, 2021 2:40pm Start: 04-21-2021 End: 08-23-2021 Vpqlsqhlqgt-Dmwuqiuej-Enhfca er (Trelegy Ellipta) 100-62.5-25 mcg blister with device Discontinued 1 NMA INHALATION DAILY 60 April 21, 2021 1:00am August 23, 2021 2:40pm Start: 04-21-2021 End: 08-23-2021 Bicrkhvrihn-Bhhpujwph-Bkgttc er (Trelegy Ellipta) 100-62.5-25 mcg blister with device Discontinued 1 INH INHALATION DAILY 60 April 21, 2021 12:00am August 23, 2021 1:40pm Start: 04-21-2021 End: 08-23-2021 Loepkijfsxr-Agvedhhte-Lkmubo er (Trelegy Ellipta) 100-62.5-25 mcg blister with device Discontinued 1 INH INHALATION DAILY 60 April 21, 2021 1:00am August 23, 2021 2:40pm Comment on above: INHALE 1 PUFF DAILY DIRECTED glycopyrrolate 0.025 mg/ml inhalation solution (7 sources) Start: End: take 25 ug by inhalation once daily in the morning Glycopyrrol-Nebuli zer-Accessor (Lonhala Magnair Starter) 25 mcg/mL solution for nebulization Discontinued 1 mL INHALATION TWICE A DAY 60 April 02, 2021 1:00am April 13, 2021 5:01pm administer in the morning and evening at the same times each day hydrALAZINE hydrochloride 25 mg oral tablet (7 sources) Arteriolar Vasodilator Start: End: take 1 tablet by mouth every four hours as needed Hydralazine 25 mg tablet Discontinued 25 mg PO Q4H as needed June 29, 2020 12:00am July 11, 2020 2:52pm hydrogen peroxide 30 mg/ml topical solution (1 source) Start: End: hydrogen peroxide external solution - Omnicell Override Pull iohexol (OMNIPaque) 350 mg iodine/mL solution 69 mL (1 source) Start: End: 69 mL, intravenous, Once in imaging, Starting on Fri09/27/24 at 0036, For 1 dose iohexol (OMNIPaque) 350 mg iodine/mL solution 70 mL (1 source) Start: End: iohexol (OMNIPaque) 350 mg iodine/mL solution 70 mL iohexol (OMNIPaque) 350 mg iodine/mL solution 74 mL (1 source) Start: End: iohexol (OMNIPaque) 350 mg iodine/mL solution 74 mL ipratropium bromide 0.2 mg/ml inhalation solution (20 sources) Anticholinergic Start: End: take 1 mL by inhalation every six hours as needed for wheezing Ipratropium [place] 0.02 % solution Discontinued 2.5 mL INHALATION EVERY 6 HOURS as needed for shortness of breath or wheezing 150 6 May 24, 2022 12:00am April 16, 2023 3:27pm Start: 06-29-2020 End: 04-10-2022 Ipratropium [place] 21 mcg ( 0.03 %) spray,non-aerosol Discontinued 2 NMA INTRANASAL TWICE A DAY June 29, 2020 12:00am April 10, 2022 3:55pm administer into each nostril Start: 06-29-2020 End: 04-10-2022 take 1 spray(s) nasal route twice daily Ipratropium [place] Discontinued 2 SPRAY INTRANASAL TWICE A DAY June 28, 2020 11:00pm April 10, 2022 2:55pm administer into each nostril Start: 06-22-2020 End: 06-29-2020 Ipratropium [place] 1 SPRAY spray,non-aerosol Discontinued 2 NMA NASAL THREE TIMES A DAY 1 June 22, 2020 12:00am June 29, 2020 1:57pm Start: 06-22-2020 End: 06-29-2020 Ipratropium [place] Disconti nued 2 SPRAY NASAL THREE TIMES A DAY 1 June 21, 2020 11:00pm June 29, 2020 12:57pm irbesartan 300 mg oral tablet (9 sources) Angiotensin 2 Receptor Carlos Start: 06-11-2020 End: 06-22-2020 take 1 tablet by mouth once daily Irbesartan 300 MG tablet Discontinued 300 mg PO DAILY June 11, 2020 12:00am June 22, 2020 11:39am bp irbesartan Quant ity: 0 Refills: 0 Ordered: 07-Jan-2019 Bowling, Melanic Status: Discontinued Generic Substitution Allowed levoFLOXacin 500 mg oral tablet (7 sources) Quinolone Antimicrobial Start: 05-22-2021 End: 09-20-2021 take 1 tablet by mouth every twenty-four hours Levofloxacin 500 mg tablet Discontinued 500 mg PO Q24H 7 0 May 22, 2021 12:00am September 20, 2021 11:18am Asthma-chronic obstructive pulmonary disease overlap syndrome Chronic obstructive pulmonary disease, unspecified levothyroxine sodium 0.075 mg oral tablet (20 sources) l-Thyroxine Start: 04-27-2019 End: 01-20-2024 take 1 tablet by mouth once daily Levothyroxine 75 mcg tablet Discontinued 75 ug PO DAILY 90 3 January 17, 2023 4:28pm January 20, 2024 10:35am thyroid take 1 tablet by mouth once shameka y levothyroxine 75 mcg (0.075 mg) oral tablet ; 1 tab(s) orally once a day Quantity: 0 Refills: 0 Ordered: 22-Sep-2019 Selma Bland Generic Substitution Allowed levothyroxine Qu antity: 0 Refills: 0 Ordered: 07-Jan-2019 Bowling, Melanic Status: Discontinued Generic Substitution Allowed Comment on above: Take 75 mcg by mouth daily before breakfast. losartan potassium 100 mg oral tablet (20 sources) Angiotensin 2 Receptor Carlos Start: End: 4 take 1 tablet by mouth once daily Losartan 100 mg tablet Discontinued 100 mg PO DAILY 90 3 January 17, 2023 4:28pm January 20, 2024 10:35am magnesium chloride 598 mg delayed release oral tablet (18 sources) Start: End: 4 take 1 tablet by mouth twice daily Magnesium Chloride 71.5 mg tablet,delayed release (DR/EC) Discontinued 71.5 mg PO TWICE A DAY 180 July 11, 2020 4:31pm January 20, 2024 10:35am magnesium hydroxide 80 mg/ml oral suspension (7 sources) Start: End: take 1 mL by mouth twice daily [...] TWICE A DAY June 28, 2020 11:00pm July 11, 2020 8:08am methylPREDNISolone 125 mg injection (1 source) Corticosteroid Start: 03-17-2023 End: 03-17-2023 methylPREDNISolone sod succinate (SOLU-Medrol) injection 125 mg montelukast 10 mg oral tablet (20 sources) Leukotriene Receptor Antagonist Start: 04-02-2021 End: 03-16-2024 take 1 tablet by mouth once daily in the evening Montelukast 10 mg tablet Discontinued 10 mg PO EVERY EVENING 90 3 December 01, 2023 8:31am March 16, 2024 4:23pm Comment on above: Take 10 mg by mouth daily at bedtime. nitroglycerin 0.4 mg sublingual tablet (20 sources) [...] take 4.5 g intravenously every six hours jeltkhhpkvpc-tjgatgkndw-qacqiblw (Zosyn) IV 4.5 g microencapsulated potassium chloride 20 meq extended release oral tablet (20 sources) Start: 06-22-2020 End: 10-13-2024 take 1 tablet by mouth once daily at mealtime Potassium Chloride 20 mEq tablet,ER particles/crystals Discontinued 0 .ROUTE .COMPLEX 90 January 20, 2024 10:35am October 13, 2024 8:36pm TAKE 1 TABLET BY MOUTH ONCE DAILY WITH a meal. sennosides, [facility] 8.6 mg oral capsule (7 sources) Start: 06-29-2020 End: 07-11-2020 take 1 capsule by mouth twice daily Sennosides (Senna) 8.6 mg capsule Discontinued 8.6 mg PO TWICE A DAY June 29, 2020 12:00am July 11, 2020 9:09am sertraline 100 mg oral tablet (20 sources) Serotonin Reuptake Inhibitor Start: 06-22-2020 End: 01-20-2024 take 1 tablet by mouth once daily Sertraline (Zoloft) 100 mg tablet Discontinued 100 mg PO DAILY 90 January 17, 2023 4:29pm January 20, 2024 10:35am 1000 ml sodium chloride 9 mg/ml injection (7 sources) Start: 09-26-2024 End: 09-27-2024 500 mL, intravenous, at 500 mL/hr, Administer over 1 Hours, Once, On Fri09/27/24 at 0015, For 1 dose Start: 03-17-2023 End: 03-19-2023 sodium chloride 0.9% infusio n Start: 03-17-2023 End: 03-18-2023 sodium chloride 0.9 % bolus 1,000 mL 60 actuat tiotropium 0.0025 mg/actuat inhalation spray (14 sources) Anticholinergic Start: 03-29-2021 End: 04-02-2021 take 2.5 ug by inhalation once daily Tiotropium [place] (Spiriva Respimat) 2.5 mcg/actuation mist Discontinued 2 NMA INHALATION DAILY 4 March 29, 2021 4:11pm April 02, 2021 4:01pm Start: 03-29-2021 End: 04-02-2021 take 1 puff(s) by inhalation once daily Tiotropium [place] (Spiriva Respimat) 2.5 mcg/actuation mist Discontinued 2 PUFF INHALATION DAILY March 29, 2021 3:11pm April 02, 2021 3:01pm Start: 03-20-2021 End: 03-29-2021 take 2.5 ug by inhalation once daily Tiotropium [place] (Spiriva Respimat) 2.5 mcg/actuation mist Discontinued 2 NMA INHALATION DAILY 4 3 March 20, 2021 1:00am March 29, 2021 4:12pm Start: 03-20-2021 End: 03-29-2021 take 2.5 ug by inhalation once daily Tiotropium [place] (Spiriva Respimat) 2.5 mcg/actuation mist Discontinued 2 NMA INHALATION DAILY March 20, 2021 1:00am March 29, 2021 4:12pm Start: 03-20-2021 End: 03-29-2021 take 1 puff(s) by inhalation once daily Tiotropium [place] (Spiriva Respimat) 2.5 mcg/actuation mist Discontinued 2 PUFF INHALATION DAILY March 20, 2021 12:00am March 29, 2021 3:12pm Start: 03-20-2021 End: 03-29-2021 take 1 puff(s) by inhalation once daily Tiotropium [place] (Spiriva Respimat) 2.5 mcg/actuation mist Discontinued 2 PUFF INHALATION DAILY March 20, 2021 1:00am March 29, 2021 4:12pm Umeclidinium-Vilanterol (7 sources) Anticholinergic, beta2-Adrenergic Agonist Start: 11-22-2020 End: 02-16-2021 Umeclidinium-Vilanterol (Anoro Ellipta) 62.5-25 mcg/actuation blister with device Discontinued 1 NMA INHALATION DAILY 60 6 November 22, 2020 12:00am February 16, 2021 2:20pm Chronic obstructive pulmonary disease, unspecified Start: 11-22-2020 End: 02-16-2021 Umeclidinium-Vilanterol (Ano ro [...] Active Problems Problem Classification Problem Date Documented Da te Episodic/Chronic Abdominal pain (2 sources) Abdominal pain; Translations: [Unspecified abdominal pain] 10-17-2024 Episodic Acute bronchitis (2 sources) Acute bronchitis; Translations: [...] Chronic Aortic; peripheral; and visceral artery aneurysms (16 sources) Ascending aorta dilatation; Translations: [Thoracic aortic ectasia] Onset: 09-02-2023 09-02-2023 Chronic Asthma (20 sources) Asthma-chronic obstructive pulmonary disease overlap syndrome; Translations: [Asthma-chronic obstructive pulmonary disease overlap syndrome] Onset: 10-27-2024 02-16-2021 Chronic Comment on above: Chronic prednisone [...] consistent with bronchiectasis mid to lower lobes. Coagulation and hemorrhagic disorders (4 sources) Heparin-induced thrombocytopenia; Translations: [Heparin-induced thrombocytopenia] 10-13-2024 Chronic Complications of surgical procedures or medical care (5 sources) Postoperative ileus; Translations: [Other postprocedural complications and disorders of digestive system] Onset: 10-27-2024 10-13-2024 Episodic Congestive heart failure; nonhypertensive (20 sources) Diastolic [...] hypertension] Onset: 11-20-2020 Chronic Heart valve disorders (16 sources) Nonrheumatic aortic (valve) insufficiency; Translations: [Nonrheumatic aortic (valve) stenosis] Onset: 05-01-2017 06-29-2020 Chronic Hyperplasia of prostate (11 sources) Benign prostatic hyperplasia; Translations: [Benign prostatic hyperplasia without lower urinary tract symptoms] Onset: 10-27-2024 06-29-2020 Chronic Intestinal obstruction without hernia (1 source) Ileus, unspecified; Translations: [Ileus, unspecified] Onset: 10-27-2024 Episodic Malaise and fatigue (12 sources) Asthenia; Translations: [Other malaise] Onset: 10-27-2024 06-29-2020 Episodic Mood disorders (4 sources) Depressive disorder; Translations: [Depression] 10-13-2024 Chronic Mood disorders (1 source) Mood disorders; Translations: [Depression, unspecified] Onset: 10-27-2024 Nutritional deficiencies (1 source) Vitamin D deficiency, unspecified; Translations: [Vitamin D deficiency, unspecified] Onset: 04-12-2024 Chronic Other aftercare (16 sources) Long-term current use of anticoagulant; Translations: [senior living (current) use of anticoagulants] Onset: 03-04-2023 06-29-2020 Episodic Other aftercare (1 source) Encounter for surgical aftercare following surgery on the circulatory system; Translations: [Encounter for surgical aftercare following surgery on the circulatory system] Onset: 10-27-2024 Episodic Other and ill-defined cerebrovascular disease (9 sources) Cerebrovascular disease; Translations: [Cerebrovascular disease, unspecified] 12-12-2020 Chronic Comment on above: Left MCA distributio n stroke 06/2020 Other and ill-defined heart disease (7 sources) Left ventricular hypertrophy; Translations: [Cardiomegaly] 06-29-2020 Chronic Other circulatory disease (7 sources) Disorder of carotid artery; Translations: [Disorder of arteries and arterioles, unspecified] 12-12-2020 Chronic Other circulatory disease (1 source) Disorder of arteries and arterioles, unspecified; Translations: [Disorder of arteries and arterioles, unspecified] Onset: 04-12-2024 Chronic Other circulatory disease (2 sources) Hypotension, unspecified; Translations: [Hypotension, unspecified] Onset: 09-27-2024 Episodic Other gastrointestinal disorders (1 source) Constipation, unspecified; Translations: [Constipation, unspecified] Onset: 10-21-2024 Episodic Other lower respiratory disease (1 source) Dyspnea on exertion; Translations: [Shortness of breath] Episodic Other lower respiratory disease (10 sources) Nodule of lung; Translations: [Solitary pulmonary nodule] 03-17-2024 Episodic Other lower respiratory disease (8 sources) Hypoxia; Translations: [Hypoxemia] 07-25-2023 Episodic Other nervous system disorders (1 source) Difficulty walking; Translations: [Difficulty in walking, not elsewhere classified] 03-21-2023 Chronic Other upper respiratory infections (9 sources) Viral upper respiratory tract infection; Translations: [Acute upper respiratory infection, unspecified] Onset: 11-17-2023 02-19-2022 Episodic Frannie-; endo-; and myocarditis; cardiomyopathy (except that caused by tuberculosis or sexually transmitted disease) (1 source) Cardiomyopathy; Translations: [Other cardiomyopathies] Chronic Peripheral and visceral atherosclerosis (2 sources) Peripheral vascular disease; Translations: [Peripheral vascular disease, unspecified] 03-21-2023 Chronic Phlebitis; thrombophlebitis and thromboembolism (5 sources) Deep venous thrombosis; Translations: [Acute embolism and thrombosis of unspecified deep veins of unspecified lower extremity] Onset: 10-27-2024 10-13-2024 Episodic Residual codes; unclassified (13 sources) Obstructive sleep apnea syndrome; Translations: [Obstructive sleep apnea (adult) (pediatric)] 09-20-2021 Chronic Comment on above: Noncompliant Residual codes; unclassified (4 sources) Obstructive sleep apnea (adult) (pediatric); Translations: [Obstructive sleep apnea (adult)(pediatric)] Onset: 09-27-2024 Chronic Residual codes; unclassified (7 sources) Snuff user; Translations: [Tobacco use] 06-29-2020 Episodic Residual codes; unclassified (2 sources) Localized edema; Translations: [Localized edema] Onset: 09-27-2024 Episodic Respiratory failure; insufficiency; arrest (adult) (7 sources) Acute respiratory failure; Translations: [Acute respiratory failure with hypoxia] Onset: 09-27-2024 10-13-2024 Episodic Septicemia (except in labor) (1 source) Septic shock; Translations: [Sepsis, unspecified organism] 03-18-2023 Episodic Shock (1 source) Shock; Translations: [Shock, unspecified] 03-18-2023 Episodic Skin and subcutaneous tissue infections (8 sources) Cellulitis of left upper limb; Translations: [Cellulitis of left upper limb] 03-10-2023 Episodic Thyroid disorders (12 sources) Hypothyroidism; Translations: [Hypothyroidism, unspecified] Onset: 04-12-2024 04-09-2021 Chronic Unclassified (1 source) Infrarenal abdominal aortic aneurysm, ruptured; Translations: [Infrarenal abdominal aortic aneurysm, ruptured] Onset: 09-27-2024 Unclassified (1 source) Pararenal abdominal aortic aneurysm, ruptured (Multi); Translations: [Pararenal abdominal aortic aneurysm, ruptured (Multi)] Onset: 09-26-2024 Unclassified (4 sources) 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) 10-13-2024 Unclassified (1 source) Abdominal aortic aneurysm, without rupture, unspecified; Translations: [Abdominal aortic aneurysm, without rupture, unspecified] Onset: 09-27-2024 Unclassified (1 source) Heparin-induced thrombocytopenia, unspecified (Multi); Translations: [Heparin-induced thrombocytopenia, unspecified (Multi)] Onset: 09-27-2024 Unclassified (2 sources) Abdominal aortic aneurysm, ruptured, unspecified; Translations: [Abdominal aortic aneurysm, ruptured, unspecified] Onset: 10-21-2024 Unclassified (1 source) Heparin-induced thrombocytopenia, unspecified; Translations: [Heparin-induced thrombocytopenia, unspecified] Onset: 10-27-2024 Urinary tract infections (16 sources) Urinary tract infectious disease; Translations: [Urinary tract infection, site not specified] Onset: 05-28-2017 05-30-2017 Episodic Viral infection (1 source) Disease caused by 2019-nCoV; Translations: [Other specified viral infection] 03-17-2021 Episodic Viral infection (4 sources) Disease caused by 2019-nCoV 03-17-2021 Comment on above: WORSENING COVID SYMP TOMS Past or Other Problems Problem Classification Problem Date Documented Da te Episodic/Chronic Coronary atherosclerosis and other heart disease (20 sources) Post percutaneous transluminal coronary angioplasty; Translations: [Coronary angioplasty status] Onset: 11-20-2020 11-20-2020 Episodic Diabetes mellitus without complication (1 source) Hyperglycemia, unspecified; Translations: [Hyperglycemia, unspecified] Onset: 04-12-2024 Episodic Genitourinary symptoms and ill-defined conditions (20 sources) Delay when starting to pass urine; Translations: [Hesitancy of micturition] Onset: 05-30-2017 05-30-2017 Episodic Nonspecific chest pain (5 sources) Chest pain; Translations: [Chest pain, unspecified] Onset: 05-27-2017 Resolved: 05-28-2017 05-28-2017 Episodic Other aftercare (4 sources) 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; Translations: [Long-term (current) [...] conditions (not mental disorders or infectious disease) (8 sources) Raised prostate specific antigen; Translations: [Elevated prostate specific antigen [PSA]] Onset: 04-12-2024 10-13-2020 Episodic Screening and history of mental health and substance abuse codes (9 sources) Ex-smoker; Translations: [Personal history of nicotine [...] Translations: [Heparin-induced thrombocytopenia, unspecified (Multi)] Onset: 09-27-2024 Results Test Name Value Interpretation Reference Range Facility Basic Metabolic Profile (BMP )on 10-28-2024 BUN/CRE 15.4 RATIO Normal 10-20 [facility] Comment on above: Performed By: #### L 503.6005 #### [facility] [address] [place], [place], [id number] Calcium [Mass/Vol] 8.6 mg/dL Normal 7.6-11.0 [facility] Comment on above: Performed By: #### L 503.6005 #### [facility] [address] [place], [place], [address] Chloride [Moles/Vol] 106 mmol/L Normal 98-108 [facility] Comment on above: Performed By: #### L 503.6005 #### [facility] [address] [place], [address] CO2 [Moles/Vol] 26.7 mmol/L Normal 21.0-32.0 [facility] Comment on above: Performed By: #### L 503.6005 #### [facility] [address] [place], [address] Creatinine [Mass/Vol] 1.10 mg/dL Normal 0.70-1.20 [facility] Comment on above: Performed By: #### L 503.6005 #### [facility] [address] [place], [address] ECRCL 62.47 ml/min Normal 50-250 [facility] Comment on above: Performed By: #### L 503.6005 #### [facility] [address] [place], [address] GAP 8 Normal 5-15 [facility] Comment on above: Performed By: #### L 503.6005 #### [facility] [address] [place], [address] GFR/1.73 sq M.predicted among non-blacks MDRD (S/P/Bld) [Vol rate/Area] 70 mL/min/{1.73_m2} Normal >60 [facility] Comment on above: Result Comment: mL/m in/1.73m2 CKD-EPI Creatinine Equation (2020) Performed By: #### L 503.6005 #### [facility] [address] [place], [address] Glucose [Mass/Vol] 87 mg/dL Normal 70-99 [facility] Comment on above: Performed By: #### L 503.6005 #### [facility] [address] [place], [address] Potassium [Moles/Vol] 3.9 mmol/L Normal 3.3-5.1 [facility] Comment on above: Performed By: #### L 503.6005 #### [facility] [address] [place], [address] Sodium [Moles/Vol] 141 mmol/L Normal 133-145 [facility] Comment on above: Performed By: #### L 503.6005 #### [facility] [address] [place], [address] Urea nitrogen [Mass/Vol] 17 mg/dL Normal 4-19 [facility] Comment on above: Performed By: #### L 503.6005 #### [facility] [address] [place], [address] CBC W/Diff, Automatedon 10-02 Absolute Lymph 1.50 X10 3/uL Normal 0.83-4.51 [facility] Comment on above: Performed By: #### L 503.6005 #### [facility] [address] [place], [address] Absolute Neut 6.6 X10 3/uL Normal 2.0-7.7 [facility] Comment on above: Performed By: #### L 503.6005 #### [facility] [address] [place], [address] Basophils/100 WBC (Bld) 0.2 % Normal 0-1 [facility] Comment on above: Performed By: #### L 503.6005 #### [facility] [address] [place], [address] Eosinophils/100 WBC (Bld) 2.8 % Normal 0-5 [facility] Comment on above: Performed By: #### L 503.6005 #### [facility] [address] [place], [address] Erythrocyte distribution width (RBC) [Ratio] 18.1 % High 11.6-14.6 [facility] Comment on above: Performed By: #### L 503.6005 #### [facility] [address] [place], [address] Hematocrit (Bld) [Volume fraction] 35.9 % Low 40-54 [facility] Comment on above: Performed By: #### L 503.6005 #### [facility] [address] [place], [address] Hemoglobin (Bld) [Mass/Vol] 11.2 g/dL Low 13.0-16.5 [facility] Comment on above: Performed By: #### L 503.6005 #### [facility] [address] [place], [address] IG% 0.800 Normal 0.0-0.9 [facility] Comment on above: Result Comment: IG% - Immature Granulocytes (promyelocytes, myelocytes and metamyelocytes) > 1% indicates that a LEFT SHIFT is Present. Performed By: #### L 503.6005 #### [facility] [address] [place], [address] Lymphocytes/100 WBC (Bld) 16.5 % Low 19-41 [facility] Comment on above: Performed By: #### L 503.6005 #### [facility] [address] [place], [address] MCH (RBC) [Entitic mass] 29.2 pg Normal 27.0-32.0 [facility] Comment on above: Performed By: #### L 503.6005 #### [facility] [address] [place], [address] MCHC (RBC) [Mass/Vol] 31.2 g/dL Low 32-36 [facility] Comment on above: Performed By: #### L 503.6005 #### [facility] [address] [place], [address] MCV (RBC) [Entitic vol] 93.7 fL Normal 80-94 [facility] Comment on above: Performed By: #### L 503.6005 #### [facility] [address] [place], [address] Monocytes/100 WBC (Bld) 6.9 % Normal 0-10 [facility] Comment on above: Performed By: #### L 503.6005 #### [facility] [address] [place], [address] Neutrophils/100 WBC (Bld) 72.8 % High 47-70 [facility] Comment on above: Performed By: #### L 503.6005 #### [facility] [address] [place], [address] Nucleated RBC (Bld) [#/Vol] 0 10*3/uL Normal 0-5 [facility] Comment on above: Performed By: #### L 503.6005 #### [facility] [address] [place], [address] Platelet mean volume (Bld) [Entitic vol] 8.9 fL Normal 6.2-12.0 [facility] Comment on above: Performed By: #### L 503.6005 #### [facility] [address] [place], [address] Platelets (Bld) [#/Vol] 217 10*3/uL Normal 150-450 [facility] Comment on above: Performed By: #### L 503.6005 #### [facility] [address] [place], [address] RBC (Bld) [#/Vol] 3.83 10*6/uL Low 4.6-6.2 [facility] Comment on above: Performed By: #### L 503.6005 #### [facility] [address] [place], [address] RDW SD 62.2 fl High 35.1-43.9 [facility] Comment on above: Performed By: #### L 503.6005 #### [facility] [address] [place], [address] WBC (Bld) [#/Vol] 9.1 10*3/uL Normal 4.4-11.0 [facility] Comment on above: Performed By: #### L 503.6005 #### [facility] [address] [place], [address] COVID 19 AG RAPID (RN BEAR T)on 10-27-2024 SARS-CoV-2 (COVID-19) RNA LOGAN+probe Ql (Unsp spec) *Negative results from patients with symptom onset beyond five days should be treated as presumptive and confirmed by a molecular assay if clinically necessary. Negative results should not be used as the sole basis for treatment or for patient management. SARS-CoV-2 Ag Resp Ql IA.rapid *Positive results do not differentiate between SARS-CoV and SARS-CoV-2. If differentiation of the specific SARS virus is desired an additional sample and an additional order is required. SARS-CoV-2 Ag Resp Ql IA.rapid * This test has not been FDA cleared or approved; the test has been authorized by FDA under an Emergency Use Authorization (EAU) for use by laboratories certified under CLIA that meet the requirements to perform moderate, high, or waived complexity tests. SARS-CoV-2 Ag Resp Ql IA.rapid Normal Reference Range: Negative SARS-CoV-2 (COVID 19) Negative RAPID METHOD BinaxNow COVID19 Ag Card Normal [facility] Comment on above: Performed By: #### L 100.0100, L501.2450, L500.4050 #### [facility] [address] [place], [address] Chest PA and Lateralon 10-27 Chest PA and Lateral [facility] [address] [place] [address] Chest PA and Lateral MR#: [id number] Acct: [id number] Name: OLI DE LA FUENTE Jr. Rep #: [id number] : [id number] M 73 From: Hal martin MD PCP: Dr. Ashlee Lanier MD Status: ADM IN Study: Chest PA and Lateral Date of Exam: 10/27/24 Exam# [id number] Ordering Dr: Norris Olmedo MD PROCEDURE: CHEST PA AND LATERAL 10/27/2024 REASON FOR EXAM: COUGH. TECHNIQUE: CHEST PA AND LATERAL COMPARISON: Prior study dated October 15, 2024. FINDINGS: Hardware: None Heart: The heart is nonenlarged. Mediastinum: The mediastinal contour is stable. Lungs: Hyperinflation. There is evidence of patchy density in the right lower lobe with findings suggestive of bronchiectasis and possible chronic scarring. Follow-up recommended. Bones: Degenerative changes are identified within the thoracic spine. RAD/Chest PA and Lateral IMPRESSION: Hyperinflation. Patchy infiltrate in the right lower lobe with evidence of scarring and bronchiectasis. Reading Location: [id number] CC: Dr. Ashlee Lanier MD; Dr. Norris Olmedo MD Therapeutic Strategy Lead: Signed Normal [facility] RESPIRATORY PANEL MOLECULARo n 10-27-2024 RP PANEL Normal Reference Range = Not Detected Resp path DNA+RNA Pnl Resp LOGAN+probe Nucleic acid amplification test method ADENOVIRUS Not Detected INFLUENZA A Not Detected INFLUENZA A (SUBTYPE H1) Not Detected INFLUENZA A (SUBTYPE H3) Not Detected INFLUENZA B Not Detected HUMAN METAPHNEUMO Not Detected PARAINFLUENZA 1 Not Detected PARAINFLUENZA 2 Not Detected PARAINFLUENZA 3 Not Detected PARAINFLUENZA 4 Not Detected RHINOVIRUS Not Detected RSV A Not Detected RSV B Not Detected Normal [facility] Comment on above: Performed By: #### L 503.6005 #### [facility] [address] [place], [address] COVID 19 AG RAPID (RN ANGELY Soria)on 10-25-2024 SARS-CoV-2 (COVID-19) RNA LOGAN+probe Ql (Unsp spec) *Negative results from patients with symptom onset beyond five days should be treated as presumptive and confirmed by a molecular assay if clinically necessary. Negative results should not be used as the sole basis for treatment or for patient management. SARS-CoV-2 Ag Resp Ql IA.rapid *Positive results do not differentiate between SARS-CoV and SARS-CoV-2. If differentiation of the specific SARS virus is desired an additional sample and an additional order is required. SARS-CoV-2 Ag Resp Ql IA.rapid * This test has not been FDA cleared or approved; the test has been authorized by FDA under an Emergency Use Authorization (EAU) for use by laboratories certified under CLIA that meet the requirements to perform moderate, high, or waived complexity tests. SARS-CoV-2 Ag Resp Ql IA.rapid Normal Reference Range: Negative SARS-CoV-2 (COVID 19) Negative RAPID METHOD BinaxNow COVID19 Ag Card [facility] Comment on above: Performed By: #### L 100.0100, L501.2450, L500.4050 #### [facility] [address] [place] [address]. [place], [address] COVID 19 AG RAPID (RN COLLE T)on 10-23-2024 SARS-CoV-2 (COVID-19) RNA LOGAN+probe Ql (Unsp spec) *Negative results from patients with symptom onset beyond five days should be treated as presumptive and confirmed by a molecular assay if clinically necessary. Negative results should not be used as the sole basis for treatment or for patient management. SARS-CoV-2 Ag Resp Ql IA.rapid *Positive results do not differentiate between SARS-CoV and SARS-CoV-2. If differentiation of the specific SARS virus is desired an additional sample and an additional order is required. SARS-CoV-2 Ag Resp Ql IA.rapid * This test has not been FDA cleared or approved; the test has been authorized by FDA under an Emergency Use Authorization (EAU) for use by laboratories certified under CLIA that meet the requirements to perform moderate, high, or waived complexity tests. SARS-CoV-2 Ag Resp Ql IA.rapid Normal Reference Range: Negative SARS-CoV-2 (COVID 19) Negative RAPID METHOD BinaxNow COVID19 Ag Card [facility] Comment on above: Performed By: #### L 100.0100, L501.2450, L500.4050 #### [facility] [address] [place], [address] Absolute lymphocyte countOrd ered By: Norris Olmedo on 10-21-2024 Lymphocytes Auto (Unsp spec) [#/Vol] 1.16 10*3/uL 0.83-4.51 [facility] Absolute neutrophil countOrd ered By: Norris Martelok on 10-21-2024 Neutrophils (Bld) [#/Vol] 3.2 10*3/uL 2.0-7.7 [facility] Anion gap in Serum or Plasma Ordered By: Norris Honorio on 10-21-2024 Anion gap [Moles/Vol] 11 mmol/L - [facility] Automated lymphocyte count a s percentage of total leukocytesOrdered By: Norris Martelok on 10-21-2024 Lymphocytes/100 WBC Auto (Unsp spec) 22.0 % [facility] BUN/creatinine ratioOrdered By: Norris Honorio on 10-21-2024 Urea nitrogen/Creatinine [Mass ratio] 13.2 mg/mg - [facility] Basic Metabolic Profile (BMP )on 10-21-2024 BUN/CRE 13.2 RATIO Normal - [facility] Comment on above: Performed By: #### L 100.0100, L501.2450, L500.4050 #### [facility] [address] [place], [address] Calcium [Mass/Vol] 7.9 mg/dL Normal 7.6-11.0 [facility] Comment on above: Performed By: #### L 100.0100, L501.2450, L500.4050 #### [facility] [address] [place], [address] Chloride [Moles/Vol] 106 mmol/L Normal 98-108 [facility] Comment on above: Performed By: #### L 100.0100, L501.2450, L500.4050 #### [facility] [address] [place], [address] CO2 [Moles/Vol] 22.1 mmol/L Normal 21.0-32.0 [facility] Comment on above: Performed By: #### L 100.0100, L501.2450, L500.4050 #### [facility] [address] [place], [address] Creatinine [Mass/Vol] 0.92 mg/dL Normal 0.70-1.20 [facility] Comment on above: Performed By: #### L 100.0100, L501.2450, L500.4050 #### [facility] [address] [place], [address] ECRCL 78.40 ml/min Normal 50-250 [facility] Comment on above: Performed By: #### L 100.0100, L501.2450, L500.4050 #### [facility] [address] [place], [address] GAP 11 Normal 5-15 [facility] Comment on above: Performed By: #### L 100.0100, L501.2450, L500.4050 #### [facility] [address] [place], [address] GFR/1.73 sq M.predicted among non-blacks MDRD (S/P/Bld) [Vol rate/Area] 87 mL/min/{1.73_m2} Normal >60 [facility] Comment on above: Result Comment: mL/m in/1.73m2 CKD-EPI Creatinine Equation (2020) Performed By: #### L 100.0100, L501.2450, L500.4050 #### [facility] [address] [place], [address] Glucose [Mass/Vol] 90 mg/dL Normal 70-99 [facility] Comment on above: Performed By: #### L 100.0100, L501.2450, L500.4050 #### [facility] [address] [place], [address] Potassium [Moles/Vol] 3.4 mmol/L Normal 3.3-5.1 [facility] Comment on above: Performed By: #### L 100.0100, L501.2450, L500.4050 #### [facility] [address] [place], [address] Sodium [Moles/Vol] 138 mmol/L Normal 133-145 [facility] Comment on above: Performed By: #### L 100.0100, L501.2450, L500.4050 #### [facility] [address] [place], [address] Urea nitrogen [Mass/Vol] 12 mg/dL Normal 4-19 [facility] Comment on above: Performed By: #### L 100.0100, L501.2450, L500.4050 #### [facility] [address] [place], [address] Basophil percentageOrdered B y: Norris Olmedo on 10-21-2024 Basophils/100 WBC (Bld) 0.4 % 0-1 [facility] CBC W/Diff, Automatedon 08 Absolute Lymph 1.16 X10 3/uL Normal 0.83-4.51 [facility] Comment on above: Performed By: #### L 100.0100, L501.2450, L500.4050 #### [facility] [address] [place], [address] Absolute Neut 3.2 X10 3/uL Normal 2.0-7.7 [facility] Comment on above: Performed By: #### L 100.0100, L501.2450, L500.4050 #### [facility] [address] [place], [address] Basophils/100 WBC (Bld) 0.4 % Normal 0-1 [facility] Comment on above: Performed By: #### L 100.0100, L501.2450, L500.4050 #### [facility] [address] [place], [address] Eosinophils/100 WBC (Bld) 2.7 % Normal 0-5 [facility] Comment on above: Performed By: #### L 100.0100, L501.2450, L500.4050 #### [facility] [address] [place], [address] Erythrocyte distribution width (RBC) [Ratio] 17.1 % High 11.6-14.6 [facility] Comment on above: Performed By: #### L 100.0100, L501.2450, L500.4050 #### [facility] [address] [place], [address] Hematocrit (Bld) [Volume fraction] 32.5 % Low 40-54 [facility] Comment on above: Performed By: #### L 100.0100, L501.2450, L500.4050 #### [facility] [address] [place], [address] Hemoglobin (Bld) [Mass/Vol] 10.3 g/dL Low 13.0-16.5 [facility] Comment on above: Performed By: #### L 100.0100, L501.2450, L500.4050 #### [facility] [address] [place], [address] IG% 4.000 High 0.0-0.9 [facility] Comment on above: Result Comment: IG% - Immature Granulocytes (promyelocytes, myelocytes and metamyelocytes) > 1% indicates that a LEFT SHIFT is Present. Performed By: #### L 100.0100, L501.2450, L500.4050 #### [facility] [address] [place], [address] Lymphocytes/100 WBC (Bld) 22.0 % Normal 19-41 [facility] Comment on above: Performed By: #### L 100.0100, L501.2450, L500.4050 #### [facility] [address] [place], [address] MCH (RBC) [Entitic mass] 29.2 pg Normal 27.0-32.0 [facility] Comment on above: Performed By: #### L 100.0100, L501.2450, L500.4050 #### [facility] [address] [place], [address] MCHC (RBC) [Mass/Vol] 31.7 g/dL Low 32-36 [facility] Comment on above: Performed By: #### L 100.0100, L501.2450, L500.4050 #### [facility] [address] [place], [address] MCV (RBC) [Entitic vol] 92.1 fL Normal 80-94 [facility] Comment on above: Performed By: #### L 100.0100, L501.2450, L500.4050 #### [facility] [address] [place], [address] Monocytes/100 WBC (Bld) 10.0 % Normal 0-10 [facility] Comment on above: Performed By: #### L 100.0100, L501.2450, L500.4050 #### [facility] [address] [place], [address] Neutrophils/100 WBC (Bld) 60.9 % Normal 47-70 [facility] Comment on above: Performed By: #### L 100.0100, L501.2450, L500.4050 #### [facility] [address] [place], [address] Nucleated RBC (Bld) [#/Vol] 0 10*3/uL Normal 0-5 [facility] Comment on above: Performed By: #### L 100.0100, L501.2450, L500.4050 #### [facility] [address] [place], [address] Platelet mean volume (Bld) [Entitic vol] 8.6 fL Normal 6.2-12.0 [facility] Comment on above: Performed By: #### L 100.0100, L501.2450, L500.4050 #### [facility] [address] [place], [address] Platelets (Bld) [#/Vol] 244 10*3/uL Normal 150-450 [facility] Comment on above: Performed By: #### L 100.0100, L501.2450, L500.4050 #### [facility] [address] [place], [address] RBC (Bld) [#/Vol] 3.53 10*6/uL Low 4.6-6.2 [facility] Comment on above: Performed By: #### L 100.0100, L501.2450, L500.4050 #### [facility] [address] [place], [address] RDW SD 56.7 fl High 35.1-43.9 [facility] Comment on above: Performed By: #### L 100.0100, L501.2450, L500.4050 #### [facility] [address] [place], [address] WBC (Bld) [#/Vol] 5.3 10*3/uL Normal 4.4-11.0 [facility] Comment on above: Performed By: #### L 100.0100, L501.2450, L500.4050 #### [facility] [address] [place], [place], [address] COVID 19 AG RAPID (RN COLLETigre T)on 10-21-2024 SARS-CoV-2 (COVID-19) RNA LOGAN+probe Ql (Unsp spec) *Negative results from patients with symptom onset beyond five days should be treated as presumptive and confirmed by a molecular assay if clinically necessary. Negative results should not be used as the sole basis for treatment or for patient management. SARS-CoV-2 Ag Resp Ql IA.rapid *Positive results do not differentiate between SARS-CoV and SARS-CoV-2. If differentiation of the specific SARS virus is desired an additional sample and an additional order is required. SARS-CoV-2 Ag Resp Ql IA.rapid * This test has not been FDA cleared or approved; the test has been authorized by FDA under an Emergency Use Authorization (EAU) for use by laboratories certified under CLIA that meet the requirements to perform moderate, high, or waived complexity tests. SARS-CoV-2 Ag Resp Ql IA.rapid Normal Reference Range: Negative SARS-CoV-2 (COVID 19) Negative RAPID METHOD [employer] COVID19 Ag Card Normal [facility] Comment on above: Performed By: #### L 100.0100, L501.2450, L500.4050 #### [facility] [address] [place], [address] COVID-19 virus antigen assay Ordered By: Norris Olmedo on 10-21-2024 SARS-CoV-2 (COVID-19) Ag IA.rapid Ql (Resp) [facility] Carbon dioxide, total [Moles /volume] in Central venous bloodOrdered By: Norris Olmedo on 10-21-2024 CO2 [Moles/Vol] 22.1 mmol/L 21.0-32.0 [facility] Chloride assayOrdered By: Garcia Olmedo on 10-21-2024 Chloride [Moles/Vol] 106 mmol/L 98-108 [facility] Eosinophil percentageOrdered By: Norris Olmedo on 10-21-2024 Eosinophils/100 WBC (Bld) 2.7 % 0-5 [facility] Erythrocyte distribution wid th ratioOrdered By: Norris Olmedo on 10-21-2024 Erythrocyte distribution width (RBC) [Ratio] 17.1 % High 11.6-14.6 [facility] Erythrocyte distribution wid th standard deviationOrdered By: Norris Olmedo on 10-21-2024 Erythrocyte distribution width (RBC) [Ratio] 56.7 fl High 35.1-43.9 [facility] Glomerular filtration rate ( GFR) estimation/1.73 sq m using serum, plasma, or whole bOrdered By: Norris Olmedo 10-21-2024 GFR/1.73 sq M.predicted among non-blacks MDRD (S/P/Bld) [Vol rate/Area] 87 mL/min/{1.73_m2} >60 [facility] Comment on above: mL/min/1.73m2 CKD-EP I Creatinine Equation (2020) Hematocrit Auto (Bld) [Volum e fraction]Ordered By: Norris Olmedo 10-21-2024 Hematocrit (Bld) [Volume fraction] 32.5 % Low 40-54 [facility] Hemoglobin measurementOrdere d By: Norris Olmedo 10-21-2024 Hemoglobin (Bld) [Mass/Vol] 10.3 g/dL Low 13.0-16.5 [facility] Immature granulocytes/100 WB C Auto (Bld)Ordered By: Norris Olmedo 10-21-2024 Immature granulocytes/100 WBC (Bld) 4.000 % High 0.0-0.9 [facility] Comment on above: IG% - Immature Granu locytes (promyelocytes, myelocytes and metamyelocytes) > 1% indicates that a LEFT SHIFT is Present. MCV (mean corpuscular volume ) determinationOrdered By: Norris Olmedo 10-21-2024 MCV (RBC) [Entitic vol] 92.1 fL 80-94 [facility] Mean corpuscular hemoglobin (MCH) determinationOrdered By: Norris Olmedo 10-21-2024 MCH (RBC) [Entitic mass] 29.2 pg 27.0-32.0 [facility] Mean corpuscular hemoglobin concentration (MCHC) determinationOrdered By: Norris Olmedo 10-21-2024 MCHC (RBC) [Mass/Vol] 31.7 g/dL Low 32-36 [facility] Mean platelet volume determi nationOrdered By: Norris Olmedo 10-21-2024 Platelet mean volume (Bld) [Entitic vol] 8.6 fL 6.2-12.0 [facility] Monocyte percentageOrdered B y: Norris Olmedo on 10-21-2024 Monocytes/100 WBC (Bld) 10.0 % 0-10 [facility] Neutrophil percentageOrdered By: Norris Olmedo on 10-21-2024 Neutrophils/100 WBC (Bld) 60.9 % 47-70 [facility] Nucleated red blood cell per centageOrdered By: Norris Olmedo on 10-21-2024 Nucleated RBC/100 WBC (Bld) [Ratio] 0 % 0-5 [facility] Platelet countOrdered By: Garcia Olmedo on 10-21-2024 Platelets (Bld) [#/Vol] 244 10*3/uL 150-450 [facility] Potassium measurement (mass/ volume)Ordered By: Norris Olmedo on 10-21-2024 Potassium (Unsp spec) [Mass/Vol] 3.4 mmol/L 3.3-5.1 [facility] RBC Auto (Bld) [#/Vol]Ordere d By: Norris Olmedo on 10-21-2024 RBC (Bld) [#/Vol] 3.53 10*6/uL Low 4.6-6.2 [facility] Serum creatinine measurement (mass/volume)Ordered By: Norris Olmedo on 10-21-2024 Creatinine [Mass/Vol] 0.92 mg/dL 0.70-1.20 [facility] Serum glucose measurement (m ass/volume)Ordered By: Norris Olmedo on 10-21-2024 Glucose [Mass/Vol] 90 mg/dL 70-99 [facility] Serum or plasma calcium lida urement (mass/volume)Ordered By: Norris Olmedo on 10-21-2024 Calcium [Mass/Vol] 7.9 mg/dL 7.6-11.0 [facility] Serum or plasma urea nitroge n measurement (mass/volume)Ordered By: Norris Olmedo on 10-21-2024 Urea nitrogen [Mass/Vol] 12 mg/dL 4-19 [facility] Sodium levelOrdered By: Norris Olmedo 10-21-2024 Sodium [Moles/Vol] 138 mmol/L 133-145 [facility] White blood cell (WBC) count Ordered By: Norris Olmedo on 10-21-2024 WBC (Bld) [#/Vol] 5.3 10*3/uL 4.4-11.0 [facility] Urine Cultureon 10-19-2024 URC Below infection level. Mixed Gram Pos Gram Neg Org [place] Count 1000-10,000 MIXC Mixed contaminants. Submit a new specimen if indicated. Normal [facility] Comment on above: Performed By: #### L 100.0100, L501.2450, L500.4050 #### [facility] [address] [place], [address] Abdomen Single Viewon 2024 Abdomen Single View [facility] [address] [place] [address] Abdomen Single View MR#: [id number] Acct: [id number] Name: OLI DE LA FUENTE JrRanjan Rep #: [id number] : 1950 M 73 From: Galen Schrader MD PCP: Dr. Ashlee Lanier MD Status: ADM IN Study: Abdomen Single View Date of Exam: 10/17/24 Exam# [id number] Ordering Dr: Norris Olmedo MD PROCEDURE: ABDOMEN SINGLE VIEW 10/17/2024 REASON FOR EXAM: ILEUS TECHNIQUE: ABDOMEN SINGLE VIEW COMPARISON: 10/14/2024 CT. 10/15/2024 radiograph. FINDINGS: Dilated loops of bowel throughout the abdomen which may represent ileus or obstruction. No subdiaphragmatic free air. Aorto bi-iliac stent grafts. RAD/Abdomen Single View IMPRESSION: Diffusely dilated loops of small bowel which may represent ileus versus obstruction. Reading Location: [id number] CC: Dr. Ashlee Lanier MD; Dr. Norris Olmedo MD Therapeutic Strategy Lead: Signed Normal [facility] Abdomen/Pelvis W IV Cont ONL Yon 10-17-2024 Abdomen/Pelvis W IV Cont ONLY [facility] [address] [place], [place] [id number] Abdomen/Pelvis W IV Cont ONLY MR#: [id number] Acct: [id number] Name: OLI DE LA FUENTE Jr. Rep #: [id number] : 1950 M 73 From: Guilherme Carranza MD PCP: Dr. Ashlee Lanier MD Status: REG ER Study: Abdomen/Pelvis W IV Cont ONLY Date of Exam: Exam# [id number] Ordering Dr: Poncho Lira DO PROCEDURE: CT ABDOMEN/PELVIS W IV CONT ONLY 10/17/2024 REASON FOR EXAM: ABDOMINAL PAIN TECHNIQUE: CT ABDOMEN/PELVIS W IV CONT ONLY Coronal and Sagittal reconstruction series were provided. CONTRAST: Isovue 370 VOLUME: 89 mL One or more dose reduction techniques were used (e.g., Automated exposure control, adjustment of the mA and/or kV according to patient size, use of iterative reconstruction technique. RADIATION DOSE SUMMARY: DLP: 1284.5 mGycm COMPARISON: CTA abdomen/pelvis 10/14/2024. FINDINGS: Since 10/14/2024, no significant interval change in the findings of a ruptured infrarenal abdominal aortic aneurysm with a large heterogeneous hematoma collection in the left lower abdominal quadrant/retroperiton eum. Somewhat heterogeneous blood products within the ruptured aneurysm sac and hematoma collection, but no evidence for active arterial contrast extravasation. Prior endovascular stent graft repair which traverses the ruptured aneurysm sac without evidence for active leakage. Patchy areas of dense consolidation in the imaged right posterior lung base likely reflecting pneumonia, similar to prior exam as visualized. Trace bibasilar pleural effusions. Hepatic steatosis. Unremarkable gallbladder. No biliary ductal dilatation. Normal sized spleen. Unremarkable pancreas. Normal adrenal glands. Kidneys are normal in size with symmetric enhancement. No hydronephrosis. Multifocal cortical scarring and/or tiny simple appearing renal cysts. Urinary bladder is irregularly thickened with innumerable bladder wall diverticuli suggestive of chronic infection or neurogenic bladder. Prostate is mildly enlarged and heterogeneous. No evidence of bowel obstruction. Appendix is not definitively identified but there are no pericecal inflammatory changes appreciated. Distal colonic diverticulosis. Wall thickening versus underdistention of the distal rectosigmoid colon may represent colitis. No enlarged abdominopelvic lymph nodes appreciated. No pneumoperitoneum. No acute or aggressive osseous abnormality. Multilevel degenerative changes of the spine. Qualitative osteopenia. Mild generalized subcutaneous edema along the flanks. CT/Abdomen/Pelvis W IV Cont ONLY IMPRESSION: 1. Since 10/14/2024, no significant change in the ruptured infrarenal abdominal aortic aneurysm sac previously repaired with endovascular stent graft, with large left lower quadrant/retroperiton eal hematoma collection. No evidence for active arterial contrast extravasation. Recommend vascular surgery consult if not already obtained. 2. Patchy airspace consolidation in the right lung base, may represent pneumonia. Trace bibasilar pleural effusions. 3. Wall thickening versus underdistention of the rectosigmoid colon may represent colitis. 4. Marked irregular bladder wall thickening with numerous diverticuli, likely sequelae of either chronic infection or neurogenic bladder. Reading Location: [facility] CC: Dr. Poncho Lira DO; Dr. Ashlee Lanier MD Therapeutic Strategy Lead: Signed Normal [facility] Absolute lymphocyte countOrd ered By: Poncho Lira on 10-17-2024 Lymphocytes Auto (Unsp spec) [#/Vol] 0.62 10*3/uL Low 0.83-4.51 [facility] Absolute neutrophil countOrd ered By: Poncho Lira on 10-17-2024 Neutrophils (Bld) [#/Vol] 6.8 10*3/uL 2.0-7.7 [facility] Amorphous sediment detection in urine sediment by light microscopyOrdered By: Poncho Lira on 10-17-2024 Amorphous sediment LM Ql (Urine sed) 1+ [facility] Anion gap in Serum or Plasma Ordered By: Poncho Lira on 10-17-2024 Anion gap [Moles/Vol] 11 mmol/L 5-15 [facility] Automated lymphocyte count a s percentage of total leukocytesOrdered By: Poncho Lira on 10-17-2024 Lymphocytes/100 WBC Auto (Unsp spec) 7.7 % Low 19-41 [facility] BUN/creatinine ratioOrdered By: Poncho Lira on 10-17-2024 Urea nitrogen/Creatinine [Mass ratio] 21.3 mg/mg High 10-20 [facility] Basophil percentageOrdered B y: Poncho Lira on 10-17-2024 Basophils/100 WBC (Bld) 0.1 % 0-1 [facility] Bilirubin Test strip Ql (U)O rdered By: Poncho Lira on 10-17-2024 Bilirubin Ql (U) Negative Negative [facility] Bilirubin, totalOrdered By: Poncho Lira on 10-17-2024 Bilirubin [Mass/Vol] 1.27 mg/dL 0.00-1.30 [facility] CBC W/Diff, Automatedon 10-01 Absolute Lymph 0.62 X10 3/uL Low 0.83-4.51 [facility] Comment on above: Performed By: #### L 100.0100, L501.2450, L500.4050 #### [facility] [address] [place], [address] Absolute Neut 6.8 X10 3/uL Normal 2.0-7.7 [facility] Comment on above: Performed By: #### L 100.0100, L501.2450, L500.4050 #### [facility] [address] [place], [address] Basophils/100 WBC (Bld) 0.1 % Normal 0-1 [facility] Comment on above: Performed By: #### L 100.0100, L501.2450, L500.4050 #### [facility] [address] [place], [address] Eosinophils/100 WBC (Bld) 1.2 % Normal 0-5 [facility] Comment on above: Performed By: #### L 100.0100, L501.2450, L500.4050 #### [facility] [address] [place], [address] Erythrocyte distribution width (RBC) [Ratio] 16.4 % High 11.6-14.6 [facility] Comment on above: Performed By: #### L 100.0100, L501.2450, L500.4050 #### [facility] [address] [place], [address] Hematocrit (Bld) [Volume fraction] 31.7 % Low 40-54 [facility] Comment on above: Performed By: #### L 100.0100, L501.2450, L500.4050 #### [facility] [address] [place], [address] Hemoglobin (Bld) [Mass/Vol] 9.8 g/dL Low 13.0-16.5 [facility] Comment on above: Performed By: #### L 100.0100, L501.2450, L500.4050 #### [facility] [address] [place], [address] IG% 0.900 Normal 0.0-0.9 [facility] Comment on above: Result Comment: IG% - Immature Granulocytes (promyelocytes, myelocytes and metamyelocytes) > 1% indicates that a LEFT SHIFT is Present. Performed By: #### L 100.0100, L501.2450, L500.4050 #### [facility] [address] [place], [address] Lymphocytes/100 WBC (Bld) 7.7 % Low 19-41 [facility] Comment on above: Performed By: #### L 100.0100, L501.2450, L500.4050 #### [facility] [address] [place], [address] MCH (RBC) [Entitic mass] 28.7 pg Normal 27.0-32.0 [facility] Comment on above: Performed By: #### L 100.0100, L501.2450, L500.4050 #### [facility] [address] [place], [address] MCHC (RBC) [Mass/Vol] 30.9 g/dL Low 32-36 [facility] Comment on above: Performed By: #### L 100.0100, L501.2450, L500.4050 #### [facility] [address] [place], [address] MCV (RBC) [Entitic vol] 93.0 fL Normal 80-94 [facility] Comment on above: Performed By: #### L 100.0100, L501.2450, L500.4050 #### [facility] [address] [place], [address] Monocytes/100 WBC (Bld) 6.6 % Normal 0-10 [facility] Comment on above: Performed By: #### L 100.0100, L501.2450, L500.4050 #### [facility] [address] [place], [address] Neutrophils/100 WBC (Bld) 83.5 % High 47-70 [facility] Comment on above: Performed By: #### L 100.0100, L501.2450, L500.4050 #### [facility] [address] [place], [address] Nucleated RBC (Bld) [#/Vol] 0 10*3/uL Normal 0-5 [facility] Comment on above: Performed By: #### L 100.0100, L501.2450, L500.4050 #### [facility] [address] [place], [address] Platelet mean volume (Bld) [Entitic vol] 8.7 fL Normal 6.2-12.0 [facility] Comment on above: Performed By: #### L 100.0100, L501.2450, L500.4050 #### [facility] [address] [place], [address] Platelets (Bld) [#/Vol] 320 10*3/uL Normal 150-450 [facility] Comment on above: Performed By: #### L 100.0100, L501.2450, L500.4050 #### [facility] [address] [place], [address] RBC (Bld) [#/Vol] 3.41 10*6/uL Low 4.6-6.2 [facility] Comment on above: Performed By: #### L 100.0100, L501.2450, L500.4050 #### [facility] [address] [place], [address] RDW SD 55.7 fl High 35.1-43.9 [facility] Comment on above: Performed By: #### L 100.0100, L501.2450, L500.4050 #### [facility] [address] [place], [address] WBC (Bld) [#/Vol] 8.1 10*3/uL Normal 4.4-11.0 [facility] Comment on above: Performed By: #### L 100.0100, L501.2450, L500.4050 #### [facility] [address] [place], [address] Carbon dioxide, total [Moles /volume] in Central venous bloodOrdered By: Poncho Lira on 10-17-2024 CO2 [Moles/Vol] 21.7 mmol/L 21.0-32.0 [facility] Chloride assayOrdered By: Vishnu Lira on 10-17-2024 Chloride [Moles/Vol] 107 mmol/L 98-108 [facility] Comprehensive Metabolic Prof ilon 10-17-2024 Albumin [Mass/Vol] 3.0 g/dL Low 3.4-4.8 [facility] Comment on above: Performed By: #### L 100.0100, L501.2450, L500.4050 #### [facility] [address] [place], [address] Albumin/Globulin [Mass ratio] 1.1 {ratio} Normal 0.9-2.4 [facility] Comment on above: Performed By: #### L 100.0100, L501.2450, L500.4050 #### [facility] [address] [place], [address] ALK PHOS 85 U/L Normal 40-129 [facility] Comment on above: Performed By: #### L 100.0100, L501.2450, L500.4050 #### [facility] [address] [place], [address] ALT [Catalytic activity/Vol] 63 U/L High <=46 [facility] Comment on above: Performed By: #### L 100.0100, L501.2450, L500.4050 #### [facility] [address] [place], [address] AST [Catalytic activity/Vol] 82 U/L High <=37 [facility] Comment on above: Performed By: #### L 100.0100, L501.2450, L500.4050 #### [facility] [address] [place], [address] Bilirubin [Mass/Vol] 1.27 mg/dL Normal 0.00-1.30 [facility] Comment on above: Performed By: #### L 100.0100, L501.2450, L500.4050 #### [facility] [address] [place], [address] BUN/CRE 21.3 RATIO High 10-20 [facility] Comment on above: Performed By: #### L 100.0100, L501.2450, L500.4050 #### [facility] [address] [place], [address] Calcium [Mass/Vol] 8.6 mg/dL Normal 7.6-11.0 [facility] Comment on above: Performed By: #### L 100.0100, L501.2450, L500.4050 #### [facility] [address] [place], [address] Chloride [Moles/Vol] 107 mmol/L Normal 98-108 [facility] Comment on above: Performed By: #### L 100.0100, L501.2450, L500.4050 #### [facility] [address] [place], [address] CO2 [Moles/Vol] 21.7 mmol/L Normal 21.0-32.0 [facility] Comment on above: Performed By: #### L 100.0100, L501.2450, L500.4050 #### [facility] [address] [place], [address] Creatinine [Mass/Vol] 0.94 mg/dL Normal 0.70-1.20 [facility] Comment on above: Performed By: #### L 100.0100, L501.2450, L500.4050 #### [facility] [address] [place], [address] ECRCL 76.74 ml/min Normal 50-250 [facility] Comment on above: Performed By: #### L 100.0100, L501.2450, L500.4050 #### [facility] [address] [place], [address] GAP 11 Normal 5-15 [facility] Comment on above: Performed By: #### L 100.0100, L501.2450, L500.4050 #### [facility] [address] [place], [address] GFR/1.73 sq M.predicted among non-blacks MDRD (S/P/Bld) [Vol rate/Area] 84 mL/min/{1.73_m2} Normal >60 [facility] Comment on above: Result Comment: mL/m in/1.73m2 CKD-EPI Creatinine Equation (2020) Performed By: #### L 100.0100, L501.2450, L500.4050 #### [facility] [address] [place], [address] Globulin (S) [Mass/Vol] 2.7 g/dL Normal 2.2-4.2 [facility] Comment on above: Performed By: #### L 100.0100, L501.2450, L500.4050 #### [facility] [address] [place], [address] Glucose [Mass/Vol] 91 mg/dL Normal 70-99 [facility] Comment on above: Performed By: #### L 100.0100, L501.2450, L500.4050 #### [facility] [address] [place], [address] Potassium [Moles/Vol] 4.0 mmol/L Normal 3.3-5.1 [facility] Comment on above: Performed By: #### L 100.0100, L501.2450, L500.4050 #### [facility] [address] [place], [address] Sodium [Moles/Vol] 139 mmol/L Normal 133-145 [facility] Comment on above: Performed By: #### L 100.0100, L501.2450, L500.4050 #### [facility] [address] [place], [address] T PROT 5.7 g/dL Low 5.9-8.4 [facility] Comment on above: Performed By: #### L 100.0100, L501.2450, L500.4050 #### [facility] [address] [place], [address] Urea nitrogen [Mass/Vol] 20 mg/dL High 4-19 [facility] Comment on above: Performed By: #### L 100.0100, L501.2450, L500.4050 #### [facility] [address] [place], [address] Emergency Department Summary on 10-17-2024 Emergency Department Summary [facility] Medical Records Department [address] [place] [address] Emergency Department Summary 10/17/24 MR#: [id number] Acct: [id number] Name: OLI DE LA FUENTE Jr. Rep #: [id number] : 1950 73 From: Poncho Lira DO PCP: Dr. Ashlee Lanier MD Status:DEP ER Location: ED HPI HPI - GI History of Present Illness Chief Complaint: Constipation Informant: patient and family Abdominal Pain/Flank Pain Context: Gradual Onset Timing: Continuous Location: Diffuse Worsened by: Nothing Relieved by: Nothing Nausea/Vomiting/Emesi s GI Symptom: Negative for Nausea or Vomiting Diarrhea/Melena/Hemat ochezia GI Symptom: Negative for Diarrhea, Melena or Hematochezia Associated Symptoms Associated Symptoms: Negative for Dysuria, Frequency or Hematuria Narrative Narrative: Patient presents with possible ileus versus bowel obstruction that has been getting progressively worse. Patient had recent abdominal aortic aneurysm repair at [facility]. Patient had a ruptured abdominal aortic aneurysm that was repaired with an endovascular graft. Patient was then transferred to the TCU here at [place] for rehab. Family states the patient has been constipated. Family states patient has been able to have bowel movements with laxatives. Family states that patient's bowel movements have been watery. Patient denies any melena or hematochezia. Patient denies any fevers or chills. [facility] Medical History Cellulitis of right lower extremity [...] mL) subcut Q4W #2 mL Unknown Rx subcutaneous auto-injector (Xolair) budesonide 1 mg/2 mL suspension 1 mg (2 mL) inhalation BID COPD Unknown Rx for nebulization #60 mL bisacodyl 5 mg tablet,delayed 10 mg PO DAILY PRN constipation Unknown History release (Dulcolax (bisacodyl)) clopidogrel 75 mg tablet (Plavix) 75 mg PO DAILY blood thinner 10/01 05/25 Unknown History ipratropium 0.5 mg-albuterol 3 mg 3 ml inhalation Q6H PRN wheezing 10/13/24 Unknown History (2.5 mg base)/3 mL nebulization soln metoprolol succinate 50 mg 50 mg PO DAILY blood pressure 10/01 05/25 Unknown History tablet,extended release 24 hr pantoprazole 40 mg tablet,delayed 40 mg PO DAILY stomach acid 10/13 Unknown History release potassium chloride 20 mEq 20 meq PO DAILY supplement 5 Unknown History tablet,extended release(part/cryst) prednisone 10 mg tablet 5 mg PO DAILY COPD 10/13/24 Unknow n History tamsulosin 0.4 mg capsule (Flomax) 0.4 mg PO DAILY prostate 5 Unknown History Allergy/AdvReac Type Severity Reaction Status Date / Time Seasonal Allergies: Uncoded Allergy Congestion Verified (more content not included)... Normal [facility] Eosinophil percentageOrdered By: Poncho Lira on 10-17-2024 Eosinophils/100 WBC (Bld) 1.2 % 0-5 [facility] Erythrocyte distribution wid th ratioOrdered By: Poncho Lira on 10-17-2024 Erythrocyte distribution width (RBC) [Ratio] 16.4 % High 11.6-14.6 [facility] Erythrocyte distribution wid th standard deviationOrdered By: Poncho Lira on 10-17-2024 Erythrocyte distribution width (RBC) [Ratio] 55.7 fl High 35.1-43.9 [facility] Glomerular filtration rate ( GFR) estimation/1.73 sq m using serum, plasma, or whole bOrdered By: Poncho Lira on 10-17-2024 GFR/1.73 sq M.predicted among non-blacks MDRD (S/P/Bld) [Vol rate/Area] 84 mL/min/{1.73_m2} >60 [facility] Comment on above: mL/min/1.73m2 CKD-EP I Creatinine Equation (2020) Hematocrit Auto (Bld) [Volum e fraction]Ordered By: Poncho Lira on 10-17-2024 Hematocrit (Bld) [Volume fraction] 31.7 % Low 40-54 [facility] Hemoglobin measurementOrdere d By: Poncho Lira on 10-17-2024 Hemoglobin (Bld) [Mass/Vol] 9.8 g/dL Low 13.0-16.5 [facility] Immature granulocytes/100 WB C Auto (Bld)Ordered By: Poncho Lira on 10-17-2024 Immature granulocytes/100 WBC (Bld) 0.900 % 0.0-0.9 [facility] Comment on above: IG% - Immature Granu locytes (promyelocytes, myelocytes and metamyelocytes) > 1% indicates that a LEFT SHIFT is Present. Ketones Test strip Ql (U)Ord ered By: Poncho Lira on 10-17-2024 Ketones Ql (U) Negative Negative [facility] Laboratory - Chemistry and C hemistry - challengeOrdered By: Poncho Lira on 10-17-2024 AST [Catalytic activity/Vol] 82 U/L High <38 [facility] Lactic Acidon 10-17-2024 Lactate [Moles/Vol] mmol/L Normal 0.0-2.0 [facility] Comment on above: Order Comment: Y Performed By: #### L 503.6005 #### [facility] [address] [place], [address] Lactic acid measurementOrder ed By: Poncho Lira on 10-17-2024 Lactate [Moles/Vol] mmol/L 0.0-2.0 [facility] Lipaseon 10-17-2024 Lipase [Catalytic activity/Vol] 182 U/L High 13-75 [facility] Comment on above: Result Comment: Plea note: LIPASE revised reference range effective 22. New Lipase methodology. Expected to produce lower values than the previous assay method. NEW Reference Range: 13 - 75 U/L Performed By: #### L 100.0100, L501.2450, L500.4050 #### [facility] [address] [place], [place], [id number] Lipase measurementOrdered By : Poncho Lira on 10-17-2024 Lipase [Catalytic activity/Vol] 182 U/L High 13-75 [facility] Comment on above: Please note:LIPASE r evised reference range effective 22. New Lipase methodology. Expected to produce lower values than the previous assay method. NEW Reference Range: 13 - 75 U/L MCV (mean corpuscular volume ) determinationOrdered By: Poncho Lira on 10-17-2024 MCV (RBC) [Entitic vol] 93.0 fL 80-94 [facility] Mean corpuscular hemoglobin (MCH) determinationOrdered By: Poncho Lira on 10-17-2024 MCH (RBC) [Entitic mass] 28.7 pg 27.0-32.0 [facility] Mean corpuscular hemoglobin concentration (MCHC) determinationOrdered By: Poncho Lira on 10-17-2024 MCHC (RBC) [Mass/Vol] 30.9 g/dL Low 32-36 [facility] Mean platelet volume determi nationOrdered By: Poncho Lira on 10-17-2024 Platelet mean volume (Bld) [Entitic vol] 8.7 fL 6.2-12.0 [facility] Microscopic analysis of urin e for red blood cells (RBC)Ordered By: Poncho Lira on 10-17-2024 Microscopic analysis of urine for red blood cells (RBC) 10-25 SEEN /hpf 0-5 [facility] Monocyte percentageOrdered B y: Poncho Lira on 10-17-2024 Monocytes/100 WBC (Bld) 6.6 % 0-10 [facility] Mucus LM Ql (Urine sed)Order ed By: Poncho Lira on 10-17-2024 Mucus Ql (Urine sed) 0 SEEN /hpf [facility] Neutrophil percentageOrdered By: Poncho Lira on 10-17-2024 Neutrophils/100 WBC (Bld) 83.5 % High 47-70 [facility] Nitrite Test strip Ql (U)Ord ered By: Poncho Lira on 10-17-2024 Nitrite Ql (U) Negative Negative [facility] Nucleated red blood cell per centageOrdered By: Poncho Lira on 10-17-2024 Nucleated RBC/100 WBC (Bld) [Ratio] 0 % 0-5 [facility] Platelet countOrdered By: Vishnu Lira on 10-17-2024 Platelets (Bld) [#/Vol] 320 10*3/uL 150-450 [facility] Potassium measurement (mass/ volume)Ordered By: Poncho Lira on 10-17-2024 Potassium (Unsp spec) [Mass/Vol] 4.0 mmol/L 3.3-5.1 [facility] Protein Test strip Ql (U)Ord ered By: Poncho Lira on 10-17-2024 Protein Ql (U) 30 mg/dl High Negative [facility] RBC Auto (Bld) [#/Vol]Ordere d By: Poncho Lira on 10-17-2024 RBC (Bld) [#/Vol] 3.41 10*6/uL Low 4.6-6.2 [facility] Serum creatinine measurement (mass/volume)Ordered By: Poncho Lira on 10-17-2024 Creatinine [Mass/Vol] 0.94 mg/dL 0.70-1.20 [facility] Serum globulin measurementOr dered By: Poncho Lira on 10-17-2024 Globulin (S) [Mass/Vol] 2.7 g/dL 2.2-4.2 [facility] Serum glucose measurement (m ass/volume)Ordered By: Poncho Lira on 10-17-2024 Glucose [Mass/Vol] 91 mg/dL 70-99 [facility] Serum or plasma alanine malloy otransferase (ALT) measurementOrdered By: Poncho Lira on 10-17-2024 ALT [Catalytic activity/Vol] 63 U/L High <47 [facility] Serum or plasma albumin lida urement (mass/volume)Ordered By: Poncho Lira on 10-17-2024 Albumin [Mass/Vol] 3.0 g/dL Low 3.4-4.8 [facility] Serum or plasma albumin/glob ulin mass ratioOrdered By: Poncho Lira 10-17-2024 Albumin/Globulin [Mass ratio] 1.1 {ratio} 0.9-2.4 [facility] Serum or plasma alkaline ramin sphatase measurementOrdered By: Poncho Lira on 10-17-2024 ALP [Catalytic activity/Vol] 85 U/L 40-129 [facility] Serum or plasma calcium lida urement (mass/volume)Ordered By: Poncho Lira on 10-17-2024 Calcium [Mass/Vol] 8.6 mg/dL 7.6-11.0 [facility] Serum or plasma urea nitroge n measurement (mass/volume)Ordered By: Poncho Lira on 10-17-2024 Urea nitrogen [Mass/Vol] 20 mg/dL High 4-19 [facility] Sodium levelOrdered By: Poncho Lira on 10-17-2024 Sodium [Moles/Vol] 139 mmol/L 133-145 [facility] Squamous epithelial cells de tection in urine sediment by light microscopyOrdered By: Poncho Lira on 10-17-2024 Epithelial cells.squamous LM Ql (Urine sed) 0-5 SEEN /hpf 0-5 [facility] Total proteinOrdered By: oSnia Lira on 10-17-2024 Protein [Mass/Vol] 5.7 g/dL Low 5.9-8.4 [facility] Urinalysis, Completeon 10-17 AMORPHOUS 1+ Normal [facility] Comment on above: Order Comment: CLEAN CATCH Performed By: #### L 100.0100, L501.2450, L500.4050 #### [facility] [address] [place], [address] BACTERIA 3+ /hpf Normal None Seen [facility] Comment on above: Order Comment: CLEAN CATCH Performed By: #### L 100.0100, L501.2450, L500.4050 #### [facility] [address] [place], [address] EPI,RENAL 0-5 SEEN Normal 0-5 [facility] Comment on above: Order Comment: CLEAN CATCH Performed By: #### L 100.0100, L501.2450, L500.4050 #### [facility] [address] [place], [address] EPI,SQUAMOUS 0-5 SEEN Normal 0-5 [facility] Comment on above: Order Comment: CLEAN CATCH Performed By: #### L 100.0100, L501.2450, L500.4050 #### [facility] [address] [place], [address] RBC 10-25 SEEN Normal 0-5 [facility] Comment on above: Order Comment: CLEAN CATCH Performed By: #### L 100.0100, L501.2450, L500.4050 #### [facility] [address] [place], [address] WBC 50-100 SEEN Normal 0-5 [facility] Comment on above: Order Comment: CLEAN CATCH Performed By: #### L 100.0100, L501.2450, L500.4050 #### [facility] [address] [place], [address] Mucus Ql (Urine sed) 0 SEEN Normal [facility] Comment on above: Order Comment: CLEAN CATCH Performed By: #### L 100.0100, L501.2450, L500.4050 #### [facility] [address] [place], [address] Urine clarityOrdered By: Sonia Lira on 10-17-2024 Clarity (U) Cloudy Clear [facility] Urine color determinationOrd ered By: Poncho Lira on 10-17-2024 Color (U) Yellow Yellow [facility] Urine cultureOrdered By: Sonia Lira on 10-17-2024 Bacteria identified Cx Nom (U) Mixed Gram Pos & Gram Neg Org Abnormal [facility] Urine glucose detectionOrder ed By: Poncho Lira on 10-17-2024 Glucose Ql (U) Normal mg/dl Normal [facility] Urine leukocyte esterase det ection by dipstickOrdered By: Poncho Lira on 10-17-2024 Leukocyte esterase Test strip Ql (U) 500 /ul High Negative [facility] Urine pHOrdered By: Poncho gerber on 10-17-2024 pH (U) 6.0 [pH] 5.0 - 8.0 [facility] Urine sediment bacteria coun t by microscopy (number/high power field)Ordered By: Poncho Lira on 10-17-2024 Bacteria LM.HPF (Urine sed) [#/Area] 3 /[HPF] None Seen [facility] Urine sediment renal epithel ial cell count by microscopy (number/high power field)Ordered By: Poncho Lira on 10-17-2024 Epithelial cells.renal LM.HPF (Urine sed) [#/Area] 0 /[HPF] 0-5 [facility] Urine specific gravity measu rementOrdered By: Poncho Lira on 10-17-2024 Specific gravity (U) [Rel density] 1.020 1.002-1.030 [facility] Urine urobilinogen measureme ntOrdered By: Poncho Lira on 10-17-2024 Urobilinogen Ql (U) Normal mg/dl Normal [facility] White blood cell (WBC) count Ordered By: Poncho Lira on 10-17-2024 WBC (Bld) [#/Vol] 8.1 10*3/uL 4.4-11.0 [facility] White blood cell countOrdere d By: Poncho Lira on 10-17-2024 White blood cell count 50-100 SEEN /hpf 0-5 [facility] Absolute lymphocyte countOrd ered By: Norris Olmedo on 10-16-2024 Lymphocytes Auto (Unsp spec) [#/Vol] 0.80 10*3/uL Low 0.83-4.51 [facility] Absolute neutrophil countOrd ered By: Norris Olmedo on 10-16-2024 Neutrophils (Bld) [#/Vol] 13.5 10*3/uL High 2.0-7.7 [facility] Anion gap in Serum or Plasma Ordered By: Norris Olmedo on 10-16-2024 Anion gap [Moles/Vol] 10 mmol/L 5-15 [facility] Automated lymphocyte count a s percentage of total leukocytesOrdered By: Norris Olmedo on 10-16-2024 Lymphocytes/100 WBC Auto (Unsp spec) 5.2 % Low 19-41 [facility] BUN/creatinine ratioOrdered By: Norris Olmedo on 10-16-2024 Urea nitrogen/Creatinine [Mass ratio] 23.4 mg/mg High 10-20 [facility] Basic Metabolic Profile (BMP )on 10-16-2024 BUN/CRE 23.4 RATIO High 10-20 [facility] Comment on above: Performed By: #### L 100.0100, L500.2500 #### [facility] [address] [place], [address] Calcium [Mass/Vol] 8.4 mg/dL Normal 7.6-11.0 [facility] Comment on above: Performed By: #### L 100.0100, L500.2500 #### [facility] [address] [place], [address] Chloride [Moles/Vol] 105 mmol/L Normal 98-108 [facility] Comment on above: Performed By: #### L 100.0100, L500.2500 #### [facility] [address] [place], [address] CO2 [Moles/Vol] 21.5 mmol/L Normal 21.0-32.0 [facility] Comment on above: Performed By: #### L 100.0100, L500.2500 #### [facility] [address] [place], [address] Creatinine [Mass/Vol] 1.03 mg/dL Normal 0.70-1.20 [facility] Comment on above: Performed By: #### L 100.0100, L500.2500 #### [facility] [address] [place], [address] ECRCL 70.03 ml/min Normal 50-250 [facility] Comment on above: Performed By: #### L 100.0100, L500.2500 #### [facility] [address] [place], [address] GAP 10 Normal 5-15 [facility] Comment on above: Performed By: #### L 100.0100, L500.2500 #### [facility] [address] [place], [address] GFR/1.73 sq M.predicted among non-blacks MDRD (S/P/Bld) [Vol rate/Area] 76 mL/min/{1.73_m2} Normal >60 [facility] Comment on above: Result Comment: mL/m in/1.73m2 CKD-EPI Creatinine Equation (2020) Performed By: #### L 100.0100, L500.2500 #### [facility] [address] [place], [address] Glucose [Mass/Vol] 104 mg/dL High 70-99 [facility] Comment on above: Performed By: #### L 100.0100, L500.2500 #### [facility] [address] [place], [address] Potassium [Moles/Vol] 4.1 mmol/L Normal 3.3-5.1 [facility] Comment on above: Performed By: #### L 100.0100, L500.2500 #### [facility] [address] [place], [address] Sodium [Moles/Vol] 137 mmol/L Normal 133-145 [facility] Comment on above: Performed By: #### L 100.0100, L500.2500 #### [facility] [address] [place], [address] Urea nitrogen [Mass/Vol] 24 mg/dL High 4-19 [facility] Comment on above: Performed By: #### L 100.0100, L500.2500 #### [facility] [address] [place], [address] Basophil percentageOrdered B y: Norris Honorio on 10-16-2024 Basophils/100 WBC (Bld) 0.2 % 0-1 [facility] CBC W/Diff, Automatedon 10-01 Absolute Lymph 0.80 X10 3/uL Low 0.83-4.51 [facility] Comment on above: Performed By: #### L 100.0100, L500.2500 #### [facility] [address] [place], [address] Absolute Neut 13.5 X10 3/uL High 2.0-7.7 [facility] Comment on above: Performed By: #### L 100.0100, L500.2500 #### [facility] [address] [place], [address] Basophils/100 WBC (Bld) 0.2 % Normal 0-1 [facility] Comment on above: Performed By: #### L 100.0100, L500.2500 #### [facility] [address] [place], [address] Eosinophils/100 WBC (Bld) 0.2 % Normal 0-5 [facility] Comment on above: Performed By: #### L 100.0100, L500.2500 #### [facility] [address] [place], [address] Erythrocyte distribution width (RBC) [Ratio] 16.6 % High 11.6-14.6 [facility] Comment on above: Performed By: #### L 100.0100, L500.2500 #### [facility] [address] [place], [address] Hematocrit (Bld) [Volume fraction] 29.3 % Low 40-54 [facility] Comment on above: Performed By: #### L 100.0100, L500.2500 #### [facility] [address] [place], [address] Hemoglobin (Bld) [Mass/Vol] 9.3 g/dL Low 13.0-16.5 [facility] Comment on above: Performed By: #### L 100.0100, L500.2500 #### [facility] [address] [place], [address] IG% 0.700 Normal 0.0-0.9 [facility] Comment on above: Result Comment: IG% - Immature Granulocytes (promyelocytes, myelocytes and metamyelocytes) > 1% indicates that a LEFT SHIFT is Present. Performed By: #### L 100.0100, L500.2500 #### [facility] [address] [place], [address] Lymphocytes/100 WBC (Bld) 5.2 % Low 19-41 [facility] Comment on above: Performed By: #### L 100.0100, L500.2500 #### [facility] [address] [place], [address] MCH (RBC) [Entitic mass] 29.2 pg Normal 27.0-32.0 [facility] Comment on above: Performed By: #### L 100.0100, L500.2500 #### [facility] [address] [place], [address] MCHC (RBC) [Mass/Vol] 31.7 g/dL Low 32-36 [facility] Comment on above: Performed By: #### L 100.0100, L500.2500 #### [facility] [address] [place], [address] MCV (RBC) [Entitic vol] 91.8 fL Normal 80-94 [facility] Comment on above: Performed By: #### L 100.0100, L500.2500 #### [facility] [address] [place], [address] Monocytes/100 WBC (Bld) 5.3 % Normal 0-10 [facility] Comment on above: Performed By: #### L 100.0100, L500.2500 #### [facility] [address] [place], [address] Neutrophils/100 WBC (Bld) 88.4 % High 47-70 [facility] Comment on above: Performed By: #### L 100.0100, L500.2500 #### [facility] [address] [place], [address] Nucleated RBC (Bld) [#/Vol] 0 10*3/uL Normal 0-5 [facility] Comment on above: Performed By: #### L 100.0100, L500.2500 #### [facility] [address] [place], [address] Platelet mean volume (Bld) [Entitic vol] 8.9 fL Normal 6.2-12.0 [facility] Comment on above: Performed By: #### L 100.0100, L500.2500 #### [facility] [address] [place], [address] Platelets (Bld) [#/Vol] 326 10*3/uL Normal 150-450 [facility] Comment on above: Performed By: #### L 100.0100, L500.2500 #### [facility] [address] [place], [address] RBC (Bld) [#/Vol] 3.19 10*6/uL Low 4.6-6.2 [facility] Comment on above: Performed By: #### L 100.0100, L500.2500 #### [facility] [address] [place], [address] RDW SD 55.0 fl High 35.1-43.9 [facility] Comment on above: Performed By: #### L 100.0100, L500.2500 #### [facility] [address] [place], [address] WBC (Bld) [#/Vol] 15.3 10*3/uL High 4.4-11.0 [facility] Comment on above: Performed By: #### L 100.0100, L500.2500 #### [facility] [address] [place], [address] Carbon dioxide, total [Moles /volume] in Central venous bloodOrdered By: Norris Olmedo on 10-16-2024 CO2 [Moles/Vol] 21.5 mmol/L 21.0-32.0 [facility] Chloride assayOrdered By: Garcia Olmedo on 10-16-2024 Chloride [Moles/Vol] 105 mmol/L 98-108 [facility] Eosinophil percentageOrdered By: Norris Olmedo 10-16-2024 Eosinophils/100 WBC (Bld) 0.2 % 0-5 [facility] Erythrocyte distribution wid th ratioOrdered By: Norris Olmedo 10-16-2024 Erythrocyte distribution width (RBC) [Ratio] 16.6 % High 11.6-14.6 [facility] Erythrocyte distribution wid th standard deviationOrdered By: Norris Olmedo 10-16-2024 Erythrocyte distribution width (RBC) [Ratio] 55.0 fl High 35.1-43.9 [facility] Glomerular filtration rate ( GFR) estimation/1.73 sq m using serum, plasma, or whole bOrdered By: Norris Olmedo 10-16-2024 GFR/1.73 sq M.predicted among non-blacks MDRD (S/P/Bld) [Vol rate/Area] 76 mL/min/{1.73_m2} >60 [facility] Comment on above: mL/min/1.73m2 CKD-EP I Creatinine Equation (2020) Hematocrit Auto (Bld) [Volum e fraction]Ordered By: Norris Olmedo 10-16-2024 Hematocrit (Bld) [Volume fraction] 29.3 % Low 40-54 [facility] Hemoglobin measurementOrdere d By: Norris Olmedo 10-16-2024 Hemoglobin (Bld) [Mass/Vol] 9.3 g/dL Low 13.0-16.5 [facility] Immature granulocytes/100 WB C Auto (Bld)Ordered By: Norris Olmedo 10-16-2024 Immature granulocytes/100 WBC (Bld) 0.700 % 0.0-0.9 [facility] Comment on above: IG% - Immature Granu locytes (promyelocytes, myelocytes and metamyelocytes) > 1% indicates that a LEFT SHIFT is Present. MCV (mean corpuscular volume ) determinationOrdered By: Norris Olmedo 10-16-2024 MCV (RBC) [Entitic vol] 91.8 fL 80-94 [facility] Mean corpuscular hemoglobin (MCH) determinationOrdered By: Norris Olmedo on 10-16-2024 MCH (RBC) [Entitic mass] 29.2 pg 27.0-32.0 [facility] Mean corpuscular hemoglobin concentration (MCHC) determinationOrdered By: Norris Olmedo on 10-16-2024 MCHC (RBC) [Mass/Vol] 31.7 g/dL Low 32-36 [facility] Mean platelet volume determi nationOrdered By: Norris Olmedo on 10-16-2024 Platelet mean volume (Bld) [Entitic vol] 8.9 fL 6.2-12.0 [facility] Monocyte percentageOrdered B y: Norris Olmedo on 10-16-2024 Monocytes/100 WBC (Bld) 5.3 % 0-10 [facility] Neutrophil percentageOrdered By: Norris Olmedo on 10-16-2024 Neutrophils/100 WBC (Bld) 88.4 % High 47-70 [facility] Nucleated red blood cell per centageOrdered By: Norris Olmedo on 10-16-2024 Nucleated RBC/100 WBC (Bld) [Ratio] 0 % 0-5 [facility] Platelet countOrdered By: Garcia Olmedo on 10-16-2024 Platelets (Bld) [#/Vol] 326 10*3/uL 150-450 [facility] Potassium measurement (mass/ volume)Ordered By: Norris Olmedo on 10-16-2024 Potassium (Unsp spec) [Mass/Vol] 4.1 mmol/L 3.3-5.1 [facility] RBC Auto (Bld) [#/Vol]Ordere d By: Norris Olmedo on 10-16-2024 RBC (Bld) [#/Vol] 3.19 10*6/uL Low 4.6-6.2 [facility] Serum creatinine measurement (mass/volume)Ordered By: Norris Olmedo on 10-16-2024 Creatinine [Mass/Vol] 1.03 mg/dL 0.70-1.20 [facility] Serum glucose measurement (m ass/volume)Ordered By: Norris Olmedo on 10-16-2024 Glucose [Mass/Vol] 104 mg/dL High 70-99 [facility] Serum or plasma calcium lida urement (mass/volume)Ordered By: Norris Olmedo on 10-16-2024 Calcium [Mass/Vol] 8.4 mg/dL 7.6-11.0 [facility] Serum or plasma urea nitroge n measurement (mass/volume)Ordered By: Norris Olmedo on 10-16-2024 Urea nitrogen [Mass/Vol] 24 mg/dL High 4-19 [facility] Sodium levelOrdered By: Norris Olmedo on 10-16-2024 Sodium [Moles/Vol] 137 mmol/L 133-145 [facility] White blood cell (WBC) count Ordered By: Norris Olmedo on 10-16-2024 WBC (Bld) [#/Vol] 15.3 10*3/uL High 4.4-11.0 [facility] Abdomen Single Viewon 2024 Abdomen Single View [facility] [address] [place] [id number] Abdomen Single View MR#: [id number] Acct: [id number] Name: OLI DE LA FUENTE Jr. Rep #: [id number] : 1950 M 73 From: Stanley Hyatt MD PCP: Dr. Ashlee Lanier MD Status: ADM IN Study: Abdomen Single View Date of Exam: 10/15/24 Exam# [id number] Ordering Dr: Norris Olmedo MD PROCEDURE: ABDOMEN [...] PATTERN MOST SUGGESTIVE OF ILEUS. Reading Location: [facility] CC: Dr. Ashlee Lanier MD; Dr. Norris Olmedo MD Therapeutic Strategy Lead: Signed Normal [facility] Bilirubin, totalOrdered By: Norris Olmedo on 10-15-2024 Bilirubin [Mass/Vol] 1.53 mg/dL High 0.00-1.30 [facility] CBC W/Diff, Automatedon 10-01 Absolute Lymph 0.48 X10 3/uL Low 0.83-4.51 [facility] Comment on above: Performed By: #### L 100.0100 #### [facility] [address] [place], [address] Absolute Neut 17.7 X10 3/uL High 2.0-7.7 [facility] Comment on above: Performed By: #### L 100.0100 #### [facility] [address] [place], [address] Basophils/100 WBC (Bld) 0.2 % Normal 0-1 [facility] Comment on above: Performed By: #### L 100.0100 #### [facility] [address] [place], [address] Eosinophils/100 WBC (Bld) 0.1 % Normal 0-5 [facility] Comment on above: Performed By: #### L 100.0100 #### [facility] [address] [place], [address] Erythrocyte distribution width (RBC) [Ratio] 16.9 % High 11.6-14.6 [facility] Comment on above: Performed By: #### L 100.0100 #### [facility] [address] [place], [address] Hematocrit (Bld) [Volume fraction] 32.3 % Low 40-54 [facility] Comment on above: Performed By: #### L 100.0100 #### [facility] [address] [place], [address] Hemoglobin (Bld) [Mass/Vol] 10.3 g/dL Low 13.0-16.5 [facility] Comment on above: Performed By: #### L 100.0100 #### [facility] [address] [place], [address] IG% 0.900 Normal 0.0-0.9 [facility] Comment on above: Result Comment: IG% - Immature Granulocytes (promyelocytes, myelocytes and metamyelocytes) > 1% indicates that a LEFT SHIFT is Present. Performed By: #### L 100.0100 #### [facility] [address] [place], [address] Lymphocytes/100 WBC (Bld) 2.5 % Low 19-41 [facility] Comment on above: Performed By: #### L 100.0100 #### [facility] [address] [place], [address] MCH (RBC) [Entitic mass] 29.4 pg Normal 27.0-32.0 [facility] Comment on above: Performed By: #### L 100.0100 #### [facility] [address] [place], [address] MCHC (RBC) [Mass/Vol] 31.9 g/dL Low 32-36 [facility] Comment on above: Performed By: #### L 100.0100 #### [facility] [address] [place], [address] MCV (RBC) [Entitic vol] 92.3 fL Normal 80-94 [facility] Comment on above: Performed By: #### L 100.0100 #### [facility] [address] [place], [address] Monocytes/100 WBC (Bld) 5.0 % Normal 0-10 [facility] Comment on above: Performed By: #### L 100.0100 #### [facility] [address] [place], [address] Neutrophils/100 WBC (Bld) 91.3 % High 47-70 [facility] Comment on above: Performed By: #### L 100.0100 #### [facility] [address] [place], [address] Nucleated RBC (Bld) [#/Vol] 0 10*3/uL Normal 0-5 [facility] Comment on above: Performed By: #### L 100.0100 #### [facility] [address] [place], [address] Platelet mean volume (Bld) [Entitic vol] 9.0 fL Normal 6.2-12.0 [facility] Comment on above: Performed By: #### L 100.0100 #### [facility] [address] [place], [address] Platelets (Bld) [#/Vol] 343 10*3/uL Normal 150-450 [facility] Comment on above: Performed By: #### L 100.0100 #### [facility] [address] [place], [address] RBC (Bld) [#/Vol] 3.50 10*6/uL Low 4.6-6.2 [facility] Comment on above: Performed By: #### L 100.0100 #### [facility] [address] [place], [address] RDW SD 56.9 fl High 35.1-43.9 [facility] Comment on above: Performed By: #### L 100.0100 #### [facility] [address] [place], [address] WBC (Bld) [#/Vol] 19.4 10*3/uL High 4.4-11.0 [facility] Comment on above: Performed By: #### L 100.0100 #### [facility] [address] [place], [address] Absolute Neut Normal 2.0-7.7 [facility] Comment on above: Result Comment: Canc elled via OM: MD Ordered Performed By: #### L 100.0100 #### [facility] [address] [place], [address] HCT Normal 40-54 [facility] Comment on above: Result Comment: Canc elled via OM: MD Ordered Performed By: #### L 100.0100 #### [facility] [address] [place], [address] HGB Normal 13.0-16.5 [facility] Comment on above: Result Comment: Canc elled via OM: MD Ordered Performed By: #### L 100.0100 #### [facility] [address] [place], [address] MCH Normal 27.0-32.0 [facility] Comment on above: Result Comment: Canc elled via OM: MD Ordered Performed By: #### L 100.0100 #### [facility] [address] [place], [address] MCHC Normal 32-36 [facility] Comment on above: Result Comment: Canc elled via OM: MD Ordered Performed By: #### L 100.0100 #### [facility] [address] [place], [address] MCV Normal 80-94 [facility] Comment on above: Result Comment: Canc elled via OM: MD Ordered Performed By: #### L 100.0100 #### [facility] [address] [place], [address] NEUT% Normal 47-70 [facility] Comment on above: Result Comment: Canc elled via OM: MD Ordered Performed By: #### L 100.0100 #### [facility] [address] [place], [address] PLT Normal 150-450 [facility] Comment on above: Result Comment: Canc elled via OM: MD Ordered Performed By: #### L 100.0100 #### [facility] [address] [place], [address] RBC Normal 4.6-6.2 [facility] Comment on above: Result Comment: Canc elled via OM: MD Ordered Performed By: #### L 100.0100 #### [facility] [address] [place], [address] RDW CV Normal 11.6-14.6 [facility] Comment on above: Result Comment: Canc elled via OM: MD Ordered Performed By: #### L 100.0100 #### [facility] [address] [place], [address] RDW SD Normal 35.1-43.9 [facility] Comment on above: Result Comment: Canc elled via OM: MD Ordered Performed By: #### L 100.0100 #### [facility] [address] [place], [address] WBC Normal 4.4-11.0 [facility] Comment on above: Result Comment: Canc elled via OM: MD Ordered Performed By: #### L 100.0100 #### [facility] [address] [place], [address] Absolute Neut Normal 2.0-7.7 [facility] Comment on above: Result Comment: Canc elled via OM: Order edited - Discontinuing original order Performed By: #### L 100.0100 #### [facility] [address] [place], [address] HCT Normal 40-54 [facility] Comment on above: Result Comment: Canc elled via OM: Order edited - Discontinuing original order Performed By: #### L 100.0100 #### [facility] [address] [place], [address] HGB Normal 13.0-16.5 [facility] Comment on above: Result Comment: Canc elled via OM: Order edited - Discontinuing original order Performed By: #### L 100.0100 #### [facility] [address] [place], [address] MCH Normal 27.0-32.0 [facility] Comment on above: Result Comment: Canc elled via OM: Order edited - Discontinuing original order Performed By: #### L 100.0100 #### [facility] [address] [place], [address] MCHC Normal 32-36 [facility] Comment on above: Result Comment: Canc elled via OM: Order edited - Discontinuing original order Performed By: #### L 100.0100 #### [facility] [address] [place], [address] MCV Normal 80-94 [facility] Comment on above: Result Comment: Canc elled via OM: Order edited - Discontinuing original order Performed By: #### L 100.0100 #### [facility] [address] [place], [address] NEUT% Normal 47-70 [facility] Comment on above: Result Comment: Canc elled via OM: Order edited - Discontinuing original order Performed By: #### L 100.0100 #### [facility] [address] [place], [address] PLT Normal 150-450 [facility] Comment on above: Result Comment: Canc elled via OM: Order edited - Discontinuing original order Performed By: #### L 100.0100 #### [facility] [address] [place], [address] RBC Normal 4.6-6.2 [facility] Comment on above: Result Comment: Canc elled via OM: Order edited - Discontinuing original order Performed By: #### L 100.0100 #### [facility] [address] [place], [address] RDW CV Normal 11.6-14.6 [facility] Comment on above: Result Comment: Canc elled via OM: Order edited - Discontinuing original order Performed By: #### L 100.0100 #### [facility] [address] [place], [address] RDW SD Normal 35.1-43.9 [facility] Comment on above: Result Comment: Canc elled via OM: Order edited - Discontinuing original order Performed By: #### L 100.0100 #### [facility] [address] [place], [address] WBC Normal 4.4-11.0 [facility] Comment on above: Result Comment: Canc elled via OM: Order edited - Discontinuing original order Performed By: #### L 100.0100 #### [facility] [address] [place], [address] Chest PA and Lateralon 10-15 Chest PA and Lateral [facility] [address] [place] [address] Chest PA and Lateral MR#: [id number] Acct: [id number] Name: OLI DE LA FUENTE Jr. Rep #: [id number] : [id number] M 73 From: Carlos Echevarria MD PCP: Dr. Ashlee Lanier MD Status: ADM IN Study: Chest PA and Lateral Date of Exam: 10/15/24 Exam# [id number] Ordering Dr: Norris Olmedo MD PROCEDURE: CHEST [...] process. Bilateral pulmonary vascular congestion. Reading Location: [id number] CC: Dr. Ashlee Lanier MD; Dr. Norris Olmedo MD Therapeutic Strategy Lead: Signed Normal [facility] Comprehensive Metabolic Prof ilon 10-15-2024 Albumin [Mass/Vol] 3.3 g/dL Low 3.4-4.8 [facility] Comment on above: Performed By: #### L 500.4050, L501.5200, L501.2300 #### [facility] [address] [place], [address] Albumin/Globulin [Mass ratio] 1.1 {ratio} Normal 0.9-2.4 [facility] Comment on above: Performed By: #### L 500.4050, L501.5200, L501.2300 #### [facility] [address] [place], [address] ALK PHOS 88 U/L Normal 40-129 [facility] Comment on above: Performed By: #### L 500.4050, L501.5200, L501.2300 #### [facility] [address] [place], [address] ALT [Catalytic activity/Vol] 40 U/L Normal <=46 [facility] Comment on above: Performed By: #### L 500.4050, L501.5200, L501.2300 #### [facility] [address] [place], [address] AST [Catalytic activity/Vol] 61 U/L High <=37 [facility] Comment on above: Performed By: #### L 500.4050, L501.5200, L501.2300 #### [facility] [address] [place], [address] Bilirubin [Mass/Vol] 1.53 mg/dL High 0.00-1.30 [facility] Comment on above: Performed By: #### L 500.4050, L501.5200, L501.2300 #### [facility] [address] [place], [address] BUN/CRE 21.7 RATIO High 10-20 [facility] Comment on above: Performed By: #### L 500.4050, L501.5200, L501.2300 #### [facility] [address] [place], [address] Calcium [Mass/Vol] 8.6 mg/dL Normal 7.6-11.0 [facility] Comment on above: Performed By: #### L 500.4050, L501.5200, L501.2300 #### [facility] [address] [place], [address] Chloride [Moles/Vol] 103 mmol/L Normal 98-108 [facility] Comment on above: Performed By: #### L 500.4050, L501.5200, L501.2300 #### [facility] [address] [place], [address] CO2 [Moles/Vol] 21.0 mmol/L Normal 21.0-32.0 [facility] Comment on above: Performed By: #### L 500.4050, L501.5200, L501.2300 #### [facility] [address] [place], [address] Creatinine [Mass/Vol] 1.11 mg/dL Normal 0.70-1.20 [facility] Comment on above: Performed By: #### L 500.4050, L501.5200, L501.2300 #### [facility] [address] [place], [address] ECRCL 64.98 ml/min Normal 50-250 [facility] Comment on above: Performed By: #### L 500.4050, L501.5200, L501.2300 #### [facility] [address] [place], [address] GAP 14 Normal 5-15 [facility] Comment on above: Performed By: #### L 500.4050, L501.5200, L501.2300 #### [facility] [address] [place], [address] GFR/1.73 sq M.predicted among non-blacks MDRD (S/P/Bld) [Vol rate/Area] 69 mL/min/{1.73_m2} Normal >60 [facility] Comment on above: Result Comment: mL/m in/1.73m2 CKD-EPI Creatinine Equation (2020) Performed By: #### L 500.4050, L501.5200, L501.2300 #### [facility] [address] [place], [address] Globulin (S) [Mass/Vol] 2.9 g/dL Normal 2.2-4.2 [facility] Comment on above: Performed By: #### L 500.4050, L501.5200, L501.2300 #### [facility] [address] [place], [address] Glucose [Mass/Vol] 108 mg/dL High 70-99 [facility] Comment on above: Performed By: #### L 500.4050, L501.5200, L501.2300 #### [facility] [address] [place], [address] Potassium [Moles/Vol] 4.5 mmol/L Normal 3.3-5.1 [facility] Comment on above: Performed By: #### L 500.4050, L501.5200, L501.2300 #### [facility] [address] [place], [address] Sodium [Moles/Vol] 138 mmol/L Normal 133-145 [facility] Comment on above: Performed By: #### L 500.4050, L501.5200, L501.2300 #### [facility] [address] [place], [address] T PROT 6.2 g/dL Normal 5.9-8.4 [facility] Comment on above: Performed By: #### L 500.4050, L501.5200, L501.2300 #### [facility] [address] [place], [address] Urea nitrogen [Mass/Vol] 24 mg/dL High 4-19 [facility] Comment on above: Performed By: #### L 500.4050, L501.5200, L501.2300 #### [facility] [address] [place], [address] ALB Normal 3.4-4.8 [facility] Comment on above: Result Comment: DUPL ICATE Performed By: #### L 100.0100, L501.2450, L500.4050 #### [facility] [address] [place], [address] ALK PHOS Normal 40-129 [facility] Comment on above: Result Comment: DUPL ICATE Performed By: #### L 100.0100, L501.2450, L500.4050 #### [facility] [address] [place], [address] ALT Normal <=46 [facility] Comment on above: Result Comment: DUPL ICATE Performed By: #### L 100.0100, L501.2450, L500.4050 #### [facility] [address] [place], [address] AST Normal <=37 [facility] Comment on above: Result Comment: DUPL ICATE Performed By: #### L 100.0100, L501.2450, L500.4050 #### [facility] [address] [place], [address] BUN Normal 4-19 [facility] Comment on above: Result Comment: DUPL ICATE Performed By: #### L 100.0100, L501.2450, L500.4050 #### [facility] [address] [place], [address] BUN/CRE Normal 10-20 [facility] Comment on above: Result Comment: DUPL ICATE Performed By: #### L 100.0100, L501.2450, L500.4050 #### [facility] [address] [place], [address] Calcium Normal 7.6-11.0 [facility] Comment on above: Result Comment: DUPL ICATE Performed By: #### L 100.0100, L501.2450, L500.4050 #### [facility] [address] [place], [address] CL Normal 98-108 [facility] Comment on above: Result Comment: DUPL ICATE Performed By: #### L 100.0100, L501.2450, L500.4050 #### [facility] [address] [place], [address] CO2 Normal 21.0-32.0 [facility] Comment on above: Result Comment: DUPL ICATE Performed By: #### L 100.0100, L501.2450, L500.4050 #### [facility] [address] [place], [address] CREAT,SERUM Normal 0.70-1.20 [facility] Comment on above: Result Comment: DUPL ICATE Performed By: #### L 100.0100, L501.2450, L500.4050 #### [facility] [address] [place], [address] eGFR Normal >60 [facility] Comment on above: Result Comment: DUPL ICATE Performed By: #### L 100.0100, L501.2450, L500.4050 #### [facility] [address] [place], [address] GAP Normal 5-15 [facility] Comment on above: Result Comment: DUPL ICATE Performed By: #### L 100.0100, L501.2450, L500.4050 #### [facility] [address] [place], [address] GLU Normal 70-99 [facility] Comment on above: Result Comment: DUPL ICATE Performed By: #### L 100.0100, L501.2450, L500.4050 #### [facility] [address] [place], [address] Potassium Normal 3.3-5.1 [facility] Comment on above: Result Comment: DUPL ICATE Performed By: #### L 100.0100, L501.2450, L500.4050 #### [facility] [address] [place], [address] T BILI Normal 0.00-1.30 [facility] Comment on above: Result Comment: DUPL ICATE Performed By: #### L 100.0100, L501.2450, L500.4050 #### [facility] [address] [place], [address] T PROT Normal 5.9-8.4 [facility] Comment on above: Result Comment: DUPL ICATE Performed By: #### L 100.0100, L501.2450, L500.4050 #### [facility] [address] [place], [address] Comprehensive Metabolic Profil Normal 133-145 [facility] Comment on above: Result Comment: DUPL ICATE Performed By: #### L 100.0100, L501.2450, L500.4050 #### [facility] [address] [place], [address] ALB Normal 3.4-4.8 [facility] Comment on above: Result Comment: Canc elled via OM: Order edited - Discontinuing original order Performed By: #### L 100.0100 #### [facility] [address] [place], [address] ALK PHOS Normal 40-129 [facility] Comment on above: Result Comment: Canc elled via OM: Order edited - Discontinuing original order Performed By: #### L 100.0100 #### [facility] [address] [place], [address] ALT Normal <=46 [facility] Comment on above: Result Comment: Canc elled via OM: Order edited - Discontinuing original order Performed By: #### L 100.0100 #### [facility] [address] [place], [address] AST Normal <=37 [facility] Comment on above: Result Comment: Canc elled via OM: Order edited - Discontinuing original order Performed By: #### L 100.0100 #### [facility] [address] [place], [address] BUN Normal 4-19 [facility] Comment on above: Result Comment: Canc elled via OM: Order edited - Discontinuing original order Performed By: #### L 100.0100 #### [facility] [address] [place], [address] BUN/CRE Normal 10-20 [facility] Comment on above: Result Comment: Canc elled via OM: Order edited - Discontinuing original order Performed By: #### L 100.0100 #### [facility] [address] [place], [address] Calcium Normal 7.6-11.0 [facility] Comment on above: Result Comment: Canc elled via OM: Order edited - Discontinuing original order Performed By: #### L 100.0100 #### [facility] [address] [place], [address] CL Normal 98-108 [facility] Comment on above: Result Comment: Canc elled via OM: Order edited - Discontinuing original order Performed By: #### L 100.0100 #### [facility] [address] [place], [address] CO2 Normal 21.0-32.0 [facility] Comment on above: Result Comment: Canc elled via OM: Order edited - Discontinuing original order Performed By: #### L 100.0100 #### [facility] [address] [place], [address] CREAT,SERUM Normal 0.70-1.20 [facility] Comment on above: Result Comment: Canc elled via OM: Order edited - Discontinuing original order Performed By: #### L 100.0100 #### [facility] [address] [place], [address] eGFR Normal >60 [facility] Comment on above: Result Comment: Canc elled via OM: Order edited - Discontinuing original order Performed By: #### L 100.0100 #### [facility] [address] [place], [address] GAP Normal 5-15 [facility] Comment on above: Result Comment: Canc elled via OM: Order edited - Discontinuing original order Performed By: #### L 100.0100 #### [facility] [address] [place], [address] GLU Normal 70-99 [facility] Comment on above: Result Comment: Canc elled via OM: Order edited - Discontinuing original order Performed By: #### L 100.0100 #### [facility] [address] [place], [address] Potassium Normal 3.3-5.1 [facility] Comment on above: Result Comment: Canc elled via OM: Order edited - Discontinuing original order Performed By: #### L 100.0100 #### [facility] [address] [place], [address] T BILI Normal 0.00-1.30 [facility] Comment on above: Result Comment: Canc elled via OM: Order edited - Discontinuing original order Performed By: #### L 100.0100 #### [facility] [address] [place], [address] T PROT Normal 5.9-8.4 [facility] Comment on above: Result Comment: Canc elled via OM: Order edited - Discontinuing original order Performed By: #### L 100.0100 #### [facility] [address] [place], [address] Comprehensive Metabolic Profil Normal 133-145 [facility] Comment on above: Result Comment: Canc elled via OM: Order edited - Discontinuing original order Performed By: #### L 100.0100 #### [facility] [address] [place], [address] Laboratory - Chemistry and C hemistry - challengeOrdered By: Norris Olmedo on 10-15-2024 AST [Catalytic activity/Vol] 61 U/L High <38 [facility] Magnesiumon 10-15-2024 Magnesium [Mass/Vol] 1.9 mg/dL Normal 1.5-2.2 [facility] Comment on above: Performed By: #### L 100.0100 #### [facility] [address] [place], [address] Magnesium measurement (mass/ volume)Ordered By: Norris Olmedo on 10-15-2024 Magnesium (Unsp spec) [Mass/Vol] 1.9 mg/dL 1.5-2.2 [facility] Natriuretic peptide.B prohor chivo N-Terminal [Mass/volume] in Serum or PlasmaOrdered By: Norris Olmedo 10-15-2024 Natriuretic peptide.B prohormone N-Terminal [Mass/Vol] 833 pg/mL <1800 [facility] Comment on above: Heart Failure Unlike ly: < 300 pg/mLHeart Failure Likely< 50 Years: > 450 pg/mL50-75 Years: > 900 pg/mL>75 Years: > 1800 pg/mL Phosphoruson 10-15-2024 Phosphate [Mass/Vol] 2.2 mg/dL Low 2.7-4.5 [facility] Comment on above: Performed By: #### L 500.4050, L501.5200, L501.2300 #### [facility] [address] [place], [place], [address] Pro- Brain NATRIURETIC PEPTI Mirna 10-15-2024 Natriuretic peptide B (Bld) [Mass/Vol] 833 pg/mL Normal <=1800 [facility] Comment on above: Result Comment: Hear t Failure Unlikely: < 300 pg/mL Heart Failure Likely < 50 Years: > 450 pg/mL 50-75 Years: > 900 pg/mL >75 Years: > 1800 pg/mL Performed By: #### L 503.7505 #### [facility] [address] [place], [place], [address] Serum globulin measurementOr dered By: Norris Olmedo on 10-15-2024 Globulin (S) [Mass/Vol] 2.9 g/dL 2.2-4.2 [facility] Serum or plasma alanine malloy otransferase (ALT) measurementOrdered By: Norris Olmedo 10-15-2024 ALT [Catalytic activity/Vol] 40 U/L <47 [facility] Serum or plasma albumin lida urement (mass/volume)Ordered By: Norris Olmedo 10-15-2024 Albumin [Mass/Vol] 3.3 g/dL Low 3.4-4.8 [facility] Serum or plasma albumin/glob ulin mass ratioOrdered By: Norris Olmedo on 10-15-2024 Albumin/Globulin [Mass ratio] 1.1 {ratio} 0.9-2.4 [facility] Serum or plasma alkaline ramin sphatase measurementOrdered By: Norris Olmedo on 10-15-2024 ALP [Catalytic activity/Vol] 88 U/L 40-129 [facility] Total proteinOrdered By: Norris Olmedo on 10-15-2024 Protein [Mass/Vol] 6.2 g/dL 5.9-8.4 [facility] Basic Metabolic Profile (BMP )on 10-14-2024 BUN/CRE 23.1 RATIO High 10-20 [facility] Comment on above: Performed By: #### L 100.0100 #### [facility] [address] [place], [address] Calcium [Mass/Vol] 8.5 mg/dL Normal 7.6-11.0 [facility] Comment on above: Performed By: #### L 100.0100 #### [facility] [address] [place], [address] Chloride [Moles/Vol] 103 mmol/L Normal 98-108 [facility] Comment on above: Performed By: #### L 100.0100 #### [facility] [address] [place], [address] CO2 [Moles/Vol] 24.5 mmol/L Normal 21.0-32.0 [facility] Comment on above: Performed By: #### L 100.0100 #### [facility] [address] [place], [address] Creatinine [Mass/Vol] 0.89 mg/dL Normal 0.70-1.20 [facility] Comment on above: Performed By: #### L 100.0100 #### [facility] [address] [place], [address] ECRCL 81.05 ml/min Normal 50-250 [facility] Comment on above: Performed By: #### L 100.0100 #### [facility] [address] [place], [address] GAP 11 Normal 5-15 [facility] Comment on above: Performed By: #### L 100.0100 #### [facility] [address] [place], [address] GFR/1.73 sq M.predicted among non-blacks MDRD (S/P/Bld) [Vol rate/Area] 90 mL/min/{1.73_m2} Normal >60 [facility] Comment on above: Result Comment: mL/m in/1.73m2 CKD-EPI Creatinine Equation (2020) Performed By: #### L 100.0100 #### [facility] [address] [place], [address] Glucose [Mass/Vol] 92 mg/dL Normal 70-99 [facility] Comment on above: Performed By: #### L 100.0100 #### [facility] [address] [place], [address] Potassium [Moles/Vol] 3.7 mmol/L Normal 3.3-5.1 [facility] Comment on above: Performed By: #### L 100.0100 #### [facility] [address] [place], [address] Sodium [Moles/Vol] 138 mmol/L Normal 133-145 [facility] Comment on above: Performed By: #### L 100.0100 #### [facility] [address] [place], [address] Urea nitrogen [Mass/Vol] 20 mg/dL High 4-19 [facility] Comment on above: Performed By: #### L 100.0100 #### [facility] [address] [place], [address] CBC W/Diff, Automatedon 10-01 Absolute Lymph 1.22 X10 3/uL Normal 0.83-4.51 [facility] Comment on above: Performed By: #### L 100.0100 #### [facility] [address] [place], [address] Absolute Neut 5.5 X10 3/uL Normal 2.0-7.7 [facility] Comment on above: Performed By: #### L 100.0100 #### [facility] [address] [place], [address] Basophils/100 WBC (Bld) 0.5 % Normal 0-1 [facility] Comment on above: Performed By: #### L 100.0100 #### [facility] [address] [place], [address] Eosinophils/100 WBC (Bld) 1.9 % Normal 0-5 [facility] Comment on above: Performed By: #### L 100.0100 #### [facility] [address] [place], [address] Erythrocyte distribution width (RBC) [Ratio] 16.7 % High 11.6-14.6 [facility] Comment on above: Performed By: #### L 100.0100 #### [facility] [address] [place], [address] Hematocrit (Bld) [Volume fraction] 32.1 % Low 40-54 [facility] Comment on above: Performed By: #### L 100.0100 #### [facility] [address] [place], [address] Hemoglobin (Bld) [Mass/Vol] 10.2 g/dL Low 13.0-16.5 [facility] Comment on above: Performed By: #### L 100.0100 #### [facility] [address] [place], [address] IG% 2.300 High 0.0-0.9 [facility] Comment on above: Result Comment: IG% - Immature Granulocytes (promyelocytes, myelocytes and metamyelocytes) > 1% indicates that a LEFT SHIFT is Present. Performed By: #### L 100.0100 #### [facility] [address] [place], [address] Lymphocytes/100 WBC (Bld) 15.4 % Low 19-41 [facility] Comment on above: Performed By: #### L 100.0100 #### [facility] [address] [place], [address] MCH (RBC) [Entitic mass] 29.1 pg Normal 27.0-32.0 [facility] Comment on above: Performed By: #### L 100.0100 #### [facility] [address] [place], [address] MCHC (RBC) [Mass/Vol] 31.8 g/dL Low 32-36 [facility] Comment on above: Performed By: #### L 100.0100 #### [facility] [address] [place], [address] MCV (RBC) [Entitic vol] 91.5 fL Normal 80-94 [facility] Comment on above: Performed By: #### L 100.0100 #### [facility] [address] [place], [address] Monocytes/100 WBC (Bld) 10.5 % High 0-10 [facility] Comment on above: Performed By: #### L 100.0100 #### [facility] [address] [place], [address] Neutrophils/100 WBC (Bld) 69.4 % Normal 47-70 [facility] Comment on above: Performed By: #### L 100.0100 #### [facility] [address] [place], [address] Nucleated RBC (Bld) [#/Vol] 0 10*3/uL Normal 0-5 [facility] Comment on above: Performed By: #### L 100.0100 #### [facility] [address] [place], [address] Platelet mean volume (Bld) [Entitic vol] 9.4 fL Normal 6.2-12.0 [facility] Comment on above: Performed By: #### L 100.0100 #### [facility] [address] [place], [address] Platelets (Bld) [#/Vol] 318 10*3/uL Normal 150-450 [facility] Comment on above: Performed By: #### L 100.0100 #### [facility] [address] [place], [address] RBC (Bld) [#/Vol] 3.51 10*6/uL Low 4.6-6.2 [facility] Comment on above: Performed By: #### L 100.0100 #### [facility] [address] [place], [address] RDW SD 55.5 fl High 35.1-43.9 [facility] Comment on above: Performed By: #### L 100.0100 #### [facility] [address] [place], [address] WBC (Bld) [#/Vol] 7.9 10*3/uL Normal 4.4-11.0 [facility] Comment on above: Performed By: #### L 100.0100 #### [facility] [address] [place], [address] CTA Chst, Abd, Pel W and/or WOon 10-14-2024 CTA Chst, Abd, Pel W and/or WO [facility] [address] [place] [address] CTA Chst, Abd, Pel W and/or WO MR#: [id number] Acct: [id number] Name: OLI DE LA FUENTE Jr. Rep #: [id number] : 1950 M 73 From: Hal martin MD PCP: Dr. Ashlee Lanier MD Status: REG CLI Study: CTA Chst, Abd, Pel W and/or WO Date of Exam: 0 10/14/24 Exam# [id number] Ordering Dr: Norris Olmedo MD PROCEDURE: CTA [...] evidence of prior endoluminal stent grafting. The [place] abdominal aorta measures 7.5 cm in transverse [...] hematoma. Findings as discussed above. Reading Location: [facility] CC: Dr. Ashlee Lanier MD; Dr. Norris Olmedo MD Therapeutic Strategy Lead: Signed Normal [facility] CBC panel Auto (Bld)on 10-13 Erythrocyte distribution width (RBC) [Ratio] 16.7 % High 11.5-14.5 [facility] Comment on above: Performed By: #### 5 8410-2 ####ANNETTE Foss ([id number])[facility])[address] [place] [address] Hematocrit (Bld) [Volume fraction] 36.3 % Low 41.0-52.0 [facility] Comment on above: Performed By: #### 5 8410-2 ####ANNETTE Foss ([id number])[facility])[address] [place] [address] Hemoglobin (Bld) [Mass/Vol] 10.9 g/dL Low 13.5-17.5 [facility] Comment on above: Performed By: #### 5 8410-2 ####ANNETTE GARCIA L ([id number])[facility])[address] [place] [address] MCH (RBC) [Entitic mass] 29.3 pg Normal 26.0-34.0 [facility] Comment on above: Performed By: #### 5 8410-2 ####ANNETTE GARCIA L ([id number])[facility])[address] [place] [address] MCHC (RBC) [Mass/Vol] 30.0 g/dL Low 32.0-36.0 [facility] Comment on above: Performed By: #### 5 8410-2 ####ANNETTE Foss ([id number])[facility])[address] [place] [address] MCV (RBC) [Entitic vol] 98 fL Normal 80-100 [facility] Comment on above: Performed By: #### 5 8410-2 ####ANNETTE Foss ([id number])[facility])[address] [place] [address] Nucleated RBC/100 WBC (Bld) [Ratio] 0.0 /100 WBCs Normal 0.0-0.0 [facility] Comment on above: Performed By: #### 5 8410-2 ####ANNETTE Foss ([id number])[facility])[address] [place] [address] Platelets (Bld) [#/Vol] 273 x10*3/uL Normal 150-450 [facility] Comment on above: Performed By: #### 5 8410-2 ####ANNETTE Foss ([id number])[facility])[address] [place] [address] RBC (Bld) [#/Vol] 3.72 x10*6/uL Low 4.50-5.90 [facility] Comment on above: Performed By: #### 5 8410-2 ####ANNETTE Foss ([id number])[facility])[address] [place] [address] WBC (Bld) [#/Vol] 7.7 x10*3/uL Normal 4.4-11.3 [facility] Comment on above: Performed By: #### 5 8410-2 ####ANENTTE Foss ([id number])[facility])[address] [place] [address] Coagulation surface inducedo n 10-13-2024 aPTT Coag (PPP) [Time] 58 s High 26-36 [facility] Comment on above: Order Comment: When two (2) consecutive Activated Partial Thromboplastin Times results obtained 2 hours apart are therapeutic, obtain STAT Activated Partial Thromboplastin Time every a.m. Nursing to release order.The APTT is no longer used for monitoring Unfractionated Heparin Therapy. For monitoring Heparin Therapy, use the Heparin Assay. Performed By: #### 1 4979-9 ####ANNETTE Foss ([id number])[facility])[id number] [place] [address] Glucose Test strip manual (B ld) [Mass/Vol]on 10-13-2024 Glucose [Mass/Vol] 92 mg/dL Normal 74-99 [facility] Comment on above: Performed By: #### 2 341-6 ####ANNETTE Foss ([id number])[facility])[address] [place] [address] Glucose [Mass/Vol] 74 mg/dL Normal 74-99 [facility] Comment on above: Performed By: #### 2 341-6 ####ANNETTE Foss ([id number])[facility])[address] [place] [address] Glucose [Mass/Vol] 96 mg/dL Normal 74-99 [facility] Comment on above: Performed By: #### 2 341-6 ####ANNETTE Foss ([id number])[facility])[address] [place] [address] Magnesiumon 10-13-2024 Magnesium [Mass/Vol] 2.17 mg/dL Normal 1.60-2.40 [facility] Comment on above: Performed By: #### 1 9123-9 ####ANNETTE Foss ([id number])[facility])[address] [place] [address] Renal function 2000 panelon 10-13-2024 Albumin BCP dye [Mass/Vol] 3.3 g/dL Low 3.4-5.0 [facility] Comment on above: Performed By: #### 2 4362-6 ####ANNETTE Foss ([id number])[facility])[address] [place] [address] Anion gap [Moles/Vol] 9 mmol/L Low 10-20 [facility] Comment on above: Performed By: #### 2 4362-6 ####ANNETTE RAMSEYTZER L ([id number])[facility])[address] [place] [address] Calcium [Mass/Vol] 8.7 mg/dL Normal 8.6-10.6 [facility] Comment on above: Performed By: #### 2 4362-6 ####ANNETTE RAMSEYTZER L ([id number])[facility])[address] [place] [address] Chloride [Moles/Vol] 103 mmol/L Normal 98-107 [facility] Comment on above: Performed By: #### 2 4362-6 ####ANNETTE YEBOAHMOTZER L ([id number])[facility])[address] [place] [address] CO2 [Moles/Vol] 32 mmol/L Normal 21-32 [facility] Comment on above: Performed By: #### 2 4362-6 ####ANNETTE YEBOAHMOTZER L ([id number])[facility])[address] [place] [address] Creatinine [Mass/Vol] 0.90 mg/dL Normal 0.50-1.30 [facility] Comment on above: Performed By: #### 2 4362-6 ####ANENTTE YEBOAHMOTZER L ([id number])[facility])[address] [place] [address] Glomerular filtration rate 89 mL/min/1.73m*2 Normal >60 [facility] Comment on above: Result Comment: Calc ulations of estimated GFR are performed using the 2020 CKD-EPI Study Refit equation without the race variable for the IDMS-Traceable creatinine methods.https://jasn.asnjournals.org/content// ASN.3318118177 Performed By: #### 2 4362-6 ####ANNETTE Foss ([id number])[facility])[address] [place] [address] Glucose [Mass/Vol] 124 mg/dL High 74-99 [facility] Comment on above: Performed By: #### 2 4362-6 ####ANNETTE GARCIA L ([id number])[facility])[address] [place] [address] Phosphate [Mass/Vol] 2.1 mg/dL Low 2.5-4.9 [facility] Comment on above: Result Comment: MILD HEMOLYSIS DETECTED. The result may be falsely elevated due to hemolysis or other interferents. Clinical correlation is recommended. Repeat testing may be considered. Performed By: #### 2 4362-6 ####ANNETTE Foss ([id number])[facility])[address] [place] [address] Potassium [Moles/Vol] 3.7 mmol/L Normal 3.5-5.3 [facility] Comment on above: Result Comment: MILD HEMOLYSIS DETECTED. The result may be falsely elevated due to hemolysis or other interferents. Clinical correlation is recommended. Repeat testing may be considered. Performed By: #### 2 4362-6 ####ANNETTE Foss ([id number])[facility])[address] [place] [address] Sodium [Moles/Vol] 140 mmol/L Normal 136-145 [facility] Comment on above: Performed By: #### 2 4362-6 ####ANNETTE GARCIA L ([id number])[facility])[address] [place] [address] Urea nitrogen [Mass/Vol] 22 mg/dL Normal 6-23 [facility] Comment on above: Performed By: #### 2 4362-6 ####ANNETTE GARCIA L ([id number])[facility])[address] [place] [address] CBC panel Auto (Bld)on 10-12 Erythrocyte distribution width (RBC) [Ratio] 16.7 % High 11.5-14.5 [facility] Comment on above: Performed By: #### 5 8410-2 ####ANNETTE Foss ([id number])[facility])[address] [place] [address] Hematocrit (Bld) [Volume fraction] 33.4 % Low 41.0-52.0 [facility] Comment on above: Performed By: #### 5 8410-2 ####ANNETTE Foss ([id number])[facility])[address] [place] [address] Hemoglobin (Bld) [Mass/Vol] 10.4 g/dL Low 13.5-17.5 [facility] Comment on above: Performed By: #### 5 8410-2 ####ANNETTE Foss ([id number])[facility])[address] [place] [address] MCH (RBC) [Entitic mass] 28.8 pg Normal 26.0-34.0 [facility] Comment on above: Performed By: #### 5 8410-2 ####ANNETTE Foss ([id number])[facility])[address] [place] [address] MCHC (RBC) [Mass/Vol] 31.1 g/dL Low 32.0-36.0 [facility] Comment on above: Performed By: #### 5 8410-2 ####ANNETTE Foss ([id number])[facility])[address] [place] [address] MCV (RBC) [Entitic vol] 93 fL Normal 80-100 [facility] Comment on above: Performed By: #### 5 8410-2 ####ANNETTE Foss ([id number])[facility])[address] [place] [address] Nucleated RBC/100 WBC (Bld) [Ratio] 0.0 /100 WBCs Normal 0.0-0.0 [facility] Comment on above: Performed By: #### 5 8410-2 ####ANNETTE Foss ([id number])[facility])[id number] [place] [address] Platelets (Bld) [#/Vol] 223 x10*3/uL Normal 150-450 [facility] Comment on above: Performed By: #### 5 8410-2 ####ANNETTE Foss ([id number])[facility])[address] [place] [address] RBC (Bld) [#/Vol] 3.61 x10*6/uL Low 4.50-5.90 [facility] Comment on above: Performed By: #### 5 8410-2 ####ANNETTE Foss ([id number])[facility])[address] [place] [address] WBC (Bld) [#/Vol] 9.6 x10*3/uL Normal 4.4-11.3 [facility] Comment on above: Performed By: #### 5 8410-2 ####ANNETTE Foss ([id number])[facility])[id number] [place] [address] Calcium.ionizedon 10-12-2024 Calcium.ionized (Bld) [Moles/Vol] 1.17 mmol/L Normal 1.1-1.33 [facility] Comment on above: Result Comment: The performance characteristics of ionized calcium testedin heparinized plasma or serum have been validated [facility].Testing on heparinized plasma or serum is not approved bythe FDA; however, such approval is not necessary. Performed By: #### 1 994-3 ####ANNETTE Foss ([id number])[facility])[address] [place] [address] Glucose Test strip manual (B ld) [Mass/Vol]on 10-12-2024 Glucose [Mass/Vol] 106 mg/dL High 74-99 [facility] Comment on above: Performed By: #### 2 341-6 ####ANNETTE Foss ([id number])[facility])[address] [place] [address] Glucose [Mass/Vol] 80 mg/dL Normal 74-99 [facility] Comment on above: Performed By: #### 2 341-6 ####ANNETTE Foss ([id number])[facility])[address] [place] [address] Glucose [Mass/Vol] 114 mg/dL High 74-99 [facility] Comment on above: Performed By: #### 2 341-6 ####ANNETTE Foss ([id number])[facility])[address] [place] [address] Glucose [Mass/Vol] 77 mg/dL Normal 74-99 [facility] Comment on above: Performed By: #### 2 341-6 ####ANNETTE Foss ([id number])[facility])[address] [place] [address] Glucose [Mass/Vol] 88 mg/dL Normal 74-99 [facility] Comment on above: Performed By: #### 2 341-6 ####ANNETTE Foss ([id number])[facility])[address] [place] [address] Glucose [Mass/Vol] 97 mg/dL Normal 74-99 [facility] Comment on above: Performed By: #### 2 341-6 ####ANNETTE Foss ([id number])[facility])[address] [place] [address] Magnesiumon 10-12-2024 Magnesium [Mass/Vol] 2.03 mg/dL Normal 1.60-2.40 [facility] Comment on above: Performed By: #### 1 9123-9 ####ANNETTE Foss ([id number])[facility])[address] [place] [address] PT and aPTT panel Coag (PPP) on 10-12-2024 aPTT Coag (PPP) [Time] 54 s High 26-36 [facility] Comment on above: Order Comment: The A PTT is no longer used for monitoring Unfractionated Heparin Therapy. For monitoring Heparin Therapy, use the Heparin Assay. Performed By: #### 3 4529-8 ####ANNETTE Foss ([id number])[facility])[id number] [place] [address] INR Coag (PPP) [Relative time] 1.9 High 0.9-1.1 [facility] Comment on above: Order Comment: The A PTT is no longer used for monitoring Unfractionated Heparin Therapy. For monitoring Heparin Therapy, use the Heparin Assay. Performed By: #### 3 4529-8 ####ANNETTE Foss ([id number])[facility] ([facility])[id number] [place] [address] 37820 PT Coag (PPP) [Time] 20.7 s High 9.8-12.4 [facility] Comment on above: Order Comment: The A PTT is no longer used for monitoring Unfractionated Heparin Therapy. For monitoring Heparin Therapy, use the Heparin Assay. Performed By: #### 3 4529-8 ####ANNETTE Foss ([id number])[facility] ([facility])[id number] [place] [address] 70861 Renal function 2000 panelon 10-12-2024 Albumin BCP dye [Mass/Vol] 3.1 g/dL Low 3.4-5.0 [facility] Comment on above: Performed By: #### 2 4362-6 ####ANNETTE Foss ([id number])[facility] ([facility])[address] [place] [address] 41521 Anion gap [Moles/Vol] 9 mmol/L Low 10-20 [facility] Comment on above: Performed By: #### 2 4362-6 ####ANNETTE Foss ([id number])[facility] ([facility])[address] [place] [address] Calcium [Mass/Vol] 8.3 mg/dL Low 8.6-10.6 [facility] Comment on above: Performed By: #### 2 4362-6 ####ANNETTE Foss ([id number])[facility] ([facility])[address] [place] [address] Chloride [Moles/Vol] 103 mmol/L Normal 98-107 [facility] Comment on above: Performed By: #### 2 4362-6 ####ANNETTE GARCIA L ([id number])[facility] ([facility])[address] [place] [address] CO2 [Moles/Vol] 31 mmol/L Normal 21-32 [facility] Comment on above: Performed By: #### 2 4362-6 ####ANNETTE Foss ([id number])[facility] ([facility])[address] [place] [address] Creatinine [Mass/Vol] 0.80 mg/dL Normal 0.50-1.30 [facility] Comment on above: Performed By: #### 2 4362-6 ####ANNETTE GARCIA L ([id number])[facility] ([facility])[address] [place] [address] Glomerular filtration rate >90 Normal >60 [facility] Comment on above: Result Comment: Calc ulations of estimated GFR are performed using the 2020 CKD-EPI Study Refit equation without the race variable for the IDMS-Traceable creatinine methods.https://jasn.asnjournals.org/content// ASN.3358461127 Performed By: #### 2 4362-6 ####ANNETTE GARCIA L ([id number])[facility] ([facility])[address] [place] [address] Glucose [Mass/Vol] 91 mg/dL Normal 74-99 [facility] Comment on above: Performed By: #### 2 4362-6 ####ANNETTE Foss ([id number])[facility] ([facility])[address] [place] [address] Phosphate [Mass/Vol] 2.9 mg/dL Normal 2.5-4.9 [facility] Comment on above: Result Comment: MILD HEMOLYSIS DETECTED. The result may be falsely elevated due to hemolysis or other interferents. Clinical correlation is recommended. Repeat testing may be considered. Performed By: #### 2 4362-6 ####ANNETTE Foss ([id number])[facility] ([facility])[address] [place] [address] Potassium [Moles/Vol] 3.9 mmol/L Normal 3.5-5.3 [facility] Comment on above: Result Comment: MILD HEMOLYSIS DETECTED. The result may be falsely elevated due to hemolysis or other interferents. Clinical correlation is recommended. Repeat testing may be considered. Performed By: #### 2 4362-6 ####ANNETTE Foss (85868)[facility] ([facility])[address] [place] [address] Sodium [Moles/Vol] 139 mmol/L Normal 136-145 [facility] Comment on above: Performed By: #### 2 4362-6 ####ANNETTE oFss ([id number])[facility] ([facility])[address] [place] [address] Urea nitrogen [Mass/Vol] 25 mg/dL High 6-23 [facility] Comment on above: Performed By: #### 2 4362-6 ####ANNETTE Foss ([id number])[facility] ([facility])[address] [place] [address] XR CHEST 1 VIEWon 10-12-2024 XR CHEST 1 VIEW Normal [facility] CBC panel Auto (Bld)on 10-11 Erythrocyte distribution width (RBC) [Ratio] 16.7 % High 11.5-14.5 [facility] Comment on above: Performed By: #### 5 8410-2 ####ANNETTE Foss ([id number])[facility] ([facility])[address] [place] [address] Hematocrit (Bld) [Volume fraction] 35.0 % Low 41.0-52.0 [facility] Comment on above: Performed By: #### 5 8410-2 ####ANNETTE Foss ([id number])[facility] ([facility])[address] [place] [address] 57856 Hemoglobin (Bld) [Mass/Vol] 10.7 g/dL Low 13.5-17.5 [facility] Comment on above: Performed By: #### 5 8410-2 ####ANNETTE Foss ([id number])[facility] ([facility])[address] [place] [address] 15510 MCH (RBC) [Entitic mass] 28.0 pg Normal 26.0-34.0 [facility] Comment on above: Performed By: #### 5 8410-2 ####ANNETTE Foss ([id number])[facility] ([facility])[address] [place] [address] 78734 MCHC (RBC) [Mass/Vol] 30.6 g/dL Low 32.0-36.0 [facility] Comment on above: Performed By: #### 5 8410-2 ####ANNETTE Foss ([id number])[facility] ([facility])[address] [place] [address] 55368 MCV (RBC) [Entitic vol] 92 fL Normal 80-100 [facility] Comment on above: Performed By: #### 5 8410-2 ####ANNETTE Foss ([id number])[facility] ([facility])[address] [place] [address] 46899 Nucleated RBC/100 WBC (Bld) [Ratio] 0.0 /100 WBCs Normal 0.0-0.0 [facility] Comment on above: Performed By: #### 5 8410-2 ####ANNETTE Foss ([id number])[facility] ([facility])[address] [place] [address] 84202 Platelets (Bld) [#/Vol] 158 x10*3/uL Normal 150-450 [facility] Comment on above: Performed By: #### 5 8410-2 ####ANNETTE Foss ([id number])[facility] ([facility])[address] [place] [address] RBC (Bld) [#/Vol] 3.82 x10*6/uL Low 4.50-5.90 [facility] Comment on above: Performed By: #### 5 8410-2 ####ANNETTE Foss ([id number])[facility] ([facility])[address] [place] [address] WBC (Bld) [#/Vol] 12.3 x10*3/uL High 4.4-11.3 [facility] Comment on above: Performed By: #### 5 8410-2 ####ANNETTE Foss ([id number])[facility] ([facility])[address] [place] [address] 87427 Calcium.ionizedon 10-11-2024 Calcium.ionized (Bld) [Moles/Vol] 1.11 mmol/L Normal 1.1-1.33 [facility] Comment on above: Result Comment: The performance characteristics of ionized calcium testedin heparinized plasma or serum have been validated [facility].Testing on heparinized plasma or serum is not approved bythe FDA; however, such approval is not necessary. Performed By: #### 1 994-3 ####ANNETTE Foss ([id number])[facility] ([facility])[address] [place] [address] Coagulation surface inducedo n 10-11-2024 aPTT Coag (PPP) [Time] 51 s High 26-36 [facility] Comment on above: Order Comment: Obtai n two hours after any Bivalrudin or Argatroban dosage change. Nursing to release order.The APTT is no longer used for monitoring Unfractionated Heparin Therapy. For monitoring Heparin Therapy, use the Heparin Assay. Performed By: #### 1 4979-9 ####ANNETTE Foss ([id number])[facility] ([facility])[address] [place] [address] aPTT Coag (PPP) [Time] 48 s High 26-36 [facility] Comment on above: Order Comment: Obtai n two hours after any Bivalrudin or Argatroban dosage change. Nursing to release order.The APTT is no longer used for monitoring Unfractionated Heparin Therapy. For monitoring Heparin Therapy, use the Heparin Assay. Performed By: #### 1 4979-9 ####ANNETTE Foss ([id number])[facility] ([facility])[address] [place] [address] Glucose Test strip manual (B ld) [Mass/Vol]on 10-11-2024 Glucose [Mass/Vol] 101 mg/dL High 74-99 [facility] Comment on above: Performed By: #### 2 341-6 ####ANNETTE Foss ([id number])[facility] ([facility])[address] [place] [address] Glucose [Mass/Vol] 100 mg/dL High 74-99 [facility] Comment on above: Performed By: #### 2 341-6 ####ANNETTE Foss ([id number])[facility] ([facility])[address] [place] [address] Glucose [Mass/Vol] 106 mg/dL High 74-99 [facility] Comment on above: Performed By: #### 2 341-6 ####ANNETTE Foss ([id number])[facility] ([facility])[address] [place] [address] Glucose [Mass/Vol] 67 mg/dL Low 74-99 [facility] Comment on above: Performed By: #### 2 341-6 ####ANNETTE Foss ([id number])[facility] ([facility])[address] [place] [address] Glucose [Mass/Vol] 66 mg/dL Low 74-99 [facility] Comment on above: Performed By: #### 2 341-6 ####ANNETTE Foss ([id number])[facility] ([facility])[address] [place] [address] Glucose [Mass/Vol] 105 mg/dL High 74-99 [facility] Comment on above: Performed By: #### 2 341-6 ####ANNETTE Foss ([id number])[facility] ([facility])[address] [place] [address] Glucose [Mass/Vol] 109 mg/dL High 74-99 [facility] Comment on above: Performed By: #### 2 341-6 ####ANNETTE Foss ([id number])[facility] ([facility])[address] [place] [address] 09490 Magnesiumon 10-11-2024 Magnesium [Mass/Vol] 2.07 mg/dL Normal 1.60-2.40 [facility] Comment on above: Performed By: #### 1 9123-9 ####ANNETTE Foss ([id number])[facility] ([facility])[address] [place] [address] 87261 PT and aPTT panel Coag (PPP) on 10-11-2024 aPTT Coag (PPP) [Time] 40 s High 26-36 [facility] Comment on above: Order Comment: The A PTT is no longer used for monitoring Unfractionated Heparin Therapy. For monitoring Heparin Therapy, use the Heparin Assay. Performed By: #### 3 4529-8 ####ANNETTE Foss ([id number])[facility] ([facility])[address] [place] [address] INR Coag (PPP) [Relative time] 1.8 High 0.9-1.1 [facility] Comment on above: Order Comment: The A PTT is no longer used for monitoring Unfractionated Heparin Therapy. For monitoring Heparin Therapy, use the Heparin Assay. Performed By: #### 3 4529-8 ####ANNETTE Foss ([id number])[facility] ([facility])[address] [place] [address] 54823 PT Coag (PPP) [Time] 20.1 s High 9.8-12.4 [facility] Comment on above: Order Comment: The A PTT is no longer used for monitoring Unfractionated Heparin Therapy. For monitoring Heparin Therapy, use the Heparin Assay. Performed By: #### 3 4529-8 ####ANNETTE Foss ([id number])[facility] ([facility])[address] [place] [address] Renal function 2000 panelon 10-11-2024 Albumin BCP dye [Mass/Vol] 3.2 g/dL Low 3.4-5.0 [facility] Comment on above: Performed By: #### 2 4362-6 ####ANNETTE Foss ([id number])[facility] ([facility])[address] [place] [address] Anion gap [Moles/Vol] 11 mmol/L Normal 10-20 [facility] Comment on above: Performed By: #### 2 4362-6 ####ANNETTE Foss ([id number])[facility] ([facility])[address] [place] [address] Calcium [Mass/Vol] 8.2 mg/dL Low 8.6-10.6 [facility] Comment on above: Performed By: #### 2 4362-6 ####ANNETTE Foss (54459)[facility] ([facility])[address] [place] [address] Chloride [Moles/Vol] 105 mmol/L Normal 98-107 [facility] Comment on above: Performed By: #### 2 4362-6 ####ANNETTE GARCIA L ([id number])[facility] ([facility])[address] [place] [address] CO2 [Moles/Vol] 29 mmol/L Normal 21-32 [facility] Comment on above: Performed By: #### 2 4362-6 ####ANNETTE Foss ([id number])[facility] ([facility])[address] [place] [address] Creatinine [Mass/Vol] 0.90 mg/dL Normal 0.50-1.30 [facility] Comment on above: Performed By: #### 2 4362-6 ####ANNETTE Foss ([id number])[facility] ([facility])[address] [place] [address] Glomerular filtration rate 89 mL/min/1.73m*2 Normal >60 [facility] Comment on above: Result Comment: Calc ulations of estimated GFR are performed using the 2020 CKD-EPI Study Refit equation without the race variable for the IDMS-Traceable creatinine methods.https://jasn.asnjournals.org/content/early/ ASN.7816620033 Performed By: #### 2 4362-6 ####ANNETTE Foss ([id number])[facility] ([facility])[address] [place] [address] Glucose [Mass/Vol] 109 mg/dL High 74-99 [facility] Comment on above: Performed By: #### 2 4362-6 ####ANNETTE Foss (26143)[facility] ([facility])[address] [place] [address] Phosphate [Mass/Vol] 4.3 mg/dL Normal 2.5-4.9 [facility] Comment on above: Result Comment: MILD HEMOLYSIS DETECTED. The result may be falsely elevated due to hemolysis or other interferents. Clinical correlation is recommended. Repeat testing may be considered. Performed By: #### 2 4362-6 ####ANNETTE GARCIA L (15014)[facility] ([facility])[address] [place] [address] Potassium [Moles/Vol] 4.1 mmol/L Normal 3.5-5.3 [facility] Comment on above: Result Comment: MILD HEMOLYSIS DETECTED. The result may be falsely elevated due to hemolysis or other interferents. Clinical correlation is recommended. Repeat testing may be considered. Performed By: #### 2 4362-6 ####ANNETTE Foss ([id number])[facility] ([facility])[address] [place] [address] Sodium [Moles/Vol] 141 mmol/L Normal 136-145 [facility] Comment on above: Performed By: #### 2 4362-6 ####ANNETTE Foss ([id number])[facility] ([facility])[address] [place] [address] Urea nitrogen [Mass/Vol] 33 mg/dL High 6-23 [facility] Comment on above: Performed By: #### 2 4362-6 ####ANNETTE Foss ([id number])[facility] ([facility])[address] [place] [address] XR CHEST 1 VIEWon 10-11-2024 XR CHEST 1 VIEW Normal [facility] Blood type and Indirect anti body screen panel (Bld)on 10-10-2024 ABO group Nom (Bld) A Normal [facility] Comment on above: Performed By: #### 3 4532-2 ####ANNETTE Foss ([id number])[facility] ([facility])[address] [place] [address] Blood group antibody screen Ql Negative [facility] Comment on above: Performed By: #### 3 4532-2 ####ANNETTE Foss ([id number])[facility] ([facility])[address] [place] [address] D Ag Ql (Bld) Positive [facility] Comment on above: Performed By: #### 3 4532-2 ####ANNETTE Foss ([id number])[facility] ([facility])[address] [place] [address] CBC panel Auto (Bld)on 10-10 Erythrocyte distribution width (RBC) [Ratio] 16.6 % High 11.5-14.5 [facility] Comment on above: Performed By: #### 5 8410-2 ####ANNETTE Foss ([id number])[facility] ([facility])[address] [place] [address] Hematocrit (Bld) [Volume fraction] 35.3 % Low 41.0-52.0 [facility] Comment on above: Performed By: #### 5 8410-2 ####ANNETTE Foss ([id number])[facility] ([facility])[address] [place] [address] Hemoglobin (Bld) [Mass/Vol] 11.4 g/dL Low 13.5-17.5 [facility] Comment on above: Performed By: #### 5 8410-2 ####ANNETTE Foss ([id number])[facility] ([facility])[address] [place] [address] 98240 MCH (RBC) [Entitic mass] 28.9 pg Normal 26.0-34.0 [facility] Comment on above: Performed By: #### 5 8410-2 ####ANNETTE Foss ([id number])[facility] ([facility])[address] [place] [address] 36322 MCHC (RBC) [Mass/Vol] 32.3 g/dL Normal 32.0-36.0 [facility] Comment on above: Performed By: #### 5 8410-2 ####ANNETTE Foss ([id number])[facility] ([facility])[address] [place] [address] 65335 MCV (RBC) [Entitic vol] 90 fL Normal 80-100 [facility] Comment on above: Performed By: #### 5 8410-2 ####ANNETTE Foss ([id number])[facility] ([facility])[address] [place] [address] 63894 Nucleated RBC/100 WBC (Bld) [Ratio] 0.0 /100 WBCs Normal 0.0-0.0 [facility] Comment on above: Performed By: #### 5 8410-2 ####ANNETTE Foss ([id number])[facility] ([facility])[address] [place] [address] 11284 Platelets (Bld) [#/Vol] 156 x10*3/uL Normal 150-450 [facility] Comment on above: Performed By: #### 5 8410-2 ####ANNETTE Foss ([id number])[facility] ([facility])[address] [place] [address] 73684 RBC (Bld) [#/Vol] 3.94 x10*6/uL Low 4.50-5.90 [facility] Comment on above: Performed By: #### 5 8410-2 ####ANNETTE Foss ([id number])[facility] ([facility])[address] [place] [address] 13277 WBC (Bld) [#/Vol] 14.2 x10*3/uL High 4.4-11.3 [facility] Comment on above: Performed By: #### 5 8410-2 ####ANNETTE Foss ([id number])[facility] ([facility])[address] [place] [address] 16283 Erythrocyte distribution width (RBC) [Ratio] 16.4 % High 11.5-14.5 [facility] Comment on above: Performed By: #### 5 8410-2 ####ANNETTE Foss ([id number])[facility] ([facility])[address] [place] [address] 99384 Hematocrit (Bld) [Volume fraction] 34.5 % Low 41.0-52.0 [facility] Comment on above: Performed By: #### 5 8410-2 ####ANNETTE Foss ([id number])[facility] ([facility])[address] [place] [address] 35065 Hemoglobin (Bld) [Mass/Vol] 10.8 g/dL Low 13.5-17.5 [facility] Comment on above: Performed By: #### 5 8410-2 ####ANNETTE Foss (47354)[facility] ([facility])[address] [place] [address] 72710 MCH (RBC) [Entitic mass] 28.4 pg Normal 26.0-34.0 [facility] Comment on above: Performed By: #### 5 8410-2 ####ANNETTE Foss ([id number])[facility] ([facility])[address] [place] [address] MCHC (RBC) [Mass/Vol] 31.3 g/dL Low 32.0-36.0 [facility] Comment on above: Performed By: #### 5 8410-2 ####ANNETTE Foss ([id number])[facility] ([facility])[address] [place] [address] MCV (RBC) [Entitic vol] 91 fL Normal 80-100 [facility] Comment on above: Performed By: #### 5 8410-2 ####ANNETTE Foss (49053)[facility] ([facility])[address] [place] [address] 57134 Nucleated RBC/100 WBC (Bld) [Ratio] 0.0 /100 WBCs Normal 0.0-0.0 [facility] Comment on above: Performed By: #### 5 8410-2 ####ANNETTE Foss (60871)[facility] ([facility])[address] [place] [address] Platelets (Bld) [#/Vol] 150 x10*3/uL Normal 150-450 [facility] Comment on above: Performed By: #### 5 8410-2 ####ANNETTE Foss ([id number])[facility] ([facility])[address] [place] [address] RBC (Bld) [#/Vol] 3.80 x10*6/uL Low 4.50-5.90 [facility] Comment on above: Performed By: #### 5 8410-2 ####ANNETTE Foss ([id number])[facility] ([facility])[address] [place] [address] WBC (Bld) [#/Vol] 14.7 x10*3/uL High 4.4-11.3 [facility] Comment on above: Performed By: #### 5 8410-2 ####ANNETTE Foss ([id number])[facility] ([facility])[address] [place] [address] Calcium.ionizedon 10-10-2024 Calcium.ionized (Bld) [Moles/Vol] 1.12 mmol/L Normal 1.1-1.33 [facility] Comment on above: Result Comment: The performance characteristics of ionized calcium testedin heparinized plasma or serum have been validated by [facility] is [facility].Testing on heparinized plasma or serum is not approved [facility]; however, such approval is not necessary. Performed By: #### 1 994-3 ####ANNETTE Foss ([id number])[facility] ([facility])[address] [place] [address] 11055 Glucose Test strip manual (B ld) [Mass/Vol]on 10-10-2024 Glucose [Mass/Vol] 82 mg/dL Normal 74-99 [facility] Comment on above: Performed By: #### 2 341-6 ####ANNETTE Foss ([id number])[facility] ([facility])[address] [place] [address] Glucose [Mass/Vol] 71 mg/dL Low -99 [facility] Comment on above: Performed By: #### 2 341-6 ####ANNETTE Foss ([id number])[facility] ([facility])[address] [place] [address] Glucose [Mass/Vol] 87 mg/dL Normal 74-99 [facility] Comment on above: Performed By: #### 2 341-6 ####ANNETTE Foss ([id number])[facility] ([facility])[address] [place] [address] 95858 Glucose [Mass/Vol] 123 mg/dL High 74-99 [facility] Comment on above: Performed By: #### 2 341-6 ####ANNETTE Foss (54392)[facility] ([facility])[address] [place] [address] Glucose [Mass/Vol] 67 mg/dL Low 74-99 [facility] Comment on above: Performed By: #### 2 341-6 ####ANNETTE Foss ([id number])[facility] ([facility])[address] [place] [address] Glucose [Mass/Vol] 100 mg/dL High 74-99 [facility] Comment on above: Performed By: #### 2 341-6 ####ANNETTE Foss ([id number])[facility] ([facility])[address] [place] [address] Glucose [Mass/Vol] 82 mg/dL Normal 74-99 [facility] Comment on above: Performed By: #### 2 341-6 ####ANNETTE Foss ([id number])[facility] ([facility])[address] [place] [address] Magnesiumon 10-10-2024 Magnesium [Mass/Vol] 2.12 mg/dL Normal 1.60-2.40 [facility] Comment on above: Performed By: #### 1 9123-9 ####ANNETTE Foss (78026)[facility] ([facility])[address] [place] [address] Magnesium [Mass/Vol] 2.19 mg/dL Normal 1.60-2.40 [facility] Comment on above: Performed By: #### 1 9123-9 ####ANNETTE Foss ([id number])[facility] ([facility])[address] [place] [address] PT and aPTT panel Coag (PPP) on 10-10-2024 aPTT Coag (PPP) [Time] 61 s High 26-36 [facility] Comment on above: Order Comment: The A PTT is no longer used for monitoring Unfractionated Heparin Therapy. For monitoring Heparin Therapy, use the Heparin Assay. Performed By: #### 3 4529-8 ####ANNETTE Foss ([id number])[facility] ([facility])[address] [place] [address] INR Coag (PPP) [Relative time] 2.1 High 0.9-1.1 [facility] Comment on above: Order Comment: The A PTT is no longer used for monitoring Unfractionated Heparin Therapy. For monitoring Heparin Therapy, use the Heparin Assay. Performed By: #### 3 4529-8 ####ANNETTE Foss ([id number])[facility] ([facility])[id number] [place] [address] PT Coag (PPP) [Time] 22.8 s High 9.8-12.4 [facility] Comment on above: Order Comment: The A PTT is no longer used for monitoring Unfractionated Heparin Therapy. For monitoring Heparin Therapy, use the Heparin Assay. Performed By: #### 3 4529-8 ####ANNETTE Foss ([id number])[facility] ([facility])[address] [place] [id number] Renal function 2000 panelon 10-10-2024 Albumin BCP dye [Mass/Vol] 3.4 g/dL Normal 3.4-5.0 [facility] Comment on above: Performed By: #### 2 4362-6 ####ANNETTE Foss ([id number])[facility] ([facility])[id number] [place] [address] Anion gap [Moles/Vol] 10 mmol/L Normal 10-20 [facility] Comment on above: Performed By: #### 2 4362-6 ####ANNETTE Foss ([id number])[facility] ([facility])[id number] [place] [address] Calcium [Mass/Vol] 7.9 mg/dL Low 8.6-10.6 [facility] Comment on above: Performed By: #### 2 4362-6 ####ANNETTE Foss ([id number])[facility] ([facility])[id number] [place] [address] Chloride [Moles/Vol] 106 mmol/L Normal 98-107 [facility] Comment on above: Performed By: #### 2 4362-6 ####ANNETTE GARCIA L ([id number])[facility] ([facility])[address] [place] [address] CO2 [Moles/Vol] 30 mmol/L Normal 21-32 [facility] Comment on above: Performed By: #### 2 4362-6 ####ANNETTE GARCIA L ([id number])[facility] ([facility])[address] [place] [address] Creatinine [Mass/Vol] 0.79 mg/dL Normal 0.50-1.30 [facility] Comment on above: Performed By: #### 2 4362-6 ####ANNETTE GARCIA L ([id number])[facility] ([facility])[address] [place] [address] Glomerular filtration rate >90 Normal >60 [facility] Comment on above: Result Comment: Calc ulations of estimated GFR are performed using the 2020 CKD-EPI Study Refit equation without the race variable for the IDMS-Traceable creatinine methods.https://jasn.asnjournals.org/content// ASN.2000298593 Performed By: #### 2 4362-6 ####ANNETTE Foss ([id number])[facility] ([facility])[address] [place] [address] Glucose [Mass/Vol] 71 mg/dL Low 74-99 [facility] Comment on above: Performed By: #### 2 4362-6 ####ANNETTE GARCIA L ([id number])[facility] ([facility])[address] [place] [address] Phosphate [Mass/Vol] 2.0 mg/dL Low 2.5-4.9 [facility] Comment on above: Result Comment: MILD HEMOLYSIS DETECTED. The result may be falsely elevated due to hemolysis or other interferents. Clinical correlation is recommended. Repeat testing may be considered. Performed By: #### 2 4362-6 ####ANNETTE Foss ([id number])[facility] ([facility])[address] [place] [address] Potassium [Moles/Vol] 3.7 mmol/L Normal 3.5-5.3 [facility] Comment on above: Result Comment: MILD HEMOLYSIS DETECTED. The result may be falsely elevated due to hemolysis or other interferents. Clinical correlation is recommended. Repeat testing may be considered. Performed By: #### 2 4362-6 ####ANNETTE GARCIA L ([id number])[facility] ([facility])[address] [place] [address] Sodium [Moles/Vol] 142 mmol/L Normal 136-145 [facility] Comment on above: Performed By: #### 2 4362-6 ####ANNETTE GARCIA L ([id number])[facility] ([facility])[address] [place] [address] Urea nitrogen [Mass/Vol] 37 mg/dL High 6-23 [facility] Comment on above: Performed By: #### 2 4362-6 ####ANNETTE GARCIA L ([id number])[facility] ([facility])[address] [place] [address] Albumin BCP dye [Mass/Vol] 3.5 g/dL Normal 3.4-5.0 [facility] Comment on above: Performed By: #### 2 4362-6 ####ANNETTE ELIZABETHER L ([id number])[facility] ([facility])[address] [place] [address] Anion gap [Moles/Vol] 9 mmol/L Low 10-20 [facility] Comment on above: Performed By: #### 2 4362-6 ####ANNETTE ELIZABETHER L (36092)[facility] ([facility])[address] [place] [address] Calcium [Mass/Vol] 8.2 mg/dL Low 8.6-10.6 [facility] Comment on above: Performed By: #### 2 4362-6 ####ANNETTE YEBOAHMOERIER L ([id number])[facility] ([facility])[address] [place] [address] Chloride [Moles/Vol] 105 mmol/L Normal 98-107 [facility] Comment on above: Performed By: #### 2 4362-6 ####ANNETTE ELIZABETHER L ([id number])[facility] ([facility])[address] [place] [address] CO2 [Moles/Vol] 31 mmol/L Normal 21-32 [facility] Comment on above: Performed By: #### 2 4362-6 ####ANNETTE GARCIA L ([id number])[facility] ([facility])[address] [place] [address] Creatinine [Mass/Vol] 0.99 mg/dL Normal 0.50-1.30 [facility] Comment on above: Performed By: #### 2 4362-6 ####ANNETTE GARCIA L ([id number])[facility] ([facility])[address] [place] [address] Glomerular filtration rate 79 mL/min/1.73m*2 Normal >60 [facility] Comment on above: Result Comment: Calc ulations of estimated GFR are performed using the 2020 CKD-EPI Study Refit equation without the race variable for the IDMS-Traceable creatinine methods.https://jasn.asnjournals.org/content// ASN.4341254801 Performed By: #### 2 4362-6 ####ANNETTE GARCIA L ([id number])[facility] ([facility])[address] [place] [address] Glucose [Mass/Vol] 99 mg/dL Normal 74-99 [facility] Comment on above: Performed By: #### 2 4362-6 ####ANNETTE GARCIA L ([id number])[facility] ([facility])[address] [place] [address] Phosphate [Mass/Vol] 2.6 mg/dL Normal 2.5-4.9 [facility] Comment on above: Result Comment: MILD HEMOLYSIS DETECTED. The result may be falsely elevated due to hemolysis or other interferents. Clinical correlation is recommended. Repeat testing may be considered. Performed By: #### 2 4362-6 ####ANNETTE Foss ([id number])[facility] ([facility])[address] [place] [address] Potassium [Moles/Vol] 3.9 mmol/L Normal 3.5-5.3 [facility] Comment on above: Result Comment: MILD HEMOLYSIS DETECTED. The result may be falsely elevated due to hemolysis or other interferents. Clinical correlation is recommended. Repeat testing may be considered. Performed By: #### 2 4362-6 ####ANNETTE Foss ([id number])[facility] ([facility])[address] [place] [address] Sodium [Moles/Vol] 141 mmol/L Normal 136-145 [facility] Comment on above: Performed By: #### 2 4362-6 ####ANNETTE Foss ([id number])[facility] ([facility])[address] [place] [address]6839 Urea nitrogen [Mass/Vol] 39 mg/dL High 6-23 [facility] Comment on above: Performed By: #### 2 4362-6 ####ANNETTE Foss ([id number])[facility] ([facility])[address] [place] [address] 909[address] CBC panel Auto (Bld)on 10-09 Erythrocyte distribution width (RBC) [Ratio] 16.4 % High 11.5-14.5 [facility] Comment on above: Performed By: #### 5 8410-2 ####ANNETTE Foss ([id number])[facility] ([facility])[address] [place] [address] Hematocrit (Bld) [Volume fraction] 34.1 % Low 41.0-52.0 [facility] Comment on above: Performed By: #### 5 8410-2 ####ANNETTE Foss ([id number])[facility] ([facility])[address] [place] [address] Hemoglobin (Bld) [Mass/Vol] 10.9 g/dL Low 13.5-17.5 [facility] Comment on above: Performed By: #### 5 8410-2 ####ANNETTE Foss ([id number])[facility] ([facility])[address] [place] [address] MCH (RBC) [Entitic mass] 29.1 pg Normal 26.0-34.0 [facility] Comment on above: Performed By: #### 5 8410-2 ####ANNETTE Foss ([id number])[facility] ([facility])[address] [place] [address] MCHC (RBC) [Mass/Vol] 32.0 g/dL Normal 32.0-36.0 [facility] Comment on above: Performed By: #### 5 8410-2 ####ANNETTE Foss ([id number])[facility] ([facility])[address] [place] [address] MCV (RBC) [Entitic vol] 91 fL Normal 80-100 [facility] Comment on above: Performed By: #### 5 8410-2 ####ANNETTE Foss (50507)[facility] ([facility])[address] [place] [address] 57665 Nucleated RBC/100 WBC (Bld) [Ratio] 0.0 /100 WBCs Normal 0.0-0.0 [facility] Comment on above: Performed By: #### 5 8410-2 ####ANNETTE Foss (80914)[facility] ([facility])[address] [place] [address] Platelets (Bld) [#/Vol] 101 x10*3/uL Low 150-450 [facility] Comment on above: Performed By: #### 5 8410-2 ####ANNETTE Foss (32714)[facility] ([facility])[address] [place] [address] RBC (Bld) [#/Vol] 3.75 x10*6/uL Low 4.50-5.90 [facility] Comment on above: Performed By: #### 5 8410-2 ####ANNETTE Foss ([id number])[facility] ([facility])[address] [place] [address] WBC (Bld) [#/Vol] 12.2 x10*3/uL High 4.4-11.3 [facility] Comment on above: Performed By: #### 5 8410-2 ####ANNETTE Foss ([id number])[facility] ([facility])[address] [place] [address] Erythrocyte distribution width (RBC) [Ratio] 16.1 % High 11.5-14.5 [facility] Comment on above: Performed By: #### 5 8410-2 ####ANNETTE Foss (39607)[facility] ([facility])[address] [place] [address] Hematocrit (Bld) [Volume fraction] 36.4 % Low 41.0-52.0 [facility] Comment on above: Performed By: #### 5 8410-2 ####ANNETTE Foss (95126)[facility] ([facility])[address] [place] [address] Hemoglobin (Bld) [Mass/Vol] 11.4 g/dL Low 13.5-17.5 [facility] Comment on above: Performed By: #### 5 8410-2 ####ANNETTE Foss ([id number])[facility] ([facility])[address] [place] [address] MCH (RBC) [Entitic mass] 28.9 pg Normal 26.0-34.0 [facility] Comment on above: Performed By: #### 5 8410-2 ####ANNETTE Foss ([id number])[facility] ([facility])[address] [place] [address] MCHC (RBC) [Mass/Vol] 31.3 g/dL Low 32.0-36.0 [facility] Comment on above: Performed By: #### 5 8410-2 ####ANNETTE Foss ([id number])[facility] ([facility])[address] [place] [address]74 MCV (RBC) [Entitic vol] 92 fL Normal 80-100 [facility] Comment on above: Performed By: #### 5 8410-2 ####ANNETTE Foss ([id number])[facility] ([facility])[address] [place] [address] 60536 Nucleated RBC/100 WBC (Bld) [Ratio] 0.0 /100 WBCs Normal 0.0-0.0 [facility] Comment on above: Performed By: #### 5 8410-2 ####ANNETTE Foss ([id number])[facility] ([facility])[address] [place] [address] 48201 Platelets (Bld) [#/Vol] 92 x10*3/uL Low 150-450 [facility] Comment on above: Performed By: #### 5 8410-2 ####ANNETTE Foss ([id number])[facility] ([facility])[address] [place] [address] 75543 RBC (Bld) [#/Vol] 3.95 x10*6/uL Low 4.50-5.90 [facility] Comment on above: Performed By: #### 5 8410-2 ####ANNETTE Foss ([id number])[facility] ([facility])[address] [place] [address]376 WBC (Bld) [#/Vol] 13.1 x10*3/uL High 4.4-11.3 [facility] Comment on above: Performed By: #### 5 8410-2 ####ANNTETE Foss ([id number])[facility] ([facility])[address] [place] [address]01 Calcium.ionizedon 10-09-2024 Calcium.ionized (Bld) [Moles/Vol] 1.16 mmol/L Normal 1.1-1.33 [facility] Comment on above: Result Comment: The performance characteristics of ionized calcium testedin heparinized plasma or serum have been validated [facility].Testing on heparinized plasma or serum is not approved bythe FDA; however, such approval is not necessary. Performed By: #### 1 994-3 ####ANNETTE Foss ([id number])[facility] ([facility])[address] [place] [address] Coagulation surface inducedo n 10-09-2024 aPTT Coag (PPP) [Time] 48 s High 26-36 [facility] Comment on above: Order Comment: Obtai n two hours after any Bivalrudin or Argatroban dosage change. Nursing to release order.The APTT is no longer used for monitoring Unfractionated Heparin Therapy. For monitoring Heparin Therapy, use the Heparin Assay. Performed By: #### 1 4979-9 ####ANNETTE Foss ([id number])[facility] ([facility])[address] [place] [address] 689[address] aPTT Coag (PPP) [Time] 51 s High 26-36 [facility] Comment on above: Order Comment: Obtai n two hours after any Bivalrudin or Argatroban dosage change. Nursing to release order.The APTT is no longer used for monitoring Unfractionated Heparin Therapy. For monitoring Heparin Therapy, use the Heparin Assay. Performed By: #### 1 4979-9 ####ANNETTE Foss ([id number])[facility] ([facility])[address] [place] [address] 73301 aPTT Coag (PPP) [Time] 46 s High 26-36 [facility] Comment on above: Order Comment: Obtai n two hours after any Bivalrudin or Argatroban dosage change. Nursing to release order.The APTT is no longer used for monitoring Unfractionated Heparin Therapy. For monitoring Heparin Therapy, use the Heparin Assay. Performed By: #### 1 4979-9 ####ANNETTE Foss ([id number])[facility] ([facility])[address] [place] [address] 01969 aPTT Coag (PPP) [Time] 31 s Normal 26-36 [facility] Comment on above: Order Comment: Obtai n two hours after any Bivalrudin or Argatroban dosage change. Nursing to release order.The APTT is no longer used for monitoring Unfractionated Heparin Therapy. For monitoring Heparin Therapy, use the Heparin Assay. Performed By: #### 1 4979-9 ####ANNETTE Foss ([id number])[facility] ([facility])[address] [place] [address] 48782 Glucose Test strip manual (B ld) [Mass/Vol]on 10-09-2024 Glucose [Mass/Vol] 134 mg/dL High [address] [place] [address] Comment on above: Performed By: #### 2 341-6 ####ANNETTE Foss ([id number])[facility] ([facility])[address] [place] [address] 59668 Glucose [Mass/Vol] 121 mg/dL High [address] [place] [address] Comment on above: Performed By: #### 2 341-6 ####ANNETTE Foss ([id number])[facility] ([facility])[address] [place] [address] Glucose [Mass/Vol] 123 mg/dL High [address] [place] [address] Comment on above: Performed By: #### 2 341-6 ####ANNETTE Foss ([id number])[facility] ([facility])[address] [place] [address] Glucose [Mass/Vol] 93 mg/dL Normal [address] [place] [address] Comment on above: Performed By: #### 2 341-6 ####ANNETTE Foss ([id number])[facility] ([facility])[address] [place] [address] Glucose [Mass/Vol] 86 mg/dL Normal [address] [place] [address] Comment on above: Performed By: #### 2 341-6 ####ANNETTE Foss ([id number])[facility] ([facility])[address] [place] [address] Magnesiumon 10-09-2024 Magnesium [Mass/Vol] 2.32 mg/dL Normal 1.60-2.40 [facility] Comment on above: Performed By: #### 1 9123-9 ####ANNETTE Foss ([id number])[facility] ([facility])[address] [place] [address] Magnesium [Mass/Vol] 2.28 mg/dL Normal 1.60-2.40 [facility] Comment on above: Performed By: #### 1 9123-9 ####ANNETTE Foss ([id number])[facility] ([facility])[address] [place] [address]85[address] PT and aPTT panel Coag (PPP) on 10-09-2024 aPTT Coag (PPP) [Time] 33 s Normal 26-36 [facility] Comment on above: Order Comment: The A PTT is no longer used for monitoring Unfractionated Heparin Therapy. For monitoring Heparin Therapy, use the Heparin Assay. Performed By: #### 3 4529-8 ####ANNETTE Foss ([id number])[facility] ([facility])[address] [place] [address] 35433 INR Coag (PPP) [Relative time] 1.6 High 0.9-1.1 [facility] Comment on above: Order Comment: The A PTT is no longer used for monitoring Unfractionated Heparin Therapy. For monitoring Heparin Therapy, use the Heparin Assay. Performed By: #### 3 4529-8 ####ANNETTE Foss ([id number])[facility] ([facility])[address] [place] [address] 79818 PT Coag (PPP) [Time] 18.1 s High 9.8-12.4 [facility] Comment on above: Order Comment: The A PTT is no longer used for monitoring Unfractionated Heparin Therapy. For monitoring Heparin Therapy, use the Heparin Assay. Performed By: #### 3 4529-8 ####ANNETTE Foss ([id number])[facility] ([facility])[address] [place] [address] Renal function 2000 panelon 10-09-2024 Albumin BCP dye [Mass/Vol] 3.3 g/dL Low 3.4-5.0 [facility] Comment on above: Performed By: #### 2 4362-6 ####ANNETTE Foss ([id number])[facility])[address] [place] [address] Anion gap [Moles/Vol] 10 mmol/L Normal 10-20 [facility] Comment on above: Performed By: #### 2 4362-6 ####ANNETTE Foss ([id number])[facility])[address] [place] [address] Calcium [Mass/Vol] 8.4 mg/dL Low 8.6-10.6 [facility] Comment on above: Performed By: #### 2 4362-6 ####ANNETTE Foss ([id number])[facility] ([facility])[address] [place] [address] Chloride [Moles/Vol] 104 mmol/L Normal 98-107 [facility] Comment on above: Performed By: #### 2 4362-6 ####ANNETTE Foss ([id number])[facility])[address] [place] [address] CO2 [Moles/Vol] 31 mmol/L Normal 21-32 [facility] Comment on above: Performed By: #### 2 4362-6 ####ANNETTE GARCIA L ([id number])[facility])[address] [place] [address] Creatinine [Mass/Vol] 1.04 mg/dL Normal 0.50-1.30 [facility] Comment on above: Performed By: #### 2 4362-6 ####ANNETTE Foss ([id number])[facility] ([facility])[address] [place] [address] Glomerular filtration rate 75 mL/min/1.73m*2 Normal >60 [facility] Comment on above: Result Comment: Calc ulations of estimated GFR are performed using the 2020 CKD-EPI Study Refit equation without the race variable for the IDMS-Traceable creatinine methods.https://jasn.asnjournals.org/content/early// ASN.0474981305 Performed By: #### 2 4362-6 ####ANNETTE Foss ([id number])[facility] ([facility])[address] [place] [address] Glucose [Mass/Vol] 131 mg/dL High 74-99 [facility] Comment on above: Performed By: #### 2 4362-6 ####ANNETTE Foss ([id number])[facility] ([facility])[address] [place] [address] Phosphate [Mass/Vol] 2.8 mg/dL Normal 2.5-4.9 [facility] Comment on above: Result Comment: MILD HEMOLYSIS DETECTED. The result may be falsely elevated due to hemolysis or other interferents. Clinical correlation is recommended. Repeat testing may be considered. Performed By: #### 2 4362-6 ####ANNETTE Foss ([id number])[facility] ([facility])[address] [place] [address] Potassium [Moles/Vol] 3.9 mmol/L Normal 3.5-5.3 [facility] Comment on above: Result Comment: MILD HEMOLYSIS DETECTED. The result may be falsely elevated due to hemolysis or other interferents. Clinical correlation is recommended. Repeat testing may be considered. Performed By: #### 2 4362-6 ####ANNETTE RAMSEYTZVISHNU L (58283)[facility] ([facility])[address] [place] [address] Sodium [Moles/Vol] 141 mmol/L Normal 136-145 [facility] Comment on above: Performed By: #### 2 4362-6 ####ANNETTE GARCIA L ([id number])[facility])[address] [place] [address] Urea nitrogen [Mass/Vol] 40 mg/dL High 6-23 [facility] Comment on above: Performed By: #### 2 4362-6 ####ANNETTE Foss ([id number])[facility])[address] [place] [address] Albumin BCP dye [Mass/Vol] 3.5 g/dL Normal 3.4-5.0 [facility] Comment on above: Performed By: #### 2 4362-6 ####ANNETTE Foss ([id number])[facility])[address] [place] [address] Anion gap [Moles/Vol] 12 mmol/L Normal 10-20 [facility] Comment on above: Performed By: #### 2 4362-6 ####ANNETTE Foss ([id number])[facility])[address] [place] [address] Calcium [Mass/Vol] 8.6 mg/dL Normal 8.6-10.6 [facility] Comment on above: Performed By: #### 2 4362-6 ####ANNETTE Foss ([id number])[facility] ([facility])[address] [place] [address] Chloride [Moles/Vol] 104 mmol/L Normal 98-107 [facility] Comment on above: Performed By: #### 2 4362-6 ####ANNETTE Foss ([id number])[facility] ([facility])[address] [place] [address] CO2 [Moles/Vol] 30 mmol/L Normal 21-32 [facility] Comment on above: Performed By: #### 2 4362-6 ####ANNETTE Foss ([id number])[facility])[address] [place] [address] Creatinine [Mass/Vol] 1.10 mg/dL Normal 0.50-1.30 [facility] Comment on above: Performed By: #### 2 4362-6 ####ANNETTE GARCIA L ([id number])[facility] ([facility])[address] [place] [address] Glomerular filtration rate 70 mL/min/1.73m*2 Normal >60 [facility] Comment on above: Result Comment: Calc ulations of estimated GFR are performed using the 2020 CKD-EPI Study Refit equation without the race variable for the IDMS-Traceable creatinine methods.https://jasn.asnjournals.org/content/early// ASN.3223584998 Performed By: #### 2 4362-6 ####ANNETTE GARCIA L ([id number])[facility])[address] [place] [address] Glucose [Mass/Vol] 96 mg/dL Normal 74-99 [facility] Comment on above: Performed By: #### 2 4362-6 ####ANNETTE GARCIA L ([id number])[facility])[address] [place] [address] Phosphate [Mass/Vol] 3.2 mg/dL Normal 2.5-4.9 [facility] Comment on above: Result Comment: MILD HEMOLYSIS DETECTED. The result may be falsely elevated due to hemolysis or other interferents. Clinical correlation is recommended. Repeat testing may be considered. Performed By: #### 2 4362-6 ####ANNETTE ELIZABETHER L ([id number])[facility] ([facility])[address] [place] [address] Potassium [Moles/Vol] 3.9 mmol/L Normal 3.5-5.3 [facility] Comment on above: Result Comment: MILD HEMOLYSIS DETECTED. The result may be falsely elevated due to hemolysis or other interferents. Clinical correlation is recommended. Repeat testing may be considered. Performed By: #### 2 4362-6 ####ANNETTE YEBOAHMOTZER L (08331)[facility] ([facility])[address] [place] [address] Sodium [Moles/Vol] 142 mmol/L Normal 136-145 [facility] Comment on above: Performed By: #### 2 4362-6 ####ANNETTE Foss ([id number])[facility])[address] [place] [address] Urea nitrogen [Mass/Vol] 43 mg/dL High 6-23 [facility] Comment on above: Performed By: #### 2 4362-6 ####ANNETTE Foss ([id number])[facility] ([facility])[id number] [place] [address] XR ABDOMEN 1 VIEWon 10-10-19 XR ABDOMEN 1 VIEW Normal [facility] XR CHEST 1 VIEWon 10-09-2024 XR CHEST 1 VIEW Normal [facility] CBC panel Auto (Bld)on 10-08 Erythrocyte distribution width (RBC) [Ratio] 16.3 % High 11.5-14.5 [facility] Comment on above: Performed By: #### 5 8410-2 ####ANNETTE Foss ([id number])[facility] ([facility])[id number] [place] [address] Hematocrit (Bld) [Volume fraction] 36.3 % Low 41.0-52.0 [facility] Comment on above: Performed By: #### 5 8410-2 ####ANNETTE Foss ([id number])[facility] ([facility])[address] [place] [address] Hemoglobin (Bld) [Mass/Vol] 11.5 g/dL Low 13.5-17.5 [facility] Comment on above: Performed By: #### 5 8410-2 ####ANNETTE Foss ([id number])[facility] ([facility])[address] [place] [address] MCH (RBC) [Entitic mass] 28.8 pg Normal 26.0-34.0 [facility] Comment on above: Performed By: #### 5 8410-2 ####ANNETTE Foss ([id number])[facility] ([facility])[id number] [place] [address] MCHC (RBC) [Mass/Vol] 31.7 g/dL Low 32.0-36.0 [facility] Comment on above: Performed By: #### 5 8410-2 ####ANNETTE Foss ([id number])[facility] ([facility])[address] [place] [address] MCV (RBC) [Entitic vol] 91 fL Normal 80-100 [facility] Comment on above: Performed By: #### 5 8410-2 ####ANNETTE Foss ([id number])[facility] ([facility])[address] [place] [address] Nucleated RBC/100 WBC (Bld) [Ratio] 0.0 /100 WBCs Normal 0.0-0.0 [facility] Comment on above: Performed By: #### 5 8410-2 ####ANNETTE Foss ([id number])[facility] ([facility])[address] [place] [address] Platelets (Bld) [#/Vol] 71 x10*3/uL Low 150-450 [facility] Comment on above: Performed By: #### 5 8410-2 ####ANNETTE Foss ([id number])[facility] ([facility])[address] [place] [address] RBC (Bld) [#/Vol] 3.99 x10*6/uL Low 4.50-5.90 [facility] Comment on above: Performed By: #### 5 8410-2 ####ANNETTE Foss ([id number])[facility] ([facility])[address] [place] [address] WBC (Bld) [#/Vol] 13.0 x10*3/uL High 4.4-11.3 [facility] Comment on above: Performed By: #### 5 8410-2 ####ANNETTE Foss ([id number])[facility] ([facility])[address] [place] [address] Erythrocyte distribution width (RBC) [Ratio] 16.7 % High 11.5-14.5 [facility] Comment on above: Performed By: #### 5 8410-2 ####ANNETTE Foss ([id number])[facility] ([facility])[address] [place] [address] Hematocrit (Bld) [Volume fraction] 34.2 % Low 41.0-52.0 [facility] Comment on above: Performed By: #### 5 8410-2 ####ANNETTE Foss ([id number])[facility] ([facility])[address] [place] [address] Hemoglobin (Bld) [Mass/Vol] 10.7 g/dL Low 13.5-17.5 [facility] Comment on above: Performed By: #### 5 8410-2 ####ANNETTE Foss ([id number])[facility] ([facility])[address] [place] [address] MCH (RBC) [Entitic mass] 28.0 pg Normal 26.0-34.0 [facility] Comment on above: Performed By: #### 5 8410-2 ####ANNETTE Foss ([id number])[facility] ([facility])[address] [place] [address] MCHC (RBC) [Mass/Vol] 31.3 g/dL Low 32.0-36.0 [facility] Comment on above: Performed By: #### 5 8410-2 ####ANNETTE Foss ([id number])[facility] ([facility])[address] [place] [address] MCV (RBC) [Entitic vol] 90 fL Normal 80-100 [facility] Comment on above: Performed By: #### 5 8410-2 ####ANNETTE Foss ([id number])[facility] ([facility])[address] [place] [address] Nucleated RBC/100 WBC (Bld) [Ratio] 0.0 /100 WBCs Normal 0.0-0.0 [facility] Comment on above: Performed By: #### 5 8410-2 ####ANNETTE Foss ([id number])[facility] ([facility])[address] [place] [address] Platelets (Bld) [#/Vol] 59 x10*3/uL Low 150-450 [facility] Comment on above: Performed By: #### 5 8410-2 ####ANNETTE Foss ([id number])[facility] ([facility])[address] [place] [address] RBC (Bld) [#/Vol] 3.82 x10*6/uL Low 4.50-5.90 [facility] Comment on above: Performed By: #### 5 8410-2 ####ANNETTE Foss ([id number])[facility] ([facility])[address] [place] [address] WBC (Bld) [#/Vol] 11.0 x10*3/uL Normal 4.4-11.3 [facility] Comment on above: Performed By: #### 5 8410-2 ####ANNETTE Foss ([id number])[facility] ([facility])[address] [place] [address] Calcium.ionizedon 10-08-2024 Calcium.ionized (Bld) [Moles/Vol] 1.15 mmol/L Normal 1.1-1.33 [facility] Comment on above: Result Comment: The performance characteristics of ionized calcium testedin heparinized plasma or serum have been [facility].Testing on heparinized plasma or serum [facility]; however, such approval is not necessary. Performed By: #### 1 994-3 ####ANNETTE Foss ([id number])[facility] ([facility])[address] [place] [address] Calcium.ionized (Bld) [Moles/Vol] 1.16 mmol/L Normal 1.1-1.33 [facility] Comment on above: Result Comment: The performance characteristics of ionized calcium testedin heparinized plasma or serum have been validated [facility].Testing on heparinized plasma or serum is not approved bythe FDA; however, such approval is not necessary. Performed By: #### 1 994-3 ####ANNETTE Foss ([id number])[facility] ([facility])[address] [place] [address] Glucose Test strip manual (B ld) [Mass/Vol]on 10-08-2024 Glucose [Mass/Vol] 139 mg/dL High [address] [place] [address] Comment on above: Performed By: #### 2 341-6 ####ANNETTE Foss ([id number])[facility] ([facility])[address] [place] [address] Glucose [Mass/Vol] 109 mg/dL High [address] [place] [address] Comment on above: Performed By: #### 2 341-6 ####ANNETTE Foss ([id number])[facility] ([facility])[address] [place] [address] Glucose [Mass/Vol] 104 mg/dL High [address] [place] [address] Comment on above: Performed By: #### 2 341-6 ####ANNETTE Foss (76051)[facility] ([facility])[address] [place] [address] Glucose [Mass/Vol] 201 mg/dL High [address] [place] [address] Comment on above: Performed By: #### 2 341-6 ####ANNETTE Foss ([id number])[facility] ([facility])[address] [place] [address] Glucose [Mass/Vol] 83 mg/dL Normal [address] [place] [address] Comment on above: Performed By: #### 2 341-6 ####ANNETTE Foss ([id number])[facility] ([facility])[address] [place] [address] Glucose [Mass/Vol] 84 mg/dL Normal [address] [place] [address] Comment on above: Performed By: #### 2 341-6 ####ANNETTE Foss ([id number])[facility] ([facility])[address] [place] [address] Glucose [Mass/Vol] 99 mg/dL Normal 74-99 [facility] Comment on above: Performed By: #### 2 341-6 ####ANNETTE Foss ([id number])[facility] ([facility])[address] [place] [address] Magnesiumon 10-08-2024 Magnesium [Mass/Vol] 2.29 mg/dL Normal 1.60-2.40 [facility] Comment on above: Result Comment: MILD HEMOLYSIS DETECTED. The result may be falsely elevated due to hemolysis or other interferents. Clinical correlation is recommended. Repeat testing may be considered. Performed By: #### 1 9123-9 ####ANNETTE Foss ([id number])[facility] ([facility])[address] [place] [address] Magnesium [Mass/Vol] 2.25 mg/dL Normal 1.60-2.40 [facility] Comment on above: Performed By: #### 1 9123-9 ####ANNETTE Foss ([id number])[facility] ([facility])[address] [place] [address] PT and aPTT panel Coag (PPP) on 10-08-2024 aPTT Coag (PPP) [Time] 47 s High 26-36 [facility] Comment on above: Order Comment: The A PTT is no longer used for monitoring Unfractionated Heparin Therapy. For monitoring Heparin Therapy, use the Heparin Assay. Performed By: #### 3 4529-8 ####ANNETTE Foss ([id number])[facility] ([facility])[address] [place] [address] INR Coag (PPP) [Relative time] 1.8 High 0.9-1.1 [facility] Comment on above: Order Comment: The A PTT is no longer used for monitoring Unfractionated Heparin Therapy. For monitoring Heparin Therapy, use the Heparin Assay. Performed By: #### 3 4529-8 ####ANNETTE Foss ([id number])[facility] ([facility])[address] [place] [address] PT Coag (PPP) [Time] 20.2 s High 9.8-12.4 [facility] Comment on above: Order Comment: The A PTT is no longer used for monitoring Unfractionated Heparin Therapy. For monitoring Heparin Therapy, use the Heparin Assay. Performed By: #### 3 4529-8 ####ANNETTE Foss ([id number])[facility] ([facility])[address] [place] [address] Renal function 2000 panelon 10-08-2024 Albumin BCP dye [Mass/Vol] 3.7 g/dL Normal 3.4-5.0 [facility] Comment on above: Performed By: #### 2 4362-6 ####ANNETTE Foss ([id number])[facility] ([facility])[address] [place] [address] Anion gap [Moles/Vol] 13 mmol/L Normal 10-20 [facility] Comment on above: Performed By: #### 2 4362-6 ####ANNETTE Foss ([id number])[facility] ([facility])[address] [place] [address] Calcium [Mass/Vol] 8.4 mg/dL Low 8.6-10.6 [facility] Comment on above: Performed By: #### 2 4362-6 ####ANNETTE Foss ([id number])[facility] ([facility])[address] [place] [address] Chloride [Moles/Vol] 107 mmol/L Normal 98-107 [facility] Comment on above: Performed By: #### 2 4362-6 ####ANNETTE Foss ([id number])[facility] ([facility])[address] [place] [address] CO2 [Moles/Vol] 27 mmol/L Normal 21-32 [facility] Comment on above: Performed By: #### 2 4362-6 ####ANNETTE GARCIA L ([id number])[facility])[address] [place] [address] Creatinine [Mass/Vol] 1.01 mg/dL Normal 0.50-1.30 [facility] Comment on above: Performed By: #### 2 4362-6 ####ANNETTE GARCIA L ([id number])[facility] ([facility])[address] [place] [address] Glomerular filtration rate 78 mL/min/1.73m*2 Normal >60 [facility] Comment on above: Result Comment: Calc ulations of estimated GFR are performed using the 2020 CKD-EPI Study Refit equation without the race variable for the IDMS-Traceable creatinine methods.https://jasn.asnjournals.org/content/early// ASN.9199767086 Performed By: #### 2 4362-6 ####ANNETTE GARCIA L ([id number])[facility] ([facility])[address] [place] [address] Glucose [Mass/Vol] 189 mg/dL High 74-99 [facility] Comment on above: Performed By: #### 2 4362-6 ####ANNETTE GARCIA L ([id number])[facility] ([facility])[address] [place] [address] Phosphate [Mass/Vol] 2.5 mg/dL Normal 2.5-4.9 [facility] Comment on above: Result Comment: MILD HEMOLYSIS DETECTED. The result may be falsely elevated due to hemolysis or other interferents. Clinical correlation is recommended. Repeat testing may be considered. Performed By: #### 2 4362-6 ####ANNETTE GARCIA L ([id number])[facility] ([facility])[address] [place] [address] Potassium [Moles/Vol] 4.5 mmol/L Normal 3.5-5.3 [facility] Comment on above: Result Comment: MILD HEMOLYSIS DETECTED. The result may be falsely elevated due to hemolysis or other interferents. Clinical correlation is recommended. Repeat testing may be considered. Performed By: #### 2 4362-6 ####ANNETTE Foss ([id number])[facility] ([facility])[address] [place] [address] Sodium [Moles/Vol] 142 mmol/L Normal 136-145 [facility] Comment on above: Performed By: #### 2 4362-6 ####ANNETTE Foss ([id number])[facility] ([facility])[address] [place] [address] Urea nitrogen [Mass/Vol] 44 mg/dL High 6-23 [facility] Comment on above: Performed By: #### 2 4362-6 ####ANNETTE Foss ([id number])[facility] ([facility])[address] [place] [address] Albumin BCP dye [Mass/Vol] 3.4 g/dL Normal 3.4-5.0 [facility] Comment on above: Performed By: #### 2 4362-6 ####ANNETTE Foss ([id number])[facility] ([facility])[address] [place] [address] Anion gap [Moles/Vol] 12 mmol/L Normal 10-20 [facility] Comment on above: Performed By: #### 2 4362-6 ####ANNETTE Foss ([id number])[facility] ([facility])[address] [place] [address] Calcium [Mass/Vol] 8.4 mg/dL Low 8.6-10.6 [facility] Comment on above: Performed By: #### 2 4362-6 ####ANNETTE Foss ([id number])[facility] ([facility])[address] [place] [address] Chloride [Moles/Vol] 108 mmol/L High 98-107 [facility] Comment on above: Performed By: #### 2 4362-6 ####ANNETTE Foss ([id number])[facility] ([facility])[address] [place] [address] CO2 [Moles/Vol] 30 mmol/L Normal 21-32 [facility] Comment on above: Performed By: #### 2 4362-6 ####ANNETTE Foss ([id number])[facility] ([facility])[address] [place] [address] Creatinine [Mass/Vol] 1.06 mg/dL Normal 0.50-1.30 [facility] Comment on above: Performed By: #### 2 4362-6 ####ANNETTE Foss ([id number])[facility] ([facility])[address] [place] [address] Glomerular filtration rate 73 mL/min/1.73m*2 Normal >60 [facility] Comment on above: Result Comment: Calc ulations of estimated GFR are performed using the 2020 CKD-EPI Study Refit equation without the race variable for the IDMS-Traceable creatinine methods.https://jasn.asnjournals.org/content/early// ASN.8848200243 Performed By: #### 2 4362-6 ####ANNETTE Foss ([id number])[facility])[address] [place] [address] Glucose [Mass/Vol] 91 mg/dL Normal 74-99 [facility] Comment on above: Performed By: #### 2 4362-6 ####ANNETTE Foss ([id number])[facility] ([facility])[address] [place] [address] Phosphate [Mass/Vol] 3.3 mg/dL Normal 2.5-4.9 [facility] Comment on above: Performed By: #### 2 4362-6 ####ANNETTE GARCIA L ([id number])[facility])[address] [place] [address] Potassium [Moles/Vol] 3.5 mmol/L Normal 3.5-5.3 [facility] Comment on above: Performed By: #### 2 4362-6 ####ANNETTE Foss ([id number])[facility] ([facility])[address] [place] [address] Sodium [Moles/Vol] 146 mmol/L High 136-145 [facility] Comment on above: Performed By: #### 2 4362-6 ####ANNETTE Foss ([id number])[facility])[address] [place] [address] Urea nitrogen [Mass/Vol] 48 mg/dL High 6-23 [facility] Comment on above: Performed By: #### 2 4362-6 ####ANNETTE Foss ([id number])[facility] ([facility])[address] [place] [address] VASC US LOWER EXTREMITY VENO US DUPLEX BILATERALon 10-08-2024 VASC US LOWER EXTREMITY VENOUS DUPLEX BILATERAL Normal [facility] VASC US UPPER EXTREMITY VENO US DUPLEX BILATERALon 10-08-2024 VASC US UPPER EXTREMITY VENOUS DUPLEX BILATERAL Normal [facility] XR ABDOMEN 1 VIEWon 10-09-19 25 XR ABDOMEN 1 VIEW Normal [facility] Blood type and Indirect anti body screen panel (Bld)on 10-07-2024 ABO group Nom (Bld) A Normal [facility] Comment on above: Performed By: #### 3 4532-2 ####ANNETTE Foss ([id number])[facility] ([facility])[address] [place] [address] Blood group antibody screen Ql Negative [facility] Comment on above: Performed By: #### 3 4532-2 ####ANNETTE Foss ([id number])[facility] ([facility])[address] [place] [address] D Ag Ql (Bld) Positive [facility] Comment on above: Performed By: #### 3 4532-2 ####ANNETTE Foss ([id number])[facility] ([facility])[address] [place] [address] CBC panel Auto (Bld)on 10-07 Erythrocyte distribution width (RBC) [Ratio] 16.6 % High 11.5-14.5 [facility] Comment on above: Performed By: #### 5 8410-2 ####ANNETTE Foss ([id number])[facility] ([facility])[address] [place] [address] Hematocrit (Bld) [Volume fraction] 37.7 % Low 41.0-52.0 [facility] Comment on above: Performed By: #### 5 8410-2 ####ANNETTE Foss ([id number])[facility] ([facility])[address] [place] [address] Hemoglobin (Bld) [Mass/Vol] 11.6 g/dL Low 13.5-17.5 [facility] Comment on above: Performed By: #### 5 8410-2 ####ANNETTE Foss (83534)[facility] ([facility])[address] [place] [address] MCH (RBC) [Entitic mass] 28.2 pg Normal 26.0-34.0 [facility] Comment on above: Performed By: #### 5 8410-2 ####ANNETTE Foss ([id number])[facility] ([facility])[address] [place] [address] MCHC (RBC) [Mass/Vol] 30.8 g/dL Low 32.0-36.0 [facility] Comment on above: Performed By: #### 5 8410-2 ####ANNETTE Foss ([id number])[facility] ([facility])[address] [place] [address] MCV (RBC) [Entitic vol] 92 fL Normal 80-100 [facility] Comment on above: Performed By: #### 5 8410-2 ####ANNETTE Foss (33137)[facility] ([facility])[address] [place] [address] Nucleated RBC/100 WBC (Bld) [Ratio] 0.0 /100 WBCs Normal 0.0-0.0 [facility] Comment on above: Performed By: #### 5 8410-2 ####ANNETTE Foss (14290)[facility] ([facility])[address] [place] [address] Platelets (Bld) [#/Vol] 54 x10*3/uL Low 150-450 [facility] Comment on above: Performed By: #### 5 8410-2 ####ANNETTE Foss ([id number])[facility] ([facility])[address] [place] [address] RBC (Bld) [#/Vol] 4.11 x10*6/uL Low 4.50-5.90 [facility] Comment on above: Performed By: #### 5 8410-2 ####ANNETTE Foss (85489)[facility] ([facility])[address] [place] [address] WBC (Bld) [#/Vol] 10.8 x10*3/uL Normal 4.4-11.3 [facility] Comment on above: Performed By: #### 5 8410-2 ####ANNETTE Foss (75266)[facility] ([facility])[address] [place] [address] Erythrocyte distribution width (RBC) [Ratio] 16.7 % High 11.5-14.5 [facility] Comment on above: Performed By: #### 5 8410-2 ####ANNETTE Foss (87381)[facility] ([facility])[address] [place] [address] Hematocrit (Bld) [Volume fraction] 35.4 % Low 41.0-52.0 [facility] Comment on above: Performed By: #### 5 8410-2 ####ANNETTE Foss (49525)[facility] ([facility])[address] [place] [address] Hemoglobin (Bld) [Mass/Vol] 10.6 g/dL Low 13.5-17.5 [facility] Comment on above: Performed By: #### 5 8410-2 ####ANNETTE Foss (82309)[facility] ([facility])[address] [place] [address] MCH (RBC) [Entitic mass] 28.0 pg Normal 26.0-34.0 [facility] Comment on above: Performed By: #### 5 8410-2 ####ANNETTE Foss (84310)[facility] ([facility])[address] [place] [address] MCHC (RBC) [Mass/Vol] 29.9 g/dL Low 32.0-36.0 [facility] Comment on above: Performed By: #### 5 8410-2 ####ANNETTE Foss (74496)[facility] ([facility])[address] [place] [address] MCV (RBC) [Entitic vol] 94 fL Normal 80-100 [facility] Comment on above: Performed By: #### 5 8410-2 ####ANNETTE Foss (15426)[facility] ([facility])[address] [place] [address] Nucleated RBC/100 WBC (Bld) [Ratio] 0.0 /100 WBCs Normal 0.0-0.0 [facility] Comment on above: Performed By: #### 5 8410-2 ####ANNETTE Foss (56599)[facility] ([facility])[address] [place] [address] Platelets (Bld) [#/Vol] 49 x10*3/uL Low 150-450 [facility] Comment on above: Performed By: #### 5 8410-2 ####ANNETTE Foss (37178)[facility] ([facility])[address] [place] [address] RBC (Bld) [#/Vol] 3.78 x10*6/uL Low 4.50-5.90 [facility] Comment on above: Performed By: #### 5 8410-2 ####ANNETTE Foss ([id number])[facility] ([facility])[address] [place] [address] WBC (Bld) [#/Vol] 11.3 x10*3/uL Normal 4.4-11.3 [facility] Comment on above: Performed By: #### 5 8410-2 ####ANNETTE Foss ([id number])[facility] ([facility])[address] [place] [address] Calcium.ionizedon 10-07-2024 Calcium.ionized (Bld) [Moles/Vol] 1.18 mmol/L Normal 1.1-1.33 [facility] Comment on above: Result Comment: The performance characteristics of ionized calcium testedin heparinized plasma or serum have been validated [facility].Testing on heparinized plasma or serum is not approved bythe FDA; however, such approval is not necessary. Performed By: #### 1 994-3 ####ANNETTE Foss ([id number])[facility] ([facility])[address] [place] [address] Coagulation surface inducedo n 10-07-2024 aPTT Coag (PPP) [Time] 36 s Normal 26-36 [facility] Comment on above: Order Comment: Obtai n two hours after initiation of Bivalrudin or Argatroban. Nursing to release order.The APTT is no longer used for monitoring Unfractionated Heparin Therapy. For monitoring Heparin Therapy, use the Heparin Assay. Performed By: #### 1 4979-9 ####ANNETTE Foss ([id number])[facility] ([facility])[address] [place] [address] 41931 Fibrin D-dimeron 10-07-2024 Fibrin D-dimer FEU (PPP) [Mass/Vol] 478246 ng/mL FEU High <=500 [facility] Comment on above: Order Comment: The D -Dimer assay is reported in ng/mL Fibrinogen Equivalent Units (FEU). The results of this assay should NOT be used for the exclusion of Deep Vein Thrombosis and/or Pulmonary Embolism. Performed By: #### 4 8065-7 ####ANNETTE Foss ([id number])[facility] ([facility])[address] [place] [address] Fibrinogenon 10-07-2024 Fibrinogen Coag (PPP) [Mass/Vol] 259 mg/dL Normal 200-400 [facility] Comment on above: Performed By: #### 3 255-7 ####ANNETTE Foss (65074)[facility] ([facility])[address] [place] [address] Glucose Test strip manual (B ld) [Mass/Vol]on 10-07-2024 Glucose [Mass/Vol] 142 mg/dL High [address] [place] [address] Comment on above: Performed By: #### 2 341-6 ####ANNETTE Foss ([id number])[facility] ([facility])[address] [place] [address] Glucose [Mass/Vol] 126 mg/dL High [address] [place] [address] Comment on above: Performed By: #### 2 341-6 ####ANNETTE Foss ([id number])[facility] ([facility])[address] [place] [address] Glucose [Mass/Vol] 123 mg/dL High [address] [place] [address] Comment on above: Performed By: #### 2 341-6 ####ANNETTE Foss ([id number])[facility] ([facility])[address] [place] [address] Glucose [Mass/Vol] 152 mg/dL High [address] [place] [address] Comment on above: Performed By: #### 2 341-6 ####ANNETTE Foss ([id number])[facility] ([facility])[address] [place] [address] Glucose [Mass/Vol] 126 mg/dL High [address] [place] [address] Comment on above: Performed By: #### 2 341-6 ####ANNETTE Foss ([id number])[facility] ([facility])[address] [facility] [place] [address] Glucose [Mass/Vol] 80 mg/dL Normal 74-99 [facility] Comment on above: Performed By: #### 2 341-6 ####ANNETTE Foss ([id number])[facility] ([facility])[address] [place] [address] Glucose [Mass/Vol] 142 mg/dL High 74-99 [facility] Comment on above: Performed By: #### 2 341-6 ####ANNETTE Foss ([id number])[facility] ([facility])[address] [place] [address] Magnesiumon 10-07-2024 Magnesium [Mass/Vol] 2.27 mg/dL Normal 1.60-2.40 [facility] Comment on above: Performed By: #### 1 9123-9 ####ANNETTE Foss ([id number])[facility] ([facility])[address] [place] [address] PT and aPTT panel Coag (PPP) on 10-07-2024 aPTT Coag (PPP) [Time] 23 s Low 26-36 [facility] Comment on above: Order Comment: The A PTT is no longer used for monitoring Unfractionated Heparin Therapy. For monitoring Heparin Therapy, use the Heparin Assay. Performed By: #### 3 4529-8 ####ANNETTE Foss ([id number])[facility] ([facility])[address] [place] [address] INR Coag (PPP) [Relative time] 1.4 High 0.9-1.1 [facility] Comment on above: Order Comment: The A PTT is no longer used for monitoring Unfractionated Heparin Therapy. For monitoring Heparin Therapy, use the Heparin Assay. Performed By: #### 3 4529-8 ####ANNETTE Foss ([id number])[facility] ([facility])[address] [facility] [place] [address] PT Coag (PPP) [Time] 15.6 s High 9.8-12.4 [facility] Comment on above: Order Comment: The A PTT is no longer used for monitoring Unfractionated Heparin Therapy. For monitoring Heparin Therapy, use the Heparin Assay. Performed By: #### 3 4529-8 ####ANNETTE Foss ([id number])[facility] ([facility])[address] [place] [address] Renal function 2000 panelon 10-07-2024 Albumin BCP dye [Mass/Vol] 3.4 g/dL Normal 3.4-5.0 [facility] Comment on above: Performed By: #### 2 4362-6 ####ANNETTE Foss ([id number])[facility])[address] [place] [address] Anion gap [Moles/Vol] 10 mmol/L Normal 10-20 [facility] Comment on above: Performed By: #### 2 4362-6 ####ANNETTE Foss ([id number])[facility] ([facility])[address] [place] [address] Calcium [Mass/Vol] 8.3 mg/dL Low 8.6-10.6 [facility] Comment on above: Performed By: #### 2 4362-6 ####ANNETTE Foss ([id number])[facility])[address] [place] [address] Chloride [Moles/Vol] 108 mmol/L High 98-107 [facility] Comment on above: Performed By: #### 2 4362-6 ####ANNETTE Foss ([id number])[facility])[address] [place] [address] CO2 [Moles/Vol] 31 mmol/L Normal 21-32 [facility] Comment on above: Performed By: #### 2 4362-6 ####ANNETTE Foss ([id number])[facility])[address] [place] [address] Creatinine [Mass/Vol] 0.98 mg/dL Normal 0.50-1.30 [facility] Comment on above: Performed By: #### 2 4362-6 ####ANNETTE Foss (91403)[facility])[address] [place] [address] Glomerular filtration rate 80 mL/min/1.73m*2 Normal >60 [facility] Comment on above: Result Comment: Calc ulations of estimated GFR are performed using the 2020 CKD-EPI Study Refit equation without the race variable for the IDMS-Traceable creatinine methods.https://jasn.asnjournals.org/content/early// ASN.1775995610 Performed By: #### 2 4362-6 ####ANNETTE Foss (08007)[facility])[address] [place] [address] Glucose [Mass/Vol] 141 mg/dL High 74-99 [facility] Comment on above: Performed By: #### 2 4362-6 ####ANNETTE Foss ([id number])[facility])[address] [place] [address] Phosphate [Mass/Vol] 3.4 mg/dL Normal 2.5-4.9 [facility] Comment on above: Performed By: #### 2 4362-6 ####ANNETTE Foss ([id number])[facility])[address] [place] [address] Potassium [Moles/Vol] 3.7 mmol/L Normal 3.5-5.3 [facility] Comment on above: Performed By: #### 2 4362-6 ####ANNETTE GARCIA L (88401)[facility])[address] [place] [address] Sodium [Moles/Vol] 145 mmol/L Normal 136-145 [facility] Comment on above: Performed By: #### 2 4362-6 ####ANNETTE Foss (00527)[facility])[address] [place] [address] Urea nitrogen [Mass/Vol] 50 mg/dL High 6-23 [facility] Comment on above: Performed By: #### 2 4362-6 ####ANNETTE Foss (43131)[facility])[address] [place] [address] XR ABDOMEN 1 VIEWon 10-08-19 XR ABDOMEN 1 VIEW Normal [facility] XR CHEST 1 VIEWon 10-07-2024 XR CHEST 1 VIEW Normal [facility] CBC panel Auto (Bld)on 10-06 Erythrocyte distribution width (RBC) [Ratio] 16.4 % High 11.5-14.5 [facility] Comment on above: Performed By: #### 5 8410-2 ####ANNETTE Foss ([id number])[facility])[address] [place] [address] Hematocrit (Bld) [Volume fraction] 37.1 % Low 41.0-52.0 [facility] Comment on above: Performed By: #### 5 8410-2 ####ANNETTE Foss (35217)[facility])[address] [place] [address] Hemoglobin (Bld) [Mass/Vol] 11.3 g/dL Low 13.5-17.5 [facility] Comment on above: Performed By: #### 5 8410-2 ####ANNETTE Foss ([id number])[facility])[address] [place] [address] MCH (RBC) [Entitic mass] 28.8 pg Normal 26.0-34.0 [facility] Comment on above: Performed By: #### 5 8410-2 ####ANNETTE Foss (55229)[facility])[address] [place] [address] MCHC (RBC) [Mass/Vol] 30.5 g/dL Low 32.0-36.0 [facility] Comment on above: Performed By: #### 5 8410-2 ####ANNETTE Foss (32865)[facility])[address] [place] [address] MCV (RBC) [Entitic vol] 94 fL Normal 80-100 [facility] Comment on above: Performed By: #### 5 8410-2 ####ANNETTE Foss (87858)[facility])[address] [place] [address] Nucleated RBC/100 WBC (Bld) [Ratio] 0.0 /100 WBCs Normal 0.0-0.0 [facility] Comment on above: Performed By: #### 5 8410-2 ####ANNETTE Foss (46440)[facility])[address] [place] [address] Platelets (Bld) [#/Vol] 50 x10*3/uL Low 150-450 [facility] Comment on above: Performed By: #### 5 8410-2 ####ANNETTE Foss (92498)[facility])[address] [place] [address] RBC (Bld) [#/Vol] 3.93 x10*6/uL Low 4.50-5.90 [facility] Comment on above: Performed By: #### 5 8410-2 ####ANNETTE Foss (87466)[facility])[address] [place] [address] WBC (Bld) [#/Vol] 12.6 x10*3/uL High 4.4-11.3 [facility] Comment on above: Performed By: #### 5 8410-2 ####ANNETTE Foss (72933)[facility])[address] [place] [address] Erythrocyte distribution width (RBC) [Ratio] 16.7 % High 11.5-14.5 [facility] Comment on above: Performed By: #### 5 8410-2 ####ANNETTE Foss ([id number])[facility])[address] [place] [address] Hematocrit (Bld) [Volume fraction] 36.6 % Low 41.0-52.0 [facility] Comment on above: Performed By: #### 5 8410-2 ####ANNETTE Foss ([id number])[facility])[address] [place] [address] Hemoglobin (Bld) [Mass/Vol] 11.2 g/dL Low 13.5-17.5 [facility] Comment on above: Performed By: #### 5 8410-2 ####ANNETTE Foss (30894)[facility])[address] [place] [address] MCH (RBC) [Entitic mass] 28.6 pg Normal 26.0-34.0 [facility] Comment on above: Performed By: #### 5 8410-2 ####ANNETTE Foss (82506)[facility])[address] [place] [address] MCHC (RBC) [Mass/Vol] 30.6 g/dL Low 32.0-36.0 [facility] Comment on above: Performed By: #### 5 8410-2 ####ANNETTE Foss ([id number])[facility])[address] [place] [address] MCV (RBC) [Entitic vol] 94 fL Normal 80-100 [facility] Comment on above: Performed By: #### 5 8410-2 ####ANNETTE Foss (33530)[facility])[address] [place] [address] Nucleated RBC/100 WBC (Bld) [Ratio] 0.0 /100 WBCs Normal 0.0-0.0 [facility] Comment on above: Performed By: #### 5 8410-2 ####ANNETTE Foss (88677)[facility])[address] [place] [address] Platelets (Bld) [#/Vol] 54 x10*3/uL Low 150-450 [facility] Comment on above: Performed By: #### 5 8410-2 ####ANNETTE Foss (52973)[facility])[address] [place] [address] RBC (Bld) [#/Vol] 3.91 x10*6/uL Low 4.50-5.90 [facility] Comment on above: Performed By: #### 5 8410-2 ####ANNETTE Foss ([id number])[facility])[address] [place] [address] WBC (Bld) [#/Vol] 11.9 x10*3/uL High 4.4-11.3 [facility] Comment on above: Performed By: #### 5 8410-2 ####ANNETTE Foss (62609)[facility])[address] [place] [address] Erythrocyte distribution width (RBC) [Ratio] 16.7 % High 11.5-14.5 [facility] Comment on above: Performed By: #### 5 8410-2 ####ANNETTE Foss (16254)[facility])[address] [place] [address] Hematocrit (Bld) [Volume fraction] 37.3 % Low 41.0-52.0 [facility] Comment on above: Performed By: #### 5 8410-2 ####ANNETTE Foss (93559)[facility])[address] [place] [address] Hemoglobin (Bld) [Mass/Vol] 11.5 g/dL Low 13.5-17.5 [facility] Comment on above: Performed By: #### 5 8410-2 ####ANNETTE Foss (78039)[facility])[address] [place] [address] MCH (RBC) [Entitic mass] 28.6 pg Normal 26.0-34.0 [facility] Comment on above: Performed By: #### 5 8410-2 ####ANNETTE Foss (66775)[facility])[address] [place] [address] MCHC (RBC) [Mass/Vol] 30.8 g/dL Low 32.0-36.0 [facility] Comment on above: Performed By: #### 5 8410-2 ####ANNETTE Foss (65954)[facility])[address] [place] [address] MCV (RBC) [Entitic vol] 93 fL Normal 80-100 [facility] Comment on above: Performed By: #### 5 8410-2 ####ANNETTE Foss (12423)[facility])[address] [place] [address] Nucleated RBC/100 WBC (Bld) [Ratio] 0.2 /100 WBCs High 0.0-0.0 [facility] Comment on above: Performed By: #### 5 8410-2 ####ANNETTE Foss (79454)[facility])[address] [place] [address] Platelets (Bld) [#/Vol] Normal [facility] Comment on above: Result Comment: 54; Platelet count verified by smear review Performed By: #### 5 8410-2 ####ANNETTE Foss (66216)[facility])[address] [place] [address] RBC (Bld) [#/Vol] 4.02 x10*6/uL Low 4.50-5.90 [facility] Comment on above: Performed By: #### 5 8410-2 ####ANNETTE Foss (15510)[facility])[address] [place] [address] WBC (Bld) [#/Vol] 12.3 x10*3/uL High 4.4-11.3 [facility] Comment on above: Performed By: #### 5 8410-2 ####ANNETTE Foss (73478)[facility] ([facility])[address] [place] [address] Calcium.ionizedon 10-06-2024 Calcium.ionized (Bld) [Moles/Vol] 1.16 mmol/L Normal 1.1-1.33 [facility] Comment on above: Result Comment: The performance characteristics of ionized calcium testedin heparinized plasma or serum have been [facility].Testing on heparinized plasma or serum [facility] FDA; however, such approval is not necessary. Performed By: #### 1 994-3 ####ANNETTE Foss (19904)[facility] ([facility])[address] [place] [address] Calcium.ionized (Bld) [Moles/Vol] 1.13 mmol/L Normal 1.1-1.33 [facility] Comment on above: Result Comment: The performance characteristics of ionized calcium testedin heparinized plasma or serum have been validated [facility].Testing on heparinized plasma or serum is not approved bythe FDA; however, such approval is not necessary. Performed By: #### 1 994-3 ####ANNETTE Foss (92806)[facility] ([facility])[address] [place] [address] Clostridioides difficile tox in A+B tcdA+tcdB geneson 10-06-2024 C. difficile toxin A+B tcdA+tcdB genes LOGAN+probe Ql (Stl) Clostridioides difficile toxin A+B tcdA+tcdB genes Not Detected Normal Not Detected [facility] Comment on above: Order Comment: This test [...] days. Performed By: #### 8 0685-1 ####ANNETTE Foss (67632)[facility])[address] [place] [address] Glucose Test strip manual (B ld) [Mass/Vol]on 10-06-2024 Glucose [Mass/Vol] 170 mg/dL High [address] [place] [address] Comment on above: Performed By: #### 2 341-6 ####ANNETTE Foss (30225)[facility])[address] [place] [address] Glucose [Mass/Vol] 127 mg/dL High [address] [place] [address] Comment on above: Performed By: #### 2 341-6 ####ANNETTE Foss (12054)[facility])[address] [place] [address] Glucose [Mass/Vol] 197 mg/dL High [address] [place] [address] Comment on above: Performed By: #### 2 341-6 ####ANNETTE Foss (03318)[facility])[address] [place] [address] Glucose [Mass/Vol] 114 mg/dL High [address] [place] [address] Comment on above: Performed By: #### 2 341-6 ####ANNETTE Foss (60528)[facility])[address] [facility] [place] [address] Glucose [Mass/Vol] 99 mg/dL Normal -[address] [place] [address] Comment on above: Performed By: #### 2 341-6 ####ANNETTE Foss (35040)[facility])[address] [place] [address] Glucose [Mass/Vol] 136 mg/dL High [address] [place] [address] Comment on above: Performed By: #### 2 341-6 ####ANNETTE Foss (24532)[facility])[address] [place] [address] Heparin induced platelet Ab Qn (S)on 10-06-2024 INTERPRETATION FOR ANTI-PLATELET FACTOR 4 ANTIBODY Positive Critically abnormal Negative [facility] Comment on above: Performed By: #### 4 5155-9 ####ANNETTE Foss ([id number])[facility])[address] [place] [address] PERCENT INHIBITION 103 Normal [facility] Comment on above: Performed By: #### 4 5155-9 ####ANNETTE Foss (58401)[facility])[address] [place] [address] SERUM AND HI DOSE HEPARIN 0.[address] [facility] Comment on above: Performed By: #### 4 5155-9 ####ANNETTE Foss (40964)[facility])[address] [place] [address] SERUM AND PLATELET FACTOR 4 2.857 OD Units High <0.400 [facility] Comment on above: Performed By: #### 4 5155-9 ####ANNETTE Foss (29724)[facility])[address] [place] [address] Heparin.unfractionatedon Heparin unfractionated Chromogenic method Qn (PPP) 0.3 IU/mL Normal See Comment Below for Therapeutic Ranges [facility] Comment on above: Order Comment: Obtai [...] please refer to local Pharmacy and the [facility] Guidelines for Anticoagulation Therapy available on the [facility] intranet at: [email or web address]_Guidelines_[email or web address].aspx Performed By: #### 3 274-8 ####ANNETTE Foss (16114)[facility])[address] [place] [address] Heparin unfractionated Chromogenic method Qn (PPP) 0.4 IU/mL Normal See Comment Below for Therapeutic Ranges [facility] Comment on above: Order Comment: Obtai [...] please refer to local Pharmacy and the [facility] Guidelines for Anticoagulation Therapy available on the [facility] intranet at: [email or web address]_Guidelines_[email or web address].aspx Performed By: #### 3 274-8 ####ANNETTE Foss (38218)[facility])[address] [place] [address] Heparin unfractionated Chromogenic method Qn (PPP) 0.6 IU/mL Normal See Comment Below for Therapeutic Ranges [facility] Comment on above: Order Comment: Obtai [...] please refer to local Pharmacy and the [facility] Guidelines for Anticoagulation Therapy available on the [facility] intranet at: [email or web address] [email or web address]_Guidelines_for_[email or web address].aspx Performed By: #### 3 274-8 ####ANNETTE Foss ([id number])[facility])[address] [place] [address] Magnesiumon 10-06-2024 Magnesium [Mass/Vol] 2.38 mg/dL Normal 1.60-2.40 [facility] Comment on above: Performed By: #### 1 9123-9 ####ANNETTE Foss (31176)[facility])[address] [place] [address] Magnesium [Mass/Vol] 2.39 mg/dL Normal 1.60-2.40 [facility] Comment on above: Result Comment: MILD HEMOLYSIS DETECTED. The result may be falsely elevated due to hemolysis or other interferents. Clinical correlation is recommended. Repeat testing may be considered. Performed By: #### 1 9123-9 ####ANNETTE Foss (34059)[facility])[address] [place] [address] Observationon 10-06-2024 Osmolality [Osmolality] 316 mosm/kg High 280-300 [facility] Comment on above: Performed By: #### 2 692-2 ####ANNETTE Foss (15055)[facility])[address] [place] [address] PATH REVIEW-ANTI PF4on 10-06 PATH REVIEW-HIT ASSAY SEE COMMENT Normal [facility] Comment on above: Order Comment: Revie [...] recommended. Performed By: #### P R31 ####ANNETTE Foss (73836)[facility])[address] [place] [address] PT and aPTT panel Coag (PPP) on 10-06-2024 aPTT Coag (PPP) [Time] 39 s High 26-36 [facility] Comment on above: Order Comment: The A PTT is no longer used for monitoring Unfractionated Heparin Therapy. For monitoring Heparin Therapy, use the Heparin Assay. Performed By: #### 3 4529-8 ####ANNETTE Foss (46361)[facility])[address] [place] [address]8565 INR Coag (PPP) [Relative time] 1.4 High 0.9-1.1 [facility] Comment on above: Order Comment: The A PTT is no longer used for monitoring Unfractionated Heparin Therapy. For monitoring Heparin Therapy, use the Heparin Assay. Performed By: #### 3 4529-8 ####ANNETTE Foss ([id number])[facility])[address] [place] [address] 715[address] PT Coag (PPP) [Time] 15.7 s High 9.8-12.4 [facility] Comment on above: Order Comment: The A PTT is no longer used for monitoring Unfractionated Heparin Therapy. For monitoring Heparin Therapy, use the Heparin Assay. Performed By: #### 3 4529-8 ####ANNETTE Foss (69757)[facility])[address] [place] [address] Renal function 2000 panelon 10-06-2024 Albumin BCP dye [Mass/Vol] 3.6 g/dL Normal 3.4-5.0 [facility] Comment on above: Performed By: #### 2 4362-6 ####ANNETTE Foss (91942)[facility])[address] [place] [address] Anion gap [Moles/Vol] 11 mmol/L Normal 10-20 [facility] Comment on above: Performed By: #### 2 4362-6 ####ANNETTE Foss ([id number])[facility])[address] [place] [address] Calcium [Mass/Vol] 8.7 mg/dL Normal 8.6-10.6 [facility] Comment on above: Performed By: #### 2 4362-6 ####ANNETTE Foss (79260)[facility])[address] [place] [address] Chloride [Moles/Vol] 108 mmol/L High 98-107 [facility] Comment on above: Performed By: #### 2 4362-6 ####ANNETTE GARCIA L (16456)[facility])[address] [place] [address] CO2 [Moles/Vol] 30 mmol/L Normal 21-32 [facility] Comment on above: Performed By: #### 2 4362-6 ####ANNETTE Foss (48621)[facility])[address] [place] [address] Creatinine [Mass/Vol] 1.09 mg/dL Normal 0.50-1.30 [facility] Comment on above: Performed By: #### 2 4362-6 ####ANNETTE Foss (06722)[facility])[address] [place] [address] Glomerular filtration rate 71 mL/min/1.73m*2 Normal >60 [facility] Comment on above: Result Comment: Calc ulations of estimated GFR are performed using the 2020 CKD-EPI Study Refit equation without the race variable for the IDMS-Traceable creatinine methods.https://jasn.asnjournals.org/content// ASN.0869371425 Performed By: #### 2 4362-6 ####ANNETTE Foss ([id number])[facility])[address] [place] [address] Glucose [Mass/Vol] 190 mg/dL High 74-99 [facility] Comment on above: Performed By: #### 2 4362-6 ####ANNETTE GARCIA L (31914)[facility])[address] [place] [address] Phosphate [Mass/Vol] 2.8 mg/dL Normal 2.5-4.9 [facility] Comment on above: Performed By: #### 2 4362-6 ####ANNETTE Foss (28388)[facility])[address] [place] [address] Potassium [Moles/Vol] 3.8 mmol/L Normal 3.5-5.3 [facility] Comment on above: Performed By: #### 2 4362-6 ####ANNETTE Foss (20884)[facility])[address] [place] [address] Sodium [Moles/Vol] 145 mmol/L Normal 136-145 [facility] Comment on above: Performed By: #### 2 4362-6 ####ANNETTE Foss (37532)[facility])[address] [place] [address] Urea nitrogen [Mass/Vol] 51 mg/dL High 6-23 [facility] Comment on above: Performed By: #### 2 4362-6 ####ANNETTE Foss ([id number])[facility])[address] [place] [address] Albumin BCP dye [Mass/Vol] 3.3 g/dL Low 3.4-5.0 [facility] Comment on above: Performed By: #### 2 4362-6 ####ANNETTE Foss ([id number])[facility])[address] [place] [address] Anion gap [Moles/Vol] 12 mmol/L Normal 10-20 [facility] Comment on above: Performed By: #### 2 4362-6 ####ANNETTE Foss (93248)[facility])[address] [place] [address] Calcium [Mass/Vol] 8.3 mg/dL Low 8.6-10.6 [facility] Comment on above: Performed By: #### 2 4362-6 ####ANNETTE Foss (86289)[facility])[address] [place] [address] Chloride [Moles/Vol] 106 mmol/L Normal 98-107 [facility] Comment on above: Performed By: #### 2 4362-6 ####ANNETTE Foss (14414)[facility] ([facility])[address] [place] [address] CO2 [Moles/Vol] 31 mmol/L Normal 21-32 [facility] Comment on above: Performed By: #### 2 4362-6 ####ANNETTE Foss ([id number])[facility] ([facility])[address] [place] [address] Creatinine [Mass/Vol] 0.94 mg/dL Normal 0.50-1.30 [facility] Comment on above: Performed By: #### 2 4362-6 ####ANNETTE Foss ([id number])[facility] ([facility])[address] [place] [address] Glomerular filtration rate 85 mL/min/1.73m*2 Normal >60 [facility] Comment on above: Result Comment: Calc ulations of estimated GFR are performed using the 2020 CKD-EPI Study Refit equation without the race variable for the IDMS-Traceable creatinine methods.https://jasn.asnjournals.org/content// ASN.6409661493 Performed By: #### 2 4362-6 ####ANNETTE Foss ([id number])[facility] ([facility])[address] [place] [address] Glucose [Mass/Vol] 101 mg/dL High 74-99 [facility] Comment on above: Performed By: #### 2 4362-6 ####ANNETTE Foss ([id number])[facility] ([facility])[address] [place] [address] Phosphate [Mass/Vol] 3.9 mg/dL Normal 2.5-4.9 [facility] Comment on above: Result Comment: MILD HEMOLYSIS DETECTED. The result may be falsely elevated due to hemolysis or other interferents. Clinical correlation is recommended. Repeat testing may be considered. Performed By: #### 2 4362-6 ####ANNETTE Foss ([id number])[facility] ([facility])[address] [place] [address] Potassium [Moles/Vol] 4.9 mmol/L Normal 3.5-5.3 [facility] Comment on above: Result Comment: MILD HEMOLYSIS DETECTED. The result may be falsely elevated due to hemolysis or other interferents. Clinical correlation is recommended. Repeat testing may be considered. Performed By: #### 2 4362-6 ####ANNETTE Foss ([id number])[facility] ([facility])[address] [place] [address] Sodium [Moles/Vol] 144 mmol/L Normal 136-145 [facility] Comment on above: Performed By: #### 2 4362-6 ####ANNETTE Foss ([id number])[facility] ([facility])[address] [place] [address] Urea nitrogen [Mass/Vol] 47 mg/dL High 6-23 [facility] Comment on above: Performed By: #### 2 4362-6 ####ANNETTE Foss ([id number])[facility] ([facility])[address] [facility] [place] [address] SEROTONIN RELEASE ASSAYon SCAN RESULT See Scanned Result Normal [facility] Comment on above: Performed By: #### S EROR ####[facility]AC[facility] (BEAKER) (EX[facility])[address] [place] [address] Serotonin release 0.1 IU/mL heparin.unfractionated Qn (S) 100 % [facility] Comment on above: Performed By: #### S EROR ####EXT NON INTERFACED [facility] (BEAKER) (EXLAB)[address] [place] [address] Serotonin release 100 IU/mL heparin.unfractionated Qn (S) 1 % Normal [facility] Comment on above: Performed By: #### S EROR ####EXT NON INTERFACED [facility] (BEAKER) (EX[facility])[address] [place] [address] Serotonin release.heparin.porcine (S) [Interp] Positive Abnormal Negative [facility] Comment on above: Performed By: #### S EROR ####EXT NON INTERFACED [facility] (BEAKER) (EX[facility])[address] [place] [address] Bacteriaon 10-05-2024 Bacteria identified Cx Nom (U) Abnormal [facility] Comment on above: Performed By: #### 6 30-4 ####ANNETTE Foss ([id number])[facility] ([facility])[address] [place], [place] [address] CBC panel Auto (Bld)on 10-05 Erythrocyte distribution width (RBC) [Ratio] 16.6 % High 11.5-14.5 [facility] Comment on above: Performed By: #### 5 8410-2 ####ANNETTE Foss (62752)[facility] ([facility])[address] [place] [address] Hematocrit (Bld) [Volume fraction] 42.6 % Normal 41.0-52.0 [facility] Comment on above: Performed By: #### 5 8410-2 ####ANNETTE Foss ([id number])[facility] ([facility])[address] [place] [address] Hemoglobin (Bld) [Mass/Vol] 13.7 g/dL Normal 13.5-17.5 [facility] Comment on above: Performed By: #### 5 8410-2 ####ANNETTE Foss ([id number])[facility] ([facility])[address] [place] [address] 40471 MCH (RBC) [Entitic mass] 29.0 pg Normal 26.0-34.0 [facility] Comment on above: Performed By: #### 5 8410-2 ####ANNETTE Foss ([id number])[facility] ([facility])[address] [place] [address] MCHC (RBC) [Mass/Vol] 32.2 g/dL Normal 32.0-36.0 [facility] Comment on above: Performed By: #### 5 8410-2 ####ANNETTE Foss ([id number])[facility] ([facility])[address] [place] [address] MCV (RBC) [Entitic vol] 90 fL Normal 80-100 [facility] Comment on above: Performed By: #### 5 8410-2 ####ANNETTE Foss ([id number])[facility] ([facility])[address] [place] [address] 38867 Nucleated RBC/100 WBC (Bld) [Ratio] 0.1 /100 WBCs High 0.0-0.0 [facility] Comment on above: Performed By: #### 5 8410-2 ####ANNETTE Foss ([id number])[facility] ([facility])[address] [place] [address] Platelets (Bld) [#/Vol] 124 x10*3/uL Low 150-450 [facility] Comment on above: Performed By: #### 5 8410-2 ####ANNETTE Foss (54105)[facility] ([facility])[address] [place] [address] RBC (Bld) [#/Vol] 4.73 x10*6/uL Normal 4.50-5.90 [facility] Comment on above: Performed By: #### 5 8410-2 ####ANNETTE Foss ([id number])[facility] ([facility])[address] [place] [address] WBC (Bld) [#/Vol] 18.4 x10*3/uL High 4.4-11.3 [facility] Comment on above: Performed By: #### 5 8410-2 ####ANNETTE Foss (97011)[facility] ([facility])[address] [place] [address] Erythrocyte distribution width (RBC) [Ratio] 17.0 % High 11.5-14.5 [facility] Comment on above: Performed By: #### 5 8410-2 ####ANNETTE Foss (18083)[facility] ([facility])[address] [place] [address] Hematocrit (Bld) [Volume fraction] 36.2 % Low 41.0-52.0 [facility] Comment on above: Performed By: #### 5 8410-2 ####ANNETTE Foss ([id number])[facility] ([facility])[address] [place] [address] Hemoglobin (Bld) [Mass/Vol] 11.1 g/dL Low 13.5-17.5 [facility] Comment on above: Performed By: #### 5 8410-2 ####ANNETTE Foss (47538)[facility] ([facility])[address] [place] [address]15 MCH (RBC) [Entitic mass] 28.3 pg Normal 26.0-34.0 [facility] Comment on above: Performed By: #### 5 8410-2 ####ANNETTE Foss (08101)[facility] ([facility])[address] [place] [address] MCHC (RBC) [Mass/Vol] 30.7 g/dL Low 32.0-36.0 [facility] Comment on above: Performed By: #### 5 8410-2 ####ANNETTE Foss ([id number])[facility] ([facility])[address] [place] [address] MCV (RBC) [Entitic vol] 92 fL Normal 80-100 [facility] Comment on above: Performed By: #### 5 8410-2 ####ANNETTE Foss (63295)[facility] ([facility])[address] [place] [address] Nucleated RBC/100 WBC (Bld) [Ratio] 0.0 /100 WBCs Normal 0.0-0.0 [facility] Comment on above: Performed By: #### 5 8410-2 ####ANNETTE Foss (72909)[facility] ([facility])[address] [place] [address] Platelets (Bld) [#/Vol] 134 x10*3/uL Low 150-450 [facility] Comment on above: Performed By: #### 5 8410-2 ####ANNETTE Foss ([id number])[facility] ([facility])[address] [place] [address] 14716 RBC (Bld) [#/Vol] 3.92 x10*6/uL Low 4.50-5.90 [facility] Comment on above: Performed By: #### 5 8410-2 ####ANNETTE Foss ([id number])[facility] ([facility])[address] [place] [address]48 WBC (Bld) [#/Vol] 12.7 x10*3/uL High 4.4-11.3 [facility] Comment on above: Performed By: #### 5 8410-2 ####ANNETTE Foss ([id number])[facility] ([facility])[address] [place] [address]106 Calcium.ionizedon 10-05-2024 Calcium.ionized (Bld) [Moles/Vol] 1.16 mmol/L Normal 1.1-1.33 [facility] Comment on above: Result Comment: The performance characteristics of ionized calcium testedin heparinized plasma or serum have [facility].Testing on heparinized plasma or serum is not approved bythe FDA; however, such approval is not necessary. Performed By: #### 1 994-3 ####ANNETTE Foss (45102)[facility] ([facility])[address] [place] [address] 24017 Calcium.ionized (Bld) [Moles/Vol] 1.18 mmol/L Normal 1.1-1.33 [facility] Comment on above: Result Comment: The performance characteristics of ionized calcium testedin heparinized plasma or serum have been validated [facility].Testing on heparinized plasma or serum is not approved bythe FDA; however, such approval is not necessary. Performed By: #### 1 994-3 ####ANNETTE Foss (15053)[facility] ([facility])[address] [place] [address] 23910 Coagulation surface inducedo n 10-05-2024 aPTT Coag (PPP) [Time] 30 s Normal 26-36 [facility] Comment on above: Order Comment: Prior to initiating heparin if not obtained in prior 48 hours. Nursing to release order.The APTT is no longer used for monitoring Unfractionated Heparin Therapy. For monitoring Heparin Therapy, use the Heparin Assay. Performed By: #### 1 4979-9 ####ANNETTE Foss ([id number])[facility] ([facility])[address] [place] [address]392 Coagulation tissue factor in ducedon 10-05-2024 PT Coag (PPP) [Time] 17.0 s High 9.8-12.4 [facility] Comment on above: Order Comment: If keaton gomez has not had PT + INR in the last 24 hours. Nursing to release order. Performed By: #### 5 902-2 ####ANNETTE Foss ([id number])[facility] ([facility])[address] [place] [address]249 Glucose Test strip manual (B ld) [Mass/Vol]on 10-05-2024 Glucose [Mass/Vol] 197 mg/dL High 74-99 [facility] Comment on above: Performed By: #### 2 341-6 ####ANNETTE Foss ([id number])[facility] ([facility])[address] [place] [address]117 Glucose [Mass/Vol] 121 mg/dL High 74-99 [facility] Comment on above: Performed By: #### 2 341-6 ####ANNETTE Foss ([id number])[facility] ([facility])[address] [place] [address] Glucose [Mass/Vol] 117 mg/dL High 74-99 [facility] Comment on above: Performed By: #### 2 341-6 ####ANNETTE Foss ([id number])[facility] ([facility])[address] [place] [address] Glucose [Mass/Vol] 102 mg/dL High 74-99 [facility] Comment on above: Performed By: #### 2 341-6 ####ANNETTE Foss ([id number])[facility] ([facility])[address] [place] [address] Glucose [Mass/Vol] 102 mg/dL High 74-99 [facility] Comment on above: Performed By: #### 2 341-6 ####ANNETTE Foss ([id number])[facility] ([facility])[address] [place] [address] Heparin.unfractionatedon Heparin unfractionated Chromogenic method Qn (PPP) 0.9 IU/mL Normal See Comment Below for Therapeutic Ranges [facility] Comment on above: Order Comment: Obtai [...] please refer to local Pharmacy and the [facility] Guidelines for Anticoagulation Therapy available on the [facility] intranet at: [email or web address] Performed By: #### 3 274-8 ####ANNETTE Foss ([id number])[facility] ([facility])[address] [place] [address] Magnesiumon 10-05-2024 Magnesium [Mass/Vol] 2.43 mg/dL High 1.60-2.40 [facility] Comment on above: Performed By: #### 1 9123-9 ####ANNETTE Foss (94683)[facility] ([facility])[address] [place] [address] Magnesium [Mass/Vol] 2.31 mg/dL Normal 1.60-2.40 [facility] Comment on above: Performed By: #### 1 9123-9 ####ANNETTE Foss (66276)[facility] ([facility])[address] [place] [address] PT Coag (PPP) [Time]on 10-05 INR Coag (PPP) [Relative time] 1.5 High 0.9-1.1 [facility] Comment on above: Order Comment: If keaton gomez has not had PT + INR in the last 24 hours. Nursing to release order. Performed By: #### 5 902-2 ####ANNETTE Foss (80039)[facility] ([facility])[address] [place] [address] Renal function 2000 panelon 10-05-2024 Albumin BCP dye [Mass/Vol] 4.0 g/dL Normal 3.4-5.0 [facility] Comment on above: Performed By: #### 2 4362-6 ####ANNETTE Foss (90438)[facility] ([facility])[address] [place] [address] Anion gap [Moles/Vol] 15 mmol/L Normal 10-20 [facility] Comment on above: Performed By: #### 2 4362-6 ####ANNETTE Foss (89763)[facility] ([facility])[address] [place] [address] Calcium [Mass/Vol] 9.1 mg/dL Normal 8.6-10.6 [facility] Comment on above: Performed By: #### 2 4362-6 ####ANNETTE Foss (50875)[facility] ([facility])[address] [place] [address] Chloride [Moles/Vol] 103 mmol/L Normal 98-107 [facility] Comment on above: Performed By: #### 2 4362-6 ####ANNETTE Foss ([id number])[facility] ([facility])[address] [place] [address] CO2 [Moles/Vol] 28 mmol/L Normal 21-32 [facility] Comment on above: Performed By: #### 2 4362-6 ####ANNETTE GARCIA L ([id number])[facility] ([facility])[address] [place] [address] Creatinine [Mass/Vol] 0.83 mg/dL Normal 0.50-1.30 [facility] Comment on above: Performed By: #### 2 4362-6 ####ANNETTE Foss (74829)[facility] ([facility])[address] [place] [address] Glomerular filtration rate >90 Normal >60 [facility] Comment on above: Result Comment: Calc ulations of estimated GFR are performed using the 2020 CKD-EPI Study Refit equation without the race variable for the IDMS-Traceable creatinine methods.https://jasn.asnjournals.org/content// ASN.0746969990 Performed By: #### 2 4362-6 ####ANNETTE Foss ([id number])[facility] ([facility])[address] [place] [address] Glucose [Mass/Vol] 121 mg/dL High 74-99 [facility] Comment on above: Performed By: #### 2 4362-6 ####ANNETTE GARCIA L (11751)[facility] ([facility])[address] [place] [address] Phosphate [Mass/Vol] 3.3 mg/dL Normal 2.5-4.9 [facility] Comment on above: Performed By: #### 2 4362-6 ####ANNETTE GARCIA L (58490)[facility] ([facility])[address] [place] [address] Potassium [Moles/Vol] 4.3 mmol/L Normal 3.5-5.3 [facility] Comment on above: Performed By: #### 2 4362-6 ####ANNETTE Foss ([id number])[facility] ([facility])[address] [place] [address] Sodium [Moles/Vol] 142 mmol/L Normal 136-145 [facility] Comment on above: Performed By: #### 2 4362-6 ####ANNETTE Foss (88240)[facility] ([facility])[address] [place] [address] Urea nitrogen [Mass/Vol] 39 mg/dL High 6-23 [facility] Comment on above: Performed By: #### 2 4362-6 ####ANNETTE Foss (18053)[facility] ([facility])[address] [place] [address] Albumin BCP dye [Mass/Vol] 3.4 g/dL Normal 3.4-5.0 [facility] Comment on above: Performed By: #### 2 4362-6 ####ANNETTE Foss ([id number])[facility] ([facility])[address] [place] [address] Anion gap [Moles/Vol] 13 mmol/L Normal 10-20 [facility] Comment on above: Performed By: #### 2 4362-6 ####ANNETTE Foss ([id number])[facility] ([facility])[address] [place] [address] Calcium [Mass/Vol] 8.7 mg/dL Normal 8.6-10.6 [facility] Comment on above: Performed By: #### 2 4362-6 ####ANNETTE Foss (59497)[facility] ([facility])[address] [place] [address] Chloride [Moles/Vol] 106 mmol/L Normal 98-107 [facility] Comment on above: Performed By: #### 2 4362-6 ####ANNETTE Foss (89240)[facility] ([facility])[address] [place] [address] CO2 [Moles/Vol] 29 mmol/L Normal 21-32 [facility] Comment on above: Performed By: #### 2 4362-6 ####ANNETTE Foss (45228)[facility] ([facility])[address] [place] [address] Creatinine [Mass/Vol] 0.78 mg/dL Normal 0.50-1.30 [facility] Comment on above: Performed By: #### 2 4362-6 ####ANNETTE Foss (95133)[facility] ([facility])[address] [place] [address] Glomerular filtration rate >90 Normal >60 [facility] Comment on above: Result Comment: Calc ulations of estimated GFR are performed using the 2020 CKD-EPI Study Refit equation without the race variable for the IDMS-Traceable creatinine methods.https://jasn.asnjournals.org/content// ASN.7769103346 Performed By: #### 2 4362-6 ####ANNETTE Foss (18100)[facility] ([facility])[address] [place] [address] Glucose [Mass/Vol] 90 mg/dL Normal 74-99 [facility] Comment on above: Performed By: #### 2 4362-6 ####ANNETTE Foss (81259)[facility] ([facility])[address] [place] [address] Phosphate [Mass/Vol] 2.8 mg/dL Normal 2.5-4.9 [facility] Comment on above: Performed By: #### 2 4362-6 ####ANNETTE Foss (41027)[facility] ([facility])[address] [place] [address] Potassium [Moles/Vol] 3.9 mmol/L Normal 3.5-5.3 [facility] Comment on above: Performed By: #### 2 4362-6 ####ANNETTE Foss ([id number])[facility] ([facility])[address] [place] [address] Sodium [Moles/Vol] 144 mmol/L Normal 136-145 [facility] Comment on above: Performed By: #### 2 4362-6 ####ANNETTE Foss ([id number])[facility] ([facility])[address] [place] [address] 15068 Urea nitrogen [Mass/Vol] 40 mg/dL High 6- [facility] Comment on above: Performed By: #### 2 4362-6 ####ANNETTE Foss (92033)[facility] ([facility])[address] [place] [address] 24367 Urinalysis complete W Reflex Culture panel (U)on 10-05-2024 Appearance (U) Ex.Turbid Normal Clear [facility] Comment on above: Order Comment: OVER is reported when the result is greater than the clinically reportable range. Performed By: #### 5 8077-9 ####ANNETTE Foss ([id number])[facility] ([facility])[address] [place] [address] 39377 Bilirubin (U) [Mass/Vol] Negative Normal NEGATIVE [facility] Comment on above: Order Comment: OVER is reported when the result is greater than the clinically reportable range. Performed By: #### 5 8077-9 ####ANNETTE Foss ([id number])[facility] ([facility])[address] [place] [address] Color (U) Light-[place] Normal Light-Yellow, Yellow, Dark-Yellow [facility] Comment on above: Order Comment: OVER is reported when the result is greater than the clinically reportable range. Performed By: #### 5 8077-9 ####ANNETTE Foss (56031)[facility] ([facility])[address] [place] [address] Glucose Auto test strip (U) [Mass/Vol] Normal Normal Normal [facility] Comment on above: Order Comment: OVER is reported when the result is greater than the clinically reportable range. Performed By: #### 5 8077-9 ####ANNETTE Foss (55603)[facility] ([facility])[address] [place] [address] Ketones (U) [Mass/Vol] Negative Normal NEGATIVE [facility]: Order Comment: OVER is reported when the result is greater than the clinically reportable range. Performed By: #### 5 8077-9 ####ANNETTE GARCIA L ([id number])[facility] ([facility])[address] [place] [address] Leukocyte esterase Auto test strip Ql (U) 500 [place]/uL Abnormal NEGATIVE [facility] Comment on above: Order Comment: OVER is reported when the result is greater than the clinically reportable range. Performed By: #### 5 8077-9 ####ANNETTE GARCIA L (93794)[facility] ([facility])[address] [place] [address] Nitrite Auto test strip Ql (U) 2+ Abnormal NEGATIVE [facility] Comment on above: Order Comment: OVER is reported when the result is greater than the clinically reportable range. Performed By: #### 5 8077-9 ####ANNETTE Foss (95772)[facility] ([facility])[address] [place] [address] pH (U) 6.5 [pH] Normal 5.0, 5.5, 6.0, 6.5, 7.0, 7.5, 8.0 [facility] Comment on above: Order Comment: OVER is reported when the result is greater than the clinically reportable range. Performed By: #### 5 8077-9 ####ANNETTE GARCIA L (64268)[facility] ([facility])[address] [place] [address] Protein (U) [Mass/Vol] 300 (3+) Abnormal NEGAT SEUN, 10 (TRACE), 20 (TRACE) [facility] Comment on above: Order Comment: OVER is reported when the result is greater than the clinically reportable range. Performed By: #### 5 8077-9 ####ANNETTE ELIZABETHER L (96633)[facility] ([facility])[address] [place] [address] 10989 RBC (U) [#/Vol] OVER (3+) Abnormal NEGATIVE [facility] Comment on above: Order Comment: OVER is reported when the result is greater than the clinically reportable range. Performed By: #### 5 8077-9 ####ANNETTE RAMSEYTZER L (92636)[facility] ([facility])[address] [place] [address] 59138 Specific gravity (U) [Rel density] 1.024 Normal 1.005-1.035 [facility] Comment on above: Order Comment: OVER is reported when the result is greater than the clinically reportable range. Performed By: #### 5 8077-9 ####ANNETTE RAMSEYTZER L (53369)[facility] ([facility])[address] [place] [address] 62387 Urobilinogen (U) [Mass/Vol] Normal Normal Normal [facility] Comment on above: Order Comment: OVER is reported when the result is greater than the clinically reportable range. Performed By: #### 5 8077-9 ####ANNETTE ELIZABETHER L (71516)[facility] ([facility])[address] [place] [address] 73609 Urinalysis microscopic panel Auto Ql (U)on 10-05-2024 Bacteria Auto (Urine sed) [#/Area] 2+ /HPF Abnormal NONE SEEN [facility] Comment on above: Performed By: #### 5 3315-8 ####ANNETTE RAMSEYTZER L (89030)[facility] ([facility])[address] [place] [address] 61635 Leukocyte clumps Auto (Urine sed) [#/Area] MANY Normal Reference range not established. [facility] Comment on above: Performed By: #### 5 3315-8 ####ANNETTE YEBOAHMOTZER L (03909)[facility] ([facility])[address] [place] [address] Mucus Auto (Urine sed) [#/Area] 4+ /LPF Normal Reference range not established. [facility] Comment on above: Performed By: #### 5 3315-8 ####ANNETTE Foss (19984)[facility] ([facility])[address] [place] [address] 61843 RBC Auto (Urine sed) [#/Area] >20 Abnormal NONE, 1-2, 3-5 [facility] Comment on above: Performed By: #### 5 3315-8 ####ANNETTE Foss ([id number])[facility] ([facility])[address] [place] [address] 24022 WBC Auto (Urine sed) [#/Area] >50 Abnormal 1-5, NONE [facility] Comment on above: Performed By: #### 5 3315-8 ####ANNETTE Foss ([id number])[facility] ([facility])[address] [place] [address] 97139 XR ABDOMEN 1 VIEWon 10-06-19 XR ABDOMEN 1 VIEW Normal [facility] XR CHEST 1 VIEWon 10-05-2024 XR CHEST 1 VIEW Normal [facility] CBC panel Auto (Bld)on 10-04 Erythrocyte distribution width (RBC) [Ratio] 17.1 % High 11.5-14.5 [facility] Comment on above: Performed By: #### 5 8410-2 ####ANNETTE Foss ([id number])[facility] ([facility])[address] [place] [address] 46476 Hematocrit (Bld) [Volume fraction] 36.2 % Low 41.0-52.0 [facility] Comment on above: Performed By: #### 5 8410-2 ####ANNETTE Foss ([id number])[facility] ([facility])[id number] [place] [address]33 Hemoglobin (Bld) [Mass/Vol] 11.6 g/dL Low 13.5-17.5 [facility] Comment on above: Performed By: #### 5 8410-2 ####ANNETTE Foss ([id number])[facility] ([facility])[address] [place] [address] MCH (RBC) [Entitic mass] 28.6 pg Normal 26.0-34.0 [facility] Comment on above: Performed By: #### 5 8410-2 ####ANNETTE Foss ([id number])[facility] ([facility])[address] [place] [address] MCHC (RBC) [Mass/Vol] 32.0 g/dL Normal 32.0-36.0 [facility] Comment on above: Performed By: #### 5 8410-2 ####ANNETTE Foss ([id number])[facility] ([facility])[address] [place] [address] MCV (RBC) [Entitic vol] 89 fL Normal 80-100 [facility] Comment on above: Performed By: #### 5 8410-2 ####ANNETTE Foss ([id number])[facility] ([facility])[address] [place] [address] Nucleated RBC/100 WBC (Bld) [Ratio] 0.2 /100 WBCs High 0.0-0.0 [facility] Comment on above: Performed By: #### 5 8410-2 ####ANNETTE Foss ([id number])[facility] ([facility])[address] [place] [address] Platelets (Bld) [#/Vol] 155 x10*3/uL Normal 150-450 [facility] Comment on above: Performed By: #### 5 8410-2 ####ANNETTE Foss ([id number])[facility] ([facility])[address] [place] [address] RBC (Bld) [#/Vol] 4.06 x10*6/uL Low 4.50-5.90 [facility] Comment on above: Performed By: #### 5 8410-2 ####ANNETTE Foss ([id number])[facility] ([facility])[address] [place] [address] WBC (Bld) [#/Vol] 14.3 x10*3/uL High 4.4-11.3 [facility] Comment on above: Performed By: #### 5 8410-2 ####ANNETTE Foss ([id number])[facility] ([facility])[address] [place] [address] Erythrocyte distribution width (RBC) [Ratio] 17.2 % High 11.5-14.5 [facility] Comment on above: Performed By: #### 5 8410-2 ####ANNETTE Foss ([id number])[facility] ([facility])[address] [place] [address] 86176 Hematocrit (Bld) [Volume fraction] 31.2 % Low 41.0-52.0 [facility] Comment on above: Performed By: #### 5 8410-2 ####ANNETTE Foss ([id number])[facility] ([facility])[address] [place] [address] 20463 Hemoglobin (Bld) [Mass/Vol] 10.2 g/dL Low 13.5-17.5 [facility] Comment on above: Performed By: #### 5 8410-2 ####ANNETTE Foss ([id number])[facility] ([facility])[address] [place] [address] MCH (RBC) [Entitic mass] 28.7 pg Normal 26.0-34.0 [facility] Comment on above: Performed By: #### 5 8410-2 ####ANNETTE Foss ([id number])[facility] ([facility])[address] [place] [address] MCHC (RBC) [Mass/Vol] 32.7 g/dL Normal 32.0-36.0 [facility] Comment on above: Performed By: #### 5 8410-2 ####ANNETTE Foss ([id number])[facility] ([facility])[address] [place] [address] MCV (RBC) [Entitic vol] 88 fL Normal 80-100 [facility] Comment on above: Performed By: #### 5 8410-2 ####ANNETTE Foss ([id number])[facility] ([facility])[address] [place] [address] 67798 Nucleated RBC/100 WBC (Bld) [Ratio] 0.3 /100 WBCs High 0.0-0.0 [facility] Comment on above: Performed By: #### 5 8410-2 ####ANNETTE Foss ([id number])[facility] ([facility])[address] [place] [address] 60534 Platelets (Bld) [#/Vol] 168 x10*3/uL Normal 150-450 [facility] Comment on above: Performed By: #### 5 8410-2 ####ANNETTE Foss ([id number])[facility] ([facility])[address] [place] [address] 50653 RBC (Bld) [#/Vol] 3.55 x10*6/uL Low 4.50-5.90 [facility] Comment on above: Performed By: #### 5 8410-2 ####ANNETTE Foss ([id number])[facility])[address] [place] [address] 44865 WBC (Bld) [#/Vol] 10.2 x10*3/uL Normal 4.4-11.3 [facility] Comment on above: Performed By: #### 5 8410-2 ####ANNETTE Foss ([id number])[facility] ([facility])[address] [place] [address] Calcium.ionizedon 10-04-2024 Calcium.ionized (Bld) [Moles/Vol] 1.15 mmol/L Normal 1.1-1.33 [facility] Comment on above: Result Comment: The performance characteristics of ionized calcium testedin heparinized plasma or serum have been validated [facility].Testing on heparinized plasma or serum is [facility]; however, such approval is not necessary. Performed By: #### 1 994-3 ####ANNETTE Foss ([id number])[facility] ([facility])[address] [place] [address] 85974 Calcium.ionized (Bld) [Moles/Vol] 1.18 mmol/L Normal 1.1-1.33 [facility] Comment on above: Result Comment: The performance characteristics of ionized calcium testedin heparinized plasma or serum have been validated [facility].Testing on heparinized plasma or serum is not [facility]; however, such approval is not necessary. Performed By: #### 1 994-3 ####ANNETTE Foss ([id number])[facility] ([facility])[address] [place] [address] 69176 Gas and Carbon monoxide and Electrolytes panel (BldA)on 10-04-2024 Anion gap 4 (BldA) [Moles/Vol] 12 mmo/L Normal 10-25 [facility] Comment on above: Performed By: #### 9 3685-6 ####ANNETTE Foss ([id number])[facility])[address] [place] [address] 08381 Base excess Calc (Bld) [Moles/Vol] 1.9 mmol/L Normal -2.0-3.0 [facility] Comment on above: Performed By: #### 9 3685-6 ####ANNETTE Foss ([id number])[facility])[address] [place] [address] 36685 Calcium.ionized (BldA) [Moles/Vol] 1.19 mmol/L Normal 1.10-1.33 [facility] Comment on above: Performed By: #### 9 3685-6 ####ANNETTE Foss ([id number])[facility])[address] [place] [address] Chloride (BldA) [Moles/Vol] 104 mmol/L Normal 98-107 [facility] Comment on above: Performed By: #### 9 3685-6 ####ANNETTE Foss ([id number])[facility])[address] [place] [address] CO2 (Bld) [Partial pressure] 41 mm Hg Normal 38-42 [facility] Comment on above: Performed By: #### 9 3685-6 ####ANNETTE Foss ([id number])[facility])[address] [place] [address] 71805 Glucose [Mass/Vol] 130 mg/dL High 74-99 [facility] Comment on above: Performed By: #### 9 3685-6 ####ANNETTE Foss ([id number])[facility])[address] [place] [address] 71608 HCO3 (Bld) [Moles/Vol] 26.6 mmol/L High 22.0-26.0 [facility] Comment on above: Performed By: #### 9 3685-6 ####ANNETTE Foss ([id number])[facility])[address] [place] [address] 21480 Hematocrit Est (Bld) [Volume fraction] 38.0 % Low 41.0-52.0 [facility] Comment on above: Performed By: #### 9 3685-6 ####ANNETTE Foss ([id number])[facility])[address] [place] [address] Hemoglobin (Bld) [Mass/Vol] 12.8 g/dL Low 13.5-17.5 [facility] Comment on above: Performed By: #### 9 3685-6 ####ANNETTE Foss ([id number])[facility])[address] [place] [address] 75902 Inhaled oxygen concentration 40 % Normal [facility] Comment on above: Performed By: #### 9 3685-6 ####ANNETTE GARCIA L ([id number])[facility])[address] [place] [address] 72410 Lactate (BldA) [Moles/Vol] 0.9 mmol/L Normal 0.4-2.0 [facility] Comment on above: Performed By: #### 9 3685-6 ####ANNETTE Foss ([id number])[facility])[address] [place] [address] 41952 Oxygen (Bld) [Partial pressure] 65 mm Hg Low 85-95 [facility] Comment on above: Performed By: #### 9 3685-6 ####ANNETTE Foss ([id number])[facility])[address] [place] [address] 55615 Oxyhemoglobin (BldA) [Mass fraction] 91.0 % Low 94.0-98.0 [facility] Comment on above: Performed By: #### 9 3685-6 ####ANNETTE Foss ([id number])[facility] ([facility])[address] [place] [address] 54952 pH (Bld) 7.42 [pH] Normal 7.38-7.42 [facility] Comment on above: Performed By: #### 9 3685-6 ####ANNETTE Foss ([id number])[facility] ([facility])[address] [place] [address] 33646 Potassium (BldA) [Moles/Vol] 4.3 mmol/L Normal 3.5-5.3 [facility] Comment on above: Performed By: #### 9 3685-6 ####ANNETTE Foss ([id number])[facility])[address] [place] [address] 95850 Sodium (BldA) [Moles/Vol] 138 mmol/L Normal 136-145 [facility] Comment on above: Performed By: #### 9 3685-6 ####ANNETTE Foss ([id number])[facility] ([facility])[address] [place] [address] 35738 Glucose Test strip manual (B ld) [Mass/Vol]on 10-04-2024 Glucose [Mass/Vol] 143 mg/dL High 74-99 [facility] Comment on above: Performed By: #### 2 341-6 ####ANNETTE Foss ([id number])[facility])[address] [facility] [place] [address] Glucose [Mass/Vol] 103 mg/dL High 74-99 [facility] Comment on above: Performed By: #### 2 341-6 ####ANNETTE Foss ([id number])[facility])[address] [place] [address] Glucose [Mass/Vol] 114 mg/dL High 74-99 [facility] Comment on above: Performed By: #### 2 341-6 ####ANNETTE Foss ([id number])[facility])[address] [place] [address] Glucose [Mass/Vol] 96 mg/dL Normal 74-99 [facility] Comment on above: Performed By: #### 2 341-6 ####ANNETTE Foss ([id number])[facility])[address] [place] [address] Glucose [Mass/Vol] 85 mg/dL Normal 74-99 [facility] Comment on above: Performed By: #### 2 341-6 ####ANNETTE Foss ([id number])[facility])[address] [place] [address] Magnesiumon 10-04-2024 Magnesium [Mass/Vol] 2.50 mg/dL High 1.60-2.40 [facility] Comment on above: Performed By: #### 1 9123-9 ####ANNETTE Foss ([id number])[facility])[address] [place] [address] Magnesium [Mass/Vol] 2.52 mg/dL High 1.60-2.40 [facility] Comment on above: Performed By: #### 1 9123-9 ####ANNETTE Foss ([id number])[facility])[address] [place] [address] 82899 PT and aPTT panel Coag (PPP) on 10-04-2024 aPTT Coag (PPP) [Time] 24 s Low 26-36 [facility] Comment on above: Order Comment: The A PTT is no longer used for monitoring Unfractionated Heparin Therapy. For monitoring Heparin Therapy, use the Heparin Assay. Performed By: #### 3 4529-8 ####ANNETTE Foss ([id number])[facility] ([facility])[address] [place] [address] 99572 INR Coag (PPP) [Relative time] 1.4 High 0.9-1.1 [facility] Comment on above: Order Comment: The A PTT is no longer used for monitoring Unfractionated Heparin Therapy. For monitoring Heparin Therapy, use the Heparin Assay. Performed By: #### 3 4529-8 ####ANNETTE Foss ([id number])[facility] ([facility])[address] [place] [address] 37321 PT Coag (PPP) [Time] 15.1 s High 9.8-12.4 [facility] Comment on above: Order Comment: The A PTT is no longer used for monitoring Unfractionated Heparin Therapy. For monitoring Heparin Therapy, use the Heparin Assay. Performed By: #### 3 4529-8 ####ANNETTE Foss ([id number])[facility] ([facility])[address] [place] [address] 46574 Renal function 2000 panelon 10-04-2024 Albumin BCP dye [Mass/Vol] 3.9 g/dL Normal 3.4-5.0 [facility] Comment on above: Performed By: #### 2 4362-6 ####ANNETTE Foss ([id number])[facility] ([facility])[address] [place] [address] 12424 Anion gap [Moles/Vol] 14 mmol/L Normal 10-20 [facility] Comment on above: Performed By: #### 2 4362-6 ####ANNETTE Foss (27556)[facility] ([facility])[address] [place] [address] Calcium [Mass/Vol] 8.9 mg/dL Normal 8.6-10.6 [facility] Comment on above: Performed By: #### 2 4362-6 ####ANNETTE Foss ([id number])[facility] ([facility])[address] [place] [address] Chloride [Moles/Vol] 104 mmol/L Normal 98-107 [facility] Comment on above: Performed By: #### 2 4362-6 ####ANNETTE GARCIA L (10727)[facility])[address] [place] [address] CO2 [Moles/Vol] 29 mmol/L Normal 21-32 [facility] Comment on above: Performed By: #### 2 4362-6 ####ANNETTE AGRCIA L ([id number])[facility])[address] [place] [address] Creatinine [Mass/Vol] 0.86 mg/dL Normal 0.50-1.30 [facility] Comment on above: Performed By: #### 2 4362-6 ####ANNETTE GARCIA L (82921)[facility])[address] [place] [address] Glomerular filtration rate 90 mL/min/1.73m*2 Normal >60 [facility] Comment on above: Result Comment: Calc ulations of estimated GFR are performed using the 2020 CKD-EPI Study Refit equation without the race variable for the IDMS-Traceable creatinine methods.https://jasn.asnjournals.org/content// ASN.4126362570 Performed By: #### 2 4362-6 ####ANNETTE GARCIA L ([id number])[facility] ([facility])[address] [place] [address] Glucose [Mass/Vol] 88 mg/dL Normal 74-99 [facility] Comment on above: Performed By: #### 2 4362-6 ####ANNETTE Foss ([id number])[facility])[address] [place] [address] Phosphate [Mass/Vol] 2.9 mg/dL Normal 2.5-4.9 [facility] Comment on above: Performed By: #### 2 4362-6 ####ANNETTE Foss (33709)[facility])[address] [place] [address] Potassium [Moles/Vol] 3.8 mmol/L Normal 3.5-5.3 [facility] Comment on above: Performed By: #### 2 4362-6 ####ANNETTE Foss ([id number])[facility])[address] [place] [address] Sodium [Moles/Vol] 143 mmol/L Normal 136-145 [facility] Comment on above: Performed By: #### 2 4362-6 ####ANNETTE Foss (78893)[facility])[address] [place] [address] Urea nitrogen [Mass/Vol] 40 mg/dL High 6-23 [facility] Comment on above: Performed By: #### 2 4362-6 ####ANNETTE Foss ([id number])[facility])[address] [place] [address] Albumin BCP dye [Mass/Vol] 3.5 g/dL Normal 3.4-5.0 [facility] Comment on above: Performed By: #### 2 4362-6 ####ANNETTE GARCIA L ([id number])[facility])[address] [place] [address] Anion gap [Moles/Vol] 13 mmol/L Normal 10-20 [facility] Comment on above: Performed By: #### 2 4362-6 ####ANNETTE GARCIA L (79899)[facility])[address] [place] [address] Calcium [Mass/Vol] 8.8 mg/dL Normal 8.6-10.6 [facility] Comment on above: Performed By: #### 2 4362-6 ####ANNETTE Foss (05367)[facility])[address] [place] [address] Chloride [Moles/Vol] 106 mmol/L Normal 98-107 [facility] Comment on above: Performed By: #### 2 4362-6 ####ANNETTE Foss (69343)[facility])[address] [place] [address] CO2 [Moles/Vol] 30 mmol/L Normal 21-32 [facility] Comment on above: Performed By: #### 2 4362-6 ####ANNETTE Foss (27451)[facility])[address] [place] [address] Creatinine [Mass/Vol] 0.87 mg/dL Normal 0.50-1.30 [facility] Comment on above: Performed By: #### 2 4362-6 ####ANNETTE Foss (69587)[facility])[address] [place] [address] Glomerular filtration rate 90 mL/min/1.73m*2 Normal >60 [facility] Comment on above: Result Comment: Calc ulations of estimated GFR are performed using the 2020 CKD-EPI Study Refit equation without the race variable for the IDMS-Traceable creatinine methods.https://jasn.asnjournals.org/content// ASN.4269423771 Performed By: #### 2 4362-6 ####ANNETTE Foss ([id number])[facility])[address] [place] [address] Glucose [Mass/Vol] 80 mg/dL Normal 74-99 [facility] Comment on above: Performed By: #### 2 4362-6 ####ANNETTE Foss ([id number])[facility])[address] [place] [address] Phosphate [Mass/Vol] 3.2 mg/dL Normal 2.5-4.9 [facility] Comment on above: Performed By: #### 2 4362-6 ####ANNETTE Foss ([id number])[facility])[address] [place] [address] Potassium [Moles/Vol] 3.8 mmol/L Normal 3.5-5.3 [facility] Comment on above: Performed By: #### 2 4362-6 ####ANNETTE Foss ([id number])[facility])[address] [place] [address] Sodium [Moles/Vol] 145 mmol/L Normal 136-145 [facility] Comment on above: Performed By: #### 2 4362-6 ####ANNETTE Foss (47871)[facility])[address] [place] [address] Urea nitrogen [Mass/Vol] 45 mg/dL High 6-23 [facility] Comment on above: Performed By: #### 2 4362-6 ####ANNETTE Foss ([id number])[facility])[address] [place] [address] Urinalysis complete panel (U )on 10-04-2024 Appearance (U) Ex.Turbid Normal Clear [facility] Comment on above: Performed By: #### 2 4356-8 ####ANNETTE GARCIA L (37305)[facility])[address] [place] [address] Bilirubin (U) [Mass/Vol] Negative Normal NEGATIVE [facility] Comment on above: Performed By: #### 2 4356-8 ####ANNETTE GARCIA L (86118)[facility])[address] [facility] [place] [address] Color (U) Yellow Normal Light-Yellow, Yellow, Dark-Yellow [facility] Comment on above: Performed By: #### 2 4356-8 ####ANNETTE Foss (13267)[facility])[address] [place] [address] Glucose Auto test strip (U) [Mass/Vol] Normal Normal Normal [facility] Comment on above: Performed By: #### 2 4356-8 ####ANNETTE Foss ([id number])[facility])[address] [facility] [place] [address] Ketones (U) [Mass/Vol] Negative Normal NEGATIVE [facility]: Performed By: #### 2 4356-8 ####ANNETTE Foss (95953)[facility])[address] [facility] [place] [address] Leukocyte esterase Auto test strip Ql (U) 500 Willow/uL Abnormal NEGATIVE [facility] Comment on above: Performed By: #### 2 4356-8 ####ANNETTE Foss (60711)[facility])[address] [facility] [place] [address] Nitrite Auto test strip Ql (U) Negative Normal NEGATIVE [facility] Comment on above: Performed By: #### 2 4356-8 ####ANNETTE Foss ([id number])[facility])[address] [facility] [place] [address] pH (U) 5.5 [pH] Normal 5.0, 5.5, 6.0, 6.5, 7.0, 7.5, 8.0 [facility] Comment on above: Performed By: #### 2 4356-8 ####ANNETTE Foss (60370)[facility])[address] [place] [address] Protein (U) [Mass/Vol] 50 (1+) Abnormal NEGAT SEUN, 10 (TRACE), 20 (TRACE) [facility] Comment on above: Performed By: #### 2 4356-8 ####ANNETTE Foss ([id number])[facility])[address] [place] [address] RBC (U) [#/Vol] 1.0 (3+) Abnormal NEGATIVE [facility] Comment on above: Performed By: #### 2 4356-8 ####ANNETTE Foss (25817)[facility])[address] [place] [address] Specific gravity (U) [Rel density] 1.019 Normal 1.005-1.035 [facility] Comment on above: Performed By: #### 2 4356-8 ####ANNETTE RAMSEYTZER L (76106)[facility])[address] [place] [address] Urobilinogen (U) [Mass/Vol] 2 (1+) Abnormal Normal [facility] Comment on above: Result Comment: Due to [...] urobilinogen. Performed By: #### 2 4356-8 ####ANNETTE Foss (23329)[facility])[address] [place] [address] Urinalysis microscopic panel Auto Ql (U)on 10-04-2024 Hyaline casts Auto (Urine sed) [#/Area] 1+ /LPF Abnormal NONE [facility] Comment on above: Performed By: #### 5 3315-8 ####ANNETTE Foss ([id number])[facility])[address] [place] [address] Leukocyte clumps Auto (Urine sed) [#/Area] OCCASIONAL Normal Reference range not established. [facility] Comment on above: Performed By: #### 5 3315-8 ####ANNETTE Foss (25076)[facility])[address] [place] [address] Mucus Auto (Urine sed) [#/Area] 2+ /LPF Normal Reference range not established. [facility] Comment on above: Performed By: #### 5 3315-8 ####ANNETTE Foss (18173)[facility])[address] [place] [address] RBC Auto (Urine sed) [#/Area] >20 Abnormal NONE, 1-2, 3-5 [facility] Comment on above: Performed By: #### 5 3315-8 ####ANNETTE Foss (72110)[facility])[address] [place] [address] WBC Auto (Urine sed) [#/Area] >50 Abnormal 1-5, NONE [facility] Comment on above: Performed By: #### 5 3315-8 ####ANNETTE Foss (57015)[facility] ([facility])[address] [place] [address] 40702 CBC panel Auto (Bld)on 10-03 Erythrocyte distribution width (RBC) [Ratio] 17.6 % High 11.5-14.5 [facility] Comment on above: Performed By: #### 5 8410-2 ####ANNETTE Foss ([id number])[facility])[address] [place] [address] Hematocrit (Bld) [Volume fraction] 31.9 % Low 41.0-52.0 [facility] Comment on above: Performed By: #### 5 8410-2 ####ANNETTE Foss (50690)[facility])[address] [place] [address] Hemoglobin (Bld) [Mass/Vol] 10.2 g/dL Low 13.5-17.5 [facility] Comment on above: Performed By: #### 5 8410-2 ####ANNETTE Foss ([id number])[facility])[address] [place] [address] MCH (RBC) [Entitic mass] 28.2 pg Normal 26.0-34.0 [facility] Comment on above: Performed By: #### 5 8410-2 ####ANNETTE Foss ([id number])[facility])[address] [place] [address] MCHC (RBC) [Mass/Vol] 32.0 g/dL Normal 32.0-36.0 [facility] Comment on above: Performed By: #### 5 8410-2 ####ANNETTE Foss ([id number])[facility])[address] [place] [address] MCV (RBC) [Entitic vol] 88 fL Normal 80-100 [facility] Comment on above: Performed By: #### 5 8410-2 ####ANNETTE Foss ([id number])[facility] ([facility])[address] [place] [address] Nucleated RBC/100 WBC (Bld) [Ratio] 0.2 /100 WBCs High 0.0-0.0 [facility] Comment on above: Performed By: #### 5 8410-2 ####ANNETTE Foss ([id number])[facility] ([facility])[address] [place] [address] Platelets (Bld) [#/Vol] 190 x10*3/uL Normal 150-450 [facility] Comment on above: Performed By: #### 5 8410-2 ####ANNETTE Foss ([id number])[facility] ([facility])[address] [place] [address] RBC (Bld) [#/Vol] 3.62 x10*6/uL Low 4.50-5.90 [facility] Comment on above: Performed By: #### 5 8410-2 ####ANNETTE Foss ([id number])[facility] ([facility])[address] [place] [address] WBC (Bld) [#/Vol] 10.3 x10*3/uL Normal 4.4-11.3 [facility] Comment on above: Performed By: #### 5 8410-2 ####ANNETTE Foss ([id number])[facility] ([facility])[id number] [place] [address] Erythrocyte distribution width (RBC) [Ratio] 17.8 % High 11.5-14.5 [facility] Comment on above: Performed By: #### 5 8410-2 ####ANNETTE Foss ([id number])[facility] ([facility])[id number] [place] [address] Hematocrit (Bld) [Volume fraction] 30.8 % Low 41.0-52.0 [facility] Comment on above: Performed By: #### 5 8410-2 ####ANNETTE Foss ([id number])[facility] ([facility])[address] [place] [address] Hemoglobin (Bld) [Mass/Vol] 9.6 g/dL Low 13.5-17.5 [facility] Comment on above: Performed By: #### 5 8410-2 ####ANNETTE Foss ([id number])[facility] ([facility])[id number] [place] [address] MCH (RBC) [Entitic mass] 28.8 pg Normal 26.0-34.0 [facility] Comment on above: Performed By: #### 5 8410-2 ####ANNETTE Foss ([id number])[facility] ([facility])[id number] [place] [address] MCHC (RBC) [Mass/Vol] 31.2 g/dL Low 32.0-36.0 [facility] Comment on above: Performed By: #### 5 8410-2 ####ANNETTE Foss ([id number])[facility] ([facility])[id number] [place] [address] MCV (RBC) [Entitic vol] 93 fL Normal 80-100 [facility] Comment on above: Performed By: #### 5 8410-2 ####ANNETTE Foss ([id number])[facility] ([facility])[address] [place] [address] Nucleated RBC/100 WBC (Bld) [Ratio] 0.4 /100 WBCs High 0.0-0.0 [facility] Comment on above: Performed By: #### 5 8410-2 ####ANNETTE Foss ([id number])[facility] [facility])[id number] [place] [address] 55990 Platelets (Bld) [#/Vol] 176 x10*3/uL Normal 150-450 [facility] Comment on above: Performed By: #### 5 8410-2 ####ANNETTE Foss ([id number])[facility])[address] [place] [address] 34231 RBC (Bld) [#/Vol] 3.33 x10*6/uL Low 4.50-5.90 [facility] Comment on above: Performed By: #### 5 8410-2 ####ANNETTE Foss ([id number])[facility] ([facility])[address] [place] [address] 54894 WBC (Bld) [#/Vol] 9.4 x10*3/uL Normal 4.4-11.3 [facility] Comment on above: Performed By: #### 5 8410-2 ####ANNETTE Foss ([id number])[facility])[address] [place] [address] 03173 Calcium.ionizedon 10-03-2024 Calcium.ionized (Bld) [Moles/Vol] 1.17 mmol/L Normal 1.1-1.33 [facility] Comment on above: Result Comment: The performance characteristics of ionized calcium testedin heparinized plasma or serum have been [facility].Testing on [facility]ized plasma or [facility]; however, such approval is not necessary. Performed By: #### 1 994-3 ####ANNETTE Foss ([id number])[facility])[address] [place] [address] Calcium.ionized (Bld) [Moles/Vol] 1.17 mmol/L Normal 1.1-1.33 [facility] Comment on above: Result Comment: The performance characteristics of ionized calcium testedin heparinized plasma or serum have been validated [facility].Testing on heparinized plasma or serum is not approved bythe [facility]; however, such approval is not necessary. Performed By: #### 1 994-3 ####ANNETTE Foss ([id number])[facility])[address] [place] [address] Gas and Carbon monoxide and Electrolytes panel (BldA)on 10-03-2024 Anion gap 4 (BldA) [Moles/Vol] 10 mmo/L Normal 10-25 [facility] Comment on above: Performed By: #### 9 3685-6 ####ANNETTE Foss ([id number])[facility])[address] [place] [address] Base excess Calc (Bld) [Moles/Vol] 1.0 mmol/L Normal -2.0-3.0 [facility] Comment on above: Performed By: #### 9 3685-6 ####ANNETTE Foss ([id number])[facility])[address] [place] [address] Calcium.ionized (BldA) [Moles/Vol] 1.19 mmol/L Normal 1.10-1.33 [facility] Comment on above: Performed By: #### 9 3685-6 ####ANNETTE Foss ([id number])[facility])[address] [place] [address] Chloride (BldA) [Moles/Vol] 110 mmol/L High 98-107 [facility] Comment on above: Performed By: #### 9 3685-6 ####ANNETTE Foss ([id number])[facility])[address] [place] [address] CO2 (Bld) [Partial pressure] 37 mm Hg Low 38-42 [facility] Comment on above: Performed By: #### 9 3685-6 ####ANNETTE Foss ([id number])[facility])[address] [place] [address] Glucose [Mass/Vol] 110 mg/dL High 74-99 [facility] Comment on above: Performed By: #### 9 3685-6 ####ANNETTE Foss ([id number])[facility])[address] [place] [address] 59673 HCO3 (Bld) [Moles/Vol] 25.1 mmol/L Normal 22.0-26.0 [facility] Comment on above: Performed By: #### 9 3685-6 ####ANNETTE Foss ([id number])[facility])[address] [place] [address] 48675 Hematocrit Est (Bld) [Volume fraction] 30.0 % Low 41.0-52.0 [facility] Comment on above: Performed By: #### 9 3685-6 ####ANNETTE Foss ([id number])[facility])[address] [place] [address] Hemoglobin (Bld) [Mass/Vol] 10.1 g/dL Low 13.5-17.5 [facility] Comment on above: Performed By: #### 9 3685-6 ####ANNETTE Foss ([id number])[facility])[address] [place] [address] 29101 Inhaled oxygen concentration 40 % Normal [facility] Comment on above: Performed By: #### 9 3685-6 ####ANNETTE Foss ([id number])[facility])[address] [place] [address] Lactate (BldA) [Moles/Vol] 0.8 mmol/L Normal 0.4-2.0 [facility] Comment on above: Performed By: #### 9 3685-6 ####ANNETTE Foss ([id number])[facility])[address] [place] [address] Oxygen (Bld) [Partial pressure] 111 mm Hg High 85-95 [facility] Comment on above: Performed By: #### 9 3685-6 ####ANNETTE Foss (26559)[facility])[address] [place] [address] Oxyhemoglobin (BldA) [Mass fraction] 97.4 % Normal 94.0-98.0 [facility] Comment on above: Performed By: #### 9 3685-6 ####ANNETTE Foss ([id number])[facility])[address] [place] [address] 48878 pH (Bld) 7.44 [pH] High 7.38-7.42 [facility] Comment on above: Performed By: #### 9 3685-6 ####ANNETTE Foss ([id number])[facility])[address] [place] [address] 79218 Potassium (BldA) [Moles/Vol] 3.8 mmol/L Normal 3.5-5.3 [facility] Comment on above: Performed By: #### 9 3685-6 ####ANNETTE Foss (48951)[facility])[address] [place] [address] 04091 Sodium (BldA) [Moles/Vol] 141 mmol/L Normal 136-145 [facility] Comment on above: Performed By: #### 9 3685-6 ####ANNETTE Foss (50559)[facility])[address] [place] [address] 83291 Glucose Test strip manual (B ld) [Mass/Vol]on 10-03-2024 Glucose [Mass/Vol] 116 mg/dL High 74-99 [facility] Comment on above: Performed By: #### 2 341-6 ####ANNETTE Foss ([id number])[facility])[address] [place] [address], [place] [address] Glucose [Mass/Vol] 103 mg/dL High 74-99 [facility] Comment on above: Performed By: #### 2 341-6 ####ANNETTE Foss ([id number])[facility])[address] [place] [address] Glucose [Mass/Vol] 102 mg/dL High 74-99 [facility] Comment on above: Performed By: #### 2 341-6 ####ANNETTE Foss ([id number])[facility])[address] [facility] [place] [address] Glucose [Mass/Vol] 91 mg/dL Normal 74-99 [facility] Comment on above: Performed By: #### 2 341-6 ####ANNETTE Foss ([id number])[facility])[address] [place] [address] Glucose [Mass/Vol] 98 mg/dL Normal 74-99 [facility] Comment on above: Performed By: #### 2 341-6 ####ANNETTE Foss ([id number])[facility])[address] [facility] [place] [address] Magnesiumon 10-03-2024 Magnesium [Mass/Vol] 2.52 mg/dL High 1.60-2.40 [facility] Comment on above: Performed By: #### 1 9123-9 ####ANNETTE Foss ([id number])[facility])[address] [place] [address] Magnesium [Mass/Vol] 2.66 mg/dL High 1.60-2.40 [facility] Comment on above: Performed By: #### 1 9123-9 ####ANNETTE Foss ([id number])[facility])[address] [facility] [place] [address] PT and aPTT panel Coag (PPP) on 10-03-2024 aPTT Coag (PPP) [Time] 24 s Low 26-36 [facility] Comment on above: Order Comment: The A PTT is no longer used for monitoring Unfractionated Heparin Therapy. For monitoring Heparin Therapy, use the Heparin Assay. Performed By: #### 3 4529-8 ####ANNETTE Foss ([id number])[facility])[address] [place] [address] 28184 INR Coag (PPP) [Relative time] 1.2 High 0.9-1.1 [facility] Comment on above: Order Comment: The A PTT is no longer used for monitoring Unfractionated Heparin Therapy. For monitoring Heparin Therapy, use the Heparin Assay. Performed By: #### 3 4529-8 ####ANNETTE Foss ([id number])[facility])[address] [place] [address] 15104 PT Coag (PPP) [Time] 13.0 s High 9.8-12.4 [facility] Comment on above: Order Comment: The A PTT is no longer used for monitoring Unfractionated Heparin Therapy. For monitoring Heparin Therapy, use the Heparin Assay. Performed By: #### 3 4529-8 ####ANNETTE Foss ([id number])[facility])[address] [place] [address] 30167 Renal function 2000 panelon 10-03-2024 Albumin BCP dye [Mass/Vol] 3.7 g/dL Normal 3.4-5.0 [facility] Comment on above: Performed By: #### 2 4362-6 ####ANNETTE Foss ([id number])[facility])[address] [place] [address] 37134 Anion gap [Moles/Vol] 16 mmol/L Normal 10-20 [facility] Comment on above: Performed By: #### 2 4362-6 ####ANNETTE Foss ([id number])[facility])[address] [place] [address] 55034 Calcium [Mass/Vol] 8.7 mg/dL Normal 8.6-10.6 [facility] Comment on above: Performed By: #### 2 4362-6 ####ANNETTE Foss ([id number])[facility])[address] [place] [address] Chloride [Moles/Vol] 106 mmol/L Normal 98-107 [facility] Comment on above: Performed By: #### 2 4362-6 ####ANNETTE GARCIA L ([id number])[facility])[address] [place] [address] CO2 [Moles/Vol] 27 mmol/L Normal 21-32 [facility] Comment on above: Performed By: #### 2 4362-6 ####ANNETTE GARCIA L (58402)[facility])[address] [place] [address] Creatinine [Mass/Vol] 0.97 mg/dL Normal 0.50-1.30 [facility] Comment on above: Performed By: #### 2 4362-6 ####ANNETTE GARCIA L ([id number])[facility])[address] [place] [address] Glomerular filtration rate 81 mL/min/1.73m*2 Normal >60 [facility] Comment on above: Result Comment: Calc ulations of estimated GFR are performed using the 2020 CKD-EPI Study Refit equation without the race variable for the IDMS-Traceable creatinine methods.https://jasn.asnjournals.org/content// ASN.7546916671 Performed By: #### 2 4362-6 ####ANNETTE GARCIA L ([id number])[facility])[address] [place] [address] Glucose [Mass/Vol] 95 mg/dL Normal 74-99 [facility] Comment on above: Performed By: #### 2 4362-6 ####ANNETTE GARCIA L (43052)[facility])[address] [place] [address] Phosphate [Mass/Vol] 3.3 mg/dL Normal 2.5-4.9 [facility] Comment on above: Performed By: #### 2 4362-6 ####ANNETTE Foss (36012)[facility])[address] [place] [address] Potassium [Moles/Vol] 4.3 mmol/L Normal 3.5-5.3 [facility] Comment on above: Performed By: #### 2 4362-6 ####ANNETTE Foss ([id number])[facility])[address] [place] [address] Sodium [Moles/Vol] 145 mmol/L Normal 136-145 [facility] Comment on above: Performed By: #### 2 4362-6 ####ANNETTE Foss (29804)[facility])[address] [place] [address] Urea nitrogen [Mass/Vol] 44 mg/dL High 6-23 [facility] Comment on above: Performed By: #### 2 4362-6 ####ANNETTE Foss ([id number])[facility])[address] [place] [address] Albumin BCP dye [Mass/Vol] 3.6 g/dL Normal 3.4-5.0 [facility] Comment on above: Performed By: #### 2 4362-6 ####ANNETTE Foss (39206)[facility])[address] [place] [address] Anion gap [Moles/Vol] 14 mmol/L Normal 10-20 [facility] Comment on above: Performed By: #### 2 4362-6 ####ANNETTE Foss (52420)[facility])[address] [place] [address] Calcium [Mass/Vol] 8.8 mg/dL Normal 8.6-10.6 [facility] Comment on above: Performed By: #### 2 4362-6 ####ANNETTE Foss (66447)[facility])[address] [place] [address] Chloride [Moles/Vol] 106 mmol/L Normal 98-107 [facility] Comment on above: Performed By: #### 2 4362-6 ####ANNETTE GARCIA L (48008)[facility])[address] [place] [address] CO2 [Moles/Vol] 30 mmol/L Normal 21-32 [facility] Comment on above: Performed By: #### 2 4362-6 ####ANNETTE Foss ([id number])[facility])[address] [place] [address] Creatinine [Mass/Vol] 0.95 mg/dL Normal 0.50-1.30 [facility] Comment on above: Performed By: #### 2 4362-6 ####ANNETTE Foss (47030)[facility])[address] [place] [address] Glomerular filtration rate 83 mL/min/1.73m*2 Normal >60 [facility] Comment on above: Result Comment: Calc ulations of estimated GFR are performed using the 2020 CKD-EPI Study Refit equation without the race variable for the IDMS-Traceable creatinine methods.https://jasn.asnjournals.org/content// ASN.7479767286 Performed By: #### 2 4362-6 ####ANNETTE Foss (20698)[facility])[address] [place] [address] Glucose [Mass/Vol] 94 mg/dL Normal 74-99 [facility] Comment on above: Performed By: #### 2 4362-6 ####ANNETTE GARCIA L (98082)[facility])[address] [place] [address] Phosphate [Mass/Vol] 3.4 mg/dL Normal 2.5-4.9 [facility] Comment on above: Performed By: #### 2 4362-6 ####ANNETTE Fsos (91453)[facility])[address] [place] [address] Potassium [Moles/Vol] 3.9 mmol/L Normal 3.5-5.3 [facility] Comment on above: Performed By: #### 2 4362-6 ####ANNETTE Foss (70704)[facility])[address] [place] [address] Sodium [Moles/Vol] 146 mmol/L High 136-145 [facility] Comment on above: Performed By: #### 2 4362-6 ####ANNETTE Foss (94396)[facility])[address] [place] [address] Urea nitrogen [Mass/Vol] 44 mg/dL High 6-23 [facility] Comment on above: Performed By: #### 2 436-6 ####ANNETTE Foss ([id number])[facility])[address] [place] [address] Albumin BCP dye [Mass/Vol] 3.5 g/dL Normal 3.4-5.0 [facility] Comment on above: Performed By: #### 2 4362-6 ####ANNETTE Foss (78058)[facility])[address] [place] [address] Anion gap [Moles/Vol] 13 mmol/L Normal 10-20 [facility] Comment on above: Performed By: #### 2 4362-6 ####ANNETTE Foss (90176)[facility])[address] [place] [address] Calcium [Mass/Vol] 9.0 mg/dL Normal 8.6-10.6 [facility] Comment on above: Performed By: #### 2 4362-6 ####ANNETTE Foss (04173)[facility])[address] [place] [address] Chloride [Moles/Vol] 108 mmol/L High 98-107 [facility] Comment on above: Performed By: #### 2 4362-6 ####ANNETTE GARCIA L ([id number])[facility])[address] [place] [address] CO2 [Moles/Vol] 28 mmol/L Normal 21-32 [facility] Comment on above: Performed By: #### 2 4362-6 ####ANNETTE Foss (77265)[facility])[address] [place] [address] Creatinine [Mass/Vol] 0.94 mg/dL Normal 0.50-1.30 [facility] Comment on above: Performed By: #### 2 4362-6 ####ANNETTE Foss (77788)[facility])[address] [place] [address] Glomerular filtration rate 85 mL/min/1.73m*2 Normal >60 [facility] Comment on above: Result Comment: Calc ulations of estimated GFR are performed using the 2020 CKD-EPI Study Refit equation without the race variable for the IDMS-Traceable creatinine methods.https://jasn.asnjournals.org/content/early/ ASN.4945675402 Performed By: #### 2 4362-6 ####ANNETTE Foss (27295)[facility])[address] [place] [address] Glucose [Mass/Vol] 110 mg/dL High 74-99 [facility] Comment on above: Performed By: #### 2 4362-6 ####ANNETTE Foss ([id number])[facility])[address] [place] [address] Phosphate [Mass/Vol] 3.5 mg/dL Normal 2.5-4.9 [facility] Comment on above: Performed By: #### 2 4362-6 ####ANNETTE Foss (28472)[facility])[address] [place] [address] Potassium [Moles/Vol] 4.0 mmol/L Normal 3.5-5.3 [facility] Comment on above: Performed By: #### 2 4362-6 ####ANNETTE Foss (35702)[facility])[address] [place] [address] Sodium [Moles/Vol] 145 mmol/L Normal 136-145 [facility] Comment on above: Performed By: #### 2 4362-6 ####ANNETTE Foss (38990)[facility])[address] [place] [address] Urea nitrogen [Mass/Vol] 42 mg/dL High 6-23 [facility] Comment on above: Performed By: #### 2 4362-6 ####ANNETTE Foss (48179)[facility])[address] [place] [address] 68559 XR ABDOMEN 1 VIEWon 10-04-19 XR ABDOMEN 1 VIEW Normal [facility] XR CHEST 1 VIEWon 10-03-2024 XR CHEST 1 VIEW Normal [facility] CBC panel Auto (Bld)on 10-02 Erythrocyte distribution width (RBC) [Ratio] 17.9 % High 11.5-14.5 [facility] Comment on above: Performed By: #### 5 8410-2 ####ANNETTE Foss (32505)[facility])[address] [place] [address] Hematocrit (Bld) [Volume fraction] 31.2 % Low 41.0-52.0 [facility] Comment on above: Performed By: #### 5 8410-2 ####ANNETTE Foss (41011)[facility])[address] [place] [address] Hemoglobin (Bld) [Mass/Vol] 9.8 g/dL Low 13.5-17.5 [facility] Comment on above: Performed By: #### 5 8410-2 ####ANNETTE Foss (85456)[facility])[address] [place] [address] MCH (RBC) [Entitic mass] 28.7 pg Normal 26.0-34.0 [facility] Comment on above: Performed By: #### 5 8410-2 ####ANNETTE Foss ([id number])[facility])[address] [place] [address] 52031 MCHC (RBC) [Mass/Vol] 31.4 g/dL Low 32.0-36.0 [facility] Comment on above: Performed By: #### 5 8410-2 ####ANNETTE Foss ([id number])[facility])[address] [place] [address] 33169 MCV (RBC) [Entitic vol] 91 fL Normal 80-100 [facility] Comment on above: Performed By: #### 5 8410-2 ####ANNETTE Foss (88783)[facility])[address] [place] [address] 50666 Nucleated RBC/100 WBC (Bld) [Ratio] 0.3 /100 WBCs High 0.0-0.0 [facility] Comment on above: Performed By: #### 5 8410-2 ####ANNETTE Foss (20383)[facility])[address] [place] [address] 92601 Platelets (Bld) [#/Vol] 172 x10*3/uL Normal 150-450 [facility] Comment on above: Performed By: #### 5 8410-2 ####ANNETTE Foss (35288)[facility])[address] [place] [address] 17805 RBC (Bld) [#/Vol] 3.42 x10*6/uL Low 4.50-5.90 [facility] Comment on above: Performed By: #### 5 8410-2 ####ANNETTE Foss (51868)[facility])[address] [place] [address] WBC (Bld) [#/Vol] 8.9 x10*3/uL Normal 4.4-11.3 [facility] Comment on above: Performed By: #### 5 8410-2 ####ANNETTE Foss ([id number])[facility])[address] [place] [address] 62231 Erythrocyte distribution width (RBC) [Ratio] 17.7 % High 11.5-14.5 [facility] Comment on above: Performed By: #### 5 8410-2 ####ANNETTE Foss (63101)[facility])[address] [place] [address] 30422 Hematocrit (Bld) [Volume fraction] 29.0 % Low 41.0-52.0 [facility] Comment on above: Performed By: #### 5 8410-2 ####ANNETTE Foss (30730)[facility])[address] [place] [address] Hemoglobin (Bld) [Mass/Vol] 9.7 g/dL Low 13.5-17.5 [facility] Comment on above: Performed By: #### 5 8410-2 ####ANNETTE Foss ([id number])[facility])[address] [place] [address] MCH (RBC) [Entitic mass] 28.6 pg Normal 26.0-34.0 [facility] Comment on above: Performed By: #### 5 8410-2 ####ANNETTE Foss (13243)[facility])[address] [place] [address] MCHC (RBC) [Mass/Vol] 33.4 g/dL Normal 32.0-36.0 [facility] Comment on above: Performed By: #### 5 8410-2 ####ANNETTE Foss (93608)[facility])[address] [place] [address] MCV (RBC) [Entitic vol] 86 fL Normal 80-100 [facility] Comment on above: Performed By: #### 5 8410-2 ####ANNETTE Foss (66893)[facility])[address] [place] [address] Nucleated RBC/100 WBC (Bld) [Ratio] 0.3 /100 WBCs High 0.0-0.0 [facility] Comment on above: Performed By: #### 5 8410-2 ####ANNETTE Foss (59160)[facility])[address] [place] [address] Platelets (Bld) [#/Vol] 154 x10*3/uL Normal 150-450 [facility] Comment on above: Performed By: #### 5 8410-2 ####ANNETTE Foss (85556)[facility])[address] [place] [address] RBC (Bld) [#/Vol] 3.39 x10*6/uL Low 4.50-5.90 [facility] Comment on above: Performed By: #### 5 8410-2 ####ANNETTE Foss ([id number])[facility] ([facility])[address] [place] [address] WBC (Bld) [#/Vol] 8.9 x10*3/uL Normal 4.4-11.3 [facility] Comment on above: Performed By: #### 5 8410-2 ####ANNETTE Foss ([id number])[facility] ([facility])[address] [place] [address] Erythrocyte distribution width (RBC) [Ratio] 17.9 % High 11.5-14.5 [facility] Comment on above: Performed By: #### 5 8410-2 ####ANNETTE Foss ([id number])[facility] ([facility])[address] [place] [address] Hematocrit (Bld) [Volume fraction] 27.5 % Low 41.0-52.0 [facility] Comment on above: Performed By: #### 5 8410-2 ####ANNETTE Foss ([id number])[facility] ([facility])[id number] [place] [address] Hemoglobin (Bld) [Mass/Vol] 9.1 g/dL Low 13.5-17.5 [facility] Comment on above: Performed By: #### 5 8410-2 ####ANNETTE Foss ([id number])[facility] ([facility])[address] [place] [address] MCH (RBC) [Entitic mass] 28.6 pg Normal 26.0-34.0 [facility] Comment on above: Performed By: #### 5 8410-2 ####ANNETTE Foss ([id number])[facility] ([facility])[address] [place] [address] MCHC (RBC) [Mass/Vol] 33.1 g/dL Normal 32.0-36.0 [facility] Comment on above: Performed By: #### 5 8410-2 ####ANNETTE Foss ([id number])[facility] ([facility])[id number] [place] [address] MCV (RBC) [Entitic vol] 87 fL Normal 80-100 [facility] Comment on above: Performed By: #### 5 8410-2 ####ANNETTE Foss ([id number])[facility] ([facility])[address] [place] [address] Nucleated RBC/100 WBC (Bld) [Ratio] 0.4 /100 WBCs High 0.0-0.0 [facility] Comment on above: Performed By: #### 5 8410-2 ####ANNETTE Foss ([id number])[facility] ([facility])[id number] [place] [address] Platelets (Bld) [#/Vol] 153 x10*3/uL Normal 150-450 [facility] Comment on above: Performed By: #### 5 8410-2 ####ANNETTE Foss ([id number])[facility] ([facility])[id number] [place] [address] RBC (Bld) [#/Vol] 3.18 x10*6/uL Low 4.50-5.90 [facility] Comment on above: Performed By: #### 5 8410-2 ####ANNETTE Foss ([id number])[facility] ([facility])[id number] [place] [address] WBC (Bld) [#/Vol] 8.1 x10*3/uL Normal 4.4-11.3 [facility] Comment on above: Performed By: #### 5 8410-2 ####ANNETTE Foss ([id number])[facility] ([facility])[id number] [place] [address] 44104 Erythrocyte distribution width (RBC) [Ratio] 17.7 % High 11.5-14.5 [facility] Comment on above: Performed By: #### 5 8410-2 ####ANNETTE Foss ([id number])[facility] ([facility])[id number] [place] [address] 99182 Hematocrit (Bld) [Volume fraction] 28.0 % Low 41.0-52.0 [facility] Comment on above: Performed By: #### 5 8410-2 ####ANNETTE Foss ([id number])[facility] ([facility])[address] [place] [address] 84829 Hemoglobin (Bld) [Mass/Vol] 9.4 g/dL Low 13.5-17.5 [facility] Comment on above: Performed By: #### 5 8410-2 ####ANNETTE Foss ([id number])[facility] ([facility])[address] [place] [address] MCH (RBC) [Entitic mass] 28.7 pg Normal 26.0-34.0 [facility] Comment on above: Performed By: #### 5 8410-2 ####ANNETTE Foss ([id number])[facility] ([facility])[address] [place] [address] MCHC (RBC) [Mass/Vol] 33.6 g/dL Normal 32.0-36.0 [facility] Comment on above: Performed By: #### 5 8410-2 ####ANNETTE Foss ([id number])[facility] ([facility])[address] [place] [address] MCV (RBC) [Entitic vol] 86 fL Normal 80-100 [facility] Comment on above: Performed By: #### 5 8410-2 ####ANNETTE Foss ([id number])[facility] ([facility])[address] [place] [address] Nucleated RBC/100 WBC (Bld) [Ratio] 0.5 /100 WBCs High 0.0-0.0 [facility] Comment on above: Performed By: #### 5 8410-2 ####ANNETTE Foss ([id number])[facility] ([facility])[address] [place] [address] Platelets (Bld) [#/Vol] 144 x10*3/uL Low 150-450 [facility] Comment on above: Performed By: #### 5 8410-2 ####ANNETTE Foss ([id number])[facility] ([facility])[address] [place] [address] RBC (Bld) [#/Vol] 3.27 x10*6/uL Low 4.50-5.90 [facility] Comment on above: Performed By: #### 5 8410-2 ####ANNETTE Foss ([id number])[facility] ([facility])[address] [place] [address] WBC (Bld) [#/Vol] 9.4 x10*3/uL Normal 4.4-11.3 [facility] Comment on above: Performed By: #### 5 8410-2 ####ANNETTE Foss ([id number])[facility] ([facility])[id number] [place] [address] 34910 Calcium.ionizedon 10-02-2024 Calcium.ionized (Bld) [Moles/Vol] 1.19 mmol/L Normal 1.1-1.33 [facility] Comment on above: Result Comment: The performance characteristics of ionized calcium testedin heparinized plasma or serum have [facility].Testing on heparinized plasma or serum [facility] FDA; however, such approval is not necessary. Performed By: #### 1 994-3 ####ANNETTE Foss ([id number])[facility] ([facility])[id number] [place] [address] 30530 Gas and Carbon monoxide and Electrolytes panel (BldA)on 10-02-2024 Anion gap 4 (BldA) [Moles/Vol] 10 mmo/L Normal 10-25 [facility] Comment on above: Performed By: #### 9 3685-6 ####ANNETTE Foss ([id number])[facility] ([facility])[address] [place] [address] 36748 Base excess Calc (Bld) [Moles/Vol] 1.0 mmol/L Normal -2.0-3.0 [facility] Comment on above: Performed By: #### 9 3685-6 ####ANNETTE Foss ([id number])[facility] ([facility])[id number] [place] [address] 63985 Calcium.ionized (BldA) [Moles/Vol] 1.19 mmol/L Normal 1.10-1.33 [facility] Comment on above: Performed By: #### 9 3685-6 ####ANNETTE Foss ([id number])[facility] ([facility])[address] [place] [address] 48318 Chloride (BldA) [Moles/Vol] 109 mmol/L High 98-107 [facility] Comment on above: Performed By: #### 9 3685-6 ####ANNETTE Foss ([id number])[facility])[address] [place] [address] CO2 (Bld) [Partial pressure] 37 mm Hg Low 38-42 [facility] Comment on above: Performed By: #### 9 3685-6 ####ANNETTE Foss ([id number])[facility])[address] [place] [address] Glucose [Mass/Vol] 116 mg/dL High 74-99 [facility] Comment on above: Performed By: #### 9 3685-6 ####ANNETTE Foss ([id number])[facility] ([facility])[address] [place] [address] 82798 HCO3 (Bld) [Moles/Vol] 25.1 mmol/L Normal 22.0-26.0 [facility] Comment on above: Performed By: #### 9 0575-6 ####ANNETTE Foss ([id number])[facility] ([facility])[address] [place] [address] Hematocrit Est (Bld) [Volume fraction] 31.0 % Low 41.0-52.0 [facility] Comment on above: Performed By: #### 9 3685-6 ####ANNETTE Foss ([id number])[facility])[address] [place] [address] Hemoglobin (Bld) [Mass/Vol] 10.3 g/dL Low 13.5-17.5 [facility] Comment on above: Performed By: #### 9 3685-6 ####ANNETTE Foss ([id number])[facility] ([facility])[address] [place] [address] 92105 Inhaled oxygen concentration 40 % Normal [facility] Comment on above: Performed By: #### 9 3685-6 ####ANNETTE Foss ([id number])[facility])[address] [place] [address] 97037 Lactate (BldA) [Moles/Vol] 0.8 mmol/L Normal 0.4-2.0 [facility] Comment on above: Performed By: #### 9 3685-6 ####ANNETTE Foss ([id number])[facility] ([facility])[address] [place] [address] Oxygen (Bld) [Partial pressure] 100 mm Hg High 85-95 [facility] Comment on above: Performed By: #### 9 3685-6 ####ANNETTE Foss (76331)[facility] ([facility])[address] [place] [address] Oxyhemoglobin (BldA) [Mass fraction] 96.7 % Normal 94.0-98.0 [facility] Comment on above: Performed By: #### 9 3685-6 ####ANNETTE Foss ([id number])[facility] ([facility])[address] [place] [address] pH (Bld) 7.44 [pH] High 7.38-7.42 [facility] Comment on above: Performed By: #### 9 3685-6 ####ANNETTE Foss ([id number])[facility] ([facility])[address] [place] [address] Potassium (BldA) [Moles/Vol] 4.2 mmol/L Normal 3.5-5.3 [facility] Comment on above: Performed By: #### 9 3685-6 ####ANNETTE Foss (47263)[facility] ([facility])[address] [place] [address] Sodium (BldA) [Moles/Vol] 140 mmol/L Normal 136-145 [facility] Comment on above: Performed By: #### 9 3685-6 ####ANNETTE Foss ([id number])[facility] ([facility])[address] [place] [address] Anion gap 4 (BldA) [Moles/Vol] 10 mmo/L Normal 10-25 [facility] Comment on above: Performed By: #### 9 3685-6 ####ANNETTE Foss ([id number])[facility] ([facility])[address] [place] [address] Base excess Calc (Bld) [Moles/Vol] -0.3000 mmol/L Normal -2.0-3.0 [facility] Comment on above: Performed By: #### 9 3685-6 ####ANNETTE Foss ([id number])[facility] ([facility])[address] [place] [address] Calcium.ionized (BldA) [Moles/Vol] 1.13 mmol/L Normal 1.10-1.33 [facility] Comment on above: Performed By: #### 9 3685-6 ####ANNETTE Foss ([id number])[facility] ([facility])[address] [place] [address] Chloride (BldA) [Moles/Vol] 107 mmol/L Normal 98-107 [facility] Comment on above: Performed By: #### 9 3685-6 ####ANNETTE Foss ([id number])[facility] ([facility])[address] [place] [address] CO2 (Bld) [Partial pressure] 37 mm Hg Low 38-42 [facility] Comment on above: Performed By: #### 9 3685-6 ####ANNETTE Foss ([id number])[facility] ([facility])[address] [place] [address] Glucose [Mass/Vol] 111 mg/dL High 74-99 [facility] Comment on above: Performed By: #### 9 3685-6 ####ANNETTE Foss ([id number])[facility] ([facility])[address] [place] [address] HCO3 (Bld) [Moles/Vol] 24.0 mmol/L Normal 22.0-26.0 [facility] Comment on above: Performed By: #### 9 3685-6 ####ANNETTE Foss (83451)[facility] ([facility])[address] [place] [address] Hematocrit Est (Bld) [Volume fraction] 34.0 % Low 41.0-52.0 [facility] Comment on above: Performed By: #### 9 3685-6 ####ANNETTE Foss (55656)[facility] ([facility])[address] [place] [address] Hemoglobin (Bld) [Mass/Vol] 11.4 g/dL Low 13.5-17.5 [facility] Comment on above: Performed By: #### 9 2945-6 ####ANNETTE Foss (80134)[facility] ([facility])[address] [place] [address] Inhaled oxygen concentration 35 % Normal [facility] Comment on above: Performed By: #### 9 9575-6 ####ANNETTE Foss (96556)[facility] ([facility])[address] [place] [address] Lactate (BldA) [Moles/Vol] 1.3 mmol/L Normal 0.4-2.0 [facility] Comment on above: Performed By: #### 9 3795-6 ####ANNETTE Foss ([id number])[facility] ([facility])[address] [place] [address] Oxygen (Bld) [Partial pressure] 81 mm Hg Low 85-95 [facility] Comment on above: Performed By: #### 9 3685-6 ####ANNETTE Foss (46268)[facility] ([facility])[address] [place] [address] Oxyhemoglobin (BldA) [Mass fraction] 95.1 % Normal 94.0-98.0 [facility] Comment on above: Performed By: #### 9 1125-6 ####ANNETTE Foss (76592)[facility] ([facility])[address] [place] [address] pH (Bld) 7.42 [pH] Normal 7.38-7.42 [facility] Comment on above: Performed By: #### 9 3685-6 ####ANNETTE Foss (44199)[facility] ([facility])[address] [place] [address] Potassium (BldA) [Moles/Vol] 3.9 mmol/L Normal 3.5-5.3 [facility] Comment on above: Performed By: #### 9 3685-6 ####ANNETTE Foss ([id number])[facility] ([facility])[address] [place] [address] Sodium (BldA) [Moles/Vol] 137 mmol/L Normal 136-145 [facility] Comment on above: Performed By: #### 9 3685-6 ####ANNETTE Foss ([id number])[facility] ([facility])[address] [place] [address] 15274 Glucose Test strip manual (B ld) [Mass/Vol]on 10-02-2024 Glucose [Mass/Vol] 122 mg/dL High [address] [place] [address] Comment on above: Performed By: #### 2 341-6 ####ANNETTE Foss ([id number])[facility] ([facility])[address] [place] [address] Glucose [Mass/Vol] 116 mg/dL High [address] [place] [address] Comment on above: Performed By: #### 2 341-6 ####ANNETTE Foss ([id number])[facility] ([facility])[address] [place] [address] Glucose [Mass/Vol] 128 mg/dL High [address] [place] [address] Comment on above: Performed By: #### 2 341-6 ####ANNETTE Foss ([id number])[facility] ([facility])[address] [place] [address] 93035 Glucose [Mass/Vol] 107 mg/dL High [address] [place] [address] Comment on above: Performed By: #### 2 341-6 ####ANNETTE Foss ([id number])[facility] ([facility])[address] [facility] [place] [address] Glucose [Mass/Vol] 111 mg/dL High 74-99 [facility] Comment on above: Performed By: #### 2 341-6 ####ANNETTE Foss (02473)[facility] ([facility])[address] [facility] [place] [address] Glucose [Mass/Vol] 107 mg/dL High 74-99 [facility] Comment on above: Performed By: #### 2 341-6 ####ANNETTE Foss ([id number])[facility] ([facility])[address] [place] [address] Magnesiumon 10-02-2024 Magnesium [Mass/Vol] 2.69 mg/dL High 1.60-2.40 [facility] Comment on above: Performed By: #### 1 9123-9 ####ANNETTE Foss ([id number])[facility] ([facility])[address] [place] [address] PT and aPTT panel Coag (PPP) on 10-02-2024 aPTT Coag (PPP) [Time] 23 s Low 26-36 [facility] Comment on above: Order Comment: The A PTT is no longer used for monitoring Unfractionated Heparin Therapy. For monitoring Heparin Therapy, use the Heparin Assay. Performed By: #### 3 4529-8 ####ANNETTE Foss ([id number])[facility] ([facility])[address] [place] [address] INR Coag (PPP) [Relative time] 1.1 Normal 0.9-1.1 [facility] Comment on above: Order Comment: The A PTT is no longer used for monitoring Unfractionated Heparin Therapy. For monitoring Heparin Therapy, use the Heparin Assay. Performed By: #### 3 4529-8 ####ANNETTE Foss ([id number])[facility] ([facility])[address] [facility] [place] [address] PT Coag (PPP) [Time] 12.3 s Normal 9.8-12.4 [facility] Comment on above: Order Comment: The A PTT is no longer used for monitoring Unfractionated Heparin Therapy. For monitoring Heparin Therapy, use the Heparin Assay. Performed By: #### 3 4529-8 ####ANNETTE Foss (78453)[facility] ([facility])[address] [place] [address] Renal function 2000 panelon 10-02-2024 Albumin BCP dye [Mass/Vol] 3.7 g/dL Normal 3.4-5.0 [facility] Comment on above: Performed By: #### 2 4362-6 ####ANNETTE Foss ([id number])[facility] ([facility])[address] [place] [address] Anion gap [Moles/Vol] 14 mmol/L Normal 10-20 [facility] Comment on above: Performed By: #### 2 4362-6 ####ANNETTE Foss (35391)[facility] ([facility])[address] [place] [address] Calcium [Mass/Vol] 8.9 mg/dL Normal 8.6-10.6 [facility] Comment on above: Performed By: #### 2 4362-6 ####ANNETTE Foss (76705)[facility] ([facility])[address] [place] [address] Chloride [Moles/Vol] 107 mmol/L Normal 98-107 [facility] Comment on above: Performed By: #### 2 4362-6 ####ANNETTE Foss ([id number])[facility] ([facility])[address] [place] [address] CO2 [Moles/Vol] 25 mmol/L Normal 21-32 [facility] Comment on above: Performed By: #### 2 4362-6 ####ANNETTE Foss (94057)[facility] ([facility])[address] [place] [address] Creatinine [Mass/Vol] 0.91 mg/dL Normal 0.50-1.30 [facility] Comment on above: Performed By: #### 2 4362-6 ####ANNETTE Foss (85506)[facility] ([facility])[address] [place] [address] Glomerular filtration rate 88 mL/min/1.73m*2 Normal >60 [facility] Comment on above: Result Comment: Calc ulations of estimated GFR are performed using the 2020 CKD-EPI Study Refit equation without the race variable for the IDMS-Traceable creatinine methods.https://jasn.asnjournals.org/content// ASN.7366989269 Performed By: #### 2 4362-6 ####ANNETTE Foss (75351)[facility] ([facility])[address] [place] [address] Glucose [Mass/Vol] 105 mg/dL High 74-99 [facility] Comment on above: Performed By: #### 2 4362-6 ####ANNETTE Foss ([id number])[facility] ([facility])[address] [place] [address] Phosphate [Mass/Vol] 2.8 mg/dL Normal 2.5-4.9 [facility] Comment on above: Performed By: #### 2 4362-6 ####ANNETTE Foss (85010)[facility] ([facility])[address] [place] [address] Potassium [Moles/Vol] 4.0 mmol/L Normal 3.5-5.3 [facility] Comment on above: Performed By: #### 2 4362-6 ####ANNETTE GARCIA L ([id number])[facility] ([facility])[address] [place] [address] Sodium [Moles/Vol] 142 mmol/L Normal 136-145 [facility] Comment on above: Performed By: #### 2 4362-6 ####ANNETTE Foss (04344)[facility] ([facility])[address] [place] [address] Urea nitrogen [Mass/Vol] 32 mg/dL High 6-23 [facility] Comment on above: Performed By: #### 2 4362-6 ####ANNETTE Foss ([id number])[facility] ([facility])[address] [place] [address]83 XR ABDOMEN 1 VIEWon 10-03-19 XR ABDOMEN 1 VIEW Normal [facility] XR CHEST 1 VIEWon 10-02-2024 XR CHEST 1 VIEW Normal [facility] Blood type and Indirect anti body screen panel (Bld)on 10-01-2024 ABO group Nom (Bld) A Normal [facility] Comment on above: Performed By: #### 3 4532-2 ####ANNETTE Foss ([id number])[facility] ([facility])[address] [place] [address] Blood group antibody screen Ql Negative [facility] Comment on above: Performed By: #### 3 4532-2 ####ANNETTE Foss ([id number])[facility] ([facility])[address] [place] [address] 67968 D Ag Ql (Bld) Positive [facility] Comment on above: Performed By: #### 3 4532-2 ####ANNETTE Foss ([id number])[facility] ([facility])[address] [place] [address] 7[address] CBC panel Auto (Bld)on 10-01 Erythrocyte distribution width (RBC) [Ratio] 17.3 % High 11.5-14.5 [facility] Comment on above: Performed By: #### 5 8410-2 ####ANNETTE Foss (73334)[facility] ([facility])[address] [place] [address] 14398 Hematocrit (Bld) [Volume fraction] 27.1 % Low 41.0-52.0 [facility] Comment on above: Performed By: #### 5 8410-2 ####ANNETTE Foss ([id number])[facility] ([facility])[address] [place] [address] Hemoglobin (Bld) [Mass/Vol] 9.4 g/dL Low 13.5-17.5 [facility] Comment on above: Performed By: #### 5 8410-2 ####ANNETTE Foss (73928)[facility] ([facility])[address] [place] [address] MCH (RBC) [Entitic mass] 29.4 pg Normal 26.0-34.0 [facility] Comment on above: Performed By: #### 5 8410-2 ####ANNETTE Foss (13497)[facility] ([facility])[address] [place] [address] 31666 MCHC (RBC) [Mass/Vol] 34.7 g/dL Normal 32.0-36.0 [facility] Comment on above: Performed By: #### 5 8410-2 ####ANNETTE Foss (84297)[facility] ([facility])[address] [place] [address] MCV (RBC) [Entitic vol] 85 fL Normal 80-100 [facility] Comment on above: Performed By: #### 5 8410-2 ####ANNETTE Foss (45712)[facility] ([facility])[address] [place] [address] Nucleated RBC/100 WBC (Bld) [Ratio] 0.3 /100 WBCs High 0.0-0.0 [facility] Comment on above: Performed By: #### 5 8410-2 ####ANNETTE Foss ([id number])[facility] ([facility])[address] [place] [address] Platelets (Bld) [#/Vol] 133 x10*3/uL Low 150-450 [facility] Comment on above: Performed By: #### 5 8410-2 ####ANNETTE Foss ([id number])[facility] ([facility])[address] [place] [address] RBC (Bld) [#/Vol] 3.20 x10*6/uL Low 4.50-5.90 [facility] Comment on above: Performed By: #### 5 8410-2 ####ANNETTE Foss ([id number])[facility] ([facility])[address] [place] [address] WBC (Bld) [#/Vol] 9.0 x10*3/uL Normal 4.4-11.3 [facility] Comment on above: Performed By: #### 5 8410-2 ####ANNETTE Foss ([id number])[facility] ([facility])[address] [place] [address] 02909 Erythrocyte distribution width (RBC) [Ratio] 17.8 % High 11.5-14.5 [facility] Comment on above: Performed By: #### 5 8410-2 ####ANNETTE Foss (98035)[facility] ([facility])[address] [place] [address]6079 Hematocrit (Bld) [Volume fraction] 28.2 % Low 41.0-52.0 [facility] Comment on above: Performed By: #### 5 8410-2 ####ANNETTE Foss (46863)[facility] ([facility])[address] [place] [address] 13035 Hemoglobin (Bld) [Mass/Vol] 9.2 g/dL Low 13.5-17.5 [facility] Comment on above: Performed By: #### 5 8410-2 ####ANNETTE Foss (57811)[facility] ([facility])[address] [place] [address] MCH (RBC) [Entitic mass] 28.9 pg Normal 26.0-34.0 [facility] Comment on above: Performed By: #### 5 8410-2 ####ANNETTE Foss (48876)[facility] ([facility])[address] [place] [address] 48822 MCHC (RBC) [Mass/Vol] 32.6 g/dL Normal 32.0-36.0 [facility] Comment on above: Performed By: #### 5 8410-2 ####ANNETTE Foss ([id number])[facility] ([facility])[address] [place] [address] MCV (RBC) [Entitic vol] 89 fL Normal 80-100 [facility] Comment on above: Performed By: #### 5 8410-2 ####ANNETTE Foss ([id number])[facility] ([facility])[address] [place] [address] 54940 Nucleated RBC/100 WBC (Bld) [Ratio] 0.4 /100 WBCs High 0.0-0.0 [facility] Comment on above: Performed By: #### 5 8410-2 ####ANNETTE Foss (50903)[facility] ([facility])[address] [place] [address] Platelets (Bld) [#/Vol] 124 x10*3/uL Low 150-450 [facility] Comment on above: Performed By: #### 5 8410-2 ####ANNETTE Foss ([id number])[facility] ([facility])[id number] [place] [address] 24265 RBC (Bld) [#/Vol] 3.18 x10*6/uL Low 4.50-5.90 [facility] Comment on above: Performed By: #### 5 8410-2 ####ANNETTE Foss ([id number])[facility] ([facility])[id number] [place] [address] WBC (Bld) [#/Vol] 8.9 x10*3/uL Normal 4.4-11.3 [facility] Comment on above: Performed By: #### 5 8410-2 ####ANNETTE Foss ([id number])[facility] ([facility])[address] [place] [address] Erythrocyte distribution width (RBC) [Ratio] 17.5 % High 11.5-14.5 [facility] Comment on above: Performed By: #### 5 8410-2 ####ANNETTE Foss ([id number])[facility] ([facility])[address] [place] [address] Hematocrit (Bld) [Volume fraction] 28.2 % Low 41.0-52.0 [facility] Comment on above: Performed By: #### 5 8410-2 ####ANNETTE Foss ([id number])[facility] ([facility])[address] [place] [address] Hemoglobin (Bld) [Mass/Vol] 9.1 g/dL Low 13.5-17.5 [facility] Comment on above: Performed By: #### 5 8410-2 ####ANNETTE Foss ([id number])[facility] ([facility])[address] [place] [address] MCH (RBC) [Entitic mass] 29.0 pg Normal 26.0-34.0 [facility] Comment on above: Performed By: #### 5 8410-2 ####ANNETTE Foss ([id number])[facility] ([facility])[address] [place] [address] MCHC (RBC) [Mass/Vol] 32.3 g/dL Normal 32.0-36.0 [facility] Comment on above: Performed By: #### 5 8410-2 ####ANNETTE Foss ([id number])[facility] ([facility])[address] [place] [address] MCV (RBC) [Entitic vol] 90 fL Normal 80-100 [facility] Comment on above: Performed By: #### 5 8410-2 ####ANNETTE Foss ([id number])[facility] ([facility])[address] [place] [address] Nucleated RBC/100 WBC (Bld) [Ratio] 0.2 /100 WBCs High 0.0-0.0 [facility] Comment on above: Performed By: #### 5 8410-2 ####ANNETTE Foss ([id number])[facility] ([facility])[address] [place] [address] Platelets (Bld) [#/Vol] 121 x10*3/uL Low 150-450 [facility] Comment on above: Performed By: #### 5 8410-2 ####ANNETTE Foss ([id number])[facility] ([facility])[id number] [place] [address]69[address] RBC (Bld) [#/Vol] 3.14 x10*6/uL Low 4.50-5.90 [facility] Comment on above: Performed By: #### 5 8410-2 ####ANNETTE Foss ([id number])[facility] ([facility])[id number] [place] [address]23[address] WBC (Bld) [#/Vol] 8.4 x10*3/uL Normal 4.4-11.3 [facility] Comment on above: Performed By: #### 5 8410-2 ####ANNETTE Foss ([id number])[facility] ([facility])[id number] [place] [address] Erythrocyte distribution width (RBC) [Ratio] 17.7 % High 11.5-14.5 [facility] Comment on above: Performed By: #### 5 8410-2 ####ANNETTE Foss ([id number])[facility] ([facility])[id number] [place] [address] 18624 Hematocrit (Bld) [Volume fraction] 25.4 % Low 41.0-52.0 [facility] Comment on above: Performed By: #### 5 8410-2 ####ANNETTE Foss ([id number])[facility] ([facility])[id number] [place] [address] 50127 Hemoglobin (Bld) [Mass/Vol] 7.8 g/dL Low 13.5-17.5 [facility] Comment on above: Performed By: #### 5 8410-2 ####ANNETTE Foss ([id number])[facility] ([facility])[address] [place] [address] MCH (RBC) [Entitic mass] 28.5 pg Normal 26.0-34.0 [facility] Comment on above: Performed By: #### 5 8410-2 ####ANNETTE Foss ([id number])[facility] ([facility])[address] [place] [address] MCHC (RBC) [Mass/Vol] 30.7 g/dL Low 32.0-36.0 [facility] Comment on above: Performed By: #### 5 8410-2 ####ANNETTE Foss ([id number])[facility] ([facility])[address] [place] [address] MCV (RBC) [Entitic vol] 93 fL Normal 80-100 [facility] Comment on above: Performed By: #### 5 8410-2 ####ANNETTE Foss ([id number])[facility] ([facility])[address] [place] [address] Nucleated RBC/100 WBC (Bld) [Ratio] 0.0 /100 WBCs Normal 0.0-0.0 [facility] Comment on above: Performed By: #### 5 8410-2 ####ANNETTE Foss ([id number])[facility] ([facility])[address] [place] [address] Platelets (Bld) [#/Vol] 107 x10*3/uL Low 150-450 [facility] Comment on above: Performed By: #### 5 8410-2 ####ANNETTE Foss (77020)[facility] ([facility])[address] [place] [address] RBC (Bld) [#/Vol] 2.74 x10*6/uL Low 4.50-5.90 [facility] Comment on above: Performed By: #### 5 8410-2 ####ANNETTE Foss ([id number])[facility] ([facility])[address] [place] [address] WBC (Bld) [#/Vol] 8.2 x10*3/uL Normal 4.4-11.3 [facility] Comment on above: Performed By: #### 5 8410-2 ####ANNETTE Foss ([id number])[facility] ([facility])[address] [place] [address] CT ABDOMEN PELVIS WO IV CONT RASTon 10-01-2024 CT ABDOMEN PELVIS WO IV CONTRAST Normal [facility] Calcium.ionizedon 10-01-2024 Calcium.ionized (Bld) [Moles/Vol] 1.21 mmol/L Normal 1.1-1.33 [facility] Comment on above: Result Comment: The performance characteristics of ionized calcium testedin heparinized plasma or serum have [facility].Testing on heparinized plasma or serum [facility]; however, such approval is not necessary. Performed By: #### 1 994-3 ####ANNETTE Foss ([id number])[facility] ([facility])[address] [place] [address] 40719 Calcium.ionized (Bld) [Moles/Vol] 1.06 mmol/L Low 1.1-1.33 [facility] Comment on above: Result Comment: The performance characteristics of ionized calcium testedin heparinized plasma or serum have been validated [facility].Testing on heparinized plasma or serum is not [facility] FDA; however, such approval is not necessary. Performed By: #### 1 994-3 ####ANNETTE Foss (20945)[facility] ([facility])[address] [place] [address] Creatine kinaseon 10-01-2024 CK [Catalytic activity/Vol] 76 U/L Normal 0-325 [facility] Comment on above: Performed By: #### 2 157-6 ####ANNETTE Foss ([id number])[facility] ([facility])[address] [place] [address] 18785 Gas and Carbon monoxide and Electrolytes panel (BldA)on 10-01-2024 Anion gap 4 (BldA) [Moles/Vol] 11 mmo/L Normal 10-25 [facility] Comment on above: Performed By: #### 9 3685-6 ####ANNETTE Foss ([id number])[facility] ([facility])[address] [place] [address] Base excess Calc (Bld) [Moles/Vol] 0.6 mmol/L Normal -2.0-3.0 [facility] Comment on above: Performed By: #### 9 3685-6 ####ANNETTE Foss ([id number])[facility] ([facility])[address] [place] [address] Calcium.ionized (BldA) [Moles/Vol] 1.24 mmol/L Normal 1.10-1.33 [facility] Comment on above: Performed By: #### 9 3685-6 ####ANNETTE Foss ([id number])[facility] ([facility])[address] [place] [address] Chloride (BldA) [Moles/Vol] 105 mmol/L Normal 98-107 [facility] Comment on above: Performed By: #### 9 3685-6 ####ANNETTE Foss ([id number])[facility] ([facility])[address] [place] [address] CO2 (Bld) [Partial pressure] 34 mm Hg Low 38-42 [facility] Comment on above: Performed By: #### 9 3685-6 ####ANNETTE Foss ([id number])[facility] ([facility])[address] [place] [address] Glucose [Mass/Vol] 114 mg/dL High 74-99 [facility] Comment on above: Performed By: #### 9 3685-6 ####ANNETTE Foss ([id number])[facility] ([facility])[address] [place] [address] HCO3 (Bld) [Moles/Vol] 24.2 mmol/L Normal 22.0-26.0 [facility] Comment on above: Performed By: #### 9 3685-6 ####ANNETTE Foss ([id number])[facility] ([facility])[address] [place] [address] 09081 Hematocrit Est (Bld) [Volume fraction] 30.0 % Low 41.0-52.0 [facility] Comment on above: Performed By: #### 9 3685-6 ####ANNETTE Foss ([id number])[facility] ([facility])[address] [place] [address] 56381 Hemoglobin (Bld) [Mass/Vol] 9.9 g/dL Low 13.5-17.5 [facility] Comment on above: Performed By: #### 9 3685-6 ####ANNETTE Foss ([id number])[facility] ([facility])[address] [place] [address] 26070 Inhaled oxygen concentration 35 % Normal [facility] Comment on above: Performed By: #### 9 2055-6 ####ANNETTE Foss ([id number])[facility] ([facility])[address] [place] [address] 86529 Lactate (BldA) [Moles/Vol] 1.1 mmol/L Normal 0.4-2.0 [facility] Comment on above: Performed By: #### 9 3685-6 ####ANNETTE Foss ([id number])[facility] ([facility])[address] [place] [address] 17014 Oxygen (Bld) [Partial pressure] 78 mm Hg Low 85-95 [facility] Comment on above: Performed By: #### 9 3685-6 ####ANNETTE Foss ([id number])[facility] ([facility])[address] [place] [address] 47565 Oxyhemoglobin (BldA) [Mass fraction] 95.6 % Normal 94.0-98.0 [facility] Comment on above: Performed By: #### 9 7455-6 ####ANNETTE Foss ([id number])[facility] ([facility])[address] [place] [address] pH (Bld) 7.46 [pH] High 7.38-7.42 [facility] Comment on above: Performed By: #### 9 3685-6 ####ANNETTE Foss ([id number])[facility] ([facility])[address] [place] [address] 72125 Potassium (BldA) [Moles/Vol] 3.7 mmol/L Normal 3.5-5.3 [facility] Comment on above: Performed By: #### 9 3685-6 ####ANNETTE Foss (49402)[facility] ([facility])[address] [place] [address] 93562 Sodium (BldA) [Moles/Vol] 136 mmol/L Normal 136-145 [facility] Comment on above: Performed By: #### 9 3685-6 ####ANNETTE Foss ([id number])[facility] ([facility])[address] [place] [address] 65970 Anion gap 4 (BldA) [Moles/Vol] 11 mmo/L Normal 10-25 [facility] Comment on above: Performed By: #### 9 3685-6 ####ANNETTE Foss ([id number])[facility] ([facility])[address] [place] [address] 50466 Base excess Calc (Bld) [Moles/Vol] -1.4000 mmol/L Normal -2.0-3.0 [facility] Comment on above: Performed By: #### 9 3685-6 ####ANENTTE Foss (49120)[facility] ([facility])[address] [place] [address] 40467 Calcium.ionized (BldA) [Moles/Vol] 1.12 mmol/L Normal 1.10-1.33 [facility] Comment on above: Performed By: #### 9 3685-6 ####ANNETTE Foss ([id number])[facility] ([facility])[address] [place] [address] Chloride (BldA) [Moles/Vol] 105 mmol/L Normal 98-107 [facility] Comment on above: Performed By: #### 9 3685-6 ####ANNETTE Foss ([id number])[facility])[address] [place] [address] CO2 (Bld) [Partial pressure] 34 mm Hg Low 38-42 [facility] Comment on above: Performed By: #### 9 3685-6 ####ANNETTE GARCIA L (62200)[facility] ([facility])[address] [place] [address] Glucose [Mass/Vol] 144 mg/dL High 74-99 [facility] Comment on above: Performed By: #### 9 3685-6 ####ANNETTE GARCIA L (81009)[facility] ([facility])[address] [place] [address] HCO3 (Bld) [Moles/Vol] 22.6 mmol/L Normal 22.0-26.0 [facility] Comment on above: Performed By: #### 9 3685-6 ####ANNETTE GARCIA L ([id number])[facility] ([facility])[address] [place] [address] Hematocrit Est (Bld) [Volume fraction] 26.0 % Low 41.0-52.0 [facility] Comment on above: Performed By: #### 9 3685-6 ####ANNETTE GARCIA L ([id number])[facility] ([facility])[address] [place] [address] Hemoglobin (Bld) [Mass/Vol] 8.5 g/dL Low 13.5-17.5 [facility] Comment on above: Performed By: #### 9 3685-6 ####ANNETTE GARCIA L (47064)[facility] ([facility])[address] [place] [address] Inhaled oxygen concentration 40 % Normal [facility] Comment on above: Performed By: #### 9 3685-6 ####ANNETTE Foss (28242)[facility] ([facility])[address] [place] [address] Lactate (BldA) [Moles/Vol] 0.9 mmol/L Normal 0.4-2.0 [facility] Comment on above: Performed By: #### 9 3685-6 ####ANNETTE Foss (30584)[facility] ([facility])[address] [place] [address] Oxygen (Bld) [Partial pressure] 87 mm Hg Normal 85-95 [facility] Comment on above: Performed By: #### 9 3685-6 ####ANNETTE Foss (43460)[facility] ([facility])[address] [place] [address] 37965 Oxyhemoglobin (BldA) [Mass fraction] 96.5 % Normal 94.0-98.0 [facility] Comment on above: Performed By: #### 9 8195-6 ####ANNETTE Foss ([id number])[facility] ([facility])[address] [place] [address] pH (Bld) 7.43 [pH] High 7.38-7.42 [facility] Comment on above: Performed By: #### 9 3685-6 ####ANNETTE Foss (77494)[facility] ([facility])[address] [place] [address] Potassium (BldA) [Moles/Vol] 3.8 mmol/L Normal 3.5-5.3 [facility] Comment on above: Performed By: #### 9 3685-6 ####ANNETTE Foss ([id number])[facility] ([facility])[address] [place] [address] Sodium (BldA) [Moles/Vol] 135 mmol/L Low 136-145 [facility] Comment on above: Performed By: #### 9 5255-6 ####ANNETTE Foss ([id number])[facility] ([facility])[address] [place] [address] Glucose Test strip manual (B ld) [Mass/Vol]on 10-01-2024 Glucose [Mass/Vol] 104 mg/dL High 74-99 [facility] Comment on above: Performed By: #### 2 341-6 ####ANNETTE Foss ([id number])[facility] ([facility])[address] [place] [address] Glucose [Mass/Vol] 110 mg/dL High 74-99 [facility] Comment on above: Performed By: #### 2 341-6 ####ANNETTE Foss ([id number])[facility] ([facility])[address] [place] [address] 50223 Glucose [Mass/Vol] 112 mg/dL High 74-99 [facility] Comment on above: Performed By: #### 2 341-6 ####ANNETTE Foss ([id number])[facility] ([facility])[address] [place] [address] 67870 Glucose [Mass/Vol] 97 mg/dL Normal -99 [facility] Comment on above: Performed By: #### 2 341-6 ####ANNETTE Foss ([id number])[facility] ([facility])[address] [place] [address] 56350 Hepatic function 2000 panelo n 10-01-2024 ALP [Catalytic activity/Vol] 33 U/L Normal 33-136 [facility] Comment on above: Performed By: #### 2 4325-3 ####ANNETTE Foss ([id number])[facility] ([facility])[address] [place] [address] ALT With P-5'-P [Catalytic activity/Vol] 11 U/L Normal 10-52 [facility] Comment on above: Result Comment: Jaqueline ents treated with Sulfasalazine may generate falsely decreased results for ALT. Performed By: #### 2 4325-3 ####ANNETTE Foss (57392)[facility] ([facility])[address] [facility] [place] [address] AST With P-5'-P [Catalytic activity/Vol] 14 U/L Normal 9-39 [facility] Comment on above: Performed By: #### 2 4325-3 ####ANNETTE Foss ([id number])[facility] ([facility])[address] [facility] [place] [address] Bilirubin [Mass/Vol] 1.3 mg/dL High 0.0-1.2 [facility] Comment on above: Performed By: #### 2 4325-3 ####ANNETTE Foss (55804)[facility] ([facility])[address] [place] [address] Bilirubin.direct [Mass/Vol] 0.5 mg/dL High 0.0-0.3 [facility] Comment on above: Performed By: #### 2 4325-3 ####ANNETTE Foss ([id number])[facility] ([facility])[address] [place] [address] Protein [Mass/Vol] 5.1 g/dL Low 6.4-8.2 [facility] Comment on above: Performed By: #### 2 4325-3 ####ANNETTE Foss ([id number])[facility] ([facility])[address] [place] [address] Magnesiumon 10-01-2024 Magnesium [Mass/Vol] 2.47 mg/dL High 1.60-2.40 [facility] Comment on above: Performed By: #### 1 9123-9 ####ANNETTE Foss ([id number])[facility] ([facility])[address] [place] [address] Magnesium [Mass/Vol] 2.30 mg/dL Normal 1.60-2.40 [facility] Comment on above: Performed By: #### 1 9123-9 ####ANNETTE Foss ([id number])[facility] ([facility])[address] [place] [address] PT and aPTT panel Coag (PPP) on 10-01-2024 aPTT Coag (PPP) [Time] 24 s Low 26-36 Un [facility] Comment on above: Order Comment: The A PTT is no longer used for monitoring Unfractionated Heparin Therapy. For monitoring Heparin Therapy, use the Heparin Assay. Performed By: #### 3 4529-8 ####ANNETTE Foss (41206)[facility] ([facility])[address] [place] [address] 73445 INR Coag (PPP) [Relative time] 1.3 High 0.9-1.1 [facility] Comment on above: Order Comment: The A PTT is no longer used for monitoring Unfractionated Heparin Therapy. For monitoring Heparin Therapy, use the Heparin Assay. Performed By: #### 3 4529-8 ####ANNETTE Foss (09386)[facility] ([facility])[address] [place] [address] 11215 PT Coag (PPP) [Time] 14.4 s High 9.8-12.4 [facility] Comment on above: Order Comment: The A PTT is no longer used for monitoring Unfractionated Heparin Therapy. For monitoring Heparin Therapy, use the Heparin Assay. Performed By: #### 3 4529-8 ####ANNETTE Foss ([id number])[facility] ([facility])[address] [place] [address] 78820 Renal function 2000 panelon 10-01-2024 Albumin BCP dye [Mass/Vol] 3.8 g/dL Normal 3.4-5.0 [facility] Comment on above: Performed By: #### 2 4362-6 ####ANNETTE Foss ([id number])[facility] ([facility])[address] [place] [address] 49703 Anion gap [Moles/Vol] 16 mmol/L Normal 10-20 [facility] Comment on above: Performed By: #### 2 4362-6 ####ANNETTE Foss (86607)[facility] ([facility])[address] [place] [address] 97279 Calcium [Mass/Vol] 8.9 mg/dL Normal 8.6-10.6 [facility] Comment on above: Performed By: #### 2 4362-6 ####ANNETTE GARCIA L ([id number])[facility] ([facility])[address] [place] [address] Chloride [Moles/Vol] 105 mmol/L Normal 98-107 [facility] Comment on above: Performed By: #### 2 4362-6 ####ANNETTE GARCIA L (28930)[facility])[address] [place] [address] CO2 [Moles/Vol] 25 mmol/L Normal 21-32 [facility] Comment on above: Performed By: #### 2 4362-6 ####ANNETTE GARCIA L ([id number])[facility] ([facility])[address] [place] [address] Creatinine [Mass/Vol] 0.82 mg/dL Normal 0.50-1.30 [facility] Comment on above: Performed By: #### 2 4362-6 ####ANNETTE GARCIA L (37395)[facility] ([facility])[address] [place] [address] Glomerular filtration rate >90 Normal >60 [facility] Comment on above: Result Comment: Calc ulations of estimated GFR are performed using the 2020 CKD-EPI Study Refit equation without the race variable for the IDMS-Traceable creatinine methods.https://jasn.asnjournals.org/content/early// ASN.2912893229 Performed By: #### 2 4362-6 ####ANNETTE GARCIA L (26715)[facility] ([facility])[address] [place] [address] Glucose [Mass/Vol] 109 mg/dL High 74-99 [facility] Comment on above: Performed By: #### 2 4362-6 ####ANNETTE GARCIA L (63815)[facility] ([facility])[address] [place] [address] Phosphate [Mass/Vol] 2.3 mg/dL Low 2.5-4.9 [facility] Comment on above: Performed By: #### 2 4362-6 ####ANNETTE Foss ([id number])[facility] ([facility])[address] [place] [address] Potassium [Moles/Vol] 3.7 mmol/L Normal 3.5-5.3 [facility] Comment on above: Performed By: #### 2 4362-6 ####ANNETTE Foss (24648)[facility])[address] [place] [address] Sodium [Moles/Vol] 142 mmol/L Normal 136-145 [facility] Comment on above: Performed By: #### 2 4362-6 ####ANNETTE Foss (70202)[facility])[address] [place] [address] Urea nitrogen [Mass/Vol] 31 mg/dL High 6-23 [facility] Comment on above: Performed By: #### 2 4362-6 ####ANNETTE Foss (65120)[facility] ([facility])[address] [place] [address] Albumin BCP dye [Mass/Vol] 3.7 g/dL Normal 3.4-5.0 [facility] Comment on above: Performed By: #### 2 4362-6 ####ANNETTE Foss (74228)[facility] ([facility])[address] [place] [address] Performed By: #### 2 4325-3 ####ANNETTE Foss (53766)[facility] ([facility])[address] [place] [address] Anion gap [Moles/Vol] 15 mmol/L Normal 10-20 [facility] Comment on above: Performed By: #### 2 4362-6 ####ANNETTE Foss (80590)[facility] ([facility])[address] [place] [address] Calcium [Mass/Vol] 8.2 mg/dL Low 8.6-10.6 [facility] Comment on above: Performed By: #### 2 4362-6 ####ANNETTE Foss (10027)[facility])[address] [place] [address] Chloride [Moles/Vol] 103 mmol/L Normal 98-107 [facility] Comment on above: Performed By: #### 2 4362-6 ####ANNETTE GARCIA L (37527)[facility] ([facility])[address] [place] [address] CO2 [Moles/Vol] 23 mmol/L Normal 21-32 [facility] Comment on above: Performed By: #### 2 4362-6 ####ANNETTE Foss ([id number])[facility] ([facility])[address] [place] [address] Creatinine [Mass/Vol] 0.84 mg/dL Normal 0.50-1.30 [facility] Comment on above: Performed By: #### 2 4362-6 ####ANNETTE GARCIA L (57944)[facility] ([facility])[address] [place] [address] Glomerular filtration rate >90 Normal >60 [facility] Comment on above: Result Comment: Calc ulations of estimated GFR are performed using the 2020 CKD-EPI Study Refit equation without the race variable for the IDMS-Traceable creatinine methods.https://jasn.asnjournals.org/content// ASN.8853886239 Performed By: #### 2 4362-6 ####ANNETTE GARCIA L (94597)[facility] ([facility])[address] [place] [address] Glucose [Mass/Vol] 151 mg/dL High 74-99 [facility] Comment on above: Performed By: #### 2 4362-6 ####ANNETTE Foss (70769)[facility] ([facility])[address] [place] [address] Phosphate [Mass/Vol] 2.5 mg/dL Normal 2.5-4.9 [facility] Comment on above: Performed By: #### 2 4362-6 ####ANNETTE Foss (56362)[facility] ([facility])[address] [place] [address] Potassium [Moles/Vol] 3.8 mmol/L Normal 3.5-5.3 [facility] Comment on above: Performed By: #### 2 4362-6 ####ANNETTE Foss (25295)[facility] ([facility])[address] [place] [address] Sodium [Moles/Vol] 137 mmol/L Normal 136-145 [facility] Comment on above: Performed By: #### 2 4362-6 ####ANNETTE Foss (94721)[facility] ([facility])[address] [place] [address] Urea nitrogen [Mass/Vol] 31 mg/dL High 6-23 [facility] Comment on above: Performed By: #### 2 4362-6 ####ANNETTE Foss ([id number])[facility] ([facility])[address] [place] [address] XR CHEST 1 VIEWon 10-01-2024 XR CHEST 1 VIEW Normal [facility] Bacteriaon 09-30-2024 Bacteria identified Respiratory culture Nom (Unsp spec) Abnormal [facility] Comment on above: Performed By: #### 3 2355-0 ####ANNETTE Foss (18603)[facility] ([facility])[address] [place] [address] CBC panel Auto (Bld)on 09-30 Erythrocyte distribution width (RBC) [Ratio] 17.2 % High 11.5-14.5 [facility] Comment on above: Performed By: #### 5 8410-2 ####ANNETTE Foss ([id number])[facility] ([facility])[address] [place] [address] Hematocrit (Bld) [Volume fraction] 23.2 % Low 41.0-52.0 [facility] Comment on above: Performed By: #### 5 8410-2 ####ANNETTE Foss ([id number])[facility] ([facility])[address] [place] [address] Hemoglobin (Bld) [Mass/Vol] 7.7 g/dL Low 13.5-17.5 [facility] Comment on above: Performed By: #### 5 8410-2 ####ANNETTE Foss ([id number])[facility] ([facility])[id number] [place] [address] 29477 MCH (RBC) [Entitic mass] 28.2 pg Normal 26.0-34.0 [facility] Comment on above: Performed By: #### 5 8410-2 ####ANNETTE Foss ([id number])[facility] ([facility])[id number] [place] [address] 12489 MCHC (RBC) [Mass/Vol] 33.2 g/dL Normal 32.0-36.0 [facility] Comment on above: Performed By: #### 5 8410-2 ####ANNETTE Foss ([id number])[facility] ([facility])[id number] [place] [address] 14920 MCV (RBC) [Entitic vol] 85 fL Normal 80-100 [facility] Comment on above: Performed By: #### 5 8410-2 ####ANNETTE Foss ([id number])[facility] ([facility])[id number] [place] [address] 90935 Nucleated RBC/100 WBC (Bld) [Ratio] 0.3 /100 WBCs High 0.0-0.0 [facility] Comment on above: Performed By: #### 5 8410-2 ####ANNETTE Foss ([id number])[facility] ([facility])[id number] [place] [address] 53354 Platelets (Bld) [#/Vol] 132 x10*3/uL Low 150-450 [facility] Comment on above: Performed By: #### 5 8410-2 ####ANNETTE Foss ([id number])[facility] ([facility])[address] [place] [address] RBC (Bld) [#/Vol] 2.73 x10*6/uL Low 4.50-5.90 [facility] Comment on above: Performed By: #### 5 8410-2 ####ANNETTE Foss ([id number])[facility] ([facility])[id number] [place] [address] 82003 WBC (Bld) [#/Vol] 10.9 x10*3/uL Normal 4.4-11.3 [facility] Comment on above: Performed By: #### 5 8410-2 ####ANNETTE Foss ([id number])[facility] ([facility])[id number] [place] [address] 82027 Erythrocyte distribution width (RBC) [Ratio] 18.4 % High 11.5-14.5 [facility] Comment on above: Performed By: #### 5 8410-2 ####ANNETTE Foss ([id number])[facility] ([facility])[address] [place] [address] Hematocrit (Bld) [Volume fraction] 23.6 % Low 41.0-52.0 [facility] Comment on above: Performed By: #### 5 8410-2 ####ANNETTE Foss ([id number])[facility] ([facility])[address] [place] [address] Hemoglobin (Bld) [Mass/Vol] 7.6 g/dL Low 13.5-17.5 [facility] Comment on above: Performed By: #### 5 8410-2 ####ANNETTE Foss ([id number])[facility] ([facility])[address] [place] [address] MCH (RBC) [Entitic mass] 28.5 pg Normal 26.0-34.0 [facility] Comment on above: Performed By: #### 5 8410-2 ####ANNETTE Foss ([id number])[facility] ([facility])[address] [place] [address] MCHC (RBC) [Mass/Vol] 32.2 g/dL Normal 32.0-36.0 [facility] Comment on above: Performed By: #### 5 8410-2 ####ANNETTE Foss ([id number])[facility] ([facility])[address] [place] [address] MCV (RBC) [Entitic vol] 88 fL Normal 80-100 [facility] Comment on above: Performed By: #### 5 8410-2 ####ANNETTE Foss ([id number])[facility] ([facility])[address] [place] [address] Nucleated RBC/100 WBC (Bld) [Ratio] 0.3 /100 WBCs High 0.0-0.0 [facility] Comment on above: Performed By: #### 5 8410-2 ####ANNETTE Foss ([id number])[facility] ([facility])[address] [place] [address] Platelets (Bld) [#/Vol] 139 x10*3/uL Low 150-450 [facility] Comment on above: Performed By: #### 5 8410-2 ####ANNETTE Foss (88589)[facility] ([facility])[address] [place] [address] RBC (Bld) [#/Vol] 2.67 x10*6/uL Low 4.50-5.90 [facility] Comment on above: Performed By: #### 5 8410-2 ####ANNETTE Foss ([id number])[facility] ([facility])[address] [place] [address] WBC (Bld) [#/Vol] 13.2 x10*3/uL High 4.4-11.3 [facility] Comment on above: Performed By: #### 5 8410-2 ####ANNETTE Foss ([id number])[facility] ([facility])[address] [place] [address] Erythrocyte distribution width (RBC) [Ratio] 18.3 % High 11.5-14.5 [facility] Comment on above: Performed By: #### 5 8410-2 ####ANNETTE Foss ([id number])[facility] ([facility])[address] [place] [address] Hematocrit (Bld) [Volume fraction] 25.2 % Low 41.0-52.0 [facility] Comment on above: Performed By: #### 5 8410-2 ####ANNETTE Foss ([id number])[facility] ([facility])[address] [place] [address] Hemoglobin (Bld) [Mass/Vol] 8.2 g/dL Low 13.5-17.5 [facility] Comment on above: Performed By: #### 5 8410-2 ####ANNETTE Foss ([id number])[facility] ([facility])[address] [place] [address] MCH (RBC) [Entitic mass] 29.3 pg Normal 26.0-34.0 [facility] Comment on above: Performed By: #### 5 8410-2 ####ANNETTE Foss ([id number])[facility] ([facility])[address] [place] [address] MCHC (RBC) [Mass/Vol] 32.5 g/dL Normal 32.0-36.0 [facility] Comment on above: Performed By: #### 5 8410-2 ####ANNETTE Foss ([id number])[facility] ([facility])[address] [place] [address] MCV (RBC) [Entitic vol] 90 fL Normal 80-100 [facility] Comment on above: Performed By: #### 5 8410-2 ####ANNETTE Foss ([id number])[facility] ([facility])[address] [place] [address]78 Nucleated RBC/100 WBC (Bld) [Ratio] 0.2 /100 WBCs High 0.0-0.0 [facility] Comment on above: Performed By: #### 5 8410-2 ####ANNETTE Foss ([id number])[facility] ([facility])[address] [place] [address] Platelets (Bld) [#/Vol] 143 x10*3/uL Low 150-450 [facility] Comment on above: Performed By: #### 5 8410-2 ####ANNETTE Foss ([id number])[facility] ([facility])[address] [place] [address] RBC (Bld) [#/Vol] 2.80 x10*6/uL Low 4.50-5.90 [facility] Comment on above: Performed By: #### 5 8410-2 ####ANNETTE Foss ([id number])[facility] ([facility])[address] [place] [address] WBC (Bld) [#/Vol] 14.3 x10*3/uL High 4.4-11.3 [facility] Comment on above: Performed By: #### 5 8410-2 ####ANNETTE Foss ([id number])[facility] ([facility])[address] [place] [address] Calcium.ionizedon 09-30-2024 Calcium.ionized (Bld) [Moles/Vol] 1.11 mmol/L Normal 1.1-1.33 [facility] Comment on above: Result Comment: The performance characteristics of ionized calcium testedin heparinized plasma or serum have been validated [facility].Testing on heparinized plasma or serum is not approved [facility]; however, such approval is not necessary. Performed By: #### 1 994-3 ####ANNETTE Foss ([id number])[facility] ([facility])[address] [place] [address] Gas and Carbon monoxide and Electrolytes panel (BldA)on 09-30-2024 Anion gap 4 (BldA) [Moles/Vol] 10 mmo/L Normal 10-25 [facility] Comment on above: Performed By: #### 9 3685-6 ####ANNETTE Foss ([id number])[facility] ([facility])[address] [place] [address] Base excess Calc (Bld) [Moles/Vol] 0.4 mmol/L Normal -2.0-3.0 [facility] Comment on above: Performed By: #### 9 3685-6 ####ANNETTE Foss ([id number])[facility] ([facility])[address] [place] [address] Calcium.ionized (BldA) [Moles/Vol] 1.12 mmol/L Normal 1.10-1.33 [facility] Comment on above: Performed By: #### 9 3685-6 ####ANNETTE Foss (04254)[facility] ([facility])[address] [place] [address] Chloride (BldA) [Moles/Vol] 104 mmol/L Normal 98-107 [facility] Comment on above: Performed By: #### 9 3685-6 ####ANNETTE Foss ([id number])[facility] ([facility])[address] [place] [address] CO2 (Bld) [Partial pressure] 35 mm Hg Low 38-42 [facility] Comment on above: Performed By: #### 9 3685-6 ####ANNETTE Foss ([id number])[facility] ([facility])[address] [place] [address]77 Glucose [Mass/Vol] 146 mg/dL High 74-99 [facility] Comment on above: Performed By: #### 9 3685-6 ####ANNETTE Foss ([id number])[facility] ([facility])[address] [place] [address] HCO3 (Bld) [Moles/Vol] 24.3 mmol/L Normal 22.0-26.0 [facility] Comment on above: Performed By: #### 9 3685-6 ####ANNETTE Foss ([id number])[facility] ([facility])[address] [place] [address] Hematocrit Est (Bld) [Volume fraction] 25.0 % Low 41.0-52.0 [facility] Comment on above: Performed By: #### 9 3685-6 ####ANNETTE Foss ([id number])[facility] ([facility])[address] [place] [address] Hemoglobin (Bld) [Mass/Vol] 8.3 g/dL Low 13.5-17.5 [facility] Comment on above: Performed By: #### 9 3685-6 ####ANNETTE Foss ([id number])[facility] ([facility])[address] [place] [address] Inhaled oxygen concentration 40 % Normal [facility] Comment on above: Performed By: #### 9 3685-6 ####ANNETTE Foss ([id number])[facility] ([facility])[address] [place] [address] Lactate (BldA) [Moles/Vol] 1.0 mmol/L Normal 0.4-2.0 [facility] Comment on above: Performed By: #### 9 3685-6 ####ANNETTE Foss (92149)[facility] ([facility])[address] [place] [address] Oxygen (Bld) [Partial pressure] 74 mm Hg Low 85-95 [facility] Comment on above: Performed By: #### 9 3685-6 ####ANNETTE Foss ([id number])[facility] ([facility])[address] [place] [address] Oxyhemoglobin (BldA) [Mass fraction] 95.8 % Normal 94.0-98.0 [facility] Comment on above: Performed By: #### 9 3685-6 ####ANNETTE Foss ([id number])[facility] ([facility])[address] [place] [address] pH (Bld) 7.45 [pH] High 7.38-7.42 [facility] Comment on above: Performed By: #### 9 3685-6 ####ANNETTE Foss ([id number])[facility] ([facility])[address] [place] [address] Potassium (BldA) [Moles/Vol] 3.8 mmol/L Normal 3.5-5.3 [facility] Comment on above: Performed By: #### 9 3685-6 ####ANNETTE Foss ([id number])[facility] ([facility])[address] [place] [address]80[address] Sodium (BldA) [Moles/Vol] 134 mmol/L Low 136-145 [facility] Comment on above: Performed By: #### 9 3685-6 ####ANNETTE Foss ([id number])[facility] ([facility])[address] [place] [address] Glucose Test strip manual (B ld) [Mass/Vol]on 09-30-2024 Glucose [Mass/Vol] 134 mg/dL High 74-99 [facility] Comment on above: Performed By: #### 2 341-6 ####ANNETTE Foss ([id number])[facility] ([facility])[address] [place] [address] Glucose [Mass/Vol] 140 mg/dL High 74-99 [facility] Comment on above: Performed By: #### 2 341-6 ####ANNETTE Foss ([id number])[facility] ([facility])[address] [place] [address] Glucose [Mass/Vol] 135 mg/dL High 74-99 [facility] Comment on above: Performed By: #### 2 341-6 ####ANNETTE Foss ([id number])[facility] ([facility])[address] [place] [address] Glucose [Mass/Vol] 133 mg/dL High 74-99 [facility] Comment on above: Performed By: #### 2 341-6 ####ANNETTE Foss ([id number])[facility] ([facility])[address] [place] [address] Glucose [Mass/Vol] 146 mg/dL High 74-99 [facility] Comment on above: Performed By: #### 2 341-6 ####ANNETTE Foss ([id number])[facility] ([facility])[address] [place] [address] HbA1c (Bld) [Mass fraction]o n 09-30-2024 Average glucose Estimated from glycated hemoglobin (Bld) [Mass/Vol] 100 mg/dL Normal Not Established [facility] Comment on above: Order Comment: Diagn osis of Zcchvage-GgpiseAef-Oukxdrwo: < or = 5.6%Increased risk for developing diabetes: 5.7-6.4%Diagnostic of diabetes: > or = 6.5% Performed By: #### 4 548-4 ####ANNETTE Foss ([id number])[facility] ([facility])[address] [place] [address] Hemoglobin A1c/Hemoglobin.to tiki 09-30-2024 HbA1c (Bld) [Mass fraction] 5.1 % Normal See comment [facility] Comment on above: Order Comment: Diagn osis of Zkbmvmjr-XlnwrkUlo-Giqqqqcq: < or = 5.6%Increased risk for developing diabetes: 5.7-6.4%Diagnostic of diabetes: > or = 6.5% Performed By: #### 4 548-4 ####ANNETTE Foss (35098)[facility] ([facility])[address] [place] [address] Magnesiumon 09-30-2024 Magnesium [Mass/Vol] 2.20 mg/dL Normal 1.60-2.40 [facility] Comment on above: Performed By: #### 1 9123-9 ####ANNETTE Foss ([id number])[facility] ([facility])[address] [place] [address] PT and aPTT panel Coag (PPP) on 09-30-2024 aPTT Coag (PPP) [Time] 25 s Low 26-36 [facility] Comment on above: Order Comment: The A PTT is no longer used for monitoring Unfractionated Heparin Therapy. For monitoring Heparin Therapy, use the Heparin Assay. Performed By: #### 3 4529-8 ####ANNETTE Foss (21061)[facility] ([facility])[address] [place] [address] 89766 INR Coag (PPP) [Relative time] 1.3 High 0.9-1.1 [facility] Comment on above: Order Comment: The A PTT is no longer used for monitoring Unfractionated Heparin Therapy. For monitoring Heparin Therapy, use the Heparin Assay. Performed By: #### 3 4529-8 ####ANNETTE Foss (22289)[facility] ([facility])[address] [place] [address] 57968 PT Coag (PPP) [Time] 14.0 s High 9.8-12.4 [facility] Comment on above: Order Comment: The A PTT is no longer used for monitoring Unfractionated Heparin Therapy. For monitoring Heparin Therapy, use the Heparin Assay. Performed By: #### 3 4529-8 ####ANNETTE Foss ([id number])[facility] ([facility])[address] [place] [address]25 aPTT Coag (PPP) [Time] 25 s Low 26-36 [facility] Comment on above: Order Comment: The A PTT is no longer used for monitoring Unfractionated Heparin Therapy. For monitoring Heparin Therapy, use the Heparin Assay. Performed By: #### 3 4529-8 ####ANNETTE RAMSEYTZVISHNU Foss (73844)[facility] ([facility])[address] [facility] [place] [address] INR Coag (PPP) [Relative time] 1.3 High 0.9-1.1 [facility] Comment on above: Order Comment: The A PTT is no longer used for monitoring Unfractionated Heparin Therapy. For monitoring Heparin Therapy, use the Heparin Assay. Performed By: #### 3 4529-8 ####ANNETTE Foss ([id number])[facility] ([facility])[address] [place] [address] 89982 PT Coag (PPP) [Time] 14.6 s High 9.8-12.4 [facility] Comment on above: Order Comment: The A PTT is no longer used for monitoring Unfractionated Heparin Therapy. For monitoring Heparin Therapy, use the Heparin Assay. Performed By: #### 3 4529-8 ####ANNETTE Foss ([id number])[facility] ([facility])[address] [place] [address] 16764 Renal function 2000 panelon 09-30-2024 Albumin BCP dye [Mass/Vol] 3.8 g/dL Normal 3.4-5.0 [facility] Comment on above: Performed By: #### 2 4362-6 ####ANNETTE Foss ([id number])[facility] ([facility])[address] [place] [address] 27811 Anion gap [Moles/Vol] 13 mmol/L Normal 10-20 [facility] Comment on above: Performed By: #### 2 4362-6 ####ANNETTE Foss ([id number])[facility] ([facility])[address] [place] [address] Calcium [Mass/Vol] 8.5 mg/dL Low 8.6-10.6 [facility] Comment on above: Performed By: #### 2 4362-6 ####ANNETTE RAMSEYTZVISHNU L (95603)[facility] ([facility])[address] [place] [address] Chloride [Moles/Vol] 103 mmol/L Normal 98-107 [facility] Comment on above: Performed By: #### 2 4362-6 ####ANNETTE GARCIA L ([id number])[facility] ([facility])[address] [place] [address] 29359 CO2 [Moles/Vol] 25 mmol/L Normal 21-32 [facility] Comment on above: Performed By: #### 2 4362-6 ####ANNETTE Foss ([id number])[facility] ([facility])[address] [place] [address] Creatinine [Mass/Vol] 0.89 mg/dL Normal 0.50-1.30 [facility] Comment on above: Performed By: #### 2 4362-6 ####ANNETTE Foss ([id number])[facility] ([facility])[address] [place] [address] Glomerular filtration rate 89 mL/min/1.73m*2 Normal >60 [facility] Comment on above: Result Comment: Calc ulations of estimated GFR are performed using the 2020 CKD-EPI Study Refit equation without the race variable for the IDMS-Traceable creatinine methods.https://jasn.asnjournals.org/content/early// ASN.5387577771 Performed By: #### 2 4362-6 ####ANNETTE Foss ([id number])[facility] ([facility])[address] [place] [address] Glucose [Mass/Vol] 147 mg/dL High 74-99 [facility] Comment on above: Performed By: #### 2 4362-6 ####ANNETTE Foss ([id number])[facility] ([facility])[address] [place] [address] Phosphate [Mass/Vol] 2.0 mg/dL Low 2.5-4.9 [facility] Comment on above: Performed By: #### 2 4362-6 ####ANNETTE Foss ([id number])[facility] ([facility])[address] [place] [address] Potassium [Moles/Vol] 3.7 mmol/L Normal 3.5-5.3 [facility] Comment on above: Performed By: #### 2 4362-6 ####ANNETTE Foss ([id number])[facility] ([facility])[address] [place] [address] Sodium [Moles/Vol] 137 mmol/L Normal 136-145 [facility] Comment on above: Performed By: #### 2 4362-6 ####ANNETTE Foss (10253)[facility] ([facility])[address] [place] [address] Urea nitrogen [Mass/Vol] 29 mg/dL High 6-23 [facility] Comment on above: Performed By: #### 2 4362-6 ####ANNETTE Foss ([id number])[facility] ([facility])[address] [place] [address] 93763 Staphylococcus aureus.methic illin resistant isolateon 09-30-2024 MRSA isol Org specific cx Ql (Nose) [facility] Comment on above: Performed By: #### 5 2969-3 ####ANNETTE Foss ([id number])[facility] ([facility])[address] [place] [address] XR ABDOMEN 1 VIEWon 10-01-19 XR ABDOMEN 1 VIEW [facility] Comment on above: Order Comment: RN to release order via task on Brain when patient is ready for x-ray confirmation of NG tube placement. XR CHEST 1 VIEWon 09-30-2024 XR CHEST 1 VIEW Normal [facility] Blood type and Indirect anti body screen panel (Bld)on 09-29-2024 ABO group Nom (Bld) A Normal [facility] Comment on above: Performed By: #### 3 4532-2 ####ANNETTE Foss ([id number])[facility] ([facility])[address] [place] [address] Blood group antibody screen Ql Negative [facility] Comment on above: Performed By: #### 3 4532-2 ####ANNETTE Foss ([id number])[facility] ([facility])[address] [place] [address] D Ag Ql (Bld) Positive Normal [facility] Comment on above: Performed By: #### 3 4532-2 ####ANNETTE Foss ([id number])[facility] ([facility])[address] [place] [address] 14[address] CBC panel Auto (Bld)on 09-29 Erythrocyte distribution width (RBC) [Ratio] 18.1 % High 11.5-14.5 [facility] Comment on above: Performed By: #### 5 8410-2 ####ANNETTE Foss ([id number])[facility] ([facility])[address] [place] [address] Hematocrit (Bld) [Volume fraction] 24.9 % Low 41.0-52.0 [facility] Comment on above: Performed By: #### 5 8410-2 ####ANNETTE Foss (44094)[facility] ([facility])[address] [place] [address] Hemoglobin (Bld) [Mass/Vol] 8.2 g/dL Low 13.5-17.5 [facility] Comment on above: Performed By: #### 5 8410-2 ####ANNETTE Foss (38397)[facility] ([facility])[address] [place] [address] MCH (RBC) [Entitic mass] 28.8 pg Normal 26.0-34.0 [facility] Comment on above: Performed By: #### 5 8410-2 ####ANNETTE Foss ([id number])[facility] ([facility])[address] [place] [address] MCHC (RBC) [Mass/Vol] 32.9 g/dL Normal 32.0-36.0 [facility] Comment on above: Performed By: #### 5 8410-2 ####ANNETTE Foss ([id number])[facility] ([facility])[address] [place] [address] MCV (RBC) [Entitic vol] 87 fL Normal 80-100 [facility] Comment on above: Performed By: #### 5 8410-2 ####ANNETTE Foss (77425)[facility] ([facility])[address] [place] [address] Nucleated RBC/100 WBC (Bld) [Ratio] 0.2 /100 WBCs High 0.0-0.0 [facility] Comment on above: Performed By: #### 5 8410-2 ####ANNETTE Foss ([id number])[facility] ([facility])[address] [place] [address] 20101 Platelets (Bld) [#/Vol] 152 x10*3/uL Normal 150-450 [facility] Comment on above: Performed By: #### 5 8410-2 ####ANNETTE Foss ([id number])[facility] ([facility])[address] [place] [address] 26735 RBC (Bld) [#/Vol] 2.85 x10*6/uL Low 4.50-5.90 [facility] Comment on above: Performed By: #### 5 8410-2 ####ANNETTE Foss ([id number])[facility] ([facility])[address] [place] [address] 56891 WBC (Bld) [#/Vol] 12.6 x10*3/uL High 4.4-11.3 [facility] Comment on above: Performed By: #### 5 8410-2 ####ANNETTE Foss ([id number])[facility] ([facility])[address] [place] [address] 53810 Erythrocyte distribution width (RBC) [Ratio] 17.3 % High 11.5-14.5 [facility] Comment on above: Performed By: #### 5 8410-2 ####ANNETTE Foss ([id number])[facility] ([facility])[address] [place] [address] 30667 Hematocrit (Bld) [Volume fraction] 25.8 % Low 41.0-52.0 [facility] Comment on above: Performed By: #### 5 8410-2 ####ANNETTE Foss (64731)[facility] ([facility])[address] [place] [address] Hemoglobin (Bld) [Mass/Vol] 8.4 g/dL Low 13.5-17.5 [facility] Comment on above: Performed By: #### 5 8410-2 ####ANNETTE Foss (94039)[facility] ([facility])[address] [place] [address] 93508 MCH (RBC) [Entitic mass] 28.7 pg Normal 26.0-34.0 [facility] Comment on above: Performed By: #### 5 8410-2 ####ANNETTE Foss ([id number])[facility] ([facility])[address] [place] [address] 94789 MCHC (RBC) [Mass/Vol] 32.6 g/dL Normal 32.0-36.0 [facility] Comment on above: Performed By: #### 5 8410-2 ####ANNETTE Foss ([id number])[facility] ([facility])[address] [place] [address] 39150 MCV (RBC) [Entitic vol] 88 fL Normal 80-100 [facility] Comment on above: Performed By: #### 5 8410-2 ####ANNETTE Foss ([id number])[facility] ([facility])[address] [place] [address] 97166 Nucleated RBC/100 WBC (Bld) [Ratio] 0.1 /100 WBCs High 0.0-0.0 [facility] Comment on above: Performed By: #### 5 8410-2 ####ANNETTE Foss ([id number])[facility] ([facility])[address] [place] [address] 83988 Platelets (Bld) [#/Vol] 140 x10*3/uL Low 150-450 [facility] Comment on above: Performed By: #### 5 8410-2 ####ANNETTE Foss ([id number])[facility] ([facility])[address] [place] [address] RBC (Bld) [#/Vol] 2.93 x10*6/uL Low 4.50-5.90 [facility] Comment on above: Performed By: #### 5 8410-2 ####ANNETTE Foss ([id number])[facility] ([facility])[address] [place] [address] WBC (Bld) [#/Vol] 15.4 x10*3/uL High 4.4-11.3 [facility] Comment on above: Performed By: #### 5 8410-2 ####ANNETTE Foss ([id number])[facility] ([facility])[id number] [place] [address] 92967 Erythrocyte distribution width (RBC) [Ratio] 15.1 % High 11.5-14.5 [facility] Comment on above: Performed By: #### 5 8410-2 ####ANNETTE Foss ([id number])[facility] ([facility])[id number] [place] [address]11[address] Hematocrit (Bld) [Volume fraction] 23.9 % Low 41.0-52.0 [facility] Comment on above: Performed By: #### 5 8410-2 ####ANNETTE Foss ([id number])[facility] ([facility])[address] [place] [address] Hemoglobin (Bld) [Mass/Vol] 7.6 g/dL Low 13.5-17.5 [facility] Comment on above: Performed By: #### 5 8410-2 ####ANNETTE Foss ([id number])[facility] ([facility])[address] [place] [address] MCH (RBC) [Entitic mass] 29.7 pg Normal 26.0-34.0 [facility] Comment on above: Performed By: #### 5 8410-2 ####ANNETTE Foss ([id number])[facility] ([facility])[id number] [place] [address] MCHC (RBC) [Mass/Vol] 31.8 g/dL Low 32.0-36.0 [facility] Comment on above: Performed By: #### 5 8410-2 ####ANNETTE Foss ([id number])[facility] ([facility])[address] [place] [address] MCV (RBC) [Entitic vol] 93 fL Normal 80-100 [facility] Comment on above: Performed By: #### 5 8410-2 ####ANNETTE Foss ([id number])[facility] ([facility])[address] [place] [address] Nucleated RBC/100 WBC (Bld) [Ratio] 0.1 /100 WBCs High 0.0-0.0 [facility] Comment on above: Performed By: #### 5 8410-2 ####ANNETTE Foss ([id number])[facility] ([facility])[address] [place] [address] Platelets (Bld) [#/Vol] 162 x10*3/uL Normal 150-450 [facility] Comment on above: Performed By: #### 5 8410-2 ####ANNETTE Foss ([id number])[facility] ([facility])[address] [place] [address] RBC (Bld) [#/Vol] 2.56 x10*6/uL Low 4.50-5.90 [facility] Comment on above: Performed By: #### 5 8410-2 ####ANNETTE Foss ([id number])[facility] ([facility])[address] [place] [address] WBC (Bld) [#/Vol] 21.4 x10*3/uL High 4.4-11.3 [facility] Comment on above: Performed By: #### 5 8410-2 ####ANNETTE Foss ([id number])[facility] [facility] ([facility])[address] [place] [address] Erythrocyte distribution width (RBC) [Ratio] 14.7 % High 11.5-14.5 [facility] Comment on above: Performed By: #### 5 8410-2 ####ANNETTE Foss ([id number])[facility] ([facility])[address] [place] [address] Hematocrit (Bld) [Volume fraction] 26.3 % Low 41.0-52.0 [facility] Comment on above: Performed By: #### 5 8410-2 ####ANNETTE Foss ([id number])[facility] ([facility])[address] [place] [address] Hemoglobin (Bld) [Mass/Vol] 8.5 g/dL Low 13.5-17.5 [facility] Comment on above: Performed By: #### 5 8410-2 ####ANNETTE Foss ([id number])[facility] ([facility])[address] [place] [address] MCH (RBC) [Entitic mass] 29.8 pg Normal 26.0-34.0 [facility] Comment on above: Performed By: #### 5 8410-2 ####ANNETTE Foss ([id number])[facility] ([facility])[address] [place] [address] MCHC (RBC) [Mass/Vol] 32.3 g/dL Normal 32.0-36.0 [facility] Comment on above: Performed By: #### 5 8410-2 ####ANNETTE Foss ([id number])[facility] ([facility])[address] [place] [address] MCV (RBC) [Entitic vol] 92 fL Normal 80-100 [facility] Comment on above: Performed By: #### 5 8410-2 ####ANNETTE Foss ([id number])[facility] ([facility])[address] [place] [address] Nucleated RBC/100 WBC (Bld) [Ratio] 0.0 /100 WBCs Normal 0.0-0.0 [facility] Comment on above: Performed By: #### 5 8410-2 ####ANNETTE Foss ([id number])[facility] ([facility])[address] [place] [address] Platelets (Bld) [#/Vol] 156 x10*3/uL Normal 150-450 [facility] Comment on above: Performed By: #### 5 8410-2 ####ANNETTE Foss ([id number])[facility] ([facility])[address] [place] [address] RBC (Bld) [#/Vol] 2.85 x10*6/uL Low 4.50-5.90 [facility] Comment on above: Performed By: #### 5 8410-2 ####ANNETTE Foss ([id number])[facility] ([facility])[address] [place] [address] WBC (Bld) [#/Vol] 12.1 x10*3/uL High 4.4-11.3 [facility] Comment on above: Performed By: #### 5 8410-2 ####ANNETTE Foss ([id number])[facility] ([facility])[address] [place] [address] ANGIO CHEST ABDOMEN PELVI Son 09-29-2024 CT ANGIO CHEST ABDOMEN PELVIS Normal [facility] Calcium.ionizedon 09-29-2024 Calcium.ionized (Bld) [Moles/Vol] 1.07 mmol/L Low 1.1-1.33 [facility] Comment on above: Result Comment: The performance characteristics of ionized calcium testedin heparinized plasma or serum have been validated [facility].Testing on heparinized plasma or serum [facility]; however, such approval is not necessary. Performed By: #### 1 994-3 ####ANNETTE Foss ([id number])[facility] ([facility])[address] [place] [address] Calcium.ionized (Bld) [Moles/Vol] 1.09 mmol/L Low 1.1-1.33 [facility] Comment on above: Result Comment: The performance characteristics of ionized calcium testedin heparinized plasma or serum have been validated [facility].Testing on heparinized plasma or serum is not approved [facility] FDA; however, such approval is not necessary. Performed By: #### 1 994-3 ####ANNETTE Foss ([id number])[facility] ([facility])[address] [place] [address] Calcium.ionized (Bld) [Moles/Vol] 1.14 mmol/L Normal 1.1-1.33 [facility] Comment on above: Result Comment: The performance characteristics of ionized calcium testedin heparinized plasma or serum have been validated [facility].Testing on heparinized plasma or serum is not approved [facility] FDA; however, such approval is not necessary. Performed By: #### 1 994-3 ####ANNETTE Foss ([id number])[facility] ([facility])[id number] [place] [address] Fibrinogenon 09-29-2024 Fibrinogen Coag (PPP) [Mass/Vol] 336 mg/dL Normal 200-400 [facility] Comment on above: Performed By: #### 3 255-7 ####ANNETTE Foss ([id number])[facility] ([facility])[address] [place] [address]86[address] Gas and Carbon monoxide and Electrolytes panel (BldA)on 09-29-2024 Anion gap 4 (BldA) [Moles/Vol] 12 mmo/L Normal 10-25 [facility] Comment on above: Performed By: #### 9 3685-6 ####ANNETTE Foss ([id number])[facility] ([facility])[address] [place] [address] 26645 Base excess Calc (Bld) [Moles/Vol] -2.0000 mmol/L Normal -2.0-3.0 [facility] Comment on above: Performed By: #### 9 3685-6 ####ANNETTE Foss (73400)[facility] ([facility])[address] [place] [address] Calcium.ionized (BldA) [Moles/Vol] 1.07 mmol/L Low 1.10-1.33 [facility] Comment on above: Performed By: #### 9 3685-6 ####ANNETTE Foss (68459)[facility])[address] [place] [address] Chloride (BldA) [Moles/Vol] 106 mmol/L Normal 98-107 [facility] Comment on above: Performed By: #### 9 3685-6 ####ANNETTE Foss ([id number])[facility] ([facility])[address] [place] [address]37 CO2 (Bld) [Partial pressure] 34 mm Hg Low 38-42 [facility] Comment on above: Performed By: #### 9 3685-6 ####ANNETTE Foss ([id number])[facility] ([facility])[address] [place] [address] 15612 Glucose [Mass/Vol] 169 mg/dL High 74-99 [facility] Comment on above: Performed By: #### 9 3685-6 ####ANNETTE Foss ([id number])[facility] ([facility])[address] [place] [address] 91758 HCO3 (Bld) [Moles/Vol] 22.1 mmol/L Normal 22.0-26.0 [facility] Comment on above: Performed By: #### 9 3685-6 ####ANNETTE Foss (64839)[facility] ([facility])[address] [place] [address] Hematocrit Est (Bld) [Volume fraction] 26.0 % Low 41.0-52.0 [facility] Comment on above: Performed By: #### 9 3685-6 ####ANNETTE Foss ([id number])[facility] ([facility])[address] [place] [address]3369 Hemoglobin (Bld) [Mass/Vol] 8.5 g/dL Low 13.5-17.5 [facility] Comment on above: Performed By: #### 9 3685-6 ####ANNETTE Foss ([id number])[facility] ([facility])[address] [place] [address] Inhaled oxygen concentration 50 % Normal [facility] Comment on above: Performed By: #### 9 1125-6 ####ANNETTE Foss ([id number])[facility] ([facility])[address] [place] [address] 87116 Lactate (BldA) [Moles/Vol] 1.2 mmol/L Normal 0.4-2.0 [facility] Comment on above: Performed By: #### 9 32056 ####ANNETTE Foss (13600)[facility] ([facility])[address] [place] [address] 75072 Oxygen (Bld) [Partial pressure] 96 mm Hg High 85-95 [facility] Comment on above: Performed By: #### 9 0751-6 ####ANNETTE Foss ([id number])[facility] ([facility])[address] [place] [address] Oxyhemoglobin (BldA) [Mass fraction] 97.2 % Normal 94.0-98.0 [facility] Comment on above: Performed By: #### 9 0625-6 ####ANNETTE Foss ([id number])[facility] ([facility])[address] [place] [address] pH (Bld) 7.42 [pH] Normal 7.38-7.42 [facility] Comment on above: Performed By: #### 9 4215-6 ####ANNETTE Foss (40435)[facility] ([facility])[address] [place] [address] 18224 Potassium (BldA) [Moles/Vol] 3.8 mmol/L Normal 3.5-5.3 [facility] Comment on above: Performed By: #### 9 5366-6 ####ANNETTE Foss (76400)[facility] ([facility])[address] [place] [address] Sodium (BldA) [Moles/Vol] 136 mmol/L Normal 136-145 [facility] Comment on above: Performed By: #### 9 3685-6 ####ANNETTE Foss (19671)[facility] ([facility])[address] [place] [address] Anion gap 4 (BldA) [Moles/Vol] 11 mmo/L Normal 10-25 [facility] Comment on above: Performed By: #### 9 3685-6 ####ANNETTE Foss (28920)[facility] ([facility])[address] [place] [address] 92450 Base excess Calc (Bld) [Moles/Vol] -1.6000 mmol/L Normal -2.0-3.0 [facility] Comment on above: Performed By: #### 9 3685-6 ####ANNETTE Foss (46540)[facility] ([facility])[address] [place] [address] 16435 Calcium.ionized (BldA) [Moles/Vol] 1.06 mmol/L Low 1.10-1.33 [facility] Comment on above: Performed By: #### 9 3685-6 ####ANNETTE Foss (76330)[facility] ([facility])[address] [place] [address] Chloride (BldA) [Moles/Vol] 105 mmol/L Normal 98-107 [facility] Comment on above: Performed By: #### 9 3685-6 ####ANNETTE Foss ([id number])[facility] ([facility])[address] [place] [address] CO2 (Bld) [Partial pressure] 36 mm Hg Low 38-42 [facility] Comment on above: Performed By: #### 9 3685-6 ####ANNETTE Foss (90315)[facility] ([facility])[address] [place] [address] 76895 Glucose [Mass/Vol] 169 mg/dL High 74-99 [facility] Comment on above: Performed By: #### 9 3685-6 ####ANNETTE Foss (06541)[facility] ([facility])[address] [place] [address] HCO3 (Bld) [Moles/Vol] 22.8 mmol/L Normal 22.0-26.0 [facility] Comment on above: Performed By: #### 9 3685-6 ####ANNETTE Foss (50523)[facility] ([facility])[address] [place] [address] Hematocrit Est (Bld) [Volume fraction] 25.0 % Low 41.0-52.0 [facility] Comment on above: Performed By: #### 9 3685-6 ####ANNETTE Foss (53284)[facility] ([facility])[address] [place] [address] Hemoglobin (Bld) [Mass/Vol] 8.4 g/dL Low 13.5-17.5 [facility] Comment on above: Performed By: #### 9 2215-6 ####ANNETTE Foss (46214)[facility] ([facility])[address] [place] [address] Inhaled oxygen concentration 60 % Normal [facility] Comment on above: Performed By: #### 9 8875-6 ####ANNETTE Foss (93806)[facility] ([facility])[address] [place] [address] Lactate (BldA) [Moles/Vol] 1.1 mmol/L Normal 0.4-2.0 [facility] Comment on above: Performed By: #### 9 0925-6 ####ANNETTE Foss (28895)[facility] ([facility])[address] [place] [address] Oxygen (Bld) [Partial pressure] 163 mm Hg High 85-95 [facility] Comment on above: Performed By: #### 9 0735-6 ####ANNETTE Foss (17946)[facility] ([facility])[address] [place] [address] Oxyhemoglobin (BldA) [Mass fraction] 97.7 % Normal 94.0-98.0 [facility] Comment on above: Performed By: #### 9 3685-6 ####ANNETTE Foss (63981)[facility] ([facility])[address] [place] [address] pH (Bld) 7.41 [pH] Normal 7.38-7.42 [facility] Comment on above: Performed By: #### 9 3685-6 ####ANNETTE Foss (91530)[facility] ([facility])[address] [place] [address] 83554 Potassium (BldA) [Moles/Vol] 4.0 mmol/L Normal 3.5-5.3 [facility] Comment on above: Performed By: #### 9 0865-6 ####ANNETTE Foss (75889)[facility] ([facility])[address] [place] [address] Sodium (BldA) [Moles/Vol] 135 mmol/L Low 136-145 [facility] Comment on above: Performed By: #### 9 5975-6 ####ANNETTE Foss (44970)[facility] ([facility])[address] [place] [address] Anion gap 4 (BldA) [Moles/Vol] 13 mmo/L Normal 10-25 [facility] Comment on above: Performed By: #### 9 3685-6 ####ANNETTE Foss (89803)[facility] ([facility])[address] [place] [address] Base excess Calc (Bld) [Moles/Vol] -2.5000 mmol/L Low -2.0-3.0 [facility] Comment on above: Performed By: #### 9 8545-6 ####ANNETTE Foss (98943)[facility] ([facility])[address] [place] [address] Calcium.ionized (BldA) [Moles/Vol] 1.06 mmol/L Low 1.10-1.33 [facility] Comment on above: Performed By: #### 9 3685-6 ####ANNETTE Foss (14717)[facility] ([facility])[address] [place] [address] Chloride (BldA) [Moles/Vol] 104 mmol/L Normal 98-107 [facility] Comment on above: Performed By: #### 9 3685-6 ####ANNETTE Foss (11096)[facility] ([facility])[address] [place] [address] 81181 CO2 (Bld) [Partial pressure] 39 mm Hg Normal 38-42 [facility] Comment on above: Performed By: #### 9 9995-6 ####ANNETTE Foss (86681)[facility] ([facility])[address] [place] [address] 93878 Glucose [Mass/Vol] 205 mg/dL High 74-99 [facility] Comment on above: Performed By: #### 9 9755-6 ####ANNETTE Foss (11254)[facility] ([facility])[address] [place] [address] 11353 HCO3 (Bld) [Moles/Vol] 22.5 mmol/L Normal 22.0-26.0 [facility] Comment on above: Performed By: #### 9 5155-6 ####ANNETTE Foss (63361)[facility] ([facility])[address] [place] [address] Hematocrit Est (Bld) [Volume fraction] 27.0 % Low 41.0-52.0 [facility] Comment on above: Performed By: #### 9 3685-6 ####ANNETTE Foss (10969)[facility] ([facility])[address] [place] [address] Hemoglobin (Bld) [Mass/Vol] 9.1 g/dL Low 13.5-17.5 [facility] Comment on above: Performed By: #### 9 3685-6 ####ANNETTE Foss (84378)[facility] ([facility])[address] [place] [address] 02463 Inhaled oxygen concentration 50 % Normal [facility] Comment on above: Performed By: #### 9 3685-6 ####ANNETTE Foss (25284)[facility] ([facility])[address] [place] [address] 72371 Lactate (BldA) [Moles/Vol] 1.3 mmol/L Normal 0.4-2.0 [facility] Comment on above: Performed By: #### 9 1145-6 ####ANNETTE Foss ([id number])[facility] ([facility])[address] [place] [address] 75207 Oxygen (Bld) [Partial pressure] 154 mm Hg High 85-95 [facility] Comment on above: Performed By: #### 9 7945-6 ####ANNETTE Foss (40644)[facility] ([facility])[address] [place] [address] 81573 Oxyhemoglobin (BldA) [Mass fraction] 97.2 % Normal 94.0-98.0 [facility] Comment on above: Performed By: #### 9 3685-6 ####ANNETTE Foss (56688)[facility] ([facility])[address] [place] [address] 35392 pH (Bld) 7.37 [pH] Low 7.38-7.42 [facility] Comment on above: Performed By: #### 9 3685-6 ####ANNETTE Foss (09702)[facility] ([facility])[address] [place] [address] 19777 Potassium (BldA) [Moles/Vol] 4.1 mmol/L Normal 3.5-5.3 [facility] Comment on above: Performed By: #### 9 8805-6 ####ANNETTE Foss (89545)[facility] ([facility])[address] [place] [address] Sodium (BldA) [Moles/Vol] 135 mmol/L Low 136-145 [facility] Comment on above: Performed By: #### 9 3685-6 ####ANNETTE Foss (51103)[facility] ([facility])[address] [place] [address] 04551 Anion gap 4 (BldA) [Moles/Vol] 13 mmo/L Normal 10-25 [facility] Comment on above: Performed By: #### 9 3685-6 ####ANNETTE Foss (73146)[facility] ([facility])[address] [place] [address] 44210 Base excess Calc (Bld) [Moles/Vol] -4.3000 mmol/L Low -2.0-3.0 [facility] Comment on above: Performed By: #### 9 3685-6 ####ANNETTE Foss (44473)[facility] ([facility])[address] [place] [address] 27722 Calcium.ionized (BldA) [Moles/Vol] 1.10 mmol/L Normal 1.10-1.33 [facility] Comment on above: Performed By: #### 9 3685-6 ####ANNETTE Foss (35601)[facility] ([facility])[address] [place] [address] 93930 Chloride (BldA) [Moles/Vol] 105 mmol/L Normal 98-107 [facility] Comment on above: Performed By: #### 9 3685-6 ####ANNETTE Foss (83618)[facility] ([facility])[address] [place] [address] CO2 (Bld) [Partial pressure] 49 mm Hg High 38-42 [facility] Comment on above: Performed By: #### 9 3685-6 ####ANNETTE Foss (02579)[facility] ([facility])[address] [place] [address] 73172 Glucose [Mass/Vol] 204 mg/dL High 74-99 [facility] Comment on above: Performed By: #### 9 3685-6 ####ANNETTE Foss (52345)[facility] ([facility])[address] [place] [address] HCO3 (Bld) [Moles/Vol] 22.5 mmol/L Normal 22.0-26.0 [facility] Comment on above: Performed By: #### 9 3685-6 ####ANNETTE Foss (50164)[facility] ([facility])[address] [place] [address] Hematocrit Est (Bld) [Volume fraction] 25.0 % Low 41.0-52.0 [facility] Comment on above: Performed By: #### 9 3685-6 ####ANNETTE Foss (34520)[facility] ([facility])[address] [place] [address] Hemoglobin (Bld) [Mass/Vol] 8.2 g/dL Low 13.5-17.5 [facility] Comment on above: Performed By: #### 9 7805-6 ####ANNETTE Foss (65472)[facility] ([facility])[address] [place] [address] Inhaled oxygen concentration 50 % Normal [facility] Comment on above: Performed By: #### 9 3945-6 ####ANNETTE Foss (16877)[facility] ([facility])[address] [place] [address] Lactate (BldA) [Moles/Vol] 2.2 mmol/L High 0.4-2.0 [facility] Comment on above: Performed By: #### 9 9405-6 ####ANNETTE Foss (16120)[facility] ([facility])[address] [place] [address] Oxygen (Bld) [Partial pressure] 73 mm Hg Low 85-95 [facility] Comment on above: Performed By: #### 9 7495-6 ####ANNETTE Foss (98480)[facility] ([facility])[address] [place] [address] Oxyhemoglobin (BldA) [Mass fraction] 94.3 % Normal 94.0-98.0 [facility] Comment on above: Performed By: #### 9 3685-6 ####ANNETTE Foss (85455)[facility] ([facility])[address] [place] [address] pH (Bld) 7.27 [pH] Low 7.38-7.42 [facility] Comment on above: Performed By: #### 9 3685-6 ####ANNETTE Foss (74668)[facility] ([facility])[address] [place] [address] 20170 Potassium (BldA) [Moles/Vol] 4.9 mmol/L Normal 3.5-5.3 [facility] Comment on above: Performed By: #### 9 8695-6 ####ANNETTE Foss (86346)[facility] ([facility])[address] [place] [address] Sodium (BldA) [Moles/Vol] 136 mmol/L Normal 136-145 [facility] Comment on above: Performed By: #### 9 3685-6 ####ANNETTE Foss (06757)[facility] ([facility])[address] [place] [address] 22455 Anion gap 4 (BldA) [Moles/Vol] 17 mmo/L Normal 10-25 [facility] Comment on above: Performed By: #### 9 3685-6 ####ANNETTE Foss (16130)[facility] ([facility])[address] [place] [address] Base excess Calc (Bld) [Moles/Vol] -10.50578 mmol/L Low -2.0-3.0 [facility] Comment on above: Performed By: #### 9 3685-6 ####ANNETTE Foss (10242)[facility] ([facility])[address] [place] [address] Calcium.ionized (BldA) [Moles/Vol] 1.17 mmol/L Normal 1.10-1.33 [facility] Comment on above: Performed By: #### 9 3685-6 ####ANNETTE Foss (91302)[facility] ([facility])[address] [place] [address] Chloride (BldA) [Moles/Vol] 106 mmol/L Normal 98-107 [facility] Comment on above: Performed By: #### 9 3685-6 ####ANNETTE Foss ([id number])[facility] ([facility])[address] [place] [address] 55794 CO2 (Bld) [Partial pressure] 56 mm Hg High 38-42 [facility] Comment on above: Performed By: #### 9 3685-6 ####ANNETTE Foss (92804)[facility] ([facility])[address] [place] [address] 68004 Glucose [Mass/Vol] 189 mg/dL High 74-99 [facility] Comment on above: Performed By: #### 9 6995-6 ####ANNETTE Foss (00957)[facility] ([facility])[address] [place] [address] 86980 HCO3 (Bld) [Moles/Vol] 18.6 mmol/L Low 22.0-26.0 [facility] Comment on above: Performed By: #### 9 5975-6 ####ANNETTE Foss (65651)[facility] ([facility])[address] [place] [address] 55882 Hematocrit Est (Bld) [Volume fraction] 26.0 % Low 41.0-52.0 [facility] Comment on above: Performed By: #### 9 3685-6 ####ANNETTE Foss ([id number])[facility] ([facility])[id number] [place] [address] 45329 Hemoglobin (Bld) [Mass/Vol] 8.6 g/dL Low 13.5-17.5 [facility] Comment on above: Performed By: #### 9 3685-6 ####ANNETTE Foss ([id number])[facility] ([facility])[id number] [place] [address] 37357 Inhaled oxygen concentration 100 % Normal [facility] Comment on above: Performed By: #### 9 3685-6 ####ANNETTE Foss ([id number])[facility] ([facility])[id number] [place] [address] 77428 Lactate (BldA) [Moles/Vol] 5.4 mmol/L Critically high 0.4-2.0 [facility] Comment on above: Performed By: #### 9 4165-6 ####ANNETTE Foss ([id number])[facility] ([facility])[id number] [place] [address] 00904 Oxygen (Bld) [Partial pressure] 150 mm Hg High 85-95 [facility] Comment on above: Performed By: #### 9 9465-6 ####ANNETTE Foss ([id number])[facility] ([facility])[id number] [place] [address] 95570 Oxyhemoglobin (BldA) [Mass fraction] 97.7 % Normal 94.0-98.0 [facility] Comment on above: Performed By: #### 9 4075-6 ####ANNETTE Foss ([id number])[facility] ([facility])[id number] [place] [address] 54834 pH (Bld) 7.13 [pH] Critically low 7.38-7.42 [facility] Comment on above: Performed By: #### 9 9015-6 ####ANNETTE Foss ([id number])[facility] ([facility])[id number] [place] [address] 16184 Potassium (BldA) [Moles/Vol] 4.8 mmol/L Normal 3.5-5.3 [facility] Comment on above: Performed By: #### 9 [id number] ####ANNETTE Foss ([id number])[facility] ([facility])[address] [place] [address] Sodium (BldA) [Moles/Vol] 137 mmol/L Normal 136-145 [facility] Comment on above: Performed By: #### 9 3685-6 ####ANNETTE Foss ([id number])[facility] ([facility])[address] [place] [address] Anion gap 4 (BldA) [Moles/Vol] 15 mmo/L Normal 10-25 [facility] Comment on above: Performed By: #### 9 3685-6 ####ANNETTE Foss ([id number])[facility] ([facility])[id number] [place] [address] 16600 Base excess Calc (Bld) [Moles/Vol] -5.6000 mmol/L Low -2.0-3.0 [facility] Comment on above: Performed By: #### 9 3685-6 ####ANNETTE Foss ([id number])[facility] ([facility])[id number] [place] [address] 82386 Calcium.ionized (BldA) [Moles/Vol] 1.17 mmol/L Normal 1.10-1.33 [facility] Comment on above: Performed By: #### 9 3685-6 ####ANNETTE Foss ([id number])[facility] ([facility])[id number] [place] [address] 03986 Chloride (BldA) [Moles/Vol] 106 mmol/L Normal 98-107 [facility] Comment on above: Performed By: #### 9 3685-6 ####ANNETTE Foss ([id number])[facility] ([facility])[address] [place] [address] CO2 (Bld) [Partial pressure] 46 mm Hg High 38-42 [facility] Comment on above: Performed By: #### 9 3685-6 ####ANNETTE Foss ([id number])[facility] ([facility])[id number] [place] [address] 46004 Glucose [Mass/Vol] 137 mg/dL High 74-99 [facility] Comment on above: Performed By: #### 9 3685-6 ####ANNETTE Foss ([id number])[facility] ([facility])[address] [place] [address] HCO3 (Bld) [Moles/Vol] 21.1 mmol/L Low 22.0-26.0 [facility] Comment on above: Performed By: #### 9 3685-6 ####ANNETTE Foss ([id number])[facility] ([facility])[address] [place] [address] Hematocrit Est (Bld) [Volume fraction] 27.0 % Low 41.0-52.0 [facility] Comment on above: Performed By: #### 9 3685-6 ####ANNETTE Foss ([id number])[facility] ([facility])[address] [place] [address] Hemoglobin (Bld) [Mass/Vol] 9.1 g/dL Low 13.5-17.5 [facility] Comment on above: Performed By: #### 9 8575-6 ####ANNETTE Foss ([id number])[facility] ([facility])[address] [place] [address] Inhaled oxygen concentration 45 % Normal [facility] Comment on above: Performed By: #### 9 8725-6 ####ANNETTE Foss ([id number])[facility] ([facility])[address] [place] [address] Lactate (BldA) [Moles/Vol] 3.8 mmol/L High 0.4-2.0 [facility] Comment on above: Performed By: #### 9 7995-6 ####ANNETTE Foss ([id number])[facility] ([facility])[address] [place] [address] Oxygen (Bld) [Partial pressure] 77 mm Hg Low 85-95 [facility] Comment on above: Performed By: #### 9 1015-6 ####ANNETTE Foss ([id number])[facility] ([facility])[address] [place] [address] Oxyhemoglobin (BldA) [Mass fraction] 94.7 % Normal 94.0-98.0 [facility] Comment on above: Performed By: #### 9 3685-6 ####ANNETTE Foss ([id number])[facility] ([facility])[address] [place] [address] pH (Bld) 7.27 [pH] Low 7.38-7.42 [facility] Comment on above: Performed By: #### 9 3685-6 ####ANNETTE Foss ([id number])[facility] ([facility])[address] [place] [address] Potassium (BldA) [Moles/Vol] 4.8 mmol/L Normal 3.5-5.3 [facility] Comment on above: Performed By: #### 9 3685-6 ####ANNETTE Foss ([id number])[facility] ([facility])[address] [place] [address] Sodium (BldA) [Moles/Vol] 137 mmol/L Normal 136-145 [facility] Comment on above: Performed By: #### 9 3685-6 ####ANNETTE Foss ([id number])[facility] ([facility])[address] [place] [address] Anion gap 4 (BldA) [Moles/Vol] 10 mmo/L Normal 10-25 [facility] Comment on above: Performed By: #### 9 3685-6 ####ANNETTE Foss ([id number])[facility] ([facility])[address] [place] [address] Base excess Calc (Bld) [Moles/Vol] -0.8000 mmol/L Normal -2.0-3.0 [facility] Comment on above: Performed By: #### 9 3685-6 ####ANNETTE Foss ([id number])[facility] ([facility])[address] [place] [address] Calcium.ionized (BldA) [Moles/Vol] 1.13 mmol/L Normal 1.10-1.33 [facility] Comment on above: Performed By: #### 9 3685-6 ####ANNETTE Foss ([id number])[facility] ([facility])[address] [place] [address] Chloride (BldA) [Moles/Vol] 107 mmol/L Normal 98-107 [facility] Comment on above: Performed By: #### 9 3685-6 ####ANNETTE Foss ([id number])[facility])[address] [place] [address] CO2 (Bld) [Partial pressure] 34 mm Hg Low 38-42 [facility] Comment on above: Performed By: #### 9 3685-6 ####ANNETTE Foss ([id number])[facility])[address] [place] [address] Glucose [Mass/Vol] 119 mg/dL High 74-99 [facility] Comment on above: Performed By: #### 9 5515-6 ####ANNETTE Foss ([id number])[facility] ([facility])[address] [place] [address]38[address] HCO3 (Bld) [Moles/Vol] 23.1 mmol/L Normal 22.0-26.0 [facility] Comment on above: Performed By: #### 9 3685-6 ####ANNETTE Foss ([id number])[facility] ([facility])[address] [place] [address] Hematocrit Est (Bld) [Volume fraction] 27.0 % Low 41.0-52.0 [facility] Comment on above: Performed By: #### 9 3685-6 ####ANNETTE Foss ([id number])[facility] ([facility])[address] [place] [address]81 Hemoglobin (Bld) [Mass/Vol] 9.0 g/dL Low 13.5-17.5 [facility] Comment on above: Performed By: #### 9 3685-6 ####ANNETTE Foss ([id number])[facility] ([facility])[address] [place] [address] Inhaled oxygen concentration 36 % Normal [facility] Comment on above: Performed By: #### 9 3685-6 ####ANNETTE Foss ([id number])[facility] ([facility])[address] [place] [address] 38981 Lactate (BldA) [Moles/Vol] 0.7 mmol/L Normal 0.4-2.0 [facility] Comment on above: Performed By: #### 9 3685-6 ####ANNETTE Foss ([id number])[facility] ([facility])[address] [place] [address] Oxygen (Bld) [Partial pressure] 66 mm Hg Low 85-95 [facility] Comment on above: Performed By: #### 9 3685-6 ####ANNETTE Foss ([id number])[facility] ([facility])[address] [place] [address] Oxyhemoglobin (BldA) [Mass fraction] 93.4 % Low 94.0-98.0 [facility] Comment on above: Performed By: #### 9 3685-6 ####ANNETTE Foss ([id number])[facility] ([facility])[address] [place] [address]375 pH (Bld) 7.44 [pH] High 7.38-7.42 [facility] Comment on above: Performed By: #### 9 3685-6 ####ANNETTE Foss ([id number])[facility] ([facility])[address] [place] [address] Potassium (BldA) [Moles/Vol] 3.8 mmol/L Normal 3.5-5.3 [facility] Comment on above: Performed By: #### 9 7665-6 ####ANNETTE Foss ([id number])[facility] ([facility])[address] [place] [address] Sodium (BldA) [Moles/Vol] 136 mmol/L Normal 136-145 [facility] Comment on above: Performed By: #### 9 3685-6 ####ANNETTE Foss ([id number])[facility] ([facility])[address] [place] [address] Glucose Test strip manual (B ld) [Mass/Vol]on 09-29-2024 Glucose [Mass/Vol] 178 mg/dL High 74-99 [facility] Comment on above: Performed By: #### 2 341-6 ####ANNETTE Foss ([id number])[facility] ([facility])[address] [place] [address] Hepatic function 2000 panelo n 09-29-2024 ALP [Catalytic activity/Vol] 38 U/L Normal 33-136 [facility] Comment on above: Performed By: #### 2 4325-3 ####ANNETTE Foss ([id number])[facility] ([facility])[address] [place] [address] ALT With P-5'-P [Catalytic activity/Vol] 18 U/L Normal 10-52 [facility] Comment on above: Result Comment: Jaqueline ents treated with Sulfasalazine may generate falsely decreased results for ALT. Performed By: #### 2 4325-3 ####ANNETTE Foss ([id number])[facility] ([facility])[address] [place] [address] AST With P-5'-P [Catalytic activity/Vol] 38 U/L Normal 9-39 [facility] Comment on above: Performed By: #### 2 4325-3 ####ANNETTE Foss ([id number])[facility])[address] [place] [address] Bilirubin [Mass/Vol] 1.6 mg/dL High 0.0-1.2 [facility] Comment on above: Performed By: #### 2 4325-3 ####ANNETTE Foss ([id number])[facility] ([facility])[address] [place] [address] Bilirubin.direct [Mass/Vol] 0.7 mg/dL High 0.0-0.3 [facility] Comment on above: Performed By: #### 2 4325-3 ####ANNETTE Foss ([id number])[facility] ([facility])[address] [place] [address] Protein [Mass/Vol] 5.3 g/dL Low 6.4-8.2 [facility] Comment on above: Performed By: #### 2 4325-3 ####ANNETTE Foss ([id number])[facility] ([facility])[address] [place] [address] Magnesiumon 09-29-2024 Magnesium [Mass/Vol] 2.05 mg/dL Normal 1.60-2.40 [facility] Comment on above: Performed By: #### 1 9123-9 ####ANNETTE Foss ([id number])[facility] ([facility])[address] [place] [address] Magnesium [Mass/Vol] 2.12 mg/dL Normal 1.60-2.40 [facility] Comment on above: Performed By: #### 1 9123-9 ####ANNETTE Foss ([id number])[facility] ([facility])[address] [place] [address] Magnesium [Mass/Vol] 2.03 mg/dL Normal 1.60-2.40 [facility] Comment on above: Performed By: #### 1 9123-9 ####ANNETTE Foss ([id number])[facility] ([facility])[address] [place] [address] PT and aPTT panel Coag (PPP) on 09-29-2024 aPTT Coag (PPP) [Time] 25 s Low 26-36 [facility] Comment on above: Order Comment: The A PTT is no longer used for monitoring Unfractionated Heparin Therapy. For monitoring Heparin Therapy, use the Heparin Assay. Performed By: #### 3 4529-8 ####ANNETTE Foss ([id number])[facility] ([facility])[address] [facility] [place] [address] INR Coag (PPP) [Relative time] 1.2 High 0.9-1.1 [facility] Comment on above: Order Comment: The A PTT is no longer used for monitoring Unfractionated Heparin Therapy. For monitoring Heparin Therapy, use the Heparin Assay. Performed By: #### 3 4529-8 ####ANNETTE ELIZABETHER L ([id number])[facility] ([facility])[address] [facility] [place] [address] PT Coag (PPP) [Time] 13.5 s High 9.8-12.4 [facility] Comment on above: Order Comment: The A PTT is no longer used for monitoring Unfractionated Heparin Therapy. For monitoring Heparin Therapy, use the Heparin Assay. Performed By: #### 3 4529-8 ####ANNETTE RAMSEYTZVISHNU L ([id number])[facility] ([facility])[address] [facility] [place] [address] aPTT Coag (PPP) [Time] 24 s Low 26-36 [facility] Comment on above: Order Comment: The A PTT is no longer used for monitoring Unfractionated Heparin Therapy. For monitoring Heparin Therapy, use the Heparin Assay. Performed By: #### 3 4529-8 ####ANNETTE Foss ([id number])[facility] ([facility])[address] [facility] [place] [address] INR Coag (PPP) [Relative time] 1.7 High 0.9-1.1 [facility] Comment on above: Order Comment: The A PTT is no longer used for monitoring Unfractionated Heparin Therapy. For monitoring Heparin Therapy, use the Heparin Assay. Performed By: #### 3 4529-8 ####ANNETTE YEBOAHMOTZER L ([id number])[facility] ([facility])[address] [facility] [place] [address] PT Coag (PPP) [Time] 18.3 s High 9.8-12.4 [facility] Comment on above: Order Comment: The A PTT is no longer used for monitoring Unfractionated Heparin Therapy. For monitoring Heparin Therapy, use the Heparin Assay. Performed By: #### 3 4529-8 ####ANNETTE Foss ([id number])[facility] ([facility])[address] [place] [address] 13707 aPTT Coag (PPP) [Time] 24 s Low 26-36 [facility] Comment on above: Order Comment: The A PTT is no longer used for monitoring Unfractionated Heparin Therapy. For monitoring Heparin Therapy, use the Heparin Assay. Performed By: #### 3 4529-8 ####ANNETTE Foss ([id number])[facility] ([facility])[address] [place] [address] INR Coag (PPP) [Relative time] 1.5 High 0.9-1.1 [facility] Comment on above: Order Comment: The A PTT is no longer used for monitoring Unfractionated Heparin Therapy. For monitoring Heparin Therapy, use the Heparin Assay. Performed By: #### 3 4529-8 ####ANNETTE Foss ([id number])[facility] ([facility])[address] [place] [address] 6[address] PT Coag (PPP) [Time] 16.9 s High 9.8-12.4 [facility] Comment on above: Order Comment: The A PTT is no longer used for monitoring Unfractionated Heparin Therapy. For monitoring Heparin Therapy, use the Heparin Assay. Performed By: #### 3 4529-8 ####ANNETTE Foss ([id number])[facility] ([facility])[address] [place] [address] 88474 aPTT Coag (PPP) [Time] 27 s Normal 26-36 [facility] Comment on above: Order Comment: The A PTT is no longer used for monitoring Unfractionated Heparin Therapy. For monitoring Heparin Therapy, use the Heparin Assay. Performed By: #### 3 4529-8 ####ANNETTE RAMSEYTZVISHNU Foss ([id number])[facility] ([facility])[address] [place] [address] 7[address]34 INR Coag (PPP) [Relative time] 1.6 High 0.9-1.1 [facility] Comment on above: Order Comment: The A PTT is no longer used for monitoring Unfractionated Heparin Therapy. For monitoring Heparin Therapy, use the Heparin Assay. Performed By: #### 3 4529-8 ####ANNETTE Foss ([id number])[facility] ([facility])[address] [place] [address] 88553 PT Coag (PPP) [Time] 17.7 s High 9.8-12.4 [facility] Comment on above: Order Comment: The A PTT is no longer used for monitoring Unfractionated Heparin Therapy. For monitoring Heparin Therapy, use the Heparin Assay. Performed By: #### 3 4529-8 ####ANNETTE Foss ([id number])[facility] ([facility])[address] [place] [address] 98302 Renal function 2000 panelon 09-29-2024 Albumin BCP dye [Mass/Vol] 3.9 g/dL Normal 3.4-5.0 [facility] Comment on above: Performed By: #### 2 4362-6 ####ANNETTE Foss ([id number])[facility] ([facility])[address] [place] [address] 27162 Anion gap [Moles/Vol] 16 mmol/L Normal 10-20 [facility] Comment on above: Performed By: #### 2 4362-6 ####ANNETTE Foss ([id number])[facility])[address] [place] [address] 11540 Calcium [Mass/Vol] 8.2 mg/dL Low 8.6-10.6 [facility] Comment on above: Performed By: #### 2 4362-6 ####ANNETTE Foss ([id number])[facility] ([facility])[address] [place] [address] 32680 Chloride [Moles/Vol] 104 mmol/L Normal 98-107 [facility] Comment on above: Performed By: #### 2 4362-6 ####ANNETTE Foss ([id number])[facility] ([facility])[address] [place] [address] CO2 [Moles/Vol] 23 mmol/L Normal 21-32 [facility] Comment on above: Performed By: #### 2 4362-6 ####ANNETTE Foss ([id number])[facility] ([facility])[address] [place] [address] Creatinine [Mass/Vol] 1.08 mg/dL Normal 0.50-1.30 [facility] Comment on above: Performed By: #### 2 4362-6 ####ANNETET Foss (43560)[facility] ([facility])[address] [place] [address] Glomerular filtration rate 72 mL/min/1.73m*2 Normal >60 [facility] Comment on above: Result Comment: Calc ulations of estimated GFR are performed using the 2020 CKD-EPI Study Refit equation without the race variable for the IDMS-Traceable creatinine methods.https://jasn.asnjournals.org/content// ASN.9084603711 Performed By: #### 2 4362-6 ####ANNETTE Foss ([id number])[facility] ([facility])[address] [place] [address] Glucose [Mass/Vol] 168 mg/dL High 74-99 [facility] Comment on above: Performed By: #### 2 4362-6 ####ANNETTE Foss ([id number])[facility] ([facility])[address] [place] [address] Phosphate [Mass/Vol] 2.8 mg/dL Normal 2.5-4.9 [facility] Comment on above: Performed By: #### 2 4362-6 ####ANNETTE Foss (15662)[facility] ([facility])[address] [place] [address] Potassium [Moles/Vol] 3.9 mmol/L Normal 3.5-5.3 [facility] Comment on above: Performed By: #### 2 4362-6 ####ANNETTE Foss ([id number])[facility] ([facility])[address] [place] [address] Sodium [Moles/Vol] 139 mmol/L Normal 136-145 [facility] Comment on above: Performed By: #### 2 4362-6 ####ANNETTE Foss ([id number])[facility])[address] [place] [address] Urea nitrogen [Mass/Vol] 24 mg/dL High 6-23 [facility] Comment on above: Performed By: #### 2 4362-6 ####ANNETTE Foss ([id number])[facility] ([facility])[address] [place] [address] 71982 Albumin BCP dye [Mass/Vol] 4.0 g/dL Normal 3.4-5.0 [facility] Comment on above: Performed By: #### 2 4362-6 ####ANNETTE Foss ([id number])[facility])[address] [place] [address] Performed By: #### 2 4325-3 ####ANNETTE Foss ([id number])[facility] ([facility])[address] [place] [address] Anion gap [Moles/Vol] 17 mmol/L Normal 10-20 [facility] Comment on above: Performed By: #### 2 4362-6 ####ANNETTE GARCIA L (65905)[facility] ([facility])[address] [place] [address] Calcium [Mass/Vol] 8.0 mg/dL Low 8.6-10.6 [facility] Comment on above: Performed By: #### 2 4362-6 ####ANNETTE GARCIA L ([id number])[facility] ([facility])[address] [place] [address] Chloride [Moles/Vol] 103 mmol/L Normal 98-107 [facility] Comment on above: Performed By: #### 2 4362-6 ####ANNETTE Foss ([id number])[facility])[address] [place] [address] CO2 [Moles/Vol] 24 mmol/L Normal 21-32 [facility] Comment on above: Performed By: #### 2 4362-6 ####ANNETTE Foss ([id number])[facility])[address] [place] [address] Creatinine [Mass/Vol] 1.08 mg/dL Normal 0.50-1.30 [facility] Comment on above: Performed By: #### 2 4362-6 ####ANNETTE Foss ([id number])[facility] ([facility])[address] [place] [address] Glomerular filtration rate 72 mL/min/1.73m*2 Normal >60 [facility] Comment on above: Result Comment: Calc ulations of estimated GFR are performed using the 2020 CKD-EPI Study Refit equation without the race variable for the IDMS-Traceable creatinine methods.https://jasn.asnjournals.org/content/early// ASN.8773962631 Performed By: #### 2 4362-6 ####ANNETTE Foss ([id number])[facility])[address] [place] [address] Glucose [Mass/Vol] 207 mg/dL High 74-99 [facility] Comment on above: Performed By: #### 2 4362-6 ####ANNETTE Foss ([id number])[facility])[address] [place] [address] Phosphate [Mass/Vol] 4.9 mg/dL Normal 2.5-4.9 [facility] Comment on above: Performed By: #### 2 4362-6 ####ANNETTE Foss ([id number])[facility])[address] [place] [address] Potassium [Moles/Vol] 4.5 mmol/L Normal 3.5-5.3 [facility] Comment on above: Performed By: #### 2 4362-6 ####ANNETTE Foss ([id number])[facility])[address] [place] [address] Sodium [Moles/Vol] 139 mmol/L Normal 136-145 [facility] Comment on above: Performed By: #### 2 4362-6 ####ANNETTE Foss ([id number])[facility])[address] [place] [address] Urea nitrogen [Mass/Vol] 21 mg/dL Normal 6-23 [facility] Comment on above: Performed By: #### 2 4362-6 ####ANNETTE Foss ([id number])[facility])[address] [place] [address] Albumin BCP dye [Mass/Vol] 3.9 g/dL Normal 3.4-5.0 [facility] Comment on above: Performed By: #### 2 4362-6 ####ANNETTE Foss (80281)[facility])[address] [place] [address] Anion gap [Moles/Vol] 13 mmol/L Normal 10-20 [facility] Comment on above: Performed By: #### 2 4362-6 ####ANNETTE Foss (07474)[facility])[address] [place] [address] Calcium [Mass/Vol] 8.3 mg/dL Low 8.6-10.6 [facility] Comment on above: Performed By: #### 2 4362-6 ####ANNETTE Foss (99382)[facility])[address] [place] [address] Chloride [Moles/Vol] 105 mmol/L Normal 98-107 [facility] Comment on above: Performed By: #### 2 4362-6 ####ANNETTE Foss ([id number])[facility])[address] [place] [address] CO2 [Moles/Vol] 25 mmol/L Normal 21-32 [facility] Comment on above: Performed By: #### 2 4362-6 ####ANNETTE Foss ([id number])[facility])[address] [place] [address] Creatinine [Mass/Vol] 0.82 mg/dL Normal 0.50-1.30 [facility] Comment on above: Performed By: #### 2 4362-6 ####ANNETTE Foss (71086)[facility] ([facility])[address] [place] [address] Glomerular filtration rate >90 Normal >60 [facility] Comment on above: Result Comment: Calc ulations of estimated GFR are performed using the 2020 CKD-EPI Study Refit equation without the race variable for the IDMS-Traceable creatinine methods.https://jasn.asnjournals.org/content/early/ ASN.5525782555 Performed By: #### 2 4362-6 ####ANNETTE Foss ([id number])[facility])[address] [place] [address] Glucose [Mass/Vol] 120 mg/dL High 74-99 [facility] Comment on above: Performed By: #### 2 4362-6 ####ANNETTE GARCIA L ([id number])[facility])[address] [place] [address] Phosphate [Mass/Vol] 1.8 mg/dL Low 2.5-4.9 [facility] Comment on above: Performed By: #### 2 4362-6 ####ANNETTE GARCIA L ([id number])[facility])[address] [place] [address] Potassium [Moles/Vol] 3.8 mmol/L Normal 3.5-5.3 [facility] Comment on above: Performed By: #### 2 4362-6 ####ANNETTE Foss ([id number])[facility])[address] [place] [address] Sodium [Moles/Vol] 139 mmol/L Normal 136-145 [facility] Comment on above: Performed By: #### 2 4362-6 ####ANNETTE Foss ([id number])[facility])[address] [place] [address] Urea nitrogen [Mass/Vol] 18 mg/dL Normal 6-23 [facility] Comment on above: Performed By: #### 2 4362-6 ####ANNETTE Foss ([id number])[facility] ([facility])[id number] [place] [address] THROMBOELASTOGRAPH CLOTTING GLOBAL PROFILEon 09-29-2024 Clot angle.kaolin induced 73.0 deg Normal 63.0-78.0 [facility] Comment on above: Performed By: #### P OCTEGLO ####ANNETTE Foss ([id number])[facility] ([facility])[address] [place] [address] Clot formation.kaolin induced 1.4 min Normal 0.8-2.1 [facility] Comment on above: Performed By: #### P OCTEGLO ####ANNETTE Foss ([id number])[facility] ([facility])[address] [place] [address] Clot initiation.kaolin induced 4.1 min Low 4.6-9.1 [facility] Comment on above: Performed By: #### P OCTEGLO ####ANNETTE Foss ([id number])[facility] ([facility])[address] [place] [address] Clot initiation.kaolin induced^post heparin neutralization 4.1 min Low 4.3-8.3 [facility] Comment on above: Performed By: #### P OCTEGLO ####ANNETTE SCHMOTZER L ([id number])[facility] ([facility])[address] [place] [address] Fibrinogen 318 mg/dL Normal 278-581 [facility] Comment on above: Performed By: #### P OCTEGLO ####ANNETTE SCHMOTZER L ([id number])[facility] ([facility])[id number] [place] [address]78 Maximum clot strength amplitude.kaolin induced 55.0 mm Normal 52.0-69.0 [facility] Comment on above: Performed By: #### P OCTEGLO ####ANNETTE SCHMOTZER L ([id number])[facility] ([facility])[address] [place] [address] Maximum clot strength amplitude.kaolin+tissue factor induced 57.0 mm Normal 52.0-70.0 [facility] Comment on above: Performed By: #### P OCTEGLO ####ANNETTE SCHMOTZER L ([id number])[facility] ([facility])[id number] [place] [address]64 Maximum clot strength amplitude.tissue factor induced+platelet glycoprotein IIb-IIIa receptor inhibited 17.0 mm Normal 15.0-32.0 [facility] Comment on above: Performed By: #### P OCTEGLO ####ANNETTE YEBOAHMOTZER L ([id number])[facility] ([facility])[address] [place] [address] 10193 THROMBOELASTOGRAPH CLOTTING LYSIS PROFILEon 09-29-2024 Clot initiation.kaolin induced 5.5 min Normal 4.6-9.1 [facility] Comment on above: Performed By: #### P OCTEGLY ####ANNETTE SCHMOTZER L ([id number])[facility] ([facility])[id number] [place] [address]351 Maximum clot strength amplitude.kaolin+tissue factor induced 61.0 mm Normal 52.0-70.0 [facility] Comment on above: Performed By: #### P OCTEGLY ####ANNETTE YEBOAHMOTZER L ([id number])[facility] ([facility])[address] [place] 9758906 Maximum clot strength amplitude.tissue factor induced+platelet glycoprotein IIb-IIIa receptor inhibited 19.0 mm Normal 15.0-32.0 [facility] Comment on above: Performed By: #### P OCTEGLY ####ANNETTE Foss ([id number])[facility] ([facility])[address] [place] [address] Reduction in clot strength.kaolin induced^30M post maximum clot amplitude 2.0 % Normal 0.0-2.6 [facility] Comment on above: Performed By: #### P OCTEGLY ####ANNETTE Foss ([id number])[facility] ([facility])[address] [place], [place] [address] TRANSTHORACIC ECHO (TTE) MONROY ITEDon 09-29-2024 TRANSTHORACIC ECHO (TTE) LIMITED Normal [facility] TSH WITH REFLEX TO FREE T4 I F ABNORMALon 09-29-2024 TSH Qn 0.51 m[IU]/L Normal 0.44-3.98 [facility] Comment on above: Order Comment: TSH t esting is performed using different testing methodology at [facility] than at other [facility]. Direct result comparisons should only be made within the same method. Performed By: #### T FRANSICO ####ANNETTE Foss ([id number])[facility] ([facility])[address] [place], [place] [address] XR CHEST 1 VIEWon 09-29-2024 XR CHEST 1 VIEW Normal [facility] CBC panel Auto (Bld)on 09-28 Erythrocyte distribution width (RBC) [Ratio] 14.5 % Normal 11.5-14.5 [facility] Comment on above: Performed By: #### 5 8410-2 ####ANNETTE Foss ([id number])[facility] ([facility])[address] [place], [place] [address] Hematocrit (Bld) [Volume fraction] 28.0 % Low 41.0-52.0 [facility] Comment on above: Performed By: #### 5 8410-2 ####ANNETTE Foss ([id number])[facility] ([facility])[address] [place] [address] Hemoglobin (Bld) [Mass/Vol] 9.1 g/dL Low 13.5-17.5 [facility] Comment on above: Performed By: #### 5 8410-2 ####ANNETTE Foss ([id number])[facility] ([facility])[address] [place] [address] MCH (RBC) [Entitic mass] 29.7 pg Normal 26.0-34.0 [facility] Comment on above: Performed By: #### 5 8410-2 ####ANNETTE Foss ([id number])[facility] ([facility])[address] [place] [address] MCHC (RBC) [Mass/Vol] 32.5 g/dL Normal 32.0-36.0 [facility] Comment on above: Performed By: #### 5 8410-2 ####ANNETTE Foss ([id number])[facility] ([facility])[address] [place] [address] MCV (RBC) [Entitic vol] 92 fL Normal 80-100 [facility] Comment on above: Performed By: #### 5 8410-2 ####ANNETTE Foss ([id number])[facility] ([facility])[address] [place] [address] Nucleated RBC/100 WBC (Bld) [Ratio] 0.0 /100 WBCs Normal 0.0-0.0 [facility] Comment on above: Performed By: #### 5 8410-2 ####ANNETTE Foss ([id number])[facility] ([facility])[address] [place] [address] Platelets (Bld) [#/Vol] 158 x10*3/uL Normal 150-450 [facility] Comment on above: Performed By: #### 5 8410-2 ####ANNETTE Foss ([id number])[facility] ([facility])[address] [place] [address] RBC (Bld) [#/Vol] 3.06 x10*6/uL Low 4.50-5.90 [facility] Comment on above: Performed By: #### 5 8410-2 ####ANNETTE Foss ([id number])[facility] ([facility])[address] [place] [address]90 WBC (Bld) [#/Vol] 13.5 x10*3/uL High 4.4-11.3 [facility] Comment on above: Performed By: #### 5 8410-2 ####ANNETTE Foss ([id number])[facility] ([facility])[address] [place] [address]2691 Erythrocyte distribution width (RBC) [Ratio] 14.6 % High 11.5-14.5 [facility] Comment on above: Performed By: #### 5 8410-2 ####ANNETTE Foss ([id number])[facility] ([facility])[address] [place] [address] Hematocrit (Bld) [Volume fraction] 25.3 % Low 41.0-52.0 [facility] Comment on above: Performed By: #### 5 8410-2 ####ANNETTE Foss ([id number])[facility] ([facility])[address] [place] [address]561 Hemoglobin (Bld) [Mass/Vol] 8.4 g/dL Low 13.5-17.5 [facility] Comment on above: Performed By: #### 5 8410-2 ####ANNETTE Foss ([id number])[facility] ([facility])[address] [place] [address] 17295 MCH (RBC) [Entitic mass] 30.1 pg Normal 26.0-34.0 [facility] Comment on above: Performed By: #### 5 8410-2 ####ANNETTE Foss ([id number])[facility] ([facility])[address] [place] [address] 81883 MCHC (RBC) [Mass/Vol] 33.2 g/dL Normal 32.0-36.0 [facility] Comment on above: Performed By: #### 5 8410-2 ####ANNETTE Foss ([id number])[facility] ([facility])[address] [place] [address] MCV (RBC) [Entitic vol] 91 fL Normal 80-100 [facility] Comment on above: Performed By: #### 5 8410-2 ####ANNETTE Foss ([id number])[facility] ([facility])[address] [place] [address] 48075 Nucleated RBC/100 WBC (Bld) [Ratio] 0.0 /100 WBCs Normal 0.0-0.0 [facility] Comment on above: Performed By: #### 5 8410-2 ####ANNETTE Foss ([id number])[facility] ([facility])[address] [place] [address] Platelets (Bld) [#/Vol] 142 x10*3/uL Low 150-450 [facility] Comment on above: Performed By: #### 5 8410-2 ####ANNETTE Foss ([id number])[facility] ([facility])[address] [place] [address] 13645 RBC (Bld) [#/Vol] 2.79 x10*6/uL Low 4.50-5.90 [facility] Comment on above: Performed By: #### 5 8410-2 ####ANNETTE Foss ([id number])[facility] ([facility])[address] [place] [address] 39760 WBC (Bld) [#/Vol] 10.7 x10*3/uL Normal 4.4-11.3 [facility] Comment on above: Performed By: #### 5 8410-2 ####ANNETTE Foss ([id number])[facility] ([facility])[address] [place] [address] CT ANGIO ABDOMEN PELVIS W AN D/OR WO IV IV CONTRASTon 09-28-2024 CT ANGIO ABDOMEN PELVIS W AND/OR WO IV IV CONTRAST Normal [facility] Calcium.ionizedon 09-28-2024 Calcium.ionized (Bld) [Moles/Vol] 1.11 mmol/L Normal 1.1-1.33 [facility] Comment on above: Result Comment: The performance characteristics of ionized calcium testedin heparinized plasma or serum have been validated [facility].Testing on heparinized plasma or serum is not approved bythe FDA; however, such approval is not necessary. Performed By: #### 1 994-3 ####ANNETTE Foss ([id number])[facility] ([facility])[address] [place] [address] Glucose Test strip manual (B ld) [Mass/Vol]on 09-28-2024 Glucose [Mass/Vol] 129 mg/dL High [address] [place] [address] Comment on above: Performed By: #### 2 341-6 ####ANNETTE Foss ([id number])[facility] ([facility])[address] [place] [address] Glucose [Mass/Vol] 93 mg/dL Normal [address] [place] [address] Comment on above: Performed By: #### 2 341-6 ####ANNETTE oFss ([id number])[facility] ([facility])[address] [place] [address] Glucose [Mass/Vol] 113 mg/dL High [address] [place] [address] Comment on above: Performed By: #### 2 341-6 ####ANNETTE Foss ([id number])[facility] ([facility])[address] [place] [address] Glucose [Mass/Vol] 104 mg/dL High [address] [place] [address] Comment on above: Performed By: #### 2 341-6 ####ANNETTE Foss ([id number])[facility] ([facility])[address] [place] [address] Glucose [Mass/Vol] 106 mg/dL High 74-99 [facility] Comment on above: Performed By: #### 2 341-6 ####ANNETTE Foss ([id number])[facility])[address] [place] [address] Glucose [Mass/Vol] 83 mg/dL Normal 74-99 [facility] Comment on above: Performed By: #### 2 341-6 ####ANNETTE Foss ([id number])[facility] ([facility])[address] [place] [address] 96218 Magnesiumon 09-28-2024 Magnesium [Mass/Vol] 2.06 mg/dL Normal 1.60-2.40 [facility] Comment on above: Performed By: #### 1 9123-9 ####ANNETTE Foss ([id number])[facility] ([facility])[address] [place] [address] 839[address] PT and aPTT panel Coag (PPP) on 09-28-2024 aPTT Coag (PPP) [Time] 28 s Normal 26-36 [facility] Comment on above: Order Comment: The A PTT is no longer used for monitoring Unfractionated Heparin Therapy. For monitoring Heparin Therapy, use the Heparin Assay. Performed By: #### 3 4529-8 ####ANNETTE Foss ([id number])[facility] ([facility])[address] [place] [address] 81132 INR Coag (PPP) [Relative time] 1.7 High 0.9-1.1 [facility] Comment on above: Order Comment: The A PTT is no longer used for monitoring Unfractionated Heparin Therapy. For monitoring Heparin Therapy, use the Heparin Assay. Performed By: #### 3 4529-8 ####ANNETTE Foss ([id number])[facility] ([facility])[address] [place] [address] PT Coag (PPP) [Time] 19.2 s High 9.8-12.4 [facility] Comment on above: Order Comment: The A PTT is no longer used for monitoring Unfractionated Heparin Therapy. For monitoring Heparin Therapy, use the Heparin Assay. Performed By: #### 3 4529-8 ####ANNETTE Foss ([id number])[facility] ([facility])[address] [place] [address] Renal function 2000 panelon 09-28-2024 Albumin BCP dye [Mass/Vol] 3.7 g/dL Normal 3.4-5.0 [facility] Comment on above: Performed By: #### 2 4362-6 ####ANNETTE Foss ([id number])[facility] ([facility])[address] [place] [address] Anion gap [Moles/Vol] 14 mmol/L Normal 10-20 [facility] Comment on above: Performed By: #### 2 4362-6 ####ANNETTE Foss (64663)[facility] ([facility])[address] [place] [address] Calcium [Mass/Vol] 8.1 mg/dL Low 8.6-10.6 [facility] Comment on above: Performed By: #### 2 4362-6 ####ANNETTE Foss ([id number])[facility] ([facility])[address] [place] [address] Chloride [Moles/Vol] 104 mmol/L Normal 98-107 [facility] Comment on above: Performed By: #### 2 4362-6 ####ANNETTE Foss ([id number])[facility] ([facility])[address] [place] [address] CO2 [Moles/Vol] 23 mmol/L Normal 21-32 [facility] Comment on above: Performed By: #### 2 4362-6 ####ANNETTE Foss ([id number])[facility] ([facility])[address] [place] [address] Creatinine [Mass/Vol] 0.86 mg/dL Normal 0.50-1.30 [facility] Comment on above: Performed By: #### 2 4362-6 ####ANNETTE Foss ([id number])[facility] ([facility])[address] [place] [address] Glomerular filtration rate 90 mL/min/1.73m*2 Normal >60 [facility] Comment on above: Result Comment: Calc ulations of estimated GFR are performed using the 2020 CKD-EPI Study Refit equation without the race variable for the IDMS-Traceable creatinine methods.https://jasn.asnjournals.org/content/early/ ASN.6409463305 Performed By: #### 2 4362-6 ####ANNETTE Foss ([id number])[facility] ([facility])[address] [place] [address] Glucose [Mass/Vol] 111 mg/dL High 74-99 [facility] Comment on above: Performed By: #### 2 4362-6 ####ANNETTE Foss ([id number])[facility] ([facility])[address] [place] [address] Phosphate [Mass/Vol] 1.5 mg/dL Low 2.5-4.9 [facility] Comment on above: Performed By: #### 2 4362-6 ####ANNETTE GARCIA L (85015)[facility])[address] [place] [address] Potassium [Moles/Vol] 3.8 mmol/L Normal 3.5-5.3 [facility] Comment on above: Performed By: #### 2 4362-6 ####ANNETTE GARCIA L ([id number])[facility])[address] [place] [address] Sodium [Moles/Vol] 137 mmol/L Normal 136-145 [facility] Comment on above: Performed By: #### 2 4362-6 ####ANNETTE GARCIA L ([id number])[facility])[address] [facility] [place] [address] Urea nitrogen [Mass/Vol] 19 mg/dL Normal 6-23 [facility] Comment on above: Performed By: #### 2 4362-6 ####ANNETTE Foss ([id number])[facility])[address] [place] [address] Albumin BCP dye [Mass/Vol] 3.1 g/dL Low 3.4-5.0 [facility] Comment on above: Performed By: #### 2 4362-6 ####ANNETTE Foss ([id number])[facility])[address] [place] [address] Anion gap [Moles/Vol] 13 mmol/L Normal 10-20 [facility] Comment on above: Performed By: #### 2 4362-6 ####ANNETTE Foss ([id number])[facility])[address] [place] [address] Calcium [Mass/Vol] 7.8 mg/dL Low 8.6-10.6 [facility] Comment on above: Performed By: #### 2 4362-6 ####ANNETTE Foss ([id number])[facility])[address] [place] [address] Chloride [Moles/Vol] 105 mmol/L Normal 98-107 [facility] Comment on above: Performed By: #### 2 4362-6 ####ANNETTE GARCIA L ([id number])[facility])[address] [place] [address] CO2 [Moles/Vol] 24 mmol/L Normal 21-32 [facility] Comment on above: Performed By: #### 2 4362-6 ####ANNETTE GARCIA L (76095)[facility])[address] [place] [address] Creatinine [Mass/Vol] 1.03 mg/dL Normal 0.50-1.30 [facility] Comment on above: Performed By: #### 2 4362-6 ####ANNETTE GARCIA L ([id number])[facility])[address] [place] [address] Glomerular filtration rate 76 mL/min/1.73m*2 Normal >60 [facility] Comment on above: Result Comment: Calc ulations of estimated GFR are performed using the 2020 CKD-EPI Study Refit equation without the race variable for the IDMS-Traceable creatinine methods.https://jasn.asnjournals.org/content// ASN.3187855070 Performed By: #### 2 4362-6 ####ANNETTE Foss ([id number])[facility] ([facility])[address] [place] [address] Glucose [Mass/Vol] 109 mg/dL High 74-99 [facility] Comment on above: Performed By: #### 2 4362-6 ####ANNETTE Foss ([id number])[facility])[address] [place] [address] Phosphate [Mass/Vol] 2.6 mg/dL Normal 2.5-4.9 [facility] Comment on above: Performed By: #### 2 4362-6 ####ANNETTE Foss ([id number])[facility])[address] [place] [address] Potassium [Moles/Vol] 3.6 mmol/L Normal 3.5-5.3 [facility] Comment on above: Performed By: #### 2 4362-6 ####ANNETTE GARCIA L ([id number])[facility])[address] [place] [address] Sodium [Moles/Vol] 138 mmol/L Normal 136-145 [facility] Comment on above: Performed By: #### 2 4362-6 ####ANNETTE Foss ([id number])[facility])[address] [place] [address] Urea nitrogen [Mass/Vol] 25 mg/dL High 6-23 [facility] Comment on above: Performed By: #### 2 4362-6 ####ANNETTE Foss ([id number])[facility])[address] [facility] [place] [address] XR CHEST 1 VIEWon 09-28-2024 XR CHEST 1 VIEW Normal [facility] Activated clotting timeon ACT Coag (Bld) [address] [facility] Comment on above: Result Comment: Targ et ACT range will vary based on the patient population, clinical status, and surgical intervention occurring. Performed By: #### 3 184-9 ####ANNETTE Foss ([id number])[facility] ([facility])[address] [place] [address] ACT Coag (Bld) [address] Comment on above: Result Comment: Targ et ACT range will vary based on the patient population, clinical status, and surgical intervention occurring. Performed By: #### 3 184-9 ####ANNETTE Foss ([id number])[facility] ([facility])[address] [place] [address] ACT Coag (Bld) [address] Comment on above: Result Comment: Targ et ACT range will vary based on the patient population, clinical status, and surgical intervention occurring. Performed By: #### 3 184-9 ####ANNETTE Foss ([id number])[facility] ([facility])[address] [place] [address] ACT Coag (Bld) [address] Comment on above: Result Comment: Targ et ACT range will vary based on the patient population, clinical status, and surgical intervention occurring. Performed By: #### 3 184-9 ####ANNETTE Foss ([id number])[facility])[address] [place] [address] ACT Coag (Bld) [address] Comment on above: Result Comment: Targ et ACT range will vary based on the patient population, clinical status, and surgical intervention occurring. Performed By: #### 3 184-9 ####ANNETTE Foss ([id number])[facility] ([facility])[address] [place] [address] ACT Coag (Bld) [address] Comment on above: Result Comment: Targ et ACT range will vary based on the patient population, clinical status, and surgical intervention occurring. Performed By: #### 3 184-9 ####ANNETTE Foss ([id number])[facility] ([facility])[address] [place] [address] ACT Coag (Bld) [address] Comment on above: Result Comment: Targ et ACT range will vary based on the patient population, clinical status, and surgical intervention occurring. Performed By: #### 3 184-9 ####ANNETTE Foss ([id number])[facility] ([facility])[address] [place] [address] ACT Coag (Bld) [address] Comment on above: Result Comment: Targ et ACT range will vary based on the patient population, clinical status, and surgical intervention occurring. Performed By: #### 3 184-9 ####ANNETTE Foss ([id number])[facility] ([facility])[address] [place] [address] 61680 Bacteriaon 09-27-2024 Bacteria identified Cx Nom (Bld) Test: Blood Culture Specimen Source: Peripheral Venipuncture Specimen Type: Blood culture Specimen Date: 09/27/2024 0058 Result Date: 10/01/2024 1200 Result Status: Final result Abnormal: No Resulting Lab: [facility] [address] [place] [address] CULTURE No growth at 4 days - FINAL REPORT [facility] Comment on above: Performed By: #### 4 8065-7 #### MARES JESUS ([id number]) [facility] ([facility]) [address] [place] [address] Bacteria identified Cx Nom (U) Test: Urine Culture Specimen Source: Clean Catch/Voided Specimen Type: Urine Specimen Date: 09/27/202433 Result Date: 09/28/2024805 Result Status: Final result Abnormal: No Resulting Lab: [facility] [address] [place], [place] [address] CULTURE Growth indicates contamination with periurethral juan a. Repeat culture if clinically indicated. [facility] Comment on above: Performed By: #### 2 4323-8 #### VISHNU LEE ([id number]) [facility] ([facility]) [address] [place] [address] Blood type and Indirect anti body screen panel (Bld)on 09-27-2024 ABO group Nom (Bld) A [facility] Comment on above: Performed By: #### 3 4532-2 ####ANNETTE Foss ([id number])[facility] ([facility])[address] [place], [place] [address] Blood group antibody screen Ql Negative [facility] Comment on above: Performed By: #### 3 4532-2 ####ANNETTE Foss ([id number])[facility] ([facility])[address] [place], [place] [address] D Ag Ql (Bld) Positive [facility] Comment on above: Performed By: #### 3 4532-2 ####ANNETTE Foss ([id number])[facility] ([facility])[address] [place], [place] [address] ABO group Nom (Bld) A [facility] Blood group antibody screen Ql Negative [facility] D Ag Ql (Bld) Positive [facility] ABO group Nom (Bld) A [facility] Comment on above: Performed By: #### 4 8065-7 #### VISHNU LEE ([id number]) [facility] ([facility]) [address] [place], [place] [address] Blood group antibody screen Ql Negative [facility] Comment on above: Performed By: #### 4 8065-7 #### VISHNU LEE ([id number]) [facility] ([facility]) [address] [place] [address]88[address] D Ag Ql (Bld) Positive Normal [facility] Comment on above: Performed By: #### 4 8065-7 #### VISHNU LEE ([id number]) [facility] ([facility]) [address] [place], [place] [address] CBC panel Auto (Bld)on 09-27 Erythrocyte distribution width (RBC) [Ratio] 13.8 % Normal 11.5-14.5 [facility] Comment on above: Performed By: #### 5 8410-2 ####ANNETTE Foss ([id number])[facility] ([facility])[address] [place] [address] Hematocrit (Bld) [Volume fraction] 27.5 % Low 41.0-52.0 [facility] Comment on above: Performed By: #### 5 8410-2 ####ANNETTE Foss ([id number])[facility] ([facility])[address] [place] [address]94[address] Hemoglobin (Bld) [Mass/Vol] 9.3 g/dL Low 13.5-17.5 [facility] Comment on above: Performed By: #### 5 8410-2 ####ANNETTE Foss ([id number])[facility] ([facility])[address] [place] [address] 34042 MCH (RBC) [Entitic mass] 30.7 pg Normal 26.0-34.0 [facility] Comment on above: Performed By: #### 5 8410-2 ####ANNETTE Foss ([id number])[facility] ([facility])[address] [place] [address] 30660 MCHC (RBC) [Mass/Vol] 33.8 g/dL Normal 32.0-36.0 [facility] Comment on above: Performed By: #### 5 8410-2 ####ANNETTE Foss ([id number])[facility] ([facility])[address] [place] [address] MCV (RBC) [Entitic vol] 91 fL Normal 80-100 [facility] Comment on above: Performed By: #### 5 8410-2 ####ANNETTE Foss ([id number])[facility] ([facility])[id number] [place] [address] 99633 Nucleated RBC/100 WBC (Bld) [Ratio] 0.0 /100 WBCs Normal 0.0-0.0 [facility] Comment on above: Performed By: #### 5 8410-2 ####ANNETTE Foss ([id number])[facility] ([facility])[id number] [place] [address] [id number] Platelets (Bld) [#/Vol] 154 x10*3/uL Normal 150-450 [facility] Comment on above: Performed By: #### 5 8410-2 ####ANNETTE Foss ([id number])[facility] ([facility])[id number] [place] [address] 38483 RBC (Bld) [#/Vol] 3.03 x10*6/uL Low 4.50-5.90 [facility] Comment on above: Performed By: #### 5 8410-2 ####ANNETTE Foss ([id number])[facility] ([facility])[id number] [place] [address] 87855 WBC (Bld) [#/Vol] 11.8 x10*3/uL High 4.4-11.3 [facility] Comment on above: Performed By: #### 5 8410-2 ####ANNETTE Foss ([id number])[facility] ([facility])[id number] [place] [address] 00470 Erythrocyte distribution width (RBC) [Ratio] 14.0 % Normal 11.5-14.5 [facility] Comment on above: Performed By: #### 5 8410-2 ####ANNETTE Foss ([id number])[facility] ([facility])[address] [place] [address] Hematocrit (Bld) [Volume fraction] 24.7 % Low 41.0-52.0 [facility] Comment on above: Performed By: #### 5 8410-2 ####ANNETTE Foss ([id number])[facility] ([facility])[address] [place] [address] Hemoglobin (Bld) [Mass/Vol] 7.8 g/dL Low 13.5-17.5 [facility] Comment on above: Performed By: #### 5 8410-2 ####ANNETTE Foss ([id number])[facility] ([facility])[address] [place] [address] MCH (RBC) [Entitic mass] 29.1 pg Normal 26.0-34.0 [facility] Comment on above: Performed By: #### 5 8410-2 ####ANNETTE Foss ([id number])[facility] ([facility])[address] [place] [address] MCHC (RBC) [Mass/Vol] 31.6 g/dL Low 32.0-36.0 [facility] Comment on above: Performed By: #### 5 8410-2 ####ANNETTE Foss ([id number])[facility] ([facility])[address] [place] [address] MCV (RBC) [Entitic vol] 92 fL Normal 80-100 [facility] Comment on above: Performed By: #### 5 8410-2 ####ANNETTE Foss ([id number])[facility] ([facility])[address] [place] [address] Nucleated RBC/100 WBC (Bld) [Ratio] 0.0 /100 WBCs Normal 0.0-0.0 [facility] Comment on above: Performed By: #### 5 8410-2 ####ANNETTE Foss ([id number])[facility] ([facility])[address] [place] [address] Platelets (Bld) [#/Vol] 176 x10*3/uL Normal 150-450 [facility] Comment on above: Performed By: #### 5 8410-2 ####ANNETTE Foss (06269)[facility] ([facility])[address] [place] [address] RBC (Bld) [#/Vol] 2.68 x10*6/uL Low 4.50-5.90 [facility] Comment on above: Performed By: #### 5 8410-2 ####ANNETTE Foss (35059)[facility] ([facility])[address] [place] [address] WBC (Bld) [#/Vol] 16.0 x10*3/uL High 4.4-11.3 [facility] Comment on above: Performed By: #### 5 8410-2 ####ANNETTE Foss ([id number])[facility] ([facility])[address] [place] [address] Erythrocyte distribution width (RBC) [Ratio] 13.4 % 11.5 - 14.5 % [facility] Hematocrit (Bld) [Volume fraction] 33.5 % Low 41.0 - 52.0 % [facility] Hemoglobin (Bld) [Mass/Vol] 10.5 g/dL Low 13.5 - 17.5 g/dL [facility] Interpretation and review of laboratory results Abnormal [facility] MCH (RBC) [Entitic mass] 29.7 pg 26.0 - 34.0 pg [facility] MCHC (RBC) [Mass/Vol] 31.3 g/dL Low 32.0 - 36.0 g/dL [facility] MCV (RBC) [Entitic vol] 95 fL 80 - 100 fL [facility] Nucleated RBC/100 WBC (Bld) [Ratio] 0.0 % [facility] Platelets (Bld) [#/Vol] 267 10*3/uL [facility] RBC (Bld) [#/Vol] 3.53 10*6/uL Low [facility] WBC (Bld) [#/Vol] 14.9 10*3/uL High [facility] Erythrocyte distribution width (RBC) [Ratio] 13.4 % Normal 11.5-14.5 [facility] Comment on above: Performed By: #### 4 8065-7 #### VISHNU LEE ([id number]) [facility] ([facility]) [address] [place] [address] Hematocrit (Bld) [Volume fraction] 33.5 % Low 41.0-52.0 [facility] Comment on above: Performed By: #### 4 8065-7 #### VISHNU LEE ([id number]) [facility] ([facility]) [address] [place] [address] Hemoglobin (Bld) [Mass/Vol] 10.5 g/dL Low 13.5-17.5 [facility] Comment on above: Performed By: #### 4 8065-7 #### VISHNU LEE ([id number]) [facility] ([facility]) [address] [place] [address] MCH (RBC) [Entitic mass] 29.7 pg Normal 26.0-34.0 [facility] Comment on above: Performed By: #### 4 8065-7 #### VISHNU LEE ([id number]) [facility] ([facility]) [address] [place] [address] MCHC (RBC) [Mass/Vol] 31.3 g/dL Low 32.0-36.0 [facility] Comment on above: Performed By: #### 4 8065-7 #### VISHNU LEE ([id number]) [facility] ([facility]) [address] [place] [address] MCV (RBC) [Entitic vol] 95 fL Normal 80-100 [facility] Comment on above: Performed By: #### 4 8065-7 #### VISHNU LEE ([id number]) [facility] ([facility]) [address] [place] [address] Nucleated RBC/100 WBC (Bld) [Ratio] 0.0 /100 WBCs Normal 0.0-0.0 [facility] Comment on above: Performed By: #### 4 8065-7 #### VISHNU LEE ([id number]) [facility] ([facility]) [address] [place] [address] Platelets (Bld) [#/Vol] 267 x10*3/uL Normal 150-450 [facility] Comment on above: Performed By: #### 4 8065-7 #### VISHNU LEE ([id number]) [facility] ([facility]) [address] [place] [address] RBC (Bld) [#/Vol] 3.53 x10*6/uL Low 4.50-5.90 [facility] Comment on above: Performed By: #### 4 8065-7 #### VISHNU LEE (58353) [facility] ([facility]) [address] [place] [address] WBC (Bld) [#/Vol] 14.9 x10*3/uL High 4.4-11.3 [facility] Comment on above: Performed By: #### 4 8065-7 #### VISHNU LEE ([id number]) [facility] ([facility]) [address] [place] [address] CT ABDOMEN PELVIS W IV CONTR Darnell 09-27-2024 CT ABDOMEN PELVIS W IV CONTRAST Interpreted By: Pavel Blum, STUDY: CT ANGIO CHEST FOR PULMONARY EMBOLISM; CT ABDOMEN PELVIS W IV CONTRAST; 09/27/2024 12:36 am INDICATION: Signs/Symptoms:SOB, elevated D-dimer; Signs/Symptoms:Lower abdominal pain. COMPARISON: Chest CT 03/17/2023. ACCESSION NUMBER(S): [id number]; [id number] ORDERING CLINICIAN: MATTHEW AHN TECHNIQUE: Helical data acquisition of the [...] There are moderate aortic valve atherosclerotic calcifications. Rbfs-ev-lbquhlzk coronary artery calcifications are seen.The study is [...] critical finding by EPIC secure chat with MATTHEW AHN on 09/27/2024 at 12:59 am. (-RCF-) Findings: See findings. Signed by: Pavel Blum 09/27/2024 1:06 AM Dictation workstation: [id number] [facility] CT ANGIO CHEST FOR PULMONARY EMBOLISMon 09-27-2024 CT ANGIO CHEST FOR PULMONARY EMBOLISM Interpreted By: Pavel Blum, STUDY: CT ANGIO CHEST FOR PULMONARY EMBOLISM; CT ABDOMEN PELVIS W IV CONTRAST; 09/27/2024 12:36 am INDICATION: Signs/Symptoms:SOB, elevated D-dimer; Signs/Symptoms:Lower abdominal pain. COMPARISON: Chest CT 03/17/2023. ACCESSION NUMBER(S): [id number]; [id number] ORDERING CLINICIAN: MATTHEW AHN TECHNIQUE: Helical data acquisition of the [...] There are moderate aortic valve atherosclerotic calcifications. Jnnk-lq-qmkmyjuh coronary artery calcifications are seen.The study is [...] critical finding by EPIC secure chat with MATTHEW AHN on 09/27/2024 at 12:59 am. (-RCF-) Findings: See findings. Signed by: Pavel Blum 09/27/2024 1:06 AM Dictation workstation: [id number] [facility] Calcium.ionizedon 09-27-2024 Calcium.ionized (Bld) [Moles/Vol] 1.04 mmol/L Low 1.1-1.33 [facility] Comment on above: Result Comment: The performance characteristics of ionized calcium testedin heparinized plasma or serum have [facility].Testing on heparinized plasma or serum is not approved bythe FDA; however, such approval is not necessary. Performed By: #### 1 994-3 ####ANNETTE Foss ([id number])[facility] ([facility])[address] [place] [address] Calcium.ionized (Bld) [Moles/Vol] 1.02 mmol/L Low 1.1-1.33 [facility] Comment on above: Result Comment: The performance characteristics of ionized calcium testedin heparinized plasma or serum have [facility].Testing on [facility]ized plasma or serum [facility] FDA; however, such approval is not necessary. Performed By: #### 1 994-3 ####ANNETTE Foss ([id number])[facility] ([facility])[address] [place] [address] [place] FLUORO IMAGES NO CHARGEon 09-27-2024 FL FLUORO IMAGES NO CHARGE These images are not reportable by radiology and will not be interpreted by Radiologists. Normal [facility] Fibrinogenon 09-27-2024 Fibrinogen Coag (PPP) [Mass/Vol] 322 mg/dL Normal 200-400 [facility] Comment on above: Performed By: #### 3 255-7 ####ANNETTE Foss ([id number])[facility] ([facility])[address] [place] [address] Gas and Carbon monoxide and Electrolytes panel (BldA)on 09-27-2024 Anion gap 4 (BldA) [Moles/Vol] 11 mmo/L Normal 10-25 [facility] Comment on above: Performed By: #### 9 3685-6 ####ANNETTE Foss ([id number])[facility] ([facility])[address] [place] [address] Base excess Calc (Bld) [Moles/Vol] -0.3000 mmol/L Normal -2.0-3.0 [facility] Comment on above: Performed By: #### 9 3685-6 ####ANNETTE Foss (75745)[facility] ([facility])[address] [place] [address] Calcium.ionized (BldA) [Moles/Vol] 1.09 mmol/L Low 1.10-1.33 [facility] Comment on above: Performed By: #### 9 3685-6 ####ANNETTE Foss (05846)[facility] ([facility])[address] [place] [address] Chloride (BldA) [Moles/Vol] 105 mmol/L Normal 98-107 [facility] Comment on above: Performed By: #### 9 3685-6 ####ANNTETE Foss ([id number])[facility] ([facility])[address] [place] [address] CO2 (Bld) [Partial pressure] 37 mm Hg Low 38-42 [facility] Comment on above: Performed By: #### 9 3685-6 ####ANNETTE Foss (96273)[facility] ([facility])[address] [place] [address] Glucose [Mass/Vol] 86 mg/dL Normal 74-99 [facility] Comment on above: Performed By: #### 9 3685-6 ####ANNETTE Foss ([id number])[facility] ([facility])[address] [place] [address] HCO3 (Bld) [Moles/Vol] 24.0 mmol/L Normal 22.0-26.0 [facility] Comment on above: Performed By: #### 9 3685-6 ####ANNETTE Foss (17970)[facility] ([facility])[address] [place] [address] Hematocrit Est (Bld) [Volume fraction] 29.0 % Low 41.0-52.0 [facility] Comment on above: Performed By: #### 9 3685-6 ####ANNETTE Foss (28939)[facility] ([facility])[address] [place] [address] Hemoglobin (Bld) [Mass/Vol] 9.6 g/dL Low 13.5-17.5 [facility] Comment on above: Performed By: #### 9 3685-6 ####ANNETTE Foss (60865)[facility] ([facility])[address] [place] [address] Inhaled oxygen concentration 37 % Normal [facility] Comment on above: Performed By: #### 9 3685-6 ####ANNETTE Foss (60617)[facility] ([facility])[address] [place] [address] Lactate (BldA) [Moles/Vol] 0.9 mmol/L Normal 0.4-2.0 [facility] Comment on above: Performed By: #### 9 7635-6 ####ANNETTE Foss (35060)[facility] ([facility])[address] [place] [address] Oxygen (Bld) [Partial pressure] 64 mm Hg Low 85-95 [facility] Comment on above: Performed By: #### 9 3975-6 ####ANNETTE Foss (13360)[facility] ([facility])[address] [place] [address] Oxyhemoglobin (BldA) [Mass fraction] 92.4 % Low 94.0-98.0 [facility] Comment on above: Performed By: #### 9 0285-6 ####ANNETTE Foss (86671)[facility] ([facility])[address] [place] [address]62 pH (Bld) 7.42 [pH] Normal 7.38-7.42 [facility] Comment on above: Performed By: #### 9 9485-6 ####ANNETTE Foss (69429)[facility] ([facility])[address] [place] [address] Potassium (BldA) [Moles/Vol] 3.9 mmol/L Normal 3.5-5.3 [facility] Comment on above: Performed By: #### 9 3035-6 ####ANNETTE Foss (53826)[facility] ([facility])[address] [place] [address]65 Sodium (BldA) [Moles/Vol] 136 mmol/L Normal 136-145 [facility] Comment on above: Performed By: #### 9 3685-6 ####ANNETTE Foss (63698)[facility] ([facility])[address] [place] [address] Anion gap 4 (BldA) [Moles/Vol] 12 mmo/L Normal 10-25 [facility] Comment on above: Performed By: #### 9 3685-6 ####ANNETTE Foss (36535)[facility] ([facility])[address] [place] [address] Base excess Calc (Bld) [Moles/Vol] -5.3000 mmol/L Low -2.0-3.0 [facility] Comment on above: Performed By: #### 9 3685-6 ####ANNETTE Foss (62948)[facility] ([facility])[address] [place] [address] Calcium.ionized (BldA) [Moles/Vol] 1.06 mmol/L Low 1.10-1.33 [facility] Comment on above: Performed By: #### 9 3685-6 ####ANNETTE Foss (48397)[facility] ([facility])[address] [place] [address] Chloride (BldA) [Moles/Vol] 105 mmol/L Normal 98-107 [facility] Comment on above: Performed By: #### 9 3685-6 ####ANNETTE Foss (87672)[facility] ([facility])[address] [place] [address] CO2 (Bld) [Partial pressure] 41 mm Hg Normal 38-42 [facility] Comment on above: Performed By: #### 9 3685-6 ####ANNETTE Foss (78339)[facility] ([facility])[address] [place] [address] Glucose [Mass/Vol] 183 mg/dL High 74-99 [facility] Comment on above: Performed By: #### 9 7615-6 ####ANNETTE Foss (77443)[facility] ([facility])[address] [place] [address] HCO3 (Bld) [Moles/Vol] 20.6 mmol/L Low 22.0-26.0 [facility] Comment on above: Performed By: #### 9 1785-6 ####ANNETTE Foss (36639)[facility] ([facility])[address] [place] [address] Hematocrit Est (Bld) [Volume fraction] 26.0 % Low 41.0-52.0 [facility] Comment on above: Performed By: #### 9 9655-6 ####ANNETTE Foss ([id number])[facility] ([facility])[address] [place] [address]43 Hemoglobin (Bld) [Mass/Vol] 8.5 g/dL Low 13.5-17.5 [facility] Comment on above: Performed By: #### 9 9685-6 ####ANNETTE Foss (33682)[facility] ([facility])[address] [place] [address] 96412 Inhaled oxygen concentration 52 % Normal [facility] Comment on above: Performed By: #### 9 3685-6 ####ANNETTE Foss (39839)[facility])[address] [place] [address] 59052 Lactate (BldA) [Moles/Vol] 2.5 mmol/L High 0.4-2.0 [facility] Comment on above: Performed By: #### 9 5725-6 ####ANNETTE Foss (59167)[facility] ([facility])[address] [place] [address] 67734 Oxygen (Bld) [Partial pressure] 109 mm Hg High 85-95 [facility] Comment on above: Performed By: #### 9 07656 ####ANNETTE Foss (24211)[facility] ([facility])[address] [place] [address] Oxyhemoglobin (BldA) [Mass fraction] 96.8 % Normal 94.0-98.0 [facility] Comment on above: Performed By: #### 9 3685-6 ####ANNETTE Foss (52890)[facility] ([facility])[address] [place] [address] pH (Bld) 7.31 [pH] Low 7.38-7.42 [facility] Comment on above: Performed By: #### 9 3685-6 ####ANNETTE Foss (40429)[facility] ([facility])[address] [place] [address] Potassium (BldA) [Moles/Vol] 5.6 mmol/L High 3.5-5.3 [facility] Comment on above: Performed By: #### 9 7291-6 ####ANNETTE Foss (40128)[facility] ([facility])[address] [place] [address] 59701 Sodium (BldA) [Moles/Vol] 132 mmol/L Low 136-145 [facility] Comment on above: Performed By: #### 9 2065-6 ####ANNETTE Foss (38402)[facility] ([facility])[address] [place] [address] 79189 Anion gap 4 (BldA) [Moles/Vol] 10 mmo/L Normal 10-25 [facility] Comment on above: Performed By: #### 9 5995-6 ####ANNETTE Foss ([id number])[facility] ([facility])[address] [place] [address] Base excess Calc (Bld) [Moles/Vol] -7.1000 mmol/L Low -2.0-3.0 [facility] Comment on above: Performed By: #### 9 6525-6 ####ANNETTE Foss (86427)[facility] ([facility])[address] [place] [address] Calcium.ionized (BldA) [Moles/Vol] 1.07 mmol/L Low 1.10-1.33 [facility] Comment on above: Performed By: #### 9 3685-6 ####ANNETTE Foss ([id number])[facility] ([facility])[address] [place] [address] Chloride (BldA) [Moles/Vol] 106 mmol/L Normal 98-107 [facility] Comment on above: Performed By: #### 9 3685-6 ####ANNETTE Foss (26400)[facility] ([facility])[address] [place] [address] CO2 (Bld) [Partial pressure] 55 mm Hg High 38-42 [facility] Comment on above: Performed By: #### 9 3685-6 ####ANNETTE Foss (20271)[facility] ([facility])[address] [place] [address] 71359 Glucose [Mass/Vol] 180 mg/dL High 74-99 [facility] Comment on above: Performed By: #### 9 3685-6 ####ANNETTE Foss (59012)[facility] ([facility])[address] [place] [address] HCO3 (Bld) [Moles/Vol] 20.5 mmol/L Low 22.0-26.0 [facility] Comment on above: Performed By: #### 9 3685-6 ####ANNETTE Foss (68711)[facility] ([facility])[address] [place] [address] Hematocrit Est (Bld) [Volume fraction] 17.0 % Low 41.0-52.0 [facility] Comment on above: Performed By: #### 9 3685-6 ####ANNETTE Foss (24104)[facility] ([facility])[address] [place] [address] 47568 Hemoglobin (Bld) [Mass/Vol] 5.6 g/dL Critically low 13.5-17.5 [facility] Comment on above: Performed By: #### 9 3685-6 ####ANNETTE Foss (29856)[facility] ([facility])[address] [place] [address] Inhaled oxygen concentration 40 % Normal [facility] Comment on above: Performed By: #### 9 3685-6 ####ANNETTE Foss (05434)[facility] ([facility])[address] [place] [address] Lactate (BldA) [Moles/Vol] 2.4 mmol/L High 0.4-2.0 [facility] Comment on above: Performed By: #### 9 3965-6 ####ANNETTE Foss (91891)[facility] ([facility])[address] [place] [address] 45542 Oxygen (Bld) [Partial pressure] 127 mm Hg High 85-95 [facility] Comment on above: Performed By: #### 9 0785-6 ####ANNETTE Foss (33335)[facility] ([facility])[address] [place] [address] 66532 Oxyhemoglobin (BldA) [Mass fraction] 97.8 % Normal 94.0-98.0 [facility] Comment on above: Performed By: #### 9 0715-6 ####ANNETTE Foss (86729)[facility] ([facility])[address] [place] [address] 40869 pH (Bld) 7.18 [pH] Critically low 7.38-7.42 [facility] Comment on above: Performed By: #### 9 3685-6 ####ANNETTE Foss (22277)[facility] ([facility])[address] [place] [address] Potassium (BldA) [Moles/Vol] 5.7 mmol/L High 3.5-5.3 [facility] Comment on above: Performed By: #### 9 3685-6 ####ANNETTE Foss (37796)[facility] ([facility])[address] [place] [address] 35946 Sodium (BldA) [Moles/Vol] 131 mmol/L Low 136-145 [facility] Comment on above: Performed By: #### 9 3685-6 ####ANNETTE Foss (65466)[facility] ([facility])[address] [place] [address] Anion gap 4 (BldA) [Moles/Vol] 9 mmo/L Low 10-25 [facility] Comment on above: Performed By: #### 9 3685-6 ####ANNETTE Foss (14691)[facility] ([facility])[address] [place] [address] Base excess Calc (Bld) [Moles/Vol] -3.9000 mmol/L Low -2.0-3.0 [facility] Comment on above: Performed By: #### 9 3685-6 ####ANNETTE Foss (32536)[facility] ([facility])[address] [place] [address] 06134 Calcium.ionized (BldA) [Moles/Vol] 1.17 mmol/L Normal 1.10-1.33 [facility] Comment on above: Performed By: #### 9 3685-6 ####ANNETTE Foss (74690)[facility] ([facility])[address] [place] [address] Chloride (BldA) [Moles/Vol] 107 mmol/L Normal 98-107 [facility] Comment on above: Performed By: #### 9 3685-6 ####ANNETTE Foss (50810)[facility] ([facility])[address] [place] [address] CO2 (Bld) [Partial pressure] 34 mm Hg Low 38-42 [facility] Comment on above: Performed By: #### 9 3685-6 ####ANNETTE Foss (27093)[facility] ([facility])[address] [place] [address] Glucose [Mass/Vol] 124 mg/dL High 74-99 [facility] Comment on above: Performed By: #### 9 3685-6 ####ANNETTE Foss (56203)[facility])[address] [place] [address] HCO3 (Bld) [Moles/Vol] 20.6 mmol/L Low 22.0-26.0 [facility] Comment on above: Performed By: #### 9 3685-6 ####ANNETTE Foss (25550)[facility] ([facility])[address] [place] [address] Hematocrit Est (Bld) [Volume fraction] 27.0 % Low 41.0-52.0 [facility] Comment on above: Performed By: #### 9 3685-6 ####ANNETTE Foss ([id number])[facility] ([facility])[id number] [place] [address] Hemoglobin (Bld) [Mass/Vol] 8.9 g/dL Low 13.5-17.5 [facility] Comment on above: Performed By: #### 9 3685-6 ####ANNETTE Foss ([id number])[facility] ([facility])[id number] [place] [address] Lactate (BldA) [Moles/Vol] 1.4 mmol/L Normal 0.4-2.0 [facility] Comment on above: Performed By: #### 9 3685-6 ####ANNETTE Foss ([id number])[facility] ([facility])[id number] [place] [address] 87401 Oxygen (Bld) [Partial pressure] 131 mm Hg High 85-95 [facility] Comment on above: Performed By: #### 9 3685-6 ####ANNETTE Foss ([id number])[facility] ([facility])[id number] [place] [address] 67923 Oxyhemoglobin (BldA) [Mass fraction] 98.0 % Normal 94.0-98.0 [facility] Comment on above: Performed By: #### 9 9035-6 ####ANNETTE Foss ([id number])[facility] ([facility])[address] [place] [address] pH (Bld) 7.39 [pH] Normal 7.38-7.42 [facility] Comment on above: Performed By: #### 9 3685-6 ####ANNETTE Foss ([id number])[facility] ([facility])[address] [place] [address] Potassium (BldA) [Moles/Vol] 4.6 mmol/L Normal 3.5-5.3 [facility] Comment on above: Performed By: #### 9 3685-6 ####ANNETTE Foss ([id number])[facility] ([facility])[id number] [place] [address]80 Sodium (BldA) [Moles/Vol] 132 mmol/L Low 136-145 [facility] Comment on above: Performed By: #### 9 3685-6 ####ANNETTE Foss ([id number])[facility] ([facility])[id number] [place] [address]83 Glucose Test strip manual (B ld) [Mass/Vol]on 09-27-2024 Glucose [Mass/Vol] 105 mg/dL High 74-99 [facility] Comment on above: Performed By: #### 2 341-6 ####ANNETTE Foss ([id number])[facility] ([facility])[address] [place] [address] Glucose [Mass/Vol] 110 mg/dL High 74-99 [facility] Comment on above: Performed By: #### 2 341-6 ####ANNETTE Foss ([id number])[facility] ([facility])[id number] [place] [address] 32484 Lactateon 09-27-2024 Lactate [Moles/Vol] 3.5 mmol/L High 0.4 - 2. 0 mmol/L [facility] Lactate [Moles/Vol] 3.5 mmol/L High 0.4-2.0 [facility] Comment on above: Order Comment: The V TE Exclusion D-Dimer assay is reported in ng/mL Fibrinogen Equivalent Units (FEU). Per [employer] infrastructure consultant's instructions for use, a value of less [...] By: #### 4 8065-7 #### MARES JESUS ([id number]) [place] [facility] ([facility]) [address] [place] [address] Lactate [Moles/Vol]on 2024 Interpretation and review of laboratory results Abnormal [facility] Venipuncture immediately after or during the administration of Metamizole may lead to falsely low results. Testing should be performed immediately prior to Metamizole dosing. [facility] Magnesiumon 09-27-2024 Magnesium [Mass/Vol] 2.53 mg/dL High 1.60-2.40 [facility] Comment on above: Performed By: #### 1 9123-9 ####ANNETTE Foss ([id number])[facility] ([facility])[address] [place] [address] Magnesium [Mass/Vol] 1.74 mg/dL Normal 1.60-2.40 [facility] Comment on above: Performed By: #### 1 9123-9 ####ANNETTE Foss ([id number])[facility] ([facility])[address] [place] [address] Natriuretic peptide B [Mass/ Vol]on 09-27-2024 Interpretation and review of laboratory results Normal [facility] Natriuretic peptide B (Bld) [Mass/Vol] 44 pg/mL 0 - 99 pg/mL [facility] <100 pg/mL - Heart failure unlikely 100-299 pg/mL - Intermediate probability of acute heart failure exacerbation. Correlate with clinical context and patient history. >=300 pg/mL - Heart Failure likely. Correlate with clinical context and patient history. BNP testing is performed using different testing methodology at [facility] than at other [facility] hospitals. Direct result comparisons should only be made within the same method. [facility] No Panel Informationon 09-27 1. No evidence [...] critical finding by EPIC secure chat with MATTHEW AHN on 09/27/2024 at 12:59 am. (-RCF-) Findings: See findings. Signed by: Pavel Blum 09/27/2024 1:06 AM Dictation workstation: [id number] [id number] Interpreted By: Pavel Blum, STUDY: CT ANGIO CHEST FOR PULMONARY EMBOLISM; CT ABDOMEN PELVIS W IV CONTRAST; 09/27/2024 12:36 am INDICATION: Signs/Symptoms:SOB, elevated D-dimer; Signs/Symptoms:Lower abdominal pain. COMPARISON: Chest CT 03/17/2023. ACCESSION NUMBER(S): [id number]; [id number] ORDERING CLINICIAN: MATTHEW AHN TECHNIQUE: Helical data acquisition of the [...] There are moderate aortic valve atherosclerotic calcifications. Gnsf-cw-[id number] coronary artery calcifications are seen.The study is [...] of T12 and T11 vertebral bodies, unchanged. [facility] Work Phone: Interpretation and review of laboratory results Abnormal [facility] Radiology Study observation (narrative) [facility] Work Phone: PT and aPTT panel Coag (PPP) on 09-27-2024 aPTT Coag (PPP) [Time] 27 s Normal 26-36 Un [facility] Comment on above: Order Comment: The A PTT is no longer used for monitoring Unfractionated Heparin Therapy. For monitoring Heparin Therapy, use the Heparin Assay. Performed By: #### 3 4529-8 ####ANNETTE Foss ([id number])[facility] ([facility])[address] [place] [address] INR Coag (PPP) [Relative time] 1.6 High 0.9-1.1 [facility] Comment on above: Order Comment: The A PTT is no longer used for monitoring Unfractionated Heparin Therapy. For monitoring Heparin Therapy, use the Heparin Assay. Performed By: #### 3 4529-8 ####ANNETTE Foss ([id number])[facility] ([facility])[address] [facility] [place] [address] PT Coag (PPP) [Time] 17.4 s High 9.8-12.4 [facility] Comment on above: Order Comment: The A PTT is no longer used for monitoring Unfractionated Heparin Therapy. For monitoring Heparin Therapy, use the Heparin Assay. Performed By: #### 3 4529-8 ####ANNETTE Foss ([id number])[facility] ([facility])[address] [place] [address] aPTT Coag (PPP) [Time] 28 s Normal 26-36 [facility] Comment on above: Order Comment: The A PTT is no longer used for monitoring Unfractionated Heparin Therapy. For monitoring Heparin Therapy, use the Heparin Assay. Performed By: #### 3 4529-8 ####ANNETTE Foss ([id number])[facility] ([facility])[address] [facility] [place] [address] INR Coag (PPP) [Relative time] 1.8 High 0.9-1.1 [facility] Comment on above: Order Comment: The A PTT is no longer used for monitoring Unfractionated Heparin Therapy. For monitoring Heparin Therapy, use the Heparin Assay. Performed By: #### 3 4529-8 ####ANNETTE RAMSEYTZER L ([id number])[facility] ([facility])[address] [facility] [place] [address] PT Coag (PPP) [Time] 20.3 s High 9.8-12.4 [facility] Comment on above: Order Comment: The A PTT is no longer used for monitoring Unfractionated Heparin Therapy. For monitoring Heparin Therapy, use the Heparin Assay. Performed By: #### 3 4529-8 ####ANNETTE Foss ([id number])[facility] ([facility])[address] [place] [address] Renal function 2000 panelon 09-27-2024 Albumin BCP dye [Mass/Vol] 3.4 g/dL Normal 3.4-5.0 [facility] Comment on above: Performed By: #### 2 4362-6 ####ANNETTE Foss ([id number])[facility] ([facility])[address] [place] [address] Anion gap [Moles/Vol] 14 mmol/L Normal 10-20 [facility] Comment on above: Performed By: #### 2 4362-6 ####ANNETTE Foss ([id number])[facility] ([facility])[address] [place] [address] Calcium [Mass/Vol] 8.0 mg/dL Low 8.6-10.6 [facility] Comment on above: Performed By: #### 2 4362-6 ####ANNETTE Foss ([id number])[facility] ([facility])[address] [place] [address] Chloride [Moles/Vol] 103 mmol/L Normal 98-107 [facility] Comment on above: Performed By: #### 2 4362-6 ####ANNETTE Foss ([id number])[facility] ([facility])[address] [place] [address] CO2 [Moles/Vol] 25 mmol/L Normal 21-32 [facility] Comment on above: Performed By: #### 2 4362-6 ####ANNETTE Foss ([id number])[facility] ([facility])[address] [place] [address] Creatinine [Mass/Vol] 1.32 mg/dL High 0.50-1.30 [facility] Comment on above: Performed By: #### 2 4362-6 ####ANNETTE Foss ([id number])[facility] ([facility])[address] [place] [address] Glomerular filtration rate 56 mL/min/1.73m*2 Low >60 [facility] Comment on above: Result Comment: Calc ulations of estimated GFR are performed using the 2020 CKD-EPI Study Refit equation without the race variable for the IDMS-Traceable creatinine methods.https://jasn.asnjournals.org/content/early/ ASN.4402783722 Performed By: #### 2 4362-6 ####ANNETTE Foss ([id number])[facility] ([facility])[address] [place] [address] Glucose [Mass/Vol] 90 mg/dL Normal 74-99 [facility] Comment on above: Performed By: #### 2 4362-6 ####ANNETTE Foss ([id number])[facility] ([facility])[address] [place] [address] Phosphate [Mass/Vol] 2.8 mg/dL Normal 2.5-4.9 [facility] Comment on above: Performed By: #### 2 4362-6 ####ANNETTE GARCIA L ([id number])[facility] ([facility])[address] [place] [address] Potassium [Moles/Vol] 3.9 mmol/L Normal 3.5-5.3 [facility] Comment on above: Performed By: #### 2 4362-6 ####ANNETTE GARCIA L ([id number])[facility] ([facility])[address] [place] [address] Sodium [Moles/Vol] 138 mmol/L Normal 136-145 [facility] Comment on above: Performed By: #### 2 4362-6 ####ANNETTE GARCIA L ([id number])[facility] ([facility])[address] [place] [address] Urea nitrogen [Mass/Vol] 24 mg/dL High 6-23 [facility] Comment on above: Performed By: #### 2 4362-6 ####ANNETTE Foss ([id number])[facility] ([facility])[address] [place] [address] Albumin BCP dye [Mass/Vol] 2.6 g/dL Low 3.4-5.0 [facility] Comment on above: Performed By: #### 2 4362-6 ####ANNETTE Foss ([id number])[facility] ([facility])[address] [place] [address] Anion gap [Moles/Vol] 13 mmol/L Normal 10-20 [facility] Comment on above: Performed By: #### 2 4362-6 ####ANNETTE Foss ([id number])[facility] ([facility])[address] [place] [address] Calcium [Mass/Vol] 7.3 mg/dL Low 8.6-10.6 [facility] Comment on above: Performed By: #### 2 4362-6 ####ANNETTE GARCIA L ([id number])[facility] ([facility])[address] [place] [address] Chloride [Moles/Vol] 105 mmol/L Normal 98-107 [facility] Comment on above: Performed By: #### 2 4362-6 ####ANNETTE GARCIA L ([id number])[facility] ([facility])[address] [place] [address] CO2 [Moles/Vol] 22 mmol/L Normal 21-32 [facility] Comment on above: Performed By: #### 2 4362-6 ####ANNETTE GARCIA L ([id number])[facility] ([facility])[address] [place] [address] Creatinine [Mass/Vol] 1.49 mg/dL High 0.50-1.30 [facility] Comment on above: Performed By: #### 2 4362-6 ####ANNETTE GARCIA L ([id number])[facility] ([facility])[address] [place] [address] Glomerular filtration rate 49 mL/min/1.73m*[address] Low >60 [facility] Comment on above: Result Comment: Calc ulations of estimated GFR are performed using the 2020 CKD-EPI Study Refit equation without the race variable for the IDMS-Traceable creatinine methods.https://jasn.asnjournals.org/content// ASN.8157773234 Performed By: #### 2 4362-6 ####ANNETTE Foss ([id number])[facility] ([facility])[address] [place] [address] Glucose [Mass/Vol] 173 mg/dL High 74-99 [facility] Comment on above: Performed By: #### 2 4362-6 ####ANNETTE Foss ([id number])[facility] ([facility])[address] [place] [address] Phosphate [Mass/Vol] 5.0 mg/dL High 2.5-4.9 [facility] Comment on above: Performed By: #### 2 4362-6 ####ANNETTE Foss ([id number])[facility] ([facility])[address] [place] [address] Potassium [Moles/Vol] 5.3 mmol/L Normal 3.5-5.3 [facility] Comment on above: Performed By: #### 2 4362-6 ####ANNETTE GARCIA L ([id number])[facility] ([facility])[address] [place] [address] Sodium [Moles/Vol] 135 mmol/L Low 136-145 [facility] Comment on above: Performed By: #### 2 4362-6 ####ANNETTE Foss ([id number])[facility] ([facility])[address] [place] [address] Urea nitrogen [Mass/Vol] 25 mg/dL High 6-23 [facility] Comment on above: Performed By: #### 2 4362-6 ####ANNETTE GARCIA L ([id number])[facility] ([facility])[address] [place] [address] TRANSTHORACIC ECHO (TTE) COM PLETEon 09-27-2024 TRANSTHORACIC ECHO (TTE) COMPLETE Normal [facility] Tropinin I.cardiac panel Hig h sensitivity methodon 09-27-2024 Interpretation and review of laboratory results Normal [facility] Less than 99th percentile of normal range [...] performed using a different testing methodology at [facility] than at other [facility]. Direct result comparisons should only be made within the same method. [facility] Interpretation and review of laboratory results Normal [facility] Less than 99th percentile of normal range [...] performed using a different testing methodology at [facility] than at other [facility]. Direct result comparisons should only be made within the same method. [facility] Troponin I, High Sensitivity , Initialon 09-27-2024 Tropinin I.cardiac panel High sensitivity method 12 ng/L 0 - 20 ng/L [facility] Troponin I.cardiac panelon 0 09-27-2024 Tropinin I.cardiac panel High sensitivity method 11 ng/L Normal 0-20 [facility] Comment on above: Order Comment: The V TE Exclusion D-Dimer assay is reported in ng/mL Fibrinogen Equivalent Units (FEU). Per microsoft infrastructure consultant's instructions for use, a value of less [...] By: #### 4 8065-7 #### MARES JESUS ([id number]) [facility] ([facility]) [address] [place] [address] Troponin, High Sensitivity, 1 Houron 09-27-2024 Tropinin I.cardiac panel High sensitivity method 11 ng/L 0 - 20 ng/L [facility] Urinalysis complete W Reflex Culture panel (U)on 09-27-2024 Appearance (U) Turbid Abnormal Clear [facility] Bilirubin (U) [Mass/Vol] Negative NEGATIVE mg/dL [facility] Color (U) Yellow Light-Yellow, Yellow, Dark-Yellow [facility] Glucose Auto test strip (U) [Mass/Vol] Normal Normal mg/dL [facility] Ketones (U) [Mass/Vol] Negative NEGAT SEUN mg/dL [facility] Leukocyte esterase Auto test strip Ql (U) 25 Willow/uL Abnormal NEGATIVE [facility] Nitrite Auto test strip Ql (U) Negative NEGATIVE [facility] pH (U) 6.0 [pH] 5.0, 5.5, 6.0, 6.5, 7.0, 7.5, 8.0 [facility] Protein (U) [Mass/Vol] 10 (TRACE) NEGAT SEUN, 10 (TRACE), 20 (TRACE) mg/dL [facility] RBC (U) [#/Vol] Negative NEGATIVE mg/dL [facility] Specific gravity (U) [Rel density] 1.025 1.005 - 1.035 [facility] Urobilinogen (U) [Mass/Vol] Normal Normal mg/dL [facility] Appearance (U) Turbid Normal Clear [facility] Comment on above: Performed By: #### 5 8077-9 #### VISHNU LEE ([id number]) [facility] ([facility]) [address] [place] [address] Bilirubin (U) [Mass/Vol] Negative Normal NEGATIVE [facility] Comment on above: Performed By: #### 5 8077-9 #### VISHNU LEE ([id number]) [facility] ([facility]) [address] [place] [address] Color (U) Yellow Normal Light-Yellow, Yellow, Dark-Yellow [facility] Comment on above: Performed By: #### 5 8077-9 #### VISHNU LEE ([id number]) [facility] ([facility]) [address] [place] [address] Glucose Auto test strip (U) [Mass/Vol] Normal Normal Normal [facility] Comment on above: Performed By: #### 5 8077-9 #### VISHNU LEE ([id number]) [facility] ([facility]) [address] [place] [address] Ketones (U) [Mass/Vol] Negative Normal NEGATIVE [facility] Comment on above: Performed By: #### 5 8077-9 #### VISHNU LEE ([id number]) [facility] ([facility]) [address] [place] [address] Leukocyte esterase Auto test strip Ql (U) 25 Willow/uL Abnormal NEGATIVE [facility] Comment on above: Performed By: #### 5 8077-9 #### VISHNU LEE ([id number]) [facility] ([facility]) [address] [place], [place] [address] Nitrite Auto test strip Ql (U) Negative Normal NEGATIVE [facility] Comment on above: Performed By: #### 5 8077-9 #### VISHNU LEE ([id number]) [facility] ([facility]) [address] [place] [address] pH (U) 6.0 [pH] Normal 5.0, 5.5, 6.0, 6.5, 7.0, 7.5, 8.0 [facility] Comment on above: Performed By: #### 5 8077-9 #### VISHNU LEE ([id number]) [facility] ([facility]) [address] [place] [address] Protein (U) [Mass/Vol] 10 (TRACE) Normal NEGAT SEUN, 10 (TRACE), 20 (TRACE) [facility] Comment on above: Performed By: #### 5 8077-9 #### VISHNU LEE ([id number]) [facility] ([facility]) [address] [place] [address] RBC (U) [#/Vol] Negative Normal NEGATIVE [facility] Comment on above: Performed By: #### 5 8077-9 #### VISHNU LEE ([id number]) [facility] ([facility]) [address] [place] [address] Specific gravity (U) [Rel density] 1.025 Normal 1.005-1.035 [facility] Comment on above: Performed By: #### 5 8077-9 #### VISHNU LEE ([id number]) [facility] ([facility]) [address] [place] [address] Urobilinogen (U) [Mass/Vol] Normal Normal Normal [facility] Comment on above: Performed By: #### 5 8077-9 #### VISHNU LEE ([id number]) [facility] ([facility]) [address] [place] [address] Urinalysis microscopic panel Auto Ql (U)on 09-27-2024 Bacteria Auto (Urine sed) [#/Area] 1+ Abnormal NONE SEEN /HPF [facility] Crystals.amorphous Computer assisted (U) [#/Area] 1+ NONE, 1+, 2+ /HPF [facility] Hyaline casts Auto (Urine sed) [#/Area] OCCASIONAL Abnormal NONE /LPF [facility] Mucus Auto (Urine sed) [#/Area] FEW Reference range not established. /LPF [facility] RBC Auto (Urine sed) [#/Area] NONE NONE, 1-2, 3-5 /HPF [facility] WBC Auto (Urine sed) [#/Area] 1-5 1-5, NONE /HPF [facility] Bacteria Auto (Urine sed) [#/Area] 1+ /HPF Abnormal NONE SEEN [facility] Comment on above: Performed By: #### 4 8065-7 #### VISHNU LEE ([id number]) [facility] ([facility]) [address] [place] [address] Crystals.amorphous Computer assisted (U) [#/Area] 1+ /HPF Normal NONE, 1+, 2+ [facility] Comment on above: Performed By: #### 4 8065-7 #### VISHNU LEE ([id number]) [facility] ([facility]) [address] [place] [address] Hyaline casts Auto (Urine sed) [#/Area] OCCASIONAL Abnormal NONE [facility] Comment on above: Performed By: #### 4 8065-7 #### VISHNU LEE ([id number]) [facility] ([facility]) [address] [place] [address] Mucus Auto (Urine sed) [#/Area] FEW Normal Reference range not established. [facility] Comment on above: Performed By: #### 4 8065-7 #### VISHNU LEE ([id number]) [facility] ([facility]) [address] [place] [address] RBC Auto (Urine sed) [#/Area] NONE Normal NONE, 1-2, 3-5 [facility] Comment on above: Performed By: #### 4 8065-7 #### VISHNU LEE ([id number]) [facility] ([facility]) [address] [place] [address] WBC Auto (Urine sed) [#/Area] 1-5 Normal 1-5, NONE [facility] Comment on above: Performed By: #### 4 8065-7 #### VISHNU LEE ([id number]) [facility] ([facility]) [address] [place] [address] VERAB/VERIFY ABORHon -28-2 025 ABO group Nom (Bld) A [facility] Comment on above: Performed By: #### V ERAB ####ANNETTE Foss ([id number])[facility] ([facility])[address] [place] [address] D Ag Ql (Bld) Positive [facility] Comment on above: Performed By: #### V ERAB ####ANNETTE YEBOAHMOTZER L ([id number])[facility] ([facility])[address] [place] [address] ABO group Nom (Bld) A [facility] Comment on above: Order Comment: The V TE Exclusion D-Dimer assay is reported in ng/mL Fibrinogen Equivalent Units (FEU). Per microsoft infrastructure consultant's instructions for use, a value of less [...] By: #### 4 8065-7 #### VISHNU LEE ([id number]) [facility] ([facility]) [address] [place] [id number] D Ag Ql (Bld) Positive [facility] Comment on above: Order Comment: The V TE Exclusion D-Dimer assay is reported in ng/mL Fibrinogen Equivalent Units (FEU). Per microsoft infrastructure consultant's instructions for use, a value of less [...] By: #### 4 8065-7 #### MARES JESUS ([id number]) [facility] ([facility]) [address] [place] [address] VERIFY ABO/Rh Group Teston 0 09-27-2024 ABO group Nom (Bld) A [facility] D Ag Ql (Bld) Positive [facility] XR ABDOMEN 1 VIEWon 09-28-19 XR ABDOMEN 1 VIEW Normal [facility] XR Chest Single viewon 09-27 1. No evidence of acute cardiopulmonary process. Signed by: Pavel Blum 09/27/2024 12:10 AM Dictation workstation: HeTexted MMODAL Interpreted By: Pavel Blum, STUDY: XR CHEST 1 VIEW; 09/26/2024 11:26 pm INDICATION: Signs/Symptoms:SOB. COMPARISON: Chest radiograph 03/17/2023. ACCESSION NUMBER(S): [id number] ORDERING CLINICIAN: MATTHEW AHN FINDINGS: CARDIOMEDIASTINAL SILHOUETTE: Cardiomediastinal silhouette is [...] Signs/Symptoms:SOB. COMPARISON: Chest radiograph 03/17/2023. ACCESSION NUMBER(S): [id number] ORDERING CLINICIAN: MATTHEW AHN FINDINGS: CARDIOMEDIASTINAL SILHOUETTE: Cardiomediastinal silhouette is normal in size and configuration. LUNGS/PLEURA: Unchanged calcified granuloma in the right upper lobe. There are no consolidations.There are no pleural effusions. There is no demonstrated pneumothorax. BONES: No evidence of acute osseous abnormality. IMPRESSION: 1. No evidence of acute cardiopulmonary process. Signed by: Pavel Blum 09/27/2024 12:10 AM Dictation workstation: HeTexted [facility] Work Phone: XR Chest Single viewOrdered By: Pavel Blum on 09-27-2024 [facility] Work Phone: CBC W Auto Differential pane l (Bld)on 09-26-2024 Basophils (Bld) [#/Vol] 0.04 10*3/uL [facility] Basophils/100 WBC (Bld) 0.3 % 0.0 - 2.0 % [facility] Eosinophils (Bld) [#/Vol] 0.07 10*3/uL [facility] Eosinophils/100 WBC (Bld) 0.5 % 0.0 - 6.0 % [facility] Erythrocyte distribution width (RBC) [Ratio] 13.3 % 11.5 - 14.5 % [facility] Hematocrit (Bld) [Volume fraction] 37.5 % Low 41.0 - 52.0 % [facility] Hemoglobin (Bld) [Mass/Vol] 11.7 g/dL Low 13.5 - 17.5 g/dL [facility] Immature granulocytes (Bld) [#/Vol] 0.16 10*3/uL [facility] Immature granulocytes/100 WBC (Bld) 1.1 % High 0.0 - 0.9 % [facility] Comment on above: Immature Granulocyte Count (IG) includes promyelocytes, myelocytes and metamyelocytes but does not include bands. Percent differential counts (%) should be interpreted in the context of the absolute cell counts (cells/UL). Interpretation and review of laboratory results Abnormal [facility] Lymphocytes (Bld) [#/Vol] 1.24 10*3/uL [facility] Lymphocytes/100 WBC (Bld) 8.2 % 13.0 - 44.0 % [facility] MCH (RBC) [Entitic mass] 29.6 pg 26.0 - 34.0 pg [facility] MCHC (RBC) [Mass/Vol] 31.2 g/dL Low 32.0 - 36.0 g/dL [facility] MCV (RBC) [Entitic vol] 95 fL 80 - 100 fL [facility] Monocytes (Bld) [#/Vol] 1.44 10*3/uL High [facility] Monocytes/100 WBC (Bld) 9.5 % 2.0 - 10.0 % [facility] [facility] Neutrophils (Bld) [#/Vol] 12.18 10*3/uL [facility] Comment on above: Percent differential counts (%) should be interpreted in the context of the absolute cell counts (cells/uL). Neutrophils/100 WBC (Bld) 80.4 % 40.0 - 80.0 % [facility] Nucleated RBC/100 WBC (Bld) [Ratio] 0.0 % [facility] Platelets (Bld) [#/Vol] 290 10*3/uL [facility] RBC (Bld) [#/Vol] 3.95 10*6/uL Low [facility] WBC (Bld) [#/Vol] 15.1 10*3/uL [facility] Basophils (Bld) [#/Vol] 0.04 x10*3/uL Normal 0.00-0.10 [facility] Comment on above: Performed By: #### 5 7021-8 #### VISHNU LEE ([id number]) [facility] ([facility]) [facility] [place] [address] Basophils/100 WBC (Bld) 0.3 % Normal 0.0-2.0 [facility] Comment on above: Performed By: #### 5 7021-8 #### VISHNU LEE ([id number]) [facility] ([facility]) [facility] [place] [address] Eosinophils (Bld) [#/Vol] 0.07 x10*3/uL Normal 0.00-0.40 [facility] Comment on above: Performed By: #### 5 7021-8 #### VISHNU LEE ([id number]) [facility] ([facility]) [address] [place] [address] Eosinophils/100 WBC (Bld) 0.5 % Normal 0.0-6.0 [facility] Comment on above: Performed By: #### 5 7021-8 #### VISHNU LEE ([id number]) [facility] ([facility]) [address] [place] [address] Erythrocyte distribution width (RBC) [Ratio] 13.3 % Normal 11.5-14.5 [facility] Comment on above: Performed By: #### 5 7021-8 #### VISHNU LEE ([id number]) [facility] ([facility]) [address] [place] [address] Hematocrit (Bld) [Volume fraction] 37.5 % Low 41.0-52.0 [facility] Comment on above: Performed By: #### 5 7021-8 #### VISHNU LEE ([id number]) [facility] ([facility]) [address] [place] [address] Hemoglobin (Bld) [Mass/Vol] 11.7 g/dL Low 13.5-17.5 [facility] Comment on above: Performed By: #### 5 7021-8 #### VISHNU LEE ([id number]) [facility] ([facility]) [address] [place] [address] Immature granulocytes (Bld) [#/Vol] 0.16 x10*3/uL Normal 0.00-0.50 [facility] Comment on above: Performed By: #### 5 7021-8 #### VISHNU LEE ([id number]) [facility] ([facility]) [address] [place] [address] Immature granulocytes/100 WBC (Bld) 1.1 % High 0.0-0.9 [facility] Comment on above: Result Comment: Cynthia ture Granulocyte Count (IG) includes promyelocytes, myelocytes and metamyelocytes but does not include bands. Percent differential counts (%) should be interpreted in the context of the absolute cell counts (cells/UL). Performed By: #### 5 7021-8 #### VISHNU LEE ([id number]) [facility] ([facility]) [address] [place] [address] Lymphocytes (Bld) [#/Vol] 1.24 x10*3/uL Normal 0.80-3.00 [facility] Comment on above: Performed By: #### 5 7021-8 #### VISHNU LEE ([id number]) [facility] ([facility]) [address] [place] [address]55[address] Lymphocytes/100 WBC (Bld) 8.2 % Normal 13.0-44.0 [facility] Comment on above: Performed By: #### 5 7021-8 #### VISHNU LEE ([id number]) [facility] ([facility]) [address] [place] [address] 73160 MCH (RBC) [Entitic mass] 29.6 pg Normal 26.0-34.0 [facility] Comment on above: Performed By: #### 5 7021-8 #### VISHNU LEE ([id number]) [facility] ([facility]) [address] [place] [address] 16346 MCHC (RBC) [Mass/Vol] 31.2 g/dL Low 32.0-36.0 [facility] Comment on above: Performed By: #### 5 7021-8 #### VISHNU LEE ([id number]) [facility] ([facility]) [address] [place] [address] 64181 MCV (RBC) [Entitic vol] 95 fL Normal 80-100 [facility] Comment on above: Performed By: #### 5 7021-8 #### VISHNU LEE ([id number]) [facility] ([facility]) [address] [place] [address] 27194 Monocytes (Bld) [#/Vol] 1.44 x10*3/uL High 0.05-0.80 [facility] Comment on above: Performed By: #### 5 7021-8 #### VISHNU LEE ([id number]) [facility] ([facility]) [address] [place] [address] 53965 Monocytes/100 WBC (Bld) 9.5 % Normal 2.0-10.0 [facility] Comment on above: Performed By: #### 5 7021-8 #### VISHNU LEE ([id number]) [facility] ([facility]) [address] [place] [address] 14308 Neutrophils (Bld) [#/Vol] 12.18 x10*3/uL High 1.60-5.50 [facility] Comment on above: Result Comment: Perc ent differential counts (%) should be interpreted in the context of the absolute cell counts (cells/uL). Performed By: #### 5 7021-8 #### VISHNU LEE ([id number]) [facility] ([facility]) [address] [place] [address] 26483 Neutrophils/100 WBC (Bld) 80.4 % Normal 40.0-80.0 [facility] Comment on above: Performed By: #### 5 7021-8 #### VISHNU LEE ([id number]) [facility] ([facility]) [address] [place] [address] 47834 Nucleated RBC/100 WBC (Bld) [Ratio] 0.0 /100 WBCs Normal 0.0-0.0 [facility] Comment on above: Performed By: #### 5 7021-8 #### VISHNU LEE ([id number]) [facility] ([facility]) [address] [place] [address] 14708 Platelets (Bld) [#/Vol] 290 x10*3/uL Normal 150-450 [facility] Comment on above: Performed By: #### 5 7021-8 #### VISHNU LEE ([id number]) [facility] ([facility]) [address] [place] [address] 60822 RBC (Bld) [#/Vol] 3.95 x10*6/uL Low 4.50-5.90 [facility] Comment on above: Performed By: #### 5 7021-8 #### VISHNU LEE ([id number]) [facility] ([facility]) [address] [place] [address] 33975 WBC (Bld) [#/Vol] 15.1 x10*3/uL High 4.4-11.3 [facility] Comment on above: Performed By: #### 5 7021-8 #### VISHNU LEE ([id number]) [facility] ([facility]) [address] [place] [id number] Comprehensive metabolic 2000 panelon 09-26-2024 Albumin BCP dye [Mass/Vol] 3.5 g/dL 3.4 - 5.0 g/dL [facility] ALP [Catalytic activity/Vol] 68 U/L 33 - 136 U/L [facility] ALT With P-5'-P [Catalytic activity/Vol] 7 U/L Low 10 - 52 U/L [facility] Comment on above: Patients treated wit h Sulfasalazine may generate falsely decreased results for ALT. Anion gap [Moles/Vol] 16 mmol/L 10 - 2 0 mmol/L [facility] AST With P-5'-P [Catalytic activity/Vol] 11 U/L 9 - 39 U/L [facility] Bilirubin [Mass/Vol] 0.9 mg/dL 0.0 - 1 .2 mg/dL [facility] Calcium [Mass/Vol] 8.7 mg/dL 8.6 - 10. 3 mg/dL [facility] Chloride [Moles/Vol] 102 mmol/L 98 - 10 7 mmol/L [facility] CO2 [Moles/Vol] 22 mmol/L 21 - 32 mmol/L [facility] Creatinine [Mass/Vol] 1.39 mg/dL High 0.50 - 1.30 mg/dL [facility] GFR/1.73 sq M.predicted among non-blacks MDRD (S/P/Bld) [Vol rate/Area] 53 mL/min/{1.73_m2} Low - PINF [facility] Comment on above: Calculations of etelvina mated GFR are performed using the 2020 CKD-EPI Study Refit equation without the race variable for the IDMS-Traceable creatinine methods. https://jasn.asnjournals.org/content//ASN.2020 553812 Glucose [Mass/Vol] 173 mg/dL High 74 - 99 mg/dL [facility] Potassium [Moles/Vol] 4.5 mmol/L 3.5 - 5.3 mmol/L [facility] Protein [Mass/Vol] 6.0 g/dL Low 6.4 - 8.2 g/dL [facility] Sodium [Moles/Vol] 135 mmol/L Low 136 - 145 mmol/L [facility] Urea nitrogen [Mass/Vol] 22 mg/dL 6 - 23 mg/dL [facility] Albumin BCP dye [Mass/Vol] 3.5 g/dL Normal 3.4-5.0 [facility] Comment on above: Performed By: #### 2 4323-8 #### VISHNU LEE ([id number]) [facility] ([facility]) [address] [place] [address] ALP [Catalytic activity/Vol] 68 U/L Normal 33-136 [facility] Comment on above: Performed By: #### 2 432-8 #### VISHNU LEE ([id number]) [facility] ([facility]) [address] [place] [address] 64615 ALT With P-5'-P [Catalytic activity/Vol] 7 U/L Low 10-52 [facility] Comment on above: Result Comment: Jaqueline ents treated with Sulfasalazine may generate falsely decreased results for ALT. Performed By: #### 2 432-8 #### VISHNU LEE ([id number]) [facility] ([facility]) [address] [place], [place] [id number] Anion gap [Moles/Vol] 16 mmol/L Normal 10-20 [facility] Comment on above: Performed By: #### 2 4323-8 #### VISHNU LEE ([id number]) [facility] ([facility]) [address] [place] [address] 64293 AST With P-5'-P [Catalytic activity/Vol] 11 U/L Normal 9-39 [facility] Comment on above: Performed By: #### 2 4323-8 #### VISHNU LEE ([id number]) [facility] ([facility]) [address] [place] [address] 99567 Bilirubin [Mass/Vol] 0.9 mg/dL Normal 0.0-1.2 [facility] Comment on above: Performed By: #### 2 432-8 #### VISHNU LEE ([id number]) [facility] ([facility]) [address] [place] [address] Calcium [Mass/Vol] 8.7 mg/dL Normal 8.6-10.[address] [facility] Comment on above: Performed By: #### 2 4323-8 #### VISHNU LEE ([id number]) [facility] ([facility]) [address] [place] [address] Chloride [Moles/Vol] 102 mmol/L Normal 98-107 [facility] Comment on above: Performed By: #### 2 432-8 #### VISHNU LEE ([id number]) [facility] ([facility]) [address] [place] [address] 28689 CO2 [Moles/Vol] 22 mmol/L Normal 21-32 [facility] Comment on above: Performed By: #### 2 432-8 #### VISHNU LEE ([id number]) [facility] ([facility]) [address] [place] [address] 23679 Creatinine [Mass/Vol] 1.39 mg/dL High 0.50-1.30 [facility] Comment on above: Performed By: #### 2 4323-8 #### VISHNU LEE ([id number]) [facility] ([facility]) [facility] [place] [address] Glomerular filtration rate 53 mL/min/1.73m*2 Low >60 [facility] Comment on above: Result Comment: Calc ulations of estimated GFR are performed using the 2020 CKD-EPI Study Refit equation without the race variable for the IDMS-Traceable creatinine methods. https://jasn.asnjournals.org/content/early/ASN.2020 914161 Performed By: #### 2 4323-8 #### VISHNU LEE ([id number]) [facility] ([facility]) [facility] [place] [address] Glucose [Mass/Vol] 173 mg/dL High 74-[address] [facility] Comment on above: Performed By: #### 2 4323-8 #### VISHNU LEE ([id number]) [facility] ([facility]) [address] [place] [address] Potassium [Moles/Vol] 4.5 mmol/L Normal 3.5-5.3 [facility] Comment on above: Performed By: #### 2 4323-8 #### VISHNU LEE ([id number]) [facility] ([facility]) [address] [place] [address] 93744 Protein [Mass/Vol] 6.0 g/dL Low 6.4-8.[address] [facility] Comment on above: Performed By: #### 2 4323-8 #### VISHNU LEE ([id number]) [facility] ([facility]) [address] [place] [address] 63003 Sodium [Moles/Vol] 135 mmol/L Low 136-[address] [facility] Comment on above: Performed By: #### 2 4323-8 #### VISHNU LEE ([id number]) [facility] ([facility]) [facility] [place] [address] Urea nitrogen [Mass/Vol] 22 mg/dL Normal 6-23 [facility] Comment on above: Performed By: #### 2 4323-8 #### VISHNU LEE ([id number]) [facility] ([facility]) [address] [place] [address] 34161 D-Dimer, VTE Exclusionon Fibrin D-dimer FEU (PPP) [Mass/Vol] 6938 High [facility] ECG 12-LEADon 09-26-2024 ECG 12-LEAD Ventricular Rate 104 Atrial Rate 104 P-R Interval 164 QRS Duration 96 Q-T Interval 320 QTC Calculation(Bazett) 420 P Gladstone 70 R Gladstone 32 T Gladstone 84 QRS Count 18 Q Onset 224 P Onset 142 P Offset 195 T Offset 384 QTC Fredericia 384 Diagnosis Sinus tachycardia Otherwise normal ECG When compared with ECG of 23-SEP-2024 15:52, QRS axis Shifted right Nonspecific T wave abnormality, improved in Anterolateral leads See ED provider note for full interpretation and clinical correlation Confirmed by Talia Causey ([id number]) on 09/27/2024 10:42:30 AM Normal [facility] Fibrin D-dimeron 09-26-2024 Fibrin D-dimer FEU (PPP) [Mass/Vol] 6938 ng/mL FEU High <=500 [facility] Comment on above: Order Comment: The V TE Exclusion D-Dimer assay is reported in ng/mL Fibrinogen Equivalent Units (FEU). Per microsoft infrastructure consultant's instructions for use, a value of less [...] By: #### 4 8065-7 #### MARES JESUS ([id number]) [facility] ([facility]) [address] [place] [address] Fibrin D-dimer FEU (PPP) [Ma ss/Vol]on 09-26-2024 Interpretation and review of laboratory results Abnormal [facility] The VTE Exclusion D-Dimer assay is reported in ng/mL Fibrinogen Equivalent Units (FEU). Per microsoft infrastructure consultant's instructions for use, a value of less [...] assessment model for DVT or PE exclusion.) [facility] Lactateon 09-26-2024 Lactate [Moles/Vol] 3.4 mmol/L High 0.4 - 2. 0 mmol/L [facility] Lactate [Moles/Vol] 3.4 mmol/L High 0.4-2.0 [facility] Comment on above: Order Comment: Venip uncture immediately after or during the administration of Metamizole may lead to falsely low results. Testing should be performed immediately prior to Metamizole dosing. Performed By: #### 2 524-7 #### VISHNU LEE ([id number]) [facility] ([facility]) [address] [place] [address] 12833 Lactate [Moles/Vol]on 2024 Venipuncture immediately after or during the administration of Metamizole may lead to falsely low results. Testing should be performed immediately prior to Metamizole dosing. [facility] Lipaseon 09-26-2024 Lipase [Catalytic activity/Vol] 16 U/L 9 - 82 U/L [facility] Lipase [Catalytic activity/V ol]on 09-26-2024 Venipuncture immediately after or during the administration of Metamizole may lead to falsely low results. Testing should be performed immediately prior to Metamizole dosing. [facility] Magnesiumon 09-26-2024 Magnesium [Mass/Vol] 1.98 mg/dL 1.60 - 2.40 mg/dL [facility] Magnesium [Mass/Vol] 1.98 mg/dL Normal 1.60-2.40 [facility] Comment on above: Performed By: #### 1 9123-9 #### VISHNU LEE ([id number]) [facility] ([facility]) [address] [place], [place] [id number] Natriuretic peptide B [Mass/ Vol]on 09-26-2024 Natriuretic peptide B (Bld) [Mass/Vol] 44 pg/mL Normal 0-99 [facility] Comment on above: Order Comment: <100 pg/mL - Heart failure unlikely 100-299 pg/mL - Intermediate probability of acute heart failure exacerbation. Correlate with clinical context and patient history. >=300 pg/mL - Heart Failure likely. Correlate with clinical context and patient history. BNP testing is performed using different testing methodology at [facility] than at other [facility]. Direct result comparisons should only be made within the same method. Performed By: #### 3 0934-4 #### VISHNU LEE ([id number]) [facility] ([facility]) [address] [place] [address] No Panel Informationon 09-26 Interpretation and review of laboratory results Normal [facility] Interpretation and review of laboratory results Abnormal [facility] Triacylglycerol lipaseon Lipase [Catalytic activity/Vol] 16 U/L Normal 9-82 [facility] Comment on above: Order Comment: Venip uncture immediately after or during the administration of Metamizole may lead to falsely low results. Testing should be performed immediately prior to Metamizole dosing. Performed By: #### 3 040-3 #### VISHNU LEE ([id number]) [facility] ([facility]) [address] [place] [address] Troponin I.cardiac panelon 0 09-26-2024 Tropinin I.cardiac panel High sensitivity method 12 ng/L Normal 0-20 [facility] Comment on above: Order Comment: Less than [...] performed using a different testing methodology at [facility] than at other [facility]. Direct result comparisons should only be made within the same method. Performed By: #### 8 9577-1 #### VISHNU LEE ([id number]) [facility] ([facility]) [address] [place] [address] 79557 XR CHEST 1 VIEWon 09-26-2024 XR CHEST 1 VIEW Interpreted By: Pavel Blum, STUDY: XR CHEST 1 VIEW; 09/26/2024 11:26 pm INDICATION: Signs/Symptoms:SOB. COMPARISON: Chest radiograph 03/17/2023. ACCESSION NUMBER(S): [id number] ORDERING CLINICIAN: MATTHEW AHN FINDINGS: CARDIOMEDIASTINAL SILHOUETTE: Cardiomediastinal silhouette is normal in size and configuration. LUNGS/PLEURA: Unchanged calcified granuloma in the right upper lobe. There are no consolidations.There are no pleural effusions. There is no demonstrated pneumothorax. BONES: No evidence of acute osseous abnormality. IMPRESSION: 1. No evidence of acute cardiopulmonary process. Signed by: Pavel Blum 09/27/2024 12:10 AM Dictation workstation: [id number] [facility] XR Chest Single viewon 09-26 Radiology Study observation (narrative) [facility] Work Phone: Pulmonary Visit Reporton Pulmonary Visit Report [facility] [place] [address] [place] [address] OFFICE VISIT Date of Service: 07/14/24 MR#: [id number] Acct: [id number] Name: OLI DE LA FUENTE JrRanjan Rep #: [id number] : 1950 Provider: DAVID Lowery Age/Sex: 73/M [facility] Status: Signed Assessment and Plan Assessment and Plan (1) Severe persistent allergic asthma: Status: Acute Plan: Chronically dependent on steroids in addition to nebulized budesonide. He is compliant with Claritin and Singulair. He was previously approved for Graphen[employer]pre[employer], however it was too expensive, even with [...] Additional Comments: This note was generated with iSpecimen dictation software. It may contain incorrect words, spelling, and punctuation that were not noted in checking the note before signing. Follow Up: 4 Months ([facility]) HPI 4-6 M FU Chief Complaint: Mucus [...] Sitting R (more content not included)... Normal [facility] Absolute lymphocyte countOrd ered By: Ashlee Lanier on 06-24-2024 Lymphocytes Auto (Unsp spec) [#/Vol] 1.36 10*3/uL 0.83-4.51 [facility] Absolute neutrophil countOrd ered By: Ashlee Lanier on 06-24-2024 Neutrophils (Bld) [#/Vol] 4.3 10*3/uL 2.0-7.7 [facility] Anion gap in Serum or Plasma Ordered By: Ashlee Lanier on 06-24-2024 Anion gap [Moles/Vol] 11 mmol/L 5-15 [facility] Automated lymphocyte count a s percentage of total leukocytesOrdered By: Ashlee Lanier on 06-24-2024 Lymphocytes/100 WBC Auto (Unsp spec) 21.6 % 19-41 [facility] BUN/creatinine ratioOrdered By: Ashlee Lanier on 06-24-2024 Urea nitrogen/Creatinine [Mass ratio] 12.8 mg/mg 10-20 [facility] Basophil percentageOrdered B y: Ashlee Lanier on 06-24-2024 Basophils/100 WBC (Bld) 0.3 % 0-1 [facility] Bilirubin, totalOrdered By: Ashlee Lanier on 06-24-2024 Bilirubin [Mass/Vol] 0.40 mg/dL 0.00-1.30 [facility] CBC W/Diff, Automatedon 06-02 Absolute Lymph 1.36 X10 3/uL Normal 0.83-4.51 [facility] Comment on above: Performed By: #### L 100.0100 #### [facility] [address] [place], [address] Absolute Neut 4.3 X10 3/uL Normal 2.0-7.7 [facility] Comment on above: Performed By: #### L 100.0100 #### [facility] [address] [place], [address] Basophils/100 WBC (Bld) 0.3 % Normal 0-1 [facility] Comment on above: Performed By: #### L 100.0100 #### [facility] [address] [place], [address] Eosinophils/100 WBC (Bld) 0.5 % Normal 0-5 [facility] Comment on above: Performed By: #### L 100.0100 #### [facility] [address] [place], [address] Erythrocyte distribution width (RBC) [Ratio] 13.1 % Normal 11.6-14.6 [facility] Comment on above: Performed By: #### L 100.0100 #### [facility] [address] [place], [address] Hematocrit (Bld) [Volume fraction] 45.7 % Normal 40-54 [facility] Comment on above: Performed By: #### L 100.0100 #### [facility] [address] [place], [address] Hemoglobin (Bld) [Mass/Vol] 14.8 g/dL Normal 13.0-16.5 [facility] Comment on above: Performed By: #### L 100.0100 #### [facility] [address] [place], [address] IG% 0.800 Normal 0.0-0.9 [facility] Comment on above: Result Comment: IG% - Immature Granulocytes (promyelocytes, myelocytes and metamyelocytes) > 1% indicates that a LEFT SHIFT is Present. Performed By: #### L 100.0100 #### [facility] [address] [place], [address] Lymphocytes/100 WBC (Bld) 21.6 % Normal 19-41 [facility] Comment on above: Performed By: #### L 100.0100 #### [facility] [address] [place], [address] MCH (RBC) [Entitic mass] 30.4 pg Normal 27.0-32.0 [facility] Comment on above: Performed By: #### L 100.0100 #### [facility] [address] [place], [address] MCHC (RBC) [Mass/Vol] 32.4 g/dL Normal 32-36 [facility] Comment on above: Performed By: #### L 100.0100 #### [facility] [address] [place], [address] MCV (RBC) [Entitic vol] 93.8 fL Normal 80-94 [facility] Comment on above: Performed By: #### L 100.0100 #### [facility] [address] [place], [address] Monocytes/100 WBC (Bld) 8.6 % Normal 0-10 [facility] Comment on above: Performed By: #### L 100.0100 #### [facility] [address] [place], [address] Neutrophils/100 WBC (Bld) 68.2 % Normal 47-70 [facility] Comment on above: Performed By: #### L 100.0100 #### [facility] [address] [place], [address] Nucleated RBC (Bld) [#/Vol] 0 10*3/uL Normal 0-5 [facility] Comment on above: Performed By: #### L 100.0100 #### [facility] [address] [place], [address] Platelet mean volume (Bld) [Entitic vol] 9.0 fL Normal 6.2-12.0 [facility] Comment on above: Performed By: #### L 100.0100 #### [facility] [address] [place], [address] Platelets (Bld) [#/Vol] 254 10*3/uL Normal 150-450 [facility] Comment on above: Performed By: #### L 100.0100 #### [facility] [address] [place], [address] RBC (Bld) [#/Vol] 4.87 10*6/uL Normal 4.6-6.2 [facility] Comment on above: Performed By: #### L 100.0100 #### [facility] [address] [place], [address] RDW SD 44.7 fl High 35.1-43.9 [facility] Comment on above: Performed By: #### L 100.0100 #### [facility] [address] [place], [address] WBC (Bld) [#/Vol] 6.3 10*3/uL Normal 4.4-11.0 [facility] Comment on above: Performed By: #### L 100.0100 #### [facility] [address] [place], [address] Calculated very low density lipoprotein (VLDL) cholesterol measurementOrdered By: Ashlee Lanier on 06-24-2024 Calculated very low density lipoprotein (VLDL) cholesterol measurement 26 mg/dL 5-40 [facility] VLDL Cholesterol 26 mg/dL 5-40 [facility] Carbon dioxide, total [Moles /volume] in Central venous bloodOrdered By: Ashlee Lanier on 06-24-2024 CO2 [Moles/Vol] 21.8 mmol/L 21.0-32.0 [facility] Chloride assayOrdered By: Marleny Lanier on 06-24-2024 Chloride [Moles/Vol] 106 mmol/L 98-108 [facility] Comprehensive Metabolic Prof ilon 06-24-2024 Albumin [Mass/Vol] 3.5 g/dL Normal 3.4-4.8 [facility] Comment on above: Performed By: #### L 100.0100 #### [facility] [address] [place], [place], [id number] (399) Albumin/Globulin [Mass ratio] 1.3 {ratio} Normal 0.9-2.4 [facility] Comment on above: Performed By: #### L 100.0100 #### [facility] [address] [place], [address] ALK PHOS 89 U/L Normal 40-129 [facility] Comment on above: Performed By: #### L 100.0100 #### [facility] [address] [place], [address] ALT [Catalytic activity/Vol] 13 U/L Normal <=46 [facility] Comment on above: Performed By: #### L 100.0100 #### [facility] [address] [place], [address] AST [Catalytic activity/Vol] 21 U/L Normal <=37 [facility] Comment on above: Performed By: #### L 100.0100 #### [facility] [address] [place], [address] Bilirubin [Mass/Vol] 0.40 mg/dL Normal 0.00-1.30 [facility] Comment on above: Performed By: #### L 100.0100 #### [facility] [address] [place], [address] BUN/CRE 12.8 RATIO Normal 10-20 [facility] Comment on above: Performed By: #### L 100.0100 #### [facility] [address] [place], [address] Calcium [Mass/Vol] 8.6 mg/dL Normal 7.6-11.0 [facility] Comment on above: Performed By: #### L 100.0100 #### [facility] [address] [place], [address] Chloride [Moles/Vol] 106 mmol/L Normal 98-108 [facility] Comment on above: Performed By: #### L 100.0100 #### [facility] [address] [place], [address] CO2 [Moles/Vol] 21.8 mmol/L Normal 21.0-32.0 [facility] Comment on above: Performed By: #### L 100.0100 #### [facility] [address] [place], [address] Creatinine [Mass/Vol] 1.23 mg/dL High 0.70-1.20 [facility] Comment on above: Performed By: #### L 100.0100 #### [facility] [address] [place], [address] GAP 11 Normal 5-15 [facility] Comment on above: Performed By: #### L 100.0100 #### [facility] [address] [place], [address] GFR/1.73 sq M.predicted among non-blacks MDRD (S/P/Bld) [Vol rate/Area] 61 mL/min/{1.73_m2} Normal >60 [facility] Comment on above: Result Comment: mL/m in/1.73m2 CKD-EPI Creatinine Equation (2020) Performed By: #### L 100.0100 #### [facility] [address] [place], [address] Globulin (S) [Mass/Vol] 2.7 g/dL Normal 2.2-4.2 [facility] Comment on above: Performed By: #### L 100.0100 #### [facility] [address] [place], [address] Glucose [Mass/Vol] 93 mg/dL Normal 70-99 [facility] Comment on above: Performed By: #### L 100.0100 #### [facility] [address] [place], [address] Potassium [Moles/Vol] 4.1 mmol/L Normal 3.3-5.1 [facility] Comment on above: Performed By: #### L 100.0100 #### [facility] [address] [place], [address] Sodium [Moles/Vol] 139 mmol/L Normal 133-145 [facility] Comment on above: Performed By: #### L 100.0100 #### [facility] [address] [place], [address] T PROT 6.2 g/dL Normal 5.9-8.4 [facility] Comment on above: Performed By: #### L 100.0100 #### [facility] [address] [place], [address] Urea nitrogen [Mass/Vol] 16 mg/dL Normal 4-19 [facility] Comment on above: Performed By: #### L 100.0100 #### [facility] [address] [place], [address] Eosinophil percentageOrdered By: Ashlee Lanier on 06-24-2024 Eosinophils/100 WBC (Bld) 0.5 % 0-5 [facility] Erythrocyte distribution wid th (RBC) [Ratio]Ordered By: Ashlee Lanier on 06-24-2024 Erythrocyte distribution width (RBC) [Entitic vol] 44.7 fL High 35.1-43.9 [facility] Erythrocyte distribution wid th ratioOrdered By: Ashlee Lanier on 06-24-2024 Erythrocyte distribution width (RBC) [Ratio] 13.1 % 11.6-14.6 [facility] Erythrocyte distribution wid th standard deviationOrdered By: Ashlee Lanier on 06-24-2024 Erythrocyte distribution width (RBC) [Ratio] 44.7 fl High 35.1-43.9 [facility] Free T3on 06-24-2024 Free T3 [Mass/Vol] 1.9 pg/mL Low 2.18-3.98 [facility] Comment on above: Performed By: #### L 503.6005 #### [facility] [address] [place] [address], [address] Free T3Mpmnfxi By: Ashleescout lux on 06-24-2024 Free T3 [Mass/Vol] 1.9 pg/mL Low 2.18-3.98 [facility] Free Triiodothyronine (T3) pg/dL 1.9 pg/mL Low 2.18-3.98 [facility] GFR/1.73 sq M.predicted fredy g non-blacks MDRD (S/P/Bld) [Vol rate/Area]Ordered By: Ashlee Lainer on 06-24-2024 Estimated GFR (MDRD) Non-Af Amer 61 >60 [facility] Comment on above: mL/min/1.73m2 CKD-EP I Creatinine Equation (2020) Glomerular filtration rate ( GFR) estimation/1.73 sq m using serum, plasma, or whole bOrdered By: Ashlee Lanier on 06-24-2024 GFR/1.73 sq M.predicted among non-blacks MDRD (S/P/Bld) [Vol rate/Area] 61 mL/min/{1.73_m2} >60 [facility] Comment on above: mL/min/1.73m2 CKD-EP I Creatinine Equation (2020) Hematocrit Auto (Bld) [Volum e fraction]Ordered By: Ashlee Lanier on 06-24-2024 Hematocrit (Bld) [Volume fraction] 45.7 % 40-54 [facility] Hemoglobin measurementOrdere d By: Ashlee Lanier on 06-24-2024 Hemoglobin (Bld) [Mass/Vol] 14.8 g/dL 13.0-16.5 [facility] Immature granulocytes/100 WB C Auto (Bld)Ordered By: Ashlee Lanier on 06-24-2024 Immature granulocytes/100 WBC (Bld) 0.800 % 0.0-0.9 [facility] Comment on above: IG% - Immature Granu locytes (promyelocytes, myelocytes and metamyelocytes) > 1% indicates that a LEFT SHIFT is Present. LDL calc ser/plasOrdered By: Ashlee Lanier on 06-24-2024 Cholesterol in LDL [Mass/Vol] 140 mg/dL [facility] Comment on above: Fqobzmcitg=564-444 m g/dL & Higher Tpgy=082 mg/dL or greater LDL Cholesterol, Calculated 140 mg/dL [facility] Comment on above: Sqqkixzool=212-157 m g/dL & Higher Zbcx=416 mg/dL or greater Laboratory - Chemistry and C hemistry - challengeOrdered By: Ashlee Lanier on 06-24-2024 AST [Catalytic activity/Vol] 21 U/L <38 [facility] Lipid Profileon 06-24-2024 CHOL:HDL 5.23 Normal [facility] Comment on above: Performed By: #### L 100.0100 #### [facility] [address] [place], [place], [id number] Cholesterol [Mass/Vol] 205 mg/dL High <=200 [facility] Comment on above: Result Comment: Chol esterol level, Desirable <200 mg/dL Borderline high cholesterol 200-239 mg/dL High cholesterol >=240 mg/dL Recommendations of the NCEP Adult Treatment Panel for the following risk-cutoff thresholds for the [place] population. Performed By: #### L 100.0100 #### [facility] [address] [place], [address] Cholesterol in HDL [Mass/Vol] 39 mg/dL Low [facility] Comment on above: Result Comment: Lucila onal Cholesterol Education Program (NCEP) guidelines: <40 mg/dL: Low HDL-cholesterol (major risk factor for CHD) >= 60 mg/dL: High HDL-cholesterol (negative risk factor for CHD) HDL-cholesterol is affected by a number of factors, e.g. smoking, exercise, hormones, sex and age. Performed By: #### L 100.0100 #### [facility] [address] [place], [address] Cholesterol in LDL [Mass/Vol] 140 mg/dL Normal [facility] Comment on above: Result Comment: Bord lchfor=508-613 mg/dL Higher Jucf=499 mg/dL or greater Performed By: #### L 100.0100 #### [facility] [address] [place], [address] Cholesterol in VLDL [Mass/Vol] 26 mg/dL Normal 5-40 [facility] Comment on above: Performed By: #### L 100.0100 #### [facility] [address] [place], [address] Triglyceride [Mass/Vol] 130 mg/dL Normal [facility] Comment on above: Result Comment: The drugs N-Acetylcysteine and Metamizole may falsely depress this assay. Normal range: <150 mg/dL Borderline High: 150-199 mg/dL High: 200-499 mg/dL Very High: >500 mg/dL Performed By: #### L 100.0100 #### [facility] [address] [place], [address] Lymphocytes Auto (Unsp spec) [#/Vol]Ordered By: Ashlee Lanier on 06-24-2024 Lymphocytes (Bld) [#/Vol] 1.36 10*3/uL 0.83-4.51 [facility] Lymphocytes/100 WBC Auto (Un sp spec)Ordered By: Ashlee Lanier on 06-24-2024 Lymphocytes/100 WBC (Bld) 21.6 % 19-41 [facility] MCV (mean corpuscular volume ) determinationOrdered By: Ashlee Lanier on 06-24-2024 MCV (RBC) [Entitic vol] 93.8 fL 80-94 [facility] Magnesiumon 06-24-2024 Magnesium [Mass/Vol] 1.9 mg/dL Normal 1.5-2.2 [facility] Comment on above: Performed By: #### L 100.0100 #### [facility] [address] [place] [address], [phone] Magnesium (Unsp spec) [Mass/ Vol]Ordered By: Ashlee Lanier on 06-24-2024 Magnesium [Mass/Vol] 1.9 mg/dL 1.5-2.2 [facility] Magnesium measurement (mass/ volume)Ordered By: Ashlee Lanier on 06-24-2024 Magnesium (Unsp spec) [Mass/Vol] 1.9 mg/dL 1.5-2.2 [facility] Mean corpuscular hemoglobin (MCH) determinationOrdered By: Ashlee Lanier on 06-24-2024 MCH (RBC) [Entitic mass] 30.4 pg 27.0-32.0 [facility] Mean corpuscular hemoglobin concentration (MCHC) determinationOrdered By: Ashlee Lanier on 06-24-2024 MCHC (RBC) [Mass/Vol] 32.4 g/dL 32-36 [facility] Mean platelet volume determi nationOrdered By: Ashlee Lanier on 06-24-2024 Platelet mean volume (Bld) [Entitic vol] 9.0 fL 6.2-12.0 [facility] Monocyte percentageOrdered B y: Ashlee Lanier on 06-24-2024 Monocytes/100 WBC (Bld) 8.6 % 0-10 [facility] Neutrophil percentageOrdered By: Ashlee Lanier on 06-24-2024 Neutrophils/100 WBC (Bld) 68.2 % 47-70 [facility] Nucleated red blood cell per centageOrdered By: Ashlee Lanier on 06-24-2024 Nucleated RBC/100 WBC (Bld) [Ratio] 0 % 0-5 [facility] PSA, total screeningOrdered By: Ashlee Lanier on 06-24-2024 Prostate Specific Antigen Screen 2.58 ng/mL 0.02-4.00 [facility] Comment on above: This test was perfor med using the [employer] tPSA method. Measured values of a patient sample can vary depending on the testing procedure used. PSA values determined on patient samples by different testing procedures cannot be used interchangeably. If there is a change in PSA assays while monitoring therapy, sequential testing should be performed to confirm baseline values. PSA,Total - Annual Screenon 06-24-2024 PSA,TOT SCREEN 2.58 ng/mL Normal 0.02-4.00 [facility] Comment on above: Result Comment: This [...] confirm baseline values. Performed By: #### L 503.6005 #### [facility] [address] [place], [place] [address]andrew. [place], [place], [id number] Platelet countOrdered By: Marleny Lanier on 06-24-2024 Platelets (Bld) [#/Vol] 254 10*3/uL 150-450 [facility] Potassium (Unsp spec) [Mass/ Vol]Ordered By: Ashlee Lanier on 06-24-2024 Potassium [Moles/Vol] 4.1 mmol/L 3.3-5.1 [facility] Potassium measurement (mass/ volume)Ordered By: Ashlee Lanier on 06-24-2024 Potassium (Unsp spec) [Mass/Vol] 4.1 mmol/L 3.3-5.1 [facility] RBC Auto (Bld) [#/Vol]Ordere d By: Ashlee Lanier on 06-24-2024 RBC (Bld) [#/Vol] 4.87 10*6/uL 4.6-6.2 [facility] Screening total cholesterol/ high density lipoprotein (HDL) cholesterol ratioOrdered By: Ashlee Lanier on 06-24-2024 Cholesterol.total/Amalia sterol in HDL [Mass ratio] 5.23 {ratio} [facility] Serum creatinine measurement (mass/volume)Ordered By: Ashlee Lanier on 06-24-2024 Creatinine [Mass/Vol] 1.23 mg/dL High 0.70-1.20 [facility] Serum globulin measurementOr dered By: Ashlee Lanier on 06-24-2024 Globulin (S) [Mass/Vol] 2.7 g/dL 2.2-4.2 [facility] Serum glucose measurement (m ass/volume)Ordered By: Ashlee Lanier on 06-24-2024 Glucose [Mass/Vol] 93 mg/dL 70-99 [facility] Serum or plasma alanine malloy otransferase (ALT) measurementOrdered By: Ashlee Lanier on 06-24-2024 ALT [Catalytic activity/Vol] 13 U/L <47 [facility] Serum or plasma albumin lida urement (mass/volume)Ordered By: Ashlee Lanier on 06-24-2024 Albumin [Mass/Vol] 3.5 g/dL 3.4-4.8 [facility] Serum or plasma albumin/glob ulin mass ratioOrdered By: Ashlee Lanier on 06-24-2024 Albumin/Globulin [Mass ratio] 1.3 {ratio} 0.9-2.4 [facility] Serum or plasma alkaline ramin sphatase measurementOrdered By: Ashlee Lanier on 06-24-2024 ALP [Catalytic activity/Vol] 89 U/L 40-129 [facility] Serum or plasma calcium lida urement (mass/volume)Ordered By: Ashlee Lanier on 06-24-2024 Calcium [Mass/Vol] 8.6 mg/dL 7.6-11.0 [facility] Serum or plasma cholesterol in HDL measurement (mass/volume)Ordered By: Ashlee Lanier on 06-24-2024 Cholesterol in HDL [Mass/Vol] 39 mg/dL Low >40 [facility] Comment on above: National Cholesterol Education Program (NCEP) guidelines:<40 mg/dL: Low HDL-cholesterol (major risk factor for CHD)>= 60 mg/dL: High HDL-cholesterol (negative risk factor for CHD)HDL-cholesterol is affected by a number of factors, e.g. smoking, exercise, hormones, sex and age. Serum or plasma cholesterol measurement (mass/volume)Ordered By: Ashlee Lanier on 06-24-2024 Cholesterol [Mass/Vol] 205 mg/dL High <201 [facility] Comment on above: Cholesterol level, D esirable <200 mg/dLBorderline high cholesterol 200-239 mg/dLHigh cholesterol >=240 mg/dLRecommendations of the NCEP Adult Treatment Panel for the following risk-cutoff thresholds for the [place] population. Serum or plasma urea nitroge n measurement (mass/volume)Ordered By: Ashlee Lanier on 06-24-2024 Urea nitrogen [Mass/Vol] 16 mg/dL 4-19 [facility] Sodium levelOrdered By: Page Lanier on 06-24-2024 Sodium [Moles/Vol] 139 mmol/L 133-145 [facility] T4 Free Directon 06-24-2024 T4 FREE DIRECT 1.10 ng/dL Normal 0.76-1.46 [facility] Comment on above: Performed By: #### L 503.6005 #### [facility] [address] [place], [address] T4 freeOrdered By: Ashlee lux on 06-24-2024 Free T4 [Mass/Vol] 1.10 ng/dL 0.76-1.46 [facility] TSH DL <= 0.005 mIU/L QnOrde red By: Ashlee Lanier on 06-24-2024 Thyroid Stimulating Hormone (TSH) 1.090 uIU/mL 0.300-4.200 [facility] TSH Qn 1.090 uIU/mL 0.300-4.200 [facility] Thyroid Stim Hormone (TSH)on 06-24-2024 TSH 1.090 uIU/mL Normal 0.300-4.200 [facility] Comment on above: Performed By: #### L 503.6005 #### [facility] [address] [place], [address] Total proteinOrdered By: Nova Lanier on 06-24-2024 Protein [Mass/Vol] 6.2 g/dL 5.9-8.4 [facility] Triglycerides measurementOrd ered By: Ashlee Lanier on 06-24-2024 Triglyceride [Mass/Vol] 130 mg/dL <199 [facility] Comment on above: The drugs N-Acetylcy steine and Metamizole may falsely depress this assay. Normal range: <150 mg/dLBorderline High: 150-199 mg/dLHigh: 200-499 mg/dLVery High: >500 mg/dL Vitamin D, 25-hydroxyOrdered By: Ashlee Lanier on 06-24-2024 Vitamin D 25-Hydroxy 26.3 ng/mL Low 30-100 [facility] Comment on above: Vitamin D StatusDefi ciency: <20 ng/mL (50nmol/L)Insufficiency: 20-30 ng/mL (50-75 nmol/L)Sufficiency: 30-100 ng/mL (75-250 nmol/L)Toxicity: >100 ng/mL (>250 nmol/L) Vitamin D,25 Hydroxyon 06-24 Vitamin D 25-OH 26.3 ng/mL Low 30-100 [facility] Comment on above: Result Comment: Nasrin min D Status Deficiency: <20 ng/mL (50nmol/L) Insufficiency: 20-30 ng/mL (50-75 nmol/L) Sufficiency: 30-100 ng/mL (75-250 nmol/L) Toxicity: >100 ng/mL (>250 nmol/L) Performed By: #### L 503.6005 #### [facility] [address] [place], [place], [id number] White blood cell (WBC) count Ordered By: Ashlee Lanier on 06-24-2024 WBC (Bld) [#/Vol] 6.3 10*3/uL 4.4-11.0 [facility] CNCOon 05-20-2024 CNCO Letter Text Normal [facility] MR/BMS.IMBon 04-12-2024 MR/BMS.IMB [facility] [address] [place] [address] OFFICE VISIT Date of Service: 04/12/24 MR#: [id number] Acct: [id number] Name: OLI DE LA FUENTE Jr. Rep #: [id number] : 1950 Provider: Dr. Ashlee oden MD Age/Sex: 73/M Location: [facility] Status: Signed Intake Vital Signs 04/14/23 [...] Y FU Chief Complaint: 1 Y FU Account Specialist Required: No Accompanied by: Daughter Is patient [...] you fallen in the past year?: No [facility] Medical History Cellulitis of right lower extremity [...] HPI Chief Complaint: 1 Y FU Details: OLI DE LA FUENTE, is a 73 M who presents to the office today for annual follow-up. 73-year-old gentleman who has a history of COPD, centrilobular emphysema, asthma/COPD overlap syndrome, and follows routinely with pulmonary medicine. He also has CAD, and follows with cardiology regularly at the [facility]. He has hypertension, hyperlipidemia and is on chronic anticoagulation. He has been on long-term prednisone, at 10 mg daily. It has been suggested 80 potentially look at alternatives however he has been re (more content not included)... Normal [facility] Chest without Contraston Chest without Contrast [facility] [address] [place] [address] Chest without Contrast MR#: [id number] Acct: [id number] Name: OLI DE LA FUENTE Jr. Rep #: [id number] : 1950 M 73 From: Poncho Stallings MD PCP: Dr. Ashlee Lanier MD Status: REG CLI Study: Chest without Contrast Date of Exam: 03/31/24 Exam# [id number] Ordering Dr: Jyothi Lowery [employer]-C ADDENDUM by Dr. Poncho Stallings MD on [...] use of iterative reconstruction technique). Reading Location: [facility] CC: DAVID Lowery; Dr. Ashlee Lanier MD Therapeutic Strategy Lead: Signed Normal [facility] Pulmonary Visit Reporton Pulmonary Visit Report [facility] [place] [address] [place] [address] OFFICE VISIT Date of Service: 03/16/24 MR#: [id number] Acct: [id number] Name: OLI DE LA FUENTE Jr. Rep #: [id number] : 1950 Provider: DAVID Lowery Age/Sex: 73/M Location: [facility] Status: Signed Assessment and Plan Assessment and [...] 0RF Plan Details Follow Up: 4 Months ([facility]) HPI 4 M FU Chief Complaint: Routine [...] Temporal Artery (more content not included)... [facility] Office Visit ([facility] ) OLI DE LA FUENTE Krystin ([id number]) 1950 M Date Time Provider Department 03/05/24 10:20 AM IDANIA FRAIRE During your visit today, we recorded the following information about you: Pulse Blood pressure Weight Height 73/minute 110/66 82.6 kg 1.829 m Idania Fraire DO 03/05/2024 11:05 AM [facility] SECTION OF REGIONAL CARDIOLOGY [facility] OUTPATIENT VISIT DATE March 05, 2024 PRIMARY CARE PHYSICIAN: Ashlee Lanier [address] [facility] [address] [place] [address] HISTORY OF PRESENT ILLNESS: Mr. De La [...] artery disease) Chronic obstructive pulmonary disease (COPD) ([facility]) Diastolic congestive heart failure ([facility]) 03/11/2022 Dyslipidemia Flutter-fibrillation ([facility]) Heart attack ([facility]) Hypertension NSTEMI (non-ST elevated myocardial infarction) ([facility]) 05/2018 Stroke ([facility]) Thyroid disease TIA (transient ischemic attack) PAST SURGICAL HISTORY Procedure Laterality Date CARDIAC CATHETERIZATION HX 05/2017 1 stent Social History Tobacco Use Smoking status: Former Current packs/day: 0.00 Types: Cigarettes Quit date: 03/03/2005 Years since (more content not included)... Normal [facility] [facility] Pulmonary Visit Reporton Pulmonary Visit Report [facility] of [address] [place] [address] OFFICE VISIT Date of Service: 11/27/23 MR#: [id number] Acct: [id number] Name: OLI DE LA FUENTE Rep #: [id number] : 1950 Provider: DAVID Lwoery Age/Sex: 73/M Location: [facility].PMW Status: Signed Assessment and Plan Assessment and [...] unspecified Plan Details Follow Up: 4 Months ([facility]) HPI 4 M FU Chief Complaint: Routine [...] 11/27/23 Rx (more content not included)... Normal [facility] POCT SARS-COV-2/FLU/RSV PCR SYMPTOMATIC manually resultedon 11-17-2023 FLUAV RNA LOGAN+probe Ql (Resp) Not detected Not Detected [facility] Work Phone: FLUBV RNA LOGAN+probe Ql (Resp) Not detected Not Detected [facility] Work Phone: RSV RNA LOGAN+probe Ql (Resp) Not detected Not Detected [facility] Work Phone: SARS-CoV-2 (COVID-19) RNA LOGAN+probe Ql (Resp) Not detected Not Detected [facility] Work Phone: [facility] Work Phone: CNOVon 09-02-2023 CNOV Office Visit (CARMED ) LEISAOLI Krystin ([id number]) 1950 Date Time Provider Department 09/02/23 11:20 AM IDANIA FRAIRE During your visit today, we recorded the following information about you: Pulse Blood pressure Weight Height 71/minute 102/68 81.1 kg 1.829 m Idania Fraire DO 09/02/2023 3:55 PM Signed [facility] SE[facility] OF [facility]AL CARDI[facility]Y [facility] OUTPATIENT VISIT DATE September 02, 2023 PRIMARY CARE PHYSICIAN: Ashlee Lanier [facility] [address] HISTORY OF PRESENT ILLNESS: Mr. De La [...] artery disease) Chronic obstructive pulmonary disease (COPD) ([facility]) Diastolic congestive heart failure ([facility]) 03/11/2022 Dyslipidemia Flutter-fibrillation ([facility]) Heart attack ([facility]) Hypertension NSTEMI (non-ST elevated myocardial infarction) ([facility]) 05/2018 Stroke ([facility]) Thyroid disease TIA (transient ischemic attack) PAST SURGICAL HISTORY Procedure Laterality Date CARDIAC CATHETERIZATION HX 05/2017 1 stent Social History Tobacco Use Smoking status: Former Types: Cigarettes Quit date: 03/03/2005 Years since quittin.5 Smokeless tobacco: Current Types: Snuff Vaping Use Vaping Use: Never used Substance Use Topics Alc (more content not included)... [facility] 09-02-2023 [facility] Telephone (CARMED) OLI DE LA FUENTE ([id number]) 1950 M Date Time Provider Department 09/02/23 IDANIA FRAIRE During your visit today, we recorded the following information about you: Arslan Radford LPN 09/02/2023 1:54 PM Signed Please call daughter Ashtyn, at [phone], to schedule his 6 mo f/u. 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 OLI DE LA FUENTE : 1950 Age: 72 [...] maximal dimensio (more content not included)... Normal [facility] Absolute lymphocyte countOrd ered By: Ashlee Lanier on 04-16-2023 Lymphocytes Auto (Unsp spec) [#/Vol] 1.54 10*3/uL 0.83-4.51 [facility] Automated lymphocyte count a s percentage of total leukocytesOrdered By: Ashlee Lanier on 04-16-2023 Lymphocytes/100 WBC Auto (Unsp spec) 14.8 % 19-41 [facility] Basophil percentageOrdered B y: Ashlee Lanier on 04-16-2023 Basophils/100 WBC (Bld) 0.7 % 0-1 [facility] Bilirubin [Mass/Vol] 0.40 mg/dL 0.20-1.00 [facility] Comment on above: For patients on eltr ombopag therapy, use of Dimension Letcher TBIL is not recommended. Chloride [Moles/Vol] 109 mmol/L 98-107 [facility] Eosinophils/100 WBC (Bld) 1.1 % 0-5 [facility] Glucose [Mass/Vol] 82 mg/dL 74-106 [facility] Hemoglobin (Bld) [Mass/Vol] 13.8 g/dL 13.0-16.5 [facility] Monocytes/100 WBC (Bld) 8.2 % 0-10 [facility] Neutrophils (Bld) [#/Vol] 7.7 10*3/uL 2.0-7.7 [facility] Neutrophils/100 WBC (Bld) 74.0 % 47-70 [facility] Potassium [Moles/Vol] 3.8 mmol/L 3.5-5.1 [facility] Protein [Mass/Vol] 6.8 g/dL 6.4-8.2 [facility] Sodium [Moles/Vol] 141 mmol/L 136-145 [facility] WBC (Bld) [#/Vol] 10.4 10*3/uL 4.4-11.0 [facility] Determination of erythrocyte mean corpuscular volume (MCV)Ordered By: Ashlee Lanier on 04-16-2023 MCV (RBC) [Entitic vol] 98.7 fL 80-94 [facility] Erythrocyte distribution wid th ratioOrdered By: Ashlee Lanier on 04-16-2023 Erythrocyte distribution width (RBC) [Ratio] 13.7 % 11.6-14.6 [facility] Erythrocyte distribution wid th standard deviationOrdered By: Ashlee Lanier on 04-16-2023 Erythrocyte distribution width (RBC) [Entitic vol] 49.6 fL 35.1-43.9 [facility] Hematocrit Auto (Bld) [Volum e fraction]Ordered By: Ashlee Lanier on 04-16-2023 Hematocrit (Bld) [Volume fraction] 44.8 % 40-54 [facility] Immature granulocytes/100 WB C Auto (Bld)Ordered By: Ashlee Lanier on 04-16-2023 Immature granulocytes/100 WBC (Bld) 1.200 % 0.0-0.9 [facility] Comment on above: IG% - Immature Granu locytes (promyelocytes, myelocytes and metamyelocytes) > 1% indicates that a LEFT SHIFT is Present. Laboratory - Chemistry and C hemistry - challengeOrdered By: Ashlee Lanier on 04-16-2023 Albumin/Globulin [Mass ratio] 0.8 {ratio} 0.9-2.4 [facility] ALP [Catalytic activity/Vol] 90 U/L 45-117 [facility] ALT [Catalytic activity/Vol] 54 U/L 16-61 [facility] CO2 [Moles/Vol] 26.0 mmol/L 21.0-32.0 [facility] Cobalamin (Vitamin B12) [Mass/Vol] 303 pg/mL 211-911 [facility] Globulin (S) [Mass/Vol] 3.8 g/dL 2.2-4.2 [facility] Magnesium [Mass/Vol] 2.1 mg/dL 1.6-2.6 [facility] Urea nitrogen/Creatinine [Mass ratio] 26.7 mg/mg 10-20 [facility] Laboratory - Hematology and Cell countsOrdered By: Ahslee Lanier on 04-16-2023 MCH (RBC) [Entitic mass] 30.4 pg 27.0-32.0 [facility] MCHC (RBC) [Mass/Vol] 30.8 g/dL 32-36 [facility] Nucleated RBC/100 WBC (Bld) [Ratio] 0 % 0-5 [facility] Platelet mean volume (Bld) [Entitic vol] 9.0 fL 6.2-12.0 [facility] Platelets (Bld) [#/Vol] 272 10*3/uL 150-450 [facility] No Panel InformationOrdered By: Ashlee Lanier on 04-16-2023 Estimated GFR (MDRD) Amer 76 mL/min >60 [facility] Comment on above: GFR Calc Estimated GFR (MDRD) Non-Af Amer 63 mL/min >60 [facility] Comment on above: Non- GFR Calc Free Triiodothyronine (T3) pg/dL 2.1 pg/mL 2.18-3.98 [facility] Prostate Specific Antigen Screen 3.86 ng/mL 0.00-4.00 [facility] Comment on above: This test was perfor med using the TPSA assay method for theDroid system master chemistry system. Values obtained with differentassay methods cannot be used interchangably.When changing PSA assays in the course of monitoring apatient, additional sequential testing should be carriedout to confirm baseline values. Vitamin D 25-Hydroxy 27.3 ng/mL [facility] Comment on above: Vitamin D 25(OH) [...] on 04-16-2023 Calcium [Mass/Vol] 9.1 mg/dL 8.5-10.1 [facility] Serum or plasma creatinine m easurement (mass/volume)Ordered By: Ashlee Lanier on 04-16-2023 Creatinine [Mass/Vol] 1.20 mg/dL 0.70-1.30 [facility] Comment on above: The validity of the calculated GFR & GFRAA in patients over 70 years has not been determined. Clinical correlation is essential. Serum or plasma thyroid stim ulating hormone (TSH) measurement (units/volume)Ordered By: Ashlee Lanier on 04-16-2023 TSH Qn 1.95 uIU/mL 0.358-3.74 [facility] Serum or plasma urea nitroge n measurement (mass/volume)Ordered By: Ashlee Lanier on 04-16-2023 Urea nitrogen [Mass/Vol] 32 mg/dL 7-18 [facility] Thin prep Papanicolaou smear with manual screeningOrdered By: Ashlee Lanier on 04-16-2023 Thin prep Papanicolaou smear with manual screening 3.0 g/dL 3.2-5.0 [facility] Thin prep Papanicolaou smear with manual screening 34 U/L 15-37 [facility] Thin prep Papanicolaou smear with manual screening 6 5-15 [facility] Thin prep Papanicolaou smear with manual screening 0.83 ng/dL 0.76-1.46 [facility] Whole blood hemoglobin A1c/t otal hemoglobin ratio (mass fraction)Ordered By: Ashlee Lanier on 04-16-2023 HbA1c (Bld) [Mass fraction] 5.7 % 3.8-5.6 [facility] Comment on above: Normal < 5.7 % Predi abetic 5.7 - 6.4 % Diabetic >or= 6.5 % Please note range changes. Bacteria identified Cx Nom ( Unsp spec)Ordered By: Krunal Mcdonald on 03-21-2023 Interpretation and review of laboratory results Abnormal [facility] Microscopic observation Gram stain Nom (Unsp spec) No polymorphonuclear leukocytes seen [facility] Microscopic observation Gram stain Nom (Unsp spec) No organisms seen [facility] Routine susceptibility testing is not performed. Streptococcus pyogenes is uniformly susceptible to beta-lactam antibiotics and vancomycin. [facility] Basic metabolic 2000 panelon 03-21-2023 Anion gap [Moles/Vol] 13 mmol/L 10 - 2 0 mmol/L [facility] Calcium [Mass/Vol] 8.4 mg/dL Low 8.6 - 10. 3 mg/dL [facility] Chloride [Moles/Vol] 108 mmol/L High 98 - 10 7 mmol/L [facility] CO2 [Moles/Vol] 22 mmol/L 21 - 32 mmol/L [facility] Creatinine [Mass/Vol] 1.20 mg/dL 0.50 - 1.30 mg/dL [facility] GFR/1.73 sq M.predicted among non-blacks MDRD (S/P/Bld) [Vol rate/Area] 63 mL/min/{1.73_m2} - PINF [facility] Comment on above: Calculations of etelvina mated GFR are performed using the 2020 CKD-EPI Study Refit equation without the race variable for the IDMS-Traceable creatinine methods. https://jasn.asnjournals.org/content/early/ASN.2020 592487 Glucose [Mass/Vol] 85 mg/dL 74 - 99 mg/dL [facility] Interpretation and review of laboratory results Abnormal [facility] Potassium [Moles/Vol] 3.5 mmol/L 3.5 - 5.3 mmol/L [facility] Sodium [Moles/Vol] 139 mmol/L 136 - 145 mmol/L [facility] Urea nitrogen [Mass/Vol] 23 mg/dL 6 - 23 mg/dL [facility] CBC panel Auto (Bld)on 03-21 Erythrocyte distribution width (RBC) [Ratio] 12.6 % 11.5 - 14.5 % [facility] Hematocrit (Bld) [Volume fraction] 36.2 % Low 41.0 - 52.0 % [facility] Hemoglobin (Bld) [Mass/Vol] 11.3 g/dL Low 13.5 - 17.5 g/dL [facility] Interpretation and review of laboratory results Abnormal [facility] MCH (RBC) [Entitic mass] 30.4 pg 26.0 - 34.0 pg [facility] MCHC (RBC) [Mass/Vol] 31.2 g/dL Low 32.0 - 36.0 g/dL [facility] MCV (RBC) [Entitic vol] 97 fL 80 - 100 fL [facility] Nucleated RBC/100 WBC (Bld) [Ratio] 0.0 % [facility] Platelets (Bld) [#/Vol] 297 10*3/uL [facility] RBC (Bld) [#/Vol] 3.72 10*6/uL Low [facility] WBC (Bld) [#/Vol] 12.6 10*3/uL High [facility] [place] [place] Tissue/Wound Culture/SmearOr dered By: Krunal Mcdonald on 03-21-2023 Bacteria identified Cx Nom (Unsp spec) (1+) Rare Streptococcus pyogenes (Group A Streptococcus) Abnormal [facility] Basic metabolic 2000 panelon 03-20-2023 Anion gap [Moles/Vol] 10 mmol/L 10 - 2 0 mmol/L [facility] Calcium [Mass/Vol] 8.2 mg/dL Low 8.6 - 10. 3 mg/dL [facility] Chloride [Moles/Vol] 110 mmol/L High 98 - 10 7 mmol/L [facility] CO2 [Moles/Vol] 23 mmol/L 21 - 32 mmol/L [facility] Creatinine [Mass/Vol] 0.97 mg/dL 0.50 - 1.30 mg/dL [facility] GFR/1.73 sq M.predicted among non-blacks MDRD (S/P/Bld) [Vol rate/Area] 82 mL/min/{1.73_m2} - PINF [facility] Comment on above: Calculations of etelvina mated GFR are performed using the 2020 CKD-EPI Study Refit equation without the race variable for the IDMS-Traceable creatinine methods. https://jasn.asnjournals.org/content/early/ASN.2020 073718 Glucose [Mass/Vol] 98 mg/dL 74 - 99 mg/dL [facility] Interpretation and review of laboratory results Abnormal [facility] Potassium [Moles/Vol] 3.7 mmol/L 3.5 - 5.3 mmol/L [facility] Sodium [Moles/Vol] 139 mmol/L 136 - 145 mmol/L [facility] Urea nitrogen [Mass/Vol] 24 mg/dL High 6 - 23 mg/dL [facility] CBC panel Auto (Bld)on 03-20 Erythrocyte distribution width (RBC) [Ratio] 12.8 % 11.5 - 14.5 % [facility] Hematocrit (Bld) [Volume fraction] 34.5 % Low 41.0 - 52.0 % [facility] Hemoglobin (Bld) [Mass/Vol] 10.6 g/dL Low 13.5 - 17.5 g/dL [facility] Interpretation and review of laboratory results Abnormal [facility] MCH (RBC) [Entitic mass] 30.1 pg 26.0 - 34.0 pg [facility] MCHC (RBC) [Mass/Vol] 30.7 g/dL Low 32.0 - 36.0 g/dL [facility] MCV (RBC) [Entitic vol] 98 fL 80 - 100 fL [facility] Nucleated RBC/100 WBC (Bld) [Ratio] 0.0 % [facility] Platelets (Bld) [#/Vol] 291 10*3/uL [facility] RBC (Bld) [#/Vol] 3.52 10*6/uL Low [facility] WBC (Bld) [#/Vol] 14.1 10*3/uL High [facility] [place] [place] No Panel Informationon 03-20 [facility] Vancomycin trough [Mass/Vol] on 03-20-2023 Interpretation and review of laboratory results Normal [facility] Vancomycin, Troughon 024 Vancomycin trough [Mass/Vol] 13.3 ug/mL 5.0 - 20.0 ug/mL [facility] Comment on above: Therapeutic Ranges: Peak (all ages): 30.0-40.0 ug/mL Trough (all ages): 10.0-20.0 ug/mL Vancomycin trough concentrations drawn immediately prior to the next dose at steady-state are preferred for concentration-guided monitoring of patients treated with vancomycin. Reference: Am J Health-Syst Pharm. 2020; 77(11):835-864. CBC panel Auto (Bld)on 03-19 Erythrocyte distribution width (RBC) [Ratio] 12.7 % 11.5 - 14.5 % [facility] Hematocrit (Bld) [Volume fraction] 36.0 % Low 41.0 - 52.0 % [facility] Hemoglobin (Bld) [Mass/Vol] 11.4 g/dL Low 13.5 - 17.5 g/dL [facility] Interpretation and review of laboratory results Abnormal [facility] MCH (RBC) [Entitic mass] 30.6 pg 26.0 - 34.0 pg [facility] MCHC (RBC) [Mass/Vol] 31.7 g/dL Low 32.0 - 36.0 g/dL [facility] MCV (RBC) [Entitic vol] 97 fL 80 - 100 fL [facility] Nucleated RBC/100 WBC (Bld) [Ratio] 0.0 % [facility] Platelets (Bld) [#/Vol] 306 10*3/uL [facility] RBC (Bld) [#/Vol] 3.72 10*6/uL [facility] W[facility] (Bld) [#/Vol] 18.8 10*3/uL High [facility] [place] [place] Comprehensive metabolic 2000 panelon 03-19-2023 Albumin BCP dye [Mass/Vol] 2.9 g/dL Low 3.4 - 5.0 g/dL [facility] ALP [Catalytic activity/Vol] 69 U/L 33 - 136 U/L [facility] ALT With P-5'-P [Catalytic activity/Vol] 26 U/L 10 - 52 U/L [facility] Comment on above: Patients treated wit h Sulfasalazine may generate falsely decreased results for ALT. Anion gap [Moles/Vol] 14 mmol/L 10 - 2 0 mmol/L [facility] AST With P-5'-P [Catalytic activity/Vol] 36 U/L 9 - 39 U/L [facility] Bilirubin [Mass/Vol] 0.5 mg/dL 0.0 - 1 .2 mg/dL [facility] Calcium [Mass/Vol] 8.6 mg/dL 8.6 - 10. 3 mg/dL [facility] Chloride [Moles/Vol] 107 mmol/L 98 - 10 7 mmol/L [facility] CO2 [Moles/Vol] 22 mmol/L 21 - 32 mmol/L [facility] Creatinine [Mass/Vol] 1.17 mg/dL 0.50 - 1.30 mg/dL [facility] GFR/1.73 sq M.predicted among non-blacks MDRD (S/P/Bld) [Vol rate/Area] 65 mL/min/{1.73_m2} - PINF [facility] Comment on above: Calculations of etelvina mated GFR are performed using the 2020 CKD-EPI Study Refit equation without the race variable for the IDMS-Traceable creatinine methods. https://jasn.asnjournals.org/content//ASN.2020 283712 Glucose [Mass/Vol] 123 mg/dL High 74 - 99 mg/dL [facility] Interpretation and review of laboratory results Abnormal [facility] Potassium [Moles/Vol] 3.5 mmol/L 3.5 - 5.3 mmol/L [facility] Protein [Mass/Vol] 5.7 g/dL Low 6.4 - 8.2 g/dL [facility] Sodium [Moles/Vol] 139 mmol/L 136 - 145 mmol/L [facility] Urea nitrogen [Mass/Vol] 30 mg/dL High 6 - 23 mg/dL [facility] No Panel Informationon 03-19 1. Areas of [...] De Leon 03/19/2023 1:51 PM Dictation workstation: [id number]ODAL Interpreted By: Jose Juan De [...] posterior right ankle COMPARISON: None. ACCESSION NUMBER(S): [id number]; [id number] ORDERING CLINICIAN: PALOMO FARNSWORTH TECHNIQUE: Intravenous contrast [...] posterior right ankle COMPARISON: None. ACCESSION NUMBER(S): [id number]; [id number] ORDERING CLINICIAN: PALOMO FARNSWORTH TECHNIQUE: Intravenous contrast [...] De Leon 03/19/2023 1:51 PM Dictation workstation: [id number] [facility] Work Phone: 1. No evidence of acute fracture or dislocation. MACRO: None. Signed by: Tariq Zamora 03/19/2023 11:37 AM Dictation workstation: [id number] KAYLIN PAZ Interpreted By: Tariq Zamora, STUDY: XR ANKLE RIGHT 3+ VIEWS; XR TIBIA FIBULA RIGHT 2 VIEWS; XR FOOT RIGHT 3+ VIEWS; 03/18/2023 10:22 pm INDICATION: Signs/Symptoms:infect ion wound , injury; Signs/Symptoms:infect ion. COMPARISON: None. ACCESSION NUMBER(S): [id number]; [id number]; [id number] ORDERING CLINICIAN: LIBERTAD BERKOWITZ TECHNIQUE: Three views [...] injury; Signs/Symptoms:infect ion. COMPARISON: None. ACCESSION NUMBER(S): [id number]; [id number]; [id number] ORDERING CLINICIAN: LIBERTAD BERKOWITZ TECHNIQUE: Three views [...] Tariq Zamora 03/19/2023 11:37 AM Dictation workstation: [id number] [facility] Work Phone: [facility] No Panel InformationOrdered By: Jose Juan De Leon on 03-19-2023 [facility] Work Phone: No Panel InformationOrdered By: Tariq Zamora on 03-19-2023 [facility] Work Phone: Vancomycin trough [Mass/Vol] on 03-19-2023 Interpretation and review of laboratory results Normal [facility] Vancomycin, Troughon 024 Vancomycin trough [Mass/Vol] 11.5 ug/mL 5.0 - 20.0 ug/mL [facility] Comment on above: Therapeutic Ranges: Peak (all ages): 30.0-40.0 ug/mL Trough (all ages): 10.0-20.0 ug/mL Vancomycin trough concentrations drawn immediately prior to the next dose at steady-state are preferred for concentration-guided monitoring of patients treated with vancomycin. Reference: Am J Health-Syst Pharm. 2020; 77(11):835-864. Vascular US PVR without exer ciseon 03-19-2023 [place] [address] [id number], Vascular Lab Report VASC US PVR WITHOUT EXERCISE Patient Name: OLI Wade Physician: [id number] Odom MD Study Date: 03/19/2023 Ordering Provider: [id number] PALOMO FARNSWORTH MRN/PID: [id number] Fellow: Technologist: James Mandel RVPedro Date of /Age: 9 1950 / 72 years Technologist 2: Camille Underwood RVT/AB Gender: M Admission Status: Inpatient Location Performed: [facility] Diagnosis/ICD: Peripheral vascular disease, unspecified-I73.9 CPT Codes: 87362 Peripheral artery MARISSA Only CONCLUSIONS: Right Lower [...] Left Brachial Pressure 140 mmHg 140 mmHg [id number] Odom MD Final Terell Almeida MD - 03/19/2023 [place] [address] [id number], Vascular Lab Report VASC US PVR WITHOUT EXERCISE Patient Name: OLI Wade Physician: [id number] Odom MD Study Date: 03/19/2023 Ordering Provider: Lynda FARNSWORTH MRN/PID: [id number] Fellow: Technologist: James Mandel RVT Date of /Age: 7 1950 years Technologist 2: Camille Underwood RVT/AB Gender: M Admission Status: Inpatient Location Performed: [facility] Diagnosis/ICD: Peripheral vascular disease, unspecified-I73.9 CPT Codes: 31582 Peripheral artery MARISSA Only CONCLUSIONS: Right Lower [...] Left Brachial Pressure 140 mmHg 140 mmHg [id number] Terell Odom MD Final [facility] Work Phone: Radiology Study observation (narrative) [facility] Work Phone: Vascular US PVR without exer ciseOrdered By: Terell Schultz on 03-19-2023 [facility] Work Phone: XR Hand - right 3 Viewson 1. No fracture or dislocation. 2. Degenerative changes, as described above. MACRO: None. Signed by: Tariq Zamora 03/19/2023 3:42 PM Dictation workstation: [id number] [facility] Interpreted By: Tariq Zamora, STUDY: XR HAND RIGHT 3+ VIEWS 03/19/2023 1:43 pm INDICATION: Signs/Symptoms:Index finger paranychion COMPARISON: None. ACCESSION NUMBER(S): [id number] ORDERING CLINICIAN: NICOLE REAVES TECHNIQUE: Three views of the right hand including AP, oblique and lateral projections were obtained. FINDINGS: There is no evidence of acute fracture or dislocation identified. Moderate to severe hypertrophic degenerative changes are seen in the 2nd distal interphalangeal joint. Pjpl-sr-yziwlved degenerative changes are seen in the 3rd distal interphalangeal joint. Mild degenerative changes are seen in the remaining interphalangeal joints. [facility] Tariq Zamora MD - 03/19/2023 Interpreted By: Tariq Zamora, STUDY: XR HAND RIGHT 3+ VIEWS 03/19/2023 1:43 pm INDICATION: Signs/Symptoms:Index finger paranychion COMPARISON: None. ACCESSION NUMBER(S): [id number] ORDERING CLINICIAN: NICOLE REAVES TECHNIQUE: Three views of the right hand including AP, oblique and lateral projections were obtained. FINDINGS: There is no evidence of acute fracture or dislocation identified. Moderate to severe hypertrophic degenerative changes are seen in the 2nd distal interphalangeal joint. Lyts-um-nyigdpya degenerative changes are seen in the 3rd distal interphalangeal joint. Mild degenerative changes are seen in the remaining interphalangeal joints. IMPRESSION: 1. No fracture or dislocation. 2. Degenerative changes, as described above. MACRO: None. Signed by: Tariq Zamora 03/19/2023 3:42 PM Dictation workstation: [id number] [facility] Work Phone: [facility] Work Phone: Radiology Study observation (narrative) [facility] Work Phone: C-reactive proteinon 024 CRP [Mass/Vol] 15.43 mg/dL High NINF - 1.00 mg/dL [facility] CRP [Mass/Vol]on 03-18-2023 Interpretation and review of laboratory results Abnormal [facility] ECG 12 leadOrdered By: Peace Kramer on 03-18-2023 Atrial Rate 101 BPM [facility] Work Phone: P Gladstone 55 degrees [facility] Work Phone: P Offset 184 ms [facility] Work Phone: P Onset 134 ms [facility] Work Phone: SD Interval 142 ms [facility] Work Phone: Q Onset 205 ms [facility] Work Phone: QRS Count 17 beats [facility] Work Phone: QRS Duration 108 ms [facility] Work Phone: QT Interval 338 ms [facility] Work Phone: QTC Calculation(Bazett) 438 ms U [facility] Work Phone: QTC Fredericia 402 ms [facility] Work Phone: R [place]stone -4 degrees [facility] Work Phone: T [place] 92 degrees [facility] Work Phone: T Offset 374 ms [facility] Work Phone: Ventricular Rate 101 BPM [facility] Work Phone: [facility] Work Phone: ECG 12 leadon 03-18-2023 Sinus [...] Josie Kramer ([id number]) on 03/18/2023 7:08:27 PM [place] Brandi Kramer APRN-HOME SERVICE TECHNICIAN - 03/18/2023 Sinus tachycardia Inferior infarct , [...] and clinical correlation Confirmed by Josie Kramer ([id number]) on 03/18/2023 7:08:27 PM [facility] Work Phone: ESR Westergren method (Bld) [Velocity]on 03-18-2023 ESR (Bld) [Velocity] 67 mm/h High 0 - 20 mm/h [facility] Interpretation and review of laboratory results Abnormal [facility] Lactateon 03-18-2023 Lactate [Moles/Vol] 1.0 mmol/L 0.4 - 2. 0 mmol/L [facility] Lactate [Moles/Vol] 2.1 mmol/L High 0.4 - 2. 0 mmol/L [facility] Lactate [Moles/Vol]on 2023 Interpretation and review of laboratory results Normal [facility] Venipuncture immediately after or during the administration of Metamizole may lead to falsely low results. Testing should be performed immediately prior to Metamizole dosing. [facility] Interpretation and review of laboratory results Abnormal [facility] Venipuncture immediately after or during the administration of Metamizole may lead to falsely low results. Testing should be performed immediately prior to Metamizole dosing. [facility] No Panel Informationon 03-18 Radiology Study observation (narrative) [facility] Work Phone: Radiology Study observation (narrative) [facility] Work Phone: ProcalcitoninOrdered By: Thao Bernal on 03-18-2023 Procalcitonin [Mass/Vol] 0.21 ng/mL High NINF - 0.07 ng/mL [facility] Procalcitonin [Mass/Vol]Orde red By: Felipe Bernal on 03-18-2023 Interpretation and review of laboratory results Abnormal [facility] Procalcitonin (PCT) results measured serially can aid [...] on immunomodulatory medications has not been evaluated. [facility] Heart TransthoracicOrdere d By: Arnold Otero on 03-18-2023 AV mn grad 3.0 [facility] Work Phone: AV pk grad 5.4 [facility] Work Phone: AV pk siddhartha 1.16 [facility] Work Phone: MV E/A ratio 0.48 [facility] Work Phone: Tricuspid annular plane systolic excursion 2.5 [facility] Work Phone: [facility] Work Phone: [place] [address] [phone], TRANSTHORACIC ECHOCARDIOGRAM REPORT Patient Name: OLI DE LA FUENTE [place] Physician: [id number] Arnold Otero MD Study Date: 03/18/2023 Ordering Provider: [id number] PALOMO FARNSWORTH MRN/PID: [id number] Fellow: Nurse: Mariana Zamudio RN Date of /Age: 9 1950 / 72 years Mobile Application Engineer: Faye Zimmerman RVT, EDWIGE Gender: M Additional Staff: Height: 185.42 cm Admit Date: 03/17/2023 Weight: 89.81 kg Admission Status: Inpatient - Routine BSA: 2.14 m2 Department Location: [address]-ICU Blood Pressure: 119 /74 mmHg Study Type: TRANSTHORACIC ECHO (TTE) COMPLETE Diagnosis/ICD: Sepsis, unspecified organism-A41.9; Severe sepsis with septic shock-R65.21 Indication: Septic Shock CPT Codes: Echo Limited-29293; Doppler Limited-90533 Patient History: Pertinent History: COPD. No previous [...] RV Major 9.0 cm TAPSE: 25.3 mm [id number] Arnold Otero MD Electronically signed on 03/18/2023 at 1:15:53 PM Final Arnold Mitchell MD - 03/18/2023 [place] [address] [phone], TRANSTHORACIC ECHOCARDIOGRAM REPORT Patient Name: OLI Wade Physician: [id number] Arnold Otero MD Study Date: 03/18/2023 Ordering Provider: [id number] PALOMO FARNSWORTH MRN/PID: [id number] Fellow: Nurse: Mariana Zamudio RN Date of /Age: 9 1950 / 72 years Mobile Application Engineer: EDWIGE Guido RVT Gender: M Additional Staff: Height: 185.42 cm Admit Date: 03/17/2023 Weight: 89.81 kg Admission Status: Inpatient - Routine BSA: 2.14 m2 Department Location: [address]-ICU Blood Pressure: 119 /74 mmHg Study Type: TRANSTHORACIC ECHO (TTE) COMPLETE Diagnosis/ICD: Sepsis, unspecified organism-A41.9; Severe sepsis with septic shock-R65.21 Indication: Septic Shock CPT Codes: Echo Limited-06322; Doppler Limited-20457 Patient History: Pertinent History: COPD. No previous [...] RV Major 9.0 cm TAPSE: 25.3 mm [id number] Arnold Otero MD Electronically signed on 03/18/2023 at 1:15:53 PM Final [facility] Work Phone: CBC W Auto Differential pane l (Bld)on 03-17-2023 Basophils (Bld) [#/Vol] 0.03 10*3/uL [facility] Basophils/100 WBC (Bld) 0.2 % 0.0 - 2.0 % [facility] Eosinophils (Bld) [#/Vol] 0.01 10*3/uL [facility] Eosinophils/100 WBC (Bld) 0.1 % 0.0 - 6.0 % [facility] Erythrocyte distribution width (RBC) [Ratio] 12.6 % 11.5 - 14.5 % [facility] Hematocrit (Bld) [Volume fraction] 43.8 % 41.0 - 52.0 % [facility] Hemoglobin (Bld) [Mass/Vol] 13.8 g/dL 13.5 - 17.5 g/dL [facility] Immature granulocytes (Bld) [#/Vol] 0.40 10*3/uL [facility] Immature granulocytes/100 WBC (Bld) 2.3 % High 0.0 - 0.9 % [facility] Comment on above: Immature Granulocyte Count (IG) includes promyelocytes, myelocytes and metamyelocytes but does not include bands. Percent differential counts (%) should be interpreted in the context of the absolute cell counts (cells/UL). Interpretation and review of laboratory results Abnormal [facility] Lymphocytes (Bld) [#/Vol] 0.92 10*3/uL [facility] Lymphocytes/100 WBC (Bld) 5.3 % 13.0 - 44.0 % [facility] MCH (RBC) [Entitic mass] 31.0 pg 26.0 - 34.0 pg [facility] MCHC (RBC) [Mass/Vol] 31.5 g/dL Low 32.0 - 36.0 g/dL [facility] MCV (RBC) [Entitic vol] 98 fL 80 - 100 fL [facility] Monocytes (Bld) [#/Vol] 1.06 10*3/uL High [facility] Monocytes/100 WBC (Bld) 6.1 % 2.0 - 10.0 % [facility] Neutrophils (Bld) [#/Vol] 14.82 10*3/uL [facility] Comment on above: Percent differential counts (%) should be interpreted in the context of the absolute cell counts (cells/uL). Neutrophils/100 WBC (Bld) 86.0 % 40.0 - 80.0 % [facility] Nucleated RBC/100 WBC (Bld) [Ratio] 0.1 % [facility] Platelets (Bld) [#/Vol] 298 10*3/uL [facility] RBC (Bld) [#/Vol] 4.45 10*6/uL Low [facility] WBC (Bld) [#/Vol] 17.2 10*3/uL [facility] CT Chest W contrast IV and C [...] Rubén Waller 03/17/2023 11:02 PM Dictation workstation: [id number] [facility] Interpreted By: Rubén Waller, STUDY: CT ANGIO CHEST FOR PULMONARY EMBOLISM; 03/17/2023 10:31 pm INDICATION: Signs/Symptoms:dyspne a. COMPARISON: Chest radiograph 03/17/2023 ACCESSION NUMBER(S): [id number] ORDERING CLINICIAN: QUINN CAMARILLO TECHNIQUE: Axial CTA [...] a. COMPARISON: Chest radiograph 03/17/2023 ACCESSION NUMBER(S): [id number] ORDERING CLINICIAN: QUINN CAMARILLO TECHNIQUE: Axial CTA [...] Rubén Waller 03/17/2023 11:02 PM Dictation workstation: [id number] [facility] Work Phone: Radiology Study observation (narrative) [facility] Work Phone: CT Chest W contrast IV and C T angiogram Pulmonary arteries for pulmonary embolus W contrast IVOrdered By: Rubén Waller on 03-17-2023 [facility] Work Phone: Comprehensive metabolic 2000 panelon 03-17-2023 Albumin BCP dye [Mass/Vol] 3.3 g/dL Low 3.4 - 5.0 g/dL [facility] ALP [Catalytic activity/Vol] 80 U/L 33 - 136 U/L [facility] ALT With P-5'-P [Catalytic activity/Vol] 18 U/L 10 - 52 U/L [facility] Comment on above: Patients treated wit h Sulfasalazine may generate falsely decreased results for ALT. Anion gap [Moles/Vol] 17 mmol/L 10 - 2 0 mmol/L [facility] AST With P-5'-P [Catalytic activity/Vol] 25 U/L 9 - 39 U/L [facility] Bilirubin [Mass/Vol] 0.7 mg/dL 0.0 - 1 .2 mg/dL [facility] Calcium [Mass/Vol] 9.3 mg/dL 8.6 - 10. 3 mg/dL [facility] Chloride [Moles/Vol] 101 mmol/L 98 - 10 7 mmol/L [facility] CO2 [Moles/Vol] 24 mmol/L 21 - 32 mmol/L [facility] Creatinine [Mass/Vol] 1.38 mg/dL High 0.50 - 1.30 mg/dL [facility] GFR/1.73 sq M.predicted among non-blacks MDRD (S/P/Bld) [Vol rate/Area] 54 mL/min/{1.73_m2} Low - PINF [facility] Comment on above: Calculations of etelvina mated GFR are performed using the 2020 CKD-EPI Study Refit equation without the race variable for the IDMS-Traceable creatinine methods. https://jasn.asnjournals.org/content/early/ASN.2020 657287 Glucose [Mass/Vol] 111 mg/dL High 74 - 99 mg/dL [facility] Interpretation and review of laboratory results Abnormal [facility] Potassium [Moles/Vol] 3.9 mmol/L 3.5 - 5.3 mmol/L [facility] Protein [Mass/Vol] 6.7 g/dL 6.4 - 8.2 g/dL [facility] Sodium [Moles/Vol] 138 mmol/L 136 - 145 mmol/L [facility] Urea nitrogen [Mass/Vol] 33 mg/dL High 6 - 23 mg/dL [facility] Critical Careon 03-17-2023 Quinn Camarillo DO 03/18/2023 8:01 AM Critical Care Performed by: Quinn Camarillo DO [...] specialty: no Care discussed with: admitting provider [facility] Work Phone: [facility] Work Phone: FLUAV and FLUBV RNA LOGAN+prob e Nom (Unsp spec)on 03-17-2023 FLUAV RNA LOGAN+probe Ql (Resp) Not detected Not Detected [facility] FLUBV RNA LOGAN+probe Ql (Resp) Not detected Not Detected [facility] This assay is an in vitro diagnostic multiplex nucleic acid amplification test for the detection and discrimination of Influenza A & B from nasopharyngeal specimens, and has been validated for use at [facility]. Negative results do not preclude Influenza A/B infections, and should not be used as the sole basis for diagnosis, treatment, or other management decisions. If Influenza A/B and RSV PCR results are negative, testing for Parainfluenza virus, Adenovirus and Metapneumovirus is routinely performed for [facility] pediatric oncology and intensive care inpatients, and is available on other patients by placing an add-on request. [facility] Lactateon 03-17-2023 Lactate [Moles/Vol] 3.4 mmol/L High 0.4 - 2. 0 mmol/L [facility] Lactate [Moles/Vol] 5.1 mmol/L Critically high 0.4 - 2.0 mmol/L [facility] Lactate [Moles/Vol]on 2023 Interpretation and review of laboratory results Abnormal [facility] Venipuncture immediately after or during the administration of Metamizole may lead to falsely low results. Testing should be performed immediately prior to Metamizole dosing. [facility] Interpretation and review of laboratory results Abnormal [facility] Venipuncture immediately after or during the administration of Metamizole may lead to falsely low results. Testing should be performed immediately prior to Metamizole dosing. [facility] Natriuretic peptide B [Mass/ Vol]on 03-17-2023 Interpretation and review of laboratory results Abnormal [facility] Natriuretic peptide B (Bld) [Mass/Vol] 202 pg/mL High 0 - 99 pg/mL [facility] <100 pg/mL - Heart failure unlikely 100-299 pg/mL - Intermediate probability of acute heart failure exacerbation. Correlate with clinical context and patient history. >=300 pg/mL - Heart Failure likely. Correlate with clinical context and patient history. BNP testing is performed using different testing methodology at [facility] than at other [facility]. Direct result comparisons should only be made within the same method. [facility] No Panel Informationon 03-17 Extra Tube Hold for add-ons. [facility] Comment on above: Auto resulted. [facility] Interpretation and review of laboratory results Normal [facility] SARS-CoV-2 (COVID-19) RNA NA A+probe Ql (Resp)on [...] and has been validated for use at [facility]. Negative results do not preclude COVID-19 infections and should not be used as the sole basis for diagnosis, treatment, or other management decisions. [facility] SARS-CoV-2 RT PCRon 03-17-19 SARS-CoV-2 (COVID-19) RNA LOGAN+probe Ql (Resp) Not detected Not Detected [facility] Tropinin I.cardiac panel Hig h sensitivity methodon 03-17-2023 Interpretation and review of laboratory results Abnormal [facility] Less than 99th percentile of normal range [...] performed using a different testing methodology at [facility] than at other [facility]. Direct result comparisons should only be made within the same method. [facility] Interpretation and review of laboratory results Abnormal [facility] Less than 99th percentile of normal range [...] performed using a different testing methodology at [facility] than at other [facility]. Direct result comparisons should only be made within the same method. [facility] Troponin I, High Sensitivity on 03-17-2023 Tropinin I.cardiac panel High sensitivity method 33 ng/L High 0 - 20 ng/L [facility] Tropinin I.cardiac panel High sensitivity method 38 ng/L High 0 - 20 ng/L [facility] Urinalysis complete W Reflex Culture panel (U)on 03-17-2023 Appearance (U) Clear Clear [facility] Bilirubin (U) [Mass/Vol] Negative NEGATIVE [facility] Color (U) Straw Straw, Yellow [facility] Glucose Auto test strip (U) [Mass/Vol] Negative NEGATIVE mg/dL [facility] Interpretation and review of laboratory results Abnormal [facility] Interpretation and review of laboratory results Normal [facility] Ketones (U) [Mass/Vol] Negative NEGAT SEUN mg/dL [facility] Leukocyte esterase Auto test strip Ql (U) Negative NEGATIVE [facility] Nitrite Auto test strip Ql (U) Negative NEGATIVE [facility] pH (U) 6.0 [pH] 5.0, 5.5, 6.0, 6.5, 7.0, 7.5, 8.0 [facility] Protein (U) [Mass/Vol] Negative NEGAT SEUN mg/dL [facility] RBC (U) [#/Vol] SMALL (1+) Abnormal NEGATIVE [facility] RBC Auto (Urine sed) [#/Area] 1-2 NONE, 1-2, 3-5 /HPF [facility] Specific gravity (U) [Rel density] 1.029 1.005 - 1.035 [facility] Urobilinogen (U) [Mass/Vol] mg/dL NINF - 2.0 mg/dL [facility] WBC Auto (Urine sed) [#/Area] NONE 1-5, NONE /HPF [facility] XR Chest Single viewon 03-17 No airspace consolidation or pleural effusion. MACRO: None Signed by: Thanh Paulino 03/17/2023 8:39 PM Dictation workstation: [id number] [facility] Interpreted By: Thanh Paulino, STUDY: XR CHEST 1 VIEW; 03/17/2023 8:15 pm INDICATION: Signs/Symptoms:cough. COMPARISON: 06/06/2020 ACCESSION NUMBER(S): [id number] ORDERING CLINICIAN: QUINN CAMARILLO FINDINGS: The cardiac silhouette is normal in size. No focal airspace consolidation or pleural effusion. No pneumothorax. MMODAL Thanh Paulino MD - 03/17/2023 Interpreted By: Thanh Paulino, STUDY: XR CHEST 1 VIEW; 03/17/2023 8:15 pm INDICATION: Signs/Symptoms:cough. COMPARISON: 06/06/2020 ACCESSION NUMBER(S): [id number] ORDERING CLINICIAN: QUINN CAMARILLO FINDINGS: The cardiac silhouette is normal in size. No focal airspace consolidation or pleural effusion. No pneumothorax. IMPRESSION: No airspace consolidation or pleural effusion. MACRO: None Signed by: Thanh Paulino 03/17/2023 8:39 PM Dictation workstation: [id number] [facility] Work Phone: Radiology Study observation (narrative) [facility] Work Phone: XR Chest Single viewOrdered By: Thanh Paulino on 03-17-2023 [facility] Work Phone: Basic metabolic 2000 panelon 03-04-2023 Anion gap [Moles/Vol] 14 mmol/L Normal 9-18 [facility] Comment on above: Order Comment: Tila perez Type: BLOOD SPECIMEN Ordering Facility: [facility] Address: [address] [place] [address] Performed By: #### 2 4321-2, 97378-2 #### [facility] CLIA [id number] [address] [place], [place] [id number] [place] [facility] Calcium [Mass/Vol] 9.8 mg/dL Normal 8.5-10.2 [facility] Comment on above: Order Comment: Tila perez Type: BLOOD SPECIMEN Ordering Facility: [facility] Address: [address] [place] [address] Performed By: #### 2 4321-2, 44119-3 #### [facility] CLIA [id number] [address] [place] [address] [place] Chloride [Moles/Vol] 103 mmol/L Normal 97-105 [facility] Comment on above: Order Comment: Tila perez Type: BLOOD SPECIMEN Ordering Facility: [facility] Address: [address] [place] [address] Performed By: #### 2 4321-2, 68888-9 #### [facility] CLIA [id number] [address] [place] [address] [place] CO2 [Moles/Vol] 26 mmol/L Normal 22-30 [facility] Comment on above: Order Comment: Tila perez Type: BLOOD SPECIMEN Ordering Facility: [facility] Address: [address] [place] [address] Performed By: #### 2 4321-2, 57567-2 #### [facility] CLIA [id number] [address] STATES OF [facility] Creatinine [Mass/Vol] 1.29 mg/dL High 0.73-1.22 [facility] Comment on above: Order Comment: Tila perez Type: BLOOD SPECIMEN Ordering Facility: [facility] Address: [address] [place] [address] Performed By: #### 2 4321-2, 60443-8 #### [facility] CLIA [id number] [address] Creatinine and Glomerular filtration rate.predicted panel (S/P/Bld) 58 mL/min/1.73m??? Low >=60 [facility] Comment on above: Order Comment: Tila perez Type: BLOOD SPECIMEN Ordering Facility: [facility] Address: [address] [place] [address] Result Comment: Etelvina mated Glomerular Filtration Rate [...] actual GFR. Performed By: #### 2 4321-2, 44953-6 #### [facility] CLIA [id number] 1000 [place] [address] [place] Glucose [Mass/Vol] 83 mg/dL Normal 74-99 [facility] Comment on above: Order Comment: Tila perez Type: BLOOD SPECIMEN Ordering Facility: [facility] Address: [address] [place] [address] Result Comment: The [employer] Association (ADA) provides guidance for cutoff [...] Standards of Medical Care in Diabetes 2016, [employer]. Diabetes Care. 2016.39(Suppl 1). Performed By: #### 2 4321-2, 71988-8 #### [facility] CLIA [id number] 1000 [place] [address] [place] Potassium [Moles/Vol] 4.8 mmol/L Normal 3.7-5.1 [facility] Comment on above: Order Comment: Tila perez Type: BLOOD SPECIMEN Ordering Facility: [facility] Address: [address] [place] [address] Performed By: #### 2 4321-2, 53577-1 #### [facility] CLIA [id number] 1000 [place] [address] [place] Sodium [Moles/Vol] 143 mmol/L Normal 136-144 [facility] Comment on above: Order Comment: Tila perez Type: BLOOD SPECIMEN Ordering Facility: [facility] Address: [address] [place] [address] Performed By: #### 2 4321-2, 81472-5 #### [facility] CLIA [id number] [address] [place] [address] [place] Urea nitrogen [Mass/Vol] 27 mg/dL High - [facility] Comment on above: Order Comment: Speci men Type: BLOOD SPECIMEN Ordering Facility: [facility] Address: [place] [id number] Performed By: #### 2 4321-2, 53718-3 #### [facility] CLIA [id number] [address] OF [place] CNOVon 03-04-2023 CNOV Office Visit (LAURYN ) OLI DE LA FUENTE ([id number]) 1950 M Date Time Provider Department 03/04/23 1:40 PM IDANIA FRAIRE During your visit today, we recorded the following information about you: Pulse Blood pressure Weight 73/minute 112/68 88.7 kg Idania Fraire DO 03/04/2023 2:46 PM Signed [facility] SECTION OF [facility] OUTPATIENT VISIT DATE March 04, 2023 HISTORY OF PRESENT ILLNESS: Mr. De La Fuente is a 72 year old male. The patient presents to establish [facility] care due to history of coronary disease [...] dysuria, hematur (more content not included)... Normal [facility] EKGon 03-04-2023 Electrocardiogram Ventricular Rate : 6 9 BPM Atrial Rate : 69 BPM P-R Interval : 172 ms QRS Duration : 100 ms Q-T Interval : 368 ms QTC Calculation(Bazett) : 394 ms Calculated P Gladstone : 69 degrees Calculated R Glad[place] : 26 degrees Calculated T Gladstone : 111 degrees NORMAL SINUS RHYTHM INFERIOR INFARCT , AGE UNDETERMINED ST and T WAVE ABNORMALITY, CONSIDER LATERAL ISCHEMIA ABNORMAL ECG WHEN COMPARED WITH ECG OF 12-NOV-1999 08:45, INFERIOR INFARCT IS NOW PRESENT T WAVE INVERSION NOW EVIDENT IN LATERAL LEADS Confirmed by MD FRAIRE GREGORY () on 03/10/2023 10:37:21 AM Also confirmed by MD FRAIRE GREGORY (), rewrite editor LEIGHTON TOLBERT ([id number]) on 12/18/2023 8:08:08 AM NAME : OLI DE LA FUENTE PID : [id number] : 1950 Gender : Male Race : [...] Also confirmed by MD FRAIRE GREGORY (), rewrite editor LEIGHTON TOLBERT ([id number]) on 12/18/2023 8:08:08 AM Test Reason : Location : 9 : [facility] Overread By : MD FRAIRE GREGORY Edited By : LEIGHTON TOLBERT Referred By : IDANIA FRAIRE Acquired by : [facility] NT-proBNP [facility] 03-04 Natriuretic peptide.B prohormone N-Terminal [Mass/Vol] 545 pg/mL High <125 [facility] Comment on above: Order Comment: Speci men Type: BLOOD SPECIMEN Ordering Facility: [facility] Address: [address] [place] [address] Performed By: #### 2 4321-2, 52381-7 #### [facility] CLIA [id number] [address] [place] [address] OF [place] Progress Noteon 04-18-2022 Progress Note This is the nurse calling from [facility] on behalf of Radha Rooney MD. Upon [...] 30 days. Patient is not Mychart active. [facility] 04-17-2022 [facility] Telephone (AGCARDHWG ) OLI DE LA FUENTE ([id number]) 1950 M Date Time Provider Department 04/17/22 MARK PHILIP AGCARDHWG During your visit today, we recorded the following information about you: Deidre Russo LPN 04/17/2022 2:56 PM Signed Patient's daughter called [facility] to ask that the basic metabolic panel from 04/15/2022 be reviewed? Any recommendations? AMBER Tiwari RN 04/23/2022 11:58 AM Signed Daughter Ashtyn calls to report pt is short of breath with and without exertion. She reports increase in abd girth. Pt is unsure of weight gain. Pt's lasix has been on hold since 04/08/22 due to renal insufficiency. BUN and Cr have normalized on 04/15/22 BMP. MURIEL Gonsales APRN.HOME SERVICE TECHNICIAN 04/23/2022 2:55 PM Addendum I recommend taking 10 lasix mg once daily as needed for shortness of breath, weight gain, abdominal distention. I recommend establishing with the heart failure clinic for lifestyle management of volume: salt restriction, fluid restriction, daily weights, instructions on how to take Lasix as needed, so that we can avoid fluid gain without stressing kidneys. Thank you, Kailey Snow, RICHIE.HOME SERVICE TECHNICIAN Antoinette Diaz RN 04/23/2022 3:24 PM Signed Spoke to daughter and informed of below. Reviewed CHF diet/ restrictions with her. Voiced understanding. States she will call and set up appt for CHF clinic. Antoinette Diaz RN Allergies As of Date: 04/17/2022 Noted Allergy Reaction CODEINE 05/26/2017 16 - Unknown Date Reviewed: 03/11/2022 Reviewed by: Mark Philip MD - Fully Assessed Reason for Visit: Patient Question [5627] Primary Visit Diagnosis:NICM (nonischemic cardiomyopathy) ([facility]) [I42.8] Order(s):CONSULT TO CHRONIC CARE [[id number]] Order #: [id number]: 1 Prescriptions as of 04/23/2022 - furosemide [...] NOT stop taking without talking to your trailer steerer. - levothyroxine (SYNTHROID) 75 mcg tablet Take [...] artery disease) [I25.10] Acute CVA (cerebrovascular accident) ([facility]) [I63*05/30/2017 Urinary hesitancy [R39.11] 05/30/2017 Paroxysmal atrial fibrillation (HCC) [I48.0] 11/20/2020 Post PTCA [Z98.61] 11/20/2020 SOB (shortness of breath) [R06.02] 03/11/2022 Diastolic congestive heart failure (HCC) [I50.3*03/11/2022 Encounter Status:Closed by KAILEY SNOW on 04/23/22 [facility] CNPSera 04-08-2022 CNPN Telephone (AGCARDPOB ) OLI DE LA FUENTE ([id number]) 1950 M Date Time Provider Department 04/08/22 MARK PHILIP AGCARDPOeTutor During your visit today, we recorded the [...] NOT stop taking without talking to your trailer steerer. - levothyroxine (SYNTHROID) 75 mcg tablet Take [...] artery disease) [I25.10] Acute CVA (cerebrovascular accident) ([facility]) [I63*05/30/2017 Urinary hesitancy [R39.11] 05/30/2017 Paroxysmal atrial fibrillation (HCC) [I48.0] 11/20/2020 Post PTCA [Z98.61] 11/20/2020 SOB (shortness of breath) [R06.02] 03/11/2022 Diastolic congestive heart failure (HCC) [I50.3*03/11/2022 Encounter Status:Closed by DESTINI SANDOVAL on 04/08/22 [facility] CARD CATH DIAGNOSTICon 03-29 CARD CATH DIAGNOSTIC Site Id: [facility] Lab #: DEFAULT Study Date: 03/29/2022 Start Time: End Time: Name Duty Mark Philip MD PROC 1 Key Bryant PROC SCRUB 1 Zane Ochoa RN PROC CIRC 1 Gideon Robertson RN PROC RECORD 1 Daniel Valencia RT PROC BEHAVIORAL HEALTH PROFESSIONAL 1 + + PATIENT INFORMATION + + Name: [facility] 1950 Age: 71 years Gender: [...] Diabetes Mellitu (more content not included)... Normal [facility] HISTORY PHYSICALon HISTORY PHYSICAL HNO ID: [id number] Author: Mark Philip MD Service: Cardiovascular Surgery [...] attached. SIGNATURE: Mark Philip MD PATIENT NAME: Oli De La Fuente DATE: March 29, 2022 TIME: 10:37 AM Normal [facility] No Panel Informationon 03-29 Additional Comments (POCT) Venous 60%-85%; Arterial 95%-98% [facility] Comment (POCT) No anatomical site given %HBO2 ref range [facility] O2 SATURATION (POC)on 2022 %HbO2 (Oxyhemoglobin)(POCT) 96.2 % [facility] Hemoglobin (Bld) [Mass/Vol] 13.2 g/dL Abnormal 13.5 - 17.5 g/dL [facility] %HbO2 (Oxyhemoglobin)(POCT) 62.1 % [facility] Hemoglobin (Bld) [Mass/Vol] 12.5 g/dL Abnormal 13.5 - 17.5 g/dL [facility] %HbO2 (Oxyhemoglobin)(POCT) 17.1 % [facility] Additional Comments (POCT) Venous 60%-85%; Arterial 95%-98% [facility] Comment (POCT) No anatomical site given %HBO2 ref range [facility] Hemoglobin (Bld) [Mass/Vol] 10.0 g/dL Abnormal 13.5 - 17.5 g/dL [facility] %HbO2 (Oxyhemoglobin)(POCT) 64.6 % [facility] Additional Comments (POCT) Venous 60%-85%; Arterial 95%-98% [facility] Comment (POCT) No anatomical site given %HBO2 ref range [facility] Hemoglobin (Bld) [Mass/Vol] 13.2 g/dL Abnormal 13.5 - 17.5 g/dL [facility] Basic metabolic 2000 panelon 03-11-2022 Anion gap [Moles/Vol] 12 mmol/L 9 - 18 mmol/L [facility] Calcium [Mass/Vol] 8.8 mg/dL 8.5 - 10. 2 mg/dL [facility] Chloride [Moles/Vol] 104 mmol/L 97 - 10 5 mmol/L [facility] CO2 [Moles/Vol] 21 mmol/L Low 22 - 30 mmol/L [facility] Creatinine [Mass/Vol] 1.02 mg/dL 0.73 - 1.22 mg/dL [facility] Estimated Glomerular Filtration Rate 78 mL/min/1.73m >=60 mL/min/1.73m [facility] Glucose [Mass/Vol] 90 mg/dL 74 - 99 mg/dL [facility] Potassium [Moles/Vol] 4.1 mmol/L 3.7 - 5.1 mmol/L [facility] Sodium [Moles/Vol] 137 mmol/L 136 - 144 mmol/L [facility] Urea nitrogen [Mass/Vol] 19 mg/dL 9 - 24 mg/dL [facility] CBC panel Auto (Bld)on 03-11 Erythrocyte distribution width (RBC) [Ratio] 12.5 % 11.5 - 15.0 % [facility] Hematocrit (Bld) [Volume fraction] 45.5 % 39.0 - 51.0 % [facility] Hemoglobin (Bld) [Mass/Vol] 14.6 g/dL 13.0 - 17.0 g/dL [facility] MCH (RBC) [Entitic mass] 30.7 pg 26.0 - 34.0 pg [facility] MCHC (RBC) [Mass/Vol] 32.1 g/dL 30.5 - 36.0 g/dL [facility] MCV (RBC) [Entitic vol] 95.6 fL 80.0 - 100.0 fL [facility] Nucleated RBC (Bld) [#/Vol] <0.01 k/uL [facility] Platelet mean volume (Bld) [Entitic vol] 8.5 fL Low 9.0 - 12.7 fL [facility] Platelets (Bld) [#/Vol] 261 10*3/uL 150 - 400 k/uL [facility] RBC (Bld) [#/Vol] 4.76 10*6/uL 4.20 - 6.0 0 m/uL [facility] WBC (Bld) [#/Vol] 6.98 10*3/uL 3.70 - 11. 00 k/uL [facility] CNPNon 03-11-2022 CNPN Telephone ([facility]) OLI DE LA FUENTE ([id number]) 1950 M Date Time Provider Department 1/9/MARK GOLDSTEIN During your visit today, we recorded the following information about you: Cira Helms [facility] 03/11/2022 11:33 AM Addendum Schedule [facility] on 03/29/[address] Renee Sandoval RN [...] to the Heart and Vascular Entrance at [facility] at the time assigned in a 03/28/22 phone call from the oil laboratory analyst staff. Call will be between 2:00-5:00 pm. [...] Everyone is expected to arrive wearing masks. -greenhouse laborer policy is you are not to be alone the first evening. -Any questions or concerns please contact our office at [phone] (opt #3 Nursing). Destini Sandoval RN Allergies [...] NOT stop taking without talking to your trailer steerer. - levothyroxine (SYNTHROID) 75 mcg tablet Take [...] Urinary hesitancy [R39.11] 05/30/2017 Paroxysmal atrial fibrillation ([facility]) [I48.0] 11/20/2020 Post PTCA [Z98.61] 11/20/2020 SOB (shortness of breath) [R06.02] 03/11/2022 Diastolic congestive heart failure (HCC) [I50.3*03/11/2022 Encounter Status:Closed by JAYLYN NAPIER on 03/12/22 [facility] Absolute lymphocyte counton 02-11-2022 Lymphocytes Auto (Unsp spec) [#/Vol] 1.06 10*3/uL 0.83-4.51 [facility] Work Phone: Basophil percentageon 2021 Basophils/100 WBC (Bld) 0.2 % 0-1 [facility] Work Phone: Chloride [Moles/Vol] 106 mmol/L 98-107 [facility] Work Phone: Eosinophils/100 WBC (Bld) 0.1 % 0-5 [facility] Work Phone: Glucose [Mass/Vol] 77 mg/dL 74-106 [facility] Work Phone: Neutrophils (Bld) [#/Vol] 8.6 10*3/uL 2.0-7.7 [facility] Work Phone: Neutrophils/100 WBC (Bld) 84.0 % 47-70 [facility] Work Phone: Potassium [Moles/Vol] 3.8 mmol/L 3.5-5.1 [facility] Work Phone: Sodium [Moles/Vol] 141 mmol/L 136-145 [facility] Work Phone: WBC (Bld) [#/Vol] 10.2 10*3/uL 4.4-11.0 [facility] Work Phone: Blood erythrocytes count (nu mber/volume)on 02-11-2022 RBC (Bld) [#/Vol] 5.12 10*6/uL 4.6-6.2 [facility] Work Phone: Blood hemoglobin measurement (mass/volume)on 02-11-2022 Hemoglobin (Bld) [Mass/Vol] 15.8 g/dL 13.0-16.5 [facility] Work Phone: Blood lymphocytes/100 leukoc yteson 02-11-2022 Lymphocytes/100 WBC (Bld) 10.4 % 19-41 [facility] Work Phone: Blood monocytes/100 leukocyt eson 02-11-2022 Monocytes/100 WBC (Bld) 4.2 % 0-10 [facility] Work Phone: Blood platelet mean volumeon 02-11-2022 Platelet mean volume (Bld) [Entitic vol] 8.7 fL 6.2-12.0 [facility] Work Phone: Determination of erythrocyte mean corpuscular volume (MCV)on 02-11-2022 MCV (RBC) [Entitic vol] 95.5 fL 80-94 [facility] Work Phone: Hematocrit Auto (Bld) [Volum e fraction]on 02-11-2022 Hematocrit (Bld) [Volume fraction] 48.9 % 40-54 [facility] Work Phone: Laboratory - Chemistry and C hemistry - challengeon 02-11-2022 CO2 [Moles/Vol] 28.0 mmol/L 21.0-32.0 [facility] Work Phone: Urea nitrogen/Creatinine [Mass ratio] 17.2 mg/mg 10-20 [facility] Work Phone: [phone] Laboratory - Hematology and Cell countson 02-11-2022 Erythrocyte distribution width (RBC) [Entitic vol] 46.8 fL 35.1-43.9 [facility] Work Phone: [phone] Erythrocyte distribution width (RBC) [Ratio] 13.3 % 11.6-14.6 [facility] Work Phone: [phone] Immature granulocytes/100 WBC (Bld) 1.100 % 0.0-0.9 [facility] Work Phone: [phone] Comment on above: IG% - Immature Granu locytes (promyelocytes, myelocytes and metamyelocytes) > 1% indicates that a LEFT SHIFT is Present. MCH (RBC) [Entitic mass] 30.9 pg 27.0-32.0 [facility] Work Phone: [phone] Nucleated RBC/100 WBC (Bld) [Ratio] 0 % 0-5 [facility] Work Phone: [phone] MCHC Auto (RBC) [Mass/Vol]on 02-11-2022 MCHC (RBC) [Mass/Vol] 32.3 g/dL 32-36 [facility] Work Phone: [phone] No Panel Informationon 02-11 Estimated Creatinine Clearance Calc 60.94 ml/min [facility] Work Phone: [phone] Estimated GFR (MDRD) Amer 75 mL/min >60 [facility] Work Phone: [phone] Comment on above: GFR Calc Estimated GFR (MDRD) Non-Af Amer 62 mL/min >60 [facility] Work Phone: [phone] Comment on above: Non- GFR Calc Platelets bldon 02-11-2022 Platelets (Bld) [#/Vol] 226 10*3/uL 150-450 [facility] Work Phone: [phone] Serum or plasma calcium lida urement (mass/volume)on 02-11-2022 Calcium [Mass/Vol] 8.9 mg/dL 8.5-10.1 [facility] Work Phone: Serum or plasma creatinine m easurement (mass/volume)on 02-11-2022 Creatinine [Mass/Vol] 1.22 mg/dL 0.70-1.30 [facility] Work Phone: Comment on above: The validity of the calculated GFR & GFRAA in patients over 70 years has not been determined. Clinical correlation is essential. Serum or plasma urea nitroge n measurement (mass/volume)on 02-11-2022 Urea nitrogen [Mass/Vol] 21 mg/dL 7-18 [facility] Work Phone: Thin prep Papanicolaou smear with manual screeningon 02-11-2022 Thin prep Papanicolaou smear with manual screening 7 5-15 [facility] Work Phone: CNPNon 08-27-2021 CNPN Telephone (AGCARDPOB ) OLI DE LA FUENTE ([id number]) 1950 M Date Time Provider Department 08/27/21 MARK PHILIP AGCARDPOB During your visit today, we recorded the following information about you: Silvia Casas 08/27/2021 1:19 PM Signed Rec'd vm from pt - pt's appt w/ Dr. Philip @ [facility] canceled and rescheduled to next March, called for sooner appt @ [facility]. Called pt - nothing sooner @ [facility] available Pt advised he will call [facility] again to see about cancelations Silvia Casas August 27, 2021 1:18 PM Allergies As of Date: 08/27/2021 Noted Allergy Reaction CODEINE 05/26/2017 16 - Unknown Date Reviewed: 01/22/2021 Reviewed by: Dyan Fleming RT(R) - Partially Assessed Reason for Visit: [...] NOT stop taking without talking to your trailer steerer. - nitroglycerin sublingual (NITROSTAT) 0.4 mg SL [...] (chronic obstructive pulmonary disease) (H*08/18/2009 05/28/2017 Stroke ([facility]) [I63.9] Primary hypertension [I10] Heart attack (HCC) [I21.9] 05/28/2017 Chronic obstructive pulmonary disease (COPD) (H* 05/28/2017 Chest pain [R07.9] 05/27/2017 05/28/2017 NSTEMI (non-ST elevated myocardial infarction) *05/28/2017 UTI (urinary tract infection) [N39.0] 05/28/2017 HLD (hyperlipidemia) [E78.5] 05/28/2017 CAD (coronary artery disease) [I25.10] Acute CVA (cerebrovascular accident) ([facility]) [I63*05/30/2017 Urinary hesitancy [R39.11] 05/30/2017 Paroxysmal atrial fibrillation (HCC) [I48.0] 11/20/2020 Post PTCA [Z98.61] 11/20/2020 Encounter Status:Closed by SILVIA CASAS on 08/27/21 Normal [facility] Absolute lymphocyte counton 08-24-2021 Lymphocytes Auto (Unsp spec) [#/Vol] 1.39 10*3/uL 0.83-4.51 [facility] Work Phone: Basophil percentageon 2021 Basophils/100 WBC (Bld) 0.6 % 0-1 [facility] Work Phone: Eosinophils/100 WBC (Bld) 1.5 % 0-5 [facility] Work Phone: Neutrophils (Bld) [#/Vol] 4.4 10*3/uL 2.0-7.7 [facility] Work Phone: Neutrophils/100 WBC (Bld) 66.6 % 47-70 [facility] Work Phone: WBC (Bld) [#/Vol] 6.7 10*3/uL 4.4-11.0 [facility] Work Phone: Blood erythrocytes count (nu mber/volume)on 08-24-2021 RBC (Bld) [#/Vol] 5.51 10*6/uL 4.6-6.2 [facility] Work Phone: Blood hemoglobin measurement (mass/volume)on 08-24-2021 Hemoglobin (Bld) [Mass/Vol] 14.2 g/dL 13.0-16.5 [facility] Work Phone: Blood lymphocytes/100 leukoc yteson 08-24-2021 Lymphocytes/100 WBC (Bld) 20.9 % 19-41 [facility] Work Phone: Blood monocytes/100 leukocyt eson 08-24-2021 Monocytes/100 WBC (Bld) 9.9 % 0-10 [facility] Work Phone: Blood platelet mean volumeon 08-24-2021 Platelet mean volume (Bld) [Entitic vol] 8.8 fL 6.2-12.0 [facility] Work Phone: [phone] Determination of erythrocyte mean corpuscular volume (MCV)on 08-24-2021 MCV (RBC) [Entitic vol] 84.4 fL 80-94 [facility] Work Phone: [phone] Hematocrit Auto (Bld) [Volum e fraction]on 08-24-2021 Hematocrit (Bld) [Volume fraction] 46.5 % 40-54 [facility] Work Phone: [phone] Laboratory - Hematology and Cell countson 08-24-2021 Erythrocyte distribution width (RBC) [Entitic vol] 51.9 fL 35.1-43.9 [facility] Work Phone: [phone] Erythrocyte distribution width (RBC) [Ratio] 17.2 % 11.6-14.6 [facility] Work Phone: [phone] Immature granulocytes/100 WBC (Bld) 0.500 % 0.0-0.9 [facility] Work Phone: [phone] Comment on above: IG% - Immature Granu locytes (promyelocytes, myelocytes and metamyelocytes) > 1% indicates that a LEFT SHIFT is Present. MCH (RBC) [Entitic mass] 25.8 pg 27.0-32.0 [facility] Work Phone: Nucleated RBC/100 WBC (Bld) [Ratio] 0 % 0-5 [facility] Work Phone: [phone] MCHC Auto (RBC) [Mass/Vol]on 08-24-2021 MCHC (RBC) [Mass/Vol] 30.5 g/dL 32-36 [facility] Work Phone: [phone] Platelets bldon 08-24-2021 Platelets (Bld) [#/Vol] 252 10*3/uL 150-450 [facility] Work Phone: Provider Note - ED v3on 03-03 Provider Note - ED v3 Provider Note: Chart Review: HISTORY OF PRESENTING ILLNESS OLI is a 70 year old Male and [...] SIGNS: T PRBP SpO2O2(LPM) %FiO2 Method 17-Mar-2021 14:27:00-36.524163/97 RR 16. Initial SpO2 91%; recheck 97% [...] some temporary improvement in sxs; no other [id number] medications or home remedies for symptom management. [...] harsh, semi-product (more content not included)... Normal [facility] APTTon 06-06-2020 aPTT Coag (Bld) [Time] 28 s Normal 25 - 35 [facility] Comment on above: Result Comment: THE APTT IS NO LONGER USED FOR MONITORING UNFRACTIONATED HEPARIN THERAPY. FOR MONITORING HEPARIN THERAPY, USE THE HEPARIN ASSAY. Performed By: #### A PTT ####[place] [id number] CBC AND DIFFERENTIALon 06-06 Basophils (Bld) [#/Vol] 0.00 10*3/uL Normal 0.00 - 0.1 0 [facility] Comment on above: Performed By: #### C BCDF #### [address] [address] Basophils/100 WBC (Bld) 0.6 % Normal 0.0 - 2.0 [facility] Comment on above: Performed By: #### C BCDF #### [address] [address] Eosinophils (Bld) [#/Vol] 0.20 10*3/uL Normal 0.00 - 0.40 [facility] Comment on above: Performed By: #### C BCDF #### [address] [address] Eosinophils/100 WBC (Bld) 3.6 % Normal 0.0 - 6.0 [facility] Comment on above: Performed By: #### C BCDF #### [address] [address] Erythrocyte distribution width (RBC) [Ratio] 13.2 % Normal 11.5 - 14.5 [facility] Comment on above: Performed By: #### C BCDF #### [address] [address] Hematocrit (Bld) [Volume fraction] 46.7 % Normal 41.0 - 52.0 [facility] Comment on above: Performed By: #### C BCDF #### [address] [address] Hemoglobin (Bld) [Mass/Vol] 15.3 g/dL Normal 13.5 - 17.5 [facility] Comment on above: Performed By: #### C BCDF #### [address] [address] Lymphocytes (Bld) [#/Vol] 1.00 10*3/uL Normal 0.80 - 3.00 [facility] Comment on above: Performed By: #### C BCDF #### [address] [address] Lymphocytes/100 WBC (Bld) 19.6 % Normal 13.0 - 44.0 [facility] Comment on above: Performed By: #### C BCDF #### [address] [address] MCHC (RBC) [Mass/Vol] 32.6 g/dL Normal 32.0 - 36.0 [facility] Comment on above: Performed By: #### C BCDF #### [address] [address] MCV (RBC) [Entitic vol] 94 fL Normal 80 - 100 [facility] Comment on above: Performed By: #### C BCDF #### [address] [address] Monocytes (Bld) [#/Vol] 0.50 10*3/uL Normal 0.05 - 0.8 0 [facility] Comment on above: Performed By: #### C BCDF #### [address] [address] Monocytes/100 WBC (Bld) 9.1 % Normal 2.0 - 10.0 [facility] Comment on above: Performed By: #### C BCDF #### [address] [address] Neutrophils (Bld) [#/Vol] 3.60 10*3/uL Normal 1.60 - 5.50 [facility] Comment on above: Result Comment: Perc ent differential counts (%) should be interpreted in the context of the absolute cell counts (cells/L). Performed By: #### C BCDF #### [address] [address] Neutrophils/100 WBC (Bld) 67.1 % Normal 40.0 - 80.0 [facility] Comment on above: Performed By: #### C BCDF #### [address] [address] NUCLEATED RBC 0.2 /100 WBC Normal [facility] Comment on above: Performed By: #### C BCDF #### [address] [address] Platelets (Bld) [#/Vol] 236 10*3/uL Normal 150 - 450 [facility] Comment on above: Performed By: #### C BCDF #### [address] [address] RBC 4.98 x10E12/L Normal 4.50 - 5.90 [facility] Comment on above: Performed By: #### C BCDF #### [address] [address] WBC (Bld) [#/Vol] 5.3 10*3/uL Normal 4.4 - 11.3 [facility] Comment on above: Performed By: #### C BCDF #### [address] [address] CHEST 1 VIEWon 06-06-2020 CHEST 1 VIEW Patient Name: OLI DE LA FUENTE STUDY: CHEST 1 VIEW; 06/06/2020 10:56 am INDICATION: CVA. COMPARISON: 09/22/2019 ACCESSION NUMBER(S): [id number] ORDERING CLINICIAN: LATANYA ABEBE FINDINGS: Hyperinflation. Atherosclerotic calcification. No focal infiltrate. Lungs are well inflated IMPRESSION: 1. Hyperinflation. No acute infiltrate. Electronically signed by: MIQUEL JENKINS MD Normal [facility] COMPREHENSIVE PANELon 2020 Albumin [Mass/Vol] 3.5 g/dL Normal 3.4 - 5.0 [facility] Comment on above: Performed By: #### C MP #### [address] [address] ALP [Catalytic activity/Vol] 56 U/L Normal 33 - 136 [facility] Comment on above: Performed By: #### C MP #### [address] [address] ALT [Catalytic activity/Vol] 12 U/L Normal 10 - 52 [facility] Comment on above: Result Comment: Jaqueline ents treated with Sulfasalazine may generate falsely decreased results for ALT. Performed By: #### C MP #### [address] [address] Anion gap [Moles/Vol] 9 mmol/L Low 10 - 20 [facility] Comment on above: Performed By: #### C MP #### [address] [address] AST [Catalytic activity/Vol] 17 U/L Normal 9 - 39 [facility] Comment on above: Performed By: #### C MP #### [address] [address] Bilirubin [Mass/Vol] 0.6 mg/dL Normal 0.0 - 1.2 [facility] Comment on above: Performed By: #### C MP #### [address] [address] Calcium [Mass/Vol] 8.4 mg/dL Low 8.6 - 10.3 [facility] Comment on above: Performed By: #### C MP #### [address] [address] Chloride [Moles/Vol] 106 mmol/L Normal 98 - 107 [facility] Comment on above: Performed By: #### C MP #### [address] [address] Creatinine [Mass/Vol] 1.08 mg/dL Normal 0.50 - 1.30 [facility] Comment on above: Performed By: #### C MP #### [address] [address] GFR- AM. >60 Normal >60 [facility] Comment on above: Result Comment: CALC ULATIONS OF ESTIMATED GFR ARE PERFORMED USING THE MDRD STUDY EQUATION FOR THE IDMS-TRACEABLE CREATININE METHODS. CLIN CHEM 2007;53:766-72 Performed By: #### C MP #### [address] [address] GFR-NON AM. >60 Normal >60 [facility] Comment on above: Performed By: #### C MP #### [address] [address] Glucose [Mass/Vol] 93 mg/dL Normal 74 - 99 [facility] Comment on above: Performed By: #### C MP #### [address] [address] HCO3 (Bld) [Moles/Vol] 25 mmol/L Normal 21 - 32 [facility] Comment on above: Performed By: #### C MP #### [address] [address] Potassium [Moles/Vol] 4.1 mmol/L Normal 3.5 - 5.3 [facility] Comment on above: Performed By: #### C MP #### [address] [address] Protein [Mass/Vol] 5.7 g/dL Low 6.4 - 8.2 [facility] Comment on above: Performed By: #### C MP #### [address] [address] Sodium [Moles/Vol] 136 mmol/L Normal 136 - 145 [facility] Comment on above: Performed By: #### C MP #### [address] [address] Urea nitrogen [Mass/Vol] 16 mg/dL Normal 6 - 23 [facility] Comment on above: Performed By: #### C MP #### [address] [address] CORONAVIRUS 2019, SCREEN ASY MPTOMATICon 06-06-2020 SARS-CoV-2 (COVID-19) RNA LOGAN+probe Ql (Unsp spec) Not detected Normal Not Detected [facility] Comment on above: Result Comment: . This test has received FDA Emergency Use Authorization (EUA) and has been verified by [facility]. This test is only authorized for the duration of time that circumstances exist to justify the authorization of the emergency use of in vitro diagnostic tests for the detection of SARS-CoV-2 virus and/or diagnosis of COVID-19 infection under section 564(b)(1) of the Act, 21 U.S.C. 360bbb-3(b)(1), unless the authorization is terminated or revoked sooner. [facility] is certified under CLIA-88 as qualified to perform high complexity testing. Testing is performed in the [facility] laboratory located at [address] [place] [address]. SARS-CoV-2/Flu/RSV Multiplex Test: Fact sheet for providers: https://www.fda.gov/media/917814/download Fact sheet for patients: https://www.fda.gov/media/509883/download Performed By: #### C OVSC #### [place] [address] Lab Specimen Source Nasal, Nasopharyngeal Normal [facility] Comment on above: Performed By: #### C OVSC #### [place] [address] Covid 19 Resultson SARS-CoV-2 (COVID-19) RNA LOGAN+probe Ql (Unsp spec) [...] You may also be contacted by the [facility] to see if any of your [...] or Naproxen (Aleve) can also be used. Dyrl-qtp-unrjvgc cough and cold medicines can be used according to the instructions on the package. Some nqqe-yor-ookudzc medicines also contain acetaminophen. Make sure you [...] water are not available, use alcohol-based hand radiographic technologist. Avoid touching your eyes, nose, and mouth [...] 24 lianet (more content not included)... Normal [facility] GLUCOSE-POCTon 06-06-2020 Glucose [Mass/Vol] 78 mg/dL Normal 74 - 99 [facility] Comment on above: Performed By: #### G THOMAS #### [address] BRAIN ATTACK ANGIO HEA D W/O-W CONTRAST AND POST PROCon 06-06-[address] BRAIN ATTACK ANGIO HEAD W/O-W CONTRAST AND POST PROC Patient Name: OLI DE LA FUENTE STUDY: NR CT BRAIN ATTACK ANGIO NECK W CONTRAST AND POST PROC; CT BRAIN ATTACK ANGIO HEAD W/O-W CONTRAST AND POST PROC ; 06/06/2020 10:26 am INDICATION: STROKE SX. COMPARISON: None. ACCESSION NUMBER(S): [id number]; [id number] ORDERING CLINICIAN: EVANGELISTA COOK TECHNIQUE: Unenhanced CT [...] vessels. Electronically signed by: DEVIN ALMONTE MD [facility] NR CT BRAIN ATTACK ANGIO NEC K W CONTRAST AND POST PROCon 06-06-[address] BRAIN ATTACK ANGIO NECK W CONTRAST AND POST PROC Patient Name: OLI DE LA FUENTE STUDY: NR CT BRAIN ATTACK ANGIO NECK W CONTRAST AND POST PROC; CT BRAIN ATTACK ANGIO HEAD W/O-W CONTRAST AND POST PROC ; 06/06/2020 10:26 am INDICATION: STROKE SX. COMPARISON: None. ACCESSION NUMBER(S): [id number]; [id number] ORDERING CLINICIAN: EVANGELISTA COOK TECHNIQUE: Unenhanced CT [...] Electronically signed by: DEVIN ALMONTE MD Normal [facility] PT/INRon 06-06-2020 PT Coag (PPP) [Time] 14.9 s High 10.1 - 13.3 [facility] Comment on above: Performed By: #### P TINR ####[place] [id number] PT, INR 1.3 High 0.9 - 1.1 [facility] Comment on above: Performed By: #### P TINR ####[place] [id number] Provider Note - ED v2on 04-0 Provider [...] 2 years ago. He was treated at [facility]. The patient is unable to give history [...] assessment is 8. HISTORY OF PRESENTING ILLNESS OLI is a 69 year old Male and was seen by me at 06-Jun-2020 10:20 for a chief complaint of stroke symptoms (right side facial droop, not able to speak, right side weakness; patient fell at time of symptoms; LKW 0830 this date. 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 Triage Information: Most recent Vital Sign Value [...] Reference Range: STRAW,YELLOW Appearance, Urine CLEAR Specific [place], Urine 1.044 H pH, Urine 6.0 Protein, [...] Authorization (EUA) and has been verified by [facility]. This test is only authorized for the [...] Time, Pl (more content not included)... Normal [facility] Risk Screen - Adult Emergenc yon 06-06-2020 [...] an injured patient at a Trauma Center ([facility]/[place]/[facility]/[place]): no Electronic Signatures: Carey Kapoor (RN) (Signed 06-Jun-2020 10:33) Authored: Preferred Language, Advanced Directives, Family Violence Adult, Learning Assessment (Patient), Learning Assessment (Other Learner), Pressure Injury/TB/Substance, Pressure Injury, CAGE Last Updated: 06-Jun-2020 10:33 by Carey Kapoor (MURIEL) Normal [facility] TROPONIN Ion 06-06-2020 Troponin I.cardiac [Mass/Vol] ng/mL Normal 0.00 - 0.03 [facility] Comment on above: Result Comment: LESS THAN [...] is performed using different testing methodology at [facility] than at other [facility] hospitals. Direct result comparisons should only be made within the same method. Performed By: #### T ROP2 #### [facility] [address] [place] [address] Triage - EDon 06-06-2020 Triage - ED Chart Review: PRIMARY ASSESSMENT Team Activation Team Activated: STROKE Activation Team: prior to arrival by EMS Time of Activation: 06-Jun-2020 10:00 ARRIVAL INFORMATION Mode of Arrival: ambulance Agency: [facility] Agency Name: [facility] with AFD assist CHIEF COMPLAINT OLI DE LA FUENTE is a Male patient with a chief complaint of stroke symptoms (right side facial droop, not able to speak, right side weakness; patient fell at time of symptoms; LKW 08 this date. 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 Onset of the Complaint: 06-Jun-2020 08:30 Triage [...] 06-Jun-2020 09:45 Stroke / BAT team arrival: 06-Apr-2021 10:[address] Patient taken directly to CT scanner: yes Risk Screens Suicide Risk Screen Pacific Risk Screen: unable to assess Pacific Risk Screen [place] Fall Scale Screening [...] 06-Jun-2020 12:08 by Carey Kapoor (RN) Normal [facility] URINALYSISon 06-06-2020 Appearance (U) CLEAR Normal CLEAR [facility] Comment on above: Performed By: #### U A #### [address] [address] Bilirubin Ql (U) Negative Normal NEGATIVE [facility] Comment on above: Performed By: #### U A #### [address] [address] Color (U) Straw Normal STRAW,YELLOW [facility] Comment on above: Performed By: #### U A #### [address] [address] Glucose Ql (U) Negative Normal NEGATIVE [facility] Comment on above: Performed By: #### U A #### [address] [address] Hemoglobin Ql (U) Negative Normal NEGATIVE [facility] Comment on above: Performed By: #### U A #### [address] [address] Ketones Ql (U) Negative Normal NEGATIVE [facility] Comment on above: Performed By: #### U A #### [address] [place] [address] Leukocyte esterase Test strip Ql (U) Negative Normal NEGATIVE [facility] Comment on above: Performed By: #### U A #### [address] [address] Nitrite Ql (U) Negative Normal NEGATIVE [facility] Comment on above: Performed By: #### U A #### [address] [address] pH (U) 6.0 [pH] Normal 5.0 - 8.0 [facility] Comment on above: Performed By: #### U A #### [address] [address] Protein Ql (U) Negative Normal NEGATIVE [facility] Comment on above: Performed By: #### U A #### [address] [address] Specific gravity (U) [Rel density] 1.044 High 1.005 - 1.035 [facility] Comment on above: Performed By: #### U A #### [address] [address] Urobilinogen (U) [Mass/Vol] mg/dL Normal 0.0 - 1.9 [facility] Comment on above: Performed By: #### U A #### [address] [address] CORONAVIRUS 2019 BY PCRon SARS-CoV-2 (COVID-19) RNA LOGAN+probe Ql (Unsp spec) Not detected Normal Not Detected [facility] Comment on above: Result Comment: . This [...] patient management decisions. Fact sheet for providers: https://www.fda.gov/media/853624/download Fact sheet for patients: https://www.fda.gov/media/577049/download This test has received FDA Emergency Use Authorization (EUA) and has been verified by [facility] ([facility]). This test is only authorized for the duration of time that circumstances exist to justify the authorization of the emergency use of in vitro diagnostic tests for the detection of SARS-CoV-2 virus and/or diagnosis of COVID-19 infection under section 564(b)(1) of the Act, 21 U.S.C. 360bbb-3(b)(1), unless the authorization is terminated or revoked sooner. [facility] is certified under CLIA-88 as qualified to perform high complexity testing. Testing is performed in the [facility] laboratories located at [address] [place] [address]. Performed By: #### C OV19 #### [address] [place] [address] Covid 19 Resultson 1 SARS-CoV-2 (COVID-19) RNA [...] You may also be contacted by the [facility] to see if any of your [...] or Naproxen (Aleve) can also be used. Dffe-hjz-rnxcoof cough and cold medicines can be used according to the instructions on the package. Some xyqj-pao-fihcoak medicines also contain acetaminophen. Make sure you [...] water are not available, use alcohol-based hand radiographic technologist. Avoid touching your eyes, nose, and mouth [...] like ibuprofen (Motrin) (more content not included)... [facility] CORONAVIRUS 2019 BY PCRon DATE OF SYMPTOM ONSET [YYYYMMDD]? [id number] [facility] Comment on above: Performed By: #### C OV19 #### [facility] [address] [place] [address] Lab Specimen Source Nasal, Nasopharyngeal [facility] Comment on above: Performed By: #### C OV19 #### [facility] [address] [place] [address] Provider Note - ED v2on Provider Note - ED v2 Provider Note - ED v2: Chart Review ED NOTES ED NOTES: Patient came in with complaints of head and chest congestion. He also complains of sore throat fatigue, achy body and exposure to illness from his grandson. Son was swabbed for Covid and was and tested negative. HISTORY OF PRESENTING ILLNESS OLI is a 69 year old Male and [...] SIGNS: T PRBP SpO2O2(LPM) %FiO2 Method 04-May-2020 13:11:[id number] 98 PHYSICAL EXAM CONSTITUTIONAL: Well appearing, well [...] with this care plan to follow-up with supervising broker for suspicious lesion. CRITICAL CARE TIME Is this a critically ill patient: no Electronic Signatures for Addendum Section: Yaneth Chatterjee (MA II) (Signed Addendum 05-May-2020 09:33) patient called with negative covid results, offers no further questions at this time Electronic Signatures: Sen, (more content not included)... Normal [facility] Basic Panelon 12-09-2018 Calcium [Mass/Vol] 8.7 mg/dL Normal 8.5-10.1 [facility] Comment on above: Performed By: #### L P8 #### [facility] [address] [place], [place] [address] CO2 Blood 26 mEq/L Normal 21-32 [facility] Comment on above: Performed By: #### L P8 #### [facility] [address] [place], [place] [address] Creatinine [Mass/Vol] 1.04 mg/dL Normal 0.67-1.17 [facility] Comment on above: Performed By: #### L P8 #### [facility] [address] [place] [address] Glucose [Mass/Vol] 89 mg/dL Normal 70-99 [facility] Comment on above: Performed By: #### L P8 #### [facility] [address] [place] [address] Urea nitrogen [Mass/Vol] 18 mg/dL Normal 7-18 [facility] Comment on above: Performed By: #### L P8 #### [facility] [address] [place] [address] Chloride [Moles/Vol] 101 mmol/L Normal 98-109 [facility] Comment on above: Result Comment: Test ing performed on an Gar i-STAT. Performed By: #### L P8 #### [facility] [address] [place] [address] Potassium [Moles/Vol] 3.3 mmol/L Low 3.5-4.9 [facility] Comment on above: Result Comment: Test ing performed on an Gar i-STAT. Performed By: #### L P8 #### [facility] [address] [place] [address] Sodium [Moles/Vol] 138 mmol/L Normal 138-146 [facility] Comment on above: Result Comment: Test ing performed on an Gar i-STAT. Performed By: #### L P8 #### [facility] [address] [place] [address] Hemogramon 12-09-2018 Erythrocyte distribution width (RBC) [Ratio] 12.1 % Normal 11.5-15.9 [facility] Comment on above: Performed By: #### L CBC #### [facility] [address] [place], [place] [address] Hematocrit (Bld) [Volume fraction] 48.7 % Normal 42.0-52.0 [facility] Comment on above: Performed By: #### L CBC #### [facility] [address] [place], [place] [address] Hemoglobin (Bld) [Mass/Vol] 16.2 g/dL Normal 14.0-18.0 [facility] Comment on above: Performed By: #### L CBC #### [facility] [address] [place] [address] MCH (RBC) [Entitic mass] 31.3 pg High 27.0-31.0 [facility] Comment on above: Performed By: #### L CBC #### [facility] [address] [place] [address] MCHC (RBC) [Mass/Vol] 33.3 % Normal 32.0-36.0 [facility] Comment on above: Performed By: #### L CBC #### [facility] [address] [place] [address] MCV (RBC) [Entitic vol] 94.0 fL Normal 80.0-94.0 [facility] Comment on above: Performed By: #### L CBC #### [facility] [address] [place] [address] Platelet mean volume (Bld) [Entitic vol] 9.2 fL Normal 7.1-10.5 [facility] Comment on above: Performed By: #### L CBC #### [facility] [address] [place], [place] [address] Platelets (Bld) [#/Vol] 251 thou/cmm Normal 150-400 [facility] Comment on above: Performed By: #### L CBC #### [facility] [address] [place], [place] [address] RBC (Bld) [#/Vol] 5.18 mil/cmm Normal 4.60-6.20 [facility] Comment on above: Performed By: #### L CBC #### [place] [address] WBC (Bld) [#/Vol] 7.5 thou/cmm Normal 4.8-10.5 [facility] Comment on above: Performed By: #### L CBC #### [facility] [address] [place] [id number] MDRD eGFRon 12-09-2018 GFR/1.73 sq M predicted among non-blacks MDRD (S/P/Bld) [Vol rate/Area] mL/min/{1.73_m2} Normal >60mL/min/1.7 3m2 [facility] Comment on above: Result Comment: If t he patient is , multiply the result by 1.210. Performed By: #### L GFR #### [facility] [address] [place] [address] Protimeon 12-09-2018 INR Coag (PPP) [Relative time] 1.18 {INR} Normal 0.90-1.30 [facility] Comment on above: Result Comment: Nasrin min K Antagonist (VKA) Therapeutic Range: INR 2 to 3 (Target INR of 2.5) Note: For patients treated with VKA drugs, such as warfarin, the [employer] 2012 Guideline recommends [...] 2.5 to 3.5 target INR of 3). Arjunyajose antonio GH, et al. Chest 2012; 141:7S-47S Aundrea RA, et al. JACC 2017; 70: 252-289 Performed By: #### L PT #### [facility] [address] [place] [id number] PT Coag (PPP) [Time] 12.5 s Normal 9.7-13.0 [facility] Comment on above: Result Comment: . Performed By: #### L PT #### [facility] [address] [place] [address] TSHon 12-09-2018 TSH Qn 11.05 uIU/mL High 0.34-4.82 [facility] Comment on above: Performed By: #### L TSH #### [facility] [address] [place] [address] Troponin Ion 12-09-2018 Troponin I.cardiac [Mass/Vol] 0.04 ng/mL Normal <=0.07 [facility] Comment on above: Performed By: #### L TRP #### [facility] [address] [place] [address] Echo Complete w/wo Contrasto n 05-01-2017 Echo Complete w/wo Contrast Patient Name: OLI DE LA FUENTE Ultrasound Exam Date/Time 05/01/2017 12:07:21 EST Exam Echo Complete w/wo Contrast Ordering Phys[facility] Accession Number [id number] Reason For Exam bicuspid aortic valve Report TRANSTHORACIC ECHOCARDIOGRAM PATIENT: Oli De La Fuente STUDY DATE: 05/01/2017 : 1950 AGE: 66 HT/WT: 185.4 cm (73 86.2 kg in) (189.6 lb) GENDER: M BP: 156 / 110 LOCATION: [facility]IENT [facility] STATUS: *ORDERING PHYSICIAN: * Melquiades Mares MD, [facility] *RN: * Ching Del Angel RN *READING PHYSICIAN: * Melquiades Mares MD, [facility] *SOIL CHEMIST: * Sue Benoit --- INDICATIONS: (Q23.1). --- [...] range. Electronically signed by Melquiades Mares MD, [facility] 05/01/2017 11:53 Final Dictated: 05/02/2017 9:26 am Dictating Physician: MD. YEFRI, [facility] Signed Date and Time: 05/01/2017 11:53 am Signed by: MD. YEFRI, [facility], [facility] A Normal [facility] Influenza virus A and B and SARS-CoV-2 (COVID-19) Ag panel - Upper respiratory specim SARS-CoV-2 (COVID-19) RNA LOGAN+probe Ql (Resp) [facility] Work Phone: Vital Signs Date Time Vital Sign Value Performing Clinician Facility 10-21-2024 10:00-0400 Inhaled oxygen flow rate 3 L/min Dr. Ashlee Lanier MD Work Phone: [facility] 10-21-2024 08:00-0400 Heart rate 72 /min Dr. Ashlee Lanier MD Work Phone: [facility] 10-21-2024 07:57-0400 Body temperature 98.5 [degF] Dr. Ashlee Lanier MD Work Phone: [facility] 10-21-2024 07:57-0400 Diastolic blood pressure 68 mm[Hg] Dr. Ashlee Lanier MD Work Phone: [facility] 10-21-2024 07:57-0400 Respiratory rate 18 /min Dr. Ashlee Lanier MD Work Phone: [facility] 10-21-2024 07:57-0400 SaO2% (BldA) [Mass fraction] 97 % Dr. Ashlee Lanier MD Work Phone: [facility] 10-21-2024 07:57-0400 Systolic blood pressure 107 mm[Hg] Dr. Ashlee Lanier MD Work Phone: [facility] 10-20-2024 22:31-0400 Inhaled oxygen concentration 32 % Dr. Ashlee Lanier MD Work Phone: [facility] 10-20-2024 14:26-0400 Body height 185.[address] Ashlee Lanier MD Work Phone: [facility] 10-20-2024 14:26-0400 Body weight 81.[address] Ashlee Lanier MD Work Phone: [facility] 10-18-2024 10:54-0400 Body mass index (BMI) [Ratio] 23.6 kg/m2 Dr. Ashlee Lanier MD Work Phone: [facility] 10-17-2024 23:19-0400 Body temperature 97.9 [degF] Dr. Ashlee Lanier MD Work Phone: [facility] 10-17-2024 23:19-0400 Diastolic blood pressure 88 mm[Hg] Dr. Ashlee Lanier MD Work Phone: [facility] 10-17-2024 23:19-0400 Heart rate 76 /min Dr. Ashlee Lanier MD Work Phone: [facility] 10-17-2024 23:19-0400 Respiratory rate 16 /min Dr. Ashlee Lanier MD Work Phone: [facility] 10-17-2024 23:19-0400 SaO2% (BldA) [Mass fraction] 98 % Dr. Ashlee Lanier MD Work Phone: [facility] 10-17-2024 23:19-0400 Systolic blood pressure 132 mm[Hg] Dr. Ashlee Lanier MD Work Phone: [facility] 10-17-2024 23:00-0400 Inhaled oxygen flow rate 2 L/min Dr. Ashlee Lanier MD Work Phone: [facility] 10-17-2024 20:39-0400 Body height 185.[address] Ashlee Lanier MD Work Phone: [facility] 10-17-2024 20:39-0400 Body mass index (BMI) [Ratio] 24.7 kg/m2 Dr. Ashlee Lanier MD Work Phone: [facility] 10-17-2024 20:39-0400 Body weight 85.[address] Ashlee Lanier MD Work Phone: [facility] 10-17-2024 18:55-0400 Heart rate 76 /min Dr. Ashlee Lanier MD Work Phone: [facility] 10-17-2024 18:55-0400 Respiratory rate 24 /min Dr. Ashlee Lanier MD Work Phone: [facility] 10-17-2024 16:00-0400 Diastolic blood pressure 71 mm[Hg] Dr. Ashlee Lanier MD Work Phone: [facility] 10-17-2024 16:00-0400 Inhaled oxygen flow rate 3 L/min Dr. Ashlee Lanier MD Work Phone: [facility] 10-17-2024 16:00-0400 SaO2% (BldA) [Mass fraction] 95 % Dr. Ashlee Lainer MD Work Phone: [facility] 10-17-2024 16:00-0400 Systolic blood pressure 125 mm[Hg] Dr. Ashlee Lanier MD Work Phone: [facility] 10-15-2024 22:45-0400 Inhaled oxygen concentration 32 % Dr. Ashlee Lanier MD Work Phone: [facility] 10-14-2024 14:16-0400 Body weight 80.[address] Ashlee Lanier MD Work Phone: [facility] 10-13-2024 21:00-0400 Body mass index (BMI) [Ratio] 23.5 kg/m2 Dr. Ashlee Lanier MD Work Phone: [facility] 10-04-2024 17:33-0400 Body temperature 37.0 degrees Celsius [facility] Comment on above: Performed By: #### [id number] ####ANNETTE Foss ([id number])[facility] ([facility])[id number] [place] [address] 11039 10-04-2024 17:33-0400 SaO2% (BldA) [Mass fraction] 94 % [facility] Comment on above: Performed By: #### [id number] ####ANNETTE Foss ([id number])[facility] ([facility])[address] [place] [address] 18914 10-03-2024 00:13-0400 Body temperature 37.0 degrees Celsius [facility] Comment on above: Performed By: #### [id number] ####ANNETTE Foss ([id number])[facility] ([facility])[address] [place], [place] [id number] 10-03-2024 00:13-0400 SaO2% (BldA) [Mass fraction] 100 % [facility] Comment on above: Performed By: #### [id number] ####ANNETTE Foss ([id number])[facility] ([facility])[address] [place], [place] [id number] 10-02-2024 14:54-0400 Body temperature 37.0 degrees Celsius [facility] Comment on above: Performed By: #### [id number] ####ANNETTE Foss ([id number])[facility])[address] [place], [place] [id number] 10-02-2024 14:54-0400 SaO2% (BldA) [Mass fraction] 99 % [facility] Comment on above: Performed By: #### [id number] ####ANNETTE Fsos ([id number])[facility] ([facility])[address] [place] [address] 55020 10-02-2024 12:45-0400 Body temperature 37.0 degrees Celsius [facility] Comment on above: Performed By: #### [id number] ####ANNETTE Foss ([id number])[facility])[address] [place] [address] 88189 10-02-2024 12:45-0400 SaO2% (BldA) [Mass fraction] 97 % [facility] Comment on above: Performed By: #### [id number] ####ANNETTE Foss ([id number])[facility])[address] [place] [address] 14108 10-01-2024 12:13-0400 Body temperature 37.0 degrees Celsius [facility] Comment on above: Performed By: #### [id number] ####ANNETTE Foss ([id number])[facility])[address] [place] [address] 27533 10-01-2024 12:13-0400 SaO2% (BldA) [Mass fraction] 98 % [facility] Comment on above: Performed By: #### [id number] ####ANNETTE Foss ([id number])[facility])[address] [place], [place] [id number] 10-01-2024 00:48-0400 Body temperature 37.0 degrees Celsius [facility] Comment on above: Performed By: #### [id number] ####ANNETTE Foss ([id number])[facility])[address] [place], [place] [id number] 10-01-2024 00:48-0400 SaO2% (BldA) [Mass fraction] 98 % [facility] Comment on above: Performed By: #### [id number] ####ANNETTE Foss ([id number])[facility])[address] [place] [address] 53447 09-30-2024 18:18-0400 Body temperature 37.0 degrees Celsius [facility] Comment on above: Performed By: #### [id number] ####ANNETTE Foss ([id number])[facility])[address] [place] [address] 35993 09-30-2024 18:18-0400 SaO2% (BldA) [Mass fraction] 98 % [facility] Comment on above: Performed By: #### [id number] ####ANNETTE Foss ([id number])[facility])[address] [place] [address] 09-29-2024 23:21-0400 Body temperature 37.0 degrees Celsius [facility] Comment on above: Performed By: #### [id number] ####ANNETTE Foss ([id number])[facility])[address] [place] [address] 09-29-2024 23:21-0400 SaO2% (BldA) [Mass fraction] 99 % [facility] Comment on above: Performed By: #### [id number] ####ANNETTE Foss ([id number])[facility])[address] [place] [address] 09-29-2024 20:55-0400 Body temperature 37.0 degrees Celsius [facility] Comment on above: Performed By: #### [id number] ####ANNETTE Foss ([id number])[facility])[address] [place] [address] 09-29-2024 20:55-0400 SaO2% (BldA) [Mass fraction] 100 % [facility] Comment on above: Performed By: #### [id number] ####ANNETTE Foss ([id number])[facility])[address] [place] [address] 09-29-2024 13:20-0400 Body temperature 37.0 degrees Celsius [facility] Comment on above: Performed By: #### [id number] ####ANNETTE Foss ([id number])[facility])[address] [place] [address] 09-29-2024 13:20-0400 SaO2% (BldA) [Mass fraction] 100 % [facility] Comment on above: Performed By: #### [id number] ####NANETTE Foss ([id number])[facility])[address] [place] [address] 09-29-2024 07:48-0400 Body temperature 37.0 degrees Celsius [facility] Comment on above: Performed By: #### [id number] ####ANNETTE Foss ([id number])[facility])[address] [place] [address] 09-29-2024 07:48-0400 SaO2% (BldA) [Mass fraction] 96 % [facility] Comment on above: Performed By: #### [id number] ####ANNETTE Foss ([id number])[facility])[address] [place] [address] 09-29-2024 06:28-0400 Body temperature 37.0 degrees Celsius [facility] Comment on above: Performed By: #### [id number] ####ANNETTE Foss ([id number])[facility])[address] [place] [address] 09-29-2024 06:28-0400 SaO2% (BldA) [Mass fraction] 100 % [facility] Comment on above: Performed By: #### [id number] ####ANNETTE Foss ([id number])[facility])[address] [place], [place] [id number] 09-29-2024 05:57-0400 Body temperature 37.0 degrees Celsius [facility] Comment on above: Performed By: #### [id number] ####ANNETTE Foss ([id number])[facility])[address] [place], [place] [address] 09-29-2024 05:57-0400 SaO2% (BldA) [Mass fraction] 97 % [facility] Comment on above: Performed By: #### [id number] ####ANNETTE Foss ([id number])[facility])[address] [place] [address] 09-29-2024 00:51-0400 Body temperature 37.0 degrees Celsius [facility] Comment on above: Performed By: #### [id number] ####ANNETTE Foss ([id number])[facility])[address] [place] [address] 09-29-2024 00:51-0400 SaO2% (BldA) [Mass fraction] 96 % [facility] Comment on above: Performed By: #### [id number] ####ANNETTE Foss ([id number])[facility])[address] [place] [address] 09-27-2024 12:53-0400 Body temperature 37.0 degrees Celsius [facility] Comment on above: Performed By: #### [id number] ####ANNETTE Foss ([id number])[facility])[address] [place] [address] 09-27-2024 12:53-0400 SaO2% (BldA) [Mass fraction] 96 % [facility] Comment on above: Performed By: #### [id number] ####ANNETTE Foss ([id number])[facility])[address] [place] [address] 09-27-2024 08:42-0400 Body temperature 37.0 degrees Celsius [facility] Comment on above: Performed By: #### [id number] ####ANNETTE Foss ([id number])[facility])[address] [place] [address] 09-27-2024 08:42-0400 SaO2% (BldA) [Mass fraction] 99 % [facility] Comment on above: Performed By: #### [id number] ####ANNETTE Foss ([id number])[facility])[address] [place] [address] 09-27-2024 07:34-0400 Body temperature 37.0 degrees Celsius [facility] Comment on above: Performed By: #### [id number] ####ANNETTE Foss ([id number])[facility])[address] [place] [address] 09-27-2024 07:34-0400 SaO2% (BldA) [Mass fraction] 99 % [facility] Comment on above: Performed By: #### [id number] ####ANNETTE Foss ([id number])[facility])[address] [place] [address] 09-27-2024 05:33-0400 Body temperature 37.0 degrees Celsius [facility] Comment on above: Result Comment: NOTE: Patient Results ar e Not Corrected for Temperature Performed By: #### 9 [id number] ####ANNETTE Foss ([id number])[facility])[address] [place] [address] 09-27-2024 05:33-0400 SaO2% (BldA) [Mass fraction] 100 % [facility] Comment on above: Performed By: #### [id number] ####ANNETTE Foss ([id number])[facility])[address] [place] [address] 09-27-2024 03:07-0400 Diastolic blood pressure 75 mm[Hg] Matthew Ahn MD Work Phone: [facility] 09-27-2024 03:07-0400 Heart rate 85 /min Matthew Ahn MD Work Phone: [facility] 09-27-2024 03:07-0400 Respiratory rate 16 /min Matthew Ahn MD Work Phone: [facility] 09-27-2024 03:07-0400 Systolic blood pressure 93 mm[Hg] Matthew Ahn MD Work Phone: [facility] 09-27-2024 03:00-0400 SaO2% (BldA) [Mass fraction] 98 % Matthew Ahn MD Work Phone: [facility] 09-26-2024 23:17-0400 Body height 188 cm Matthew Ahn MD Work Phone: [facility] 09-26-2024 23:17-0400 Body mass index (BMI) [Ratio] 25.04 kg/m2 Matthew Ahn MD Work Phone: [facility] 09-26-2024 23:17-0400 Body temperature 98.8 [degF] Matthew Ahn MD Work Phone: [facility] 09-26-2024 23:17-0400 Body weight 88.45 kg Matthew Ahn MD Work Phone: [facility] 07-14-2024 08:29-0400 Body mass index (BMI) [Ratio] 23.7 kg/m2 Dr. Ashlee Lanier MD Work Phone: [facility] 07-14-2024 08:29-0400 Body temperature 96.7 [degF] Dr. Ashlee Lanier MD Work Phone: [facility] 07-14-2024 08:29-0400 Body weight 81.[address] Ashlee Lanier MD Work Phone: [facility] 07-14-2024 08:29-0400 Diastolic blood pressure 62 mm[Hg] Dr. Ashlee Lanier MD Work Phone: [facility] 07-14-2024 08:29-0400 Heart rate 85 /min Dr. Ashlee Lanier MD Work Phone: [facility] 07-14-2024 08:29-0400 Respiratory rate 16 /min Dr. Ashlee Lanier MD Work Phone: [facility] 07-14-2024 08:29-0400 SaO2% (BldA) [Mass fraction] 99 % Dr. Ashlee Lanier MD Work Phone: [facility] 07-14-2024 08:29-0400 Systolic blood pressure 96 mm[Hg] Dr. Ashlee Lanier MD Work Phone: [facility] 04-12-2024 13:35-0500 Body height 185.[address] Ashlee Lanier MD Work Phone: [facility] 04-12-2024 13:35-0500 Body mass index (BMI) [Ratio] 24.4 kg/m2 Dr. Ashlee Lanier MD Work Phone: [facility] 04-12-2024 13:35-0500 Body temperature 97.8 [degF] Dr. Ashlee Lanier MD Work Phone: [facility] 04-12-2024 13:35-0500 Body weight 83.[address] Ashlee Lanier MD Work Phone: [facility] 04-12-2024 13:35-0500 Diastolic blood pressure 78 mm[Hg] Dr. Ashlee Lanier MD Work Phone: [facility] 04-12-2024 13:35-0500 Heart rate 80 /min Dr. Ashlee Lanier MD Work Phone: [facility] 04-12-2024 13:35-0500 Respiratory rate 16 /min Dr. Ashlee Lanier MD Work Phone: [facility] 04-12-2024 13:35-0500 SaO2% (BldA) [Mass fraction] 95 % Dr. Ashlee Lanier MD Work Phone: [facility] 04-12-2024 13:35-0500 Systolic blood pressure 121 mm[Hg] Dr. Ashlee Lanier MD Work Phone: [facility] 04-03-2024 14:24-0500 Body height 185.1 cm Viktoria Rivera FOOD CONSULTANT-HOME SERVICE TECHNICIAN Work Phone: [phone] [address] 04-03-2024 14:24-0500 Body mass index (BMI) [Ratio] 29.79 kg/m2 Viktoria Rivera FOOD CONSULTANT-HOME SERVICE TECHNICIAN Work Phone: [phone] [address] 04-03-2024 14:24-0500 Body temperature 97.59 [degF] Viktoria Rivera FOOD CONSULTANT-HOME SERVICE TECHNICIAN Work Phone: 5(205)589-439519 [place] [address] 04-03-2024 14:24-0500 Body weight 102.06 kg Viktoria Rivera FOOD CONSULTANT-HOME SERVICE TECHNICIAN Work Phone: 8([phone])492-556510 [address] 04-03-2024 14:24-0500 Diastolic blood pressure 68 mm[Hg] Viktoria Rivera FOOD CONSULTANT-HOME SERVICE TECHNICIAN Work Phone: 8(395)990-894710 [address] 04-03-2024 14:24-0500 Heart rate 108 /min Viktoria Rivera FOOD CONSULTANT-HOME SERVICE TECHNICIAN Work Phone: 2([phone])[phone] [address] 04-03-2024 14:24-0500 Respiratory rate 14 /min Viktoria Rivera FOOD CONSULTANT-HOME SERVICE TECHNICIAN Work Phone: [phone])[phone] [address] 04-03-2024 14:24-0500 SaO2% (BldA) [Mass fraction] 83 % Viktoria Rivera FOOD CONSULTANT-HOME SERVICE TECHNICIAN Work Phone: 1([phone])[phone] [address] 04-03-2024 14:24-0500 Systolic blood pressure 108 mm[Hg] Viktoria Rivera FOOD CONSULTANT-HOME SERVICE TECHNICIAN Work Phone: 5([phone] [place] [address] 03-16-2024 07:53-0500 Body mass index (BMI) [Ratio] 23.7 kg/m2 Dr. Ashlee Lanier MD Work Phone: [facility] 03-16-2024 07:53-0500 Body temperature 97.2 [degF] Dr. Ashlee Lanier MD Work Phone: [facility] 03-16-2024 07:53-0500 Body weight 81.[address] Ashlee Lanier MD Work Phone: [facility] 03-16-2024 07:53-0500 Diastolic blood pressure 73 mm[Hg] Dr. Ashlee Lanier MD Work Phone: [facility] 03-16-2024 07:53-0500 Heart rate 71 /min Dr. Ashlee Lanier MD Work Phone: [facility] 03-16-2024 07:53-0500 Respiratory rate 20 /min Dr. Ashlee Lanier MD Work Phone: [facility] 03-16-2024 07:53-0500 SaO2% (BldA) [Mass fraction] 98 % Dr. Ashlee Lanier MD Work Phone: [facility] 03-16-2024 07:53-0500 Systolic blood pressure 109 mm[Hg] Dr. Ashlee Lanier MD Work Phone: [facility] 03-05-2024 10:23-0500 Body height 182.9 cm Idania Fraire DO Work Phone: [facility] 03-05-2024 10:23-0500 Body mass index (BMI) [Ratio] 24.68 kg/m2 Idania Fraire DO Work Phone: [facility] 03-05-2024 10:23-0500 Body weight 82.56 kg Idania Fraire DO Work Phone: [facility] 03-05-2024 10:23-0500 Diastolic blood pressure 66 mm[Hg] Idania Fraire DO Work Phone: [facility] 03-05-2024 10:23-0500 Heart rate 73 /min Idania Fraire DO Work Phone: [facility] 03-05-2024 10:23-0500 SaO2% (BldA) [Mass fraction] 95 % Idania Fraire DO Work Phone: [facility] 03-05-2024 10:23-0500 Systolic blood pressure 110 mm[Hg] Idania Fraire DO Work Phone: [facility] 11-17-2023 16:58-0400 Body height 185.4 cm Manuel Talleyenik FOOD CONSULTANT-HOME SERVICE TECHNICIAN Work Phone: [facility] 11-17-2023 16:58-0400 Body mass index (BMI) [Ratio] 29.69 kg/m2 Manuel Talleyenicynthia FOOD CONSULTANT-HOME SERVICE TECHNICIAN Work Phone: [facility] 11-17-2023 16:58-0400 Body temperature 97.5 [degF] Manuel Talleyenicynthia FOOD CONSULTANT-HOME SERVICE TECHNICIAN Work Phone: [facility] 11-17-2023 16:58-0400 Body weight 102.06 kg Manuel Talleyenicynthia FOOD CONSULTANT-HOME SERVICE TECHNICIAN Work Phone: [facility] 11-17-2023 16:58-0400 Diastolic blood pressure 85 mm[Hg] Manuel Talleyenicynthia FOOD CONSULTANT-HOME SERVICE TECHNICIAN Work Phone: [facility] 11-17-2023 16:58-0400 Heart rate 70 /min Manuel Talleyenicynthia FOOD CONSULTANT-HOME SERVICE TECHNICIAN Work Phone: [facility] 11-17-2023 16:58-0400 Respiratory rate 20 /min Manuel Talleyenik FOOD CONSULTANT-HOME SERVICE TECHNICIAN Work Phone: [facility] 11-17-2023 16:58-0400 SaO2% (BldA) [Mass fraction] 98 % Manuel Talleyenicynthia FOOD CONSULTANT-HOME SERVICE TECHNICIAN Work Phone: [facility] 11-17-2023 16:58-0400 Systolic blood pressure 119 mm[Hg] Manuel Abebe FOOD CONSULTANT-HOME SERVICE TECHNICIAN Work Phone: [facility] 09-02-2023 11:45-0400 Body height 182.9 cm Idania Fraire DO Work Phone: [facility] 09-02-2023 11:45-0400 Body mass index (BMI) [Ratio] 24.25 kg/m2 Idania Fraire DO Work Phone: [facility] 09-02-2023 11:45-0400 Body weight 81.1 kg Idania Fraire DO Work Phone: [facility] 09-02-2023 11:45-0400 Diastolic blood pressure 68 mm[Hg] Idania Fraire DO Work Phone: [facility] 09-02-2023 11:45-0400 Heart rate 71 /min Idania Fraire DO Work Phone: [facility] 09-02-2023 11:45-0400 SaO2% (BldA) [Mass fraction] 99 % Idania Fraire DO Work Phone: [facility] 09-02-2023 11:45-0400 Systolic blood pressure 102 mm[Hg] Idania Fraire DO Work Phone: [facility] 04-16-2023 07:48-0500 Body height 185.[address] Ashlee Lanier Work Phone: [facility] 04-16-2023 07:48-0500 Body mass index (BMI) [Ratio] 25 kg/m2 Dr. Ashlee Lanier Work Phone: [facility] 04-16-2023 07:48-0500 Body temperature 98 [degF] Dr. Ashlee Lanier Work Phone: [facility] 04-16-2023 07:48-0500 Body weight 85.[address] Ashlee Lanier Work Phone: [facility] 04-16-2023 07:48-0500 Diastolic blood pressure 75 mm[Hg] Dr. Ashlee Lanier Work Phone: [facility] 04-16-2023 07:48-0500 Heart rate 81 /min Dr. Ashlee Lanier Work Phone: [facility] 04-16-2023 07:48-0500 Respiratory rate 18 /min Dr. Ashlee Lanier Work Phone: [facility] 04-16-2023 07:48-0500 SaO2% (BldA) [Mass fraction] 98 % Dr. Ashlee Lanier Work Phone: [facility] 04-16-2023 07:48-0500 Systolic blood pressure 111 mm[Hg] Dr. Ashlee Lanier Work Phone: [facility] 04-14-2023 08:06-0500 Body mass index (BMI) [Ratio] 25.1 kg/m2 Dr. Ashlee Lanier Work Phone: [facility] 04-14-2023 08:06-0500 Body temperature 97.8 [degF] Dr. Ashlee Lanier Work Phone: [facility] 04-14-2023 08:06-0500 Body weight 86.[address] Ashlee Lanier Work Phone: [facility] 04-14-2023 08:06-0500 Diastolic blood pressure 61 mm[Hg] Dr. Ashlee Lanier Work Phone: [facility] 04-14-2023 08:06-0500 Heart rate 79 /min Dr. Ashlee Lanier Work Phone: [facility] 04-14-2023 08:06-0500 Respiratory rate 16 /min Dr. Ashlee Lanier Work Phone: [facility] 04-14-2023 08:06-0500 SaO2% (BldA) [Mass fraction] 92 % Dr. Ashlee Lanier Work Phone: [facility] 04-14-2023 08:06-0500 Systolic blood pressure 100 mm[Hg] Dr. Ashlee Lanier Work Phone: [facility] 03-21-2023 14:06-0500 SaO2% (BldA) [Mass fraction] 95 % Quinn Camarillo DO Work Phone: [facility] 03-21-2023 07:00-0500 Body temperature 97.7 [degF] Quinn Camarillo DO Work Phone: [facility] 03-21-2023 07:00-0500 Diastolic blood pressure 61 mm[Hg] Quinn Camarillo DO Work Phone: [facility] 03-21-2023 07:00-0500 Heart rate 80 /min Quinn Camarillo DO Work Phone: [facility] 03-21-2023 07:00-0500 Respiratory rate 20 /min Quinn Camarillo DO Work Phone: [facility] 03-21-2023 07:00-0500 Systolic blood pressure 97 mm[Hg] Quinn Camarillo DO Work Phone: [facility] 03-20-2023 06:28-0500 Body mass index (BMI) [Ratio] 26.56 kg/m2 Quinn Camarillo DO Work Phone: [facility] 03-20-2023 06:28-0500 Body weight 91.3 kg Quinn Camarillo DO Work Phone: [facility] 03-18-2023 06:31-0500 Body height 185.4 cm Quinn Camarillo DO Work Phone: [facility] 03-10-2023 17:33-0500 Body height 185.4 cm Manuel Abebe FOOD CONSULTANT-HOME SERVICE TECHNICIAN Work Phone: [facility] 03-10-2023 17:33-0500 Body mass index (BMI) [Ratio] 26.12 kg/m2 Manuel Abebe FOOD CONSULTANT-HOME SERVICE TECHNICIAN Work Phone: [facility] [facility] 03-10-2023 17:33-0500 Body temperature 97.39 [degF] Manuel Abebe FOOD CONSULTANT-HOME SERVICE TECHNICIAN Work Phone: [facility] 03-10-2023 17:33-0500 Body weight 89.81 kg Manuel Talleyenicynthia FOOD CONSULTANT-HOME SERVICE TECHNICIAN Work Phone: [facility] 03-10-2023 17:33-0500 Diastolic blood pressure 74 mm[Hg] Manuel Mayankenik FOOD CONSULTANT-HOME SERVICE TECHNICIAN Work Phone: [facility] 03-10-2023 17:33-0500 Heart rate 95 /min Manuel Talleyenik FOOD CONSULTANT-HOME SERVICE TECHNICIAN Work Phone: [facility] 03-10-2023 17:33-0500 Respiratory rate 14 /min Manuel Talleyenik FOOD CONSULTANT-HOME SERVICE TECHNICIAN Work Phone: [facility] 03-10-2023 17:33-0500 SaO2% (BldA) [Mass fraction] 96 % Manuel Mayankenik FOOD CONSULTANT-HOME SERVICE TECHNICIAN Work Phone: [facility] 03-10-2023 17:33-0500 Systolic blood pressure 103 mm[Hg] Manuel Mayankenik FOOD CONSULTANT-HOME SERVICE TECHNICIAN Work Phone: [facility] 06-06-2022 09:41-0400 Body weight 91.63 kg Viktoria Aurin FOOD CONSULTANT.HOME SERVICE TECHNICIAN Work Phone: [facility] 06-06-2022 09:41-0400 Diastolic blood pressure 95 mm[Hg] Viktoria Aurin FOOD CONSULTANT.HOME SERVICE TECHNICIAN Work Phone: [facility] 06-06-2022 09:41-0400 Heart rate 65 /min Viktoria Aurin FOOD CONSULTANT.HOME SERVICE TECHNICIAN Work Phone: [facility] 06-06-2022 09:41-0400 SaO2% (BldA) [Mass fraction] 99 % Viktoria Aurin FOOD CONSULTANT.HOME SERVICE TECHNICIAN Work Phone: [facility] 06-06-2022 09:41-0400 Systolic blood pressure 157 mm[Hg] Viktoria Aurin FOOD CONSULTANT.HOME SERVICE TECHNICIAN Work Phone: [facility] 03-29-2022 08:07-0500 Diastolic blood pressure 83 mm[Hg] Mark Philip MD Work Phone: [facility] 03-29-2022 08:07-0500 Heart rate 72 /min Mark Philip MD Work Phone: [facility] 03-29-2022 08:07-0500 SaO2% (BldA) [Mass fraction] 98 % Mark Philip MD Work Phone: [facility] 03-29-2022 08:07-0500 Systolic blood pressure 140 mm[Hg] Mark Philip MD Work Phone: [facility] 02-11-2022 18:53-0500 SaO2% (BldA) [Mass fraction] 95 % Dr. Ashlee Lanier Work Phone: [facility] Work Phone: 02-11-2022 17:49-0500 Heart rate 70 /min Dr. Ashlee Lanier Work Phone: [facility] Work Phone: 02-11-2022 17:49-0500 Respiratory rate 16 /min Dr. Ashlee Lanier Work Phone: [facility] Work Phone: 02-11-2022 13:50-0500 Body height 185.[address] Ashlee Lanier Work Phone: [facility] Work Phone: 02-11-2022 13:50-0500 Body mass index (BMI) [Ratio] 26.4 kg/m2 Dr. Ashlee Lanier Work Phone: [facility] Work Phone: 02-11-2022 13:50-0500 Body temperature 98 [degF] Dr. Ashlee Lanier Work Phone: [facility] Work Phone: 02-11-2022 13:50-0500 Body weight 90.[address] Ashlee Lanier Work Phone: [facility] Work Phone: 02-11-2022 13:50-0500 Diastolic blood pressure 101 mm[Hg] Dr. Ashlee Lanier Work Phone: [facility] Work Phone: 02-11-2022 13:50-0500 Systolic blood pressure 148 mm[Hg] Dr. Ashlee Lanier Work Phone: [facility] Work Phone: 11-21-2021 10:05-0400 Body mass index (BMI) [Ratio] 25.9 kg/m2 Dr. Ashlee Lanier Work Phone: [facility] Work Phone: 11-21-2021 10:05-0400 Body temperature 98 [degF] Dr. Ashlee Lanier Work Phone: [facility] Work Phone: 11-21-2021 10:05-0400 Body weight 89.[address] Ashlee Lanier Work Phone: [facility] Work Phone: 11-21-2021 10:05-0400 Diastolic blood pressure 94 mm[Hg] Dr. Ashlee Lanier Work Phone: [facility] Work Phone: 11-21-2021 10:05-0400 Heart rate 59 /min Dr. Ashlee Lanier Work Phone: [facility] Work Phone: 11-21-2021 10:05-0400 Respiratory rate 18 /min Dr. Ashlee Lanier Work Phone: [facility] Work Phone: 11-21-2021 10:05-0400 SaO2% (BldA) [Mass fraction] 94 % Dr. Ashlee Lanier Work Phone: [facility] Work Phone: 11-21-2021 10:05-0400 Systolic blood pressure 158 mm[Hg] Dr. Ashlee Lanier Work Phone: [facility] Work Phone: 08-24-2021 08:55-0400 Body height 185.[address] Ashlee Lanier Work Phone: [facility] Work Phone: 08-24-2021 08:55-0400 Body mass index (BMI) [Ratio] 25.6 kg/m2 Dr. Ashlee Lanier Work Phone: [facility] Work Phone: 08-24-2021 08:55-0400 Body temperature 97.1 [degF] Dr. Ashlee Lanier Work Phone: [facility] Work Phone: 08-24-2021 08:55-0400 Body weight 88.[address] Ashlee Lanier Work Phone: [facility] Work Phone: 08-24-2021 08:55-0400 Diastolic blood pressure 97 mm[Hg] Dr. Ashlee Lanier Work Phone: [facility] Work Phone: 08-24-2021 08:55-0400 Heart rate 64 /min Dr. Ashlee Lanier Work Phone: [facility] Work Phone: 08-24-2021 08:55-0400 Respiratory rate 18 /min Dr. Ashlee Lanier Work Phone: [facility] Work Phone: 08-24-2021 08:55-0400 SaO2% (BldA) [Mass fraction] 98 % Dr. Ashlee Lanier Work Phone: [facility] Work Phone: 08-24-2021 08:55-0400 Systolic blood pressure 149 mm[Hg] Dr. Ashlee Lanier Work Phone: [facility] Work Phone: 05-22-2021 13:18-0400 Body mass index (BMI) [Ratio] 25.8 kg/m2 Dr. Ashlee Lanier Work Phone: [facility] Work Phone: 05-22-2021 13:18-0400 Body temperature 97.6 [degF] Dr. Ashlee Lanier Work Phone: [facility] Work Phone: 05-22-2021 13:18-0400 Body weight 88.[address] Ashlee Lanier Work Phone: [facility] Work Phone: 05-22-2021 13:18-0400 Diastolic blood pressure 90 mm[Hg] Dr. Ashlee Lanier Work Phone: [facility] Work Phone: 05-22-2021 13:18-0400 Heart rate 68 /min Dr. Ashlee Lanier Work Phone: [facility] Work Phone: 05-22-2021 13:18-0400 Respiratory rate 16 /min Dr. Ashlee Lanier Work Phone: [facility] Work Phone: 05-22-2021 13:18-0400 SaO2% (BldA) [Mass fraction] 93 % Dr. Ashlee Lanier Work Phone: [facility] Work Phone: 05-22-2021 13:18-0400 Systolic blood pressure 141 mm[Hg] Dr. Ashlee Lanier Work Phone: [facility] Work Phone: Encounters Encounter Date Encounter Type Care Provider Facility Start: 10-17-2024 End: 10-17-2024 Emergency department patient visit Dr. Ashlee Lanier MD Work Phone: -Emergency Department Work Phone: Start: 10-14-2024 End: 10-14-[address] Ashlee Lanier MD Work Phone: -Cat Scan [facility] Start: 10-14-2024 End: 10-14-[address] Norris Olmedo MD -Cat Scan [facility] Work Phone: Start: 10-14-2024 End: 10-14-2024 ambulatory Ashlee Lanier Facility:[facility] Start: 10-13-2024 Evaluation and manag ement of inpatient Dr. Norris Olmedo MD -Transitional Care Unit Start: 09-27-2024 End: 10-13-2024 Evaluation and management of inpatient [facility] Start: 09-26-2024 End: 09-27-2024 Emergency department patient visit Matthew Ahn MD Work Phone: [facility] Comment on above: Ruptured infrarenal abdominal aortic aneurysm (AAA) (Primary Dx); Ruptured pararenal abdominal aortic aneurysm (AAA) (Multi) Start: 09-24-2024 End: 09-27-2024 Refill Kailey Ureañ APRN.CNP Work Phone: Cardiology Comment on above: Refill Request Start: 07-14-2024 End: 07-14-2024 Patient encounter procedure Jyothi HERNANDEZ -[facility] Work Phone: Start: 07-14-2024 End: 07-14-[address] Ashlee Lanier MD Work Phone: [facility] Work Phone: Start: 06-24-2024 End: 06-24-[address] Ashlee Lanier MD -Laboratory Work Phone: Start: 06-24-2024 End: 06-24-[address] Ashlee Lanier MD Work Phone: [facility] Work Phone: Start: 04-12-2024 End: 04-12-[address] Ashlee Lanier MD -[facility] Work Phone: Start: 04-12-2024 End: 04-12-2024 ambulatory Ashlee Lanier Facility:[facility] Start: 04-03-2024 End: 04-03-2024 Patient encounter procedure Viktoria Thacker FOOD CONSULTANT-HOME SERVICE TECHNICIAN Work Phone: [facility] Comment on above: Acute bronchitis, un specified organism (Primary Dx) Start: 04-03-2024 End: 04-03-2024 ambulatory ASHLEESCOUT PICHARDO [facility] Start: 03-31-2024 End: 03-31-2024 Patient encounter procedure Jyothi Lowery NP-C -Cat Scan, [facility] Work Phone: Start: 03-31-2024 End: 03-31-2024 ambulatory Jyothi Lowery NP Facility:[facility] Start: 03-16-2024 End: 03-16-2024 Patient encounter procedure Jyothi Lowery NP-C -[facility] Work Phone: Start: 03-16-2024 End: 03-16-2024 ambulatory Ashlee Lanier Facility:[facility] Start: 03-05-2024 End: 03-05-2024 ambulatory ASHLEE LANIER Facility:[facility] Start: 03-05-2024 End: 03-05-2024 Patient encounter procedure Idania Fraire DO Work Phone: Cardiology Comment on above: 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 (Primary Dx); Paroxysmal atrial fibrillation (HCC); Chronic diastolic CHF (congestive heart failure) (HCC); Primary hypertension; Mixed hyperlipidemia; Presence of drug coated stent in left circumflex coronary artery; senior living current use of anticoagulant; Nonrheumatic aortic valve stenosis; Ascending aorta dilatation (HCC) Start: 11-27-2023 End: 11-27-2023 ambulatory Jyothi Lowery NP Facility:[facility] Start: 11-17-2023 End: 11-17-2023 Patient encounter procedure Manuel Abebe FOOD CONSULTANT-HOME SERVICE TECHNICIAN Work Phone: [facility] Comment on above: COPD with exacerbati on (Multi) (Primary Dx); Acute upper respiratory infection Start: 11-17-2023 End: 11-17-2023 ambulatory ASHLEE LANIER [facility] Start: 09-02-2023 Telephone encounter Idania Jaison womackrosario Mendezins DO Work Phone: Cardiology Comment on above: Appointment (6 mo f/ u) Start: 09-02-2023 End: 09-02-2023 ambulatory IDANIA FRAIRE Facility:[facility] Start: 09-02-2023 End: 09-02-2023 Patient encounter procedure Idania Mendezins DO Work Phone: Cardiology Comment on above: Chronic diastolic co ngestive heart failure (HCC) (Primary Dx); 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; Paroxysmal atrial fibrillation (HCC); Primary hypertension; Mixed hyperlipidemia; Presence of drug coated stent in left circumflex coronary artery; senior living current use of anticoagulant; Nonrheumatic aortic valve stenosis; Ascending aorta dilatation (HCC) Start: 08-21-2023 Refill Viktoria Calix APRN.HOME SERVICE TECHNICIAN Work Phone: Cardiology Start: 07-09-2023 End: 07-09-2023 ambulatory ASHLEE LANIER Facility:[facility] Start: 04-16-2023 End: 04-16-[address] Ashlee Lanier Work Phone: [facility] Work Phone: Start: 04-16-2023 End: 04-16-[address] Ashlee Lanier Work Phone: [facility]-Laboratory Work Phone: Start: 04-16-2023 End: 04-16-[address] Ashlee Lanier Work Phone: [facility] [place] Work Phone: Start: 04-14-2023 End: 04-14-[address] Ashlee Lanier Work Phone: [facility] Work Phone: Start: 03-17-2023 End: 03-21-2023 Evaluation and management of inpatient Quinn Camarillo DO Work Phone: [facility] 3 Comment on above: COPD (chronic obstru ctive pulmonary disease) (CMS/HCC) (Primary Dx); Shock circulatory (CMS/HCC); Septic shock (CMS/HCC); Cellulitis of right lower extremity; Other specified peripheral vascular diseases (CMS/HCC); Peripheral vascular disease, unspecified (CMS/HCC); Difficulty walking Start: 03-17-2023 Critical care ill/in jured patient init 30-74 min Quinn Camarillo DO Work Phone: [facility] Work Phone: Start: 03-10-2023 End: 03-10-2023 Patient encounter procedure Manuel Abebe APRN-HOME SERVICE TECHNICIAN Work Phone: [facility] Comment on above: Acute bronchitis, un specified organism (Primary Dx); Cellulitis of left upper extremity Start: 03-04-2023 End: 03-04-2023 ambulatory ASHLEE LANIER Facility:[facility] Start: 03-04-2023 End: 03-04-2023 ambulatory IDANIA FRAIRE Facility:[facility] Start: 01-17-2023 Refill Viktoria Calix APRN.HOME SERVICE TECHNICIAN Work Phone: Cardiology Start: 06-06-2022 End: 06-06-2022 Patient encounter procedure Viktoria Calix FOOD CONSULTANT.HOME SERVICE TECHNICIAN Work Phone: Cardiology Comment on above: Diastolic congestive heart failure, unspecified HF chronicity (HCC) (Primary Dx); Paroxysmal atrial fibrillation (HCC); 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; Primary hypertension; Pure hypercholesterolemia Start: 04-29-2022 Telephone encounter Janel boyd APRN.HOME SERVICE TECHNICIAN Work Phone: Cardiology Comment on above: Appointment Start: 04-17-2022 Telephone encounter Mark Philip MD Work Phone: [facility] Comment on above: Patient Question Start: 04-08-2022 Telephone encounter Mark Philip MD Work Phone: [facility] [place] Comment on above: Results Start: 03-29-2022 End: 03-29-2022 Orders Only Mark Philip MD Work Phone: Cardiology Comment on above: Systolic congestive heart failure, unspecified HF chronicity (HCC) (Primary Dx) Dyspnea on exertion [R06.09] Start: 03-11-2022 Telephone encounter Mark Philip MD Work Phone: [facility] Comment on above: Preparations For Pro cedures Start: 03-11-2022 End: 03-11-2022 Patient encounter procedure Mark Philip MD Work Phone: Cardiology Comment on above: Paroxysmal atrial fi brillation (HCC) (Primary Dx); Primary hypertension; SOB (shortness of breath); Diastolic congestive heart failure, unspecified HF chronicity (HCC); NSTEMI (non-ST elevated myocardial infarction) ([facility]); Pure hypercholesterolemia; 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 Ashlee Lanier Work Phone: [facility]-Emergency Department Start: 11-21-2021 End: 11-21-[address] Ashlee Lanier Work Phone: [facility] Start: 08-24-2021 End: 08-24-[address] Ashlee Lanier Work Phone: [facility] Start: 05-22-2021 End: 05-22-[address] Ashlee Lanier Work Phone: [facility] Start: 03-17-2021 End: 03-17-2021 Emergency department patient visit Viktoria Thacker [facility] Start: 06-23-2018 End: 06-23-2018 Patient encounter procedure Sarabjit Oliveira Facility:[facility] Start: 05-11-2018 End: 05-11-2018 Patient encounter procedure Sarabjit Oliveira Facility:[facility] Start: 05-05-2018 End: 05-05-2018 Patient encounter procedure Sarabjit Oliveira Facility:[facility] Start: 04-07-2018 End: 04-07-2018 Patient encounter procedure Sarabjit Oliveira Facility:[facility] Start: 08-21-2017 End: 08-22-2017 Patient encounter [facility] Start: 08-12-2017 End: 08-13-2017 Patient encounter procedure Sarabjit Oliveira Facility:[facility] Start: 05-01-2017 Ambulatory MELQUIADES A ILER [facility] Procedures Date Procedure Procedure Detail Performing Clinician Start: 10-21-[address] Ashlee Lanier MD Work Phone: Start: 10-21-[address] Ashlee Lanier MD Work Phone: Start: 10-17-2024 Urnls dip stick/tabl et reagent auto microscopy Dr. Ashlee Lanier MD Work Phone: Start: 10-17-[address] Ashlee Lanier MD Work Phone: Start: 10-17-2024 Computed tomography of abdomen and pelvis with intravenous contrast Dr. Ashlee Lanier MD Work Phone: Start: 10-17-[address] Ashlee Lanier MD Work Phone: Start: 10-17-2024 Plain X-ray abdomen Dr. Ashlee Lanier MD Work Phone: Start: 10-16-[address] Ashlee Lanier MD Work Phone: Start: 10-15-2024 Serum inorganic phos phate measurement Dr. Ashlee Lanier MD Work Phone: Start: 10-15-2024 Plain X-ray abdomen Dr. Ashlee Lanier MD Work Phone: Start: 10-15-2024 X-ray of chest, PA a nd lateral views Dr. Ashlee Lanier MD Work Phone: Start: 10-14-2024 CT of thorax, abdome n and pelvis with contrast Dr. Ashlee Lanier MD Work Phone: Start: 09-27-2024 VERAB/VERIFY ABORH Matthew Ahn MD Work Phone: Start: 09-27-2024 End: 09-27-2024 Assay of lactate Matthew Ahn MD Work Phone: Start: 09-27-2024 Blood typing serolog ic rh (d) Matthew Ahn MD Work Phone: Start: 09-27-2024 Ct abdomen & pelvis w/contrast material Matthew Ahn MD Work Phone: Start: 09-27-2024 Ct angiography chest w/contrast/noncontrast Matthew Ahn MD Work Phone: Start: 09-27-2024 Urinalysis microscop ic panel - Urine Qualitative by Automated Matthew Ahn MD Work Phone: Start: 09-27-2024 Urnls dip stick/tabl et reagent auto microscopy Matthew Ahn MD Work Phone: Start: 09-26-2024 Comprehensive metabo lic panel Matthew Ahn MD Work Phone: Start: 09-26-2024 Troponin I.cardiac p luz - Serum or Plasma by High sensitivity method Matthew Ahn MD Work Phone: Start: 09-26-2024 Radiologic exam ches t single view Matthew Ahn MD Work Phone: Start: 06-24-2024 Prostate [...] Start: 11-17-2023 POCT SARS-COV-2/FLU/ RSV PCR SYMPTOMATIC Manuel Sal Sukhjinder FOOD CONSULTANT-HOME SERVICE TECHNICIAN Work Phone: Start: 03-21-2023 Basic metabolic pane [...] Work Phone: Start: 03-18-2023 Procalcitonin (pct) Pie rre El Dieter SALINAS Work Phone: Start: 03-18-2023 Ecg routine ecg w/le ast 12 lds trcg only w/o i&r Quinn D Lemasters DO Work Phone: Start: 03-18-2023 Assay of lactate Deb n D Lemasters DO Work Phone: Start: 03-17-2023 Urinalysis complete W Reflex Culture panel - Urine Quinn D Lemasters DO Work Phone: Start: 03-17-2023 Urnls dip stick/tabl et reagent auto microscopy Quinn D Lemasters DO Work Phone: Start: 03-17-2023 Assay of lactate Deb n D Lemasters DO Work Phone: Start: 03-17-2023 Ct angiography chest w/contrast/noncontrast Quinn D Lemasters DO Work Phone: Start: 03-17-2023 EXTRA TUBES Quinn D Lemasters DO Work Phone: Start: 03-17-2023 LIGHT BLUE TOP Quinn D Lemasters DO Work Phone: Start: 03-17-2023 SST TOP [...] panel - S nnamdi or Plasma Viktoria Fifi VALDOVINOS Work Phone: Start: 02-11-2022 Plain chest X-ray Dr. Tin Lanier Work Phone: History of percutane ous transluminal coronary angioplasty History of PTCA 1 Dr. Ashlee Lanier Work Phone: Comment on above: PTCA/OSCAR in May 20 SARS-CoV-2 & FLU Ant igen (Rapid) Dr. Ashlee Lanier Work Phone: Plan of Treatment Date Care Activity Detail Author Start: 03-11-2027 Lipid 1996 panel - S nnamdi or Plasma Lipid Screening [facility] Start: 03-11-2027 Lipid panel Lipid Screening [facility] Start: 03-11-2027 LIPID SCREEN LIPID SCREEN [facility] Start: 01-19-2027 Diabetes Screening Diabetes Screenin g [facility] Start: 09-26-2025 Creatinine measurement Creatinine Alessia carl [facility] Start: 09-26-2025 Diabetes mellitus screening Diabetes Screening [facility] Start: 09-26-2025 Potassium measurement Potassium Gabi foss [facility] Start: 06-07-2025 LIPID SCREEN LIPID SCREEN [facility] Start: 04-15-2025 [facility]ABET[facility]CRE[facility] Start: 04-15-2025 Diabetes Screening Diabetes Screenin g [facility] Start: 04-05-2025 DIABETES SCREEN [facility] Start: 03-11-2025 DIABETES SCREEN DIABETES SCREEN [facility] Start: 03-05-2025 BP Controlled (<130/80) BP Controlle d (<130/80) [facility] Start: 03-04-2025 End: 03-04-2025 Patient encounter procedure 03/04/2025 9:30 AM EST Office Visit Cardiology [address] [id number] Kailey Ureña, FOOD CONSULTANT.HOME SERVICE TECHNICIAN [address] [id number] DX: 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 Cardiology Comment on above: DX: 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 Start: 11-01-2024 Influenza vaccination Influenza Vacc ine (#1) [facility] Start: 10-17-2024 [facility] Start: 10-17-2024 [facility] Start: 10-17-2024 Bacteria identified in Urine by Culture Urine Culture [facility] Start: 10-16-2024 Dual pressure sponta neous ventilation support [facility] Start: 10-16-2024 Inhalation therapy procedure [facility] Start: 10-15-2024 Speech therapy management [facility] Start: 10-14-2024 Wound care [facility] Start: 10-14-2024 Physiotherapy of chest [facility] Start: 10-14-2024 Speech therapy assessment [facility] Start: 10-14-2024 Development of care plan [facility] Start: 10-14-2024 Developing a treatme nt plan [facility] Start: 10-14-2024 Following clinical pathway protocol [facility] Start: 10-14-2024 Speech therapy assessment [facility] Start: 10-14-2024 Verification routine [facility] Start: 10-14-2024 [facility] Start: 10-13-2024 Consultation for treatment [facility] Start: 10-13-2024 Admission procedure [facility] Start: 10-13-2024 Introduction of urin marty catheter [facility] Start: 10-13-2024 Measuring intake and output [facility] Start: 10-13-2024 Patient referral to dietitian [facility] Start: 10-13-2024 Referral to occupati onal therapist [facility] Start: 10-13-2024 Referral to service [facility] Start: 10-13-2024 Vital signs measurements [facility] Start: 10-13-2024 [facility] Start: 10-13-2024 Oxygen therapy [facility] Start: 09-25-2024 End: 12-25-2024 Basic metabolic 2000 panel - Serum or Plasma BASIC METABOLIC PANEL Lab Routine Chronic diastolic CHF (congestive heart failure) (HCC) Expected: 09/25/2024, Expires: 12/25/[address] [facility] [facility] Work Phone: Comment on above: Expected: 09/25/2024 , Expires: 12/25/2024 Start: 09-02-2024 End: 09-02-2024 Patient encounter procedure 09/02/2024 10:00 AM EDT Office Visit Cardiology [address] [address] Linnette Livingston APRN.HOME SERVICE TECHNICIAN [address], [place] [id number] 6 month follow up Cardiology Comment on above: 6 month follow up Start: 09-01-2024 BP Controlled (<130/80) BP Controlle d (<130/80) [facility] Start: 03-21-2024 Creatinine measurement Creatinine Alessia carl [facility] Start: 03-21-2024 Potassium measurement Potassium Leve l [facility] Start: 03-18-2024 Echocardiography E[facility]ocardi[facility] Start: 03-08-2024 End: 03-08-2024 Patient encounter procedure 03/08/2024 9:20 AM EST Office Visit Cardiology [address] [place] [address] Idania Fraire, DO [address] [place] [address] 6 mo follow up Cardiology Comment on above: 6 mo follow up Start: 03-04-2024 BP Controlled (<130/80) BP Controlle d (<130/80) [facility] Start: 03-03-2024 Advance Directive Discussion Advance Directive Discussion [facility] Start: 11-17-2023 End: 11-16-2024 XR Chest 2 Views XR chest 2 views Imaging STAT COPD with exacerbation (Multi) Expected: 11/17/2023, Expires: 11/16/2024 [facility] Service Area Work Phone: Comment on above: Expected: 11/17/2023 , Expires: 11/16/2024 Start: 11-12-2023 RSV High Risk: (Elde rly (60+) or Population) (1 - 1-dose 75+ series) RSV High Risk: (Elderly (60+) or Population) (1 - 1-dose 75+ series) [facility] Start: 11-12-2023 RSV Vaccine (1 - 1-d ose 75+ series) RSV Vaccine (1 - 1-dose 75+ series) [facility] Start: 11-02-2023 Covid-19 Vaccine ( season) Covid-19 Vaccine ( season) [facility] Start: 11-02-2023 Influenza vaccination [facility] Start: 09-02-2023 End: 09-02-2023 Patient encounter procedure 09/02/2023 11:20 AM EDT Office Visit Cardiology [address] [place] [address] Idania Fraire, [address] [place] [address] 6 months Cardiology Comment on above: 6 months Start: 03-11-2023 Hepatitis B surface antibody level LDL CHOLESTEROL [facility] Start: 03-03-2023 Advance Directive Discussion Advance Directive Discussion [facility] Start: 03-03-2023 Behavioral Health Screening Behavioral Health Screening [facility] Start: 11-01-2022 Covid-19 Vaccine () Covid-19 Vaccine () [facility] Start: 11-01-2022 [facility] Start: 06-06-2022 End: 08-06-2022 Basic metabolic 2000 panel - Serum or Plasma BASIC METABOLIC PNL Lab Routine Diastolic congestive heart failure, unspecified HF chronicity (HCC) Paroxysmal atrial fibrillation (HCC) 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 Primary hypertension Expected: 06/06/2022, Expires: 08/06/[address] [facility] Work Phone: Comment on above: Expected: 06/06/2022 , Expires: 08/06/2022 Start: 04-05-2022 End: 06-05-2022 Basic metabolic 2000 panel - Serum or Plasma BASIC METABOLIC PNL Lab Routine Systolic congestive heart failure, unspecified HF chronicity (HCC) Expected: 04/05/2022, Expires: 06/05/[address] [facility] Work Phone: Comment on above: Expected: 04/05/2022 , Expires: 06/05/2022 Start: 03-11-2022 End: 05-11-2022 Lipid 1996 panel - Serum or Plasma [facility] Work Phone: Comment on above: Expected: 03/11/2022 , Expires: 05/11/2022 Start: 03-11-2022 End: 05-11-2022 Natriuretic peptide.B prohormone N-Terminal [Mass/volume] in Serum or Plasma [facility] Work Phone: Comment on above: Expected: 03/11/2022 , Expires: 05/11/2022 Start: 03-03-2022 ADVANCE DIRECTIVE DISCUSSION ADVANCE DIRECTIVE DISCUSSION [facility] Start: 03-03-2022 DEPRESSION ASSESSMENT DEPRESSION ASS ESSMENT [facility] Start: 02-11-2022 [facility] Work Phone: Start: 11-01-2021 Influenza vaccination INFLUENZA (#1) [facility] Start: 08-24-2021 IgE [Units/volume] i n Serum or Plasma [facility] Work Phone: Start: 08-24-2021 [facility] Work Phone: Start: 06-07-2021 Diabetes mellitus screening Diabetes Screening [facility] Start: 06-07-2021 Hepatitis B surface antibody level LDL CHOLESTEROL [facility] Start: 03-28-2016 Shingrix Vaccine (2 of 3) Pichardo grix Vaccine (2 of 3) [facility] Start: 03-28-2016 Zoster Vaccines (2 of 3) Zoster Vacc blu (2 of 3) [facility] Start: 01-31-2014 Medicare Annual Well ness Visit Medicare Annual Wellness Visit [facility] Start: 2013 Abdominal aortic ane urysm screening Abdominal Aortic Aneurysm (AAA) Screening [facility] Start: 2008 RSV patient s and/or patients aged 60+ years (1 - 1-dose 60+ series) RSV patients and/or patients aged 60+ years (1 - 1-dose 60+ series) [facility] Start: 2008 RSV Vaccine (1 - 1-d ose 60+ series) RSV Vaccine (1 - 1-dose 60+ series) [facility] Start: 1998 SHINGRIX VACCINE (1 of 2) PICHARDO GRIX VACCINE (1 of 2) [facility] Start: 1993 COLOGUARD (FIT-DNA) COLOGUARD (FIT-D NA) [facility] Start: 1993 Colonoscopy COLONOSCOPY [facility] Start: 1993 COLORECTAL CANCER SCREENING COLORECTAL CANCER SCREENING [facility] Start: [address] COLONOGRAPHY [facility] Start: 1993 FECAL OCCULT BLOOD FECAL OCCULT BLOO D [facility] Start: 1993 Screening for malign ant neoplasm of colon [facility] Start: 1993 SIGMOIDOSCOPY SIGMOIDOSCOPY [facility] Start: 1970 DTaP/Tdap/Td Vaccine s (1 - Tdap) DTaP/Tdap/Td Vaccines (1 - Tdap) [facility] Start: 11-12-1967 Urine microalbumin profile [facility] Start: 1966 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 TRISTIN DISEASE VISIT ANNUAL PCP TEAM CHRONIC DISEASE VISIT [facility] Start: 1966 Anxiety Screening Anxiety Screening [facility] Start: 1966 BP CONTROLLED (<130/80) BP CONTROLLE D (<130/80) [facility] Start: 1966 Depression Screening Depression Scre ening [facility] Start: 1966 HEPATITIS C SCREENING HEPATITIS C [facility] Start: 1966 Hepatitis C screening Hepatitis C [facility] Start: 1954 PNEUMOCOCCAL: 65+ (1 - PCV) PNEUMOCOCCAL: 65+ (1 - PCV) [facility] Start: 1953 COVID-19 Vaccine (#1) COVID-19 Vacci ne (#1) [facility] Start: 05-11-1949 COVID-19 VACCINE (#1) COVID-19 VACCI NE (#1) [facility] Start: 1948 ABDOMINAL AORTIC ANE URYSM SCREENING ABDOMINAL AORTIC ANEURYSM SCREENING [facility] Start: 1948 Abdominal aortic ane urysm screening Abdominal Aortic Aneurysm Screening [facility] Start: 1948 Lipid panel Lipid Panel [facility] Start: 1948 Medicare Annual Well ness Visit Medicare Annual Wellness Visit (AWV) [facility] Start: 1948 Screening for malign ant neoplasm of colon [facility] Start: 1948 Thyroid stimulating hormone measurement TSH Level [facility] Alternaria alternata IgE Ab [Units/volume] in Serum [facility] Work Phone: Iranian house dust mite IgE Ab [Units/volume] in Serum [facility] Work Phone: Anion gap in Serum o r Plasma [facility] Anion gap in Serum o r Plasma [facility] Anion gap in Serum o r Plasma [facility] Anion gap in Serum o r Plasma [facility] Anion gap in Serum o r Plasma [facility] End: 09-27-2024 aPTT in Platelet poor plasma by Coagulation assay APTT Lab STAT STAT (Lab) for 1 Occurrences starting 09/27/2024 until 09/27/2024 [facility] Work Phone: Comment on above: STAT (Lab) for 1 Occ urrences starting 09/27/2024 until 09/27/2024 Bacteria identified in Blood by Culture Blood Culture Microbiology STAT 03/17/2023 8:26 PM EST [facility] Work Phone: End: 09-26-2024 Bacteria identified in Blood by Culture [facility] Work Phone: Comment on above: STAT (Lab) for 1 Occ urrences starting 09/26/2024 until 09/26/2024 End: 09-27-2024 Bacteria identified in Urine by Culture Urine Culture Microbiology Routine Once (Lab) for 1 Occurrences starting 09/27/2024 until 09/27/2024 [facility] Work Phone: Comment on above: Once (Lab) for 1 Occ urrences starting 09/27/2024 until 09/27/2024 Bacteria identified in Urine by Culture Urine Culture Microbiology STAT 09/27/2024 12:34 AM EDT [facility] Work Phone: [place] IgE Ab [Units/volume] in Serum [facility] Work Phone: BUN/Creatinine ratio [facility] BUN/Creatinine ratio [facility] BUN/Creatinine ratio [facility] BUN/Creatinine ratio [facility] BUN/Creatinine ratio [facility] Calcium [Mass/volume ] in Serum or Plasma [facility] Calcium [Mass/volume ] in Serum or Plasma [facility] Calcium [Mass/volume ] in Serum or Plasma [facility] Calcium [Mass/volume ] in Serum or Plasma [facility] Calcium [Mass/volume ] in Serum or Plasma [facility] Carbon dioxide, tota l [Moles/volume] in Central venous blood [facility] Carbon dioxide, tota l [Moles/volume] in Central venous blood [facility] Carbon dioxide, tota l [Moles/volume] in Central venous blood [facility] Carbon dioxide, tota l [Moles/volume] in Central venous blood [facility] Carbon dioxide, tota l [Moles/volume] in Central venous blood [facility] Cat dander IgE Ab [Units/volume] in Serum [facility] Work Phone: Common Ragweed IgE A b [Units/volume] in Serum [facility] Work Phone: Creatinine [Mass/vol ume] in Serum or Plasma [facility] Creatinine [Mass/vol ume] in Serum or Plasma [facility] Creatinine [Mass/vol ume] in Serum or Plasma [facility] Creatinine [Mass/vol ume] in Serum or Plasma [facility] Creatinine [Mass/vol ume] in Serum or Plasma [facility] CT Chest WO contrast [facility] Dog epithelium IgE A b [Units/volume] in Serum [facility] Work Phone: End: 09-26-2024 ECG 12 lead ECG 12 lead ECG STAT Once for 1 Occurrences starting 09/26/2024 until 09/26/2024 [facility] Work Phone: Comment on above: Once for 1 Occurrenc es starting 09/26/2024 until 09/26/2024 End: 02-21-2023 ECG COMPLETE ECG COMPLETE ECG Routine Paroxysmal atrial fibrillation (HCC) Primary hypertension 1 Occurrences starting 02/21/2022 until 02/21/[address] [facility] Work Phone: Comment on above: 1 Occurrences starti ng 02/21/2022 until 02/21/2023 Electrocardiogram, 12-lead PRN ACS symptoms Electrocardiogram, 12-lead PRN ACS symptoms ECG Routine As needed until discontinued starting 03/18/2023 [facility] Work Phone: Comment on above: As needed until disc ontinued starting 03/18/2023 Electrocardiogram, 12-lead PRN ACS symptoms Electrocardiogram, 12-lead PRN ACS symptoms ECG Routine As needed until discontinued starting 03/18/2023 [facility] Work Phone: Comment on above: As needed until disc ontinued starting 03/18/2023 Erythrocyte mean corpuscular volume determination [facility] Erythrocyte mean corpuscular volume determination [facility] Erythrocyte mean corpuscular volume determination [facility] Erythrocyte mean corpuscular volume determination [facility] Erythrocyte mean corpuscular volume determination [facility] house dust mite IgE Ab [Units/volume] in Serum [facility] Work Phone: Evasc rpr dplmnt [id number] ndgft REPAIR, ANEURYSM, ENDOVASCULAR Ruptured infrarenal abdominal aortic aneurysm (AAA) [facility] [place] End: 03-17-2023 Extra Urine [place] [facility] Extra Urine [place] [facility] Lab Timed Once for 1 Occurrences starting 03/17/2023 until 03/17/2023 [facility] Work Phone: Comment on above: Once for 1 Occurrenc es starting 03/17/2023 until 03/17/2023 End: 09-26-2024 Extra Urine [place] [facility] Extra Urine [place] [facility] Lab Timed Once for 1 Occurrences starting 09/26/2024 until 09/26/2024 [facility] Work Phone: Comment on above: Once for 1 Occurrenc es starting 09/26/2024 until 09/26/2024 Glucose [Mass/volume ] in Serum or Plasma [facility] Glucose [Mass/volume ] in Serum or Plasma [facility] Glucose [Mass/volume ] in Serum or Plasma [facility] Glucose [Mass/volume ] in Serum or Plasma [facility] Glucose [Mass/volume ] in Serum or Plasma [facility] Hematocrit [Volume Fraction] of Blood [facility] Hematocrit [Volume Fraction] of Blood [facility] Hematocrit [Volume Fraction] of Blood [facility] Hematocrit [Volume Fraction] of Blood [facility] Hematocrit [Volume Fraction] of Blood [facility] Hemoglobin [Mass/vol ume] in Blood [facility] Hemoglobin [Mass/vol ume] in Blood [facility] Hemoglobin [Mass/vol ume] in Blood [facility] Hemoglobin [Mass/vol ume] in Blood [facility] Hemoglobin [Mass/vol ume] in Blood [facility] IgE [Units/volume] i n Serum or Plasma [facility] Work Phone: [place]ul[place] blue grass IgE Ab [Units/volume] in Serum [facility] Work Phone: Leukocytes [#/volume ] in Blood [facility] Leukocytes [#/volume ] in Blood [facility] Leukocytes [#/volume ] in Blood [facility] Leukocytes [#/volume ] in Blood [facility] Leukocytes [#/volume ] in Blood [facility] Mean corpuscular hemoglobin concentration determination [facility] Mean corpuscular hemoglobin concentration determination [facility] Mean corpuscular hemoglobin concentration determination [facility] Mean corpuscular hemoglobin concentration determination [facility] Mean corpuscular hemoglobin concentration determination [facility] Mean corpuscular hemoglobin determination [facility] Mean corpuscular hemoglobin determination [facility] Mean corpuscular hemoglobin determination [facility] Mean corpuscular hemoglobin determination [facility] Mean corpuscular hemoglobin determination [facility] Measurement of Aspergillus flavus antibody [facility] Work Phone: Measurement of Aspergillus fumigatus antibody [facility] Work Phone: Measurement of Aspergillus niger antibody [facility] Work Phone: Measurement of renal function [facility] Measurement of renal function [facility] Measurement of renal function [facility] Measurement of renal function [facility] Measurement of renal function [facility] Mouse urine proteins [facility] Work Phone: Neutrophil count [facility] Neutrophil count [facility] Neutrophil count [facility] Neutrophil count [facility] Neutrophil count [facility] Neutrophil cytoplasm ic Ab.classic [Units/volume] in Serum [facility] Work Phone: Neutrophil percent differential count [facility] Neutrophil percent differential count [facility] Neutrophil percent differential count [facility] Neutrophil percent differential count [facility] Neutrophil percent differential count [facility] P-ANCA measurement [facility] Work Phone: Patient Education COPD: Chronic Coughing [facility] Work Phone: Patient referral [facility] Work Phone: Plantain (Egyptian) [facility] Work Phone: Platelets [#/volume] in Blood [facility] Platelets [#/volume] in Blood [facility] Platelets [#/volume] in Blood [facility] Platelets [#/volume] in Blood [facility] Platelets [#/volume] in Blood [facility] Potassium measurement [facility] Potassium measurement [facility] Potassium measurement [facility] Potassium measurement [facility] Potassium measurement [facility] End: 09-27-2024 Prothrombin time (PT) Protime-INR Lab STAT STAT (Lab) for 1 Occurrences starting 09/27/2024 until 09/27/2024 [facility] Work Phone: Comment on above: STAT (Lab) for 1 Occ urrences starting 09/27/2024 until 09/27/2024 End: 03-18-2023 Pulse oximetry, continuous Pulse oximetry, continuous Respiratory Care Routine Continuous until discontinued starting 03/18/2023 [facility] Work Phone: Comment on above: Continuous until dis continued starting 03/18/2023 Red blood cell count [facility] Red blood cell count [facility] Red blood cell count [facility] Red blood cell count [facility] Red blood cell count [facility] Red cell distributio n width determination [facility] Red cell distributio n width determination [facility] Red cell distributio n width determination [facility] Red cell distributio n width determination [facility] Red cell distributio n width determination [facility] End: 03-18-2023 Respiratory care eval and treat Respiratory care eval and treat Respiratory Care Routine Once for 1 Occurrences starting 03/18/2023 until 03/18/2023 [facility] Work Phone: Comment on above: Once for 1 Occurrenc es starting 03/18/2023 until 03/18/2023 End: 03-29-2022 RIGHT AND LEFT HEART CATHETERIZATION RIGHT AND LEFT HEART CATHETERIZATION BIC Routine One Time for 1 Occurrences starting 03/29/2022 until 03/29/[address] [facility] Work Phone: Comment on above: One Time for 1 Occur rences starting 03/29/2022 until 03/29/2022 Serum chloride measurement [facility] Serum chloride measurement [facility] Serum chloride measurement [facility] Serum chloride measurement [facility] Serum chloride measurement [facility] Sodium measurement [facility] Sodium measurement [facility] Sodium measurement [facility] Sodium measurement [facility] Sodium measurement [facility] Urea nitrogen [Mass/volume] in Serum or Plasma [facility] Urea nitrogen [Mass/volume] in Serum or Plasma [facility] Urea nitrogen [Mass/volume] in Serum or Plasma [facility] Urea nitrogen [Mass/volume] in Serum or Plasma [facility] Urea nitrogen [Mass/volume] in Serum or Plasma [facility] End: 03-17-2023 Urinalysis complete W Reflex Culture panel - Urine [facility] Service Area Work Phone: Comment on above: Once (Lab) for 1 Occ urrences starting 03/17/2023 until 03/17/2023 End: 09-26-2024 Urinalysis complete W Reflex Culture panel - Urine [facility] Work Phone: Comment on above: Once (Lab) for 1 Occ urrences starting 09/26/2024 until 09/26/2024 Urine culture [facility] [place] IgE Ab [Units/volume] in Serum [facility] Work Phone: [place] IgE Ab [Units/volume] in Serum [facility] Work Phone: [facility] Immunizations Immunization Date Immunization Notes Care Provider [facility] 12-23-2019 influenza virus vacc ine, unspecified formulation Viktoria Calix APRN.HOME SERVICE TECHNICIAN Work Phone: [facility] 12-02-[address] Ashlee Lanier Work Phone: [facility] 02-12-2017 pneumococcal polysaccharide vaccine, [address] Ashlee Lanier MD Work Phone: [facility] 09-07-2014 pneumococcal conjuga te vaccine, [address] Ashlee Lanier MD Work Phone: [facility] 03-03-2005 pneumococcal polysaccharide vaccine, [address] Ashlee Lanier MD Work Phone: [facility] Payers Date Payer Category Payer Self-pay [id number] 2023 Medicare supplementa l policy (as second payer) [employer] [id number] 2018 Unknown 2017 Private Health Insurance [id number] 2017 Unknown [id number] 2014 Medicare 2014 Medicare [id number] 1950 Unknown [id number] 2.840.1.941680.3.579. 2. 1950 Unknown [id number] 2.16840.1.472571.3.579. 2. 1950 Unknown [id number] 2.16.840.1.636587.3.579. 2 1950 Unknown [id number] 2.16.840.1.024599.3.579. 2. 1950 Unknown [id number] 2.16.840.1.774108.3.579. 2.717 1950 Unknown [id number] 2.16.840.1.693586.3.579. 2.717 1950 Unknown [id number] 2.16.840.1.467117.3.579. 2.1243 1950 Unknown [id number] 2.16.840.1.584358.3.579. 2.124 1950 Unknown [id number] 2.16.840.1.109888.3.579. 2.1243 1950 Unknown [id number] 2.16.840.1.639054.3.579. 2.1245 Unknown [id number] 2.16.840.1.119325.3.579. 2.462 Unknown [id number] 2.16.840.1.750019.3.579. 2.462 Unknown [id number] 2.16.840.1.054040.3.579. 2.462 Unknown [id number] 2.16.840.1.837263.3.579. 2.462 Unknown [id number] 2.16.840.1.587323.3.579. 2.462 Unknown [id number] 2.16.840.1.999641.3.579. 2.462 Unknown [id number] 2.16.840.1.344609.3.579. 2.462 Unknown [id number] 2.16.840.1.311539.3.579. 2.462 Unknown [id number] 2.16.840.1.751676.3.579. 2.462 Social History Date Type Detail Facility [facility] Start: 08-24-2021 End: 04-16-2023 Tobacco smoking consumption unknown [facility] Start: 06-12-2020 Occasional [facility] Start: 06-12-2020 None [facility] Start: 06-12-2020 Alone [facility] Start: 06-24-2020 Cigarettes;- [facility] Start: 1950 Sex Assigned At Male [facility] Start: 03-11-2022 End: 10-17-2024 Tobacco smoking status NHIS Ex-smoker [facility] Work Phone: End: 03-03-2005 History of tobacco use Current smoker [facility] Work Phone: End: 03-03-2005 History of tobacco use Cigarette Smoker [facility] Work Phone: Start: 03-11-2022 End: 03-05-2024 Tobacco use and exposure User of smokeless tobacco [facility] Work Phone: History of tobacco use Snuff User [facility] Work Phone: Start: 03-11-2022 End: 03-05-2024 Alcohol intake Current drinker of alcohol (finding) [facility] Start: 05-26-2017 Alcohol Comment occasional [facility] Start: 1950 Sex Assigned At Not on file [facility] Start: 06-06-2022 End: 09-05-2022 History of Social function [facility] Start: 06-06-2022 End: 09-05-2022 Tobacco use panel [facility] Start: 01-25-2022 National Score (1-100), lower number is lower risk 66 [facility] Start: 03-10-2023 Tobacco smoking status INIS Never smoked tobacco [facility] Work Phone: Start: 03-10-2023 End: 09-27-2024 Alcohol intake Lifetime non-drinker (finding) [facility] Work Phone: Start: 02-28-2023 End: 04-03-2024 Exposure to SARS-CoV-2 (event) Not sure [facility] How often to you hav e a drink containing alcohol? Never [facility] How hard is it for y ou to pay for the very basics like food, housing, medical care, and heating Not very hard [facility] In the past 12 month s, was there a time when you were not able to pay the mortgage or rent on time? No [facility] Work Phone: Start: 11-07-2023 End: 11-17-2023 Exposure to SARS-CoV-2 (event) Yes [facility] Start: 06-29-2024 Sex Male (finding) [facility] Start: 09-26-2024 Gender identity Identifies as male gender (finding) [facility] Work Phone: Start: 09-26-2024 Sexual orientation Heterosexual (finding) [facility] Work Phone: Goals Date Patient Goal Desired Activity /State Personal health goal Functional Status Date Assessment Result Facility 10-21-2024 Functional status Stand and pivot [facility] Work Phone: 10-20-2024 Functional status Tolerates Activity Fair [facility] Work Phone: 10-17-2024 Functional status Bedrest;Bedpan [facility] Work Phone: 09-26-2024 Formerly [facility] suicide severity rating scale screener - recent [C-SSRS] [facility] Work Phone: 06-11-2020 Are you deaf, or do you have serious difficulty hearing No 06/11/2020 12:55 PM Tori Frankel RN No [facility] 06-11-2020 Are you blind, or do you have serious difficulty seeing, even when wearing glasses No 06/11/2020 12:55 PM Tori Frankel RN No [facility] 06-11-2020 Do you have serious difficulty walking or climbing stairs Yes 06/11/2020 12:55 PM Tori Frankel RN Yes [facility] 06-11-2020 Do you have difficul ty dressing or bathing Yes 06/11/2020 12:55 PM Tori Frankel RN Yes [facility] 06-11-2020 Because of a physica l, mental, or emotional condition, do you have difficulty doing errands alone such as visiting a physician's office or shopping Yes 06/11/2020 12:55 PM Tori Frankel RN Yes [facility] Mental Status Date Assessment Result Facility 10-21-2024 Cognitive function Voice/Name [facility] Work Phone: 10-19-2024 [facility] 10-17-2024 Cognitive function Voice/Name [facility] Work Phone: 10-13-2024 [facility]ropriate; [facility]: 06-11-2020 Because of a physica l, mental, or emotional condition, do you have serious difficulty concentrating, remembering, or making decisions Yes 06/11/2020 12:55 PM EDT Tori Ortiz RN Yes [facility] Clinical Notes 05-27-2017 to 10-17-2024 Telephone Encounter - Kailey Ureña APRN.[facility] - 09/25/2024 10:54 AM EDTTelephone Encounter - Kailey Ureña APRN.[facility] - 09/25/2024 10:54 AM EDT Note Date & Type Note Facility 10-17-2024 Radiology Diagnostic study note [facility] Imaging Services [address] [place] [address] [id number] Abdomen/Pelvis W IV Cont ONLY MR#: [id number] Acct: [id number] Name: OLI DE LA FUENTE Jr. Rep #: [id number] : 1950 M 73 From: Chuy Carranza MD PCP: Dr. Ashlee Lanier MD Status: REG ER Study:Abdomen/Pelvis W IV Cont ONLY Date of E xam: 10/17/24 Exam# [id number] Ordering Dr: Poncho Lira DO PROCEDURE: CT ABDOMEN/PELVIS W IV CONT ONLY 10/17/2024 REASON FOR EXAM: ABDOMINAL PAIN TECHNIQUE: CT ABDOMEN/PELVIS W IV CONT ONLY Coronal and Sagittal reconstruction series wereprovided. CONTRAST: Isovue 370 VOLUME: 89 mL One or more dose reduction techniques were used (e.g., Automated exposure control, adjustment of the mA and/or kV according to patient size, use of iterative reconstruction technique. RADIATION DOSE SUMMARY: DLP: 1284.5 mGycm COMPARISON: CTA abdomen/pelvis 10/14/2024. FINDINGS: Since 10/14/2024, no significant interval change in the findings of a ruptured infrarenal abdominal aortic aneurysm with a large heterogeneous hematoma collection in the left lower abdominal quadrant/retroperitoneum. Somewhat heterogeneous blood products within the ruptured aneurysm sac and hematoma collection, but no evidence for active arterial contrast extravasation. Prior endovascular stent graft repair which traverses the ruptured aneurysm sac without evidence for active leakage. Patchy areas of dense consolidation in the imaged right posterior lung base likely reflecting pneumonia, similar to prior exam as visualized. Trace bibasilar pleural effusions. Hepatic steatosis. Unremarkable gallbladder. No biliary ductal dilatation. Normal sized spleen. Unremarkable pancreas. Normal adrenal glands. Kidneys are normal in size with symmetric enhancement. No hydronephrosis. Multifocal cortical scarring and/or tiny simple appearing renal cysts. Urinary bladder is irregularly thickened with innumerable bladder wall diverticuli suggestive of chronic infection or neurogenic bladder. Prostate is mildly enlarged and heterogeneous. No evidence of bowel obstruction. Appendix is not definitively identified but there are no pericecal inflammatory changes appreciated. Distal colonic diverticulosis. Wall thickening versus underdistention of the distal rectosigmoid colon may represent colitis. No enlarged abdominopelvic lymph nodes appreciated. No pneumoperitoneum. No acute or aggressive osseous abnormality. Multilevel degenerative changes of the spine. Qualitative osteopenia. Mild generalized subcutaneous edema along the flanks. CT/Abdomen/Pelvis W IV Cont ONLY IMPRESSION: 1. Since 10/14/2024, no significant change in the ruptured infrarenal abdominal aortic aneurysm sac previously repaired with endovascular stent graft, with large left lower quadrant/retroperitoneal hematoma collection. No evidence for active arterial contrast extravasation. Recommend vascular surgery consult if not already obtained. 2. Patchy airspace consolidation in the right lung base, may represent pneumonia. Trace bibasilar pleural effusions. 3. Wall thickening versus underdistention of the rectosigmoid colon may represent colitis. 4. Marked irregular bladder wall thickening with numerous diverticuli, likely sequelae of either chronic infection or neurogenic bladder. Reading Location: [id number] CC: Dr. Poncho Lira DO; Dr. Ashlee Lanier MD ~ Therapeutic Strategy Lead: Signed [facility] 10-14-2024 Radiology Diagnostic study note [facility] Imaging Services [address] [place], [place] [address] CTA Chst, Abd, Pel W and/or WO MR#: [id number] Acct: [id number] Name: OLI DE LA FUENTE Jr. Rep #: [id number] : 1950 M 73 From: Ko Corey MD PCP: Dr. Ashlee Lanier MD Status: REG CLI Study:CTA Chst, Abd, Pel W and/or WO Date of Exam: 10/14/24 Exam# [id number] Ordering Dr: Norris Olmedo MD PROCEDURE: CTA [...] wall thickening. There is evidence of trabeculation ofthe bladder wall as well as right-sided diverticula. Prostatic enlargement. Bowel: Colonic diverticulosis without diverticulitis. Vasculature: There is evidence of an infrarenal abdominal aortic aneurysm. There is evidence of prior endoluminal stent grafting. The [place] abdominal aorta measures 7.5 cm in transverse [...] hematoma. Findings as discussed above. Reading Location: [place] [address] CC: Dr. Ashlee Lanier MD; Dr. Norris Olmedo MD ~ Therapeutic Strategy Lead: Signed [facility] 10-13-2024 Note [facility] Medical Records Department [address] [place] [address] History Physical Exam 10/13/242025 MR#: [id number] Acct: [id number] Name: OLI DE LA FUENTE Jr. Rep #: [id number] : 1950 73 From: Norris Olmedo MD PCP: Dr. Ashlee Lanier MD Status:ADM IN Location: [place] [address] HPI - General General Date of Admission: 10/13/24 Date of Service: 10/14/24 Chief Complaint: Here for rehabilitation. HPI Narrative OLI DE LA FUENTE, is a 73 Male who presents with followin09/27/2024 Admit to [facility]. COPD on 2 liters oxygen at home, [...] rehabilitation, strengthening, prior to discharge home alone. [facility] Medical History (Updated 10/13/24 @ 20:59 by [...] Unknown Rx s (more content not included)... [facility] 09-25-2024 Telephone encounter Note Prescription was approved Please let the patient know he is due for updated kidney and potassium check. I placed these orders. These are nonfasting labs. Kailey Ureña APRN.RED [facility] 09-25-2024 Miscellaneous Notes Prescription was approved Please let the patient know he is due for updated kidney and potassium check. I placed these orders. These are nonfasting labs. Kailey Ureña APRN.RED GAMAL 03/05/24 Darryl 03/04/25 Niranjan Prescription Refill Information The patient [...] 2024 3:13 PM documented in this encounter [facility] 09-24-2024 Telephone encounter Note GAMAL 03/05/24Darryl 03/04/25 Niranjan [facility] 09-24-2024 Telephone encounter Note Prescription Refill Information [...] Isabel Man September 24, 2024 3:13 PM [facility] 07-14-2024 Evaluation note Diagnosis Onset Date Resolution Severe persistent allergic asthma acute July 14, 2024 2:55pm Asthma-COPD overlap syndrome chronic July 14, 2024 2:55pm Bronchiectasis chronic July 14, 2024 2:55pm Hypoxia chronic July 14, 2024 2:55pm MARK (obstructive sleep apnea) chronic July 14, 2024 2:55pm Pulmonary nodule chronic July 2:55pm Acute respiratory failure with hypoxia acute October 13 7:58pm Asthma acute October 13, 2 025 7:58pm Atrial fibrillation acute 2024 7:58pm Chronic heart failure with preserved ejection fraction (HFpEF) acute October 13 7:58pm Depression acute October 13, 2 025 7:58pm DVT (deep venous thrombosis) acute October 13 7:58pm 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) acute October 13 7:58pm Heparin induced thrombocytopenia (HIT) acute October 132024 7:58pm Hypothyroidism acute October 7:58pm Postoperative ileus acute 2024 7:58pm Ruptured abdominal aortic aneurysm acute October 13 7:58pm BPH (benign prostatic hyperplasia) chronic October 13 7:58pm COPD (chronic obstructive pulmonary disease) chronic October 13, 2024 7:58pm Coronary artery disease chronic A ugust 2024 7:58pm Debility chronic October 13, 2 025 7:58pm Hypertension chronic October 13, 2024 7:58pm [facility] Work Phone: 1(686) 708-653502-01-2025 History of Present illness Narrative* SHRUTHI Nguyen - 04/03/2024 2:20 PM EST [facility] SHRUTHI Nguyen Visit Note - 04/03/2024 3:18 PM This note was generated with voice recognition software and may contain errors including spelling, grammar, syntax, and misrecognization of what was dictated. Patient: Oli De La Fuente, , 73 y.o., male PCP: Ashlee Lanier MD ALLERGIES: Allergies Allergen Reactions Codeine Other and [...] Xarelto 20 mg tablet Take by mouth. PAST MEDICAL HX: Patient Active Problem List Diagnosis (none) - all problems resolved or deleted SURGICAL HX: Past Surgical History: Procedure Laterality Date CORONARY STENT PLACEMENT SINUS SURGERY Bilateral FAMILY HX: No pertinent history. SOCIAL HX: reports that he quit smoking about 19 years ago. His smoking use included cigarettes. His smokelesstobacco use includes snuff. CHIEF COMPLAINT: Chief Complaint Patient presents with [...] daily prednisone (is unsure how much, and dosingnot available in viewable records today) - he [...] noted- having coughing fits during visit. Mildly-dyspneic withambulation; able to maintain SpO2. Cardiovascular: Normal rate, Regular rhythm. Normal S1S2. + murmur; no r/g. No peripheral edema. Gastrointestinal: Soft, non-tender, non-distended; no palpable masses or organomegaly. Bowel soundsnormoactive. Musculoskeletal: Grossly normal; appropriate for age. Integumentary: Bison, warm, dry, and intact. No rashes or skin discoloration appreciated. Good skin turgor. Neurologic: Alert and oriented, no gross deficits. Cognition and Speech: Oriented, Speech clear and coherent. Psychiatric: Cooperative, Appropriate mood & affect. Medical Decision Making LABORATORY or RADIOLOGICAL IMAGING [...] as he gets back home. Instructed to pushfluids, rest, and to use appropriate over the [...] and answered. SHRUTHI Nguyen Advanced Practice Provider [facility]: 1(221) 149-143001-14-2025 Evaluation note* Diagnosis Onset Date Resolution Status Admit Date Asthma-COPD overlap syndrome chronic March 16, 2024 2:52pm Bronchiectasis chronic March 162024 2:52pm Hypoxia chronic March 16, 2024 2:52pm MARK (obstructive sleep apnea) chroni c March 16, 2024 2:52pm Pulmonary nodule chronic March 16, 2024 2:52pm Cerebrovascular disease acute F ebruary 2024 1:28pm Asthma-COPD overlap syndrome chronic April 12, 2024 1:28pm Chronic anticoagulation chronic F ebruary 10th, 2025 1:28pm COPD (chronic obstructive pulmonary disease) chronic April 1:28pm Debility chronic April 12, 2024 1:28pm Hyperlipidemia chronic April 032024 1:28pm Hypertension chronic April 1:28pm MARK (obstructive sleep apnea) chroni c April 12, 2024 1:28pm Paroxysmal atrial fibrillation chron ic April 12, 2024 1:28pm Pulmonary nodule chronic April 12, 2024 1:28pm Acute exacerbation of chroni c obstructive pulmonary disease noneactive 2024 1:28pm [facility] Work Phone: 1(498) 123-620501-14-2025 Evaluation note* Diagnosis Onset Date Resolution Status Admit Date Asthma-COPD overlap syndrome chronic March 16, 2024 2:52pm Bronchiectasis chronic March 162024 2:52pm Hypoxia chronic March 16, 2024 2:52pm MARK (obstructive sleep apnea) chroni c March 16, 2024 2:52pm Pulmonary nodule chronic March 16, 2024 2:52pm Cerebrovascular disease acute F 2024 1:28pm Asthma-COPD overlap syndrome chronic April 12, 2024 1:28pm Chronic anticoagulation chronic 2024 1:28pm COPD (chronic obstructive pulmonary disease) chronic April 1:28pm Debility chronic April 12, 2024 1:28pm Hyperlipidemia chronic April 032024 1:28pm Hypertension chronic April 1:28pm MARK (obstructive sleep apnea) chroni c April 12, 2024 1:28pm Paroxysmal atrial fibrillation chron ic April 12, 2024 1:28pm Pulmonary nodule chronic April 12, 2024 1:28pm Acute exacerbation of chroni c obstructive pulmonary disease noneactive 2024 1:28pm Severe persistent allergic asthma acute July 14, 2024 2 :55pm [facility] Work Phone: 1(181) 775-221801-03-2025 NoteHNO ID: [id number] Author: IDANIA FRAIRE, DO Service: ? Author Type: Physician Type: Progress Notes Filed: 03/05/2024 11:05 Note Text: [facility] SECTION OF [facility] CARDIOLOGY [facility] OUTPATIENT VISIT DATE March 05, 2024 PRIMARY CARE PHYSICIAN: Ashlee Lanier [address] [address] HISTORY OF PRESENT ILLNESS: Mr. De La [...] artery disease) Chronic obstructive pulmonary disease (COPD) ([facility]) Diastolic congestive heart failure (HCC) 03/11/2022 Dyslipidemia Flutter-fibrillation ([facility]) Heart attack ([facility]) Hypertension NSTEMI (non-ST elevated myocardial infarction) ([facility]) 05/2018 Stroke ([facility]) Thyroid disease TIA (transient ischemic attack) PAST [...] Father other (htn) Maternal (more content not included)...[facility] 03-05-2024 History of Present illness Narrative* Idania Fraire DO - 03/05/2024 10:38 AM EST Images from the original note were not included. [facility] OUTPATIENT VISIT DATE March 05, 2024 PRIMARY CARE PHYSICIAN: Ashlee Lanier [address] [facility] [address] [place] [address] HISTORY OF PRESENT ILLNESS: Mr. 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 levothyroxine (SYNTHROID) 75 mcg tablet Take 75 mcg by mouth daily before breakfast. MULTIVITAMIN TAB Take one(1) tablet daily. albuterol sulfate(VENTOLIN HFA 90 MCG/ACTUATION AEROSOL INHALER) 2 puffs every 4 hours as needed Idania Fraire, , FACC, FAC Computer Meteorologist, [facility] Computer Meteorologist, [facility] Computer Meteorologist, [facility] Computer Meteorologist, [facility] Computer Meteorologist, [facility] Clinical Software Product Specialist Profressor of Medicine, [facility] Staff Credit Investigator, Pinky Camarena Department of Cardiovascular Medicine/Heart and Vascular [place], [facility] Please note: This note has been produced using speech recognition software and may contain errors related to that system including leonides, punctuation, spelling, words, gender and phrases that may be inappropriate. documented in this [facility] History of Present illness Narrative* Manuel Huang Linacynthia, FOOD CONSULTANT-HOME SERVICE TECHNICIAN - 11/17/2023 4:55 PM EDT 73 y.o. [...] Review Audit Reviewed by Yaneth Chatterjee MA ([employer]ter) on 11/17/23 at 1657 Medication Order Taking? Sig Documenting Provider Last Dose Status albuterol 2.5 mg /3 mL (0.083 %) nebulizer solution [id number] Yes USE 1 VIAL VIA NEBULIZER EVERY 4 HOURS NEEDED for SHORTNESS OF BREATH or FOR WHEEZING Historical Provider, Taking Active amLODIPine (Norvasc) 5 mg tablet [id number] Yes Take 1 tablet (5 mg) by mouth once daily. Historical Provider, Taking Active atorvastatin (Lipitor) 80 mg tablet [id number] Yes Historical Provider, Taking Active fluticasone (Flonase Allergy Relief) 50 mcg/actuation nasal spray [id number] Yes Administer into affected nostril(s). Historical Provider, Taking Active furosemide (Lasix) 20 mg tablet [id number] Yes TAKE ONE-HALF TABLET (10mg) BY MOUTH EVERY OTHER DAY Historical Provider, Taking Active ipratropium (Atrovent) 0.02 % nebulizer solution [id number] Yes USe contents OF 1 (ONE) vial via nebulizer EVERY 6 HOURS NEEDED for SHORTNESS OF BREATH or FOR WHEEZING Historical ProviderMD TakingActive ipratropium-albuteroL (Duo-Neb) 0.5-2.5 mg/3 mL nebulizer solution [id number] Yes Take 3 mL by nebulization every 6 hours if needed for wheezing. Manuel Abebe APRN-RED Taking Active levothyroxine (Synthroid, Levoxyl) 75 mcg tablet [id number] Yes Take 1 tablet (75 mcg) by mouth once daily. Historical Provider, Taking Active metoprolol succinate XL (Toprol-XL) 50 mg 24 hr tablet [id number] Yes Take 1 tablet (50 mg) by mouth once daily. Historical Provider, Taking Active montelukast (Singulair) 10 mg tablet [id number] Yes Take 1 tablet (10 mg) by mouth once daily at bedtime. Historical Provider, Taking Active nitroglycerin (Nitrostat) 0.4 mg SL tablet [id number] Yes DISSOLVE 1 TABLET UNDER THE TONGUE NEEDED FOR CHEST PAIN- MAY REPEAT EVERY 5 MINUTES IF NEEDED ( MAX 3 DOSES.- IF NO RELIEF CALL 911) Historical Provider, Taking Active Plavix 75 mg tablet [id number] Yes Take 1 tablet (75 mg) by mouth once daily. Historical Provider, Taking Active potassium chloride CR 20 mEq ER tablet [id number] Yes Historical Provider, Taking Active sertraline (Zoloft) 100 mg tablet [id number] Yes Historical Provider, Taking Active spironolactone (Aldactone) 25 mg tablet [id number] Yes Historical Provider, Taking Active Trelegy Ellipta 100-62.5-25 mcg blister with device [id number] Yes Historical Provider, Taking Active Xarelto 20 mg tablet [id number] Yes Take by mouth. Historical Provider, Taking [...] RSV PCR Not Detected Not Detected Assessment/Plan/MDM Oli was seen today for uri. Diagnoses and [...] any new concerns. I did personally review Oli's past medical history, surgical history, social history, [...] SDOH: Another factor that I considered in Oli's care was his Social Determinants of Health (SDOH). During this UC encounter, he did not have social determinants of health. Those SDOH influencing Oli's care are: none Manuel Abebe CNP [facility] [phone] [facility] Work Phone: 1(578) 703-386507-03-2024 Telephone encounter Note* Telephone Encounter - Narda Arias - 09/03/2023 10:37 AM EDT Daughter called back and patient was scheduled for 03/08/[address] Fraire. [facility]07-03-2024 Miscellaneous Notes* Telephone Encounter - Narda Arias [...] PM EDT Please call daughter Ashtyn, at [phone], to schedule his 6 mo f/u. documented in [facility] Telephone encounter Note * Telephone Encounter - Lo Disla - 09/03/2023 10:22 AM EDT First Attempt- Called pts daughter and left vm to call back to schedule [facility]07-02-2024 Telephone encounter Note* Telephone Encounter - Arslan Radford LPN - 09/02/2023 1:53 PM EDT Please call daughter Ashtyn, at [phone], to schedule his 6 mo f/u. [facility]07-02-2024 NoteHNO ID: [id number] Author: IDANIA FRAIRE, DO Service: ? Author Type: Physician Type: Progress Notes Filed: 09/02/2023 15:55 Note Text: [facility] SECTION OF REGIONAL CARDIOLOGY [facility] OUTPATIENT VISIT DATE September 02, 2023 PRIMARY CARE PHYSICIAN: Ashlee Lanier [address] [address] HISTORY OF PRESENT ILLNESS: Mr. De La [...] artery disease) Chronic obstructive pulmonary disease (COPD) ([facility]) Diastolic congestive heart failure ([facility]) 03/11/2022 Dyslipidemia Flutter-fibrillation ([facility]) Heart attack ([facility]) Hypertension NSTEMI (non-ST elevated myocardial infarction) ([facility]) 05/2018 Stroke ([facility]) Thyroid disease TIA (transient ischemic attack) PAST [...] (ALDACTONE) 25 mg ta (more content not included)...[id number] History of Present illness Narrative* Idania Fraire DO - 09/02/2023 11:49 AM EDT Images from the original note were not included. [facility] SECTION OF REGIONAL CARDIOLOGY [facility] OUTPATIENT VISIT DATE September 02, 2023 PRIMARY CARE PHYSICIAN: Ashlee Lanier [address] [place] [address] HISTORY OF PRESENT ILLNESS: Mr. 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 levothyroxine (SYNTHROID) 75 mcg tablet Take 75 mcg by mouth daily before breakfast. MULTIVITAMIN TAB Take one(1) tablet daily. albuterol sulfate(VENTOLIN HFA 90 MCG/ACTUATION AEROSOL INHALER) 2 puffs every 4 hours as needed nitroglycerin sublingual (NITROSTAT) 0.4 mg SL tablet Dissolve 1 tablet under the tongue every 5 minutes as needed. Idania Fraire DO, [facility] Computer Meteorologist, [facility] Computer Meteorologist, [facility] Computer Meteorologist, [facility] Computer Meteorologist, [facility] Computer Meteorologist, [facility] Clinical Software Product Specialist Profressor of Medicine, [facility] Staff Credit Investigator, Pinky Camarena Department of Cardiovascular Medicine/Heart and Vascular [place], [facility] Please note: This note has been produced using speech recognition software and may contain errors related to that system including leonides, punctuation, spelling, words, gender and phrases that may be inappropriate. documented in this encounter[facility] Nurse Note* Ramila Sommers RN - 03/21/2023 [...] going or personal care needs outside of HHC. Denies further questions or concerns. Reviewed follow up appts with pt, pt daughter, and verbalizes understanding. Catrina LLAMAS [facility]-19-2024 Nurse Note* Ramila Sommers RN - 03/21/2023 [...] going or personal care needs outside of HHC. Denies further questions or concerns. Reviewed follow [...] 03/20/2023 12:40 PM EST Met with Mr Oli De La Fuente in the ICU room [...] Pulmonary Disease COPD. Patient follows with a imcu specialist Dr Ocampo in [place]. They both deny any further questions at [...] of discharge may benefit documented in this [facility] Work Phone: 1(969) 315-709701-19-2024 History of Present illness Narrative* Miquel Torres PharmD - 03/21/2023 1:38 PM EST Medication Education Medication education for Oli De La Fuente was provided to the [...] period of time due to his h/o VT and heart disease --> pharmacist advised to [...] new medicines are to be sent (Drug Deny Morales) Miquel Torres PharmD, BCPS * Odette Valencia, HIMANSHU - 03/21/2023 11:45 AM EST SpO2 on room air at rest 91-94%. Walking patient on room air SpO2 87%. Placed on 2L NC while walking SpO2 942-94%. Doctor notified. * Deepika Christianson, PT - 03/21/2023 11:02 AM EST Physical Therapy Physical Therapy Evaluation Patient Name: Oli De La Fuente Today's Date: 03/21/2023 Time [...] OT Co-Treatment Reason: co-eval with OT Jade ot optimize patient safety Prior to Session Communication: Bedside nurse (sugar Jones patient hasn't been OOB today) Patient Position [...] Prior Function Per Pt/Caregiver Report Level of [place]: Independent with ADLs and functional transfers, Independent [...] to coughing fits with ambulation Outcome Measures: [facility] Basic Mobility Turning from your back to [...] Goal 1 Start: 03/21/23 Expected End: 04/03/23 Oli De La Fuente will transfer sit to and from stand using least restrictive assistive device as appropriate and agreeable to, independently PT Goal 2 Start: 03/21/23 Expected End: 04/03/23 Oli De La Fuente will ambulate 150 ft with assistive device as appropriate, level surface, good balance, steady mod Indep PT Goal 3 Start: 03/21/23 Expected End: 04/03/23 Patient will participate in 30 min PT session without fatigue with 2 or less 1 min seated rest breaks Pain - Adult Education Documentation No documentation found. Education Comments No comments found. * Jade Guy, OT - 03/21/2023 9:47 AM EST Occupational Therapy Evaluation Patient Name: Oli De La Fuente Today's Date: 03/21/2023 Time Calculation Start Time: 946 Stop Time: 0959 Time Calculation (min): 12 min Assessment: OT [...] daughter following discharge Prior Function: Level of [place]: Independent with ADLs and functional transfers, Independent [...] Function: Gross Grasp: Functional Coordination: Functional Outcome Measures:[facility] Daily Activity Putting on and taking off [...] Bhardwaj MD - 03/20/2023 2:13 PM EST Oli De La Fuente is a 72 y.o. male on day 2 of admission presenting with COPD (chronic obstructive pulmonary disease) ([facility]). Subjective Seen in room, sitting in chair. [...] Image Results Vascular [place] [address] ext-2528, Vascular Lab Report [facility] US PVR WITHOUT EXERCISE Patient Name: OLI DE LA FUENTE Reading Physician: [id number] Terell Odom MD Study Date: 03/19/2023 Ordering Provider: [id number] PALOMO FARNSWORTH MRN/PID: [id number] Fellow: Technologist: James Mandel RVT Date of /Age: 9 1950 / 72 years Technologist 2: Camille Underwood RVT/AB Gender: M Admission Status: Inpatient Location Performed: [facility] Diagnosis/ICD: Peripheral vascular disease, unspecified-I73.9 CPT Codes: 17666 Peripheral artery MARISSA Only CONCLUSIONS: Right Lower [...] Left Brachial Pressure 140 mmHg 140 mmHg [id number] Terell Odom MD Final XR hand right 3+ views Narrative: Interpreted By: Tariq Zamora, STUDY: XR HAND RIGHT 3+ VIEWS 03/19/2023 1:43 pm INDICATION: Signs/Symptoms:Index finger paranychion COMPARISON: None. ACCESSION NUMBER(S): [id number] ORDERING CLINICIAN: NICOLE REAVES TECHNIQUE: Three views of the right hand including AP, oblique and lateral projections were obtained. FINDINGS: There is no evidence of acute fracture or dislocation identified. Moderate to severe hypertrophic degenerative changes are seen in the 2nd distal interphalangeal joint. Yojs-vd-wsicjzif degenerative changes are seen in the 3rd distal interphalangeal joint. Mild degenerative changes are seen in the remaining interphalangeal joints. Impression: 1. No fracture or dislocation. 2. Degenerative changes, as described above. MACRO: None. Signed by: Tariq Zamora 03/19/2023 3:42 PM Dictation workstation: [id number] CT foot right w IV contrast, CT tibia fibula right w IV contrast Narrative: Interpreted By: JoseJ uan De Leon, STUDY: CT FOOT RIGHT W IV CONTRAST; CT TIBIA FIBULA RIGHT W IV CONTRAST; ; 03/18/2023 4:38 pm INDICATION: Signs/Symptoms:eval infection; Signs/Symptoms:infection. Right lower extremity wound with concern for infection, dog scratch dim 3 weeks ago, wound became painful in red 10 days ago. Skin discontinuity along medial posterior right ankle COMPARISON: None. ACCESSION NUMBER(S): [id number]; [id number] ORDERING CLINICIAN: PALOMO FARNSWORTH TECHNIQUE: Intravenous contrast [...] De Leon 03/19/2023 1:51 PM Dictation workstation: [id number] XR foot right 3+ views, XR ankle right 3+ views, XR tibia fibula right 2 views Narrative: Interpreted By: Tariq Zamora, STUDY: XR ANKLE RIGHT 3+ VIEWS; XR TIBIA FIBULA RIGHT 2 VIEWS; XR FOOT RIGHT 3+ VIEWS; 03/18/2023 10:22 pm INDICATION: Signs/Symptoms:infection wound , injury; Signs/Symptoms:infection. COMPARISON: None. ACCESSION NUMBER(S): [id number]; [id number]; [id number] ORDERING CLINICIAN: LIBERTAD BERKOWITZ TECHNIQUE: Three views [...] Tariq Zamora 03/19/2023 11:37 AM Dictation workstation: [id number] Physical Exam Gen: NAD, A&O x 3, [...] Principal Problem: COPD (chronic obstructive pulmonary disease) ([facility]) Right lower leg cellulitis with open wound [...] 35 minutes. Paige Langford MD * Libertad Berkowitz, DPM - 03/20/2023 1:53 PM EST Oli De La Fuente is a 72 y.o. male on day 2 of admission presenting with COPD (chronic obstructive pulmonary disease) ([facility]). Subjective This patient was seen bedside late [...] Principal Problem: COPD (chronic obstructive pulmonary disease) ([facility]) Infection right lower extremity Wound right lower [...] from a podiatry standpoint. To follow-up at [facility] in [place] with Dr. Berkowitz in about 1 week after discharge: Call office at [phone]. Please contact if questions. Libertad Berkowitz DPM FACFAS [facility] Contact via [employer] * Nicole Reaves MD - 03/20/2023 7:40 AM EST Oli De La Fuente is a 72 y.o. male on day 2 of admission presenting with COPD (chronic obstructive pulmonary disease) ([facility]). Subjective Pt is in a chair this [...] this patient. Nicole Reaves MD * Selma M Andrew, PharmD - 03/20/2023 7:21 AM EST Vancomycin Dosing by Pharmacy- FOLLOW UP Oli De La Fuente is a 72 y.o. [...] Farnsworth MD - 03/19/2023 10:13 PM EST Oli De La Fuente is a 72 y.o. male on day 1 of admission presenting with COPD (chronic obstructive pulmonary disease) ([facility]). Subjective Shortness of breath somewhat better Currently [...] US PVR without exercise Result Date: 03/19/2023 [place] [address] ext-2528, Vascular Lab Report VAS US PVR WITHOUT EXERCISE Patient Name: OLI Wade Physician: [id number] Terell Schultz MD Study Date: 03/19/2023 Ordering Provider: [id number] PALOMO FARNSWORTH MRN/PID: [id number] Fellow: Technologist: James Mandel RVT Date of /Age: 9 1950 / 72 years Technologist 2: Camille Underwood RVT/AB Gender: M Admission Status: Inpatient Location Performed: [facility] Diagnosis/ICD: Peripheral vasculardisease, unspecified-I73.9 CPT Codes: 74237 Peripheral artery MARISSA Only CONCLUSIONS: Right Lower [...] Left Brachial Pressure 140 mmHg 140 mmHg [id number] Terell Odom MD Final XR hand right 3+ views Result Date: 03/19/2023 Interpreted By: Tariq Zamora, STUDY: XR HAND RIGHT 3+ VIEWS 03/19/2023 1:43 pm INDICATION: Signs/Symptoms:Index finger paranychion COMPARISON: None. ACCESSION NUMBER(S): [id number] ORDERING CLINICIAN: NICOLE REAVES TECHNIQUE: Three views of the right hand including AP, oblique and lateral projections were obtained. FINDINGS: There is no evidence of acute fracture or dislocation identified. Moderate to severe hypertrophic degenerative changes are seen in the 2nd distal interphalangeal joint. Wtje-bb-awyboelv degenerative changes are seen in the 3rd distal interphalangeal joint. Mild degenerative changes are seen in the remaining interphalangeal joints. 1. No fracture or dislocation. 2. Degenerative changes, as described above. MACRO: None. Signed by:Tariq Zamora 03/19/2023 3:42 PM Dictation workstation: [id number] CT foot right w IV contrast Result [...] medial posterior right ankle COMPARISON: None. ACCESSIONNUMBER(S): [id number]; [id number] ORDERING CLINICIAN: PALOMO FARNSWORTH TECHNIQUE: Intravenous contrast [...] De Leon 03/19/2023 1:51 PM Dictation workstation: [id number] CT tibia fibula right w IV contrast [...] medial posterior right ankle COMPARISON: None. ACCESSIONNUMBER(S): [id number]; [id number] ORDERING CLINICIAN: PALOMO FARNSWORTH TECHNIQUE: Intravenous contrast [...] De Leon 03/19/2023 1:51 PM Dictation workstation: [id number] XR foot right 3+ views Result Date: 03/19/2023 Interpreted By: Tariq Zamora, STUDY: XR ANKLE RIGHT 3+ VIEWS; XR TIBIA FIBULA RIGHT 2 VIEWS; XR FOOT RIGHT 3+ VIEWS; 03/18/2023 10:22 pm INDICATION: Signs/Symptoms:infection wound , injury; Signs/Symptoms:infection. COMPARISON: None. ACCESSION NUMBER(S): [id number]; [id number]; [id number] ORDERING CLINICIAN: LIBERTAD BERKOWITZ TECHNIQUE: Three views [...] Tariq Zamora 03/19/2023 11:37 AM Dictation workstation: [id number] XR ankle right 3+ views Result Date: 03/19/2023 Interpreted By: Tariq Zamora, STUDY: XR ANKLE RIGHT 3+ VIEWS; XR TIBIA FIBULA RIGHT 2 VIEWS; XR FOOT RIGHT 3+ VIEWS; 03/18/2023 10:22 pm INDICATION: Signs/Symptoms:infection wound , injury; Signs/Symptoms:infection. COMPARISON: None. ACCESSION NUMBER(S): [id number]; [id number]; [id number] ORDERING CLINICIAN: LIBERTAD BERKOWITZ TECHNIQUE: Three views [...] Tariq Zamora 03/19/2023 11:37 AM Dictation workstation: [id number] XR tibia fibula right 2 views Result Date: 03/19/2023 Interpreted By: Tariq Zamora, STUDY: XR ANKLE RIGHT 3+ VIEWS; XR TIBIA FIBULA RIGHT 2 VIEWS; XR FOOT RIGHT 3+ VIEWS; 03/18/2023 10:22 pm INDICATION: Signs/Symptoms:infection wound , injury; Signs/Symptoms:infection. COMPARISON: None. ACCESSION NUMBER(S): [id number]; [id number]; [id number] ORDERING CLINICIAN: LIBERTAD BERKOWITZ TECHNIQUE: Three views [...] Tariq Zamora 03/19/2023 11:37 AM Dictation workstation: [id number] ECG 12 lead Result Date: 03/18/2023 Sinus [...] Transthoracic Echo (TTE) Complete Result Date: 03/18/2023 [place] [id number], TRANSTHORACIC ECHOCARDIOGRAM REPORT Patient Name: OLI DE LA FUENTE Reading Physician: [id number] Otero MD Study Date: 03/18/2023 Ordering Provider: [id number] PALOMO FARNSWORTH MRN/PID: [id number] Fellow: Nurse: Mariana Zamudio RN Date of /Age: 9 1950 / 72 years Mobile Application Engineer: EDWIGE Guido RVT Gender: M Additional Staff: Height: 185.42 cm Admit Date: 03/17/2023 Weight: 89.81 kg Admission Status: Inpatient - Routine BSA: 2.14 m2 Department Location: [address]-ICU Blood Pressure: 119 /74 mmHg Study Type: TRANSTHORACIC ECHO (TTE) COMPLETE Diagnosis/ICD: Sepsis, unspecified organism-A41.9; Severe sepsis with septic shock-R65.21 Indication: Septic Shock CPT Codes: Echo Limited-11261; Doppler Limited-02153 Patient History: Pertinent History: COPD. No previous [...] RV Major 9.0 cm TAPSE: 25.3 mm [id number] Arnold Otero MD Electronically signed on 03/18/2023 at 1:15:[address] angio chest for pulmonary embolism Result Date: 03/17/2023 Interpreted By: Rubén Waller, STUDY: CT ANGIO CHEST FOR PULMONARY EMBOLISM; 03/17/2023 10:31 pmINDICATION: Signs/Symptoms:dyspnea. COMPARISON: Chest radiograph 03/17/2023 ACCESSION NUMBER(S): [id number] ORDERING CLINICIAN: QUINN CAMARILLO TECHNIQUE: Axial CTA [...] Rubén Waller 03/17/2023 11:02 PM Dictation workstation: [id number] Results for orders placed or performed during [...] Principal Problem: COPD (chronic obstructive pulmonary disease) ([facility]) 72-year-old male with history of hypertension, hyperlipidemia, [...] wound with infection History Of Present Illness Oli De La Fuente is a 72 y.o. [...] a past medical history of Atrial fibrillation ([facility]), COPD (chronic obstructive pulmonarydisease) ([facility]), Coronary artery disease, Hypertension, Hypothyroidism, and Stroke ([facility]). Surgical History He has a past surgical [...] and symmetrical and lacking with 10 g [place] Suly monofilament. Musculoskeletal: Active range of motion [...] Barreto DO - 03/19/2023 12:47 PM EST Oli De La Fuente is a 72 y.o. male on day 1 of admission presenting with COPD (chronic obstructive pulmonary disease) ([facility]). Subjective Patient seen and examined at the [...] Principal Problem: COPD (chronic obstructive pulmonary disease) ([facility]) Sepsis with source appearing to be skin [...] bedside. Provided them with the resources or [place] [facility] and [facility] for MOW and assistance [...] to follow. Thais Ramos BSN/RN-TCC * Ayanna Johnston RPh - 03/19/2023 7:29 AM EST Vancomycin Dosing by Pharmacy- FOLLOW UP Oli De La Fuente is a 72 y.o. [...] PM EST Vancomycin Dosing by Pharmacy- INITIAL Oli De La Fuente is a 72 y.o. [...] hours. This dosing regimen is predicted by [employer] to result in the following pharmacokinetic parameters: [...] No Patient Choice Provider Choice list and [facility] website (https://medicare.gov/care-compare#search) for post-acute Quality and Resource Measure Data were provided and reviewed with: Other (Comment) (NA) Patient / Family choosing to utilize agency / facility established prior to hospitalization No Met with pt at the bedside and verified address, phone number and emergency contact information. PCP is Chaya last seen in May 2022 pharmacy is [facility]. Pt has percussion vest and nebulizer from [facility]. He pays for a maid monthly. His daughter sets up his pills. Daughter asked about MOW Ne told her to contact the [facility] agency on aging and they could assist her with this. Pt asked about discounts for seniors on utilities and I inquired with SW and they suggested contacting [facility] Agency on aging I them know that info. Pt is independent and lives alone and feels safe. Plans to return home at discharge. [facility] is . ADOD 48-[address] to [...] at 03/17/2023 11:18 PM documented in this [facility] Work Phone: 1(590) 945-244001-19-2024 Hospital Discharge instructions* Discharge Instr - Other [...] Last Reviewed Date 2020-08-03 documented in this [facility] Work Phone: 1(719) 666-226501-19-2024 Hospital course Narrative* Paige Bhardwaj MD - 03/21/2023 11:39 AM EST Discharge Diagnosis COPD (chronic obstructive pulmonary disease) ([facility]) Right lower leg cellulitis with open wound [...] 100-62.5-25 mcg blister with device Generic drug: hqrielfihus-ioxliiqyf-ytwizypx Xarelto 20 mg tablet Generic drug: rivaroxaban STOP taking these medications doxycycline 100 mg tablet Commonly known as: Adoxa losartan 100 mg tablet Commonly known as: Cozaar Where to Get Your Medications These medications were sent to [facility] - [place], [place] [address] [facility] [address] [facility] [address] amoxicillin-pot clavulanate 875-125 mg tablet lactobacillus acidophilus capsule povidone-iodine 7.5 % solution predniSONE 10 mg tablet Test Results Pending At Discharge Pending Labs Order Current Status Extra Urine Barragan Tube Collected (03/17/23 9865) Urinalysis with Reflex Culture and Microscopic In [...] minutes. Paige Langford MD documented in this [facility] Work Phone: [phone]) 414-169801-19-2024 Miscellaneous Notes* Care Plan - Mary Herrmann RN - 03/21/2023 11:05 AM EST Care Transitions: Patient reviewed during care round meeting this AM. Pharmacy looking into medications to discharge home with; IV ATB vs oral. Spoke to oswald Chamorro @ [phone] and received an email from her with [facility] agency yoon. Will send referral to [facility] per choice through [facility]. Verified patient will be discharging to daughter debra @ [address] [place] [address] in [place]. Mary Herrmann RN/TCC - 1120 Per secure chat with Pharmacist [facility] patient will discharge on oral ATB instead of IV ATB. Will notify [facility]HC and daughter. Care team to follow for [facility] acceptance. Mary Herrmann RN/TCC - 7910 Received a call from Karen Hernandez liaison for [facility]. Stated they are able to provide services. [...] ashort time after discharge. Her address is [address] [place] [address]. Discussed going home with daughter to her house and the benefit of [facility] services. Patient and daughter agreeable. [facility] agency list provided. Daughter will let this [facility] or SW know an agency choice after [...] Voiced understanding. Care team to follow for [facility] agency choice and referral. Mary Herrmann RN/TCC [...] distress. Vital signs currentlystable. documented in this [facility] Work Phone: 1(508) 574-309401-19-2024 Plan of care note* Care Plan - Mary Herrmann RN - 03/21/2023 11:05 AM EST Care Transitions: Patient reviewed during care round meeting this AM. Pharmacy looking into medications to discharge home with; IV ATB vs oral. Spoke to daughter Ashtyn @ [phone] and received an email from her with [facility] agency yoon. Will send referral to [facility]. Verified patient will be discharging to daughter home @ [address] [place] [address] road [facility] in [place]. Mary Herrmann RN/TCC - 1470 Per secure chat with Pharmacist [facility] patient will discharge on oral ATB instead of IV ATB. Will notify [facility] and daughter. Care team to follow for [facility] acceptance. Mary Herrmann RN/TCC - [id number] Received a call from Karen Hernandez liaison for [facility]. Stated they are able to provide services. Will keep them updated for ADOD. Will update pt and daughter. Mary Herrmann RN/TCC [facility]01-19-2024 Nurse Note* Antoinette Carrera RN - 03/21/2023 11:00 AM EST Pt daughter at bedside and concerned about walking SPO2 study and wanting to include stairs. Also concerned that patient complained of sudden sharp pain in right leg just above the calf. Dr. Langfordnotified and in to see patient. [facility]01-18-2024 Plan of care note* Care Plan - [...] ashort time after discharge. Her address is [address] [place] [id number]. Discussed going home with daughter to her house and the benefit of [facility] services. Patient and daughter agreeable. [facility] agency list provided. Daughter will let this [...] Voiced understanding. Care team to follow for [facility] agency choice and referral. Mary Herrmann RN/TCC [facility] Work Phone: [phone] 572-190901-18-2024 Nurse Note* Mariana Zamudio RN - 03/20/2023 12:40 PM EST Met with Mr Oli De La Fuente in the ICU room [...] Pulmonary Disease COPD. Patient follows with a imcu specialist Dr Ocampo in [place]. They both deny any further questions at this time. Iexplained to them we will reach out the first week of April. [facility]01-18-2024 Plan of care note* Care Plan - Renetta Chaparro RN - 03/20/2023 6:29 AM EST The patient's goals for the shift include The clinical goals for the shift include sleep well all night, he was successful [facility]01-17-2024 Consult note* Nicole Reaves MD - 03/19/2023 1:31 PM EST Reason For Consult Right Index finger paranychion History Of Present Illness Oli De La Fuente is a 72 y.o. [...] a past medical history of Atrial fibrillation ([facility]), COPD (chronic obstructive pulmonarydisease) ([facility]), Coronary artery disease, Hypertension, Hypothyroidism, and Stroke ([facility]). Surgical History He has a past surgical [...] appear to have purulence. Nicole Reaves MD [facility] Work Phone: [phone] Consult note* Nicole Reaves MD - 03/19/2023 1:31 PM EST Reason For Consult Right Index finger paranychion History Of Present Illness Oli De La Fuente is a 72 y.o. [...] a past medical history of Atrial fibrillation ([facility]), COPD (chronic obstructive pulmonarydisease) ([facility]), Coronary artery disease, Hypertension, Hypothyroidism, and Stroke ([facility]). Surgical History He has a past surgical [...] have purulence. Nicole Reaves MD * Libertad Berkowitz DPM - 03/18/2023 8:51 PM EST Consults Reason For Consult Right lower leg wound with infection History Of Present Illness Oli De La Fuente is a 72 y.o. [...] nurse is present during the exam on [facility]. Past Medical History He has a past medical history of Atrial fibrillation ([facility]), COPD (chronic obstructive pulmonarydisease) ([facility]), Coronary artery disease, Hypertension, Hypothyroidism, and Stroke ([facility]). Surgical History He has a past surgical [...] and symmetrical and lacking with 10 g [place] Suly monofilament. Negative Babinski. Negative clonus. Musculoskeletal: [...] will follow while in house. ARMANDO Peña [facility] via [employer] I performed this visit using real time telehealth tools including [employer] connection between my location and the patient's [...] orders and plan Originating site (patient location): [facility] room 330 Distant site (provider [facility] Start time of encounter: 20:58 End time of encounter: 21:06 The minutes spent with this patient are noted, over half of which was spent in counseling and coordination of care (55 min) * Mihai Barreto DO - 03/18/2023 1:57 PM ESTAssociated Order(s): IP CONSULT TO PLACEMENT MANAGER; IP CONSULT TO NEPHROLOGY Reason For Consult Respiratory failure History Of Present Illness Oli De La Fuente is a 72 y.o. [...] a past medical history of Atrial fibrillation ([facility]), COPD (chronic obstructive pulmonarydisease) ([facility]), Coronary artery disease, Hypertension, Hypothyroidism, and Stroke ([facility]). Surgical History He has a past surgical [...] Principal Problem: COPD (chronic obstructive pulmonary disease) ([facility]) Mihai Barreto DO documented in this [facility] Work Phone: [phone] 616-956601-17-2024 Nurse Note* Selma Gandara, HIMANSHU - 03/19/2023 9:30 AM EST COPD Education [...] Booklet given: Pulmonary physician: yes Name: Dr. Terrence Tejada last seen: about 6 months ago Pharmacotherapy: [...] within two weeks of discharge may benefit [facility]01-17-2024 Plan of care note* Care Plan - Selma Marie RN - 03/19/2023 5:42 AM EST The patient's goals for the shift include The clinical goals for the shift include pt will rest comfortably during this shift [facility]01-16-2024 History and physical note* Palomo Farnsworth MD - 03/18/2023 10:25 PM EST History Of Present Illness Oli De La Fuente is a 72 y.o. [...] Transthoracic Echo (TTE) Complete Result Date: 03/18/2023 [place] [address] ext-2528, TRANSTHORACIC ECHOCARDIOGRAM REPORT Patient Name: OLI DE LA FUENTE Reading Physician: [id number] Otero MD Study Date: 03/18/2023 Ordering Provider: [id number] PALOMO FARNSWORTH MRN/PID: [id number] Fellow: Nurse: Mariana Zamudio RN Date of /Age: 9 1950 / 72 years Mobile Application Engineer: EDWIGE Guido RVT Gender: M Additional Staff: Height: 185.42 cm Admit Date: 03/17/2023 Weight: 89.81 kg Admission Status: Inpatient - Routine BSA: 2.14 m2 Department Location: [address]-ICU Blood Pressure: 119 /74 mmHg Study Type: TRANSTHORACIC ECHO (TTE) COMPLETE Diagnosis/ICD: Sepsis, unspecified organism-A41.9; Severe sepsis with septic shock-R65.21 Indication: Septic Shock CPT Codes: Echo Limited-74850; Doppler Limited-11451 Patient History: Pertinent History: COPD. No previous [...] RV Major 9.0 cm TAPSE: 25.3 mm [id number] Arnold Otero MD Electronically signed on 03/18/2023 at 1:15:53 PM Final SD-XR CHEST 1 VIEW IMPORT Result Date: 03/18/2023 Images were obtained outside of [facility] CT-CT ANGIO CHEST FOR PULMONARY EMBOLISM IMPORT Result Date: 03/18/2023 Images were obtained outside of [facility] CT angio chest for pulmonary embolism Result Date: 03/17/2023 Interpreted By: Rubén Waller, STUDY: CT ANGIO CHEST FOR PULMONARY EMBOLISM; 03/17/2023 10:31 pmINDICATION: Signs/Symptoms:dyspnea. COMPARISON: Chest radiograph 03/17/2023 ACCESSION NUMBER(S): [id number] ORDERING CLINICIAN: QUINN CAMARILLO TECHNIQUE: Axial CTA [...] Rubén Waller 03/17/2023 11:02 PM Dictation workstation: [id number] XR chest 1 view Result Date: 03/17/2023 Interpreted By: Thanh Paulino, STUDY: XR CHEST 1 VIEW; 03/17/2023 8:15 pm INDICATION: Signs/Symptoms:cough. COMPARISON: 06/06/2020 ACCESSION NUMBER(S): [id number] ORDERING CLINICIAN: QUINN CAMARILLOFINDINGS: The cardiac silhouette is normal in size. No focal airspace consolidation or pleural effus ion. No pneumothorax. No airspace consolidation or pleural effusion. MACRO: None Signed by: Thanh Paulino 03/17/2023 8:39 PM Dictation workstation: [id number] Results for orders placed or performed during the hospital encounter of 03/17/23 (from the past 24 hour(s)) Lactate Result Value Ref Range Lactate 3.4 (H) 0.4 - 2.0 mmol/L Urinalysis with Reflex Culture and Microscopic Result Value Ref Range Color, Urine Straw Straw, Yellow Appearance, Urine Clear Clear Specific [place], Urine 1.029 1.005 - 1.035 pH, Urine [...] Rate 101 BPM Atrial Rate 101 BPM SD Interval 142 ms QRS Duration 108 ms QT Interval 338 ms QTC Calculation(Bazett) 438 ms P Glad[place] 55 degrees R [place] -4 degrees T [place] 92 degrees QRS Count 17 beats Q [...] On Synthroid for hypothyroidism Palomo Farnsworth MD [facility] Work Phone: [phone] History and physical note* Palomo Farnsworth MD - 03/18/2023 10:25 PM EST History Of Present Illness Oli De La Fuente is a 72 y.o. [...] Past Medical History: Diagnosis Date Atrial fibrillation ([facility]) COPD (chronic obstructive pulmonary disease) ([facility]) Coronary artery disease Hypertension Hypothyroidism Stroke ([facility]) Hyperlipidemia And as above Surgical History Past [...] Transthoracic Echo (TTE) Complete Result Date: 03/18/2023 [place] [address] ext-2528, TRANSTHORACIC ECHOCARDIOGRAM REPORT Patient Name: OLI DE LA FUENTE Reading Physician: [id number] Otero MD Study Date: 03/18/2023 Ordering Provider: [id number] PALOMO FARNSWORTH MRN/PID: [id number] Fellow: Nurse: Mariana Zamudio RN Date of /Age: 9 1950 / 72 years Mobile Application Engineer: Faye Zimmerman RVT, EDWIGE Gender: M Additional Staff: Height: 185.42 cm Admit Date: 03/17/2023 Weight: 89.81 kg Admission Status: Inpatient - Routine BSA: 2.14 m2 Department Location: [address]-ICU Blood Pressure: 119 /74 mmHg Study Type: TRANSTHORACIC ECHO (TTE) COMPLETE Diagnosis/ICD: Sepsis, unspecified organism-A41.9; Severe sepsis with septic shock-R65.21 Indication: Septic Shock CPT Codes: Echo Limited-53631; Doppler Limited-30133 Patient History: Pertinent History: COPD. No previous [...] RV Major 9.0 cm TAPSE: 25.3 mm [id number] Arnold Otero MD Electronically signed on 03/18/2023 at 1:15:53 PM Final SD-XR CHEST 1 VIEW IMPORT Result Date: 03/18/2023 Images were obtained outside of [facility] CT-CT ANGIO CHEST FOR PULMONARY EMBOLISM IMPORT Result Date: 03/18/2023 Images were obtained outside of [facility] CT angio chest for pulmonary embolism Result Date: 03/17/2023 Interpreted By: Rubén Waller, STUDY: CT ANGIO CHEST FOR PULMONARY EMBOLISM; 03/17/2023 10:31 pmINDICATION: Signs/Symptoms:dyspnea. COMPARISON: Chest radiograph 03/17/2023 ACCESSION NUMBER(S): [id number] ORDERING CLINICIAN: QUINN CAMARILLO TECHNIQUE: Axial CTA [...] Rubén Waller 03/17/2023 11:02 PM Dictation workstation: [id number] XR chest 1 view Result Date: 03/17/2023 Interpreted By: Thanh Paulino, STUDY: XR CHEST 1 VIEW; 03/17/2023 8:15 pm INDICATION: Signs/Symptoms:cough. COMPARISON: 06/06/2020 ACCESSION NUMBER(S): [id number] ORDERING CLINICIAN: QUINN LING: The cardiac silhouette is normal in size. No focal airspace consolidation or pleural effus ion. No pneumothorax. No airspace consolidation or pleural effusion. MACRO: None Signed by: Thanh Paulino 03/17/2023 8:39 PM Dictation workstation: [id number] Results for orders placed or performed during the hospital encounter of 03/17/23 (from the past 24 hour(s)) Lactate Result Value Ref Range Lactate 3.4 (H) 0.4 - 2.0 mmol/L Urinalysis with Reflex Culture and Microscopic Result Value Ref Range Color, Urine Straw Straw, Yellow Appearance, Urine Clear Clear Specific [place], Urine 1.029 1.005 - 1.035 pH, Urine [...] Rate 101 BPM Atrial Rate 101 BPM SD Interval 142 ms QRS Duration 108 ms QT Interval 338 ms QTC Calculation(Bazett) 438 ms P [place] 55 degrees R [place] -4 degrees T [place] 92 degrees QRS Count 17 beats Q [...] 7:34 AM EST History Of Present Illness Oli De La Fuente is a 72 y.o. [...] Coronary artery disease Hypertension Hypothyroidism Stroke (CMS/HCC) Pertinent medical history also documented in my [...] 30 minutes after 20 tablet 0 03/17/2023 [id number] fluticasone (Flonase Allergy Relief) 50 mcg/actuation nasal [...] Straw, Yellow Appearance, Urine Clear Clear Specific [place], Urine 1.029 1.005 - 1.035 pH, Urine [...] Rate 101 BPM Atrial Rate 101 BPM SD Interval 142 ms QRS Duration 108 ms QT Interval 338 ms QTC Calculation(Bazett) 438 ms P [place] 55 degrees R [place] -4 degrees T [place] 92 degrees QRS Count 17 beats Q [...] Signs/Symptoms:dyspnea. COMPARISON: Chest radiograph 03/17/2023 ACCESSION NUMBER(S): [id number] ORDERING CLINICIAN: QUINN CAMARILLO TECHNIQUE: Axial CTA [...] Rubén Waller 03/17/2023 11:02 PM Dictation workstation: [id number] XR chest 1 view Result Date: 03/17/2023 Interpreted By: Thanh Paulino, STUDY: XR CHEST 1 VIEW; 03/17/2023 8:15 pm INDICATION: Signs/Symptoms:cough. COMPARISON: 06/06/2020 ACCESSION NUMBER(S): [id number] ORDERING CLINICIAN: QUINN CAMARILLOFINDINGS: The cardiac silhouette is normal in size. No focal airspace consolidation or pleural effus ion. No pneumothorax. No airspace consolidation or pleural effusion. MACRO: None Signed by: Thanh Paulino 03/17/2023 8:39 PM Dictation workstation: [id number] Assessment/Plan 72-year-old male, smoker, with a past [...] corrected) Kelvin Garcias MD documented in this [facility] Work Phone: [phone]) 948-494201-16-2024 Consult note* Libertad Berkowitz DPM - 03/18/2023 8:51 PM EST Consults Reason For Consult Right lower leg wound with infection History Of Present Illness Oli De La Fuente is a 72 y.o. [...] nurse is present during the exam on doxy.ny. Past Medical History He has a past medical history of Atrial fibrillation ([facility]), COPD (chronic obstructive pulmonarydisease) ([facility]), Coronary artery disease, Hypertension, Hypothyroidism, and Stroke ([facility]). Surgical History He has a past surgical [...] and symmetrical and lacking with 10 g [place] Suly monofilament. Negative Babinski. Negative clonus. Musculoskeletal: [...] Podiatry team will follow while in house. Libertad Berkowitz DPM [facility] via [employer] I performed this visit using real time telehealth tools including [employer] connection between my location and the patient's [...] orders and plan Originating site (patient location): [facility] room 330 Distant site (provider location[facility] Start time of encounter: 20:58 End time of encounter: 21:06 The minutes spent with this patient are noted, over half of which was spent in counseling and coordination of care (55 min) [facility] Work Phone: [phone] 309-620801-16-2024 Plan of care note* Care Plan - [...] did make progress toward the following goals. [facility]01-16-2024 Consult note* Mihai Barreto DO - 03/18/2023 1:57 PM ESTAssociated Order(s): IP CONSULT TO PLACEMENT MANAGER; IP CONSULT TO NEPHROLOGY Reason For Consult Respiratory failure History Of Present Illness Oli De La Fuente is a 72 y.o. [...] a past medical history of Atrial fibrillation ([facility]), COPD (chronic obstructive pulmonarydisease) ([facility]), Coronary artery disease, Hypertension, Hypothyroidism, and Stroke ([facility]). Surgical History He has a past surgical [...] Principal Problem: COPD (chronic obstructive pulmonary disease) ([facility]) Mihai Barreto DO [facility] Work Phone: [phone] 201-810501-16-2024 History and physical note* Kelvin Garcias MD - 03/18/2023 7:34 AM EST History Of Present Illness Oli De La Fuente is a 72 y.o. [...] Coronary artery disease Hypertension Hypothyroidism Stroke (CMS/HCC) Pertinent medical history also documented in my [...] 30 minutes after 20 tablet 0 03/17/2023 [id number] fluticasone (Flonase Allergy Relief) 50 mcg/actuation nasal [...] Straw, Yellow Appearance, Urine Clear Clear Specific [place], Urine 1.029 1.005 - 1.035 pH, Urine [...] Rate 101 BPM Atrial Rate 101 BPM SD Interval 142 ms QRS Duration 108 ms QT Interval 338 ms QTC Calculation(Bazett) 438 ms P [place] 55 degrees R [place] -4 degrees T [place] 92 degrees QRS Count 17 beats Q [...] Signs/Symptoms:dyspnea. COMPARISON: Chest radiograph 03/17/2023 ACCESSION NUMBER(S): [id number] ORDERING CLINICIAN: QUINN CAMARILLO TECHNIQUE: Axial CTA [...] Rubén Waller 03/17/2023 11:02 PM Dictation workstation: [id number] XR chest 1 view Result Date: 03/17/2023 Interpreted By: Thanh Paulino, STUDY: XR CHEST 1 VIEW; 03/17/2023 8:15 pm INDICATION: Signs/Symptoms:cough. COMPARISON: 06/06/2020 ACCESSION NUMBER(S): [id number] ORDERING CLINICIAN: QUINN CAMARILLOFINDINGS: The cardiac silhouette is normal in size. No focal airspace consolidation or pleural effus ion. No pneumothorax. No airspace consolidation or pleural effusion. MACRO: None Signed by: Thanh Paulino 03/17/2023 8:39 PM Dictation workstation: [id number] Assessment/Plan 72-year-old male, smoker, with a past [...] are not fully corrected) Kelvin Garcias MD [facility] Work Phone: [phone]) 402-989101-16-2024 Plan of care note* Care Plan - Terese Montez RN - 03/18/2023 6:50 AM EST The clinical goals for the shift include Wean off levophed and oxygen by the end of shift Over the shift, Pt continue to be on oxygen and levophed. Pt not in distress. Vital signs currentlystable. [facility] Work Phone: [phone]) 546-773601-15-2024 Emergency department Note* Quinn Camarillo, DO - 03/17/2023 7:52 PM ESTAssociated Order(s): ECG 12 lead; Critical Care HPI Chief Complaint Patient presents with Shortness of Breath Patient to ED via wheelchair with c/o shortness of breath x 2 weeks. Evaluated at Urgent Care on 03/10/23, dx pneumonia and Rx doxycycline. 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 Denies fever. Hx COPD, does [...] findings identified. Psychiatric: Appropriate mood and affect. Shaka Coma Scale Score: 15 Patient History No [...] arm -- Physical Exam ED Course & [facility] ED Course as of 03/18/23 0801 FriMar 18, 2023 0024 Patient accepted to [facility] by Dr. Guevara. Awaiting bed. [CL] 0337 Persistent hypotension following 4 L NS. Peripheral levophed will be started to manage blood pressure. [CL] ED Course User Index [CL] Quinn Camarillo DO Diagnoses as of 03/18/23 0801 COPD (chronic obstructive pulmonary disease) ([facility]) Septic shock ([facility]) Cellulitis of right lower extremity Medical Decision [...] performed using a different testing methodology at [facility] than at other [facility]. Direct result comparisons should only be made [...] is performed using different testing methodology at [facility] than at other [facility]. Direct result comparisons should only be made [...] performed using a different testing methodology at [facility] than at [facility]. Direct result comparisons should only be made within the same method. INFLUENZA A AND B PCR - Normal Flu A Result Flu B Result Narrative: This assay is an in vitro diagnostic multiplex nucleic acid amplification test for the detection and discrimination of Influenza A & B from nasopharyngeal specimens, and has been validated for use at [facility]. Negative results do not preclude Influenza A/B infections, and should not be used as the sole basis for diagnosis, treatment, or other management decisions. If Influenza A/B and RSV PCR results are negative, testing for Parainfluenza virus, Adenovirus and Metapneumovirus is routinely performed for [facility] pediatric oncology and intensive care inpatients, and [...] and has been validated for use at [facility]. Negative results do not preclude COVID-19 infections and should not be used as the sole basis for diagnosis, treatment, or other management decisions. BLOOD CULTURE BLOOD CULTURE URINALYSIS WITH REFLEX CULTURE AND MICROSCOPIC Narrative: The following orders were created for panel order Urinalysis with Reflex Culture and Microscopic. Procedure Abnormality Status --------- ------ Urinalysis with Reflex C...[[id number]] Extra Urine Barragan Tube[[id number]] Please view results for these tests on [...] Rubén Waller 03/17/2023 11:02 PM Dictation workstation: [id number] XR chest 1 view Final Result No airspace consolidation or pleural effusion. MACRO: None Signed by: Thanh Paulino 03/17/2023 8:39 PM Dictation workstation: [id number] Medical Decision Making: Patient appears well nontoxic. [...] improved. Patient initially planned for transfer to [facility] given lack of bed capacity at [facility]. However ICU bed is available and [...] ED Physician in the absence of a trailer steerer: yes Comments: EKG interpreted by Dr. Quinn Camarillo: Sinus tachycardia at a rate of 101 bpm. SD interval 142 ms. QTc of 438 ms. [...] Camarillo DO 03/18/23 0801 [facility]: [phone] Physician Emergency department Note* Quinn Camarillo DO - 03/17/2023 7:52 PM ESTAssociated Order(s): ECG 12 lead; Critical Care HPI Chief Complaint Patient presents with Shortness of Breath Patient to ED via wheelchair with c/o shortness of breath x 2 weeks. Evaluated at Urgent Care on 03/10/23, dx pneumonia and Rx doxycycline. 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 Denies fever. Hx COPD, does [...] findings identified. Psychiatric: Appropriate mood and affect. Shaka Coma Scale Score: 15 Patient History No [...] arm -- Physical Exam ED Course & [facility] ED Course as of 03/18/23 0801 FriMar 18, 2023 0024 Patient accepted to [facility] by Dr. Guevara. Awaiting bed. [CL] 0337 Persistent hypotension following 4 L NS. Peripheral levophed will be started to manage blood pressure. [CL] ED Course User Index [CL] Quinn Camarillo DO Diagnoses as of 03/18/23 0801 COPD (chronic obstructive pulmonary disease) ([facility]) Septic shock ([facility]) Cellulitis of right lower extremity Medical Decision [...] performed using a different testing methodology at [facility] than at other [facility]. Direct result comparisons should only be made [...] is performed using different testing methodology at [facility] than at other [facility]. Direct result comparisons should only be made [...] performed using a different testing methodology at [facility] than at [facility]. Direct result comparisons should only be made within the same method. INFLUENZA A AND B PCR - Normal Flu A Result Flu B Result Narrative: This assay is an in vitro diagnostic multiplex nucleic acid amplification test for the detection and discrimination of Influenza A & B from nasopharyngeal specimens, and has been validated for use at [facility]. Negative results do not preclude Influenza A/B infections, and should not be used as the sole basis for diagnosis, treatment, or other management decisions. If Influenza A/B and RSV PCR results are negative, testing for Parainfluenza virus, Adenovirus and Metapneumovirus is routinely performed for [facility] pediatric oncology and intensive care inpatients, and [...] and has been validated for use at [facility]. Negative results do not preclude COVID-19 infections and should not be used as the sole basis for diagnosis, treatment, or other management decisions. BLOOD CULTURE BLOOD CULTURE URINALYSIS WITH REFLEX CULTURE AND MICROSCOPIC Narrative: The following orders were created for panel order Urinalysis with Reflex Culture and Microscopic. Procedure Abnormality Status --------- ------ Urinalysis with Reflex C...[[id number]] Extra Urine Barragan Tube[[id number]] Please view results for these tests on [...] Rubén Waller 03/17/2023 11:02 PM Dictation workstation: [id number] XR chest 1 view Final Result No airspace consolidation or pleural effusion. MACRO: None Signed by: Thanh Paulino 03/17/2023 8:39 PM Dictation workstation: [id number] Medical Decision Making: Patient appears well nontoxic. [...] improved. Patient initially planned for transfer to [facility] given lack of bed capacity at [facility]. However ICU bed is available and [...] ED Physician in the absence of a trailer steerer: yes Comments: EKG interpreted by Dr. Quinn Camarillo: Sinus tachycardia at a rate of 101 bpm. SD interval 142 ms. QTc of 438 ms. [...] admitting provider Quinn Camarillo DO 03/18/23 0801 [facility] Work Phone: [phone]) 240-299001-08-2024 History of Present illness Narrative* Manuel Abebe, FOOD CONSULTANT-HOME SERVICE TECHNICIAN - 03/10/2023 5:20 PM EST 72 y.o. [...] Review Audit Reviewed by Kailey Ballard MA (Butter [employer]ter) on 03/10/23 at 1730 Medication Order Taking? Sig Documenting Provider Last Dose Status albuterol 2.5 mg /3 mL (0.083 %) nebulizer solution [id number] Yes USE 1 VIAL VIA NEBULIZER EVERY 4 HOURS NEEDED for SHORTNESS OF BREATH or FOR WHEEZING Historical Provider, Taking Active amLODIPine (Norvasc) 5 mg tablet [id number] Yes Take 1 tablet (5 mg) by mouth once daily. Historical Provider, Taking Active atorvastatin (Lipitor) 80 mg tablet [id number] Yes Historical Provider, Taking Active fluticasone (Flonase Allergy Relief) 50 mcg/actuation nasal spray [id number] Yes Administer into affected nostril(s). Historical Provider, Taking Active furosemide (Lasix) 20 mg tablet [id number] Yes TAKE ONE-HALF TABLET (10mg) BY MOUTH EVERY OTHER DAY Historical Provider, Taking Active ipratropium (Atrovent) 0.02 % nebulizer solution [id number] Yes USe contents OF 1 (ONE) vial via nebulizer EVERY 6 HOURS NEEDED for SHORTNESS OF BREATH or FOR WHEEZING Historical Provider, TakingActive levothyroxine (Synthroid, Levoxyl) 75 mcg tablet [id number] Yes Take 1 tablet (75 mcg) by mouth once daily. Historical Provider, Taking Active losartan (Cozaar) 100 mg tablet [id number] Yes Historical Provider, Taking Active metoprolol succinate XL (Toprol-XL) 50 mg 24 hr tablet [id number] Yes Take 1 tablet (50 mg) by mouth once daily. Historical Provider, Taking Active nitroglycerin (Nitrostat) 0.4 mg SL tablet [id number] Yes DISSOLVE 1 TABLET UNDER THE TONGUE NEEDED FOR CHEST PAIN- MAY REPEAT EVERY 5 MINUTES IF NEEDED ( MAX 3 DOSES.- IF NO RELIEF CALL 911) Historical Provider, Taking Active Plavix 75 mg tablet [id number] Yes Take 1 tablet (75 mg) by mouth once daily. Historical Provider, Taking Active potassium chloride CR 20 mEq ER tablet [id number] Yes Historical Provider, Taking Active predniSONE (Deltasone) 10 mg tablet [id number] Yes Take 1 tablet (10 mg) by mouth once daily. Historical Provider, Taking Active sertraline (Zoloft) 100 mg tablet [id number] Yes Historical Provider, Taking Active spironolactone (Aldactone) 25 mg tablet [id number] Yes Historical Provider, Taking Active Trelegy Ellipta 100-62.5-25 mcg blister with device [id number] Yes Historical Provider, Taking Active Xarelto 20 mg tablet [id number] Yes Take by mouth. Historical Provider, Taking [...] Affect: Mood normal. Behavior: Behavior normal. Assessment/Plan/MDM Oli was seen today for uri and wound [...] worsening sy mptoms or any new concerns. Manuel Abebe CNP [facility] [phone] documented in this [facility] Work Phone: 1(788) 914-738701-02-2024 NoteHNO ID: [id number] Author: Idania Fraire, DO Service: ? Author Type: Physician Type: Progress Notes Filed: 03/04/2023 2:46 PM Note Text: [facility] SECTION OF [facility] OUTPATIENT VISIT DATE March 04, 2023 HISTORY OF PRESENT ILLNESS: Mr. De La Fuente is a 72 year old male. The patient presents to [facility] care due to history of coronary [...] dizziness, syncope and light-heade (more content not included)...[id number] Instructions* Patient Instructions* Viktoria Calix APRN.[facility] - 06/06/2022 9:24 AM EDT Continue current [...] or concern, you can call me at [phone]. My colleague is Janel Quinteros and she can be reached at [phone]. I am out of the office from 06/07-06/18. documented [facility] History of Present illness Narrative* Viktoria Calix APRN.CNP - 06/06/2022 9:00 AM EDT Images from the original note were not included. [facility] [place] [facility] OUTPATIENT VISIT DATE June 06, 2022 OUTPATIENT VISIT TYPE NEW PRIMARY CARE PHYSICIAN: Miquel Chapman MD REFERRING PHYSICIAN: No referring provider defined for this encounter. CHIEF COMPLAINT: Patient presents with: Breathing Problem Leg Edema HISTORY OF PRESENT ILLNESS: Oli De La Fuente is a 71 year [...] 10 mg prednisone daily. Follows with his Loading Dock Hand regularly. States he has also worn the [...] Functional Class: I Stage: C heart failure Oli De La Fuente is a 71 year-old [...] cardiology -follow up in HF Clinic in September 01. Paroxysmal atrial fibrillation (HCC) - ICD9: 427.31, ICD10: I48.0 -CHADSVASc 6 (age, HTN, HF, CAD, TIA) -continue metoprolol for rate control -HR 65 bpm during office visit -continue xarelto for stroke prophylaxis 3. 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- ICD9: 414.01, ICD10: [...] artery disease) Chronic obstructive pulmonary disease (COPD) ([facility]) Diastolic congestive heart failure (HCC) 03/11/2022 Dyslipidemia Flutter-fibrillation Heart attack (HCC) Hypertension NSTEMI (non-ST elevated myocardial infarction) ([facility]) 05/2018 Stroke ([facility]) Thyroid disease TIA (transient ischemic attack) PAST [...] NOT stop taking without talking to your trailer steerer. 30 tablet 11 levothyroxine (SYNTHROID) 75 mcg [...] counseling. SIGNATURE: Viktoria Calix APRN.CNP PATIENT NAME: Oli De La Fuente DATE: June 06, 2022 TIME: 8:18 AM documented in this encounterSelect [facility]27-[facility]23 Miscellaneous Notes* Telephone Encounter - Janel Quinteros APRN.CNP - 04/29/2022 12:41 PM EST Called and spoke with Mr. De La Fuente. He states that he could not make an appointment for HF Clinic atthis time. He wrote down contact information and reports he will call to schedule once he talks with family. Janel Quinteros APRN.CNP documented in this encounterSelect [facility]-21-2023 Miscellaneous Notes* Telephone Encounter - Antoinette Diaz RN - 04/23/2022 3:22 PM EST Spoke to daughter and informed of below. Reviewed CHF diet/ restrictions with her. Voiced understanding. States she will call and set up appt for CHF clinic. Antoinette Diaz RN * Telephone Encounter - Kailey Snow APRN.HOME SERVICE TECHNICIAN - 04/23/2022 2:50 PM EST I recommend taking 10 lasix mg once daily as needed for shortness of breath, weight gain, abdominaldistention. I recommend establishing with the heart failure clinic for lifestyle management of volume: salt restriction, fluid restriction, daily weights, instructions on how to take Lasix as needed,so that we can avoid fluid gain without stressing kidneys. Thank you, Kailey Snow APRN.HOME SERVICE TECHNICIAN * Telephone Encounter - Destini Sandoval RN [...] 04/17/2022 2:54 PM EST Patient's daughter called [facility] to ask that the basic metabolic panel from 04/15/2022 be reviewed? Any recommendations? Deidre Russo LPN documented in this encounterSelect [facility]-06-2023 Miscellaneous Notes* Telephone Encounter - Destini Sandoval [...] in one week renee documented in this encounterSelect [facility]01-27-2023 NoteHNO ID: [id number] Author: Mark Philip MD Service: Cardiovascular Surgery [...] the groin with 1% lidocaine. A pre-flushed 6-Chadian sheath was inserted into the femoral artery [...] lasix. SIGNATURE: Mark Philip MD PATIENT NAME: Oli De La Fuente DATE: March 29, 2022 TIME: 12:34 [facility]01-27-2023 Procedure note* Mark Philip MD - 03/29/2022 [...] the groin with 1% lidocaine. A pre-flushed 6-Chadian sheath was inserted into the femoral artery [...] lasix. SIGNATURE: Mark Philip MD PATIENT NAME: Oli De La Fuente DATE: March 29, 2022 TIME: 12:34 PM documented in this encounterSelect [facility]-27-2023 History and physical note * Mark Philip [...] attached. SIGNATURE: Mark Philip MD PATIENT NAME: Oli De La Fuente DATE: March 29, 2022 TIME: 10:37 AM documented in this encounterSelect [facility]01-10-2023 Miscellaneous Notes* Telephone Encounter - Destini Sandoval [...] RN * Telephone Encounter - Cira Helms [facility] - 03/11/2022 11:31 AM EST Schedule R&LHC on 03/29/[address] Philip documented in this encounterSelect [facility]-09-[facility]23 History of Present illness Narrative* Mark Philip MD - 03/11/2022 10:01 AM EST Images from the original note were not included. Mark Philip MD Interventional Cardiology [facility] [address] [place] [address] [phone] Chief Complaint Patient presents with: Follow Up HISTORY OF PRESENT ILLNESS: Mr. De La Fuente is a 71 year old male seen [...] artery disease) Chronic obstructive pulmonary disease (COPD) ([facility]) Diastolic congestive heart failure ([facility]) 03/11/2022 Dyslipidemia Flutter-fibrillation Heart attack ([facility]) Hypertension NSTEMI (non-ST elevated myocardial infarction) ([facility]) 05/2018 Stroke ([facility]) Thyroid disease TIA (transient ischemic attack) PAST [...] NOT stop taking without talking to your trailer steerer. 30 tablet 11 levothyroxine (SYNTHROID) 75 mcg [...] Status post angioplasty of the circumflex in 2013 his exertional shortness of breath potentially could [...] to correct any errors. documented in this encounterSelect [facility]03-27-2018 History of Past illness Narrative* Problem Noted Date Resolved Date Chest pain 05/27/2017 05/28/2017 COPD (chronic obstructive pulmonary disease) 05/28/2017 Heart attack 05/28/2017 Chronic obstructive pulmonary disease (COPD) 05/28/2017 documented as of this encounter (statuses as of 03/11/2022) [address]27-2018 History of Past illness Narrative* Problem Noted Date Resolved Date Chest pain 05/27/2017 05/28/2017 COPD (chronic obstructive pulmonary disease) 05/28/2017 Heart attack 05/28/2017 Chronic obstructive pulmonary disease (COPD) 05/28/2017 documented as of this encounter (statuses as of 03/12/2022) [address]27-2018 History of Past illness Narrative* Problem Noted Date Resolved Date Chest pain 05/27/2017 05/28/2017 COPD (chronic obstructive pulmonary disease) 05/28/2017 Heart attack 05/28/2017 Chronic obstructive pulmonary disease (COPD) 05/28/2017 documented as of this encounter (statuses as of 03/29/2022) [address]27-2018 History of Past illness Narrative* Problem Noted Date Resolved Date Chest pain 05/27/2017 05/28/2017 COPD (chronic obstructive pulmonary disease) 05/28/2017 Heart attack 05/28/2017 Chronic obstructive pulmonary disease (COPD) 05/28/2017 documented as of this encounter (statuses as of 03/30/2022) [address]27-2018 History of Past illness Narrative* Problem Noted Date Resolved Date Chest pain 05/27/2017 05/28/2017 COPD (chronic obstructive pulmonary disease) 05/28/2017 Heart attack 05/28/2017 Chronic obstructive pulmonary disease (COPD) 05/28/2017 documented as of this encounter (statuses as of 04/08/2022) [address]27-2018 History of Past illness Narrative* Problem Noted Date Resolved Date Chest pain 05/27/2017 05/28/2017 COPD (chronic obstructive pulmonary disease) 05/28/2017 Heart attack 05/28/2017 Chronic obstructive pulmonary disease (COPD) 05/28/2017 documented as of this encounter (statuses as of 04/23/2022) [facility] History of Past illness Narrative* Problem Noted Date Resolved Date Chest pain 05/27/2017 05/28/2017 COPD (chronic obstructive pulmonary disease) 05/28/2017 Heart attack 05/28/2017 Chronic obstructive pulmonary disease (COPD) 05/28/2017 documented as of this encounter (statuses as of 04/29/2022) [facility] History of Past illness Narrative* Problem Noted Date Resolved Date Chest pain 05/27/2017 05/28/2017 COPD (chronic obstructive pulmonary disease) 05/28/2017 Heart attack 05/28/2017 Chronic obstructive pulmonary disease (COPD) 05/28/2017 documented as of this encounter (statuses as of 06/06/2022) [facility] History of Past illness Narrative* Problem Noted Date Diagnosed Date Resolved Date Chest pain 05/27/2017 05/28/2017 COPD (chronic obstructive pulmonary disease) 0 05/28/2017 Heart attack 05/28/2017 Chronic obstructive pulmonary disease (COPD) 05/28/2017 documented as of this encounter (statuses as of 01/17/2023) [facility]* Diagnosis Onset Date Resolution Status Bronchiectasis acute MARK (obstructive sleep apnea) acute Asthma-COPD overlap syndrome chronic Asthma-COPD overlap syndrome [facility] Work Phone: Evaluation note* Diagnosis Onset Date Resolution Status Bronchiectasis acute Asthma-COPD overlap syndrome [facility] Work Phone: Evaluation note* Diagnosis Paroxysmal atrial fibrillation (HCC)- Primary Atrial fibrillation Primary hypertension Unspecified essential hypertension SOB (shortness of breath) Shortness of breath Diastolic congestive heart failure, unspecified HF chronicity ([facility]) NSTEMI (non-ST elevated myocardial infarction) ([facility]) Acute myocardial infarction, subendocardial infarction, episode of care unspecified Pure hypercholesterolemia 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 Dyspnea on exertion Other dyspnea and respiratory abnormality [facility] Diagnosis Systolic congestive heart failure, unspecified HF chronicity (HCC)- Primary [facility] in this encounter [facility]* Diagnosis Short of breath on exertion [R06.02 (ICD-10-CM)]- Primary Shortness of breath documented in this encounter [facility]* Diagnosis NICM (nonischemic cardiomyopathy) (HCC)- Primary Other primary cardiomyopathies documented in this encounter [facility]* Diagnosis Diastolic congestive heart failure, unspecified HF chronicity (HCC)- Primary Paroxysmal atrial fibrillation (HCC) Atrial fibrillation 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 Primary hypertension Unspecified essential hypertension Pure hypercholesterolemia documented in this encounter [facility]* Diagnosis Acute bronchitis, unspecified organism- Primary Cellulitis of left upper extremity documented in this encounter [facility] Work Phone: Evaluation note* Diagnosis COPD (chronic obstructive pulmonary disease) ([facility])- Primary Chronic airway obstruction, not elsewhere classified COPD (chronic obstructive pulmonary disease) ([facility]/HCC) Chronic airway obstruction, not elsewhere classified Shock circulatory ([facility]) Unspecified shock Septic shock ([facility]) Cellulitis of right lower extremity Other specified peripheral vascular diseases ([facility]) Peripheral vascular disease, unspecified ([facility]) Peripheral vascular disease, unspecified Difficulty walking Difficulty in walking documented in this encounter [facility] Work Phone: Evaluation note* Diagnosis Onset Date Resolution Status Cellulitis of right lower extremity acute Hypothyroidism acute MARK (obstructive sleep apnea) acute Asthma-COPD overlap syndrome chronic BPH (benign prostatic hyperplasia) chronic Bronchiectasis chronic Chronic anticoagulation java j2ee software engineer tristin COPD (chronic obstructive pulmonary disease) chronic Coronary artery disease java j2ee software engineer tristin Former smoker chronic Hyperlipidemia chronic Hypertension chronic Asthma-COPD overlap syndrome chronic Bronchiectasis [facility] Work Phone: Evaluation note* Diagnosis Chronic diastolic congestive heart failure (HCC)- Primary Chronic diastolic heart failure 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 Paroxysmal atrial fibrillation (HCC) Atrial fibrillation Primary hypertension Unspecified essential hypertension Mixed hyperlipidemia Presence of drug coated stent in left circumflex coronary artery Postsurgical percutaneous transluminal coronary angioplasty status television installer current use of anticoagulant Long-term (current) use of anticoagulants Nonrheumatic aortic valve stenosis Aortic valve disorders Ascending aorta dilatation (HCC) Thoracic aortic ectasia documented in this encounter [facility]* Diagnosis COPD with exacerbation (Multi)- Primary Acute upper respiratory infection Acute upper respiratory infections of unspecified site documented in this encounter [facility] Work Phone: Evaluation note* Diagnosis Stroke (HCC)- Primary Unspecified cerebral artery occlusion with cerebral infarction Cerebrovascular accident (CVA) due to embolism of cerebral artery (HCC) 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 HLD (hyperlipidemia) Other and unspecified hyperlipidemia CAD (coronary artery disease) Coronary atherosclerosis of unspecified type of vessel, kiowa tribe or graft 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- Primary Paroxysmal atrial fibrillation (HCC) Atrial fibrillation Chronic diastolic CHF (congestive heart failure) (HCC) Chronic diastolic heart failure Primary hypertension Unspecified essential hypertension Mixed hyperlipidemia Presence of drug coated stent in left circumflex coronary artery Postsurgical percutaneous transluminal coronary angioplasty status television installer current use of anticoagulant Long-term (current) use of anticoagulants Nonrheumatic aortic valve stenosis Aortic valve disorders Ascending aorta dilatation (HCC) Thoracic aortic ectasia documented in this encounter [facility]* Diagnosis Acute bronchitis, unspecified organism- Primary documented in this encounter [facility] Work Phone: Evaluation note* Diagnosis Ruptured infrarenal abdominal aortic aneurysm (AAA)- Primary Ruptured pararenal abdominal aortic aneurysm (AAA) (Multi) documented in this encounter [facility] Work Phone: Evaluation note* Diagnosis Stroke (HCC)- Primary Unspecified cerebral artery occlusion with cerebral infarction Cerebrovascular accident (CVA) due to embolism of cerebral artery (HCC) 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 HLD (hyperlipidemia) Other and unspecified hyperlipidemia CAD (coronary artery disease) Coronary atherosclerosis of unspecified type of vessel, kiowa tribe or graft 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- Primary Chronic diastolic CHF (congestive heart failure) (HCC) Chronic diastolic heart failure documented in this encounter [facility] Discharge instructions Additional Instructions Please follow-up with imcu specialist. Please return if symptoms worsen.[facility] Work Phone: Reason for referral (narrative)* Outpatient Procedure (Routine) - Closed Specialty Diagnoses / Procedures Referred By Contac t Referred To Contact [facility] Diagnoses Paroxysmal atrial fibrillation (HCC) Primary hypertension Procedures ECG COMPLETE ECG ROUTINE ECG W/LEAST 12 LDS W/I&R Mark Philip MD [address] [place] [address] [facility] [place] [address] [place] [address] Referral ID Status Reason Start Date Expiration Date V isits Requested Visits Authorized [id number] Closed Auto-Generate d Referral 02/21/2022 02/21/2023 1 1 [facility] for referral (narrative)No reason for referral information availableWMcKitrick [facility] Work Phone: Summary Purpose Family History No Family History Records Found Relationship Condition Age at Onset Recorded Date/T elaine Not Specified Cardiac disease Unknown Hypertension Unknown Advance Directives No Advanced Directives Records Found Advance Directive Response Recorded Date/ Time Living Will Yes June 12, 2020 4:34pm Power of Shrimp Trawler Captain Yes June 12 4:34pm Advance Directive Response Recorded Date/ Time Name of Medical Power of Shrimp Trawler Captain recalled February 11, 2022 4:37pm Living Will Yes February 11, 022 4:37pm Power of Shrimp Trawler Captain Yes February 11, 2022 4:37pm Latest Code Status on File Code Status Date Activated Date Inactivated Comments Full Code 03/18/2023 8:49 AM Question Answer Comments Plan of Care: Code Status Discussion Not Compl eted Decision Maker: Provider Rationale: Patient condition do es not warrant discussion Advance Directive Response Recorded Date/ Time Living Will Yes February 11, 022 4:37pm Power of Shrimp Trawler Captain Yes February 11, 2022 4:37pm Date Activated [...] Recorded Date/ Time Living Will Yes February 11, 022 5:37pm Do you have a Healthcare Power of Shrimp Trawler Captain? Yes February 11, 2022 5:37pm Advance Directive Response Recorded Date/ Time Do you have a Healthcare Pow er of Shrimp Trawler Captain? Yes October 14, 2024 4:40pm Name of Medical Power of Shrimp Trawler Captain Kailey peña, daughter October 14, 2024 4:40pm Do you have a Healthcare Pow er of Shrimp Trawler Captain? Yes October 17, 2024 7:26pm Chief Complaint and Reason for Visit Chief [...] Severe persistent allergic asthma July 142024 2:55pm Chief Complaint Admit Date 4-6 M FU July 14, 2024 2:55p m COPD, REPTURED INFRARENAL ABDOMINAL AORT IC October 13, 2024 7:58pm r/o ileus October 17, 2024 7: 18pm Reason for Visit Admit Date Severe persistent allergic asthma July 142024 2:55pm Asthma-COPD overlap syndrome July 14, 2 025 2:55pm Bronchiectasis July 14, 2024 2:55p m Hypoxia July 14, 2024 2:55p m MARK (obstructive sleep apnea) July 14, 2024 2:55pm Pulmonary nodule July 14, 2024 2:55p m Acute respiratory failure with hypoxia A ugust 2024 7:58pm Asthma October 13, 2024 7: 58pm Atrial fibrillation October 13, 2024 7: 58pm Chronic heart failure with p reserved ejection fraction (HFpEF) October 13, 2024 7:58pm Depression October 13, 2024 7: 58pm DVT (deep venous thrombosis) October 7:58pm 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) October 13, 2024 7:58pm Heparin induced thrombocytopenia (HIT) A ugust 2024 7:58pm Hypothyroidism October 13, 2024 7: 58pm Postoperative ileus October 13, 2024 7: 58pm Ruptured abdominal aortic aneurysm Augus t 2024 7:58pm BPH (benign prostatic hyperplasia) Augus t 2024 7:58pm COPD (chronic obstructive pulmonary dise ase) October 13, 2024 7:58pm Coronary artery disease October 13 7:58pm Debility October 13, 2024 7: 58pm Hypertension October 13, 2024 7: 58pm Medications Administered Section Inactive Administered Medications - up to 3 most recent administrations Medication Order MAR Action Action Date Dose Rate Site heparin 1,000 Units in D5W 250 mL 1,000 Units, INTRA-ARTERIAL, ONE TIME, 1 dose, Starting on Fri03/29/22 at 0801, Until 03/30/22 at 0303, NOW (EMERGENT PROCEDURE) FOR PANEL SEWER USE ONLY, Intraprocedure heparin 3,000 Units in NaCl 0.9% 500 mL irrigation 3,000 Units, IRRIGATION, ONE TIME, 1 dose, Starting on Fri03/29/22 at 0801, Until 03/30/22 at 0303, NOW (EMERGENT PROCEDURE) FOR PANEL SEWER USE ONLY For Irrigation Use Only, Intraprocedure Reason for Referral Specialty Diagnoses / Procedures Referred By Anika soria Referred To Contact Home Health Services Diagnoses COPD (chronic obstructive pulmonary disease) ([facility]) Cellulitis of right lower extremity Difficulty walking Paige Langford MD [address] [place] [address] Non-Certified [facility] [place] [address] Referral ID Status Reason Start Date Expiration Date Visits Requested Visits Authorized [id number] Canceled Specialty Services Required 03/21/2023 03/20/2024 999 [id number] Specialty Diagnoses / Procedures Referred By Anika soria Referred To Contact Radiology Diagnoses COPD with exacerbation (Multi) Procedures XR chest 2 views Manuel Abebe, FOOD CONSULTANT-HOME SERVICE TECHNICIAN [address] [place] [address] Referral ID Status Reason Start Date Expiration Date Visits Requested Visits Authorized [id number] Authorized Perform Procedure 11/17/2023 11/16/2024 1 1 Additional Source Comments (unrecognized sect ion and content) No Status Records FoundNo Status Records FoundNo Status Records FoundNo Status Records FoundNo Status Records FoundNo Status Records FoundNo Status Records FoundNo Status Records FoundNo Status Records FoundNo Status Records FoundNo Status Records FoundNo Status Records Found INFORMATION SOURCE (unrecogn ized section and content) DATE CREATED AUTHOR 08/22/2017 [facility] DATE CREATED AUTHOR AUTHOR'S ORGANIZ ATION 06/24/2018 [facility] DATE CREATED AUTHOR AUTHOR'S ORGANIZ ATION 12/09/2018 [facility] DATE CREATED AUTHOR AUTHOR'S ORGANIZ ATION 03/21/2021 [facility] DATE CREATED AUTHOR AUTHOR'S ORGANIZ ATION 04/19/2022 [facility] DATE CREATED AUTHOR AUTHOR'S ORGANIZ ATION 04/24/2022 [facility] DATE CREATED AUTHOR AUTHOR'S ORGANIZ ATION 12/20/2023 [facility] DATE CREATED AUTHOR AUTHOR'S ORGANIZ ATION 05/22/2024 [facility] DATE CREATED AUTHOR AUTHOR'S ORGANIZ ATION 09/28/2024 [facility] DATE CREATED AUTHOR AUTHOR'S ORGANIZ ATION 10/01/2024 [facility] DATE CREATED AUTHOR AUTHOR'S ORGANIZ ATION 10/20/2024 [facility] DATE CREATED AUTHOR AUTHOR'S ORGANIZ ATION 10/28/2024 [facility] <item> Privacy Markings (unrecogniz ed section [...] or prosecute any alcohol or drug abuse patient.[facility] the event this information is protected by the Federal Confidentiality of Alcohol and Drug Abuse Patient Records regulations: The Federal rules restrict any use of the information to criminally investigate or prosecute any alcohol or drug abuse patient.[facility] the event this information is protected by the Federal Confidentiality of Alcohol and Drug Abuse Patient Records regulations: The Federal rules restrict any use of the information to criminally investigate or prosecute any alcohol or drug abuse patient.[facility]In the event this information is protected by the Federal Confidentiality of Alcohol and Drug Abuse Patient Records regulations: The Federal rules restrict any use of the information to criminally investigate or prosecute any alcohol or drug abuse patient.[facility] the event this information is protected by the Federal Confidentiality of Alcohol and Drug Abuse Patient Records regulations: The Federal rules restrict any use of the information to criminally investigate or prosecute any alcohol or drug abuse patient.[facility]In the event this information is protected by the Federal Confidentiality of Alcohol and Drug Abuse Patient Records regulations: The Federal rules restrict any use of the information to criminally investigate or prosecute any alcohol or drug abuse patient.[facility] NorthIn the event this information is protected by the Federal Confidentiality of Alcohol and Drug Abuse Patient Records regulations: The Federal rules restrict any use of the information to criminally investigate or prosecute any alcohol or drug abuse patient.[facility]In the event this information is protected by the Federal Confidentiality of Alcohol and Drug Abuse Patient Records regulations: The Federal rules restrict any use of the information to criminally investigate or prosecute any alcohol or drug abuse patient.[facility] NorthIn the event this information is protected by the Federal Confidentiality of Alcohol and Drug Abuse Patient Records regulations: The Federal rules restrict any use of the information to criminally investigate or prosecute any alcohol or drug abuse patient.[facility]In the event this information is protected by the Federal Confidentiality of Alcohol and Drug Abuse Patient Records regulations: The Federal rules restrict any use of the information to criminally investigate or prosecute any alcohol or drug abuse patient.[facility]In the event this information is protected by the Federal Confidentiality of Alcohol and Drug Abuse Patient Records regulations: The Federal rules restrict any use of the information to criminally investigate or prosecute any alcohol or drug abuse patient.[facility]In the event this information is protected by the Federal Confidentiality of Alcohol and Drug Abuse Patient Records regulations: The Federal rules restrict any use of the information to criminally investigate or prosecute any alcohol or drug abuse patient.[facility]In the event this information is protected by the Federal Confidentiality of Alcohol and Drug Abuse Patient Records regulations: The Federal rules restrict any use of the information to criminally investigate or prosecute any alcohol or drug abuse patient.[facility] NorthIn the event this information is protected by the Federal Confidentiality of Alcohol and Drug Abuse Patient Records regulations: The Federal rules restrict any use of the information to criminally investigate or prosecute any alcohol or drug abuse patient.[facility] Reason for Visit (unrecogniz ed section and [...] Shortness of Breath Patient to ED via eelchair with c/o shortness of breath x 2 weeks. Evaluated at Urgent Care on 03/10/23, dx pneumonia and Rx doxycycline. 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 Denies fever. Hx COPD, does not have home oxygen. Also c/o wounds right index finger, right lower leg and left hand. Specialty Diagnoses / Procedures Referred By Anika t Referred To Contact Diagnoses COPD (chronic obstructive pulmonary disease) ([facility]) Procedures Inpatient Admission Kelvin Stern MD [facility] [place] [address] [facility] [address] [place] [id number] Referral ID Status Reason Start Date Expiration [...] Care Teams (unrecognized sec tion and content) Event Staff Relationship Specialty Start Date End Date Miquel Chapman PCP - General Family Medicine 05/26/17 Event Staff Relationship Specialty Start Date End Date Miquel Chapman PCP - General Family Medicine 05/26/17 Event Staff Relationship Specialty Start Date End Date Miquel Chapman PCP - General Family Medicine 05/26/17 Event Staff Relationship Specialty Start Date End Date Miquel Chapman PCP - General Family Medicine 05/26/17 Event Staff Relationship Specialty Start Date End Date Miquel Chapman PCP - General Family Medicine 05/26/17 Event Staff Relationship Specialty Start Date End Date Miquel Chapman PCP - General Family Medicine 05/26/17 Event Staff Relationship Specialty Start Date End Date Miquel Chapman PCP - General Family Medicine 05/26/17 Event Staff Relationship Specialty Start Date End Date Miquel Chapman PCP - General Family Medicine 05/26/17 Event Staff Relationship Specialty Start Date End Date Adela Miquel Pichardo MD [address] [place] [address] PCP - General 03/03/18 Event Staff Relationship Specialty Start Date End Date Ashlee Lanier MD [address] [facility] [address] [place] [address] PCP - General Internal Medicine 03/17/23 Team Status: Active Member Role Status Dates Dr. Ashlee Lanier MD Primary Care Provider Active Team Status: Inactive Member Role Status Dates Dr. Ashlee Lanier MD Primary Care Provider, Attendi ng Provider Active Team Status: Inactive Member Role Status Dates Dr. Ashlee Lanier MD Primary Care Provider, Referri ng Provider Active Jyothi Lowery BOWLING ALLEY MECHANIC, BOWLING ALLEY MECHANIC-C Attending Provider Active Team Status: Inactive Member Role Status Dates Dr. Ashlee Lanier MD Primary Care Pro vider, Attending Provider, Referring Provider Active Event Staff Relationship Specialty Start Date End Date Ashlee Lanier MD [address] [address] [place] [address] PCP - General Internal Medicine 03/04/23 Oskar Ocampo MD [address] [place] [address] Pulmonary Disease 03/04/23 Event Staff Relationship Specialty Start Date End Date Ashlee Lanier MD [address] [address] [place] [address] PCP - General Internal Medicine 03/04/23 Oskar Ocampo MD [address] [place] [address] Pulmonary Disease 03/04/23 Event Staff Relationship Specialty Start Date End Date Ashlee Lanier MD [address] [address] [place] [address] PCP - General Internal Medicine 03/04/23 Oskar Ocampo MD [address] [place] [address] Pulmonary Disease 03/04/23 Event Staff Relationship Specialty Start Date End Date Ashlee Lanier MD [address] [facility] [place] [address] PCP - General Internal Medicine 11/17/23 Event Staff Relationship Specialty Start Date End Date Ashlee Lanier MD [address] [place] [address] PCP - General Internal Medicine 03/04/23 Oskar Ocampo MD [address] [place] [address] Pulmonary Disease 03/04/23 Event Staff Relationship Specialty Start Date End Date Ashlee Lanier MD [address] [place] [address] PCP - General Internal Medicine 11/17/23 Team Status: Inactive Member Role Status Dates Dr. Ashlee Lanier MD Primary Care Provider Active Start: March 16, 2024 End: March 16, 2024 Dr. Ashlee Lanier MD Referring Provider Active Start: March 16, 2024 End: March 16, 2024 Jyothi Lowery BOWLING ALLEY MECHANIC, BOWLING ALLEY MECHANIC-C Attending Provider Active Start: March 16, 2024 End: March 16, 2024 Team Status: Inactive Member Role Status Dates Dr. Ashlee Lanier MD Primary Care Provider Active Start: March 31, 2024 End: March 31, 2024 Jyothi Lowery BOWLING ALLEY MECHANIC, BOWLING ALLEY MECHANIC-C Attending Provider Active Start: March 31, 2024 End: March 31, 2024 Jyothi Lowery BOWLING ALLEY MECHANIC, BOWLING ALLEY MECHANIC-C Referring Provider Active Start: March 31, 2024 [...] 2024 End: July 14, 2024 Jyothi Lowery BOWLING ALLEY MECHANIC, BOWLING ALLEY MECHANIC-C Attending Provider Active Start: July 14, 2024 End: July 14, 2024 Event Staff Relationship Specialty Start Date End Date Ashlee Lanier MD [address] [place] [address] PCP - General Internal Medicine 11/17/23 Event Staff Relationship Specialty Start Date End Date Ashlee Lanier MD [address] [facility] [address] [place] [address] PCP - General Internal Medicine 03/04/23 Oskar Ocampo MD [address] [facility] [place] [address] Pulmonary Disease 03/04/23 Team Status: Active Member Role/Relationship Status Dates Dr. Ashlee Lanier MD Primary Care Provider Active Team Status: Inactive Member Role/Relationship Status Dates Dr. Ashlee Lanier MD Primary Care Provider Active Start: June 24, 2024 End: June 24, 2024 Dr. Ashlee Lanier MD Attending Provider Active Start: June 24, 2024 End: June 24, 2024 Dr. Ashlee Lanier MD Referring Provider Active Start: June 24, 2024 End: June 24, 2024 Team Status: Inactive Member Role/Relationship Status Dates Dr. Ashlee Lanier MD Primary Care Provider Active Start: July 14, 2024 End: July 14, 2024 Dr. Ashlee Lanier MD Referring Provider Active Start: July 14, 2024 End: July 14, 2024 Jyothi Lowery NP, BOWLING ALLEY MECHANIC-C Attending Provider Active Start: July 14, 2024 End: July 14, 2024 Team Status: Active Member Role/Relationship Status Dates Dr. Ashlee Lanier MD Primary Care Provider Active Start: October 13, 2024 Dr. Norris Olmedo MD Admit Provider Active Star t: October 13, 2024 Dr. Norris Olmedo MD Attending Provider Active Start: October 13, 2024 Team Status: Active Member Role/Relationship Status Dates Dr. Ashlee Lanier MD Primary Care Provider Active Start: October 14, 2024 Dr. Norris Olmedo MD Attending Provider Active Start: October 14, 2024 Dr. Norris Olmedo MD Referring Provider Active Start: October 14, 2024 Team Status: Inactive Member Role/Relationship Status Dates Dr. Ashlee Lanier MD Primary Care Provider Active Start: October 17, 2024 End: October 17, 2024 Dr. Poncho Lira DO Emergency Provider Active Start: October 17, 2024 End: October 17, 2024 Team Status: Inactive Member Role/Relationship Status Dates Dr. Ashlee Lanier MD Primary Care Provider Active Start: October 14, 2024 End: October 14, 2024 Dr. Norris Olmedo MD Attending Provider Active Start: October 14, 2024 End: October 14, 2024 Dr. Norris Olmedo MD Referring Provider Active Start: October 14, 2024 End: October 14, 2024 Scheduled Active and Recently Administ ered Medications (unrecognized section and content) Medication Order 03/27/2022 03/28/2022 03/29/2022 heparin 1,000 Units in D5W 250 mL 1,000 Units, INTRA-ARTERIAL, ONE TIME, 1 dose, Starting on Fri03/29/22 at 0801, Until 03/30/22 at 0303, NOW (EMERGENT PROCEDURE) FOR PANEL SEWER USE ONLY, Intraprocedure heparin 3,000 Units in NaCl 0.9% 500 mL irrigation 3,000 Units, IRRIGATION, ONE TIME, 1 dose, Starting on Fri03/29/22 at 0801, Until 03/30/22 at 0303, NOW (EMERGENT PROCEDURE) FOR PANEL SEWER USE ONLY For Irrigation Use Only, Intraprocedure Scheduled Medication Order 03/19/2023 03/20/2023 03/21/2023 atorvastatin (Lipitor) tablet 80 mg 80 mg, oral, Nightly, First dose on Fri03/18/23 at 2100 2043 (Given - Provider: Key Perera RN) 1839 (MAR Hold - Provider: Automatic Transfer Provider - Reason: Unreviewed Transfer Orders)2013 (MAR Unhold - Provider: Kelvin Garcias MD)2029 (Given - Provider: Jaylyn Warren RN) 2100 (Due) bacitracin ointment Topical, 3 times daily, First dose on Fri03/18/23 at 1145, Apply to wounds 0950 (Given - Provider: Renetta Zapata RN)1631 (Given - Provider: Renetta Zapata RN - Comment: workflow)2044 (Given - Provider: Key Perera RN) 0906 (Given - Provider: Renetta Zapata RN)1611 (Given - Provider: Renetta Zapata RN)2030 (Given - Provider: Jaylyn Warren RN) 0917 (Given - Provider: Antoinette [...] Comment: given)1815 (Given - Provider: Any Potter RRT)1839 (MAR Hold - Provider: Automatic Transfer Provider - Reason: Unreviewed Transfer Orders)2013 (MAR Unhold - Provider: Kelvin Garcias MD) 0559 [...] Transfer Provider - Reason: Unreviewed Transfer Orders)2013 ([facility] Unhold - Provider: Kelvin Garcias MD) 0917 (Given - Provider: Antoinette Carrera RN) formoterol (Perforomist) 20 mcg/2 mL nebulizer solution 20 mcg 20 mcg, nebulization, 2 times daily RT, First dose on Fri03/18/23 at 0900 1019 (Given - Provider: Janet Hutton LABEL OPERATOR - Comment: give this med seperate from duoneb)1915 (Given - Provider: Any Potter RRT) 0759 (Given - Provider: Janet Hutton RRT)1807 (Given - Provider: Any Potter RRT)183 (MAR Hold - Provider: Automatic Transfer Provider - Reason: Unreviewed Transfer Orders)2013 ([facility] Unhold - Provider: Kelvin Garcias MD) 0559 (Given - Provider: Odette Valencia RRT)1800 (Due - Provider: Odette Valencia RRT) ipratropium-albuteroL (Duo-Neb) 0.5-2.5 mg/3 mL nebulizer solution 3 mL 3 mL, nebulization, Every 4 hours RT, First dose (after last modification) on Fri03/18/23 at 1500 0214 (Given - Provider: Idania Cadet RRT)0743 (Given - Provider: Janet Hutton RRT)1125 (Given - Provider: Daina Mcbride RN)1546 (Given - Provider: Janet Hutton RRT)2000 (Not Given - Provider: Any Potter RRT - Reason: Other - Comment: perforomist given instead)2234 (Given - Provider: Any Potter RRT) 0215 (Given - Provider: Kajal An RRT)0626 (Given - Provider: Janet Hutton RRT)1017 (Given - Provider: Janet Hutton RRT)1406 (Given - Provider: Janet Hutton RRT)1800 (Not Given - Provider: Any Potter RRT - Reason: Contraindicated - Comment: perforomist given instead)1839 (MAR Hold - Provider: Automatic Transfer Provider - Reason: Unreviewed Transfer Orders)2013 ([facility] Unhold - Provider: Kelvin Garcias MD)2229 (Given - Provider: Lj Germain RRT) 0208 (Given - Provider: Lj Germain RRT)0600 (Not Given - Provider: Odette Valencia, LABEL OPERATOR - Reason: Other - Comment: perforomist and pulmicort given in place of)0931 (Given - Provider: Odette Valencia, HIMANSHU)1406 (Given - Provider: Odette Valencia, HIMANSHU)1800 (Due - Provider: Any Potter RRT)2200 (Due [...] 0904 (Given - Provider: Renetta Zapata RN)1839 (MAR Hold - Provider: Automatic Transfer Provider - Reason: Unreviewed Transfer Orders)2013 ([facility] Unhold - Provider: Kelvin Garcias MD) 0917 (Given - Provider: Antoinette Carrera RN) piperacillin-tazobactam [...] Tissue 0007 (New Bag - Provider: Selma Marie, RN)0037 (Stopped - Provider: Selma Marie RN)0456 (New Bag - Provider: Selma Marie RN)0526 (Stopped - Provider: Selma Marie RN)1226 (New Bag - Provider: Renetta Zapata RN)1256 (Stopped - Provider: Renetta Zapata RN)1826 (New Bag - Provider: Renetta Zapata RN)1856 (Stopped - Provider: Renetta Zapata RN)2304 (New Bag - Provider: Renetta Chaparro RN)2334 (Stopped - Provider: Renetta Chaparro RN) 0457 (New Bag - Provider: Renetta Chaparro RN)0527 (Stopped - Provider: Renetta Chaparro RN)1249 (New Bag - Provider: Renetta Zapata RN - Comment: workflow)1319 (Stopped - Provider: Renetta Zapata RN)1830 (New Bag - Provider: Renetta Zapata RN)1900 (Stopped - Provider: Renetta Zapata RN)2344 (New Bag - Provider: Jaylyn Warren RN) 0014 (Stopped - Provider: Jaylyn Warren RN)0535 (New Bag - Provider: Jaylyn Warren RN)0605 (Stopped - Provider: Jaylyn Warren RN) polyethylene glycol (Glycolax, Miralax) packet 17 g 17 g, oral, Daily, First dose on Fri03/18/23 at 0900, Bowel Regimen - for prevention of constipation. 0900 (Not Given - Provider: Renetta Zapata RN - Reason: Patient/family refused) 0900 (Not Given - Provider: Renetta Zapata RN - Reason: Patient/family refused)183 (MAY Hold - Provider: Automatic Transfer Provider - Reason: Unreviewed Transfer Orders)2013 ([facility] Unhold - Provider: Kelvin Garcias MD) 0900 [...] 20 minutes. QID. Light dry sterile dressing. 1827 (Given - Provider: Renetta Zapata RN)2044 (Given - Provider: Key Perera RN) 0700 (Given - Provider: Renetta Zapata RN)1250 (Given - Provider: Renetta Zapata RN)1800 (Given - Provider: Renetta Zapata RN)2030 (Given - Provider: Jaylyn Warren RN) 0617 (Given - Provider: Jaylyn Warren RN)1426 (Given - Provider: Antoinette Carrera RN)1700 (Due)2100 (Due) predniSONE (Deltasone) tablet 40 mg 40 mg, oral, Daily, First dose on Fri03/18/23 at 0900 0950 (Given - Provider: Renetta Zapata RN) 0904 (Given - Provider: Renetta Zapata RN) 0916 (Given - Provider: Antointete Carrera RN) rivaroxaban (Xarelto) tablet 20 mg 20 mg, oral, Daily with evening meal, First dose on Fri03/18/23 at 1700, Best administered with food or immediately before tube feedings. If ordered via NG or G-tube route, crush and mix with 50 mL water; give within 4 hours of mixing. 1658 (Given - Provider: Renetta Zapata RN) 1712 (Given - Provider: Renetta Zapata RN)183 (MAY [...] Soft Tissue 1615 (New Bag - Provider: Reentta Zapata RN)1800 (Stopped - Provider: Renetta Zapata [...] Zapata RN) 1224 (Given - Provider: Abner Garcia, MURIEL)1839 (MAY Hold - Provider: Automatic Transfer Provider - Reason: Unreviewed Transfer Orders)2013 ([facility] Unhold - Provider: Kelvin Garcias MD)2047 (Given - Provider: Jaylyn Warren, MURIEL) 0418 (Given - Provider: Jaylyn Warren, RN) ipratropium-albuteroL (Duo-Neb) 0.5-2.5 mg/3 mL nebulizer solution 3 mL 3 mL, nebulization, Every 2 hour PRN, wheezing, shortness of breath, Starting on Fri03/18/23 at 1348 1839 (MAY Hold - Provider: Automatic Transfer Provider - Reason: Unreviewed Transfer Orders)2013 ([facility] Unhold - Provider: Kelvin Garcias MD) 0031 (Given - Provider: Lj Germain, LABEL OPERATOR)1206 (Given - Provider: Odette Valencia RRT) ondansetron (Zofran) injection 4 mg 4 mg, intravenous, Every 4 hours PRN, nausea/vomiting, first line, Starting on Fri03/19/23 at 0125, When administering via IV Push, administer over 3-5 minutes. 0142 (Given - Provider: Selma Marie RN) 183 (MAY Hold - Provider: Automatic Transfer Provider - Reason: Unreviewed Transfer Orders)2013 ([facility] Unhold - Provider: Kelvin Garcias MD) oxygen (O2) therapy inhalation, Continuous PRN - O2/gases, other, Starting on Fri03/17/23 at 2227, Device: Nasal Cannula, Rate in liters per minute: Other, Custom Value: 1-6 0216 (Start - Provider: Idania Cadet LABEL OPERATOR)0745 (Rate/Dose Verify - Provider: Janet Hutton RRT)1023 (Rate/Dose Verify - Provider: Janet Hutton RRT)1129 (Rate/Dose Verify - Provider: Daina Mcbride RN)1130 (Rate/Dose Verify - Provider: Daina Mcbride RN)1933 (Rate/Dose Verify - Provider: Any Potter, LABEL OPERATOR) 0215 (Rate/Dose Verify - Provider: Kajal An, LABEL OPERATOR)0628 (Rate/Dose Verify - Provider: Janet Hutton RRT)1017 (Rate/Dose Verify - Provider: Janet Hutton, HIMANSHU)1409 (Rate/Dose Verify - Provider: Janet Hutton, HIMANSHU) 0559 (Stopped - Provider: Odette Valencia RRT) No Frequency Medication Order 03/19/2023 03/20/2023 03/21/2023 hydrogen peroxide external solution - Omnicell Override Pull (COMPLETED) Starting on Fri03/19/23 at 1608, For 1 dose, Created by cabinet override 1830 (Given - Provider: Renetta Zapata RN - [...] for use: DOAC reversal for life-threatening bleed 0135 (Due)0205 (Rate/Dose Verify - Provider: Melquiades Juárez RN)0249 (Stopped - Provider: Margarito Felton, MURIEL) iohexol (OMNIPaque) 350 mg iodine/mL solution 69 mL (COMPLETED) 69 mL, intravenous, Once in imaging, Starting on Fri09/27/24 at 0036, For 1 dose 0039 (Given - Provid er: Melissa Brewer) ipratropium-albuteroL (Duo-Neb) 0.5-2.5 mg/3 mL nebulizer solution 3 mL (COMPLETED) 3 mL, nebulization, Once, On 09/26/24 at 2320, For 1 dose 2318 (Given - Provider: Lj Germain, HIMANSHU) piperacillin-tazobactam (Zosyn) 4.5 g in dextrose (iso) [...] Pneumonia, Type of Therapy: Empiric, Indications: Pneumonia 0058 (New Bag - Provider: Kiera Murillo RN - Comment: was in CT then issues getting cultures)0059 (Restarted - Provider: Kiera Murillo RN)0143 (Stopped - Provider: Kiera Murillo RN) sodium chloride 0.9 % bolus 500 mL (COMPLETED) 500 mL, intravenous, at 500 mL/hr, Administer over 1 Hours, Once, On Fri09/26/24 at 2320, For 1 dose 2327 (New Bag - Provider: Kiera Murillo RN) 0100 (Stopped - Provider: Kiera Murillo RN) sodium chloride 0.9 % bolus 500 mL (COMPLETED) 500 mL, intravenous, at 500 mL/hr, Administer over 1 Hours, Once, On Fri09/27/24 at 0015, For 1 dose 0102 (New Bag - Provider: Kiera Murillo RN)0143 (Stopped - Provider: Kiera Murillo RN) PRN Medication Order 09/25/2024 09/26/2024 09/27/2024 oxygen (O2) therapy 1 Dose, inhalation, As needed, oxygen, Starting on Fri09/26/24 at 2321, May use oxymask if needed, Device: Nasal Cannula, Rate in liters per minute: 2 LPM, Keep O2 Sat Above: 90% 232 (Start - Provider: Lj Germain, LABEL OPERATOR) No Frequency Medication Order 09/25/2024 09/26/2024 [...] BE BASED ON THE PRIMARY CLINICAL RECORDS. [facility] [employer] [facility]. provides no warranty or guarantee of the accuracy or completeness of information in this document.
--- NOTE | 2024-10-30 14:45 | CT_ITS ---
PROCEDURE: CHEST WITHOUT CONTRAST 10/30/2024 REASON FOR EXAM: LUNG CA TECHNIQUE: Chest CT without contrast. Coronal and Sagittal reconstruction series were provided. One or more dose reduction techniques were used (e.g., Automated exposure control, adjustment of the mA and/or kV according to patient size, use of iterative reconstruction technique RADIATION DOSE SUMMARY: CTDlvol: 9.45 mGy DLP: 382.55 mGycm COMPARISON: None. FINDINGS: Lower neck:The thyroid gland is diminutive. There is no supraclavicular lymphadenopathy. Mediastinum:No abnormal masses or lymphadenopathy. Heart and Vasculature:The heart size is normal. There is no pericardial effusion. 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 There is aneurysmal dilatation of the ascending thoracic aorta measuring 4.2 cm in diameter. Esophagus:There is a small hiatal hernia. Upper Abdomen:There is calcific vascular disease of the visualized abdominal aorta. There is an infrarenal aortic stent. There are benign calcified splenic granulomas. There is a large amount of stranding of the perinephric fat and thickening of the anterior and posterior pararenal fascia on the left. There is no evidence of hydronephrosis or renal parenchymal edema. Chest wall:The soft tissues of the chest wall appear unremarkable. There is no axillary lymphadenopathy. There are Schmorl's nodes at multiple vertebral endplates of the lower thoracic spine. Lungs, airways and pleura: There is pleural-parenchymal scarring in both lung apices. There is moderate upper lobe predominant centrilobular emphysema. There is scarring or atelectasis in the right lung base. There is atelectasis or scarring in the middle lobe of the right lung. There is linear scarring in the inferior segment of the lingula. There are no pulmonary nodules or masses. There are no pleural effusions. CT/Chest without Contrast IMPRESSION: 1. Emphysema. 2. Scarring or atelectasis in the middle lobe of the right lung. 3. There are no pulmonary nodules or masses. 4. There is calcific vascular disease. 5. There is aneurysmal dilatation of the ascending thoracic aorta. 6. Other findings as noted. Reading Location: [id number]
== END | disposition home or self-care (01) ==
PROVIDERS: PCP Internal Medicine; Referring Provider Family Medicine Geriatric Medicine; Visit Provider Family Medicine Geriatric Medicine
DX: C34.90 Malignant neoplasm of unspecified part of unspecified bronchus or lung (principal)
CPT/HCPCS: 71250

== ENCOUNTER → 2024-11-23 | Outpatient (CLI) | payer MEDICARE, OTHER, SELFPAY ==
[2024-11-23 14:10] LABS: Hematocrit 34.9 % (40-54); Hemoglobin 10.9 g/dL (13.0-16.5); POSITIVE MORPHOLOGY YES
== END | disposition home or self-care (01) ==
LOC: LAB 13:20
PROVIDERS: PCP Internal Medicine; Referring Provider Internal Medicine; Visit Provider Internal Medicine
DX: D64.9 Anemia, unspecified (principal)
CPT/HCPCS: 36415; 85014; 85018

== ENCOUNTER → 2024-12-16 | Outpatient (CLI) | payer MEDICARE, OTHER, SELFPAY ==
--- NOTE | 2024-12-16 10:08 | RAD_ITS ---
PROCEDURE: CHEST PA AND LATERAL 12/16/2024 REASON FOR EXAM: COPD, LEFT EFFUSION, SOB TECHNIQUE: Procedure Code: RADCXR Modality: DX Procedure: CHEST PA AND LATERAL COMPARISON: October 30, 2024 FINDINGS: Hardware: None Heart: Normal-size. Coronary artery stent is present. Mediastinum: The mediastinal contour is unremarkable. Lungs: Severe emphysema is seen. Linear scarring right lower lobe. Granuloma is seen in the right upper lobe. Bones: Degenerative changes are identified within the thoracic spine. RAD/Chest PA and Lateral IMPRESSION: 1. Severe emphysema. Benign granuloma right upper lobe. Reading Location: [id number]
== END | disposition home or self-care (01) ==
LOC: RAD 10:04
PROVIDERS: PCP Internal Medicine; Referring Provider Internal Medicine; Visit Provider Internal Medicine
DX: J90 Pleural effusion, not elsewhere classified (principal); J44.9 Chronic obstructive pulmonary disease, unspecified; R53.83 Other fatigue
CPT/HCPCS: 71046